=== PATIENT | female | born 1970 | race Caucasian/White ===

== ENCOUNTER 2023-03-21 08:57 | Outpatient (OUT) | payer BC, SELFPAY ==
--- NOTE | 2023-03-21 | XR_ITS ---
The [address] [address] Patient Name: NAN HANNA MRN: [id number] date: 1970 Sex: F Assigned Patient Location: [facility] Current Patient Location: [facility] Accession/Order Number: [id number] Exam Date: 03/21/2023 08:40 Report Date: 03/21/2023 09:29 At the request of: CYNDI CHEW Procedure: XR foot RT min 3V PROCEDURE: XR foot RT min 3V COMPARISON: None. HISTORY: RIGHT FOOT PAIN FINDINGS: BONES:No acute fracture or dislocation. Moderate to severe osteoarthropathy posterior talocalcaneal joint SOFT TISSUES:Negative. No visible soft tissue swelling. EFFUSION:None visible. OTHER: Negative. XR/XR foot RT min 3V IMPRESSION: Moderate to severe osteoarthritis posterior talocalcaneal joint Electronically authenticated by: MARKO BOWDEN Date: 03/21/2023 09:29
== END 2023-03-21 08:58 | disposition home or self-care (01) ==
PROVIDERS: Visit Provider Podiatrist Foot & Ankle Surgery
DX: M79.671 Pain in right foot (principal); M19.071 Primary osteoarthritis, right ankle and foot
CPT/HCPCS: 73630

== ENCOUNTER 2023-05-04 08:52 | Outpatient (OUT) | payer BC, SELFPAY ==
--- NOTE | 2023-05-04 08:59 | XR_ITS ---
The [address] [address] Patient Name: NAN HANNA MRN: [id number] date: 1970 Sex: F Assigned Patient Location: [facility] Accession/Order Number: [id number] Exam Date: 05/04/2023 09:55 Report Date: 05/04/2023 10:12 At the request of: CYNDI CHEW Procedure: XR chest 2V EXAM: XR chest 2V HISTORY: Preop exam COMPARISON: None. TECHNIQUE: PA and lateral views of the chest. FINDINGS: The cardiomediastinal silhouette is normal. No focal consolidation is identified. There is no pneumothorax. No pleural effusion is noted. The osseous structures are intact. XR/XR chest 2V IMPRESSION: No acute cardiopulmonary process. Electronically authenticated by: ELIA SCHMIDT Date: 05/04/2023 10:12
[2023-05-04 09:46] LABS: Basophils Absolute Auto 0.1 10^3/uL (0.0-0.1); Basophils Percent Auto 0.8 % (0.2-2.0); Eosinophils Absolute Auto 0.3 10^3/uL (0.0-0.7); Eosinophils Percent Auto 2.8 % (0.9-7.0); Hematocrit 40.6 % (36.0-48.0); Hemoglobin 13.5 g/dL (12.0-16.0); Immature Granulocytes Pct Auto 0.9 % (0.0-0.5); Lymphocytes Absolute Auto 2.2 10^3/uL (1.2-3.8); Lymphocytes Percent Auto 20.4 % (20.5-60.0); Mean Corpuscular HGB Conc 33.3 g/dL (29.9-35.2); Mean Corpuscular Hemoglobin 31.5 pg (26.7-34.0); Mean Corpuscular Volume 94.6 fL (81.0-99.0); Mean Platelet Volume 10.1 fL (9.5-13.5); Monocytes Absolute Auto 0.7 10^3/uL (0.3-0.8); Neutrophils Absolute Auto 7.2 10^3/uL (1.4-6.5); Neutrophils Percent Auto 68.1 % (43.0-75.0); Platelet Count 292 10^3/uL (150-450); Red Blood Count 4.29 10^6/uL (4.20-5.40); Red Cell Distribution Width 12.9 % (11.0-15.0); White Blood Count 10.6 10^3/uL (4.0-11.0)
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
[2023-05-04 10:02] LABS: INR 1.02; Partial Thromboplastin Time 31.4 sec (22.3-36.2); Prothrombin Time 10.8 sec (9.0-11.6)
[2023-05-04 10:17] LABS: Anion Gap 14.5; Carbon Dioxide 29.1 mmol/L (21.0-32.0); Chloride 102 mmol/L (98-107); Estimated GFR (African America >60 (>=60); Estimated GFR (Non-African Ame >60 (>=60); Glucose 111 mg/dL (74-106); Potassium 4.6 mmol/L (3.5-5.1); Sodium 141 mmol/L (136-145)
== END 2023-05-04 08:53 | disposition home or self-care (01) ==
PROVIDERS: Visit Provider Podiatrist Foot & Ankle Surgery
DX: Z01.810 Encounter for preprocedural cardiovascular examination (principal); Z01.812 Encounter for preprocedural laboratory examination; M19.171 Post-traumatic osteoarthritis, right ankle and foot; M21.171 Varus deformity, not elsewhere classified, right ankle; I48.91 Unspecified atrial fibrillation; I25.10 Atherosclerotic heart disease of native coronary artery without angina pectoris
CPT/HCPCS: 36415; 71046; 80048; 85025; 85610; 85730; G0463

== ENCOUNTER 2023-05-15 11:43 | Observation (INO) | payer BC, SELFPAY ==
[2023-05-04 09:37] VITALS: BP 140/79; PULSE 76; RESP 20; TEMP 36.1; O2SAT 94; BMI 37.9
[2023-05-14] VITALS (22 sets, daily range): BP systolic 96–140; BP diastolic 50–86; PULSE 59–93; RESP 12–20; TEMP 36–36.8; O2SAT 88–99; BMI 37.8; BMI 30.2
--- NOTE | 2023-05-14 | FL_ITS ---
[address] [address] Patient Name: NAN HANNA MRN: [id number] date: 1970 Sex: F Assigned Patient Location: [facility] Current Patient Location: [place] Accession/Order Number: [id number] Exam Date: 05/14/2023 12:29 Report Date: 05/15/2023 08:13 At the request of: CYNDI CHEW Procedure: FL fluoroscopy <1hr NON-READ EXAM: FL fluoroscopy <1hr NON-READ HISTORY: IMAGING IN OR, RIGHT FOOT PAIN TECHNIQUE: FINDINGS: Please see Operative Report. Electronically authenticated by: RADIOLOGIST NO Date: 05/15/2023 08:13
[2023-05-14 09:11] LABS: Basophils Absolute Auto 0.1 10^3/uL (0.0-0.1); Basophils Percent Auto 0.7 % (0.2-2.0); Eosinophils Absolute Auto 0.3 10^3/uL (0.0-0.7); Eosinophils Percent Auto 3.3 % (0.9-7.0); Hemoglobin 12.8 g/dL (12.0-16.0); Immature Granulocytes Abs Auto 0.03 10^3/uL (0.00-0.03); Immature Granulocytes Pct Auto 0.4 % (0.0-0.5); Lymphocytes Absolute Auto 1.8 10^3/uL (1.2-3.8); Lymphocytes Percent Auto 21.9 % (20.5-60.0); Mean Corpuscular HGB Conc 32.8 g/dL (29.9-35.2); Mean Corpuscular Hemoglobin 31.2 pg (26.7-34.0); Mean Corpuscular Volume 95.1 fL (81.0-99.0); Mean Platelet Volume 10.2 fL (9.5-13.5); Monocytes Absolute Auto 0.7 10^3/uL (0.3-0.8); Monocytes Percent Auto 8.3 % (1.7-12.0); Neutrophils Absolute Auto 5.4 10^3/uL (1.4-6.5); Neutrophils Percent Auto 65.4 % (43.0-75.0); Platelet Count 268 10^3/uL (150-450); Red Cell Distribution Width 12.8 % (11.0-15.0); White Blood Count 8.3 10^3/uL (4.0-11.0)
[2023-05-14 09:20] LABS: Glucometer 97 mg/dL (74-106)
[2023-05-14] MEDS: LACTATED RINGER'S SOLUTION 1,000 ML 50 ML IV ×2 (09:36→13:29)
[2023-05-14] MEDS: SCOPOLAMINE 1 MG/3 DAYS TRANSDERM PATCH 1 PATCH TD (09:55)
[2023-05-14] MEDS: CEFAZOLIN SODIUM/DEXTROSE,ISO 2 GM/50 ML PIGGYBACK IV ×2 (11:28→18:20)
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
[2023-05-14] MEDS: THROMBI-GEL SIZE 40 HEMOSTAT 1 EACH TOPICAL (13:15)
[2023-05-14 15:42] LABS: Glucometer 104 mg/dL (74-106)
--- NOTE | 2023-05-14 15:49 | XR_ITS ---
The [address] [address] Patient Name: NAN HANNA MRN: [id number] date: 1970 Sex: F Assigned Patient Location: [facility] Current Patient Location: [place] Accession/Order Number: [id number] Exam Date: 05/14/2023 17:55 Report Date: 05/16/2023 07:23 At the request of: DEIRDRE VO Procedure: XR foot RT min 3V PROCEDURE: XR ankle RT min 3V, XR foot RT min 3V HISTORY: Postop x-ray COMPARISON: XR foot right 03/21/2023 FINDINGS: BONES:Posterior calcaneal osteotomy and realignment. Fusion of the talocalcaneal joint via 3 lag screws. Osteotomy and bone staple repair of base of first metatarsal. Bone harvesting from distal tibia. SOFT TISSUES:Expected postsurgical findings. Images were obtained to cast material which limits evaluation. EFFUSION:None visible. OTHER: Negative. XR/XR foot RT min 3V IMPRESSION: 1. Postoperative surgical changes as detailed above. Electronically authenticated by: GENARO MICHELLE Date: 05/16/2023 07:23
--- NOTE | 2023-05-14 15:49 | XR_ITS ---
The [address] [address] Patient Name: NAN HANNA MRN: [id number] date: 1970 Sex: F Assigned Patient Location: [facility] Current Patient Location: [place] Accession/Order Number: [id number] Exam Date: 05/14/2023 17:55 Report Date: 05/16/2023 07:23 At the request of: DEIRDRE VO Procedure: XR ankle RT min 3V PROCEDURE: XR ankle RT min 3V, XR foot RT min 3V HISTORY: Postop x-ray COMPARISON: XR foot right 03/21/2023 FINDINGS: BONES:Posterior calcaneal osteotomy and realignment. Fusion of the talocalcaneal joint via 3 lag screws. Osteotomy and bone staple repair of base of first metatarsal. Bone harvesting from distal tibia. SOFT TISSUES:Expected postsurgical findings. Images were obtained to cast material which limits evaluation. EFFUSION:None visible. OTHER: Negative. XR/XR ankle RT min 3V IMPRESSION: 1. Postoperative surgical changes as detailed above. Electronically authenticated by: GENARO MICHELLE Date: 05/16/2023 07:23
[2023-05-14] MEDS: HYDROMORPHONE HCL 0.5 MG/0.5 ML SYRINGE IV (15:50)
[2023-05-14] MEDS: OXYCODONE HCL 5 MG TABLET 10 MG PO (16:21)
[2023-05-14] MEDS: LACTATED RINGER'S SOLUTION 1,000 ML 75 ML IV (16:31)
[2023-05-14] MEDS: FLECAINIDE ACETATE 50 MG TABLET 100 MG PO (18:20)
[2023-05-14] MEDS: ENOXAPARIN SODIUM 40 MG/0.4 ML SYRINGE SUBQ (20:57)
[2023-05-14] MEDS: PREGABALIN 75 MG CAPSULE PO (20:57)
[2023-05-14] MEDS: OXYCODONE HCL 5 MG TABLET PO (22:46)
[2023-05-15] VITALS (15 sets, daily range): BP systolic 92–101; BP diastolic 54–58; PULSE 68–91; RESP 18–20; TEMP 36.8–37.3; O2SAT 94–97
[2023-05-15] MEDS: CEFAZOLIN SODIUM/DEXTROSE,ISO 2 GM/50 ML PIGGYBACK IV ×2 (00:50→08:52)
[2023-05-15] MEDS: MORPHINE SULFATE 2 MG/ML SYRINGE 1 MG IV (03:08)
[2023-05-15] MEDS: KETOROLAC TROMETHAMINE 30 MG/ML VIAL IVP ×3 (03:54→20:26)
[2023-05-15] MEDS: FLECAINIDE ACETATE 50 MG TABLET 100 MG PO ×2 (05:52→18:14)
[2023-05-15] MEDS: OXYCODONE HCL 15 MG TABLET PO ×2 (05:55→16:38)
[2023-05-15] MEDS: LACTATED RINGER'S SOLUTION 1,000 ML 50 ML IV (06:01)
--- NOTE | 2023-05-15 08:18 | PM.PN ---
Progress Note: Subjective Subjective Interval history: Patient seen at bedside this a.m. resting somewhat comfortably. POD #1 s/p right subtalar joint fusion, ankle arthroscopy, lateral displacement calcaneal osteotomy, dorsiflexion 1st ray osteotomy, peroneal tendon transfer, modified Brostrom Gandhi lateral ankle stabilization, harvest of distal tibial bone graft, stress examination under intraoperative fluoroscopy, application of short leg splint. DOS 05/14/2023. Patient states that the block worn off overnight with considerable pain overnight despite IV Dilaudid and Toradol. Rated as 10 out of 10 this a.m. primarily at the anterior ankle. Denies any other acute events overnight, denies any other acute lower extremity complaints at this time.. Exam Narrative Exam Narrative: RLE splint left CDI. Vascular: CFT intact to digits. Skin temperature warm symmetric proximal and distal to dressing. No erythema or edema proximal to dressing. Neuro: Light touch sensation intact to digits. Derm: RLE splint left CDI. No open lesions proximal distal dressing. MSK: Active and passive range of motion digits present. Compartments are soft compressible with no pain upon calf or thigh compression. Constitutional Vital Signs, click to edit/add: Last Vital Signs Temp 98.3 F 05/15/23 05:47 Pulse 72 05/15/23 05:47 Resp 20 05/15/23 05:47 BP 101/55 05/15/23 05:47 Pulse Ox 94 L 05/15/23 05:58 O2 Del Method Room Air 05/15/23 05:47 Progress Note: Objective Labs Labs: Short CBC 05/14/23 Range/Units 09:07 WBC 8.3 (4.0-11.0) 10^3/uL Hgb 12.8 (12.0-16.0) g/dL Hct 39.0 (36.0-48.0) % Plt Count 268 (150-450) 10^3/uL Progress Note: A&P Assessment and Plan (1) Osteoarthritis of right ankle and foot: (2) Varus deformity of foot: (3) Displaced intraarticular fracture of right calcaneus, sequela: Plan Patient examined evaluated. All findings discussed with patient all questions answered to patient's satisfaction. Labs and imaging reviewed. RLE dressing to remain CDI until follow-up. Maintain nonweightbearing to right lower extremity. PT eval pending for today SW on board for DC coordination. Patient anticipating DC home. Goal for today is pain control and PT eval. Anticipate DC home once pain controlled with p.o. meds and eval completed. Continue IV Dilaudid 0.5 once as needed for breakthrough pain. aim to control with p.o. oxycodone. Rest per primary. Will continue to follow, call with any questions or concerns.
[2023-05-15] MEDS: ACETAMINOPHEN 500 MG TABLET 1000 MG PO ×2 (08:32→18:06)
[2023-05-15] MEDS: METOPROLOL SUCCINATE 25 MG TAB.ER.24H PO (08:36)
[2023-05-15] MEDS: ASPIRIN 81 MG TABLET.DR PO (08:43)
[2023-05-15] MEDS: SERTRALINE HCL 50 MG TABLET PO (08:44)
[2023-05-15] MEDS: OMEPRAZOLE 40 MG CAPSULE.DR PO (08:44)
[2023-05-15] MEDS: SOLIFENACIN SUCCINATE 10 MG TABLET PO (08:45)
[2023-05-15] MEDS: MAGNESIUM OXIDE 400 MG TABLET PO (08:47)
[2023-05-15] MEDS: PREGABALIN 75 MG CAPSULE PO ×2 (08:52→20:26)
[2023-05-15] MEDS: FERROUS SULFATE 325 MG TABLET PO (08:52)
[2023-05-15] MEDS: HYDROMORPHONE HCL 1 MG/ML CARTRIDGE 0.5 MG IVP (10:32)
--- NOTE | 2023-05-15 11:37 | P.HP_ITS ---
Patient seen and examined, agree with assessment and plan below. Admitted after ankle reconstruction. Significant post-op pain requiring IV medication. Continue PT for NWB. Diagnosis: 1. Post-traumatic OA right ankle 2. PVC 3. Stress incontinence 4. Depression H&P: HPI History of Present Illness Chief complaint: post traumatic osteoarthritis right Narrative: Date/time of exam 05/15/23 1020 This is a 52-year-old female patient of Dr. Correa'shila who underwent a right ankle arthroscopy and subtalar joint fusion yesterday afternoon. She was admitted under the hospitalist service overnight for observation and pain management postoperatively. At the time of my exam the patient is resting in bed visiting with her spouse. Nursing reports that she has been very tearful all morning with very poor pain control with the prescribed oxycodone per the podiatry service. Otherwise she denies any complaints including no chest pain, shortness of breath, dizziness, abdominal pain, or N/V/D. We will order IVP breakthrough pain medication pending pain management review by the podiatry serv ice. Review of Systems ROS Status of ROS 10 or more systems reviewed and unremarkable except as noted in history and below [facility] Medical History (Updated 05/15/23 @ 12:01 by Diann Coley NP) Anxiety ?F41.9 - Anxiety disorder, unspecified (ICD-10) Bronchitis ?J40 - Bronchitis, not specified as acute or chronic (ICD-10) Cardiac arrhythmia ?I49.9 - Cardiac arrhythmia, unspecified (ICD-10) COVID-19 ?U07.1 - COVID-19 (ICD-10) Depression ?F32.A - Depression, unspecified (ICD-10) Displaced intraarticular fracture of right calcaneus, sequela ?S92.061S - Displaced intraarticular fracture of right calcaneus, sequela (ICD-10) Heartburn ?R12 - Heartburn (ICD-10) Menopause ?Z78.0 - Asymptomatic menopausal state (ICD-10) Osteoarthritis of right ankle and foot ?M19.071 - Primary osteoarthritis, right ankle and foot (ICD-10) PAC (premature atrial contraction) ?I49.1 - Atrial premature depolarization (ICD-10) Palpitations ?R00.2 - Palpitations (ICD-10) Peroneal tendinitis ?M76.70 - Peroneal tendinitis, unspecified leg (ICD-10) Postoperative nausea and vomiting ?R11.2 - Nausea with vomiting, unspecified (ICD-10) ?Z98.890 - Other specified postprocedural states (ICD-10) Seasonal allergies ?J30.2 - Other seasonal allergic rhinitis (ICD-10) Stress incontinence ?N39.3 - Stress incontinence (female) (male) (ICD-10) 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, unspecified foot (ICD- 10) Surgical History History of carpal tunnel release ?Z98.890 - Other specified postprocedural states (ICD-10) History of section ?Z98.891 - History of uterine scar from previous surgery (ICD-10) History of cholecystectomy ?Z90.49 - Acquired absence of other specified parts of digestive tract (ICD- 10) History of tubal ligation ?Z98.51 - Tubal ligation status (ICD-10) Family History Mother Family history of cancer Other Family history of lung cancer Social History Within the past year, how often did you have a drink containing alcohol: never Score interpretation: A score less than 3 is consistent with normal alcohol consumption. 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 Highest level of school completed/degree received: high school graduate Gender Identity: female Meds Home Medications and Allergies Home Medications Medication Instructions Recorded Confirmed Type aspirin 81 mg tablet,delayed 81 mg PO DAILY 05/04/23 05/14/23 History release (Adult Aspirin Regimen) cetirizine 10 mg tablet (Zyrtec) 10 mg PO DAILY PRN allergy symptoms 05/04/23 05/14/23 History cholecalciferol (vitamin D3) 125 125 mcg PO DAILY 05/04/23 05/14/23 History mcg (5,000 unit) capsule ferrous sulfate 325 mg (65 mg 325 mg PO DAILY 05/04/23 05/14/23 History iron) tablet (Feosol) flecainide 100 mg tablet 100 mg PO Q12H 05/04/23 05/14/23 History lysine 500 mg capsule 500 mg PO QDAY 05/04/23 05/14/23 History magnesium 200 mg tablet 400 mg PO DAILY 05/04/23 05/14/23 History jvvoqnzy-jbsb-ohnn 8 mg-folic 400 1 tab PO DAILY 05/04/23 05/14/23 History mcg-K 50 mcg-lutein 300 mcg tablet (Centrum Silver Women) omeprazole 40 mg capsule,delayed 40 mg PO DAILY 05/04/23 05/14/23 History release sertraline 50 mg tablet 50 mg PO DAILY 05/04/23 05/14/23 History solifenacin 10 mg tablet (Vesicare) 10 mg PO DAILY 05/04/23 05/14/23 History vitamin B complex (Complex B-100 1 tab PO DAILY 05/04/23 05/14/23 History tablet,extended release) metoprolol succinate 25 mg 25 mg PO DAILY 05/14/23 05/14/23 History tablet,extended release 24 hr (Toprol XL) Allergies Allergy/AdvReac Type Severity Reaction Status Date / Time shellfish derived Allergy Anaphylaxis Verified 05/04/23 09:13 Exam Constitutional Vital Signs, click to edit/add: Last Vital Signs Temp 98.3 F 05/15/23 05:47 Pulse 72 05/15/23 05:47 Resp 20 05/15/23 08:00 BP 101/55 05/15/23 05:47 Pulse Ox 94 L 05/15/23 05:58 O2 Del Method Room Air 05/15/23 05:47 Common normals: no apparent distress, oriented x3, alert and well nourished General appearance: cooperative Orientation/consciousness: Yes awake [facility] Common normals: normocephalic, head/scalp atraumatic, hearing grossly normal bilaterally, external nose normal and moist oral mucous membranes Eye Common normals: PERRL, EOMs intact bilaterally, conjunctivae normal and no scleral icterus Eyelid: eyelids normal Neck & C-Spine Common normals: full ROM, supple and no JVD Chest Common normals: inspection of chest normal Chest: symmetrical chest wall rise Respiratory Common normals: normal respiratory effort, no retractions, no use of accessory muscles and clear to auscultation bilaterally Effort & inspection: able to speak in complete sentences Cardio Common normals: no JVD, regular rate, regular rhythm, S1 normal heart sound, S2 normal heart sound (Snap), no gallops, no clicks, no rub and peripheral pulses 2+ throughout GI Common normals: Normal to inspection, nondistended, normoactive bowel sounds present, soft to palpation, non-tender, no hepatosplenomegaly, no masses and no bruits Bladder/kidney exam: bladder normal to palpation Back & Pelvis Common normals: thoracic and lumbar spine normal to inspection Extremity Common normals: normal capillary refill and no pedal edema General: normal exam except as noted; no clubbing and no cyanosis Right lower extremity: lower leg (Surgical dressing D&I. CMS intact) Neuro [place] Coma Scale: GCS not evaluated Common normals: oriented x3, CN's II-XII intact bilaterally, moves all extremities, no focal motor deficits and no sensory deficits noted Sensorium/orientation: awake and alert Speech: speech normal Psych Common normals: mental status grossly normal, thought process normal, affect normal and activity/motor behavior normal Results Pulse Oximetry Attestation: I have reviewed the pertinent pulse oximetry results. Assessment and Plan Assessment and Plan (1) Osteoarthritis of right ankle and foot: Assessment and Plan: ACUTE * Adm observation * s/p operative repair per Dr Correa on 05/14/23 * Defer WB orders, surgical dressings, pain management to the podiatry service * Will order IVP breakthrough pain med now d/t severe uncontrolled pain pending re-eval of management regimen by the podiatry service (2) Cardiac arrhythmia: Assessment and Plan: CHRONIC * Continue home BB and flecainide * HR well controlled (3) Heartburn: Assessment and Plan: CHRONIC * Continue home PPI (4) Stress incontinence: Assessment and Plan: CHRONIC * Continue home Vesicare (5) Depression: Assessment and Plan: CHRONIC * Continue home sertraliine
--- NOTE | 2023-05-15 11:42 | CM.NOTE ---
Rounds made with Dr. Spain, adjusting medications for better pain control. Dr. Spain will discuss plan of care with Sunny for further recommendations.
[2023-05-15] MEDS: CEFAZOLIN SODIUM 2,000 MG in 0.9 % SODIUM CHLORIDE 50 ML 100 MG IV (16:46)
[2023-05-15] MEDS: ENOXAPARIN SODIUM 40 MG/0.4 ML SYRINGE SUBQ (20:26)
[2023-05-16] MEDS: KETOROLAC TROMETHAMINE 30 MG/ML VIAL IVP ×3 (02:34→14:05)
[2023-05-16] MEDS: LACTATED RINGER'S SOLUTION 1,000 ML 50 ML IV (02:35)
[2023-05-16] MEDS: OXYCODONE HCL 5 MG TABLET PO (04:07)
[2023-05-16 04:10] VITALS: BP 108/61; PULSE 74; RESP 18; TEMP 36.8; O2SAT 91
[2023-05-16 04:56] VITALS: O2SAT 94
[2023-05-16] MEDS: FLECAINIDE ACETATE 50 MG TABLET 100 MG PO (06:03)
[2023-05-16] MEDS: ACETAMINOPHEN 500 MG TABLET 1000 MG PO (06:10)
[2023-05-16 07:52] VITALS: RESP 18
[2023-05-16] MEDS: PREGABALIN 75 MG CAPSULE PO (08:00)
[2023-05-16] MEDS: FERROUS SULFATE 325 MG TABLET PO (08:01)
[2023-05-16] MEDS: MAGNESIUM OXIDE 400 MG TABLET PO (08:03)
[2023-05-16] MEDS: METOPROLOL SUCCINATE 25 MG TAB.ER.24H PO (08:03)
[2023-05-16] MEDS: OMEPRAZOLE 40 MG CAPSULE.DR PO (08:04)
[2023-05-16] MEDS: SOLIFENACIN SUCCINATE 10 MG TABLET PO (08:05)
[2023-05-16] MEDS: SERTRALINE HCL 50 MG TABLET PO (08:05)
--- NOTE | 2023-05-16 08:45 | PM.PN ---
Progress Note: Subjective Subjective Interval history: Patient seen at bedside this a.m. resting comfortably. POD #2 s/p right subtalar joint fusion, ankle arthroscopy, lateral displacement calcaneal osteotomy, dorsiflexion 1st ray osteotomy, peroneal tendon transfer, modified Brostrom Gandhi lateral ankle stabilization, harvest of distal tibial bone graft, stress examination under intraoperative fluoroscopy, application of short leg splint. DOS 05/14/2023. Patient states that pain much more controlled today. Denies any other acute events overnight, denies any other acute lower extremity complaints at this time.. Exam Narrative Exam Narrative: RLE splint left CDI. Vascular: CFT intact to digits. Skin temperature warm symmetric proximal and distal to dressing. No erythema or edema proximal to dressing. Neuro: Light touch sensation intact to digits. Derm: RLE splint left CDI. No open lesions proximal distal dressing. MSK: Active and passive range of motion digits present. Compartments are soft compressible with no pain upon calf or thigh compression. Constitutional Vital Signs, click to edit/add: Last Vital Signs Temp 98.3 F 05/16/23 04:10 Pulse 74 05/16/23 04:10 Resp 18 05/16/23 07:52 BP 108/61 05/16/23 04:10 Pulse Ox 94 L 05/16/23 04:56 O2 Del Method Room Air 05/16/23 04:56 Progress Note: A&P Assessment and Plan (1) Osteoarthritis of right ankle and foot: (2) Cardiac arrhythmia: (3) Heartburn: (4) Stress incontinence: (5) Depression: Plan Patient examined evaluated. All findings discussed with patient all questions answered to patient's satisfaction. Labs and imaging reviewed. RLE dressing to remain CDI until follow-up. Maintain nonweightbearing to right lower extremity. PT jimy LARIOS on board for DC coordination. Anticipate DC home today Remove stovall today Pain control w/ PO oxycodone and toradol PRN. Rest per primary. Stable to d/c from podiatry perspective once stovall removed and able to void Will continue to follow, call with any questions or concerns.
[2023-05-16 09:14] LABS: Basophils Absolute Auto 0.1 10^3/uL (0.0-0.1); Basophils Percent Auto 0.4 % (0.2-2.0); Eosinophils Absolute Auto 0.2 10^3/uL (0.0-0.7); Eosinophils Percent Auto 1.9 % (0.9-7.0); Hematocrit 31.8 % (36.0-48.0); Hemoglobin 10.5 g/dL (12.0-16.0); Immature Granulocytes Abs Auto 0.04 10^3/uL (0.00-0.03); Immature Granulocytes Pct Auto 0.3 % (0.0-0.5); Lymphocytes Absolute Auto 1.9 10^3/uL (1.2-3.8); Lymphocytes Percent Auto 16.3 % (20.5-60.0); Mean Corpuscular Hemoglobin 31.6 pg (26.7-34.0); Mean Corpuscular Volume 95.8 fL (81.0-99.0); Mean Platelet Volume 10.5 fL (9.5-13.5); Monocytes Absolute Auto 0.9 10^3/uL (0.3-0.8); Monocytes Percent Auto 7.8 % (1.7-12.0); Neutrophils Absolute Auto 8.4 10^3/uL (1.4-6.5); Neutrophils Percent Auto 73.3 % (43.0-75.0); Platelet Count 221 10^3/uL (150-450); Red Blood Count 3.32 10^6/uL (4.20-5.40); White Blood Count 11.5 10^3/uL (4.0-11.0)
[2023-05-16 09:32] LABS: Anion Gap 10.9; BUN Creatinine Ratio 12.2; Calcium 8.1 mg/dL (8.5-10.1); Carbon Dioxide 27.9 mmol/L (21.0-32.0); Chloride 104 mmol/L (98-107); Estimated GFR (African America >60 (>=60); Estimated GFR (Non-African Ame >60 (>=60); Glucose 160 mg/dL (74-106); Potassium 3.8 mmol/L (3.5-5.1); Sodium 139 mmol/L (136-145)
--- NOTE | 2023-05-16 10:11 | CM.NOTE ---
rounding with dr. gillespie, discussed importance of non-weight bearing. Plan to discharge this afternoon.
[2023-05-16 10:26] VITALS: O2SAT 96
--- NOTE | 2023-05-16 16:06 | P.DS_ITS ---
Patient seen and examined, agree with assessment and plan below. Did well after surgery. Pain controlled with medication. Moving well with PT and able to remain NWB. Discharged home in stable condition. F/u with podiatry. Diagnosis: 1. Post-traumatic OA right ankle 2. PVC 3. Incontinence 4. Depression DS: Providers Provider Date of admission: 05/15/23 11:43 Primary care physician: RIKY DENT Consults: 05/14/23 15:49 Consult to Production Checker Routine Reason for consult:: Care Home Other reason:: Possible SNF, anticipate DC home Physical Therapy Eval and Treat Routine Reason for consultation: postop gait eval/fall risk, nwb rle Discharging clinician: Diann Coley DS: Diagnosis Discharge Diagnosis (1) Osteoarthritis of right ankle and foot: (2) Cardiac arrhythmia: (3) Heartburn: (4) Stress incontinence: (5) Depression: DS: Summary Hospital Course Hospital Course: The patient was admitted to observation to the hospitalist service after Dr. Correa performed a right ankle reconstructive surgery. Her pain was initially poorly controlled but after adjustments were made to her dressings and pain management her pain improved. The patient is able to ambulate and maintain nonweightbearing to the affected ankle per instructions. As she is stable and her pain is adequately controlled, she is being discharged home. She should follow-up with Dr. Correa is recommended in his discharge instructions. Time Spent with Patient Time attestation: Total time spent providing and/or coordinating discharge services: Time spent: less than 30 minutes Specific discharge activities: Physical exam, discussion of discharge plan, questions answered. Exam Constitutional Vital Signs, click to edit/add: Last Vital Signs Temp 98.3 F 05/16/23 04:10 Pulse 74 05/16/23 04:10 Resp 18 05/16/23 07:52 BP 108/61 05/16/23 04:10 Pulse Ox 96 05/16/23 10:26 O2 Del Method Room Air 05/16/23 10:26 Common normals: no apparent distress, oriented x3 and alert General appearance: cooperative Orientation/consciousness: Yes awake [facility] Common normals: normocephalic and head/scalp atraumatic Eye Common normals: PERRL, EOMs intact bilaterally, conjunctivae normal and no scleral icterus Respiratory Common normals: normal respiratory effort, no use of accessory muscles and clear to auscultation bilaterally Effort & inspection: able to speak in complete sentences and symmetric chest movement Cardio Common normals: no JVD, regular rate, regular rhythm, S1 normal heart sound, S2 normal heart sound and peripheral pulses 2+ throughout GI Common normals: Normal to inspection, nondistended, normoactive bowel sounds present, soft to palpation and non-tender Bladder/kidney exam: bladder normal to palpation Extremity Common normals: normal to inspection, full ROM, normal capillary refill and no pedal edema General: no clubbing and no cyanosis Neuro Common normals: moves all extremities, no focal motor deficits and no sensory deficits noted Speech: speech normal Psych Common normals: mental status grossly normal and activity/motor behavior normal DS: Data Data Completed and Pending Labs on day of discharge: Labs from last 24 hours 05/16/23 09:04 WBC 11.5 H RBC 3.32 L Hgb 10.5 L Hct 31.8 L MCV 95.8 MCH 31.6 MCHC 33.0 RDW 13.0 Plt Count 221 MPV 10.5 Neut % (Auto) 73.3 Lymph % (Auto) 16.3 L Brooks % (Auto) 7.8 Eos % (Auto) 1.9 Baso % (Auto) 0.4 Neut # (Auto) 8.4 H Lymph # (Auto) 1.9 Brooks # (Auto) 0.9 H Eos # (Auto) 0.2 Baso # (Auto) 0.1 Abs Immat Gran (auto) 0.04 H Imm/Tot Granulo (auto) 0.3 Sodium 139 Potassium 3.8 Chloride 104 Carbon Dioxide 27.9 Anion Gap 10.9 BUN 11.0 Creatinine 0.90 Est GFR ( Amer) >60 Est GFR (Non-Af Amer) >60 BUN/Creatinine Ratio 12.2 Glucose 160 H Calcium 8.1 L Discharge Plan Discharge Disposition: Home, Self-Care Condition: Good Discharge Medications: New aspirin [Adult Low Dose Aspirin] 81 mg tablet,delayed release (DR/EC) 81 mg PO BID 30 Days Qty: 60 0RF cefadroxil 500 mg capsule 500 mg PO BID 3 Days Qty: 6 0RF alendronate [Fosamax] 70 mg tablet 70 mg PO QWEEK 84 Days Qty: 12 0RF oxycodone-acetaminophen [Percocet] 5-325 mg tablet 1 tab PO Q6H PRN (Reason: pain) 7 Days Qty: 28 0RF ondansetron 4 mg tablet,disintegrating 4 mg PO Q8H PRN (Reason: nausea and vomiting) 5 Days Qty: 15 0RF sennosides [Senna Laxative] 8.6 mg tablet 8.6 mg PO DAILY PRN (Reason: constipation) 7 Days Qty: 7 0RF tizanidine 2 mg tablet 2 mg PO TID PRN (Reason: muscle spasticity) 7 Days Qty: 21 0RF Continued solifenacin [Vesicare] 10 mg tablet 10 mg PO DAILY sertraline 50 mg tablet 50 mg PO DAILY aspirin [Adult Aspirin Regimen] 81 mg tablet,delayed release (DR/EC) 81 mg PO DAILY omeprazole 40 mg capsule,delayed release(DR/EC) 40 mg PO DAILY flecainide 100 mg tablet 100 mg PO Q12H Centrum Silver Women 8 mg iron-400 mcg-50 mcg tablet 1 tab PO DAILY ferrous sulfate [Feosol] 325 mg (65 mg iron) tablet 325 mg PO DAILY lysine 500 mg capsule 500 mg PO QDAY cholecalciferol (vitamin D3) 125 mcg (5,000 unit) capsule 125 mcg PO DAILY cetirizine [Zyrtec] 10 mg tablet 10 mg PO DAILY PRN (Reason: allergy symptoms) magnesium 200 mg tablet 400 mg PO DAILY Complex B-100 Tablet Extended Release 1 tab PO DAILY metoprolol succinate [Toprol XL] 25 mg tablet extended release 24 hr 25 mg PO DAILY Patient Instructions: Cefadroxil (By mouth), Aspirin (By mouth), Laxative, Stimulant (By mouth), Alendronate (By mouth) (Fosamax, Binosto), Ondansetron (By mouth, Into the mouth), Tizanidine (By mouth), Narcotic-Analgesic/Acetaminophen (By mouth) Activity Restrictions/Additional Instructions: - Remain NWB to affected leg until changed by Dr Correa Forms: Portal Instructions Follow Up Appointments: Follow up appt. with Dr. Correa on May.23 @ 10:30am office address: [address] [place] [address] Dr Luna [place] office #: [phone] Discharge Date/Time: 05/16/23 14:25
== END 2023-05-16 14:25 | disposition home or self-care (01) ==
LOC: SURGOUT 12:33 → MS 12:33
PROVIDERS: Podiatrist Foot & Ankle Surgery; Admitting Provider Nurse Practitioner; Visit Provider Nurse Practitioner
PROC: (CPT 20902; principal; 2023-05-14 10:30)
DX: M19.171 Post-traumatic osteoarthritis, right ankle and foot (principal); M21.171 Varus deformity, not elsewhere classified, right ankle; M21.071 Valgus deformity, not elsewhere classified, right ankle; M76.71 Peroneal tendinitis, right leg; M25.371 Other instability, right ankle; S92.061S Displaced intraarticular fracture of right calcaneus, sequela; I49.3 Ventricular premature depolarization; N39.3 Stress incontinence (female) (male); R12 Heartburn; F32.A Depression, unspecified; F41.9 Anxiety disorder, unspecified; Z86.16 Personal history of COVID-19; Z78.0 Asymptomatic menopausal state; Z90.49 Acquired absence of other specified parts of digestive tract; Z98.891 History of uterine scar from previous surgery; Z98.51 Tubal ligation status; Z98.890 Other specified postprocedural states; Z79.82 Long term (current) use of aspirin; Z79.899 Other long term (current) drug therapy; V89.2XXS Person injured in unspecified motor-vehicle accident, traffic, sequela
CPT/HCPCS: 20902; 27691; 27698; 28300; 28306; 28725; 29898; 77071; 36415; 64445; 73610; 73630; 76000; 80048; 82948; 85025; 88304; 94667; 94668; 94761; 96365; 96366; 96372; 96375; 96376; 97161; C1713; G0378; J1170; J2704

== ENCOUNTER 2023-06-06 10:38 | Outpatient (OUT) | payer BC, SELFPAY ==
--- NOTE | 2023-06-06 | XR_ITS ---
The [address] [address] Patient Name: NAN HANNA MRN: [id number] date: 1970 Sex: F Assigned Patient Location: [facility] Current Patient Location: Accession/Order Number: [id number] Exam Date: 06/06/2023 11:10 Report Date: 06/07/2023 07:52 At the request of: CYNDI CHEW Procedure: XR foot RT min 3V PROCEDURE: XR foot RT min 3V HISTORY: RIGHT FOOT PAIN COMPARISON: XR foot right 05/14/2023 FINDINGS: BONES:Posterior calcaneal osteotomy and repair. Mechanical fusion of the talocalcaneal joint. Osteotomy and bone staple repair of first metatarsal. No acute fracture dislocation. Prior bone harvesting from distal tibia. SOFT TISSUES:Mild soft tissue swelling surrounding the foot. Cast material has been removed. EFFUSION:None visible. OTHER: Negative. XR/XR foot RT min 3V IMPRESSION: 1. Stable surgical changes without evidence of hardware failure or change in alignment. Electronically authenticated by: GENARO MICHELLE Date: 06/07/2023 07:52
--- OUTSIDE RECORDS SUMMARY | 2023-06-06 10:48 | XMS_ITS | CCD ---
Author Name Unknown Address [address] [place] [address] Organization [facility] Care Team Providers Care Oil Expeller Name Role Phone Salima Gilman Unavailable Unavailable Salima Gilman Unavailable UnavailChristian Kessler Unavailable Unavailable Salima Gilman A Unavailable Unavailabl e Priscilla Leahy Unavailable Unavailable Maday Schmitz Unavailable Unavailable Salima Gilman Unavailable Unava ilable Celi Barrett Unavailable Unavailable Priscilla Leahy Unavailable Unavailable Ciaccia DO Simone Unavailable Unavailable Rell WALL Luna Unavailable Unavailable Salima Gilman MD Unavailable Unavailab Maday Bower Unavailable Unavaila ble Salima Gilman Unavailable Unavailabl e Celi Barrett Unavailable Unavailable Priscilla Leahy M Unavailable Unavailable Celi Barrett Unavailable Unavailable Priscilla Leahy Unavailable Unavailable Salima Gilman Unavailable [phone] Unavailable Unavailable SAMARA ROE Referring Unavailable GERRY SALMERON Primary Care Unavailable SALIMA GILMAN Primary Care Physician Kayla Dent Primary Care Physician [phone] CAMPBELL HERNANDEZ Consulting Unavailable KAYLA DENT Primary Care Unavailable CINTHIA ., MAGDA Admitting Unavailable CINTHIA ., MAGDA Attending Unavailable MARKO GARY Consulting Unavailable BONY SOLARES Consulting Unavailable CINTHIA ., MAGDA Consulting Unavailable Kayla Dent Unavailable Unavailable Unavailable Unavailable Kayla Dent Unavailable Mecca, Federico Unavailable Skip Kelly Unavailable Unavailable Wing, Federico Referring Unavailable Wing, Federico Attending Unavailable Olena, Dr. Kayla Hassan Primary Care Unavailab andree Gilman, Dr. Salima Myles Primary Care U [facility], MsFaby Winn Attending Unavailable Kalina, Dr. Salima Myles [facility], MsFaby Winn Attending Unavailable Olena, Dr. Kayla Hassan Primary Care Unavailab le Federico Wing Attending Unavailable Leticia, Skip Attending Unavailable Skip Kelly Admitting Unavailable Olena, Dr. Kayla Hassan Referring Unavailab andree Dent, Dr. Kayla Hassan Primary Care Unavailab andree WING, MD FEDERICO MANSFIELD Referring Unavailabl e MECCA, MD FEDERICO MANSFIELD Attending Unavailprecious Dent, Dr. Kayla Hassan Primary Care Unavailab andree Dent, Dr. Kayla Hassan Primary Care Unavailab andree Dent, Dr. Kayla Hassan Primary Care Unavailab andree Dent, Dr. Kayla Hassan Primary Care Unavailab andree HINSON, SEISMIC COMPUTER JOSELOJOHN HOUSTON Attending Unavailable SINCERE, SEISMIC COMPUTER JOSELO CELSO Referring Unavailable Carlos, Dr. Skip Smith Referring [facility] Kalina, Dr. Salima Myles [facility] MECCA, MD FEDERICO MANSFIELD Attending Unavailprecious WING, MD FEDERICO MANSFIELD Referring Unavailprecious Dent, Dr. Kayla Hassan Primary Care Unavailab andree WING, MD FEDERICO MANSFIELD Attending Unavailabl e MECCA, MD FEDERICO MANSFIELD Referring Unavailprecious Dent, Dr. Kayla Hassan Primary Care Unavailab andree WING, MD FEDERICO MANSFIELD Attending Unavailabl e MECCA, MD FEDERICO MANSFIELD Referring Unavailabl e MECCA, MD FEDERICO MANSFIELD Attending Unavailprecious Dent, Dr. Kayla Hassan Primary Care UnavailKayla Kate DO Primary Care Provider Kayla Dent DO Primary Care Provider EVIE AGUDELO Attending Unavailable KAYLA DENT Primary Care Unavailable Mecca, Federico Admitting Unavailable Wing, Federico Attending Unavailable Wing, Federico Referring Unavailable Skip Gonzalez. Admitting Unavaila Skip Oconnor. Attending Unavaila ble Skip Gonzalez. Referring Unavaila CYNDI Dunn Admitting Unavailable CYNDI CHEW Attending Unavailable CYNDI CHEW Referring Unavailable Kayla Dent Admitting Unavailable Kayla Dent Attending Unavailable Kayla Dent Referring Unavailable Vincent Pan Attending Unavailable CYNDI CHEW Attending Unavailable CYNDI CHEW Referring Unavailable Luna DICKINSON Attending Unavailable NONE, XXXX Referring Unavailable Skip Gonzalez. Admitting Unavaila Skip Oconnor. Attending Unavaila ble Kayla Dent Referring Unavailable Wing, Federico Admitting Unavailable Wing, Federico Attending Unavailable Wing, Federico Referring Unavailable JOSELO IHNSON Referring Unavaila KAYLA Lai Primary Care Unavailable Kayla Dent DO Primary Care Provider Unav ailable Allergies Allergy Classification Reported Allergen(s) Allergy Type Date of Onset Reaction(s) Facility Fish (7 sources) shellfish, unspecified Food Allergy [facility] Work Phone: (20 sources) shellfish, unspecified; Translations: [shellfish] food allergy Hives, Angioedema [facility] Repository (1 source) Shellfish Drug allergy (disorder) 3 [facility] Repository (8 sources) Shellfish; Translations: [shellfish] Drug allergy 3 [facility]al (disorder), Angioedema, Hives [facility] (1 source) Shellfish Facial Swelling, Hives [facility] (2 sources) SHELLFISH CONTAINING PRODUCTS; Translations: [SHELLFISH CONTAINING PRODUCTS] Propensity to adverse reactions to food (disorder) 3 [facility] 3 Repository Medications Current Medications Medication Drug Class(es) Dates Sig (Normalized) Sig (Original) aspirin 81 mg delayed release oral tablet (19 sources) Platelet Aggregation Inhibitor, Nonsteroidal Anti-inflammatory Drug Start: 07-12-2022 take 1 tablet by mouth once daily aspirin 81 mg Oral EC Tab 81 mg = 1 tab(s), Oral, Daily, # 30 tab(s), Refills(s) 3, Pharmacy: [id number], 152, cm, 04/08/23 22:25:00 EDT, Height/Length Dosing, 86.5, kg, 09/23/22 22:25:00 EDT, Weight Dosing Start Date: 12/24/22 Status: Ordered Aspirin Low Dose ; 81 orally once a day Quantity: 0 Refills: 0 Ordered: 22-Aug-2022 Olga Reyes Generic Substitution Allowed cetirizine hydrochloride 10 mg oral capsule (20 sources) Histamine-1 Receptor Antagonist take 1 capsule by mouth once daily at bedtime cetirizine (ZyrTEC) 10 mg capsule Take 1 capsule (10 mg) by mouth once daily at bedtime. 0 Active ferrous sulfate 325 mg delayed release oral tablet (13 sources) ferrous sulfate 325 (65 Fe) MG EC tablet Take 1 capsule twice daily 0 Active take 1 tablet by mouth twice raffaele ly Ferrous Sulfate 325 (65 Fe) MG Oral Tablet TAKE 1 TABLET TWICE DAILY. Quantity: 0 Refills: 0 Ordered: 18-Aug-2022 DO Active take 2 tablets by mouth once raffaele ly ferrous sulfate 200 mg (65 mg elemental iron) oral tablet ; 2 tab(s) orally once a day Quantity: 0 Refills: 0 Ordered: 02-Sep-2020 Pratima Lisa Generic Substitution Allowed flecainide acetate 100 mg oral tablet (10 sources) Antiarrhythmic Start: 03-09-2023 take 1 tablet by mouth every twelve hours flecainide (Tambocor) 100 mg tablet Take 1 tablet (100 mg) by mouth every 12 hours. 0 03/09/2023 Active Start: 08-25-2022 flecainide 50 mg oral tablet ; 1 tab(s) orally 2 times a day on 08/25 and 08/26 then increase to 1.5 tablets 2 times a day starting 08/27/22 Quantity: 90 Refills: 5 Ordered: 25-Aug-2022 Kayla Shaw Start: 25-Aug-2022 Generic Substitution Allowed take 1 tablet by sydni th once daily Flecainide Acetate 100 MG Oral Tablet TAKE 1 TABLET EVERY 12 HOURS DAILY. Quantity: 180 Refills: 3 Ordered: 20-Sep-2022 Federico Wing MD Active Increased dose to 100mg. Patient would like new script please lysine 1000 mg oral tablet (20 sources) take 1 tablet by mouth once daily lysine 1,000 mg tablet Take 1 tablet (1,000 mg) by mouth once daily. 0 Active magnesium oxide 400 mg oral tablet (16 sources) Start: 08-25-2022 take 1 tablet by mouth once daily magnesium oxide 400 mg oral tablet ; 1 tab(s) orally once a day Quantity: 0 Refills: 0 Ordered: 25-Aug-2022 Kayla Shaw Start: 25-Aug-2022 Generic Substitution Allowed Start: 06-23-2021 take 2 tablets by mo uth twice daily Magnesium Oxide 400 MG Oral Tablet 2 tablets twice a day Quantity: 90 Refills: 3 Ordered: 12-Jul-2021 Samara Roe MD Start : 23-Jun-2021 Active Start: 05-11-2021 take 1 tablet by sydni th twice daily Magnesium Oxide 400 MG Oral Tablet TAKE 1 TABLET TWICE DAILY. Quantity: 180 Refills: 3 Ordered: 11-May-2021 Samara Roe MD Start : 11-May-2021 Active new order take 1 capsule by mo uth once daily magnesium oxide 400 mg magnesium capsule Take 1 capsule (400 mg) by mouth once daily. 0 Active 24 hr metoprolol succinate 25 mg extended release oral tablet (20 sources) beta-Adrenergic Claudia Start: 03-12-2023 take 1 tablet by mouth once daily metoprolol succinate XL (Toprol-XL) 25 mg 24 hr tablet Take 1 tablet (25 mg) by mouth once daily. 0 03/12/2023 Active Start: 06-23-2021 take 1 tablet by sydni th once daily metoprolol 25 mg ER Tab 25 mg = 1 tab(s), Oral, Daily, # 30 tab(s), Refills(s) 3, Pharmacy: [id number], 152, cm, 07/12/22 15:54:00 EST, Height/Length Dosing, 83.4, kg, 07/12/22 15:54:00 EST, Weight Dosing Start Date: 07/12/22 Status: Ordered Multivitamin preparation (2 sources) take 1 tablet by sydni th once daily B Complex 50 oral tablet, extended release ; 1 tab(s) orally once a day Quantity: 0 Refills: 0 Ordered: 02-Sep-2020 Pratima Lisa Generic Substitution Allowed take 1 tablet by mouth once corky y Multiple Vitamins oral tablet ; 1 tab(s) orally once a day Quantity: 0 Refills: 0 Ordered: 7-Mar-2023 Olga Reyes Generic Substitution Allowed multivitamin tablet (3 sources) take 1 tablet by mouth once daily multivitamin tablet Take 1 tablet by mouth once daily. 0 Active omeprazole 40 mg delayed release oral capsule (18 sources) Proton Pump Inhibitor Start: 3 take 1 capsule by mouth once daily omeprazole 40 mg Cap-DR 40 mg = 1 cap(s), Oral, Daily, Refills(s) 0 Start Date: 07/14/22 Status: Ordered sertraline 50 mg oral tablet (20 sources) Serotonin Reuptake Inhibitor Start: 0 take 1 tablet by mouth once daily sertraline (Zoloft) 50 mg tablet Indications: Labile mood Take 1 tablet (50 mg) by mouth once daily. 90 tablet 0 09/07/2022 Active Start: 08-25-2019 take 1 tablet by sydni th once daily Sertraline HCl - 25 MG Oral Tablet TAKE 1 TABLET DAILY. Quantity: 30 Refills: 5 Salima Gilman MD Start : 25-Aug-2019 Active solifenacin succinate 5 mg oral tablet (16 sources) Cholinergic Muscarinic Antagonist Start: 07-04-2022 take 1 tablet by mouth once daily Vesicare 5 mg Tab 5 mg = 1 tab(s), Oral, Daily, Refills(s) 0 Start Date: 07/14/22 Status: Ordered take 1 tablet by mouth once corky y solifenacin (VESIcare) 10 mg tablet Take 1 tablet (10 mg) by mouth once daily. Swallow tablet whole; do not crush, chew, or split. 0 Active VITAMIN B COMPLEX ORAL (1 source) take 1 tablet by sydni th once daily VITAMIN B COMPLEX ORAL Take 1 tablet by mouth once daily. 0 Active Completed/Discontinued Medications Medication Drug Class(es) Dates Sig (Normalized) Sig (Original) acetaminophen 325 mg / HYDROcodone bitartrate 5 mg oral tablet (13 sources) Opioid Agonist Start: 08-30-2020 take 1 tablet by mouth every eight hours HYDROcodone-Acetami nophen 5-325 MG Oral Tablet TAKE 1 TABLET Every 8 hours Quantity: 10 Refills: 0 Ordered: 18-Apr-2021 Luna Zacarias PA-C Start : 18-Apr-2021 Active azithromycin 250 mg oral tablet (2 sources) Macrolide Antimicrobial Start: 04-30-2020 take 2 tablets by mouth once daily, then take 1 tablet by mouth, then take 1 tablet by mouth once daily Azithromycin 250 MG Oral Tablet TAKE 2 TABLETS ON DAY 1 THEN TAKE 1 TABLET A DAY FOR 4 DAYS. Quantity: 1 Refills: 0 Salima Gilman MD Start : 30-Apr-2020 Active 6 Tablet Pack benzonatate 100 mg oral capsule (4 sources) Non-narcotic Antitussive Start: 07-12-2021 Benzonatate 100 MG Oral Capsule May take one or two tablets TID prn cough Quantity: 30 Refills: 2 Ordered: 12-Jul-2021 Barbara Harry PA-C Start : 12-Jul-2021 Active betamethasone 0.5 mg/ml / clotrimazole 10 mg/ml topical cream (1 source) Azole Antifungal, Corticosteroid Start: 01-05-2020 Clotrimazole-Betame thasone 1-0.05 % External Cream APPLY AND RUB IN A THIN FILM TO AFFECTED AREAS TWICE DAILY.(AM AND PM). Quantity: 1 Refills: 1 Salima Gilman MD Start : 05-Jan-2020 Active 15 GM Tube cholecalciferol 0.05 mg oral tablet (20 sources) Vitamin D End: 04-16-2023 take 1 tablet by mouth once daily cholecalciferol (Vitamin D-3) 50 MCG (2000 UT) tablet Take 1 tablet (2,000 Units) by mouth once daily. 0 04/16/2023 Discontinued (Med List Cleanup) take 1 tablet by mouth once corky y cholecalciferol (Vitamin D3) 5,000 Units tablet Take 1 tablet (5,000 Units) by mouth once daily. 0 Active take 1 capsule by mouth once raffaele ly Vitamin D3 125 MCG (5000 UT) Oral Capsule 1 capsule daily Quantity: 0 Refills: 0 Ordered: 18-Aug-2022 DO Active take 1 capsule by mouth once raffaele ly Vitamin D3 1000 intl units (25 mcg) oral capsule ; 1 cap(s) orally once a day Quantity: 0 Refills: 0 Ordered: 02-Sep-2020 Pratima Lisa Generic Substitution Allowed diazePAM 2 mg oral tablet (7 sources) Benzodiazepine Start: 09-20-2022 End: 04-16-2023 diazePAM (Valium) 2 mg tablet TAKE 1 TABLET BY MOUTH 30 MINUTES PRIOR TO MRI APPOINTMENT 0 09/20/2022 04/16/2023 Discontinued (Med List Cleanup) [id number] 0.3 ml EPINEPHrine 1 mg/ml auto-injector (20 sources) alpha-Adrenergic Agonist, beta-Adrenergic Agonist, Catecholamine Start: 06-30-2019 EPINEPHrine 0.3 MG/0.3ML Injection Solution Auto-injector INJECT 0.3ML INTRAMUSCULARLY DIRECTED. Quantity: 2 Refills: 3 Ordered: 21-Dec-2020 Salima Gilman MD Start : 30-Jun-2019 Active Start: 06-30-2019 EPINEPHrine 0. 3 MG/0.3ML Injection Solution Auto-injector INJECT 0.3ML INTRAMUSCULARLY DIRECTED. Quantity: 2 Refills: 3 Salima Gilman MD Start : 30-Jun-2019 Active 2 Unit Pen EPINEPHrine 0.3 mg injectable kit ; 0.3 milliliter(s) injectable once a day, As Needed DIRECTED Quantity: 0 Refills: 0 Ordered: 02-Sep-2020 Pratima Lisa Generic Substitution Allowed fluconazole 150 mg oral tablet (20 sources) Azole Antifungal Start: 11-23-2020 take 1 tablet by mouth once Fluconazole 150 MG Oral Tablet TAKE 1 TABLET 1 TIME ONLY. Quantity: 1 Refills: 3 Ordered: 23-Nov-2020 Salima Gilman MD Start : 23-Nov-2020 Active fluticasone propionate 0.05 mg/actuat metered dose nasal spray (14 sources) Corticosteroid Start: 04-26-2020 take 1 spray(s) nasal route twice daily Fluticasone Propionate 50 MCG/ACT Nasal Suspension USE 1 SPRAY INTO EACH NOSTRIL TWICE A DAY Quantity: 16 Refills: 0 Ordered: 05-Jun-2020 Maday Salvador Start : 05-Jun-2020 Active Iron Complex Oral Capsule (19 sources) take 1 capsule by mouth twice daily Iron Complex Oral Capsule Take 1 capsule twice daily Quantity: 0 Refills: 0 Ordered: 11-May-2021 DO Active Magnesium (4 sources) take 1 tablet by mouth once daily Magnesium 400 MG Oral Tablet 1 tab qd Quantity: 30 Refills: 0 Ordered: 20-Sep-2022 DO Active methylPREDNISolone 4 mg oral tablet (2 sources) Corticosteroid Start: 04-26-2020 methylPREDNISolone 4 MG Oral Tablet Therapy Pack Take as directed per pharmacy Quantity: 1 Refills: 1 Maday Salvador Start : 26-Apr-2020 Active 21 Tablet Pack Multivitamin TABS (20 sources) Multivitamin TAB S TAKE 1 TABLET DAILY. Quantity: 0 Refills: 0 Ordered: 11-May-2021 DO Active pimecrolimus 10 mg/ml topical cream (2 sources) Calcineurin Inhibitor Immunosuppressant Start: 01-19-2020 Pimecrolimus 1 % External Cream APPLY A THIN LAYER TO AFFECTED AREA(S) AND RUB IN WELL TWICE DAILY. Quantity: 1 Refills: 0 Priscilla Leahy MD Start : 19-Jan-2020 Active 30 GM Tube Probiotic CAPS (15 sources) Probiotic CAPS MENOFIT PROBIOTIC 2 CAPSULES DAILY Quantity: 0 Refills: 0 Ordered: 18-Aug-2022 DO Active Probiotic CAPS ( Provitalize) Take 2 caps daily Quantity: 0 Refills: 0 Ordered: 23-Jun-2021 DO Active 24 hr tolterodine tartrate 4 mg extended release oral capsule (20 sources) Cholinergic Muscarinic Antagonist Start: 08-27-2017 take 1 capsule by mouth once daily Tolterodine Tartrate ER 4 MG Oral Capsule Extended Release 24 Hour TAKE 1 CAPSULE Daily Quantity: 90 Refills: 3 Ordered: 19-Aug-2021 Salima Gilman MD Start : 27-Aug-2017 Active Start: 08-27-2017 take 1 capsule by mo [facility] every twenty-four hours Tolterodine Tartrate ER 4 MG Oral Capsule Extended Release 24 Hour Quantity: 30 Refills: 0 Start : 27-Aug-2017 Active Vitamin B Complex Oral Tablet (20 sources) take 1 tablet by sydni once daily Vitamin B Complex Oral Tablet TAKE 1 TABLET DAILY. Quantity: 0 Refills: 0 Ordered: 11-May-2021 DO Active Problems Active Problems Problem Classification Problem Date Documented Da te Episodic/Chronic Abdominal pain (20 sources) Pain in female pelvis; Translations: [Unspecified symptom associated with female genital organs] Onset: 04-10-2023 04-10-2023 Episodic Acute bronchitis (20 sources) Acute bronchitis; Translations: [Acute bronchitis] Onset: 04-10-2023 04-10-2023 Episodic Allergic reactions (20 sources) Shellfish allergy; Translations: [Food allergy] Onset: 04-13-2023 04-13-2023 Episodic Cardiac dysrhythmias (20 sources) Ventricular premature beats; Translations: [Other premature beats] Onset: 07-05-2022 08-22-2022 Chronic Cardiac dysrhythmias (20 sources) Palpitations; Translations: [Palpitations] Onset: 04-10-2023 08-22-2022 Episodic Conditions associated with dizziness or vertigo (2 sources) Lightheadedness; Translations: [Dizziness and giddiness] 08-22-2022 Episodic Genitourinary symptoms and ill-defined conditions (2 sources) Stress incontinence (female) (male); Translations: [Unspecified urinary incontinence] Onset: 07-05-2022 Chronic Immunizations and screening for infectious disease (20 sources) Patient encounter status; Translations: [Other specified vaccination] Episodic Lymphadenitis (20 sources) Lymphadenopathy; Translations: [Enlargement of lymph nodes] Onset: 04-10-2023 04-10-2023 Episodic Menopausal disorders (20 sources) Menopausal symptom; Translations: [Symptomatic menopausal or female climacteric states] Onset: 04-10-2023 04-10-2023 Chronic Menstrual disorders (1 source) Missed period; Translations: [Missed menses] Chronic Mood disorders (4 sources) Mood swings; Translations: [Labile mood] Chronic Mood disorders (20 sources) Mood swings; Translations: [Emotional lability] Onset: 04-10-2023 04-10-2023 Episodic Mood disorders (1 source) Mood disorders; Translations: [DEPRESSION UNSPECIFIED] Onset: 07-05-2022 Mycoses (6 sources) Candidal intertrigo; Translations: [Candidiasis of skin and nails] Episodic Nonmalignant breast conditions (17 sources) Breast lump; Translations: [Lump or mass in breast] Onset: 04-10-2023 04-10-2023 Episodic Nonspecific chest pain (8 sources) Chest pain, unspecified; Translations: [Chest pain] Onset: 06-29-2022 Episodic Comment on above: CHEST PAIN Other aftercare (7 sources) Drug therapy finding; Translations: [Long-term (current) use of other medications] Episodic Other aftercare (3 sources) Taking high risk medication; Translations: [Other technician terminal and repeater (current) drug therapy] Onset: 04-13-2023 04-16-2023 Episodic Other aftercare (2 sources) Other technician terminal and repeater (current) drug therapy; Translations: [Other technician terminal and repeater (current) drug therapy] Onset: 04-13-2023 Episodic Other and unspecified benign neoplasm (20 sources) Melanocytic nevus; Translations: [Benign neoplasm of skin, site unspecified] Onset: 04-10-2023 04-10-2023 Episodic Other connective tissue disease (3 sources) Hand pain; Translations: [Pain in limb] Episodic Other female genital disorders (1 source) Postcoital bleeding; Translations: [PCB (post coital bleeding)] Chronic Other female genital disorders (1 source) Polyp of cervix; Translations: [Cervical polyp] Episodic Other female genital disorders (2 sources) History of recurrent vaginal discharge; Translations: [History of vaginal discharge] Episodic Other gastrointestinal disorders (20 sources) Pelvic mass; Translations: [Abdominal or pelvic swelling, mass, or lump, unspecified site] Onset: 04-10-2023 04-10-2023 Episodic Other infections; including parasitic (18 sources) Late effects of other and unspecified infectious and parasitic diseases; 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 Other infections; including parasitic (20 sources) Personal history of other infectious and parasitic diseases; Translations: [Personal history of COVID-19] Onset: 04-10-2023 04-10-2023 Episodic Other lower respiratory disease (20 sources) Habitual snoring; Translations: [Other respiratory abnormalities] Onset: 04-10-2023 04-10-2023 Episodic Other lower respiratory disease (1 source) Shortness of breath; Translations: [SHORTNESS OF BREATH] Onset: 07-05-2022 Episodic Other lower respiratory disease (3 sources) Chronic cough; Translations: [Chronic cough] Onset: 04-10-2023 04-10-2023 Episodic Other lower respiratory disease (2 sources) Cough; 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] Onset: 04-13-2023 04-13-2023 Episodic Other nervous system disorders (20 sources) Carpal tunnel syndrome; Translations: [Carpal tunnel syndrome] Chronic Other nervous system disorders (3 sources) Bilateral carpal tunnel syndrome; Translations: [Carpal tunnel syndrome, bilateral upper limbs] Onset: 04-10-2023 04-10-2023 Chronic Other nervous system disorders (20 sources) Postoperative pain ; Translations: [Other acute postoperative pain] Onset: 04-10-2023 3 Episodic Other nutritional; endocrine; and metabolic disorders (20 sources) Body mass index 30+ - obesity; Translations: [Obesity, unspecified] Onset: 04-10-2023 04-10-2023 Chronic Other nutritional; endocrine; and metabolic disorders (11 sources) Obesity; Translations: [Obesity, unspecified] Onset: 04-13-2023 04-13-2023 Chronic Other nutritional; endocrine; and metabolic disorders (1 source) Obesity, unspecified; Translations: [Obesity, unspecified] Onset: 08-25-2022 Chronic Other nutritional; endocrine; and metabolic disorders (1 source) Body mass index (BMI) 35.0-35.9, adult; Translations: [Body mass index [BMI] 35.0-35.9, adult] Onset: 08-25-2022 Chronic Other nutritional; endocrine; and metabolic disorders (5 sources) Weight gain; Translations: [Abnormal weight gain] Episodic Other screening for suspected conditions (not mental disorders or infectious disease) (20 sources) Cancer cervix - screening done; Translations: [Patient encounter status] Onset: 04-10-2023 04-10-2023 Episodic Comment on above: [email or web address] 07/2019-neg atve; Other upper respiratory disease (20 sources) Rhinitis; Translations: [Chronic rhinitis] Onset: 04-10-2023 04-10-2023 Chronic Other upper respiratory infections (2 sources) Acute upper respiratory infection; Translations: [Acute upper respiratory infection] Episodic Otitis media and related conditions (2 sources) Otitis media; Translations: [Left otitis media] Episodic Poisoning by other medications and drugs (1 source) Poisoning by drug AND/OR medicinal substance; Translations: [Poisoning by unspecified drugs, medicaments and biological substances, accidental (unintentional), initial encounter] Onset: 09-24-2022 Episodic Residual codes; unclassified (3 sources) Finding related to sleep; Translations: [Sleep apnea, unspecified] Onset: 04-10-2023 04-10-2023 Chronic Residual codes; unclassified (1 source) Acquired absence of other specified parts of digestive tract; Translations: [Acquired absence of other specified parts of digestive tract] Onset: 08-25-2022 Episodic Screening and history of mental health and substance abuse codes (1 source) Personal history of nicotine dependence; Translations: [Personal history of nicotine dependence] Onset: 08-25-2022 Episodic Unclassified (13 sources) Patient encounter status; Translations: [Encounter for screening mammogram for breast cancer] Unclassified (1 source) CONTACT W/AND (SUSP) EXPOS COVID-19; Translations: [CONTACT W/AND (SUSP) EXPOS COVID-19] Onset: 07-05-2022 Unclassified (1 source) [facility] 3/9 08-24-2022 Comment on above: [facility] 08/24 Unclassified (2 sources) AND-AFIB 08-25-2022 Comment on above: AND-AFIB Unclassified (1 source) Symptomatic bradycardia 08-22-2022 Unclassified (1 source) Frequent PVCs 08-22-2022 Unclassified (1 source) Contact with and (suspected) exposure to COVID-19; Translations: [Contact with and (suspected) exposure to COVID-19] Onset: 08-25-2022 Unclassified (3 sources) Unspecified lump in the right breast, overlapping quadrants; Translations: [Unspecified lump in the right breast, overlapping quadrants] Onset: 12-28-2021 Past or Other Problems Problem Classification Problem Date Documented Da te Episodic/Chronic Deficiency and other anemia (3 sources) Iron deficiency anemia; Translations: [Iron deficiency anemia, unspecified] Onset: 06-02-2015 04-10-2023 Episodic Other female genital disorders (1 source) Vaginal discharge; Translations: [Vaginal discharge] Episodic Unclassified (1 source) Cancer cervix screening status; Translations: [Cervical cancer screening] Unclassified (12 sources) Mammography normal; Translations: [History of Mammogram normal] Comment on above: 05/2020-cat 112// 019-CAT 1; Unclassified (20 sources) Never smoked tobacco; Translations: [Never a smoker] Unclassified (20 sources) Patient status finding; Translations: [Patient new to provider] Unclassified (1 source) Exposure to 2019 novel coronavirus; Translations: [Contact with and (suspected) exposure to COVID19] Viral infection (20 sources) Other specified viral infection; Translations: [Disease caused by 2019-nCoV] Resolved: 09-24-2020 Episodic NEGATED: Highlighted row has not occurred!Residual codes; unclassified (20 sources) Disease Episodic Results Test Name Value Interpretation Reference Range Facil ity PT - Orderson 04-27-2023 PT - Orders [id number]#1.00T IFF Normal [facility] Consent for Treatmenton Consent for Treatment [id number]#1.00TIFF Normal [facility] PT - Assessmentson PT - Assessments [id number]#1.00TIFF Normal [facility] PT - Consentson 04-26-2023 PT - Consents [id number]#1. 00TIFF Normal [facility] PT - [place] 04-26-2023 PT - Orders [id number]#1.00 TIFF Normal [facility] Holter monitor studyon 04-18 This is an event mon itor for 30 days from March 05, 2023 to April 04, 2023. The underlying rhythm was sinus rhythm rate of 63 bpm. There were 209 patient triggered events. No symptoms related. All these events correlated with sinus rhythm-sinus bradycardia-sinus rhythm with PACs. No evidence of sustained atrial or ventricular arrhythmias were seen during this transmissions. 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 Nonspecific subchondral edema within the mid calcaneus, most likely reactive to the degenerative changes, with differential also including contusion versus stress changes. No distinct associated fracture line. Split type tear involving peroneus brevis, without significant retraction. HISTORY: Chronic right ankle pain. TECHNIQUE: Routine MRI of the right ankle/hindfoot COMPARISON: None RESULT: Cartilage: Tibiotalar osteophytes without distinct measurable full-thickness chondral defect. Moderate to severe degenerative changes involving the subtalar joint, especially the posterior subtalar joint, with subchondral cystic change. Some ill-defined subchondral edema within the mid calcaneus as below. Mild degenerative changes in the visualized midfoot. Ligaments: Talofibular ligaments, tibiofibular ligaments, calcaneofibular ligament and deltoid ligament all appear to be intact. Tendons: Mild distal Achilles tendinosis, without tear. Extensor tendons, medial flexor tendons, appear intact. Apparent split type tearing involving peroneus brevis in the region of the retromalleolar groove without difficulty and tendon retraction. Peroneus brevis grossly intact. Joint Fluid: Physiologic quantity of joint fluid. Bone Marrow: Subchondral edema involving the mid aspect of the calcaneus, nonspecific, but probably reactive to the degenerative changes of the subtalar joint. Differential also includes contusion versus stress changes. No distinct associated fracture line. Plantar Aponeurosis: Plantar aponeurosis is within normal limits. Sinus Tarsi: Sinus tarsi is within normal limits. Muscle: Muscle bulk and signal intensity is within normal limits. Report Tarsal Tunnel: Tarsal tunnel is within normal limits. Other: No other significant abnormality. Ordering Provider: , FINAL REPORT Dictated: 03/30/2023 4:00 pm Brian Nolan MD Signed (Electronic Signature): 03/30/2023 4:00 pm Signed by: Brian Nolan MD Transcribed by: BENITA Technologist: JENNI Technical Comments None Normal [facility] RAD - MRI Screening Formon 1 RAD - MRI Screening Form [id number]#1.00TIFF Normal [facility] Physician Orderon 03-21-2023 Physician Order [id number]#1.00CD:127 Normal [facility] Outside Cardiovascularon Outside Cardiovascular [id number]#1.00CD:127 Normal [facility] Outside Cardiovascular [id number]#1.00CD:127 Normal [facility] Outside HPon 11-03-2022 Outside HP [id number]#1.00C D:127 Normal [facility] Outside Progress Noteon 10-16 Outside Progress Note [id number]#1.00CD:127 Normal [facility] Outside Radiologyon 11-04-19 Outside Radiology [id number]#1.00CD:127 Normal [facility] MRI Cardiac w/wo contrast fo r Morph/Funct and Valve Dzon 10-10-2022 MRI Cardiac w/wo contrast fo r Morph/Funct and Valve Dz Normal [facility] Work Phone: TH MRI CARDIAC RESONANCE MENG GING FOR VELOCITY FLOW MAPPINGon 10-10-2022 MRI CARDIAC RESONANCE IMAGING FOR VELOCITY FLOW MAPPING [facility] CMR Report Name: RASHEEDA HANNA : 1970 Scan Date: 2022-10-10 13:15:00 Electronically signed by NAILA LEACH 15:48:14 GENERAL INFORMATION HEIGHT: 60.00 in (152.40 cm) WEIGHT: 186.00 lbs (84.37 kgs) BSA: 1.81 m^2 BASELINE HR: 0 BPM SCAN LOCATION: [facility] REFERRING PHYSICIAN: FEDERCIO WING ATTENDING PHYSICIAN: FEDERICO BILLOLOGIST: GENARO DELONG ACCESSION NUMBER: [id number] CPT CODES: 45757, [ , ]09546 ICD10 CODES: R00.2, [ , ]I49.3 SUMMARY 1. Normal left ventricular cavity size and myocardial wall thickness with preserved systolic function. Ejection fraction 67%. 2. Delayed enhancement imaging is normal. No evidence of fibrosis, infiltrative disease, previous myocardial fraction, or inflammation of the left ventricular or right ventricular myocardium. 3. Normal right ventricular cavity size with preserved systolic function. RV EF 61%. No CMR evidence of ARVC. LEFT VENTRICLE: Quantitative LVEF 67 %. LV wall thickness is normal. LV cavity size is normal. LV systolic function is normal. VIABILITY: Hyperenhancement is normal. RIGHT VENTRICLE: Quantitative RVEF 61 %. RV wall thickness is normal. RV cavity size is normal. RV systolic function is normal. There is no RV mass/thrombus. LV/RV SEPTUM: The LV/RV septum is normal. LA/RA SEPTUM: A patent foramen ovale cannot be ruled out. LEFT ATRIUM: LA cavity size is normal. RIGHT ATRIUM: RA cavity size is normal. PERICARDIUM: There is a trivial pericardial effusion. There is an inferior pericardial effusion. PLEURAL EFFUSION: There is no pleural effusion. AORTIC VALVE: Aortic valve is trileaflet. There is no aortic regurgitation. There is no aortic stenosis. MITRAL VALVE: Mitral valve leaflets are normal. There is mild mitral regurgitation. TRICUSPID VALVE: Tricuspid valve leaflets are normal. There is no tricuspid regurgitation. PULMONIC VALVE: Pulmonic valve leaflets are normal. AORTIC ROOT: The aortic root is normal. CORE EXAM MEASUREMENTS VOLUMETRIC ANALYSIS . . . . . LV . Reference . RV . Reference . +------+ +------+ +------+ + . EDV . ml . 123 . (86-166) . 142 . (81-166) . . . ml/m^2 . 68 . (56-90) . 79 . (53-90) . . ESV . ml . 41 . (22-59) . 56 . (15-68) . . . ml/m^2 . 23 . (14-33) . 31 . (11-37) . . CO . L/min . 4.68 . . 4.93 . . . . L/min/m^2 . 2.58 . . 2.72 . . . MASS . g . 103 . (72-144) . . . . . g/m^2 . 57 . (48-78) . . . . SV . ml . 82 . (57-113) . 86 . (56-108) . . . ml/m^2 . 45 . (37-62) . 48 . (36-60) . . EF . % . 67 . (59-77) . 61 . (55-79) . '------+ +------+ +------+ ' CARDIAC OUTPUT HR: 57 BPM LV DIMENSIONS WALL THICKNESS - ANTEROSEPTAL: 0.78 cm WALL THICKNESS - INFEROLATERAL: 0.39 cm LV MARCELL: 4.8 cm LV ESD: 2.9 cm LA DIMENSIONS (LV SYSTOLE) DIAMETER: 4.1 cm AREA - 2 CHAMBER: 20 cm^2 LENGTH - 2 CHAMBER: 5.9 cm AREA - 4 CHAMBER: 25 cm^2 LENGTH - 4 CHAMBER: 5.9 cm VOLUME: 72 ml VOLUME NORMALIZED: 39.8 ml/m^2 RA DIMENSIONS (RV SYSTOLE) DIAMETER: 3.9 cm AREA - 4 CHAMBER: 16.2 cm^2 LENGTH - 4 CHAMBER: 4.6 cm AORTIC ROOT DIMENSIONS ANNULUS: 1.9 cm SINUS OF VALSALVA: 2.9 cm SINOTUBULAR JUNCTION: 2.1 cm FLOW ANALYSIS QP: 4 L/min QS: 4 L/min QP/QS: 0.80 17 SEGMENT . . . Segments . Wall Motion . Hyperenhancement . Stress Perfusion . Interpretation . + + + + ----+ + . Base Anterior . Normal/Hyper . None . . Normal . . Base Anteroseptal . Normal/Hyper . None . . Normal . . Base Inferoseptal . Normal/Hyper . None . . Normal . . Base Inferior . Normal/Hyper . None . . Normal . . Base Inferolateral . Normal/Hyper . None . . Normal . . Base Anterolateral . Normal/Hyper . None . . Normal . . Mid Anterior . Normal/Hyper . None . . Normal (more content not included)... Normal [facility] MRI CARDIAC W/WO CONTRAST FOR MORPH/FUNCT AND VALVE [facility] 10-10-2022 MRI CARDIAC W/WO CONTRAST FOR MORPH/FUNCT AND VALVE [facility] CMR Report Name: RASHEEDA HANNA : 1970 Scan Date: 2022-10-10 13:15:00 Electronically signed by NAILA LEACH 15:48:14 GENERAL INFORMATION HEIGHT: 60.00 in (152.40 cm) WEIGHT: 186.00 lbs (84.37 kgs) BSA: 1.81 m^2 BASELINE HR: 0 BPM SCAN LOCATION: [facility] REFERRING PHYSICIAN: FEDERICO WING ATTENDING PHYSICIAN: FEDERICO WING TECHNOLOGIST: GENARO DELONG ACCESSION NUMBER: [id number] CPT CODES: 19733, [ , ]92108 ICD10 CODES: R00.2, [ , ]I49.3 SUMMARY 1. Normal left ventricular cavity size and myocardial wall thickness with preserved systolic function. Ejection fraction 67%. 2. Delayed enhancement imaging is normal. No evidence of fibrosis, infiltrative disease, previous myocardial fraction, or inflammation of the left ventricular or right ventricular myocardium. 3. Normal right ventricular cavity size with preserved systolic function. RV EF 61%. No CMR evidence of ARVC. LEFT VENTRICLE: Quantitative LVEF 67 %. LV wall thickness is normal. LV cavity size is normal. LV systolic function is normal. VIABILITY: Hyperenhancement is normal. RIGHT VENTRICLE: Quantitative RVEF 61 %. RV wall thickness is normal. RV cavity size is normal. RV systolic function is normal. There is no RV mass/thrombus. LV/RV SEPTUM: The LV/RV septum is normal. LA/RA SEPTUM: A patent foramen ovale cannot be ruled out. LEFT ATRIUM: LA cavity size is normal. RIGHT ATRIUM: RA cavity size is normal. PERICARDIUM: There is a trivial pericardial effusion. There is an inferior pericardial effusion. PLEURAL EFFUSION: There is no pleural effusion. AORTIC VALVE: Aortic valve is trileaflet. There is no aortic regurgitation. There is no aortic stenosis. MITRAL VALVE: Mitral valve leaflets are normal. There is mild mitral regurgitation. TRICUSPID VALVE: Tricuspid valve leaflets are normal. There is no tricuspid regurgitation. PULMONIC VALVE: Pulmonic valve leaflets are normal. AORTIC ROOT: The aortic root is normal. CORE EXAM MEASUREMENTS VOLUMETRIC ANALYSIS . . . . . LV . Reference . RV . Reference . +------+ +------+ +------+ + . EDV . ml . 123 . (86-166) . 142 . (81-166) . . . ml/m^2 . 68 . (56-90) . 79 . (53-90) . . ESV . ml . 41 . (22-59) . 56 . (15-68) . . . ml/m^2 . 23 . (14-33) . 31 . (11-37) . . CO . L/min . 4.68 . . 4.93 . . . . L/min/m^2 . 2.58 . . 2.72 . . . MASS . g . 103 . (72-144) . . . . . g/m^2 . 57 . (48-78) . . . . SV . ml . 82 . (57-113) . 86 . (56-108) . . . ml/m^2 . 45 . (37-62) . 48 . (36-60) . . EF . % . 67 . (59-77) . 61 . (55-79) . '------+ +------+ +------+ ' CARDIAC OUTPUT HR: 57 BPM LV DIMENSIONS WALL THICKNESS - ANTEROSEPTAL: 0.78 cm WALL THICKNESS - INFEROLATERAL: 0.39 cm LV MARCELL: 4.8 cm LV ESD: 2.9 cm LA DIMENSIONS (LV SYSTOLE) DIAMETER: 4.1 cm AREA - 2 CHAMBER: 20 cm^2 LENGTH - 2 CHAMBER: 5.9 cm AREA - 4 CHAMBER: 25 cm^2 LENGTH - 4 CHAMBER: 5.9 cm VOLUME: 72 ml VOLUME NORMALIZED: 39.8 ml/m^2 RA DIMENSIONS (RV SYSTOLE) DIAMETER: 3.9 cm AREA - 4 CHAMBER: 16.2 cm^2 LENGTH - 4 CHAMBER: 4.6 cm AORTIC ROOT DIMENSIONS ANNULUS: 1.9 cm SINUS OF VALSALVA: 2.9 cm SINOTUBULAR JUNCTION: 2.1 cm FLOW ANALYSIS QP: 4 L/min QS: 4 L/min QP/QS: 0.80 17 SEGMENT . . . Segments . Wall Motion . Hyperenhancement . Stress Perfusion . Interpretation . + + + + ----+ + . Base Anterior . Normal/Hyper . None . . Normal . . Base Anteroseptal . Normal/Hyper . None . . Normal . . Base Inferoseptal . Normal/Hyper . None . . Normal . . Base Inferior . Normal/Hyper . None . . Normal . . Base Inferolateral . Normal/Hyper . None . . Normal . . Base Anterolateral . Normal/Hyper . None . . Normal . . Mid Anterior . Normal/Hyper . None . . Normal (more content not included)... Normal [facility] Coding Summary.on 09-30-2022 Coding Summary. CD:[id number]+PGhlYWQ+EI3HOPZvX09uxAMykQ1yF9VFCEuBQxfgAWPVMBmBDaLaydOqO Z0fuKEmFVWk [file] aLGbq2A1 (more content not included)... Normal [facility] Coding Summary.on 09-29-2022 Coding Summary. CD:[id number]+PGhlYWQ+ST7AVKVrU42gvKLbjH1pN0YYNSyKXagcLYTUNFeJEwTcaqAaU T8rtOGkVQPg [file] jKIxd1A5 (more content not included)... Normal [facility] Coding Summary.on 09-27-2022 Coding Summary. CD:[id number]+PGhlYWQ+OP0XIGQnQ07cnYZmvQ7pY7AEESdOZbqxVHYCWNhBKiNsdyXjU J7ijWAgVEJw [file] YXBzZTog (more content not included)... Normal [facility] Auto Diffon 09-24-2022 Basophils/100 WBC (Bld) 0.6 % Normal 0.0-2.0 [facility] Comment on above: Order Comment: Order Added by Discern Expert. Performed By: #### 2 052521, [id number], 9080564, 8354519, 84064339 ####[facility] [address] [place] [address] Basophils/Leukocytes Auto (B ld) [Pure # fraction] 0.1 E9/L Normal 0.0-0.2 [facility] Comment on above: Order Comment: Order Added by Discern Expert. Performed By: #### 2 019821, 74245152, 9945449, 6403703, 95490143 ####[address] [address] Eosinophils/100 WBC (Bld) 0.3 % Normal 0.0-8.0 [facility] Comment on above: Order Comment: Order Added by Discern Expert. Performed By: #### 2 294163, 14880803, 8846428, 2730684, 26507749 ####[address] [address] Eosinophils/Leukocytes Auto (Bld) [Pure # fraction] 0.0 E9/L Normal 0.0-0.5 [facility] Comment on above: Order Comment: Order Added by Discern Expert. Performed By: #### 2 147385, 95208634, 8898996, 4054192, 38525105 ####[address] [address] Lymphocytes/100 WBC (Bld) 20.7 % Normal 14.0-50.0 [facility] Comment on above: Order Comment: Order Added by Discern Expert. Performed By: #### 2 278727, 55889965, 4258819, 0449715, 98541419 ####[address] [address] Lymphocytes/Leukocytes Auto (Bld) [Pure # fraction] 3.0 E9/L Normal 1.0-4.0 [facility] Comment on above: Order Comment: Order Added by Discern Expert. Performed By: #### 2 818088, 95751955, 6945331, 5943143, 58597567 ####[address] [address] Monocytes/100 WBC (Bld) 9.1 % Normal 4.0-14.0 [facility] Comment on above: Order Comment: Order Added by Discern Expert. Performed By: #### 2 680723, 23167642, 4349844, 9662849, 41351745 ####[facility] [address] [place] [address] Monocytes/Leukocytes Auto (B ld) [Pure # fraction] 1.3 E9/L High 0.2-1.0 [facility] Comment on above: Order Comment: Order Added by Discern Expert. Performed By: #### 2 167641, 27907887, 1069776, 1451017, 22581409 ####[address] [address] Neutrophils/100 WBC (Bld) 69.3 % Normal 36.0-75.0 [facility] Comment on above: Order Comment: Order Added by Discern Expert. Performed By: #### 2 110762, 53824650, 3568021, 7445433, 05782205 ####[address] [place] [address] Neutrophils/Leukocytes Auto (Bld) [Pure # fraction] 10.0 E9/L High 2.0-7.5 [facility] Comment on above: Order Comment: Order Added by Discern Expert. Performed By: #### 2 544201, 93545547, 3399022, 9100457, 46951145 ####[address] [place] [address] CBC w/ Auto Diffon 3 Erythrocyte distribution wid th (RBC) [Ratio] 13.3 % Normal 10.9-14.2 [facility] Comment on above: Performed By: #### 2 192097, 84690188, 9014853, 1952725, 01194073 ####[address] [place] [address] Hematocrit (Bld) [Volume fraction] 40.2 % Normal 34.0-46.0 [facility] Comment on above: Performed By: #### 2 594126, 78582478, 9801035, 3810915, 04555371 ####[facility] [address] [place] [address] Hemoglobin (Bld) [Mass/Vol] 13.3 g/dL Normal 12.0-16. 0 [facility] Comment on above: Performed By: #### 2 012918, 16550571, 0044442, 6045477, 36074010 ####[facility] [address] [place] [address] MCH (RBC) [Entitic mass] 30.5 pg Normal 27.0-34.0 [facility] Comment on above: Performed By: #### 2 359234, 98646393, 6968257, 7534936, 04256950 ####[address] [address] MCHC (RBC) [Mass/Vol] 33.2 g/dL Normal 31.4-36.0 [facility] Comment on above: Performed By: #### 2 855778, 07641471, 9999839, 0690259, 63423302 ####[facility] [address] [place] [address] MCV (RBC) [Entitic vol] 91.8 fL Normal 80.0-100.0 [facility] Comment on above: Performed By: #### 2 156504, 21026938, 3801454, 0168937, 47340621 ####[facility] [address] [place] [address] Platelet mean volume (Bld) [Entitic vol] 8.7 fL Normal 6.4-10.8 [facility] Comment on above: Performed By: #### 2 887111, 01633979, 5263105, 1367573, 95393462 ####[facility] [address] [place] [address] Platelets (Bld) [#/Vol] 291.0 E9/L Normal 150.0-500.0 [facility] Comment on above: Performed By: #### 2 612234, 63587142, 8833453, 1239566, 32802060 ####[facility] [address] [place] [address] RBC (Bld) [#/Vol] 4.4 E12/L Normal 4.3-5.9 [facility] Comment on above: Performed By: #### 2 485379, 57486766, 5482350, 7837832, 93999996 ####[facility] [address] [place] [address] WBC corrected for nucl RBC A uto (Bld) [#/Vol] 14.4 E9/L High 4.0-11.0 [facility] Comment on above: Performed By: #### 2 392509, 13923505, 8782605, 9477316, 11010570 ####[facility] [address] [place] [address] CMPon 09-24-2022 Albumin [Mass/Vol] 3.8 g/dL Normal 3.3-5.0 [facility] Comment on above: Performed By: #### 2 973305, 96388716, 3409913, 5154903, 07661638 ####[facility] [address] [place] [address] Albumin/Globulin (S) [Mass conc ratio] 1.1 Normal 1.1-2.2 [facility] Comment on above: Performed By: #### 2 820258, 25105036, 5864208, 9143101, 21975722 ####[facility] [address] [place] [address] ALP [Catalytic activity/Vol] 91 Int._Unit/L Normal 21- 98 [facility] Comment on above: Performed By: #### 2 295392, 23535809, 5945593, 1921243, 85570406 ####[facility] [address] [place] [address] ALT No additional P-5'-P [Catalytic activity/Vol] 34 Int._Unit/L Normal 6-46 [facility] Comment on above: Performed By: #### 2 883992, 88678121, 2382737, 5670627, 65645620 ####[facility] [address] [place] [address] AST [Catalytic activity/Vol] 20 Int._Unit/L Normal 5-4 3 [facility] Comment on above: Performed By: #### 2 865316, 81935747, 9675951, 0631352, 22810966 ####[facility] [address] [place] [address] Bilirubin [Mass/Vol] 0.4 mg/dL Normal 0.0-1.1 [facility] Comment on above: Performed By: #### 2 870948, 83083185, 9431457, 8536429, 78399373 ####[facility] [address] [place] [address] Creatinine [Mass/Vol] 0.8 mg/dL Normal 0.5-1.3 [facility] Comment on above: Performed By: #### 2 906991, 02169793, 7541001, 1575499, 13951563 ####[facility] [address] [place] [address] Globulin (S) [Mass/Vol] 3.5 g/dL Normal 1.4-4.0 [facility] Comment on above: Performed By: #### 2 158241, 11415538, 4890628, 4400498, 84330013 ####[facility] [address] [place] [address] Protein [Mass/Vol] 7.3 g/dL Normal 6.0-7.8 [facility] Comment on above: Performed By: #### 2 478619, 23603456, 2819729, 5215661, 47557274 ####[facility] [address] [place] [address] Urea nitrogen [Mass/Vol] 24 mg/dL High 5-21 [facility] Comment on above: Performed By: #### 2 440088, 55478003, 9287901, 8272182, 64038879 ####[facility] [address] [place] [address] Urea nitrogen/Creatinine [Mass ratio] 30 No Units High 10-20 [facility] Comment on above: Performed By: #### 2 271063, 76175196, 5577510, 9188248, 92982870 ####[facility] [address] [place] [address] Anion gap [Moles/Vol] 10 mmol/L Normal 6-16 [facility] Comment on above: Performed By: #### 2 095915, 95226237, 3547441, 7996428, 56795694 ####[facility] [address] [place] [address] Calcium [Mass/Vol] 8.9 mg/dL Normal 8.9-11.1 [facility] Comment on above: Performed By: #### 2 628269, 74385714, 1175235, 1949922, 69394347 ####[facility] [address] [place] [address] Chloride [Moles/Vol] 103 mmol/L Normal 101-111 [facility] Comment on above: Performed By: #### 2 717712, 75011714, 1348457, 3044147, 95377158 ####[facility] [address] [place] [address] CO2 [Moles/Vol] 26 mmol/L Normal 21-31 [facility] Comment on above: Performed By: #### 2 381711, 44723634, 6657428, 8365517, 29229367 ####[facility] [address] [address] Glucose [Mass/Vol] 137 mg/dL Normal 55-199 [facility] Comment on above: Result Comment: If t his glucose result represents a fasting glucose, interpretation should refer to the following reference range: 55-99 mg/dL Performed By: #### 2 278080, 78080361, 5859556, 8708858, 32891431 ####[facility] [address] [place] [address] Potassium [Moles/Vol] 4.0 mmol/L Normal 3.5-5.3 [facility] Comment on above: Performed By: #### 2 944416, 42501389, 6798312, 8080047, 33228784 ####[facility] [address] [place] [address] Sodium [Moles/Vol] 135 mmol/L Normal 135-145 [facility] Comment on above: Performed By: #### 2 [id number] ####[facility] [address] [place] [address] Consent for Treatmenton Consent for Treatment [id number]:127 Normal [facility] Discharge Instructionson Discharge Instructions [id number]:127 Normal [facility] ED Clinical Summaryon 2022 ED Clinical Summary (Inserted Image. Sarah ble to display) [address] [address] ED Clinical Summary Person Information Name: RASHEEDA HANNA Danielle/[facility] Age: 51 Years : 1970 Sex: Female Language: Moldovan PCP: Kayla Dent DO Marital Status: Visit Id: Visit Reason: Palpitations; Medication overdose; TOOK TOO MUCH OF MED ACCIDENT Speciality: Acuity: 2 Enc Type: Emergency Med Service: Emergency Arrival: 09/23/2022 22:08:04 Discharge: 09/24/2022 04:32:10 LOS: 000 06:24 Checkin: 09/23/2022 22:08:04 Checkout: 09/24/2022 04:32:10 Dispo Type: Home (Routine DC) EVENTS: Event Name Event Status Request Date/Time Start Date/Time Complete Date/Time Arrive Complete 09/23/2022 22:08:04 09/23/2022 22:08:04 09/23/2022 22:08:04 Document Home Meds Request 09/23/2022 22:08:04 Triage Complete 09/23/2022 22:08:04 09/23/2022 22:25:15 09/23/2022 22:25:15 Registration Complete 09/23/2022 22:12:46 09/23/2022 22:12:46 09/23/2022 22:12:46 Reg Complete Request 09/23/2022 22:12:46 Reg Bed Request Complete 09/23/2022 22:12:46 09/23/2022 22:12:46 09/23/2022 22:12:46 EKG Complete 09/23/2022 22:17:24 09/23/2022 22:21:03 Bed Assign Complete 09/23/2022 22:19:51 09/23/2022 22:19:51 09/23/2022 22:19:51 Dr Exam Complete 09/23/2022 22:19:51 09/23/2022 22:58:46 09/23/2022 22:58:46 RN Exam Complete 09/23/2022 22:19:51 09/23/2022 22:48:25 09/23/2022 22:48:25 Pending Labs Complete 09/23/2022 22:30:37 09/23/2022 23:04:05 Lab Complete 09/23/2022 22:30:37 09/23/2022 23:04:05 Pending Labs Cancel 09/23/2022 22:32:26 09/23/2022 22:37:55 Pending Labs Complete 09/23/2022 22:37:51 09/23/2022 22:37:51 09/23/2022 23:11:49 Pending Labs Complete 09/23/2022 22:46:08 09/23/2022 22:46:08 09/23/2022 23:04:06 Lab Complete 09/23/2022 22:46:08 09/23/2022 22:46:08 09/23/2022 23:04:06 Pending Labs Complete 09/23/2022 22:47:09 09/23/2022 22:47:09 09/23/2022 22:47:16 Lab Complete 09/23/2022 22:47:09 09/23/2022 22:47:09 09/23/2022 22:47:16 Registration Request 09/23/2022 22:58:46 Dr Exam Complete 09/23/2022 22:59:02 09/23/2022 22:59:02 09/23/2022 22:59:02 EKG Complete 09/23/2022 23:25:33 09/23/2022 23:28:04 EKG Complete 09/24/2022 03:40:42 09/24/2022 04:01:05 Discharge Complete 09/24/2022 04:14:29 09/24/2022 04:39:49 09/24/2022 04:39:49 Transfer Complete 09/24/2022 04:39:49 09/24/2022 04:39:49 09/24/2022 04:39:49 ADDRESS: [address] [place] [id number] PHYS DOC NOTES: MEDICAL INFORMATION: Prescriptions Given: Medications to Continue with No Changes Other Medications aspirin (aspirin 81 mg Oral EC Tab) 1 Tablets By Mouth every day. Refills: 3. metoprolol (metoprolol 25 mg ER Tab) 1 Tablets By Mouth every day. Refills: 3. omeprazole (omeprazole 40 mg Cap-DR) 1 Capsules By Mouth every day. sertraline (sertraline 50 mg Tab) 1 Tablets By Mouth every day. solifenacin (Vesicare 5 mg Tab) 1 Tablets By Mouth every day. PATIENT EDUCATION INFORMATION: Instructions: Accidental Drug Poisoning, Adult Follow up: With: Address: When: Kayla Hernandez, [address] [place] [address] Business (1) In 3 days 09/27/2022, only if needed DIAGNOSIS: 1:Accidental overdose Normal [facility] ED Note-Nursingon 09-24-2022 ED Note-Nursing Called Poison Contro l and informed about patient's condition. Pt is clear for discharge per SHERRI Ludwig office machines sales representative. Normal [facility] ED Note-Nursing 2152 Received call sissy De La Cruz from [employer] to give report on incoming patient. Pt took Flecainide 100 mg double dose an hour apart, at 2030 and 2130. Recommended to observe for 6 hours and monitor for bradycardia, T wave changes, QT prolongation, arrhythmias, or QRS widening. Pt has history of arrhythmias. Admit if symptomatic. Monitor electrolytes. Normal [facility] ED Note-Physicianon 09-25-19 ED Note-Physician Basic Information Time Seen: Vincent Pan MD 09/23/2022 22:58 Chief Complaint Sent by [employer] for taking an extra dose of Flecinid 100 mg tonight an hour apart. Headache started after taking. Palpatations started 10-15 minutes ago. Hx of SSS, PVC's and bigeminy History of Present Illness 51-year-old female sent here by poison [employer] after accidentally taking an extra dose of flecainide. Patient this past week was increased from 75 mg once a day to 100 mg once a day. Tonight at 9:30 PM she took 2 pills instead of 1. Poison control recommended 6-hour observation. Patient states over the past year she had increasing premature beats that led to a cardiac catheterization in June. The cardiac catheterization was clear. No evidence of any coronary disease. However the premature beats and bigeminy led to lightheadedness and shortness of breath. On August 23 Dr[address] [facility] started her on flecainide. She was in the hospital initially. She states that when she has the premature beats she sometimes feels lightheaded, she sometimes has chest discomfort. She denies hypertension, diabetes, pulmonary disease, she is not a smoker. There is no strong family history of heart trouble. Review of Systems A 10 point review of systems is negative except as noted above. Medical and Surgical History: Reviewed and noted Social history: Lives at home Tobacco: Denies Physical Exam Vitals & Measurements HR: 68(Peripheral) RR: 15 BP: 99/56 SpO2: 92% HT: 152 cm WT: 86.5 kg BMI: 37.44 This is a pleasant overweight 51-year-old female she is alert and oriented skin is warm and dry color is pink on room air. The heart is regular without murmur gallop or rub. The heart is slow. The lungs are clear to auscultation there are no adventitious sounds. The abdomen is soft and nontender. Her speech is normal. Medical Decision Making Recommendations from poison control. Watch the patient for bradycardia, QT prolongation, or QRS widening. As the patient ingested the medication at 930 she has been watched here until 4 AM. Her heart rate has varied between 58 and 60. The QT interval varied between 399 and 412. The QRS has not widened whatsoever. The patient be discharged home to follow-up with her wheel of fortune dealer. She will resume her normal medications Sunday night. Assessment/Plan 1. Accidental overdose (T50.901A: Poisoning by unspecified drugs, medicaments and biological substances, accidental (unintentional), initial encounter) Orders: ECG 12 Lead Adult ECG 12 Lead Adult ECG 12 Lead Adult Disposition Plan Patient Discharge Condition Stable Discharge Disposition Home Discharge Prescription List Prescriptions No active prescription medications Follow-up With When Contact Information Kayla Dent In 3 days 09/27/2022 EDT, only if needed [address] [place] [address]- Business (1) Additional Instructions: Patient Education Accidental Drug Poisoning, Adult Problem List/Past Medical History Ongoing No qualifying data Historical No qualifying data Procedure/Surgical History Catheterization of left heart (07/14/2022), Carpal tunnel, section, Cholecystectomy, Tubal ligation, [place] tooth. Medications Inpatient No active inpatient medications Home aspirin 81 mg Oral EC Tab, 81 mg= 1 tab(s), Oral, Daily, 3 refills metoprolol 25 mg ER Tab, 25 mg= 1 tab(s), Oral, Daily, 3 refills omeprazole 40 mg Cap-DR, 40 mg= 1 cap(s), Oral, Daily sertraline 50 mg Tab, 50 mg= 1 tab(s), Oral, Daily Vesicare 5 mg Tab, 5 mg= 1 tab(s), Oral, Daily Allergies shellfish (Hives) Social History Alcohol - Denies Alcohol Use, 06/11/2019 Substance Abuse - Denies Substance Abuse, 06/11/2019 Tobacco - Denies Tobacco Use, 06/11/2019 Never (less than 100 in lifetime) Tobacco Use:. Never Smokeless Tobacco Use:., 07/12/2022 Family History Cardiac arrest: Brother. Primary malignant neoplasm of lung: Mother. Lab Results WBC: 14.4 E9/L High (09/23/22 22:35:00) RBC: 4.4 E12/L (09/23/22 22:35:00) HGB: 13.3 gm/dL (09/23/22 22:35:00) Hct: 40.2 % (09/23/22 22:35:00) MCV: 91.8 fL (09/23/22 22:35:00) MCH: 30.5 pg (09/23/22 22:35:00) MCHC: 33.2 gm/dL (09/23/22 22:35:00) RDW: 13.3 % (09/23/22 22:35:00) Platelet: 291 E9/L (09/23/22 22:35:00) MPV: 8.7 fL (09/23/22 22:35:00) Neutro Auto: 69.3 % (09/23/22 22:35:00) Lymph Auto: 20.7 % (09/23/22 22:35:00) Carson Auto: 9.1 % (09/23/22 22:35:00) Eos Auto: 0.3 % (09/23/22 22:35:00) Basophil Auto: 0.6 % (09/23/22 22:35:00) Neutro Absolute: 10 E9/L High (09/23/22 22:35:00) Lymph Absolute: 3 E9/L (09/23/22 22:35:00) Carson Absolute: 1.3 E9/L High (09/23/22 22:35:00) Eos Absolute: 0 E9/L (09/23/22 22:35:00) Basophil Absolute: 0.1 E9/L (09/23/22 22:35:00) Glucose Lvl: 137 mg/dL (09/23/22 22:35:00) BUN: 24 mg/dL High (09/23/22 22:35:00) Creatinine: 0.8 mg/dL (09/23/22 22:35:00) eGFR: >60 (09/23/22 22:35:00) eGFR AA: >60 (09/23/22 22:35:00) BUN/Cre (more content not included)... Normal [facility] Comment on above: Result Comment: Adama muir Signed By: Vincent Pan MD\.br\Date and Time Signed: 09/24/22 04:15 EDT ED Patient Education Noteon 09-24-2022 ED Patient Education Note Pharmacology Accidental Drug Poisoning, Adult Accidental drug poisoning happens when a person accidentally takes too much of a substance, such as a prescription medicine, an xbcz-ydk-fbeedmy medicine, a vitamin, a supplement, or an illegal drug. The effects of drug poisoning can be mild, dangerous, or even deadly. What are the causes? This condition is caused by taking too much of a medicine, illegal drug, or other substance. It often results from: ? Lack of knowledge about a substance. ? Using more than one substance at the same time. ? An error made by the health care provider who prescribed the substance. ? An error made by the pharmacist who filled the prescription. ? A lapse in memory, such as forgetting that you have already taken a dose of the medicine. ? Suddenly using a substance after a long period of not using it. The following substances and medicines are more likely to cause an accidental drug poisoning: ? Medicines that treat mental problems (psychotropic medicines). ? Pain medicines. ? Cocaine. ? Heroin. ? Multivitamins that contain iron. ? Pcsn-asw-jmrwviu cold and cough medicines. What increases the risk? This condition is more likely to occur in: ? Elderly adults. Elderly adults are at risk because they may: ? Be taking many different medicines. ? Have difficulty reading labels. ? Forget when they last took their medicine. ? People who use illegal drugs. ? People who drink alcohol while using illegal drugs or certain medicines. ? People with certain mental health conditions. What are the signs or symptoms? Symptoms of this condition depend on the substance and the amount that was taken. Common symptoms include: ? Behavior changes, such as confusion. ? Sleepiness. ? Weakness. ? Slowed breathing. ? Nausea and vomiting. ? Seizures. ? Very large or small eye pupil size. A drug poisoning can cause a very serious condition in which your blood pressure drops to a low level (shock). Symptoms of shock include: ? Cold and clammy skin. ? Pale skin. ? Blue lips. ? Very slow breathing. ? Extreme sleepiness. ? Severe confusion. ? Dizziness or fainting. How is this diagnosed? This condition is diagnosed based on: ? Your symptoms. You will be asked about the substances you took and when you took them. ? A physical exam. You may also have other tests, including: ? Urine tests. ? Blood tests. ? An electrocardiogram (ECG). How is this treated? This condition may need to be treated right away at the hospital. Treatment may involve: ? Getting fluids and electrolytes through an IV. ? Having a breathing tube inserted in your airway (endotracheal tube) to help you breathe. ? Taking medicines. These may include medicines that: ? Absorb any substance that is in your digestive system. ? Block or reverse the effect of the substance that caused the drug poisoning. ? Having your blood filtered through an artificial kidney machine (hemodialysis). ? Ongoing counseling and mental health support. This may be provided if you used an illegal drug. Follow these instructions at home: Medicines ? Take qbmm-rpr-aojoavz and prescription medicines only as told by your health care provider. ? Before taking a new medicine, ask your health care provider whether the medicine: ? May cause side effects. ? Might react with other medicines. ? Keep a list of all the medicines that you take, including novd-boq-dpbyaeu medicines, vitamins, supplements, and herbs. Bring this list with you to all of your medical visits. General instructions ? Drink enough fluid to keep your urine pale yellow. ? If you are working with a counselor or mental health professional, make sure to follow his or her instructions. ? Do not drink alcohol if: ? Your health care provider tells you not to drink. ? You are , may be , or are planning to become . ? If you drink alcohol, limit how much you have: ? 0?1 drink a day for women. ? 0?2 drinks a day for men. ? Be aware of how much alcohol is in your drink. In the [place] one drink equals one typical bottle of beer (12 oz), one-half glass of wine (5 oz), or one shot of hard liquor (1? oz). ? Keep all follow-up visits as told by your health care provider. This is important. How is this prevented? ? Get help if you are struggling with: ? Alcohol or drug use. ? Depression or another mental health problem. ? Keep the phone number of your local poison control center near your phone or on your cell phone. The hotline of the [place] [employer] of Poison Control Centers is . ? Store all medicines in safety containers that are out of the reach of children. ? Read the drug inserts that come with your medicines. ? Create a system for taking your medicine, such as a pillbox, that will help you avoid taking too mu (more content not included)... Normal [facility] ED Patient Summaryon 023 ED Patient Summary [address] [address] Patient Discharge Instructions Person Information Name: JOHANNA GUTIERREZKodak Kwong Age: 51 Years Arrival Date: 09/23/2022 22:08:04 Discharge Diagnosis: 1:Accidental overdose Primary Care Physician: Kayla Dent DO Provider Information Primary Provider: Vincent Pan MD Advanced Computing Services Director:None The exam and treatment you received in the Emergency Department were for an urgent problem and are not intended as complete care. It is important that you follow up with a doctor, nurse practitioner, or physician?s medical support assistant for ongoing care. If your symptoms become worse or you do not improve as expected and you are unable to reach your usual health care provider, you should return to the Emergency Department. We are available 24 hours a day. RASHEEDA HANNA has been given the following list of patient education materials, prescriptions and follow-up instructions: Follow-up Instructions: With: Address: When: Kayla Dent [address] [place] [address] [address], [facility] [address] [phone] Business (1) In 3 days 09/27/2022, only if needed In the event that this physician does not participate in your insurance network, please consult with your insurance company to find a nearby participating provider. Patient Education Materials: Accidental Drug Poisoning, Adult A MESSAGE TO ALL PATIENTS REGARDING OPIOIDS PRESCRIPTION OPIOIDS: WHAT YOU NEED TO KNOW Prescription opioids can be used to help relieve xguyyumt-ed-akpszq pain and are often prescribed following a surgery or injury, or for certain health conditions. These medications can be an important part of the treatment but also come with serious risks. It is important to work with your healthcare provider to make sure you are getting the safest, most effective care. WHAT ARE THE RISKS AND SIDE EFFECTS OF OPIOID USE? Prescription opioids carry serious risks of addiction and overdose, especially with prolonged use. An opioid overdose, often marked by slowed breathing, can cause sudden . The use of prescription opioids can have a number of side effects as well, even when taken as directed: ? Tolerance?meaning you might need to take more of the medication for the same pain relief ? Physical dependence?meaning you have symptoms of withdrawal when a medication is stopped ? Increased sensitivity to pain ? Constipation ? Nausea, vomiting, and dry mouth ? Sleepiness and dizziness ? Confusion ? Depression ? Low levels of testosterone that can result in lower sex drive, energy, and strength ? Itching and sweating RISKS ARE GREATER WITH: ? History of drug misuse, substance use disorder, or overdose ? Mental health conditions (such as depression or anxiety) ? Sleep apnea ? Older age (65 years and older) ? Avoid alcohol while taking prescription opioids. Also, unless specifically advised by your health care provider, medications to avoid include: ? Benzodiazepines (such as Xanax or Valium) ? Muscle relaxants (such as Soma or Flexeril) ? Hypnotics (such as Ambien or Lunesta) ? Other prescription opioids KNOW YOUR OPTIONS Talk to your health care provider about ways to manage your pain that don?t involve prescription opioids. Some of these options may actually work better and have fewer risks and side effects. Options may include: ? Pain relievers such as acetaminophen, ibuprofen, and naproxen ? Some medication that are also used for depression or seizures ? Physical therapy and exercise ? Cognitive behavioral therapy, a psychological, goal-directed approach, in which patients learn how to modify physical, behavioral, and emotional triggers of pain and stress. IF YOU ARE PRESCRIBED OPIOIDS FOR PAIN: ? Never take opioids in greater amounts or more often than prescribed. ? Follow up with your primary health care provider. o Work together to create a plan on how to manage your pain. o Talk about ways to help manage your pain that don?t involve prescription opioids. o Talk about any and all concerns and side effects. ? Help prevent misuse and abuse o Never sell or share prescription opioids. o Never use another person?s prescription opioids. ? Store prescription opioids in a secure place and out of reach of others (this may include visitors, children, friends, and family). ? Safely dispose of unused prescription opioids: Find your community drug take-back program or your pharmacy mail-back program, or flush them down the toilet, following guidance from the Food and Drug Administration (www.fda.gov/Drugs/ResourcesForYou). ? Visit www.cdc.gov/drugoverdose to learn about the risks of opioids abuse and overdose. ? If you believe you may be struggling with addiction, tell your health manager career and ask for guidance or call [facility] National Helpline at 0-684-291-[employer]. braxton Dejesus (more content not included)... Normal [facility] Monitor Recordon 09-24-2022 Monitor Record [id number]:127 Normal [facility] Troponin 0 Hr.on 09-24-2022 Troponin I.cardiac [Mass/Vol] 3.80 pg/mL Low 10.10- 27.10 [facility] Comment on above: Result Comment: The 95% CI (Confidence Interval) PPV (Positive Predictive Value) for myocardial infarction in females is 38 pg/mL, in males 51 pg/mL. The results should be used in conjunction with clinical conditions of myocardial infarction. (Access High Sensitivity Troponin I Instructions For Use, [employer], January 2018) Performed By: #### 2 [id number] ####[facility] [address] [place] [address] eGFRon 09-24-2022 GFR/1.73 sq M.predicted jaye g blacks MDRD (S/P/Bld) [Vol rate/Area] mL/min/{1.73_m2} Normal >=59 [facility] Comment on above: Order Comment: Order added by Discern Expert. Result Comment: eGFR is race adjusted. AA=. Performed By: #### 2 [id number] ####[facility] [address] [place] [address] GFR/1.73 sq M.predicted jaye g non-blacks MDRD (S/P/Bld) [Vol rate/Area] mL/min/{1.73_m2} Normal >=59 [facility] Comment on above: Order Comment: Order added by Discern Expert. Result Comment: Student Success Coach trina kidney disease could be indicated at eGFR's of less than 60 mL/min/1.73m2. Kidney failure is indicated at less than 15 mL/min/1.73m2. Performed By: #### 2 [id number] ####[facility] [address] [place] [address] CHEMISTRYOrdered By: SYSTEM SYSTEM on 09-23-2022 Albumin [Mass/Vol] 3.8 g/dL Normal 3.3 - 5.0 gm/dL [facility] Remisol Albumin/Globulin [Mass ratio] 1.1 {ratio} Normal 1.1 - 2.2 [facility] Remisol ALP [Catalytic activity/Vol] 91 [iU]/d Normal 21 - 98 Int._Unit/L [facility] Remisol ALT No additional P-5'-P [Catalytic activity/Vol] 34 [iU]/d Normal 6 - 46 Int._Unit/L [facility] Rem[facility] Anion gap [Moles/Vol] 10 mmol/L Normal 6 - 16 mEq/L [facility] Remisol AST [Catalytic activity/Vol] 20 [iU]/d Normal 5 - 43 Int._Unit/L [facility] Bilirubin [Mass/Vol] 0.4 mg/dL Normal 0.0 - 1.1 mg/dL [facility] Remisol Calcium [Mass/Vol] 8.9 mg/dL Normal 8.9 - 11.1 mg/dL [facility] Chloride [Moles/Vol] 103 mmol/L Normal 101 - 111 mmol/ L [facility] CO2 [Moles/Vol] 26 mmol/L Normal 21 - 31 mmol/L [facility] Creatinine [Mass/Vol] 0.8 mg/dL Normal 0.5 - 1.3 mg/d L [facility] Remisol GFR/1.73 sq M.predicted jaye g blacks MDRD (S/P/Bld) [Vol rate/Area] mL/min/1.73 m2 Normal >=59mL/min/1.73 m2 [facility] Chem S GFR/1.73 sq M.predicted jaye g non-blacks MDRD (S/P/Bld) [Vol rate/Area] mL/min/1.73 m2 Normal >=59mL/min/1.73 m2 [facility] Chem S Globulin (S) [Mass/Vol] 3.5 g/dL Normal 1.4 - 4.0 gm /dL [facility] Remisol Glucose [Mass/Vol] 137 mg/dL Normal 55 - 199 mg/dL [facility] Potassium [Moles/Vol] 4.0 mmol/L Normal 3.5 - 5.3 mmol /L [facility] Protein [Mass/Vol] 7.3 g/dL Normal 6.0 - 7.8 gm/dL [facility] Sodium [Moles/Vol] 135 mmol/L Normal 135 - 145 mmol/L [facility] Troponin I.cardiac [Mass/Vol] 3.80 pg/mL Low 10.10 - 27.10 pg/mL [facility] Urea nitrogen [Mass/Vol] 24 mg/dL High 5 - 21 mg/d L [facility] Urea nitrogen/Creatinine [Ma ss ratio] 30 mg/mg High 10 - 20 [facility] Remisol HEMATOLOGYOrdered By: SYSTEM SYSTEM on 09-23-2022 Basophils/100 WBC (Bld) 0.6 % Normal 0.0 - 2.0 % [facility] HemeAutoSS Basophils/Leukocytes Auto (B ld) [Pure # fraction] 0.1 E9/L Normal 0.0 - 0.2 E9/L [facility] HemeAutoSS Eosinophils/100 WBC (Bld) 0.3 % Normal 0.0 - 8.0 % [facility] HemeAutoSS Eosinophils/Leukocytes Auto (Bld) [Pure # fraction] 0.0 E9/L Normal 0.0 - 0.5 E9/L [facility] HemeAutoS S Lymphocytes/100 WBC (Bld) 20.7 % Normal 14.0 - 50. 0 % [facility] HemeAutoSS Lymphocytes/Leukocytes Auto (Bld) [Pure # fraction] 3.0 E9/L Normal 1.0 - 4.0 E9/L FT HemeAutoS S Monocytes/100 WBC (Bld) 9.1 % Normal 4.0 - 14.0 % [facility] HemeAutoSS Monocytes/Leukocytes Auto (B ld) [Pure # fraction] 1.3 E9/L High 0.2 - 1.0 E9/L [facility] HemeAutoSS Neutrophils/100 WBC (Bld) 69.3 % Normal 36.0 - 75. 0 % [facility] HemeAutoSS Neutrophils/Leukocytes Auto (Bld) [Pure # fraction] 10.0 E9/L High 2.0 - 7.5 E9/L [facility] HemeAutoS S HEMATOLOGYOrdered By: Dominic Duke on 09-23-2022 Erythrocyte distribution wid th (RBC) [Ratio] 13.3 % Normal 10.9 - 14.2 % [facility] HemeAutoSS Hematocrit (Bld) [Volume fraction] 40.2 % Normal 34.0 - 46.0 % [facility] HemeAutoSS Hemoglobin (Bld) [Mass/Vol] 13.3 g/dL Normal 12.0 - 1 6.0 gm/dL [facility] HemeAutoSS MCH (RBC) [Entitic mass] 30.5 pg Normal 27.0 - 34.0 pg [facility] HemeAutoSS MCHC (RBC) [Mass/Vol] 33.2 g/dL Normal 31.4 - 36.0 gm /dL [facility] HemeAutoSS MCV (RBC) [Entitic vol] 91.8 fL Normal 80.0 - 100.0 fL [facility] HemeAutoSS Platelet mean volume (Bld) [Entitic vol] 8.7 fL Normal 6.4 - 10.8 fL [facility] HemeAutoSS Platelets (Bld) [#/Vol] 291.0 E9/L Normal 150.0 - 500. 0 E9/L [facility] HemeAutoSS RBC (Bld) [#/Vol] 4.4 E12/L Normal 4.3 - 5.9 E12/L [facility] HemeAutoSS WBC corrected for nucl RBC A uto (Bld) [#/Vol] 14.4 E9/L High 4.0 - 11.0 E9/L [facility] HemeAutoSS Consent for Treatmenton Consent for Treatment [id number]:127 [facility] Consent for Treatmenton 04-0 Consent for Treatment [id number]:127 [facility] Physician Orderon 09-21-2022 Physician Order [id number]#1.00CD:127 [facility] Physician Order [id number]#1.00CD:127 [facility] Physician Order [id number]#1.00CD:127 [facility] Office Visit (Cardiology)on 09-20-2022 Follow-up visit Diagnoses/Problems Assessed Premature ventricular contractions (PVCs) (VPCs) (427.69) (I49.3) Palpitations (785.1) (R00.2) Never a smoker High risk medication use (V58.69) (Z79.899) Class 2 obesity with body mass index (BMI) of 36.0 to 36.9 in adult (278.00,V85.36) (E66.9,Z68.36) Orders Class 2 obesity with body mass index (BMI) of 36.0 to 36.9 in adult Healthy Weight Tips; Status:Complete - Retrospective Authorization; Done: [id number] Losing just 5 to 10 pounds may lower your risk of health problems.; Status:Complete - Retrospective Authorization; Done: [id number] High risk medication use, Premature ventricular contractions (PVCs) (VPCs) Avoid alcoholic beverages.; Status:Complete - Retrospective Authorization; Done: 06Hiw9407 Avoid foods and beverages that contain caffeine.; Status:Complete - Retrospective Authorization; Done: [id number] Eat a normal well-balanced diet.; Status:Complete - Retrospective Authorization; Done: 95Lqx4421 High risk medication use, Premature ventricular contractions (PVCs) (VPCs), Tachycardia IO EKG Electrocardiogram- 12 Lead; Status:Active - Perform Order,Retrospective Authorization; Requested for:21Sep2022; IO EKG Electrocardiogram- 12 Lead; Status:Active - Perform Order,Retrospective Authorization; Requested for:22Sep2022; Premature ventricular contractions (PVCs) (VPCs) Renew: Flecainide Acetate 100 MG Oral Tablet; TAKE 1 TABLET EVERY 12 HOURS DAILY SocHx: Never a smoker Tobacco Use Screening; Status:Complete; Done: 20Sep2022 Tachycardia Start: diazePAM 2 MG Oral Tablet (Valium); TAKE 1 TABLET 30MINUTES PRIOR TO MRI APPOINTMENT MRI Cardiac Chest MRA w/wo contrast for Morph/Funct, Valve Dz, and great vessels; Status:Hold For - Scheduling,Retrospective Authorization; Requested for:20Sep2022; Radiologist to Determine Optimal Study : Y Does the patient have a Cochlear Implant, Pacemaker, Defibrilator, Pacing Wire, Brain Aneurysm Clip, Implanted Nerve or Bone Graft Simulator, Implanted Breast Tissue School Manager, Glucose Monitor, or Neulasta Device? : No Is the patient or breast feeding? : No What are the patient's signs and symptoms? : Tachycardia Patient Instructions Patient to follow up in 4-[address] Federico Wing MD Patient will INCREASE Flecainide to 100mg twice daily. Patient will need to complete an EKG on and Sunday of this week in [facility]- office will arrange for you. Patient will also need to complete Cardiac MRI- office will arrange. Script given for Valium 2mg to be taken prior to MRI appointment. No other changes today. Continue same medications and treatments. Patient educated on proper medication use. Patient educated on risk factor modification. Please bring any lab results from other providers / physicians to your next appointment. Please bring all medicines, vitamins, and herbal supplements with you when you come to the office. Prescriptions will not be filled unless you are compliant with your follow up appointments or have a follow up appointment scheduled as per instruction of your physician. Refills should be requested at the time of your visit. Umesh Hernandez RN, am scribing for and in the presence of, Dr. Federico Wing MD The provider reviewed the following test(s) and result(s) with the patient: ECG and laboratory tests Chief Complaint Patient here for [facility] discharge follow up. Discharged 08/24. Palpitations, PVCs History of Present Illness 51-year-old female referred by Dr. Delgado for evaluation of palpitations and dizziness. Looking at her records she used to followed by Dr. Roe in the past for the same diagnosis. Initially her palpitations were related mostly with PVCs and PACs. She was placed on beta-claudia therapy. She underwent a stress test, echocardiogram and also EKGs. At the beginning of 2022, she had an episode of severe chest discomfort associated with palpitations and she had that in the hospital. An echocardiogram shows normal left ventricular function. A Holter monitor was ordered that showed episodes of PVCs with a burden of premature ventricular contractions approximately 14.8% of the total beats. No evidence of ventricular tachycardia. Patient states that lately she has been noticing dizziness that.. She has had iWatch and is recording her rhythm strips. I have personally reviewed rhythm strips on her phone that shows sinus rhythm with PACs with significant drop of the heart rate into 40 bpm. Patient has been noticing near syncopal episodes. Her cardiac that includes a cardiac catheterization July 2022 that showed no significant coronary artery disease. His stress test in June 2021 shows no exercise-induced chest discomfort no significant ST changes at 89% of maximal heart rate predicted. PACs with aberrant conduction at rest and in recovery. Normal EKG normal stress test. Echocardiogram in June 2021 shows normal left ventricular function of 65% with no marcellus (more content not included)... Normal [facility] Tobacco Screening.on 023 Adult depression screening assessment No [facility] Cydcor DO Work Phone: Fall risk assessment a) No falls within the last year [facility] 305 DO Work Phone: Tobacco use status CP b) No [facility] Cydcor DO Work Phone: BASIC METABOLIC PANELon 03- Anion gap [Moles/Vol] 11 mmol/L Normal 10 - 20 [facility] Comment on above: Performed By: #### T [facility] #### [address] [id number] Calcium [Mass/Vol] 8.9 mg/dL Normal 8.6 - 10.3 [facility] Comment on above: Performed By: #### T [facility] #### [address] [id number] Chloride [Moles/Vol] 104 mmol/L Normal 98 - 107 [facility] Comment on above: Performed By: #### T [facility] #### [address] [id number] Creatinine [Mass/Vol] 0.76 mg/dL Normal 0.50 - 1.05 [facility] Comment on above: Performed By: #### T [facility] #### [address] [id number] eGFR FEMALE >90 Normal >90 [facility] Comment on above: Result Comment: CALCULATIONS OF ESTIMATE D GFR ARE PERFORMED USING THE 2020 CKD-EPI STUDY REFIT EQUATION WITHOUT THE RACE VARIABLE FOR THE IDMS-TRACEABLE CREATININE METHODS. https://jasn.asnjournals.org/content//ASN.6699960759 Performed By: #### T [facility] #### [address] [id number] Glucose [Mass/Vol] 99 mg/dL Normal 74 - 99 [facility] Comment on above: Performed By: #### T [facility] #### [address] [id number] HCO3 (Bld) [Moles/Vol] 26 mmol/L Normal 21 - 32 [facility] Comment on above: Performed By: #### T [facility] #### [address] [id number] Potassium [Moles/Vol] 3.8 mmol/L Normal 3.5 - 5.3 [facility] Comment on above: Performed By: #### T [facility] #### [address] [id number] Sodium [Moles/Vol] 137 mmol/L Normal 136 - 145 [facility] Comment on above: Performed By: #### T [facility] #### [address] [id number] Urea nitrogen [Mass/Vol] 16 mg/dL Normal 6 - 23 [facility] Comment on above: Performed By: #### T [facility] #### [address] [id number] CBCon 08-25-2022 Erythrocyte distribution wid th (RBC) [Ratio] 12.6 % Normal 11.5 - 14.5 [facility] Comment on above: Performed By: #### C BC #### [address] [id number] Hematocrit (Bld) [Volume fraction] 38.4 % Normal 3 6.0 - 46.0 [facility] Comment on above: Performed By: #### C [facility] #### [address] [id number] Hemoglobin (Bld) [Mass/Vol] 13.1 g/dL Normal 12.0 - [address] [facility] Comment on above: Performed By: #### C BC #### [address] [id number] MCHC (RBC) [Mass/Vol] 34.1 g/dL Normal 32.0 - 36.0 [facility] Comment on above: Performed By: #### C BC #### [address] [id number] MCV (RBC) [Entitic vol] 92 fL Normal 80 - 100 [facility] Comment on above: Performed By: #### C BC #### [address] [id number] Platelets (Bld) [#/Vol] 248 10*3/uL Normal 150 - 450 [facility] Comment on above: Performed By: #### C BC #### [address] [id number] RBC 4.18 x10E12/L Normal 4.00 - 5.20 [facility] Comment on above: Performed By: #### C BC #### [address] [id number] WBC (Bld) [#/Vol] 9.6 10*3/uL Normal 4.4 - 11.3 [facility] Comment on above: Performed By: #### C #### [address] [id number] Daily Progress Note-Electrop hysiologyon 08-25-2022 Daily Progress Note-Electrophysiology Consult Type: subsequent visit/care Service: Electrophysiology Subjective Data: RASHEEDA HANNA is a 51 year old Female who is Hospital Day # 4. Additional Information: still with c/o palpitations/ chest pain approximately 1 hour prior to receiving dose of flecainide Up out of bed ambulating in room and bianchi Objective Data: Objective Information: T PRBPMAPSpO2 Value36.79051953/780960% Date/Time08/25 12: 12: 12: 12: 12: 12:17 Range(36C - 37C ) (37 - 72 ) (16 - 18 ) (95 - 163 )/ (49 - 77 ) (70 - 104 ) (93% - 99% ) Highest temp of 37 C was recorded at 08/24 0:32 Pain reported at 08/25 12:17: 0 = None Weights 08/24 4:55: Weight in kg (Weight (kg)) 82.6 08/24 4:55: Weight in lbs ((lbs)) 182.1 Physical Exam by System: Constitutional: Well developed, awake/alert/oriented x3, no distress, alert and cooperative Respiratory/Thorax: Patent airways, normal breath sounds with good chest expansion, thorax symmetric Cardiovascular: Regular rate and rhythm, no murmurs, 2+ equal pulses of the extremities, normal S 1and S 2. Telemetry shows SR with HR 58-80 BPM occasional PVC's and Bigeminy Musculoskeletal: ROM intact, no joint swelling, normal strength Extremities: normal extremities, no cyanosis, edema, contusions, wounds, or clubbing Neurological: alert and oriented x3, intact senses, motor, response and reflexes, normal strength Psychological: Appropriate mood and behavior Medication: Medications: Continuous Medications No continuous medications are active Scheduled Medications 1. Aspirin Chewable: 81 mg Oral Daily 2. Flecainide: 50 mg Oral Every 12 Hours 3. Loratadine: 10 mg Oral Daily 4. Magnesium Oxide: 400 mg Oral Daily 5. Metoprolol Succinate Extended Release: 25 mg Oral At Bedtime 6. Non-Formulary Medication: solifenacin Tablet Dose = 5 mg Oral Daily PATIENTS OWN MEDS: 7. Pantoprazole: 40 mg Oral Daily 8. Sertraline: 50 mg Oral Daily PRN Medications 1. Acetaminophen: 650 mg Oral Every 4 Hours 2. Atropine Injectable: 0.5 mg IntraVenous Push Every 5 Minutes 3. Sodium Chloride 0.9% Injectable Flush: 10 mL IntraVenous Flush Every 8 Hours and as Needed Recent Lab Results: Results: I have reviewed these laboratory results: Basic Metabolic Panel 25-Aug-2022 04:54:00 ResultValue Glucose, Serum 99 NA 137 K 3.8 CL 104 Bicarbonate, Serum 26 Anion Gap, Serum 11 BUN 16 CREAT 0.76 GFR Female >90 Calcium, Serum 8.9 Complete Blood Count 25-Aug-2022 04:54:00 ResultValue White Blood Cell Count 9.6 Red Blood Cell Count 4.18 HGB 13.1 HCT 38.4 MCV 92 MCHC 34.1 PLT 248 RDW-CV 12.6 Magnesium, Serum 25-Aug-2022 04:54:00 ResultValue Magnesium, Serum 1.91 Radiology Results: Results: Conclusion: Sinus rhythm with occasional premature ventricular complexes Otherwise normal ECG When compared with ECG of 22-AUG-2022 14:40, Previous ECG has undetermined rhythm, needs review Questionable change in QRS duration Minimal criteria for Anteroseptal infarct are no longer present Confirmed by Federico Wing ([id number]) on 08/24/2022 8:32:51 AM Electrocardiogram 12 Lead [Aug 24 2022 8:33AM] Assessment and Plan: Code Status: Code StatusFull Code Impression 1: cardiac arrhythmia with frequent PVC's/ big/ and PAC's Plan for Impression 1: Continue with flecainide 50 mg 1 tablet twice a day. ok to discharge home per EP service Long conversation with patient we will plan to follow. We will continue avoiding pacemaker if possible. We will maximize flecainide and on Sunday increase the dose to 75 mg twice a day as an outpatient to better control of PVCs. EKG in [place] office on Monday 08/28 and Tuesday 08/29 outpatient EP follow up in 2 weeks Continue with beta-claudia therapy. So far no pacemaker in the near future Impression 2: symptomatic bradycardia with dizziness/ lightheadedness Plan for Impression 2: Related to compensatory pause after PVC. Impression 3: dizziness/ lightheadedness with change of position Plan for Impression 3: obtain orthostatic VS Impression 4: history of LHC with normal coronaries and normal LVEF per echocardiogram Impression 5: obesity Attestation: Note Completion: I am a: Advanced Practice Provider Attending Only - Shared Visit with Advanced Practice ProviderThis is a shared visit. I have reviewed the Advanced Practice Providers encounter note, approve the Advanced Practice Providers documentation, and provide the following additional information from my personal encounter. Comments/ Additional Findings Doing well Still having episodes of palpitations occasionally but less frequent. Tolerating flecainide. We will increase the dose of flecainide to 75 mg 1 tablet twice a day Patien (more content not included)... Normal [facility] Electrocardiogram 12 Leadon 08-25-2022 Electrocardiogram 12 Lead Ventricular Ra te 71 Atrial Rate 71 P-R Interval 166 QRS Duration 88 Q-T Interval 380 QTC Calculation(Bazett) 412 P Grand Chain 59 R Grand Chain 61 T Grand Chain 56 QRS Count 12 Q Onset 219 P Onset 136 P Offset 195 T Offset 409 QTC Fredericia 402 Diagnosis Class Borderline Abnormal Diagnosis Normal sinus rhythm Normal ECG When compared with ECG of 24-AUG-2022 20:23, premature ventricular complexes is no longer present Confirmed by Naila Leach ([id number]) on 08/26/2022 1:34:29 PM Normal [facility] Laboratory - Chemistry and C hemistry - challengeon 08-25-2022 Anion gap [Moles/Vol] 11 mmol/L 10 - 20 [facility] Work Phone: Calcium [Mass/Vol] 8.9 mg/dL 8.6 - 10.3 [facility] Work Phone: Chloride [Moles/Vol] 104 mmol/L 98 - 107 [facility] Work Phone: CO2 [Moles/Vol] 26 mmol/L 21 - 32 [facility] Work Phone: Creatinine [Mass/Vol] 0.76 mg/dL See Below [facility] Work Phone: Comment on above: Reference Range: 0.5 0 - 1.05 Glucose [Mass/Vol] 99 mg/dL 74 - 99 [facility] Work Phone: Potassium [Moles/Vol] 3.8 mmol/L 3.5 - 5.3 [facility] Work Phone: Sodium [Moles/Vol] 137 mmol/L 136 - 145 [facility] Work Phone: Urea nitrogen [Mass/Vol] 16 mg/dL 6 - 23 [facility] Work Phone: Laboratory - Hematology and Cell countson 08-25-2022 Erythrocyte distribution wid th (RBC) [Ratio] 12.6 % See Below [facility] Work Phone: Comment on above: Reference Range: 11. 5 - 14.5 Hematocrit (Bld) [Volume fraction] 38.4 % S ee Below [facility] Work Phone: Comment on above: Reference Range: 36. 0 - 46.0 Hemoglobin (Bld) [Mass/Vol] 13.1 g/dL See [place] w [facility] Work Phone: Comment on above: Reference Range: 12. 0 - 16.0 MCHC (RBC) [Mass/Vol] 34.1 g/dL See Below [facility] Work Phone: Comment on above: Reference Range: 32. 0 - 36.0 MCV (RBC) [Entitic vol] 92 fL 80 - 100 [facility] [place] Work Phone: Platelets (Bld) [#/Vol] 248 10*3/uL 150 - 450 [facility] Work Phone: RBC (Bld) [#/Vol] 4.18 {x10E12/L} See Below [facility] Work Phone: Comment on above: Reference Range: 4.0 0 - 5.20 WBC (Bld) [#/Vol] 9.6 10*3/uL 4.4 - 11.3 [facility] Work Phone: MAGNESIUMon 08-25-2022 Magnesium [Mass/Vol] 1.91 mg/dL Normal 1.60 - 2.40 [facility] Comment on above: Performed By: #### M G #### [address] [id number] Magnesium, Serumon 3 Magnesium [Mass/Vol] 1.91 mg/dL See Below [facility] Work Phone: Comment on above: Reference Range: 1.6 0 - 2.40 No Panel Informationon 08-25 [email or web address]?Selam tvaHT=[email or web address]&Date=03-20-2023&Time=06%3a43%3a42%3a00&TestType=ECG&Site=11&Outp utType=PDF&Ext=PDF [facility] 300 DO Work Phone: Normal sinus rhythm [facility] [facility] DO Work Phone: Borderline Abnormal [facility] [facility] DO Work Phone: [phone] [facility] [facility] DO Work Phone: [phone] [facility] [facility] DO Work Phone: [phone] [facility] [facility] DO Work Phone: [phone] [facility] [facility] DO Work Phone: [phone] [facility] [facility] DO Work Phone: [phone] [facility] [facility] DO Work Phone: [phone] [facility] [facility] DO Work Phone: [phone] [facility] [facility] DO Work Phone: [phone] [facility] [facility] DO Work Phone: [phone] [facility] [facility] DO Work Phone: [phone] [facility] [facility] DO Work Phone: [phone] [facility] [facility] DO Work Phone: [phone] [facility] [facility] DO Work Phone: [phone] [facility] [facility] DO Work Phone: >90 > 9 0 [facility] Work Phone: Comment on above: CALCULATIONS OF ESTIMATED GFR ARE PERFOR MED USING THE 2020 CKD-EPI STUDY REFIT EQUATION WITHOUT THE RACE VARIABLE FOR THE IDMS-TRACEABLE CREATININE METHODS.https://jasn.asnjournals.org/content//ASN.6547749178 BASIC METABOLIC PANELon 03-0 GFR/1.73 sq M.predicted jaye g non-blacks MDRD (S/P/Bld) [Vol rate/Area] 90 mL/min/{1.73_m2} Normal >90 [facility] Comment on above: Result Comment: CALCULATIONS OF ESTIMATE D GFR ARE PERFORMED USING THE 2020 CKD-EPI STUDY REFIT EQUATION WITHOUT THE RACE VARIABLE FOR THE IDMS-TRACEABLE CREATININE METHODS. https://jasn.asnjournals.org/content//ASN.3694524086 Performed By: #### T [facility] #### [address] [id number] HCO3 (Bld) [Moles/Vol] 25 mmol/L Normal 21 - 32 [facility] Comment on above: Performed By: #### T [facility] #### [address] [id number] Anion gap [Moles/Vol] 12 mmol/L Normal 10 - 20 [facility] [place] Work Phone: Comment on above: Performed By: #### T [facility] #### [address] [id number] Calcium [Mass/Vol] 8.9 mg/dL Normal 8.6 - 10.3 [facility] [place] Work Phone: Comment on above: Performed By: #### T [facility] #### [address] [id number] Chloride [Moles/Vol] 104 mmol/L Normal 98 - 107 [facility] [place] Work Phone: Comment on above: Performed By: #### T [facility] #### [address] [id number] Creatinine [Mass/Vol] 0.78 mg/dL Normal 0.50 - 1.05 [facility] [place] Work Phone: Comment on above: Reference Range: 0.5 0 - 1.05 Performed By: #### T [facility] #### [address] [id number] Glucose [Mass/Vol] 109 mg/dL High 74 - 99 [facility] [place] Work Phone: Comment on above: Performed By: #### T RP #### [address] [id number] Potassium [Moles/Vol] 4.0 mmol/L Normal 3.5 - 5.3 [facility] Work Phone: Comment on above: Performed By: #### T RP #### [address] [id number] Sodium [Moles/Vol] 137 mmol/L Normal 136 - 145 [facility] Work Phone: Comment on above: Performed By: #### T RP #### [address] [id number] Urea nitrogen [Mass/Vol] 17 mg/dL Normal 6 - 23 [facility] [place] Work Phone: Comment on above: Performed By: #### T RP #### [address] [id number] CBCon 08-24-2022 Erythrocyte distribution wid th (RBC) [Ratio] 12.6 % Normal 11.5 - 14.5 [facility] Comment on above: Performed By: #### C BC #### [address] [id number] Hematocrit (Bld) [Volume fraction] 39.8 % Normal 3 6.0 - 46.0 [facility] Comment on above: Performed By: #### C BC #### [address] [id number] Hemoglobin (Bld) [Mass/Vol] 13.5 g/dL Normal 12.0 - [address] [facility] Comment on above: Performed By: #### C BC #### [address] [id number] MCHC (RBC) [Mass/Vol] 33.9 g/dL Normal 32.0 - 36.0 [facility] Comment on above: Performed By: #### C BC #### [address] [id number] MCV (RBC) [Entitic vol] 92 fL Normal 80 - 100 [facility] Comment on above: Performed By: #### C BC #### [address] [id number] Platelets (Bld) [#/Vol] 264 10*3/uL Normal 150 - 450 [facility] Comment on above: Performed By: #### C BC #### [address] [id number] RBC 4.32 x10E12/L Normal 4.00 - 5.20 [facility] Comment on above: Performed By: #### C BC #### [address] [id number] WBC (Bld) [#/Vol] 9.3 10*3/uL Normal 4.4 - 11.3 [facility] Comment on above: Performed By: #### C BC #### [address] [id number] Daily Progress Note-Electrop hysiologyon 08-24-2022 Daily Progress Note-Electrophysiology Service: Electrophysiology Subjective Data: RASHEEDA HANNA is a 51 year old Female who is Hospital Day # 3. Overnight Events: Acute events in the past 24 hours include Additional Information: Doing well Patient had headaches in the morning. She states that she drinks between 3 to 6 cups of caffeine per day. Telemetry shows sinus rhythm with occasional episodes of PVCs in a bigeminy pattern. Tolerating flecainide 50 mg 1 tablet twice a day Objective Data: Objective Information: T PRBPMAPSpO2 Value36.831911/479064% Date/Time08/24 7: 7: 7: 7: 7:20 Range(36.1C - 37C ) (42 - 75 ) (95 - 163 )/ (49 - 72 ) (70 - 104 ) (94% - 97% ) Highest temp of 37 C was recorded at 08/23 0:11 Pain reported at 08/24 10:49: 3 = Mild Physical Exam by System: Constitutional: Well developed, awake/alert/oriented x3, no distress, alert and cooperative Eyes: PERRL, EOMI, clear sclera Respiratory/Thorax: Clear to auscultation bilaterally; normal respiratory effort Cardiovascular: Regular rate and rhythm; no murmurs/rubs/gallops; intact distal pulses Gastrointestinal: Nondistended, soft, non-tender, no rebound tenderness or guarding, no masses palpable, +BS Extremities: normal extremities, no cyanosis edema, contusions or wounds, no clubbing Neurological: alert and oriented x3, intact senses, motor response and reflexes, normal strength Psychological: Appropriate mood and behavior Skin: Warm and dry, no lesions, no rashes Medication: Medications: Continuous Medications No continuous medications are active Scheduled Medications 1. Aspirin Chewable: 81 mg Oral Daily 2. Flecainide: 50 mg Oral Every 12 Hours 3. Metoprolol Succinate Extended Release: 25 mg Oral At Bedtime 4. Pantoprazole: 40 mg Oral Daily 5. Sertraline: 50 mg Oral Daily PRN Medications 1. Acetaminophen: 650 mg Oral Every 4 Hours 2. Atropine Injectable: 0.5 mg IntraVenous Push Every 5 Minutes 3. Sodium Chloride 0.9% Injectable Flush: 10 mL IntraVenous Flush Every 8 Hours and as Needed Recent Lab Results: Results: CBC: 08/24/2022 04:46 \ Hgb / \ 13.5 / WBC Plt 9.3 264 / Hct \ / 39.8 \ RBC: 4.32 MCV: 92 BMP: 08/24/2022 04:46 NA+ Cl- BUN / 137 104 17 / Glucose 109 H K+ HCO3- Creat \ 4.0 25 0.78 \ Calcium : 8.9 Anion Gap : 12 Radiology Results: Results: Conclusion: Sinus rhythm with occasional premature ventricular complexes Otherwise normal ECG When compared with ECG of 22-AUG-2022 14:40, Previous ECG has undetermined rhythm, needs review Questionable change in QRS duration Minimal criteria for Anteroseptal infarct are no longer present Confirmed by Federico Wing ([id number]) on 08/24/2022 8:32:51 AM Electrocardiogram 12 Lead [Aug 24 2022 8:33AM] Impression: No acute cardiopulmonary process radiographically. Xray Chest 1 View [Aug 22 2022 3:34PM] Conclusion: sinus rhythm with frequent PAC's in a pattern of atrial bigeminy Nonspecific intraventricular block Cannot rule out Anteroseptal infarct , age undetermined T wave abnormality, consider inferior ischemia Abnormal ECG Confirmed by Federico Wing ([id number]) on 08/22/2022 3:25:30 PM Electrocardiogram 12 Lead [Aug 22 2022 3:25PM] Assessment and Plan: Code Status: Code StatusFull Code Impression 1: cardiac arrhythmia with frequent PVC's/ big/ and PAC's Plan for Impression 1: Continue with flecainide 50 mg 1 tablet twice a day. Today in the morning patient had headaches could be related with lack of caffeine or medications. We will continue with observation. Tylenol as needed Long conversation with patient and we will plan to follow. We will continue avoiding pacemaker if possible. We can maximize flecainide or increase the dose to 75 mg twice a day as an outpatient to better control of PVCs. Continue with beta-claudia therapy. So far no pacemaker in the near future Impression 2: symptomatic bradycardia with dizziness/ lightheadedness Plan for Impression 2: Related to compensatory pause after PVC. Impression 3: dizziness/ lightheadedness with change of position Plan for Impression 3: obtain orthostatic VS Impression 4: history of LHC with normal coronaries and normal LVEF per echocardiogram Impression 5: obesity Electronic Signatures: Federico Wing) (Signed 24-Aug-2022 13:51) Authored: Service, Subjective Data, Objective Data, Assessment and Plan, Note Completion Last Updated: 24-Aug-2022 13:51 by Federico Wing) Normal [facility] Daily Progress Note-Medicine on 08-24-2022 Daily Progress Note-Medicine Service: Medicine Subjective Data: RASHEEDA HANNA is a 51 year old Female who is Hospital Day # 3. No overnight events. Had some dizziness this am which improved throughout the day. Able to ambulate some in the halls. No chest pain. Some dyspnea associated with palpitations earlier but also resolved. Objective Data: Objective Information: T PRBPMAPSpO2 Value36.437014/167781% Date/Time08/24 15: 15: 15: 15: 15:18 Range(36.1C - 37C ) (42 - 75 ) (95 - 163 )/ (49 - 72 ) (70 - 104 ) (94% - 97% ) Highest temp of 37 C was recorded at 08/23 0:11 Pain reported at 08/24 10:49: 3 = Mild Physical Exam by System: Constitutional: Well developed, awake/alert/oriented x3, no distress, alert and cooperative Eyes: PERRL, EOMI, clear sclera Respiratory/Thorax: Clear to auscultation bilaterally; normal respiratory effort Cardiovascular: Regular rate and rhythm; no murmurs/rubs/gallops; intact distal pulses Gastrointestinal: Nondistended, soft, non-tender, no rebound tenderness or guarding, no masses palpable, +BS Extremities: normal extremities, no cyanosis edema, contusions or wounds, no clubbing Neurological: alert and oriented x3, intact senses, motor response and reflexes, normal strength Psychological: Appropriate mood and behavior Skin: Warm and dry, no lesions, no rashes Recent Lab Results: Results: CBC: 08/24/2022 04:46 \ Hgb / \ 13.5 / WBC Plt 9.3 264 / Hct \ / 39.8 \ RBC: 4.32 MCV: 92 BMP: 08/24/2022 04:46 NA+ Cl- BUN / 137 104 17 / Glucose 109 H K+ HCO3- Creat \ 4.0 25 0.78 \ Calcium : 8.9 Anion Gap : 12 Assessment and Plan: Comorbidities: Comorbidityobesity Obesityobesity (BMI 35-39.9) BMI35.65 Code Status: Code StatusFull Code Assessment: Symptomatic bradycardia Bigeminy -EP consult, likely for PPM this admission -chest pain not suspected to be ACS with negative troponins and cath with minimal disease last month -PRN atropine for hemodynamic instability associated with bradycardia -hold her home sertraline given associate with mild bradycardia Incontinence -Resume home meds once reconciled DVT PPx: pharmacologic held due to possibility of procedure tomorrow Code: FULL 08/24/22: Improving symptomatically Tolerating flecainide Current plan is to hold off on PPM remains on BB per EP Possibly home soon if symptoms remain controlled Electronic Signatures: Skip Kelly) (Signed 24-Aug-2022 16:43) Authored: Service, Subjective Data, Objective Data, Assessment and Plan, Note Completion Last Updated: 24-Aug-2022 16:43 by Skip Kelly) [facility] Discharge [id number] Discharge Profile2 Discharge Orders: Anticipated Discharge Date: Anticipated Discharge [id number] Hospital Providers: Provider RoleProvider Name AttendingSkip Kelly Alberto DNAR: Code Status at Discharge: Full Code Activity: activity as tolerated. Provider FINAL REVIEW of Orders: Final Review: Final Review of Medication Reconciliation and Orders Completedby Physician Reviewing Viki Kelly MD at 25-Aug-2022 13:14:58 Appointments: Follow-Up Appointment 01: Physician/Dept/ServiceDr. Wing Reason for ReferralElectrophysiology follow-up Scheduled Date/[id number] 11:45 [facility] office in [place] [address] Phone [phone] Other Clinician Instructions: Other Instructions: Other Clinician InstructionsPlease follow up in the [place] office as discussed with EP for repeat EKGs on monday 08/28 and tuesday 08/29. You will be increasing your flecainide to 75mg twice daily on Sunday. Please call the office or return to the hospital if you have worsening chest pain, shortness of breath, if you pass out, or have any other concerning symptoms. 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 Electrocardiogram 12 Leadon 08-24-2022 Electrocardiogram 12 Lead Ventricular Ra te 69 Atrial Rate 69 P-R Interval 136 QRS Duration 82 Q-T Interval 398 QTC Calculation(Bazett) 426 P Grand Chain 39 R Grand Chain 48 T Grand Chain 45 QRS Count 11 Q Onset 218 P Onset 150 P Offset 193 T Offset 417 QTC Fredericia 417 Diagnosis Class Borderline Abnormal Diagnosis Sinus rhythm with frequent premature ventricular complexes in a pattern of bigeminy Otherwise normal ECG When compared with ECG of 24-AUG-2022 06:30, No significant change was found Confirmed by Naila Leach ([id number]) on 08/26/2022 1:28:10 [address] [facility] Electrocardiogram 12 Lead Ventricular Ra te 62 Atrial Rate 62 P-R Interval 162 QRS Duration 86 Q-T Interval 392 QTC Calculation(Bazett) 397 P Grand Chain 28 R Grand Chain 46 T Grand Chain 42 QRS Count 10 Q Onset 219 P Onset 138 P Offset 191 T Offset 415 QTC Fredericia 396 Diagnosis Class Borderline Abnormal Diagnosis Sinus rhythm with occasional premature ventricular complexes Otherwise normal ECG When compared with ECG of 22-AUG-2022 14:40, Previous ECG has undetermined rhythm, needs review Questionable change in QRS duration Minimal criteria for Anteroseptal infarct are no longer present Confirmed by Federico Wing ([id number]) on 08/24/2022 8:32:51 AM Normal [facility] Laboratory - Chemistry and C hemistry - challengeon 08-24-2022 CO2 [Moles/Vol] 25 mmol/L 21 - 32 [facility] [place] Work Phone: Laboratory - Hematology and Cell countson 08-24-2022 Erythrocyte distribution wid th (RBC) [Ratio] 12.6 % [facility] Below [facility] [place] Work Phone: Comment on above: Reference Range: 11. 5 - 14.5 Hematocrit (Bld) [Volume fraction] 39.8 % S ee Below [facility] Work Phone: Comment on above: Reference Range: 36. 0 - 46.0 Hemoglobin (Bld) [Mass/Vol] 13.5 g/dL See [place] w [facility] Work Phone: Comment on above: Reference Range: 12. 0 - 16.0 MCHC (RBC) [Mass/Vol] 33.9 g/dL See Below [facility] Work Phone: Comment on above: Reference Range: 32. 0 - 36.0 MCV (RBC) [Entitic vol] 92 fL 80 - 100 [facility] Work Phone: Platelets (Bld) [#/Vol] 264 10*3/uL 150 - 450 [facility] Work Phone: RBC (Bld) [#/Vol] 4.32 {x10E12/L} See Below [facility] Work Phone: Comment on above: Reference Range: 4.0 0 - 5.20 WBC (Bld) [#/Vol] 9.3 10*3/uL 4.4 - 11.3 [facility] [place] Work Phone: Magnesium, Serumon 3 Magnesium [Mass/Vol] 2.00 mg/dL Normal 1.60 - 2.40 [facility] Work Phone: Comment on above: Reference Range: 1.6 0 - 2.40 Performed By: #### M G #### [address] [id number] No Panel Informationon 08-24 [email or web address]&Date=02-18-2023&Time=20%3a23%3a14%3a00&TestType=ECG&Site=11&Outp utType=PDF&Ext=PDF [facility] DO Work Phone: Sinus rhythm with fr equent premature ventricular complexes in a pattern of bigeminy [facility] DO Work Phone: Borderline Abnormal [facility] DO Work Phone: [phone] [facility] DO Work Phone: [phone] [facility] DO Work Phone: [phone] [facility] DO Work Phone: [phone] [facility] DO Work Phone: 11 [phone] [facility] DO Work Phone: 45 1 [facility] DO Work Phone: 48 1 [facility] DO Work Phone: [phone] [facility] DO Work Phone: [phone] [facility] DO Work Phone: [phone] [facility] DO Work Phone: [phone] [facility] DO Work Phone: 136 1 [facility] DO Work Phone: [phone] [facility] DO Work Phone: [email or web address]&Date=02-18-2023&Time=06%3a30%3a53%3a00&TestType=ECG&Site=11&Outp utType=PDF&Ext=PDF [facility] [place] Work Phone: Sinus rhythm with occasional premature ventricu lar complexes [facility] [place] Work Phone: Borderline Abnormal [facility] [place] Work Phone: [phone] [facility] [place] Work Phone: [phone] [facility] [place] Work Phone: [phone] [facility] [place] Work Phone: [phone] [facility] [place] Work Phone: [phone] [facility] [place] Work Phone: [phone] [facility] [place] Work Phone: [phone] [facility] [place] Work Phone: [phone] [facility] [place] Work Phone: [phone] [facility] [place] Work Phone: [phone] [facility] [place] Work Phone: [phone] [facility] [place] Work Phone: [phone] [facility] [place] Work Phone: [phone] [facility] [place] Work Phone: [phone] [facility] [place] Work Phone: 90 {mL/min/1.73m2} > 9 0 -[facility] [place] Work Phone: Comment on above: CALCULATIONS OF ESTIMATED GFR ARE PERFOR MED USING THE 2020 CKD-EPI STUDY REFIT EQUATION WITHOUT THE RACE VARIABLE FOR THE IDMS-TRACEABLE CREATININE METHODS.https://jasn.asnjournals.org/content//ASN.4281850689 Order Reconciliationon 08-24 Order Reconciliation Page 1 Discharge Reconciliation Document Reconciliation Type: Discharge requested on behalf of Skip Kelly (Physician) done by Skip Kelly) Discharge - Partial Reconciliation: 24-Aug-2022 09:08 by: Kayla Shaw ([facility]) Discharge - Partial Reconciliation: 25-Aug-2022 09:53 by: Kayla Shaw ([facility]) Discharge - Partial Reconciliation: 25-Aug-2022 12:31 by: Kayla Shaw ([facility]) Discharge - Reconciliation: 25-Aug-2022 13:15 by: Skip Kelly) Home Medications EnteredHOME MEDICATIONS AT DISCHARGE DateReconciliation Comment/ Additional Information Aspirin Low Dose 81 orally once a day 22-Aug-2022 20:17 Aspirin Low Dose 81 orally once a day 22-Aug-2022 20:17 Aspirin Low Dose is continued as Aspirin Low Dose B Complex 50 oral tablet, extended release 1 tab(s) orally once a day 02-Sep-2020 11:00 B Complex 50 oral tablet, extended release 1 tab(s) orally once a day 02-Sep-2020 11:00 B Complex 50 oral tablet, extended release is continued as B Complex 50 oral tablet, extended release EPINEPHrine 0.3 mg injectable kit 0.3 milliliter(s) injectable once a day, As Needed DIRECTED 02-Sep-2020 11:02 EPINEPHrine 0.3 mg injectable kit 0.3 milliliter(s) injectable once a day, As Needed DIRECTED 02-Sep-2020 11:02 EPINEPHrine 0.3 mg injectable kit is continued as EPINEPHrine 0.3 mg injectable kit ferrous sulfate 200 mg (65 mg elemental iron) oral tablet 2 tab(s) orally once a day 02-Sep-2020 11:01 ferrous sulfate 200 mg (65 mg elemental iron) oral tablet 2 tab(s) orally once a day 02-Sep-2020 11:01 ferrous sulfate 200 mg (65 mg elemental iron) oral tablet is continued as ferrous sulfate 200 mg (65 mg elemental iron) oral tablet metoprolol succinate 25 mg oral tablet, extended release 1 tab(s) orally once a day 22-Aug-2022 20:17 metoprolol succinate 25 mg oral tablet, extended release 1 tab(s) orally once a day 22-Aug-2022 20:17 metoprolol succinate 25 mg oral tablet, extended release is continued as metoprolol succinate 25 mg oral tablet, extended release Multiple Vitamins oral tablet 1 tab(s) orally once a day 22-Aug-2022 20:20 Multiple Vitamins oral tablet 1 tab(s) orally once a day 22-Aug-2022 20:20 Multiple Vitamins oral tablet is continued as Multiple Vitamins oral tablet omeprazole 40 mg oral delayed release capsule 1 cap(s) orally once a day 22-Aug-2022 20:18 omeprazole 40 mg oral delayed release capsule 1 cap(s) orally once a day 22-Aug-2022 20:18 omeprazole 40 mg oral delayed release capsule is continued as omeprazole 40 mg oral delayed release capsule sertraline 50 mg oral tablet 1 tab(s) orally once a day 02-Sep-2020 11:03 sertraline 50 mg oral tablet 1 tab(s) orally once a day 02-Sep-2020 11:03 sertraline 50 mg oral tablet is continued as sertraline 50 mg oral tablet solifenacin 5 mg oral tablet 1 tab(s) orally once a day 22-Aug-2022 20:16 solifenacin 5 mg oral tablet 1 tab(s) orally once a day 22-Aug-2022 20:16 solifenacin 5 mg oral tablet is continued as solifenacin 5 mg oral tablet Vitamin D3 1000 intl units (25 mcg) oral capsule 1 cap(s) orally once a day 02-Sep-2020 11:01 Vitamin D3 1000 intl units (25 mcg) oral capsule 1 cap(s) orally once a day 02-Sep-2020 11:01 Vitamin D3 1000 intl units (25 mcg) oral capsule is continued as Vitamin D3 1000 intl units (25 mcg) oral capsule Current OrdersDateHOME MEDICATIONS AT DISCHARGE DateReconciliation Comment/ Additional Information Acetaminophen Tablet (TYLENOL)DOSE = 650 mg Oral Every 4 Hours, PRN Pain - Mild (1-3) 22-Aug-2022 17:56 Acetaminophen is not required Aspirin Chewable Tablet, ChewableDOSE = 81 mg Oral Daily 22-Aug-2022 20:44 Aspirin Chewable is not required Atropine Injectable DOSE = 0.5 mg IntraVenous Push Every 5 Minutes, PRN Bradycardia associated with hypotension 22-Aug-2022 17:57 Atropine Injectable is not required Flecainide Tablet (TAMBOCOR)DOSE = 50 mg Oral Every 12 HoursClinician Notes: One now then 899 and 23-Aug-2022 10:35 flecainide 50 mg oral tablet 1 tab(s) orally 2 times a day on 08/25 and 08/26 then increase to 1.5 tablets 2 times a day starting 08/27/2225-Aug-2022 09:52 Prescription is created for flecainide 50 mg oral tablet Loratadine Tablet (CLARITIN, ALAVERT)DOSE = 10 mg Oral Daily 24-Aug-2022 13:54 Loratadine is not required Magnesium Oxide Tablet (Mag-Ox)DOSE = 400 mg Oral Daily 25-Aug-2022 09:32 magnesium oxide 400 mg oral tablet 1 tab(s) orally once a day 25-Aug-2022 12:31 Magnesium Oxide is continued as magnesium oxide 400 mg oral tablet Metoprolol Succinate Extended Release Tablet, Extended Release (TOPROL-XL)DOSE = 25 mg Oral At BedtimeClinician Notes: hold for HR less than 50 BPM or SBP less than 90 mmhg 23-Aug-2022 12:29 Metoprolol Succinate Extended Release is not required Non-Formulary Medication solifenacin TabletDose = 5 mg Oral DailyPATIENTS OWN MEDS 25-Aug-2022 12:17 Non-Formulary Medication is not required Pantoprazole Enteric Co (more content not included)... Normal [facility] Admission Risk Screen - Adul ton 08-23-2022 Admission Risk Screen - Adult Allergies: Allergies: NKDA: Shell Fish: Facial Swelling, Hives/Urticaria Patient Verification: New W ID Band Applied in my Departmentyes Patient Identity Verified Bypatient ID Band FULL Name, include Middle, spelling matches patient's ID used for verificationyes ID Band Matches Patient ID used for Verficationyes ID Band MRN Matches EMR MRNyes Visitor Restriction: Coronavirus Visitor Restriction: Reasonable restrictions to in-person visitors will be observed due to current coronavirus pandemic. Travel History: COVID-19 Screening Completedno exposure or symptoms(1) Travel or Exposure Past 30 DaysNO travel to International locations in the past 30 days Ebola AlertFor Ebola-like Symptoms: Isolate Patient and Notify Provider/Manager Client For Contact: Notify Provider/Manager Client Advance Directive: Advance Directive/DNRno Advance Directive Information Givenpatient/family declined Jimenez Fall Screen: History of falling (immediate or previous)no (0) Secondary Diagnosisyes (15) Intravenous Therapy/ Heparin/Saline Lockyes (20) Gait/Transferringnormal/bedrest/wheelchair (0) Ambulatory Aidsnone/bedrest/nurse assist (0) Mental Statusoriented to own ability (0) Score: Low risk (<25). Moderate risk (25-44). High risk (>44).35 Jimenez InterventionsMODERATE INTERVENTIONS: *Low Interventions Plus: * falls risk band/sticker applied to patient, *yellow non-skid footwear, *instruct to call for assistance before getting out of bed, *bed/chair/bedside commode/toilet alarms, *sensory devices/ambulatory aides available and in reach, *medications reviewed for potential side effects and care planning. Family Violence Screen: Are you or have you been threatened or abused physically, emotionally, or sexually by anyoneno Do you feel UNSAFE going back to the place where you are livingno Clinical assessment: Are there any apparent signs of injuries/behaviors that could be related to abuse/neglectno Social Service Consult for abuse/neglect needed this visitno Functional Screen: Functional Screen: In the recent/past 2-4 weeks, patient or family have noticedno issues that require a speech/language consult at this time AM-PAC- Basic Mobility/Daily Activity: Patient baseline bedboundno Turning from your back to your side while in a flat bed without using bedrailsnone Moving from lying on your back to sitting on the side of a flat bed without using bedrailsnone Moving to and from bed to chair (including a wheelchair)none Standing up from a chair using your arms (e.g. wheelchair or bedside chair) none To walk in hospital roomnone Climbing 3-5 steps with railingnone Basic Mobility - Total Score24 Putting on and taking off regular lower body clothingnone Bathing (including washing, rinsing, drying)none Putting on and taking off regular upper body clothingnone Toileting, which includes using toilet, bedpan or urinalnone Taking care of personal grooming such as brushing teethnone Eating Mealsnone Daily Activity - Total Score24 Learning Assessment (Patient): Patient is Able to be Assessed for Learningyes Factors Influencing Readiness to Learnacuteness of illness Factors that Impact Ability to Learnnone Devices/Methods Used to Communicateglasses Learning Preferencesskill demonstration Cultural Considerationsnone Developmental Considerationsnone Restorationism Considerationsnone Learning Assessment (Other Learner): Other learner availableno Depression Screen: During the past month, have you often been bothered by feeling down, depressed or hopelessyes During the past month, have you often had little interest or pleasure in doing thingsno Have you had any thoughts of harming anyone elseno (1) Happy Suicide: Risk Screen Not Applicable/Able to Answerable to be screened In the Past Month: Have you wished you were or could go to sleep and not wake upno(1) In the Past Month: Have you had any actual thoughts of killing yourself no(1) Lifetime: Have you ever done, started to do, or prepared to do anything to end your lifeno Happy Suicide Risknegative Adult Nutrition Screen: Have you recently lost weight without tryingno Have you been eating poorly because of a decreased appetiteno Malnutrition Screening Tool Score0 Malnutrition Screening Tool RiskMST = 0 or 1 Not at risk. Eating well with little or no weight loss Nutrition Consult needed this visitno Can Patient Participate in Room Serviceyes Patient requires Paper Dishes/Plastic Utensilsno Pain Screen: Pain Scalenumerical 0-10 Pain Scale Educationteaching provided Current Pain Level3 = Mild Acceptable Pain Level8 = Severe Expression of Pain (nonverbal)none Chronic Painno Spiritual Screen: Are there any cultural, spiritual, yarsani practices/values/needs that are important for us to knowno CAGE: Is this an injure (more content not included)... Normal [facility] BASIC METABOLIC PANELon - Anion gap [Moles/Vol] 11 mmol/L Normal 10 - 20 [facility] Comment on above: Performed By: #### B MP #### [address] [id number] Calcium [Mass/Vol] 8.9 mg/dL Normal 8.6 - 10.3 [facility] Comment on above: Performed By: #### B MP #### [address] [id number] Chloride [Moles/Vol] 102 mmol/L Normal 98 - 107 [facility] Comment on above: Performed By: #### B MP #### [address] [id number] Creatinine [Mass/Vol] 0.92 mg/dL Normal 0.50 - 1.05 [facility] Comment on above: Performed By: #### B MP #### [address] [id number] GFR/1.73 sq M.predicted jaye g non-blacks MDRD (S/P/Bld) [Vol rate/Area] 74 mL/min/{1.73_m2} Normal >90 [facility] Comment on above: Result Comment: CALCULATIONS OF ESTIMATE D GFR ARE PERFORMED USING THE 2020 CKD-EPI STUDY REFIT EQUATION WITHOUT THE RACE VARIABLE FOR THE IDMS-TRACEABLE CREATININE METHODS. https://jasn.asnjournals.org/content//ASN.8782935856 Performed By: #### B MP #### [address] [id number] Glucose [Mass/Vol] 103 mg/dL High 74 - 99 [facility] Comment on above: Performed By: #### B MP #### [address] [id number] HCO3 (Bld) [Moles/Vol] 26 mmol/L Normal 21 - 32 [facility] Comment on above: Performed By: #### B MP #### [address], [place] [id number] Potassium [Moles/Vol] 3.8 mmol/L Normal 3.5 - 5.3 [facility] Comment on above: Performed By: #### B MP #### [address] [id number] Sodium [Moles/Vol] 135 mmol/L Low 136 - 145 [facility] Comment on above: Performed By: #### B MP #### [address] [id number] Urea nitrogen [Mass/Vol] 17 mg/dL Normal 6 - 23 [facility] Comment on above: Performed By: #### B MP #### [address] [id number] CBCon 08-23-2022 Erythrocyte distribution wid th (RBC) [Ratio] 12.5 % Normal 11.5 - 14.5 [facility] Comment on above: Performed By: #### C BC #### [address] [id number] Hematocrit (Bld) [Volume fraction] 39.7 % Normal 3 6.0 - 46.0 [facility] Comment on above: Performed By: #### C BC #### [address] [id number] Hemoglobin (Bld) [Mass/Vol] 13.6 g/dL Normal 12.0 - [address] [facility] Comment on above: Performed By: #### C BC #### [address] [id number] MCHC (RBC) [Mass/Vol] 34.3 g/dL Normal 32.0 - 36.0 [facility] Comment on above: Performed By: #### C BC #### [address] [id number] MCV (RBC) [Entitic vol] 93 fL Normal 80 - 100 [facility] Comment on above: Performed By: #### C BC #### [address] [id number] Platelets (Bld) [#/Vol] 256 10*3/uL Normal 150 - 450 [facility] Comment on above: Performed By: #### C BC #### [address] [id number] RBC 4.25 x10E12/L Normal 4.00 - 5.20 [facility] Comment on above: Performed By: #### C BC #### [address] [id number] WBC (Bld) [#/Vol] 9.2 10*3/uL Normal 4.4 - 11.3 [facility] Comment on above: Performed By: #### C BC #### [address] [id number] Consult-Electrophysiologyon 08-23-2022 Consult-Electrophysiology Service: Service: Electrophysiology Consult: Consult requested by (Attending Name): Skip Kelly Reason: symptomatic bradycardia, bigeminy History of Present Illness: HPI: RASHEEDA HANNA is a 51 year old Female evaluated in [facility] emergency room on 08/22/2022 secondary to palpitations, lightheadedness, and chest pain. Patient has a history of significant burden of PVCs and PACs with associated symptomatic bradycardia and plan for dual-chamber permanent pacemaker implant on 09/01/[address] Wing. Yesterday symptoms of chest pain, palpitations, dizziness, and lightheadedness were worse than typical so she presented to the emergency room. The dizziness and lightheadedness she experiences is worse with change of position but does resolve quickly. She denies syncope or near syncope. Past medical history includes cardiac arrhythmia with PVCs and PACs treated with beta-claudia therapy, normal left ventricular ejection fraction per echocardiogram June 2022, Holter monitor showing PVC burden of 14.8%, symptomatic bradycardia with near syncopal episodes for elective permanent pacemaker implant planned 09/01/2022, and left heart catheterization July 2022 showing no significant coronary artery disease. EP services asked to see and evaluate patient regarding symptomatic bradycardia. Review Family/Social History and ROS: Family History: Family History: reviewed and not pertinent to presenting problem Social History: Smoking Status: former smoker (1) Alcohol Use: denies(1) Drug Use: denies (1) Constitutional: NEGATIVE: Fever, Chills, Anorexia, Weight Loss, Malaise Respiratory: NEGATIVE: Shortness of Breath Cardiac: POSITIVE: Chest Pain, Palpitations; NEGATIVE: Dyspnea on Exertion, Orthopnea Musculoskeletal: NEGATIVE: Decreased ROM, Pain, Swelling, Stiffness, Weakness Neurological: POSITIVE: Dizziness Psychiatric: POSITIVE: Anxiety All Other Systems: All other systems reviewed and are negative Allergies: NKDA: Shell Fish: Facial Swelling, Hives/Urticaria Objective: Objective Information: T PRBPMAPSpO2 [id number]% Date/Time08/23 9: 9: 16: 9: 0:113 9:05 Range(36.4C - 37C ) (38 - 64 ) (18 - 18 ) (110 - 179 )/ (60 - 89 ) (79 - 87 ) (94% - 98% ) Highest temp of 37 C was recorded at 08/23 0:11 Weights 08/22 22:19: Weight in kg (Weight (kg)) 82.8 08/22 22:19: Weight in lbs ((lbs)) 182.5 08/22 22:19: BMI (kg/m2) (BMI (kg/m2)) 35.65 Physical Exam by System: Constitutional: Well developed, awake/alert/oriented x3, no distress, alert and cooperative Eyes: clear sclera ENMT: mucous membranes moist, no apparent injury, no lesions seen Head/Neck: Neck supple, no apparent injury Respiratory/Thorax: Patent airways, normal breath sounds with good chest expansion, thorax symmetric Cardiovascular: regular rate and rhythm, without murmur or rub. Telemetry shows SR with HR 60-100 BPM frequent PVC's and Bigeminy Gastrointestinal: Nondistended, soft, non-tender Musculoskeletal: ROM intact, no joint swelling, normal strength Extremities: normal extremities, no cyanosis , contusions or wounds, no clubbing. no edema. Neurological: alert and oriented x3, intact senses, motor response, normal strength Psychological: Appropriate mood and behavior Skin: Warm and dry, no lesions, no rashes Medications: Medications: Continuous Medications No continuous medications are active Scheduled Medications 1. Aspirin Chewable: 81 mg Oral Daily 2. Flecainide: 50 mg Oral Every 12 Hours 3. Pantoprazole: 40 mg Oral Daily PRN Medications 1. Acetaminophen: 650 mg Oral Every 4 Hours 2. Atropine Injectable: 0.5 mg IntraVenous Push Every 5 Minutes 3. Sodium Chloride 0.9% Injectable Flush: 10 mL IntraVenous Flush Every 8 Hours and as Needed Recent Lab Results: Results: I have reviewed these laboratory results: Basic Metabolic Panel 23-Aug-2022 03:45:00 ResultValue Glucose, Serum 103 H NA 135 L K 3.8 CL 102 Bicarbonate, Serum 26 Anion Gap, Serum 11 BUN 17 CREAT 0.92 GFR Female 74 Calcium, Serum 8.9 Complete Blood Count 23-Aug-2022 03:45:00 ResultValue White Blood Cell Count 9.2 Red Blood Cell Count 4.25 HGB 13.6 HCT 39.7 MCV 93 MCHC 34.3 PLT 256 RDW-CV 12.5 Radiology Results: Results: Impression: No acute cardiopulmonary process radiographically. Xray Chest 1 View [Aug 22 2022 3:34PM] Conclusion: sinus rhythm with frequent PAC's in a pattern of atrial bigeminy Nonspecific intraventricular block Cannot rule out Anteroseptal infarct , age undetermined T wave abnormality, consider inferior ischemia Abnormal ECG Confirmed by Federico Wing ([id number]) on 08/22/2022 3:25:30 PM (more content not included)... Normal [facility] Daily Progress Note-Medicine on 08-23-2022 Daily Progress Note-Medicine Service: Medicine Subjective Data: RASHEEDA HANNA is a 51 year old Female who is Hospital Day # 2. Some bradycardia overnight. Feeling better today however, less dizziness. Still getting symptoms with positional changes however. No chest pain. No dyspnea. Objective Data: Objective Information: T PRBPMAPSpO2 [id number]% Date/Time08/23 14: 14: 16:443 14: 0:113 14:03 Range(36.4C - 37C ) (38 - 75 ) (18 - 18 ) (110 - 179 )/ (59 - 89 ) (79 - 87 ) (94% - 98% ) Highest temp of 37 C was recorded at 08/23 0:11 Pain reported at 08/23 9:05: 0 = None Physical Exam by System: Constitutional: Well developed, awake/alert/oriented x3, no distress, alert and cooperative Eyes: PERRL, EOMI, clear sclera Respiratory/Thorax: Clear to auscultation bilaterally; normal respiratory effort Cardiovascular: Regular rate and rhythm; no murmurs/rubs/gallops; intact distal pulses Gastrointestinal: Nondistended, soft, non-tender, no rebound tenderness or guarding, no masses palpable, +BS Extremities: normal extremities, no cyanosis edema, contusions or wounds, no clubbing Neurological: alert and oriented x3, intact senses, motor response and reflexes, normal strength Psychological: Appropriate mood and behavior Skin: Warm and dry, no lesions, no rashes Recent Lab Results: Results: CBC: 08/23/2022 03:45 \ Hgb / \ 13.6 / WBC Plt 9.2 256 / Hct \ / 39.7 \ RBC: 4.25 MCV: 93 BMP: 08/23/2022 03:45 NA+ Cl- BUN / 135 L 102 17 / Glucose 103 H K+ HCO3- Creat \ 3.8 26 0.92 \ Calcium : 8.9 Anion Gap : 11 Assessment and Plan: Comorbidities: Comorbidityobesity Obesityobesity (BMI 35-39.9) BMI35.65 Code Status: Code StatusFull Code Assessment: Symptomatic bradycardia Bigeminy -EP consult, likely for PPM this admission -chest pain not suspected to be ACS with negative troponins and cath with minimal disease last month -PRN atropine for hemodynamic instability associated with bradycardia -hold her home sertraline given associate with mild bradycardia Incontinence -Resume home meds once reconciled DVT PPx: pharmacologic held due to possibility of procedure tomorrow Code: FULL 08/23/22: Some bradycardia, frequent PVCs on tele Seen by EP, started on flecainide - will monitor with first doses Possible PPM for bradycardia remains on BB per EP Electronic Signatures: Skip Kelly) (Signed 23-Aug-2022 16:31) Authored: Service, Subjective Data, Objective Data, Assessment and Plan, Note Completion Last Updated: 23-Aug-2022 16:31 by Skip Kelly) Normal [facility] Discharge Planning [id number] 08-23-2022 Discharge Planning Note2 [facility]: [facility] [id number] Discharge Planning 08/23/2022 1422 Care Transitions Note Rasheeda Hanna is a 51 year old female who was admitted to [facility] 08/22/2022 with dx of chest pain. Chart reviewed, staff writer spoke with patient- introduced self and explained role. Patient sitting up in bed. She is alert and oriented x3. Patient interacted well with staff writer and answered assessment questions appropriately. Demographics confirmed. PCP Dr. Kayla Dent who she saw in June and have follow-up in October. Pharmacy preference is [facility]. Prior to admission, lives with spouse in a 1 story home. Prior level of functioning independent no assistive device. She completed own adls and iadls. She is still working 42-50 hours a week. Penology Teacher discussed discharge needs/ concerns. She is currently denying any needs/ concerns. Her plan is home. Care Transitions to continue to monitor progression and address needs/ concerns as identified. ASHUTOSH Paulino Assessment: Discharge Planning Assessment [id number] Primary Contact Name and [phone] (spouse) He(1) Lives Withadult child(jose); dependent child(jose); spouse(1) Living Arrangementshouse(1) Stated Reason for AdmissionChest pain dizzy and SOB(1) [place] Resource/Environmental Concernsnone(1) Anticipated Transition [place](1) Services Anticipated at Transitionnon(1) Electronic Signatures: Lou Ferrer (HARRIET) (Signed 23-Aug-2022 14:34) Authored: Discharge Planning, Assessment Last Updated: 23-Aug-2022 14:34 by Lou Ferrer (HARRIET) References: 1. Data Referenced From Patient Profile - Adult v2 22-Aug-2022 22:[address] [facility] Laboratory - Chemistry and C hemistry - challengeon 08-23-2022 Anion gap [Moles/Vol] 11 mmol/L 10 - 20 [facility] Work Phone: Calcium [Mass/Vol] 8.9 mg/dL 8.6 - 10.3 [facility] Work Phone: Chloride [Moles/Vol] 102 mmol/L 98 - 107 [facility] Work Phone: CO2 [Moles/Vol] 26 mmol/L 21 - 32 [facility] Work Phone: Creatinine [Mass/Vol] 0.92 mg/dL See Below [facility] Work Phone: Comment on above: Reference Range: 0.5 0 - 1.05 Glucose [Mass/Vol] 103 mg/dL above high threshold 74 - 99 [facility] Work Phone: Potassium [Moles/Vol] 3.8 mmol/L 3.5 - 5.3 [facility] Work Phone: Sodium [Moles/Vol] 135 mmol/L below low threshold 136 - 14 5 [facility] Work Phone: Urea nitrogen [Mass/Vol] 17 mg/dL 6 - 23 [facility] Work Phone: Laboratory - Hematology and Cell countson 03-08-2023 Erythrocyte distribution wid th (RBC) [Ratio] 12.5 % See Below [facility] Work Phone: Comment on above: Reference Range: 11. 5 - 14.5 Hematocrit (Bld) [Volume fraction] 39.7 % S ee Below [facility] Work Phone: Comment on above: Reference Range: 36. 0 - 46.0 Hemoglobin (Bld) [Mass/Vol] 13.6 g/dL See [place] w [facility] Work Phone: Comment on above: Reference Range: 12. 0 - 16.0 MCHC (RBC) [Mass/Vol] 34.3 g/dL See Below [facility] Work Phone: Comment on above: Reference Range: 32. 0 - 36.0 MCV (RBC) [Entitic vol] 93 fL 80 - 100 [facility] Work Phone: Platelets (Bld) [#/Vol] 256 10*3/uL 150 - 450 [facility] Work Phone: RBC (Bld) [#/Vol] 4.25 {x10E12/L} See Below [facility] Work Phone: Comment on above: Reference Range: 4.0 0 - 5.20 WBC (Bld) [#/Vol] 9.2 10*3/uL 4.4 - 11.3 [facility] Work Phone: No Panel Informationon 08-23 74 {mL/min/1.73m2} >90 [facility] Work Phone: Comment on above: CALCULATIONS OF ESTIMATED GFR ARE PERFOR MED USING THE 2020 CKD-EPI STUDY REFIT EQUATION WITHOUT THE RACE VARIABLE FOR THE IDMS-TRACEABLE CREATININE METHODS.https://jasn.asnjournals.org/content/early/ASN.7977820344 Patient Profile - Adult v2on 08-23-2022 Patient Profile - Adult v2 Profile: Initial Info: How to be AddressedPaula(1) Spoken Language PreferredEnglish (1) Stated Reason for AdmissionChest pain dizzy and SOB Primary Contact Name and [phone] (spouse) He Wants Family/Rep Notified of Admissionn/a; family present Notify PCPdeferred, unable to answer Informed of Patient Visiting Rightsyes [place] Employment Statusemployed Patient Belongingsremains with patient Patient Belongings Remaining with Patientcell phone/electronics; vision aids Medications Brought to Hospitalno General Health: Blood Avoidance/Restrictionsnone(1) Previous Transfusion Reactionno(1) Weight in kg82.8 kilogram(s) Weight in its888.5 pound(s) Weight Methodactual (measured) Scale Typestanding Height in cm152.4 centimeter(s)(2) Height in feet5 feet Height in inches0 inch(es) Height Methodstated BMI (kg/m2)35.65 square meter RSP Based Care: How would you like to participate in your careKept informed and stay involved and don't sugar coat information What is the number one concern for you during this hospitalizationHeart Rate What is the most important thing we can do to support you during this hospitalizationListen to her Is there anything we need to know to best care for youno Substance: Smoking Statusformer smoker Alcohol Usedenies Drug Usedenies Health Mgmt: Symptoms/Conditions Managed at [facility] Are You no (3) Relationship/Environ: Resource/Environmental Concernsnone Primary Source of Support/Comfortspouse Lives Withadult child(jose); dependent child(jose); spouse Living Arrangementshouse Services Anticipated at Transitionnone Anticipated Transition [place] Significant IndicatorsComplete Information Review: Allergies, Home Meds and Significant Events have been Reviewed and Verified with Patient/Familyyes ALLERGY, INTOLERANCE, ADVERSE EVENT: Allergies: NKDA: Active Shell Fish: Food, Facial Swelling, Hives/Urticaria, Active Electronic Signatures: Olga Reyes (ABHISHEK) (Signed 22-Aug-2022 22:30) Authored: Initial Info, General Health, RSP Based Care, Substance, Health Mgmt, Relationship/Environ, Additional Information Last Updated: 22-Aug-2022 22:30 by Olga Reyes (RN) References: 1. Data Referenced From Patient Profile - Preop v3 21-Apr-2021 10:03 2. Data Referenced From 1. Vital Signs 22-Aug-2022 14:46 3. Data Referenced From History and Physical 22-Aug-2022 17:58 Normal [facility] BASIC METABOLIC PANELon 03-0 ANION GAP Canceled Normal [facility] Comment on above: Order Comment: TEST BASIC METABOLIC PANEL WAS CANCELLED, 08/22/2022 20:12 This order is Barbi draw. Retiming 08/22/2022 20:12. Performed By: #### T RPHS #### [address] [id number] BICARBONATE Canceled Normal [facility] Comment on above: Order Comment: TEST BASIC METABOLIC PANEL WAS CANCELLED, 08/22/2022 20:12 This order is Barbi draw. Retiming 08/22/2022 20:12. Performed By: #### T RPHS #### [address], [place] [id number] CALCIUM Canceled Normal [facility] Comment on above: Order Comment: TEST BASIC METABOLIC PANEL WAS CANCELLED, 08/22/2022 20:12 This order is Barbi draw. Retiming 08/22/2022 20:12. Performed By: #### T RPHS #### [address], [place] [phone] CHLORIDE Canceled Normal [facility] Comment on above: Order Comment: TEST BASIC METABOLIC PANEL WAS CANCELLED, 08/22/2022 20:12 This order is Barbi draw. Retiming 08/22/2022 20:12. Performed By: #### T RPHS #### [address], [place] [id number] CREATININE Canceled Normal [facility] Comment on above: Order Comment: TEST BASIC METABOLIC PANEL WAS CANCELLED, 08/22/2022 20:12 This order is Barbi draw. Retiming 08/22/2022 20:12. Performed By: #### T RPHS #### [address] [id number] eGFR FEMALE Canceled Normal [facility] Comment on above: Order Comment: TEST BASIC METABOLIC PANEL WAS CANCELLED, 08/22/2022 20:12 This order is Barbi draw. Retiming 08/22/2022 20:12. Result Comment: CALC ULATIONS OF ESTIMATED GFR ARE PERFORMED USING THE 2020 CKD-EPI STUDY REFIT EQUATION WITHOUT THE RACE VARIABLE FOR THE IDMS-TRACEABLE CREATININE METHODS. https://jasn.asnjournals.org/content/early/ASN.9262064317 Performed By: #### T RPHS #### [address] [id number] eGFR MALE Canceled Normal [facility] Comment on above: Order Comment: TEST BASIC METABOLIC PANEL WAS CANCELLED, 08/22/2022 20:12 This order is Barbi draw. Retiming 08/22/2022 20:12. Result Comment: CALC ULATIONS OF ESTIMATED GFR ARE PERFORMED USING THE 2020 CKD-EPI STUDY REFIT EQUATION WITHOUT THE RACE VARIABLE FOR THE IDMS-TRACEABLE CREATININE METHODS. https://jasn.asnjournals.org/content/early/ASN.3233932330 Performed By: #### T RPHS #### [address] [id number] GLUCOSE Canceled Normal [facility] Comment on above: Order Comment: TEST BASIC METABOLIC PANEL WAS CANCELLED, 08/22/2022 20:12 This order is Barbi draw. Retiming 08/22/2022 20:12. Performed By: #### T RPHS #### [address] [id number] POTASSIUM Canceled Normal [facility] Comment on above: Order Comment: TEST BASIC METABOLIC PANEL WAS CANCELLED, 08/22/2022 20:12 This order is Barbi draw. Retiming 08/22/2022 20:12. Performed By: #### T RPHS #### [address] [id number] SODIUM Canceled Normal [facility] Comment on above: Order Comment: TEST BASIC METABOLIC PANEL WAS CANCELLED, 08/22/2022 20:12 This order is Barbi draw. Retiming 08/22/2022 20:12. Performed By: #### T [facility] #### [address] [id number] UREA NITROGEN Canceled Normal [facility] Comment on above: Order Comment: TEST BASIC METABOLIC PANEL WAS CANCELLED, 08/22/2022 20:12 This order is Barbi draw. Retiming 08/22/2022 20:12. Performed By: #### T [facility] #### [address] [id number] CBCon 08-22-2022 HCT Canceled Normal [facility] Comment on above: Order Comment: TEST CBC WAS CANCELLED, 08/22/2022 20:12 This order is for AM draw. Rejswunj74/07/2023 20:12. Performed By: #### M G #### [address] [id number] HGB Canceled Normal [facility] Comment on above: Order Comment: TEST CBC WAS CANCELLED, 08/22/2022 20:12 This order is for AM draw. Ypcobglz46/07/2023 20:12. Performed By: #### M G #### [address] [id number] MCHC Canceled Normal [facility] Comment on above: Order Comment: TEST CBC WAS CANCELLED, 08/22/2022 20:12 This order is for AM draw. Wiorkket62/07/2023 20:12. Performed By: #### M G #### [address], [place] [phone] MCV Canceled Normal [facility] Comment on above: Order Comment: TEST CBC WAS CANCELLED, 08/22/2022 20:12 This order is for AM draw. Bxdpscmm29/07/2023 20:12. Performed By: #### M G #### [address] [id number] NUCLEATED RBC Canceled Normal [facility] Comment on above: Order Comment: TEST CBC WAS CANCELLED, 08/22/2022 20:12 This order is for AM draw. Rhtokfzx54/07/2023 20:12. Performed By: #### M G #### [address] [id number] PLT Canceled Normal [facility] Comment on above: Order Comment: TEST CBC WAS CANCELLED, 08/22/2022 20:12 This order is for AM draw. Nwbctcee55/07/2023 20:12. Performed By: #### M G #### [address] [id number] RBC Canceled Normal [facility] Comment on above: Order Comment: TEST CBC WAS CANCELLED, 08/22/2022 20:12 This order is for AM draw. Pmhumxys57/07/2023 20:12. Performed By: #### M G #### [address] [id number] RDW-CV Canceled Normal [facility] Comment on above: Order Comment: TEST CBC WAS CANCELLED, 08/22/2022 20:12 This order is for AM draw. Phwargxc31/07/2023 20:12. Performed By: #### M G #### [address] [id number] WBC Canceled Normal [facility] Comment on above: Order Comment: TEST CBC WAS CANCELLED, 08/22/2022 20:12 This order is for AM draw. Fdusjvui76/07/2023 20:12. Performed By: #### M G #### [address] [id number] CBC AND DIFFERENTIALon 08-22 % AUTOMATED IMMATURE GRAN 0.4 % Normal 0.0 - 0.9 [facility] Comment on above: Result Comment: Patricia ture Granulocyte Count (IG) includes promyelocytes, myelocytes and metamyelocytes but does not include bands. Percent differential counts (%) should be interpreted in the context of the absolute cell counts (cells/L). Performed By: #### T RPHS #### [address] [id number] Basophils (Bld) [#/Vol] 0.07 10*3/uL Normal 0.00 - 0.[address] [facility] Comment on above: Performed By: #### T RPHS #### [address] [id number] Basophils/100 WBC (Bld) 0.7 % Normal 0.0 - 2.0 U [facility] Comment on above: Performed By: #### T RPHS #### [address] [id number] Eosinophils (Bld) [#/Vol] 0.12 10*3/uL Normal 0.00 - [address] [facility] Comment on above: Performed By: #### T RPHS #### [address] [id number] Eosinophils/100 WBC (Bld) 1.2 % Normal 0.0 - 6.0 [facility] Comment on above: Performed By: #### T RPHS #### [address] [id number] Erythrocyte distribution wid th (RBC) [Ratio] 12.4 % Normal 11.5 - 14.5 [facility] Comment on above: Performed By: #### T RPHS #### [address] [id number] Hematocrit (Bld) [Volume fraction] 42.8 % Normal 3 6.0 - 46.0 [facility] Comment on above: Performed By: #### T RPHS #### [address] [id number] Hemoglobin (Bld) [Mass/Vol] 14.6 g/dL Normal 12.0 - [address] [facility] Comment on above: Performed By: #### T RPHS #### [address] [id number] Lymphocytes (Bld) [#/Vol] 2.38 10*3/uL Normal 1.20 - [address] [facility] Comment on above: Performed By: #### T RPHS #### [address] [id number] Lymphocytes/100 WBC (Bld) 22.9 % Normal 13.0 - 44. 0 [facility] Comment on above: Performed By: #### T RPHS #### [address] [id number] MCHC (RBC) [Mass/Vol] 34.1 g/dL Normal 32.0 - 36.0 [facility] Comment on above: Performed By: #### T RPHS #### [address] [id number] MCV (RBC) [Entitic vol] 93 fL Normal 80 - 100 [facility] Comment on above: Performed By: #### T RPHS #### [address] [id number] Monocytes (Bld) [#/Vol] 0.80 10*3/uL Normal 0.10 - 1.[address] [facility] Comment on above: Performed By: #### T RPHS #### [address] [id number] Monocytes/100 WBC (Bld) 7.7 % Normal 2.0 - 10.0 [facility] Comment on above: Performed By: #### T RPHS #### [address] [id number] Neutrophils (Bld) [#/Vol] 7.00 10*3/uL Normal 1.20 - [address] [facility] Comment on above: Performed By: #### T RPHS #### [address] [id number] Neutrophils/100 WBC (Bld) 67.1 % Normal 40.0 - 80. 0 [facility] Comment on above: Performed By: #### T RPHS #### [address] [id number] Platelets (Bld) [#/Vol] 285 10*3/uL Normal 150 - 450 [facility] Comment on above: Performed By: #### T RPHS #### [address] [id number] RBC 4.58 x10E12/L Normal 4.00 - 5.20 [facility] Comment on above: Performed By: #### T RPHS #### [address] [id number] WBC (Bld) [#/Vol] 10.4 10*3/uL Normal 4.4 - 11.3 [facility] Comment on above: Performed By: #### T RPHS #### [address] [id number] COMPREHENSIVE PANELon 2022 Albumin [Mass/Vol] 4.3 g/dL Normal 3.4 - 5.0 [facility] Comment on above: Performed By: #### T RPHS #### [address] [id number] ALP [Catalytic activity/Vol] 80 U/L Normal 33 - [address] [facility] Comment on above: Performed By: #### T RPHS #### [address] [id number] ALT [Catalytic activity/Vol] 29 U/L Normal 7 - 45 [facility] Comment on above: Result Comment: Selam ents treated with Sulfasalazine may generate falsely decreased results for ALT. Performed By: #### T RPHS #### [address] [id number] Anion gap [Moles/Vol] 13 mmol/L Normal 10 - 20 [facility] Comment on above: Performed By: #### T RPHS #### [address] [id number] AST [Catalytic activity/Vol] 22 U/L Normal 9 - 39 [facility] Comment on above: Performed By: #### T RPHS #### [address] [id number] Bilirubin [Mass/Vol] 0.4 mg/dL Normal 0.0 - 1.2 [facility] Comment on above: Performed By: #### T RPHS #### [address] [id number] Calcium [Mass/Vol] 9.4 mg/dL Normal 8.6 - 10.3 [facility] Comment on above: Performed By: #### T RPHS #### [address] [id number] Chloride [Moles/Vol] 102 mmol/L Normal 98 - 107 [facility] Comment on above: Performed By: #### T RPHS #### [address] [id number] Creatinine [Mass/Vol] 0.93 mg/dL Normal 0.50 - 1.05 [facility] Comment on above: Performed By: #### T RPHS #### [address] [id number] GFR/1.73 sq M.predicted jaye g non-blacks MDRD (S/P/Bld) [Vol rate/Area] 73 mL/min/{1.73_m2} Normal >90 [facility] Comment on above: Result Comment: CALCULATIONS OF ESTIMATE D GFR ARE PERFORMED USING THE 2020 CKD-EPI STUDY REFIT EQUATION WITHOUT THE RACE VARIABLE FOR THE IDMS-TRACEABLE CREATININE METHODS. https://jasn.asnjournals.org/content/early/ASN.3706254921 Performed By: #### T RPHS #### [id number] [address] [id number] Glucose [Mass/Vol] 92 mg/dL Normal 74 - 99 [facility] Comment on above: Performed By: #### T RP #### [address] [id number] HCO3 (Bld) [Moles/Vol] 28 mmol/L Normal 21 - 32 [facility] Comment on above: Performed By: #### T RP #### [address] [id number] Potassium [Moles/Vol] 3.8 mmol/L Normal 3.5 - 5.3 [facility] Comment on above: Performed By: #### T RP #### [address] [id number] Protein [Mass/Vol] 7.8 g/dL Normal 6.4 - 8.2 [facility] Comment on above: Performed By: #### T RP #### [address] [id number] Sodium [Moles/Vol] 139 mmol/L Normal 136 - 145 [facility] Comment on above: Performed By: #### T RP #### [address] [id number] Urea nitrogen [Mass/Vol] 16 mg/dL Normal 6 - 23 [facility] Comment on above: Performed By: #### T RP #### [address] [id number] Complete Blood Count + Diffe rentialon 08-22-2022 Basophils/100 WBC (Bld) 0.7 % 0.0 - 2.0 M [facility] [place] Work Phone: Erythrocyte distribution wid th (RBC) [Ratio] 12.4 % See Below [facility] [place] Work Phone: Comment on above: Reference Range: 11. 5 - 14.5 Hematocrit (Bld) [Volume fraction] 42.8 % S ee Below [facility] [place] Work Phone: Comment on above: Reference Range: 36. 0 - 46.0 Hemoglobin (Bld) [Mass/Vol] 14.6 g/dL [facility] [place] Work Phone: Comment on above: Reference Range: 12. 0 - 16.0 Lymphocytes/100 WBC (Bld) 22.9 % See Below [facility] [place] Work Phone: Comment on above: Reference Range: 13. 0 - 44.0 MCHC (RBC) [Mass/Vol] 34.1 g/dL See Below [facility] Work Phone: Comment on above: Reference Range: 32. 0 - 36.0 MCV (RBC) [Entitic vol] 93 fL 80 - 100 [facility] [place] Work Phone: Monocytes/100 WBC (Bld) 7.7 % 2.0 - 10.0 [facility] [place] Work Phone: Neutrophils/100 WBC (Bld) 67.1 % See Below [facility] [place] Work Phone: Comment on above: Reference Range: 40. 0 - 80.0 Platelets (Bld) [#/Vol] 285 10*3/uL 150 - 450 [facility] [place] Work Phone: RBC (Bld) [#/Vol] 4.58 {x10E12/L} See Below [facility] [place] Work Phone: Comment on above: Reference Range: 4.0 0 - 5.20 WBC (Bld) [#/Vol] 10.4 10*3/uL 4.4 - 11.3 [facility] [place] Work Phone: Complete Blood Count + Differential 0.07 {x10E9/L} See Below [facility] Work Phone: Comment on above: Reference Range: 0.0 0 - 0.10 Complete Blood Count + Differential 0.12 {x10E9/L} See Below [facility] Work Phone: Comment on above: Reference Range: 0.0 0 - 0.70 Complete Blood Count + Differential 0.80 {x10E9/L} See Below [facility] Work Phone: Comment on above: Reference Range: 0.1 0 - 1.00 Complete Blood Count + Differential 2.38 {x10E9/L} See Below [facility] Work Phone: Comment on above: Reference Range: 1.2 0 - 4.80 Complete Blood Count + Differential 7.00 {x10E9/L} See Below [facility] Work Phone: Comment on above: Reference Range: 1.2 0 - 7.70 Complete Blood Count + Differential 1.2 % 0.0 - 6.0 [facility] Work Phone: Complete Blood Count + Differential 0.4 % 0.0 - 0.9 [facility] Work Phone: Comment on above: Immature Granulocyte Count (IG) includes promyelocytes, myelocytes and metamyelocytes but does not include bands. Percent differential counts (%) should be interpreted in the context of the absolute cell counts (cells/L). Covid 19 Resultson 3 SARS-CoV-2 (COVID-19) RNA REYNALDO+probe Ql (Unsp spec) NEGATIVE COVID-19 Test Coronaviruses are common world-wide and are the cause of many common colds. SARS-COV2 is a new coronavirus that began circulating worldwide in 2019 so we are calling it COVID-19. It has been estimated that four out of five patients with COVID-19 will recover at home without the need for medical attention. Symptoms of COVID-19 may include cough, fever, shortness of breath, loss of taste or smell and other flu-like symptoms including chills, sore muscles, sore throat, and headache. Severe illness is more common in older people and people with other health problems such as high blood pressure, obesity, and immune system problems. If the test is positive, you have COVID-19. You will be contacted by the ordering physicians office and instructed to remain on home isolation, in accordance with CDC guidelines. You may also be contacted by the [facility] to see if any of your close contacts may have been exposed to the virus and need to quarantine. If the test is negative, you likely do not have COVID-19 at this time, but you still may have a different illness that can spread to other people (like Influenza, or the Flu) and could still be at risk for getting COVID-19. We recommend that you stay away from other people to limit the spread of illness until your symptoms are improving and you are fever-free for 24 hours without the use of fever lowering medications such as acetaminophen or ibuprofen. No test is 100% accurate so if you are still concerned you may have COVID-19, talk to your doctor about the need to continue to stay away from others. Medicines Unless your provider told you not to use the following: Acetaminophen (Tylenol and others) is generally safe. Anti-inflammatory medications, such as Ibuprofen (Advil or Motrin) or Naproxen (Aleve) can also be used. Vkjh-djf-xzujqlc cough and cold medicines can be used according to the instructions on the package. Some gvcc-dmf-fiffewy medicines also contain acetaminophen. Make sure you are not taking more than your recommended dose. For those not hospitalized, there is no specific treatment available for this illness. Antibiotics do not treat Coronaviruses. Follow-Up Follow up with your doctor by scheduling a virtual visit or consider follow-up at one of our urgent care fever clinics. If you are having difficulty breathing, or are very weak and having difficulty standing, this is a medical emergency. Call 911 or have someone take you to the nearest emergency room immediately. If possible, wear a facemask. Additional guidance from the CDC for patients who tested POSITIVE for COVID-19 How to isolate: Isolate yourself in a specific room at home and limit your contact with others. Use a separate bathroom from other members of the household, when possible. Leave home only to get essential medical care. Do not go to work, school or public areas. Avoid using public transportation, ride-sharing, or taxis. Restrict contact with pets and other animals. If you must care for your pet or be around animals while you are sick, wash your hands before and after your interaction and wear a facemask. Make sure that shared spaces in the home have good airflow, such as by an air conditioner or an opened window, weather permitting. Personal Hygiene Procedures: Wear a face mask when in the same room as other people or pets. If a face mask interferes with your breathing, others should wear a mask when sharing space with you. Frequent hand-washing: wash your hands with soap and water for at least 20 seconds. If soap and water are not available, use alcohol-based hand chemical laboratory technician. Avoid touching your eyes, nose, and mouth with unwashed hands. Household Hygiene Procedures: Avoid sharing personal household items such as dishes, glassware, cups, eating utensils, towels or bedding with other people or pets in your home. After use, these items should be washed with soap and hot water. Disinfect all high-touch surfaces every day with antibacterial cleaning solutions such as Lysol wipes, bleach, cleansers, etc. High-touch surfaces include tabletops, doorknobs, bathroom fixtures, toilets, phones, keyboards, tablets and bedside tables. Immediately clean any surfaces that may have blood, poop or body fluids on them, using antibacterial cleaning solutions such as Lysol wipes, bleach, cleansers, etc. If clothing or bedding come into contact with blood, poop or body fluids, they should be washed immediately. Follow the directions on the laundry detergent and clothing labels but hot water is recommended when possible. Stopping home isolation precautions: If possible, consult your doctor before stopping home isolation precautions. According to the CDC, you can discontinue home isolation precautions when you have met both of these criteria: Your fever and respiratory symptoms have been gone for 24 wan (more content not included)... Normal [facility] Electrocardiogram 12 Leadon 08-22-2022 Electrocardiogram 12 Lead Ventricular Ra te 80 Atrial Rate 80 QRS Duration 132 Q-T Interval 400 QTC Calculation(Bazett) 461 R Grand Chain 74 T Grand Chain -9 QRS Count 14 Q Onset 207 T Offset 407 QTC Fredericia 440 Diagnosis Class Abnormal Diagnosis sinus rhythm with frequent PAC's in a pattern of atrial bigeminy Nonspecific intraventricular block Cannot rule out Anteroseptal infarct , age undetermined T wave abnormality, consider inferior ischemia Abnormal ECG Confirmed by Federico Wing ([id number]) on 08/22/2022 3:25:30 PM Normal [facility] INFLUENZA A/B, COVID 2019 PC R,SYMPTOMATICon 08-22-2022 INFLUENZA A, PCR Not detected Normal Not Detected [facility] Comment on above: Result Comment: Resp iratory virus testing is performed routinely by PCR for Influenza A/B and RSV. Not Detected results do not preclude Influenza A/B or RSV infections since the adequacy of sample collection or low viral burden may impact the clinical sensitivity of this test method. Performed By: #### [facility] #### [address] [id number] INFLUENZA B, PCR Not detected Normal Not Detected [facility] Comment on above: Result Comment: Resp iratory virus testing is performed routinely by PCR for Influenza A/B and RSV. Not Detected results do not preclude Influenza A/B or RSV infections since the adequacy of sample collection or low viral burden may impact the clinical sensitivity of this test method. Performed By: #### T [facility] #### [address] [id number] SARS-CoV-2 (COVID-19) RNA REYNALDO+probe Ql (Unsp spec) Not detected Normal Not Detected [facility] Comment on above: Result Comment: . This test has received FDA Emergency Use Authorization (EUA) and has been verified by [facility]. This test is only authorized for the duration of time that circumstances exist to justify the authorization of the emergency use of in vitro diagnostic tests for the detection of SARS-CoV-2 virus and/or diagnosis of COVID-19 infection under section 564(b)(1) of the Act, 21 U.S.C. 360bbb-3(b)(1), unless the authorization is terminated or revoked sooner. [facility] is certified under CLIA-88 as qualified to perform high complexity testing. Testing is performed in the [facility] laboratory located at [address] [place] [address]. SARS-CoV-2/Flu/RSV Multiplex Test: Fact sheet for providers: https://www.fda.gov/media/798843/download Fact sheet for patients: https://www.fda.gov/media/377342/download Performed By: #### T [facility] #### [address] [id number] Lab Specimen Source Nasal, Nasopharyngeal Normal [facility] Comment on above: Performed By: #### T [facility] #### [address] [id number] INFLUENZA A/B, COVID 2019 PCR,SYMPTOMATIC Not detected See Below -[facility] Work Phone: Comment on above: Reference Range: Not Detected.This test has received [facility] Emergency Use Authorization (EUA) and has been verified by [facility]. This test is only authorized for the duration of time that circumstances exist to justify the authorization of the emergency use of in vitro diagnostic tests for the detection of SARS-CoV-2 virus and/or diagnosis of COVID-19 infection under section 564(b)(1) of the Act, 21 U.S.C. 360bbb-3(b)(1), unless the authorization is terminated or revoked sooner. [facility] is certified under CLIA-88 as qualified to perform high complexity testing. Testing is performed in the [facility] laboratory located at [address] [place] [address].SARS-CoV-2/Flu/RSV Multiplex Test: Fact sheet for providers: https://www.fda.gov/media/590445/downloadFact sheet for patients: https://www.fda.gov/media/986853/download Reference Range: Not Detected Respiratory virus testing is performed routinely by PCR for Influenza A/B and RSV. Not Detected results do not preclude Influenza A/B or RSV infections since the adequacy of sample collection or low viral burden may impact the clinical sensitivity of this test method. SOURCE: Nasal, Nasop haryngealReference Range: Not Detected Respiratory virus testing is performed routinely by PCR for Influenza A/B and RSV. Not Detected results do not preclude Influenza A/B or RSV infections since the adequacy of sample collection or low viral burden may impact the clinical sensitivity of this test method. Laboratory - Chemistry and C hemistry - challengeon 08-22-2022 Albumin BCP dye [Mass/Vol] 4.3 g/dL 3.4 - 5.0 [facility] Work Phone: ALP [Catalytic activity/Vol] 80 U/L 33 - 11 0 [facility] Work Phone: ALT With P-5'-P [Catalytic activity/Vol] 29 U/L 7 - 45 [facility] Work Phone: Comment on above: Patients treated wit h Sulfasalazine may generate falsely decreased results for ALT. Anion gap [Moles/Vol] 13 mmol/L 10 - 20 [facility] Work Phone: AST With P-5'-P [Catalytic activity/Vol] 22 U/L 9 - 39 [facility] Work Phone: Bilirubin [Mass/Vol] 0.4 mg/dL 0.0 - 1.2 -[facility] Work Phone: Calcium [Mass/Vol] 9.4 mg/dL 8.6 - 10.3 [facility] Work Phone: Chloride [Moles/Vol] 102 mmol/L 98 - 107 -[facility] Work Phone: CO2 [Moles/Vol] 28 mmol/L 21 - 32 [facility] Work Phone: Creatinine [Mass/Vol] 0.93 mg/dL See Below [facility] Work Phone: Comment on above: Reference Range: 0.5 0 - 1.05 Glucose [Mass/Vol] 92 mg/dL 74 - 99 [facility] Work Phone: Potassium [Moles/Vol] 3.8 mmol/L 3.5 - 5.3 [facility] Work Phone: Protein [Mass/Vol] 7.8 g/dL 6.4 - 8.2 [facility] Work Phone: Sodium [Moles/Vol] 139 mmol/L 136 - 145 [facility] Work Phone: Urea nitrogen [Mass/Vol] 16 mg/dL 6 - 23 [facility] Work Phone: Laboratory - Coagulationon 0 08-22-2022 INR Coag (PPP) [Relative time] 1.1 {INR} 0.9 - 1.1 [facility] Work Phone: PT Coag (PPP) [Time] 12.6 s 9.8 - 13.4 [facility] Work Phone: MAGNESIUMon 08-22-2022 Magnesium [Mass/Vol] 2.05 mg/dL Normal 1.60 - 2.40 [facility] Comment on above: Performed By: #### M G #### [address] [id number] Magnesium, Serumon Magnesium [Mass/Vol] 2.05 mg/dL See Below [facility] Work Phone: Comment on above: Reference Range: 1.6 0 - 2.40 No Panel Informationon 08-22 73 {mL/min/1.73m2} >90 [facility] Work Phone: Comment on above: CALCULATIONS OF ESTIMATED GFR ARE PERFOR MED USING THE 2020 CKD-EPI STUDY REFIT EQUATION WITHOUT THE RACE VARIABLE FOR THE IDMS-TRACEABLE CREATININE METHODS.https://jasn.asnjournals.org/content/early/ASN.3370420374 https://QSKQYBFWMIPYC99:8080/musescripts/museweb.dll?RetrieveTestByDateTime?Selam xcoAP=[id number]&Date=12-18-2022&Time=14%3a40%3a33%3a00&TestType=ECG&Site=11&Outp utType=PDF&Ext=PDF [facility] Work Phone: sinus rhythm with frequent PAC's in a pattern o f atrial bigeminy [facility] [place] Work Phone: Abnormal [facility] [place] Work Phone: [phone] [facility] [place] Work Phone: [phone] [facility] [place] Work Phone: [phone] [facility] [place] Work Phone: [phone] [facility] [place] Work Phone: -[phone] [facility] [place] Work Phone: [phone] [facility] [place] Work Phone: [phone] [facility] [place] Work Phone: [phone] [facility] [place] Work Phone: [phone] [facility] [place] Work Phone: [phone] [facility] [place] Work Phone: Order Reconciliationon 08-22 Order Reconciliation Page 1 Admission Reconciliation Document Reconciliation Type: ED to Observation requested on behalf of Brian Curran (Physician) done by Brian Curran) ED to Observation - Partial Reconciliation: 22-Aug-2022 17:56 by: Skip Kelly) ED to Observation - AutoLinked: 22-Aug-2022 20:30 by: [employer], [employer] (ADMIN) ED to Observation - Reconciliation: 22-Aug-2022 20:44 by: Brian Curran) ED to Observation - Reset to Incomplete: 23-Aug-2022 19:31 by: Brian Curran) ED to Observation - Reconciliation: 23-Aug-2022 19:32 by: Brian Curran) Home MedicationsEnteredLast Dose TakenReconciled with current Order Reconciliation Comment/ Additional Information Aspirin Low Dose 81 orally once a [id number] Aspirin Chewable Tablet, ChewableDOSE = 81 mg Oral DailyAspirin Low Dose continued as the inpatient order Aspirin Chewable B Complex 50 oral tablet, extended release 1 tab(s) orally once a day 22-Aug-2022 Reviewed and Held Detrol LA 4 mg oral capsule, extended release 1 cap(s) orally once a day 22-Aug-2022 EnteredInError EPINEPHrine 0.3 mg injectable kit 0.3 milliliter(s) injectable once a day, As Needed [id number] Reviewed and Held ferrous sulfate 200 mg (65 mg elemental iron) oral tablet 2 tab(s) orally once a [id number] Reviewed and Held metoprolol succinate 25 mg oral tablet, extended release 1 tab(s) orally once a [id number] Reviewed and Held Multiple Vitamins oral tablet 1 tab(s) orally once a [id number] Reviewed and Held omeprazole 40 mg oral delayed release capsule 1 cap(s) orally once a day 22-Aug-2022 Pantoprazole Enteric Coated Tablet (PROTONIX)DOSE = 40 mg Oral Dailyomeprazole 40 mg oral delayed release capsule continued as the inpatient order Pantoprazole sertraline 50 mg oral tablet 1 tab(s) orally once a [id number] Sertraline Tablet (ZOLOFT)DOSE = 50 mg Oral Dailysertraline 50 mg oral tablet continued as the inpatient order Sertraline solifenacin 5 mg oral tablet 1 tab(s) orally once a [id number] Reviewed and Held Vitamin D3 1000 intl units (25 mcg) oral capsule 1 cap(s) orally once a day 22-Aug-2022 Reviewed and Held Additional Current Orders Acetaminophen Tablet (TYLENOL)DOSE = 650 mg Oral Every 4 Hours, PRN Pain - Mild (1-3) Atropine Injectable DOSE = 0.5 mg IntraVenous Push Every 5 Minutes, PRN Bradycardia associated with hypotension Flecainide Tablet (TAMBOCOR)DOSE = 50 mg Oral Every 12 HoursClinician Notes: One now then 0900 and 2100 Metoprolol Succinate Extended Release Tablet, Extended Release (TOPROL-XL)DOSE = 25 mg Oral At BedtimeClinician Notes: hold for HR less than 50 BPM or SBP less than 90 mmhg Sodium Chloride 0.9% Injectable Flush via Peripheral LineVolume = 10 mL IntraVenous Flush Every 8 Hours and as Needed Normal [facility] PT/INRon 08-22-2022 PT Coag (PPP) [Time] 12.6 s Normal 9.8 - 13.4 [facility] Comment on above: Performed By: #### [facility] #### [address] [id number] PT, INR 1.1 Normal 0.9 - 1.1 [facility] Comment on above: Performed By: #### T [facility] #### [address] [id number] Provider Note - ED v3on Provider Note - ED v3 Provider Note: Chart Review: ED NOTES ED NOTES: Chief Complaint: Chest pain Independent Historians: Patient External Records Reviewed: Limitations to History: None History of Present Illness: This is a 51-year-old female with a prior history of palpitations presenting for evaluation of chest pain and lightheadedness. Patient reports that she follows with Dr. Wing with cardiology as an outpatient and is scheduled for pacemaker placement on Sunday due to symptomatic bradycardia. Patient has been previously worked up for her palpitations and has had significant burden of PVCs and PACs. Patient reports today that her pain has worsened that she typically experiences with her PVCs. Patient also is experiencing severe lightheadedness with standing that is worse than normal. No prior history of CAD or cardiac stents. No lower leg swelling. No vomiting or diarrhea. No recent illness. PMFSH: As per HPI, otherwise nurses notes reviewed in EMR Physical Exam Constitutional: Vital signs per nursing notes. Well developed, well nourished. No acute distress. Psychiatric: alert and oriented to person, place, and time; no abnormalities of mood or affect; memory intact Eyes: PERRL; conjunctivae and lids normal; EOMI ENT: MMM Neck: neck supple, no meningismus; trachea midline without deviation Chest: no masses or tenderness Respiratory: normal respiratory effort and excursion, lungs CTAB Cardiovascular: bradycardic; symmetric pulses; no edema; normal capillary refill; distal pulses present Neurological: normal speech; CN II-XII grossly normal, motor and sensory function intact; no nystagmus GI: no masses, tenderness, rebound or guarding Musculoskeletal: no deformity Skin: normal to inspection; normal to palpation; no rash GCS: 15 HISTORY OF PRESENTING ILLNESS RASHEEDA is a 51 year old Female and was seen by me at 22-Aug-2022 14:51 for a chief complaint of chest pain (chest pain and dizzy today ot scheduled Sunday for a pacemaker d/t low HR)(1). 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 OUTPATIENT MEDICATIONS: Home Medications Review Status for Reconciliation: N/A Med Status: No Current Medications Drug Name: B Complex 50 oral tablet, extended release Instructions: 1 tab(s) orally once a day Drug Name: Vitamin D3 1000 intl units (25 mcg) oral capsule Instructions: 1 cap(s) orally once a day Drug Name: ferrous sulfate 200 mg (65 mg elemental iron) oral tablet Instructions: 2 tab(s) orally once a day Drug Name: EPINEPHrine 0.3 mg injectable kit Instructions: 0.3 milliliter(s) injectable once a day, As Needed DIRECTED Drug Name: sertraline 50 mg oral tablet Instructions: 1 tab(s) orally once a day Drug Name: Detrol LA 4 mg oral capsule, extended release Instructions: 1 cap(s) orally once a day SIGNIFICANT EVENTS: Clinical Events Description:Surgical Procedure Additional Notes:1. ;2. ;3. ;4. ;5. Description:Surgical Procedure Additional Notes:1. ;2. ;3. ;4. ;5. CRITICAL CARE RESULTS: Recent Lab Results: I have reviewed these laboratory results: Troponin I, High Sensitivity Trending View [id number] 16:27:00 22-Aug-2022 15:09:00 Troponin I, High Sensitivity3 3 Influenza A/B,Covid 2019 PCR,Symptomatic 22-Aug-2022 15:33:00 ResultValue Fluid Source Nasal, Nasopharyngeal Influenza A PCR NOT DETECTED Reference Range: Not Detected Respiratory virus testing is performed routinely by PCR for Influenza A/B and RSV. Not Detected results do not preclude Influenza A/B or RSV infections since the adequacy of sample collection or lo Influenza B PCR NOT DETECTED Reference Range: Not Detected Respiratory virus testing is performed routinely by PCR for Influenza A/B and RSV. Not Detected results do not preclude Influenza A/B or RSV infections since the adequacy of sample collection or lo Coronavirus 2019,PCR NOT DETECTED Reference Range: Not Detected .This test has received FDA Emergency Use Authorization (EUA) and has been verified by [facility]. This test is only authorized for the duration of time that circumsta Complete Blood Count + Differential 22-Aug-2022 15:09:00 ResultValue White Blood Cell Count 10.4 Red Blood Cell Count 4.58 HGB 14.6 HCT 42.8 MCV 93 MCHC 34.1 PLT 285 RDW-CV 12.4 Neutrophil % 67.1 Immature Granulocytes % 0.4 Lymphocyt (more content not included)... Normal [facility] Radiologyon 08-22-2022 XR Chest Single view Normal MP-N [facility] Work Phone: TROPONIN I, HIGH SENSITIVITY on 08-22-2022 TROPONIN I, HIGH SENSITIVITY 3 ng/L Normal 0 - 13 [facility] Comment on above: Result Comment: . Less than 99th percentile of normal range cutoff- Female and children under 18 years old <14 ng/L; Male <21 ng/L: Negative Repeat testing should be performed if clinically indicated. . Female and children under 18 years old 14-50 ng/L; Male 21-50 ng/L: Consistent with possible cardiac damage and possible increased clinical risk. Serial measurements may help to assess extent of myocardial damage. . >50 ng/L: Consistent with cardiac damage, increased clinical risk and myocardial infarction. Serial measurements may help assess extent of myocardial damage. . NOTE: Children less than 1 year old may have higher baseline troponin levels and results should be interpreted in conjunction with the overall clinical context. . NOTE: Troponin I testing is performed using a different testing methodology at [facility] than at other [facility]. Direct result comparisons should only be made within the same method. Performed By: #### T [facility] #### [address] [id number] Tropinin I.cardiac panel Hig h sensitivity method 3 ng/L 0 - 13 [facility] Work Phone: Comment on above: .Less than 99th perc entile of normal range cutoff-Female and children under 18 years old <14 ng/L; Male <21 ng/L: NegativeRepeat testing should be performed if clinically indicated. .Female and children under 18 years old 14-50 ng/L; Male 21-50 ng/L:Consistent with possible cardiac damage and possible increased clinical risk. Serial measurements may help to assess extent of myocardial damage. .>50 ng/L: Consistent with cardiac damage, increased clinical risk andmyocardial infarction. Serial measurements may help assess extent of myocardial damage. . NOTE: Children less than 1 year old may have higher baseline troponin levels and results should be interpreted in conjunction with the overall clinical context. .NOTE: Troponin I testing is performed using a different testing methodology at [facility] than at other [facility]. Direct result comparisons should only be made within the same method. TROPONIN I, HIGH SENSITIVITY 3 ng/L Normal 0 - 13 [facility] Comment on above: Result Comment: . Less than 99th percentile of normal range cutoff- Female and children under 18 years old <14 ng/L; Male <21 ng/L: Negative Repeat testing should be performed if clinically indicated. . Female and children under 18 years old 14-50 ng/L; Male 21-50 ng/L: Consistent with possible cardiac damage and possible increased clinical risk. Serial measurements may help to assess extent of myocardial damage. . >50 ng/L: Consistent with cardiac damage, increased clinical risk and myocardial infarction. Serial measurements may help assess extent of myocardial damage. . NOTE: Children less than 1 year old may have higher baseline troponin levels and results should be interpreted in conjunction with the overall clinical context. . NOTE: Troponin I testing is performed using a different testing methodology at [facility] than at other [facility]. Direct result comparisons should only be made within the same method. Performed By: #### M G #### [address] [phone] TROPONIN I, HIGH SENSITIVITY 3 ng/L Normal 0 - 13 [facility] Comment on above: Result Comment: . Less than 99th percentile of normal range cutoff- Female and children under 18 years old <14 ng/L; Male <21 ng/L: Negative Repeat testing should be performed if clinically indicated. . Female and children under 18 years old 14-50 ng/L; Male 21-50 ng/L: Consistent with possible cardiac damage and possible increased clinical risk. Serial measurements may help to assess extent of myocardial damage. . >50 ng/L: Consistent with cardiac damage, increased clinical risk and myocardial infarction. Serial measurements may help assess extent of myocardial damage. . NOTE: Children less than 1 year old may have higher baseline troponin levels and results should be interpreted in conjunction with the overall clinical context. . NOTE: Troponin I testing is performed using a different testing methodology at [facility] than at other [facility]. Direct result comparisons should only be made within the same method. Performed By: #### T [facility] #### [address] [phone] Tropinin I.cardiac panel Hig h sensitivity method 3 ng/L 0 - 13 -[facility] Work Phone: Comment on above: .Less than 99th perc entile of normal range cutoff-Female and children under 18 years old <14 ng/L; Male <21 ng/L: NegativeRepeat testing should be performed if clinically indicated. .Female and children under 18 years old 14-50 ng/L; Male 21-50 ng/L:Consistent with possible cardiac damage and possible increased clinical risk. Serial measurements may help to assess extent of myocardial damage. .>50 ng/L: Consistent with cardiac damage, increased clinical risk andmyocardial infarction. Serial measurements may help assess extent of myocardial damage. . NOTE: Children less than 1 year old may have higher baseline troponin levels and results should be interpreted in conjunction with the overall clinical context. .NOTE: Troponin I testing is performed using a different testing methodology at [facility] than at other [facility]. Direct result comparisons should only be made within the same method. Tropinin I.cardiac panel Hig h sensitivity method 3 ng/L 0 - 13 [facility] Work Phone: Comment on above: .Less than 99th perc entile of normal range cutoff-Female and children under 18 years old <14 ng/L; Male <21 ng/L: NegativeRepeat testing should be performed if clinically indicated. .Female and children under 18 years old 14-50 ng/L; Male 21-50 ng/L:Consistent with possible cardiac damage and possible increased clinical risk. Serial measurements may help to assess extent of myocardial damage. .>50 ng/L: Consistent with cardiac damage, increased clinical risk andmyocardial infarction. Serial measurements may help assess extent of myocardial damage. . NOTE: Children less than 1 year old may have higher baseline troponin levels and results should be interpreted in conjunction with the overall clinical context. .NOTE: Troponin I testing is performed using a different testing methodology at [facility] than at other [facility]. Direct result comparisons should only be made within the same method. Triage - EDon 08-22-2022 Triage - ED Quick Triage: Are You no Have You Given In The Last 6 Weeksno Are You Currently Breastfeedingno Chart Review: PRIMARY ASSESSMENT RASHEEDA HANNA's primary assessment is Within Defined Limits. The airway is open and patent. Breathing spontaneous and unlabored with clear breath sounds bilaterally. Circulation is normal with good peripheral pulses. Skin is warm and dry and color is normal for race. ARRIVAL INFORMATION Mode of Arrival: private vehicle CHIEF COMPLAINT RASHEEDA HANNA is a Female patient with a chief complaint of chest pain (chest pain and dizzy today ot scheduled Sunday for a pacemaker d/t low HR). Triage Date/Time: 07-Mar-2023 14:46 TIKA: 2 Pain Rating (0-10): 3 = Mild Vital Signs: Temperature: 98.2F ( 36.8C) taken forehead Blood Pressure: 179/87 Mean: Respiratory Rate: 18 Pulse Oximetry: 98% on room air, no respiratory support. Height: 5 feet 0.00 inches. 152.4 CM Weight: 182.9 pounds. Calculated 83.0 kg. (stated) Calculated BMI (kg/m2): 35.736 Calculated BSA (m2) 1.87 Aiken Coma Scale: Best Eye Response: (E4) spontaneous Best Motor Response: (M6) obeys commands Best Verbal Response: (V5) oriented Aiken Score: 15 Allergies: yes Patient has homicidal thoughts: no Symptoms Are POSITIVE For: dyspnea and pain Symptoms Are Negative For: anxiety, chills, diaphoresis, headache, loss of consciousness, nausea, numbness, tingling and weakness Risk Screens Suicide Risk Screen In the Past Month: Have you wished you were or wished you could go to sleep and not wake up no In the Past Month: Have you had any actual thoughts of killing yourself no In Your Lifetime: Have you ever done anything, started to do anything, or prepared to do anything to end your life no Jimenez Fall Scale Screening Has the patient fallen before (or is the patient in the ED as a result of a fall) has not had a fall Does the patient have an impaired gait does not have impaired gait Is the patient cognitively impaired not cognitively impaired Interventions: Jimenez Fall Interventions: LOW INTERVENTIONS: *patient oriented to surroundings and call system, * patient/family falls education completed and documented, *patients fall status communicated during bedside handoff, *whiteboard updated, *mode of toileting discussed with patient, *bed in low position with brakes locked, *call light in reach, * non-skid footwear TRAVEL HISTORY Travel History Coronavirus Screening: no exposure or symptoms Travel Exposure History: NO travel to International locations in the past 30 days PAIN Pain Scale Used: YG Pain Rating (0-10): 3 = Mild Past Medical History: Past Medical History Reviewedyes Electronic Signatures: Michelle Herrera) (Signed 22-Aug-2022 14:49) Entered: Risk Screens, Pain, ABCD, Travel History, Chart Review, Scores, Past Medical History Authored: Quick Triage, Risk Screens, Pain, ABCD, Travel History, Chart Review, Scores, Past Medical History Last Updated: 22-Aug-2022 14:49 by Michelle Herrera ([email or web address]) Normal [facility] Office Visit (Cardiology)on 08-18-2022 Follow-up visit Diagnoses/Problems Assessed Class 2 obesity with body mass index (BMI) of 36.0 to 36.9 in adult (278.00,V85.36) (E66.9,Z68.36) Palpitations (785.1) (R00.2) Never a smoker Premature ventricular contractions (PVCs) (VPCs) (427.69) (I49.3) Sinus node dysfunction (427.81) (I49.5) Orders Class 2 obesity with body mass index (BMI) of 36.0 to 36.9 in adult Healthy Weight Tips; Status:Complete; Done: 18Aug2022 Some eating tips that can help you lose weight.; Status:Complete; Done: 18Aug2022 Class 2 obesity with body mass index (BMI) of 36.0 to 36.9 in adult, Health Maintenance, Palpitations, Premature ventricular contractions (PVCs) (VPCs) Basic Metabolic Panel; Status:Active; Requested for:18Aug2022; Complete Blood Count; Status:Active; Requested for:18Aug2022; PT/INR; Status:Active; Requested for:18Aug2022; Health Maintenance Please bring all medicines, vitamins, and herbal supplements with you when you come to the office.; Status:Complete; Done: 18Aug2022 Palpitations Follow-up visit in 6 weeks Outpatient Follow-up Status: Hold For - Scheduling Requested for: 18Aug2022 Palpitations, Premature ventricular contractions (PVCs) (VPCs) IO EKG Electrocardiogram- 12 Lead; Status:Active - Perform Order; Requested for:18Aug2022; Sinus node dysfunction ICD Implant, Dual Chamber; Status:Active; Requested for:18Aug2022; SocHx: Never a smoker Tobacco Use Screening; Status:Complete; Done: 18Aug2022 Patient Instructions [email or web address] BRING ALL MEDICATIONS IN ORIGINAL BOTTLES TO EVERY APPOINTMENT!!!!!! I, Michelle Jackson LPN, am scribing for and in the presence of, Dr. Federico Wing MD Continue same medications/treatment. Patient educated on proper medication use. Patient educated on risk factor modification. Please bring any lab results from other providers/physicians to your next appointment. Please bring all medicines, vitamins, and herbal supplements with you when you come to the office. Prescriptions will not be filled unless you are compliant with your follow up appointments or have a follow up appointment scheduled as per instruction of your physician. Refills should be requested at the time of your visit. Please sign up for the new patient portal platform through [facility]. If you have not received an invite via your email then call Patient Portal support . They are available Sunday through Sunday, 8 a.m.-8 p.m. IMichell CMA am scribing for and in the presence of Dr. Federico Wing The documentation recorded by Michell Rodas CMA acting as Scribe, in my presence, accurately and completely reflects the service(s) I personally performed and the decision made by me. Chief Complaint TELEGRAPH MECHANIC, Carlos History of Present Illness 51-year-old female referred by Dr. Delgado for evaluation of palpitations and dizziness. Looking at her records she used to followed by Dr. Roe in the past for the same diagnosis. Initially her palpitations were related mostly with PVCs and PACs. She was placed on beta-claudia therapy. She underwent a stress test, echocardiogram and also EKGs. At the beginning of 2022, she had an episode of severe chest discomfort associated with palpitations and she had that in the hospital. An echocardiogram shows normal left ventricular function. A Holter monitor was ordered that showed episodes of PVCs with a burden of premature ventricular contractions approximately 14.8% of the total beats. No evidence of ventricular tachycardia. Patient states that lately she has been noticing dizziness that. For the last 2 weeks. She has had iWatch and is recording her rhythm strips. I have personally reviewed rhythm strips on her phone that shows sinus rhythm with PACs with significant drop of the heart rate into 40 bpm. Patient has been noticing near syncopal episodes. Current EKG shows sinus rhythm at a rate of 60 bpm. QRS duration 90 ms. QT corrected 402 ms. Rhythm strip shows the same pattern. Her cardiac that includes a cardiac catheterization July 2022 that showed no significant coronary artery disease. His stress test in June 2021 shows no exercise-induced chest discomfort no significant ST changes at 89% of maximal heart rate predicted. PACs with aberrant conduction at rest and in recovery. Normal EKG normal stress test. Echocardiogram in June 2021 shows normal left ventricular function of 65% with no evidence of ventricular hypertrophy no significant valvular abnormalities. Vital signs are stable Patient is alert oriented x3 Head normocephalic HEENT normal Neck no nodules. JVD negative Lungs clear to auscultation and percussion Cardiovascular regular rate and rhythm. No murmurs or gallops. Abdomen soft, bowel sounds present. No tenderness organomegaly Extremities no edema in the lower extremities Patient is alert oriented x3 no motor or sensory deficit Skin no cyanosis no pallor Clinical impression 1. (more content not included)... [facility]ening.on 023 Adult depression screening assessment No [facility] art-[place] [address] DO Work Phone: Fall risk assessment a) No falls within the last year [facility]- [place] [address] DO Work Phone: Tobacco use status [facility] b) No [facility] [address] DO Work Phone: Heart and Vascular Office/Cl inic Noteon 08-08-2022 Heart and Vascular Office/Clinic Note Chief Complaint 4 week f/u History of Present Illness Rashedea Hanna is a 51 year old female patient of Dr Gonzalez, recently changed care from Dr. Samara Roe, in [place], [place]. She has frequent ventricular ectopy. Normal Echo done at outside facility. She was experiencing chest pain and palpitations. Dr Gonzalez performed LHC on 07/21/22 which revealed normal coronary arteries. MD had discussed possible Sotalol Drug Load vs EP evaluation. Patient here in follow up. Doing well post cath. No issues to radial acces site. Review of Systems PHQ Score Initial Depression Screen Score: 0 Constitutional: no fever, no chills, no weakness, no fatigue Respiratory: no shortness of breath, no cough, no orthopnea, no wheezing Cardiovascular: no chest pain, no palpitations, no edema Neuro:no dizziness no light headed no syncope Additional ROS info: Except as noted in the above Review of Systems and in the History of Present Illness all other systems have been reviewed and are negative or noncontributory. Physical Exam Vitals & Measurements HR: 66(Peripheral) BP: 118/74 SpO2: 95% HT: 60 in HT: 152 cm WT: 83 kg WT: 182.6 lb BMI: 35.92 General: alert, no acute distress Neck: Supple, noJVD nocarotid bruit Cardiovascular: regular rate and rhythm, no murmur normal peripheral perfusion Respiratory: Lungs CTA, respirations non labored Extremities:no edema Neurological: oriented x 4, LOC appropriate for age, sensation equal & normal bilaterally, speech normal Skin: Warm, dry, intact- Right radial access site is well healed. No bruising, bleeding, or hematoma. Strong radial pulse with good extremity perfusion. Procedure [facility]- Dr Gonzalez 07/21/22 Findings LMT: Normal left main trunk with bifurcation LAD: Normal caliber with no stenosis, reaches the apex. LCx: Normal caliber with no stenosis, codominant, reaches the lateral wall. RCA: Normal caliber with no stenosis, codominant, reaches the inferior wall. Hemodynamics: Normal LVEDP with no gradient across the aortic valve. Left ventriculography: Normal LV systolic function, EF 55-60%, no wall motion abnormalities and normal chamber size with no mitral regurgitation. Conclusions: Normal coronary arteries. Medical therapy is advised. [1] Cardiac Diagnostics Holter Monitor and Echo results from outside facility scanned to chart, per Dr Gonzalez's last OV: Premature ventricular contractions. Ms. Vanessa has multiple PVCs 15% and some 40 runs of triplets couplets, bigeminy, trigeminy, symptomatic. [2] Assessment/Plan 1. Ventricular ectopy (I49.3: Ventricular premature depolarization) Structurally normal heart, normal cors. Continue beta blockade. Discussed Sotalol Drug Load at [facility] vs EP referral. Will refer to EP for further work up/management Ordered: [facility] External Ambulatory Referral 2. NSVT (nonsustained ventricular tachycardia) (I47.29: Other ventricular tachycardia) EP referral Ordered: [facility] External Ambulatory Referral Follow-up With When Contact Information Carlos MCMAHON, Skip Katz Within [address] [place] [phone] Additional Instructions: Problem List/Past Medical History Ongoing No qualifying data Historical No qualifying data Procedure/Surgical History Catheterization of left heart (07/14/2022), Carpal tunnel, section, Cholecystectomy, Tubal ligation, [place] tooth. Medications aspirin 81 mg Oral EC Tab, 81 mg= 1 tab(s), Oral, Daily, 3 refills metoprolol 25 mg ER Tab, 25 mg= 1 tab(s), Oral, Daily, 3 refills omeprazole 40 mg Cap-DR, 40 mg= 1 cap(s), Oral, Daily sertraline 50 mg Tab, 50 mg= 1 tab(s), Oral, Daily Vesicare 5 mg Tab, 5 mg= 1 tab(s), Oral, Daily Allergies shellfish (Hives) Social History Alcohol - Denies Alcohol Use, 06/11/2019 Substance Abuse - Denies Substance Abuse, 06/11/2019 Tobacco - Denies Tobacco Use, 06/11/2019 Never (less than 100 in lifetime) Tobacco Use:. Never Smokeless Tobacco Use:., 07/12/2022 Family History Cardiac arrest: Brother. Primary malignant neoplasm of lung: Mother. [1] Op Note; Skip Gonzalez MD 07/21/2022 13:52 EST [2] Office Visit Note; Skip Gonzalez MD 07/12/2022 17:01 EST [facility] Comment on above: Result Comment: Elec tronically Signed By: Luna DICKINSON CNP\.ayla\Date and Time Signed: 08/08/22 11:21 EST Progress Note-Nurseon 2022 Progress Note-Nurse [id number]:127 [facility] Coding Summary.on 08-07-2022 Coding Summary. [id number] [file] cHNl (more content not included)... Normal [facility] Consent for Treatmenton 07-20 Consent for Treatment [id number]:127 Normal [facility] Coding Summary.on 07-24-2022 Coding Summary. [id number] [file] eWxl (more content not included)... Normal [facility] Operative Reporton 3 Operative Report Indication for Surge ry Abnormal stress test Preoperative Diagnosis Presumed CAD Postoperative Diagnosis Normal coronary arteries Operation Coronary angiography Left ventriculography Hemodynamic measurements of the left ventricle This note is completed immediately following the procedure the date and time of this procedure are the same as this note. Surgeon(s) Skip Gonzalez MD Anesthesia Conscious sedation Estimated Blood Loss Trivial Findings LMT: Normal left main trunk with bifurcation LAD: Normal caliber with no stenosis, reaches the apex. LCx: Normal caliber with no stenosis, codominant, reaches the lateral wall. RCA: Normal caliber with no stenosis, codominant, reaches the inferior wall. Hemodynamics: Normal LVEDP with no gradient across the aortic valve. Left ventriculography: Normal LV systolic function, EF 55-60%, no wall motion abnormalities and normal chamber size with no mitral regurgitation. Conclusions: Normal coronary arteries. Medical therapy is advised. Complications None Technique Following full and informed consent the patient was brought to the [facility] where sterile prep and drape were administered in usual fashion. Anesthesia was obtained in the right wrist with lidocaine after administration of conscious sedation. A 5/6 slender Terumo sheath was placed in the right radial artery without complication. Nitroglycerin and nicardipine were given via the sheath and heparin was given intravenously. A 5 Georgian JACKE catheter was advanced and selectively engaged in the left main coronary artery and right coronary artery each, where selective injections were performed. A pigtail catheter was placed in the left ventricle where hemodynamic measurements the left ventricle were made and a bolus was given for left ventriculography. A pullback gradient was obtained. The sheath was removed with hemostasis obtained by D-Stat radial device at the end of the procedure without complication. Normal [facility] Comment on above: Result Comment: Elec tronically Signed By: Carlos MCMAHON, Skip Katz\.br\Date and Time Signed: 07/21/22 13:53 EST Consent for Procedure/Surger yon 07-18-2022 Consent for Procedure/Surgery [id number]:127 Normal [facility] Discharge Instructionson Discharge Instructions [id number]:127 Normal [facility] Outside Labson 07-18-2022 Outside Labs [id number] CD:127 Normal [facility] Cardiovascular Reporton 06-19 Cardiovascular Report [id number]:127 Normal [facility] Consent for Treatmenton 06-19 Consent for Treatment [id number]:127 Normal [facility] Inpatient Clinical Summaryon 07-14-2022 Inpatient Clinical Summary [place] [id number] Clinical Summary Person Information: Name: RASHEEDA HANNA Age: 51 Years : 1970 Sex: Female PCP: Kayla Dent DO Marital Status: Race: White Ethnicity: Non- or Language: Moldovan Visit Id: Visit Reason: R07.9 I20.0 Speciality: Acuity: Enc Type: Ambulatory/Same Day Surgery Med Service: Cardiovascular Arrival: 07/14/2022 08:30:25 Discharge: Dispo Type: Address: [address] [place] [phone] Provider Notes: Diagnosis: Problems No Problems Documented Smoking Status: Never Smoker Functional Status: Sensory Deficits: History of Falls: Mobility Assistance Prior to Admission: Independent ADLs: Independent Current Level of Assistance for Self-Care/Mobility: Cognitive Status: Allergies shellfish (Hives) Measurements: Height: 152 cm Weight: 83 kg Blood Pressure: 130 mmHg / 68 mmHg BMI: 35.92 kg/m2 Procedures No Procedures Documented Immunizations No Immunizations Documented This Visit Final Med List: aspirin (aspirin 81 mg Oral EC Tab) 1 Tablets By Mouth every day. Refills: 3. metoprolol (metoprolol 25 mg ER Tab) 1 Tablets By Mouth every day. Refills: 3. omeprazole (omeprazole 40 mg Cap-DR) 1 Capsules By Mouth every day. sertraline (sertraline 50 mg Tab) 1 Tablets By Mouth every day. solifenacin (Vesicare 5 mg Tab) 1 Tablets By Mouth every day. Care Team Members: Attending Physician: Skip Gonzalez MD Consulting Physician: Referring Physician: Skip Gonzalez MD Follow up: Type Location [facility] Cardiology Follow Up (FT) FT.Cardiology Clinic 08/10/2022 11:00 AM 08/10/2022 11:15 AM Confirmed Patient Education Information: CV - Cardiovascular Discharge Instructions (CUSTOM) [facility] Inpatient Patient Summaryon 07-14-2022 Inpatient Patient Summary [place] [id number] Patient Discharge Instructions PERSON INFORMATION Name: RASHEEDA HANNA Date of : 1970 Current Date: 07/14/2022 14:04:28 PHYSICIANS Admitting Physician: Skip Gonzalez MD Primary Care Physician: Kayla Dent DO PCP Comment: Discharge Diagnosis: Condition at Discharge: RASHEEDA HANNA has been given the following list of follow-up instructions, prescriptions, and patient education materials: PATIENT FOLLOW-UP INFORMATION Diet: Discharge Activity: Discharge Restrictions: Wound Care Instructions: Remove Your Dressing In Days Call Your Doctor For: IF UNABLE TO CONTACT YOUR PHYSICIAN AND YOU FEEL IT IS AN EMERGENCY, GO TO THE NEAREST EMERGENCY ROOM OR CALL 911 Home Treatment: Devices/Equipment: None Special Services: Additional Instructions: Primary Care Physician to provide the following pending test results: Follow up: In the event that this physician does not participate in your insurance network, please consult with your insurance company to find a nearby participating provider. Type Location [facility] Cardiology Follow Up (FT) FT.Cardiology Clinic 08/10/2022 11:00 AM 08/10/2022 11:15 AM Confirmed Comment: CYNDI Hernandez PAULA J, have received the attached patient education materials/instructions and have verbalized understanding: Patient Signature Date Clinican/Nurse Signature Date HERE ARE THE MEDICATION CHANGES THAT OCCURRED DURING YOUR HOSPITAL STAY Medications to Continue with No Changes Other Medications aspirin (aspirin 81 mg Oral EC Tab) 1 Tablets By Mouth every day. Refills: 3. Last Dose: Next Dose: metoprolol (metoprolol 25 mg ER Tab) 1 Tablets By Mouth every day. Refills: 3. Last Dose: Next Dose: omeprazole (omeprazole 40 mg Cap-DR) 1 Capsules By Mouth every day. Last Dose: Next Dose: sertraline (sertraline 50 mg Tab) 1 Tablets By Mouth every day. Last Dose: Next Dose: solifenacin (Vesicare 5 mg Tab) 1 Tablets By Mouth every day. Last Dose: Next Dose: Comment: MEDICATION LIST PROVIDED FOR YOU IS A LIST OF YOUR CURRENT MEDICATIONS. PLEASE CARRY THIS WITH YOU AT ALL TIMES. aspirin (aspirin 81 mg Oral EC Tab) 1 Tablets By Mouth every day. Refills: 3. metoprolol (metoprolol 25 mg ER Tab) 1 Tablets By Mouth every day. Refills: 3. omeprazole (omeprazole 40 mg Cap-DR) 1 Capsules By Mouth every day. sertraline (sertraline 50 mg Tab) 1 Tablets By Mouth every day. solifenacin (Vesicare 5 mg Tab) 1 Tablets By Mouth every day. Pharmacy Information: Other: [facility] santana Clarke Comment: PATIENT EDUCATION INFORMATION Instructions: [place], [place] CARDIOVASCULAR DISCHARGE INSTRUCTIONS Diet: ? Resume pre-procedure diet. ? Increase water intake the next 2 days to flush dye out of the body. Activity: ? I If radial access: ? Limit your activity today. Do not operate a vehicle, machinery or power tools. ? NO LIFTING OVER 3 POUNDS for 3 days. ? Do not bend your wrist for 24 hours. ? May resume driving in 24 hours. ? No sexual activity for 1 week. ? Let pain/discomfort guide your activity. If you are having pain, stop. ? Return to the Emergency Room if you have trouble breathing, walking or nausea and vomiting. Medications: ? Resume pre-procedure medication, unless otherwise directed. ? Hold the following medications for 48 hours post procedure: Actoplus Met Glucophage Glucophage XR Glucovance Avandamet Fortamet Apo-metformin Glycon Jamie-metformin Glumetza Janumet Metaglip Riomet Glycomet *Minimal pain, soreness and/or discomfort is expected. *You may take OTC non-steroidal anti-inflammatory to manage discomfort, unless contraindicated. If pain is not controlled with the above medications, contact your physician. Site Care: ? Do not remove dressing for 24 hours unless it becomes saturated, then replace. ? Keep site clean and dry; inspect site daily. ? Do not use any lotions, powders, or ointments at the groin or wrist site for 1 week. ? May shower 24 hours after the procedure. Clean site with soap and water. Pat dry and apply band aid. No tub baths, swimming or hot tubs for 3 days Post Procedure: ? Soreness and tenderness to the site can last up to one week. ? Bruising may occur to site. ? A responsible adult should be with you for the first 24 hours after you arrive home. ? Keep follow-up appointment. ? No smoking for 24 hours as it increases the risk of developing blood clots. ? If you are interested in s (more content not included)... Normal [facility] Patient Education - Texton 0 07-14-2022 Patient Education - Text [place], [place] CARDIOVASCULAR DISCHARGE INSTRUCTIONS Diet: ? Resume pre-procedure diet. ? Increase water intake the next 2 days to flush dye out of the body. Activity: ? I If radial access: ? Limit your activity today. Do not operate a vehicle, machinery or power tools. ? NO LIFTING OVER 3 POUNDS for 3 days. ? Do not bend your wrist for 24 hours. ? May resume driving in 24 hours. ? No sexual activity for 1 week. ? Let pain/discomfort guide your activity. If you are having pain, stop. ? Return to the Emergency Room if you have trouble breathing, walking or nausea and vomiting. Medications: ? Resume pre-procedure medication, unless otherwise directed. ? Hold the following medications for 48 hours post procedure: Actoplus Met Glucophage Glucophage XR Glucovance Avandamet Fortamet Apo-metformin Glycon Jamie-metformin Glumetza Janumet Metaglip Riomet Glycomet *Minimal pain, soreness and/or discomfort is expected. *You may take OTC non-steroidal anti-inflammatory to manage discomfort, unless contraindicated. If pain is not controlled with the above medications, contact your physician. Site Care: ? Do not remove dressing for 24 hours unless it becomes saturated, then replace. ? Keep site clean and dry; inspect site daily. ? Do not use any lotions, powders, or ointments at the groin or wrist site for 1 week. ? May shower 24 hours after the procedure. Clean site with soap and water. Pat dry and apply band aid. No tub baths, swimming or hot tubs for 3 days Post Procedure: ? Soreness and tenderness to the site can last up to one week. ? Bruising may occur to site. ? A responsible adult should be with you for the first 24 hours after you arrive home. ? Keep follow-up appointment. ? No smoking for 24 hours as it increases the risk of developing blood clots. ? If you are interested in smoking cessation, contact [facility] at [phone], ext. [phone]. ? In the event you are unable to reach your physician, please call [facility] at [phone] and the hydro sprayer operator will assist you. Seek Immediate Medical Care for: ? Bleeding: Apply continuous pressure to the site and Call 911. ? Should the arm or leg become cold, numb, blue or white call your physician immediately. ? Signs of infection are redness, warmth, swelling, increased tenderness, colored drainage, fever or chills ? Chest pain ? Normal [facility] Echocardiographyon Echocardiography [id number] #1.00CD:127 Normal [facility] Echocardiography [id number] #1.00CD:127 Normal [facility] Heart and Vascular Office/Cl inic Noteon 07-13-2022 Heart and Vascular Office/Clinic Note Chief Complaint New Patient Arrhythmias History of Present Illness HPI: Rasheeda Hanna presents today to establish care. She is accompanied by an adult male. In 2020, the patient began experiencing PVCs and was seen by a wheel of fortune dealer, Dr. Samara Roe, in [place], [place]. She underwent a stress test, echocardiogram, and EKG. She was informed that she had nuisance beats and was advised not to worry about it. Approximately 2 weeks ago, she began to experience chest pain radiating into her shoulders, up into her neck, and between her shoulder blades. She was seen at [facility] and spent the night there. An echocardiogram was performed, which was normal. She also had blood work performed, cardiac enzymes, and a 3-day Holter monitor. The Holter monitor revealed 3 ventricular ectopic beats. Her cardiac enzymes were negative. Her cholesterol was normal. She followed up with her new primary care provider, Dr. Barrett, who recommended she be seen sooner. The patient's PVCs have progressively worsened since 2020. Her chest pain lasted approximately 2 hours. She was given nitroglycerin, which worsened her symptoms. The patient's brother suddenly from a myocardial infarction. Her middle daughter has hypoplastic right heart. The patient denies taking baby aspirin daily. Dr. Roe prescribed metoprolol in the past, but she does not recall if it made a difference. She was also placed on magnesium, which she has been taking twice daily, but she experienced gastrointestinal side effects. The patient takes Zoloft, Vesicare, and omeprazole. Review of Systems PHQ Score Initial Depression Screen Score: 0 Constitutional: no fever, no sweats, no weakness Skin: no rash, no lesions, no bruising/petechiae ENMT: no sore throat, no congestion, no hoarseness Respiratory: no shortness of breath, no cough, no orthopnea, no wheezing Cardiovascular: Positive for chest pain, no palpitations, no edema Gastrointestinal: no nausea, no vomiting, no diarrhea, no GI bleeding Genitourinary: no anuria/oliguria no hematuria Musculoskeletal: no back pain, no trauma Neurologic: no headache, no dizziness, no numbness, no weakness Psychiatric: no sleeping problems, no irritability, no anxiety/depression. Heme/Lymph: no bleeding tendency, no bruising tendency Allergy/Immunologic: no recurrent infections, no impaired immunity Additional ROS info: Except as noted in the above Review of Systems and in the History of Present Illness all other systems have been reviewed and are negative or noncontributory Physical Exam Vitals & Measurements HR: 69(Peripheral) RR: 18 BP: 112/70 SpO2: 98% HT: 60 in HT: 152 cm WT: 83.4 kg WT: 183.48 lb BMI: 36.1 General: alert, no acute distress Skin: warm, dry intact Head: atraumatic, normocephalic Neck: Trachea midline, no JVD, no bruit Eye: normal conjunctiva, sclera clear ENMT: oral mucosa moist Cardiovascular: regular rate and rhythm, no murmur, normal peripheral perfusion Respiratory: Lungs CTA, respirations non labored Chest wall: no deformity. Gastrointestinal: soft, non-distended, no tenderness, no guarding. Back: No tenderness, Normal ROM, Normal alignment. Extremities: no edema, no deformity, no trauma Neurological: oriented x 4, LOC appropriate for age, sensation equal & normal bilaterally, speech normal Psychiatric: cooperative, affect appropriate for age, normal judgement, normal psychiatric thoughts. Assessment/Plan Premature ventricular contractions. Ms. Vanessa has multiple PVCs 15% and some 40 runs of triplets couplets, bigeminy, trigeminy, symptomatic. She did have an episode of chest pain. We will get a heart catheterization, as she has had previous negative stress test. We will set her up with EP, possible sotalol load. ATTESTATION: Documentation services were performed after patient or guardian consented to allow [employer] to record this visit. HENRIETTA social media marketing specialist and provider reviewed before signing. HENRIETTA: Nicol Izaguirre. Follow-up No qualifying data available Problem List/Past Medical History Ongoing No qualifying data Historical No qualifying data Procedure/Surgical History Carpal tunnel, section, Cholecystectomy, Tubal ligation, [place] tooth. Medications aspirin 81 mg Oral EC Tab, 81 mg= 1 tab(s), Oral, Daily, 3 refills metoprolol 25 mg ER Tab, 25 mg= 1 tab(s), Oral, Daily, 3 refills Allergies No Known Allergies Social History Alcohol - Denies Alcohol Use, 06/11/2019 Substance Abuse - Denies Substance Abuse, 06/11/2019 Tobacco - Denies Tobacco Use, 06/11/2019 Never (less than 100 in lifetime) Tobacco Use:. Never Smokeless Tobacco Use:., 07/12/2022 Family History Cardiac arrest: Brother. Primary malignant neoplasm of lung: Mother. [facility] Comment on above: Result Comment: Elec tronically Signed By: Carlos MCMAHON, Skip Katz\.br\Date and Time Signed: 07/13/22 14:51 EST\.br\Electronically Co-Signed By: Nicol Izaguirre\.br\Date and Time Co-Signed: 07/12/22 17:03 EST Outside Cardiovascularon Outside Cardiovascular [id number]#1.00CD:127 [facility] Outside EDon 07-13-2022 Outside ED [id number]#1.00C D:127 [facility] Outside HPon 07-13-2022 Outside HP [id number]#1.00C D:127 Normal [facility] Outside Labson 07-13-2022 Outside Labs [id number]#1.0 0CD:127 Normal [facility] Outside Radiologyon 07-13-19 Outside Radiology [id number]#1.00CD:127 Normal [facility] Physician Consultation Noteo n 07-13-2022 Physician Consultation Note [id number]#1.00CD:127 [facility] Pre-Certification Formon Pre-Certification Form [id number]#1.00CD:127 [facility] Consent for Treatmenton 06-19 Consent for Treatment [id number]:127 [facility] Referrals Officeon 3 Referrals Office [id number]#1.00CD:127 [facility] CARDIAC ELIA 3-6on 3 CK [Catalytic activity/Vol] 110 U/L Normal 26-192 [facility] Comment on above: Performed By: #### B MP, MG #### [facility] [address] [address] [address] Betsy Velazquez CK.MB [Mass/Vol] 1.74 ng/mL Normal <=3.60 [facility] [place] Comment on above: Performed By: #### B MP, MG #### [facility] [address] [address] [address] Betsy Velazquez HSTROP 6.3 pg/mL Normal 4.0-51.3 [facility] Comment on above: Result Comment: CUT- OFF POINTS HAVE BEEN ESTABLISHED BASED ON THE FOURTH UNIVERSAL DEFINITIONS OF MYOCARDIAL INFARCTION. THE UPPER REFERENCE LIMIT (URL) OF TROPONIN, DEFINED THE 99TH PERCENTILE OF cTnI DISTRIBUTION IN A REFERENCE POPULATION, HAS BEEN CONFIRMED THE DECISION THRESHOLD FOR NE DIAGNOSIS. Performed By: #### B MP, MG #### [facility] [address] [address] [address] Betsy Velazquez CK [Catalytic activity/Vol] 123 U/L Normal 26-192 [facility] Comment on above: Performed By: #### C MREP #### [facility] [id number] Betsy Velazquez CK.MB [Mass/Vol] 1.90 ng/mL Normal <=3.60 [facility] [place] Comment on above: Performed By: #### C MREP #### [facility] [address] [address] [address] Betsy Velazquez HSTROP 5.9 pg/mL Normal 4.0-51.3 The [facility] Comment on above: Result Comment: CUT- OFF POINTS HAVE BEEN ESTABLISHED BASED ON THE FOURTH UNIVERSAL DEFINITIONS OF MYOCARDIAL INFARCTION. THE UPPER REFERENCE LIMIT (URL) OF TROPONIN, DEFINED THE 99TH PERCENTILE OF cTnI DISTRIBUTION IN A REFERENCE POPULATION, HAS BEEN CONFIRMED THE DECISION THRESHOLD FOR NE DIAGNOSIS. Performed By: #### C MREP #### [facility] [address] [address] [address] Betsy Velazquez CBC AUTO DIFFon 06-29-2022 BASO # 0.1 103/ul Normal 0.0-0.1 [facility] Comment on above: Performed By: #### C BC #### [facility] [address] [place] [address] Dr. Betsy Velazquez Basophils/100 WBC (Bld) 0.7 % Normal 0.2-2.0 [facility] Comment on above: Performed By: #### C BC #### [facility] [address] [address] [address] Betsy Velazquez EO # 0.1 103/ul Normal 0.0-0.7 [facility] Comment on above: Performed By: #### C BC #### [facility] [address] [address] [address] Betsy Velazquez Eosinophils/100 WBC (Bld) 1.4 % Normal 0.9-7.0 [facility] Comment on above: Performed By: #### C BC #### [facility] [address] [place] [address] Dr. Betsy Velazquez Erythrocyte distribution wid th (RBC) [Ratio] 12.8 % Normal 11.0-15.0 [facility] [place] [facility] Comment on above: Performed By: #### C BC #### [facility] [address] [place] [address] Dr. Betsy Velazquez Hematocrit (Bld) [Volume fraction] 41.4 % Normal 3 6.0-48.0 [facility] Comment on above: Performed By: #### C BC #### [facility] [address] [place] [address] Dr. Betsy Velazquez Hemoglobin (Bld) [Mass/Vol] 13.4 g/dL Normal 12.0-16. 0 [facility] Comment on above: Performed By: #### C BC #### [facility] [address] [place] [address] Dr. Betsy Velazquez IG # 0.04 10e3/ul Critically high 0.00-0.03 [facility] Comment on above: Performed By: #### C BC #### [facility] [address] [place] [address] Dr. Betsy Velazquez IG % 0.4 % Normal 0.0-0.5 [facility] Comment on above: Performed By: #### C BC #### [facility] [address] [place] [address] Dr. Betsy Velazquez LYMPH # 2.6 103/ul Normal 1.2-3.8 [facility] Comment on above: Performed By: #### C BC #### [facility] [address] [place] [address] Dr. Betsy Velazquez Lymphocytes/100 WBC (Bld) 26.5 % Normal 20.5-60.0 [facility] Comment on above: Performed By: #### C BC #### [facility] [address] [place] [address] Dr. Betsy Velazquez MANUAL DIFF REQ NO Normal [facility] Comment on above: Performed By: #### C BC #### [facility] [address] [place] [address] Dr. Betsy Velazquez MCH (RBC) [Entitic mass] 31.5 pg Normal 26.7-34.0 [facility] Comment on above: Performed By: #### C BC #### [facility] [address] [place] [address] Dr. Betsy Velazquez MCHC (RBC) [Mass/Vol] 32.4 g/dL Normal 29.9-35.2 [facility] Comment on above: Performed By: #### C BC #### [facility] [address] [place] [address] Dr. Betsy Velazquez MCV (RBC) [Entitic vol] 97.2 fL Normal 81.0-99.0 [facility] Comment on above: Performed By: #### C BC #### [facility] [address] [place] [address] Dr. Betsy Velazquez MONO # 0.8 103/ul Normal 0.3-0.8 [facility] [place] [facility] Comment on above: Performed By: #### C BC #### [facility] [address] [place] [address] Dr. Betsy Velazquez Monocytes/100 WBC (Bld) 7.6 % Normal 1.7-12.0 [facility] Comment on above: Performed By: #### C BC #### [facility] [address] [place] [address] Dr. Betsy Velazquez NEUT # 6.3 103/ul Normal 1.4-6.5 [facility] [place] [facility] Comment on above: Performed By: #### C BC #### [facility] [address] [place] [address] Dr. Betsy Velazquez Neutrophils/100 WBC (Bld) 63.4 % Normal 43.0-75.0 [facility] Comment on above: Performed By: #### C BC #### [facility] [address] [place] [address] Dr. Betsy Velazquez Platelet mean volume (Bld) [ Entitic vol] 11.3 fL Normal 9.5-13.5 [facility] Comment on above: Performed By: #### C BC #### [facility] [address] [place], [place] [address] Dr. Betsy Velazquez PLT 258 103/ul Normal 150-450 [facility] Comment on above: Performed By: #### C BC #### [facility] [id number] Betsy Velazquez RBC 4.26 106/ul Normal 4.20-5.[address] [facility] Comment on above: Performed By: #### C BC #### [facility] [address] [place], [place] [address] Dr. Betsy Velazquez WBC 10.0 103/ul Normal 4.0-11.[address] [facility] Comment on above: Performed By: #### C BC #### [facility] [address] [place], [place] [address] Dr. Betsy Velazquez Coding Summary.on 06-29-2022 Coding Summary. CD:[id number] [file] cHNl (more content not included)... Normal [facility] Covid-19 PCR (CVDTBH)on 06-18 SARS-CoV-2 (COVID-19) RNA REYNALDO+probe Ql (Unsp spec) Not detected Normal NOT DETECTED [facility] Comment on above: Result Comment: When diagnostic testing is negative, the possibility of a false negative should be considered in the context of a patient's recent exposures and the presence of clinical signs and symptoms consistent with SARS-CoV-2. This test is not yet approved or cleared by the [place] FDA. When there are no FDA-approved or cleared tests available, and other criteria are met, FDA can make tests available under an emergency access mechanism called an Emergency Use Authorization (EUA). The EUA for this test is supported by the Print Shop Stenographer of Health and Human Service's declaration that circumstances exist to justify the emergency use of in vitro diagnostics for the detection and/or diagnosis of the virus that causes COVID-19. This EUA will remain in effect for the duration of the COVID-19 declaration justifying emergency of IVDs, unless it is terminated or revoked by the FDA (after which the test may no longer be used). Performed By: #### C [facility] #### [facility] [address] [address] [address] Betsy Velazquez ECHO LIMITED STUDYon 023 ECHO LIMITED STUDY Patient: SARAH HANNA Exam Date: 06/29/2022 : 1970 Gender:F Ordering : BONY SOLARES Admission #: [id number] Family : KAYLA DENT Order #: [id number] CLICK HERE TO VIEW EXAM ECHOCARDIOGRAM REPORT PROCEDURE: CARDIO PULMONARY ECHO LIMITED STUDY INDICATIONS: Chest pain, palpitations COMPARISON: None. DESCRIPTION: Limited ECHOCARDIOGRAM Real-time transthoracic echocardiography with 2D and M-mode performed. QUALITY: Technical quality was good. Limited echocadiogram per physician order. 60 185# BP 118/54 LEFT VENTRICLE: Normal chamber size. Normal left ventricular wall thickness. LV EF: Global left ventricular systolic function is normal; visually estimated ejection fraction is 60 to 65%. No significant wall motion abnormalities. LEFT ATRIUM: Normal chamber size. RIGHT ATRIUM: Normal chamber size. RIGHT VENTRICLE: Normal chamber size. TRICUSPID VALVE: Normal mobility and thickness. Normal right ventricular systolic pressure. MITRAL VALVE: Normal mobility and thickness. Mild mitral annular calcification. AORTIC VALVE: Normal trileaflet appearance. No visible sclerosis. Normal leaflet mobility. AORTIC ROOT: Normal diameter and appearance. PULMONIC VALVE: Not well visualized. PERICARDIUM: No evidence of pericardial effusion. IVC: Not well visualized. CONCLUSION: Global left ventricular systolic function is normal; visually estimated ejection fraction is 60 to 65%. No significant wall motion abnormalities. The right ventricle is normal in size and systolic function. A limited echocardiogram was performed. Adult Echocardiography Procedure Report Left Ventricle LVEDD (3.7 - 5.6 cm): 4.30 cm LVESD (2.2 - 4.0 cm): 2.62 cm LVIVS thickness (0.6 - 1.2 cm): 0.89 cm LVPW thickness (0.5 - 1.0 cm): 0.67 cm LVOT Diameter 2.10 cm Left Ventricular Ejection Fraction: 69.80 %, 69.80 % Left Atrium LA Volume Index (2D A2C): 46.88 ml, 46.88 ml Left Atrium Systolic Dimension: 3.44 cm Mitral Valve Right Ventricle Aorta AO Root Diam: 2.32 cm Aortic Valve Tricuspid Valve Pulmonic Valve Right Atrium Right Atrium Systolic Pressure: 42.52 ml, 42.52 ml Dictated by: Anastasiya Martinez M.D. on 06/30/2022 at 13:50 Approved by: Anastasiya Martinez M.D. on 06/30/2022 at 13:52 Normal [facility] l GLYCOHEMOGLOBIN A1Con 2022 ADA RECOMMENDATION SEE BELOW Normal [facility] Comment on above: Result Comment: ADA RECOMMENDED LIMIT 4.0 - 6.0 ADA THERAPEUTIC TARGET < 7.0 ACTION SUGGESTED > 7.0 Performed By: #### B MP, MG #### [facility] [address] [place] [address] Dr. Betsy Velazquez Glucose [Mass/Vol] 120 mg/dL Normal [facility] Comment on above: Performed By: #### B MP, MG #### [facility] [address] [place] [address] Dr. Betsy Velazquez HbA1c (Bld) [Mass fraction] 5.8 % Normal 4.5-6.2 [facility] Comment on above: Performed By: #### B MP, MG #### [facility] [address] [place] [address] Dr. Betsy Velazquez LIPID PROFILEon 06-29-2022 CHOL-HDL RATIO NORM SEE BELOW Normal [facility] Comment on above: Result Comment: 3.3 - 4.4 LOW RISK 4.4 - 7.1 AVERAGE RISK 7.1 - 11.0 MODERATE RISK >11.0 HIGH RISK Performed By: #### L IPID, TSH #### [facility] [address] [place] [address] Dr. Betsy Velazquez Cholesterol [Mass/Vol] 168 mg/dL Normal <=200 Th [facility] Comment on above: Performed By: #### L IPID, TSH #### [facility] [address] [address] [address] Betsy Velazquez Cholesterol in HDL [Mass/Vol] 55 mg/dL Normal 40-60 [facility] Comment on above: Performed By: #### L IPID, TSH #### [facility] [address] [address] [address] Betsy Velazquez Cholesterol in LDL [Mass/Vol] 97.0 mg/dL Normal [facility] Comment on above: Performed By: #### L IPID, TSH #### [facility] [address] [address] [address] Betsy Velazquez Cholesterol.total/Cholestero l in HDL [Mass ratio] 3.1 {ratio} Normal [facility] [place] [facility] Comment on above: Performed By: #### L IPID, TSH #### [facility] [address] [address] [address] Betsy Velazquez HDL NORMAL > or = 60 mg/dl - LO W CARDIOVASCULAR RISK <40 mg/dl - HIGH CARDIOVASCULAR RISK Normal [facility] Comment on above: Performed By: #### L IPID, TSH #### [facility] [address] [address] [address] Betsy Velazquez LDL CALC NORMAL SEE BELOW Normal [facility] Comment on above: Result Comment: <100 mg/dl OPTIMAL 100 - 129 mg/dl NEAR OR ABOVE OPTIMAL 130 - 159 mg/dl BORDERLINE HIGH 160 - 189 mg/dl HIGH >190 mg/dl VERY HIGH Performed By: #### L IPID, TSH #### [facility] [address] [address] [address] Betsy Velazquez Triglyceride [Mass/Vol] 80 mg/dL Normal <=150 [facility] Comment on above: Performed By: #### L IPID, TSH #### [facility] [address] [address] [address] Betsy Velazquez VLDL CALC 16.0 mg/dL Normal [facility] Comment on above: Performed By: #### L IPID, TSH #### [facility] [address] [address] [address] Betsy Velazquez MAGNESIUMon 06-29-2022 Magnesium [Mass/Vol] 2.1 mg/dL Normal 1.8-2.4 [facility] Comment on above: Performed By: #### B MP, MG #### [facility] [address] [place] [address] Dr. Betsy Velazquez PROF CHEM 8 (BAS METB)on Anion gap [Moles/Vol] 10.8 mmol/L Normal [facility] Comment on above: Performed By: #### B MP, MG #### [facility] [address] [place] [address] Dr. Betsy Velazquez Calcium [Mass/Vol] 9.0 mg/dL Normal 8.5-10.[address] [facility] Comment on above: Performed By: #### B MP, MG #### [facility] [address] [place] [address] Dr. Betsy Velazquez Chloride [Moles/Vol] 104 mmol/L Normal 98-107 [facility] Comment on above: Performed By: #### B MP, MG #### [facility] [address] [place] [address] Dr. Betsy Velazquez CO2 [Moles/Vol] 28.1 mmol/L Normal 21.0-32.0 [facility] [place] Comment on above: Performed By: #### B MP, MG #### [facility] [address] [place] [address] Dr. Betsy Velazquez Creatinine [Mass/Vol] 0.86 mg/dL Normal 0.55-1.02 [facility] Comment on above: Performed By: #### B MP, MG #### [facility] [address] [place] [address] Dr. Betsy Velazquez EGFR-AF ESTONIAN >60 Normal >=60 [facility] [place] Comment on above: Performed By: #### B MP, MG #### [facility] [address] [place] [address] Dr. Betsy Velazquez EGFR-NON AF ESTONIAN >60 Normal >=60 [facility] Comment on above: Performed By: #### B MP, MG #### [facility] [address] [address] [address] Betsy Velazquez Glucose [Mass/Vol] 111 mg/dL Critically high 74-106 T [facility] Comment on above: Performed By: #### B MP, MG #### [facility] [address] [address] [address] Betsy Velazquez Potassium [Moles/Vol] 3.9 mmol/L Normal 3.5-5.1 [facility] Comment on above: Performed By: #### B MP, MG #### [facility] [address] [place] [address] Dr. Betsy Velazquez Sodium [Moles/Vol] 139 mmol/L Normal 136-[address] [facility] Comment on above: Performed By: #### B MP, MG #### [facility] [address] [place] [address] Dr. Betsy Velazquez Urea nitrogen [Mass/Vol] 18.0 mg/dL Normal 7.0-18.0 [facility] Comment on above: Performed By: #### B MP, MG #### [facility] [address] [place] [address] Dr. Betsy Velazquez Urea nitrogen/Creatinine [Mass ratio] 20.9 mg/mg Normal [facility] Comment on above: Performed By: #### B MP, MG #### [facility] [address] [place] [address] Dr. Betsy Velazquez TSHon 06-29-2022 TSH 1.981 uIU/mL Normal 0.358-3.740 [facility] Comment on above: Performed By: #### L IPID, TSH #### [facility] [address] [place] [address] Dr. Betsy Velazquez XR CHEST 1 Von 06-29-2022 XR CHEST 1 V EXAMINATION: XR CHES T 1 V HISTORY: Chest pain COMPARISON: None. TECHNIQUE: Portable chest FINDINGS: The lung parenchyma is free of consolidation or infiltrate. No pneumothorax or pleural effusion. The cardiac, mediastinal and hilar contours are normal. The visualized osseous structures exhibit no gross abnormality. IMPRESSION: No acute cardiopulmonary abnormality. Electronically authenticated by: MARKO GARY Date: 2022-06-28 22:50 Normal [facility] CARDIAC ELIA ADMITon 023 CK [Catalytic activity/Vol] 149 U/L Normal 26-192 [facility] Comment on above: Performed By: #### B MP, MG #### [facility] [address] [address] [address] Betsy Velazquez CK.MB [Mass/Vol] 2.34 ng/mL Normal <=3.60 [facility] [place] Comment on above: Performed By: #### B MP, MG #### [facility] [address] [address] [address] Betsy Velazquez HSTROP 5.5 pg/mL Normal 4.0-51.3 [facility] Comment on above: Result Comment: CUT- OFF POINTS HAVE BEEN ESTABLISHED BASED ON THE FOURTH UNIVERSAL DEFINITIONS OF MYOCARDIAL INFARCTION. THE UPPER REFERENCE LIMIT (URL) OF TROPONIN, DEFINED THE 99TH PERCENTILE OF cTnI DISTRIBUTION IN A REFERENCE POPULATION, HAS BEEN CONFIRMED THE DECISION THRESHOLD FOR NE DIAGNOSIS. Performed By: #### B MP, MG #### [facility] [address] [address] [address] Betsy Velazquez CHRISTOPHER 50 ng/mL Normal 9-82 [facility] Comment on above: Performed By: #### B MP, MG #### [facility] [address] [address] [address] Betsy Velazquez CBC AUTO DIFFon 06-28-2022 BASO # 0.1 103/ul Normal 0.0-0.1 [facility] Comment on above: Performed By: #### C BC #### [facility] [address] [address] [address] Betsy Velazquez Basophils/100 WBC (Bld) 0.6 % Normal 0.2-2.0 [facility] Comment on above: Performed By: #### C BC #### [facility] [address] [address] [address] Betsy Velazquez EO # 0.2 103/ul Normal 0.0-0.7 [facility] Comment on above: Performed By: #### C BC #### [facility] [address] [place] [address] Dr. Betsy Velazquez Eosinophils/100 WBC (Bld) 2.0 % Normal 0.9-7.0 [facility] Comment on above: Performed By: #### C BC #### [facility] [address] [place] [address] Dr. Betsy Velazquez Erythrocyte distribution wid th (RBC) [Ratio] 12.8 % Normal 11.0-15.0 [facility] Comment on above: Performed By: #### C BC #### [facility] [address] [place] [address] Dr. Betsy Velazquez Hematocrit (Bld) [Volume fraction] 41.8 % Normal 3 6.0-48.0 [facility] Comment on above: Performed By: #### C BC #### [facility] [address] [place] [address] Dr. Betsy Velazquez Hemoglobin (Bld) [Mass/Vol] 13.8 g/dL Normal 12.0-16. 0 [facility] Comment on above: Performed By: #### C BC #### [facility] [address] [place] [address] Dr. Betsy Velazquez IG # 0.04 10e3/ul Critically high 0.00-0.03 [facility] Comment on above: Performed By: #### C BC #### [facility] [address] [place] [address] Dr. Betsy Velazquez IG % 0.3 % Normal 0.0-0.5 [facility] Comment on above: Performed By: #### C BC #### [facility] [address] [place] [address] Dr. Betsy Velazquez LYMPH # 3.1 103/ul Normal 1.2-3.8 [facility] Comment on above: Performed By: #### C BC #### [facility] [address] [place] [address] Dr. Betsy Velazquez Lymphocytes/100 WBC (Bld) 26.9 % Normal 20.5-60.0 [facility] Comment on above: Performed By: #### C BC #### [facility] [address] [place] [address] Dr. Betsy Velazquez MANUAL DIFF REQ NO Normal [facility] Comment on above: Performed By: #### C BC #### [facility] [address] [place] [address] Dr. Betsy Velazquez MCH (RBC) [Entitic mass] 31.4 pg Normal 26.7-34.0 [facility] Comment on above: Performed By: #### C BC #### [facility] [address] [place] [address] Dr. Betsy Velazquez MCHC (RBC) [Mass/Vol] 33.0 g/dL Normal 29.9-35.2 [facility] Comment on above: Performed By: #### C BC #### [facility] [address] [place] [address] Dr. Betsy Velazquez MCV (RBC) [Entitic vol] 95.2 fL Normal 81.0-99.0 [facility] Comment on above: Performed By: #### C BC #### [facility] [address] [place] [address] Dr. Betsy Velazquez MONO # 0.9 103/ul Critically high 0.3-0.8 [facility] Comment on above: Performed By: #### C BC #### [facility] [address] [place] [address] Dr. Betsy Velazquez Monocytes/100 WBC (Bld) 7.8 % Normal 1.7-12.0 [facility] Comment on above: Performed By: #### C BC #### [facility] [address] [place] [address] Dr. Betsy Velazquez NEUT # 7.2 103/ul Critically high 1.4-6.5 [facility] Comment on above: Performed By: #### C BC #### [facility] [address] [place] [address] Dr. Betsy Velazquez Neutrophils/100 WBC (Bld) 62.4 % Normal 43.0-75.0 [facility] Comment on above: Performed By: #### C BC #### [facility] [address] [place], [place] [address] Dr. Betsy Velazquez Platelet mean volume (Bld) [ Entitic vol] 11.1 fL Normal 9.5-13.5 [facility] Comment on above: Performed By: #### C BC #### [facility] [address] [address] [address] Betsy Velazquez PLT 272 103/ul Normal 150-450 [facility] Comment on above: Performed By: #### C BC #### [facility] [address] [address] [address] Betsy Velazquez RBC 4.39 106/ul Normal 4.20-5.[address] [facility] Comment on above: Performed By: #### C BC #### [facility] [address] [address] [address] Betsy Velazquez WBC 11.6 103/ul Critically high 4.0-11.0 [facility] [place] Comment on above: Performed By: #### C BC #### [facility] [address] [address] [address] Betsy Velazquez MA Mamm Screen w/CAD if perf and 3D Bilon 06-28-2022 MA Mamm Screen w/CAD if perf and 3D Ismael Exam Date/Time: 06/27/2022 08:58 EST Reason for Exam: Z12.31 Report IMPRESSION: BIRADS 1 NEGATIVE, NORMAL INTERVAL FOLLOW-UP.12 MONTH RECALL. CLINICAL HISTORY: Z12.31. COMPARISON: 12/03/2017. COMMENT: Routine views and tomosynthesis views of both breasts were obtained. There are scattered areas of fibroglandular density. No dominant breast mass nor neoplastic calcifications are identified in either breast. The examination was reviewed with Computer Aided Detection. Breast Density: No Mammography is very important to your health. The current [employer] and National [employer] guidelines recommends annual mammography beginning at age 40. This facility utilizes a reminder system to ensure all patients receive reminder notifications at the appropriate time based on the recommendations of this exam. Board Certified Radiologists. Accredited by the ACR and FDA. FINAL REPORT Dictated: 06/28/2022 10:54 am Esteban Machuca M.D. Signed (Electronic Signature): 06/28/2022 10:54 am Signed by: Esteban Machuca M.D. Transcribed by: BENITA Technologist: ROSS Assessment: BI-RADS Category 1-Negative Recommendation: Normal interval follow-up Normal [facility] PROF CHEM 8 (BAS METB)on Anion gap [Moles/Vol] 12.8 mmol/L Normal [facility] Comment on above: Performed By: #### B MP, MG #### [facility] [address] [place] [address] Dr. Betsy Velazquez Calcium [Mass/Vol] 9.4 mg/dL Normal 8.5-10.[address] [facility] Comment on above: Performed By: #### B MP, MG #### [facility] [address] [place] [address] Dr. Betsy Velazquez Chloride [Moles/Vol] 102 mmol/L Normal 98-107 [facility] Comment on above: Performed By: #### B MP, MG #### [facility] [address] [address] [address] Betsy Velazquez CO2 [Moles/Vol] 25.7 mmol/L Normal 21.0-32.0 [facility] [place] Comment on above: Performed By: #### B MP, MG #### [facility] [address] [place] [address] Dr. Betsy Velazquez Creatinine [Mass/Vol] 1.03 mg/dL Critically high 0.55-1.02 [facility] Comment on above: Performed By: #### B MP, MG #### [facility] [address] [place] [address] Dr. Betsy Velazquez EGFR-AF ESTONIAN >60 Normal >=60 [facility] [place] Comment on above: Performed By: #### B MP, MG #### [facility] [address] [place] [address] Dr. Betsy Velazquez EGFR-NON AF ESTONIAN 56 mL/min/1.73m2 Critically low >=60 [facility] Comment on above: Performed By: #### B MP, MG #### [facility] [address] [address] [address] Betsy Velazquez Glucose [Mass/Vol] 93 mg/dL Normal 74-[address] [facility] Comment on above: Performed By: #### B MP, MG #### [facility] [address] [address] [address] Betsy Velazquez Potassium [Moles/Vol] 3.5 mmol/L Normal 3.5-5.1 [facility] Comment on above: Performed By: #### B MP, MG #### [facility] [address] [address] [address] Betsy Velazquez Sodium [Moles/Vol] 137 mmol/L Normal 136-[address] [facility] Comment on above: Performed By: #### B MP, MG #### [facility] [address] [address] [address] Betsy Velazquez Urea nitrogen [Mass/Vol] 21.0 mg/dL Critically high 7.0-18 .0 [facility] Comment on above: Performed By: #### B MP, MG #### [facility] [address] [address] [address] Betsy Velazquez Urea nitrogen/Creatinine [Mass ratio] 20.4 mg/mg Normal [facility] Comment on above: Performed By: #### B MP, MG #### [facility] [address] [address] [address] Betsy Velazquez Consent for Treatmenton 06-18 Consent for Treatment [id number]:127 Normal [facility] RAD - Mammography Reporton 0 06-27-2022 RAD - Mammography Report [id number]:127 Normal [facility] Physician Orderon 06-26-2022 Physician Order [id number]:127 Normal [facility] DIGITAL DIAG MAMM BILAT WITH TOMOon 12-28-2021 DIGITAL DIAG MAMM BILAT WITH MASON Patient Name: RASHEEDA NICHOLE STUDY: DIGITAL DIAG MAMM BILAT WITH MASON; BREAST ULTRASOUND; 12/28/2021 9:31 am; 12/28/2021 9:59 am ACCESSION NUMBER(S): [id number]; [id number] ORDERING CLINICIAN: BARBARA HARRY INDICATION: breast lump N63.15: Breast lump on right side at 12 o'clock position; MM040. COMPARISON: Mammograms dated 09 June 2020 back to the oldest available, 01 June 2015 FINDINGS: MAMMOGRAPHY: 2D and tomosynthesis images were reviewed at 1 mm slice thickness. Breast Density: There are areas of scattered fibroglandular tissue. No significant interval change to the mammographic appearance of either breast. No suspect mass/es or calcifications. ULTRASOUND: Grayscale and color Doppler ultrasound of the area/s of concern in the right breast was performed (limited unilateral breast US). 12:00 Position, 5 CMFN: Within or just deep to the skin is a very well-circumscribed 7 x 5 x 17 mm echogenic avascular abnormality with trace surrounding simple fluid. IMPRESSION: The palpable abnormality is nearly certainly a yet to completely resolved hematoma in this patient with positive history for trauma in the region of the palpable concern. Six-month follow-up recommended to exclude the unlikely possibility of an underlying obscured/occult pathologic lesion. Six-month follow-up diagnostic right mammogram and ultrasound recommended BI-RADS CATEGORY: Category: 3 - Probably Benign. Recommendation: 6 Month Follow-up. For any future breast imaging appointments, please call [phone]). Electronically signed by: ELIA RON MD Normal [facility] Radiologyon 12-28-2021 MG Breast Diagnostic Normal MP-[facility] Work Phone: ULTRASOUND LIMITED BREASTon 12-28-2021 ULTRASOUND LIMITED BREAST Patient Name: RASHEEDA NICHOLE STUDY: DIGITAL DIAG MAMM BILAT WITH MASON; BREAST ULTRASOUND; 12/28/2021 9:31 am; 12/28/2021 9:59 am ACCESSION NUMBER(S): [id number]; [id number] ORDERING CLINICIAN: BARBARA HARRY INDICATION: breast lump N63.15: Breast lump on right side at 12 o'clock position; MM040. COMPARISON: Mammograms dated 09 June 2020 back to the oldest available, 01 June 2015 FINDINGS: MAMMOGRAPHY: 2D and tomosynthesis images were reviewed at 1 mm slice thickness. Breast Density: There are areas of scattered fibroglandular tissue. No significant interval change to the mammographic appearance of either breast. No suspect mass/es or calcifications. ULTRASOUND: Grayscale and color Doppler ultrasound of the area/s of concern in the right breast was performed (limited unilateral breast US). 12:00 Position, 5 CMFN: Within or just deep to the skin is a very well-circumscribed 7 x 5 x 17 mm echogenic avascular abnormality with trace surrounding simple fluid. IMPRESSION: The palpable abnormality is nearly certainly a yet to completely resolved hematoma in this patient with positive history for trauma in the region of the palpable concern. Six-month follow-up recommended to exclude the unlikely possibility of an underlying obscured/occult pathologic lesion. Six-month follow-up diagnostic right mammogram and ultrasound recommended BI-RADS CATEGORY: Category: 3 - Probably Benign. Recommendation: 6 Month Follow-up. For any future breast imaging appointments, please call [phone] ([phone]). Electronically signed by: ELIA RON MD Normal [facility] Ultrasound Limited [place] 12-28-2021 MG Breast Screening Normal [facility] Work Phone: Office Visit (Cardiology)on 12-21-2021 Follow-up visit Diagnoses/Problems Assessed Obesity (BMI 35.0-39.9 without comorbidity) (278.00) (E66.9) Orders Obesity (BMI 35.0-39.9 without comorbidity) Healthy Weight Tips; Status:Complete - Retrospective Authorization; Done: [id number] Some eating tips that can help you lose weight.; Status:Complete - Retrospective Authorization; Done: [id number] Patient Instructions FOLLOW UP NEEDED ONLY YOUR PRIMARY CARE PHYSICIAN WILL BE MANAGING ANY PRESCRIPTIONS THAT DR ROE MAY HAVE WRITTEN FOR YOU. Please bring all medicines, vitamins, and herbal supplements with you when you come to the office. Prescriptions will not be filled unless you are compliant with your follow up appointments or have a follow up appointment scheduled as per instruction of your physician. Refills should be requested at the time of your visit. Chief Complaint RASHEEDA NICHOLE is being seen for a 6 month follow-up of. History of Present Illness Primary MD: Kalina Patient was most recently seen June 2021. At the last visit, the dose of magnesium oxide was increased, she developed diarrhea and had to stop the medication. Since then she also stopped the metoprolol, did not feel that the metoprolol was helping. Continues to have occasional palpitations which she describes as a flip-flopping sensation. No associated chest discomfort shortness of breath lightheadedness presyncope or syncope. BMI is excessive and we discussed this. Patient is working full-time. Medications were reviewed, they are mostly supplements. Blood pressure is at target. Home sleep study did not suggest sleep apnea. On examination today I could hear ectopic beats. This is a patient with preserved LV systolic function, negative treadmill stress test, home sleep study negative for sleep apnea, with ventricular and supraventricular premature beat, sometimes symptomatic. Likelihood for malignant dysrhythmia remains low. Magnesium oxide gave patient diarrhea, she does not want to try it again. She does not want to try it at a lower dose either. She also stopped the metoprolol because did not feel that it helped. PMH: 1. Palpitations 2. Ventricular premature beats on EKG 3. Increased BMI 4. Excessive snoring and some daytime sleepiness 5. Blood pressure was initially elevated, repeat blood pressure was at target. 6. Cannot exclude biatrial enlargement on EKG 7. Echocardiogram 06/07/2021-LVEF 65% left atrial diameter 2.8 cm left atrial volume index not reported, impaired relaxation pattern of LV diastolic filling, no evidence of left ventricular hypertrophy, no significant valvular heart disease, RV size and systolic function normal, no tricuspid regurgitation hence RV systolic pressure could not be estimated 8. Stress Myoview 06/07/2021-exercised for 5 minutes achieving 7 METS peak heart rate 150 bpm which is 90% age-predicted maximum heart rate resting blood pressure 96/50 functional capacity below average no symptoms during the exam blood pressure response normal study was terminated due to fatigue PACs with aberrant conduction was noted at rest and in recovery stress test with reported to be a low risk study 9. Shellfish allergy 10. Home sleep study-no evidence of sleep apnea Assessment: 1. Palpitations 2. Ventricular premature beats on EKG 3. Increased BMI 4. Excessive snoring and some daytime sleepiness 5. Blood pressure is at target 6. Cannot exclude biatrial enlargement on EKG Recommendations: 1. Patient should continue heart healthy lifestyle 2. Follow-up as needed. 3. Regular medical care per Dr. Gilman I thank you Dr. Gilman for allowing me to participate in this patient's care, please do not hesitate to call if further questions arise, Sincerely, Samara Roe MD [facility] Surgical History Problems History of Carpal tunnel surgery History of section 1990, 1992, 1995 History of Cholecystectomy 2017 History of Tubal ligation bilateral 1995 History of [place] tooth extraction Past Medical History Problems Colon cancer screening (V76.51) (Z12.11) cologuard 07/2019-negatve History of COVID-19 virus infection (079.89) (U07.1) Resolved Date: 24 Sep 2020 History of Mammogram normal 05/2020-cat 1 06/03/2019-CAT 1 History of Pap test, as part of routine gynecological examination (V76.2) (Z01.419) 05/24/19-WNL, HPV NEG Current Meds Medication NameInstruction EPINEPHrine 0.3 MG/0.3ML Injection Solution Auto-injectorINJECT 0.3ML INTRAMUSCULARLY DIRECTED. Fluconazole 150 MG Oral TabletTAKE 1 TABLET 1 TIME ONLY. Iron Complex Oral CapsuleTake 1 capsule twice daily L-Lysine 1000 MG Oral TabletTAKE 1 TABLET DAILY. Multivitamin TABSTAKE 1 TABLET DAILY. Probiotic CAPS(Provitalize) Take 2 caps daily Sertraline HCl - 50 MG Oral TabletTAKE 1 TABLET DAILY. Tolterodine Tartrate ER 4 MG Oral Capsule Extended Release 24 HourTAKE 1 CAPSULE Daily Vitamin B Complex Oral TabletTAKE 1 TABLET DAILY. Vitamin D3 50 MCG (1999 UT) O (more content not included)... Normal Touchworks Tobacco Screening.on 022 Adult depression screening assessment No [facility] [address] DO Work Phone: Tobacco use status CPHS b) No M [facility] [address] DO Work Phone: Office Visiton 11-22-2021 Follow-up visit Diagnoses/Problems Screening breast examination (V76.10) (Z12.39) Breast lump on right side at 12 o'clock position (611.72) (N63.15) Orders Breast lump on right side at 12 o'clock position Mamm Digital Diagnostic Mammography Unilateral Right; Status:Active; Requested for:30Nov2021; Patient is scheduled for 11-30-21 @ 1:30pm at [facility]. Thank you. Laterality : Right Radiologist to Determine Optimal Study : Y What are the patient's signs and symptoms? : breast lump Screening breast examination Mamm - Screening Mammogram; Status:Active; Requested for:22Nov2021; Patient is scheduled at [facility] on 11-30-21. Thank you. Indications for MAMM : Yearly Radiologist to Determine Optimal Study : Y What are the patient's signs and symptoms ? : Annual Screening Mammogram Provider Impressions RIGHT BREAST LUMP: - Discussed ddx - likely hematoma secondary to the recent trauma - Pt overdue for screening mammogram - Will check diagnostic mamm - Will call with updated plan when results are available Chief Complaint Patient here today for right breast pain. she states she hit in on her night stand when getting out of bed. There is a lump in the middle above nipple. onset- 3 weeks. tx- none. Last Mammogram was May of 2020. Per patient she states shes stopped her Metoprolol medication and Magnesium. History of Present IllnessChief complaint includes HPI. Review of Systems Constitutional: no chills, not feeling poorly, not feeling tired, no fever and no night sweats. Eyes: no blurred vision, no purulent discharge from the eyes, no dryness of the eyes, no eyesight problems, no itching of the eyes, no eye pain and eyes not red. ENT: no earache, no hearing loss, no tinnitus, no nasal congestion, no nasal discharge, no nosebleeds, no sinus pressure, no hoarseness, no mouth sores and no sore throat. Neck: no mass(es) and no swelling. Cardiovascular: no chest pain, the heart rate was not fast, the heart rate was not slow, no intermittent leg claudication, no lower extremity edema, no orthopnea, no palpitations and no syncope. Respiratory: no shortness of breath at rest, no shortness of breath during exertion, no cough, no wheezing and no postural nocturnal dyspnea. Gastrointestinal: no abdominal pain, no bloating, no blood in stools, no constipation, no diarrhea, no dysphagia, no melena, no nausea and no vomiting. Genitourinary: no dysuria, no hematuria, no incontinence, no nocturia, no change in urinary frequency, no urinary hesitancy, no feelings of urinary urgency, no genital lesion, no unexplained vaginal bleeding, no dysmenorrhea, no pelvic pain and no vaginal discharge. Musculoskeletal: no arthralgias, no back pain, no myalgias, no joint stiffness, no joint swelling, no limb pain and no limb swelling. Integumentary: no rashes, no new skin lesions, no itching, no skin wound, no breast lump and no breast pain. Neurological: no confusion, no convulsions, no difficulty walking, no dizziness, no headache, no limb weakness, no memory changes, no numbness, no syncope, no tingling and no vertigo. Psychiatric: no anxiety, no depression, no sleep disturbances and no substance use disorders. Endocrine: no polydipsia, no hair thinning or loss, no heat/cold intolerance, no muscle weakness, no recent weight loss and no recent weight gain. Hematologic/Lymphatic: no recurrent infections, no swollen glands, no tendency for easy bleeding and no tendency for easy bruising. Active Problems Acute bronchitis (466.0) (J20.9) Atypical mole (216.9) (D22.9) Carpal tunnel syndrome on both sides (354.0) (G56.03) Colon cancer screening (V76.51) (Z12.11) cologuard 07/2019-negatve Encounter for immunization (V03.89) (Z23) Enlarged lymph node in neck (785.6) (R59.0) Food allergy (V15.05) (Z91.018) Habitual snoring (786.09) (R06.83) Labile mood (799.24) (R45.86) Menopausal symptoms (627.2) (N95.1) Never a smoker Obesity (BMI 35.0-39.9 without comorbidity) (278.00) (E66.9) Palpitations (785.1) (R00.2) Patient new to provider Pelvic mass in female (789.30) (R19.00) Pelvic pain in female (625.9) (R10.2) Personal history of COVID-19 (V12.09) (Z86.16) 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,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,U09.9) Post-op pain (338.18) (G89.18) Premature ventricular contractions (PVCs) (VPCs) (427.69) (I49.3) Rhinitis (472.0) (J31.0) Screening breast examination (V76.10) (Z12.39) Shellfish allergy (V15.04) (Z91.013) Past Medical History Colon cancer screening (V76.51) (Z12.11) cologuard 07/2019-negatve History of COVID-19 virus infection (079.89) (U07.1) Resolved Date: 24 Sep 2020 History of Mammogram normal 05/2020-cat 1 06/03/2019-CAT 1 History of Pap test, as part of routine gynecological examination (V76.2) (Z01.419) 05/24/19-WNL, HPV NEG Surgical History History of Carpal tunnel surgery History of section 1990, 1992, 1995 History of Cholecystectomy 2017 History of Tubal (more content not included)... Normal Touchworks Tobacco Screening.on 022 Fall risk assessment a) No falls within the last year [facility] Work Phone: Tobacco use status CPHS b) No [facility] Work Phone: [facility] Adult depression screening assessment Negative [facility] Work Phone: Fall risk assessment a) No falls within the last year [facility] Work Phone: Tobacco use status CPHS b) No [facility] Work Phone: Tobacco Screening.on 022 Fall risk assessment a) No falls within the last year [facility] [place] [address] DO Work Phone: Tobacco use status CPHS b) No [facility] [address] DO Work Phone: Laboratory - Microbiology an d Antimicrobial susceptibilityon 06-14-2021 SARS-CoV-2 (COVID-19) RNA REYNALDO+probe Ql (Unsp spec) Pass Normal Pass [facility] Work Phone: No Panel Informationon 06-14 NO Normal [facility] Work Phone: YES Normal [facility] Work Phone: Unknown Normal [facility] Work Phone: Not detected Normal Not Detected [facility] Work Phone: Comment on above: This test result jakob uld be correlated with clinical presentations and medical history by a healthcare provider to determine its clinical significance.This assay was performed by a reverse transcriptase real-time polymerase chain reaction (rt PCR) method on the [employer] system. This test has been authorized only for the detection of nucleic acid from SARS-CoV-2, not for any other viruses or pathogens. This test has not been FDA cleared or approved. This test has been authorized by FDA under an Emergency Use Authorization (EUA). This test is only authorized for the duration of time the declaration on that circumstances exist justifying the authorization emergency use of in vitro diagnostic tests for detection and/or diagnosis of COVID-19 infection under section 564 (b) (1) of the Act, 21 U.S.C. 360 bbb-3 (b) (1), unless authorization is terminated or revoked sooner. Nasal Normal [facility] Work Phone: Cardiac Stress Teston 2020 Cardiac Stress Test Please click on the link to view the study images Normal [facility] [address] DO Work Phone: Cardiac Stress Test [facility] [address] DO Work Phone: Echocardiogramon 06-07-2021 Echocardiography Please click on the link to view the study images Normal [facility] [address] DO Work Phone: Hepatic Function Panelon Albumin BCP dye [Mass/Vol] 3.9 g/dL 3.4 - 5.0 [facility] [address] DO Work Phone: ALP [Catalytic activity/Vol] 71 U/L 33 - 11 0 [facility] [facility] DO Work Phone: ALT With P-5'-P [Catalytic activity/Vol] 26 U/L 7 - 45 [facility] [address] DO Work Phone: Comment on above: Patients treated wit Sulfasalazine may generate falsely decreased results for ALT. AST With P-5'-P [Catalytic activity/Vol] 20 U/L 9 - 39 [facility] [address] DO Work Phone: Bilirubin [Mass/Vol] 0.4 mg/dL 0.0 - 1.2 [facility] [address] DO Work Phone: Bilirubin.direct [Mass/Vol] 0.1 mg/dL 0.0 - 0. 3 [facility] [facility] DO Work Phone: Protein [Mass/Vol] 7.2 g/dL 6.4 - 8.2 [facility] [address] DO Work Phone: Laboratory - Chemistry and C hemistry - challengeon 05-17-2021 Anion gap [Moles/Vol] 14 mmol/L 10 - 20 [facility] [address] DO Work Phone: Calcium [Mass/Vol] 9.1 mg/dL 8.6 - 10.3 [facility] [address] DO Work Phone: Chloride [Moles/Vol] 102 mmol/L 98 - 107 [facility] [address] DO Work Phone: CO2 [Moles/Vol] 27 mmol/L 21 - 32 [facility] [facility] DO Work Phone: Creatinine [Mass/Vol] 0.81 mg/dL See Below [facility] [address] DO Work Phone: Comment on above: Reference Range: 0.5 0 - 1.05 Glucose [Mass/Vol] 93 mg/dL 74 - 99 [facility] [address] DO Work Phone: Potassium [Moles/Vol] 4.2 mmol/L 3.5 - 5.3 [facility] [address] DO Work Phone: Sodium [Moles/Vol] 139 mmol/L 136 - 145 [facility] [address] DO Work Phone: Urea nitrogen [Mass/Vol] 13 mg/dL 6 - 23 [facility] [address] DO Work Phone: Laboratory - Hematology and Cell countson 05-17-2021 Erythrocyte distribution wid th (RBC) [Ratio] 13.2 % See Below [facility] [address] DO Work Phone: Comment on above: Reference Range: 11. 5 - 14.5 Hematocrit (Bld) [Volume fraction] 39.5 % See Below [facility] [address] DO Work Phone: Comment on above: Reference Range: 36. 0 - 46.0 Hemoglobin (Bld) [Mass/Vol] 13.2 g/dL See Minh patrick [facility] [address] DO Work Phone: Comment on above: Reference Range: 12. 0 - 16.0 MCHC (RBC) [Mass/Vol] 33.4 g/dL See Below [facility] [address] DO Work Phone: Comment on above: Reference Range: 32. 0 - 36.0 MCV (RBC) [Entitic vol] 97 fL 80 - 100 [facility] [address] DO Work Phone: Platelets (Bld) [#/Vol] 247 10*3/uL 150 - 450 [facility] [address] DO Work Phone: RBC (Bld) [#/Vol] 4.07 {x10E12/L} See Below [facility] ClinicTVDeckHeather [place] [address] DO Work Phone: Comment on above: Reference Range: 4.0 0 - 5.20 WBC (Bld) [#/Vol] 7.8 10*3/uL 4.4 - 11.3 [place] [address] DO Work Phone: Lipid Panelon 05-17-2021 Cholesterol [Mass/Vol] 176 mg/dL 0 - 199 [place] [address] DO Work Phone: Comment on above: . AGE DESIRABLE BORD LULA HIGH HIGH 0-19 Y 0 - 169 170 - 199 >/= 200 20-24 Y 0 - 189 190 - 224 >/= 225 >24 Y 0 - 199 200 - 239 >/= 240 All ranges are based on fasting samples. Specific therapeutic targets will vary based on patient-specific cardiac risk.. Pediatric guidelines reference:Pediatrics 2011, 128(S5). Adult guidelines reference: NCEP ATPIII Guidelines, ARPAN 2001, 258:2486-97. Venipuncture immediately after or during the administration of Metamizole may lead to falsely low results. Testing should be performed immediately prior to Metamizole dosing. Cholesterol in HDL [Mass/Vol] 63.0 mg/dL [place] [address] DO Work Phone: Comment on above: . AGE VERY LOW LOW N ORMAL HIGH 0-19 Y < 35 < 40 40-45 ---- 20- 24 Y ---- < 40 >45 ---- >24 Y ---- < 40 40-60 >60. Cholesterol in LDL [Mass/Vol] 96 mg/dL 0 - 99 [facility] [address] DO Work Phone: Comment on above: . NEAR BORD AGE LUIS RABLE OPTIMAL HIGH HIGH VERY HIGH 0-19 Y 0 - 109 --- 110-129 >/= 130 ---- 20-24 Y 0 - 119 --- 120-159 >/= 160 ---- >24 Y 0 - 99 100-129 130-159 160-189 >/=190. Cholesterol.total/Cholestero l in HDL [Mass ratio] 2.8 {ratio} [place] [address] DO Work Phone: Comment on above: REF VALUESDESIRABLE < 3.4HIGH RISK > 5.0 Triglyceride [Mass/Vol] 87 mg/dL 0 - 149 M [place] [address] DO Work Phone: Comment on above: . AGE DESIRABLE BORD LULA HIGH HIGH VERY HIGH 0 D-90 D 19 - 174 ---- ---- ----91 D- 9 Y 0 - 74 75 - 99 >/= 100 ---- 10-19 Y 0 - 89 90 - 129 >/= 130 ---- 20-24 Y 0 - 114 115 - 149 >/= 150 ---- >24 Y 0 - 149 150 - 199 200- 499 >/= 500. Venipuncture immediately after or during the administration of Metamizole may lead to falsely low results. Testing should be performed immediately prior to Metamizole dosing. Lipid Panel 17 mg/dL 0 - 40 [place] [address] DO Work Phone: Magnesium, Serumon Magnesium [Mass/Vol] 1.90 mg/dL See Below [place] [address] DO Work Phone: Comment on above: Reference Range: 1.6 0 - 2.40 No Panel Informationon 05-17 >60 >60 [place] [address] DO Work Phone: Comment on above: CALCULATIONS OF LINDSEY MATED GFR ARE PERFORMED USING THE MDRD STUDY EQUATION FOR THE IDMS-TRACEABLE CREATININE METHODS. CLIN CHEM 2007;53:766-72 T4 - Free Thyroxine, Serumon 05-17-2021 Free T4 [Mass/Vol] 0.90 ng/dL See Below [place] [address] DO Work Phone: Comment on above: Reference Range: 0.6 1 - 1.12 Thyroxine Free testing is performed using different testing methodology at [facility] than at other [facility]. Direct result comparisons should only be made within the same method.. Biotin can cause falsely elevated free T4 results. Patients taking a Biotin dose of up to 10 mg/day should refrain from taking Biotin for 24 hours before sample collection. Patient taking a Biotin dose of >10 mg/day should consult with their physician or the laboratory before the blood draw. TSH - Thyroid Stimulating Ho rmone, Serumon 05-17-2021 TSH Qn 1.76 m[IU]/L See Below [place] [address] DO Work Phone: Comment on above: Reference Range: 0.4 4 - 3.98 TSH testing is performed using different testing methodology at [facility] than at other [facility]. Direct result comparisons should only be made within the same method. Tobacco Screening.on 021 Fall risk assessment a) No falls within the last year [place] [address] DO Work Phone: Tobacco use status CPHS b) No [place] [address] DO Work Phone: HCG, Serum - Qualitativeon 1 06-22-2020 HCG ( test) Ql Negative Negative [facility] Work Phone: No Panel Informationon 04-22 [email or web address]&Date=10-26-2020&Time=[email or web address]%[email or web address]&TestType=ECG&Site=11&Output Type=PDF&Ext=PDF [facility] Work Phone: Sinus rhythm with premature supraventricular co mplexes [facility] Work Phone: Borderline Abnormal [facility] Work Phone: [phone] [facility] Work Phone: [phone] [facility] Work Phone: [phone] [facility] Work Phone: [phone] [facility] Work Phone: [phone] [facility] Work Phone: [phone] 1 [facility] Work Phone: [phone] 1 [facility] Work Phone: 68 1 [facility] Work Phone: 51 1 [facility] Work Phone: [phone] [facility] Work Phone: [phone] [facility] Work Phone: [phone] 1 [facility] Work Phone: [phone] 1 [facility] Work Phone: 80 1 [facility] Work Phone: Coronavirus 2019 RNA by PCR, Screening Asymptomticon 04-20-2021 Coronavirus 2019 RNA by PCR, Screening Asymptomtic Not detected Normal See Below [facility] Work Phone: Comment on above: SOURCE: Nasal, Nasop haryngealReference Range: Not Detected.This assay is designed to detect the N, ORF1ab and/or S genes of SARS-CoV-2 via nucleic acid amplification. A Negative (NOT DETECTED) result does not preclude 2019-nCoV infection since the adequacy of sample collection and/or low viral burden may result in presence of viral nucleic acids below the clinical sensitivity of this test method. Negative (NOT DETECTED) result should not be used as the sole basis for treatment or other patient management decisions. Rather negative results should be combined with clinical observations, patient history, and epidemiological information to make patient management decisions.Fact sheet for providers: https://www.fda.gov/media/070647/downloadFact sheet for patients: https://www.fda.gov/media/016744/downloadThis test has received FDA Emergency Use Authorization (EUA) and has been verified by [facility] ([facility]). This test is only authorized for the duration of time that circumstances exist to justify the authorization of the emergency use of in vitro diagnostic tests for the detection of SARS-CoV-2 virus and/or diagnosis of COVID-19 infection under section 564(b)(1) of the Act, 21 U.S.C. 360bbb-3(b)(1), unless the authorization is terminated or revoked sooner. [facility] is certified under CLIA-88 as qualified to perform high complexity testing. Testing is performed in the [facility] laboratories located at [address] [place] [address]. LMPon 10-29-2020 Last menstrual period start date 31Aug2020 [facility] Work Phone: No Panel Informationon 10-29 Name RASHEEDA NICHOLE Pathologist: MAGDA LIMON MD Date of Procedure: 10/29/2020 Date Received: 10/29/2020 Date Reported 11/03/2020 Submitting Physician: SALIMA GILMAN M.D. Location: [facility] External # FINAL DIAGNOSIS A. SKIN, RIGHT CHEST, BIOPSY: --SEBORRHEIC KERATOSIS B. SKIN, RIGHT MID CHEST, BIOPSY: --INTRADERMAL NEVUS C. SKIN, LEFT MID CHEST, BIOPSY: --SEBORRHEIC KERATOSIS D. SKIN, LEFT SHOULDER, BIOPSY: --SEBORRHEIC KERATOSIS, INFLAMED E. SKIN, RIGHT FLANK, BIOPSY: --ATYPICAL COMPOUND NEVUS WITH MILD MELANOCYTIC DYSPLASIA, APPROACHING PERIPHERAL MARGIN F. SKIN, RIGHT LOWER BACK, BIOPSY: --ATYPICAL JUNCTIONAL NEVUS WITH MILD MELANOCYTIC DYSPLASIA, APPROACHING PERIPHERAL MARGIN G. SKIN, LOW MID BACK, BIOPSY: --INTRADERMAL NEVUS H. SKIN, LEFT LOW BACK, BIOPSY: --ATYPICAL COMPOUND NEVUS WITH MILD MELANOCYTIC DYSPLASIA, TRANSECTED AT PERIPHERAL MARGIN Electronically Signed Out By MAGDA LIMON MD/HERBIE By the signature on this report, the individual or group listed as making the Final Interpretation/Diagnosis certifies that they have reviewed this case. Clinical History: Fixative (A): FORMALIN Fixative (B): FORMALIN Fixative (C): FORMALIN Fixative (D): FORMALIN Fixative (E): FORMALIN Fixative (F): FORMALIN Fixative (G): FORMALIN Fixative (H): FORMALIN Clinical Diagnosis History: Atypical mole - (D22.9) Specimens Submitted As: A: RIGHT CHEST B: RIGHT MID CHEST C: LEFT MID CHEST D: LEFT SHOULDER E: RIGHT FLANK F: RIGHT LOWER BACK G: LOW MID BACK H: LEFT LOW BACK Gross Description: A: Received in formalin, labeled with the patient's name and hospital number and right chest , is a shave biopsy of skin measuring 0.5 x 0.3 x 0.2 cm. On the skin surface is a 0.3 cm, white, slightly elevated area. The resection margin is inked. The specimen is bisected and entirely submitted in one cassette. RCC B: Received in formalin, labeled with the patient's name and hospital number and right mid chest , is a shave biopsy of skin measuring 0.6 x 0.4 x 0.5 cm. On the skin surface is a 0.6 cm, hunt, elevated area. The resection margin is inked. The specimen is bisected and entirely submitted in one cassette. RCC C: Received in formalin, labeled with the patient's name and hospital number and left mid chest , is a shave biopsy of skin measuring 0.3 x 0.2 x 0.1 cm. On the skin surface is a 0.3 cm, drew, elevated area. The resection margin is inked. The specimen is bisected and entirely submitted in one cassette. RCC D: Received in formalin, labeled with the patient's name and hospital number and left shoulder , is a shave biopsy of skin measuring 0.7 x 0.4 x 0.3 cm. On the skin surface is a 0.3 cm, white, slightly elevated area. The resection margin is inked. The specimen is bisected and entirely submitted in one cassette. RCC E: Received in formalin, labeled with the patient's name and hospital number and right flank , is a shave biopsy of skin measuring 0.6 x 0.4 x0.2 cm. On the skin surface is a 0.5 cm, brown, flat area. The resection margin is inked. The specimen is bisected and entirely submitted in one cassette. RCC F: Received in formalin, labeled with the patient's name and hospital number and right lower back , is a shave biopsy of skin measuring 0.9 x 0.3 x 0.2 cm. On the skin surface is a 0.3 cm, brown, flat area. The resection margin is inked. The specimen is bisected and entirely submitted in one cassette. RCC G: Received in formalin, labeled with the patient's name and hospital number and lower mid back , is a shave biopsy of skin measuring 1.0 x 0.6 x 0.3 cm. On the skin surface is a 1.1 cm, white, elevated area. The resection margin is inked. The specimen is bisected and entirely submitted in one cassette. RCC H: Received in formalin, labeled with the patient's name and hospital number and left lower back , is a shave biopsy of skin measuring 0.4 x 0.2 x 0.1 cm. On the skin surface is a 0.2 cm, brown, slightly elevated area. The resection margin is inked. The specimen is bisected and entirely submitted in one cassette. [facility]/11/02/2020 [facility] Department of Pathology [address] [place] [address] Work Phone: [facility] Work Phone: Mamm - Screening Mammogram w / Tomosynthesison 06-09-2020 MG Breast screening Interpreted by: THERON KNOTTD108/10/19 09:10MRN: [id number] Name: DIONISIOJOHANNA NUNESA STUDY:DIGITAL SCREENING BILATERAL MAMMOGRAM WITH BREAST TOMOSYNTHESIS ANDWITH CAD; 06/09/2020 8:43 am INDICATION:Routine screening. COMPARISON:06/03/2019 ORDERING CLINICIAN:SALIMA GILMAN FINDINGS:2D and tomosynthesis images were reviewed at 1 mm slice thickness.Images were obtained in MLO and CC projections. There are areas of scattered fibroglandular tissue.No suspicious masses or calcifications are identified. There arestable areas of asymmetry bilaterally. This study was interpreted with CAD. IMPRESSION:No mammographic evidence of malignancy. BI-RADS CATEGORY: Category: 1 - Negative.Recommendation: 1 Year Screening.Electronically signed by: THERON VEE 06/09/20 09:10 Normal [facility] Work Phone: Comment on above: ORDER REVISED TO A D IGITAL MAMM SCREENING W/ MASON BY RADIOLOGIST; Original Order Number: [id number] GC + Chlamydia By Amplified Detectionon 01-05-2020 C. trachomatis rRNA REYNALDO+prob e Ql (Unsp spec) Negative Negative NM-Wrbntrnjmh-Vw [place] A2100 DO Work Phone: N. gonorrhoeae rRNA REYNALDO+prob e Ql (Unsp spec) Negative Negative JZ-Anvflvypmt-Fx stlake A2100 DO Work Phone: Comment on above: SOURCE: Genital Otheron 01-05-2020 0 [facility] [place] A2100 DO Work Phone: Comment on above: Interpretation of th e Bronwyn Score0-3.....Normal vaginal microbiota4-6.....Intermediate results7-10....Bacterial vaginosis ABSENT [facility] [place] A2100 DO Work Phone: Negative Negative [facility] [place] A2100 DO Work Phone: Comment on above: SOURCE: Genital Urinalysison 01-05-2020 Yeast LM Ql (Urine sed) ABSENT M P-Gbxouvffww-Utscihyc A2100 DO Work Phone: Otheron 07-25-2019 Clam IgE Qn (S) <0.35 <0.35 [facility] Work Phone: Comment on above: SEE IMMUNOCAP INTERP .IGE Codfish IgE Qn (S) <0.35 <0.35 [facility] Work Phone: Comment on above: SEE IMMUNOCAP INTERP .IGE [place] IgE Qn (S) <0.35 <0.35 [facility] Work Phone: Comment on above: SEE IMMUNOCAP INTERP .IGE Egg white IgE Qn (S) <0.35 <0.35 [facility] Work Phone: Comment on above: SEE IMMUNOCAP INTERP .IGE Lobster IgE Qn (S) 0.56 {KU/L} Abnormal <0.35 [facility] Work Phone: Comment on above: SEE IMMUNOCAP INTERP .IGE Milk IgE Qn (S) <0.35 <0.35 [facility] Work Phone: Comment on above: SEE IMMUNOCAP INTERP .IGE Peanut IgE Qn (S) <0.35 <0.35 [facility] Work Phone: Comment on above: SEE IMMUNOCAP INTERP .IGE [place] IgE Qn (S) <0.35 <0.35 [facility] Work Phone: Comment on above: SEE IMMUNOCAP INTERP .IGE Scallop IgE Qn (S) <0.35 <0.35 [facility] Work Phone: Comment on above: SEE IMMUNOCAP INTERP .IGE Sesame Seed IgE Qn (S) <0.35 <0.35 [facility] Work Phone: Comment on above: SEE IMMUNOCAP INTERP .IGE Shrimp IgE Qn (S) 0.40 {KU/L} Abnormal <0.35 [facility] Work Phone: Comment on above: SEE IMMUNOCAP INTERP .IGE Soybean IgE Qn (S) <0.35 <0.35 [facility] Work Phone: Comment on above: SEE IMMUNOCAP INTERP .IGE [place] IgE Qn (S) <0.35 <0.35 [facility] Work Phone: Comment on above: SEE IMMUNOCAP INTERP .IGE Wheat IgE Qn (S) <0.35 <0.35 [facility] Work Phone: Comment on above: SEE IMMUNOCAP INTERP .IGE SEE COMMENT [facility] Work Phone: Comment on above: REFERENCE RANGE (IMM UNOCAP) IGE KU/L CLASS INTERPRETATION < 0.35 0 BELOW DETECTION 0.35- 0.69 1 LOW POSITIVE 0.70- 3.49 2 MODERATE POSITIVE 3.50- 17.49 3 HIGH BIPGYDEY51.50- 49 4 VERY HIGH [id number] - 99 5 VERY HIGH POSITIVE >100 6 VERY HIGH POSITIVE Culture, Throaton 10-30-2018 Culture, Throat OR DERED BY: SARKIS ROGERS SOURCE: Throat Throat COLLECTED: 10/30/18 15:03 ANTIBIOTICS AT KIP.: RECEIVED : 10/30/18 19:13 Culture, Throat FINAL 11/01/18 08:10 Usual respiratory jessica in 48 hours Normal [facility] Comment on above: Performed By: #### C XTHR #### [facility] [address] [place] [address] Vital Signs Date Time Vital Sign Value Performing Clinician Yamile rojas 09-24-2022 04:19-0400 Diastolic blood pressure 58 mm[Hg] Vincent Pan [facility] 09-24-2022 04:19-0400 Heart rate 60 /min Vincent Pan [facility] 09-24-2022 04:19-0400 Respiratory rate 18 /min Vincent Pan [facility] 09-24-2022 04:19-0400 SaO2% (BldA) [Mass fraction] 96 % Vincent Pan [facility] 09-24-2022 04:19-0400 Systolic blood pressure 114 mm[Hg] Vincent Pan [facility] 09-24-2022 02:53-0400 Diastolic blood pressure 56 mm[Hg] Vincent Maxim [facility] 09-24-2022 02:53-0400 Heart rate 68 /min Vincent Maxim [facility] 09-24-2022 02:53-0400 Mean blood pressure 70 mm[Hg] Vincent Maxim [facility] 09-24-2022 02:53-0400 Respiratory rate 15 /min Vincent Maxim [facility] 09-24-2022 02:53-0400 SaO2% (BldA) [Mass fraction] 92 % Vicnent Maxim [facility] 09-24-2022 02:53-0400 Systolic blood pressure 99 mm[Hg] Vincent Maxim [facility] 09-24-2022 02:19-0400 Blood Pressure Location Vincent Maxim [facility] 09-24-2022 02:19-0400 Diastolic blood pressure 52 mm[Hg] Vincent Maxim [facility] 09-24-2022 02:19-0400 Heart rate 75 /min Vincent Maxim [facility] 09-24-2022 02:19-0400 Mean blood pressure 68 mm[Hg] Vincent Maxim [facility] 09-24-2022 02:19-0400 Respiratory rate 18 /min Vincent Maxim [facility] 09-24-2022 02:19-0400 SaO2% (BldA) [Mass fraction] 95 % Vincent Maxim [facility] 09-24-2022 02:19-0400 Systolic blood pressure 101 mm[Hg] Vincent Maxim [facility] 09-24-2022 01:07-0400 Blood Pressure Location Vincent Pan [facility] 09-24-2022 01:07-0400 Mean blood pressure 72 mm[Hg] Vincent Pan [facility] 09-23-2022 22:20-0400 Respiratory rate 16 /min Vincent Pan [facility] 09-20-2022 12:24-0400 Body mass index (BMI) [Ratio] 36.48 kg/m2 Kayla Dent [facility] 305 DO Work Phone: 09-20-2022 12:24-0400 Body surface area Derived from formula 1.81 m2 Kayla Dent [facility] 305 DO Work Phone: 09-20-2022 12:24-0400 Body weight 84.73 kg Kayla Dent [facility] 305 DO Work Phone: 09-20-2022 12:24-0400 Diastolic blood pressure 72 mm[Hg] Kayla Dent [facility] 305 DO Work Phone: 09-20-2022 12:24-0400 Heart rate 61 /min Kayla Dent [facility] 305 DO Work Phone: 09-20-2022 12:24-0400 Systolic blood pressure 132 mm[Hg] Kayla Dent [facility] 305 DO Work Phone: 08-29-2022 10:03-0400 Heart rate 64 /min Kayla Dent [facility] 300 DO Work Phone: 08-25-2022 14:17-0500 Body temperature 97.88 [degF] Kayla Dent Other Phone: [facility] 08-25-2022 14:17-0500 Diastolic blood pressure 63 mm[Hg] Kayla Dent Other Phone: [facility] 08-25-2022 14:17-0500 Heart rate 69 /min Kayla Dent Other Phone: [facility] 08-25-2022 14:17-0500 Respiratory rate 16 /min Kayla Dent Other Phone: [facility] 08-25-2022 14:17-0500 SaO2% (BldA) [Mass fraction] 93 % Kayla Dent Other Phone: [facility] 08-25-2022 14:17-0500 Systolic blood pressure 120 mm[Hg] Kayla Dent Other Phone: [facility] 08-18-2022 10:45-0500 Body height 152.4 cm Kayla Monroeeen Olena [facility] 300 DO Work Phone: 08-18-2022 10:45-0500 Body mass index (BMI) [Ratio] 36.13 kg/m2 Kayla Monroeeen Dent [facility] 300 DO Work Phone: 08-18-2022 10:45-0500 Body surface area Derived from formula 1.81 m2 Kayla Monroeeen Olena [facility] 300 DO Work Phone: 08-18-2022 10:45-0500 Body weight 83.92 kg Kayla Monroeeen Dent [facility] 300 DO Work Phone: 08-18-2022 10:45-0500 Diastolic blood pressure 80 mm[Hg] Kayla Dent [facility] 300 DO Work Phone: 08-18-2022 10:45-0500 Heart rate 50 /min Kayla Dent [facility] 300 DO Work Phone: 08-18-2022 10:45-0500 Systolic blood pressure 134 mm[Hg] Kayla Dent [facility] 300 DO Work Phone: 08-07-2022 09:06-0500 Blood Pressure Location Luna DICKINSON [facility] 08-07-2022 09:06-0500 Diastolic blood pressure 74 mm[Hg] Luna DICKINSON [facility] 08-07-2022 09:06-0500 Heart rate 66 /min Luna DICKINSON [facility] 08-07-2022 09:06-0500 SaO2% (BldA) [Mass fraction] 95 % Luna DICKINSON [facility] 08-07-2022 09:06-0500 Systolic blood pressure 118 mm[Hg] Luna DICKINSON [facility] 07-12-2022 15:48-0500 Blood Pressure Location Skip Maxerson [facility] 07-12-2022 15:48-0500 Diastolic blood pressure 70 mm[Hg] Skip Christofferson [facility] 07-12-2022 15:48-0500 Heart rate 69 /min Skip Christofferson [facility] 07-12-2022 15:48-0500 Respiratory rate 18 /min Skip Christofferson [facility] 07-12-2022 15:48-0500 SaO2% (BldA) [Mass fraction] 98 % Skip Christofferson [facility] 07-12-2022 15:48-0500 Systolic blood pressure 112 mm[Hg] Skip Christofferson [facility] 12-21-2021 10:04-0400 Body height 152.4 cm Salima Gilman Work Phone: [facility] 127 DO Work Phone: 12-21-2021 10:04-0400 Body mass index (BMI) [Ratio] 36.72 kg/m2 Salima Kodak Kalina Work Phone: [facility] 127 DO Work Phone: 12-21-2021 10:04-0400 Body surface area Derived from formula 1.82 m2 Salima Candelario Kalina Work Phone: [facility] 127 DO Work Phone: 12-21-2021 10:04-0400 Body weight 85.28 kg Salima Candelario Kalina Work Phone: [facility] 127 DO Work Phone: 12-21-2021 10:04-0400 Diastolic blood pressure 70 mm[Hg] Salima Candelario Kalina Work Phone: [facility] 127 DO Work Phone: 12-21-2021 10:04-0400 Heart rate 68 /min Salima Kodak Kalina Work Phone: [facility] 127 DO Work Phone: 12-21-2021 10:04-0400 Systolic blood pressure 112 mm[Hg] Salima Recinosabrese Work Phone: [facility] 127 DO Work Phone: 11-22-2021 15:34-0400 Body height 152.4 cm Salima Recinosabrese Work Phone: [facility] Work Phone: 11-22-2021 15:34-0400 Body mass index (BMI) [Ratio] 36.72 kg/m2 Salima Recinosabrese Work Phone: [facility] Work Phone: 11-22-2021 15:34-0400 Body surface area Derived from formula 1.82 m2 Salima Recinosabrese Work Phone: [facility] Work Phone: 11-22-2021 15:34-0400 Body temperature 97 [degF] Salima Recinosabrese Work Phone: [facility] Work Phone: 11-22-2021 15:34-0400 Body weight 85.28 kg Salima Recinosabrese Work Phone: [facility] Work Phone: 11-22-2021 15:34-0400 Diastolic blood pressure 73 mm[Hg] Salima Recinosabrese Work Phone: [facility] Work Phone: 11-22-2021 15:34-0400 Heart rate 66 /min Salima Kodak RecinosKalina Work Phone: [facility] Work Phone: 11-22-2021 15:34-0400 SaO2% (BldA) [Mass fraction] 97 % Salima Recinosabrese Work Phone: [facility] Work Phone: 11-22-2021 15:34-0400 Systolic blood pressure 112 mm[Hg] Salima Recinosabrese Work Phone: [facility] Work Phone: 07-12-2021 08:30-0500 Body height 152.4 cm Salima Spenceese Work Phone: [facility] Work Phone: 07-12-2021 08:30-0500 Body mass index (BMI) [Ratio] 36.33 kg/m2 Salima Recinosabrese Work Phone: [facility] Work Phone: 07-12-2021 08:30-0500 Body surface area Derived from formula 1.81 m2 Salima Recinosabrese Work Phone: [facility] Work Phone: 07-12-2021 08:30-0500 Body temperature 96.4 [degF] Salima Recinosabrese Work Phone: [facility] Work Phone: 07-12-2021 08:30-0500 Body weight 84.37 kg Salima Recinosabrese Work Phone: [facility] Work Phone: 07-12-2021 08:30-0500 Diastolic blood pressure 82 mm[Hg] Salima Recinosabrese Work Phone: [facility] Work Phone: 07-12-2021 08:30-0500 Heart rate 88 /min Salima Spenceese Work Phone: [facility] Work Phone: 07-12-2021 08:30-0500 Respiratory rate 16 /min Salima Spenceese Work Phone: [facility] Work Phone: 07-12-2021 08:30-0500 SaO2% (BldA) [Mass fraction] 98 % Salima Spenceese Work Phone: [facility] Work Phone: 07-12-2021 08:30-0500 Systolic blood pressure 122 mm[Hg] Salima Gilman Work Phone: [facility] Work Phone: 06-23-2021 13:19-0500 Body height 152.4 cm Salima Spenceese Work Phone: [facility] [address] DO Work Phone: 06-23-2021 13:19-0500 Body mass index (BMI) [Ratio] 35.54 kg/m2 Salima Spenceese Work Phone: [facility] [address] DO Work Phone: 06-23-2021 13:19-0500 Body surface area Derived from formula 1.79 m2 Salima Spenceese Work Phone: [facility] 127 DO Work Phone: 06-23-2021 13:19-0500 Body weight 82.56 kg Salima Spenceese Work Phone: [facility] 127 DO Work Phone: 06-23-2021 13:19-0500 Diastolic blood pressure 78 mm[Hg] Salima Spenceese Work Phone: [facility] [address] DO Work Phone: 06-23-2021 13:19-0500 Heart rate 66 /min Salima Spenceese Work Phone: [facility] DO Work Phone: 06-23-2021 13:19-0500 Systolic blood pressure 120 mm[Hg] Salima Kodak Kalina Work Phone: [facility] [address] DO Work Phone: 06-07-2021 09:45-0500 65 1 Salima Kodak Kalina Work Phone: [facility] 127 DO Work Phone: Comment on above: [id number] 05-11-2021 10:30-0500 Diastolic blood pressure 68 mm[Hg] Salima Recinosabrese Work Phone: [facility] [address] DO Work Phone: 05-11-2021 10:30-0500 Systolic blood pressure 126 mm[Hg] Salima Recinosabrese Work Phone: [facility] [address] DO Work Phone: 05-11-2021 09:53-0500 Body height 152.4 cm Salima Recinosabrese Work Phone: [facility] [address] DO Work Phone: 05-11-2021 09:53-0500 Body mass index (BMI) [Ratio] 35.94 kg/m2 Salima Recinosabrese Work Phone: [facility] DO Work Phone: 05-11-2021 09:53-0500 Body surface area Derived from formula 1.8 m2 Salima Candelario Kalina Work Phone: [facility] DO Work Phone: 05-11-2021 09:53-0500 Body weight 83.46 kg Salima Recinosabrese Work Phone: [facility] [address] DO Work Phone: 05-11-2021 09:53-0500 Diastolic blood pressure 82 mm[Hg] Salima Recinosabrese Work Phone: [facility] [address] DO Work Phone: 05-11-2021 09:53-0500 Heart rate 81 /min Salima Spenceese Work Phone: [facility] DO Work Phone: 05-11-2021 09:53-0500 Systolic blood pressure 148 mm[Hg] Salima Candelario Kalina Work Phone: [facility] DO Work Phone: 10-29-2020 18:09-0400 Body height 152.4 cm Luna Homady PA-C [facility] Work Phone: 10-29-2020 18:09-0400 Body mass index (BMI) [Ratio] 34.76 kg/m2 Luna Homady PA-C [facility] Work Phone: 10-29-2020 18:09-0400 Body surface area Derived from formula 1.78 m2 Luna Homady PA-C [facility] Work Phone: 10-29-2020 18:09-0400 Body temperature 97.5 [degF] Luna Homady PA-C [facility] Work Phone: 10-29-2020 18:09-0400 Body weight 80.74 kg Luna Homady PA-C [facility] Work Phone: 10-29-2020 18:09-0400 Diastolic blood pressure 58 mm[Hg] Luna Homady PA-C [facility] Work Phone: 10-29-2020 18:09-0400 Heart rate 80 /min Luna Homady PA-C [facility] Work Phone: 10-29-2020 18:09-0400 Respiratory rate 16 /min Luna Homady PA-C [facility] Work Phone: 10-29-2020 18:09-0400 SaO2% (BldA) [Mass fraction] 98 % Lunadominic Zacarias PA-C [facility] Work Phone: 10-29-2020 18:09-0400 Systolic blood pressure 118 mm[Hg] Luna Rell WALL [facility] Work Phone: 10-29-2020 18:09-0400 3 1 Luna Rell WALL [facility] Work Phone: Comment on above: Para 10-29-2020 16:09-0400 Body height 152.4 cm Salima Spenceese Work Phone: [facility] Work Phone: 10-29-2020 16:09-0400 Body mass index (BMI) [Ratio] 34.76 kg/m2 Salima Spenceese Work Phone: [facility] Work Phone: 10-29-2020 16:09-0400 Body surface area Derived from formula 1.78 m2 Salima Spenceese Work Phone: [facility] Work Phone: 10-29-2020 16:09-0400 Body temperature 97.5 [degF] Salima Recinosabrese Work Phone: [facility] Work Phone: 10-29-2020 16:09-0400 Body weight 80.74 kg Salima Recinosabrese Work Phone: [facility] Work Phone: 10-29-2020 16:09-0400 Diastolic blood pressure 58 mm[Hg] Salima Spenceese Work Phone: [facility] Work Phone: 10-29-2020 16:09-0400 Heart rate 80 /min Salima Gilman Work Phone: [facility] Work Phone: 10-29-2020 16:09-0400 Respiratory rate 16 /min Salima Gilman Work Phone: [facility] Work Phone: 10-29-2020 16:09-0400 SaO2% (BldA) [Mass fraction] 98 % Salima Gilman Work Phone: [facility] Work Phone: 10-29-2020 16:09-0400 Systolic blood pressure 118 mm[Hg] Salima Gilman Work Phone: [facility] Work Phone: 10-29-2020 16:09-0400 3 1 Salima Gilman Work Phone: [facility] Work Phone: Comment on above: GRAV PARA 09-24-2020 11:19-0400 Body height 152.4 cm Simone Coulter [facility] Work Phone: 09-24-2020 11:19-0400 Body mass index (BMI) [Ratio] 30.66 kg/m2 Simone Coulter DO [facility] Work Phone: 09-24-2020 11:19-0400 Body surface area Derived from formula 1.68 m2 Simone Coulter DO [facility] Work Phone: 09-24-2020 11:19-0400 Body temperature 96.8 [degF] Simone Coulter DO [facility] Work Phone: 09-24-2020 11:19-0400 Body weight 71.22 kg Simone Sethraj [facility] [place] Work Phone: 09-24-2020 11:19-0400 Diastolic blood pressure 64 mm[Hg] Simone Sethraj [facility] [place] Work Phone: 09-24-2020 11:19-0400 Heart rate 60 /min Simone Sethraj [facility] [place] Work Phone: 09-24-2020 11:19-0400 Respiratory rate 16 /min Simone [facility] [place] Work Phone: 09-24-2020 11:19-0400 SaO2% (BldA) [Mass fraction] 97 % Simone [facility]raj [facility] Work Phone: 09-24-2020 11:19-0400 Systolic blood pressure 110 mm[Hg] Simone Coulter [facility] [place] Work Phone: 09-24-2020 11:19-0400 3 1 Simone Sethraj [facility] Work Phone: Comment on above: Para 01-12-2020 11:18-0400 BMI (Body Mass Index) 20.89 kg/m2 Priscilla Leahy MPHJ-Oktvtxzmzp-Xzemkr ke A2100 DO Work Phone: 01-12-2020 11:18-0400 Body weight 69.85 kg Priscilla Leahy [facility] [place] A2100 DO Work Phone: 01-12-2020 11:18-0400 BP Diastolic 78 mm[Hg] Priscilla Leahy [facility] [place] A2100 DO Work Phone: 01-12-2020 11:18-0400 BP Systolic 124 mm[Hg] Priscilla Leahy [facility] [place] A2100 DO Work Phone: 01-12-2020 11:18-0400 BSA (Body Surface Area) 1.91 m2 Priscilla Leahy MPOA-Bqfxgzremz-Toombb ke A2100 DO Work Phone: 01-12-2020 11:18-0400 Height 182.88 cm Priscilla Leahy [facility] [place] A2100 DO Work Phone: 01-05-2020 15:57-0400 BMI (Body Mass Index) 28.35 kg/m2 Priscilla Leahy MPYB-Onyneqchig-Wkuuxo ke A2100 DO Work Phone: 01-05-2020 15:57-0400 Body Temperature 98.4 [degF] Priscilla Leahy [facility] A2100 DO Work Phone: 01-05-2020 15:57-0400 Body weight 70.31 kg Priscilla Leahy [facility] [place] A2100 DO Work Phone: 01-05-2020 15:57-0400 BP Diastolic 60 mm[Hg] Priscilla Leahy [facility] [place] A2100 DO Work Phone: 01-05-2020 15:57-0400 BP Systolic 122 mm[Hg] Priscilla Leahy [facility] [place] A2100 DO Work Phone: 01-05-2020 15:57-0400 BSA (Body Surface Area) 1.72 m2 Priscilla Leahy MPHQ-Mufrdusspo-Akwuhw ke A2100 DO Work Phone: 01-05-2020 15:57-0400 Height 157.48 cm Priscilla Leahy [facility] [place] A2100 DO Work Phone: 01-05-2020 15:57-0400 Pulse (Heart Rate) 75 /min Priscilla Leahy MPIH-Wzabupasik-Rpcjqp ke A2100 DO Work Phone: 01-05-2020 15:57-0400 Pulse Oximetry 98 % Priscilla Leahy [facility] [place] A2100 DO Work Phone: 01-05-2020 15:57-0400 Respiratory Rate 16 /min Priscilla Leahy [facility] A2100 DO Work Phone: 10-15-2019 17:37-0400 BMI (Body Mass Index) 27.34 kg/m2 Christian Benito -[facility] Work Phone: 10-15-2019 17:37-0400 Body weight 67.81 kg Christian Benito -[facility] Work Phone: 10-15-2019 17:37-0400 BP Diastolic 70 mm[Hg] Christian Tolbertlock -[facility] Work Phone: 10-15-2019 17:37-0400 BP Systolic 102 mm[Hg] Christian Benito -[facility] Work Phone: 10-15-2019 17:37-0400 BSA (Body Surface Area) 1.69 m2 Christian Benito -[facility] Work Phone: 10-15-2019 17:37-0400 Height 157.48 cm Christian Benito [facility] Work Phone: Encounters Encounter Date Encounter Type Care Provider Facility Start: 04-26-2023 ambulatory CYNDI Ovalle lity:[facility] [place] [place] Start: 04-16-2023 End: 04-16-2023 ambulatory EVIE AGUDELO [facility] Ambulatory Start: 04-16-2023 End: 04-16-2023 Office outpatient visit 25 minutes 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 APRN-SEISMIC COMPUTER Work Phone: [facility] [place] Comment on above: High risk medication use (Primary Dx); Palpitations; Premature ventricular contractions (PVCs) (VPCs); Tachycardia Start: 04-10-2023 End: 04-11-2023 [facility] Start: 04-10-2023 End: 04-10-2023 Subsequent hospital visit by physician Marty James [facility] Comment on above: Palpitations Start: 03-30-2023 End: 03-31-2023 ambulatory CYNDI CHEW Facility:[facility] Start: 03-30-2023 End: 03-30-2023 Patient encounter procedure CYNDI CHEW [facility] Start: 03-05-2023 Patient encounter procedure Kayla Dent [facility] 300 DO Work Phone: Start: 03-05-[address] Kayla Chavez acility:[id number] Start: 03-01-2023 AUDIT Kayla Dent [facility] [facility] [place] [facility] 320 DO Work Phone: Start: 11-08-2022 ambulatory MD FEDERICO WING Fa cility: Start: 10-13-2022 Chart Update Kayla Dent [facility] [facility] [place] [facility] Work Phone: Start: 10-10-[address] Kayla Chavez acility:[id number] Start: 09-24-2022 End: 09-24-2022 Emergency department patient visit Vincnet Pan Facility:[facility] Start: 09-23-2022 End: 09-24-2022 Emergency department patient visit Vincent Pan [facility] Start: 09-22-2022 End: 09-23-[address] Kayla Dent Facility: Start: 09-22-2022 End: 09-22-2022 Patient encounter procedure Federico Wing [facility] Start: 09-21-2022 End: 09-22-[address] Kayla Dent Facility: Start: 09-21-2022 End: 09-21-2022 Patient encounter procedure Federico Diaz [facility] Start: 09-20-2022 ambulatory MD FEDERICO WING Fa cility: Start: 09-20-2022 Office outpatient visit 40 minutes Kayla Dent MP-[facility] 305 DO Work Phone: Start: 09-01-2022 ambulatory Federico Wing Facility:[id number] Start: 08-29-2022 EKG, Provider: [facility] [id number] PRINT TRAFFIC MANAGER 1,[id number], Status: Pen, Time: 10:00 AM Kayla Dent MP-[facility] 300 DO Work Phone: Start: 08-29-2022 Patient encounter procedure Kayla Dent -[facility] 300 DO Work Phone: Start: 08-29-2022 ambulatory MD FEDERICO WING Fa cility:[id number] Start: 08-28-2022 Patient encounter procedure Kayla Dent -[facility] 300 DO Work Phone: Start: 08-28-2022 ambulatory MD FEDERICO WING Fa cility:[id number] Start: 08-25-2022 AUDIT Kayla Dent [facility] [facility] [place] [facility] Work Phone: Start: 08-23-2022 End: 08-25-2022 Evaluation and management of inpatient Skip Platzbecker Facility:[id number] Start: 08-23-2022 AUDIT Kayla Dent [facility] [facility] [place] [facility] Work Phone: Start: 08-22-2022 End: 08-25-2022 Evaluation and management of inpatient Skip Platzbecker [place] 8 Cardio ICU [id number] Start: 08-18-2022 Office consultation new/estab patient 80 min Kayla Dent MP-[facility] 300 DO Work Phone: Start: 08-18-[address] Skip Gonzalez Facility:[id number] Start: 08-07-2022 End: 08-08-2022 ambulatory Lunadominic DICKINSON Facility:[facility] Start: 08-07-2022 End: 08-07-2022 Patient encounter procedure Luna DICKINSON [facility] Start: 07-14-2022 End: 07-14-2022 ambulatory Skip Gonzalez Facility:[facility] Start: 07-12-2022 End: 07-13-2022 ambulatory Skip Gonzalez Facility:[facility] Start: 07-12-2022 End: 07-12-2022 Patient encounter procedure Skip Gonzalez [facility] Start: 06-29-2022 End: 06-29-2022 ambulatory CAMPBELL HERNANDEZ Facility: Start: 06-27-2022 End: 06-28-2022 ambulatory Kayla Dent Facility:[facility] Start: 06-27-2022 End: 06-27-2022 Patient encounter procedure Kayla Dent [facility] Start: 06-26-2022 End: 07-08-2022 Pre-admission assessment Kayla Dent [facility] Start: 03-28-2022 End: 03-28-2022 Patient encounter procedure Kayla Dent [facility] Start: 12-28-2021 Chart Update Salima garcia Work Phone: [facility] Work Phone: Start: 12-28-[address] Salima Gilman Facility:[id number] Start: 12-21-2021 Office outpatient visit 15 minutes Salima Gilman Work Phone: [facility] 250 DO Work Phone: Start: 12-21-2021 Patient encounter procedure Salima Spenceese Work Phone: [facility] 127 DO Work Phone: Start: 11-30-[address] Salima Gilman Facility:[id number] Start: 11-22-2021 Office outpatient visit 10 minutes Salima Spenceese Work Phone: [facility] Work Phone: Start: 11-22-2021 Patient encounter procedure Salima Spenceese Work Phone: [facility] Work Phone: Start: 08-18-2021 Rx Change Salima Recinos radha Work Phone: [facility] Work Phone: Start: 08-02-2021 End: 08-05-2021 ambulatory SAMARA ROE [facility] Start: 07-12-2021 Office outpatient visit 15 minutes Salima Recinosabrese Work Phone: [facility] Work Phone: Start: 06-23-2021 FUV, Provider: Samara Roe, Status: Pen, Time: 1:15 PM Salima Recinosabrese Work Phone: [facility] 127 DO Work Phone: Start: 06-23-2021 Patient encounter procedure Salima Recinosabrese Work Phone: [facility] 127 DO Work Phone: Start: 06-22-2021 Chart Update Salima Recinos abrronald Work Phone: [facility] 127 DO Work Phone: Start: 06-17-2021 Chart Update Salima Candelario Jorje radha Work Phone: [facility] Work Phone: Start: 06-14-2021 End: 09-12-2021 Patient encounter procedure SALIMA GILMAN [facility] Start: 06-07-2021 Patient encounter procedure Salima Gilman Work Phone: [facility] 127 DO Work Phone: Start: 05-23-2021 Chart Update Salima garcia Work Phone: [facility] 127 DO Work Phone: Start: 05-11-2021 Office outpatient ne w 45 minutes Salima Gilman Work Phone: [facility] 127 DO Work Phone: Start: 05-03-2021 Patient encounter procedure Salima Gilman Work Phone: [facility] Work Phone: Start: 04-27-2021 AUDIT Salima Candelario Jorje radha Work Phone: [facility] Work Phone: Start: 04-22-2021 [facility], Provider: Simone Coulter, Status: Pen, Time: 8:00 AM Salima Recinosabrese Work Phone: [facility] [place] Work Phone: Start: 04-21-2021 Chart Update Salima Recinos florindaese Work Phone: [facility] [place] Work Phone: Start: 12-09-2020 Patient encounter procedure Salima Candelario Kalina Work Phone: [facility] [place] Work Phone: Start: 11-23-2020 AUDIT Salima garcia Work Phone: [facility] Work Phone: Start: 10-29-2020 Patient encounter procedure Luna Zacarias PA-C [facility] Work Phone: Start: 10-14-2020 Patient encounter procedure Simone Coulter DO -[facility] [place] Work Phone: Start: 09-24-2020 Patient encounter procedure Simone Coulter DO -[facility] Work Phone: Start: 09-16-2020 Patient encounter procedure Simone Coulter DO -[facility] [place] Work Phone: Start: 08-17-2020 Patient encounter procedure Simone Sethraj -[facility] [place] Work Phone: Start: 08-09-2020 Patient encounter procedure Simone Sethraj -[facility] [place] Work Phone: Start: 06-28-2020 Patient encounter procedure Simone Coulter DO -[facility] [place] Work Phone: Start: 06-15-2020 Patient encounter procedure Simone Sethraj -[facility] Work Phone: Start: 05-05-2020 Patient encounter procedure Priscilla Leahy [facility] 8647 Work Phone: Start: 04-30-2020 Patient encounter procedure Priscilla Leahy [facility] 9204 Work Phone: Start: 04-26-2020 [facility] 6[facility] Work Phone: Start: 02-16-2020 Patient encounter procedure Priscilla Leahy [facility] 6115 Work Phone: Start: 01-21-2020 Patient encounter procedure Priscilla Leahy [facility] 6115 Work Phone: Start: 01-16-2020 Patient encounter procedure Priscilla Leahy [facility] 6115 Work Phone: Start: 01-12-2020 Patient encounter procedure Priscilla Leahy [facility] 6115 Work Phone: Start: 01-05-2020 Patient encounter procedure Priscilla Leahy NG-Zontnhplml-Zlqccftr A2100 DO Work Phone: Start: 10-27-2019 Patient encounter procedure Priscilla Leahy NR-Utinngmycc-Revuikwz A2100 DO Work Phone: Start: 10-15-2019 Patient encounter procedure Christian Benito [facility] Work Phone: Start: 08-25-2019 Patient encounter procedure Christian Benito [facility] Work Phone: Start: 06-30-2019 Patient encounter procedure Salima Gilman [facility] Work Phone: Start: 05-24-2019 Patient encounter procedure Salima Gilman [facility] Work Phone: Cancer cervix - screening done Simone Coulter DO [facility] Work Phone: Comment on above: 05/24/19-WNL, HPV NEG ; Encounter for gynecological examination (general) (routine) without abnormal findings Salima Gilman Work Phone: [facility] [place] Work Phone: Comment on above: 05/24/19-WNL, HPV NEG ; Mammography normal Salima perry Work Phone: [facility] Work Phone: Comment on above: 05/2020-cat 112/17/2 019-CAT 1; Procedures Date Procedure Procedure Detail Performing Clinician Start: 04-16-2023 Ecg routine ecg w/le ast 12 lds w/i&r 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 MACHINE OPERATOR PICKER-SEISMIC COMPUTER Work Phone: Start: 04-10-2023 LEGACY HOLTER OR ASHWIN NT MUCKER COFFERDAM JOSELO HINSON Start: 04-10-2023 Xtrnl pt activtd ecg dwnld w/r&i 30 days Joselo Hinson MACHINE OPERATOR PICKER-SEISMIC COMPUTER Work Phone: Start: 08-25-2022 End: 08-25-2022 EKG impression Kayla Shaw Start: 08-24-2022 End: 08-24-2022 EKG impression Skip Kelly Start: 07-14-2022 Catheterization of l eft heart Luna DICKINSON Start: 12-28-2021 Mammography Holter Start: 06-07-2021 Echocardiography Lynnette Gilman Work Phone: Start: 05-17-2021 Lipid 1996 panel - S jamaica or Plasma Holter Start: 01-05-2020 Ultrasound Pelvic Mass Priscilla Leahy Start: 01-05-2020 VAGINITIS GRAM STAIN FOR BACTERIAL VAGINOSIS + YEAST Priscilla Leahy Start: 10-15-2019 Assay of thyroid sti mulating hormone tsh Christian Sherlock Start: 06-30-2019 Scallop IgE IC Lynnette Gilman Start: 06-30-2019 Shrimp IgE IC Jake Gilman Start: 05-24-2019 Microscopic observat ion [Identifier] in Cervix by Cyto stain Holter Bilateral tubal ligation Mariposa Gilman Comment on above: 1995; Carpal tunnel syndrome (disorder) Skip Gonzalez section Salima perry Comment on above: 1990, 1992, 1995; section Skip Galarza josh Comment on above: x 3 Cholecystectomy Salima Jorje garcia Comment on above: 2017; Cholecystectomy Skip Dumont mildredyolanda Decompression of median nerve Salima Candelario Kalina Work Phone: Extraction of wisdom tooth J molly Gilman Ligation of fallopian tube R lisa Gonzalez Structure of wisdom tooth (body structure ) Skip Carlos Plan of Treatment Date Care Activity Detail Author Start: 05-17-2026 Lipid panel Lipid Panel [facility] Start: 07-16-2023 End: 07-16-2023 Patient encounter procedure 07/16/2023 11:00 AM EST Office Visit [address] [place] [id number] Federico Wing MD [address] [facility] Office [facility], [address] [place] [address] [facility] Start: 05-14-2023 FUV, Provider: Federico Wing, Status: Pen, Time: 8:45 AM FUV, Provider: Federico Wing, Status: Pen, Time: 8:45 AM [facility] 320 DO Work Phone: Start: 05-14-2023 End: 05-14-2023 Patient encounter procedure 05/14/2023 8:45 AM EST Office Visit [address] [place] [id number] Federico Wing MD [address] [facility] Office [facility], [address] [place], [place] [id number] [facility] Start: 04-16-2023 End: 04-16-2023 Patient encounter procedure 04/16/2023 1:00 PM EDT Office Visit [facility] [address] [facility] 300 [place] [address] 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, MACHINE OPERATOR PICKER-SEISMIC COMPUTER [address] [facility] 300 [place] [address] [facility] Start: 03-05-2023 EVENT GRACY, Provider: STANTON ROXANA PRINT TRAFFIC MANAGER 1,[id number], Status: Pen, Time: 3:00 PM EVENT GRACY, Provider: [facility] [id number] PRINT TRAFFIC MANAGER 1,[id number], Status: Pen, Time: 3:00 PM [facility] 320 DO Work Phone: Start: 02-16-2023 Influenza vaccination Influenza Vaccine (#1) [facility] Start: 12-28-2022 Screening for malignant neoplasm of breast Mammogram [facility] Start: 11-08-2022 KARAN, Provider: Federico Wing, Status: Pen, Time: 11:45 AM [facility]UVRESULTS, Provider: Federico Wing, Status: Pen, Time: 11:45 AM [facility] Work Phone: Start: 09-20-2022 FUVHOSP, Provider: Federico Wing, Status: Pen, Time: 11:45 AM [facility]HOSP, Provider: Federico Wing, Status: Pen, Time: 11:45 AM [facility] Work Phone: Start: 09-20-2022 Patient encounter procedure [facility] [place] Start: 09-01-2022 [facility], Provider: Federico Wing, Status: Pen, Time: 9:00 AM [facility], Provider: Federico Wing, Status: Pen, Time: 9:00 AM [facility] 300 DO Work Phone: Start: 08-29-2022 EKG, Provider: LEON SCHMIDT PRINT TRAFFIC MANAGER 1,[id number], Status: Pen, Time: 10:00 AM EKG, Provider: STANTON [id number] PRINT TRAFFIC MANAGER 1,[id number], Status: Pen, Time: 10:00 AM [facility] [place] Work Phone: Start: 08-29-2022 Patient encounter procedure [facility] [place] Start: 08-28-2022 EKG, Provider: [facility] [id number] PRINT TRAFFIC MANAGER 1,[id number], Status: Pen, Time: 10:00 AM EKG, Provider: [id number] PRINT TRAFFIC MANAGER 1,[id number], Status: Pen, Time: 10:00 AM [facility] [place] Work Phone: Start: 08-28-2022 Patient encounter procedure [facility] [place] Start: 08-25-2022 Arrhythmia Arrhythmia Date: 25-Aug-2022 [facility] Start: 08-24-2022 Arrhythmia Arrhythmia Date: 24-Aug-2022 [facility] Start: 08-22-2022 Chest pain Chest pain Date: 22-Aug-2022 [facility] Start: 08-14-2022 Screening for malignant neoplasm of colon [facility] Start: 05-24-2022 Screening for malignant neoplasm of cervix [facility] Start: 12-21-2021 FUV, Provider: Samara Roe, Status: Pen, Time: 9:45 AM FUV, Provider: Samara Roe, Status: Pen, Time: 9:45 AM [facility] 127 DO Work Phone: Start: 09-30-2021 COVID-19 Vaccine (2 - Booster for [place] series) COVID-19 Vaccine (2 - Booster for Chioma series) [facility] Start: 06-23-2021 FUV, Provider: Samara Roe, Status: Pen, Time: 1:15 PM FUV, Provider: Samara Roe, Status: Pen, Time: 1:15 PM [facility] Work Phone: Start: 06-16-2021 FUV, Provider: Samara Roe, Status: Pen, Time: 1:00 PM FUV, Provider: Samara Roe, Status: Pen, Time: 1:00 PM [facility] 127 DO Work Phone: Start: 06-07-2021 HOLTER 48, Provider: LEON GREENWOOD PRINT TRAFFIC MANAGER 1,[id number], Status: Pen, Time: 11:00 AM HOLTER 48, Provider: LEON GREENWOOD PRINT TRAFFIC MANAGER 1,[id number], Status: Pen, Time: 11:00 AM [facility] 127 DO Work Phone: Start: 06-07-2021 STRESS ESTELLE, Provider: [id number] HHVI NUCLEAR 01,[id number], Status: Pen, Time: 10:30 AM STR[facility] ESTELLE, Provider: [id number] HHVI NUCLEAR 01,[id number], Status: Pen, Time: 10:30 AM [facility] 127 DO Work Phone: Start: 06-07-2021 ECHO, Provider: CAMPBELL [facility] ULTRASOUND 01,[id number], Status: Pen, Time: 9:45 AM ECHO, Provider: CAMPBELL [facility] ULTRASOUND 01,[id number], Status: Pen, Time: 9:45 AM [facility] 127 DO Work Phone: Start: 05-11-2021 NPVRFRL, Provider: Samara Roe, Status: Pen, Time: 9:30 AM NPVRFRL, Provider: Samara Roe, Status: Pen, Time: 9:30 AM [facility] Work Phone: Start: 05-11-2021 NPVRFRL, Provider: Enrrique Porter, Status: Pen, Time: 9:15 AM NPVRFRL, Provider: Enrrique Porter, Status: Pen, Time: 9:15 AM -[facility] Work Phone: Start: 05-10-2021 FUV, Provider: Salima Gilman, Status: Pen, Time: 8:45 AM FUV, Provider: Salima Gilman, Status: Pen, Time: 8:45 AM [facility] Work Phone: Start: 05-03-2021 POV, Provider: Simone Coulter, Status: Pen, Time: 10:15 AM POV, Provider: Simone Coulter, Status: Pen, Time: 10:15 AM [facility] Work Phone: Start: 04-12-2021 POV, Provider: Simone Coulter, Status: Pen, Time: 9:00 AM POV, Provider: Simone Coulter, Status: Pen, Time: 9:00 AM [facility] Work Phone: Start: 04-01-2021 [facility], Provider: Simone Coulter, Status: Pen, Time: 7:30 AM [facility], Provider: Simone Coulter, Status: Pen, Time: 7:30 AM [facility] Work Phone: Start: 12-09-2020 FUV, Provider: Simone Coulter, Status: Pen, Time: 8:00 AM FUV, Provider: Simone Coulter, Status: Pen, Time: 8:00 AM [facility] Work Phone: Start: 2018 Zoster Vaccines (1 of 2) Zoster Vaccines (1 of 2) [facility] Start: 1990 DTaP/Tdap/Td Vaccines (1 - Tdap) DTaP/Tdap/Td Vaccines (1 - Tdap) [facility] Start: 1989 Screening for malignant neoplasm of cervix HPV/Cotest [facility] Start: 1986 Diabetes mellitus screening Diabetes Screening [facility] Start: 1986 Hepatitis C screening Hepatitis C Screening [facility] Start: 1974 Pneumococcal Vaccine: Pediatrics (0 to 5 Years) and At-Risk Patients (6 to 64 Years) (1 - PCV) Pneumococcal Vaccine: Pediatrics (0 to 5 Years) and At-Risk Patients (6 to 64 Years) (1 - PCV) [facility] Start: 1969 MMR Vaccines (1 of 1 - Standard series) MMR Vaccines (1 of 1 - Standard series) [facility] Start: 1968 Hepatitis B Vaccines (1 of 3 - 3-dose series) Hepatitis B Vaccines (1 of 3 - 3-dose series) [facility] Start: 1968 HIV screening HIV Screening [facility] Start: 1968 Screening for malignant neoplasm of colon [facility] Start: 1968 Yearly Adult Physical Yearly Adult Physical [facility] Chest pain Chest pain [facility] ECG 12 Lead ECG 12 Lead ECG Routine High risk medication use Palpitations Premature ventricular contractions (PVCs) (VPCs) 04/16/2023 3:53 PM EDT [facility] Service [facility] Work Phone: End: 04-10-2023 Holter monitor study [facility] Service Area Work Phone: Comment on above: Once for 1 Occurrenc es starting 04/10/2023 until 04/10/2023 [facility] Work Phone: NEGATED: Highlighted row has been ruled out! Planned Goals not documented [facility] Work Phone: Immunizations Immunization Date Immunization Notes Care Provider Wendy wei 08-05-2021 [place] COVID-19 Vaccine 0.5 ML Intramuscular Suspension Salima Gilman Work Phone: [facility] Work Phone: 06-29-2021 Covid-19 Non-us Vaccine, Product Unknown 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 APRN-[facility] Work Phone: [facility] Work Phone: Payers Date Payer Category Payer Unknown 2018 Private Health Insurance [id number] 1968 Unknown [id number] 2.16.8 [id number] 1968 Unknown [id number] 2.16.84 [id number] 1968 Unknown [id number] 2.16.8 40.1.496305.3.579.2.1068 1968 Unknown [id number] .16.8 40.1.689539.3.579.2.8 1968 Unknown [id number] .16.8 40.1.089900.3.579.2.1068 1968 Unknown [id number] .16.8 40.1.307218.3.579.2.8 1968 Unknown [id number] .16.8 40.1.232212.3.579.2.8 1968 Unknown [id number] 2. 840.1.216750.3.579.2. 1968 Unknown [id number] . 840.1.657588.3.579.2. 1968 Unknown [id number] 2.16 840.1.885514.3.579.2.356 1968 Unknown [id number] . 840.1.611310.3.579.2.356 1968 Unknown [id number] 2. 840.1.050672.3.579.2. 1968 Unknown [id number] . 840.1.770552.3.579.2.356 1968 Unknown [id number] 2.16. 840.1.011355.3.579.2.356 1968 Unknown [id number] 2.16. 840.1.955789.3.579.2.356 1968 Unknown [id number] .16.8 40.1.252679.3.579.2.1244 1968 Unknown [id number] 2.16.8 40.1.837531.3.579.2.727 1968 Unknown [id number] 2.16.8 40.1.246465.3.579.2.727 1968 Unknown [id number] 2.16.8 40.1.356686.3.579.2.727 1968 Unknown [id number] 2.16.8 40.1.775771.3.579.2.727 1968 Unknown [id number] 2.16.8 40.1.830694.3.579.2.72 1968 Unknown [id number] 2.16.8 40.1.826547.3.579.2.727 1968 Unknown [id number] 2.16.8 40.1.994327.3.579.2.727 1968 Unknown [id number] 2.16.8 40.1.058751.3.579.2.727 1968 Unknown [id number] 2.16.8 40.1.121545.3.579.2.727 1968 Unknown [id number] 2.16.8 40.1.341284.3.579.2.1245 1959 Unknown [id number] Unknown [id number] Social History Date Type Detail Facility Start: 04-10-2023 End: 04-13-2023 Never a smoker Never a smoker [facility] Work Phone: Comment on above: 3-4 cups coffee corky y, occasional tea/soda; Start: 04-10-2023 End: 04-13-2023 Sex Assigned At Female [facility] Tobacco smoking status No Smoking Status Entered [facility] Start: 07-12-2022 End: 04-10-2023 Tobacco smoking status Never smoked tobacco (finding) [facility] Tobacco smoking status Never [facility] Tobacco smoking consumption unknown [facility] Start: 04-10-2023 Tobacco use and exposure Smokeless tobacco non-user [facility] Work Phone: Start: 04-10-2023 End: 04-13-2023 Alcohol intake Lifetime non-drinker (finding) [facility] Work Phone: Start: 1970 Sex Assigned At Not on file [facility] Work Phone: Start: 04-06-2023 End: 04-16-2023 Exposure to SARS-CoV-2 (event) Not sure [facility] NEGATED: Highlighted row - - [facility] Work Phone: Functional Status Date Assessment Result Facility 09-23-2022 Functional Status N/A [facility] 08-07-[address] [facility] 07-12-[address] [facility] Functional observable [facility] NEGATED: Highlighted row Functional performance Functional status health issues are not documented Disease [facility] Work Phone: Mental Status Date Assessment Result Facility 08-24-2022 Cognitive functi ons [id number] [facility] NEGATED: Highlighted row Cognitive function [Interpretation] Cognitive status health issues are not documented Disease [facility] Work Phone: Clinical Notes 06-17-2021 to 04-16-2023 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, MACHINE OPERATOR PICKER-SEISMIC COMPUTER - 04/16/2023 1:00 PM EDT Note Date & Type Note Facility 04-16-2023 History of Present illness Narrative Rasheeda Hanna is a 52 y.o. female that presents to the office today with her for pre-operative cardiac evaluation. She follows with Dr. Wing and was added to my schedule today. She has a PMH of Palpitations, dizziness, PVC's, PAC's, near syncopal episode, chest discomfort. She underwent a stress test, echocardiogram and also EKGs. At the beginning of 2022, she had an episode of severe chest discomfort associated with palpitations and she had that in the hospital. An echocardiogram shows normal left ventricular function. A Holter monitor was ordered that showed episodes of PVCs with a burden of premature ventricular contractions approximately 14.8% of the total beats. No evidence of ventricular tachycardia. Cardiac catheterization July 2022 that showed no significant coronary artery disease. His stress test in June 2021 shows no exercise-induced chest discomfort no significant ST changes at 89% of maximal heart rate predicted. PACs with aberrant conduction at rest and in recovery. Normal EKG normal stress test. Echocardiogram in June 2021 shows normal left ventricular function of 65% with no evidence of ventricular hypertrophy no significant valvular abnormalities. Patient presented to emergency department few days later complaining of palpitations. In the emergency department patient did not have any significant bradycardia but she had frequent PVCs. Flecainide was started. She started on flecainide 50 mg 1 tablet twice a day which has since been increased to 100 mg twice a day. Cardiac MRI in September 2022 shows left ventricular ejection fraction 67% with delayed enhancement normal. She presents to the office today for preoperative cardiac evaluation for right foot surgery for a torn tendon and a history of a fractured heel with planned fusion to be done at [facility] with Dr. Cyndi Bloom, operative date is pending. She states she continues to experience palpitations on and off and felt that they were improving but feels now they are becoming more frequent. She currently denies any chest pain, chest pressure, chest tightness, shortness of breath, lightheadedness or dizziness. She continues to work full-time and is independent at home. She is able to complete greater than 4 METS without cardiac symptoms. Testing Reviewed Recent [facility] Holter monitor preliminary report shows sinus rhythm with PACs and PVCs. EKG obtained in the office today and verified by Dr. Wing shows normal sinus rhythm HR 61 bpm. QT/QTc 402/404. Assessment 1. Palpitations 2. Dizziness 3. PVCs 4. PACs 5. Bradycardia Plan 1. I have reviewed today's EKG, medications, past medical history and assessment with Dr. Wing who feels that She is at moderate risk for cardiovascular events during surgical procedure, but at acceptable risk to proceed with surgery. 2. Continue current medications. Do not hold flecainide for pending surgery 3. Follow-up with Dr. Wing as previously scheduled or sooner if needed. Patient Active Problem List Diagnosis Abnormal mammogram Acute bronchitis Atypical mole Breast lump on right side at 12 o'clock position Carpal tunnel syndrome on both sides Chronic cough Enlarged lymph node in neck Habitual snoring Iron deficiency anemia Labile mood Menopausal symptoms Obesity (BMI 35.0-39.9 without comorbidity) Palpitations Pelvic mass in female Pelvic pain in female Personal history of COVID-19 Post-op pain Premature ventricular contractions (PVCs) (VPCs) Rhinitis Sleep-disordered breathing Class 2 obesity with body mass index (BMI) of 36.0 to 36.9 in adult Food allergy High risk medication use Post-COVID chronic cough Shellfish allergy Sinus node dysfunction (CMS/HCC) Tachycardia Social History Tobacco Use Smoking status: Never Smokeless tobacco: Never Substance Use Topics Alcohol use: Never Drug use: Never Past Medical History: Diagnosis Date COVID-19 05/05/2020 COVID-19 virus infection Encounter for gynecological examination (general) (routine) without abnormal findings Pap test, as part of routine gynecological examination Encounter for screening for malignant neoplasm of colon 05/24/2019 Colon cancer screening Other conditions influencing health status Mammogram normal Current Outpatient Medications: aspirin 81 mg EC tablet, Take 1 tablet (81 mg) by mouth once daily., Disp: , Rfl: cetirizine (ZyrTEC) 10 mg capsule, Take 1 capsule (10 mg) by mouth once daily at bedtime., Disp: , Rfl: cholecalciferol (Vitamin D3) 5,000 Units tablet, Take 1 tablet (5,000 Units) by mouth once daily., Disp: , Rfl: EPINEPHrine 0.3 mg/0.3 mL injection syringe, USE DIRECTED FOR ALLERGIC REACTION, Disp: , Rfl: ferrous sulfate 325 (65 Fe) MG EC tablet, Take 1 capsule twice daily, Disp: , Rfl: flecainide (Tambocor) 100 mg tablet, Take 1 tablet (100 mg) by mouth every 12 hours., Disp: , Rfl: lysine 1,000 mg tablet, Take 1 tablet (1,000 mg) by mouth once daily., Disp: , Rfl: magnesium oxide 400 mg magnesium capsule, Take 1 capsule (400 mg) by mouth once daily., Disp: , Rfl: metoprolol succinate XL (Toprol-XL) 25 mg 24 hr tablet, Take 1 tablet (25 mg) by mouth once daily., Disp: , Rfl: multivitamin tablet, Take 1 tablet by mouth once daily., Disp: , Rfl: omeprazole (PriLOSEC) [address] capsule, Take 1 capsule (40 mg) by mouth once daily., Disp: , Rfl: sertraline (Zoloft) 50 mg tablet, Take 1 tablet (50 mg) by mouth once daily., Disp: 90 tablet, Rfl: 0 solifenacin (VESIcare) 10 mg tablet, Take 1 tablet (10 mg) by mouth once daily. Swallow tablet whole; do not crush, chew, or split., Disp: , Rfl: VITAMIN B COMPLEX ORAL, Take 1 tablet by mouth once daily., Disp: , Rfl: Shellfish containing products Family History Problem Relation Name Age of Onset Lung cancer Mother Cancer Mother Past Surgical History: Procedure Laterality Date OTHER SURGICAL HISTORY 05/24/2019 Tubal ligation bilateral OTHER SURGICAL HISTORY 05/24/2019 Cholecystectomy OTHER SURGICAL HISTORY 05/24/2019 [place] tooth extraction OTHER SURGICAL HISTORY 05/24/2019 section OTHER SURGICAL HISTORY 05/11/2021 Carpal tunnel surgery Review of systems Constitutional: No weight loss, fever, chills, weakness or fatigue HEENT: No visual loss, blurred vision, double vision or yellow sclerae Skin: No rash or itching Cardiovascular: No chest pain, pressure or discomfort, No palpitations or edema. Respiratory: No shortness of breath, cough or sputum Gastrointestinal: No nausea, vomiting or diarrhea. No bloody or dark tarry stools. Neurological: No headache, lightheadedness, dizziness, syncope. Musculoskeletal: No muscle, back pain, joint pain or stiffness. Hematologic: No anemia, bleeding or bruising. There were no vitals taken for this visit. Patient Active Problem List Diagnosis Abnormal mammogram Acute bronchitis Atypical mole Breast lump on right side at 12 o'clock position Carpal tunnel syndrome on both sides Chronic cough Enlarged lymph node in neck Habitual snoring Iron deficiency anemia Labile mood Menopausal symptoms Obesity (BMI 35.0-39.9 without comorbidity) Palpitations Pelvic mass in female Pelvic pain in female Personal history of COVID-19 Post-op pain Premature ventricular contractions (PVCs) (VPCs) Rhinitis Sleep-disordered breathing Class 2 obesity with body mass index (BMI) of 36.0 to 36.9 in adult Food allergy High risk medication use Post-COVID chronic cough Shellfish allergy Sinus node dysfunction (CMS/HCC) Tachycardia Physical Exam Constitutional: Well developed, awake/alert x 3, no distress. Head/Neck: No JVD, No bruits Respiratory/Thorax: patent airways, CTAB, normal breath sounds with good expansion. Cardiovascular: Regular rate and rhythm, no murmurs, normal S1 and S2, Gastrointestinal: Non distended, soft, non-tender, no rebound tenderness or guarding. Extremities: No cyanosis, edema. Neurological: Alert and oriented x 3. Moves extremities spontaneous with purpose. Psychological: Appropriate mood and behavior Skin: Warm and Dry. No lesions or rashes. Please excuse any errors in grammar or translation related to dictation, voice recognition software was used to prepare this document. documented in this encounter [facility] Work Phone: 11-03-2022 Note [id number] [facility] 09-24-2022 Evaluation + Plan note Extrac chantel from: Title:ED Note Author:Vincent Pan MD Date: 3 1. Accidental overdose (T50. 901A: Poisoning by unspecified drugs, medicaments and biological substances, accidental (unintentional), initial encounter) Orders: ECG 12 Lead Adult ECG 12 Lead Adult ECG 12 Lead Adult [facility]04-09-2023 Hospital Discharge instructions Patient Education 09/24/2022 04:14:34 Accidental Drug Poisoning, Adult Accidental Drug Poisoning, Adult Accidental drug poisoning happens when a person accidentally takes too much of a substance, such asa prescription medicine, an fofe-jlh-zmrftfj medicine, a vitamin, a supplement, or an illegal drug.The effects of drug poisoning can be mild, dangerous, or even deadly. What are the causes? This condition is caused by taking too much of a medicine, illegal drug, or other substance. It often results from: Lack of knowledge about a substance. Using more than one substance at the same time. An error made by the health care provider who prescribed the substance. An error made by the pharmacist who filled the prescription. A lapse in memory, such as forgetting that you have already taken a dose of the medicine. Suddenly using a substance after a long period of not using it. The following substances and medicines are more likely to cause an accidental drug poisoning: Medicines that treat mental problems (psychotropic medicines). Pain medicines. Cocaine. Heroin. Multivitamins that contain iron. Yhnz-xuf-nkshqjp cold and cough medicines. What increases the risk? This condition is more likely to occur in: Elderly adults. Elderly adults are at risk because they may: ?Be taking many different medicines. ?Have difficulty reading labels. ?Forget when they last took their medicine. People who use illegal drugs. People who drink alcohol while using illegal drugs or certain medicines. People with certain mental health conditions. What are the signs or symptoms? Symptoms of this condition depend on the substance and the amount that was taken. Common symptoms include: Behavior changes, such as confusion. Sleepiness. Weakness. Slowed breathing. Nausea and vomiting. Seizures. Very large or small eye pupil size. A drug poisoning can cause a very serious condition in which your blood pressure drops to a low level (shock). Symptoms of shock include: Cold and clammy skin. Pale skin. Blue lips. Very slow breathing. Extreme sleepiness. Severe confusion. Dizziness or fainting. How is this diagnosed? This condition is diagnosed based on: Your symptoms. You will be asked about the substances you took and when you took them. A physical exam. You may also have other tests, including: Urine tests. Blood tests. An electrocardiogram (ECG). How is this treated? This condition may need to be treated right away at the hospital. Treatment may involve: Getting fluids and electrolytes through an IV. Having a breathing tube inserted in your airway (endotracheal tube) to help you breathe. Taking medicines. These may include medicines that: ?Absorb any substance that is in your digestive system. ?Block or reverse the effect of the substance that caused the drug poisoning. Having your blood filtered through an artificial kidney machine (hemodialysis). Ongoing counseling and mental health support. This may be provided if you used an illegal drug. Follow these instructions at home: Medicines Take cejk-oeg-vcjouqm and prescription medicines only as told by your health care provider. Before taking a new medicine, ask your health care provider whether the medicine: ?May cause side effects. ?Might react with other medicines. Keep a list of all the medicines that you take, including ixpy-uzt-zwsyjws medicines, vitamins, supplements, and herbs. Bring this list with you to all of your medical visits. General instructions Drink enough fluid to keep your urine pale yellow. If you are working with a counselor or mental health professional, make sure to follow his or her instructions. Do not drink alcohol if: ?Your health care provider tells you not to drink. ?You are , may be , or are planning to become . If you drink alcohol, limit how much you have: ?0 1 drink a day for women. ?0 2 drinks a day for men. Be aware of how much alcohol is in your drink. In the [place] one drink equals one typical bottle of beer (12 oz), one-half glass of wine (5 oz), or one shot of hard liquor (1 oz). Keep all follow-up visits as told by your health care provider. This is important. How is this prevented? Get help if you are struggling with: ?Alcohol or drug use. ?Depression or another mental health problem. Keep the phone number of your local poison control center near your phone or on your cell phone. The hotline of the [place] [employer] of Poison Control Centers is . Store all medicines in safety containers that are out of the reach of children. Read the drug inserts that come with your medicines. Create a system for taking your medicine, such as a pillbox, that will help you avoid taking too much of the medicine. Do not drink alcohol while taking medicines unless your health care provider approves. Do not use illegal drugs. Do not take medicines that are not prescribed for you. Contact a health care provider if: Your symptoms return. You develop new symptoms or side effects after taking a medicine. You have questions about possible drug poisoning. Call your local poison control center at . Get help right away if: You think that you or someone else may have taken too much of a substance. You or someone else is having symptoms of drug poisoning. Summary Accidental drug poisoning happens when a person accidentally takes too much of a substance, such asa prescription medicine, an qsll-kdk-nnhpirg medicine, a vitamin, a supplement, or an illegal drug. The effects of drug poisoning can be mild, dangerous, or even deadly. This condition is diagnosed based on your symptoms and a physical exam. You will be asked to tell your health care provider which substances you took and when you took them. This condition may need to be treated right away at the hospital. This information is not intended to replace advice given to you by your health care provider. Make sure you discuss any questions you have with your health care provider. Document Released: 08/18/2005 Document Revised: 05/17/2018 Document Reviewed: 05/06/2018 [employer] Patient Education 2020 [employer]. Follow Up Care 09/23/2022 22:10:17 With:Kayla Dent Address: [address] [place] [address]- Business (1) When:09/27/2022 only if needed [facility]03-10-2023 NoteSend Summary: Discharge Summary Providers: Provider RoleProvider Name Kayla Minaya AttendingSkip Kelly [facility], Federico PrimaryKayla Dent Note Recipients: Kayla Dent MD - [id number] [] Discharge: Summary: Admission Date: .22-Aug-2022 14:34:00 Discharge Date: 25-Aug-2022 Attending Physician at Discharge: Skip Kelly Admission Reason: Palpitations Final Discharge Diagnoses: PVC (premature ventricular contraction) Bigeminy Bradycardia Dizziness Procedures: none Condition at Discharge: Satisfactory Disposition at Discharge: .Home Vital Signs: T PRBPMAPSpO2 [id number]/888214% Date/Time08/25 12:173 12:173 12:173 12:173 12:173 12:17 Range(36C - 37C ) (37 - 72 ) (16 - 18 ) (95 - 163 )/ (49 - 77 ) (70 - 104 ) (93% - 99% ) Highest temp of 37 C was recorded at 3/9 0:32 Date: Weight/Scale Type:Height: 24-Aug-2022 04:5582.6 kg / standing Physical Exam: Constitutional: Well developed, awake/alert/oriented x3, no distress, alert and cooperative Eyes: PERRL, EOMI, clear sclera Respiratory/Thorax: Clear to auscultation bilaterally; normal respiratory effort Cardiovascular: Regular rate and rhythm; no murmurs/rubs/gallops; intact distal pulses Gastrointestinal: Nondistended, soft, non-tender, no rebound tenderness or guarding, no masses palpable, +BS Extremities: normal extremities, no cyanosis edema, contusions or wounds, no clubbing Neurological: alert and oriented x3, intact senses, motor response and reflexes, normal strength Psychological: Appropriate mood and behavior Skin: Warm and dry, no lesions, no rashes Hospital Course: 51-year-old female past medical history of incontinence, symptomatic PVCs, bradycardia, presenting to the emergency department increasing dizziness, lightheadedness, chest discomfort, palpitations. These are symptoms that she has had with her PVCs previously and for which she follows with electrophysiology. There had been a tentative plan to have her get a pacemaker next week however she presented to the emergency department these increase symptoms. EP was consulted and reviewed her telemetry data which showed episodes of bigeminy with compensatory pauses. Decision was made to start her on flecainide to try to control this with the goal of hopefully avoiding a pacemaker. Symptomatically she did improve with this though still does have brief episodes particularly in the hour before her next dose of flecainide. EP decided that we would increase her dose of flecainide to 75 mg twice daily on 08/27/2022 and that she would follow-up in the outpatient office on Sunday and Sunday subsequently for repeat EKGs. Currently there is no plan to pursue pacemaker. With improved symptoms and her tolerating the addition of flecainide she is stable for discharge home with outpatient follow-up with EP as described. 35 minutes spent in discharge activities. Discharge Information: and Continuing Care: Lab Results - Pending: None Radiology Results - Pending: None Discharge Instructions: Activity: activity as tolerated. Follow Up Appointments: Follow-Up Appointment 01: Physician/Dept/Service: Dr. Wing Reason for Referral: Electrophysiology follow-up Scheduled Date/Time: 20-Sep-2022 11:45 Location: [facility] office in [place] [address] Discharge Medications: Home Medication sertraline 50 mg oral tablet - 1 tab(s) orally once a day solifenacin 5 mg oral tablet - 1 tab(s) orally once a day metoprolol succinate 25 mg oral tablet, extended release - 1 tab(s) orally once a day Aspirin Low Dose - 81 orally once a day omeprazole 40 mg oral delayed release capsule - 1 cap(s) orally once a day Multiple Vitamins oral tablet - 1 tab(s) orally once a day flecainide 50 mg oral tablet - 1 tab(s) orally 2 times a day on 08/25 and 08/26 then increase to 1.5 tablets 2 times a day starting 08/27/22 magnesium oxide 400 mg oral tablet - 1 tab(s) orally once a day B Complex 50 oral tablet, extended release - 1 tab(s) orally once a day Vitamin D3 1000 intl units (25 mcg) oral capsule - 1 cap(s) orally once a day ferrous sulfate 200 mg (65 mg elemental iron) oral tablet - 2 tab(s) orally once a day PRN Medication EPINEPHrine 0.3 mg injectable kit - 0.3 milliliter(s) injectable once a day, As Needed DIRECTED DNR Status: Code StatusCode Status order at time of discharge: Full Code Electronic Signatures: Skip Kelly) (Signed 25-Aug-2022 16:22) Authored: Send Summary, Summary Content, Ongoing Care, DNR Status, Note Completion Last Updated: 25-Aug-2022 16:22 by Skip Kelly)[facility]03-10-2023 Hospital Discharge instructions* Activity:activity as tolerated. * Follow Up Appointment 1:Physician/Dept/Service: Dr. Gandhi for Referral: Electrophysiology follow-upScheduled Date/Time: 20-Sep-2022 11:45Location: [facility] office in [address] [address]Phone Number: [phone] * Gold Form - Other Clinicians:Other Clinician Instructions: [facility] with EP for repeat EKGs on monday 08/28 and tuesday 08/29. You will be increasing your flecainide to 75mg twice daily on Sunday. Please call the office or return to the hospital if you have worsening chest pain, shortness of breath, if you pass out, or have any other concerning symptoms. [facility]03-07-2023 NoteHistory of Present Illness: /Lactating: Are You no (1) Are You Currently Breastfeedingno (1) HPI: RASHEEDA HANNA is a 51 year old Female with past medical history of incontinence, symptomatic PVCs, bradycardia, who is presenting with increasing dizziness, lightheadedness, and chest discomfort. She has been following with electrophysiology for these issues as well as symptomatic bradycardia. She had actually been planned for a pacemaker placement next Sunday. She presented to the ED today because her symptoms became progressive and more constant. She has followed with Dr. Wing and has noted in the past to have had bradycardia on her iWatch as well as multiple PVCs on telemetry and Holter monitor. Initially had been treated with beta-blockers but she is no longer on that due to the bradycardia. She had a catheterization in July of this year that did not show any significant coronary artery disease. Currently on telemetry she is in and out of what appears to be bigeminy with actual rates in the 40s. When she is in this rhythm and with rates at low she is able to tell because she becomes increasingly dizzy. Otherwise she has no specific complaints, specifically no abdominal pain, nausea vomiting, diarrhea, dysuria, frequency. PMHx: incontinence PSHx: x3, cholecystectomy FHx: daugther with hypoplastic right heart SHx: no tobacco, etoh, drugs; independent at baseline 10 point ROS conducted and negative except as noted above. Allergies: NKDA: Shell Fish: Facial Swelling, Hives/Urticaria Medications Prior to Admission: Outpatient Meds have not been reviewed. Objective: Objective Information: T PRBPMAPSpO2 [id number]/8998% Date/Time08/22 14: 16: 16: 16: 16:44 Range(36.8C - 36.8C ) (38 - 38 ) (18 - 18 ) (165 - 179 )/ (87 - 89 ) (98% - 98% ) Pain reported at 08/22 14:46: 3 = Mild Physical Exam by System: Constitutional: Well developed, awake/alert/oriented x3, no distress, alert and cooperative Eyes: PERRL, EOMI, clear sclera Respiratory/Thorax: Clear to auscultation bilaterally; normal respiratory effort Cardiovascular: Regular rate and rhythm; no murmurs/rubs/gallops; intact distal pulses Gastrointestinal: Nondistended, soft, non-tender, no rebound tenderness or guarding, no masses palpable, +BS Extremities: normal extremities, no cyanosis edema, contusions or wounds, no clubbing Neurological: alert and oriented x3, intact senses, motor response and reflexes, normal strength Psychological: Appropriate mood and behavior Skin: Warm and dry, no lesions, no rashes Recent Lab Results: Results: CBC: 08/22/2022 15:09 \ Hgb / \ 14.6 / WBC Plt 10.4 285 / Hct \ / 42.8 \ RBC: 4.58 MCV: 93 Neutrophil %: 67.1 CMP: 08/22/2022 15:09 NA+ Cl- BUN / 139 102 16 / Glucose 92 K+ HCO3- Creat \ 3.8 28 0.93 \ \ T Bili / \ 0.4 / AST x ---- x ALT 22 x ---- x 29 / Alk P \ / 80 \ Calcium : 9.4 Anion Gap : 13 Albumin : 4.3 T Protein : 7.8 Coagulation: 08/22/2022 15:09 PT / 12.6 / -------< INR < 1.1 PTT\ \ Assessment and Plan: Assessment: Symptomatic bradycardia Bigeminy -EP consult, likely for PPM this admission -chest pain not suspected to be ACS with negative troponins and cath with minimal disease last month -PRN atropine for hemodynamic instability associated with bradycardia -avoid AV dilshad blockers -hold her home sertraline given associate with mild bradycardia Incontinence -Resume home meds once reconciled DVT PPx: pharmacologic held due to possibility of procedure tomorrow Code: FULL Electronic Signatures: Skip Kelly) (Signed 22-Aug-2022 18:03) Authored: History of Present Illness, Comorbidities, Allergies, Medications Prior to Admission, Objective, Assessment and Plan, Note Completion Last Updated: 22-Aug-2022 18:03 by Skip Kelly) References: 1. Data Referenced From Triage - ED 22-Aug-2022 14:46[facility] 07-21-2022 NoteProcedure [facility] poss PCI via right radial for abnormal stress test Patient seen and examined. The risk/benefits of the procedure were thoroughly discussed with patient including specific attention to lack of onsite surgical backup and risk of sina covid, and the patient agrees to proceed. Airway Assessment: Class I: Visualization of the soft palate, fauces, uvula, anterior and posteriorpillars Airway Abnormalities: none ASA Classification: ASA 2: Mild systemic disease Risks/Benefits of IV Sedation: Have been explained IV Sedation Plan: Patient agrees to IV sedation [facility] Comment on above:Result Comment: Electronically Signed By: Carlos MCMAHON, Skip Katz\.br\Date and Time Signed: 07/21/22 13:52 [id number] Note [id number]:[address] [place] [address] 07-13-2022 [id number]:[address] [place], [place] [address]01-01-2022 History of Present illness Narrative* Primary MD: Kalina * Patient was most recently seen June 2021. * At the last visit, the dose of magnesium oxide was increased, she developed diarrhea and had to stop the medication. Since then she also stopped the metoprolol, did not feel that the metoprolol was helping. Continues to have occasional palpitations which she describes as a flip-flopping sensation. No associated chest discomfort shortness of breath lightheadedness presyncope or syncope. * BMI is excessive and we discussed this. * Patient is working full-time. * Medications were reviewed, they are mostly supplements. Blood pressure is at target. * Home sleep study did not suggest sleep apnea. * On examination today I could hear ectopic beats. * This is a patient with preserved LV systolic function, negative treadmill stress test, home sleep study negative for sleep apnea, with ventricular and supraventricular premature beat, sometimes symptomatic. * Likelihood for malignant dysrhythmia remains low. * Magnesium oxide gave patient diarrhea, she does not want to try it again. She does not want to try it at a lower dose either. She also stopped the metoprolol because did not feel that it helped. * Assessment: * 1. Palpitations * 2. Ventricular premature beats on EKG * 3. Increased BMI * 4. Excessive snoring and some daytime sleepiness * 5. Blood pressure was initially elevated, repeat blood pressure was at target. * 6. Cannot exclude biatrial enlargement on EKG -[facility] [address] DO Work Phone: [phone] 616-851401-01-2022 History of Present illness Narrative* Primary MD: Kalina * Patient was most recently seen June 2021. * At the last visit, the dose of magnesium oxide was increased, she developed diarrhea and had to stop the medication. Since then she also stopped the metoprolol, did not feel that the metoprolol was helping. Continues to have occasional palpitations which she describes as a flip-flopping sensation. No associated chest discomfort shortness of breath lightheadedness presyncope or syncope. * BMI is excessive and we discussed this. * Patient is working full-time. * Medications were reviewed, they are mostly supplements. Blood pressure is at target. * Home sleep study did not suggest sleep apnea. * On examination today I could hear ectopic beats. * This is a patient with preserved LV systolic function, negative treadmill stress test, home sleep study negative for sleep apnea, with ventricular and supraventricular premature beat, sometimes symptomatic. * Likelihood for malignant dysrhythmia remains low. * Magnesium oxide gave patient diarrhea, she does not want to try it again. She does not want to try it at a lower dose either. She also stopped the metoprolol because did not feel that it helped. * PMH: * 1. Palpitations * 2. Ventricular premature beats on EKG * 3. Increased BMI * 4. Excessive snoring and some daytime sleepiness * 5. Blood pressure was initially elevated, repeat blood pressure was at target. * 6. Cannot exclude biatrial enlargement on EKG * 7. Echocardiogram 06/07/2021-LVEF 65% left atrial diameter 2.8 cm left atrial volume index not reported, impaired relaxation pattern of LV diastolic filling, no evidence of left ventricular hypertrophy, no significant valvular heart disease, RV size and systolic function normal, no tricuspid regurgi tation hence RV systolic pressure could not be estimated * 8. Stress Myoview 06/07/2021-exercised for 5 minutes achieving 7 METS peak heart rate 150 bpm whichis 90% age-predicted maximum heart rate resting blood pressure 96/50 functional capacity below average no symptoms during the exam blood pressure response normal study was terminated due to fatigue PACs with aberrant conduction was noted at rest and in recovery stress test with reported to be a lowrisk study * 9. Shellfish allergy * 10. Home sleep study-no evidence of sleep apnea * Assessment: * 1. Palpitations * 2. Ventricular premature beats on EKG * 3. Increased BMI * 4. Excessive snoring and some daytime sleepiness * 5. Blood pressure is at target * 6. Cannot exclude biatrial enlargement on EKG * Recommendations: * 1. Patient should continue heart healthy lifestyle * 2. Follow-up as needed. * 3. Regular medical care per Dr. Gilman * I thank you Dr. Gilman for allowing me to participate in this patient's care, please do not hesitate to call if further questions arise, * Sincerely, * Samara Roe MD [facility] [address] DO Work Phone: [phone] Evaluation + Plan note Future Scheduled Tests Laboratory* COVID-19 ([facility] [place] [place]) 06/17/21 [facility]12-31-2021 History of Present illness Narrative* COUGH: * - Onset: Had a cough with COVID-19 (tested positive 06/17/21) - cough has not gone away * - Clinical course: getting worse * - Pt denies: fever, chills, SOB, chest pain, nasal congestion, headache * - Hx similar: had bronchitis a long time ago, no hx of pneumonia, asthma, eczema * - Txs tried: cough drops * - Not a smoker [facility] Work Phone: [phone]) 737-487312-31-2021 History of Present illness Narrative* COUGH: * - Onset: Had a cough with COVID-19 (tested positive 06/17/21) - cough has not gone away * - Clinical course: getting worse * - Pt denies: fever, chills, SOB, chest pain, nasal congestion, headache * - Hx similar: had bronchitis a long time ago, no hx of pneumonia, asthma, eczema * - Txs tried: cough drops * - Not a smoker [facility] [address] DO Work Phone: Evaluation + Plan note Future Appointments Appointment Date:06/27/2022 08:30:00 AM Scheduled Provider: Location:.MAMMOGRAM Appointment Type:MA Screen () Future Scheduled Tests Laboratory* COVID-19 ([facility] [place]) 06/17/21 Radiology* MA Mamm Screen w/CAD if perf and 3D Ismael [facility] Future Appointments Appointment Date:07/07/2022 09:00:00 AM Scheduled Provider: Location:.CARDIO Appointment Type:CV Holter/Event () [facility] Future Appointments Appointment Date:07/12/2022 04:00:00 PM Scheduled Provider:Skip Gonzalez MD Location:.Cardiology Clinic Appointment Type:Cardiology New [facility] () [facility] Future Appointments Appointment Date:09/22/2022 09:30:00 AM Scheduled Provider: Location:.CARDIO Appointment Type:CV EKG () [facility] note* Psychological: Appropriate mood and behaviorNeurological: alert and oriented x3, intact senses, motor, response and reflexes, normal strengthExtremities: normal extremities, no cyanosis, edema, contusions, wounds, or clubbingMusculoskeletal: ROM intact, no joint swelling, normal strengthCardiovascular: Regular rate and rhythm, no murmurs, 2+ equal pulses of the extremities, normal S 1and S 2. Telemetry shows SR with HR 58-80 BPM occasional PVC's and BigeminyRespiratory/Thorax: Patent airways, normal breath sounds with good chest expansion, thorax symmetricConstitutional: Well developed, awake/alert/oriented x3, no distress, alert and cooperative [facility]* Diagnosis Palpitations documented in this encounter [facility] Work Phone: Evaluation note* Diagnosis High risk medication use- Primary Palpitations Premature ventricular contractions (PVCs) (VPCs) Other premature beats Tachycardia Unspecified tachycardia documented in this encounter [facility] Work Phone: Evaluation note* Diagnosis Palpitations documented in this encounter [facility] Work Phone: History of Present illness NarrativeThe patient comes in today. She is two weeks out right carpal tunnel release. She states numbness and tingling has completely resolved in the interim since surgery. Denies any fevers, chills, constitutional symptoms. She has been working on gentle motion recovery, keeping the incision clean and dry.-[facility] Work Phone: History of Present illness Narrative* Patient is new to provider. * Primary MD: Kalina * Patient is being seen in cardiology consultation at the request of Dr. Gilman guarding palpitations and ventricular premature beats. * Patient reports that she has had palpitations all her life. She describes it as a sensation that she cannot catch her breath. Sometimes she feels her heart beating in her throat. No chest pressure tightness heaviness lightheadedness presyncope or syncope. * Averages 3 to 4 cups of coffee a day. * No prior coronary artery disease history. No history of valvular heart disease. * Has anaphylactic reaction to shellfish. * Perimenopausal, last. August 2020. * BMI is excessive. * In April 2020 when she had carpal tunnel surgery on her right hand. At that time her EKG was noted to have some abnormalities, extra beats. * EKG today shows normal sinus rhythm with normal intervals, and 104 ventricular premature beats. * Patient status post cholecystectomy * Never smoker * No prior cardiac work-up. * Medications and allergies reviewed. BMI is 35.94. * On her EKG, her P waves are a little prominent. Cannot exclude biatrial enlargement. * Patient does have a history of excessive snoring and some daytime somnolence, but does not believe that she has obstructive sleep apnea, and is not particularly interested in pursuing a sleep study. * I do not see any reason laboratory data for review. * Assessment: * 1. Palpitations * 2. Ventricular premature beats on EKG * 3. Increased BMI * 4. Excessive snoring and some daytime sleepiness * 5. Blood pressure was initially elevated, repeat blood pressure was at target. * 6. Cannot exclude biatrial enlargement on EKG * 7. No recent laboratory data to review. * Recommendations: * 1. Echocardiogram, 48-hour Holter monitor, stress Myoview in the near future. * 2. Magnesium oxide 400 mg p.o. twice daily may reduce to 1 tablet daily if diarrhea occurs * 3. Basic metabolic profile fasting liver lipid profile CBC free T4 TSH magnesium level in the near future * 4. Heart healthy lifestyle and weight management were discussed, can continue further discussion atnext visit. * 5. Follow-up after testing sooner if interval problems arise * 6. Rationale for testing and the possible reason for her palpitations was talked about. * I thank you Dr. Gilman allowing me to participate in patient's care, please not hesitate to callif further questions arise, * Sincerely, * Samara Roe MD [facility] [address] DO Work Phone: History of Present illness Narrative* Patient is new to provider. * Primary MD: Kalina * Patient is being seen in cardiology consultation at the request of Dr. Gilman guarding palpitations and ventricular premature beats. * Patient reports that she has had palpitations all her life. She describes it as a sensation that she cannot catch her breath. Sometimes she feels her heart beating in her throat. No chest pressure tightness heaviness lightheadedness presyncope or syncope. * Averages 3 to 4 cups of coffee a day. * No prior coronary artery disease history. No history of valvular heart disease. * Has anaphylactic reaction to shellfish. * Perimenopausal, last. August 2020. * BMI is excessive. * In April 2020 when she had carpal tunnel surgery on her right hand. At that time her EKG was noted to have some abnormalities, extra beats. * EKG today shows normal sinus rhythm with normal intervals, and 104 ventricular premature beats. * Patient status post cholecystectomy * Never smoker * No prior cardiac work-up. * Medications and allergies reviewed. BMI is 35.94. * On her EKG, her P waves are a little prominent. Cannot exclude biatrial enlargement. * Patient does have a history of excessive snoring and some daytime somnolence, but does not believe that she has obstructive sleep apnea, and is not particularly interested in pursuing a sleep study. * I do not see any reason laboratory data for review. * Assessment: * 1. Palpitations * 2. Ventricular premature beats on EKG * 3. Increased BMI * 4. Excessive snoring and some daytime sleepiness * 5. Blood pressure was initially elevated, repeat blood pressure was at target. * 6. Cannot exclude biatrial enlargement on EKG * 7. No recent laboratory data to review. * Recommendations: * 1. Echocardiogram, 48-hour Holter monitor, stress Myoview in the near future. * 2. Magnesium oxide 400 mg p.o. twice daily may reduce to 1 tablet daily if diarrhea occurs * 3. Basic metabolic profile fasting liver lipid profile CBC free T4 TSH magnesium level in the near future * 4. Heart healthy lifestyle and weight management were discussed, can continue further discussion atnext visit. * 5. Follow-up after testing sooner if interval problems arise * 6. Rationale for testing and the possible reason for her palpitations was talked about. * I thank you Dr. Gilman allowing me to participate in patient's care, please not hesitate to callif further questions arise, * Sincerely, * Samara Roe MD [facility] Work Phone: History of Present illness Narrative* Patient is new to provider. * Primary MD: Kalina * Patient is being seen in cardiology consultation at the request of Dr. Gilman guarding palpitations and ventricular premature beats. * Patient reports that she has had palpitations all her life. She describes it as a sensation that she cannot catch her breath. Sometimes she feels her heart beating in her throat. No chest pressure tightness heaviness lightheadedness presyncope or syncope. * Averages 3 to 4 cups of coffee a day. * No prior coronary artery disease history. No history of valvular heart disease. * Has anaphylactic reaction to shellfish. * Perimenopausal, last. August 2020. * BMI is excessive. * In April 2020 when she had carpal tunnel surgery on her right hand. At that time her EKG was noted to have some abnormalities, extra beats. * EKG today shows normal sinus rhythm with normal intervals, and 104 ventricular premature beats. * Patient status post cholecystectomy * Never smoker * No prior cardiac work-up. * Medications and allergies reviewed. BMI is 35.94. * On her EKG, her P waves are a little prominent. Cannot exclude biatrial enlargement. * Patient does have a history of excessive snoring and some daytime somnolence, but does not believe that she has obstructive sleep apnea, and is not particularly interested in pursuing a sleep study. * I do not see any reason laboratory data for review. * Assessment: * 1. Palpitations * 2. Ventricular premature beats on EKG * 3. Increased BMI * 4. Excessive snoring and some daytime sleepiness * 5. Blood pressure was initially elevated, repeat blood pressure was at target. * 6. Cannot exclude biatrial enlargement on EKG * 7. No recent laboratory data to review. * Recommendations: * 1. Echocardiogram, 48-hour Holter monitor, stress Myoview in the near future. * 2. Magnesium oxide 400 mg p.o. twice daily may reduce to 1 tablet daily if diarrhea occurs * 3. Basic metabolic profile fasting liver lipid profile CBC free T4 TSH magnesium level in the near future * 4. Heart healthy lifestyle and weight management were discussed, can continue further discussion atnext visit. * 5. Follow-up after testing sooner if interval problems arise * 6. Rationale for testing and the possible reason for her palpitations was talked about. * I thank you Dr. Gilman allowing me to participate in patient's care, please not hesitate to callif further questions arise, * Sincerely, * Samraa Roe MD [facility] Work Phone: History of Present illness NarrativeChief complaint includes HPI.-[facility] Work Phone: History of Present illness Narrative* 51-year-old female referred by Dr. Delgado for evaluation of palpitations and dizziness. * Looking at her records she used to followed by Dr. Roe in the past for the same diagnosis. Initially her palpitations were related mostly with PVCs and PACs. She was placed on beta-claudia therapy.She underwent a stress test, echocardiogram and also EKGs. At the beginning of 2022, she had an episode of severe chest discomfort associated with palpitations and she had that in the hospital. An echocardiogram shows normal left ventricular function. A Holter monitor was ordered that showed episodes of PVCs with a burden of premature ventricular contractions approximately 14.8% of the total beats. No evidence of ventricular tachycardia. * Patient states that lately she has been noticing dizziness that. For the last 2 weeks. She has had iWatch and is recording her rhythm strips. I have personally reviewed rhythm strips on her phone that shows sinus rhythm with PACs with significant drop of the heart rate into 40 bpm. Patient has been noticing near syncopal episodes. * Current EKG shows sinus rhythm at a rate of 60 bpm. QRS duration 90 ms. QT corrected 402 ms. Rhythmstrip shows the same pattern. * Her cardiac that includes a cardiac catheterization July 2022 that showed no significant coronary artery disease. His stress test in June 2021 shows no exercise-induced chest discomfort no significant ST changes at 89% of maximal heart rate predicted. PACs with aberrant conduction at rest and in recovery. Normal EKG normal stress test. Echocardiogram in June 2021 shows normal left ventricular function of 65% with no evidence of ventricular hypertrophy no significant valvular abnormalities. * Vital signs are stable * Patient is alert oriented x3 * Head normocephalic * HEENT normal * Neck no nodules. JVD negative * Lungs clear to auscultation and percussion * Cardiovascular regular rate and rhythm. No murmurs or gallops. * Abdomen soft, bowel sounds present. No tenderness organomegaly * Extremities no edema in the lower extremities * Patient is alert oriented x3 no motor or sensory deficit * Skin no cyanosis no pallor * Clinical impression * 1. Dizziness * 2. Significant bradycardia * 3. Palpitations * 4. PVCs/PACs recorded on Holter monitors and EKGs in the past * 5. Normal left ventricular function per echogram described above * 6. No significant coronary artery disease per cardiac catheterization in 2022 * 7. History of COVID 19 infection * Plan recommendations * I had a lengthy discussion with patient and family member regarding findings of symptomatic bradycardia on iWatch for the last 2 weeks, she has been complaining of dizziness. She also has a history of PVCs/PACs on Holter monitors for which she also has been symptomatic and beta-claudia has been used. Initially we were planning to offer her antiarrhythmic therapy to control PACs and PVCs but afterfindings of iWatch with significant bradycardia with heart rates slightly into the 40s associated with dizziness a pacemaker will be recommended. Procedure, risk, benefits and possible complications d iscussed with patient. All questions answered. * Patient agrees with plan. * Once pacemaker is implanted, we can maximize AV node blocking agents or we can offer her flecainidefor control of PVCs. * Follow my office 7 days postprocedure for wound assessment. * So far no evidence of atrial fibrillation. No need for anticoagulation therapy. * Risk factor modifications and lifestyle modifications discussed with patient. Diet , exercise and hydration discussed during this office visit, as well as avoid alcohol, smoking and excessive caffeine use. * Prescriptions were refilled during this office visit * I have personally review with patient during this office visit, laboratory data, echocardiogram results, stress test results, Holter event monitor results prior and after the last electrophysiology visit. All questions has been answered. * Please excuse any errors in grammar or translation related to this dictation. Voice recognition software was utilized to prepare this document. [facility] [address] DO Work Phone: History of Present illness Narrative* 51-year-old female referred by Dr. Delgado for evaluation of palpitations and dizziness. * Looking at her records she used to followed by Dr. Roe in the past for the same diagnosis. Initially her palpitations were related mostly with PVCs and PACs. She was placed on beta-claudia therapy.She underwent a stress test, echocardiogram and also EKGs. At the beginning of 2022, she had an episode of severe chest discomfort associated with palpitations and she had that in the hospital. An echocardiogram shows normal left ventricular function. A Holter monitor was ordered that showed episodes of PVCs with a burden of premature ventricular contractions approximately 14.8% of the total beats. No evidence of ventricular tachycardia. * Patient states that lately she has been noticing dizziness that.. She has had iWatch and is recording her rhythm strips. I have personally reviewed rhythm strips on her phone that shows sinus rhythm with PACs with significant drop of the heart rate into 40 bpm. Patient has been noticing near syncopal episodes. * Her cardiac that includes a cardiac catheterization July 2022 that showed no significant coronary artery disease. His stress test in June 2021 shows no exercise-induced chest discomfort no significant ST changes at 89% of maximal heart rate predicted. PACs with aberrant conduction at rest and in recovery. Normal EKG normal stress test. Echocardiogram in June 2021 shows normal left ventricular function of 65% with no evidence of ventricular hypertrophy no significant valvular abnormalities. * Patient presented to emergency department few days later complaining of palpitations. In the emergency department patient did not have any significant bradycardia but she had frequent PVCs. Flecainide was started. She start flecainide 50 mg 1 tablet twice a day and the dose was increased to 75 mg 1 tablet twice a day. Initially during this evaluation patient states that she was doing well but later after talking with patient states that she continues having palpitations on and off. Someof them are a little bit stronger makes her think to come to emergency department for an evaluation. * EKG performed today shows sinus rhythm rate of 61 bpm. QRS ration 90 ms. QT corrected 406 ms. Rhythm strip shows the same pattern. * Clinical impression * 1. Dizziness * 2. Significant bradycardia * 3. Palpitations * 4. PVCs/PACs recorded on Holter monitors and EKGs in the past. High risk medication (flecainide). * 5. Normal left ventricular function per echogram described above * 6. No significant coronary artery disease per cardiac catheterization in 2022 * 7. History of COVID 19 infection * Plan recommendations * I had a long discussion with patient and family member regarding plan to follow for management of PVCs. We will increase the dose of flecainide to 100 mg twice a day. * Patient will get an EKG in the next 48 hours daily for increased dose of high risk medication. * Cardiac MRI for evaluation of evidence of eschar or fibrous tissue. * Follow my office in 4 to 6 weeks or sooner if needed. * We discussed also the option of electrophysiology and ablation therapy. We will try medications first to see if we can control her symptoms. * Risk factor modifications and lifestyle modifications discussed with patient. Diet , exercise and hydration discussed during this office visit, as well as avoid alcohol, smoking and excessive caffeine use. * Prescriptions were refilled during this office visit * I have personally review with patient during this office visit, laboratory data, echocardiogram results, stress test results, Holter event monitor results prior and after the last electrophysiology visit. All questions has been answered. * Please excuse any errors in grammar or translation related to this dictation. Voice recognition software was utilized to prepare this document. -[facility] [address] DO Work Phone: Hospital course Narrative No data available for this section [facility] No data available for this section [facility] Name Dates Details Instructions not documented [facility] Work Phone: Instructions* Name Dates Details Instructions not documented -[facility] Work Phone: Instructions* Name Dates Details Instructions not documented [facility] Work Phone: Instructions* Name Dates Details Instructions not documented -[facility] Work Phone: Progress note No data available for this section [facility] Summary Purpose Family History Mother Name Dates Details Family history of lung cance r(V16.1, Z80.1) Status:Active Father Name Dates Details No pertinent family history( V49.89, Z78.9) Status:Active Mother Name Dates Details No pertinent family history( V49.89, Z78.9) Status:Active Father Name Dates Details No pertinent family history( V49.89, Z78.9) Status:Active Mother Name Dates Details Family history of lung cance r(V16.1, Z80.1) Status:Active Father Name Dates Details No pertinent family history( V49.89, Z78.9) Status:Active Mother Name Dates Details Family history of lung cance r(V16.1, Z80.1) Status:Active Family history of malignant neoplasm(V16.9, Z80.9) Status:Active Father Name Dates Details No pertinent family history( V49.89, Z78.9) Status:Active Mother Name Dates Details Family history of lung cance r(V16.1, Z80.1) Status:Active Family history of malignant neoplasm(V16.9, Z80.9) Status:Active Father Name Dates Details No pertinent family history( V49.89, Z78.9) Status:Active Mother Name Dates Details Family history of lung cance r(V16.1, Z80.1) Status:Active Family history of malignant neoplasm(V16.9, Z80.9) Status:Active Father Name Dates Details No pertinent family history( V49.89, Z78.9) Status:Active Mother Name Dates Details Family history of lung cance r(V16.1, Z80.1) Status:Active Family history of malignant neoplasm(V16.9, Z80.9) Status:Active Father Name Dates Details No pertinent family history( V49.89, Z78.9) Status:Active Unknown Family Member Name Dates Details No pertinent family history: Father(V49.89, Z78.9) Status:Active Family history of lung cance r: Mother(V16.1, Z80.1) Status:Active Family history of malignant neoplasm: Mother(V16.9, Z80.9) Status:Active Unknown Family Member Name Dates Details No pertinent family history: Father(V49.89, Z78.9) Status:Active Family history of lung cance r: Mother(V16.1, Z80.1) Status:Active Family history of malignant neoplasm: Mother(V16.9, Z80.9) Status:Active Unknown Family Member Name Dates Details No pertinent family history: Father(V49.89, Z78.9) Status:Active Family history of lung cance r: Mother(V16.1, Z80.1) Status:Active Family history of malignant neoplasm: Mother(V16.9, Z80.9) Status:Active Unknown Family Member Name Dates Details No pertinent family history: Father(V49.89, Z78.9) Status:Active Family history of lung cance r: Mother(V16.1, Z80.1) Status:Active Family history of malignant neoplasm: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
== END 2023-06-06 10:39 | disposition home or self-care (01) ==
LOC: RAD 10:38
PROVIDERS: Visit Provider Podiatrist Foot & Ankle Surgery
DX: M19.171 Post-traumatic osteoarthritis, right ankle and foot (principal)
CPT/HCPCS: 73630

== ENCOUNTER 2023-06-19 10:24 | Outpatient (OUT) | payer OTHER, SELFPAY ==
--- NOTE | 2023-06-19 | XR_ITS ---
The [address] [address] Patient Name: NAN HANNA MRN: [id number] date: 1970 Sex: F Assigned Patient Location: [facility] Current Patient Location: RAD Accession/Order Number: [id number] Exam Date: 06/19/2023 10:45 Report Date: 06/19/2023 11:30 At the request of: DIGNA BARBER Procedure: XR foot RT min 3V PROCEDURE: XR foot RT min 3V COMPARISON: 06/06/2023 HISTORY: POST OP IMAGING FINDINGS: BONES:Stable posterior calcaneal osteotomy and subtalar fusion with 3 cannulated screws. Stable transverse osteotomy and internal fixation using a dorsal staple base of the first metatarsal. No acute fracture or dislocation. SOFT TISSUES:Moderate diffuse soft tissue swelling EFFUSION:None visible. OTHER: Negative. XR/XR foot RT min 3V IMPRESSION: Stable postsurgical changes with no mechanical failure Electronically authenticated by: MARKO BOWDEN Date: 06/19/2023 11:30
== END 2023-06-19 10:25 | disposition home or self-care (01) ==
LOC: RAD 10:25
PROVIDERS: Visit Provider Physician Assistant
DX: S92.061S Displaced intraarticular fracture of right calcaneus, sequela (principal)
CPT/HCPCS: 73630

== ENCOUNTER 2023-07-10 09:45 | Outpatient (OUT) | payer OTHER, SELFPAY ==
--- NOTE | 2023-07-10 | XR_ITS ---
The [address] [address] Patient Name: NAN HANNA MRN: [id number] date: 1970 Sex: F Assigned Patient Location: [facility] Current Patient Location: [facility] Accession/Order Number: [id number] Exam Date: 07/10/2023 09:52 Report Date: 07/10/2023 10:21 At the request of: CYNDI CHEW Procedure: XR foot RT min 3V PROCEDURE: XR foot RT min 3V COMPARISON: 06/19/2023 HISTORY: RIGHT FOOT PAIN FINDINGS: BONES:Again demonstrated is osteotomy of the mid calcaneal body with subtalar fusion utilizing 3 cannulated screws. Transverse osteotomy and staple placement along the base of the first metatarsal. No new fracture or dislocation. Development of permeative pattern of the bones suggesting osteopenia. Lucency of the distal tibia likely from bone graft harvesting SOFT TISSUES:Negative. No visible soft tissue swelling. EFFUSION:None visible. OTHER: Negative. XR/XR foot RT min 3V IMPRESSION: Stable postsurgical changes Interval development of osteopenia Electronically authenticated by: MARKO BOWDEN Date: 07/10/2023 10:21
--- OUTSIDE RECORDS SUMMARY | 2023-07-10 09:59 | XMS_ITS | CCD ---
Author Name Unknown Address [address] [place] [address] Organization [facility] Care Team Providers Care [employer] Professor Name Role Phone Salima Gilman Unavailable Unavailable Kalina Salima A Unavailable UnavailChristian Kessler Unavailable Unavailable Mariposa Gilmannifer A Unavailable UnavailPriscilla Rose Unavailable Unavailable Maday Schmitz Unavailable Unavailable Saliam Gilman Unavailable Unava ilable Celi Barrett Unavailable Unavailable Priscilla Leahy Unavailable Unavailable Simone Coulter DO Unavailable Unavailable Rell WALL Luna Unavailable Unavailable Salima Gilman MD Unavailable Unavailab andree Schmitz LIFE ENRICHMENT SPECIALIST-RECORDIST Maday Unavailable Unavaila ble Salima Gilman Unavailable UnavailCeli Kang Unavailable Unavailable Priscilla Leahy Unavailable Unavailable Celi Barrett Unavailable Unavailable Pricsilla Leahy Unavailable Unavailable Kalina Salima A Unavailable Unavailable Unavailable SAMARA ROE Referring Unavailable GERRY SALMERON Primary Care Unavailable KALINA SALIMA A Primary Care Physician Kayla Dent Primary Care Physician CAMPBELL HERNANDEZ Consulting Unavailable KAYLA DENT Primary Care Unavailable CINTHIA ., MAGDA Admitting Unavailable CINTHIA ., MAGDA Attending Unavailable MARKO GARY Consulting Unavailable BONY SOLARES Consulting Unavailable CINTHIA ., MAGDA Consulting Unavailable Kayla Dent Unavailable Unavailable Unavailable Unavailable Kayla Dent Unavailable Wing, Federico Unavailable Skip Kelly Unavailable Unavailable Wing, Federico Referring Unavailable Mecca, Federico Attending Unavailable Jailene, Dr. Kayla Hassan Primary Care Unavailab andree Gilman, Dr. Salima Myles [facility] Winn Attending Unavailable Kalina, Dr. Salima Myles Primary Care U [facility] [place], MsFaby Winn Attending Unavailable Jailene, Dr. Kayla Hassan Primary Care Unavailab le Mecca, Federico Attending Unavailable Skip Kelly Attending Unavailable Skip Kelly Admitting Unavailable Jailene, Dr. Kayla Hassan Referring Unavailab andree Dent, Dr. Kayla Hassan Primary Care Unavailab andree WING, MD FEDERICO MANSFIELD Referring Unavailprecious e MECCA, MD FEDERICO MANSFIELD Attending Unavailprecious Dent, Dr. Kayla Hassan Primary Care Unavailab andree Dent, Dr. Kayla Hassan Primary Care Unavailab andree Dent, Dr. Kayla Hassan Primary Care Unavailab andree Dent, Dr. Kayla Hassan Primary Care Unavailab andree HINSON, RECORDIST JOSELO CELSO Attending Unavailable SINCERE, RECORDIST JOSELO CELSO Referring Unavailable Carols, Dr. Skip Smith Referring U hawa Gilman, Dr. Salima Myles Primary Care U judahable MD FEDERICO WING Attending UnavailMD FEDERICO James Referring Unavailprecious Dent, Dr. Kayla Hassan Primary Care UnavailMD FEDERICO Braxton Attending UnavailMD FEDERICO James Referring Unavailprecious Dent, Dr. Kayla Hassan Primary Care UnavailMD FEDERICO Braxton Attending UnavailMD FEDERICO James Referring Unavailabl e MECCA, MD FEDERICO MANSFIELD Attending Unavailprecious Dent, Dr. Kayla Hassan Primary Care UnavailKayla Kate DO Primary Care Provider [phone] Kayla Dent DO Primary Care Provider EVIE AGUDELO Attending Unavailable JAILENE, KAYLA HASSAN Primary Care Unavailable Mecca, Federico Admitting Unavailable Federico Wing Attending Unavailable Wing, Federico Referring Unavailable Skip Gonzalez Admitting Unavaila Skip Oconnor. Attending Unavaila Skip Oconnor. Referring Unavaila CYNDI Dunn Admitting Unavailable CYNDI CHEW Attending Unavailable CYNDI CHEW Referring Unavailable Kayla Dent Admitting Unavailable Kayla Dent Attending Unavailable Kayla Dent Referring Unavailable Vincent Pan Attending Unavailable CYNDI CHEW Attending Unavailable CYNDI CHEW Referring Unavailable Luna DICKINSON Attending Unavailable NONE, XXXX Referring Unavailable Skip Gonzalez. Admitting Unavaila Skip Oconnor. Attending Unavaila Kayla Lai Referring Unavailable Wing, Federico Admitting Unavailable Wing, Federico Attending Unavailable Wing, Federico Referring Unavailable JOSELO HINSON Referring Unavaila KAYLA Lai Primary Care Unavailable Kayla Dent DO Primary Care Provider Unav ailable Allergies Allergy Classification Reported Allergen(s) Allergy Type Date of Onset Reaction(s) Facility Fish (7 sources) shellfish, unspecified Food Allergy Hives, Angioedema [facility] Work Phone: (20 sources) shellfish, unspecified; Translations: [shellfish] food allergy Hives, Angioedema [facility] Repository (1 source) Shellfish Drug allergy (disorder) 3 [facility] Repository (8 sources) Shellfish; Translations: [shellfish] Drug allergy 3 Weal (disorder), Angioedema, Hives [facility] (1 source) Shellfish Facial Swelling, Hives [facility] (2 sources) SHELLFISH CONTAINING PRODUCTS; Translations: [SHELLFISH CONTAINING PRODUCTS] Propensity to adverse reactions to food (disorder) 3 [facility] 3 Repository Medications Current Medications Medication Drug Class(es) Dates Sig (Normalized) Sig (Original) aspirin 81 mg delayed release oral tablet (19 sources) Platelet Aggregation Inhibitor, Nonsteroidal Anti-inflammatory Drug Start: 07-12-2022 take 1 tablet by mouth once daily aspirin 81 mg Oral EC Tab 81 mg = 1 tab(s), Oral, Daily, # 30 tab(s), Refills(s) 3, Pharmacy: [id number], 152, cm, 09/23/22 22:25:00 EDT, Height/Length Dosing, 86.5, kg, 09/23/22 [...] Daily, # 30 tab(s), Refills(s) 3, Pharmacy: [id number], 152, cm, 07/12/22 15:54:00 [...] Allowed take 1 tablet by mouth once ocrky y Multiple Vitamins oral tablet ; 1 tab(s) orally once a day Quantity: 0 Refills: 0 Ordered: 22-Aug-2022 Olga Reyes Generic Substitution Allowed multivitamin tablet [...] 0 09/20/2022 04/16/2023 Discontinued (Med List Cleanup) [id number] 0.3 ml EPINEPHrine 1 mg/ml auto-injector (20 [...] Start: 08-27-2017 take 1 capsule by mo uth every twenty-four hours Tolterodine Tartrate ER 4 MG Oral Capsule Extended Release 24 Hour Quantity: 30 Refills: 0 Start : 27-Aug-2017 Active Vitamin B Complex Oral Tablet (20 sources) take 1 tablet by sydni th once daily Vitamin B Complex Oral Tablet [...] sources) Taking high risk medication; Translations: [Other fci (current) drug therapy] Onset: 04-13-2023 04-16-2023 Episodic Other aftercare (2 sources) Other intermission coordinator (current) drug therapy; Translations: [Other intermission coordinator (current) drug therapy] Onset: 04-13-2023 Episodic Other [...] Translations: [Other acute postoperative pain] Onset: 04-10-2023 04-10-2023 Episodic Other nutritional; endocrine; and metabolic disorders [...] Onset: 04-10-2023 04-10-2023 Episodic Comment on above: bryan 07/2019-neg atve; Other upper respiratory disease (20 [...] source) [facility] 3/9 08-24-2022 Comment on above: [facility] 3/9 Unclassified (2 sources) AND-[facility] 08-25-2022 Comment on [...] of Mammogram normal] Comment on above: 05/2020-cat 112/04/08 019-CAT 1; Unclassified (20 sources) Never smoked [...] Results Test Name Value Interpretation Reference Range Facility PT - [place] 04-27-2023 PT - Orders [id number]#1.00TIFF Normal [facility] Consent for Treatmenton Consent for Treatment [id number]#1.00TIFF Normal [facility] PT - Assessmentson PT - Assessments [id number]#1.00TIFF Normal [facility] PT - Consentson 04-26-2023 PT - Consents [id number]#1.00TIFF Normal [facility] PT - [place] 04-26-2023 PT - Orders [id number]#1.00TIFF [facility] Holter monitor studyon 04-18 This is an [...] transmissions. Clinical correlation needs to be made [facility] Holter monitor studyOrdered By: Federico Wing on 04-18-2023 [facility] Work Phone: Consent for Treatmenton 03-18 Consent for Treatment [id number]#1.00TIFF Normal [facility] MRI Ankle w/o Contrast Right on 03-30-2023 [...] BENITA Technologist: JENNI Technical Comments None Normal [facility] RAD - MRI Screening Formon 1 RAD - MRI Screening Form [id number]#1.00TIFF Normal [facility] Physician Orderon 03-21-2023 Physician Order [id number]#1.00CD:127 Normal [facility] Outside Cardiovascularon Outside Cardiovascular [id number]#1.00CD:127 Normal [facility] Outside Cardiovascular [id number]#1.00CD:127 Normal [facility] Outside HPon 11-03-2022 Outside HP [id number]#1.00CD:127 Normal [facility] Outside Progress Noteon 10-16 Outside Progress Note [id number]#1.00CD:127 Normal [facility] Outside Radiologyon 11-04-19 Outside Radiology [id number]#1.00CD:127 Normal [facility] MRI Cardiac w/wo contrast fo r Morph/Funct and Valve Dzon 10-10-2022 MRI Cardiac w/wo contrast for Morph/Funct and Valve Dz Normal [facility] [place] Work Phone: MRI CARDIAC RESONANCE MENG GING FOR VELOCITY FLOW MAPPINGon 10-10-2022 MRI CARDIAC RESONANCE IMAGING FOR VELOCITY FLOW MAPPING [facility] CMR Report Name: RASHEEDA HANNA : 1970 Scan Date: 2022-10-10 13:15:00 Electronically signed by NAILA LEACH 15:48:14 GENERAL INFORMATION HEIGHT: 60.00 in (152.40 cm) WEIGHT: 186.00 lbs (84.37 kgs) BSA: 1.81 m^2 BASELINE HR: 0 BPM SCAN LOCATION: [facility] REFERRING PHYSICIAN: FEDERICO WING ATTENDING PHYSICIAN: FEDERICO WING TECHNOLOGIST: GENARO DELONG ACCESSION NUMBER: [id number] CPT CODES: 13168, [ , ]12223 ICD10 CODES: R00.2, [ , ]I49.3 SUMMARY [...] normal. CORE EXAM MEASUREMENTS VOLUMETRIC ANALYSIS . --. . . . LV . Reference . RV . Reference . +------+ +------+- +------+--------- --+ . EDV . ml . 123 . [...] (59-77) . 61 . (55-79) . '------+ +------+- +------+--------- --' CARDIAC OUTPUT HR: 57 BPM LV DIMENSIONS [...] . Stress Perfusion . Interpretation . + +----- ---------+ -+ ----+ + . Base Anterior . Normal/Hyper [...] . Normal (more content not included)... Normal [facility] MRI CARDIAC W/WO CONTRAST FOR MORPH/FUNCT AND VALVE [facility] 10-10-2022 MRI CARDIAC W/WO CONTRAST FOR MORPH/FUNCT AND VALVE [facility] CMR Report Name: RASHEEDA HANNA : 1970 Scan Date: 2022-10-10 13:15:00 Electronically signed by NAILA LEACH 15:48:14 GENERAL INFORMATION HEIGHT: 60.00 in (152.40 cm) WEIGHT: 186.00 lbs (84.37 kgs) BSA: 1.81 m^2 BASELINE HR: 0 BPM SCAN LOCATION: [facility] REFERRING PHYSICIAN: FEDERICO WING ATTENDING PHYSICIAN: FEDERICO WING TECHNOLOGIST: GENARO DELONG ACCESSION NUMBER: [id number] CPT CODES: 79035, [ , ]52985 ICD10 CODES: R00.2, [ , ]I49.3 SUMMARY [...] normal. CORE EXAM MEASUREMENTS VOLUMETRIC ANALYSIS . --. . . . LV . Reference . RV . Reference . +------+ +------+- +------+--------- --+ . EDV . ml . 123 . [...] (59-77) . 61 . (55-79) . '------+ +------+- +------+--------- --' CARDIAC OUTPUT HR: 57 BPM LV DIMENSIONS [...] . Stress Perfusion . Interpretation . + +----- ---------+ -+ ----+ + . Base Anterior . Normal/Hyper [...] not included)... Normal [facility] Coding Summary.on 09-30-2022 Coding Summary. CD:[id number] Ww+PGhl YWQ+VD1PSPJlV18sdLFogJ8yO3K MTElOSywgQVBQTElOSyIgbmFtZT 1kaXNjZXJu IC8+CN1wQLOxMfbqdHVks8A2gXA 3W92moq2fSPgjzKH4RWVhRxBnhc vmp5aulFy5VWoaIehaGaPe XVZxwL61IHA8hU93Sv61xHUfhON jt7vuvSd6MhCoGPVjIEI4yGmgOQ rgu9NmUJBpU85juARno9Y2 IFAlvBvpaWMkLvCvgQS3hS7eYOl suvuom3oogbixHuc2ap48sEVie8 N5fNF3Y8VptnF4XQOtuHHt RjimrEMLhF1uryylx6gblbpjQuB tHMCcPAr3YUm8XLTtkIifGaOjLU 22ZXZ0CEOodwFeT5PqGLYu yJyjWcX7f4I8Gu1XW1HBDezmY9R NTUFSWTwvdGQ+WQ30xh46K1EmAl zeQqa8HQAzTDG7oAM4eP0j UMPmWLpci8X8zKX4U2WmdaPpqr3 on9klJWLgYPlmE65qlDCpb7X6LF PhhKM5OCAukIgbAbXoaC95 Oyc+VWObeMxzj1OlBobfz9kyw9q jjZx5VnrqVVZnmmXqrFtfSVC9b5 OuYb7jMGDntVW9uBT3zM2e PuIdPgC4WDbkP419CpQjnAIuWgf aI39wJ7ZxsNV+OHOkSqk7TCZihN byNB9zE9OxAYLvnatplQWc bIpxXV4rORNydwjrCHGzkC6yAMN wJ6y4MfSoToP0UMoaQ9TiNAQzdb woRa95rR2gJfAxOvY0JBpw E2SkjqC3JNGajFHvOHffTWF1B41 tp2U7OTAfLKIjXZU9mFF9lU2btT lnbjogbGVmdDsgdmVydGlj VDpeTNxtY390OJTteEfcJoZiYWa uZyBEYXRlOiAgMDQvMTUvMjAyMz wvdGQ+OUOcSIH2iMpqULRx kQHbRSieOq0ijGjbxCqxPQ0qJKX kigafUEAwaO7jBEFcuCJbaEhoSG 4vRIPaeloxp571PlAvQJH5 VMBueXOsJ4DixT2qYuGpNEZgZOA lQ0HwvWZvPIihO177IWowAeK7PM DwilRjZ3UbJKIqoFfkEeH5 z7Y2Kk8Kn9XohlykQ5OvhPHxTaP uFlpuEMk7E8OvGnimeMU+PC90YW YmON58OQu4QHM5cAyhAHyl JWUzA8TjhD3aHlTsQXVzDWZfXqo +PHRhYmxlIHdpZHRoPScxMDAlJy GpcYjxVB7aAa8lIMXkBTJb fHyzkJIdMtMpt1dsSIVdSHvkAY6 gjFnxD2RozTV4RFEze9s7Bw29N0 9rE9JzjEC+WKRjvQT7xRQ0 tH7aBjTsQaJ4AQfsY272BsLijEC iHuskm5rqv0jtrDp2FhP6DXJxif IgiEodLSZ7z7WfEc04R53n IHdpZHRoPSIxNSUiIHZhbGlnbj0 kiL5qDf1+FVXypBV0vEH8gS1dCc RzDhJ4PEtaA571OyEkeCZk Hhxvi6qek9haiRt9UePoKVDkodX xpLdzILU9o2OyCq89Y8FcjEatc3 QjSnx9cv70pLKtd4H2yOK5 N7HqIZCxwvmyyJVnuYtoWZ2rZAR weeixZNGzdO5jJBAeN2d6BeFqIs D2VPzhH5TymiZ0HNUbyKLd CXBdlYNKgE6bjridm6omqygdHbP lTGOqZBo3OYw6YWPnoMexOrArOL F6EkB4POD1nUIndC8ukKiz kepfnW1nFtl+SJZ5sOFnkCENSG5 lOjwvdGQ+PCVcINH9nOliHGcqQM ApbL2nWSAyY1q8JfLiDnT1 ZKifR1EdfrY0YKImjSIyFXYgySN YgD9blzeod9sgbbxqAfYnGMAdKR g1ASt7VYQzhFvfBoBvMQH5 JbT5ZTF1iWWwnQ6bgMahzhvqlC4 wOyc+LirwdDxwMGA4FIp8M6CjXy j3EKKjpQijEX9taVThYVyi Mf3ejObigFddGP2yWIXeunonj98 0BoPnh5yiARXkmYKxZZxaFQA2U9 7fq4E6XUVhEVQzLBA1lPJ0 pS1czKyliuxspLJssFdouuRirMu tHOazJTwxI347MUDjcXyhXaFvOW w5X0XgIep2TTXcnPmmFH4c eOLhFAmqHs6zmUfswNrdIG9qVJD wzcuav394HgTmq4jkIBNckTEvLY ddGAD5J30ax5Z4YMMaXDPu BLH5fNZ6fU3htVrmeddglGEhaEj domJvfRtoSIxoWMepE393AMDtzB twZdAflFy6J8DqKmd6QIFi vBscPN4kyMIxWFtiLv9mmOxgfTm pYB7tAUFtudibe937JlZhc1ebML FruZJoIWyuOEH3T51yi9C3 ISJlYGDmPUH1qBO0eW4wnXwqmfp gbGVmdDsgdmVydGljYWwtYWxpZ2 46IHRvcDsnPlBhdGllbnQg WWqtCUz0G6MlIinayKK+XS48MIX yMH32cKIjhMZex0cqoZq0LhTqIK LpEBF1jFjtAJbuk0WxTFZm A52rkNDql4K5PMMlxZuguQNrOkU hoRI3sG9tULyjfmjtx1hztvyhLw nfe7hpkc38vB11O50tPWiu YDAfDSUeHWAaKRNatYafgg1heI1 wIi8+NKFlmKM6nNJ5jZ7xIMXzSa O0EYikR292GpRrhDNvLrgt j2zru2ljxIv7UoC7FNFfpfTswOt tFJH5z9OnRd43Z17bEYvdHAVkGM LxFSDuDZXguTibek3ciP6t Ii8+BRXrxYC8hIQ1kI0cSoIeXgV 6UKrsM385PbNaoSLbLpymR83xG1 JvdXA+DZOcJyp5CSLmnSlz YX5snWEhBWrcYr3tBDB5HlUzBjY jMWpuE3WmVIYvldlagwvlyBJ0PZ TxBVInaJ00Hc5vwCxeRTOc cCGJrO8qwfonb1utllqvPaXrUBE bFHz7QSy0XSPzjBeeUkKxHBF5Uv U6EFV1jCFodD4kmOonyema dE4pM2NdEGOyeuduCp72mD9sImZ kZwJ2DTikUjx+TUFHWUFSLCBQQV CYSENBJQ21SW41iLNfn3B4 yXR3V7AjHAVcbilpajjgoSL1ALF rWGOqrS61yRUnVOmfSj6gz9A4b3 28MEMbCCZknM53Eh0rhGnt HULweQMLcG0fwdeyn6xgkgeyUgW cXJLvHKd3BKi0IEMxqKxgSvRwJG C5QzN8LXS9nNZwiE3nbQkt aujmaF4jSxu+LYUxKXpxQEd4BBr vdGQ+BKQnCLX7qRltDCunLZDvdF 1pZERtM0b8AsUcOpW4JFud Y4NwGVLinpibVv09wH1sCbBiTrD 0KKrnR7TtwlG7IUMouKTmXXlgAK P4D31vo8J2VQSrLNYuYTB6 dKI5qN5zkQmrldybgOJxeNgbmqK xyHssAHssRXglI055KFKdeNedLg YrUGwfYILdEB00RO10cUOc l1I5vOE2E8LrHQEysazljzvzuPE 6JBTbFKYwdY19pFRuWVmvOr1rp3 D7i004UHEyNKImxS88Xt6t yFvdZHFpzCSNdJ9uisdnf0ijtlc oAbFfUSEwVHu6DDm8RWOspOehMq AvFDG1RcR3ZNR9rHEzaL0p zLnjudopjR3yWpa+RmVtYWxlPC9 9SF55yOLcn2Q2oBF1R8LmZIAzhf xjltimxGY9ZBWqFNSfgW47 gLKiYGszBm6ql7L1g970WVPcJDN gtV19Ml3dnAbmCXLhjFPHwR2iqy bii5trffqcBcJxGHVxIGf5 PAl9DFLolGqaXyLhKKD8RdN3NAK 4uZVhpD4obHmmoriusX2hXkl+T3 P1zUI2vAEsfCindOQ+PC90 ey80R8QfLvajSzy7QFHwLQV2fRA 8eK1vTUVrNOsbk3Q0hZB6H4Fnth Zotc1oe5ltOPGxKHtsX82u tZHby3T3PWYqrLE7SRNolHiqFuJ hfA97Xwb+PHYipVjfd2JoVbvra6 bla4xumYn2AjZgKCPkwrEq qByjKOF9m1GeXy59U60bWTwjMKZ qTDUjWDDhSSLlhLtvim1xeV8qPb 8+EQBsnIP1qNE2nA1dUlDh HlG4YLkhP038TwVewMRyNyrci8x ye8rdvUg3GqPjYTYvkeJivBqpFL I2b4DsKk04H9DtbKulc9Vb Hve7wi61lJSkg3Z1wPC3L4CiFRQ tliixbCPrpNmxXK0qNPDuigiiDB LglD8aIEKrX4r7NpKiLzT1 FXcsD2XtpyH3BYOffQInNHTnqBO BwF0tnwksz9vdcjlwYjWqVIKaRJ d6RBm8TQHfsBbqFfSwQFN8 DhS5TVL2wWVuvY4trXvsxkkteQ0 wOyc+VMt8e5gwiRSlAM3esRN8DA 90JV17xUQrg2B9rHC9P1Po LXAtwocopmzfcOT3CFQcBSDoqK1 4Ju1itVwfJx0wCHWcPVL7HCExdK WlZ4DdvW7tIjJsIIHtGIJn Q3BbhNVnCGtzX344CHcyIvU8GBJ khjNoH4MdGPVkfMdwIxS5x9X1Np 0VNT29BM83EZ97mIKmd1I6 zOK7S1QxUZWqvvgipuywrYT6NVG mXNHniJ19Nq6ctFawYf6jEYYfRD F6ITOohTJiB6FvpI8gKjMd FUTfLFWlM0GlhTBjWBmoF810GHn eWoB9HHXrrxRfS9QjAZAjsGlzZh H0z4T3Xc6YBq35CA24DP25 vKVpr9O2dYX5C4YkKEDtdishwjb ryPX6PAVtOZWspE86Tr0bwVddRf 5sTDCvDZY5WNNuvVTlD8Op yW9yGxJrLYFvIAQfT9KtaMUuWSu xD413TCfkToJ5DDUrhcMvT5HkAI UzxDgoEuA2n4V1Nl9YUPjl zkq1F0NnIehzwYU+HT63SXKrAT3 9uMNbtRInf3vwyRm2CmElYDQgMM Z9lOmyFLwcy5RuQVVmD71h lBCsh3L7 (more content not included)... Normal [facility] Coding Summary.on 09-29-2022 Coding Summary. CD:[id number] Ww+PGhl YWQ+YM7RBVLyM46rsIXecU2lL6T MTElOSywgQVBQTElOSyIgbmFtZT 1kaXNjZXJu IC8+CT3gKKCkMmnbhBEte4P9pAT 8K66mzm3wHLlelLI6PYZnCnKwyw caq8nnkBr4YTmsOkauVcTh UPQwhU89UER1dD68Bz65wXThxLN jr6iamLp6EsWjFWVgOYB0rTrtVH aef7WuKOHcE19osJAur8V9 FRNypVhjlTEpHzAscQB0sU8bVTm uqcvak5mwgfhnDcl9xw44mJCev8 Y0wUC0R6FxvsD0IDFecKBo EyfeuRKHvP4maewjd3swfxskWgT jICUvEIl0SGd6NCFgtFicPdMxHT 97WZT0LPTsawMwV8CeADBo eStvFiS4d2O8Bo5FL9RQYyxmE0T NTUFSWTwvdGQ+UD45hd58K0PjBo rmXdq7AMWgAKH0vPK0iX2i XHAxXUxtg2O6uSG4X1DiqeKtjy2 wn5dgLIOhALckU29uqGTzj5A9IE ExyNW9LSIzpRulLxZzaV95 Oyc+SRWfrUgcz3ArZgudi6fci4j vcRo2SeseHZKrrnPcuWrgZRA9c0 FgNt2aDEIgdSP0dCI9bS6j AaAzEsU5UGqxT536CyCkfRLcHfm wL12iT0HstGL+AADtDzo7VFNxuL hzBE9vZ1JuIREyehfalBFw mKcwMM3sIERbidadVPQylH7cKZB sF0c6BgCgUnO0LCwwK3CwPHNjdw voXe82xX9qRfNfDlM8XNzd Q9VkciQ1RAMemYBkGFpvUSL6Z70 ow5A2KZNzBRPbICR0gQN9sK2hkZ lnbjogbGVmdDsgdmVydGlj WGppYSrwK186MBOyqVmnSpGfXAe uZyBEYXRlOiAgMDQvMTQvMjAyMz wvdGQ+ASYwCCP7qJeuTBSv xWFpFQxqYc5ulDbsdUrnVB3cPDQ jjurwJDAhkD4dHQLvrJVuhHrgFR 6zUYBifkaks674PgRvMZZ9 FIMrtBDfF3DqcE6aZzLlTGPxINF lD1FaoBXfSYybR605IQogFjR4EJ BlduFiK7TkJXLdpHmmZcS8 h5M1Wq9Sz3YpjvipN8RgcKAiDfS lYshpWIr6I6OiNvhkcBO+PC90YW JuTI21UZo9XGH3cHtpJBpk XKXlH6ZdyV3tCpZdJWHuHBVdFzb +PHRhYmxlIHdpZHRoPScxMDAlJy NwgIhoES7vGt0yDYAjBTYq fLljsAWpLwUiz4hwITJdKBttRS1 erIhvD5OekCI3SIDkz9d9Ip31Q3 6aQ3ExlEV+NLZspYC1hQU8 sI5uRxMuUuL8XItpL938DkOwvVV mGhyrr4lde7szkOk8FjW8ZOViab EblYkfBBX7f0YsAw66O24g IHdpZHRoPSIxNSUiIHZhbGlnbj0 beD3gBx0+WONixBD9zKD7gB1hRv CpFrP7JIhqU191UyVvwTUe Rnekx3kgw3bkmRv0PtCkZNVnkgZ gwRzaJRH9o8LyHo01Q0UvlZhnq6 SwMpr9zb26bSXff2A6kOJ5 Y0LeWLCehcbruWCffVfrAZ3vQZK pnycbXEOetM2rMZFuG0t6AtFxXw G5LLtuV4LnmwA7QYSmhHTp HALffKNJhF2gfgjhz2hgutfaQrS aRULfZDs2MJv8FIDdyVzbBfUgDA Y7YnR0RIB1mBRilR5gjNuk rkhjbP3iDsg+MQH6vCYmsAODWK3 lOjwvdGQ+HIFqRGM1nEkyBWsnPA AjdM6oXNSpT2k6RyJbSvG2 SCbdB1RylhJ4NTLgpDUoAAEttRS NkC4ejvfgm5ssqullOdEwGZBtON m6YLn7PAXzdCkfLxEkARP4 DbC2UPL4cPXcjV9zoYnphsopkT8 wOyc+GisukTzrIOG1YDp5R4WgCq k6XBAciOrdSA1fsYTwJMmj Bl5fqErwsCfmPP7aICOfckyhk08 0DzIgo6lwCITcuCMaEUxcCPR1Z3 1vy3B9NSTgOTZkYMN0vNH3 xF3jrKsilqkwnYWdjJlibrFdnLy yQRsoEVevE333TPJowZeaAcHmXF c7O2JiJpb4BBNbsXlzXY1x fDDdLVohDy4fgHutsOqoRN4jBGM wfqraj538KkVny4cfLRHboQIeBI sdTWP0U83mm5Z9OMDsQXMy TPN5tGC4uM7avWooszydeSSuwAv qqgPrrBucSZvlJDchA808TXSevD alOsLwbFc1V8SzFyt9GDKs lOexUT1kpEOsCXqrAg3ruNlguSd nUU1yCEGlywebp681EdBxj9veLU MzrBUbIGmlUKR6H37vz2K6 HIFkDPLuODO5gUU6oH7jnLgxxgl gbGVmdDsgdmVydGljYWwtYWxpZ2 46IHRvcDsnPlBhdGllbnQg SUhsPJn1G9VuWzpjrOO+ZO62OJA bMA96zJUixJXcq1cbhCb0AkFlCK GtIJM4dGyyBPbrc5SiBWVp K44aaZHoh2F8IOSvnMlyvFHfAwB gxRQ3xL2fXJimxdxhv1yfkinhSs llc6vupf93fQ71F80gRIoi ZLPlXMEsLMHqXLZenYcwlr5uvD2 wIi8+JVPncMZ1kBX3yN8lKUZvIg U3DFktX931SqQxiLXfNggw b7zhw0btwOa7KiG3UUKckeNtsNv rQRL4p0VeMz88F41zOVumBJZaVJ VgRDNyPOEdwAhntf9dnJ3z Ii8+BEZubBZ9vIL1jJ7pPsLuOxW 3UBujC803QfSpuOXqTmwzY94qL9 JvdXA+RHJeJpz8QNFpgGhx FX2woTMdTXrcTb1hTPB3ZoFcZxT lFNviK0LiBVLxewdtcaplaMB7RE WyRKTfxG61Jn4qmBztYEKm fGIKxG9kukkom0kjaqiwUgEmKND uPGq0EUm4HUCluNcsFeCwDQM8Kj S4EDU3xOUlvN7smPnsycuq uI4mM5OnNQLqwropJw97fM7sLtB pHkU6RUesExs+TUFHWUFSLCBQQV SFARMKBJ56US17xIOai9V9 cZA9Z5GgAGIygwbtowpewWU4LQK ePRSsoM48bDFnUFrfEp8kw9Z1u9 86MGLbRCTqsU31Si0miLrg IZJtyVCQtZ3nkdalq0vdbatmOdR vGDGeQOz4NIr0WLAjqAvdEsJaEI X5FrK3AAM6nDYooM3hvOfz aioddT0rPry+UZEfSXbhEKr4JYy vdGQ+GFXfSUQ6rXjbYFkrQCDewG 0wQXXlT5d2ArCeToD5TBcg N6ScHOAgxcpjNw35lL1lEdNvAhD 0IZhdY1EauiN2EPSngJWiQKchUF K3T93nj4E3GUIjEIFeCRA7 vRC5wP3uhVogltuewZNydKjcqbK kvXcmCCvzSBnjT975VLJvxIlkFr VmQMtjTQLhLP92TS60hQGo q3N9rAY9G1BwMQUiepvozclafQB 3ULPvDAEobC50jBXnBBbeXc7bf9 G1s810QHLaGSJjvH83Bi9z rQnvDUXftVPIcC3daxsnn9ghgrm vXhHvCFNwOUi2TVt1KTGzbQzkHy XyGUW2OpM3YQK7cAYvxW7z xZiksefckG5oUfs+RmVtYWxlPC9 7CZ44qRJwk0N0bDU0X8FyTCWwvi ogfuzcnTL4MUEpDWEibE71 tBWxYXbcEx7dv3Q6h103MQMgJUK vwS26Gs3faJqyTNRnaAZZnV3xje kos9zbagvvGiGtAMHmLAw4 MAq2BLYizHevNbLcLDV1VjU9YVA 8qPEjkX7phVqptvctoK6bAbw+T3 L6cUC8hTLwpIidtXG+PC90 at22S3UsPshiXrz4NODtBOL2aLT 8mJ5vTBImRWwra0I9xRX8R0Njvc Hrao4ge4zyWRAoQDhwV60n nIXsl4F5GHBvhME6UMBqeUtfCgY cgG22Cda+HKUyjFais0KmLsvdu3 nyp7jfdTq5MqRiQWWjfpRt tOmjPGL3n4BtHg47G78tLFwrGLS tHEXcCLFtCZZyjPpcui1yxP4mBi 8+IORarEP0cMS8dE2fMpUj RkL4CRelB237JtHwpJWvRpwps5y yu9atqYz7SeZhJZFjfkKkoSoyVS S4r0HjTg80C5QpnNusy7Ws Cgp0zo12kMVjk6X1gSP9O6EsXWA zpatzlQOjrWupKB4aRLUxzoveTT ZstM2tZBEuI7u5CsQbQzQ2 ICmhC1QzstQ5FYAmtGWzOXKfgNQ GdR3bivpgn4fpykxlFoQkZNQrPJ c9WRg3PIPvrOxgLsWgSDM9 MaV8PMW4mIEzuT0hiSnvgudaeM2 wOyc+CKh4p3arpNTmMK0vtGF4IK 68MI03uIChv4N8vQY4V1Oh BYNyewmnuqpjnUV2IKGzXVGgdT5 2Ct6kqOciKn6iTVNpABC6EBBxnS FgA4FlzF6vNkGyANMlOLAs H2ZurCFuAOqxJ381QJpqNeG4ZWN ryqKsJ3LlPOCvlSybIdG9o2Z8Ry 5VJN15PM41GZ98kUBeu3R0 cXC6W6KuZHCvuzopkamjhLJ9NZB yDWKscO55Aa1ioPytMl6nYHYbCR K9KZProIUxH6FpxS8cNjCo GNPlPITyV8IgoUWfAElnH770VZn xGoP0BLErylKmE2XeOTFphMtlFd A6t2Y2Rz8ZQf17MH00JF64 jAEes4T9sDP7V7KqHWXrvhmibcu lrLP2WKOaOYFjnA15Ar0zvQkdLb 9yACZvEOA2XVIdnUYcA7By eG6bUhChJMUxTWFgS5ArkMUnCFl zI975TUwrNyW7FQNajuSxK5XjEG FtuChpEhC3r7T0Su7BYUiy ukz0U7WaMzvawDW+SK40MEXjYW3 9wMPdjVLyx0aykDx2OqBhNPTfVZ H2rWdgBNqpj9QuBUDgP21a uLCpf8I8 (more content not included)... Normal [facility] Coding Summary.on 09-27-2022 Coding Summary. CD:[id number] Ww+PGhl YWQ+VF6HTCDlR44uyOQcrS0lJ2W MTElOSywgQVBQTElOSyIgbmFtZT 1kaXNjZXJu IC8+IE1uPHThFxpmvLDuy2G0pGS 9F28gad7oREcniPF4OEUjEfVqyt rwb4prfDr3LVpuVrokWyMp OCXjrT93VWC8dH77Bd95sUYxdAJ kw1lgtDq5IwVlPVCtPYR6gKfsJL tsu2MbFKQdO52seFZkx7V5 EWSjsXiphDCpWuKutWL7rH0fVJp zmvukr2hadwpqTxb6he99bTEsj2 H7pAH5Z4DpxyS1XIOxcQMn EpwpvAXLkK9svkwwl7qadsjjMuH tJGVvOEr8ZTo8FXGppHkaJfTqMY 01DTO1UAZxboEdO7IbNIQg jQhdXfK6r8N6Dj2YA9ZFUhbnF0S NTUFSWTwvdGQ+VR06nr71W7ToPz bxVzj5QEQwHXL9kCH4hB5v LIElMMgsd6P1aOO4A5FvnkJyya6 tn2joNLJcTZksD82pzWMlp8H1QZ KzzIP8CBEmzWjiGcBioX95 Oyc+LHDukKfnw3CgNcued8goi2u ndGf3BowbWBYdtkLivQmhQFK5f9 MwVc4dONPwpID0dXL3kH1k VuTqXxD7LFnfV740KjBbaJLnZgs aP38wM5LwfEF+DPZhGpa1BSLcjF rkQO8hN6BsJKHuwrewvZSf jWwmLF2wMFKcqaopJPKwrU3lPSQ aR2o1ViCpJlD2NEpnZ5WmQTYdgq zrHl91cQ9kYcGcLeI9LZwh E0PaspM7HGZsmGMcQGfvAFI1V10 xi7A9NAYeSXBrVVV4iDT3gM4biI lnbjogbGVmdDsgdmVydGlj ISyjRGtlH918MQKlvKafUbFnELr uZyBEYXRlOiAgMDQvMTIvMjAyMz wvdGQ+IAAkYLU4uDhpABBg bHAwCVavLx4mfCkqhJlgLY5tVZV zeqbbQOEkbG9wHWPvzGKucEwgGY 1tGJVnckrte946MlYmXGB7 MKJxiJEyR0AmjN4yPlZcZOWgNZL oR8MalWMkPIivS725TTeyKzU6SN FewkOaV2RzSIYyhYquHdU6 i2A5Tm7Pb0LwwavwS8MdvIKnPsG jPpytLZq3Y4FcMxvhyHH+PC90YW PnND95TGa9SMG6dNxvDRyb KCKfU5MtbM5mDpHsAXPfYSZiByj +PHRhYmxlIHdpZHRoPScxMDAlJy WyiMlcSC8nAl8mGVZbRZMf oEehqWQkJtFpy3ytNEIgOWcgEM8 uyPbzP6NnvTK5QAXwc5s3Zv20N6 0tL2TjbLB+OLLaqBU8yHY6 iJ0oTcMlVzN9YIjzE578XwKghEL zYurgc3dgb6qqeMo2OjV7AANulz ThhRygSJY1o7CcOz93C44k IHdpZHRoPSIxNSUiIHZhbGlnbj0 jwB7vFs8+VSBejLG7kHI6eT6fVg FwZqO0KIqkI590SxGhyIVj Uejxq9gwj8ibvPw7YrBkUGYtkpL jcPtuUMM9u6TnVl68H6ChpLbda6 PbGat1fb53yLGos1P3zCF7 M1JcXYBtlsulbBNdiMmuWR3nSDH cbdkyTVVkfY9hSKTpX3l5OhEmTc Y6THmaF7FfbkO3DSBgcINx RVXpbDVMgO4dkyoge9czjhioGoD jYAOqGGn4YIr0TKRwoSpnFuKkUY M9YsZ5CSQ7tEKrvW2sfNwr goqklD3gDan+MZA2rHShsKIOBN7 lOjwvdGQ+NTLjGCB6gVbzOZkyIK VcrG5iQTRrZ2r0CwHrYwG8 FDqeU0AzkoV8TPUkfJWpVRCjkAA IdT0rirlcw2eeinawYwNdIGWtPI o7TWm3ASCvaAxbCaPuCBO9 NxK8OEI0iWYowZ1opVfhsxgspQ5 wOyc+WdbagIraFFK8TFw6Z0PrFl i5HSUpgXhqUW7xbJTpDYre Jb4swEkgpSkjYZ2zSMUdabtqp57 8UyVcl0itFLPhlDPhWPfgDPK5U9 9qk8I5YSDqJHVsATS3nBS8 mG2nrBebydjpdHGpgAupvaTvnWr hVHqlSPyzH212RQUlqPwxUtPnFW z3N5CeSzs5EHBgbBzoTI1u zVXoJUtqSc1gdBpnlZsfYG3dJQG oukahz670HbHck0rrCFJpnPQkBX ncGNV5P79fd0K1CHBgZNTu DVE2mLZ8nD8byTcwmodnfWPjrBm inzFbjAyaVIxjJWfoS408XTBtjM fvHlVuhYc8E5LiSec3WJFc vVfeND6oxLFjMXroFb3yoUhccUq sAT3uDFQnvspus281RqGmw4ptLB UhxUMxWDpmWZQ4E99zo1S3 WYMgNXGmVNP1yIE2uK5dhWyjpvd gbGVmdDsgdmVydGljYWwtYWxpZ2 46IHRvcDsnPlBhdGllbnQg KKfiPBg2C9XbEfjnlLD+RE50IVK mFT64eCZvpNQnj1rjoRa9NiIfCP JoIIQ6qXkhNBpfx9BgQZTc K19hmARrp8T6IBUrkZawuGRqOxM xeQM6kG0kNAcuafzag6qhggvqXq rdi0nlgn82fF60A77eTNou RAZiAJObNDIsHONhsOuqxp9wsR6 wIi8+NCLbjBG9mCS8mI8nIBWbId I4SPqxD371KyZgoTPlYrjj n2mpw1vkzGh4NbX7LVWxysOxlBg rXVI0g3PkAn22B86qPNrwRTNlOM JbITXbXUAmeRjaal3yjN3q Ii8+VZTqmTD0vOQ1vX1oHfLsDgA 0BFjxB959JaYctANrNzqzN94kW6 JvdXA+UXQyOnc6ZZYbxRlp NP9hsYTbWJveXp3wEWQ5RyUjCtG rHGvwD1MzFCFlldrmcbwfbPY9EG AtENGlcC67Rg1txHoeHDOv wSZZuC9zeypsk4bajuumQuHlKCE uQPz5LKk0YOMuwTkqCxEvWFI3Zv C0LZE5hMCsdC1lyLhwydmb xY1sP6LvBKWfssudYk65lR9sOkH kDbE0UQxpBpo+TUFHWUFSLCBQQV EJTBJJFH24EQ39bMWyh0K5 hKU2P4ZoQEYkyphqsjglzEM3ZXV bWZQxpC42jOWqLHzkKi9za0V4n1 17DOFgXLIfeU29Xy7cjGsw CGGqeWUWrD3rgnxdi1gpulfmOiQ hEKGrRDb2CFk1LZOxgKxyPhRwUM E1DlA1COU6tZGevB5hbDcc uowwoY6lBhr+PYSbZYxkHGk8YPj vdGQ+IJOtPCM4hLmkJDfhOYRlbI 1vFODkQ3f7SeLzWnA5LZxx I3WwTLRmjwsbXk05fU8pVtQfWvY 5GLfnG9CguvQ3NXBamLBsIAweYH C0Y84ci1G8EHWoNOJfCBK5 jNO9sL9gmPjkkzannOPxoUolubQ drYdyKVxpQKflQ732GINymMkjVo ZkOVicKIIwWX77NG14jPVj y3T2kUZ8Z5NdNHVtqizfwliudGH 3LZUxQFLmqX15mUIdLIkeCz6tz2 O1t779QFFtLLHrxE85Pf7u eGqvPYPmlXSMyA7nwjyur0ixuuo fIcRjITRcUWw1DHe7CPOguScgRg ScMOO3UnF9PWL1aDOsaQ9q rYgelqgeeH5xYxi+RmVtYWxlPC9 9SE65wSJfd8X0fAR6A9UeKKJsrq sszdsspPU7RYZtKQUcjH85 rRVhCZucYb5iv7G1s797YOAuIJN thM38Vt3guOriZWWajCSRcN2cto xew6ouhoseGvBjKAGjFXu5 KMs6AHGceEfjQrNmINI2GbV7UUE 6tEPhqZ7rjQjpqykxdJ8iWbm+RW 4lnoomqmW8TZ02AL83T1Qw PjwvdGFibGU+PHRhYmxlIHdpZHR pNEwxOVHxHbNhzLnlEF9pSm2hUO QfOXCadRqsvEXbFhBui2zo NMAoBNniRF2gaGtyU5SqrPW2TRR or8x3Vr29J07rI4NlkAO+PGNvbC D5pVL2oG1hIkPfFtX1HIvs Y270VlTtoGAhFwgey0orq9bhyPt 3FfFcJSBhqdWdvSntRQJ1f2DeYv 25N09tRKhnAHHzNOIbAOMg SZLycHwnob7urV2lDb5+PGNvbCB 8qEW8bM4mVjHcFuU0YBqwO112If WznUAwEffzV41zY1QjhIK+ EFLhVtf0YLEldUaoYM4eoBOvKVi sGx8vTIH7AvXvMgUuUTeuW8HxZT ZnfzyxfjzfzBI1PKHbWREx cS05Ou7utLceBe4wRSAdDRZ1XXB qvUYpN9RefL4zTlDoAVGjNEMoZ7 HwmYYbKRvpF835TWkkHcK2 LZBudjBxV1PtEOPdkSesBpN4s8H 2Qx2OeGvicGVrPI5cCcEfTPh2J8 JkNmw3VOMxoYnaIR1mvOSz QBqqNo3stMjbwXrkDQ8gAARiplp ap503JnDlh2phSRIcdIAkFTfsNC R5G84vt5C1JZXaYDIlZQC9 nOZ9wI6pyBildmxxsCUmnTxbaeA xlEwePCzcQTsaN021JTGxhEszZw UURmy0J7MvAbv2ZFRkeUgq GK5agRUpEEleNx0ptWkffTilTZ2 wUWZmhocou604ElOys4sgSIOsyA KkNWivMYC7O21io7N3OGXx JBTwBYR6dUY4hO4ziOcdeszjvOR zpDxcwtEqjAliZHhwHIejY510MZ RqmQyiUv1BVss3B1ToTks2 ARGjhRinSH8agUTcNAjfVq8zkYy uoPqtKS2vQLQpcxfer544BtAoa0 nnILDihLJzBHqaKRZ5E52y a3O0OTJhUJEmGTX8vJL1wW5deJk nbjogbGVmdDsgdmVydGljYWwtYW lwC062MMMxgNdtMyGcwQPd OjwvdGQ+CO04dq60D2PvQrbyQwt 6SKMfTMG9hQZ6lN9sLUKyXRtkf8 I6jNW7Z2LswrOxfq5ny9rx YXBzZTog (more content not included)... Normal [facility] Auto Diffon 09-24-2022 Basophils/100 WBC (Bld) 0.6 % Normal 0.0-2.0 [facility] Comment on above: Order Comment: Order Added by Discern Expert. Performed By: #### 2 569041, 56031363, 8240141, 4080759, 79500724 ####[facility] [address] [place] [address] Basophils/Leukocytes Auto (Bld) [Pure # fraction] 0.1 E9/L Normal 0.0-0.2 [facility] Comment on above: Order Comment: Order Added by Discern Expert. Performed By: #### 2 784544, 14916902, 6237829, 8013348, 70907432 ####[address] [address] Eosinophils/100 WBC (Bld) 0.3 % Normal 0.0-8.0 [facility] Comment on above: Order Comment: Order Added by Discern Expert. Performed By: #### 2 177548, 22941328, 7963970, 2258030, 11562654 ####[address] [address] Eosinophils/Leukocyt es Auto (Bld) [Pure # fraction] 0.0 E9/L Normal 0.0-0.5 [facility] Comment on above: Order Comment: Order Added by Discern Expert. Performed By: #### 2 441319, 11762720, 5649211, 9535800, 73631569 ####[address] [address] Lymphocytes/100 WBC (Bld) 20.7 % Normal 14.0-50.0 [facility] Comment on above: Order Comment: Order Added by Discern Expert. Performed By: #### 2 007188, 59846256, 5998039, 8261425, 25227085 ####[address] [address] Lymphocytes/Leukocyt es Auto (Bld) [Pure # fraction] 3.0 E9/L Normal 1.0-4.0 [facility] Comment on above: Order Comment: Order Added by Discern Expert. Performed By: #### 2 856696, 45688048, 3390274, 5932914, 58219750 ####[address] [address] Monocytes/100 WBC (Bld) 9.1 % Normal 4.0-14.0 [facility] Comment on above: Order Comment: Order Added by Discern Expert. Performed By: #### 2 926135, 29662170, 9631383, 6500731, 60375429 ####[address] [place] [address] Monocytes/Leukocytes Auto (Bld) [Pure # fraction] 1.3 E9/L High 0.2-1.0 [facility] Comment on above: Order Comment: Order Added by Discern Expert. Performed By: #### 2 868682, 52051768, 4029423, 2044702, 73947813 ####[address] [address] Neutrophils/100 WBC (Bld) 69.3 % Normal 36.0-75.0 [facility] Comment on above: Order Comment: Order Added by Discern Expert. Performed By: #### 2 127036, 01019445, 2631982, 0590202, 11475917 ####[address] [address] Neutrophils/Leukocyt es Auto (Bld) [Pure # fraction] 10.0 E9/L High 2.0-7.5 [facility] Comment on above: Order Comment: Order Added by Discern Expert. Performed By: #### 2 300006, 73129604, 8760353, 9268803, 37678056 ####[address] [address] CBC w/ Auto Diffon 3 Erythrocyte distribution width (RBC) [Ratio] 13.3 % Normal 10.9-14.2 [facility] Comment on above: Performed By: #### 2 651429, 34182700, 6149452, 9559446, 17835527 ####[address] [address] Hematocrit (Bld) [Volume fraction] 40.2 % Normal 34.0-46.0 [facility] Comment on above: Performed By: #### 2 777509, 38437222, 2477072, 6741724, 15208783 ####[facility] [address] [place] [address] Hemoglobin (Bld) [Mass/Vol] 13.3 g/dL Normal 12.0-16.0 [facility] Comment on above: Performed By: #### 2 307718, 55531698, 0326777, 5563359, 16636567 ####[address] [address] MCH (RBC) [Entitic mass] 30.5 pg Normal 27.0-34.0 [facility] Comment on above: Performed By: #### 2 116413, 13383739, 5811993, 9293768, 76179695 ####[address] [address] MCHC (RBC) [Mass/Vol] 33.2 g/dL Normal 31.4-36.0 [facility] Comment on above: Performed By: #### 2 905344, 76917890, 4971742, 8943195, 33003595 ####[address] [address] MCV (RBC) [Entitic vol] 91.8 fL Normal 80.0-100.0 [facility] Comment on above: Performed By: #### 2 330047, 83983295, 8197171, 6124259, 86118819 ####[address] [address] Platelet mean volume (Bld) [Entitic vol] 8.7 fL Normal 6.4-10.8 [facility] Comment on above: Performed By: #### 2 827325, 72249054, 8914599, 5249312, 36349528 ####[address] [address] Platelets (Bld) [#/Vol] 291.0 E9/L Normal 150.0-500.0 [facility] Comment on above: Performed By: #### 2 172687, 51615072, 4307309, 9475760, 95815772 ####[facility] [address] [place] [address] RBC (Bld) [#/Vol] 4.4 E12/L Normal 4.3-5.9 [facility] Comment on above: Performed By: #### 2 453446, 94031963, 5797254, 1903224, 19614292 ####[address] [place] [address] WBC corrected for nucl RBC Auto (Bld) [#/Vol] 14.4 E9/L High 4.0-11.0 [facility] Comment on above: Performed By: #### 2 647585, 14705269, 7310051, 4341423, 93929626 ####[address] [address] CMPon 09-24-2022 Albumin [Mass/Vol] 3.8 g/dL Normal 3.3-5.0 [facility] Comment on above: Performed By: #### 2 049421, 65195753, 5298485, 2741537, 76978616 ####[address] [address] Albumin/Globulin (S) [Mass conc ratio] 1.1 Normal 1.1-2.2 [facility] Comment on above: Performed By: #### 2 082050, 01292566, 3120961, 7554024, 98662763 ####[address] [address] ALP [Catalytic activity/Vol] 91 Int._Unit/L Normal 21-98 [facility] Comment on above: Performed By: #### 2 474130, 80661396, 3301717, 7933740, 84775009 ####[address] [place] [address] ALT No additional P-5'-P [Catalytic activity/Vol] 34 Int._Unit/L Normal 6-46 [facility] Comment on above: Performed By: #### 2 078736, 03182294, 9230883, 6343643, 50777360 ####[facility] [address] [place] [address] AST [Catalytic activity/Vol] 20 Int._Unit/L Normal 5-43 [facility] Comment on above: Performed By: #### 2 301787, 78940680, 6844154, 3158651, 52808681 ####[facility] [address] [place] [address] Bilirubin [Mass/Vol] 0.4 mg/dL Normal 0.0-1.1 [facility] Comment on above: Performed By: #### 2 900280, 75881288, 4852834, 3320520, 34322157 ####[address] [address] Creatinine [Mass/Vol] 0.8 mg/dL Normal 0.5-1.3 [facility] Comment on above: Performed By: #### 2 516768, 98416261, 0853310, 7038185, 87412130 ####[facility] [address] [place] [address] Globulin (S) [Mass/Vol] 3.5 g/dL Normal 1.4-4.0 [facility] Comment on above: Performed By: #### 2 541393, 19646394, 1556317, 7249454, 08161000 ####[address] [place] [address] Protein [Mass/Vol] 7.3 g/dL Normal 6.0-7.8 [facility] Comment on above: Performed By: #### 2 859383, 74839032, 7240894, 9390740, 31306418 ####[facility] [address] [place] [address] Urea nitrogen [Mass/Vol] 24 mg/dL High 5-21 [facility] Comment on above: Performed By: #### 2 747214, 92271102, 1677944, 0717053, 83103264 ####[facility] [address] [place] [address] Urea nitrogen/Creatinine [Mass ratio] 30 No Units High 10-20 [facility] Comment on above: Performed By: #### 2 527028, 13992589, 8511406, 8923298, 52484334 ####[facility] [address] [place] [address] Anion gap [Moles/Vol] 10 mmol/L Normal 6-16 [facility] Comment on above: Performed By: #### 2 818183, 85169491, 2205660, 5944585, 10633839 ####[facility] [address] [place] [address] Calcium [Mass/Vol] 8.9 mg/dL Normal 8.9-11.1 [facility] Comment on above: Performed By: #### 2 027013, 41535967, 3391647, 1276720, 56206190 ####[facility] [address] [place] [address] Chloride [Moles/Vol] 103 mmol/L Normal 101-111 [facility] Comment on above: Performed By: #### 2 090745, 86182572, 1031777, 1876741, 78373103 ####[facility] [address] [place] [address] CO2 [Moles/Vol] 26 mmol/L Normal 21-31 [facility] Comment on above: Performed By: #### 2 066135, 22950210, 5183058, 0362638, 19730928 ####[facility] [address] [place] [address] Glucose [Mass/Vol] 137 mg/dL Normal 55-199 [facility] Comment on above: Result Comment: If t his glucose result represents a fasting glucose, interpretation should refer to the following reference range: 55-99 mg/dL Performed By: #### 2 869811, 99248430, 0504437, 6772688, 21191351 ####[facility] [address] [place] [address] Potassium [Moles/Vol] 4.0 mmol/L Normal 3.5-5.3 [facility] Comment on above: Performed By: #### 2 964025, 77403922, 8122097, 9534050, 89691978 ####[facility] [address] [place] [address] Sodium [Moles/Vol] 135 mmol/L Normal 135-145 [facility] Comment on above: Performed By: #### 2 512402, 25754459, 6977051, 5499761, 40191895 ####[facility] [address] [place] [address] Consent for Treatmenton Consent for Treatment [id number]:127 Normal [facility] Discharge Instructionson Discharge Instructions [id number]:127 Normal [facility] ED Clinical Summaryon 2022 ED Clinical Summary (Inserted Image. Sarah ble to display) [address] [address] ED Clinical Summary Person Information Name: RASHEEDA HANNA [place] Age: 51 Years : 1970 Sex: Female Language: Telugu PCP: Kayla Dent DO Marital Status: Visit [...] 09/24/2022 04:39:49 09/24/2022 04:39:49 09/24/2022 04:39:49 ADDRESS: [address] [place] [id number] PHYS DOC NOTES: MEDICAL INFORMATION: Prescriptions Given: [...] Adult Follow up: With: Address: When: Kayla Dent [address] [place] [address] Business (1) In 3 days 09/27/2022, only if needed DIAGNOSIS: 1:Accidental overdose [facility] ED Note-Nursingon 09-24-2022 ED Note-Nursing Called Poison Contro l and informed about patient's condition. Pt is clear for discharge per [employer] admissions representative. [facility] ED Note-Nursing 2152 Received call sissy De La Cruz from [employer] to give report on incoming patient. Pt took Flecainide 100 mg double dose an hour apart, at 2029 and 2129. Recommended to observe for 6 hours and monitor for bradycardia, T wave changes, QT prolongation, arrhythmias, or QRS widening. Pt has history of arrhythmias. Admit if symptomatic. Monitor electrolytes. Normal [facility] ED Note-Physicianon 09-25-19 ED Note-Physician Basic Information Time Seen: Vincent Pan MD 09/23/2022 22:58 Chief Complaint Sent by [employer] for taking an extra dose of Flecinid 100 mg tonight an hour apart. Headache started after taking. Palpatations started 10-15 minutes ago. Hx of SSS, PVC's and bigeminy History of Present Illness 51-year-old female sent here by [employer] after accidentally taking an extra dose of [...] breath. On August 23 [address] Mecca gas[facility] started her on flecainide. She was in [...] be discharged home to follow-up with her thread reeler. She will resume her normal medications Sunday. Assessment/Plan 1. Accidental overdose (T50.901A: Poisoning by unspecified drugs, medicaments and biological substances, accidental (unintentional), initial encounter) Orders: ECG 12 Lead Adult ECG 12 Lead Adult ECG 12 Lead Adult Disposition Plan Patient Discharge Condition Stable Discharge Disposition Home Discharge Prescription List Prescriptions No active prescription medications Follow-up With When Contact Information Kayla Dent In 3 days 09/27/2022 EDT, only if needed [address], [facility] [address] [place] [address]- Business (1) Additional Instructions: Patient Education Accidental Drug Poisoning, Adult Problem List/Past Medical History Ongoing No qualifying data Historical No qualifying data Procedure/Surgical History Catheterization of left heart (07/14/2022), Carpal tunnel, section, Cholecystectomy, Tubal ligation, Strong tooth. Medications Inpatient No active inpatient medications [...] 22:35:00) Lymph Auto: 20.7 % (09/23/22 22:35:00) Harvey Auto: 9.1 % (09/23/22 22:35:00) Eos Auto: 0.3 % (09/23/22 22:35:00) Basophil Auto: 0.6 % (09/23/22 22:35:00) Neutro Absolute: 10 E9/L High (09/23/22 22:35:00) Lymph Absolute: 3 E9/L (09/23/22 22:35:00) Harvey Absolute: 1.3 E9/L High (09/23/22 22:35:00) Eos Absolute: 0 E9/L (09/23/22 22:35:00) Basophil Absolute: 0.1 E9/L (09/23/22 22:35:00) Glucose Lvl: 137 mg/dL (09/23/22 22:35:00) BUN: 24 mg/dL High (09/23/22 22:35:00) Creatinine: 0.8 mg/dL (09/23/22 22:35:00) eGFR: >60 (09/23/22 22:35:00) eGFR AA: >60 (09/23/22 22:35:00) BUN/Cre (more content not included)... Normal [facility] Comment on above: Result Comment: Elec tronically Signed By: Maxim MCMAHON, Vincent\.br\Date and Time Signed: 09/24/22 04:15 EDT ED Patient Education Noteon 09-24-2022 ED Patient Education Note Pharmacology Accidental Drug Poisoning, Adult Accidental drug poisoning happens when a person accidentally takes too much of a substance, such as a prescription medicine, an nnzi-ypr-sxkmovt medicine, a vitamin, a supplement, or an [...] Heroin. ? Multivitamins that contain iron. ? Trtl-fby-evdqhnh cold and cough medicines. What increases the [...] these instructions at home: Medicines ? Take plvt-olc-ppwecql and prescription medicines only as told by your health care provider. ? Before taking a new medicine, ask your health care provider whether the medicine: ? May cause side effects. ? Might react with other medicines. ? Keep a list of all the medicines that you take, including nser-ujr-bwnhfez medicines, vitamins, supplements, and herbs. Bring this [...] your cell phone. The hotline of the [employer] is . ? Store all medicines in safety containers that are out of the reach of children. ? Read the drug inserts that come with your medicines. ? Create a system for taking your medicine, such as a pillbox, that will help you avoid taking too mu (more content not included)... Normal [facility] ED Patient Summaryon 023 ED Patient Summary (Inserted Image. Sarah ble to display) [address] [address] Patient Discharge Instructions Person Information Name: RASHEEDA HANNA Age: 51 Years Arrival Date: 09/23/2022 22:08:04 Discharge Diagnosis: 1:Accidental overdose Primary Care Physician: Kayla Dent DO Provider Information Primary Provider: Vincent Pan MD Advanced Bending Machine Operator:None The exam and treatment you received in the Emergency Department were for an urgent problem and are not intended as complete care. It is important that you follow up with a doctor, nurse practitioner, or physician?s clinic office assistant for ongoing care. If your symptoms become worse or you do not improve as expected and you are unable to reach your usual health care provider, you should return to the Emergency Department. We are available 24 hours a day. JOHANNA GUTIERREZA Varghese has been given the following list of patient education materials, prescriptions and follow-up instructions: Follow-up Instructions: With: Address: When: Kayla Dent [address] [place] [address] [place], [facility] [address] [place] [address] Business (1) In 3 days 09/27/2022, only if needed In the event that this physician does not participate in your insurance network, please consult with your insurance company to find a nearby participating provider. Patient Education Materials: Accidental Drug Poisoning, Adult A MESSAGE TO ALL PATIENTS REGARDING OPIOIDS PRESCRIPTION OPIOIDS: WHAT YOU NEED TO KNOW Prescription opioids can be used to help relieve heiqmhmr-eo-dmtlqn pain and are often prescribed following a [...] guidance from the Food and Drug Administration (www.fda.gov/Drugs/Resource sForYou). ? Visit www.cdc.gov/drugoverdose to learn about the risks of opioids abuse and overdose. ? If you believe you may be struggling with addiction, tell your health childcare director and ask for guidance or call [facility]?S National Helpline at 0-370-890-Userlike Live Chat. [employer] (more content not included)... Normal [facility] Monitor Recordon 09-24-2022 Monitor Record [id number]:127 Normal [facility] Troponin 0 Hr.on 09-24-2022 Troponin I.cardiac [Mass/Vol] 3.80 pg/mL Low 10.10-27.10 [facility] Comment on above: Result Comment: The 95% CI (Confidence Interval) PPV (Positive Predictive Value) for myocardial infarction in females is 38 pg/mL, in males 51 pg/mL. The results should be used in conjunction with clinical conditions of myocardial infarction. (Access High Sensitivity Troponin I Instructions For Use, [facility], January 2018) Performed By: #### 2 212626, 15072952, 8249513, 7492604, 86720450 ####[facility] [address] [place] [address] eGFRon 09-24-2022 GFR/1.73 sq M.predicted among blacks MDRD (S/P/Bld) [Vol rate/Area] mL/min/{1.73_m2} Normal >=59 [facility] Comment on above: Order Comment: Order added by Discern Expert. Result Comment: eGFR is race adjusted. AA=. Performed By: #### 2 589994, 69310241, 8194074, 3108639, 45925853 ####[facility] [address] [place] [address] GFR/1.73 sq M.predicted among non-blacks MDRD (S/P/Bld) [Vol rate/Area] mL/min/{1.73_m2} Normal >=59 [facility] Comment on above: Order Comment: Order added by Discern Expert. Result Comment: Mds Nurse trina kidney disease could be indicated at eGFR's of less than 60 mL/min/1.73m2. Kidney failure is indicated at less than 15 mL/min/1.73m2. Performed By: #### 2 349641, 85822824, 2382317, 3112575, 07829619 ####[facility] [address] [place] [address] CHEMISTRYOrdered By: SYSTEM SYSTEM on 09-23-2022 Albumin [Mass/Vol] 3.8 g/dL Normal 3.3 - 5.0 gm/dL [facility] Albumin/Globulin [Mass ratio] 1.1 {ratio} Normal 1.1 - 2.2 [facility] ALP [Catalytic activity/Vol] 91 [iU]/d Normal 21 - 98 Int._Unit/L [facility] ALT No additional P-5'-P [Catalytic activity/Vol] 34 [iU]/d Normal 6 - 46 Int._Unit/L [facility] Anion gap [Moles/Vol] 10 mmol/L Normal 6 - 16 mEq/L [facility] AST [Catalytic activity/Vol] 20 [iU]/d Normal 5 - 43 Int._Unit/L [facility] Bilirubin [Mass/Vol] 0.4 mg/dL Normal 0.0 - 1 .1 mg/dL [facility] Calcium [Mass/Vol] 8.9 mg/dL Normal 8.9 - 11. 1 mg/dL [facility] Chloride [Moles/Vol] 103 mmol/L Normal 101 - 1 11 mmol/L [facility] CO2 [Moles/Vol] 26 mmol/L Normal 21 - 31 mmol/L [facility] Creatinine [Mass/Vol] 0.8 mg/dL Normal 0.5 - 1.3 mg/dL [facility] GFR/1.73 sq M.predicted among blacks MDRD (S/P/Bld) [Vol rate/Area] mL/min/1.73 m2 Normal >=59mL/min/ 1.73 m2 [facility] Chem S GFR/1.73 sq M.predicted among non-blacks MDRD (S/P/Bld) [Vol rate/Area] mL/min/1.73 m2 Normal >=59mL/min/ 1.73 m2 [facility] Chem S Globulin (S) [Mass/Vol] 3.5 g/dL Normal 1.4 - 4.0 gm/dL [facility] Glucose [Mass/Vol] 137 mg/dL Normal 55 - 199 mg/dL [facility] Potassium [Moles/Vol] 4.0 mmol/L Normal 3.5 - 5.3 mmol/L [facility] Protein [Mass/Vol] 7.3 g/dL Normal 6.0 - 7.8 gm/dL [facility] Sodium [Moles/Vol] 135 mmol/L Normal 135 - 145 mmol/L [facility] Troponin I.cardiac [Mass/Vol] 3.80 pg/mL Low 10.10 - 27.10 pg/mL [facility] Urea nitrogen [Mass/Vol] 24 mg/dL High 5 - 21 mg/dL [facility] Urea nitrogen/Creatinine [Mass ratio] 30 mg/mg High 10 - 20 [facility] Remisol HEMATOLOGYOrdered By: SYSTEM SYSTEM on 09-23-2022 Basophils/100 WBC (Bld) 0.6 % Normal 0.0 - 2.0 % [facility] Basophils/Leukocytes Auto (Bld) [Pure # fraction] 0.1 E9/L Normal 0.0 - 0.2 E9/L [facility] Eosinophils/100 WBC (Bld) 0.3 % Normal 0.0 - 8.0 % [facility] Eosinophils/Leukocyt es Auto (Bld) [Pure # fraction] 0.0 E9/L Normal 0.0 - 0.5 E9/L [facility] Lymphocytes/100 WBC (Bld) 20.7 % Normal 14.0 - 50.0 % [facility] Lymphocytes/Leukocyt es Auto (Bld) [Pure # fraction] 3.0 E9/L Normal 1.0 - 4.0 E9/L [facility] Monocytes/100 WBC (Bld) 9.1 % Normal 4.0 - 14.0 % [facility] Monocytes/Leukocytes Auto (Bld) [Pure # fraction] 1.3 E9/L High 0.2 - 1.0 E9/L [facility] Neutrophils/100 WBC (Bld) 69.3 % Normal 36.0 - 75.0 % [facility] Neutrophils/Leukocyt es Auto (Bld) [Pure # fraction] 10.0 E9/L High 2.0 - 7.5 E9/L [facility] HEMATOLOGYOrdered By: Dominic Duke on 09-23-2022 Erythrocyte distribution width (RBC) [Ratio] 13.3 % Normal 10.9 - 14.2 % [facility] Hematocrit (Bld) [Volume fraction] 40.2 % Normal 34.0 - 46.0 % [facility] Hemoglobin (Bld) [Mass/Vol] 13.3 g/dL Normal 12.0 - 16.0 gm/dL [facility] MCH (RBC) [Entitic mass] 30.5 pg Normal 27.0 - 34.0 pg [facility] MCHC (RBC) [Mass/Vol] 33.2 g/dL Normal 31.4 - 36.0 gm/dL [facility] MCV (RBC) [Entitic vol] 91.8 fL Normal 80.0 - 100.0 fL [facility] Platelet mean volume (Bld) [Entitic vol] 8.7 fL Normal 6.4 - 10.8 fL [facility] Platelets (Bld) [#/Vol] 291.0 E9/L Normal 150.0 - 500.0 E9/L [facility] RBC (Bld) [#/Vol] 4.4 E12/L Normal 4.3 - 5.9 E12/L [facility] WBC corrected for nucl RBC Auto (Bld) [#/Vol] 14.4 E9/L High 4.0 - 11.0 E9/L [facility] Consent for Treatmenton Consent for Treatment [id number]:127 Normal [facility] Consent for Treatmenton Consent for Treatment [id number]:127 Normal [facility] Physician Orderon 09-21-2022 Physician Order [id number]#1.00CD:127 Normal [facility] Physician Order [id number]#1.00CD:127 Normal [facility] Physician Order [id number]#1.00CD:127 [facility] Office Visit (Cardiology)on 09-20-2022 Follow-up visit Diagnoses/Problems [...] Weight Tips; Status:Complete - Retrospective Authorization; Done: 20Sep2022 Losing just 5 to 10 pounds may lower your risk of health problems.; Status:Complete - Retrospective Authorization; Done: 20Sep2022 High risk medication use, Premature ventricular contractions (PVCs) (VPCs) Avoid alcoholic beverages.; Status:Complete - Retrospective Authorization; Done: 20Sep2022 Avoid foods and beverages that contain caffeine.; Status:Complete - Retrospective Authorization; Done: 20Sep2022 Eat a normal well-balanced diet.; Status:Complete - Retrospective Authorization; Done: 20Sep2022 High risk medication use, Premature ventricular contractions [...] or Bone Graft Simulator, Implanted Breast Tissue Microsoft Application Developer, Glucose Monitor, or Neulasta Device? : No Is the patient or breast feeding? : No What are the patient's signs and symptoms? : Tachycardia Patient Instructions Patient to follow up in 4-[address] Federico Wing MD Patient will INCREASE Flecainide to 100mg twice daily. Patient will need to complete an EKG on and Sunday of this week in [facility]- office will arrange for you. Patient will [...] laboratory tests Chief Complaint Patient here for [facility] discharge follow up. Discharged 08/24. Palpitations, PVCs [...] no marcellus (more content not included)... Normal [place] Tobacco Screening.on 023 Adult depression screening assessment No [facility] [employer] a 305 DO Work Phone: Fall risk assessment a) No falls within the last year [facility] [employer] a 305 DO Work Phone: Tobacco use status CPHS b) No [facility] [employer] [employer] a 305 DO Work Phone: BASIC METABOLIC PANELon 03- Anion gap [Moles/Vol] 11 mmol/L Normal 10 - 20 [facility] Comment on above: Performed By: #### T [facility] #### [address] [id number] Calcium [Mass/Vol] 8.9 mg/dL Normal 8.6 - 10.3 [facility] Comment on above: Performed By: #### T [facility] #### [address] [id number] Chloride [Moles/Vol] 104 mmol/L Normal 98 - 107 [facility] Comment on above: Performed By: #### T RP #### [address] [id number] Creatinine [Mass/Vol] 0.76 mg/dL Normal 0.50 - 1.05 [facility] Comment on above: Performed By: #### T [facility] #### [address] [id number] eGFR FEMALE >90 Normal >90 [facility] Comment on above: Result Comment: CALC ULATIONS OF ESTIMATED GFR ARE PERFORMED USING THE 2020 CKD-EPI STUDY REFIT EQUATION WITHOUT THE RACE VARIABLE FOR THE IDMS-TRACEABLE CREATININE METHODS. https://jasn.asnjournals.org/content/early//ASN.1909180 988 Performed By: #### T [facility] #### [address] [id number] Glucose [Mass/Vol] 99 mg/dL Normal 74 - 99 [facility] Comment on above: Performed By: #### T [facility] #### [address] [id number] HCO3 (Bld) [Moles/Vol] 26 mmol/L Normal 21 - 32 [facility] Comment on above: Performed By: #### T [facility] #### [address] [id number] Potassium [Moles/Vol] 3.8 mmol/L Normal 3.5 - 5.3 [facility] Comment on above: Performed By: #### T [facility] #### [address] [id number] Sodium [Moles/Vol] 137 mmol/L Normal 136 - 145 [facility] Comment on above: Performed By: #### T [facility] #### [address] [id number] Urea nitrogen [Mass/Vol] 16 mg/dL Normal 6 - 23 [facility] Comment on above: Performed By: #### T [facility] #### [address] [id number] CBCon 08-25-2022 Erythrocyte distribution width (RBC) [Ratio] 12.6 % Normal 11.5 - 14.5 [facility] Comment on above: Performed By: #### C BC #### [address] [id number] Hematocrit (Bld) [Volume fraction] 38.4 % Normal 36.0 - 46.0 [facility] Comment on above: Performed By: #### C BC #### [address] [id number] Hemoglobin (Bld) [Mass/Vol] 13.1 g/dL Normal 12.0 - 16.0 [facility] Comment on above: Performed By: #### C BC #### [address] [id number] MCHC (RBC) [Mass/Vol] 34.1 g/dL Normal 32.0 - 36.0 [facility] Comment on above: Performed By: #### C BC #### [address] [id number] MCV (RBC) [Entitic vol] 92 fL Normal 80 - 100 [facility] Comment on above: Performed By: #### C BC #### [address] [id number] Platelets (Bld) [#/Vol] 248 10*3/uL Normal 150 - 450 [facility] Comment on above: Performed By: #### C BC #### [address] [id number] RBC 4.18 x10E12/L Normal 4.00 - 5.20 [facility] Comment on above: Performed By: #### C BC #### [address] [id number] WBC (Bld) [#/Vol] 9.6 10*3/uL Normal 4.4 - 11.3 [facility] Comment on above: Performed By: #### C BC #### [address] [id number] Daily Progress Note-Electrop hysiologyon 08-25-2022 Daily Progress Note-Electrophysiolo gy Consult Type: subsequent visit/care Service: Electrophysiology Subjective Data: ARSHEEDA HANNA is a 51 year old Female who is Hospital Day # 4. Additional Information: still with c/o palpitations/ chest pain approximately 1 hour prior to receiving dose of flecainide Up out of bed ambulating in room and bianchi Objective Data: Objective Information: T PRBPMAPSpO2 Value36.96162603/750357% Date/Time08/25 12: 12: 12: 12: 12: 12:17 [...] mood and behavior Medication: Medications: Continuous Medications ----- No continuous medications are active Scheduled Medications ----- 1. Aspirin Chewable: 81 mg Oral Daily [...] Sertraline: 50 mg Oral Daily PRN Medications ----- 1. Acetaminophen: 650 mg Oral Every 4 [...] to better control of PVCs. EKG in [place] on Monday 08/28 and Tuesday 08/29 [...] day Patien (more content not included)... Normal [facility] Electrocardiogram 12 Leadon 08-25-2022 Electrocardiogram 12 Lead Ventricular Rate 71 Atrial Rate 71 P-R Interval 166 QRS Duration 88 Q-T Interval 380 QTC Calculation(Bazett) 412 P Stratford 59 R Stratford 61 T Stratford 56 QRS Count 12 Q Onset 219 P Onset 136 P Offset 195 T Offset 409 QTC Fredericia 402 Diagnosis Class Borderline Abnormal Diagnosis Normal sinus rhythm Normal ECG When compared with ECG of 24-AUG-2022 20:23, premature ventricular complexes is no longer present Confirmed by Naila Leach ([id number]) on 08/26/2022 1:34:29 PM Normal [facility] - Chemistry and C hemistry - challengeon 08-25-2022 Anion gap [Moles/Vol] 11 mmol/L 10 - 20 -[facility] [employer] Work Phone: Calcium [Mass/Vol] 8.9 mg/dL 8.6 - 10.3 [facility] Work Phone: Chloride [Moles/Vol] 104 mmol/L 98 - 107 [facility] [facility] [place] Work Phone: CO2 [Moles/Vol] 26 mmol/L 21 - 32 [facility] Work Phone: Creatinine [Mass/Vol] 0.76 mg/dL See Below [facility] [place] Work Phone: Comment on above: Reference Range: 0.5 0 - 1.05 Glucose [Mass/Vol] 99 mg/dL 74 - 99 [facility] [place] Work Phone: Potassium [Moles/Vol] 3.8 mmol/L 3.5 - 5.3 [facility] [place] Work Phone: Sodium [Moles/Vol] 137 mmol/L 136 - 145 [facility] [place] Work Phone: Urea nitrogen [Mass/Vol] 16 mg/dL 6 - 23 [facility] [employer] Work Phone: Laboratory - Hematology and Cell countson 08-25-2022 Erythrocyte distribution width (RBC) [Ratio] 12.6 % See Below [facility] [employer] Work Phone: Comment on above: Reference Range: 11. 5 - 14.5 Hematocrit (Bld) [Volume fraction] 38.4 % See Below [facility] [employer] Work Phone: Comment on above: Reference Range: 36. 0 - 46.0 Hemoglobin (Bld) [Mass/Vol] 13.1 g/dL See Below [facility] [employer] Work Phone: Comment on above: Reference Range: 12. 0 - 16.0 MCHC (RBC) [Mass/Vol] 34.1 g/dL See Below [facility] [employer] Work Phone: Comment on above: Reference Range: 32. 0 - 36.0 MCV (RBC) [Entitic vol] 92 fL 80 - 100 [facility] [employer] Work Phone: Platelets (Bld) [#/Vol] 248 10*3/uL 150 - 450 [facility] [facility] [place] Work Phone: RBC (Bld) [#/Vol] 4.18 {x10E12/L} See Below [facility] Work Phone: [phone] Comment on above: Reference Range: 4.0 0 - 5.20 WBC (Bld) [#/Vol] 9.6 10*3/uL 4.4 - 11.3 [facility] Work Phone: MAGNESIUMon 08-25-2022 Magnesium [Mass/Vol] 1.91 mg/dL Normal 1.60 - 2.40 [facility] Comment on above: Performed By: #### M G #### [address] [id number] Magnesium, Serumon Magnesium [Mass/Vol] 1.91 mg/dL See Below [facility] [facility] [place] Work Phone: Comment on above: Reference Range: 1.6 0 - 2.40 No Panel Informationon 08-25 [email or web address] [email or web address]/[email or web address].dll?R etrieveTestByDateTime?Patie ouAX=[id number]&Date= 023&Time=06%3a43%3a42%3a00& TestType=ECG&Site=11&Output Type=PDF&Ext=PDF [facility] DO Work Phone: Normal sinus [facility] DO Work Phone: Borderline Abnormal -No [facility] DO Work Phone: [phone] [facility] DO Work Phone: [phone] [facility] DO Work Phone: [phone] [facility] DO Work Phone: [phone] [facility] DO Work Phone: [phone] 1 -[facility] DO Work Phone: [phone] 1 -[facility] DO Work Phone: [phone] 1 -[facility] DO Work Phone: [phone] 1 -[facility] DO Work Phone: [phone] 1 -[facility] DO Work Phone: [phone] 1 [facility] DO Work Phone: [phone] 1 [facility] DO Work Phone: [phone] [facility] DO Work Phone: [phone] 1 [facility] DO Work Phone: [phone] 1 [facility] DO Work Phone: [phone] >90 >90 [facility] Work Phone: Comment on above: CALCULATIONS OF LINDSEY MATED GFR ARE PERFORMED USING THE 2020 CKD-EPI STUDY REFIT EQUATION WITHOUT THE RACE VARIABLE FOR THE IDMS-TRACEABLE CREATININE METHODS.https://jasn.asnjournals.org/content//ASN .1535480707 BASIC METABOLIC PANELon 03-0 GFR/1.73 sq M.predicted among non-blacks MDRD (S/P/Bld) [Vol rate/Area] 90 mL/min/{1.73_m2} Normal >90 [facility] Comment on above: Result Comment: CALC ULATIONS OF ESTIMATED GFR ARE PERFORMED USING THE 2020 CKD-EPI STUDY REFIT EQUATION WITHOUT THE RACE VARIABLE FOR THE IDMS-TRACEABLE CREATININE METHODS. https://jasn.asnjournals.org/content/early/ASN.0296178 988 Performed By: #### T [facility] #### [address] [id number] HCO3 (Bld) [Moles/Vol] 25 mmol/L Normal 21 - 32 [facility] Comment on above: Performed By: #### T [facility] #### [address] [id number] Anion gap [Moles/Vol] 12 mmol/L Normal 10 - 20 [facility] [place] Work Phone: Comment on above: Performed By: #### T [facility] #### [address] [id number] Calcium [Mass/Vol] 8.9 mg/dL Normal 8.6 - 10.3 [facility] [facility] [place] Work Phone: Comment on above: Performed By: #### T [facility] #### [address] [id number] Chloride [Moles/Vol] 104 mmol/L Normal 98 - 107 [facility] [facility] [place] Work Phone: Comment on above: Performed By: #### T [facility] #### [address] [id number] Creatinine [Mass/Vol] 0.78 mg/dL Normal 0.50 - 1.05 [facility] [place] Work Phone: Comment on above: Reference Range: 0.5 0 - 1.05 Performed By: #### T [facility] #### [address] [id number] Glucose [Mass/Vol] 109 mg/dL High 74 - 99 [facility] Work Phone: Comment on above: Performed By: #### T [facility] #### [address] [id number] Potassium [Moles/Vol] 4.0 mmol/L Normal 3.5 - 5.3 [facility] [place] Work Phone: Comment on above: Performed By: #### T RP #### [address] [id number] Sodium [Moles/Vol] 137 mmol/L Normal 136 - 145 [facility] [facility] [place] Work Phone: Comment on above: Performed By: #### T RP #### [address] [id number] Urea nitrogen [Mass/Vol] 17 mg/dL Normal 6 - 23 [facility] [place] Work Phone: Comment on above: Performed By: #### T RP #### [address] [id number] CBCon 08-24-2022 Erythrocyte distribution width (RBC) [Ratio] 12.6 % Normal 11.5 - 14.5 [facility] Comment on above: Performed By: #### C BC #### [address] [id number] Hematocrit (Bld) [Volume fraction] 39.8 % Normal 36.0 - 46.0 [facility] Comment on above: Performed By: #### C BC #### [address] [id number] Hemoglobin (Bld) [Mass/Vol] 13.5 g/dL Normal 12.0 - 16.0 [facility] Comment on above: Performed By: #### C BC #### [address] [id number] MCHC (RBC) [Mass/Vol] 33.9 g/dL Normal 32.0 - 36.0 [facility] Comment on above: Performed By: #### C BC #### [address] [id number] MCV (RBC) [Entitic vol] 92 fL Normal 80 - 100 [facility] Comment on above: Performed By: #### C BC #### [address] [id number] Platelets (Bld) [#/Vol] 264 10*3/uL Normal 150 - 450 [facility] Comment on above: Performed By: #### C BC #### [address] [id number] RBC 4.32 x10E12/L Normal 4.00 - 5.20 [facility] Comment on above: Performed By: #### C BC #### [address] [id number] WBC (Bld) [#/Vol] 9.3 10*3/uL Normal 4.4 - 11.3 [facility] Comment on above: Performed By: #### C BC #### [address] [id number] Daily Progress Note-Electrop hysiologyon 08-24-2022 Daily Progress Note-Electrophysiolo gy Service: Electrophysiology Subjective Data: RASHEEDA HANNA is [...] day Objective Data: Objective Information: T PRBPMAPSpO2 Value36.782658/020648% Date/Time08/24 7: 7: 7: 7: 7:20 Range(36.1C [...] lesions, no rashes Medication: Medications: Continuous Medications ----- No continuous medications are active Scheduled Medications ----- 1. Aspirin Chewable: 81 mg Oral Daily 2. Flecainide: 50 mg Oral Every 12 Hours 3. Metoprolol Succinate Extended Release: 25 mg Oral At Bedtime 4. Pantoprazole: 40 mg Oral Daily 5. Sertraline: 50 mg Oral Daily PRN Medications ----- 1. Acetaminophen: 650 mg Oral Every 4 [...] Cl- BUN / 137 104 17 / ----- Glucose 109 H K+ HCO3- Creat \ [...] Last Updated: 24-Aug-2022 13:51 by Federico Wing) [facility] Daily Progress Note-Medicine on 08-24-2022 Daily [...] resolved. Objective Data: Objective Information: T PRBPMAPSpO2 Value36.325650/244948% Date/Time08/24 15: 15: 15: 15: 15:18 Range(36.1C [...] Cl- BUN / 137 104 17 / ----- Glucose 109 H K+ HCO3- Creat \ [...] Last Updated: 24-Aug-2022 16:43 by Skip Kelly) Normal [facility] Discharge [id number] Discharge Profile2 Discharge Orders: Anticipated Discharge Date: Anticipated Discharge [id number] Hospital Providers: Provider RoleProvider Name AttendingSkip Kelly Alberto DNAR: Code Status at Discharge: Full Code Activity: activity as tolerated. Provider FINAL REVIEW of Orders: Final Review: Final Review of Medication Reconciliation and Orders Completedby Physician Reviewing Viki Kelly MD at 25-Aug-2022 13:14:58 Appointments: Follow-Up Appointment 01: Physician/Dept/ServiceDr. Wing Reason for ReferralElectrophysiology follow-up Scheduled Date/[id number] 11:45 [facility] office in [place] [address] Phone [phone] Other Clinician Instructions: Other Instructions: Other Clinician InstructionsPlease follow up in the [place] office as discussed with EP for repeat EKGs on monday 08/28 and tuesday 08/29. You will be increasing your flecainide to 75mg twice daily on Sunday. Please call the office or return to the hospital if you have worsening chest pain, shortness of breath, if you pass out, or have any other concerning symptoms. Electronic Signatures: Felicita Bhagat (LIFE ENRICHMENT SPECIALIST-RECORDIST) (Signed 24-Aug-2022 14:30) Authored: Discharge Orders, Appointments, Gold Form - Screen Door Maker Summary Skip Kelly) (Signed 25-Aug-2022 13:14) Authored: Discharge Orders, Provider FINAL REVIEW of Orders, Other Clinician Instructions Last Updated: 25-Aug-2022 13:14 by Skip Kelly) Normal [facility] Electrocardiogram 12 Leadon 08-24-2022 Electrocardiogram 12 Lead Ventricular Rate 69 Atrial Rate 69 P-R Interval 136 QRS Duration 82 Q-T Interval 398 QTC Calculation(Bazett) 426 P Stratford 39 R Stratford 48 T Stratford 45 QRS Count 11 Q Onset 218 P Onset 150 P Offset 193 T Offset 417 QTC Fredericia 417 Diagnosis Class Borderline Abnormal Diagnosis Sinus rhythm with frequent premature ventricular complexes in a pattern of bigeminy Otherwise normal ECG When compared with ECG of 24-AUG-2022 06:30, No significant change was found Confirmed by Naila Leach ([id number]) on 08/26/2022 1:28:10 PM Normal [facility] Electrocardiogram 12 Lead Ventricular Rate 62 Atrial Rate 62 P-R Interval 162 QRS Duration 86 Q-T Interval 392 QTC Calculation(Bazett) 397 P Stratford 28 R Stratford 46 T Stratford 42 QRS Count 10 Q Onset 219 [...] Wing ([id number]) on 08/24/2022 8:32:51 AM Normal [facility] - Chemistry and C hemistry - challengeon 08-24-2022 CO2 [Moles/Vol] 25 mmol/L 21 - 32 [facility] [employer] [facility] [employer] Work Phone: Laboratory - Hematology and Cell countson 08-24-2022 Erythrocyte distribution width (RBC) [Ratio] 12.6 % See Below [facility] [employer] Work Phone: Comment on above: Reference Range: 11. 5 - 14.5 Hematocrit (Bld) [Volume fraction] 39.8 % See Below [facility] [place] Work Phone: Comment on above: Reference Range: 36. 0 - 46.0 Hemoglobin (Bld) [Mass/Vol] 13.5 g/dL See Below [facility] Work Phone: Comment on above: Reference Range: 12. 0 - 16.0 MCHC (RBC) [Mass/Vol] 33.9 g/dL See Below [facility] Work Phone: Comment on above: Reference Range: 32. 0 - 36.0 MCV (RBC) [Entitic vol] 92 fL 80 - 100 [facility] Work Phone: Platelets (Bld) [#/Vol] 264 10*3/uL 150 - 450 [facility] Work Phone: RBC (Bld) [#/Vol] 4.32 {x10E12/L} See Below [facility] Work Phone: Comment on above: Reference Range: 4.0 0 - 5.20 WBC (Bld) [#/Vol] 9.3 10*3/uL 4.4 - 11.3 [facility] a [place] Work Phone: Magnesium, Serumon 3 Magnesium [Mass/Vol] 2.00 mg/dL Normal 1.60 - 2.40 [facility] Work Phone: Comment on above: Reference Range: 1.6 0 - 2.40 Performed By: #### M G #### [address] [id number] No Panel Informationon 08-24 [email or web address]/[email or web address]?R etrieveTestByDateTime?Sherice qyJU=[id number]&Date= 023&Time=20%3a23%3a14%3a00& TestType=ECG&Site=11&Output Type=PDF&Ext=PDF [facility] DO Work Phone: [phone] Sinus rhythm with fr equent premature ventricular complexes in a pattern of bigeminy [facility] DO Work Phone: [phone] Borderline Abnormal [facility] DO Work Phone: [phone] [facility] DO Work Phone: [phone] [facility] DO Work Phone: [phone] 1 [facility] DO Work Phone: [phone] 1 [facility] DO Work Phone: [phone] 1 [facility] DO Work Phone: [phone] 1 [facility] DO Work Phone: [phone] 1 [facility] DO Work Phone: [phone] 1 [facility] DO Work Phone: [phone] 1 [facility] DO Work Phone: [phone] 1 [facility] DO Work Phone: [phone] 1 [facility] DO Work Phone: [phone] 1 [facility] DO Work Phone: [phone] 1 [facility] DO Work Phone: [phone] [email or web address]://[email or web address] PURCELLEXPRDWE B01:808 0/[email or web address]/[email or web address]?R etrieveTestByDateTime?Sherice vazquezaaKU=[id number]&Date= 023&Time=06%3a30%3a53%3a00& TestType=ECG&Site=11&Output Type=PDF&Ext=PDF [facility] [facility] [place] Work Phone: Sinus rhythm with occasional premature ventricular complexes [facility] [facility] [place] Work Phone: Borderline Abnormal [facility] [facility] [place] Work Phone: [phone] [facility] [facility] [place] Work Phone: [phone] 1 [facility] [facility] [place] Work Phone: [phone] [facility] [facility] [place] Work Phone: [phone] [facility] [facility] [place] Work Phone: [phone] [facility] [facility] [place] Work Phone: [phone] 1 [facility] [facility] [place] Work Phone: [phone] 1 [facility] [facility] [place] Work Phone: 46 1 [facility] [facility] [place] Work Phone: 28 1 [facility] [facility] [place] Work Phone: [phone] 1 [facility] [facility] [place] Work Phone: [phone] 1 [facility] [facility] [place] Work Phone: [phone] 1 [facility] [facility] [place] Work Phone: [phone] [facility] [facility] [place] Work Phone: 62 1 [facility] [facility] [place] Work Phone: 90 {mL/min/1.73m2} >90 [facility] [facility] [place] Work Phone: [phone] Comment on above: CALCULATIONS OF LINDSEY MATED GFR ARE PERFORMED USING THE 2020 CKD-EPI STUDY REFIT EQUATION WITHOUT THE RACE VARIABLE FOR THE IDMS-TRACEABLE CREATININE METHODS.https://jasn.asnjournals.org/content//ASN .4363375848 Order Reconciliationon 08-24 Order Reconciliation Page 1 Discharge Reconciliation Document Reconciliation Type: Discharge requested on behalf of Skip Kelly (Physician) done by Skip Kelly) Discharge - Partial Reconciliation: 24-Aug-2022 09:08 by: Kayla Shaw ([facility]) Discharge - Partial Reconciliation: 25-Aug-2022 09:53 by: Kayla Shaw ([facility]) Discharge - Partial Reconciliation: 25-Aug-2022 12:31 by: Kayla Shaw ([facility]) Discharge - Reconciliation: 25-Aug-2022 13:15 by: [...] [facility] (more content not included)... Normal [facility] Admission Risk Screen - Adul ton 08-23-2022 [...] AlertFor Ebola-like Symptoms: Isolate Patient and Notify Provider/Bulk System Operator For Contact: Notify Provider/Bulk System Operator Advance Directive: Advance Directive/DNRno Advance Directive Information Givenpatient/family declined [place] Fall Screen: History of falling (immediate or previous)no (0) Secondary Diagnosisyes (15) Intravenous Therapy/ Heparin/Saline Lockyes (20) Gait/Transferringnormal/bed rest/wheelchair (0) Ambulatory Aidsnone/bedrest/nurse assist (0) Mental Statusoriented [...] Learning Preferencesskill demonstration Cultural Considerationsnone Developmental Considerationsnone Confucianist Considerationsnone Learning Assessment (Other Learner): Other learner availableno Depression Screen: During the past month, have you often been bothered by feeling down, depressed or hopelessyes During the past month, have you often had little interest or pleasure in doing thingsno Have you had any thoughts of harming anyone elseno (1) [place] Suicide: Risk Screen Not Applicable/Able to Answerable to be screened In the Past Month: Have you wished you were or could go to sleep and not wake upno(1) In the Past Month: Have you had any actual thoughts of killing yourself no(1) Lifetime: Have you ever done, started to do, or prepared to do anything to end your lifeno [place] Suicide Risknegative Adult Nutrition Screen: Have you [...] Spiritual Screen: Are there any cultural, spiritual, catholic practices/values/needs that are important for us to knowno CAGE: Is this an injure (more content not included)... Normal [facility] BASIC METABOLIC PANELon 03-0 Anion gap [Moles/Vol] 11 mmol/L Normal - 20 [facility] Comment on above: Performed By: #### B MP #### [address] [id number] Calcium [Mass/Vol] 8.9 mg/dL Normal 8.6 - 10.3 [facility] Comment on above: Performed By: #### B MP #### [address] [id number] Chloride [Moles/Vol] 102 mmol/L Normal 98 - 107 [facility] Comment on above: Performed By: #### B MP #### [address] [id number] Creatinine [Mass/Vol] 0.92 mg/dL Normal 0.50 - 1.05 [facility] Comment on above: Performed By: #### B MP #### [address] [id number] GFR/1.73 sq M.predicted among non-blacks MDRD (S/P/Bld) [Vol rate/Area] 74 mL/min/{1.73_m2} Normal >90 [facility] Comment on above: Result Comment: CALC ULATIONS OF ESTIMATED GFR ARE PERFORMED USING THE 2020 CKD-EPI STUDY REFIT EQUATION WITHOUT THE RACE VARIABLE FOR THE IDMS-TRACEABLE CREATININE METHODS. https://jasn.asnjournals.org/content/early/ASN.8250064 988 Performed By: #### B MP #### [address] [id number] Glucose [Mass/Vol] 103 mg/dL High 74 - 99 [facility] Comment on above: Performed By: #### B MP #### [address] [id number] HCO3 (Bld) [Moles/Vol] 26 mmol/L Normal 21 - 32 [facility] Comment on above: Performed By: #### B MP #### [address] [id number] Potassium [Moles/Vol] 3.8 mmol/L Normal 3.5 - 5.3 [facility] Comment on above: Performed By: #### B MP #### [address] [id number] Sodium [Moles/Vol] 135 mmol/L Low 136 - 145 [facility] Comment on above: Performed By: #### B MP #### [address] [id number] Urea nitrogen [Mass/Vol] 17 mg/dL Normal 6 - 23 [facility] Comment on above: Performed By: #### B MP #### [address] [id number] CBCon 08-23-2022 Erythrocyte distribution width (RBC) [Ratio] 12.5 % Normal 11.5 - 14.5 [facility] Comment on above: Performed By: #### C BC #### [address] [id number] Hematocrit (Bld) [Volume fraction] 39.7 % Normal 36.0 - 46.0 [facility] Comment on above: Performed By: #### C BC #### [address] [id number] Hemoglobin (Bld) [Mass/Vol] 13.6 g/dL Normal 12.0 - 16.0 [facility] Comment on above: Performed By: #### C BC #### [address] [id number] MCHC (RBC) [Mass/Vol] 34.3 g/dL Normal 32.0 - 36.0 [facility] Comment on above: Performed By: #### C BC #### [address] [id number] MCV (RBC) [Entitic vol] 93 fL Normal 80 - 100 [facility] Comment on above: Performed By: #### C BC #### [address] [id number] Platelets (Bld) [#/Vol] 256 10*3/uL Normal 150 - 450 [facility] Comment on above: Performed By: #### C BC #### [address] [id number] RBC 4.25 x10E12/L Normal 4.00 - 5.20 [facility] Comment on above: Performed By: #### C BC #### [address] [id number] WBC (Bld) [#/Vol] 9.2 10*3/uL Normal 4.4 - 11.3 [facility] Comment on above: Performed By: #### C BC #### [address] [id number] Consult-Electrophysiologyon 08-23-2022 Consult-Electrophysi ology Service: Service: Electrophysiology Consult: Consult requested by (Attending Name): Skip Kelly Reason: symptomatic bradycardia, bigeminy History of Present Illness: HPI: RASHEEDA HANNA is a 51 year old Female evaluated in [facility] emergency room on 08/22/2022 secondary to [...] Swelling, Hives/Urticaria Objective: Objective Information: T PRBPMAPSpO2 [id number]% Date/Time08/23 9: 9: 16:443 9: 0:1138 9:05 Range(36.4C - 37C ) (38 - [...] lesions, no rashes Medications: Medications: Continuous Medications ----- No continuous medications are active Scheduled Medications ----- 1. Aspirin Chewable: 81 mg Oral Daily 2. Flecainide: 50 mg Oral Every 12 Hours 3. Pantoprazole: 40 mg Oral Daily PRN Medications ----- 1. Acetaminophen: 650 mg Oral Every 4 [...] 3:25:30 PM (more content not included)... Normal [facility] Daily Progress Note-Medicine on 08-23-2022 Daily Progress Note-Medicine Service: Medicine Subjective Data: RASHEEDA HANNA is a 51 year old Female who is Hospital Day # 2. Some bradycardia overnight. Feeling better today however, less dizziness. Still getting symptoms with positional changes however. No chest pain. No dyspnea. Objective Data: Objective Information: T PRBPMAPSpO2 [id number]% Date/Time08/23 14: 14: 16:443 14: 0:113/8 14:03 Range(36.4C - 37C ) (38 - [...] BUN / 135 L 102 17 / ----- Glucose 103 H K+ HCO3- Creat \ [...] Updated: 23-Aug-2022 16:31 by Skip Kelly) Normal [facility] Discharge Planning [id number] 0 08-23-2022 Discharge Planning Note2 Discharge Planning: Discharge DestinationHome Anticipated Discharge [id number] Discharge Planning 08/23/2022 1422 Care Transitions Note Rasheeda Hanna is a 51 year old female who was admitted to [facility] 08/22/2022 with dx of chest pain. Chart reviewed, senior copywriter spoke with patient- introduced self and explained role. Patient sitting up in bed. She is alert and oriented x3. Patient interacted well with senior copywriter and answered assessment questions appropriately. Demographics confirmed. PCP Dr. Kayla Dent who she saw in June and have follow-up in October. Pharmacy preference is [facility]. Prior to admission, lives with spouse in a 1 story home. Prior level of functioning independent no assistive device. She completed own adls and iadls. She is still working 42-50 hours a week. 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 She is currently denying any needs/ concerns. Her plan is home. Care Transitions to continue to monitor progression and address needs/ concerns as identified. ASHUTOSH Paulino Assessment: Discharge Planning Assessment [id number] Primary Contact Name and [phone] (spouse) He(1) Lives Withadult child(jose); dependent child(jose); spouse(1) Living Arrangementshouse(1) Stated Reason for AdmissionChest pain dizzy and SOB(1) [place] (1) Resource/Environmental Concernsnone(1) Anticipated Transition [place](1) Services Anticipated at Transitionnone(1) Electronic Signatures: Lou Ferrer (HARREIT) (Signed 23-Aug-2022 14:34) Authored: Discharge Planning, Assessment Last Updated: 23-Aug-2022 14:34 by Lou eFrrer (HARRIET) References: 1. Data Referenced From Patient Profile - Adult v2 22-Aug-2022 22:19 Normal [facility] Laboratory - Chemistry and C hemistry - challengeon 08-23-2022 Anion gap [Moles/Vol] 11 mmol/L 10 - 20 [facility] [place] Work Phone: Calcium [Mass/Vol] 8.9 mg/dL 8.6 - 10.3 [facility] [place] Work Phone: Chloride [Moles/Vol] 102 mmol/L 98 - 107 [facility] [place] Work Phone: CO2 [Moles/Vol] 26 mmol/L 21 - 32 [facility] [place] [facility]: Creatinine [Mass/Vol] 0.92 mg/dL See Below [facility] [place] Work Phone: Comment on above: Reference Range: 0.5 0 - 1.05 Glucose [Mass/Vol] 103 mg/dL above high threshold 74 - 99 [facility] [place] Work [facility]: Potassium [Moles/Vol] 3.8 mmol/L 3.5 - 5.3 [facility] [place] Work Phone: Sodium [Moles/Vol] 135 mmol/L below low threshold 136 - 145 [facility] [place] Work Phone: Urea nitrogen [Mass/Vol] 17 mg/dL 6 - 23 [facility] [place] Work Phone: Laboratory - Hematology and Cell countson 08-23-2022 Erythrocyte distribution width (RBC) [Ratio] 12.5 % See Below [facility] [place] Work Phone: Comment on above: Reference Range: 11. 5 - 14.5 Hematocrit (Bld) [Volume fraction] 39.7 % See Below [facility] Work Phone: Comment on above: Reference Range: 36. 0 - 46.0 Hemoglobin (Bld) [Mass/Vol] 13.6 g/dL See Below [facility] Work Phone: Comment on above: Reference Range: 12. 0 - 16.0 MCHC (RBC) [Mass/Vol] 34.3 g/dL See Below [facility] Work Phone: Comment on above: Reference Range: 32. 0 - 36.0 MCV (RBC) [Entitic vol] 93 fL 80 - 100 [facility] Work Phone: Platelets (Bld) [#/Vol] 256 10*3/uL 150 - 450 [facility] Work Phone: RBC (Bld) [#/Vol] 4.25 {x10E12/L} See Below [facility] Work Phone: Comment on above: Reference Range: 4.0 0 - 5.20 WBC (Bld) [#/Vol] 9.2 10*3/uL 4.4 - 11.3 [facility] Work Phone: No Panel Informationon 08-23 74 {mL/min/1.73m2} >90 [facility] Work Phone: Comment on above: CALCULATIONS OF LINDSEY MATED GFR ARE PERFORMED USING THE 2020 CKD-EPI STUDY REFIT EQUATION WITHOUT THE RACE VARIABLE FOR THE IDMS-TRACEABLE CREATININE METHODS.https://jasn.asnjournals.org/content/early/ASN .8040380067 Patient Profile - Adult v2on 08-23-2022 Patient Profile - Adult v2 Profile: Initial Info: How to be AddressedPaula(1) Spoken Language PreferredEnglish (1) Stated Reason for AdmissionChest pain dizzy and SOB Primary Contact Name and [phone] (spouse) He Wants Family/Rep Notified of Admissionn/a; family present Notify PCPdeferred, unable to answer Informed of Patient Visiting Rightsyes [place] Employment Statusemployed Patient Belongingsremains with patient Patient Belongings Remaining with Patientcell phone/electronics; vision aids Medications Brought to Hospitalno General Health: Blood Avoidance/Restrictionsnone( 1) Previous Transfusion Reactionno(1) Weight in kg82.8 kilogram(s) Weight in csl339.5 pound(s) Weight Methodactual (measured) Scale Typestanding Height [...] Arrangementshouse Services Anticipated at Transitionnone Anticipated Transition [place] Significant IndicatorsComplete Information Review: Allergies, Home Meds and Significant Events have been Reviewed and Verified with Patient/Familyyes ALLERGY, INTOLERANCE, ADVERSE EVENT: Allergies: NKDA: Active Shell Fish: Food, Facial Swelling, Hives/Urticaria, Active Electronic Signatures: Olga Reyes (ABHISHEK) (Signed 22-Aug-2022 22:30) Authored: Initial Info, General Health, RSP Based Care, Substance, Health Mgmt, Relationship/Environ, Additional Information Last Updated: 22-Aug-2022 22:30 by Olga Reyes (ABHISHEK) References: 1. Data Referenced From Patient Profile - Preop v3 21-Apr-2021 10:03 2. Data Referenced From 1. Vital Signs 22-Aug-2022 14:46 3. Data Referenced From History and Physical 22-Aug-2022 17:58 Normal [facility] BASIC METABOLIC PANELon 03-0 ANION GAP Canceled Normal [facility] Comment on above: Order Comment: TEST BASIC METABOLIC PANEL WAS CANCELLED, 08/22/2022 20:12 This order is Barbi draw. Retiming 08/22/2022 20:12. Performed By: #### T RPHS #### [address], [place] [id number] BICARBONATE Canceled Normal [facility] Comment on above: Order Comment: TEST BASIC METABOLIC PANEL WAS CANCELLED, 08/22/2022 20:12 This order is Barbi draw. Retiming 08/22/2022 20:12. Performed By: #### T RPHS #### [address], [place] [id number] CALCIUM Canceled Normal [facility] Comment on above: Order Comment: TEST BASIC METABOLIC PANEL WAS CANCELLED, 08/22/2022 20:12 This order is Barbi draw. Retiming 08/22/2022 20:12. Performed By: #### T RPHS #### [address], [place] [id number] CHLORIDE Canceled Normal [facility] Comment on above: Order Comment: TEST BASIC METABOLIC PANEL WAS CANCELLED, 08/22/2022 20:12 This order is Barbi draw. Retiming 08/22/2022 20:12. Performed By: #### T RPHS #### [address], [place] [id number] CREATININE Canceled Normal [facility] Comment on above: Order Comment: TEST BASIC METABOLIC PANEL WAS CANCELLED, 08/22/2022 20:12 This order is Barbi draw. Retiming 08/22/2022 20:12. Performed By: #### T RPHS #### [address] [id number] eGFR FEMALE Canceled Normal [facility] Comment on above: Order Comment: TEST BASIC METABOLIC PANEL WAS CANCELLED, 08/22/2022 20:12 This order is Barbi draw. Retiming 08/22/2022 20:12. Result Comment: CALC ULATIONS OF ESTIMATED GFR ARE PERFORMED USING THE 2020 CKD-EPI STUDY REFIT EQUATION WITHOUT THE RACE VARIABLE FOR THE IDMS-TRACEABLE CREATININE METHODS. https://jasn.asnjournals.org/content/early/ASN.5556131 988 Performed By: #### T RPHS #### [address] [id number] eGFR MALE Canceled Normal [facility] Comment on above: Order Comment: TEST BASIC METABOLIC PANEL WAS CANCELLED, 08/22/2022 20:12 This order is Barbi draw. Retiming 08/22/2022 20:12. Result Comment: CALC ULATIONS OF ESTIMATED GFR ARE PERFORMED USING THE 2020 CKD-EPI STUDY REFIT EQUATION WITHOUT THE RACE VARIABLE FOR THE IDMS-TRACEABLE CREATININE METHODS. https://jasn.asnjournals.org/content/early/ASN.0005203 988 Performed By: #### T RPHS #### [address], [place] [id number] GLUCOSE Canceled Normal [facility] Comment on above: Order Comment: TEST BASIC METABOLIC PANEL WAS CANCELLED, 08/22/2022 20:12 This order is Barbi draw. Retiming 08/22/2022 20:12. Performed By: #### T RPHS #### [address] [id number] POTASSIUM Canceled Normal [facility] Comment on above: Order Comment: TEST BASIC METABOLIC PANEL WAS CANCELLED, 08/22/2022 20:12 This order is Barbi draw. Retiming 08/22/2022 20:12. Performed By: #### T RPHS #### [address], [place] [id number] SODIUM Canceled Normal [facility] Comment on above: Order Comment: TEST BASIC METABOLIC PANEL WAS CANCELLED, 08/22/2022 20:12 This order is Barbi draw. Retiming 08/22/2022 20:12. Performed By: #### T RP #### [address] [id number] UREA NITROGEN Canceled Normal [facility] Comment on above: Order Comment: TEST BASIC METABOLIC PANEL WAS CANCELLED, 08/22/2022 20:12 This order is Barbi draw. Retiming 08/22/2022 20:12. Performed By: #### T [facility] #### [address] [id number] CBCon 08-22-2022 HCT Canceled Normal [facility] Comment on above: Order Comment: TEST CBC WAS CANCELLED, 08/22/2022 20:12 This order is for AM draw. Dhayaqxt38/07/2023 20:12. Performed By: #### M G #### [address] [id number] HGB Canceled Normal [facility] Comment on above: Order Comment: TEST CBC WAS CANCELLED, 08/22/2022 20:12 This order is for AM draw. Ypcfleop37/07/2023 20:12. Performed By: #### M G #### [address] [id number] MCHC Canceled Normal [facility] Comment on above: Order Comment: TEST CBC WAS CANCELLED, 08/22/2022 20:12 This order is for AM draw. Hlukpyjx87/07/2023 20:12. Performed By: #### M G #### [address] [id number] MCV Canceled Normal [facility] Comment on above: Order Comment: TEST CBC WAS CANCELLED, 08/22/2022 20:12 This order is for AM draw. Oursgsed44/07/2023 20:12. Performed By: #### M G #### [address] [id number] NUCLEATED RBC Canceled Normal [facility] Comment on above: Order Comment: TEST CBC WAS CANCELLED, 08/22/2022 20:12 This order is for AM draw. Tqmdwmzm87/07/2023 20:12. Performed By: #### M G #### [address] [id number] PLT Canceled Normal [facility] Comment on above: Order Comment: TEST CBC WAS CANCELLED, 08/22/2022 20:12 This order is for AM draw. Fpxzjjtv52/07/2023 20:12. Performed By: #### M G #### [address] [id number] RBC Canceled Normal [facility] Comment on above: Order Comment: TEST CBC WAS CANCELLED, 08/22/2022 20:12 This order is for AM draw. Byikpfim79/07/2023 20:12. Performed By: #### M G #### [address] [id number] RDW-CV Canceled Normal [facility] Comment on above: Order Comment: TEST CBC WAS CANCELLED, 08/22/2022 20:12 This order is for AM draw. Wtluduea54/07/2023 20:12. Performed By: #### M G #### [address] [id number] WBC Canceled Normal [facility] Comment on above: Order Comment: TEST CBC WAS CANCELLED, 08/22/2022 20:12 This order is for AM draw. Pssgokqw57/07/2023 20:12. Performed By: #### M G #### [address] [id number] CBC AND DIFFERENTIALon 08-22 % AUTOMATED IMMATURE GRAN 0.4 % Normal 0.0 - 0.9 [facility] Comment on above: Result Comment: Patricia ture Granulocyte Count (IG) includes promyelocytes, myelocytes and metamyelocytes but does not include bands. Percent differential counts (%) should be interpreted in the context of the absolute cell counts (cells/L). Performed By: #### T RPHS #### [address] [id number] Basophils (Bld) [#/Vol] 0.07 10*3/uL Normal 0.00 - 0.10 [facility] Comment on above: Performed By: #### T RPHS #### [address] [id number] Basophils/100 WBC (Bld) 0.7 % Normal 0.0 - 2.0 [facility] Comment on above: Performed By: #### T RPHS #### [address] [id number] Eosinophils (Bld) [#/Vol] 0.12 10*3/uL Normal 0.00 - 0.70 [facility] Comment on above: Performed By: #### T RPHS #### [address] [id number] Eosinophils/100 WBC (Bld) 1.2 % Normal 0.0 - 6.0 [facility] Comment on above: Performed By: #### T RPHS #### [address] [id number] Erythrocyte distribution width (RBC) [Ratio] 12.4 % Normal 11.5 - 14.5 [facility] Comment on above: Performed By: #### T RPHS #### [address] [id number] Hematocrit (Bld) [Volume fraction] 42.8 % Normal 36.0 - 46.0 [facility] Comment on above: Performed By: #### T RPHS #### [address] [id number] Hemoglobin (Bld) [Mass/Vol] 14.6 g/dL Normal 12.0 - 16.0 [facility] Comment on above: Performed By: #### T RPHS #### [address] [id number] Lymphocytes (Bld) [#/Vol] 2.38 10*3/uL Normal 1.20 - 4.80 [facility] Comment on above: Performed By: #### T RPHS #### [address] [id number] Lymphocytes/100 WBC (Bld) 22.9 % Normal 13.0 - 44.0 [facility] Comment on above: Performed By: #### T RPHS #### [address] [id number] MCHC (RBC) [Mass/Vol] 34.1 g/dL Normal 32.0 - 36.0 [facility] Comment on above: Performed By: #### T RPHS #### [address] [id number] MCV (RBC) [Entitic vol] 93 fL Normal 80 - 100 [facility] Comment on above: Performed By: #### T RP #### [address] [id number] Monocytes (Bld) [#/Vol] 0.80 10*3/uL Normal 0.10 - 1.00 [facility] Comment on above: Performed By: #### T RPHS #### [address] [id number] Monocytes/100 WBC (Bld) 7.7 % Normal 2.0 - 10.0 [facility] Comment on above: Performed By: #### T RPHS #### [address] [id number] Neutrophils (Bld) [#/Vol] 7.00 10*3/uL Normal 1.20 - 7.70 [facility] Comment on above: Performed By: #### T RPHS #### [address] [id number] Neutrophils/100 WBC (Bld) 67.1 % Normal 40.0 - 80.0 [facility] Comment on above: Performed By: #### T RPHS #### [address] [id number] Platelets (Bld) [#/Vol] 285 10*3/uL Normal 150 - 450 [facility] Comment on above: Performed By: #### T RPHS #### [address] [id number] RBC 4.58 x10E12/L Normal 4.00 - 5.20 [facility] Comment on above: Performed By: #### T RPHS #### [address] [id number] WBC (Bld) [#/Vol] 10.4 10*3/uL Normal 4.4 - 11.3 [facility] Comment on above: Performed By: #### T RPHS #### [address] [id number] COMPREHENSIVE PANELon 2022 Albumin [Mass/Vol] 4.3 g/dL Normal 3.4 - 5.0 [facility] Comment on above: Performed By: #### T RPHS #### [address] [id number] ALP [Catalytic activity/Vol] 80 U/L Normal 33 - 110 [facility] Comment on above: Performed By: #### T RPHS #### [address] [id number] ALT [Catalytic activity/Vol] 29 U/L Normal 7 - 45 [facility] Comment on above: Result Comment: Selam ents treated with Sulfasalazine may generate falsely decreased results for ALT. Performed By: #### T RPHS #### [address] [id number] Anion gap [Moles/Vol] 13 mmol/L Normal 10 - 20 [facility] Comment on above: Performed By: #### T RPHS #### [address] [id number] AST [Catalytic activity/Vol] 22 U/L Normal 9 - 39 [facility] Comment on above: Performed By: #### T RPHS #### [address] [id number] Bilirubin [Mass/Vol] 0.4 mg/dL Normal 0.0 - 1.2 [facility] Comment on above: Performed By: #### T RPHS #### [address] [id number] Calcium [Mass/Vol] 9.4 mg/dL Normal 8.6 - 10.3 [facility] Comment on above: Performed By: #### T RPHS #### [address] [id number] Chloride [Moles/Vol] 102 mmol/L Normal 98 - 107 [facility] Comment on above: Performed By: #### T RPHS #### [address] [id number] Creatinine [Mass/Vol] 0.93 mg/dL Normal 0.50 - 1.05 [facility] Comment on above: Performed By: #### T RPHS #### [address] [id number] GFR/1.73 sq M.predicted among non-blacks MDRD (S/P/Bld) [Vol rate/Area] 73 mL/min/{1.73_m2} Normal >90 [facility] Comment on above: Result Comment: CALC ULATIONS OF ESTIMATED GFR ARE PERFORMED USING THE 2020 CKD-EPI STUDY REFIT EQUATION WITHOUT THE RACE VARIABLE FOR THE IDMS-TRACEABLE CREATININE METHODS. https://jasn.asnjournals.org/content/early/ASN.4870931 988 Performed By: #### T RPHS #### [address] [id number] Glucose [Mass/Vol] 92 mg/dL Normal 74 - 99 [facility] Comment on above: Performed By: #### T RPHS #### [address] [id number] HCO3 (Bld) [Moles/Vol] 28 mmol/L Normal 21 - 32 [facility] Comment on above: Performed By: #### T RP #### [address] [id number] Potassium [Moles/Vol] 3.8 mmol/L Normal 3.5 - 5.3 [facility] Comment on above: Performed By: #### T RP #### [address] [id number] Protein [Mass/Vol] 7.8 g/dL Normal 6.4 - 8.2 [facility] Comment on above: Performed By: #### T RP #### [address] [id number] Sodium [Moles/Vol] 139 mmol/L Normal 136 - 145 [facility] Comment on above: Performed By: #### T RP #### [address] [id number] Urea nitrogen [Mass/Vol] 16 mg/dL Normal 6 - 23 [facility] Comment on above: Performed By: #### T RP #### [address] [id number] Complete Blood Count + Diffe rentialon 08-22-2022 Basophils/100 WBC (Bld) 0.7 % 0.0 - 2.0 [facility] Work Phone: Erythrocyte distribution width (RBC) [Ratio] 12.4 % See Below [facility] Work Phone: Comment on above: Reference Range: 11. 5 - 14.5 Hematocrit (Bld) [Volume fraction] 42.8 % See Below [facility] Work Phone: Comment on above: Reference Range: 36. 0 - 46.0 Hemoglobin (Bld) [Mass/Vol] 14.6 g/dL See Below [facility] Work Phone: Comment on above: Reference Range: 12. 0 - 16.0 Lymphocytes/100 WBC (Bld) 22.9 % See Below [facility] [place] Work Phone: Comment on above: Reference Range: 13. 0 - 44.0 MCHC (RBC) [Mass/Vol] 34.1 g/dL See Below [facility] [place] Work Phone: Comment on above: Reference Range: 32. 0 - 36.0 MCV (RBC) [Entitic vol] 93 fL 80 - 100 [facility] [place] Work Phone: Monocytes/100 WBC (Bld) 7.7 % 2.0 - 10.0 [facility] Work Phone: Neutrophils/100 WBC (Bld) 67.1 % See Below [facility] [place] Work Phone: Comment on above: Reference Range: 40. 0 - 80.0 Platelets (Bld) [#/Vol] 285 10*3/uL 150 - 450 [facility] [place] Work Phone: RBC (Bld) [#/Vol] 4.58 {x10E12/L} See Below [facility] [place] Work Phone: Comment on above: Reference Range: 4.0 0 - 5.20 WBC (Bld) [#/Vol] 10.4 10*3/uL 4.4 - 11.3 [facility] [place] Work Phone: Complete Blood Count + Differential 0.07 {x10E9/L} See Below [facility] [place] [place] Work Phone: Comment on above: Reference Range: 0.0 0 - 0.10 Complete Blood Count + Differential 0.12 {x10E9/L} See Below [facility] [place] [place] Work Phone: Comment on above: Reference Range: 0.0 0 - 0.70 Complete Blood Count + Differential 0.80 {x10E9/L} See Below [facility] Work Phone: Comment on above: Reference Range: 0.1 0 - 1.00 Complete Blood Count + Differential 2.38 {x10E9/L} See Below [facility] Work Phone: Comment on above: Reference Range: 1.2 0 - 4.80 Complete Blood Count + Differential 7.00 {x10E9/L} See Below [facility] Work Phone: Comment on above: Reference Range: 1.2 0 - 7.70 Complete Blood Count + Differential 1.2 % 0.0 - 6.0 [facility] Work Phone: Complete Blood Count + Differential 0.4 % 0.0 - 0.9 [facility] Work Phone: Comment on above: Immature [...] You may also be contacted by the [facility] to see if any of your close [...] or Naproxen (Aleve) can also be used. Xsdu-ggo-vkygalz cough and cold medicines can be used according to the instructions on the package. Some vcxe-zvt-jhltdzu medicines also contain acetaminophen. Make sure you [...] water are not available, use alcohol-based hand reed or wind instrument repairer. Avoid touching your eyes, nose, and mouth [...] 24 wan (more content not included)... Normal [facility] Electrocardiogram 12 Leadon 08-22-2022 Electrocardiogram 12 Lead Ventricular Rate 80 Atrial Rate 80 QRS Duration 132 Q-T Interval 400 QTC Calculation(Bazett) 461 R Stratford 74 T Stratford -9 QRS Count 14 Q Onset 207 T Offset 407 QTC Fredericia 440 Diagnosis Class Abnormal Diagnosis sinus rhythm with frequent PAC's in a pattern of atrial bigeminy Nonspecific intraventricular block Cannot rule out Anteroseptal infarct , age undetermined T wave abnormality, consider inferior ischemia Abnormal ECG Confirmed by Federico Wing ([id number]) on 08/22/2022 3:25:30 PM Normal [facility] INFLUENZA A/B, COVID 2019 PC R,SYMPTOMATICon 08-22-2022 INFLUENZA A, PCR Not detected Normal Not Detected [facility] Comment on above: Result Comment: Resp iratory virus testing is performed routinely by PCR for Influenza A/B and RSV. Not Detected results do not preclude Influenza A/B or RSV infections since the adequacy of sample collection or low viral burden may impact the clinical sensitivity of this test method. Performed By: #### T [facility] #### [address] [phone] INFLUENZA B, PCR Not detected Normal Not Detected [facility] Comment on above: Result Comment: Resp iratory virus testing is performed routinely by PCR for Influenza A/B and RSV. Not Detected results do not preclude Influenza A/B or RSV infections since the adequacy of sample collection or low viral burden may impact the clinical sensitivity of this test method. Performed By: #### T [facility] #### [address] [id number] SARS-CoV-2 (COVID-19) RNA REYNALDO+probe Ql (Unsp spec) Not detected Normal Not Detected [facility] Comment on above: Result Comment: . This test has received [facility] Emergency Use Authorization (EUA) and has been verified by [facility]. This test is only authorized for the duration of time that circumstances exist to justify the authorization of the emergency use of in vitro diagnostic tests for the detection of SARS-CoV-2 virus and/or diagnosis of COVID-19 infection under section 564(b)(1) of the Act, 21 U.S.C. 360bbb-3(b)(1), unless the authorization is terminated or revoked sooner. [facility] is certified under CLIA-88 as qualified to perform high complexity testing. Testing is performed in the [facility] laboratory located at [address] [place] [address], [facility]. SARS-CoV-2/Flu/RSV Multiplex Test: Fact sheet for providers: https://www.fda.gov/media/820390/download Fact sheet for patients: https://www.fda.gov/media/981262/download Performed By: #### T [facility] #### [address] [phone] Lab Specimen Source Nasal, Nasopharyngeal Normal [facility] Comment on above: Performed By: #### T [facility] #### [address] [id number] INFLUENZA A/B, COVID 2019 PCR,SYMPTOMATIC Not detected See Below -[facility] [place] Work Phone: Comment on above: Reference Range: Not Detected.This test has received FDA Emergency Use Authorization (EUA) and has been verified by [facility]. This test is only authorized for the duration of time that circumstances exist to justify the authorization of the emergency use of in vitro diagnostic tests for the detection of SARS-CoV-2 virus and/or diagnosis of COVID-19 infection under section 564(b)(1) of the Act, 21 U.S.C. 360bbb-3(b)(1), unless the authorization is terminated or revoked sooner. [facility] is certified under CLIA-88 as qualified to perform high complexity testing. Testing is performed in the [facility] laboratory located at [address] [place] [address].SARS-CoV-2/Flu/RSV Multiplex Test: Fact sheet for providers: https://www.fda.gov/media/622760/downloadFact sheet for patients: https://www.fda.gov/media/962319/download Reference Range: Not Detected Respiratory virus testing [...] dye [Mass/Vol] 4.3 g/dL 3.4 - 5.0 [facility] [place] Work Phone: ALP [Catalytic activity/Vol] 80 U/L 33 - 110 [facility] [place] Work Phone: ALT With P-5'-P [Catalytic activity/Vol] 29 U/L 7 - 45 [facility] [place] Work Phone: Comment on above: Patients treated wit h Sulfasalazine may generate falsely decreased results for ALT. Anion gap [Moles/Vol] 13 mmol/L 10 - 20 [facility] [place] Work Phone: AST With P-5'-P [Catalytic activity/Vol] 22 U/L 9 - 39 [facility] [place] Work Phone: Bilirubin [Mass/Vol] 0.4 mg/dL 0.0 - 1.2 [facility] [place] Work Phone: Calcium [Mass/Vol] 9.4 mg/dL 8.6 - 10.3 [facility] [place] Work Phone: Chloride [Moles/Vol] 102 mmol/L 98 - 107 [facility] Work Phone: CO2 [Moles/Vol] 28 mmol/L 21 - 32 [facility] [place] Work Phone: Creatinine [Mass/Vol] 0.93 mg/dL See Below [facility] [place] Work Phone: Comment on above: Reference Range: 0.5 0 - 1.05 Glucose [Mass/Vol] 92 mg/dL 74 - 99 [facility] [place] Work Phone: Potassium [Moles/Vol] 3.8 mmol/L 3.5 - 5.3 [facility] [place] Work Phone: Protein [Mass/Vol] 7.8 g/dL 6.4 - 8.2 [facility] Work Phone: Sodium [Moles/Vol] 139 mmol/L 136 - 145 [facility] Work Phone: Urea nitrogen [Mass/Vol] 16 mg/dL 6 - 23 [facility] Work Phone: Laboratory - Coagulationon 0 08-22-2022 INR Coag (PPP) [Relative time] 1.1 {INR} 0.9 - 1.1 [facility] Work Phone: PT Coag (PPP) [Time] 12.6 s 9.8 - 13.4 [facility] Work Phone: MAGNESIUMon 08-22-2022 Magnesium [Mass/Vol] 2.05 mg/dL Normal 1.60 - 2.40 [facility] Comment on above: Performed By: #### M G #### [address] [id number] Magnesium, Serumon Magnesium [Mass/Vol] 2.05 mg/dL See Below [facility] [place] Work Phone: Comment on above: Reference Range: 1.6 0 - 2.40 No Panel Informationon 08-22 73 {mL/min/1.73m2} >90 [facility] Work Phone: Comment on above: CALCULATIONS OF LINDSEY MATED GFR ARE PERFORMED USING THE 2020 CKD-EPI STUDY REFIT EQUATION WITHOUT THE RACE VARIABLE FOR THE IDMS-TRACEABLE CREATININE METHODS.https://jasn.asnjournals.org/content/early//ASN .7132266579 https://MUSEXPRDWE B01:808 0/musescripts/museweb.dll?R etrieveTestByDateTime?Patie thAA=[id number]&Date= 023&Time=14%3a40%3a33%3a00& TestType=ECG&Site=11&Output Type=PDF&Ext=PDF [facility] [place] Work Phone: sinus rhythm with fr equent PAC's in a pattern of atrial bigeminy [facility] [place] Work Phone: Abnormal [facility] Work Phone: [phone] [facility] Work Phone: [phone] [facility] [place] Work Phone: [phone] [facility] [place] Work Phone: 14 1 [facility] Work Phone: -[phone] 1 [facility] [place] Work Phone: 74 1 [facility] Work Phone: [phone] [facility] Work Phone: [phone] [facility] [place] Work Phone: [phone] [facility] [place] Work Phone: 80 1 [facility] [place] Work Phone: Order Reconciliationon 08-22 Order Reconciliation Page 1 Admission Reconciliation Document Reconciliation Type: ED to Observation requested on behalf of Brian Curran (Physician) done by Brian Curran) ED to Observation - Partial Reconciliation: 22-Aug-2022 17:56 by: Skip Kelly) ED to Observation - AutoLinked: 22-Aug-2022 20:30 by: PSCKaycee Craft (ADMIN) ED to Observation - Reconciliation: 22-Aug-2022 20:44 by: Brian Curran) ED to Observation - Reset to Incomplete: 23-Aug-2022 19:31 by: Brian Curran) ED to Observation - Reconciliation: 23-Aug-2022 19:32 by: Brian Curran) Home MedicationsEnteredLast Dose TakenReconciled with current Order Reconciliation Comment/ Additional Information Aspirin Low Dose 81 orally once a [id number] Aspirin Chewable Tablet, ChewableDOSE = 81 mg [...] milliliter(s) injectable once a day, As Needed [id number] Reviewed and Held ferrous sulfate 200 mg (65 mg elemental iron) oral tablet 2 tab(s) orally once a [id number] Reviewed and Held metoprolol succinate 25 mg oral tablet, extended release 1 tab(s) orally once a [id number] Reviewed and Held Multiple Vitamins oral tablet 1 tab(s) orally once a [id number] Reviewed and Held omeprazole 40 mg oral delayed release capsule 1 cap(s) orally once a day 22-Aug-2022 Pantoprazole Enteric Coated Tablet (PROTONIX)DOSE = 40 mg Oral Dailyomeprazole 40 mg oral delayed release capsule continued as the inpatient order Pantoprazole sertraline 50 mg oral tablet 1 tab(s) orally once a [id number] Sertraline Tablet (ZOLOFT)DOSE = 50 mg Oral Dailysertraline 50 mg oral tablet continued as the inpatient order Sertraline solifenacin 5 mg oral tablet 1 tab(s) orally once a [id number] Reviewed and Held Vitamin D3 1000 intl [...] Every 8 Hours and as Needed Normal [facility] PT/INRon 08-22-2022 PT Coag (PPP) [Time] 12.6 s Normal 9.8 - 13.4 [facility] Comment on above: Performed By: #### T [facility] #### [address] [id number] PT, INR 1.1 Normal 0.9 - 1.1 [facility] Comment on above: Performed By: #### T [facility] #### [address] [id number] Provider Note - ED v3on 03 Provider Note - ED v3 Provider Note: [...] results: Troponin I, High Sensitivity Trending View [id number] 16:27:00 22-Aug-2022 15:09:00 Troponin I, High Sensitivity3 [...] Authorization (EUA) and has been verified by [facility]. This test is only authorized for the duration of time that circumsta Complete Blood Count + Differential 22-Aug-2022 15:09:00 ResultValue White Blood Cell Count 10.4 Red Blood Cell Count 4.58 HGB 14.6 HCT 42.8 MCV 93 MCHC 34.1 PLT 285 RDW-CV 12.4 Neutrophil % 67.1 Immature Granulocytes % 0.4 Lymphocyt (more content not included)... Normal [facility] Radiologyon 08-22-2022 XR Chest Single view Normal MP-N orth [facility] a [place] Work Phone: TROPONIN I, HIGH SENSITIVITY on 08-22-2022 TROPONIN I, HIGH SENSITIVITY 3 ng/L Normal 0 - 13 [facility] Comment on above: Result Comment: . [...] performed using a different testing methodology at [facility] than at other [facility]. Direct result comparisons should only be made within the same method. Performed By: #### T [facility] #### [address] [phone] Tropinin I.cardiac panel High sensitivity method 3 ng/L 0 - 13 [facility] Work Phone: Comment on above: [...] performed using a different testing methodology at [facility] than at other [facility]. Direct result comparisons should only be made within the same method. TROPONIN I, HIGH SENSITIVITY 3 ng/L Normal 0 - 13 [facility] Comment on above: Result Comment: . [...] performed using a different testing methodology at [facility] than at other [facility]. Direct result comparisons should only be made within the same method. Performed By: #### M G #### [address] [phone] TROPONIN I, HIGH SENSITIVITY 3 ng/L Normal 0 - 13 [facility] Comment on above: Result Comment: . [...] performed using a different testing methodology at [facility] than at [facility]. Direct result comparisons should only be made within the same method. Performed By: #### T [facility] #### [address] [id number] Tropinin I.cardiac panel High sensitivity method 3 ng/L 0 - 13 [facility] [place] Work Phone: Comment on above: .Less than [...] performed using a different testing methodology at [facility] than at other [facility]. Direct result comparisons should only be made within the same method. Tropinin I.cardiac panel High sensitivity method 3 ng/L 0 - 13 -[facility] [place] Work Phone: Comment on above: .Less than [...] performed using a different testing methodology at [facility] than at other [facility]. Direct result comparisons should only [...] a pacemaker d/t low HR). Triage Date/Time: 22-Aug-2022 14:46 TIKA: 2 Pain Rating (0-10): 3 = Mild Vital Signs: Temperature: 98.2F ( 36.8C) taken forehead Blood Pressure: 179/87 Mean: Respiratory Rate: 18 Pulse Oximetry: 98% on room air, no respiratory support. Height: 5 feet 0.00 inches. 152.4 CM Weight: 182.9 pounds. Calculated 83.0 kg. (stated) Calculated BMI (kg/m2): 35.736 Calculated BSA (m2) 1.87 Kyle Coma Scale: Best Eye Response: (E4) spontaneous Best Motor Response: (M6) obeys commands Best Verbal Response: (V5) oriented Baylis Score: 15 Allergies: yes Patient has homicidal [...] Past Medical History Reviewedyes Electronic Signatures: Michelle Herrera (ABHISHEK) (Signed 22-Aug-2022 14:49) Entered: Risk Screens, Pain, ABCD, Travel History, Chart Review, Scores, Past Medical History Authored: Quick Triage, Risk Screens, Pain, ABCD, Travel History, Chart Review, Scores, Past Medical History Last Updated: 22-Aug-2022 14:49 by Michelle Herrera (RN) Normal [facility] Office Visit (Cardiology)on 08-18-2022 Follow-up visit [...] Use Screening; Status:Complete; Done: 18Aug2022 Patient Instructions [email or web address] PLEASE BRING ALL MEDICATIONS IN ORIGINAL BOTTLES [...] for the new patient portal platform through [facility]. If you have not received an invite [...] the decision made by me. 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 (more content not included)... Normal [place] Tobacco Screening.on 023 Adult depression screening assessment No [facility] DO Work Phone: Fall risk assessment a) No falls within the last year [facility] [address] DO Work Phone: Tobacco use status CPHS b) No [facility] [address] DO Work Phone: Heart and Vascular Office/Cl inic Noteon 08-08-2022 Heart and Vascular Office/Clinic Note Chief Complaint 4 week f/u History of Present Illness Rasheeda Hanna is a 51 year old female patient of Dr Gonzalez, recently changed care from Dr. Samara Roe, in [place], [place]. She has frequent ventricular ectopy. Normal [...] radial pulse with good extremity perfusion. Procedure [facility]- Dr Gonzalez 07/21/22 Findings LMT: Normal [...] beta blockade. Discussed Sotalol Drug Load at [facility] vs EP referral. Will refer to EP for further work up/management Ordered: [facility] External Ambulatory Referral 2. NSVT (nonsustained ventricular tachycardia) (I47.29: Other ventricular tachycardia) EP referral Ordered: [facility] External Ambulatory Referral Follow-up With When Contact Information Carlos MCMAHON, Skip Katz Within [address] [place] [phone] Additional Instructions: Problem List/Past Medical History Ongoing No qualifying data Historical No qualifying data Procedure/Surgical History Catheterization of left heart (07/14/2022), Carpal tunnel, section, Cholecystectomy, Tubal ligation, Strong tooth. Medications aspirin 81 mg Oral EC [...] Note; Skip Gonzalez MD 07/12/2022 17:01 EST [facility] Comment on above: Result Comment: Elec tronically Signed By: Luna DICKINSON CNP\.br\Date and Time Signed: 08/08/22 11:21 EST Progress Note-Nurseon 2022 Progress Note-Nurse [id number]:127 [facility] Coding Summary.on 08-07-2022 Coding Summary. [id number] Gh0bWw+ PGhlYWQ+HQ9WWMAaN51ytVQfgJ4 HC8jRNU8ILYWLFFECFT1HPV7hbB J2YCgyW8NpsgJr SdpyeEXmVZ39QMc8DDO9uCsrDUt akG7xeIJrJ1y7HeCsBD86fZ52JX ocNRTzRnG9WpVemamymZOx B1hzZkDawIOvSvs+PHRhYmxlIHd uEVHgPSdiTGVjOqKmlMraRJ4iEx 9yZGVyLWNvbGxhcHNlOiBj c4ruCUFgSXsdKD7zvIvuQ7VzcHW 5JZBgv7p2Ym33ySY+JQElOYA2qF efDTgiq648UwAiy1jjMQC6 eIHfTEatPNJ4S20og8R3KGCrMDL nGWQ7mOW1pH8qeJqvkhtrJ2VwbY VyXnV5RDF3oEIvwV0xqUdj vwztxH4vDny+Q55VNM4IYTNRJU6 AGmf7M8OlEecdoSK+SL31ZRRoKD 56zDNtbEBea3svfHa0YaJj HLLaSGD6vJicXYbxp1MvAQPuZ81 dvESur0Y6VMDzzOstqAWfRkQtyK C5xS3mULfxmtdvl5ggkqtn Pbtpk9eurs25bF84C15vGQrkGUT jUZG2QMZsJYBipRoipb5rvN3nOj 8+VTewe7vvt0pjoJl3OfPk SMDukvFcpGyaOIA8g4JtYr39I3E cyDfoz2KbKer7im00xCDkt9X2zV A5DGfjDFLpjO4uDNtfRnS4 RXHeQtMidS87fOCrSBdiGx3mnIb wjEycKC0kODFkgmyyCHSmjW8lLM JdrPEozSwlMO7aQZExysbi g255NoYdEII4UPBozNYiA6SsoT7 jVqKrYIMwRACqX4RfxDNcCOpxL3 27GZdsSwU2CXZqeeJeM2Ty WQLuzHqjLuA3f9L5Mm5Ts5Jevta zLDW9MTdtLVXyOsGkVzVbUpS5L4 EcOne6ACNwbNhnTF8eW9Zg YEEwvvfqfwhvkLX0NFVnONVpyN2 6wMNsYNosYn0xa5W3e249RNTsSV YggI64Yd4aeObiTBOrfHAB gV4nhiqqi5wzegvhIdTwUDDcLNb 7EYa3ZIScxQytWpFgJAR7DpW2EV E5nDTrwC9dpKtkkpyhuF2h Oyc+H33mkU1qBEH5JWS6nkctJTN vrrWxIK21EB03M9JqOjbocNGpnQ U+FGOxbbHajSuyGD8kMmFo p9lee3DcCYykA2NzNMWpWGtpOam 3BZJiZWK7nWC7aH6fAEWdRDmnt2 L4zVN7S8VuzgDdeo7kw3hn TOVfOTnsW25neRCvf5S4RNPtvUQ 3YMZreFdvSmDbaI62Cro+PGNvbG otu6EoJgyuc6zcj4pqwBc1 UbVgVIGdjlFxkZnaKUG9q4IjYh1 2N32jWHibCDYhPMDuMSAyAJQvfM nstt7btD7dAi1+PGNvbCB3 oQN5eV0lZLJpQoZ2GQduC889AqZ naAYoQzzvq7eqt2okcBb5FcQmVB UgykUjvUiyFVC4m9JrDk67 C45uXCrrHZIlJUOwBWHkNXAmjTs ski0qkW7uVh3+EK2cz1xzno32fF 48dHI+MUWeUWX2sXzdWJxu IDFhcI6hUCunYiQ6PXThLnThpS8 1xWFpITpdOy5gsPubvLfzHO6nIE Bduxibg617NnJyh2erTKOl qDJvLRmcSYL3F59xf7F7NORoMKD xCDG8wRE4vB0bjXxytpekkXWluX gkljBqmJwaRFcwYOzbN575 IHRvcDsnPlBhdGllbnQgTmFtZTo 2N9RnTaf3ETFckQklMX8nzTGwBI bhXp0yzVysqEhpWN9gZGUb jestf823YsEoh3asKRRuxOJgKDi cQFP1M94pd8P7KXKhVHWuWQS0uP I3qA1vwAnsfdwezOCiyIiv oqNphKdvDXeoFNukE900QPHpsXx eRkYwueTyFVZouKY9GL98ME30uE Uli4S1yXN7E3ZxTZYozcld qhjgrVL4BYQwTQJwiH80Qa0vuDp lYq8uJKDbSBW8OUSuvKExU8CysX 0eAbTqYJJfOTUkN4IdtPIx CBtxE170QAdxIsA3FLKxadDuC6D eDWBioWavEnP1b1Y8Fq4WJ5O7GE 84UT28yUCpg4G7jSK9M2Tc UXNnlvwmfzffwKN2SXXxUJOyeF4 2Cd5jbSsrNn7rLLQoKIF3LHKvyK PrM6PeyQ3tZkUaKXGeSVEd T9NylLItDIozT650IHmpOcA6ZSO ysdMgW0VlQOEllKknItF3p7G6Yt 2RUXd9RE99AD25sKLzi0J8 jFT3D8DoAFLgzoysqkymvGX3TKR gXXOfaI31Wg3gcLziWz3xNOFqXL Q5EZYyrSMrY9WpjT6bZlGm TQRtYTLzH6JqlDRtOYbsT318WFs uHhM2FTFslmHzX6YpPVPuoBgdDr Q4q4N8Dp8YDUNmBN03VPF8 oPE6ZS33BV57F2SpHaimfXMttAI +PHRhYmxlIHdpZHRoPScxMDAlJy UnyGzlED6rSx5oEOSlBRBp pQozqZNhBrHzr3paIYXxCRlpKU1 auQcnJ7RuhQI5VEDax9e1Fp86K9 0gS5OzqFK+HLYprWL3zSZ2 mZ9eSkWtBqV4GDeuX617NiBzqLX qMoqvz9xbs9sxyEo0GqV3VXWrpx AcwXzxRMV8j5ZvJt01D53y IHdpZHRoPSIxNSUiIHZhbGlnbj0 zvD8wMq6+HKOsaDX9xIL5yE9sCi MkVeK3DBsoO691AaPdoWMw Tfzhs7hyq2apmTc6LwXwRCIsgyM woZeyCDD7e4WzPh31P4EpfJegj5 HdIzg2oe19eRInw1S9wVZ4 G6UlIZMvpegtzLDwkBylKJ3kYAV qslijZPVhdK3kODBpC9h6MaXxLt S0ZQcgO2RoqzZ4SQBvqPVe IEfzLFL0C87ej7X6VLJvXVApKAF 1gZX7qQ4uaPfvnxunoZDhsLcvua MhvSjwAPtvCLjvL168RRYm ySytPWCyqC7lVUPgoAApzAklGT6 mSPAajffjSj3IM0rIWnrbCRATQV EgSjwvdGQ+IIIwFCJ9eNvx GZtcOLAfzL8pBJYwL6d8MpTvPtK 5MJivN5WhSEFzwkkdGp00bR6oRl SiPrB0CAocA0NdtbX4BWTp eCFpDCrvLGH9B73oh8K4NXExMSJ aERP2qJW7dV6joAhhxzumsVBkfA tukdRmaEhxQOqdLStlU110 OZLraKphXxV3YvQ3GlH6Gbv0I1X pOsf4RMYjkYbcHP3hvMYuJMuyHh 3grTfiuAixBO6wYGMqdogl KSJwaG8hCMUzzOFdkHquXU0hDOF cmtzvj558CpFgVUO3VILxqBQaW2 VqlL8nQoNmNXNhJTMjF8Od kIOlYOsjR208ULvoHiX9ULUpfhW fE8NwTZEnkIqwSlL8g4D8Qd28Qf BZZWFyczwvdGQ+PHRkIHN0 iAtgERvqGOIshF3gPRJzP4p7GpZ jBqB9FTfcQ3ObDVFevxcoFf61iL 5aCbVkGxR8OLnsT7GjppC2 FDJshRKkXPhhGYF0L30us9U8XWM lKFYtZGN4dHW5iS1dqOxqpdczbP VmdDsgdmVydGljYWwtYWxp R548CQVkcZydIfMbmRTkVSwkaKK +TMIfLVF1cEtbEAcbVMXexJ7qAV YsA0o0WmVwMzI1GOmtY7Eg DTWgyxvdUx15yD4aEsXzRuR3MOx wG7RkydL6AGXxaSHfNTuuDKJ6G7 2lp3M1BYSnEURiYUW3sWC4 gL0fkIqyufvebPBtqFjsfwCgqHo yBRxnZZwoX814WDXvvIcrCu41zN WrbXfnznD3O3NoRqwxoTV+ UM85HYEoQB22jTTzeSDgl0zwaVi 0CoSjKHGrIMM2aDyfWZogg4ZhLV YaP05voIPgf1D1OMEazKof iJHsIkIvfZH0vN6jZSiaxsksh4p zkyqqRocse0jnwd24iK11E43eMY dpZHRoPSIzMCUiIHZhbGln fw5ryI9lZr5+GTAzsSP6yZR9gF1 kAuGdJrK4ZXkqK782FdPfaBPfAc jik4jcm7aouPg1RlKfFWPz vdDvuUsqQPT5m8XoIj38K61vTPu pCYLdZWDfJFIlUEAsdAokrn0hgO 9wIi8+IU2le4zesz93dB46 dHI+XZYyMPA6tQqnCLsxXKXldF7 qTGpdFyU8QJQkXdPqeC26aPKjJA fkEe6uxBtdxYcnZY7fCRTi daxyx868TfNho8jmPDJmvLOoYBy mFOM6Q62rz5F0DNDqRPIlSVB6fY W7gE4aiMtfrfibdUCceZin cuIqyYicXZxwVFdaL630MIOzrVc lVaQboKLfE9deucWXQN5cOjghxD Q+INGoDVR8mCtcJDtuZBVz xM7dGTMrK2k1HkHuClZ7JLdrT8S pykQ2MEDxrCEmSUNziEKWbR0mwr bvy9rcjiqoVmHuULMiHIs3 ACc2XXGgyQzsKzRtFOP4NzE0UUD 2rSRteM4xdChcqncwtJ9vWfc+Rk lOOjwvdGQ+LBBlVWB3iDji PUbrGJJnbH5tNLScB7g7HgWhEcE 9PGjnR1KnhdH5XEZbmRVjTYFylQ PDtV4eumdjo2rxhmnnDxZy NDNgPNf5XIe4FKZduDkuWkXzMWA 1WrW1YLN9iTUarA8pjTqlffzxbJ 9wOyc+TVJOOjwvdGQ+PHRk NHZ9fMiiWCdgKPJlaN2lUSCkW9d 9YoRsQvP4JYbsF1ZxavJ0TMLntX YwLRYcxJJBtX5vryzbp0dz qtrrXpMgZQIyJMi1TKh8GBVoxXj gJaBpTIG1EhI8DHM6xWLcoP1cfY nvbuqcpW9nHoo+QDS5ORH3 CR55LI07N7AyKsvjgJQcyIL+PHR hYmxlIHdpZHRoPScxMDAlJyBzdH giNE5uAj2fYKGaIUKlvFyn cHNl (more content not included)... [facility] Consent for Treatmenton 07-20 Consent for Treatment [id number]#1.00CD:127 Normal [facility] Coding Summary.on 07-24-2022 Coding Summary. CD:[id number] Gh0bWw+ PGhlYWQ+PF4RHHAkE46mqWLrcI7 WV4rTBY0THZDDOXQAWK8FNS4dbQ X4VFwqT1NqsvOu PbfsaTFyHF56WGw4ISU0sZtvJAl taS6mbNOzX4p9ApHeCD36eR93IG awBWHvIaV2SjKoiqawlFRu P1jzXbAudZFjUzy+PHRhYmxlIHd fNRJqFIogTVVjZzToxKxaMZ7kFr 9yZGVyLWNvbGxhcHNlOiBj c7tyDDIpTDrrCW8xdWxtS4GpuOT 1RFChl6p8Iw24wAD+IVElWQF1oK rbGUtsy922OjOpr7oaGZK7 eQFvLQjjTPO1S34jj5A9DWNbSJD oUCI1kZR7dT1baJdzjstiY7LutO QdUyJ9CEO1yVChdI5ocVtv gywfqQ0zIwc+S97KMC1VMWYYOV2 MUwu0G9QpUtcmiTM+LB17CDIrSW 36zZCcgZMfc9wxnVu5GcRy IHGtGLL6gBcjGDzwi0RzGTTpW61 eyJZxz7E1ZHMxnKvkuLIuVsStqX F7bZ6aHVijfpdpd5ppcnpj Ojgrv9jhgz64tC83W82bKJuiQMS wIAT1JQLxHKSrzHreul1ahD1pUi 8+EZnmf8fgb1bnwYh6ZwMl NYFxmeTstJueTNW1s9PpZr90O5P qzYqow8WrRwq6rh25uQGxo2T9hS A2LHboBLXiwA1dLBfaImG6 BZFsHaAfzY96qSLzQGipSp5sgJk cpZvfOQ6pFVXqpmydOIIbrE9vWE DckOHdbGmePQ3oZKFupqvw d406CzNqGTS2JLWlsJCbM6EonU8 tLqHvCWNwBGAmJ8DheDAeHQamE0 24VCltVdQ3OHIiksVhP1Ud HVSxqIrjHeD5s3N1Yi4Zy9Jasbn wHBM6MLrsTPYmFdD0FgRgTnJ8S7 XkGfl2YZIapMshGT4qN6Oh XJMldheokeyfuZJ3YQQoXMUkaJ8 1vMEbHVirDb8vy8I3u217PXBmKT UloN85Rm5ohAvtVNHueULX rI5kxrbpi3zomtoiUrSxPPQwGRo 4ENy5NHVkpCgkNfHrDRB2RkO1WI I5tRQfkS6vuEgxnxqvhI2i Oyc+T76kaZ4vFAQ8KMX6sfxlDMT wmvRaCJ15SC82Q7XwElxbnBBjfZ U+IRAncxXlnXkhRU4sBdYt n3pov9KkGQzrX2UqJSVhDXupSke 0ZQIaSHN5lAU9oE0aUIQrQBkfm8 L6pAB7E6HkwuEzey5sp2dv JHExKWigP96qqGQyf7D7SGTogDB 9RUJbqUynMzWroY55Htb+PGNvbG nqp3CzKrzos4hat1wyaVq4 WdCdOCXeilTxvOdsODO6d6XpWv2 0N05mUSbqOKDwDZQqCWGlPGEeuS ojju6guT6bWf4+PGNvbCB3 tET4rP2dZUErSfP7CCleP481AlG xqYDrKgrja8cxy5snqCk0BxGpOO GiapGxoCzqQVI8p3GtMh94 B20nUUifEPZvNVEyJKXiEJSxbEk zqe9zxA1mFc4+ES9ga1kbmj04oN 48dHI+CNWcYZS8cYzsVEbb YGUexP7tMNfcVmT4AGXzHiIvsS4 3gXZpGAowUt0omChtbUfbHQ1wCK Fyhqtxj179IzXon7ngJDVb cDHiLAtmYAT1M12om5H4EIJqQGV lANA1wFL1uF7uqSjhdslhbQNhgI rhqnFwhGdbFXaiMDsmP372 IHRvcDsnPlBhdGllbnQgTmFtZTo 1F9UfQqb5BECsdBagIO8rrAPuXI knKv7yvUdqmBbmQH6zZZTd uztmc823YyLao7mtJJPonLPsUAa bAST9L92eb1U6NLXaBVXaRKP1dP Z3tZ3ysJinkcpdrZKfqMwm kiEnnCzpIXbbGBddK513UHNyvBi lTlEwgdUrRQHeoES3SK19SC30yM Kcq1W9pZH6B2DbZGVmioyf zttlzDJ4FEYoKDQkxQ58Kl8umKx yYp2uXQJvSOL1TCHstFEeV5PwxQ 9zMlPpFJWlDMWdI3KnhAUz TZkaE647QOlrBeH6HSIywvBcM3P lTNHfxCmmVdU4n6I0Ws6DY8U1NW 53YA97rKCvf6L2qYY1P5Wx VWZzmzskmmtmpOX0URGhQFVmmG6 2Gd4iwUukTx6qOXUeZXB6SPBfyA IeH0CfbV8kFsOnTLXrHEGr A0ObpLHqZNpeM927DIygUbQ8REN dbzNzD0FxYSPpbJrnHyC6r9T9Pf 6VTHi7AP18YI93wMDvp9C8 cVG2Y9IjHDKjoolikytyjFD7RPF iEXIvvG02Zp5snYcsJg6tMCBiKS G0GMPpbSCdB8YqkG4jJwRk LNJuKFJhQ8OurTKqIEpbQ666TNm aNqG6ZVGbcqFjE9JoPXFthZfcEf V9c1R7Jl7ZASHqFQ40ODM1 kVR8QS78TF25L7EhEyyopTPmrZK +PHRhYmxlIHdpZHRoPScxMDAlJy OmbCasLR2lYa3oRFHdFAGx hOlieUBnZdRnk9jzTIOrCRcjEC5 fsWmvE5EulBN7TIBjc6w0Cf09X8 5aJ6VieMS+HEGnlBM2fDJ6 wP2rFlXtDwK7BDyqS231DiMglZQ sWhhyw6vct8cccCu2YqS6BLCtme FshXbzTGI0r1VuOe83P00o IHdpZHRoPSIxNSUiIHZhbGlnbj0 haN2rAd1+HVChgJZ0oBE3gN3lRi GrWmZ7RHxzF079ZoOblEPh Apmnh6fen6rlqZz6NiLpSVKklwJ unFlxDVL0n1DeZb89P3AzfUnck7 WwBqa1jb20sMQue6S6bNG5 A0BbEBTivbzrgYEzhMonUG5qLIZ vjxjbOHOceH3iIQTdH2p1JgQlZb P8WGrrW0SiihD2YVKfbQKn BLwuSGK4N89ce3M7LHXhMJGyJHO 4lND5cJ3twBckblphuFPprXeizf KkgBzjGDvlSMwjH312CGDl gZrqEGUapY6cZCEppKYtvXxcZN8 sVEBptgotFf7SL3dSEalrELOESB EgSjwvdGQ+BOUxFIU5kEoh KKefBFIceH7nHPDiG8x7IiSqFwG 8NPjpD2AeJNUpfiehVj78jI0zBv IqLdQ5BWjcE9RciiV6KXCx nLBfOWklOGS5N26zz4F4THAqJIH kOEY8zEB6nM4ikCadzqwugOJzuB zorgIatNkrBLuqSOqrC024 WGZfcZbdNlO2GzQ9HbJ3Vtb0S3R hTtr5DDQybAcnNG1jeFJzUYmePf 5hvWujzYanAA5eWXItdcca FZIfbT7fJKEnqSSsjSpySW9zFNV sjdgkx009BeWxCRP7AVKliKHsS2 UopR3qFmHjBXSdFSFsC8Yx mBFuWAwvI616ISudSdE8UDKpgsT sH7DaHXLpoFdgFfC1u4Z0Un90Qs BZZWFyczwvdGQ+PHRkIHN0 nTiqZIhcWARayT1cJCWiR0g5CiG iDsL4FDpiK5UcAZJrycwfDj67dT 5nSwYbJiH8BGctF0ArmaQ2 ASXzmXRkGSyhILX2V30ef8U5UDF rUELaURN0wKJ5eX2vhIbkdyxsgW VmdDsgdmVydGljYWwtYWxp X979ZYJauVycSlGclWPdMPcspDS +UXJkUFN9uCtiDEwzTUFewR7zRX TqS2n3NfZjUdE5ALjtD7Ww QKIspgkbFg03wX4lDsTqFiQ0YYa xX0XbfnZ4WWBbjLCtNXjjGAL8S4 2et0K4JHTxPXRmSGT2sNL4 bE1muUubpzoslGTffCoqclHdtFq pXMxjWDebV009LWZevDjmSbIuUx QuEVXxmttqY1UgTEOMYJnn S5LbH1FvsAalcXR+RA15hq44L5Q hXofqPxg9BWTkAIZ6gSO1nM7kVB LpVQozf2P9fNF7N4OitkCr nz0zb1vtJPHjHXzbJ29pgEDks1F 7HWVjwOU5HRKfzTdkDqBfnV85Rk c+RTXnlRced2NvPbvuc6ln t5gezOu7WiQjNTWgqjEqhTerIXT 6s8DmJl30L32pRAarZBSiMWRhMD UfSIWyaYncyx4xcP9kMe6+ FDNptBF5hGE6rQ6kKmRwZrD9OWd xE714CbDhcATgHlrvs3sqc4aydP e3YeRtZINaapDmoDqlVRQ9 l5KtLa55X6TydLjhq6BpKjq1ld3 9sIXaf8R4aYX4Q5AiVJGaiwxhnI FkoYwoCZ9kPVTeuwikCRPz yL1aZRHjU8w1NmJfLpD9IBreL2F lxbF5HWVdoWSxKLLqyAIMdF8sgz hge0fleoluEfKaMRGqJUk4 ECn3JIIbtWlkErSsOXR9KyT0AEK 4vHAexI8deKuzxhhkuW4dUsd+UG u4c7rahKFlLZ1yqPD1CM37 PX95oNLjd8Z5eXZ7P3PrOPRoapk rbzsesRA1OLZdZASzgQ16Tw3neA ppYt4xRBBvTEU7AYGiuAFb O6MtjA7pOeAhCWIfRHYfA5DvbYQ gUWiuK576WSnuXeV7ECKdrkScX3 JsCOGvbXnsEdG5v8S6Nd7M WL20XN38AT18xWMjt8Q2vKB6H7L uDPGmbuafxktqlCY0FMSvXMRqwL 53Rv1ksIzzPg9rUMSkOTB0 OPHjpYFfB2NonX6vRjTpYBGhRKC gN6LtkZQhDNjsL988EKjuMgS9LS MblfXeT5PvWXMcuXkvEbP5 b9B7Bo2VTk86MA10WO46yRZdy8O 3hRS8K4JhBDDcdurbomrilHY3FW IkAQAnhC04Fi8syLwdEp9s FDYbPEL0RMPqtBZbP8SqwL4tYkU cBKNpZGFuM7AyeYCnPVrvK031TK kuVjX0ZVLudrVqC1FjDJKc jDkwLqA5b2Q4Up7LCFdodlm7S6W kPjwvdHI+RG50VHUmLJ12qUXvmV Spz8ppiUo8DrRuXJPzGLO4 eWxl (more content not included)... [facility] Operative Reporton 3 Operative Report Indication for [...] consent the patient was brought to the [facility] where sterile prep and drape were administered in usual fashion. Anesthesia was obtained in the right wrist with lidocaine after administration of conscious sedation. A 5/6 slender Terumo sheath was placed in the right radial artery without complication. Nitroglycerin and nicardipine were given via the sheath and heparin was given intravenously. A 5 Croatian JACKE catheter was advanced and selectively engaged [...] end of the procedure without complication. [facility] Comment on above: Result Comment: Elec tronically Signed By: Carlos MCMAHON, Skip Katz\.br\Date and Time Signed: 07/21/22 13:53 EST Consent for Procedure/Surger yon 01-31-2023 Consent for Procedure/Surgery [id number]#1.00CD:127 Normal [facility] Discharge Instructionson Discharge Instructions [id number]#1.00CD:127 Normal [facility] Outside Labson 07-18-2022 Outside Labs [id number]#1.00CD:127 Normal [facility] Cardiovascular Reporton 06-19 Cardiovascular Report [id number]#2.00CD:127 [facility] Consent for Treatmenton 06-19 Consent for Treatment [id number]#1.00CD:127 Normal [facility] Inpatient Clinical Summaryon 07-14-2022 Inpatient Clinical Summary [place] [id number] Clinical Summary Person Information: Name: RASHEEDA HANNA Age: 51 Years : 1970 Sex: Female PCP: Kayla Dnet DO Marital Status: Race: White Ethnicity: Non- or Language: Telugu Visit Id: Visit Reason: R07.9 I20.0 Speciality: Acuity: Enc Type: Ambulatory/Same Day Surgery Med Service: Cardiovascular Arrival: 07/14/2022 08:30:25 Discharge: Dispo Type: Address: [address] [place] [address] [id number] Provider Notes: Diagnosis: Problems No Problems Documented [...] Gonzalez MD Follow up: Type Location Start [facility] Cardiology Follow Up (FT) FT.Cardiology Clinic 08/10/2022 11:00 AM 08/10/2022 11:15 AM Confirmed Patient Education Information: CV - Cardiovascular Discharge Instructions (CUSTOM) [facility] Inpatient Patient Summaryon 07-14-2022 Inpatient Patient Summary [place] [id number] Patient Discharge Instructions PERSON INFORMATION Name: RASHEEDA [...] a nearby participating provider. Type Location Start [facility] Cardiology Follow Up (FT) FT.Cardiology Clinic 08/10/2022 [...] Mouth every day. Refills: 3. Last Dose: Ne xt Dose: metoprolol (metoprolol 25 mg ER Tab) 1 Tablets By Mouth every day. Refills: 3. Last Dose: Ne xt Dose: omeprazole (omeprazole 40 mg Cap-DR) 1 Capsules By Mouth every day. Last Dose: Ne xt Dose: sertraline (sertraline 50 mg Tab) 1 Tablets By Mouth every day. Last Dose: Ne xt Dose: solifenacin (Vesicare 5 mg Tab) 1 Tablets By Mouth every day. Last Dose: Ne xt Dose: Comment: MEDICATION LIST PROVIDED FOR YOU [...] By Mouth every day. Pharmacy Information: Other: [facility] santana Clarke Comment: PATIENT EDUCATION INFORMATION Instructions: [place], [place] CARDIOVASCULAR DISCHARGE INSTRUCTIONS Diet: ? Resume [...] in s (more content not included)... [facility] Patient Education - Texton 0 07-14-2022 Patient Education - Text [place], [place] CARDIOVASCULAR DISCHARGE INSTRUCTIONS Diet: ? Resume [...] you are interested in smoking cessation, contact [facility] at [phone], ext. [phone]. ? In the event you are unable to reach your physician, please call [facility] at [phone] and the air control electronics operator will assist you. Seek Immediate Medical Care for: ? Bleeding: Apply continuous pressure to the site and Call 911. ? Should the arm or leg become cold, numb, blue or white call your physician immediately. ? Signs of infection are redness, warmth, swelling, increased tenderness, colored drainage, fever or chills ? Chest pain ? Normal [facility] Echocardiographyon Echocardiography [id number]#1.00CD:127 Normal [facility] Echocardiography [id number]#1.00CD:127 Normal [facility] Heart and Vascular Office/Cl inic Noteon 07-13-2022 Heart and Vascular Office/Clinic Note Chief Complaint New Patient Arrhythmias History of Present Illness HPI: Rasheeda Hanna presents today to establish care. She is accompanied by an adult male. In 2020, the patient began experiencing PVCs and was seen by a thread reeler, Dr. Samara Roe, in [place], [place]. She underwent a stress test, echocardiogram, and EKG. She was informed that she had nuisance beats and was advised not to worry about it. Approximately 2 weeks ago, she began to experience chest pain radiating into her shoulders, up into her neck, and between her shoulder blades. She was seen at [facility] and spent the night there. An [...] patient or guardian consented to allow [employer] to record this visit. HENRIETTA greenhouse specialist and provider reviewed before signing. HENRIETTA: Nicol Izaguirre. Follow-up No qualifying data available Problem List/Past Medical History Ongoing No qualifying data Historical No qualifying data Procedure/Surgical History Carpal tunnel, section, Cholecystectomy, Tubal ligation, Strong tooth. Medications aspirin 81 mg Oral EC [...] Brother. Primary malignant neoplasm of lung: Mother. [facility] Comment on above: Result Comment: Elec tronically Signed By: Carlos MCMAHON, Skip Katz\.br\Date and Time Signed: 07/13/22 14:51 EST\.br\Electronically Co-Signed By: Nicol Izaguirre\.br\Date and Time Co-Signed: 07/12/22 17:03 EST Outside Cardiovascularon Outside Cardiovascular [id number]#1.00CD:127 [facility] Outside EDon 07-13-2022 Outside ED [id number]#1.00CD:127 [facility] Outside HPon 07-13-2022 Outside HP [id number]#1.00CD:127 [facility] Outside Labson 01-26-2023 Outside Labs [id number]#1.00CD:127 Normal [facility] Outside Radiologyon 07-13-19 Outside Radiology [id number]#1.00CD:127 Normal [facility] Physician Consultation Noteo n 07-13-2022 Physician Consultation Note [id number]#1.00CD:127 Normal [facility] Pre-Certification Formon Pre-Certification Form [id number]#1.00CD:127 Normal [facility] Consent for Treatmenton 06-19 Consent for Treatment [id number]#1.00CD:127 Normal [facility] Referrals Officeon 3 Referrals Office [id number]#1.00CD:127 Normal [facility] CARDIAC ELIA 3-6on 3 CK [Catalytic activity/Vol] 110 U/L Normal 26-192 [facility] Comment on above: Performed By: #### B JASBIR, MG #### [facility] [address] [place] [address] [address] Betsy Velazquez CK.MB [Mass/Vol] 1.74 ng/mL Normal <=3.[address] [facility] Comment on above: Performed By: #### B JASBIR, MG #### [facility] [address] [place] [address] [address] Betsy Velazquez HSTROP 6.3 pg/mL Normal 4.0-51.3 [facility] Comment on above: Result Comment: CUT- OFF POINTS HAVE BEEN ESTABLISHED BASED ON THE FOURTH UNIVERSAL DEFINITIONS OF MYOCARDIAL INFARCTION. THE UPPER REFERENCE LIMIT (URL) OF TROPONIN, DEFINED THE 99TH PERCENTILE OF cTnI DISTRIBUTION IN A REFERENCE POPULATION, HAS BEEN CONFIRMED THE DECISION THRESHOLD FOR [place] DIAGNOSIS. Performed By: #### B JASBIR, MG #### [facility] [address] [place] [address] [address] Betsy Velazquez CK [Catalytic activity/Vol] 123 U/L Normal 26-[address] [facility] Comment on above: Performed By: #### C MREP #### [facility] [address] [place] [address] Dr. Betsy Velazquez CK.MB [Mass/Vol] 1.90 ng/mL Normal <=3.[address] [facility] Comment on above: Performed By: #### C MREP #### [facility] [address] [place] [address] Dr. Betsy Velazquez HSTROP 5.9 pg/mL Normal 4.0-51.[address] [facility] Comment on above: Result Comment: CUT- OFF POINTS HAVE BEEN ESTABLISHED BASED ON THE FOURTH UNIVERSAL DEFINITIONS OF MYOCARDIAL INFARCTION. THE UPPER REFERENCE LIMIT (URL) OF TROPONIN, DEFINED THE 99TH PERCENTILE OF cTnI DISTRIBUTION IN A REFERENCE POPULATION, HAS BEEN CONFIRMED THE DECISION THRESHOLD FOR FL DIAGNOSIS. Performed By: #### C MREP #### [facility] [address] [place] [address] Dr. Betsy Velazquez CBC AUTO DIFFon 06-29-2022 BASO # 0.1 103/ul Normal 0.0-0.1 [facility] Comment on above: Performed By: #### C BC #### [facility] [address] [place] [address] Dr. Betsy Velazquez Basophils/100 WBC (Bld) 0.7 % Normal 0.2-2.0 [facility] Comment on above: Performed By: #### C BC #### [facility] [address] [place] [address] Dr. Betsy Velazquez EO # 0.1 103/ul Normal 0.0-0.[address] [facility] Comment on above: Performed By: #### C BC #### [facility] [address] [place] [address] Dr. Betsy Velazquez Eosinophils/100 WBC (Bld) 1.4 % Normal 0.9-7.[address] [facility] Comment on above: Performed By: #### C BC #### [facility] [address] [place] [address] Dr. Betsy Velazquez Erythrocyte distribution width (RBC) [Ratio] 12.8 % Normal 11.0-15.0 [facility] Comment on above: Performed By: #### C BC #### [facility] [address] [place] [address] Dr. Betsy Velazquez Hematocrit (Bld) [Volume fraction] 41.4 % Normal 36.0-48.0 [facility] Comment on above: Performed By: #### C BC #### [facility] [address] [place] [address] Dr. Betsy Velazquez Hemoglobin (Bld) [Mass/Vol] 13.4 g/dL Normal 12.0-16.0 [facility] Comment on above: Performed By: #### C BC #### [facility] [address] [place] [address] Dr. Betsy Velazquez IG # 0.04 10e3/ul Critically high 0.00-0.03 [facility] Comment on above: Performed By: #### C BC #### [facility] [address] [place] [address] Dr. Betsy Velazquez IG % 0.4 % Normal 0.0-0.5 [facility] Comment on above: Performed By: #### C BC #### [facility] [address] [place] [address] Dr. Betsy Velazquez LYMPH # 2.6 103/ul Normal 1.2-3.8 [facility] Comment on above: Performed By: #### C BC #### [facility] [address] [place] [address] Dr. Betsy Velazquez Lymphocytes/100 WBC (Bld) 26.5 % Normal 20.5-60.0 [facility] Comment on above: Performed By: #### C BC #### [facility] [address] [place] [address] Dr. Betsy Velazquez MANUAL DIFF REQ NO Normal [facility] Comment on above: Performed By: #### C BC #### [facility] [address] [place] [address] Dr. Betsy Velazquez MCH (RBC) [Entitic mass] 31.5 pg Normal 26.7-34.0 [facility] Comment on above: Performed By: #### C BC #### [facility] [address] [place] [address] Dr. Betsy Velazquez MCHC (RBC) [Mass/Vol] 32.4 g/dL Normal 29.9-35.2 [facility] Comment on above: Performed By: #### C BC #### [facility] [address] [place] [address] Dr. Betsy Velazquez MCV (RBC) [Entitic vol] 97.2 fL Normal 81.0-99.0 [facility] Comment on above: Performed By: #### C BC #### [facility] [address] [place] [address] Dr. Betsy Velazquez MONO # 0.8 103/ul Normal 0.3-0.8 [facility] Comment on above: Performed By: #### C BC #### [facility] [address] [place] [address] Dr. Betsy Velazquez Monocytes/100 WBC (Bld) 7.6 % Normal 1.7-12.0 [facility] Comment on above: Performed By: #### C BC #### [facility] [address] [place] [address] Dr. Betsy Velazquez NEUT # 6.3 103/ul Normal 1.4-6.5 [facility] Comment on above: Performed By: #### C BC #### [facility] [address] [place] [address] Dr. Betsy Velazquez Neutrophils/100 WBC (Bld) 63.4 % Normal 43.0-75.[address] [facility] Comment on above: Performed By: #### C BC #### [facility] [address] [place] [address] Dr. Betsy Velazquez Platelet mean volume (Bld) [Entitic vol] 11.3 fL Normal 9.5-13.5 [facility] Comment on above: Performed By: #### C BC #### [facility] [address] [place] [address] Dr. Betsy Velazquez PLT 258 103/ul Normal 150-450 [facility] Comment on above: Performed By: #### C BC #### [facility] [address] [place], [place] [address] Dr. Betsy Velazquez RBC 4.26 106/ul Normal 4.20-5.40 [facility] Comment on above: Performed By: #### C BC #### [facility] [address] [place], [place] [address] Dr. Betsy Velazquez WBC 10.0 103/ul Normal 4.0-11.0 [facility] Comment on above: Performed By: #### C BC #### [facility] [address] [place], [place] [address] Dr. Betsy Velazquez Coding Summary.on 06-29-2022 Coding Summary. CD:[id number] Gh0bWw+ PGhlYWQ+HG5DRRKeM96cjSMaeJ6 EI1jGTS3UHSDKYERMTY2ESO9amD Y3JCriX5BgpxFa OxvgbNFoNT38OHc6UTZ2jSxtSRn xeW7qeNTtL4m3NwGhAL46oE04CR exMCNcBvT6UaEjgfhaaKHw E2llDyXhzIIxYtp+PHRhYmxlIHd iULOsELljRDRrVqDroQmrZF8xKe 9yZGVyLWNvbGxhcHNlOiBj t8wmMZDwJPjhBH7alRwyY7YvtQS 9XPLcb9h7Jl92jQT+SSTiGLU6sU nuXEldy539PyRtm6clNVE2 eKTsKDehNLQ5H63ze6J1MWPnRJF vUHP2lYU1iW7tfZynzwusP8BpdE NaPbQ2FTV9hBLsaB7adIhp pxlecD9iFdv+W86VVM2QBRTLFY4 ZDjg4H4VzVyakcPV+OJ33LWVeRM 87oUHdkQFka6iuqBj7PkDk CPZlRSJ7sFkgWZrjw4HjIBIdM09 mdYKmz7X0EXEbyXkevEDxXwOneU Z6bU8lEHglkqugf5edhrjr Sitmj7xhbn36tV62P62uOMkaCUH nFLB0CAFiKANgfYqsgl8dmQ2yUl 8+XMzrs5lxh3gnlVx9LcJq QVWskrKkwZjpOKY2u8HkNo91K4A yhTzqt9CeSka1to37oTPga6D7pT D4BQkhQZSfrJ1iZKkfHiF3 VNPtQfTmiC98rOQqVNrgIj6bvMe daAthEF8wAUJmkbmsDWUlmV8eDE NwxESuiAisCE2nJIJckdrg z335DqLcLBL0YWTdaLDxK8CgyY1 uJiNxYPYvMYPcL2RuiRRlYLyyB0 20FNkgXtF2GODiyeLqE1Cf MVLskSauTuN3k6Z6Tf2Xv9Cqfxx lALE4EOghMXLcMxBtOsKyObW4Z2 CmAat0JSUdcRlcWK8dQ0Ui GVKlsduutzjmsFM5XAUfRIIajA9 6eYGoGFgwLu9hd4T1m874OUOaWA YxxI83Vb4djSufGDZhmEXI aV8uoevcz2bjrwgdEaSqPUSjWCj 3XUr6MDZlbNhzTgVxMVO7FpB1MK C9dBVvdL3vdCipsywdrC9g Oyc+J76psE3jHTZ9VZA1jhjqFZA rjeEeJP48RN15Y7RrYhwkmWXmnV U+BURjguAmvRgkBK5hWlMi f3nie9VwMGvjN4EyRHAqNMriTzx 4MIPoIZX7nVY5fP5cRNPlJNxum7 T9tYL9D2XlzuQlqe0yp9nb EZBpZQtfV46dsTHxd3E2BXIihFN 6LLWplNoiPtCwkQ30Yyj+PGNvbG gnh0SxQkowo9kxj5iqdPi4 BrAfQIRnlbYutKgjURW7k1ScLp5 8P35nJSorIQCzOADwHKXcDVWkhC gebj1sxG1uWc4+PGNvbCB3 zOC0gO4mEWVvUrX8RXkeX320GhR lrDNdCzcen5ugg1oqnJc2OqOjRQ CygaHeaItdYMH1k2DlTn79 A10xPIjsPOQxBFPjWZKhQQUwwXj jjg9lrQ8hUv3+UQ5gt6whsj81oK 48dHI+WTPgEMQ8rXncMTwg LMWisQ1qYTntVrM0OTSiZpNwiA3 7oQQpZYrfFm6qgOvalVzrUN0sHM Mgjplpy204JsPhf8yuLCCk kFYdDMwmANN8E57bn7I4YMWrZCJ lNYN5nRI0dM1owOcveeadeMXibK igqjHtiQraQBpoRZwiH350 IHRvcDsnPlBhdGllbnQgTmFtZTo 0F7DnXcq7JQCsvQduGT1klGVrIZ uxHp3ddNmyzAtmOD2wEPZk ebxvr107JqPhx3bsJWVyhMYhCNa jDMM7J26ix5W4HXDeVFDsPSQ8uE F6pY4pxRloviussPKglUcc caJyjLrwVNioMUlkA942KYDogBh wKyBqzkOzJEJotIR4NB44PQ44rJ Pzj3E8rPF2J5AtKLDdmvbx szytsWK0SZZdJAKsqR69Kk1iwEi iWm5uMQCsWXR0PALaoAIuX6TtrE 8sUkBaIRHiVPQkN5HniTVf ROnkK764ZDhrWsV1UPRzncKcW1J cZGElbOwvSmS6p7W3Rt6JQ7N8ZT 33KH83pRIen9K5jZE9G6Gz SXDomflowdgxlLF1WLMyDNEnjW0 7Pf9pjZwpOh6wCUSiXDP4JUYvzZ JwD3QgsW2nOxWhZGWaYKCk K5TjrXJzTOguN390EBacHiJ5ITX lnjReB6AeIJAimYnxAsG8e5J3Ev 9ZFKf7QM07PY88mGMnj4Y9 gEI3K4UkFCTjvwrxwoemkCR1ITN kBTTxeR26It5iaYqqVo9jYKIxEQ W0YLCflCGxB0EekT9lTnVn OMXqOMBsT2JgfIRdGYpyP397QCi bQdH7YHLfruRlV5AgSTEwjCdyNg J7l8V5Tu4INVHvTO10IPJ6 xGH9HI22VO49B1GsEppnuXOagQF +PHRhYmxlIHdpZHRoPScxMDAlJy UnsJyrCM9wRa4gQUQrHBBj vHdbtPJjDqOuu5tnOIGlXPdxET3 jwHgwK4AniWR2QRXbz9n6Hr09V5 8fV9UdbNQ+NESodWI9vIV2 eM7yCbUgPvW8VBmuC529AaEfgJX wKvejq7pct6zvvVw7UiO4YLJriy IneZkjJCF4x1DhMa35M11i IHdpZHRoPSIxNSUiIHZhbGlnbj0 fyI8vHh6+QCYkyRI1wCC2vI3fIf BdDyM6NYvsG674FrYbhRVp Pfimi1iqf1slrHz4TnRzBJJtnfE nhPtsQMH2a8DjSz24K8WceWpef7 LvKoi1ye90qKXrg6M4oOM2 L1TaGGQfdhtkcZXtaTbqUT4iCXV zeddmAECxhK4aOKVbA3p8RlYaVa L9TIuiI8YjxgP8VPFqqJXv REzhVOU1A93mw4C4DJUnNDNeMMG 0nWW2nO5fxSpcbfrgeXYzlRqvff PcnOplJQneNKxpB321SIZl sSopBDZdbV7tKODnjZYqbAljSB3 aIROzhscnVk3ZX0bRAccjRJDJQT EgSjwvdGQ+ITGrOMG1nLkd UVyhHZBtvY3aWSWvO4y5YhIiEmP 6SNkgD0QxSYTaboyvGc86pG1fXz MoYeY8DHoxC2DbwrE3RJEv bVSbOSsoMFW0U77bh2I9JGKpZUH aXEY1qYM3eI8luZmvjlpxgUUnhL hqnyZjeQtyPJfcWMgoA930 SSRuqKupAaW0HlY9LaW0Qws2Q3T kSos8VNWltSvoBH3maHOgYNvsCi 0zqLaunMsiKE7hDCVcovjx JWFnqJ7eXFIleXOqoWahJC4bBIR gknbqu029FaFuOVR0UNZclAHqN5 KbsT7rZuFqBWQgWLJxA2Lt vZJaDNdtX793ZRslXiT2CJZatmY sY8SjZWHmuBgzAzX0l5R6Zj14Me BZZWFyczwvdGQ+PHRkIHN0 vEoiXGkwBJCyuW5yHNPqQ7q1OkX mAyW2YLpqH4VwHBOeawyiBo97rZ 8aQkTwLoV3DLemR9ZupsF8 EOXedNAeTFmxGBF1F59jd0Z1FTL uKPBdSZK8zSG8sL8xfTpwdrzpdJ VmdDsgdmVydGljYWwtYWxp L422KVLqzKasPaSdnSEhPDqytEW +ZRYrXUJ9iCxiXUkhRGWbrY4kSW VuP3v5FlGhJnB4ISljK9Li GXAlctbnCe49hJ7qIaNaZbE4RJq pG1HiimC2OTSguPCpWSydSFZ5F0 8yt8Y4THJlYEIiAGP0gOH5 vF8lvJbdvlpgyQJbtAzbisWgjDm fMIzpNXnfK578BHWviYubGd56eK WeyNxoosK7V3XdAtzooIC+ ZV95TQJdZM08bEStwBQyp2vuyOx 1RrFqFUSvYMD1wPptYXenk6ChJA XbT02lmJOqu6F9GDOeyWbb eSMeVbZarMV2nI6bKNgslzsye3c fywisPhvgn6ccip83xY98Y79wVR dpZHRoPSIzMCUiIHZhbGln ax1xcM7pFe2+RERouBK9fJF1dY2 bRdRzCvS9AFrtY931SeHltOZdBk cwx8xob4wbcJg2OwGdVIJe kxIrqMlmZFS5u0FiDq99F88hLEg kUYDtMEQfIXBxOSLhiVlibn6sxN 9wIi8+GK8ld5cter59jX13 dHI+ELJvSVH2aCegWHtqAHCvlO7 eEOknFkY5EVCtIfBoxE54tQSmTB gtWu4gfYdwtIviVB2mBRSv suvlq003LkObo1xiQISlrZLsVLy nYCU8H85rw2V0GRIiEYKxJQA2kN Q5bK3amQksxuhbpSAhhSap ubMnhLurEUifOEhbB433WBLwzUj pXkIqmZTiS7ivzgCMET7oWrkdtZ Q+PRHkKKM4uTbzHCgqUKKp vE5eHMRfA9u9AgUoPuU2PMmlF7B kmjG1QYFeaGCwSIUbxUTWiQ3lrt nbd3qrjjtjYfKtSYNrAQs4 SQn0VHUqyRhiLgNuLLE4ZnT5EPQ 7qDKocB5gmZsdkvxpeW9xDro+Rk lOOjwvdGQ+NHZjCAL6dPjv UTbqXKCwuT4pGXQuI3r1UoYlLyI 8RInhS5AmyrF0QDXtvVJuWEYaoN JLdN1appnen4lumrwgQiIc LYVxCOx7LHt8XILfqBozQpMrCWB 2SfN9OKL3mQFikB5qfNzlnowylK 9wOyc+TVJOOjwvdGQ+PHRk XPD8aDikRGymUGVcsJ1wLRSfD6s 0LfBhZgI1HKwlF0SmioY0NEZjuU ZpJQQkrUHPcN5zncyof0ts zsroYkFyMFGvRDo2UFn9WFJdgDp nFcBdJQI2UaB7QHX9qBRvqM9whV lvsjashY1eAqs+BBZ4HNS1 EZ61PD88I4LiMeogkPJhlZU+PHR hYmxlIHdpZHRoPScxMDAlJyBzdH zjLX1dYo1gIGOqXAXidFhp cHNl (more content not included)... Normal [facility] Covid-19 PCR ([facility])on 06-18 SARS-CoV-2 (COVID-19) RNA REYNALDO+probe Ql (Unsp spec) Not detected Normal NOT DETECTED [facility] Comment on above: Result Comment: When [...] for this test is supported by the [employer] of Health and Human Service's declaration that [...] longer be used). Performed By: #### C [facility] #### [facility] [address] [place] [address] Dr. Betsy Velazquez ECHO LIMITED STUDYon 023 ECHO LIMITED STUDY Patient: SARAH HANNA Exam Date: 06/29/2022 : 1970 Gender:F Ordering : BONY SOLARES Admission #: [id number] Family : KAYLA DENT Order #: [id number] CLICK HERE TO VIEW EXAM ECHOCARDIOGRAM REPORT [...] Martinez M.D. on 06/30/2022 at 13:52 Normal [facility] GLYCOHEMOGLOBIN A1Con 2022 ADA RECOMMENDATION SEE BELOW Normal [facility] Comment on above: Result Comment: ADA RECOMMENDED LIMIT 4.0 - 6.0 ADA THERAPEUTIC TARGET < 7.0 ACTION SUGGESTED > 7.0 Performed By: #### B MP, MG #### [facility] [address] [place] [address] Dr. Betsy Velazquez Glucose [Mass/Vol] 120 mg/dL Normal [facility] Comment on above: Performed By: #### B MP, MG #### [facility] [address] [place] [address] Dr. Betsy Velazquez HbA1c (Bld) [Mass fraction] 5.8 % Normal 4.5-6.2 [facility] Comment on above: Performed By: #### B MP, MG #### [facility] [address] [place] [address] Dr. Betsy Velazquez LIPID PROFILEon 06-29-2022 CHOL-HDL RATIO NORM SEE BELOW Normal [facility] Comment on above: Result Comment: 3.3 - 4.4 LOW RISK 4.4 - 7.1 AVERAGE RISK 7.1 - 11.0 MODERATE RISK >11.0 HIGH RISK Performed By: #### L IPID, TSH #### [facility] [address] [place] [address] Dr. eBtsy Velazquez Cholesterol [Mass/Vol] 168 mg/dL Normal <=200 [facility] Comment on above: Performed By: #### L IPID, TSH #### [facility] [address] [place] [address] Dr. Betsy Velazquez Cholesterol in HDL [Mass/Vol] 55 mg/dL Normal 40-60 [facility] Comment on above: Performed By: #### L IPID, TSH #### [facility] [address] [address] [address] Betsy Velazquez Cholesterol in LDL [Mass/Vol] 97.0 mg/dL Normal [facility] Comment on above: Performed By: #### L IPID, TSH #### [facility] [address] [place] [address] Dr. Betsy Velazquez Cholesterol.total/Ch olesterol in HDL [Mass ratio] 3.1 {ratio} Normal [facility] Comment on above: Performed By: #### L IPID, TSH #### [facility] [address] [address] [address] Betsy Velazquez HDL NORMAL > or = 60 mg/dl - LO W CARDIOVASCULAR RISK <40 mg/dl - HIGH CARDIOVASCULAR RISK Normal [facility] Comment on above: Performed By: #### L IPID, TSH #### [facility] [address] [place] [address] Dr. Betsy Velazquez LDL CALC NORMAL SEE BELOW Normal [facility] Comment on above: Result Comment: <100 mg/dl OPTIMAL 100 - 129 mg/dl NEAR OR ABOVE OPTIMAL 130 - 159 mg/dl BORDERLINE HIGH 160 - 189 mg/dl HIGH >190 mg/dl VERY HIGH Performed By: #### L IPID, TSH #### [facility] [address] [place] [address] Dr. Betsy Velazquez Triglyceride [Mass/Vol] 80 mg/dL Normal <=[address] [facility] Comment on above: Performed By: #### L IPID, TSH #### [facility] [address] [place] [address] Dr. Betsy Velazquez VLDL CALC 16.0 mg/dL Normal [facility] Comment on above: Performed By: #### L IPID, TSH #### [facility] [address] [place] [address] Dr. Betsy Velazquez MAGNESIUMon 06-29-2022 Magnesium [Mass/Vol] 2.1 mg/dL Normal 1.8-2.[address] [facility] Comment on above: Performed By: #### B MP, MG #### [facility] [address] [place] [address] Dr. Betsy Velazquez PROF CHEM 8 (BAS METB)on Anion gap [Moles/Vol] 10.8 mmol/L Normal [facility] Comment on above: Performed By: #### B MP, MG #### [facility] [address] [place] [address] Dr. Betsy Velazquez Calcium [Mass/Vol] 9.0 mg/dL Normal 8.5-10.1 [facility] Comment on above: Performed By: #### B MP, MG #### [facility] [address] [place] [address] Dr. Betsy Velazquez Chloride [Moles/Vol] 104 mmol/L Normal 98-107 [facility] Comment on above: Performed By: #### B MP, MG #### [facility] [address] [place] [address] Dr. Betsy Velazquez CO2 [Moles/Vol] 28.1 mmol/L Normal 21.0-32.0 [facility] Comment on above: Performed By: #### B MP, MG #### [facility] [address] [place] [address] Dr. Betsy Velazquez Creatinine [Mass/Vol] 0.86 mg/dL Normal 0.55-1.02 [facility] Comment on above: Performed By: #### B MP, MG #### [facility] [address] [place] [address] Dr. Betsy Velazquez EGFR-AF [facility] >60 Normal >=60 [facility] Comment on above: Performed By: #### B MP, MG #### [facility] [address] [place] [address] Dr. Betsy Velazquez EGFR-NON AF [facility] >60 Normal >=60 [facility] Comment on above: Performed By: #### B MP, MG #### [facility] [address] [place] [address] Dr. Betsy Velazquez Glucose [Mass/Vol] 111 mg/dL Critically high 74-106 [facility] Comment on above: Performed By: #### B MP, MG #### [facility] [address] [place] [address] Dr. Betsy Velazquez Potassium [Moles/Vol] 3.9 mmol/L Normal 3.5-5.1 [facility] Comment on above: Performed By: #### B MP, MG #### [facility] [address] [place] [address] Dr. Betsy Velazquez Sodium [Moles/Vol] 139 mmol/L Normal 136-[address] [facility] Comment on above: Performed By: #### B MP, MG #### [facility] [address] [place] [address] Dr. Betsy Velazquez Urea nitrogen [Mass/Vol] 18.0 mg/dL Normal 7.0-18.0 [facility] Comment on above: Performed By: #### B MP, MG #### [facility] [address] [place] [address] Dr. Betsy Velazquez Urea nitrogen/Creatinine [Mass ratio] 20.9 mg/mg Normal [facility] Comment on above: Performed By: #### B MP, MG #### [facility] [address] [place] [address] Dr. Betsy Velazquez TSHon 06-29-2022 TSH 1.981 uIU/mL Normal 0.358-3.740 [facility] Comment on above: Performed By: #### L IPID, TSH #### [facility] [address] [place] [address] Dr. Betsy Velazquez XR CHEST 1 Von [...] MARKO GARY Date: 2022-06-28 22:[address] [facility] CARDIAC ELIA ADMITon 023 CK [Catalytic activity/Vol] 149 U/L Normal 26-[address] [facility] Comment on above: Performed By: #### B MP, MG #### [facility] [address] [place] [address] Dr. Betsy Velazquez CK.MB [Mass/Vol] 2.34 ng/mL Normal <=3.[address] [facility] Comment on above: Performed By: #### B MP, MG #### [facility] [address] [place] [address] Dr. Betsy Velazquez HSTROP 5.5 pg/mL Normal 4.0-51.[address] [facility] Comment on above: Result Comment: CUT- OFF POINTS HAVE BEEN ESTABLISHED BASED ON THE FOURTH UNIVERSAL DEFINITIONS OF MYOCARDIAL INFARCTION. THE UPPER REFERENCE LIMIT (URL) OF TROPONIN, DEFINED THE 99TH PERCENTILE OF cTnI DISTRIBUTION IN A REFERENCE POPULATION, HAS BEEN CONFIRMED THE DECISION THRESHOLD FOR [place] DIAGNOSIS. Performed By: #### B MP, MG #### [facility] [address] [place] [address] Dr. Betsy Velazquez CHRISTOPHER 50 ng/mL Normal 9-[address] [facility] Comment on above: Performed By: #### B MP, MG #### [facility] [address] [place] [address] Dr. Betsy Velazquez CBC AUTO DIFFon 06-28-2022 BASO # 0.1 103/ul Normal 0.0-0.1 [facility] Comment on above: Performed By: #### C BC #### [facility] [address] [place] [address] Dr. Betsy Velazquez Basophils/100 WBC (Bld) 0.6 % Normal 0.2-2.0 [facility] Comment on above: Performed By: #### C BC #### [facility] [address] [place] [address] Dr. Betsy Velazquez EO # 0.2 103/ul Normal 0.0-0.[address] [facility] Comment on above: Performed By: #### C BC #### [facility] [address] [place] [address] Dr. Betsy Velazquez Eosinophils/100 WBC (Bld) 2.0 % Normal 0.9-7.[address] [facility] Comment on above: Performed By: #### C BC #### [facility] [address] [place] [address] Dr. Betsy Velazquez Erythrocyte distribution width (RBC) [Ratio] 12.8 % Normal 11.0-15.0 [facility] Comment on above: Performed By: #### C BC #### [facility] [address] [place] [address] Dr. Betsy Velazquez Hematocrit (Bld) [Volume fraction] 41.8 % Normal 36.0-48.0 [facility] Comment on above: Performed By: #### C BC #### [facility] [address] [place] [address] Dr. Betsy Velazquez Hemoglobin (Bld) [Mass/Vol] 13.8 g/dL Normal 12.0-16.0 [facility] Comment on above: Performed By: #### C BC #### [facility] [address] [place] [address] Dr. Betsy Velazquez IG # 0.04 10e3/ul Critically high 0.00-0.03 [facility] Comment on above: Performed By: #### C BC #### [facility] [address] [place] [address] Dr. Betsy Velazquez IG % 0.3 % Normal 0.0-0.5 [facility] Comment on above: Performed By: #### C BC #### [facility] [address] [place] [address] Dr. Betsy Velazquez LYMPH # 3.1 103/ul Normal 1.2-3.8 [facility] Comment on above: Performed By: #### C BC #### [facility] [address] [place] [address] Dr. Betsy Velazquez Lymphocytes/100 WBC (Bld) 26.9 % Normal 20.5-60.0 [facility] Comment on above: Performed By: #### C BC #### [facility] [address] [place] [address] Dr. Betsy Velazquez MANUAL DIFF REQ NO Normal [facility] Comment on above: Performed By: #### C BC #### [facility] [address] [place] [address] Dr. Betsy Velazquez MCH (RBC) [Entitic mass] 31.4 pg Normal 26.7-34.0 [facility] Comment on above: Performed By: #### C BC #### [facility] [address] [address] [address] Betsy Velazquez MCHC (RBC) [Mass/Vol] 33.0 g/dL Normal 29.9-35.2 [facility] Comment on above: Performed By: #### C BC #### [facility] [address] [place] [address] Dr. Betsy Velazquez MCV (RBC) [Entitic vol] 95.2 fL Normal 81.0-99.0 [facility] Comment on above: Performed By: #### C BC #### [facility] [address] [place] [address] Dr. Betsy Velazquez MONO # 0.9 103/ul Critically high 0.3-0.8 [facility] Comment on above: Performed By: #### C BC #### [facility] [address] [place] [address] Dr. Betsy Velazquez Monocytes/100 WBC (Bld) 7.8 % Normal 1.7-12.0 [facility] Comment on above: Performed By: #### C BC #### [facility] [address] [place] [address] Dr. Betsy Velazquez NEUT # 7.2 103/ul Critically high 1.4-6.5 [facility] Comment on above: Performed By: #### C BC #### [facility] [address] [place] [address] Dr. Betsy Velazquez Neutrophils/100 WBC (Bld) 62.4 % Normal 43.0-75.[address] [facility] Comment on above: Performed By: #### C BC #### [facility] [address] [place] [address] Dr. Betsy Velazquez Platelet mean volume (Bld) [Entitic vol] 11.1 fL Normal 9.5-13.5 [facility] Comment on above: Performed By: #### C BC #### [facility] [address] [place] [address] Dr. Betsy Velazquez PLT 272 103/ul Normal 150-[address] [facility] Comment on above: Performed By: #### C BC #### [facility] [address] [place], [place] [address] Dr. Betsy Velazquez RBC 4.39 106/ul Normal 4.20-5.40 [facility] Comment on above: Performed By: #### C BC #### [facility] [address] [place], [place] [address] Dr. Betsy Velazquez WBC 11.6 103/ul Critically high 4.0-11.0 [facility] Comment on above: Performed By: #### C BC #### [facility] [address] [place], [place] [address] Dr. Betsy Velazquez MA Mamm Screen w/CAD [...] very important to your health. The current [employer] and National Comprehensive Cancer [...] Category 1-Negative Recommendation: Normal interval follow-up Normal [facility] PROF CHEM 8 (BAS METB)on Anion gap [Moles/Vol] 12.8 mmol/L Normal [facility] Comment on above: Performed By: #### B MP, MG #### [facility] [address] [address] [address] Betsy Velazquez Calcium [Mass/Vol] 9.4 mg/dL Normal 8.5-10.1 [facility] Comment on above: Performed By: #### B MP, MG #### [facility] [address] [place] [address] Dr. Betsy Velazquez Chloride [Moles/Vol] 102 mmol/L Normal 98-[address] [facility] Comment on above: Performed By: #### B MP, MG #### [facility] [address] [place] [address] Dr. Betsy Velazquez CO2 [Moles/Vol] 25.7 mmol/L Normal 21.0-32.0 [facility] Comment on above: Performed By: #### B MP, MG #### [facility] [address] [place] [address] Dr. Betsy Velazquez Creatinine [Mass/Vol] 1.03 mg/dL Critically high 0.55-1.02 [facility] Comment on above: Performed By: #### B MP, MG #### [facility] [address] [place] [address] Dr. Betsy Velazquez EGFR-AF [facility] >60 Normal >=60 [facility] Comment on above: Performed By: #### B MP, MG #### [facility] [address] [place] [address] Dr. Betsy Velazquez EGFR-NON AF [facility] 56 mL/min/1.73m2 Critically low >=[address] [facility] Comment on above: Performed By: #### B MP, MG #### [facility] [address] [place] [address] Dr. Betsy Velazquez Glucose [Mass/Vol] 93 mg/dL Normal 74-[address] [facility] Comment on above: Performed By: #### B MP, MG #### [facility] [address] [place] [address] Dr. Betsy Velazquez Potassium [Moles/Vol] 3.5 mmol/L Normal 3.5-5.[address] [facility] Comment on above: Performed By: #### B MP, MG #### [facility] [address] [address] [address] Betsy Velazquez Sodium [Moles/Vol] 137 mmol/L Normal 136-145 [facility] Comment on above: Performed By: #### B MP, MG #### [facility] [address] [address] [address] Betsy Velazquez Urea nitrogen [Mass/Vol] 21.0 mg/dL Critically high 7.0-18.0 [facility] Comment on above: Performed By: #### B MP, MG #### [facility] [address] [address] [address] Betsy Velazquez Urea nitrogen/Creatinine [Mass ratio] 20.4 mg/mg Normal [facility] Comment on above: Performed By: #### B MP, MG #### [facility] [address] [address] [address] Betsy Velazquez Consent for Treatmenton 06-18 Consent for Treatment [id number]:127 Normal [facility] RAD - Mammography Reporton 0 06-27-2022 RAD - Mammography Report [id number]:127 Normal [facility] Physician Orderon 06-26-2022 Physician Order [id number]:127 Normal [facility] DIGITAL DIAG MAMM BILAT WITH TOMOon 12-28-2021 DIGITAL DIAG MAMM BILAT WITH MASON Patient Name: RASHEEDA NICHOLE STUDY: DIGITAL DIAG MAMM BILAT WITH MASON; BREAST ULTRASOUND; 12/28/2021 9:31 am; 12/28/2021 9:59 am ACCESSION NUMBER(S): [id number]; [id number] ORDERING CLINICIAN: BARBRAA HARRY INDICATION: breast lump N63.15: Breast lump [...] any future breast imaging appointments, please call [phone] ([phone]). Electronically signed by: ELIA RON MD Normal [facility] Radiologyon 12-28-2021 MG Breast Diagnostic Normal MP-T [facility] Work Phone: ULTRASOUND LIMITED BREASTon 12-28-2021 ULTRASOUND LIMITED BREAST Patient Name: RASHEEDA NICHOLE STUDY: DIGITAL DIAG MAMM BILAT WITH MASON; BREAST ULTRASOUND; 12/28/2021 9:31 am; 12/28/2021 9:59 am ACCESSION NUMBER(S): [id number]; [id number] ORDERING CLINICIAN: BARBARA HARRY INDICATION: breast lump [...] any future breast imaging appointments, please call [phone] ([phone]). Electronically signed by: ELIA RON MD Normal [facility] Ultrasound Limited [place] 12-28-2021 MG Breast Screening Normal MP-Tr [facility] Work Phone: Office Visit (Cardiology)on 12-21-2021 Follow-up visit Diagnoses/Problems Assessed Obesity (BMI 35.0-39.9 without comorbidity) (278.00) (E66.9) Orders Obesity (BMI 35.0-39.9 without comorbidity) Healthy Weight Tips; Status:Complete - Retrospective Authorization; Done: [id number] Some eating tips that can help you lose weight.; Status:Complete - Retrospective Authorization; Done: [id number] Patient Instructions FOLLOW UP NEEDED ONLY YOUR [...] further questions arise, Sincerely, Samara Roe MD [facility] Surgical History Problems History of Carpal tunnel surgery History of section 1990, 1992, 1996 History of Cholecystectomy 2017 History of Tubal ligation bilateral 1996 History of Strong tooth extraction Past Medical History Problems Colon [...] UT) O (more content not included)... Normal [facility] Tobacco Screening.on 022 Adult depression screening assessment No [facility] n 127 DO Work Phone: Tobacco use status [facility] b) No [facility] n 127 DO Work Phone: Office Visiton 11-22-2021 Follow-up visit Diagnoses/Problems Screening breast examination (V76.10) (Z12.39) Breast lump on right side at 12 o'clock position (611.72) (N63.15) Orders Breast lump on right side at 12 o'clock position Mamm Digital Diagnostic Mammography Unilateral Right; Status:Active; Requested for:30Nov2021; Patient is scheduled for 11-30-21 @ 1:30pm at [facility]. Thank you. Laterality : Right Radiologist to Determine Optimal Study : Y What are the patient's signs and symptoms? : breast lump Screening breast examination Mamm - Screening Mammogram; Status:Active; Requested for:22Nov2021; Patient is scheduled at [facility] on 11-30-21. Thank you. Indications for MAMM [...] (354.0) (G56.03) Colon cancer screening (V76.51) (Z12.11) [facility] Encounter for immunization (V03.89) (Z23) Enlarged [...] of Tubal (more content not included)... Normal [facility] Tobacco Screening.on 022 Fall risk assessment a) No falls within the last year [facility] [employer] Work Phone: Tobacco use status [facility] b) No [facility] [employer] Work Phone: PHQ-2 [facility] 07-12-2021 Adult depression screening assessment Negative [facility] [employer] Work Phone: Fall risk assessment a) No falls within the last year [facility] [employer] Work Phone: Tobacco use status [facility] b) No [facility] [employer] Work Phone: Tobacco Screening.on 022 Fall risk assessment a) No falls within the last year [facility] [facility] n 127 DO Work Phone: Tobacco use status [facility] b) [facility] Work Phone: Laboratory - Microbiology an d Antimicrobial susceptibilityon 06-14-2021 SARS-CoV-2 (COVID-19) RNA REYNALDO+probe Ql (Unsp spec) Pass Normal Pass [facility] [employer] Work Phone: No Panel Informationon 06-14 NO Normal [facility] [employer] Work Phone: YES Normal [facility] Work Phone: Unknown Normal [facility] Work Phone: Not detected Normal Not Detected [facility] Work Phone: Comment on above: This test result jakob uld be correlated with clinical presentations and medical history by a healthcare provider to determine its clinical significance.This assay was performed by a reverse transcriptase real-time polymerase chain reaction (rt PCR) method on the [employer] system. This test has been authorized only [...] is terminated or revoked sooner. Nasal Normal [facility] Work Phone: Cardiac Stress Teston 2020 Cardiac Stress Test Please click on the link to view the study images Normal [facility] n 127 DO Work Phone: Cardiac Stress Test MP-No rth [facility] n 127 DO Work Phone: Echocardiogramon 06-07-2021 Echocardiography Please click on the link to view the study images Normal [facility] n 127 DO Work Phone: Hepatic Function Panelon Albumin BCP dye [Mass/Vol] 3.9 g/dL 3.4 - 5.0 [facility] n 127 DO Work Phone: ALP [Catalytic activity/Vol] 71 U/L 33 - 110 [facility] n 127 DO Work Phone: ALT With P-5'-P [Catalytic activity/Vol] 26 U/L 7 - 45 [facility] n 127 DO Work Phone: Comment on above: Patients treated wit h Sulfasalazine may generate falsely decreased results for ALT. AST With P-5'-P [Catalytic activity/Vol] 20 U/L 9 - 39 [facility] n [facility] DO Work Phone: Bilirubin [Mass/Vol] 0.4 mg/dL 0.0 - 1.2 [facility] n [facility] DO Work Phone: Bilirubin.direct [Mass/Vol] 0.1 mg/dL 0.0 - 0.3 [place] [address] DO Work Phone: Protein [Mass/Vol] 7.2 g/dL 6.4 - 8.2 [facility] n [facility] DO Work Phone: Laboratory - Chemistry and C hemistry - challengeon 05-17-2021 Anion gap [Moles/Vol] 14 mmol/L 10 - 20 [facility] n [facility] DO Work Phone: [phone] Calcium [Mass/Vol] 9.1 mg/dL 8.6 - 10.3 [facility] n 127 DO Work Phone: Chloride [Moles/Vol] 102 mmol/L 98 - 107 [facility] n [facility] DO Work Phone: CO2 [Moles/Vol] 27 mmol/L 21 - 32 [facility] n [facility] DO Work Phone: Creatinine [Mass/Vol] 0.81 mg/dL See Below [place] [address] DO Work Phone: Comment on above: Reference Range: 0.5 0 - 1.05 Glucose [Mass/Vol] 93 mg/dL 74 - 99 [facility] n [facility] DO Work Phone: Potassium [Moles/Vol] 4.2 mmol/L 3.5 - 5.3 [facility] n 127 DO Work Phone: Sodium [Moles/Vol] 139 mmol/L 136 - 145 [facility] n 127 DO Work Phone: Urea nitrogen [Mass/Vol] 13 mg/dL 6 - 23 [facility] DO Work Phone: [phone] Laboratory - Hematology and Cell countson 05-17-2021 Erythrocyte distribution width (RBC) [Ratio] 13.2 % See Below [facility] DO Work Phone: Comment on above: Reference Range: 11. 5 - 14.5 Hematocrit (Bld) [Volume fraction] 39.5 % See Below [facility] DO Work Phone: Comment on above: Reference Range: 36. 0 - 46.0 Hemoglobin (Bld) [Mass/Vol] 13.2 g/dL See Below [facility] DO Work Phone: Comment on above: Reference Range: 12. 0 - 16.0 MCHC (RBC) [Mass/Vol] 33.4 g/dL See Below [facility] DO Work Phone: Comment on above: Reference Range: 32. 0 - 36.0 MCV (RBC) [Entitic vol] 97 fL 80 - 100 [place] [address] DO Work Phone: [phone] Platelets (Bld) [#/Vol] 247 10*3/uL 150 - 450 [facility] DO Work Phone: RBC (Bld) [#/Vol] 4.07 {x10E12/L} See Below [facility] n [facility] DO Work Phone: Comment on above: Reference Range: 4.0 0 - 5.20 WBC (Bld) [#/Vol] 7.8 10*3/uL 4.4 - 11.3 [facility] n 127 DO Work Phone: Lipid Panelon 05-17-2021 Cholesterol [Mass/Vol] 176 mg/dL 0 - 199 [facility] 127 DO Work Phone: Comment on above: . [...] dosing. Cholesterol in HDL [Mass/Vol] 63.0 mg/dL [facility] DO Work Phone: Comment on above: . AGE VERY LOW LOW N ORMAL HIGH 0-19 Y < 35 < 40 40-45 ---- 20- 24 Y ---- < 40 >45 ---- >24 Y ---- < 40 40-60 >60. Cholesterol in LDL [Mass/Vol] 96 mg/dL 0 - 99 [facility] 127 DO Work Phone: Comment on above: . NEAR BORD AGE LUIS RABLE OPTIMAL HIGH HIGH VERY HIGH 0-19 Y 0 - 109 --- 110-129 >/= 130 ---- 20-24 Y 0 - 119 --- 120-159 >/= 160 ---- >24 Y 0 - 99 100-129 130-159 160-189 >/=190. Cholesterol.total/Ch olesterol in HDL [Mass ratio] 2.8 {ratio} [facility] 127 DO Work Phone: Comment on above: REF VALUESDESIRABLE < 3.4HIGH RISK > 5.0 Triglyceride [Mass/Vol] 87 mg/dL 0 - 149 [facility] 127 DO Work Phone: Comment on above: . [...] Lipid Panel 17 mg/dL 0 - 40 [place] [address] DO Work Phone: Magnesium, Serumon Magnesium [Mass/Vol] 1.90 mg/dL See Below [place] [address] DO Work Phone: Comment on above: Reference Range: 1.6 0 - 2.40 No Panel Informationon 05-17 >60 >60 [place] [address] DO Work Phone: Comment on above: CALCULATIONS OF LINDSEY MATED GFR ARE PERFORMED USING THE MDRD STUDY EQUATION FOR THE IDMS-TRACEABLE CREATININE METHODS. CLIN CHEM 2007;[id number]:[id number] T4 - Free Thyroxine, Serumon 05-17-2021 Free T4 [Mass/Vol] 0.90 ng/dL See Below [place] [address] DO Work Phone: Comment on above: Reference Range: 0.6 1 - 1.12 Thyroxine Free testing is performed using different testing methodology at [facility] than at other [facility]. Direct result comparisons should only [...] 05-17-2021 TSH Qn 1.76 m[IU]/L See Below [facility] DO Work Phone: Comment on above: Reference Range: 0.4 4 - 3.98 TSH testing is performed using different testing methodology at [facility] than at other [facility]. Direct result comparisons should only be made within the same method. Tobacco Screening.on 021 Fall risk assessment a) No falls within the last year [facility] n 127 DO Work Phone: Tobacco use status CPHS b) No [facility] n 127 DO Work Phone: HCG, Serum - Qualitativeon 1 06-22-2020 HCG ( test) Ql Negative Negative [facility] Work Phone: No Panel Informationon 04-22 [email or web address]/ [email or web address]?Ret rieveTestByDateTime?Patient BC=[id number]&Date= 1&Time=06%3a23%3a29%3a00&Te stType=ECG&Site=11&OutputTy pe=PDF&Ext=PDF [facility] Work Phone: Sinus rhythm with pr emature supraventricular complexes [facility] Work Phone: Borderline Abnormal -[facility] Work Phone: [phone] [facility] Work Phone: [phone] [facility] Work Phone: [phone] [facility] Work Phone: [phone] [facility] Work Phone: [phone] [facility] Work Phone: [phone] [facility] Work Phone: [phone] [facility] Work Phone: 68 1 [facility] Work Phone: 51 1 [facility] Work Phone: [phone] [facility] Work Phone: [phone] [facility] Work Phone: 86 1 [facility] Work Phone: [phone] [facility] Work Phone: [phone] [facility] Work Phone: Coronavirus 2019 RNA by PCR, Screening Asymptomticon 04-20-2021 Coronavirus 2019 RNA by PCR, Screening Asymptomtic Not detected Normal See Below [facility] Work Phone: Comment on above: SOURCE: Nasal, [...] make patient management decisions.Fact sheet for providers: https://www.fda.gov/media/178229/downloadFact sheet for patients: https://www.fda.gov/media/757310/downloadThis test has received FDA Emergency Use Authorization (EUA) and has been verified by [facility] ([facility]). This test is only authorized for the duration of time that circumstances exist to justify the authorization of the emergency use of in vitro diagnostic tests for the detection of SARS-CoV-2 virus and/or diagnosis of COVID-19 infection under section 564(b)(1) of the Act, 21 U.S.C. 360bbb-3(b)(1), unless the authorization is terminated or revoked sooner. [facility] is certified under CLIA-88 as qualified to perform high complexity testing. Testing is performed in the [facility] laboratories located at [address] [place] [address]. LMPon 10-29-2020 Last menstrual period start date 31Aug2020 -[facility] Work Phone: No Panel Informationon 10-29 Name RASHEEDA NICHOLE Pathologist: MAGDA LIMON MD Date of Procedure: 10/29/2020 Date Received: 10/29/2020 Date Reported 11/03/2020 Submitting Physician: SALIMA GILMAN M.D. Location: [facility] External # FINAL DIAGNOSIS A. SKIN, RIGHT [...] and entirely submitted in one cassette. [facility] rcc/11/02/2020 [facility] Department of Pathology [id number] [place] [address] Work Phone: [facility] Work Phone: Mamm - Screening Mammogram w / Tomosynthesison 06-09-2020 MG Breast screening Interpreted by: THERON SNELL08/10/19 09:10MRN: [id number] Name: RASHEEDA NICHOLE STUDY:DIGITAL SCREENING BILATERAL MAMMOGRAM WITH BREAST TOMOSYNTHESIS [...] signed by: THERON VEE 06/09/20 09:10 Normal [facility] Work Phone: Comment on above: ORDER REVISED TO A D IGITAL MAMM SCREENING W/ MASON BY RADIOLOGIST; Original Order Number: [id number] GC + Chlamydia By Amplified Detectionon 01-05-2020 C. trachomatis rRNA REYNALDO+probe Ql (Unsp spec) Negative Negative [facility] A2100 DO Work Phone: N. gonorrhoeae rRNA REYNALDO+probe Ql (Unsp spec) Negative Negative [facility] A2100 DO Work Phone: Comment on above: SOURCE: Genital Otheron 01-05-2020 0 [facility] A2100 DO Work Phone: Comment on above: Interpretation of th e Bronwyn Score0-3.....Normal vaginal microbiota4-6.....Intermediate results7-10....Bacterial vaginosis ABSENT [facility] A2100 DO Work Phone: Negative Negative [facility] A2100 DO Work Phone: Comment on above: SOURCE: Genital Urinalysison 01-05-2020 Yeast LM Ql (Urine sed) ABSENT [facility] A2100 DO Work Phone: Otheron 07-25-2019 Clam IgE Qn (S) <0.35 <0.35 [facility] Work [facility]: Comment on above: SEE IMMUNOCAP INTERP .IGE Codfish IgE Qn (S) <0.35 <0.35 [facility] Work Phone: Comment on above: SEE IMMUNOCAP INTERP .IGE [place] IgE Qn (S) <0.35 <0.35 [facility] Work Phone: Comment on above: SEE IMMUNOCAP INTERP .IGE Egg white IgE Qn (S) <0.35 <0.35 [facility] Work Phone: Comment on above: SEE IMMUNOCAP INTERP .IGE Lobster IgE Qn (S) 0.56 {KU/L} Abnormal <0.35 [facility] Work Phone: Comment on above: SEE IMMUNOCAP INTERP .IGE Milk IgE Qn (S) <0.35 <0.35 [facility] Work Phone: Comment on above: SEE IMMUNOCAP INTERP .IGE Peanut IgE Qn (S) <0.35 <0.35 [facility] Work Phone: Comment on above: SEE IMMUNOCAP INTERP .IGE Pitman IgE Qn (S) <0.35 <0.35 [facility] Work Phone: Comment on above: SEE IMMUNOCAP INTERP .IGE Scallop IgE Qn (S) <0.35 <0.35 [facility] Work Phone: Comment on above: SEE IMMUNOCAP INTERP .IGE Sesame Seed IgE Qn (S) <0.35 <0.35 [facility] Work Phone: Comment on above: SEE IMMUNOCAP INTERP .IGE Shrimp IgE Qn (S) 0.40 {KU/L} Abnormal <0.35 [facility] Work Phone: Comment on above: SEE IMMUNOCAP INTERP .IGE Soybean IgE Qn (S) <0.35 <0.35 [facility] Work Phone: Comment on above: SEE IMMUNOCAP INTERP .IGE Crane IgE Qn (S) <0.35 <0.35 [facility] Work Phone: Comment on above: SEE IMMUNOCAP INTERP .IGE Wheat IgE Qn (S) <0.35 <0.35 [facility] Work Phone: Comment on above: SEE IMMUNOCAP INTERP .IGE SEE COMMENT -[facility] Work Phone: Comment on above: REFERENCE RANGE (IMM UNOCAP) IGE KU/L CLASS INTERPRETATION < 0.35 0 BELOW DETECTION 0.35- 0.69 1 LOW POSITIVE 0.70- 3.49 2 MODERATE POSITIVE 3.50- 17.49 3 HIGH WIBICQNM15.50- 49 4 VERY HIGH [id number] - 99 5 VERY HIGH POSITIVE >100 6 VERY HIGH POSITIVE Culture, Throaton 10-30-2018 Culture, Throat OR DERED BY: SARKIS ROGERS SOURCE: Throat Throat COLLECTED: 10/30/18 15:03 ANTIBIOTICS AT KIP.: RECEIVED : 10/30/18 19:13 Culture, Throat FINAL 11/01/18 08:10 Usual respiratory jessica in 48 hours Normal [facility] Comment on above: Performed By: #### C XTHR #### [facility] [address] [place] [address] Vital Signs Date Time Vital Sign Value Performing Clinician Faci lity 09-24-2022 04:19-0400 Diastolic blood pressure 58 mm[Hg] Vincent Pan [facility] 09-24-2022 04:19-0400 Heart rate 60 /min Vincent Pan [facility] 09-24-2022 04:19-0400 Respiratory rate 18 /min Vincent Pan [facility] 09-24-2022 04:19-0400 SaO2% (BldA) [Mass fraction] 96 % Vincent Pan [facility] 09-24-2022 04:19-0400 Systolic blood pressure 114 mm[Hg] Vincent Pan [facility] 09-24-2022 02:53-0400 Diastolic blood pressure 56 mm[Hg] Vincent Pan [facility] 09-24-2022 02:53-0400 Heart rate 68 /min Vincent Maxim [facility] 09-24-2022 02:53-0400 Mean blood pressure 70 mm[Hg] Vincent Maxim [facility] 09-24-2022 02:53-0400 Respiratory rate 15 /min Vincent Maxim [facility] 09-24-2022 02:53-0400 SaO2% (BldA) [Mass fraction] 92 % Vincent Maxim [facility] 09-24-2022 02:53-0400 Systolic blood pressure 99 mm[Hg] Vincent Maxim [facility] 09-24-2022 02:19-0400 Blood Pressure Location Vincent Maxim [facility] 09-24-2022 02:19-0400 Diastolic blood pressure 52 mm[Hg] Vincent Maxim [facility] 09-24-2022 02:19-0400 Heart rate 75 /min Vincent Maxim [facility] 09-24-2022 02:19-0400 Mean blood pressure 68 mm[Hg] Vincent Maxim [facility] 09-24-2022 02:19-0400 Respiratory rate 18 /min Vincent Maxim [facility] 09-24-2022 02:19-0400 SaO2% (BldA) [Mass fraction] 95 % Vincent Maxim [facility] 09-24-2022 02:19-0400 Systolic blood pressure 101 mm[Hg] Vincent Maxim [facility] 09-24-2022 01:07-0400 Blood Pressure Location Vincent Maxim [facility] 09-24-2022 01:07-0400 Mean blood pressure 72 mm[Hg] Vincent Maxim [facility] 09-23-2022 22:20-0400 Respiratory rate 16 /min Vincent Pan [facility] 09-20-2022 12:24-0400 Body mass index (BMI) [Ratio] 36.48 kg/m2 Kayla Monroeeen Dent [facility] 305 DO Work Phone: 09-20-2022 12:24-0400 Body surface area Derived from formula 1.81 m2 Kayla Monroeeen Jailene [facility] 305 DO Work Phone: 09-20-2022 12:24-040 Body weight 84.73 kg Kayla Monroeeen Dent [facility] 305 DO Work Phone: 09-20-2022 12:24-0400 Diastolic blood pressure 72 mm[Hg] Kayla Monroealonzo Barrette [facility] 305 DO Work Phone: 09-20-2022 12:24-0400 Heart rate 61 /min Kayla Monroealonzo Dent [facility] 305 DO Work Phone: 09-20-2022 12:24-0400 Systolic blood pressure 132 mm[Hg] Kayla Monroealonzo Barrette [facility] 305 DO Work Phone: 08-29-2022 10:03-0400 Heart rate 64 /min Kayla Dent [facility] 300 DO Work Phone: 08-25-2022 14:17-0500 Body temperature 97.88 [degF] Kayla Dent Other Phone: [facility] 08-25-2022 14:17-0500 Diastolic blood pressure 63 mm[Hg] Kayla Dent Other Phone: [facility] 08-25-2022 14:17-0500 Heart rate 69 /min Kayla Dent Other Phone: [facility] 08-25-2022 14:17-0500 Respiratory rate 16 /min Kayla Dent Other Phone: [facility] 08-25-2022 14:17-0500 SaO2% (BldA) [Mass fraction] 93 % Kayla Dent Other Phone: [facility] 08-25-2022 14:17-0500 Systolic blood pressure 120 mm[Hg] Kayla Dent Other Phone: [facility] 08-18-2022 10:45-0500 Body height 152.4 cm Kayla Monroeeen Dent [facility] 300 DO Work Phone: 08-18-2022 10:45-0500 Body mass index (BMI) [Ratio] 36.13 kg/m2 Kayla Monroeeen Dent [facility] [place] 300 DO Work Phone: 08-18-2022 10:45-0500 Body surface area Derived from formula 1.81 m2 Kayla Sonya Dent [facility] [place] 300 DO Work Phone: 08-18-2022 10:45-0500 Body weight 83.92 kg Kayla Dent [facility] [place] 300 DO Work Phone: 08-18-2022 10:45-0500 Diastolic blood pressure 80 mm[Hg] Kayla Monroealonzo Barrette [facility] [place] 300 DO Work Phone: 08-18-2022 10:45-0500 Heart rate 50 /min Kayla Monroealonzo Dent [facility] [place] 300 DO Work Phone: 08-18-2022 10:45-0500 Systolic blood pressure 134 mm[Hg] Kayla Monroealonzo Barrette [facility] [place] 300 DO Work Phone: 08-07-2022 09:06-0500 Blood Pressure Location Luna DICKINSON [facility] 08-07-2022 09:06-0500 Diastolic blood pressure 74 mm[Hg] Luna DICKINSON [facility] 08-07-2022 09:06-0500 Heart rate 66 /min Luna DICKINSON [facility] 08-07-2022 09:06-0500 SaO2% (BldA) [Mass fraction] 95 % Luna DICKINSON [facility] 08-07-2022 09:06-0500 Systolic blood pressure 118 mm[Hg] Luna DICKINSON [facility] 07-12-2022 15:48-0500 Blood Pressure Location Skip Maxerson [facility] 07-12-2022 15:48-0500 Diastolic blood pressure 70 mm[Hg] Skip Christofferson [facility] 07-12-2022 15:48-0500 Heart rate 69 /min Skip Christofferson [facility] 07-12-2022 15:48-0500 Respiratory rate 18 /min Skip Christofferson [facility] 07-12-2022 15:48-0500 SaO2% (BldA) [Mass fraction] 98 % Skip Christofferson [facility] 07-12-2022 15:48-0500 Systolic blood pressure 112 mm[Hg] Skip Christofferson [facility] 12-21-2021 10:04-0400 Body height 152.4 cm Salima Gilman Work Phone: [facility] 127 DO Work Phone: 12-21-2021 10:04-0400 Body mass index (BMI) [Ratio] 36.72 kg/m2 Salima Gilman Work Phone: [facility] 127 DO Work Phone: 12-21-2021 10:04-0400 Body surface area Derived from formula 1.82 m2 Slaima Recinosabrese Work Phone: [facility] 127 DO Work Phone: 12-21-2021 10:04-0400 Body weight 85.28 kg Salima Recinosabrese Work Phone: [facility] 127 DO Work Phone: 12-21-2021 10:04-0400 Diastolic blood pressure 70 mm[Hg] Salima Recinosabrese Work Phone: [facility] 127 DO Work Phone: 12-21-2021 10:04-0400 Heart rate 68 /min Salima aCndelario Kalina Work Phone: [facility] DO Work Phone: 12-21-2021 10:04-0400 Systolic blood pressure 112 mm[Hg] Salima Recinosabrese Work Phone: [facility] DO Work Phone: 11-22-2021 15:34-0400 Body height 152.4 cm Salima Spenceese Work Phone: [facility] Work Phone: 11-22-2021 15:34-0400 Body mass index (BMI) [Ratio] 36.72 kg/m2 Salima Recinosabrese Work Phone: [facility] Work Phone: 11-22-2021 15:34-0400 Body surface area Derived from formula 1.82 m2 Salima Spenceese Work Phone: [facility] Work Phone: 11-22-2021 15:34-0400 Body temperature 97 [degF] Salima Candelario Kalina Work Phone: [facility] Work Phone: 11-22-2021 15:34-0400 Body weight 85.28 kg Salima Recinosabrese Work Phone: [facility] Work Phone: 11-22-2021 15:34-0400 Diastolic blood pressure 73 mm[Hg] Salima Spenceese Work Phone: [facility] Work Phone: 11-22-2021 15:34-0400 Heart rate 66 /min Salima Spenceese Work Phone: [facility] Work Phone: 11-22-2021 15:34-0400 SaO2% (BldA) [Mass fraction] 97 % Salima Candelario Kalina Work Phone: [facility] Work Phone: 11-22-2021 15:34-0400 Systolic blood pressure 112 mm[Hg] Salima Spenceese Work Phone: [facility] Work Phone: 07-12-2021 08:30-0500 Body height 152.4 cm Salima Recinosabrese Work Phone: [facility] Work Phone: 07-12-2021 08:30-0500 Body mass index (BMI) [Ratio] 36.33 kg/m2 Salima Spenceese Work Phone: [facility] Work Phone: 07-12-2021 08:30-0500 Body surface area Derived from formula 1.81 m2 Salima Recinosabrese Work Phone: [facility] Work Phone: 07-12-2021 08:30-0500 Body temperature 96.4 [degF] Salima Recinosabrese Work Phone: [facility] Work Phone: 07-12-2021 08:30-0500 Body weight 84.37 kg Salima Recinosabrese Work Phone: [facility] Work Phone: 07-12-2021 08:30-0500 Diastolic blood pressure 82 mm[Hg] Salima Recinosabrese Work Phone: [facility] Work Phone: 07-12-2021 08:30-0500 Heart rate 88 /min Salima Recinosabrese Work Phone: [facility] Work Phone: 07-12-2021 08:30-0500 Respiratory rate 16 /min Salima Recinosabrese Work Phone: [facility] Work Phone: 07-12-2021 08:30-0500 SaO2% (BldA) [Mass fraction] 98 % Salima Recinosabrese Work Phone: [facility] Work Phone: 07-12-2021 08:30-0500 Systolic blood pressure 122 mm[Hg] Salima Spenceese Work Phone: [facility] Work Phone: 06-23-2021 13:19-0500 Body height 152.4 cm Salima Spenceese Work Phone: [facility] [address] DO Work Phone: 06-23-2021 13:19-0500 Body mass index (BMI) [Ratio] 35.54 kg/m2 Salima Recinosabrese Work Phone: [facility] [address] DO Work Phone: 06-23-2021 13:19-0500 Body surface area Derived from formula 1.79 m2 Salima Recinosabrese Work Phone: [facility] DO Work Phone: 06-23-2021 13:19-0500 Body weight 82.56 kg Salima Kodak Kalina Work Phone: [facility] DO Work Phone: 06-23-2021 13:19-0500 Diastolic blood pressure 78 mm[Hg] Salimawilmer Spenceese Work Phone: [facility] DO Work Phone: 06-23-2021 13:19-0500 Heart rate 66 /min Salima Spenceese Work Phone: [facility] DO Work Phone: 06-23-2021 13:19-0500 Systolic blood pressure 120 mm[Hg] Salima Kodak Kalina Work Phone: [facility] DO Work Phone: 06-07-2021 09:45-0500 65 1 Salima Kodak Kalina Work Phone: [facility] DO Work Phone: Comment on above: [id number] 05-11-2021 10:30-0500 Diastolic blood pressure 68 mm[Hg] Salima A Kalina Work Phone: [facility] DO Work Phone: 05-11-2021 10:30-0500 Systolic blood pressure 126 mm[Hg] Salima Kodak Kalina Work Phone: [facility] DO Work Phone: 05-11-2021 09:53-0500 Body height 152.4 cm Salima Kodak Kalina Work Phone: [facility] DO Work Phone: 05-11-2021 09:53-0500 Body mass index (BMI) [Ratio] 35.94 kg/m2 Salima Kodak Kalina Work Phone: [facility] DO Work Phone: 05-11-2021 09:53-0500 Body surface area Derived from formula 1.8 m2 Salima Kodak Kalina Work Phone: [facility] DO Work Phone: 05-11-2021 09:53-0500 Body weight 83.46 kg Salima Gilman Work Phone: [facility] DO Work Phone: 05-11-2021 09:53-0500 Diastolic blood pressure 82 mm[Hg] Salima Kodak Kalina Work Phone: [facility] DO Work Phone: 05-11-2021 09:53-0500 Heart rate 81 /min Salima Kodak Kalina Work Phone: [facility] DO Work Phone: 05-11-2021 09:53-0500 Systolic blood pressure 148 mm[Hg] Salima Recinosabrese Work Phone: [facility] [address] DO Work Phone: 10-29-2020 18:09-0400 Body height 152.4 cm Luna Zacarias PA-C [facility] Work Phone: 10-29-2020 18:09-0400 Body mass index (BMI) [Ratio] 34.76 kg/m2 Lunadominic Zacarias PA-C [facility] Work Phone: 10-29-2020 18:09-0400 Body surface area Derived from formula 1.78 m2 Lunadominic Zacarias PA-C [facility] Work Phone: 10-29-2020 18:09-0400 Body temperature 97.5 [degF] Lunadominic Zacarias PA-C [facility] Work Phone: 10-29-2020 18:09-0400 Body weight 80.74 kg Lunadominic Zacarias PA-C [facility] Work Phone: 10-29-2020 18:09-0400 Diastolic blood pressure 58 mm[Hg] Lunadominic Zacarias PA-C [facility] Work Phone: 10-29-2020 18:09-0400 Heart rate 80 /min Lunadominic Zacarias PA-C [facility] Work Phone: 10-29-2020 18:09-0400 Respiratory rate 16 /min Lunadominic Ellisdy PA-C [facility] Work Phone: 10-29-2020 18:09-0400 SaO2% (BldA) [Mass fraction] 98 % Luna Ellisdy PA-C [facility] Work Phone: 10-29-2020 18:09-0400 Systolic blood pressure 118 mm[Hg] Luna Ellisdy PA-C [facility] Work Phone: 10-29-2020 18:09-0400 3 1 Luna Zacarias PA-C [facility] Work Phone: Comment on above: Milena Navarrete 10-29-2020 16:09-0400 Body height 152.4 cm Salima Recinosabrese Work Phone: [facility] Work Phone: 10-29-2020 16:09-0400 Body mass index (BMI) [Ratio] 34.76 kg/m2 Salima Spenceese Work Phone: [facility] Work Phone: 10-29-2020 16:09-0400 Body surface area Derived from formula 1.78 m2 Salima Spenceese Work Phone: [facility] Work Phone: 10-29-2020 16:09-0400 Body temperature 97.5 [degF] Salima Spenceese Work Phone: [facility] Work Phone: 10-29-2020 16:09-0400 Body weight 80.74 kg Salima Spenceese Work Phone: [facility] Work Phone: 10-29-2020 16:09-0400 Diastolic blood pressure 58 mm[Hg] Salima Spenceese Work Phone: [facility] Work Phone: 10-29-2020 16:09-0400 Heart rate 80 /min Salima Gilman Work Phone: [facility] Work Phone: 10-29-2020 16:09-0400 Respiratory rate 16 /min Salima Gilman Work Phone: [facility] Work Phone: 10-29-2020 16:09-0400 SaO2% (BldA) [Mass fraction] 98 % Salima Gilman Work Phone: [facility] Work Phone: 10-29-2020 16:09-0400 Systolic blood pressure 118 mm[Hg] Salima Gilman Work Phone: [facility] Work Phone: 10-29-2020 16:09-0400 3 1 Salima Gilman Work Phone: [facility] Work Phone: Comment on above: GRAV PARA 09-24-2020 11:19-0400 Body height 152.4 cm Simone Coulter DO [facility] [place] Work Phone: 09-24-2020 11:19-0400 Body mass index (BMI) [Ratio] 30.66 kg/m2 Simone Coulter DO [facility] [place] Work Phone: 09-24-2020 11:19-0400 Body surface area Derived from formula 1.68 m2 Simone Coulter DO [facility] [place] Work Phone: 09-24-2020 11:19-0400 Body temperature 96.8 [degF] Simone Coulter [facility] [place] Work Phone: 09-24-2020 11:19-0400 Body weight 71.22 kg Simone Coulter DO [facility] [place] Work Phone: 09-24-2020 11:19-0400 Diastolic blood pressure 64 mm[Hg] Simone Coulter DO [facility] [place] Work Phone: 09-24-2020 11:19-0400 Heart rate 60 /min Simone Coulter [facility] [place] Work Phone: 09-24-2020 11:19-0400 Respiratory rate 16 /min Simone Coulter [facility] [place] Work Phone: 09-24-2020 11:19-0400 SaO2% (BldA) [Mass fraction] 97 % Simone Coulter [facility] [place] Work Phone: 09-24-2020 11:19-0400 Systolic blood pressure 110 mm[Hg] Simone Coulter [facility] [place] Work Phone: 09-24-2020 11:19-0400 3 1 Simone Coulter [facility] [place] Work Phone: Comment on above: Para 01-12-2020 11:18-0400 BMI (Body Mass Index) 20.89 kg/m2 Priscilla Leahy MP-Allergists[facility] [place] A2100 DO Work Phone: 01-12-2020 11:18-0400 Body weight 69.85 kg Priscilla Leahy [facility] [place] A2100 DO Work Phone: 01-12-2020 11:18-0400 BP Diastolic 78 mm[Hg] Priscilla Leahy [facility] [place] A2100 DO Work Phone: 01-12-2020 11:18-0400 BP Systolic 124 mm[Hg] Priscilla Leahy [facility] [place] A2100 DO Work Phone: 01-12-2020 11:18-0400 BSA (Body Surface Area) 1.91 m2 Priscilla Leahy [facility] A2100 DO Work Phone: 01-12-2020 11:18-0400 Height 182.88 cm Priscilla Leahy MP[facility] A2100 DO Work Phone: 01-05-2020 15:57-0400 BMI (Body Mass Index) 28.35 kg/m2 Priscilla Leahy VG-Ymeurysjew-Nf [place] A2100 DO Work Phone: 01-05-2020 15:57-0400 Body Temperature 98.4 [degF] Priscilla Leahy MP-Allergists-W e [place] A2100 DO Work Phone: 01-05-2020 15:57-0400 Body weight 70.31 kg Priscilla Leahy JI-Csytuvqcql-Pb [place] A2100 DO Work Phone: 01-05-2020 15:57-0400 BP Diastolic 60 mm[Hg] Priscilla Leahy [facility] [place] A2100 DO Work Phone: 01-05-2020 15:57-0400 BP Systolic 122 mm[Hg] Priscilla Leahy [facility] [place] A2100 DO Work Phone: 01-05-2020 15:57-0400 BSA (Body Surface Area) 1.72 m2 Priscilla Leahy MP[facility] [place] A2100 DO Work Phone: 01-05-2020 15:57-0400 Height 157.48 cm Priscilla Leahy DJ-Xwtdsitcrb-Wz [place] A2100 DO Work Phone: 01-05-2020 15:57-0400 Pulse (Heart Rate) 75 /min Priscilla Leahy MP-[facility]erg[facility] -[place] A2100 DO Work Phone: 01-05-2020 15:57-0400 Pulse Oximetry 98 % Priscilla Leahy MP-[facility] [place] A2100 DO Work Phone: 01-05-2020 15:57-0400 Respiratory Rate 16 /min Priscilla Leahy LV-Exnbcrpluf-U sina suarez A2100 DO Work Phone: 10-15-2019 17:37-0400 BMI (Body Mass Index) 27.34 kg/m2 Christian Benito [facility] Work Phone: 10-15-2019 17:37-0400 Body weight 67.81 kg Christian Benito [facility] Work Phone: 10-15-2019 17:37-0400 BP Diastolic 70 mm[Hg] Christian Benito -[facility] Work Phone: 10-15-2019 17:37-0400 BP Systolic 102 mm[Hg] Christian Benito [facility] Work Phone: 10-15-2019 17:37-0400 BSA (Body Surface Area) 1.69 m2 Christian Benito [facility] Work Phone: 10-15-2019 17:37-0400 Height 157.48 cm Christian Benito [facility] Work Phone: Encounters Encounter Date Encounter Type Care Provider Facility Start: 04-26-2023 ambulatory CYNDI Ovalle lity:[facility] Start: 04-16-2023 End: 04-16-2023 ambulatory [facility] Start: 04-16-2023 End: 04-16-2023 Office outpatient visit 25 minutes Evie [facility] LIFE ENRICHMENT SPECIALIST-RECORDIST Work Phone: [facility] Comment on above: High risk medication use (Primary Dx); Palpitations; Premature ventricular contractions (PVCs) (VPCs); Tachycardia Start: 04-10-2023 End: 04-11-2023 ambulatory JOSELO CHRISTIANALEC [facility] Start: 04-10-2023 End: 04-10-2023 Subsequent hospital visit by physician Legxean Holter [facility] Comment on above: Palpitations Start: 03-30-2023 End: 03-31-2023 ambulatory CYDNI CHEW Facility:[facility] Start: 03-30-2023 End: 03-30-2023 Patient encounter procedure CYNDI CHEW [facility] Start: 03-05-2023 Patient encounter procedure Kayla Dent MP-[facility] 300 DO Work Phone: Start: 03-05-[address] Kayla Chavez acility:[id number] Start: 03-01-2023 [facility]UDIT [facility] [facility] Work Phone: Start: 11-08-2022 ambulatory MD FEDERICO WING Fa cility: Start: 10-13-2022 Chart Update [facility] Work Phone: Start: 10-10-[address] Kayla Chavez acility:[id number] Start: 09-24-2022 End: 09-24-2022 Emergency department patient visit Vincent Pan Facility:[facility] Start: 09-23-2022 End: 09-24-2022 Emergency department patient visit Vincent Pan [facility] Start: 09-22-2022 End: 09-23-[address] Kayla Dent Facility: Start: 09-22-2022 End: 09-22-2022 Patient encounter procedure Federico Wing [facility] Start: 09-21-2022 End: 09-22-[address] Kayla Dent Facility: Start: 09-21-2022 End: 09-21-2022 Patient encounter procedure Federico Wing [facility] Start: 09-20-2022 ambulatory MD FEDERICO WING Fa cility: Start: 09-20-2022 Office outpatient vi sit 40 minutes Kayla Dent -[facility] 305 DO Work Phone: Start: 09-01-2022 ambulatory Federico Wing Facility:[id number] Start: 08-29-2022 EKG, Provider: [place] [address] INVESTIGATOR NARCOTICS 1,[id number], Status: Pen, Time: 10:00 AM Kayla Dent -[facility] 300 DO Work Phone: Start: 08-29-2022 Patient encounter procedure Kayla Dent MP-[facility] 300 DO Work Phone: Start: 08-29-2022 ambulatory MD FEDERICO WING Fa cility: Start: 08-28-2022 Patient encounter procedure Kayla Dent -[facility] 300 DO Work Phone: Start: 08-28-2022 ambulatory MD FEDERICO WING Fa cility: Start: 08-25-2022 AUDIT Kayla Dent [facility] [place] [facility] Work Phone: Start: 08-23-2022 End: 08-25-2022 Evaluation and management of inpatient Skip Platzbecker Facility:[id number] Start: 08-23-2022 AUDIT Kayla Dent -[facility] [place] [facility] Work Phone: Start: 08-22-2022 End: 08-25-2022 Evaluation and management of inpatient Skip Platzbecker [place] 8 Cardio ICU 807 01 Start: 08-18-2022 Office consultation new/estab patient 80 min Kayla Dent -[facility] 300 DO Work Phone: Start: 08-18-[address] Skip Gonzalez Facility:[id number] Start: 08-07-2022 End: 08-08-2022 ambulatory Luna DICKINSON Facility:[facility] Start: 08-07-2022 End: 08-07-2022 Patient encounter procedure Luna DICKINSON [facility] Start: 07-14-2022 End: 07-14-2022 ambulatory Skip Gonzalez Facility:[facility] Start: 07-12-2022 End: 07-13-2022 ambulatory Skip Gonzalez Facility:[facility] Start: 07-12-2022 End: 07-12-2022 Patient encounter procedure Skip Gonzalez [facility] Start: 06-29-2022 End: 06-29-2022 ambulatory CAMPBELL HERNANDEZ Facility: Start: 06-27-2022 End: 06-28-2022 ambulatory Kayla Dent Facility:[facility] Start: 06-27-2022 End: 06-27-2022 Patient encounter procedure Kayla Dent [facility] Start: 06-26-2022 End: 07-08-2022 Pre-admission assessment Kayla Dent [facility] Start: 03-28-2022 End: 03-28-2022 Patient encounter procedure Kayla Dent [facility] Start: 12-28-2021 Chart Update Salima garcia Work Phone: [facility] Work Phone: Start: 12-28-[address] Salima Gilman Facility:[id number] Start: 12-21-2021 Office outpatient vi sit 15 minutes Salima Gilman Work Phone: [facility] 250 DO Work Phone: Start: 12-21-2021 Patient encounter procedure Salima Gilman Work Phone: [facility] 127 DO Work Phone: Start: 11-30-[address] Salima Gilman Facility:[id number] Start: 11-22-2021 Office outpatient vi sit 10 minutes Salima Spenceese Work Phone: [facility] Work Phone: Start: 11-22-2021 Patient encounter procedure Salima Spenceese Work Phone: [facility] Work Phone: Start: 08-18-2021 Rx Change Salima Recinos abrronald Work Phone: [facility] Work Phone: Start: 08-02-2021 End: 08-05-2021 ambulatory SAMARA ROE [facility] Start: 07-12-2021 Office outpatient vi sit 15 minutes Salima Spenceese [facility] Work Phone: Start: 06-23-2021 FUV, Provider: Samara Roe, Status: Pen, Time: 1:15 PM Salima Spenceese Work Phone: [facility] 127 DO Work Phone: Start: 06-23-2021 Patient encounter procedure Salima Spenceese Work Phone: [facility] 127 DO Work Phone: Start: 06-22-2021 Chart Update Salima Recinos abrronald Work Phone: [facility] 127 DO Work Phone: Start: 06-17-2021 Chart Update Salima Recinos abrronald [facility] Work [facility]: Start: 06-14-2021 End: 09-12-2021 Patient encounter procedure SALIMA Candelario KALINA [facility] Start: 06-07-2021 Patient encounter procedure Salima Candelario Kalina Work Phone: [facility] 127 DO Work Phone: Start: 05-23-2021 Chart Update Salima Candelario Jorje radha Work Phone: [facility] 127 DO Work Phone: Start: 05-11-2021 Office outpatient ne w 45 minutes Salima Candelario Kalina Work Phone: [facility] 127 DO Work Phone: Start: 05-03-2021 Patient encounter procedure Salima Candelario Kalina Work Phone: [facility] Work Phone: Start: 04-27-2021 AUDIT Salima Candelario Jorje radha Work Phone: [facility] Work Phone: Start: 04-22-2021 [facility], Provider: Simone Coulter, Status: Pen, Time: 8:00 AM Salima Spenceese Work Phone: [facility] Work Phone: Start: 04-21-2021 Chart Update Slaima Recinos abrronald Work Phone: [facility] Work Phone: Start: 12-09-2020 Patient encounter procedure Salima Kodak SpenceKalina Work Phone: [facility] Work Phone: Start: 11-23-2020 AUDIT Salima Recinos abrronald Work Phone: [facility] Work Phone: Start: 10-29-2020 Patient encounter procedure Luna Zacarias PA-C [facility] Work Phone: Start: 10-14-2020 Patient encounter procedure Simone [facility]raj [facility] Work Phone: Start: 09-24-2020 Patient encounter procedure Simone Kierraivelisseraj [facility] Work Phone: Start: 09-16-2020 Patient encounter procedure Simone Kierraivelisseraj [facility] Work Phone: Start: 08-17-2020 [facility] encounter [facility] Work Phone: Start: 08-09-2020 Patient encounter procedure Simone Coulter [facility] Work Phone: Start: 06-28-2020 Patient encounter procedure Simone Coulter DO [facility] Work Phone: Start: 06-15-2020 Patient encounter procedure Simone Coulter [facility] Work Phone: Start: 05-05-2020 Patient encounter procedure Priscilla Leahy [facility] 5908 Work Phone: Start: 04-30-2020 Patient encounter procedure Priscilla Leahy [facility] 2419 Work Phone: Start: 04-26-2020 Patient encounter procedure Priscilla Leahy [facility] 2017 Work Phone: Start: 02-16-2020 Patient encounter procedure Priscilla Leahy [facility] 7185 Work Phone: Start: 01-21-2020 Patient encounter procedure Priscilla Leahy [facility] 6115 Work Phone: Start: 01-16-2020 Patient encounter procedure Priscilla Leahy [facility] 6115 Work Phone: Start: 01-12-2020 Patient encounter procedure Priscilla Leahy [facility] 6904 Work Phone: Start: 01-05-2020 Patient encounter procedure Priscilla Leahy UT-Noxgkjuamx-Tkjyxl ke A2100 DO Work Phone: Start: 10-27-2019 Patient encounter procedure Priscilla Leahy TT-Dgvjqblwyh-Ebwppc ke A2100 DO Work Phone: Start: 10-15-2019 Patient encounter procedure Christian Benito [facility] Work Phone: Start: 08-25-2019 Patient encounter procedure Christian Benito [facility] Work Phone: Start: 06-30-2019 Patient encounter procedure Salima Gilman [facility] Work Phone: Start: 05-24-2019 Patient encounter procedure Salima Gilman [facility] Work Phone: Cancer cervix - screening done Simone Coulter DO [facility] [place] Work Phone: Comment on above: 05/24/19-WNL, HPV NEG ; Encounter for gynecological examination (general) (routine) without abnormal findings Salima Gilman Work Phone: [facility] [place] Work Phone: Comment on above: 05/24/19-WNL, HPV NEG ; Mammography normal Salima perry Work Phone: [facility] [place] Work Phone: Comment on above: 05/2020-cat 112// 019-CAT 1; Procedures Date Procedure Procedure Detail Performing Clinician Start: 04-16-2023 Ecg routine ecg w/le ast 12 lds w/i&r 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 LIFE ENRICHMENT SPECIALIST-RECORDIST Work Phone: Start: 04-10-2023 LEGACY HOLTER OR ASHWIN NT PELT SALTER JOSELO HINSON Start: 04-10-2023 Xtrnl pt activtd ecg dwnld w/r&i 30 days Joselo Hinson LIFE ENRICHMENT SPECIALIST-RECORDIST Work Phone: Start: 08-25-2022 End: 08-25-2022 EKG impression Kayla Start: 08-24-2022 End: 08-24-2022 EKG impression Skip Kelly Start: 07-14-2022 Catheterization of l eft heart Luna DICKINSON Start: 12-28-2021 Mammography Holter Start: 06-07-2021 Echocardiography Lynnette Gilman Work Phone: Start: 05-17-2021 Lipid 1996 panel - S jama[place] or Plasma Holter Start: 01-05-2020 Ultrasound Pelvic Mass Priscilla Leahy Start: 01-05-2020 VAGINITIS GRAM STAIN FOR BACTERIAL VAGINOSIS + YEAST Priscilla Leahy Start: 10-15-2019 Assay of thyroid stimulating hormone tsh Christian Benito Start: 06-30-2019 Scallop, IgE, IC Jennif er Kalina Start: 06-30-2019 Shrimp, IgE, IC Jake Gilman Start: 05-24-2019 Microscopic observat ion [Identifier] in Cervix by Cyto stain Holter Bilateral tubal ligation Mariposa Gilman Comment on above: 1995; Carpal tunnel syndro me (disorder) Skip Gonzalez section Salima perry Comment on above: 1990, 1992, 1995; section Skip moreno Comment on above: x 3 Cholecystectomy Salima garcia Comment on above: 2017; Cholecystectomy Skip brooke Decompression of med arnold nerve Salima Gilman Work Phone: Extraction of wisdom tooth Varghese giancarlosuresh Kalina Ligation of fallopian tube Adolfo lisa Gonzaelz Structure of wisdom tooth (body structure) Skip Gonzalez Plan of Treatment Date Care Activity Detail Author Start: 05-17-2026 Lipid panel Lipid Panel [facility] Start: 07-16-2023 End: 07-16-2023 Patient encounter procedure 07/16/2023 11:00 AM EST Office Visit [facility] [address] [facility] [facility] [address] [place] [id number] Federico Wing MD [address] [facility] Office [facility] [place] [address] [place], [place] [id number] [facility] Start: 05-14-2023 FUV, Provider: Federico Wing, Status: Pen, Time: 8:45 AM FUV, Provider: Federico Wing, Status: Robles, Time: 8:45 AM [facility] 320 DO Work Phone: Start: 05-14-2023 End: 05-14-2023 Patient encounter procedure 05/14/2023 8:45 AM EST Office Visit [facility] [address] [place] [address] Federico Wing MD [address] [facility] Medical Office [facility] [place] [address] [place] [address] [facility] Start: 04-16-2023 End: 04-16-2023 Patient encounter procedure 04/16/2023 1:00 PM EDT Office Visit [facility] [address] [facility] [place] [id number] 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, LIFE ENRICHMENT SPECIALIST-RECORDIST [address] [facility] [place] [address] [facility] Start: 03-05-2023 EVENT GRACY, Provider : LEON SCHMIDT INVESTIGATOR NARCOTICS 1,[id number], Status: Pen, Time: 3:00 PM EVENT GRACY, Provider: LEON SCHMIDT INVESTIGATOR NARCOTICS 1,[id number], Status: Pen, Time: 3:00 PM [facility] DO Work Phone: Start: 02-16-2023 Influenza vaccination Influenza Vacc ine (#1) [facility] Start: 12-28-2022 Screening for malignant neoplasm of breast Mammogram [facility] Start: 11-08-2022 FUVRESULTS, Provider : Federico Wing, Status: Pen, Time: 11:45 AM FUVRESULTS, Provider: Federico Wing, Status: Pen, Time: 11:45 AM [facility] Work Phone: Start: 09-20-2022 FUVHOSP, Provider: Federico Wing, Status: Pen, Time: 11:45 AM FUVHOSP, Provider: Federico Wing, Status: Pen, Time: 11:45 AM [facility] [place] Work Phone: Start: 09-20-2022 Patient encounter procedure [facility] [place] Start: 09-01-2022 [facility], Provider: Federico Wing, Status: Pen, Time: 9:00 AM [facility], Provider: Federico Wing, Status: Pen, Time: 9:00 AM [facility] 300 DO Work Phone: Start: 08-29-2022 EKG, Provider: LEON SCHMIDT INVESTIGATOR NARCOTICS 1,[id number], Status: Pen, Time: 10:00 AM EKG, Provider: LEON SCHMIDT INVESTIGATOR NARCOTICS 1,[id number], Status: Pen, Time: 10:00 AM [facility] [place] Work Phone: Start: 08-29-2022 Patient encounter procedure [facility] [place] Start: 08-28-2022 EKG, Provider: LEON SCHMIDT INVESTIGATOR NARCOTICS 1,[id number], Status: Pen, Time: 10:00 AM EKG, Provider: LEON SCHMIDT INVESTIGATOR NARCOTICS 1,[id number], Status: Pen, Time: 10:00 AM [facility] [place] Work Phone: Start: 08-28-2022 Patient encounter procedure [facility] [place] Start: 08-25-2022 Arrhythmia Arrhythmia Meek e: 25-Aug-2022 [facility] Start: 08-24-2022 Arrhythmia Arrhythmia Meek e: 24-Aug-2022 [facility] Start: 08-22-2022 Chest pain Chest pain Meek e: 22-Aug-2022 [facility] Start: 08-14-2022 Screening for malignant neoplasm of colon [facility] Start: 05-24-2022 Screening for malignant neoplasm of cervix [facility] Start: 12-21-2021 FUV, Provider: Samara Roe, Status: Pen, Time: 9:45 AM FUV, Provider: Samara Roe, Status: Pen, Time: 9:45 AM [facility] Work Phone: Start: 09-30-2021 COVID-19 Vaccine (2 - Booster for Chioma series) COVID-19 Vaccine (2 - Booster for Chioma series) [facility] Start: 06-23-2021 FUV, Provider: Samara Roe, Status: Pen, Time: 1:15 PM FUV, Provider: Samara Roe, Status: Pen, Time: 1:15 PM [facility] 127 DO Work Phone: Start: 06-16-2021 FUV, Provider: Samara Roe, Status: Pen, Time: 1:00 PM FUV, Provider: Samara Roe, Status: Pen, Time: 1:00 PM [facility] 127 DO Work Phone: Start: 06-07-2021 HOLTER 48, Provider: LEON GREENWOOD INVESTIGATOR NARCOTICS 1,[id number], Status: Pen, Time: 11:00 AM HOLTER 48, Provider: LEON GREENWOOD INVESTIGATOR NARCOTICS 1,[id number], Status: Pen, Time: 11:00 AM [facility] Work Phone: Start: 06-07-2021 STRESS ESTELLE, Provider : CAMPBELL HHVI NUCLEAR 01,[id number], Status: Pen, Time: 10:30 AM STRESS ESTELLE, Provider: CAMP[facility]LL [facility] NUCLEAR 01,[id number], Status: Pen, Time: 10:30 AM [facility] Work Phone: Start: 06-07-2021 ECHO, Provider: CAMPBELL HHVI ULTRASOUND 01,[id number], Status: Pen, Time: 9:45 AM ECHO, Provider: CAMPBELL [facility] ULTRASOUND 01,[id number], Status: Pen, Time: 9:45 AM [facility] Work Phone: Start: 05-11-2021 NPVRFRL, Provider: Samara Roe, Status: Pen, Time: 9:30 AM NPVRFRL, Provider: Samara Roe, Status: Pen, Time: 9:30 AM [facility] Work Phone: Start: 05-11-2021 NPVRFRL, Provider: Enrrique Porter, Status: Pen, Time: 9:15 AM NPVRFRL, Provider: Enrrique Porter, Status: Pen, Time: 9:15 AM [facility] Work Phone: Start: 05-10-2021 FUV, Provider: Salima Gilman, Status: Pen, Time: 8:45 AM FUV, Provider: Salima Gilman, Status: Pen, Time: 8:45 AM [facility] Work Phone: Start: 05-03-2021 POV, Provider: Simone Coulter, Status: Pen, Time: 10:15 AM POV, Provider: Simone Coulter, Status: Pen, Time: 10:15 AM [facility] [place] Work Phone: Start: 04-12-2021 POV, Provider: Simone Coulter, Status: Pen, Time: 9:00 AM POV, Provider: Simone Coulter, Status: Pen, Time: 9:00 AM [facility] [place] Work Phone: Start: 04-01-2021 [facility], Provider: Simone Coulter, Status: Pen, Time: 7:30 AM [facility], Provider: Simone Coulter, Status: Pen, Time: 7:30 AM [facility] [place] Work Phone: Start: 12-09-2020 [facility], Provider: Simone Coulter, Status: Pen, Time: 8:00 AM [facility], Provider: Simone Coulter, Status: Pen, Time: 8:00 AM [facility] Work Phone: Start: 2018 Zoster Vaccines (1 o f 2) Zoster Vaccines (1 of 2) [facility] Start: 1990 DTaP/Tdap/Td Vaccine s (1 - Tdap) DTaP/Tdap/Td Vaccines (1 - Tdap) [facility] Start: 1989 Screening for malignant neoplasm of cervix HPV/Cotest [facility] Start: 1986 Diabetes mellitus screening Diabetes Screening [facility] Start: 1986 Hepatitis C screening Hepatitis C [facility] Start: 1974 Pneumococcal Vaccine : Pediatrics (0 to 5 Years) and At-Risk Patients (6 to 64 Years) (1 - PCV) Pneumococcal Vaccine: Pediatrics (0 to 5 Years) and At-Risk Patients (6 to 64 Years) (1 - PCV) [facility] Start: 1969 MMR Vaccines (1 of 1 - Standard series) MMR Vaccines (1 of 1 - Standard series) [facility] Start: 1968 Hepatitis B Vaccines (1 of 3 - 3-dose series) Hepatitis B Vaccines (1 of 3 - 3-dose series) [facility] Start: 1968 HIV screening HIV Screening [facility] Start: 1968 Screening for malignant neoplasm of colon [facility] Start: 1968 Yearly Adult Physical Yearly Adult P hysical [facility] Chest pain Chest pain [facility] ECG 12 Lead ECG 12 Lead ECG Routine High risk medication use Palpitations Premature ventricular contractions (PVCs) (VPCs) 04/16/2023 3:53 PM EDT [facility] Service Area Work Phone: End: 04-10-2023 Holter monitor study [facility] Service Area Work Phone: Comment on above: Once for 1 Occurrenc es starting 04/10/2023 until 04/10/2023 [facility] Work Phone: NEGATED: Highlighted row has been ruled out! Planned Goals not documented [facility] Work Phone: Immunizations Immunization Date Immunization Notes Care Provider Wendy wei 08-05-2021 [place] COVID-19 Vaccine 0.5 ML Intramuscular Suspension Salima Gilman Work Phone: [facility] Work Phone: 06-29-2021 Covid-19 Non-us Vaccine, Product Unknown 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 APRN-RECORDIST Work Phone: [facility] Work Phone: Payers Date Payer Category Payer Unknown 2018 Private Health Insurance [id number] 1970 Unknown [id number] 2.16.8 40.1.562203.3.579.2.182 1970 Unknown [id number] 2.16.84 0.1.976321.3.579.2.593 1968 Unknown [id number] 2..8 40.1.832514.3.579.2.8 1968 Unknown [id number] 08.03.8 40.1.863856.3.579.2.1067 1968 Unknown [id number] 08.03.8 40.1.180936.3.579.2.1067 1968 Unknown [id number] 08.03.8 40.1.871910.3.579.2.1067 1968 Unknown [id number] 08.03.8 40.1.775895.3.579.2.1067 1968 Unknown [id number] 2.. 840.1.026461.3.579.2. 1968 Unknown [id number] 2. 840.1.705320.3.579.2. 1968 Unknown [id number] 2. 840.1.212042.3.579.2. 1968 Unknown [id number] 2. 840.1.499724.3.579.2. 1968 Unknown [id number] 2. 840.1.097240.3.579.2. 1968 Unknown [id number] 2.16. 840.1.703890.3.579.2. 1968 Unknown [id number] 2. 840.1.346287.3.579.2. 1968 Unknown [id number] 2. 840.1.049615.3.579.2.356 1968 Unknown [id number] 08.03.8 40.1.577067.3.579.2.1244 1968 Unknown [id number] .16.8 40.1.566522.3.579.2.727 1968 Unknown [id number] 16.8 40.1.627754.3.579.2.727 1968 Unknown [id number] 2.16.8 40.1.199879.3.579.2.727 1968 Unknown [id number] 2.16.8 40.1.740906.3.579.2.727 1968 Unknown [id number] 2.16.8 40.1.613453.3.579.2.727 1968 Unknown [id number] 2.16.8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
== END 2023-07-10 09:46 | disposition home or self-care (01) ==
LOC: RAD 09:45
PROVIDERS: Visit Provider Podiatrist Foot & Ankle Surgery
DX: M79.671 Pain in right foot (principal); Z98.890 Other specified postprocedural states
CPT/HCPCS: 73630

== ENCOUNTER 2023-07-31 08:33 | Outpatient (OUT) | payer OTHER, BC, SELFPAY ==
--- NOTE | 2023-07-31 | XR_ITS ---
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 There is again postop changes of the os calcis including osteotomy and subtalar fusion. There is again a staple of the proximal first metatarsal, stable. XR/XR foot RT min 3V IMPRESSION: Right foot radiographs show no evidence of acute abnormalities. Stable postop changes Electronically authenticated by: DIONICIO GRAY Date: 07/31/2023 13:15
--- OUTSIDE RECORDS SUMMARY | 2023-07-31 08:44 | XMS_ITS | CCD ---
Author Name Unknown Address [id number] [place] [address] Organization [facility] Care Team Providers Care Nature Photographer Name Role Phone Salima Gilman Unavailable Unavailable Kalina Salima A Unavailable UnavailChristian Kessler Unavailable Unavailable Hien Gilmanfer A Unavailable UnavailPriscilla Rose Unavailable Unavailable Nadir Maday Unavailable Unavailable Salima Gilman Unavailable Unava ilable Celi Barrett Unavailable Unavailable Priscilla Leahy Unavailable Unavailable Simone Coulter DO Unavailable Unavailable Rell WALL Luna Unavailable Unavailable Salima Gilman MD Unavailable Unavailab andree Schmitz 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 REPAIRER MAINTENANCE Maday Unavailable Unavaila ble Salima Gilman A Unavailable UnavailCeli Kang Unavailable Unavailable Priscilla Leahy Unavailable Unavailable Celi Barrett Unavailable Unavailable Priscilla Leahy Unavailable Unavailable Mariposa Gilmannifer A Unavailable [phone] Unavailable Unavailable SAMARA ROE Referring Unavailable GERRY SALMERON Primary Care Unavailable KALINA, SALIMA A Primary Care Physician Kayla Dent Primary Care Physician CAMPBELL HERNANDEZ Consulting Unavailable KAYLA DENT Primary Care Unavailable CINTHIA ., MAGDA Admitting Unavailable CINTHIA ., MAGDA Attending Unavailable MARKO GARY Consulting Unavailable BONY SOLARES Consulting Unavailable CINTHIA ., MAGDA Consulting Unavailable Kayla Dent Unavailable Unavailable Unavailable Unavailable Kayla Dent Unavailable Wing, Federico Unavailable Skip Kelly Unavailable Unavailable Mecca, Federico Referring Unavailable Mecca, Federico Attending Unavailable Olena, Dr. Kayla Hassan Primary Care Unavailab andree Gilman, Dr. Salima Myles [facility] MsFaby Winn Attending Unavailable Kalina, Dr. Salima Myles Primary Care U [facility] Kamryn, MsFaby Winn Attending Unavailable Olena, Dr. Kayla Hassan Primary Care Unavailab le Mecca, Federico Attending Unavailable Leticia, Skip Attending Unavailable Skip [...] Kayla Hassan Primary Care Unavailab andree HINSON, LINDA JOSELOJOHN HOUSTON Attending Unavailable SINCERE, LINDA JOSELOJOHN HOUSTON Referring Unavailable Carlos, Dr. Skip Smith Referring U judahable Kalina, Dr. Salima Myles Primary Care U judahable MECCA, MD FEDERICO MANSFIELD Attending Unavailabl sina WING, MD FEDERICO MANSFIELD Referring Unavailprecious Dent, Dr. Kayla Hassan Primary Care Unavailab andree WING, MD FEDERICO MANSFIELD Attending Unavailprecious WING, MD FEDERICO MANSFIELD Referring Unavailprecious Dent, Dr. Kayla Hassan Primary Care Unavailab andree WING, MD FEDERICO MANSFIELD Attending Unavailabl MD FEDERICO Bui Referring Unavailabl e MECCA, MD FEDERICO MANSFIELD Attending Unavailprecious Dent, Dr. Kayla Hassan Primary Care Unavailab andree Dent DO, Kayla Hassan Primary Care Provider Olena DIMAS, Kayla Hassan Primary Care Provider [phone] JOSELO HINSON Referring Unavaila lisandra DENT, KAYLA HASSAN Primary Care Unavailable Olena DIMAS, Kayla Hassan Primary Care Provider Unav CYNDI Mckeon Referring Unavailable CYNDI CHEW Attending Unavailable DO Micah Diaz Attending Unavailable NONE, XXXX Referring Unavailable LINDA DICKINSON Attending Unavailable Wing, Federico Admitting Unavailable Wing, Federico Referring Unavailable Mecca, Federico Attending Unavailable Wing, Federico Referring Unavailable Wing, Federico Attending Unavailable Trevin Wingto Admitting Unavailable CYNDI CHEW Referring Unavailable CYNDI CHEW Attending Unavailable CYNDI CHEW Admitting Unavailable Vincent Pan Attending Unavailable EVIE AGUDELO Attending Unavailable KAYLA DENT Primary Care Unavailable WING, FEDERICO N Attending Unavailable EVIE AGUDELO Referring Unavailable KAYLA DENT Primary Care Unavailable Allergies Allergy Classification Reported Allergen(s) Allergy Type Date of Onset Reaction(s) Facility Fish (7 sources) shellfish, unspecified Food Allergy Hives, Angioedema -[facility] Work Phone: (20 sources) shellfish, unspecified; Translations: [shellfish] food allergy Hives, Angioedema, Weal (disorder) [facility] (1 source) Shellfish Drug allergy (disorder) 3 [facility] (8 sources) Shellfish; Translations: [shellfish] Drug allergy 3 Weal (disorder), Angioedema, Hives [facility] (1 source) Shellfish Facial Swelling, Hives [facility] (2 sources) SHELLFISH CONTAINING PRODUCTS; Translations: [SHELLFISH CONTAINING PRODUCTS] Propensity to adverse reactions to food (disorder) 3 [facility] Medications Current Medications Medication Drug Class(es) Dates Sig (Normalized) Sig (Original) aspirin 81 mg delayed release oral tablet (20 sources) Platelet Aggregation Inhibitor, Nonsteroidal Anti-inflammatory Drug Start: 07-12-2022 take 1 tablet by mouth once daily aspirin 81 mg Oral EC Tab 81 mg = 1 tab(s), Oral, Daily, # 30 tab(s), Refills(s) 3, Pharmacy: [facility], 152, cm, 09/23/22 22:25:00 EDT, [...] Substitution Allowed take 1 tablet by sydni once daily Flecainide Acetate 100 MG Oral [...] 1 tablet by mouth once daily metoprolol 25 mg ER Tab 25 mg = 1 tab(s), Oral, Daily, # 30 tab(s), Refills(s) 3, Pharmacy: [facility], 152, cm, 09/23/22 22:25:00 EDT, Height/Length Dosing, 86.5, kg, 09/23/22 22:25:00 EDT, Weight Dosing Start Date: 03/12/23 Status: Ordered Start: 06-23-2021 take 1 tablet by sydni once daily metoprolol 25 mg ER Tab 25 mg = 1 tab(s), Oral, Daily, # 30 tab(s), Refills(s) 3, Pharmacy: [facility], 152, cm, 07/12/22 15:54:00 EST, [...] omeprazole 40 mg delayed release oral capsule (20 sources) Proton Pump Inhibitor Start: 3 take 1 capsule by mouth once daily omeprazole 40 mg Cap-DR 40 mg = 1 cap(s), Oral, Daily, Refills(s) 0 Start Date: 07/14/22 Status: Ordered sertraline 50 mg oral tablet (20 sources) Serotonin Reuptake Inhibitor Start: 0 take 1 tablet by mouth once daily sertraline 50 mg Tab 50 mg = 1 tab(s), Oral, Daily, Refills(s) 0 Start Date: 07/14/22 Status: Ordered Start: 08-25-2019 take 1 tablet by sydni th once daily Sertraline HCl - 25 MG Oral Tablet TAKE 1 TABLET DAILY. 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] Onset: 04-13-2023 04-16-2023 Episodic Other and unspecified benign neoplasm (20 [...] 04-10-2023 04-10-2023 Chronic Other nervous system disorders (1 source) Chronic pain; Translations: [Other chronic pain] Chronic Other nervous system disorders (20 sources) Postoperative pain ; Translations: [Other acute postoperative pain] Onset: 04-10-2023 04-10-2023 Episodic Other non-traumatic joint disorders (1 source) Ankle joint pain; Translations: [Pain in right ankle and joints of right foot] Episodic Other nutritional; endocrine; and metabolic disorders [...] Chronic Other nutritional; endocrine; and metabolic disorders (2 sources) Body mass index (BMI) 36.0-36.9, adult; Translations: [Body mass index (BMI) 36.0-36.9, adult] Onset: 07-27-2023 Chronic Other nutritional; endocrine; and metabolic disorders [...] parts of digestive tract] Onset: 08-25-2022 Episodic Residual codes; unclassified (2 sources) Other specified health status; Translations: [Other specified health status] Onset: 07-27-2023 Episodic Screening and history of mental health [...] Classification Problem Date Documented Da te Episodic/Chronic Cardiac dysrhythmias (20 sources) Palpitations; Translations: [Palpitations] Onset: 04-10-2023 08-22-2022 Episodic Deficiency and other anemia (3 sources) Iron deficiency anemia; Translations: [Iron deficiency anemia, unspecified] Onset: 06-02-2015 04-10-2023 Episodic Other aftercare (2 sources) Other fpc (current) drug therapy; Translations: [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] Onset: 04-13-2023 Episodic Other female genital disorders (1 source) [...] Test Name Value Interpretation Reference Range Facility Physician Orderon 06-29-2023 Physician Order [id number]#1.00TIFF Normal [place] [facility] - [place] 04-27-2023 PT - Orders [id number]#1.00TIFF [facility] Consent for Treatmenton Consent for Treatment [id number]#1.00TIFF [facility] PT - Assessmentson PT - Assessments [id number]#1.00TIFF [facility] PT - Consentson 04-26-2023 PT - Consents [id number]#1.00TIFF [facility] PT - [place] 04-26-2023 PT - Orders [id number]#1.00TIFF [facility] Holter monitor studyon 04-18 This is [...] transmissions. Clinical correlation needs to be made CPA Holter monitor studyOrdered By: Federico Wing on 04-18-2023 [facility] Work Phone: Consent for Treatmenton 03-18 Consent for Treatment [id number]#1.00TIFF Normal [facility] MRI Ankle w/o Contrast Right [...] by: BENITA Technologist: JENNI Technical Comments None [facility] RAD - MRI Screening Formon 1 RAD - MRI Screening Form [id number]#1.00TIFF Normal [place] Physician Orderon 03-21-2023 Physician Order [id number]#1.00CD:127 Normal [place] Outside Cardiovascularon Outside Cardiovascular [id number]#1.00CD:127 [facility] Outside Cardiovascular [id number]#1.00CD:127 Normal [place] Outside HPon 11-03-2022 Outside HP [id number]#1.00CD:127 Normal [place] Outside Progress Noteon 10-16 Outside Progress Note [id number]#1.00CD:127 [facility] Outside Radiologyon 11-04-19 Outside Radiology [id number]#1.00CD:127 Normal [place] MRI Cardiac w/wo contrast fo r Morph/Funct and Valve Dzon 10-10-2022 MRI Cardiac w/wo contrast for Morph/Funct and Valve Dz Normal [facility] Work Phone: [phone] MRI CARDIAC RESONANCE MENG GING FOR VELOCITY FLOW MAPPINGon 10-10-2022 MRI CARDIAC RESONANCE IMAGING FOR VELOCITY FLOW MAPPING [facility] CMR Report Name: RASHEEDA HANNA : 1970 Scan Date: 2022-10-10 13:15:00 Electronically signed by NAILA LEACH 15:48:14 GENERAL INFORMATION HEIGHT: 60.00 in (152.40 cm) WEIGHT: 186.00 lbs (84.37 kgs) BSA: 1.81 m^2 BASELINE HR: 0 BPM SCAN LOCATION: [facility] REFERRING PHYSICIAN: FEDERICO WING ATTENDING PHYSICIAN: FEDERICO WING TECHNOLOGIST: GENARO DELONG ACCESSION NUMBER: [id number] CPT CODES: 79843, [ , ]86395 ICD10 CODES: R00.2, [ , ]I49.3 SUMMARY [...] . Normal (more content not included)... Normal [facility] MRI CARDIAC W/WO CONTRAST FOR MORPH/FUNCT AND VALVE [facility] 10-10-2022 MRI CARDIAC W/WO CONTRAST FOR MORPH/FUNCT AND VALVE [facility] CMR Report Name: RASHEEDA HANNA : 1970 Scan Date: 2022-10-10 13:15:00 Electronically signed by NAILA LEACH 15:48:14 GENERAL INFORMATION HEIGHT: 60.00 in (152.40 cm) WEIGHT: 186.00 lbs (84.37 kgs) BSA: 1.81 m^2 BASELINE HR: 0 BPM SCAN LOCATION: [facility] REFERRING PHYSICIAN: FEDERICO WING ATTENDING PHYSICIAN: FEDERICO WING TECHNOLOGIST: GENARO DELONG ACCESSION NUMBER: [id number] CPT CODES: 47785, [ , ]53518 ICD10 CODES: R00.2, [ , ]I49.3 SUMMARY [...] . Normal (more content not included)... Normal [facility] Coding Summary.on 09-30-2022 Coding Summary. CD:[id number] Ww+PGhl YWQ+GO1NOKAuV73onPOnaW3tA2T MTElOSywgQVBQTElOSyIgbmFtZT 1kaXNjZXJu IC8+XA9iCJJfGlxjdQUsc7C7qLE 8V42ytn3zSIiedKI3QICpBzLxsv eyj4wrlYu8DSqgWvtqHmDe GKChvF34TMD9uN48Kw53zOUlzYU zg6hbzMl7OzQfHPDpBJC3gVrhMQ epf6ZiUEWvP49ohPHsu7Z1 CDFiaYjyxKZdMgHhcXI2jL2iARy guethj4gmuwkwLwd0uw03vMXza9 W6aZK9X8TfpuN2ELXlcIXu EgpmeILWhS7fixjnw4sslpueBjR nFPWkLGf6PAm8BQBjvVxsUnZvRL 44EPH6DMQfpjXwL0CaECEz oZrcNpZ4c8I2Lq8WB7HOLvjfL7P NTUFSWTwvdGQ+QC82ih07I9LtZe siCmh1RZNqWZA3cQE5vB2j MCHfGPnre9T7hBE3Y5MtwoUqkn6 fg0xoAAGcRAqrS78ukQXzq7T2QS CasSX9UKFnhDewYpFlhD84 Oyc+STEziWspe4HmEisbh2cgt1q ebQk3LhvjCDJluvSmlPscXZF5l6 YiQm8wNTQsaMW2sBD4xG9r OyEqOaN3SFciU408GxNtsXAhTgn zE74dX8AmsRL+LKCvTga3UYYwmL dwAW5yA8WdSEJctebcwGPw bLzyNO8zQZMierorMDJlpI5oYSE oB9l8McCwNvP7GVvhO7PxQDHiwp tjRk23kR3yQiJdLzZ7UVdj W1HppcO4YBQyiBAnXZedZUW8X28 kc4K1SQKqCNTyNUX4aQT4cU9mgP lnbjogbGVmdDsgdmVydGlj XSkhMKqiA850GPWrgAgsEvYoSOs uZyBEYXRlOiAgMDQvMTUvMjAyMz wvdGQ+OSNiHIR2lRdlYEAm tAUbLNbcUc3uuUjonMjbMC4hZCC ktigdZGGolL1kSTGcyHAlgPztKQ 2jMJJvpujjg359JpAfLGX8 QAPnkJLwJ4EquU6pKbFsJYOuBQB lP0NdnWZwDNlbY262OPvyNpH1AX IvsoFgY4AcYPHptZchLbW8 q3Z3Ny7Kd0VgvfpoW3ExjCAtHgM lBcozWOy4Q9DaHcucbXN+PC90YW VdLG01WLf5RLW1oZvcSSut POHuM7PtrZ8kPjNjAQJfUDIxZhd +PHRhYmxlIHdpZHRoPScxMDAlJy KoaVfxBT4gCq3gVUMpZOOj sDvsjFHfLrPxx6xvPBIeAIwlAP6 gcXlrC1MprCO2MMMqf8f8As57H8 4fV8NvoQJ+VMLaeZE0vDC1 gL2tNcFxRjH8XUhtS500VaJbwYA vWhsok9mxy3zlaKy2AbQ3CVTuym KspWzgXTH0t1KmOc77C61d IHdpZHRoPSIxNSUiIHZhbGlnbj0 rzH9hIx7+WSQzjMU1kJN6oE7lJk WsRmU9PCjlJ243HlTlyBLx Dcqap8cko1brgLt3IhVnNGVkgwE xsVfyONZ0n9OeKb70U5PrhQpeo3 YxKdr2or40iCIdq5R3nEW6 L9PpEEPhtnwazDMwfThnIR4sUDP xxexzIPMbcS4vWTDgO1t7KpNtOm Z7ARiiS6NwdsO9HKLppTHd YASmoTWQeU5bidvzj8rkbcswLlS cKEBaUFz7JLs0XQChhHgtMiXwEY U8UpR3WOY1wHBtgQ5bgCqy fmbnuB6qZxa+NJM9iJIzlFFQRB5 lOjwvdGQ+OIPvQUZ4hOpsQTmhKL XlpT2aFCGxO5u4MgNkAxO8 ELduW3PcfoB1IIHkxZOwWTUejCU IsQ6wgzwta0jcqvbhLbVeFVDbPQ c7VGz5OMLyvEbuAtAjQHC6 SiP9HTQ4fSWqwA1kwLtnyxbfoA8 wOyc+KkzfkHfxISM0CMb2U3IuRt p6ULCecJzrIE3zzSYmYIkr Wm7fnSpewYnqRD5bISWauaons01 1ImQvl1gqCBSjaDTbNNvtDSJ2I1 1ol9N0UKDaTFMfIHW0jJV8 kR8tzJtcivyhtBPxyYlglcYuqTk xSKvkTUqmT012NFLptHydUlHpUK x5X6NeMhs0RXGkxRkbZB8d uVYdJWytGy1uaBdceHrjBI0nGIT nozval431MiKtn4eiDDMliBXbNJ cwGGP5I35ki0K1YPCtRUIv IKH8pRS7tD8iuVwqafwatDKwwLk gdpHooOmkCXqaWPuaT700BGNvbX eeZqZhrEs5Y9SjRhk6FMHs hFluCI0leFDwZXujMl7ofOqtjFl hYD0pMBYfiqnrc751LpNyr8rfZQ LlmRDwPUrpJDP0L36wd2Q1 POXnGGTsTIL4eCA8jN9ueYsjztb gbGVmdDsgdmVydGljYWwtYWxpZ2 46IHRvcDsnPlBhdGllbnQg XOwxHEo1F4JnLzruoNB+DM07JIQ rAL99qIBzbHAgg3dldFz4GpNmCD JnJON5fQmgXZhmn6KvTBLg X85fmEQds9H0BHQcxRrbbFTtFcT uyTH0zA3fLHnvdvtxp9nbxuaqPq gcm5crfp47sK19Y87yRSfp PUTvVFQuNRMyOXVwrRdmoj2dsM5 wIi8+EVHjqLT7kUR4kE6xABKjKx W5VErtK547EmPdbCLvLyda u6nlq3pzcNw7FdV9IAWkvvPjzHb yESS2s3BlKt92L17rIHomJTBiTO GxXHRoGWDveMekuq7ndZ4j Ii8+CIZhoHA7cWA8iB9tAdOsZcN 1IHwbZ996LgCieBZjFkrdP27jZ6 JvdXA+DFUjDfd9BLUzjJji WG0huNSaQPbaWp3qXSE7DzCjVnB iNRgdY7KxAQWzbrfdgurttAT5XP WxZDWfdG61Wv4kxVatAZUn dMSLpR2uwvihn2lrjbhyCmUzOCI cRXe7LRj4FEUoyRdtFdQtOBU1Hp C7FJY7aDTadF6wbNulhzyg kV8mC1JiVKYxzirfRj97dS3eScQ jNoZ9JPllPqj+TUFHWUFSLCBQQV LUDNRHCX73YZ16iHPjz2P6 kIJ4O3ZyQYYbgneyeersoEK7EPB aWZVrtL09dTLdKJscFq9lp8B9x4 73SDZjVHMpsU66Fs0dpUjo HBTqhRQWpY6wvqgoi4redndfLsV bGTTvGDa2LKh2PVEleLmhWtBzJL B9MpX6IXD3dUDiaY6omRkg cotcrQ7vDpy+ICZcVUpsCHo9AEx vdGQ+CFJmJAO3oYlyOFstHDWszE 8gNIMfE0a1WaKrQeS5SVuc K9VnHLGgjhgyUg30nL6pJuTyJiE 5TPhnU8NefoU4KWRdvTFzAVltAX I4O75zd6M9IMXbUHZzQIN4 gVJ1oK9yvJntoossjTUfoNgcijH aqJafGYhsTBadL027GSYieJbpAy OpCXwcWHHlCX11PB48rQSy m9B9jTR1Z5TuAUBmnopwqunroUD 9CIJxJBHpeO10jLUiJUgvQx3ky5 C3x192HVOtCOAzqY64Xs5m uCsfPPGbeQKSeH2cbsrej1vucnl rMsGxSOAeREx1JCp0KLLzcOsbXm PjRLJ3VgZ3NZL4vNCklB4v lOwrhkucnS6rCew+RmVtYWxlPC9 5PG40nDBzt8X8tMG3Z1TfHGYycs khqtycoJC5PSUqYMRgoZ18 uAEqGVtiXz8zi3F1r115KNUfAHF yeC11Yy9loYtwWRUplGOXjM7vyv pte3ccgflcJkCeIOTnSPa6 MSr5MEMirYbkMwReLHE1IpX8QAR 7tGHjtL4adUgyakoheZ9eXup+T3 E9sAV7aXViaJnykXL+PC90 il49K1JdXelfBok6UUOdGGS8zZC 0rB1kTETfKYrae3F4hKJ1Y7Lbnk Veud3mo9evXSYoJRiqS17d uUPlb8C3CRVuiUR4IRGqaWbkBrN rvW94Cxu+YQCttHlir5ZuHghzb9 oem1mkcRl1HoDfFOMupoWs eXgmXEX5g0LwRd37I18jVDewYBO yEMFjIGKyPERvxYlvwe0tjP4ePc 8+ZHYlkEH4zRL8yR2qHaAj LgI8OFphG479CaGjgKKyUqabp0r eq3suyZx4GbPrSMRjepQzsMitNA A2f4RgSs05C7RizJrrr5Nr Qvm1nz94oDHjl3P8bBJ4U5AuVEQ nmgzqiJVpnCmaXJ4jHFYolkjyOD HlwN0gGCPyD4a1UhXiXnD7 UGhgJ2FwafD7DRFqvDHzFDCeyOD KiV3lkgkyh6vjtedpGdXvDOKmEN x5OMd5XXWzpTobIxCbNCA9 QwC2RRJ2bJMahG4ehMpnlxeguS6 wOyc+HBq3k0otiEIjPW7zlXG9YB 76HN57sAPal9M2eGR1F0Te WUMpxonjiypqsPC2GYWfYEMqeY6 9Ry6gtVyfRw5hTQUlXEB8MAYvcL BdR2NzcH3hXxNaMAKlHPOk N8BehNSaOBqjB556AOnzAwJ5LNS aypGxL2LmGXHupIgiWjZ0f9Q2Co 5JER22KS08CE99kRUtp6U3 yRP9S8NhDNAgafubkeedxTS3OSZ eHKSrdJ56Jy6lhCkkZz3mAUAcNB V3NUQfaYVhX0DxbE5iSsEo LINzAVKbZ9UhhSWqSGjjR079ZHu sEiJ9SMVeukMyS7FjXFYnwOtcRd C8f4L2Ig9BLi76DV98BP91 xFVgj1G3tLK4E1OjXOHimvsfbfr hiEE1TNYyDIYkmO88Ac8uuSjmRe 5gNERrADA7AXLhvDNaL0Bj lT9kOsBmTVChYNOaO3CfwSEvIMj pS903QNctEsV9FTCetcRvH1HqLH OcmPpyJcW3x3U9Fq2AHXje nds3B2YjIqtbwEM+SX03QQYzFI4 5mLCnvAOqh2csgTf1JzPtZDDyDQ Z2eLktNLhbw8NwXTWnJ99d tCXhu9F1 (more content not included)... Normal [place] Coding Summary.on 09-29-2022 Coding Summary. CD:[id number] Ww+PGhl YWQ+CF2XKUWgN82hzIZhoC6jT4G MTElOSywgQVBQTElOSyIgbmFtZT 1kaXNjZXJu IC8+NR9iDITdZpndeXQys6J6nAK 3U01vpk4xPLsdyWA6AYOtFgRxrl xfz0bywLo2RUzpXtvzCvBh QHBvyZ73QCS8dI96Dt30iPNgcDG og3tlxYw8WeWhJHRgJLA3uBikFM dme7TvRPObY95hwAFpx0P8 GFUsgVfjyLKkOdMmbGG4rE3bAWc ezvpry0xsfjmmMls1oa24aGTvo9 V0aEH3K5HopjX2ZRTnzRBj NtcnkUNLuP3dbssks9vbwoueAaD zJIAbMCt5YDt9WWRegOobObLeMP 86KKQ0RCFhriFlW4LxHHQs pReqEpG6y7D2Bi3KS4RJVrglX8Q NTUFSWTwvdGQ+PE28gi52B6ZbVz fpMps4RPSmGWY3jZL2jE0h RXSzBVgcj3G2xFH8A9BgpiAigj0 tz2ngONExHCrvE90fqJLss0X7GH RxbOB5UNRyiGblTaCnxW17 Oyc+NATqxWcmq4ZuKjltu7fqg1o pdJy1PtdqWDLnhpQvvFrxUHM9b3 XnTr6mMUAkbKZ1kPY2lC8f ChMyVgX6EJekM601NfFpkSKgMcm zB84aG8UsfRN+PJCmPon4YYMctX drTV8aG0ZwCBVtgbmgnNSs bComFJ4cPBVhomgjPMPfqZ8qPJO zZ9v3UeMoZpQ5DIrqN7ArFELtjw guGg24pU8bIkUkNqL8PBad N3FskiJ6FPCskJZeBUorBYA4Y43 cw0E4CJOxWRWnOVH0cZG1vT5cmL lnbjogbGVmdDsgdmVydGlj YRvlLTzrS059WMPgmUfqAkCeZSg uZyBEYXRlOiAgMDQvMTQvMjAyMz wvdGQ+AUHiSQN8sIkhYIKb iHVvIDuaKn5inRtngPmeKK5sKVE ftordUDJybE8wHPLeoLUjtAxfGY 1aQYSohodbe858IjFsVYG9 RPPidZCaQ0KxtA4sXoTjDGNwSWG xN6TbcWYsJIpyJ968UTjyJvQ4FC RnvvKwB0EcPRKqtGpkZkJ7 l3J7Ck5Nu3TxdvvmR8MexLPtKmJ rIwidRFk7Y1KtPksxgHK+PC90YW RhZM25RVy1XVJ6cSqhTDjv OUGlK6VlfP2kWfNsYVAaSWNoBfm +PHRhYmxlIHdpZHRoPScxMDAlJy FxmPpiWS7lZg0pPICdXDBv uQcwvKDqDkRqh3eiPQSzBNusKG0 fdCzvW7BxkGY4KSSbz8h0Zv24W2 4kM3OxtMW+MCOfmEI3kNM0 hH1zJtAwBsG5QVlpI046GzGpkVZ rDlgmv9oyr6mtvTv4DzP9QUGjle ZvwRflZNF0x3AsXp51U00g IHdpZHRoPSIxNSUiIHZhbGlnbj0 tnC1hMt1+NCRyoYG6fJB4tQ9eCl NpFjR5TDuyV562IcJxcCEw Nlzak7uxj7dlfXx2FgUqEEYdhkZ rdRvlZEQ8i4QoSo80Q5KsnCgzs8 QdHpq0ci91zPDyi9Q4oMC0 J7TrYNMeatckhSDnoUltEO1gMFO zdyfqZPDikK6mMORaQ1k6OjAwYn W5UJbsO3PrzmZ1RHSapGKm JAYjlEPEkY5jmylcv6qmdwslHcZ kCXWqMKl0PDv0MZYlgIduYhQcWK J4YiM5KLV2cLTndQ8cjTkr dansgR6dJst+DVP5qCAqnPBVBO4 lOjwvdGQ+CRRpLJC4tBddZYrkDQ SmfR0wZJCgR9x2ChAfAtP1 NSepV4MytvO8BMPgmIIcDIBvfJN GtF0qpaxie6bkxbujHkAmVBHtCN j9BUx1BSXknTsiCnVgFLG5 XmD4XSX2tMBznB1tvEtlfnyupK8 wOyc+QeaucCrbGZF0AQx9O6QqYw f3CMYixAxzQP5gxYYdGXvc Hr2kyBqscTrdWE6kTDIpmajtb38 2OlLoo6sbMXNebKBwUMgvWHA9S8 8cy0Z2BEDiCINxVTS9mYA0 kJ0ajTancblxbZNaaDkaixQzxMl gVZzcZDbbV251QLGpfKicKjPlCZ j5A1DuHgs7GOZdhOuiFN4t sPPgNQjrEk6frIpjzZkmWV4eGZP opfsoy435PzFdj0otXPRimHZfWL qcGTQ9M26gz4P3BOLzPPMn AQQ1aVE1sO7yfXqsjustjLXvzBy xlrLzlXjoPMztJQnsQ212JPQrxK pgZfOxoFw9Q4MlXoa5KJNu pJzuRC5xkMToMUabDc5zsRvneMr xTD3oSZIpekvda838WxBzx8syPL ZdfEStCLzzRKZ3O25pb7P1 OUUaMLHxDOD0kXI5cO1xySgxdiv gbGVmdDsgdmVydGljYWwtYWxpZ2 46IHRvcDsnPlBhdGllbnQg OBtnOKz7L9YfMvkqnPY+CB42GYH sWB49sHBabILgc1osyJd3YcXuPT CsOWO8wUazQRwcg1OrVUBt V21ziBHji0S0MTEvbZgrjDDqAfX kyST1jQ4wEWvthonxw4fpnjfeWg fuq6vlft62dG12Q80pQGop JSOqNARsMHRiHSAdqFonbi6rdX7 wIi8+TAVtaMF5qYY9eX2hJJZfQn E5GKjdJ178ZpZnzFNqHmxy w1pwa4xrnHx2OeN3FNRlvgGyoAp yEUW6o6VvMw01O83tPQylMCSzNG RoOPZuNJSogXzvca4euM4e Ii8+QQSxdHB2pRT2dI3iIkJtHoX 6AXptQ663HgRssZIhMfevS38kG5 JvdXA+DALlYpw7NOMoeXuj GX0pbINgHYwcTn2uINU6BfYuJxC lENuqC2WsMBNyplajexdqwUQ7GX KuNKNixA06Ro0zhDpgBMUu uVIJeF7rwrfae1zyhaxsBuOaBBC gAJr7MKs5EAAbeLwvOeKlMUV8Zb E3LPX7gOLkdL7zgEhklccp aF1eL3XxIGSydbnvMn81hN9wMoN qXcT7XFmhQpr+TUFHWUFSLCBQQV SQADMKZK86QE67wCRcy4D7 sGS3D0TzVVNgjhfiseegmIO7NNT zOWMfjK39uEOuLVhxXu1gx8M0e5 21SJVxZIZnhY99Vo0snIkq IZNgoLKEpC6pkwide8bdzcywDrA oAJAmZVb0TMp9VEMhhOczVgTzAW O7FdL9YJI8cTFvbH1rzIbn nznrhX5uUjh+YZUmFAefBFh0KNb vdGQ+ABMpASC6eOiwDWddOMNngC 1rWKXuY9q3QsIiPbN7LJga O0TaZEJctfqbSb67wV5wIwQpZcC 3KUzdF2TaxhC1VNJpiVDaEJxmJA R8G08tj4Q3CKIiRDGuKFC7 kIL6fV8mbOsmlwfowPIgkBhqegN jnXlxCNhkRCjkQ155GEEppIluYn OdXHjbMSZqRG78AX07bQTw g0O8vGQ3H0OqCCMeibfzibvwcYA 1MCNpURFrdL80gIUvYTpiId1hn8 E2v057SGWqHEQczW60Da6a dUhaYEZwqSIOzR9znfomo1zrces fUjRbHJYjCDk1KYf3YJPbwGflLh AnOEJ3LaU6TVC4zPYluE8a bFmsrfmthV7wMjf+RmVtYWxlPC9 1HO95bFCft5X6hDS0D3WxFXWlln nrbxyanPI3HFUgHFIctD63 eSSmDOqbDs9za7N2k887WIIxIAM dmH58Xm6dwPhxBSRwbAHXiG8erd vir7roenspYyBjRLJfIVv7 PXw3LTTazIvjZwDtDUR0NwE4CWP 3dXIxqX3lpNqmqklwpQ4uEym+T3 P5qGH3mSFuwQlveII+PC90 og57D9LbOayhMfa7CDQtLUD8uYN 8jV1wDWTeAJslv9I1jDX5Q7Gmic Dfws6vj2ywNGBeOZgdS71g vGAyl6Y3KEWanVW3JHGseJzuTfE iwR95Lvx+RDFvrNfbz2HtMyovr1 udo2keoOx8IiWbZPTrwnSu oDxvCUP3b7JoOe84U35xDSksAYX sGGFpIMDlWBPnsLziie3gyH0qCa 8+USUnsZL9nMP0dP5aHnYf ZkS6OWelP558VuRnuWGzZpdlm4y yb0dbeJr2VhTsHJNoqtLnnAwzUW U6o1AeQb01K5DgmLbvk3Os Plb6td30vSBph0J0kXF7K4HfHOV ifpohhFTolLmvBC0oOSQiqpdwUN JzwA7jDJUdU4m8QmGoKyJ4 SJgnY2WmwdT3UNAimBIbWFJmpBL JrC5hplmzw6djveoqYvMkOICiTI m4JYj3VQWrkVkxDiLuHIB1 ZrC6VOT1fUAldM7kiOemtvwzxS6 wOyc+IHp4q1jexLUwRC3qfIG6EU 16XA92pFKcy1T3hDI7T2Je VDBhrxrmufcvwQT4QBUzGFOhiA4 3Zj7giRjvYn8yLOCpLWS4EJJrqX CuN1XklC9sIzRyXCDrSXDo M7WfmZQfPAsfO203NJknTsV0GHW noiCpL2AnKBIsaSutBqA7z4B3Zx 8LAV28BM63UY49xZKbz6Q7 mXY5M5ByGPEhgptzfftovFA3IVY pJOGfyV36Su3dePmjOc4dCNXfIJ S8JEJtdMClM4VpjW4pDyXx YSUjAWHnN0AhoJMaDVyoV596NJs uAaN2GNMeuxXpD9GxZOYprAvyEb L4i9O2Iw4CJy19EV35PX22 bZMnm0A3jFD9H0GxPOImqpkzfoh lyZB5UJMcAMIbrF20Ml6inNtsCx 4jYIVpJHZ0QRUifVCtQ5Jw eM0kNuYoUUEaFYUfZ6QckVNuRHp lJ860ZOecBfF4XMZvnqAmZ7LuDW JveNjwNpD2j7F7Vv2POLhl cph4K7FtOfsvaOY+FS02OTCkHC6 9lDNltKAew2plwMv3TnPwXNNwDM Y2nNbiAXunv8DwXHUcJ73n fLXil5I0 (more content not included)... Normal [place] Coding Summary.on 09-27-2022 Coding Summary. CD:[id number] Ww+PGhl YWQ+YL5GISErP21rzUOnmM9hC8B MTElOSywgQVBQTElOSyIgbmFtZT 1kaXNjZXJu IC8+BY7eKHYjCdwtzVEcb5N8fTU 5O96gvu0wWQdhlHL0RCRaYtYaag rgg7yzqIp1JWrpYgumYpUg OBGsnE60MBD1fW65Gz24mFOboNZ ko4ymvYs2MeCbDZAwHCK7cHikTD yto9RfBOMtH76kjRQlr8Y8 SGDysXumaRBuOlLnrOI5gS2uKEe kfgbyn3fiwiepJna1hd76iTSrw5 G3yAH2O2XigoO8LIFrlVHj YjaxsPFIiM0pnmcxz4bhkkcvLgA qYZPhOYm1PVf0RTYhsKueMiYhVZ 41QZH8CJMmxkMuM7DqMVHh wKfgNwR4a6R5Gf3OZ9KLJjfyV6T NTUFSWTwvdGQ+QL01wl36A6TqOy pqCsy9HOQoVHX9mLX1vF2h EWSsNBuuz7T2nOM0G6ItfgNsie7 xb9pzXXLzXVdvK43ejEPhp3W8GN VosCF7PQBlcWcvPzJqqU81 Oyc+GMDmxLbxw8KsIlwur1ijc0y djWv7LfgbMAZcftYiiNcmIJB3u0 WqPb9uKRTebSQ8eGW8dO2m YgOwRyW6OLptY486VaKfyGDnYww tO61gE8ChcPR+EJQoWhc4EOVybY vmFC2dJ4PpVHEftrkejVDp eFylHP5tSIGudhpgGHLqkA8dCFR sH6p1AuMoAxO1EVhiG7RzZGWtqf vsUw51cX2jVfUvKcX2EKrz O1QdajF6UWCvtRScAFlsKWX0E75 bn7D3JMUdNWBhOHI8jKJ8fG6opO lnbjogbGVmdDsgdmVydGlj AMwqLZwhM015GNZhrJjmCyWzGVs uZyBEYXRlOiAgMDQvMTIvMjAyMz wvdGQ+OZXrVWE0lIcpGBDy tLFuJWumNg6wzSfgwHhhQF3wWHN kcwkdNXDlaS3sNDZhrGEmvWwsGY 3cNKDaedrmy716EaTeJPW7 JWWtzHSmL7XniI0cGcMqNHEwDOH yO3YdnDOvUCwqU019ILfsQhK2OH LasmMoC6CzFYLcyHuyQsQ1 e5F5Qs7Mc0FyplppG1EalRNlUxF fAximCAy1C3BsKfvwnGZ+PC90YW FsFU34OJi7NCY4pWgoTQtb NTNvA9CwlD9cSsEjZEFmQIPaTmp +PHRhYmxlIHdpZHRoPScxMDAlJy ZdjLklGM1aHr7pSQKyHUFo uCdopMSwVnFtq1ibUWVbCVipBM3 yaYgoW6RkzEE6ZQBlc4c9Jr69I0 2vQ8LyfSC+JXVqhJV5kEE9 wQ2wNeNkSaO6KIonF613EmTnsMH dBmlxc2oga8fkrFt8DqQ2ZBCiog PjuRzaZHA8z6DyLw15M49h IHdpZHRoPSIxNSUiIHZhbGlnbj0 bcF5fLl3+WLJtkWU0wJH9fK7sBi KaBfD3OGvgR375DgPzcNFi Rhaoc4ljc4rrwLz4GwKsRDOaqeN xaDgfDZM5y7LvNl48B6VwfJvrj9 CrLsp8sk60vIRyi2V7bJH8 M8NnKUStecalpCEqiMblTF5rURT xrsbjHPLslM3iJYVfJ7r9CqQwAg C5TTbhT4WvplX7NIHxpNZn XPAdzJUQhO6znmpfn7fnpsllKpG yUTVfTVg2MOg6LMHvlKwoSmJhNL G7IeH3ZZT6cOJdlE0zoFmn mcyosF1iRel+BOD4jYTezOCJUN3 lOjwvdGQ+WNZaYZY3hMctBKghTG VnaV4lLDIqE4w2HpEkPuX0 TNhnE4IpywE3GRIqgWMlVSVqcZG AtA8slcdrz0debqgfZzJqLBXqXW l6OGz6DOCeyQffBwNhQAA4 IhL7SLE5nVCdkU3npZkcrhsseS1 wOyc+AixtmGopFEB7JSe6W7TgKi o1MDLwzNefFB9kuIGgGSwm Bd2ogRxhyGtdVF3eASZndrazs03 8AeApz8cnZBTayIOdSOldMIJ2W2 2ua4L5IHIqCIEjIBI0dIW0 vW0byGryutiwhEJteIdinkCidWo wERueQHtdY786LBXvtBtmJlYeGF n0S8EwPrk2VKUvlRahQB2s zDLdIKhsYv2zlZagqFjtQF4eHMX cxvgym195DcXrm2kwWRZfxQGjAR koHQV0L29ds6K7JQMlRDDg OKE4oCE0wG4wvFyrlqovvFWskHr alwUltQvqCAenHKxbY002JSKgyC bzLmJrbMa8V7ZaUby1XCRk cOjwGO0fpJTfPDljLf4fuIvdbTf oOY5dNGTtzgvvl892GjDdr2cqIU GftJZiLDfmHNF7N06sn3D8 XHEfROKxGNA7qUW7tV1ytZqstuw gbGVmdDsgdmVydGljYWwtYWxpZ2 46IHRvcDsnPlBhdGllbnQg ZUqoYFf8P3OyAdvkbJW+NN24MEG xTM29mHBplAXbe7nolUw6JyRyWY GyXXO4uEopMQcnk5XrDOGe L26jbMLdk7I7ZXXhvFfqdDWqYgQ ifCG4eX5aFJwshnkzt6htkdjnMs ipl3fjiz53wI46A95kIIgm DOJbIDWuKDPvTSPfzFemzw2iuZ8 wIi8+JRRcdIL4qVZ2fX7vZEMnPl N4MLimJ706ZnLczGJpGcmm j5kxi9wubNb4TkK2AGFpegQeqTx rHNJ4v3MpMo12G16yEPxtISKqAG OaAPVsIREuwAxyex7fgZ2u Ii8+WMKkwLL7xSB4kW8qFnXxAaK 6VRneM254FdJnvXAbPgrmC08jS4 JvdXA+SUOkHdp5WGFidWtg TL5syBHaZSjjXa1hDZB5QzYdFfM rWGtaP9UgJRYdxfraltbdtWA1TB WmBRJjvY65Pr3mwAjqPEEj fLYQuM4znojhd2ywcuffSpIqOLO eLIf9MTo1HSGwtZwdRvPxFEC8Vl W3YYX4yLDwaP4jxHjqepek fC2oI3ByKLKefjivAx02tA7iOjS xKlM5QHueYkb+TUFHWUFSLCBQQV ZUQFPPMA84KE03cBVlq4Q1 tBX2Q2AaDIXvwjrwijeasMR3RDD xTABueY69nYAkVWqqCj9kk3K1o9 55DSLfQYKwbR16Iu7jeKsp UZXygZPXwT1lkhnqx1alxhuuPrD aREEkWYz7RGj6TWUftKdqJpXtQU R0GoR9EGQ5mDNnwW7iiIkf vswkkY4uGya+WLIzHEtjKOd6TIo vdGQ+DHZeSKF3hDnuDYsvALGtkS 8lQTJnB0s1RmZxAiT4HOxk Z8RpVHSekkttWj05hW9fRoLtDwQ 3QCnrG6CiqwA4WYYxgFStKQpkZT L0H16sv3M7IQZqVQUzXZC2 nKR2eK0foJoxipyboDVzkTrussF tiKbdYLrgYDjmZ309MLCkqRtbEf DsXOlzYAAlRW44AB66gPFa t3W9yTE8E9CuIBFsaiablykxqEM 0MWXdLXHopC34tKMyJGdyKw5kw5 I1b124XAWtKBMavQ57Cn3p wKroBTWikRBMnP1kwbzej0jobhy aHxTxIOVjKSq0VRn5MFIxzMjgEq ViCUI8AwH4DIF6uWSpnD1y wErwzuxmoJ7nXxc+RmVtYWxlPC9 9IB74oPOeq2P3zVL6W4AqBMSjpp uexzbpiEN3XKPtBJHtuM16 cRAlVTdpRe3dy0O2b564OLIePPW rnD08Sk9ynGmhEEBpuITRjA2kji qjq0jzimgxYoVlNTNtIPd5 MIr2XOOmaSjfShVwSDU5GkO7FIQ 5tYUoiW0peVgbejmqeP0mAuy+RW 1qrobgixQ7SM42PK88R3Du PjwvdGFibGU+PHRhYmxlIHdpZHR bHHmwIABwEtLntLdkGH3xCi5tNB IjICSdcAkswCJkAzBiv6fm DDNfOUfjBI3mzFbzT6TgcLG2DZA vw0z7Jx32O05uS3CvpHV+PGNvbC M4bJV8tB7bXjYpLzX5CDos Y862TkTyqKMkNflhp0vre8tkcCm 9RnXaPUOsydUwoXyhFXT7x1UlJa 90S08nEWbzTMUlXIHaDTId IZKmoGywrk4pcR9dXf6+PGNvbCB 5tMM8aI2hYcUjBuP3LAwmH111Xa YmiJQuKxzzR83yM1JppHB+ GLRvCrr4WEWaaAmfCA1uuQUzOQy bTe3mUDM2GuJeEsFsCXscT0ViDN FbmlayiujeeDI5BZJzRFUy zP84Be7tnFvaSj2dKQPcMCM9LRF ncZGcV0ShhE5wChMaITLlDTStE1 MbwYSoHAktZ262CMxnLzM4 XADiwzJpI2XxTQFngRuhXoZ3g0F 8Mb8HjJgzgVEbUN7vKqSoZJm4N5 XwJir8SHMgnKvsAA0urNZa DDfsHx9xfSctyDkaHQ8eJTNpkdm ad885ZrSmr5ejOTZicDTyBCdjJC B3I91na5P8ZQOmFITsFRV3 mWN3uJ2uyOxjulpnqCGfuEtpezX fwLssETojJGdlM271UXHdwJieIc FVAyy3G3RuJbk1IPNwhXfi UV8wlVJwSFicBs8noYdusVbbTT9 gSDMsdezev670OaCdz1grIIDdjX NpAKxaKUM5I32qj0Z2FSUn PRQlKLX3dCB3iV7mtToptwqwnCB wdDybfhQluDvzXCtpLAazL504FV EolWejEt1YPgj5R6IvCyk4 GOYppTgnXI2fzGWeAOfwVd6geIf uiKfuZP4bDDMvyidcv202CtUak8 utTADxcGUtCVusLHX0H98j a1J3FAZlIMLoWJM6aOT5wN8pmIu nbjogbGVmdDsgdmVydGljYWwtYW soV589YBFmnRqsLeHdpALn OjwvdGQ+OA73eu77Q6AqNjcpCdm 0XXEhEJY6vWD4vH5bEOAePOsxt1 Y3uYP3E5SrrvXlxa0he9av YXBzZTog (more content not included)... Normal [facility] Auto Diffon 09-24-2022 Basophils/100 WBC (Bld) 0.6 % Normal 0.0-2.0 [facility] Comment on above: Order Comment: Order Added by Discern Expert. Performed By: #### 2 944188, 0058824, 5140060, 95943339, 05890189 ####[address] [address] Basophils/Leukocyte s Auto (Bld) [Pure # fraction] 0.1 E9/L Normal 0.0-0.2 [facility] Comment on above: Order Comment: Order Added by Discern Expert. Performed By: #### 2 651426, 0065845, 2339652, 48345528, 91230780 ####[address] [address] Eosinophils/100 WBC (Bld) 0.3 % Normal 0.0-8.0 [facility] Comment on above: Order Comment: Order Added by Discern Expert. Performed By: #### 2 571175, 1748626, 8481981, 40047764, 11231769 ####[address] [place] [address] Eosinophils/Leukocy hilda Auto (Bld) [Pure # fraction] 0.0 E9/L Normal 0.0-0.5 [facility] Comment on above: Order Comment: Order Added by Discern Expert. Performed By: #### 2 574217, 8497844, 6442324, 22263943, 17356354 ####[address] [address] Lymphocytes/100 WBC (Bld) 20.7 % Normal 14.0-50.0 [facility] Comment on above: Order Comment: Order Added by Discern Expert. Performed By: #### 2 632433, 8733492, 4186036, 50785037, 37436006 ####[address] [place] [address] Lymphocytes/Leukocy hilda Auto (Bld) [Pure # fraction] 3.0 E9/L Normal 1.0-4.0 [facility] Comment on above: Order Comment: Order Added by Discern Expert. Performed By: #### 2 362770, 2742573, 8665037, 79452273, 41910216 ####[address] [address] Monocytes/100 WBC (Bld) 9.1 % Normal 4.0-14.0 [facility] Comment on above: Order Comment: Order Added by Discern Expert. Performed By: #### 2 147908, 8648592, 0940960, 44333154, 08929886 ####[address] [address] Monocytes/Leukocyte s Auto (Bld) [Pure # fraction] 1.3 E9/L High 0.2-1.0 [facility] Comment on above: Order Comment: Order Added by Discern Expert. Performed By: #### 2 448523, 4597999, 8968605, 94239007, 93647351 ####[address] [address] Neutrophils/100 WBC (Bld) 69.3 % Normal 36.0-75.0 [facility] Comment on above: Order Comment: Order Added by Discern Expert. Performed By: #### 2 645088, 4218075, 7662026, 75483869, 48435049 ####[address] [place] [address] Neutrophils/Leukocy hilda Auto (Bld) [Pure # fraction] 10.0 E9/L High 2.0-7.5 [facility] Comment on above: Order Comment: Order Added by Discern Expert. Performed By: #### 2 675776, 7727598, 9229779, 12475825, 22313287 ####[address] [place] [address] CBC w/ Auto Diffon 3 Erythrocyte distribution width (RBC) [Ratio] 13.3 % Normal 10.9-14.2 [facility] Comment on above: Performed By: #### 2 408925, 3055402, 4525114, 10951092, 81022143 ####[address] [address] Hematocrit (Bld) [Volume fraction] 40.2 % Normal 34.0-46.0 [facility] Comment on above: Performed By: #### 2 967979, 2960007, 5032886, 56291685, 40411226 ####[address] [address] Hemoglobin (Bld) [Mass/Vol] 13.3 g/dL Normal 12.0-16.0 [facility] Comment on above: Performed By: #### 2 220845, 5918295, 5221417, 82895803, 49972144 ####[address] [address] MCH (RBC) [Entitic mass] 30.5 pg Normal 27.0-34.0 [facility] Comment on above: Performed By: #### 2 433862, 6033780, 7882378, 71559776, 42577077 ####[address] [address] MCHC (RBC) [Mass/Vol] 33.2 g/dL Normal 31.4-36.0 [facility] Comment on above: Performed By: #### 2 762350, 4042729, 8343621, 87981272, 73300120 ####[address] [address] MCV (RBC) [Entitic vol] 91.8 fL Normal 80.0-100.0 [facility] Comment on above: Performed By: #### 2 631712, 4302799, 4246333, 26103365, 39675085 ####[address] [place] [address] Platelet mean volume (Bld) [Entitic vol] 8.7 fL Normal 6.4-10.8 [facility] Comment on above: Performed By: #### 2 877876, 4408576, 2113543, 60439431, 95145506 ####[address] [address] Platelets (Bld) [#/Vol] 291.0 E9/L Normal 150.0-500.0 [facility] Comment on above: Performed By: #### 2 332686, 6459640, 6692325, 85607374, 37252838 ####[address] [address] RBC (Bld) [#/Vol] 4.4 E12/L Normal 4.3-5.9 [facility] Comment on above: Performed By: #### 2 503824, 1346741, 2366402, 65240957, 78831054 ####[address] [address] WBC corrected for nucl RBC Auto (Bld) [#/Vol] 14.4 E9/L High 4.0-11.0 [facility] Comment on above: Performed By: #### 2 292907, 8303428, 3973929, 02273868, 23838262 ####[address] [address] CMPon 09-24-2022 Albumin [Mass/Vol] 3.8 g/dL Normal 3.3-5.0 [facility] Comment on above: Performed By: #### 2 193370, 2921627, 2900083, 71216350, 68680755 ####[address] [address] Albumin/Globulin (S) [Mass conc ratio] 1.1 Normal 1.1-2.2 [facility] Comment on above: Performed By: #### 2 341926, 6427191, 2466018, 01058460, 91635381 ####[facility] [address] [place] [address] ALP [Catalytic activity/Vol] 91 Int._Unit/L Normal 21-98 [facility] Comment on above: Performed By: #### 2 884214, 2051698, 0092459, 56007699, 73799073 ####[facility] [address] [place] [address] ALT No additional P-5'-P [Catalytic activity/Vol] 34 Int._Unit/L Normal 6-46 [facility] Comment on above: Performed By: #### 2 743481, 2963334, 6655206, 68897967, 11066948 ####[facility] [address] [place] [address] AST [Catalytic activity/Vol] 20 Int._Unit/L Normal 5-43 [facility] Comment on above: Performed By: #### 2 212140, 0046974, 9157930, 85773836, 23996477 ####[facility] [address] [place] [address] Bilirubin [Mass/Vol] 0.4 mg/dL Normal 0.0-1.1 [facility] Comment on above: Performed By: #### 2 205933, 9326803, 1360462, 40033496, 22459204 ####[facility] [address] [place] [address] Creatinine [Mass/Vol] 0.8 mg/dL Normal 0.5-1.3 [facility] Comment on above: Performed By: #### 2 728471, 6398876, 2292161, 52077015, 33428388 ####[facility] [address] [place] [address] Globulin (S) [Mass/Vol] 3.5 g/dL Normal 1.4-4.0 [facility] Comment on above: Performed By: #### 2 485232, 2780283, 2697767, 46058611, 11881085 ####[facility] [address] [place] [address] Protein [Mass/Vol] 7.3 g/dL Normal 6.0-7.8 [facility] Comment on above: Performed By: #### 2 101786, 9641876, 4075582, 68807168, 40182788 ####[facility] [address] [place] [address] Urea nitrogen [Mass/Vol] 24 mg/dL High 5-21 [facility] Comment on above: Performed By: #### 2 624941, 7732915, 5840220, 75239297, 60206544 ####[facility] [address] [place] [address] Urea nitrogen/Creatinine [Mass ratio] 30 No Units High 10-20 [facility] Comment on above: Performed By: #### 2 215406, 1358614, 5948858, 17608135, 12489830 ####[facility] [address] [place] [address] Anion gap [Moles/Vol] 10 mmol/L Normal 6-16 [facility] Comment on above: Performed By: #### 2 404504, 0419830, 1026659, 17397926, 85787350 ####[facility] [address] [place] [address] Calcium [Mass/Vol] 8.9 mg/dL Normal 8.9-11.1 [facility] Comment on above: Performed By: #### 2 987617, 0734164, 4825572, 27101391, 16278493 ####[facility] [address] [place] [address] Chloride [Moles/Vol] 103 mmol/L Normal 101-111 [facility] Comment on above: Performed By: #### 2 220875, 8247578, 8332107, 36883405, 82422661 ####[facility] [address] [place] [address] CO2 [Moles/Vol] 26 mmol/L Normal 21-31 [facility] Comment on above: Performed By: #### 2 170295, 7104764, 7230905, 34708952, 08441719 ####[facility] [address] [place] [address] Glucose [Mass/Vol] 137 mg/dL Normal 55-199 [facility] Comment on above: Result Comment: If t his glucose result represents a fasting glucose, interpretation should refer to the following reference range: 55-99 mg/dL Performed By: #### 2 094862, 3223319, 1145365, 53768872, 45431470 ####[facility] [address] [place] [address] Potassium [Moles/Vol] 4.0 mmol/L Normal 3.5-5.3 [facility] Comment on above: Performed By: #### 2 293369, 4322603, 0275623, 86334335, 49378594 ####[facility] [address] [place] [address] Sodium [Moles/Vol] 135 mmol/L Normal 135-145 [facility] Comment on above: Performed By: #### 2 932725, 4296758, 9021355, 20804034, 87398953 ####[facility] [address] [place] [address] Consent for Treatmenton Consent for Treatment [id number]:127 Normal [facility] Discharge Instructionson Discharge Instructions [id number]:127 Normal [facility] ED Clinical Summaryon 2022 ED Clinical Summary (Inserted Image. Sarah ble to display) [address] [address] ED Clinical Summary Person Information Name: RASHEEDA HANNA [facility]le/[facility] Age: 51 Years : 1970 Sex: Female Language: Macedonian PCP: Kayla Dent DO Marital Status: Visit [...] 09/24/2022 04:39:49 09/24/2022 04:39:49 09/24/2022 04:39:49 ADDRESS: [address] [place] [id number] [facility] DOC NOTES: MEDICAL INFORMATION: Prescriptions Given: Medications [...] Follow up: With: Address: When: Kayla Dent [address] [place] [address] Business ([employer] In 3 days 09/27/2022, only if needed DIAGNOSIS: 1:Accidental overdose Normal [facility] ED Note-Nursingon 09-24-2022 ED Note-Nursing Called Poison Contro l and informed about patient's condition. Pt is clear for discharge per SHERRI Ludwig school admissions representative. Normal [facility] ED Note-Nursing 2152 Received call sissy De La Cruz from [facility] to give report on incoming patient. Pt took Flecainide 100 mg double dose an hour apart, at 2030 and 2130. Recommended to observe for 6 hours and monitor for bradycardia, T wave changes, QT prolongation, arrhythmias, or QRS widening. Pt has history of arrhythmias. Admit if symptomatic. Monitor electrolytes. Normal [facility] ED Note-Physicianon 09-25-19 ED Note-Physician Basic Information Time Seen: Vincent Pan MD 09/23/2022 22:58 Chief Complaint Sent by poison control for taking an extra dose of Flecinid 100 mg tonight an hour apart. Headache started after taking. Palpatations started 10-15 minutes ago. Hx of SSS, PVC's and bigeminy History of Present Illness 51-year-old female sent here by poison control after accidentally taking an extra dose of [...] breath. On August 23 [address] Mecca gasca [facility] started her on flecainide. 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 She will resume her normal medications Sunday. [...] EDT, only if needed [address] [place] [address]- Business (1) Additional Instructions: Patient Education Accidental Drug Poisoning, Adult Problem List/Past Medical History Ongoing No qualifying data Historical No qualifying data Procedure/Surgical History Catheterization of left heart (07/14/2022), Carpal tunnel, section, Cholecystectomy, Tubal ligation, [place] tooth. Medications Inpatient No active inpatient medications [...] 22:35:00) Lymph Auto: 20.7 % (09/23/22 22:35:00) [place] Auto: 9.1 % (09/23/22 22:35:00) Eos Auto: 0.3 % (09/23/22 22:35:00) Basophil Auto: 0.6 % (09/23/22 22:35:00) Neutro Absolute: 10 E9/L High (09/23/22 22:35:00) Lymph Absolute: 3 E9/L (09/23/22 22:35:00) [place] Absolute: 1.3 E9/L High (09/23/22 22:35:00) Eos Absolute: 0 E9/L (09/23/22 22:35:00) Basophil Absolute: 0.1 E9/L (09/23/22 22:35:00) Glucose Lvl: 137 mg/dL (09/23/22 22:35:00) BUN: 24 mg/dL High (09/23/22 22:35:00) Creatinine: 0.8 mg/dL (09/23/22 22:35:00) eGFR: >60 (09/23/22 22:35:00) eGFR AA: >60 (09/23/22:35:00) BUN/Cre (more content not included)... Normal [facility] Comment on above: Result Comment: Elec tronically Signed By: Maxim MCMAHON, Vincent\.br\Date and Time Signed: 09/24/22 04:15 EDT ED Patient Education Noteon 09-24-2022 ED Patient Education Note Pharmacology Accidental Drug Poisoning, Adult Accidental drug poisoning happens when a person accidentally takes too much of a substance, such as a prescription medicine, an rpzh-lnw-bwebotb medicine, a vitamin, a supplement, or an [...] Heroin. ? Multivitamins that contain iron. ? Vrkg-bih-wzcuske cold and cough medicines. What increases the [...] these instructions at home: Medicines ? Take vlot-kpw-oiuthzo and prescription medicines only as told by your health care provider. ? Before taking a new medicine, ask your health care provider whether the medicine: ? May cause side effects. ? Might react with other medicines. ? Keep a list of all the medicines that you take, including wycm-vky-kkeutfv medicines, vitamins, supplements, and herbs. Bring this [...] your cell phone. The hotline of the [employer] [facility] is . ? Store all medicines in safety containers that are out of the reach of children. ? Read the drug inserts that come with your medicines. ? Create a system for taking your medicine, such as a pillbox, that will help you avoid taking too mu (more content not included)... Normal [facility] ED Patient Summaryon 023 ED Patient Summary (Inserted Image. Sarah ble to display) [address] [address] Patient Discharge Instructions Person Information Name: CYNDIRASHEEDA Age: 51 Years Arrival Date: 09/23/2022 22:08:04 Discharge Diagnosis: 1:Accidental overdose Primary Care Physician: Kayla Dent DO Provider Information Primary Provider: Vincent Pan MD [facility] Winder:None The exam and treatment you received in the Emergency Department were for an urgent problem and are not intended as complete care. It is important that you follow up with a doctor, nurse practitioner, or physician?s assistant professor of religion for ongoing care. If your symptoms become worse or you do not improve as expected and you are unable to reach your usual health care provider, you should return to the Emergency Department. We are available 24 hours a day. RASHEEDA HANNA has been given the following list of patient education materials, prescriptions and follow-up instructions: Follow-up Instructions: With: Address: When: Kayla Dent [address] [place] [address] Business (1) In 3 days 09/27/2022, only if needed In the event that this physician does not participate in your insurance network, please consult with your insurance company to find a nearby participating provider. Patient Education Materials: Accidental Drug Poisoning, Adult A MESSAGE TO ALL PATIENTS REGARDING OPIOIDS PRESCRIPTION OPIOIDS: WHAT YOU NEED TO KNOW Prescription opioids can be used to help relieve gdjbzdoz-dw-mrfyhp pain and are often prescribed following a [...] be struggling with addiction, tell your health landcare facilitator and ask for guidance or call [facility] National Helpline at 4-821-529-HELP. braxton Dejesus (more content not included)... Normal [facility] Monitor Recordon 09-24-2022 Monitor Record [id number]:127 Normal [facility] Troponin 0 Hr.on 09-24-2022 Troponin I.cardiac [Mass/Vol] 3.80 pg/mL Low 10.10-27.10 [facility] Comment on above: Result Comment: The 95% CI (Confidence Interval) PPV (Positive Predictive Value) for myocardial infarction in females is 38 pg/mL, in males 51 pg/mL. The results should be used in conjunction with clinical conditions of myocardial infarction. (Access High Sensitivity Troponin I Instructions For Use, Lorenzo Boo, January 2018) Performed By: #### 2 749210, 3579321, 8525032, 66094772, 89073429 ####[facility] [address] [place] [address] eGFRon 09-24-2022 GFR/1.73 sq M.predicted among blacks MDRD (S/P/Bld) [Vol rate/Area] mL/min/{1.73_m2} Normal >=59 [facility] Comment on above: Order Comment: Order added by Discern Expert. Result Comment: eGFR is race adjusted. AA=. Performed By: #### 2 711171, 5801729, 0483018, 91642438, 84430352 ####[facility] [address] [place] [address] GFR/1.73 sq M.predicted among non-blacks MDRD (S/P/Bld) [Vol rate/Area] mL/min/{1.73_m2} Normal >=59 [facility] Comment on above: Order Comment: Order added by Discern Expert. Result Comment: Wire Stretcher trina kidney disease could be indicated at eGFR's of less than 60 mL/min/1.73m2. Kidney failure is indicated at less than 15 mL/min/1.73m2. Performed By: #### 2 794220, 2944357, 8841281, 90551456, 89598887 ####[facility] [address] [place] [address] CHEMISTRYOrdered By: SYSTEM SYSTEM on 09-23-2022 Albumin [Mass/Vol] 3.8 g/dL Normal 3.3 - 5.0 gm/dL [facility] Albumin/Globulin [Mass ratio] 1.1 {ratio} Normal [...] mg/dL Normal 8.9 - 11. 1 mg/dL [facility] Chloride [Moles/Vol] 103 mmol/L Normal 101 - 111 mmol/L [facility] CO2 [Moles/Vol] 26 mmol/L Normal 21 - 31 mmol/L [facility] Creatinine [Mass/Vol] 0.8 mg/dL Normal 0.5 - 1.3 mg/dL [facility] GFR/1.73 sq M.predicted among blacks MDRD (S/P/Bld) [Vol rate/Area] mL/min/1.73 m2 Normal >=59mL/min/ 1.73 m2 [facility] [place] Chem S GFR/1.73 sq M.predicted among non-blacks MDRD (S/P/Bld) [Vol rate/Area] mL/min/1.73 m2 Normal >=59mL/min/ 1.73 m2 [facility] [place] Chem S Globulin (S) [Mass/Vol] 3.5 g/dL Normal 1.4 - 4.0 gm/dL [facility] Glucose [Mass/Vol] 137 mg/dL Normal 55 - 199 mg/dL [facility] Potassium [Moles/Vol] 4.0 mmol/L Normal 3.5 - 5.3 mmol/L [facility] Protein [Mass/Vol] 7.3 g/dL Normal 6.0 - 7.8 gm/dL [facility] Sodium [Moles/Vol] 135 mmol/L Normal 135 - 145 mmol/L [facility] Troponin I.cardiac [Mass/Vol] 3.80 pg/mL Low 10.10 - 27.10 pg/mL [facility] Urea nitrogen [Mass/Vol] 24 mg/dL High 5 - 21 mg/dL [facility] Urea nitrogen/Creatinine [Mass ratio] 30 mg/mg High 10 - 20 [facility] HEMATOLOGYOrdered By: SYSTEM SYSTEM on 09-23-2022 Basophils/100 WBC (Bld) 0.6 % Normal 0.0 - 2.0 % [facility] HemeAutoSS Basophils/Leukocyte s Auto (Bld) [Pure # fraction] 0.1 E9/L Normal 0.0 - 0.2 E9/L [facility] HemeAutoSS Eosinophils/100 WBC (Bld) 0.3 % Normal 0.0 - 8.0 % [facility] HemeAutoSS Eosinophils/Leukocy hilda Auto (Bld) [Pure # fraction] 0.0 E9/L Normal 0.0 - 0.5 E9/L [facility] Lymphocytes/100 WBC (Bld) 20.7 % Normal 14.0 - 50.0 % [facility] Lymphocytes/Leukocy hilda Auto (Bld) [Pure # fraction] 3.0 E9/L Normal 1.0 - 4.0 E9/L [facility] Monocytes/100 WBC (Bld) 9.1 % Normal 4.0 - 14.0 % [facility] Monocytes/Leukocyte s Auto (Bld) [Pure # fraction] 1.3 E9/L High 0.2 - 1.0 E9/L [facility] Neutrophils/100 WBC (Bld) 69.3 % Normal 36.0 - 75.0 % [facility] Neutrophils/Leukocy hilda Auto (Bld) [Pure # fraction] 10.0 E9/L [...] 291.0 E9/L Normal 150.0 - 500.0 E9/L [facility] [place] [facility]eAutoSS RBC (Bld) [#/Vol] 4.4 E12/L Normal 4.3 - 5.9 E12/L [facility] [place] [facility] WBC corrected for nucl RBC Auto (Bld) [#/Vol] 14.4 E9/L High 4.0 - 11.0 E9/L [facility] [place] [facility] Consent for Treatmenton Consent for Treatment [id number]#1.00CD:127 Normal [place] Consent for Treatmenton Consent for Treatment [id number]#1.00CD:127 [facility] Physician Orderon 09-21-2022 Physician Order [id number]#1.00CD:127 [facility] Physician Order [id number]#1.00CD:127 [facility] Physician Order [id number]#1.00CD:127 [facility] Office Visit (Cardiology)on 09-20-2022 Follow-up visit [...] or Bone Graft Simulator, Implanted Breast Tissue Wire Winding Machine Tender, Glucose Monitor, or Neulasta Device? : No Is the patient or breast feeding? : No What are the patient's signs and symptoms? : Tachycardia Patient Instructions Patient to follow up in 4-[address] Federico Wing MD Patient will INCREASE Flecainide to 100mg twice daily. Patient will need to complete an EKG on and Sunday of this week in [facility]- office will arrange for you. Patient [...] requested at the time of your visit. I , Umesh Mann RN, am scribing for and in the presence of, Dr. Federico Wing MD The provider reviewed the following test(s) and result(s) with the patient: ECG and laboratory tests Chief Complaint Patient here for [facility] discharge follow up. Discharged 08/24. Palpitations, [...] no marcellus (more content not included)... Normal [place] Tobacco Screening.on 023 Adult depression screening assessment No [facility] [employer] DO Work Phone: Fall risk assessment a) No falls within the last year [facility] [employer] DO Work Phone: Tobacco use status [facility] b) No [facility] [employer] DO Work Phone: BASIC METABOLIC PANELon 08-16 Anion gap [Moles/Vol] 11 mmol/L Normal 10 - 20 [facility] Comment on above: Performed By: #### T RPHS #### [address] [phone] Calcium [Mass/Vol] 8.9 mg/dL Normal 8.6 - 10.3 [facility] Comment on above: Performed By: #### T RPHS #### [address] [phone] Chloride [Moles/Vol] 104 mmol/L Normal 98 - 107 [facility] Comment on above: Performed By: #### T RPHS #### [address] [id number] Creatinine [Mass/Vol] 0.76 mg/dL Normal 0.50 - 1.05 [facility] Comment on above: Performed By: #### T RPHS #### [address] [id number] eGFR FEMALE >90 Normal >90 [facility] Comment on above: Result Comment: CALC ULATIONS OF ESTIMATED GFR ARE PERFORMED USING THE 2020 CKD-EPI STUDY REFIT EQUATION WITHOUT THE RACE VARIABLE FOR THE IDMS-TRACEABLE CREATININE METHODS. https://jasn.asnjournals.org/content/early//ASN.50656485 88 Performed By: #### T RPHS #### [address] [id number] Glucose [Mass/Vol] 99 mg/dL Normal 74 - 99 [facility] Comment on above: Performed By: #### T RPHS #### [address] [id number] HCO3 (Bld) [Moles/Vol] 26 mmol/L Normal 21 - 32 [facility] Comment on above: Performed By: #### T RPHS #### [address] [id number] Potassium [Moles/Vol] 3.8 mmol/L Normal 3.5 - 5.3 [facility] Comment on above: Performed By: #### T RP #### [address] [id number] Sodium [Moles/Vol] 137 mmol/L Normal 136 - 145 [facility] Comment on above: Performed By: #### T RP #### [address] [id number] Urea nitrogen [Mass/Vol] 16 mg/dL Normal 6 - 23 [facility] Comment on above: Performed By: #### T RP #### [address] [id number] CBCon 08-25-2022 Erythrocyte distribution width (RBC) [Ratio] 12.6 % Normal 11.5 - 14.5 [facility] Comment on above: Performed By: #### C BC #### [address] [id number] Hematocrit (Bld) [Volume fraction] 38.4 % Normal 36.0 - 46.0 [facility] Comment on above: Performed By: #### C BC #### [address] [id number] Hemoglobin (Bld) [Mass/Vol] 13.1 g/dL Normal 12.0 - 16.0 [facility] Comment on above: Performed By: #### C BC #### [address] [id number] MCHC (RBC) [Mass/Vol] 34.1 g/dL Normal 32.0 - 36.0 [facility] Comment on above: Performed By: #### C BC #### [address] [id number] MCV (RBC) [Entitic vol] 92 fL Normal 80 - 100 [facility] Comment on above: Performed By: #### C BC #### [address] [id number] Platelets (Bld) [#/Vol] 248 10*3/uL Normal 150 - 450 [facility] Comment on above: Performed By: #### C BC #### [facility] [address] [place], [place] [id number] RBC 4.18 x10E12/L Normal 4.00 - 5.20 [facility] Comment on above: Performed By: #### C BC #### [facility] [address], [place] [id number] WBC (Bld) [#/Vol] 9.6 10*3/uL Normal 4.4 - 11.3 [facility] Comment on above: Performed By: #### C BC #### [address] [id number] Daily Progress Note-Electrop hysiologyon 08-25-2022 Daily Progress Note-Electrophysiol ogy Consult Type: subsequent visit/care Service: Electrophysiology Subjective Data: RASHEEDA HANNA is a 51 year old Female who is Hospital Day # 4. Additional Information: still with c/o palpitations/ chest pain approximately 1 hour prior to receiving dose of flecainide Up out of bed ambulating in room and bianchi Objective Data: Objective Information: T PRBPMAPSpO2 [id number]/452171% Date/Time08/25 12: 12: 12: 12: 12: 12:17 [...] to better control of PVCs. EKG in [place] on Monday 08/28 and Tuesday 08/29 [...] day Patien (more content not included)... Normal [facility] Electrocardiogram 12 Leadon 08-25-2022 Electrocardiogram 12 Lead Ventricular Rate 71 Atrial Rate 71 P-R Interval 166 QRS Duration 88 Q-T Interval 380 QTC Calculation(Bazett) 412 P [place] 59 R [place] 61 T [place] 56 QRS Count 12 Q Onset 219 P Onset 136 P Offset 195 T Offset 409 QTC Fredericia 402 Diagnosis Class Borderline Abnormal Diagnosis Normal sinus rhythm Normal ECG When compared with ECG of 24-AUG-2022 20:23, premature ventricular complexes is no longer present Confirmed by Naila Leach ([id number]) on 08/26/2022 1:34:29 PM Normal [facility] Laboratory - Chemistry and C hemistry - challengeon 08-25-2022 Anion gap [Moles/Vol] 11 mmol/L 10 - 20 [facility] Work Phone: Calcium [Mass/Vol] 8.9 mg/dL 8.6 - 10.3 [facility] Work Phone: Chloride [Moles/Vol] 104 mmol/L 98 - 107 [facility] Work Phone: CO2 [Moles/Vol] 26 mmol/L 21 - 32 [facility] Work Phone: Creatinine [Mass/Vol] 0.76 mg/dL See Below [facility] Work Phone: Comment on above: Reference Range: 0.5 0 - 1.05 Glucose [Mass/Vol] 99 mg/dL 74 - 99 [facility] Work Phone: Potassium [Moles/Vol] 3.8 mmol/L 3.5 - 5.3 [facility] Work Phone: Sodium [Moles/Vol] 137 mmol/L 136 - 145 [facility] Work Phone: Urea nitrogen [Mass/Vol] 16 mg/dL 6 - 23 [facility] Work Phone: Laboratory - Hematology and Cell countson 08-25-2022 Erythrocyte distribution width (RBC) [Ratio] 12.6 % See Below [facility] Work Phone: Comment on above: Reference Range: 11. 5 - 14.5 Hematocrit (Bld) [Volume fraction] 38.4 % See Below [facility] Work Phone: Comment on above: Reference Range: 36. 0 - 46.0 Hemoglobin (Bld) [Mass/Vol] 13.1 g/dL See Below [facility] Work Phone: Comment on above: Reference Range: 12. 0 - 16.0 MCHC (RBC) [Mass/Vol] 34.1 g/dL See Below [facility] Work Phone: Comment on above: Reference Range: 32. 0 - 36.0 MCV (RBC) [Entitic vol] 92 fL 80 - 100 [facility] Work Phone: [phone] Platelets (Bld) [#/Vol] 248 10*3/uL 150 - 450 [facility] Work Phone: [phone] RBC (Bld) [#/Vol] 4.18 {x10E12/L} See Below [facility] Work Phone: Comment on above: Reference Range: 4.0 0 - 5.20 WBC (Bld) [#/Vol] 9.6 10*3/uL 4.4 - 11.3 [facility] Work Phone: MAGNESIUMon 08-25-2022 Magnesium [Mass/Vol] 1.91 mg/dL Normal 1.60 - 2.40 [facility] Comment on above: Performed By: #### M G #### [address] [id number] Magnesium, Serumon Magnesium [Mass/Vol] 1.91 mg/dL See Below [facility] Work Phone: Comment on above: Reference Range: 1.6 0 - 2.40 No Panel Informationon 08-25 [email or web address]?R etrieveTestByDateTime?Patie gmJO=[id number]&Date= 023&Time=06%3a43%3a42%3a00& TestType=ECG&Site=11&Output Type=PDF&Ext=PDF [facility] DO Work Phone: Normal sinus rhythm MP-No r[facility] DO Work Phone: Borderline Abnormal MP-No r[facility] DO Work Phone: [phone] [facility] DO Work Phone: [phone] [facility] DO Work Phone: [phone] [facility] DO Work Phone: [phone] [facility] DO Work Phone: [phone] [facility] DO Work Phone: [phone] [facility] DO Work Phone: [phone] [facility] DO Work Phone: [phone] [facility] DO Work Phone: [phone] [facility] DO Work Phone: [phone] [facility] DO Work Phone: [phone] [facility] DO Work Phone: [phone] [facility] DO Work Phone: [phone] [facility] DO Work Phone: [phone] [facility] DO Work Phone: >[phone] [facility] Work Phone: Comment on above: CALCULATIONS OF LINDSEY MATED GFR ARE PERFORMED USING THE 2020 CKD-EPI STUDY REFIT EQUATION WITHOUT THE RACE VARIABLE FOR THE IDMS-TRACEABLE CREATININE METHODS.https://jasn.asnjournals.org/content/early/ASN. 3360742404 BASIC METABOLIC PANELon 03-0 GFR/1.73 sq M.predicted among non-blacks MDRD (S/P/Bld) [Vol rate/Area] 90 mL/min/{1.73_m2} Normal >90 [facility] Comment on above: Result Comment: CALC ULATIONS OF ESTIMATED GFR ARE PERFORMED USING THE 2020 CKD-EPI STUDY REFIT EQUATION WITHOUT THE RACE VARIABLE FOR THE IDMS-TRACEABLE CREATININE METHODS. https://jasn.asnjournals.org/content//ASN.66085786 88 Performed By: #### T RPHS #### [address] [id number] HCO3 (Bld) [Moles/Vol] 25 mmol/L Normal 21 - 32 [facility] Comment on above: Performed By: #### T RPHS #### [address] [id number] Anion gap [Moles/Vol] 12 mmol/L Normal 10 - 20 [facility] [place] Work Phone: Comment on above: Performed By: #### T RPHS #### [address] [id number] Calcium [Mass/Vol] 8.9 mg/dL Normal 8.6 - 10.3 [facility] [place] Work Phone: Comment on above: Performed By: #### T RPHS #### [address] [id number] Chloride [Moles/Vol] 104 mmol/L Normal 98 - 107 [facility] [place] Work Phone: Comment on above: Performed By: #### T RPHS #### [address] [id number] Creatinine [Mass/Vol] 0.78 mg/dL Normal 0.50 - 1.05 [facility] Work Phone: Comment on above: Reference Range: 0.5 0 - 1.05 Performed By: #### T RP #### [address] [id number] Glucose [Mass/Vol] 109 mg/dL High 74 - 99 [facility] [place] Work Phone: Comment on above: Performed By: #### T RP #### [address] [id number] Potassium [Moles/Vol] 4.0 mmol/L Normal 3.5 - 5.3 [facility] Work Phone: Comment on above: Performed By: #### T RP #### [address] [id number] Sodium [Moles/Vol] 137 mmol/L Normal 136 - 145 [facility] Work Phone: Comment on above: Performed By: #### T RP #### [address] [id number] Urea nitrogen [Mass/Vol] 17 mg/dL Normal 6 - 23 [facility] Work Phone: Comment on above: Performed By: #### T RP #### [address] [id number] CBCon 08-24-2022 Erythrocyte distribution width (RBC) [Ratio] 12.6 % Normal 11.5 - 14.5 [facility] Comment on above: Performed By: #### C BC #### [address] [id number] Hematocrit (Bld) [Volume fraction] 39.8 % Normal 36.0 - 46.0 [facility] Comment on above: Performed By: #### C BC #### [address] [id number] Hemoglobin (Bld) [Mass/Vol] 13.5 g/dL Normal 12.0 - 16.0 [facility] Comment on above: Performed By: #### C BC #### [address] [id number] MCHC (RBC) [Mass/Vol] 33.9 g/dL Normal 32.0 - 36.0 [facility] Comment on above: Performed By: #### C BC #### [address] [id number] MCV (RBC) [Entitic vol] 92 fL Normal 80 - 100 [facility] Comment on above: Performed By: #### C BC #### [address] [id number] Platelets (Bld) [#/Vol] 264 10*3/uL Normal 150 - 450 [facility] Comment on above: Performed By: #### C BC #### [address] [id number] RBC 4.32 x10E12/L Normal 4.00 - 5.20 [facility] Comment on above: Performed By: #### C BC #### [address] [id number] WBC (Bld) [#/Vol] 9.3 10*3/uL Normal 4.4 - 11.3 [facility] Comment on above: Performed By: #### C BC #### [address] [id number] Daily Progress Note-Electrop hysiologyon 08-24-2022 Daily Progress Note-Electrophysiol ogy Service: Electrophysiology Subjective Data: RASHEEDA HANNA is [...] day Objective Data: Objective Information: T PRBPMAPSpO2 Value36.792877/330700% Date/Time08/24 7: 7: 7: 7: 7:20 Range(36.1C [...] Updated: 24-Aug-2022 13:51 by Federico Wing) Normal [facility] Daily Progress Note-Medicine on 08-24-2022 Daily Progress [...] resolved. Objective Data: Objective Information: T PRBPMAPSpO2 Value36.369245/308368% Date/Time08/24 15: 15: 15: 15: 15:18 Range(36.1C [...] Updated: 24-Aug-2022 16:43 by Skip Kelly) Normal [facility] Discharge [id number] Discharge Profile2 Discharge Orders: Anticipated Discharge Date: Anticipated Discharge [id number] Hospital Providers: Provider RoleProvider Name AttendingSkip Kelly Alberto DNAR: Code Status at Discharge: Full Code Activity: activity as tolerated. Provider FINAL REVIEW of Orders: Final Review: Final Review of Medication Reconciliation and Orders Completedby Physician Reviewing Viki Kelly MD at 25-Aug-2022 13:14:58 Appointments: Follow-Up Appointment 01: Physician/Dept/ServiceDr. Wing Reason for ReferralElectrophysiology follow-up Scheduled Date/[id number] 11:45 [facility] office in [address] 320 Phone [phone] Other Clinician Instructions: Other Instructions: Other Clinician InstructionsPlease follow up in the [place] as discussed with EP for repeat EKGs on monday 08/28 and tuesday 08/29. You will be increasing your flecainide to 75mg twice daily on Sunday. Please call the office or return to the hospital if you have worsening chest pain, shortness of breath, if you pass out, or have any other concerning symptoms. Electronic Signatures: Felicita Bhagat (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 REPAIRER MAINTENANCE) (Signed 24-Aug-2022 14:30) Authored: Discharge Orders, Appointments, Gold Form - Press Manager Summary Skip Kelly) (Signed 25-Aug-2022 13:14) Authored: Discharge Orders, Provider FINAL REVIEW of Orders, Other Clinician Instructions Last Updated: 25-Aug-2022 13:14 by Skip Kelly) Normal [facility] Electrocardiogram 12 Leadon 08-24-2022 Electrocardiogram 12 Lead Ventricular Rate 69 Atrial Rate 69 P-R Interval 136 QRS Duration 82 Q-T Interval 398 QTC Calculation(Bazett) 426 P [place] 39 R [place] 48 T [place] 45 QRS Count 11 Q Onset 218 P Onset 150 P Offset 193 T Offset 417 QTC Fredericia 417 Diagnosis Class Borderline Abnormal Diagnosis Sinus rhythm with frequent premature ventricular complexes in a pattern of bigeminy Otherwise normal ECG When compared with ECG of 24-AUG-2022 06:30, No significant change was found Confirmed by Naila Leach ([id number]) on 08/26/2022 1:28:10 PM Normal [facility] Electrocardiogram 12 Lead Ventricular Rate 62 Atrial Rate 62 P-R Interval 162 QRS Duration 86 Q-T Interval 392 QTC Calculation(Bazett) 397 P [place] 28 R [place] 46 T [place] 42 QRS Count 10 Q Onset 219 [...] no longer present Confirmed by Federico Wing ([id number]) on 08/24/2022 8:32:51 AM Normal [facility] Laboratory - Chemistry and C hemistry - challengeon 08-24-2022 CO2 [Moles/Vol] 25 mmol/L 21 - 32 [facility] Work Phone: [phone] Laboratory - Hematology and Cell countson 08-24-2022 Erythrocyte distribution width (RBC) [Ratio] 12.6 % See Below [facility] Work Phone: [phone] Comment on above: Reference Range: 11. 5 - 14.5 Hematocrit (Bld) [Volume fraction] 39.8 % See Below [facility] Work Phone: [phone] Comment on above: Reference Range: 36. 0 - 46.0 Hemoglobin (Bld) [Mass/Vol] 13.5 g/dL See Below [facility] Work Phone: [phone] Comment on above: Reference Range: 12. 0 - 16.0 MCHC (RBC) [Mass/Vol] 33.9 g/dL See Below [facility] Work Phone: [phone] Comment on above: Reference Range: 32. 0 - 36.0 MCV (RBC) [Entitic vol] 92 fL 80 - 100 [facility] Work Phone: [phone] Platelets (Bld) [#/Vol] 264 10*3/uL 150 - 450 [facility] Work Phone: [phone] RBC (Bld) [#/Vol] 4.32 {x10E12/L} See Below [facility] Work Phone: [phone] Comment on above: Reference Range: 4.0 0 - 5.20 WBC (Bld) [#/Vol] 9.3 10*3/uL 4.4 - 11.3 [facility] [place] Work Phone: Magnesium, Serumon 3 Magnesium [Mass/Vol] 2.00 mg/dL Normal 1.60 - 2.40 [facility] Work Phone: Comment on above: Reference Range: 1.6 0 - 2.40 Performed By: #### M G #### [address] [id number] No Panel Informationon 08-24 [email or web address]/[email or web address]?R etrieveTestByDateTime?Patie uxYM=[id number]&Date= 023&Time=20%3a23%3a14%3a00& TestType=ECG&Site=11&Output Type=PDF&Ext=PDF [facility] DO Work Phone: [phone] Sinus rhythm with fr equent premature ventricular complexes in a pattern of bigeminy [facility] DO Work Phone: Borderline Abnormal [facility] DO Work Phone: [phone] [facility] DO Work Phone: [phone] [facility] DO Work Phone: [phone] [facility] DO Work Phone: [phone] [facility] DO Work Phone: [phone] [facility] DO Work Phone: [phone] [facility] DO Work Phone: [phone] [facility] DO Work Phone: [phone] [facility] DO Work Phone: [phone] [facility] DO Work Phone: [phone] [facility] DO Work Phone: 1 [facility] DO Work Phone: [phone] [facility] DO Work Phone: [phone] [facility] DO Work Phone: [email or web address]://[email or web address] – [email or web address] [email or web address]/[email or web address]?R etrieveTestByDateTime?Patie fsZF=[id number]&Date= 023&Time=%3a30%3a53%3a00& TestType=ECG&Site=11&Output Type=PDF&Ext=PDF [facility] Work Phone: [phone] Sinus rhythm with occasional premature ventricular complexes [facility] Work Phone: [phone] Borderline Abnormal -[facility] Work Phone: [phone] [facility] Work Phone: [phone] [facility] Work Phone: [phone] [facility] Work Phone: [phone] [facility] Work Phone: [phone] [facility] Work Phone: [phone] [facility] Work Phone: [phone] [facility] Work Phone: 1 [facility] Work Phone: [phone] [facility] Work Phone: [phone] [facility] Work Phone: [phone] [facility] [place] Work Phone: [phone] [facility] [place] Work Phone: [phone] [facility] Work Phone: [phone] [facility] [place] Work Phone: [phone] 90 {mL/min/1.73m2} >90 [facility] Work Phone: [phone] Comment on above: CALCULATIONS OF ILNDSEY MATED GFR ARE PERFORMED USING THE 2020 CKD-EPI STUDY REFIT EQUATION WITHOUT THE RACE VARIABLE FOR THE IDMS-TRACEABLE CREATININE METHODS.https://jasn.asnjournals.org/content//ASN. 0539100241 Order Reconciliationon 08-24 Order Reconciliation Page 1 Discharge Reconciliation Document Reconciliation Type: Discharge requested on behalf of Skip Kelly (Physician) done by Skip Kelly) Discharge - Partial Reconciliation: 24-Aug-2022 09:08 by: Kayla Shaw ([facility]) Discharge - Partial Reconciliation: 25-Aug-2022 09:53 by: Kayla Shaw ([facility]) Discharge - Partial Reconciliation: 25-Aug-2022 12:31 by: Kayla Shaw ([facility]) Discharge - Reconciliation: 25-Aug-2022 13:15 by: Skip [...] solifenacin TabletDose = 5 mg Oral DailyPATIENTS [facility] 25-Aug-2022 12:17 Non-Formulary Medication is not required Pantoprazole Enteric Co (more content not included)... Normal [facility] Admission Risk Screen - Adul ton 08-23-2022 [...] AlertFor Ebola-like Symptoms: Isolate Patient and Notify Provider/[employer] For Contact: Notify Provider/[employer] Advance Directive: Advance Directive/DNRno Advance Directive Information [...] Learning Preferencesskill demonstration Cultural Considerationsnone Developmental Considerationsnone Anglican Considerationsnone Learning Assessment (Other Learner): Other learner availableno Depression Screen: During the past month, have you often been bothered by feeling down, depressed or hopelessyes During the past month, have you often had little interest or pleasure in doing thingsno Have you had any thoughts of harming anyone elseno (1) [place] Suicide: Risk Screen Not Applicable/Able to Answerable to be screened In the Past Month: Have you wished you were or could go to sleep and not wake upno(1) In the Past Month: Have you had any actual thoughts of killing yourself no(1) Lifetime: Have you ever done, started to do, or prepared to do anything to end your lifeno [place] Suicide Risknegative Adult Nutrition Screen: Have you [...] Spiritual Screen: Are there any cultural, spiritual, hindu practices/values/needs that are important for us to knowno CAGE: Is this an injure (more content not included)... Normal [facility] BASIC METABOLIC PANELon 03-0 Anion gap [Moles/Vol] 11 mmol/L Normal 10 - 20 [facility] Comment on above: Performed By: #### B MP #### [address] [id number] Calcium [Mass/Vol] 8.9 mg/dL Normal 8.6 - 10.3 [facility] Comment on above: Performed By: #### B MP #### [address] [id number] Chloride [Moles/Vol] 102 mmol/L Normal 98 - 107 [facility] Comment on above: Performed By: #### B MP #### [address] [id number] Creatinine [Mass/Vol] 0.92 mg/dL Normal 0.50 - 1.05 [facility] Comment on above: Performed By: #### B MP #### [address] [id number] GFR/1.73 sq M.predicted among non-blacks MDRD (S/P/Bld) [Vol rate/Area] 74 mL/min/{1.73_m2} Normal >90 [facility] Comment on above: Result Comment: CALC ULATIONS OF ESTIMATED GFR ARE PERFORMED USING THE 2020 CKD-EPI STUDY REFIT EQUATION WITHOUT THE RACE VARIABLE FOR THE IDMS-TRACEABLE CREATININE METHODS. https://jasn.asnjournals.org/content/early//ASN.05989614 88 Performed By: #### B MP #### [address] [id number] Glucose [Mass/Vol] 103 mg/dL High 74 - 99 [facility] Comment on above: Performed By: #### B MP #### [address] [id number] HCO3 (Bld) [Moles/Vol] 26 mmol/L Normal 21 - 32 [facility] Comment on above: Performed By: #### B MP #### [address] [id number] Potassium [Moles/Vol] 3.8 mmol/L Normal 3.5 - 5.3 [facility] Comment on above: Performed By: #### B MP #### [address] [id number] Sodium [Moles/Vol] 135 mmol/L Low 136 - 145 [facility] Comment on above: Performed By: #### B MP #### [address] [id number] Urea nitrogen [Mass/Vol] 17 mg/dL Normal 6 - 23 [facility] Comment on above: Performed By: #### B MP #### [address] [id number] CBCon 08-23-2022 Erythrocyte distribution width (RBC) [Ratio] 12.5 % Normal 11.5 - 14.5 [facility] Comment on above: Performed By: #### C BC #### [address] [id number] Hematocrit (Bld) [Volume fraction] 39.7 % Normal 36.0 - 46.0 [facility] Comment on above: Performed By: #### C BC #### [address] [id number] Hemoglobin (Bld) [Mass/Vol] 13.6 g/dL Normal 12.0 - 16.0 [facility] Comment on above: Performed By: #### C BC #### [address] [id number] MCHC (RBC) [Mass/Vol] 34.3 g/dL Normal 32.0 - 36.0 [facility] Comment on above: Performed By: #### C BC #### [address] [id number] MCV (RBC) [Entitic vol] 93 fL Normal 80 - 100 [facility] Comment on above: Performed By: #### C BC #### [address] [id number] Platelets (Bld) [#/Vol] 256 10*3/uL Normal 150 - 450 [facility] Comment on above: Performed By: #### C BC #### [address] [id number] RBC 4.25 x10E12/L Normal 4.00 - 5.20 [facility] Comment on above: Performed By: #### C BC #### [address] [id number] WBC (Bld) [#/Vol] 9.2 10*3/uL Normal 4.4 - 11.3 [facility] Comment on above: Performed By: #### C BC #### [address] [id number] Consult-Electrophysiologyon 08-23-2022 Consult-Electrophys iology Service: Service: Electrophysiology Consult: Consult requested by (Attending Name): Skip Kelly Reason: symptomatic bradycardia, bigeminy History of Present Illness: HPI: RASHEEDA HANNA is a 51 year old Female evaluated in [facility] emergency room on 08/22/2022 secondary to palpitations, [...] Swelling, Hives/Urticaria Objective: Objective Information: T PRBPMAPSpO2 [id number]% Date/Time08/23 9: 9: 16:443 9: 0:113/8 9:05 Range(36.4C - 37C ) (38 - [...] 3:25:30 PM (more content not included)... Normal [facility] Daily Progress Note-Medicine on 08-23-2022 Daily Progress Note-Medicine Service: Medicine Subjective Data: RASHEEDA HANNA is a 51 year old Female who is Hospital Day # 2. Some bradycardia overnight. Feeling better today however, less dizziness. Still getting symptoms with positional changes however. No chest pain. No dyspnea. Objective Data: Objective Information: T PRBPMAPSpO2 [id number]% Date/Time08/23 14: 14: 16:443 14: 0:113 14:03 [...] Updated: 23-Aug-2022 16:31 by Skip Kelly) Normal [facility] Discharge Planning [id number] 0 08-23-2022 Discharge Planning Note2 Discharge Planning: Discharge DestinationHome Anticipated Discharge [id number] Discharge Planning 08/23/2022 1422 Care Transitions Note Rasheeda Hanna is a 51 year old female who was admitted to [facility] 08/22/2022 with dx of chest pain. Chart reviewed, sign writer hand spoke with patient- introduced self and explained role. Patient sitting up in bed. She is alert and oriented x3. Patient interacted well with sign writer hand and answered assessment questions appropriately. Demographics confirmed. PCP Dr. Kayla Dent who she saw in June and have follow-up in October. Pharmacy preference is [facility]. Prior to admission, lives with spouse in a 1 story home. Prior level of functioning independent no assistive device. She completed own adls and iadls. She is still working 42-50 hours a week. 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 She is currently denying any needs/ concerns. Her plan is home. Care Transitions to continue to monitor progression and address needs/ concerns as identified. ASHUTOSH Paulino Assessment: Discharge Planning Assessment [id number] Primary Contact Name and [phone] (spouse) He(1) Lives Withadult child(jose); dependent child(jose); spouse(1) Living Arrangementshouse(1) Stated Reason for AdmissionChest pain dizzy and SOB(1) [place] Resource/Environmental Concernsnon(1) Anticipated Transition [place](1) Services Anticipated at Transitionnon(1) Electronic Signatures: Lou Ferrer (HARRIET) (Signed 23-Aug-2022 14:34) Authored: Discharge Planning, Assessment Last Updated: 23-Aug-2022 14:34 by Lou Ferrer (HARRIET) References: 1. Data Referenced From Patient Profile - Adult v2 22-Aug-2022 22:19 Normal [facility] Laboratory - Chemistry and C hemistry - challengeon 08-23-2022 Anion gap [Moles/Vol] 11 mmol/L 10 - 20 [facility] Work Phone: Calcium [Mass/Vol] 8.9 mg/dL 8.6 - 10.3 [facility] Work Phone: Chloride [Moles/Vol] 102 mmol/L 98 - 107 [facility] Work Phone: CO2 [Moles/Vol] 26 mmol/L 21 - 32 [facility] Work Phone: [phone] Creatinine [Mass/Vol] 0.92 mg/dL See Below [facility] Work Phone: Comment on above: Reference Range: 0.5 0 - 1.05 Glucose [Mass/Vol] 103 mg/dL above high threshold 74 - 99 [facility] Work Phone: [phone] Potassium [Moles/Vol] 3.8 mmol/L 3.5 - 5.3 [facility] Work Phone: [phone] Sodium [Moles/Vol] 135 mmol/L below low threshold 136 - 145 [facility] Work Phone: [phone] Urea nitrogen [Mass/Vol] 17 mg/dL 6 - 23 [facility] Work Phone: [phone] Laboratory - Hematology and Cell countson 08-23-2022 Erythrocyte distribution width (RBC) [Ratio] 12.5 % See Below [facility] Work Phone: [phone] Comment on above: Reference Range: 11. 5 - 14.5 Hematocrit (Bld) [Volume fraction] 39.7 % See Below [facility] Work Phone: [phone] Comment on above: Reference Range: 36. 0 - 46.0 Hemoglobin (Bld) [Mass/Vol] 13.6 g/dL See Below [facility] Work Phone: [phone] Comment on above: Reference Range: 12. 0 - 16.0 MCHC (RBC) [Mass/Vol] 34.3 g/dL See Below [facility] Work Phone: [phone] Comment on above: Reference Range: 32. 0 - 36.0 MCV (RBC) [Entitic vol] 93 fL 80 - 100 [facility] Work Phone: [phone] Platelets (Bld) [#/Vol] 256 10*3/uL 150 - 450 [facility] Work Phone: [phone] RBC (Bld) [#/Vol] 4.25 {x10E12/L} See Below [facility] Work Phone: [phone] Comment on above: Reference Range: 4.0 0 - 5.20 WBC (Bld) [#/Vol] 9.2 10*3/uL 4.4 - 11.3 [facility] Work Phone: [phone] No Panel Informationon 08-23 74 {mL/min/1.73m2} >90 [facility] Work Phone: Comment on above: CALCULATIONS OF LINDSEY MATED GFR ARE PERFORMED USING THE 2020 CKD-EPI STUDY REFIT EQUATION WITHOUT THE RACE VARIABLE FOR THE IDMS-TRACEABLE CREATININE METHODS.https://jasn.asnjournals.org/content/early//ASN. 4953372399 Patient Profile - Adult v2on 08-23-2022 Patient Profile - Adult v2 Profile: Initial Info: How to be AddressedPaula(1) Spoken Language PreferredEnglish (1) Stated Reason for AdmissionChest pain dizzy and SOB Primary Contact Name and [phone] (spouse) He Wants Family/Rep Notified of Admissionn/a; family present Notify PCPdeferred, unable to answer Informed of Patient Visiting Rightsyes [place] Employment Statusemployed Patient Belongingsremains with patient Patient Belongings Remaining with Patientcell phone/electronics; vision aids Medications Brought to Hospitalno General Health: Blood Avoidance/Restrictionsnone( 1) Previous Transfusion Reactionno(1) Weight in kg82.8 kilogram(s) Weight in qpo963.5 pound(s) Weight Methodactual (measured) Scale Typestanding Height [...] Arrangementshouse Services Anticipated at Transitionnone Anticipated Transition [place] Significant IndicatorsComplete Information Review: Allergies, Home Meds and Significant Events have been Reviewed and Verified with Patient/Familyyes ALLERGY, INTOLERANCE, ADVERSE EVENT: Allergies: NKDA: Active Shell Fish: Food, Facial Swelling, Hives/Urticaria, Active Electronic Signatures: Olga Reyes (RN) (Signed 22-Aug-2022 22:30) Authored: Initial Info, General Health, RSP Based Care, Substance, Health Mgmt, Relationship/Environ, Additional Information Last Updated: 22-Aug-2022 22:30 by Olga Reyes (RN) References: 1. Data Referenced From Patient Profile - Preop v3 21-Apr-2021 10:03 2. Data Referenced From 1. Vital Signs 22-Aug-2022 14:46 3. Data Referenced From History and Physical 22-Aug-2022 17:58 Normal [facility] BASIC METABOLIC PANELon 03-0 ANION GAP Canceled Normal [facility] Comment on above: Order Comment: TEST BASIC METABOLIC PANEL WAS CANCELLED, 08/22/2022 20:12 This order is Barbi draw. Retiming 08/22/2022 20:12. Performed By: #### T RPHS #### [address] [id number] BICARBONATE Canceled Normal [facility] Comment on above: Order Comment: TEST BASIC METABOLIC PANEL WAS CANCELLED, 08/22/2022 20:12 This order is Barbi draw. Retiming 08/22/2022 20:12. Performed By: #### T RPHS #### [address], [place] [id number] CALCIUM Canceled Normal [facility] Comment on above: Order Comment: TEST BASIC METABOLIC PANEL WAS CANCELLED, 08/22/2022 20:12 This order is Barbi draw. Retiming 08/22/2022 20:12. Performed By: #### T RPHS #### [address], [place] [id number] CHLORIDE Canceled Normal [facility] Comment on above: Order Comment: TEST BASIC METABOLIC PANEL WAS CANCELLED, 08/22/2022 20:12 This order is Barbi draw. Retiming 08/22/2022 20:12. Performed By: #### T RPHS #### [address], [place] [id number] CREATININE Canceled Normal [facility] Comment on above: Order Comment: TEST BASIC METABOLIC PANEL WAS CANCELLED, 08/22/2022 20:12 This order is Barbi draw. Retiming 08/22/2022 20:12. Performed By: #### T RPHS #### [address] [id number] eGFR FEMALE Canceled Normal [facility] Comment on above: Order Comment: TEST BASIC METABOLIC PANEL WAS CANCELLED, 08/22/2022 20:12 This order is Barbi draw. Retiming 08/22/2022 20:12. Result Comment: CALC ULATIONS OF ESTIMATED GFR ARE PERFORMED USING THE 2020 CKD-EPI STUDY REFIT EQUATION WITHOUT THE RACE VARIABLE FOR THE IDMS-TRACEABLE CREATININE METHODS. https://jasn.asnjournals.org/content/early/ASN.59835548 88 Performed By: #### T RPHS #### [address] [id number] eGFR MALE Canceled Normal [facility] Comment on above: Order Comment: TEST BASIC METABOLIC PANEL WAS CANCELLED, 08/22/2022 20:12 This order is Barbi draw. Retiming 08/22/2022 20:12. Result Comment: CALC ULATIONS OF ESTIMATED GFR ARE PERFORMED USING THE 2020 CKD-EPI STUDY REFIT EQUATION WITHOUT THE RACE VARIABLE FOR THE IDMS-TRACEABLE CREATININE METHODS. https://jasn.asnjournals.org/content/early/ASN.10917969 88 Performed By: #### T RPHS #### [address] [id number] GLUCOSE Canceled Normal [facility] Comment on above: Order Comment: TEST BASIC METABOLIC PANEL WAS CANCELLED, 08/22/2022 20:12 This order is Barbi draw. Retiming 08/22/2022 20:12. Performed By: #### T RPHS #### [address] [id number] POTASSIUM Canceled Normal [facility] Comment on above: Order Comment: TEST BASIC METABOLIC PANEL WAS CANCELLED, 08/22/2022 20:12 This order is Barbi draw. Retiming 08/22/2022 20:12. Performed By: #### T RP #### [address] [id number] SODIUM Canceled Normal [facility] Comment on above: Order Comment: TEST BASIC METABOLIC PANEL WAS CANCELLED, 08/22/2022 20:12 This order is Barbi draw. Retiming 08/22/2022 20:12. Performed By: #### T RP #### [address] [id number] UREA NITROGEN Canceled Normal [facility] Comment on above: Order Comment: TEST BASIC METABOLIC PANEL WAS CANCELLED, 08/22/2022 20:12 This order is Barbi draw. Retiming 08/22/2022 20:12. Performed By: #### T RP #### [address] [id number] CBCon 08-22-2022 HCT Canceled Normal [facility] Comment on above: Order Comment: TEST CBC WAS CANCELLED, 08/22/2022 20:12 This order is for AM draw. Kroczxob63/07/2023 20:12. Performed By: #### M G #### [address] [id number] HGB Canceled Normal [facility] Comment on above: Order Comment: TEST CBC WAS CANCELLED, 08/22/2022 20:12 This order is for AM draw. Htnjjnjo23/07/2023 20:12. Performed By: #### M G #### [address] [id number] MCHC Canceled Normal [facility] Comment on above: Order Comment: TEST CBC WAS CANCELLED, 08/22/2022 20:12 This order is for AM draw. Xaehhtmo17/07/2023 20:12. Performed By: #### M G #### [address], [place] [id number] MCV Canceled Normal [facility] Comment on above: Order Comment: TEST CBC WAS CANCELLED, 08/22/2022 20:12 This order is for AM draw. Zfpokets19/07/2023 20:12. Performed By: #### M G #### [address], [place] [id number] NUCLEATED RBC Canceled Normal [facility] Comment on above: Order Comment: TEST CBC WAS CANCELLED, 08/22/2022 20:12 This order is for AM draw. Xlmruqdg68/07/2023 20:12. Performed By: #### M G #### [address], [place] [id number] PLT Canceled Normal [facility] Comment on above: Order Comment: TEST CBC WAS CANCELLED, 08/22/2022 20:12 This order is for AM draw. Ckdnqgde25/07/2023 20:12. Performed By: #### M G #### [address], [place] [id number] RBC Canceled Normal [facility] Comment on above: Order Comment: TEST CBC WAS CANCELLED, 08/22/2022 20:12 This order is for AM draw. Zudkgbex04/07/2023 20:12. Performed By: #### M G #### [address], [place] [id number] RDW-CV Canceled Normal [facility] Comment on above: Order Comment: TEST CBC WAS CANCELLED, 08/22/2022 20:12 This order is for AM draw. Nnnzrhys79/07/2023 20:12. Performed By: #### M G #### [address], [place] [id number] WBC Canceled Normal [facility] Comment on above: Order Comment: TEST CBC WAS CANCELLED, 08/22/2022 20:12 This order is for AM draw. Dzgcqcvl71/07/2023 20:12. Performed By: #### M G #### [address] [id number] CBC AND DIFFERENTIALon 08-22 % AUTOMATED IMMATURE GRAN 0.4 % Normal 0.0 - 0.9 [facility] Comment on above: Result Comment: Patricia ture Granulocyte Count (IG) includes promyelocytes, myelocytes and metamyelocytes but does not include bands. Percent differential counts (%) should be interpreted in the context of the absolute cell counts (cells/L). Performed By: #### T RPHS #### [address] [id number] Basophils (Bld) [#/Vol] 0.07 10*3/uL Normal 0.00 - 0.10 [facility] Comment on above: Performed By: #### T RPHS #### [address] [id number] Basophils/100 WBC (Bld) 0.7 % Normal 0.0 - 2.0 [facility] Comment on above: Performed By: #### T RPHS #### [address] [id number] Eosinophils (Bld) [#/Vol] 0.12 10*3/uL Normal 0.00 - 0.70 [facility] Comment on above: Performed By: #### T RPHS #### [address] [id number] Eosinophils/100 WBC (Bld) 1.2 % Normal 0.0 - 6.0 [facility] Comment on above: Performed By: #### T RPHS #### [address] [id number] Erythrocyte distribution width (RBC) [Ratio] 12.4 % Normal 11.5 - 14.5 [facility] Comment on above: Performed By: #### T RPHS #### [address] [id number] Hematocrit (Bld) [Volume fraction] 42.8 % Normal 36.0 - 46.0 [facility] Comment on above: Performed By: #### T RPHS #### [address] [id number] Hemoglobin (Bld) [Mass/Vol] 14.6 g/dL Normal 12.0 - 16.0 [facility] Comment on above: Performed By: #### T RPHS #### [address] [id number] Lymphocytes (Bld) [#/Vol] 2.38 10*3/uL Normal 1.20 - 4.80 [facility] Comment on above: Performed By: #### T RPHS #### [address] [id number] Lymphocytes/100 WBC (Bld) 22.9 % Normal 13.0 - 44.0 [facility] Comment on above: Performed By: #### T RPHS #### [address] [id number] MCHC (RBC) [Mass/Vol] 34.1 g/dL Normal 32.0 - 36.0 [facility] Comment on above: Performed By: #### T RPHS #### [address] [id number] MCV (RBC) [Entitic vol] 93 fL Normal 80 - 100 [facility] Comment on above: Performed By: #### T RPHS #### [address] [id number] Monocytes (Bld) [#/Vol] 0.80 10*3/uL Normal 0.10 - 1.00 [facility] Comment on above: Performed By: #### T RPHS #### [address] [id number] Monocytes/100 WBC (Bld) 7.7 % Normal 2.0 - 10.0 [facility] Comment on above: Performed By: #### T RPHS #### [address] [id number] Neutrophils (Bld) [#/Vol] 7.00 10*3/uL Normal 1.20 - 7.70 [facility] Comment on above: Performed By: #### T RPHS #### [address] [id number] Neutrophils/100 WBC (Bld) 67.1 % Normal 40.0 - 80.0 [facility] Comment on above: Performed By: #### T RPHS #### [address] [id number] Platelets (Bld) [#/Vol] 285 10*3/uL Normal 150 - 450 [facility] Comment on above: Performed By: #### T RPHS #### [address] [id number] RBC 4.58 x10E12/L Normal 4.00 - 5.20 [facility] Comment on above: Performed By: #### T RP #### [address] [id number] WBC (Bld) [#/Vol] 10.4 10*3/uL Normal 4.4 - 11.3 [facility] Comment on above: Performed By: #### T RPHS #### [address] [id number] COMPREHENSIVE PANELon 2022 Albumin [Mass/Vol] 4.3 g/dL Normal 3.4 - 5.0 [facility] Comment on above: Performed By: #### T RPHS #### [address] [id number] ALP [Catalytic activity/Vol] 80 U/L Normal 33 - 110 [facility] Comment on above: Performed By: #### T RPHS #### [address] [id number] ALT [Catalytic activity/Vol] 29 U/L Normal 7 - 45 [facility] Comment on above: Result Comment: Selam ents treated with Sulfasalazine may generate falsely decreased results for ALT. Performed By: #### T RPHS #### [address] [id number] Anion gap [Moles/Vol] 13 mmol/L Normal 10 - 20 [facility] Comment on above: Performed By: #### T RPHS #### [address] [id number] AST [Catalytic activity/Vol] 22 U/L Normal 9 - 39 [facility] Comment on above: Performed By: #### T RPHS #### [address] [id number] Bilirubin [Mass/Vol] 0.4 mg/dL Normal 0.0 - 1.2 [facility] Comment on above: Performed By: #### T RPHS #### [address] [id number] Calcium [Mass/Vol] 9.4 mg/dL Normal 8.6 - 10.3 [facility] Comment on above: Performed By: #### T RPHS #### [address] [id number] Chloride [Moles/Vol] 102 mmol/L Normal 98 - 107 [facility] Comment on above: Performed By: #### T RPHS #### [address] [id number] Creatinine [Mass/Vol] 0.93 mg/dL Normal 0.50 - 1.05 [facility] Comment on above: Performed By: #### T RPHS #### [address] [id number] GFR/1.73 sq M.predicted among non-blacks MDRD (S/P/Bld) [Vol rate/Area] 73 mL/min/{1.73_m2} Normal >90 [facility] Comment on above: Result Comment: CALC ULATIONS OF ESTIMATED GFR ARE PERFORMED USING THE 2020 CKD-EPI STUDY REFIT EQUATION WITHOUT THE RACE VARIABLE FOR THE IDMS-TRACEABLE CREATININE METHODS. https://jasn.asnjournals.org/content//ASN.98017714 88 Performed By: #### T RPHS #### [address] [id number] Glucose [Mass/Vol] 92 mg/dL Normal 74 - 99 [facility] Comment on above: Performed By: #### T RPHS #### [address] [id number] HCO3 (Bld) [Moles/Vol] 28 mmol/L Normal 21 - 32 [facility] Comment on above: Performed By: #### T RPHS #### [address] [id number] Potassium [Moles/Vol] 3.8 mmol/L Normal 3.5 - 5.3 [facility] Comment on above: Performed By: #### T RPHS #### [address] [id number] Protein [Mass/Vol] 7.8 g/dL Normal 6.4 - 8.2 [facility] Comment on above: Performed By: #### T RPHS #### [address] [id number] Sodium [Moles/Vol] 139 mmol/L Normal 136 - 145 [facility] Comment on above: Performed By: #### T RPHS #### [address] [id number] Urea nitrogen [Mass/Vol] 16 mg/dL Normal 6 - 23 [facility] Comment on above: Performed By: #### T RPHS #### [address] [id number] Complete Blood Count + Diffe aaliyah 08-22-2022 Basophils/100 WBC (Bld) 0.7 % 0.0 - 2.0 [facility] Work Phone: Erythrocyte distribution width (RBC) [Ratio] 12.4 % See Below [facility] Work Phone: Comment on above: Reference Range: 11. 5 - 14.5 Hematocrit (Bld) [Volume fraction] 42.8 % See Below [facility] Work Phone: [phone] Comment on above: Reference Range: 36. 0 - 46.0 Hemoglobin (Bld) [Mass/Vol] 14.6 g/dL See Below [facility] Work Phone: [phone] Comment on above: Reference Range: 12. 0 - 16.0 Lymphocytes/100 WBC (Bld) 22.9 % See Below [facility] Work Phone: [phone] Comment on above: Reference Range: 13. 0 - 44.0 MCHC (RBC) [Mass/Vol] 34.1 g/dL See Below [facility] Work Phone: [phone] Comment on above: Reference Range: 32. 0 - 36.0 MCV (RBC) [Entitic vol] 93 fL 80 - 100 [facility] Work Phone: [phone] Monocytes/100 WBC (Bld) 7.7 % 2.0 - 10.0 [facility] Work Phone: [phone] Neutrophils/100 WBC (Bld) 67.1 % See Below [facility] Work Phone: [phone] Comment on above: Reference Range: 40. 0 - 80.0 Platelets (Bld) [#/Vol] 285 10*3/uL 150 - 450 [facility] Work Phone: [phone] RBC (Bld) [#/Vol] 4.58 {x10E12/L} See Below [facility] Work Phone: [phone] Comment on above: Reference Range: 4.0 0 - 5.20 WBC (Bld) [#/Vol] 10.4 10*3/uL 4.4 - 11.3 [facility] Work Phone: [phone] Complete Blood Count + Differential 0.07 {x10E9/L} See Below [facility] Work Phone: Comment on above: Reference Range: 0.0 0 - 0.10 Complete Blood Count + Differential 0.12 {x10E9/L} See Below [facility] Work Phone: Comment on above: Reference Range: 0.0 0 - 0.70 Complete Blood Count + Differential 0.80 {x10E9/L} See Below [facility] Work Phone: Comment on above: Reference Range: 0.1 0 - 1.00 Complete Blood Count + Differential 2.38 {x10E9/L} See Below [facility] Work Phone: Comment on above: Reference Range: 1.2 0 - 4.80 Complete Blood Count + Differential 7.00 {x10E9/L} See Below [facility] Work Phone: Comment on above: Reference Range: 1.2 0 - 7.70 Complete Blood Count + Differential 1.2 % 0.0 - 6.0 [facility] Work Phone: Complete Blood Count + Differential 0.4 % 0.0 - 0.9 [facility] Work Phone: Comment on above: Immature [...] You may also be contacted by the [facility] to see if any of your [...] or Naproxen (Aleve) can also be used. Ngcq-iky-waerbzm cough and cold medicines can be used according to the instructions on the package. Some bqbr-qau-hhnvzbl medicines also contain acetaminophen. Make sure you [...] water are not available, use alcohol-based hand rcp. Avoid touching your eyes, nose, and mouth [...] 24 wan (more content not included)... Normal [facility] Electrocardiogram 12 Leadon 08-22-2022 Electrocardiogram 12 Lead Ventricular Rate 80 Atrial Rate 80 QRS Duration 132 Q-T Interval 400 QTC Calculation(Bazett) 461 R [place] 74 T [place] -9 QRS Count 14 Q Onset 207 T Offset 407 QTC Fredericia 440 Diagnosis Class Abnormal Diagnosis sinus rhythm with frequent PAC's in a pattern of atrial bigeminy Nonspecific intraventricular block Cannot rule out Anteroseptal infarct , age undetermined T wave abnormality, consider inferior ischemia Abnormal ECG Confirmed by Federico Wing ([id number]) on 08/22/2022 3:25:30 PM Normal [facility] INFLUENZA A/B, COVID 2019 PC R,SYMPTOMATICon 08-22-2022 INFLUENZA A, PCR Not detected Normal Not Detected [facility] Comment on above: Result Comment: Resp iratory virus testing is performed routinely by PCR for Influenza A/B and RSV. Not Detected results do not preclude Influenza A/B or RSV infections since the adequacy of sample collection or low viral burden may impact the clinical sensitivity of this test method. Performed By: #### T [facility] #### [address] [id number] INFLUENZA B, PCR Not detected Normal Not Detected [facility] Comment on above: Result Comment: Resp iratory virus testing is performed routinely by PCR for Influenza A/B and RSV. Not Detected results do not preclude Influenza A/B or RSV infections since the adequacy of sample collection or low viral burden may impact the clinical sensitivity of this test method. Performed By: #### T [facility] #### [address] [id number] SARS-CoV-2 (COVID-19) RNA REYNALDO+probe Ql (Unsp spec) Not detected Normal Not Detected [facility] Comment on above: Result Comment: . This test has received FDA Emergency Use Authorization (EUA) and has been verified by [facility]. This test is only authorized for the duration of time that circumstances exist to justify the authorization of the emergency use of in vitro diagnostic tests for the detection of SARS-CoV-2 virus and/or diagnosis of COVID-19 infection under section 564(b)(1) of the Act, 21 U.S.C. 360bbb-3(b)(1), unless the authorization is terminated or revoked sooner. [facility] is certified under CLIA-88 as qualified to perform high complexity testing. Testing is performed in the [facility] laboratory located at [address] [place] [id number]. SARS-CoV-2/Flu/RSV Multiplex Test: Fact sheet for providers: https://www.fda.gov/media/709955/download Fact sheet for patients: https://www.fda.gov/media/964755/download Performed By: #### T [facility] #### [address] [id number] Lab Specimen Source Nasal, Nasopharyngeal Normal [facility] Comment on above: Performed By: #### T [facility] #### [address] [id number] INFLUENZA A/B, COVID 2019 PCR,SYMPTOMATIC Not detected See Below [facility] Work Phone: Comment on above: Reference Range: Not Detected.This test has received [facility] Emergency Use Authorization (EUA) and has been verified by [facility]. This test is only authorized for the duration of time that circumstances exist to justify the authorization of the emergency use of in vitro diagnostic tests for the detection of SARS-CoV-2 virus and/or diagnosis of COVID-19 infection under section 564(b)(1) of the Act, 21 U.S.C. 360bbb-3(b)(1), unless the authorization is terminated or revoked sooner. [facility] is certified under CLIA-88 as qualified to perform high complexity testing. Testing is performed in the [facility] laboratory located at [address] [place] [address].SARS-CoV-2/Flu/RSV Multiplex Test: Fact sheet for providers: https://www.fda.gov/media/156492/downloadFact sheet for patients: https://www.fda.gov/media/983491/download Reference Range: Not Detected Respiratory virus testing [...] dye [Mass/Vol] 4.3 g/dL 3.4 - 5.0 [facility] Work Phone: [phone] ALP [Catalytic activity/Vol] 80 U/L 33 - 110 [facility] Work Phone: [phone] ALT With P-5'-P [Catalytic activity/Vol] 29 U/L 7 - 45 [facility] Work Phone: [phone] Comment on above: Patients treated wit h Sulfasalazine may generate falsely decreased results for ALT. Anion gap [Moles/Vol] 13 mmol/L 10 - 20 [facility] Work Phone: [phone] AST With P-5'-P [Catalytic activity/Vol] 22 U/L 9 - 39 [facility] Work Phone: [phone] Bilirubin [Mass/Vol] 0.4 mg/dL 0.0 - 1.2 [facility] Work Phone: [phone] Calcium [Mass/Vol] 9.4 mg/dL 8.6 - 10.3 [facility] Work Phone: [phone] Chloride [Moles/Vol] 102 mmol/L 98 - 107 [facility] Work Phone: [phone] CO2 [Moles/Vol] 28 mmol/L 21 - 32 [facility] Work Phone: [phone] Creatinine [Mass/Vol] 0.93 mg/dL See Below [facility] Work Phone: [phone] Comment on above: Reference Range: 0.5 0 - 1.05 Glucose [Mass/Vol] 92 mg/dL 74 - 99 [facility] Work Phone: Potassium [Moles/Vol] 3.8 mmol/L 3.5 - 5.3 [facility] Work Phone: Protein [Mass/Vol] 7.8 g/dL 6.4 - 8.2 [facility] Work Phone: Sodium [Moles/Vol] 139 mmol/L 136 - 145 [facility] Work Phone: Urea nitrogen [Mass/Vol] 16 mg/dL 6 - 23 [facility] Work Phone: Laboratory - Coagulationon 0 08-22-2022 INR Coag (PPP) [Relative time] 1.1 {INR} 0.9 - 1.1 [facility] Work Phone: PT Coag (PPP) [Time] 12.6 s 9.8 - 13.4 [facility] Work Phone: MAGNESIUMon 08-22-2022 Magnesium [Mass/Vol] 2.05 mg/dL Normal 1.60 - 2.40 [facility] Comment on above: Performed By: #### M G #### [address] [id number] Magnesium, Serumon Magnesium [Mass/Vol] 2.05 mg/dL See Below [facility] Work Phone: Comment on above: Reference Range: 1.6 0 - 2.40 No Panel Informationon 08-22 73 {mL/min/1.73m2} >90 [facility] Work Phone: Comment on above: CALCULATIONS OF LINDSEY MATED GFR ARE PERFORMED USING THE 2020 CKD-EPI STUDY REFIT EQUATION WITHOUT THE RACE VARIABLE FOR THE IDMS-TRACEABLE CREATININE METHODS.https://jasn.asnjournals.org/content/early/ASN. 2660601940 https://UHMUSEXPRDWE B01:808 0/musescrithu/museweb.dll?R etrieveTestByDateTime?Sherice zyMR=[id number]&Date= 023&Time=14%3a40%3a33%3a00& TestType=ECG&Site=11&Output Type=PDF&Ext=PDF [facility] [place] Work Phone: [phone] sinus rhythm with fr equent PAC's in a pattern of atrial bigeminy [facility] [place] Work Phone: Abnormal [facility] [place] Work Phone: [phone] [facility] [place] Work Phone: [phone] [facility] [place] Work Phone: [phone] [facility] [place] Work Phone: [phone] [facility] [place] Work Phone: [phone] [facility] [place] Work Phone: [phone] [facility] [place] Work Phone: [phone] [facility] [place] Work Phone: [phone] [facility] [place] Work Phone: [phone] [facility] [place] Work Phone: [phone] [facility] [place] Work Phone: [phone] Order Reconciliationon 08-22 Order Reconciliation Page 1 Admission Reconciliation Document Reconciliation Type: ED to Observation requested on behalf of Brian Curran (Physician) done by Brian Curran) ED to Observation - Partial Reconciliation: 22-Aug-2022 17:56 by: Skip Kelly) ED to Observation - AutoLinked: 22-Aug-2022 20:30 by: Kaycee Benoit (ADMIN) ED to Observation - Reconciliation: 22-Aug-2022 20:44 by: Brian Curran) ED to Observation - Reset to Incomplete: 23-Aug-2022 19:31 by: Brian Curran) ED to Observation - Reconciliation: 23-Aug-2022 19:32 by: Brian Curran) Home MedicationsEnteredLast Dose TakenReconciled with current Order Reconciliation Comment/ Additional Information Aspirin Low Dose 81 orally once a [id number] Aspirin Chewable Tablet, ChewableDOSE = 81 mg [...] milliliter(s) injectable once a day, As Needed [id number] Reviewed and Held ferrous sulfate 200 mg (65 mg elemental iron) oral tablet 2 tab(s) orally once a [id number]-Tre-2265 Reviewed and Held metoprolol succinate 25 mg oral tablet, extended release 1 tab(s) orally once a rth39-Rao-1507 Reviewed and Held Multiple Vitamins oral tablet 1 tab(s) orally once a oqd40-Uks-8835 Reviewed and Held omeprazole 40 mg oral delayed release capsule 1 cap(s) orally once a day 22-Aug-2022 Pantoprazole Enteric Coated Tablet (PROTONIX)DOSE = 40 mg Oral Dailyomeprazole 40 mg oral delayed release capsule continued as the inpatient order Pantoprazole sertraline 50 mg oral tablet 1 tab(s) orally once a [id number]-Cpl-4181 Sertraline Tablet (ZOLOFT)DOSE = 50 mg Oral Dailysertraline 50 mg oral tablet continued as the inpatient order Sertraline solifenacin 5 mg oral tablet 1 tab(s) orally once a uqf05-Wxz-2999 Reviewed and Held Vitamin D3 1000 intl [...] Every 8 Hours and as Needed Normal [facility] PT/INRon 08-22-2022 PT Coag (PPP) [Time] 12.6 s Normal 9.8 - 13.4 [facility] Comment on above: Performed By: #### T [facility] #### [address] [id number] PT, INR 1.1 Normal 0.9 - 1.1 [facility] Comment on above: Performed By: #### T [facility] #### [address] [id number] Provider Note - ED v3on Provider Note [...] results: Troponin I, High Sensitivity Trending View [id number] 16:27:00 22-Aug-2022 15:09:00 Troponin I, High Sensitivity3 [...] Authorization (EUA) and has been verified by [facility]. This test is only authorized for the duration of time that circumsta Complete Blood Count + Differential 22-Aug-2022 15:09:00 ResultValue White Blood Cell Count 10.4 Red Blood Cell Count 4.58 HGB 14.6 HCT 42.8 MCV 93 MCHC 34.1 PLT 285 RDW-CV 12.4 Neutrophil % 67.1 Immature Granulocytes % 0.4 Lymphocyt (more content not included)... Normal [facility] Radiologyon 08-22-2022 XR Chest Single view Normal -[facility] Work Phone: TROPONIN I, HIGH SENSITIVITY on 08-22-2022 TROPONIN I, HIGH SENSITIVITY 3 ng/L Normal 0 - 13 [facility] Comment on above: Result Comment: . Less [...] performed using a different testing methodology at [facility] than at other [facility]. Direct result comparisons should only be made within the same method. Performed By: #### T [facility] #### [address] [phone] Tropinin I.cardiac panel High sensitivity method 3 ng/L 0 - 13 [facility] Work Phone: Comment on above: .Less [...] performed using a different testing methodology at [facility] than at other [facility]. Direct result comparisons should only be made within the same method. TROPONIN I, HIGH SENSITIVITY 3 ng/L Normal 0 - 13 [facility] Comment on above: Result Comment: . Less [...] performed using a different testing methodology at [facility] than at other [facility]. Direct result comparisons should only be made within the same method. Performed By: #### M G #### [address] [id number] TROPONIN I, HIGH SENSITIVITY 3 ng/L Normal 0 - 13 [facility] Comment on above: Result Comment: . Less [...] performed using a different testing methodology at [facility] than at other [facility]. Direct result comparisons should only be made within the same method. Performed By: #### T [facility] #### [address] [id number] Tropinin I.cardiac panel High sensitivity method 3 ng/L 0 - 13 [facility] Work Phone: Comment on above: .Less [...] performed using a different testing methodology at [facility] than at other [facility]. Direct result comparisons should only be made within the same method. Tropinin I.cardiac panel High sensitivity method 3 ng/L 0 - 13 [facility] Work Phone: Comment on above: .Less than [...] performed using a different testing methodology at [facility] than at other [facility]. Direct result comparisons should only be [...] obeys commands Best Verbal Response: (V5) oriented Doran Score: 15 Allergies: yes Patient has homicidal [...] 22-Aug-2022 14:49 by Michelle Herrera (RN) Normal [facility] Office Visit (Cardiology)on 08-18-2022 Follow-up visit Diagnoses/Problems [...] Use Screening; Status:Complete; Done: 18Aug2022 Patient Instructions PLEASE BRING ALL MEDICATIONS IN ORIGINAL BOTTLES [...] for the new patient portal platform through [facility]. If you have not received an [...] the decision made by me. 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 (more content not included)... Normal [facility] Tobacco Screening.on 023 Adult depression screening assessment No [facility] DO Work Phone: Fall risk assessment a) No falls within the last year [facility] [address] DO Work Phone: Tobacco use status [facility] b) No [facility] t 300 DO Work Phone: Heart and Vascular Office/Cl inic Noteon 08-08-2022 Heart and Vascular Office/Clinic Note Chief Complaint 4 week f/u History of Present Illness Rasheeda Hanna is a 51 year old female patient of Dr Gonzalez, recently changed care from Dr. Samara Roe, in [place], [place]. She has frequent ventricular ectopy. Normal [...] radial pulse with good extremity perfusion. Procedure [facility]- Dr Gonzalez 07/21/22 Findings LMT: Normal left [...] blockade. Discussed Sotalol Drug Load at [facility] vs EP referral. Will refer to EP for further work up/management Ordered: [facility] External Ambulatory Referral 2. NSVT (nonsustained ventricular tachycardia) (I47.29: Other ventricular tachycardia) EP referral Ordered: [facility] External Ambulatory Referral Follow-up With When Contact Information Carlos MCMAHON, Skip Katz Within [address] [place] [phone]- Additional Instructions: Problem List/Past Medical History Ongoing No qualifying data Historical No qualifying data Procedure/Surgical History Catheterization of left heart (07/14/2022), Carpal tunnel, section, Cholecystectomy, Tubal ligation, [place] tooth. Medications aspirin 81 mg Oral EC [...] Note; Skip Gonzalez MD 07/12/2022 17:01 EST [facility] Comment on above: Result Comment: Elec tronically Signed By: Luna DICKINSON CNP\.ayla\Date and Time Signed: 08/08/22 11:21 EST Progress Note-Nurseon 2022 Progress Note-Nurse [id number]:127 [facility] Coding Summary.on 08-07-2022 Coding Summary. CD:[id number] Gh0bWw+ PGhlYWQ+NQ0WPQKmM80yzAXggX8 LC2wYEM0CLXPBAXTICR9CJJ7mtK C4LRdvM2KwdsBf VfjbdYEyAH30RJn6FBQ3gImcDBl fmR5guYYeV6z6QiKwWG85vU00BE zuQKRaIhA6GfFtcxxhpFFx T6xfAhGdrIIcLuy+PHRhYmxlIHd ePBCpJRscXNHyDmAfmXupAJ2wEh 9yZGVyLWNvbGxhcHNlOiBj u6jxTTFzHRajBE3hdYgzX4ZtcQR 1ZKRmk1e5Ps62rQA+XGYeTOT2qX lfQGdbc158MwNbx4eeWUS0 vMJtZYjaVES2A89xo1V6ZCSiATF jZKH9fWR0zS3gzIirrjhkY6XtjF JfKjT5CTG3bGBglS2zhSfv nswgvC9rQqf+V20ZUB2IGNMSFR8 YVax1P2XtTappoUM+EY99XGFyQH 84cUEnmHApd2npyFc5NrLv GTQqOPB7nGobDKjvz2GeVQYnJ07 joRWgu5A0WNDxbFshdYSvVbGfgF W9fB6pECcyklbya4eldzbz Ydmfb0wrvy10xJ52C18hMIfjTYZ cLDL7VRGkSHFwhDnnsp7jzK7yXw 8+SLlmp8fno2rhfFu7AiKx FBNazaPzcNlnZSS6e2BkMu66P2I bqDwsq4UoSop2kn96nQOvz0A4sB B5VHuvICRyaI1mBIvfBkP1 QMAqCtUbwF74eZBxUFqdVk2twVh ooOijKA0fWDXvqedxPNEmbK0rOX BulUFitSgaED1cFTCxrraf t203QnTbCZV5OLQllDCbW1AhqA4 lApChJVEaUHLiZ0PhgWUvFIhxE2 32HBjwFtU4SKUzyjEuL3Yq NBJksSezSiZ2k2I8Ur0Zu0Yustp aFMG2NRmbJCXsFnKwSjXtXdP1V0 EeMzt6CVYrfJzoDM6rV4Tp SHRnavoifgvlqGY6EBYuEWTavS0 5kYUeZTsoLz5vl5Y8y855UQLvPC WaoV97Xy9axLgxYLOiqUQL hB3lgzjka3tmgidyEzIrXFUkERm 7JJp6KPWjtQbtEiPcVMQ8JpD6FS Z0iAScnZ5ksZkegibjdY9d Oyc+V46ruM3zJPS0RIO4klqeGWU uotDsDE59GY18B1BoJdpbwISdvX U+JOGqhjKumMayUL0jHfYm m0nva4OyNZbvJ5IlHLWoNJewZeq 5HPHdOUC5oOA7uH6gWBTjNSocz7 D4pDH5I1QwunLndp9ud2ji JPSuLVeiU26fgRYcr6L0VBPmjJB 1QZQjlCxtIeGkiJ15Wco+PGNvbG xcc8QhLwbgn8sgz5tpiWn7 MiJgZMGllbOcnMekMSU0l2TqHv5 3M05rSLycQZMhUEXdETMxYOBnnN yyrs7fmT6cMj4+PGNvbCB3 dLV7fZ3sEAYoRiQ2DKywP153QsU hvVWeEsirc3onx4spmVd0MaXdBS HlfrIzcAasYMT3g7KxRa71 L14oOSyyTZYpCIDkLPUzEIVgjZq glz4hyD4iRn6+HI7ft8ezoo02lJ 48dHI+KPUdLQK8gTjnQSbj RRZlvO1eLAfdViJ1MQLcMiUbsI3 4eRIaZTgbCx2jsLsylBioHR0nUG Npwyito096LeLpw6vvBBRt wCTpRUpyUWD4J68ip6K1CAWqOYM dEZF9tSI7iX7mjYifgutylWKpnS byskJyjNrwQWrlJRldB061 IHRvcDsnPlBhdGllbnQgTmFtZTo 0F1NbBvr8YXQveRbdFD8uyKWmUG yfDl4mxIlnfVaqOX7uEIKo ykoyd224ZxTwa0taNSJiiSYeHMg yDPI8Y69co4X2ABWzWFOpCHM6mE T0zG6quWkrtbdqjOVxrKko wgQiaFahBVsjZDqgB518YTAbeVz bGsYrbkHcXBZaoJH5PH43SD67eW Ptn0M1jHI2Q7EtAYYpbqry qrsmlOR6LBEtKNFkqK29Vj3ekBy xNy4lTBBdDOQ8LTGdbSCfZ5SpiS 1hNrMnIQCiVQHeA9DssPXw RCfyC511QScmCiV4PUHvlxPtO8R tDPMutTieZcD4p8C3Tv4YE3F6WK 33FU97eIZbl9M7dOL7Y6Xv EHUviutndccyaCD9UTKtTMIupB6 6Ex6jhJzyGr1bQEVkDQM8RXWyqN NaU4VveY2kHqLcKYZcZOZk M4OsjCBuXPinJ312FJhqJnV9NNU htqNjT5TmRHAvdDofUlS7i3F2Er 8IFJw0GI43AZ42pVRyb6M5 gPP5M2YeFRWnwhobjjurmSK0HCR tXTWiiP97Pd7znImaFm9jNSBnQN G5RABjsOBmI9NqfA1zHaDi CXYiLDEeM5RykXTfALslX700DXv kNcQ7DGYolaDqA3DhWLScgLrzEr Z4d2V1At0VSPQkCI64JHB5 wOG5IA51CI74Z8VeXazgoXPlpIT +PHRhYmxlIHdpZHRoPScxMDAlJy TccTuiGZ2pOb4xAOVlGEJd lSzubONmWbUfb4wqEFUpLAbwDZ8 xySkjE8PvhVK2KJIup6p3Tb37E9 6sJ9WiqCW+BKMugVU6xGS7 bE6vAdYbJfT5VMwjG368QbAhzUT nXnvur5ihi8xsyQj1YnD4HBWtcm TrjVodEOS9c1VkZu77N18a IHdpZHRoPSIxNSUiIHZhbGlnbj0 nkE7pRe5+VPHueVH1zNO6gN5tZz OtCzM0QSolG554MdXmzYUm Jhzez4rjd0jflSw0CyMyJXAjxmS dwAosTJL1r0FyMc15K5LbmVqan9 IsGuw1di61cZBjo0D7lEX6 C2SvEFQtdvdeoSTctCwcDR6sOYB hlyyoAEKivT0iUNIlN5v7GqQgXr B5SGsdW2KnsgJ9FSZxsIFm VYoqDAT9T61ax3H1CJBrNGVeRBP 8kGB1eJ4wcPkefjdztWMgxOmgqw RhiDwjXLjlVQkoT162PDDn bDbcWAHurB6gUACozUEyrFeiAF7 nCIGnatvwVf6SX6hZVyixFKMGKY EgSjwvdGQ+QWFuMJY0aMtx YJreXHNmrF0xOWByR1i0DiTeGaZ 4TDwsY3HdPKHanupfGu12kV9sEo ZpXaM1PPqjJ3SlbmN9AQIx aDKlZUfyOFJ6L35mg2F3EDPgLUE iZEF3gNF2vI6rtQdbmlkcaWBpeI fsvaIdaInzAWwsHPmoH344 UMKcoMkySnS0XoQ0ZiD8Bbi8I3K dDfv7MOXhxZgtEK1ufUTeHCbhEy 3ngZuwxBzaGZ5cAGUulcvr OESpbZ0uJYTqaNIlgUmrRK4lCSW ikxydq198GxVuMBZ9ZGGrpRRwH8 AgmS6nQzBpYJQqYFYsE8Xv vRFtTZepS659AMvcFkM0YRUwjoX cS6JkFNZjfQkgYuW5p0C9Fh15Cq BZZWFyczwvdGQ+PHRkIHN0 kNctVXjkSKFoyD8tTSFxX0h7YcW nMyC0ZTybK1PmNDSvvapxHm05fD 5nKbZvKyP6RHkdQ8GswoM0 DRZzpXFjYLlpTYI3F07jp7H2TCG xUDLmEPH0fJD0kI2tjQtydcrzrC VmdDsgdmVydGljYWwtYWxp K190SOXwnCcxKgKhvKAhWGxxcEJ +RCMkKYV6wYnsRJqjQKEjcS6xFP ItV7y0RlDcTsQ6CYyaJ2Yk QGOdosgvHn25nK1yPmOvRwZ1XZp zD9YwffD9EOTjxPJiWHyjFRJ3Y3 9em6P3WGDaZTUuSHA0rHG8 iW2qtYkzrcknvHKxfEysimIzrDb eWQgoWXccR551QIHroKvwSq73gC IevGlpsfE5L3OqYjhcnXG+ DK10IKIpOE68nJDoaFRnu4dvxNd 5QqUoVZDoGAT4sDmeUXsrh5LeIT YsO89tuVRhe7S2XYFclNnt mZNiJzHpcHB7bN2aXYlhbpqeb4t ncisfXjonc9mwav74kK95X60lGA dpZHRoPSIzMCUiIHZhbGln nj5moO9kPl5+GLWdgXY2oMU5cX4 xTwZjCcH0OStwZ653QmZrhVTyYk zad2xhj9ntrMi9AqBsNKCk dqOxxHwkMWS6r0WeCd21B81wEPw tCXIrDNSeMXHiKQUzrWtbam7erZ 9wIi8+VH2nr0awua18kP98 dHI+YSByANP3rQjhOXqpUUBqmA3 gVPozEtZ9YDYoFlEhaX81dVPoSH iaNz0peMrpyAhvCO6hCEHr yflwv999BrUvg1goMGHnuZBwZJv zJCX2Y90ok5M0UJPiOKJqDOS9kU K8kT9feTuzloywhJIpnFzg xqHqbDpjGMohGSqgZ185YXXksZj rPdRlqOYvV7urdfBXJR9qNgaewN Q+EISbULQ5kPfmDIzaCNMv yJ5qSDImG3i1KpRjJrK4MLdsF9V qsmK0IBNmiYUcIMBdmBOWdP3ijn rjx1qfygxqDjIwOQVjPFo8 IRe1YTSqqKqxIaLxORV8NcK8HDV 9yCNgtG7vpMulebdahZ4qZgk+Rk lOOjwvdGQ+PPWzQTP5fLlf NGwjVVSyfY4vBYWlC4d2EnTaLyG 1PQkuF4ImrmC5JVMbmQIyUNUcdK CDfN4krektk8mbzmgqGwTo ALIzONt8HRc9REVvoKmaQtQnLFJ 0MkP3PGV0dAPrrM3biWxdbpfmmN 9wOyc+TVJOOjwvdGQ+PHRk MQP4eZklTMliVCMmdS9oIYFkI1r 8DaGlMoR2UNvlZ2IxdpR1OUGhqE EwTCEjuXDWvZ9ynrytz1eg bzhkYhHhPEYjPSl9VNk6VGLzvCi tNfAwNLI2OkG3KRK0tSVbjP2qvB undpoplY0aQsr+JBM1BTT2 AK14BR12Q4FoKtsptNCmbOV+PHR hYmxlIHdpZHRoPScxMDAlJyBzdH qgMO3sCg9kLCAaHJBmsBds cHNl (more content not included)... Normal [place] Consent for Treatmenton 07-20 Consent for Treatment [id number]:127 Normal [place] CARDIAC ELIA 3-6on 3 CK [Catalytic activity/Vol] 110 U/L Normal 26-192 [facility] Comment on above: Performed By: #### B MP, MG #### [facility] [address] [place] [address] Dr. Betsy Velazquez CK.MB [Mass/Vol] 1.74 ng/mL Normal <=3.60 [facility] Comment on above: Performed By: #### B MP, MG #### [facility] [address] [place] [address] Dr. Betsy Velazquez HSTROP 6.3 pg/mL Normal 4.0-51.3 [facility] Comment on above: Result Comment: CUT- OFF POINTS HAVE BEEN ESTABLISHED BASED ON THE FOURTH UNIVERSAL DEFINITIONS OF MYOCARDIAL INFARCTION. THE UPPER REFERENCE LIMIT (URL) OF TROPONIN, DEFINED THE 99TH PERCENTILE OF cTnI DISTRIBUTION IN A REFERENCE POPULATION, HAS BEEN CONFIRMED THE DECISION THRESHOLD FOR PR DIAGNOSIS. Performed By: #### B MP, MG #### [facility] [address] [place] [address] Dr. Betsy Velazquez CK [Catalytic activity/Vol] 123 U/L Normal 26-192 [facility] Comment on above: Performed By: #### C MREP #### [facility] [address] [place] [address] Dr. Betsy Velazquez CK.MB [Mass/Vol] 1.90 ng/mL Normal <=3.60 [facility] Comment on above: Performed By: #### C MREP #### [facility] [address] [place] [address] Dr. Betsy Velazquez HSTROP 5.9 pg/mL Normal 4.0-51.3 [facility] Comment on above: Result Comment: CUT- OFF POINTS HAVE BEEN ESTABLISHED BASED ON THE FOURTH UNIVERSAL DEFINITIONS OF MYOCARDIAL INFARCTION. THE UPPER REFERENCE LIMIT (URL) OF TROPONIN, DEFINED THE 99TH PERCENTILE OF cTnI DISTRIBUTION IN A REFERENCE POPULATION, HAS BEEN CONFIRMED THE DECISION THRESHOLD FOR PR DIAGNOSIS. Performed By: #### C MREP #### [facility] [address] [address] [address] Betsy Velazquez CBC AUTO DIFFon 06-29-2022 BASO # 0.1 103/ul Normal 0.0-0.1 [facility] Comment on above: Performed By: #### C BC #### [facility] [address] [address] [address] Betsy Velazquez Basophils/100 WBC (Bld) 0.7 % Normal 0.2-2.0 [facility] Comment on above: Performed By: #### C BC #### [facility] [address] [address] [address] Betsy Velazquez EO # 0.1 103/ul Normal 0.0-0.7 [facility] Comment on above: Performed By: #### C BC #### [facility] [address] [place] [address] Dr. Betsy Velazquez Eosinophils/100 WBC (Bld) 1.4 % Normal 0.9-7.0 [facility] Comment on above: Performed By: #### C BC #### [facility] [address] [place] [address] Dr. Betsy Velazquez Erythrocyte distribution width (RBC) [Ratio] 12.8 % Normal 11.0-15.0 [facility] Comment on above: Performed By: #### C BC #### [facility] [address] [place] [address] Dr. Betsy Velazquez Hematocrit (Bld) [Volume fraction] 41.4 % Normal 36.0-48.0 [facility] Comment on above: Performed By: #### C BC #### [facility] [address] [place] [address] Dr. Betsy Velazquez Hemoglobin (Bld) [Mass/Vol] 13.4 g/dL Normal 12.0-16.0 [facility] Comment on above: Performed By: #### C BC #### [facility] [address] [place] [address] Dr. Betsy Velazquez IG # 0.04 10e3/ul Critically high 0.00-0.03 [facility] Comment on above: Performed By: #### C BC #### [facility] [address] [place] [address] Dr. Betsy Velazquez IG % 0.4 % Normal 0.0-0.5 [facility] Comment on above: Performed By: #### C BC #### [facility] [address] [place] [address] Dr. Betsy Velazquez LYMPH # 2.6 103/ul Normal 1.2-3.8 [facility] Comment on above: Performed By: #### C BC #### [facility] [address] [place] [address] Dr. Betsy Velazquez Lymphocytes/100 WBC (Bld) 26.5 % Normal 20.5-60.0 [facility] Comment on above: Performed By: #### C BC #### [facility] [address] [place] [address] Dr. Betsy Velazquez MANUAL DIFF REQ NO Normal [facility] Comment on above: Performed By: #### C BC #### [facility] [address] [place] [address] Dr. Betsy Velazquez MCH (RBC) [Entitic mass] 31.5 pg Normal 26.7-34.0 [facility] Comment on above: Performed By: #### C BC #### [facility] [address] [place] [address] Dr. Betsy Velazquez MCHC (RBC) [Mass/Vol] 32.4 g/dL Normal 29.9-35.2 [facility] Comment on above: Performed By: #### C BC #### [facility] [address] [place] [address] Dr. Betsy Velazquez MCV (RBC) [Entitic vol] 97.2 fL Normal 81.0-99.0 [facility] Comment on above: Performed By: #### C BC #### [facility] [address] [place] [address] Dr. Betsy Velazquez MONO # 0.8 103/ul Normal 0.3-0.8 [facility] Comment on above: Performed By: #### C BC #### [facility] [address] [place] [address] Dr. Betsy Velazquez Monocytes/100 WBC (Bld) 7.6 % Normal 1.7-12.0 [facility] Comment on above: Performed By: #### C BC #### [facility] [address] [place] [address] Dr. Betsy Velazquez NEUT # 6.3 103/ul Normal 1.4-6.5 [facility] Comment on above: Performed By: #### C BC #### [facility] [address] [place] [address] Dr. Betsy Velazquez Neutrophils/100 WBC (Bld) 63.4 % Normal 43.0-75.0 [facility] Comment on above: Performed By: #### C BC #### [facility] [address] [place] [address] Dr. Betsy Velazquez Platelet mean volume (Bld) [Entitic vol] 11.3 fL Normal 9.5-13.5 [facility] Comment on above: Performed By: #### C BC #### [facility] [address] [place] [address] Dr. Betsy Velazquez PLT 258 103/ul Normal 150-450 [facility] Comment on above: Performed By: #### C BC #### [facility] [address] [place] [address] Dr. Betsy Velazquez RBC 4.26 106/ul Normal 4.20-5.40 [facility] Comment on above: Performed By: #### C BC #### [facility] [address] [place] [address] Dr. Betsy Velazquez WBC 10.0 103/ul Normal 4.0-11.0 [facility] Comment on above: Performed By: #### C BC #### [facility] [address] [place] [address] Dr. Betsy Velazquez [facility] SARS-CoV-2 (COVID-19) RNA REYNALDO+probe Ql (Unsp spec) Not detected Normal NOT DETECTED [facility] Comment on above: Result Comment: When diagnostic [...] for this test is supported by the [place] of Health and Human Service's declaration that [...] longer be used). Performed By: #### C [facility] #### [facility] [address] [place] [address] Dr. Betsy Velazquez ECHO LIMITED STUDYon 023 ECHO LIMITED STUDY Patient: SARAH HANNA Exam Date: 06/29/2022 : 1970 Gender:F Ordering : BONY SOLARES Admission #: [id number] Family : KAYLA DENT Order #: [id number] CLICK HERE TO VIEW EXAM ECHOCARDIOGRAM REPORT [...] Martinez M.D. on 06/30/2022 at 13:52 Normal [facility] GLYCOHEMOGLOBIN A1Con 2022 ADA RECOMMENDATION SEE BELOW Normal [facility] Comment on above: Result Comment: ADA RECOMMENDED LIMIT 4.0 - 6.0 ADA THERAPEUTIC TARGET < 7.0 ACTION SUGGESTED > 7.0 Performed By: #### B JASBIR, MG #### [facility] [address] [place] [address] Dr. Betsy Velazquez Glucose [Mass/Vol] 120 mg/dL Normal [facility] Comment on above: Performed By: #### B MP, MG #### [facility] [address] [place], [place] [address] Dr. Betsy Velazquez HbA1c (Bld) [Mass fraction] 5.8 % Normal 4.5-6.2 [facility] Comment on above: Performed By: #### B JASBIR, MG #### [facility] [address] [place] [address] [address] Betsy Velazquez LIPID PROFILEon 06-29-2022 CHOL-HDL RATIO NORM SEE BELOW Normal [facility] Comment on above: Result Comment: 3.3 - 4.4 LOW RISK 4.4 - 7.1 AVERAGE RISK 7.1 - 11.0 MODERATE RISK >11.0 HIGH RISK Performed By: #### L IPID, TSH #### [facility] [address] [address] [address] Betsy Velazquez Cholesterol [Mass/Vol] 168 mg/dL Normal <=200 [facility] Comment on above: Performed By: #### L IPID, TSH #### [facility] [address] [address] [address] Betsy Velazquez Cholesterol in HDL [Mass/Vol] 55 mg/dL Normal 40-60 [facility] Comment on above: Performed By: #### L IPID, TSH #### [facility] [address] [address] [address] Betsy Velazquez Cholesterol in LDL [Mass/Vol] 97.0 mg/dL Normal [facility] Comment on above: Performed By: #### L IPID, TSH #### [facility] [address] [address] [address] Betsy Velazquez Cholesterol.total/C holesterol in HDL [Mass ratio] 3.1 {ratio} Normal [facility] Comment on above: Performed By: #### L IPID, TSH #### [facility] [address] [place] [address] Dr. Betsy Velazquez HDL NORMAL > or = 60 mg/dl - LO W CARDIOVASCULAR RISK <40 mg/dl - HIGH CARDIOVASCULAR RISK Normal [facility] Comment on above: Performed By: #### L IPID, TSH #### [facility] [address] [address] [address] Betsy Velazquez LDL CALC NORMAL SEE BELOW Normal [facility] Comment on above: Result Comment: <100 mg/dl OPTIMAL 100 - 129 mg/dl NEAR OR ABOVE OPTIMAL 130 - 159 mg/dl BORDERLINE HIGH 160 - 189 mg/dl HIGH >190 mg/dl VERY HIGH Performed By: #### L IPID, TSH #### [facility] [address] [address] [address] Betsy Velazquez Triglyceride [Mass/Vol] 80 mg/dL Normal <=150 [facility] Comment on above: Performed By: #### L IPID, TSH #### [facility] [address] [address] [address] Betsy Velazquez VLDL CALC 16.0 mg/dL Normal [facility] Comment on above: Performed By: #### L IPID, TSH #### [facility] [address] [place] [address] Dr. Betsy Velazquez MAGNESIUMon 06-29-2022 Magnesium [Mass/Vol] 2.1 mg/dL Normal 1.8-2.4 [facility] Comment on above: Performed By: #### B MP, MG #### [facility] [address] [place] [address] Dr. Betsy Velazquez PROF CHEM 8 (BAS METB)on Anion gap [Moles/Vol] 10.8 mmol/L Normal [facility] Comment on above: Performed By: #### B MP, MG #### [facility] [address] [place] [address] Dr. Betsy Velazquez Calcium [Mass/Vol] 9.0 mg/dL Normal 8.5-10.1 [facility] Comment on above: Performed By: #### B MP, MG #### [facility] [address] [place] [address] Dr. Betsy Velazquez Chloride [Moles/Vol] 104 mmol/L Normal 98-107 [facility] Comment on above: Performed By: #### B MP, MG #### [facility] [address] [place] [address] Dr. Betsy Velazquez CO2 [Moles/Vol] 28.1 mmol/L Normal 21.0-32.0 [facility] Comment on above: Performed By: #### B MP, MG #### [facility] [address] [place] [address] Dr. Betsy Velazquez Creatinine [Mass/Vol] 0.86 mg/dL Normal 0.55-1.02 [facility] Comment on above: Performed By: #### B MP, MG #### [facility] [address] [place] [address] Dr. Betsy Velazquez EGFR-AF LAO >60 Normal >=60 [facility] Comment on above: Performed By: #### B MP, MG #### [facility] [address] [place] [address] Dr. Betsy Velazquez EGFR-NON AF LAO >60 Normal >=60 [facility] Comment on above: Performed By: #### B MP, MG #### [facility] [address] [place] [address] Dr. Betsy Velazquez Glucose [Mass/Vol] 111 mg/dL Critically high 74-106 T [facility] Comment on above: Performed By: #### B MP, MG #### [facility] [address] [place] [address] Dr. Betsy Velazquez Potassium [Moles/Vol] 3.9 mmol/L Normal 3.5-5.1 [facility] Comment on above: Performed By: #### B MP, MG #### [facility] [address] [place] [address] Dr. Betsy Velazquez Sodium [Moles/Vol] 139 mmol/L Normal 136-145 [facility] Comment on above: Performed By: #### B MP, MG #### [facility] [address] [place] [address] Dr. Betsy Velazquez Urea nitrogen [Mass/Vol] 18.0 mg/dL Normal 7.0-18.0 [facility] Comment on above: Performed By: #### B MP, MG #### [facility] [address] [place] [address] Dr. Betsy Velazquez Urea nitrogen/Creatinine [Mass ratio] 20.9 mg/mg Normal [facility] Comment on above: Performed By: #### B MP, MG #### [facility] [address] [place] [address] Dr. Betsy Velazquez TSHon 06-29-2022 TSH 1.981 uIU/mL Normal 0.358-3.740 [facility] Comment on above: Performed By: #### L IPID, TSH #### [facility] [address] [place] [address] Dr. Betsy Velazquez XR CHEST 1 Von [...] MARKO GARY Date: 2022-06-28 22:50 Normal [facility] CARDIAC ELIA ADMITon 023 CK [Catalytic activity/Vol] 149 U/L Normal 26-192 [facility] Comment on above: Performed By: #### B MP, MG #### [facility] [address] [place] [address] Dr. Betsy Velazquez CK.MB [Mass/Vol] 2.34 ng/mL Normal <=3.60 [facility] Comment on above: Performed By: #### B MP, MG #### [facility] [address] [place] [address] Dr. Betsy Velazquez HSTROP 5.5 pg/mL Normal 4.0-51.3 [facility] Comment on above: Result Comment: CUT- OFF POINTS HAVE BEEN ESTABLISHED BASED ON THE FOURTH UNIVERSAL DEFINITIONS OF MYOCARDIAL INFARCTION. THE UPPER REFERENCE LIMIT (URL) OF TROPONIN, DEFINED THE 99TH PERCENTILE OF cTnI DISTRIBUTION IN A REFERENCE POPULATION, HAS BEEN CONFIRMED THE DECISION THRESHOLD FOR PR DIAGNOSIS. Performed By: #### B MP, MG #### [facility] [address] [place] [address] Dr. Betsy Velazquez CHRISTOPHER 50 ng/mL Normal 9-82 [facility] Comment on above: Performed By: #### B MP, MG #### [facility] [address] [place] [address] Dr. Betsy Velazquez CBC AUTO DIFFon 06-28-2022 BASO # 0.1 103/ul Normal 0.0-0.1 [facility] Comment on above: Performed By: #### C BC #### [facility] [address] [place] [address] Dr. Betsy Velazquez Basophils/100 WBC (Bld) 0.6 % Normal 0.2-2.0 [facility] Comment on above: Performed By: #### C BC #### [facility] [address] [place] [address] Dr. Betsy Velazquez EO # 0.2 103/ul Normal 0.0-0.7 [facility] Comment on above: Performed By: #### C BC #### [facility] [address] [place] [address] Dr. Betsy Velazquez Eosinophils/100 WBC (Bld) 2.0 % Normal 0.9-7.0 [facility] Comment on above: Performed By: #### C BC #### [facility] [address] [place] [address] Dr. Betsy Velazquez Erythrocyte distribution width (RBC) [Ratio] 12.8 % Normal 11.0-15.0 [facility] Comment on above: Performed By: #### C BC #### [facility] [address] [place] [address] Dr. Betsy Velazquez Hematocrit (Bld) [Volume fraction] 41.8 % Normal 36.0-48.0 [facility] Comment on above: Performed By: #### C BC #### [facility] [address] [place] [address] Dr. Betsy Velazquez Hemoglobin (Bld) [Mass/Vol] 13.8 g/dL Normal 12.0-16.0 [facility] Comment on above: Performed By: #### C BC #### [facility] [address] [place] [address] Dr. Betsy Velazquez IG # 0.04 10e3/ul Critically high 0.00-0.03 [facility] Comment on above: Performed By: #### C BC #### [facility] [address] [place] [address] Dr. Betsy Velazquez IG % 0.3 % Normal 0.0-0.5 [facility] Comment on above: Performed By: #### C BC #### [facility] [address] [place] [address] Dr. Betsy Velazquez LYMPH # 3.1 103/ul Normal 1.2-3.8 [facility] Comment on above: Performed By: #### C BC #### [facility] [address] [place] [address] Dr. Betsy Velazquez Lymphocytes/100 WBC (Bld) 26.9 % Normal 20.5-60.0 [facility] Comment on above: Performed By: #### C BC #### [facility] [address] [place] [address] Dr. Betsy Velazquez MANUAL DIFF REQ NO Normal [facility] Comment on above: Performed By: #### C BC #### [facility] [address] [place] [address] Dr. Betsy Velazquez MCH (RBC) [Entitic mass] 31.4 pg Normal 26.7-34.0 [facility] Comment on above: Performed By: #### C BC #### [facility] [address] [place] [address] Dr. Betys Velazquez MCHC (RBC) [Mass/Vol] 33.0 g/dL Normal 29.9-35.2 [facility] Comment on above: Performed By: #### C BC #### [facility] [address] [place] [address] Dr. Betsy Velazquez MCV (RBC) [Entitic vol] 95.2 fL Normal 81.0-99.0 [facility] Comment on above: Performed By: #### C BC #### [facility] [address] [place] [address] Dr. Betsy Velazquez MONO # 0.9 103/ul Critically high 0.3-0.[address] [facility] Comment on above: Performed By: #### C BC #### [facility] [address] [place] [address] Dr. Betsy Velazquez Monocytes/100 WBC (Bld) 7.8 % Normal 1.7-12.0 [facility] Comment on above: Performed By: #### C BC #### [facility] [address] [place] [address] Dr. Betsy Velazquez NEUT # 7.2 103/ul Critically high 1.4-6.[address] [facility] Comment on above: Performed By: #### C BC #### [facility] [address] [place] [address] Dr. Betsy Velazquez Neutrophils/100 WBC (Bld) 62.4 % Normal 43.0-75.0 [facility] Comment on above: Performed By: #### C BC #### [facility] [address] [place] [address] Dr. Betsy Velazquez Platelet mean volume (Bld) [Entitic vol] 11.1 fL Normal 9.5-13.5 [facility] Comment on above: Performed By: #### C BC #### [facility] [address] [place] [address] Dr. Betsy Velazquez PLT 272 103/ul Normal 150-450 [facility] Comment on above: Performed By: #### C BC #### [facility] [address] [place] [address] Dr. Betsy Velazquez RBC 4.39 106/ul Normal 4.20-5.40 [facility] Comment on above: Performed By: #### C BC #### [facility] [address] [place] [address] Dr. Betsy Velazquez WBC 11.6 103/ul Critically high 4.0-11.0 [facility] Comment on above: Performed By: #### C BC #### [facility] [address] [place] [address] Dr. Betsy Velazquez PROF CHEM 8 (BAS METB)on Anion gap [Moles/Vol] 12.8 mmol/L Normal [facility] Comment on above: Performed By: #### B MP, MG #### [facility] [address] [place] [address] Dr. Betsy Velazquez Calcium [Mass/Vol] 9.4 mg/dL Normal 8.5-10.1 [facility] Comment on above: Performed By: #### B MP, MG #### [facility] [address] [place] [address] Dr. Betsy Velazquez Chloride [Moles/Vol] 102 mmol/L Normal 98-107 [facility] Comment on above: Performed By: #### B MP, MG #### [facility] [address] [place] [address] [address] Betsy Velazquez CO2 [Moles/Vol] 25.7 mmol/L Normal 21.0-32.0 [facility] Comment on above: Performed By: #### B MP, MG #### [facility] [address] [place] [address] [address] Betsy Velazquez Creatinine [Mass/Vol] 1.03 mg/dL Critically high 0.55-1.02 [facility] Comment on above: Performed By: #### B MP, MG #### [facility] [address] [place] [address] [address] Betsy Velazquez EGFR-AF LAO >60 Normal >=60 [facility] Comment on above: Performed By: #### B MP, MG #### [facility] [address] [place] [address] [address] Betsy Velazquez EGFR-NON AF LAO 56 mL/min/1.73m2 Critically low >=60 [facility] Comment on above: Performed By: #### B MP, MG #### [facility] [address] [place] [address] [address] Betsy Velazquez Glucose [Mass/Vol] 93 mg/dL Normal 74-106 [facility] Comment on above: Performed By: #### B MP, MG #### [facility] [address] [place] [address] [address] Betsy Velazquez Potassium [Moles/Vol] 3.5 mmol/L Normal 3.5-5.1 [facility] Comment on above: Performed By: #### B MP, MG #### [facility] [address] [address] [address] Betsy Velazquez Sodium [Moles/Vol] 137 mmol/L Normal 136-145 [facility] Comment on above: Performed By: #### B MP, MG #### [facility] [address] [address] [address] Betsy Velazquez Urea nitrogen [Mass/Vol] 21.0 mg/dL Critically high 7.0-18.0 [facility] Comment on above: Performed By: #### B MP, MG #### [facility] [address] [place], [place] [address] Dr. Betsy Velazquez Urea nitrogen/Creatinine [Mass ratio] 20.4 mg/mg Normal [facility] Comment on above: Performed By: #### B MP, MG #### [facility] [address] [place], [place] [address] Dr. Betsy Velazquez DIGITAL DIAG MAMM BILAT WITH TOMOon 12-28-2021 DIGITAL DIAG MAMM BILAT WITH MASON Patient Name: RASHEEDA NICHOLE STUDY: DIGITAL DIAG MAMM BILAT WITH MASON; BREAST ULTRASOUND; 12/28/2021 9:31 am; 12/28/2021 9:59 am ACCESSION NUMBER(S): [id number]; [id number] ORDERING CLINICIAN: BARBARA HARRY INDICATION: breast lump [...] any future breast imaging appointments, please call [phone]). Electronically signed by: ELIA RON MD Normal [facility] Radiologyon 12-28-2021 MG Breast Diagnostic Normal [facility] Work Phone: ULTRASOUND LIMITED BREASTon 12-28-2021 ULTRASOUND LIMITED BREAST Patient Name: RASHEEDA NICHOLE STUDY: DIGITAL DIAG MAMM BILAT WITH MASON; BREAST ULTRASOUND; 12/28/2021 9:31 am; 12/28/2021 9:59 am ACCESSION NUMBER(S): [id number]; [id number] ORDERING CLINICIAN: BARBARA HARRY INDICATION: breast lump [...] any future breast imaging appointments, please call [phone] ([phone]). Electronically signed by: ELIA RON MD Normal [facility] Ultrasound Limited [place] 12-28-2021 MG Breast Screening Normal [facility] ers Work Phone: Office Visit (Cardiology)on 12-21-2021 Follow-up visit Diagnoses/Problems Assessed Obesity (BMI 35.0-39.9 without comorbidity) (278.00) (E66.9) Orders Obesity (BMI 35.0-39.9 without comorbidity) Healthy Weight Tips; Status:Complete - Retrospective Authorization; Done: [id number] Some eating tips that can help you lose weight.; Status:Complete - Retrospective Authorization; Done: [id number] Patient Instructions FOLLOW UP NEEDED ONLY YOUR [...] further questions arise, Sincerely, Samara Roe MD [facility] Surgical History Problems History of Carpal tunnel surgery History of section 1990, 1992, 1995 History of Cholecystectomy 2016 History of Tubal ligation bilateral 1995 History of [place] tooth extraction Past Medical History Problems Colon [...] Screening.on 022 Adult depression screening assessment No -[facility] DO Work Phone: Tobacco use status [facility] b) No -[facility] DO Work Phone: Office Visiton 11-22-2021 Follow-up visit Diagnoses/Problems Screening breast examination (V76.10) (Z12.39) Breast lump on right side at 12 o'clock position (611.72) (N63.15) Orders Breast lump on right side at 12 o'clock position Mamm Digital Diagnostic Mammography Unilateral Right; Status:Active; Requested for:30Nov2021; Patient is scheduled for 11-30-21 @ 1:30pm at [facility]. Thank you. Laterality : Right Radiologist to Determine Optimal Study : Y What are the patient's signs and symptoms? : breast lump Screening breast examination Mamm - Screening Mammogram; Status:Active; Requested for:22Nov2021; Patient is scheduled at [facility] on 11-30-21. Thank you. Indications for [...] a) No falls within the last year [facility] Work Phone: Tobacco use status [facility] b) No [facility] Work Phone: PHQ-2 VITALSon 07-12-2021 Adult depression screening assessment Negative [facility] Work Phone: Fall risk assessment a) No falls within the last year [facility] Work Phone: Tobacco use status [facility] b) [facility]: Tobacco Screening.on 022 Fall risk assessment a) No falls within the last year [facility] DO Work Phone: Tobacco use status [facility] b[facility] Work [facility]: Laboratory - Microbiology an d Antimicrobial susceptibilityon 06-14-2021 SARS-CoV-2 (COVID-19) RNA REYNALDO+probe Ql (Unsp spec) Pass Normal Pass [facility] Work Phone: No Panel Informationon 06-14 NO Normal [facility] Work Phone: YES Normal [facility] Work Phone: Unknown Normal [facility] Work Phone: Not detected Normal Not Detected [facility] Work Phone: Comment on above: This test result jakob uld be correlated with clinical presentations and medical history by a healthcare provider to determine its clinical significance.This assay was performed by a reverse transcriptase real-time polymerase chain reaction (rt PCR) method on the [employer]Search system. This test has been authorized only [...] is terminated or revoked sooner. Nasal Normal [facility] Work Phone: Cardiac Stress Teston 2020 Cardiac Stress Test Please click on the link to view the study images Normal [place] [address] DO Work Phone: Cardiac Stress Test -No rth [place] [address] DO Work Phone: Echocardiogramon 06-07-2021 Echocardiography Please click on the link to view the study images Normal [place] [address] DO Work Phone: Hepatic Function Panelon Albumin BCP dye [Mass/Vol] 3.9 g/dL 3.4 - 5.0 [place] [address] DO Work Phone: ALP [Catalytic activity/Vol] 71 U/L 33 - 110 [place] [address] DO Work Phone: [phone] ALT With P-5'-P [Catalytic activity/Vol] 26 U/L 7 - 45 [place] [address] DO Work Phone: [phone] Comment on above: Patients treated wit h Sulfasalazine may generate falsely decreased results for ALT. AST With P-5'-P [Catalytic activity/Vol] 20 U/L 9 - 39 [place] [address] DO Work Phone: [phone] Bilirubin [Mass/Vol] 0.4 mg/dL 0.0 - 1.2 [place] [address] DO Work Phone: [phone] Bilirubin.direct [Mass/Vol] 0.1 mg/dL 0.0 - 0.3 [place] [address] DO Work Phone: [phone] Protein [Mass/Vol] 7.2 g/dL 6.4 - 8.2 [place] [address] DO Work Phone: Laboratory - Chemistry and C hemistry - challengeon 05-17-2021 Anion gap [Moles/Vol] 14 mmol/L 10 - 20 [place] [address] DO Work Phone: [phone] [Mass/Vol] 9.1 mg/dL 8.6 - 10.3 [facility] DO Work Phone: [phone] Chloride [Moles/Vol] 102 mmol/L 98 - 107 [facility] DO Work Phone: CO2 [Moles/Vol] 27 mmol/L 21 - 32 [facility] [address] DO Work Phone: Creatinine [Mass/Vol] 0.81 mg/dL See Below [facility] [address] DO Work Phone: [phone] Comment on above: Reference Range: 0.5 0 - 1.05 Glucose [Mass/Vol] 93 mg/dL 74 - 99 [facility] DO Work Phone: [phone] Potassium [Moles/Vol] 4.2 mmol/L 3.5 - 5.3 [facility] [address] DO Work Phone: [phone] Sodium [Moles/Vol] 139 mmol/L 136 - 145 [facility] [address] DO Work Phone: [phone] Urea nitrogen [Mass/Vol] 13 mg/dL 6 - 23 [facility] [address] DO Work Phone: [phone] Laboratory - Hematology and Cell countson 05-17-2021 Erythrocyte distribution width (RBC) [Ratio] 13.2 % See Below [facility] DO Work Phone: [phone] Comment on above: Reference Range: 11. 5 - 14.5 Hematocrit (Bld) [Volume fraction] 39.5 % See Below [facility] [address] DO Work Phone: [phone] Comment on above: Reference Range: 36. 0 - 46.0 Hemoglobin (Bld) [Mass/Vol] 13.2 g/dL See Below [facility] DO Work Phone: [phone] Comment on above: Reference Range: 12. 0 - 16.0 MCHC (RBC) [Mass/Vol] 33.4 g/dL See Below [facility] [address] DO Work Phone: [phone] Comment on above: Reference Range: 32. 0 - 36.0 MCV (RBC) [Entitic vol] 97 fL 80 - 100 [facility] DO Work Phone: [phone] Platelets (Bld) [#/Vol] 247 10*3/uL 150 - 450 [place] [address] DO Work Phone: [phone] RBC (Bld) [#/Vol] 4.07 {x10E12/L} See Below [place] [address] DO Work Phone: [phone] Comment on above: Reference Range: 4.0 0 - 5.20 WBC (Bld) [#/Vol] 7.8 10*3/uL 4.4 - 11.3 [facility] Work Phone: Lipid Panelon 05-17-2021 Cholesterol [Mass/Vol] 176 mg/dL 0 - 199 [place] [address] DO Work Phone: [phone] Comment on above: . AGE DESIRABLE BORD [...] dosing. Cholesterol in HDL [Mass/Vol] 63.0 mg/dL [facility] Holdings[place] [address] DO Work Phone: Comment on above: . AGE VERY LOW LOW N ORMAL HIGH 0-19 Y < 35 < 40 40-45 ---- 20- 24 Y ---- < 40 >45 ---- >24 Y ---- < 40 40-60 >60. Cholesterol in LDL [Mass/Vol] 96 mg/dL 0 - 99 [facility] Holdings[place] [address] DO Work Phone: Comment on above: . NEAR BORD AGE LUIS RABLE OPTIMAL HIGH HIGH VERY HIGH 0-19 Y 0 - 109 --- 110-129 >/= 130 ---- 20-24 Y 0 - 119 --- 120-159 >/= 160 ---- >24 Y 0 - 99 100-129 130-159 160-189 >/=190. Cholesterol.total/C holesterol in HDL [Mass ratio] 2.8 {ratio} [facility] [place] [address] DO Work Phone: Comment on above: REF VALUESDESIRABLE < 3.4HIGH RISK > 5.0 Triglyceride [Mass/Vol] 87 mg/dL 0 - 149 [place] [address] DO Work Phone: Comment on above: . [...] Lipid Panel 17 mg/dL 0 - 40 [facility] [place] [address] DO Work Phone: [phone] Magnesium, Serumon Magnesium [Mass/Vol] 1.90 mg/dL See Below [place] [address] DO Work Phone: [phone] Comment on above: Reference Range: 1.6 0 - 2.40 No Panel Informationon 05-17 >60 >60 [place] [address] DO Work Phone: Comment on above: CALCULATIONS OF LINDSEY MATED GFR ARE PERFORMED USING THE MDRD STUDY EQUATION FOR THE IDMS-TRACEABLE CREATININE METHODS. CLIN CHEM 2007;53:766-72 T4 - Free Thyroxine, Serumon 05-17-2021 Free T4 [Mass/Vol] 0.90 ng/dL See Below [place] [address] DO Work Phone: Comment on above: Reference Range: 0.6 1 - 1.12 Thyroxine Free testing is performed using different testing methodology at [facility] than at formerly [facility]. Direct result comparisons should only be [...] Qn 1.76 m[IU]/L See Below [place] [address] DO Work Phone: Comment on above: Reference Range: 0.4 4 - 3.98 TSH testing is performed using different testing methodology at [facility] than at other [facility]. Direct result comparisons should only be made within the same method. Tobacco Screening.on 021 Fall risk assessment a) No falls within the last year [place] [address] DO Work Phone: Tobacco use status CPHS b) No [place] [address] DO Work Phone: HCG, Serum - Qualitativeon 1 06-22-2020 HCG ( test) Ql Negative Negative [facility] erst Work Phone: No Panel Informationon 04-22 [email or web address] 1:[email or web address]/ [email or web address]?Ret rieveTestByDateTime?Patient KU=[id number]&Date= 1&Time=06%3a23%3a29%3a00&Te stType=ECG&Site=11&OutputTy pe=PDF&Ext=PDF [facility] Work Phone: Sinus rhythm with pr emature supraventricular complexes [facility] Work Phone: Borderline Abnormal [facility] Work Phone: [phone] [facility] Work Phone: [phone] [facility] Work Phone: 187 1 [facility] Work Phone: 140 1 [facility] Work Phone: 217 1 [facility] Work Phone: 14 1 [facility] Work Phone: 46 1 [facility] Work Phone: 68 1 [facility] Work Phone: 51 1 [facility] Work Phone: [phone] [facility] Work Phone: [phone] [facility] Work Phone: 86 1 [facility] Work Phone: [phone] 1 [facility] Work Phone: [phone] 1 [facility] Work Phone: Coronavirus 2019 RNA by PCR, Screening Asymptomticon 04-20-2021 Coronavirus 2019 RNA by PCR, Screening Asymptomtic Not detected Normal See Below [facility] [place] Work Phone: Comment on above: SOURCE: Nasal, [...] make patient management decisions.Fact sheet for providers: https://www.fda.gov/media/828120/downloadFact sheet for patients: https://www.fda.gov/media/297761/downloadThis test has received FDA Emergency Use Authorization (EUA) and has been verified by [facility] ([facility]). This test is only authorized for the duration of time that circumstances exist to justify the authorization of the emergency use of in vitro diagnostic tests for the detection of SARS-CoV-2 virus and/or diagnosis of COVID-19 infection under section 564(b)(1) of the Act, 21 U.S.C. 360bbb-3(b)(1), unless the authorization is terminated or revoked sooner. [facility] is certified under CLIA-88 as qualified to perform high complexity testing. Testing is performed in the [facility] laboratories located at [address] [place] [address]. LMPon 10-29-2020 Last menstrual period start date 31Aug2020 -[facility] Work Phone: No Panel Informationon 10-29 Name RASHEEDA NICHOLE Pathologist: MAGDA LIMON MD Date of Procedure: 10/29/2020 Date Received: 10/29/2020 Date Reported 11/03/2020 Submitting Physician: SALIMA GILMAN M.D. Location: [facility] External # FINAL DIAGNOSIS A. SKIN, [...] bisected and entirely submitted in one cassette. [facility]/11/02/2020 [facility] Department of Pathology [address] [place] [address] Work Phone: [facility] Work Phone: Mamm - Screening Mammogram w / Tomosynthesison 06-09-2020 MG Breast screening Interpreted by: THERON KNOTTD108/10/19 09:10MRN: [id number] Name: DIONISIOJOHANNA NUNESA STUDY:DIGITAL SCREENING BILATERAL MAMMOGRAM [...] signed by: THERON VEE 06/09/20 09:10 Normal [facility] ers Work Phone: Comment on above: ORDER REVISED TO A D IGITAL MAMM SCREENING W/ MASON BY RADIOLOGIST; Original Order Number: [id number] GC + Chlamydia By Amplified Detectionon 01-05-2020 C. trachomatis rRNA REYNALDO+probe Ql (Unsp spec) Negative Negative [facility] A2100 DO Work Phone: [phone] N. gonorrhoeae rRNA REYNALDO+probe Ql (Unsp spec) Negative Negative [facility] A2100 DO Work Phone: Comment on above: SOURCE: Genital Otheron 01-05-2020 0 [facility] A2100 DO Work Phone: Comment on above: Interpretation of th e Bronwyn Score0-3.....Normal vaginal microbiota4-6.....Intermediate results7-10....Bacterial vaginosis ABSENT [facility] A2100 DO Work Phone: Negative Negative [facility] A2100 DO Work Phone: Comment on above: SOURCE: Genital Urinalysison 01-05-2020 Yeast LM Ql (Urine sed) ABSENT [facility] A2100 DO Work Phone: Otheron 07-25-2019 Clam IgE Qn (S) <0.35 <0.35 [facility] erst Work Phone: Comment on above: SEE IMMUNOCAP INTERP .IGE Codfish IgE Qn (S) <0.35 <0.35 [facility] Work Phone: Comment on above: SEE IMMUNOCAP INTERP .IGE [place] IgE Qn (S) <0.35 <0.35 [facility] erst Work Phone: Comment on above: SEE IMMUNOCAP INTERP .IGE Egg white IgE Qn (S) <0.35 <0.35 [facility] Work Phone: Comment on above: SEE IMMUNOCAP INTERP .IGE Lobster IgE Qn (S) 0.56 {KU/L} Abnormal <0.35 [facility] erst Work Phone: Comment on above: SEE IMMUNOCAP INTERP .IGE Milk IgE Qn (S) <0.35 <0.35 [facility] Work Phone: Comment on above: SEE IMMUNOCAP INTERP .IGE Peanut IgE Qn (S) [facility]0.[address] [facility] Work [facility]: Comment on above: SEE IMMUNOCAP INTERP .IGE Wood IgE Qn (S) <0.35 <0.35 [facility] Work Phone: Comment on above: SEE IMMUNOCAP INTERP .IGE Scallop IgE Qn (S) <0.35 <0.35 [facility] Work Phone: Comment on above: SEE IMMUNOCAP INTERP .IGE Sesame Seed IgE Qn (S) <0.35 <0.35 [facility] Work Phone: Comment on above: SEE IMMUNOCAP INTERP .IGE Shrimp IgE Qn (S) 0.40 {KU/L} Abnormal <0.35 [facility] Work Phone: Comment on above: SEE IMMUNOCAP INTERP .IGE Soybean IgE Qn (S) <0.35 <0.35 [facility] Work Phone: Comment on above: SEE IMMUNOCAP INTERP .IGE [place] IgE Qn (S) <0.35 <0.35 [facility] Work Phone: Comment on above: SEE IMMUNOCAP INTERP .IGE Wheat IgE Qn (S) <0.35 <0.35 [facility] Work Phone: Comment on above: SEE IMMUNOCAP INTERP .IGE SEE COMMENT [facility] Work Phone: Comment on above: REFERENCE RANGE (IMM UNOCAP) IGE KU/L CLASS INTERPRETATION < 0.35 0 BELOW DETECTION 0.35- 0.69 1 LOW POSITIVE 0.70- 3.49 2 MODERATE POSITIVE 3.50- 17.49 3 HIGH [id number]- 49 4 VERY HIGH [id number] - 99 5 VERY HIGH POSITIVE >100 6 VERY HIGH POSITIVE Culture, Throaton 10-30-2018 Culture, Throat OR DERED BY: SARKIS ROGERS SOURCE: Throat Throat COLLECTED: 10/30/18 15:03 ANTIBIOTICS AT KIP.: RECEIVED : 10/30/18 19:13 Culture, Throat FINAL 11/01/18 08:10 Usual respiratory jessica in 48 hours Normal [facility] Comment on above: Performed By: #### C XTHR #### [facility] [address] [place] [address] Vital Signs Date Time Vital Sign Value Performing Clinician Malii litstefanie 09-24-2022 04:19-0400 Diastolic blood pressure 58 mm[Hg] Vincent Pan [facility] 09-24-2022 04:19-0400 Heart rate 60 /min Vincent Pan [facility] 09-24-2022 04:19-0400 Respiratory rate 18 /min Vincent Pan [facility] 09-24-2022 04:19-0400 SaO2% (BldA) [Mass fraction] 96 % Vincent Maxim [facility] 09-24-2022 04:19-0400 Systolic blood pressure 114 mm[Hg] Vincent Maxim [facility] 09-24-2022 02:53-0400 Diastolic blood pressure 56 mm[Hg] Vincent Maxim [facility] 09-24-2022 02:53-0400 Heart rate 68 /min Vincent Maxim [facility] 09-24-2022 02:53-0400 Mean blood pressure 70 mm[Hg] Vincent Maxim [facility] 09-24-2022 02:53-0400 Respiratory rate 15 /min Vincent Maxim [facility] 09-24-2022 02:53-0400 SaO2% (BldA) [Mass fraction] 92 % Vincent Maxim [facility] 09-24-2022 02:53-0400 Systolic blood pressure 99 mm[Hg] Vincent Maxim [facility] 09-24-2022 02:19-0400 Blood Pressure Location Vincent Maxim [facility] 09-24-2022 02:19-0400 Diastolic blood pressure 52 mm[Hg] Vincent Maxim [facility] 09-24-2022 02:19-0400 Heart rate 75 /min Vincent Maxim [facility] 09-24-2022 02:19-0400 Mean blood pressure 68 mm[Hg] Vincent Maxim [facility] 09-24-2022 02:19-0400 Respiratory rate 18 /min Vincent Maxim [facility] 09-24-2022 02:19-0400 SaO2% (BldA) [Mass fraction] 95 % Vincent Pan [facility] 09-24-2022 02:19-0400 Systolic blood pressure 101 mm[Hg] Vincent Pan [facility] 09-24-2022 01:07-0400 Blood Pressure Location Vincent Pan [facility] 09-24-2022 01:07-0400 Mean blood pressure 72 mm[Hg] Vincent Pan [facility] 09-23-2022 22:20-0400 Respiratory rate 16 /min Vincent Pan [facility] 09-20-2022 12:24-0400 Body mass index (BMI) [Ratio] 36.48 kg/m2 Kayla Dent [facility] DO Work Phone: 09-20-2022 12:24-0400 Body surface area Derived from formula 1.81 m2 Kayla Dent [facility] 305 DO Work Phone: 09-20-2022 12:24-0400 Body weight 84.73 kg Kayla Dent [facility] 305 DO Work Phone: 09-20-2022 12:24-0400 Diastolic blood pressure 72 mm[Hg] Kayla Dent [facility] 305 DO Work Phone: 09-20-2022 12:24-0400 Heart rate 61 /min Kayla Dent [facility] DO Work Phone: 09-20-2022 12:24-0400 Systolic blood pressure 132 mm[Hg] Kayla Dent [facility] DO Work Phone: 08-29-2022 10:03-0400 Heart rate 64 /min Kayla Dent [facility] 300 DO Work Phone: 08-25-2022 14:17-0500 Body temperature 97.88 [degF] Kayla Barrette Other Phone: [facility] 08-25-2022 14:17-0500 Diastolic blood pressure 63 mm[Hg] Kayla Dent Other Phone: [facility] 08-25-2022 14:17-0500 Heart rate 69 /min Kayla Dent Other Phone: [facility] 08-25-2022 14:17-0500 Respiratory rate 16 /min Kayla Dent Other Phone: [facility] 08-25-2022 14:17-0500 SaO2% (BldA) [Mass fraction] 93 % Kayla Dent Other Phone: [facility] 08-25-2022 14:17-0500 Systolic blood pressure 120 mm[Hg] Kayla Dent Other Phone: [facility] 08-18-2022 10:45-0500 Body height 152.4 cm Kayla [facility]alonzo [facility] DO Work Phone: 08-18-2022 10:45-0500 Body mass index (BMI) [Ratio] 36.13 kg/m2 Kayla Monroealonzo Barrette [facility] 300 DO Work Phone: 08-18-2022 10:45-0500 Body surface area Derived from formula 1.81 m2 Kayla Monroealonzo Barrette [facility] 300 DO Work Phone: 08-18-2022 10:45-0500 Body weight 83.92 kg Kayla Monroealonzo Barrette [facility] 300 DO Work Phone: 08-18-2022 10:45-0500 Diastolic blood pressure 80 mm[Hg] Kayla Monroeeen Olena [facility] 300 DO Work Phone: 08-18-2022 10:45-0500 Heart rate 50 /min Kayla Dnet -[facility] 300 DO Work Phone: 08-18-2022 10:45-0500 Systolic blood pressure 134 mm[Hg] Kayla Dent -[facility] 300 DO Work Phone: 08-07-2022 09:06-0500 Blood Pressure Location Luna DICKINSON [facility] 08-07-2022 09:06-0500 Diastolic blood pressure 74 mm[Hg] Luna DICKINSON [facility] 08-07-2022 09:06-0500 Heart rate 66 /min Luna DICKINSON [facility] 08-07-2022 09:06-0500 SaO2% (BldA) [Mass fraction] 95 % Luna DICKINSON [facility] 08-07-2022 09:06-0500 Systolic blood pressure 118 mm[Hg] Luna DICKINSON [facility] 07-12-2022 15:48-0500 Blood Pressure Location Skip Carlos [facility] 07-12-2022 15:48-0500 Diastolic blood pressure 70 mm[Hg] Skip Gonzalez [facility] 07-12-2022 15:48-0500 Heart rate 69 /min Skip Christofferson [facility] 07-12-2022 15:48-0500 Respiratory rate 18 /min Skip Christofferson [facility] 07-12-2022 15:48-0500 SaO2% (BldA) [Mass fraction] 98 % Skip Maxerson [facility] 07-12-2022 15:48-0500 Systolic blood pressure 112 mm[Hg] Skip Gonzalez [facility] 12-21-2021 10:04-0400 Body height 152.4 cm Salima Kodak YuenKalina Work Phone: [facility] DO Work Phone: 12-21-2021 10:04-0400 Body mass index (BMI) [Ratio] 36.72 kg/m2 Salima Kodak Kalina Work Phone: [facility] DO Work Phone: 12-21-2021 10:04-0400 Body surface area Derived from formula 1.82 m2 Salima Kodak Kalina Work Phone: [facility] DO Work Phone: 12-21-2021 10:04-0400 Body weight 85.28 kg Salima Kodak Kalina Work Phone: [facility] DO Work Phone: 12-21-2021 10:04-0400 Diastolic blood pressure 70 mm[Hg] Salima Kodak Kalina Work Phone: [facility] DO Work Phone: 12-21-2021 10:04-0400 Heart rate 68 /min Salima Kodak Kalina Work Phone: [facility] DO Work Phone: 12-21-2021 10:04-0400 Systolic blood pressure 112 mm[Hg] Salima Yuenabrese Work Phone: [facility] DO Work Phone: 11-22-2021 15:34-0400 Body height 152.4 cm Salima Yuenabrese Work Phone: [facility] Work Phone: 11-22-2021 15:34-0400 Body mass index (BMI) [Ratio] 36.72 kg/m2 Salima Candelario Kalina Work Phone: [facility] Work Phone: 11-22-2021 15:34-0400 Body surface area Derived from formula 1.82 m2 Salima Candelario Kalina Work Phone: [facility] Work Phone: 11-22-2021 15:34-0400 Body temperature 97 [degF] Salima Candelario Kalina Work Phone: [facility] Work Phone: 11-22-2021 15:34-0400 Body weight 85.28 kg Salima Candelario Kalina Work Phone: [facility] Work Phone: 11-22-2021 15:34-0400 Diastolic blood pressure 73 mm[Hg] Salima Candelario Kalina Work Phone: [facility] Work Phone: 11-22-2021 15:34-0400 Heart rate 66 /min Salima Yuenabrese Work Phone: [facility] Work Phone: 11-22-2021 15:34-0400 SaO2% (BldA) [Mass fraction] 97 % Salima Yuenabrese Work Phone: [facility] Work Phone: 11-22-2021 15:34-0400 Systolic blood pressure 112 mm[Hg] Salima Spenceese Work Phone: [facility] Work Phone: 07-12-2021 08:30-0500 Body height 152.4 cm [facility]ese [facility] Work [facility]: 07-12-2021 08:30-0500 Body mass index (BMI) [Ratio] 36.33 kg/m2 Salima Spenceese Work Phone: [facility] Work Phone: 07-12-2021 08:30-0500 Body surface area Derived from formula 1.81 m2 Salima Spenceese Work Phone: [facility] Work Phone: 07-12-2021 08:30-0500 Body temperature 96.4 [degF] Salima Yuenabrese Work Phone: [facility] Work Phone: 07-12-2021 08:30-0500 Body weight 84.37 kg Salima Spenceese Work Phone: [facility] Work Phone: 07-12-2021 08:30-0500 Diastolic blood pressure 82 mm[Hg] [facility]ima [facility]ese [facility] Work [facility]: 07-12-2021 08:30-0500 Heart rate 88 /min Salima Spenceese Work Phone: [facility] Work Phone: 07-12-2021 08:30-0500 Respiratory rate 16 /min Salima Spenceese [facility] Work Phone: 07-12-2021 08:30-0500 SaO2% (BldA) [Mass fraction] 98 % Salima Kodak Kalina Work Phone: [facility] Work Phone: 07-12-2021 08:30-0500 Systolic blood pressure 122 mm[Hg] Salima Kodak Kalina Work Phone: [facility] Work Phone: 06-23-2021 13:19-0500 Body height 152.4 cm Salima Kodak Kalina Work Phone: [facility] DO Work Phone: 06-23-2021 13:19-0500 Body mass index (BMI) [Ratio] 35.54 kg/m2 Salima Candelario Kalina Work Phone: [facility] DO Work Phone: 06-23-2021 13:19-0500 Body surface area Derived from formula 1.79 m2 Salima Kodak Kalina Work Phone: [facility] DO Work Phone: 06-23-2021 13:19-0500 Body weight 82.56 kg Salima Kodak Kalina Work Phone: [facility] DO Work Phone: 06-23-2021 13:19-0500 Diastolic blood pressure 78 mm[Hg] Salima Kodak YuenKalina Work Phone: [facility] DO Work Phone: 06-23-2021 13:19-0500 Heart rate 66 /min Salima Yuenabrese Work Phone: [facility] DO Work Phone: 06-23-2021 13:19-0500 Systolic blood pressure 120 mm[Hg] Salima Spenceese Work Phone: [facility] DO Work Phone: 06-07-2021 09:45-0500 65 1 Salima Spenceese Work Phone: [facility] DO Work Phone: Comment on above: [id number] 05-11-2021 10:30-0500 Diastolic blood pressure 68 mm[Hg] Salima Spenceese Work Phone: [facility] DO Work Phone: 05-11-2021 10:30-0500 Systolic blood pressure 126 mm[Hg] Salima Yuenabrese Work Phone: [facility] DO Work Phone: 05-11-2021 09:53-0500 Body height 152.4 cm Salima Gilman Work Phone: [facility] DO Work Phone: 05-11-2021 09:53-0500 Body mass index (BMI) [Ratio] 35.94 kg/m2 Salima Spenceese Work Phone: [facility] DO Work Phone: 05-11-2021 09:53-0500 Body surface area Derived from formula 1.8 m2 Salima Spenceese Work Phone: [facility] DO Work Phone: 05-11-2021 09:53-0500 Body weight 83.46 kg Salima Spenceese Work Phone: [facility] DO Work Phone: 05-11-2021 09:53-0500 Diastolic blood pressure 82 mm[Hg] Salima A Kalina Work Phone: [facility] DO Work Phone: 05-11-2021 09:53-0500 Heart rate 81 /min Salima Gilman Work Phone: [facility] DO Work Phone: 05-11-2021 09:53-0500 Systolic blood pressure 148 mm[Hg] Salima Gilman Work Phone: [facility] DO Work Phone: 10-29-2020 18:09-0400 Body height 152.4 cm Luna Homady PA-C [facility] Work Phone: 10-29-2020 18:09-0400 Body mass index (BMI) [Ratio] 34.76 kg/m2 Luna Homady PA-C [facility] Work Phone: 10-29-2020 18:09-0400 Body surface area Derived from formula 1.78 m2 Luna Homady PA-C [facility] Work Phone: 10-29-2020 18:09-0400 Body temperature 97.5 [degF] Luna Homady PA-C [facility] Work Phone: 10-29-2020 18:09-0400 Body weight 80.74 kg Ulna Homady PA-C [facility] Work Phone: 10-29-2020 18:09-0400 Diastolic blood pressure 58 mm[Hg] [facility] Work Phone: 10-29-2020 18:09-0400 Heart rate 80 /min Luna Homady PA-C [facility] Work Phone: 10-29-2020 18:09-0400 Respiratory rate 16 /min Luna Zacarias PA-C [facility] Work Phone: 10-29-2020 18:09-0400 SaO2% (BldA) [Mass fraction] 98 % Luna Zacarias PA-C [facility] Work Phone: 10-29-2020 18:09-0400 Systolic blood pressure 118 mm[Hg] Luna Zacarias PABarbraC [facility] Work Phone: 10-29-2020 18:09-0400 3 1 Luna Zacarias PA-C [facility] Work Phone: Comment on above: Para 10-29-2020 16:09-0400 Body height 152.4 cm Salima Spenceese Work Phone: [facility] Work Phone: 10-29-2020 16:09-0400 Body mass index (BMI) [Ratio] 34.76 kg/m2 Salima Spenceese Work Phone: [facility] Work Phone: 10-29-2020 16:09-0400 Body surface area Derived from formula 1.78 m2 Salima Spenceese Work Phone: [facility] Work Phone: 10-29-2020 16:09-0400 Body temperature 97.5 [degF] Salima Spenceese Work Phone: [facility] Work Phone: 10-29-2020 16:09-0400 Body weight 80.74 kg Salima Spenceese Work Phone: [facility] Work Phone: 10-29-2020 16:09-0400 Diastolic blood pressure 58 mm[Hg] Salima Gilman Work Phone: [facility] Work Phone: 10-29-2020 16:09-0400 Heart rate 80 /min Salima Gilman Work Phone: [facility] Work Phone: 10-29-2020 16:09-0400 Respiratory rate 16 /min Salima Gilman Work Phone: [facility] Work Phone: 10-29-2020 16:09-0400 SaO2% (BldA) [Mass fraction] 98 % Salima Gilman Work Phone: [facility] Work Phone: 10-29-2020 16:09-0400 Systolic blood pressure 118 mm[Hg] Salima Gilman Work Phone: [facility] Work Phone: 10-29-2020 16:09-0400 3 1 Salima Gilman Work Phone: [facility] Work Phone: Comment on above: GRAV PARA 09-24-2020 11:19-0400 Body height 152.4 cm Simone Coulter DO [facility] [place] Work Phone: 09-24-2020 11:19-0400 Body mass index (BMI) [Ratio] 30.66 kg/m2 Simone Coulter DO [facility] [place] Work Phone: 09-24-2020 11:19-0400 Body surface area Derived from formula 1.68 m2 Simone Coulter DO [facility] [place] Work Phone: 09-24-2020 11:19-0400 Body temperature 96.8 [degF] Simone Coulter DO [facility] [place] Work Phone: 09-24-2020 11:19-0400 Body weight 71.22 kg Simone Coulter DO [facility] [place] Work Phone: 09-24-2020 11:19-0400 Diastolic blood pressure 64 mm[Hg] Simone Coulter DO [facility] [place] Work Phone: 09-24-2020 11:19-0400 Heart rate 60 /min Simone Coulter [facility] [facility] [place] Work Phone: 09-24-2020 11:19-0400 Respiratory rate 16 /min Simone Coulter DO [facility] [place] Work Phone: 09-24-2020 11:19-0400 SaO2% (BldA) [Mass fraction] 97 % Simone Coulter DO [facility] [place] Work Phone: 09-24-2020 11:19-0400 Systolic blood pressure 110 mm[Hg] Simone Coulter DO [facility] [place] Work Phone: 09-24-2020 11:19-0400 3 1 Simone Coulter DO [facility] [place] Work Phone: Comment on above: Para 01-12-2020 11:18-0400 BMI (Body Mass Index) 20.89 kg/m2 Priscilla Leahy [facility] A2100 DO Work Phone: 01-12-2020 11:18-0400 Body weight 69.85 kg Priscilla Leahy [facility] A2100 DO Work Phone: 01-12-2020 11:18-0400 BP Diastolic 78 mm[Hg] Priscilla Leahy US-Oxwuspnslc-Xr stlake A2100 DO Work Phone: 01-12-2020 11:18-0400 BP Systolic 124 mm[Hg] Priscilla Leahy FA-Dmnyeavwjg-Ck stlake A2100 DO Work Phone: 01-12-2020 11:18-0400 BSA (Body Surface Area) 1.91 m2 Priscilla Leahy QO-Ooufiemlal-Li stlake A2100 DO Work Phone: 01-12-2020 11:18-0400 Height 182.88 cm Priscilla Leahy FR-Phuztjgqqo-Fs stlake A2100 DO Work Phone: 01-05-2020 15:57-0400 BMI (Body Mass Index) 28.35 kg/m2 Priscilla Leahy MP-Allergists-We stlake A2100 DO [...] Phone: 01-05-2020 15:57-0400 Height 157.48 cm Priscilla Rojasas YG-Wbpayxztak-Yq stlake A2100 DO Work Phone: 01-05-2020 15:57-0400 Pulse (Heart Rate) 75 /min Priscilla Armond MP-Allergists -We stlake A2100 DO Work Phone: 01-05-2020 15:57-0400 Pulse Oximetry 98 % Priscilla Armondmyles MARTELLVN-Xeqxhzllwr-Qn stlake A2100 DO Work Phone: 01-05-2020 15:57-0400 Respiratory Rate 16 /min Priscilla Armondmyles MARTELLAU-Coicvbysjo-Q e stlake A2100 DO Work Phone: 10-15-2019 17:37-0400 BMI (Body Mass Index) 27.34 kg/m2 Christian Tolbertlock [facility] Work Phone: 10-15-2019 17:37-0400 Body weight 67.81 kg Christian Sherlock [facility] Work Phone: 10-15-2019 17:37-0400 BP Diastolic 70 mm[Hg] Christian Sherlock [facility] Work Phone: 10-15-2019 17:37-0400 BP Systolic 102 mm[Hg] Christian Sherlock [facility] Work Phone: 10-15-2019 17:37-0400 BSA (Body Surface Area) 1.69 m2 Christian Sherlock [facility] Work Phone: 10-15-2019 17:37-0400 Height 157.48 cm Christian Sherlock [facility] Work Phone: Encounters Encounter Date Encounter Type Care Provider Facility Start: 2023 ambulatory DO Micah Diaz Fac ility:[facility] Start: 07-27-2023 End: 07-27-2023 ambulatory [facility] Ambulatory Start: 06-29-2023 [facility] Facili ty:FM Jony Start: 06-29-2023 End: 07-14-2023 Pre-admission assessment Kayla Dent [facility] Start: 04-26-2023 End: 07-26-2023 ambulatory CYNDI [facility]RA[facility] Facility:[facility] Start: 04-26-2023 End: 07-25-2023 Recurring CYNDI Luna [facility] Start: 04-16-2023 End: 04-16-2023 ambulatory [facility] Ambulatory Start: 04-16-2023 End: 04-16-2023 Office outpatient visit 25 minutes [facility] 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 Comment on above: High risk medication use (Primary Dx); Palpitations; Premature ventricular contractions (PVCs) (VPCs); Tachycardia Start: 04-10-2023 End: 04-11-2023 [facility] Start: 04-10-2023 End: 04-10-2023 Subsequent hospital visit by physician Marty James [facility] [place] Comment on above: Palpitations Start: 03-30-2023 End: 03-31-2023 ambulatory CYNDI CHEW Facility:[facility] Start: 03-30-2023 End: 03-30-2023 Patient encounter procedure CYNDI CHEW [facility] Start: 03-05-2023 Patient encounter procedure Kayla Dent MP-[facility] 300 DO Work Phone: Start: 03-05-[address] Kayla Dent F acility:[id number] Start: 03-01-2023 AUDIT Kayla Dent MP-[facility] 320 DO Work Phone: Start: 11-08-2022 ambulatory MD FEDERICO WING Fa cility: Start: 10-13-2022 Chart Update Kayla Dent -[facility] Work Phone: Start: 10-10-[address] Kayla Dent F acility:[id number] Start: 09-24-2022 End: 09-24-2022 Emergency department patient visit Vincent Pan Facility:[facility] Start: 09-23-2022 End: 09-24-2022 Emergency department patient visit Vincent Pan [facility] Start: 09-22-2022 End: 09-23-[address] Kayla Dent Facility: Start: 09-22-2022 End: 09-22-2022 Patient encounter procedure Federico Wing [facility] Start: 09-21-2022 End: 09-22-[address] Kayla Dent Facility: Start: 09-21-2022 End: 09-21-2022 Patient encounter procedure Federico Diaz [facility] Start: 09-20-2022 ambulatory MD FEDERICO WING Fa cility: Start: 09-20-2022 Office outpatient vi sit 40 minutes Kayla Dent -[facility] 305 DO Work Phone: Start: 09-01-2022 ambulatory Federico Wing Facility:[id number] Start: 08-29-2022 EKG, Provider: [facility] [id number] DIRECTOR OF ORTHOPEDICS 1,[id number], Status: Pen, Time: 10:00 AM Kayla Dent MP-[facility] 300 DO Work Phone: Start: 08-29-2022 Patient encounter procedure Kayla Dent MP-[facility] 300 DO Work Phone: Start: 08-29-2022 ambulatory MD FEDERICO WING Fa cility: Start: 08-28-2022 Patient encounter procedure Kayla Dent -[facility] 300 DO Work Phone: Start: 08-28-2022 ambulatory MD FEDERICO WING Fa cility: Start: 08-25-2022 AUDIT Kayla Monroeeen Olena [facility] Work Phone: Start: 08-23-2022 End: 08-25-2022 Evaluation and management of inpatient Skip Leticia Facility:[id number] Start: 08-23-2022 AUDIT Kayla Dent [facility] Work Phone: Start: 08-22-2022 End: 08-25-2022 Evaluation and management of inpatient Skip Bridgettbecker [place] 8 Cardio ICU 807 01 Start: 08-18-2022 Office consultation new/estab patient 80 min Kayla Dent -[facility] 300 DO Work Phone: Start: 08-18-[address] Skip Gonzalez Facility: Start: 08-07-2022 End: 08-08-2022 ambulatory XXXX NONE Facility:[facility] Start: 08-07-2022 End: 08-07-2022 Patient encounter procedure Luna DICKINSON [facility] Start: 07-12-2022 End: 07-12-2022 Patient encounter procedure Skip Gonzalez [facility] Start: 06-29-2022 End: 06-29-2022 ambulatory CAMPBELL HERNANDEZ Facility:[id number] Start: 06-27-2022 End: 06-27-2022 Patient encounter procedure Kayla Dent [facility] Start: 06-26-2022 End: 07-08-2022 Pre-admission assessment Kayla Dent [facility] Start: 03-28-2022 End: 03-28-2022 Patient encounter procedure Kayla Barrette [facility] Start: 12-28-2021 Chart Update Salima Yuen abrronald Work Phone: [facility] Work Phone: Start: 12-28-[address] Salima Gilman Facility:[id number] Start: 12-21-2021 Office outpatient vi sit 15 minutes Salima Gilman Work Phone: [facility] 250 DO Work Phone: Start: 12-21-2021 Patient encounter procedure Salima Gilman Work Phone: [facility] 127 DO Work Phone: Start: 11-30-[address] Salima Gilman Facility:[id number] Start: 11-22-2021 Office outpatient vi sit 10 minutes Salima Gilman Work Phone: [facility] Work Phone: Start: 11-22-2021 Patient encounter procedure Salima Gilman Work Phone: [facility] Work Phone: Start: 08-18-2021 Rx Change Salima uYen abrronald Work Phone: [facility] Work Phone: Start: 08-02-2021 End: 08-05-2021 ambulatory [facility] Start: 07-12-2021 Office outpatient vi sit 15 minutes Salima Spenceese Work Phone: [facility] Work Phone: Start: 06-23-2021 FUV, Provider: Samara Roe, Status: Pen, Time: 1:15 PM Salima Kodak YuenKalina Work Phone: [facility] 127 DO Work Phone: Start: 06-23-2021 Patient encounter procedure Salima Kodak YuenKalina Work Phone: [facility] 127 DO Work Phone: Start: 06-22-2021 Chart Update Salima Yuen abrese Work Phone: [facility] 127 DO Work Phone: Start: 06-17-2021 Chart Update [facility]en florindaese [facility] Work [facility]: Start: 06-14-2021 End: 09-12-2021 Patient encounter procedure SALIMA Kodak YUENKALINA [facility] Start: 06-07-2021 Patient encounter procedure Salima Kodak YuenKalina Work Phone: [facility] 127 DO Work Phone: Start: 05-23-2021 Chart Update Salima Yuen florindaese Work Phone: [facility] 127 DO Work Phone: Start: 05-11-2021 Office outpatient ne w 45 minutes Salima Yuenabrese Work Phone: [facility] 127 DO Work Phone: Start: 05-03-2021 Patient encounter procedure Salima Spenceese Work Phone: [facility] Work Phone: Start: 04-27-2021 AUDIT Salima garcia Work Phone: [facility] Work Phone: Start: 04-22-2021 [facility], Provider: Simone Coulter, Status: Pen, Time: 8:00 AM Salima Gilman Work Phone: [facility] [place] Work Phone: Start: 04-21-2021 Chart Update Salima garcia Work Phone: [facility] [place] Work Phone: Start: 12-09-2020 Patient encounter procedure Salima Gilman Work Phone: [facility] Work Phone: Start: 11-23-2020 AUDIT Salima garcia Work Phone: [facility] Work Phone: Start: 10-29-2020 Patient encounter procedure Luna Zacarias PA-C [facility] Work Phone: Start: 10-14-2020 Patient encounter procedure Simone Coulter DO [facility] [place] Work Phone: Start: 09-24-2020 Patient encounter procedure Simone Coulter DO [facility] [place] Work Phone: Start: 09-16-2020 Patient encounter procedure Simone Coulter DO [facility] [place] Work Phone: Start: 08-17-2020 Patient encounter procedure Simone Coulter DO [facility] [place] Work Phone: Start: 08-09-2020 Patient encounter procedure Simone Coulter DO [facility] [place] Work Phone: Start: 06-28-2020 Patient encounter procedure Simone Coulter DO -[facility] [facility] [place] Work Phone: Start: 06-15-2020 Patient encounter procedure Simone Coulter DO [facility] [place] Work Phone: Start: 05-05-2020 Patient encounter procedure Priscilla Leahy [facility] 6115 Work Phone: Start: 04-30-2020 Patient encounter procedure Priscilla Leahy [facility] 6115 Work Phone: Start: 04-26-2020 Patient encounter procedure Priscilla Leahy [facility] 6115 Work Phone: Start: 02-16-2020 Patient encounter procedure Priscilla Leahy [facility] 6115 Work Phone: Start: 01-21-2020 Patient encounter procedure Priscilla Leahy [facility] 6115 Work Phone: Start: 01-16-2020 Patient encounter procedure Priscilla Leahy [facility] 6115 Work Phone: Start: 01-12-2020 Patient encounter procedure Priscilla Leahy [facility] 6115 Work Phone: Start: 01-05-2020 Patient encounter procedure Priscilla Armond EW-Zzowvxonem-Hutpdr ke A2100 DO Work Phone: Start: 10-27-2019 Patient encounter procedure Priscilla Armond AG-Jpdjoyanrj-Grfkct ke A2100 DO Work Phone: Start: 10-15-2019 [facility] Start: 08-25-2019 [facility] Start: 06-30-2019 Patient encounter procedure Salima Gilman [facility] Work Phone: Start: 05-24-2019 Patient encounter procedure Salima Gilman [facility] Work Phone: Cancer cervix - screening done Simone Coulter DO [facility] Work Phone: Comment on above: 05/24/19-WNL, HPV NEG ; Encounter for gynecological examination (general) (routine) without abnormal findings Salima Candelario Kalina Work Phone: [facility] Work Phone: Comment on above: 05/24/19-WNL, HPV NEG ; Mammography normal Salima Kodak perry Work Phone: [facility] Work Phone: Comment on above: 05/2020-cat 112// 019-CAT 1; Procedures Date Procedure Procedure Detail Performing Clinician Start: 07-27-2023 ECG 12-LEAD EVIE Reyes Start: 07-27-2023 FOLLOW UP IN CARDIOLOGY EVIE AGUDELO Start: 04-16-2023 Ecg routine ecg w/le ast 12 lds w/i&r 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 MAINTENANCE Work Phone: Start: 04-10-2023 LEGACY HOLTER OR ASHWIN NT DEFENCE FORCE MEMBER OTHER RANKS JOSELO HINSON Start: 04-10-2023 Xtrnl pt activtd ecg dwnld w/r&i 30 days Joselo Hinson 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 MAINTENANCE Work Phone: Start: 08-25-2022 End: 08-25-2022 EKG impression Kayla Shaw Start: 08-24-2022 End: 08-24-2022 EKG impression Skip Kelly Start: 07-14-2022 Catheterization of l eft heart Luna DICKINSON Start: 12-28-2021 Mammography Uh Holter Start: 06-07-2021 Echocardiography Lynnette Gilman Work Phone: Start: 05-17-2021 Lipid 1996 panel - S jamaica or Plasma [facility] Start: 01-05-2020 Ultrasound Pelvic Mass Priscilla Leahy Start: 01-05-2020 VAGINITIS GRAM STAIN FOR BACTERIAL VAGINOSIS + YEAST Priscilla Leahy Start: 10-15-2019 Assay of thyroid stimulating hormone tsh Christian Tolbertlock Start: 06-30-2019 Scallop, IgE, IC Jendimasf er Kalina Start: 06-30-2019 Shrimp, IgE, IC Jendimasfe r Kalina Start: 05-24-2019 Microscopic observat ion [Identifier] in Cervix by Cyto stain [facility] Bilateral tubal ligation Mariposa Gilman Comment on above: 1995; Carpal tunnel syndro me (disorder) Skip Gonzalez section Salima perry Comment on above: 1990, 1992, 1995; section Skip moreno Comment on above: x 3 Cholecystectomy Salima garcia Comment on above: 2016; Cholecystectomy Skip brooke Decompression of med arnold nerve Salima Gilman Work Phone: Extraction of wisdom tooth Varghese Gilman Ligation of fallopian tube Adolfo Gonzalez Structure of wisdom tooth (body structure) Skip Gonzalez Plan of Treatment Date Care Activity Detail Author Start: 05-17-2026 Lipid panel Lipid Panel [facility] Start: 07-16-2023 End: 07-16-2023 Patient encounter procedure 07/16/2023 11:00 AM EST Office Visit [facility] [address] [place] [id number] Federico Wing MD [address] [facility] [address], [address] [place], [place] [id number] [facility] Start: 05-14-2023 FUV, Provider: Federico Wing, Status: Pen, Time: 8:45 AM FUV, Provider: Federico Wing, Status: Pen, Time: 8:45 AM [facility] Work Phone: Start: 05-14-2023 End: 05-14-2023 Patient encounter procedure 05/14/2023 8:45 AM EST Office Visit [facility] [address] [place] [address] Federico Wing MD [address] [facility] [address] [place], [place] [phone] [facility] Start: 04-16-2023 End: 04-16-2023 Patient encounter procedure 04/16/2023 1:00 PM EDT Office Visit [facility] [address] [facility] [address] [place] [address] 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, 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 REPAIRER MAINTENANCE [address] [place] [address] [facility] Start: 03-05-2023 EVENT GRACY, Provider : LEON SCHMIDT DIRECTOR OF ORTHOPEDICS 1,[id number], Status: Pen, Time: 3:00 PM EVENT GRACY, Provider: [id number] DIRECTOR OF ORTHOPEDICS 1,[id number], Status: Pen, Time: 3:00 PM [facility] Work Phone: Start: 02-16-2023 Influenza vaccination Influenza Vacc ine (#1) [facility] Start: 12-28-2022 Screening for malignant neoplasm of breast Mammogram [facility] Start: 11-08-2022 FUVRESULTS, Provider : Federico Wing, Status: Pen, Time: 11:45 AM FUVRESULTS, Provider: Federico Wing, Status: Pen, Time: 11:45 AM [facility] [place] Work Phone: Start: 09-20-2022 FUVHOSP, Provider: Federico Wing, Status: Pen, Time: 11:45 AM FUVHOSP, Provider: Federico Wing, Status: Pen, Time: 11:45 AM [facility] [place] Work Phone: Start: 09-20-2022 Patient encounter procedure [facility] [place] Start: 09-01-2022 [facility], Provider: Federico Wing, Status: Pen, Time: 9:00 AM [facility], Provider: Federico Wing, Status: Pen, Time: 9:00 AM [facility] Work Phone: Start: 08-29-2022 EKG, Provider: LEON SCHMIDT DIRECTOR OF ORTHOPEDICS 1,[id number], Status: Pen, Time: 10:00 AM EKG, Provider: LEON SCHMIDT DIRECTOR OF ORTHOPEDICS 1,[id number], Status: Pen, Time: 10:00 AM [facility] [place] Work Phone: Start: 08-29-2022 Patient encounter procedure [facility] [place] Start: 08-28-2022 EKG, Provider: LEON SCHMIDT DIRECTOR OF ORTHOPEDICS 1,[id number], Status: Pen, Time: 10:00 AM EKG, Provider: LOEN SCHMIDT DIRECTOR OF ORTHOPEDICS 1,[id number], Status: Pen, Time: 10:00 AM [facility] [place] Work Phone: Start: 08-28-2022 Patient encounter procedure [facility] [place] Start: 08-25-2022 Arrhythmia Arrhythmia Meek e: 25-Aug-2022 [facility] Start: 08-24-2022 Arrhythmia Arrhythmia Meek e: 24-Aug-2022 [facility] Start: 08-22-2022 Chest pain Chest pain Meek e: 22-Aug-2022 [facility] Start: 08-14-2022 Screening for malignant neoplasm of colon [facility] Start: 05-24-2022 Screening for malignant neoplasm of cervix [facility] Start: 12-21-2021 FUV, Provider: Samara Roe, Status: Pen, Time: 9:45 AM FUV, Provider: Samara Roe, Status: Pen, Time: 9:45 AM -[facility] 127 DO Work Phone: Start: 09-30-2021 COVID-19 Vaccine (2 - Booster for [place] series) COVID-19 Vaccine (2 - Booster for Chi[place] series) [facility] Start: 06-23-2021 FUV, Provider: Samara Roe, Status: Pen, Time: 1:15 PM FUV, Provider: Samara Roe, Status: Pen, Time: 1:15 PM -[facility] 127 DO Work Phone: Start: 06-16-2021 FUV, Provider: Samara Roe, Status: Pen, Time: 1:00 PM FUV, Provider: Samara Roe, Status: Pen, Time: 1:00 PM [facility] 127 DO Work Phone: Start: 06-07-2021 [address] 48, Provider: LEON GREENWOOD DIRECTOR OF ORTHOPEDICS 1,[id number], Status: Pen, Time: 11:00 AM [facility] 48, Provider: LEON GREENWOOD DIRECTOR OF ORTHOPEDICS 1,[id number], Status: Pen, Time: 11:00 AM [facility] 127 DO Work Phone: Start: 06-07-2021 STRESS ESTELLE, Provider : CAMPBELL [facility] NUCLEAR 01,[id number], Status: Pen, Time: 10:30 AM STRESS ESTELLE, Provider: [id number] [facility]VI NUCLEAR 01,[id number], Status: Pen, Time: 10:30 AM -[facility] 127 DO Work Phone: Start: 06-07-2021 ECHO, Provider: CAMPBELL [facility] ULTRASOUND 01,[id number], Status: Pen, Time: 9:45 AM ECHO, Provider: CAMPBELL [facility] ULTRASOUND 01,[id number], Status: Pen, Time: 9:45 AM [facility] 127 DO Work Phone: Start: 05-11-2021 NPVRFRL, Provider: Samara Roe, Status: Pen, Time: 9:30 AM NPVRFRL, Provider: Samara Roe, Status: Pen, Time: 9:30 AM [facility] Work Phone: Start: 05-11-2021 NPVRFRL, Provider: Enrrique Porter, Status: Pen, Time: 9:15 AM NPVRFRL, Provider: Enrrique Porter, Status: Pen, Time: 9:15 AM [facility] Work Phone: Start: 05-10-2021 FUV, Provider: Salima Gilman, Status: Pen, Time: 8:45 AM FUV, Provider: Salima Gilman, Status: Pen, Time: 8:45 AM [facility] Work Phone: Start: 05-03-2021 POV, Provider: Simone Coulter, Status: Pen, Time: 10:15 AM POV, Provider: Simone Coulter, Status: Pen, Time: 10:15 AM [facility] Work Phone: Start: 04-12-2021 POV, Provider: Simone Coulter, Status: Pen, Time: 9:00 AM POV, Provider: Simone Coulter, Status: Pen, Time: 9:00 AM [facility] Work Phone: Start: 04-01-2021 [facility], Provider: Simone Coulter, Status: Pen, Time: 7:30 AM [facility], Provider: Simone Coulter, Status: Pen, Time: 7:30 AM [facility] Work Phone: Start: 12-09-2020 FUV, Provider: Simone Coulter, Status: Pen, Time: 8:00 AM FUV, Provider: Simone Coulter, Status: Pen, Time: 8:00 AM [facility] Work Phone: Start: 2018 Zoster Vaccines (1 o f 2) Zoster Vaccines (1 of 2) [facility] Start: 1990 DTaP/Tdap/Td Vaccine s (1 - Tdap) DTaP/Tdap/Td Vaccines (1 - Tdap) [facility] Start: 1989 Screening for malignant neoplasm of cervix HPV/Cotest [facility] Start: 1986 Diabetes mellitus screening Diabetes Screening [facility] Start: 1986 Hepatitis C screening Hepatitis C Sc reening [facility] Start: 1974 Pneumococcal Vaccine : Pediatrics (0 to 5 Years) and At-Risk Patients (6 to 64 Years) (1 - PCV) Pneumococcal Vaccine: Pediatrics (0 to 5 Years) and At-Risk Patients (6 to 64 Years) (1 - PCV) [facility] Start: 1969 MMR Vaccines (1 of 1 - Standard series) MMR Vaccines (1 of 1 - Standard series) [facility] Start: 1968 Hepatitis B Vaccines (1 of 3 - 3-dose series) Hepatitis B Vaccines (1 of 3 - 3-dose series) [facility] Start: 1968 HIV screening HIV Screening [facility] Start: 1968 Screening for malignant neoplasm of colon [facility] Start: 1968 Yearly Adult Physical Yearly Adult P hysical [facility] Chest pain Chest pain [facility] ECG 12 Lead ECG 12 Lead ECG Routine High risk medication use Palpitations Premature ventricular contractions (PVCs) (VPCs) 04/16/2023 3:53 PM EDT [facility] Service Area Work Phone: End: 04-10-2023 Holter monitor study [facility] Service Area Work Phone: Comment on above: Once for 1 Occurrenc es starting 04/10/2023 until 04/10/2023 [facility] Work Phone: NEGATED: Highlighted row has been ruled out! 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
== END 2023-07-31 08:34 | disposition home or self-care (01) ==
LOC: RAD 08:34
PROVIDERS: Visit Provider Podiatrist Foot & Ankle Surgery
DX: M79.671 Pain in right foot (principal); Z98.890 Other specified postprocedural states
CPT/HCPCS: 73630

== ENCOUNTER 2023-09-25 08:31 | Outpatient (OUT) | payer OTHER, BC, SELFPAY ==
--- NOTE | 2023-09-25 | XR_ITS ---
The [address] [address] Patient Name: NAN HANNA MRN: [id number] date: 1970 Sex: F Assigned Patient Location: Current Patient Location: Accession/Order Number: [id number] Exam Date: 09/25/2023 08:38 Report Date: 09/25/2023 10:37 At the request of: CYNDI CHEW Procedure: XR foot RT min 3V PROCEDURE: XR foot RT min 3V COMPARISON: 07/31/2023 HISTORY: RIGHT FOOT PAIN FINDINGS: BONES:Stable subtalar fusion. Contour deformity of the mid calcaneus, postsurgical versus posttraumatic change with partial bony bridging. There is some lucency surrounding the most anterior talocalcaneal screw. Single surgical staple base of the first metatarsal. Degenerative changes. SOFT TISSUES:Mild soft tissue swelling. EFFUSION:Small ankle joint effusion OTHER: Negative. XR/XR foot RT min 3V IMPRESSION: Lucency surrounding the anterior calcaneal screw could represent loosening Electronically authenticated by: MARKO BOWDEN Date: 09/25/2023 10:37
== END 2023-09-25 08:32 | disposition home or self-care (01) ==
LOC: EC 08:31
PROVIDERS: Visit Provider Podiatrist Foot & Ankle Surgery
DX: M19.171 Post-traumatic osteoarthritis, right ankle and foot (principal)
CPT/HCPCS: 73630

== ENCOUNTER 2023-11-06 08:48 | Outpatient (OUT) | payer OTHER, BC, SELFPAY ==
--- NOTE | 2023-11-06 | XR_ITS ---
The [address] [address] Patient Name: NAN HANNA MRN: [id number] date: 1970 Sex: F Assigned Patient Location: Current Patient Location: Accession/Order Number: [id number] Exam Date: 11/06/2023 08:57 Report Date: 11/07/2023 05:41 At the request of: CYNDI CHEW Procedure: XR foot RT min 3V PROCEDURE: XR foot RT min 3V HISTORY: RIGHT FOOT PAIN COMPARISON: XR foot 09/25/2023 FINDINGS: BONES:Talocalcaneal fusion via 3 lag screws. Bone staple within proximal dorsal margin of first metatarsal. No bone or hardware fracture. Slight loosening of calcaneal trabecula adjacent the posterior calcaneus screws, unchanged. SOFT TISSUES:No visible soft tissue swelling. EFFUSION:None visible. OTHER: Negative. XR/XR foot RT min 3V IMPRESSION: 1. No acute abnormality or appreciable bone or hardware change. Electronically authenticated by: GENARO MICHELLE Date: 11/07/2023 05:41
--- OUTSIDE RECORDS SUMMARY | 2023-11-06 09:10 | XMS_ITS | CCD ---
Author Organization [facility] ion [facility] Care Team Providers Care Renewals Representative Name Role Phone Salima Gilman Unavailable Unavailable Kalina Salima A Unavailable UnavailChristian Kessler Unavailable Unavailable Hien Gilmanfer A Unavailable UnavailPriscilla Rose Unavailable Unavailable Maday Schmitz Unavailable Unavailable Salima Gilman Unavailable Unava ilable Celi Barrett Unavailable Unavailable Priscilla Leahy Unavailable Unavailable Simone Coulter DO Unavailable Unavailable Luna Zacarias PA-C Unavailable Unavailable Salima Gilman MD Unavailable Unavailab andree Schmitz MARKETING SERVICES COORDINATOR-PORTRAIT PAINTER Maday Unavailable Unavaila ble Salima Gilman A Unavailable UnavailCeli Kang Unavailable Unavailable Priscilla Leahy Unavailable Unavailable Celi Barrett Unavailable Unavailable Priscilla Leahy Unavailable Unavailable Salima Gilman A Unavailable Unavailable Unavailable SAMARA ROE Referring Unavailable GERRY SALMERON Primary Care Unavailable SALIMA GILMAN Primary Care Physician Kayla Dent Primary Care Physician [phone] CAMPBELL HERNANDEZ Consulting Unavailable KAYLA DENT Primary Care Unavailable CINTHIA ., MAGDA Admitting Unavailable CINTHIA ., MAGDA Attending Unavailable MARKO GARY Consulting Unavailable BONY SOLARES Consulting Unavailable CINTHIA ., MAGDA Consulting Unavailable Kayla Dent Unavailable Unavailable Unavailable Unavailable Kayla Dent Unavailable Federico Wing Unavailable Skip Kelly Unavailable Unavailable Federico Wing Referring Unavailable Federico Wing Attending Unavailable Jailene, Dr. Kayla Hassan Primary Care Unavailab andree Gilman, Dr. Salima Myles Primary Care U navailable Briane, MsFaby Winn Attending Unavailable Kalina, Dr. Salima Myles Primary Care U navailable Kamryn, MsFaby Winn Attending Unavailable Jailene, Dr. Kayla Hassan Primary Care Unavailab le Federico Wing Attending Unavailable Skip Kelly Attending Unavailable Skip [...] Hassan Primary Care Unavailab andree HINSON, LINDA HOUSTON Attending Unavailable SINCERE, LINDA JOSELO CELSO Referring Unavailable Carlos, Dr. Skip Smith Referring U judahable Kalina, Dr. Salima Myles Primary Care U judahable MECCA, MD FEDERICO MANSFIELD Attending Unavailabl e MD FEDERICO WING Referring Unavailprecious Dent, Dr. Kayla Hassan Primary Care Unavailab MD FEDERICO Meza Attending Unavailprecious WING, MD FEDERICO MANSFIELD Referring Unavailprecious Dent, Dr. Kayla Hassan Primary Care Unavailab MD FEDERICO Meza Attending Unavailabl e MD FEDERICO WING Referring Unavailabl e MECCA, MD FEDERICO MANSFIELD Attending Unavailprecious Dent, Dr. Kayla Hassan Primary Care Unavailab andree Dent DO, Kayla Hassan Primary Care Provider Jailene DIMAS, Kayla Hassan Primary Care Provider JOSELO HINSON Referring Unavaila lisandra DENT, KAYLA HASSAN Primary Care Unavailable Jailene DIMAS, Kayla Hassan Primary Care Provider Unav ailable EVIE AGUDELO Attending Unavailable JAILENE, KAYLA HASSAN Primary Care Unavailable HAYDEN WINGTO N Attending Unavailable EVIE AGUDELO Referring Unavailable JAILENE KAYLA SONYA Primary Care Unavailable Micah Diaz Primary Care Physician Unavail able Micah Diaz Attending Unavailable CYNDI CHEW Attending Unavailable CYNDI CHEW Referring Unavailable HIGHLCYNDI DIAZ Admitting Unavailable CYNDI CHEW Attending Unavailable CYNDI CHEW Referring Unavailable Micah Diaz Admitting Unavailable Micah Diaz Attending Unavailable Micah Diaz Attending Unavailable PLEASNICK, JUAN LUIS Candelario Attending Unavailab le TAVO, DEIRDRE Referring Unavailable PLEASNICK, JUAN LUIS Candelario Attending Unavailab le TAVO, DEIRDRE Referring Unavailable PLEASNICK, JUAN LUIS A Attending Unavailab le TAVO, DEIRDRE Referring Unavailable PLEASNICK, JUAN LUIS A Attending Unavailab le TAVO, DEIRDRE Referring Unavailable PLEASNICK, JUAN LUIS A Attending Unavailab le TAVO, DEIRDRE Referring Unavailable PLEASNICK, JUAN LUIS A Attending Unavailab le TAVO, DEIRDRE Referring Unavailable PLEASNICK, JUAN LUIS A Attending Unavailab le TAVO, DEIRDRE Referring Unavailable PLEASNICK, JUAN LUIS A Attending Unavailab le TAVO, DEIRDRE Referring Unavailable PLEASNICK, JUAN LUIS A Attending Unavailab le TAVO, DEIRDRE Referring Unavailable PLEASNICK, JUAN LUIS A Attending Unavailab le TAVO, DEIRDRE Referring Unavailable Allergies Allergy Classification Reported Allergen(s) Allergy Type Date of Onset Reaction(s) Facility Fish (7 sources) shellfish, unspecified Food Allergy Hives, Angioedema -[facility] Work Phone: (20 sources) shellfish, unspecified; Translations: [shellfish] food allergy Hives, Angioedema, Weal (disorder) [facility] (1 source) Shellfish Drug allergy (disorder) 3 [facility] (8 sources) Shellfish; Translations: [shellfish] Drug allergy 3 Weal (disorder), Angioedema, Hives [facility] (1 source) Shellfish Facial Swelling, Hives [facility] (2 sources) SHELLFISH CONTAINING PRODUCTS; Translations: [SHELLFISH CONTAINING PRODUCTS] Propensity to adverse reactions to food (disorder) 3 [facility] [place] Repository Medications Current Medications Medication Drug Class(es) Dates Sig (Normalized) Sig (Original) aspirin 81 mg delayed release oral tablet (20 sources) Platelet Aggregation Inhibitor, Nonsteroidal Anti-inflammatory Drug Start: 07-12-2022 take 1 tablet by mouth once daily aspirin 81 mg Oral EC Tab 81 mg = 1 tab(s), Oral, Daily, # 30 tab(s), Refills(s) 3, Pharmacy: [id number], 152, cm, 09/23/22 22:25:00 [...] Allowed flecainide acetate 100 mg oral tablet (12 sources) Antiarrhythmic Start: 2023 flecainide 100 mg Tab Refills(s) 0 Start Date: 10/02/23 Status: Ordered Start: 03-09-2023 take 1 tablet by sydni th every twelve hours flecainide (Tambocor) 100 mg [...] mg) by mouth once daily. 0 Active meloxicam 15 mg oral tablet (2 sources) Nonsteroidal Anti-inflammatory Drug Start: 2023 meloxicam 15 mg Tab 15 mg = 1 tab(s), Refills(s) 0 Start Date: 10/02/23 Status: Ordered 24 hr metoprolol succinate 25 mg extended release oral tablet (20 sources) beta-Adrenergic Claudia Start: 03-12-2023 take 1 tablet by mouth once daily metoprolol 25 mg ER Tab 25 mg = 1 tab(s), Oral, Daily, # 30 tab(s), Refills(s) 3, Pharmacy: [id number], 152, cm, 09/23/22 22:25:00 EDT, Height/Length Dosing, 86.5, kg, 09/23/22 22:25:00 EDT, Weight Dosing Start Date: 03/12/23 Status: Ordered Start: 06-23-2021 take 1 tablet by sydni th once daily metoprolol 25 mg ER Tab 25 mg = 1 tab(s), Oral, Daily, # 30 tab(s), Refills(s) 3, Pharmacy: [id number], 152, cm, 07/12/22 15:54:00 [...] Active solifenacin succinate 5 mg oral tablet (20 sources) Cholinergic Muscarinic Antagonist Start: 07-04-2022 take [...] day Quantity: 0 Refills: 0 Ordered: 02-Sep-2020 Partima Lisa Generic Substitution Allowed diazePAM 2 mg oral tablet (7 sources) Benzodiazepine Start: 09-20-2022 End: 04-16-2023 diazePAM (Valium) 2 mg tablet TAKE 1 TABLET BY MOUTH 30 MINUTES PRIOR TO MRI APPOINTMENT 0 09/20/2022 04/16/2023 Discontinued (Med List Cleanup) [id number] 0.3 ml EPINEPHrine 1 mg/ml auto-injector (20 [...] symptom associated with female genital organs] Onset: 3 04-10-2023 Episodic Acute bronchitis (20 sources) Acute bronchitis; Translations: [Acute bronchitis] Onset: 3 04-10-2023 Episodic Allergic reactions (20 sources) Shellfish allergy; Translations: [Food allergy] Onset: 3 04-13-2023 Episodic Cardiac dysrhythmias (20 sources) Ventricular premature beats; Translations: [Other premature beats] Onset: 3 08-22-2022 Chronic Conditions associated with dizziness or vertigo (2 sources) Lightheadedness; Translations: [Dizziness and giddiness] 08-22-2022 Episodic Esophageal disorders (3 sources) Gastroesophageal reflux disease without esophagitis; Translations: [Gastro-esophageal reflux disease without esophagitis] Onset: 4 Chronic Genitourinary symptoms and ill-defined conditions (2 sources) Stress incontinence (female) (male); Translations: [Unspecified urinary incontinence] Onset: 3 Chronic Immunizations and screening for infectious disease (20 sources) Patient encounter status; Translations: [Other specified vaccination] Onset: 4 Episodic Lymphadenitis (20 sources) Lymphadenopathy; Translations: [Enlargement of lymph nodes] Onset: 3 04-10-2023 Episodic Menopausal disorders (20 sources) Menopausal symptom; Translations: [Symptomatic menopausal or female climacteric states] Onset: 3 04-10-2023 Chronic Menstrual disorders (1 source) Missed period; Translations: [Missed menses] Chronic Mood disorders (7 sources) Mood swings; 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] Onset: 4 Chronic Mood disorders (20 sources) Mood swings; Translations: [Emotional lability] Onset: 3 04-10-2023 Episodic Mood disorders (1 source) Mood disorders; Translations: [DEPRESSION UNSPECIFIED] Onset: 3 Mycoses (6 sources) Candidal intertrigo; Translations: [Candidiasis of skin and nails] Episodic Nonmalignant breast conditions (17 sources) Breast lump; Translations: [Lump or mass in breast] Onset: 3 04-10-2023 Episodic Nonspecific chest pain (8 sources) Chest pain, unspecified; Translations: [Chest pain] Onset: 3 Episodic Comment on above: CHEST PAIN Other aftercare (7 sources) Drug therapy finding; Translations: [Long-term (current) use of other medications] Episodic Other aftercare (3 sources) Taking high risk medication; Translations: [Other terminal gauger (current) drug therapy] Onset: 3 04-16-2023 Episodic Other and unspecified benign neoplasm (20 sources) Melanocytic nevus; Translations: [Benign neoplasm of skin, site unspecified] Onset: 3 04-10-2023 Episodic Other connective tissue disease (3 sources) Hand pain; Translations: [Pain in limb] Episodic Other connective tissue disease (1 source) Disorder of muscle; Translations: [Other specified disorders of muscle] Onset: 4 Episodic Other connective tissue disease (2 sources) Pelvic floor dysfunction 2023 Episodic Other diseases of bladder and urethra (1 source) Detrusor overactivity; Translations: [Overactive bladder] Onset: 4 Chronic Other diseases of bladder and urethra (2 sources) Overactive bladder 2023 Chronic Other female genital disorders (1 source) Postcoital bleeding; Translations: [PCB (post coital bleeding)] Chronic Other female genital disorders (1 source) Polyp of cervix; Translations: [Cervical polyp] Episodic Other female genital disorders (2 sources) History of recurrent vaginal discharge; Translations: [History of vaginal discharge] Episodic Other gastrointestinal disorders (20 sources) Pelvic mass; Translations: [Abdominal or pelvic swelling, mass, or lump, unspecified site] Onset: 3 04-10-2023 Episodic Other infections; including parasitic (18 sources) Late effects of other and unspecified infectious and parasitic diseases; 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 Other infections; including parasitic (20 sources) Personal history of other infectious and parasitic diseases; Translations: [Personal history of COVID-19] Onset: 3 04-10-2023 Episodic Other lower respiratory disease (20 sources) Habitual snoring; Translations: [Other respiratory abnormalities] Onset: 3 04-10-2023 Episodic Other lower respiratory disease (1 source) Shortness of breath; Translations: [SHORTNESS OF BREATH] Onset: Episodic Other lower respiratory disease (3 sources) Chronic cough; Translations: [Chronic cough] Onset: 3 04-10-2023 Episodic Other lower respiratory disease (2 sources) Cough; 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] Onset: 3 04-13-2023 Episodic Other nervous system disorders (20 sources) Carpal tunnel syndrome; Translations: [Carpal tunnel syndrome] Chronic Other nervous system disorders (3 sources) Bilateral carpal tunnel syndrome; Translations: [Carpal tunnel syndrome, bilateral upper limbs] Onset: 3 04-10-2023 Chronic Other nervous system disorders (1 source) Chronic pain; Translations: [Other chronic pain] Chronic Other nervous system disorders (20 sources) Postoperative pain ; Translations: [Other acute postoperative pain] Onset: 3 04-10-2023 Episodic Other nervous system disorders (2 sources) Intolerant of heat 2023 Episodic Other non-traumatic joint disorders (1 source) Ankle joint pain; Translations: [Pain in right ankle and joints of right foot] Episodic Other nutritional; endocrine; and metabolic disorders (20 sources) Body mass index 30+ - obesity; Translations: [Obesity, unspecified] Onset: 3 04-10-2023 Chronic Other nutritional; endocrine; and metabolic disorders (11 sources) Obesity; Translations: [Obesity, unspecified] Onset: 3 04-13-2023 Chronic Other nutritional; endocrine; and metabolic disorders (1 source) Obesity, unspecified; Translations: [Obesity, unspecified] Onset: 3 Chronic Other nutritional; endocrine; and metabolic disorders (1 source) Body mass index (BMI) 35.0-35.9, adult; Translations: [Body mass index [BMI] 35.0-35.9, adult] Onset: 3 Chronic Other nutritional; endocrine; and metabolic disorders (2 sources) Body mass index (BMI) 36.0-36.9, adult; Translations: [Body mass index (BMI) 36.0-36.9, adult] Onset: 4 Chronic Other nutritional; endocrine; and metabolic disorders (5 sources) Weight gain; Translations: [Abnormal weight gain] Episodic Other screening for suspected conditions (not mental disorders or infectious disease) (20 sources) Cancer cervix - screening done; Translations: [Patient encounter status] Onset: 3 04-10-2023 Episodic Comment on above: oguard 07/2019-neg atve; Other upper respiratory disease (20 sources) Rhinitis; Translations: [Chronic rhinitis] Onset: 3 04-10-2023 Chronic Other upper respiratory infections (2 sources) Acute upper respiratory infection; Translations: [Acute upper respiratory infection] Episodic Otitis media and related conditions (2 sources) Otitis media; Translations: [Left otitis media] Episodic Poisoning by other medications and drugs (1 source) Poisoning by drug AND/OR medicinal substance; Translations: [Poisoning by unspecified drugs, medicaments and biological substances, accidental (unintentional), initial encounter] Onset: 3 Episodic Residual codes; unclassified (3 sources) Finding related to sleep; Translations: [Sleep apnea, unspecified] Onset: 3 04-10-2023 Chronic Residual codes; unclassified (1 source) Acquired absence of other specified parts of digestive tract; Translations: [Acquired absence of other specified parts of digestive tract] Onset: 3 Episodic Residual codes; unclassified (2 sources) Other specified health status; Translations: [Other specified health status] Onset: 4 Episodic Residual codes; unclassified (1 source) Past history of procedure; Translations: [Other specified postprocedural states] Onset: 4 Episodic Residual codes; unclassified (1 source) Other general symptoms and signs; Translations: [Other general symptoms and signs] Onset: 4 Episodic Screening and history of mental health and substance abuse codes (1 source) Personal history of nicotine dependence; Translations: [Personal history of nicotine dependence] Onset: 3 Episodic Unclassified (15 sources) Patient encounter status; Translations: [Encounter for screening mammogram for breast cancer] 2023 Unclassified (1 source) CONTACT W/AND (SUSP) EXPOS COVID-19; Translations: [CONTACT W/AND (SUSP) EXPOS COVID-19] Onset: 3 Unclassified (1 source) [facility] 3/9 08-24-2022 Comment on above: [facility] 3/ Unclassified (2 sources) AND-AFIB 08-25-2022 Comment on above: AND-AFIB Unclassified (1 source) Symptomatic bradycardia 08-22-2022 Unclassified (1 source) Frequent PVCs 08-22-2022 Unclassified (1 source) Contact with and (suspected) exposure to COVID-19; Translations: [Contact with and (suspected) exposure to COVID-19] Onset: 3 Unclassified (3 sources) Unspecified lump in the right breast, overlapping quadrants; Translations: [Unspecified lump in the right breast, overlapping quadrants] Onset: 2 Past or Other Problems Problem Classification Problem Date Documented Da te Episodic/Chronic Cardiac dysrhythmias (20 sources) Palpitations; Translations: [Palpitations] Onset: 04-10-2023 08-22-2022 Episodic Deficiency and other anemia (3 sources) Iron deficiency anemia; Translations: [Iron deficiency anemia, unspecified] Onset: 06-02-2015 04-10-2023 Episodic Other aftercare (2 sources) Other detention (current) drug therapy; Translations: [Other detention (current) drug therapy] Onset: 04-13-2023 Episodic Other female genital disorders (1 source) Vaginal discharge; Translations: [Vaginal discharge] Episodic Unclassified (1 source) Cancer cervix screening status; Translations: [Cervical cancer screening] Unclassified (12 sources) Mammography normal; Translations: [History of Mammogram normal] Comment on above: 05/2020-cat /04/08 019-CAT 1; Unclassified (20 sources) Never smoked [...] Test Name Value Interpretation Reference Range Facility CBC w/ Auto Diffon 4 Basophils/100 WBC (Bld) 0.6 % Normal 0.0-2.0 [facility] Comment on above: Performed By: #### 1 [id number], 7905415, 3139199, 5632166, 55817310, [id number] ####[facility] [address] [place] [address] Basophils/Leukocyte s Auto (Bld) [Pure # fraction] 0.0 E9/L Normal 0.0-0.2 [facility] Comment on above: Performed By: #### 1 [id number], 5320457, 2967244, 4904059, 14224630, [id number] ####[facility] [address] [place] [address] Eosinophils (Bld) [#/Vol] 0.3 E9/L Normal 0.0-0.5 [facility] Comment on above: Performed By: #### 1 7797447, 9163567, 5763561, 9494085, 77203229, [id number] ####[facility] [address] [place] [address] Eosinophils/100 WBC (Bld) 3.3 % Normal 0.0-8.0 [facility] Comment on above: Performed By: #### 1 7024391, 1892967, 1170910, 5138546, 14971395, [id number] ####[facility] [address] [place] [address] Erythrocyte distribution width (RBC) [Ratio] 13.9 % Normal 10.9-14.2 [facility] Comment on above: Performed By: #### 1 1616869, 3112919, 9287117, 9701933, 69067908, 525119895 ####[address] [place] [address] Hematocrit (Bld) [Volume fraction] 40.7 % Normal 34.0-46.0 [facility] Comment on above: Performed By: #### 1 5470106, 4721772, 9903478, 8587574, 12570683, [id number] ####[address] [address] Hemoglobin (Bld) [Mass/Vol] 13.5 g/dL Normal 12.0-16.0 [facility] Comment on above: Performed By: #### 1 8841899, 7726600, 1909544, 4629392, 42370704, 797958950 ####[address] [address] Lymphocytes (Bld) [#/Vol] 1.9 E9/L Normal 1.0-4.0 [facility] Comment on above: Performed By: #### 1 7527484, 4333540, 1868986, 2513415, 47321139, [id number] ####[address] [address] Lymphocytes/100 WBC (Bld) 22.6 % Normal 14.0-50.0 [facility] Comment on above: Performed By: #### 1 2430603, 3901126, 3335335, 0462670, 46656751, 068024804 ####[address] [address] MCH (RBC) [Entitic mass] 30.8 pg Normal 27.0-34.0 [facility] Comment on above: Performed By: #### 1 1343714, 8852576, 9227390, 4118622, 35084703, 191615769 ####[address] [address] MCHC (RBC) [Mass/Vol] 33.3 g/dL Normal 31.4-36.0 [facility] Comment on above: Performed By: #### 1 1607556, 5572348, 8890950, 8593012, 19250199, 492602326 ####[facility] [address] [place] [address] MCV (RBC) [Entitic vol] 92.7 fL Normal 80.0-100.0 [facility] Comment on above: Performed By: #### 1 9437993, 6882358, 8749833, 0229035, 89607925, 810432632 ####[address] [place] [address] Monocytes (Bld) [#/Vol] 0.7 E9/L Normal 0.2-1.0 [facility] Comment on above: Performed By: #### 1 5670805, 7353198, 3498408, 0927536, 66867424, 147009145 ####[address] [address] Neutrophils (Bld) [#/Vol] 5.6 E9/L Normal 2.0-7.5 [facility] Comment on above: Performed By: #### 1 3407613, 4651206, 6218229, 7346309, 22962471, 054178384 ####[address] [address] Neutrophils/100 WBC (Bld) 65.6 % Normal 36.0-75.0 [facility] Comment on above: Performed By: #### 1 7543285, 1629074, 9965836, 2415449, 92622235, 410166817 ####[address] [place] [address] Platelet 275.0 E9/L Normal 150.0-500.0 [facility] Comment on above: Performed By: #### 1 4020179, 7067793, 0099814, 8346148, 79966063, 359816639 ####[facility] [address] [place] [address] Platelet mean volume (Bld) [Entitic vol] 9.0 fL Normal 6.4-10.8 [facility] Comment on above: Performed By: #### 1 0293857, 6524464, 5244043, 0073487, 59745275, 383825127 ####[facility] [address] [place] [address] RBC (Bld) [#/Vol] 4.4 E12/L Normal 4.3-5.9 [facility] Comment on above: Performed By: #### 1 3262430, 2059153, 7646707, 5769353, 47610943, 329719567 ####[facility] [address] [place] [address] WBC corrected for nucl RBC Auto (Bld) [#/Vol] 8.5 E9/L Normal 4.0-11.0 [facility] Comment on above: Performed By: #### 1 1081950, 2524226, 4545608, 6210921, 47174229, 769625693 ####[facility] [address] [place] [address] CHEMISTRYOrdered By: SYSTEM SYSTEM on 10-12-2023 Albumin [Mass/Vol] 4.1 g/dL Normal 3.3 - 5.0 gm/dL [facility] Albumin/Globulin [Mass ratio] 2.0 {ratio} Normal 1.1 - 2.2 [facility] ALP [Catalytic activity/Vol] 75 [iU]/d Normal 21 - 98 Int._Unit/L [facility] ALT No additional P-5'-P [Catalytic activity/Vol] 32 [iU]/d Normal 6 - 46 Int._Unit/L [facility] Anion gap [Moles/Vol] 10 mmol/L Normal 6 - 16 mEq/L [facility] AST [Catalytic activity/Vol] 22 [iU]/d Normal 5 - 43 Int._Unit/L [facility] Bilirubin [Mass/Vol] 0.4 mg/dL Normal 0.0 - 1.1 mg/dL [facility] Calcium [Mass/Vol] 9.0 mg/dL Normal 8.9 - 11. 1 mg/dL [facility] Chloride [Moles/Vol] 104 mmol/L Normal 101 - 111 mmol/L [facility] Cholesterol [Mass/Vol] 209 mg/dL High 120 - 200 mg/dL [facility] Cholesterol in HDL [Mass/Vol] 54 mg/dL Invalid Interpretation Code [facility] Comment on above: Result Comment: '>= 60 LOW RISK' '<= 40 HIGH RISK' Cholesterol in LDL [Mass/Vol] 132 mg/dL High <=129mg/dL [facility] Cholesterol in VLDL [Mass/Vol] 24 mg/dL Normal 7 - 40 mg/dL [facility] CO2 [Moles/Vol] 29 mmol/L Normal 21 - 31 mmol/L [facility] Creatinine [Mass/Vol] 0.8 mg/dL Normal 0.5 - 1.3 mg/dL [facility] eGFR 87 mL/min/1.73 m2 Normal >=59mL/min / 1.73 m2 [facility] Globulin (S) [Mass/Vol] 2.0 g/dL Normal 1.4 - 4.0 gm/dL [facility] Glucose [Mass/Vol] 125 mg/dL Normal 55 - 199 mg/dL [facility] Potassium [Moles/Vol] 4.6 mmol/L Normal 3.5 - 5.3 mmol/L [facility] Protein [Mass/Vol] 6.1 g/dL Normal 6.0 - 7.8 gm/dL [facility] Sodium [Moles/Vol] 138 mmol/L Normal 135 - 145 mmol/L [facility] Triglyceride [Mass/Vol] 118 mg/dL Normal <=149mg/dL [facility] TSH Qn 1.73 m[IU]/L Normal 0.34 - 5.60 mcIU/mL [facility] Urea nitrogen [Mass/Vol] 22 mg/dL High 5 - 21 mg/dL [facility] Urea nitrogen/Creatinine [Mass ratio] 28 mg/mg High 10 - 20 [facility] CHEMISTRYOrdered By: Patricia Bruno on 10-12-2023 HbA1c (Bld) [Mass fraction] 5.8 % Normal <=5.9% [facility] ChemAutoSS CMPon 10-12-2023 Albumin [Mass/Vol] 4.1 g/dL Normal 3.3-5.0 [facility] Comment on above: Performed By: #### 1 4047985, 3339002, 9002196, 7723968, 88460988, 040668459 ####[address] [place] [address] Albumin/Globulin (S) [Mass conc ratio] 2.0 Normal 1.1-2.2 [facility] Comment on above: Performed By: #### 1 5286247, 8058242, 2216541, 7545552, 04056762, [id number] ####[address] [place] [address] ALP [Catalytic activity/Vol] 75 Int._Unit/L Normal 21-98 [facility] Comment on above: Performed By: #### 1 2979927, 4247862, 4809746, 0678644, 31756718, [id number] ####[address] [address] ALT No additional P-5'-P [Catalytic activity/Vol] 32 Int._Unit/L Normal 6-46 [facility] [facility] Comment on above: Performed By: #### 1 [id number], 9153166, 4956177, 4551043, 15017341, [id number] ####[address] [place] [address] Anion gap [Moles/Vol] 10 mmol/L Normal 6-16 [facility] Comment on above: Performed By: #### 1 [id number], 0072235, 4718935, 6598082, 77224892, [id number] ####[address] [place] [address] AST [Catalytic activity/Vol] 22 Int._Unit/L Normal 5-43 [facility] Comment on above: Performed By: #### 1 [id number], 3104613, 5121017, 1318962, 35183885, 252373269 ####[address] [place] [address] Bilirubin [Mass/Vol] 0.4 mg/dL Normal 0.0-1.1 [facility] Comment on above: Performed By: #### 1 0457358, 4989975, 4926365, 0327208, 56222361, 043179004 ####[facility] [address] [place] [address] Calcium [Mass/Vol] 9.0 mg/dL Normal 8.9-11.1 [facility] Comment on above: Performed By: #### 1 8913774, 6906638, 1622004, 0250576, 96993418, 995836027 ####[facility] [address] [place] [address] Chloride [Moles/Vol] 104 mmol/L Normal 101-111 [facility] Comment on above: Performed By: #### 1 1532062, 1796115, 4053262, 5621777, 05908670, 295690500 ####[facility] [address] [place] [address] CO2 [Moles/Vol] 29 mmol/L Normal 21-31 [facility] Comment on above: Performed By: #### 1 1487107, 7442127, 9152347, 2438929, 78354842, [id number] ####[facility] [address] [place] [address] Creatinine [Mass/Vol] 0.8 mg/dL Normal 0.5-1.3 [facility] Comment on above: Performed By: #### 1 8377721, 4362890, 7121992, 9763677, 67740933, 716553492 ####[facility] [address] [place] [address] Globulin (S) [Mass/Vol] 2.0 g/dL Normal 1.4-4.0 [facility] Comment on above: Performed By: #### 1 2652483, 3983919, 2897863, 9873856, 17558906, 605924759 ####[facility] [address] [place] [address] Glucose [Mass/Vol] 125 mg/dL Normal 55-199 [facility] Comment on above: Performed By: #### 1 7439468, 6860136, 4459184, 4744866, 58471107, 661827831 ####[facility] [address] [place] [address] Potassium [Moles/Vol] 4.6 mmol/L Normal 3.5-5.3 [facility] Comment on above: Performed By: #### 1 0793467, 9330874, 8082208, 5220363, 93701366, 928213280 ####[facility] [address] [place] [address] Protein [Mass/Vol] 6.1 g/dL Normal 6.0-7.8 [facility] Comment on above: Performed By: #### 1 1884956, 7545309, 4676637, 3611877, 60162162, 670949138 ####[facility] [address] [place] [address] Sodium [Moles/Vol] 138 mmol/L Normal 135-145 [facility] Comment on above: Performed By: #### 1 2257482, 5346843, 8575797, 0299313, 67983468, 585846582 ####[facility] [address] [place] [address] Urea nitrogen [Mass/Vol] 22 mg/dL High 5-21 [facility] Comment on above: Performed By: #### 1 7012474, 1463099, 6440875, 1654200, 44443193, 279057073 ####[facility] [address] [place] [address] Urea nitrogen/Creatinine [Mass ratio] 28 No Units High 10-20 [facility] Comment on above: Performed By: #### 1 1431022, 0741077, 9299411, 2035732, 12600890, 839443406 ####[facility] [address] [place] [address] Consent for Treatmenton 09-17 Consent for Treatment [id number] Normal [facility] HEMATOLOGYOrdered By: SYSTEM SYSTEM on 10-12-2023 Basophils/100 WBC (Bld) 0.6 % Normal 0.0 - 2.0 % Remisol Heme Basophils/Leukocyte s Auto (Bld) [Pure # fraction] 0.0 E9/L Normal 0.0 - 0.2 E9/L [facility]e Eosinophils (Bld) [#/Vol] 0.3 E9/L Normal 0.0 - 0.5 E9/L [facility]e Eosinophils/100 WBC (Bld) 3.3 % Normal 0.0 - 8.0 % Remisol Heme Erythrocyte distribution width (RBC) [Ratio] 13.9 % Normal 10.9 - 14.2 % Rem[facility]e Hematocrit (Bld) [Volume fraction] 40.7 % Normal 34.0 - 46.0 % Rem[facility]e Hemoglobin (Bld) [Mass/Vol] 13.5 g/dL Normal 12.0 - 16.0 gm/dL [facility] Lymphocytes (Bld) [#/Vol] 1.9 E9/L Normal 1.0 - 4.0 E9/L [facility]e Lymphocytes/100 WBC (Bld) 22.6 % Normal 14.0 - 50.0 % Remisol Heme MCH (RBC) [Entitic mass] 30.8 pg Normal 27.0 - 34.0 pg Remisol Heme MCHC (RBC) [Mass/Vol] 33.3 g/dL Normal 31.4 - 36.0 gm/dL Rem[facility] Heme MCV (RBC) [Entitic vol] 92.7 fL Normal 80.0 - 100.0 fL [facility]e Monocytes (Bld) [#/Vol] 0.7 E9/L Normal 0.2 - 1.0 E9/L [facility]e Monocytes/100 WBC (Bld) 7.9 % Normal 4.0 - 14.0 % [facility]e Neutrophils (Bld) [#/Vol] 5.6 E9/L Normal 2.0 - 7.5 E9/L [facility] Neutrophils/100 WBC (Bld) 65.6 % Normal 36.0 - 75.0 % [facility] Platelet 275.0 E9/L Normal 150.0 - 500.0 E9/L [facility] Platelet mean volume (Bld) [Entitic vol] 9.0 fL Normal 6.4 - 10.8 fL [facility]e RBC (Bld) [#/Vol] 4.4 E12/L Normal 4.3 - 5.9 E12/L [facility] WBC corrected for nucl RBC Auto (Bld) [#/Vol] 8.5 E9/L Normal 4.0 - 11.0 E9/L Rem[facility] Heme AlrF2xhz 10-12-2023 HbA1c (Bld) [Mass fraction] 5.8 % Normal <=5.9 [facility] Comment on above: Performed By: #### 1 6219337, 5826521, 9976240, 7107089, 21604222, 718920469 ####[facility] [address] [address] Lipid Panelon 10-12-2023 Cholesterol [Mass/Vol] 209 mg/dL High 120-200 [facility] Comment on above: Performed By: #### 1 2057450, 3388596, 5369747, 1929648, 22578175, 890271682 ####[facility] [address] [facility] [place] [address] Cholesterol in HDL [Mass/Vol] 54 mg/dL Invalid Interpretation Code [facility] Comment on above: Result Comment: '>= 60 LOW RISK' '<= 40 HIGH RISK' Performed By: #### 1 0819865, 9533006, 5194749, 3573196, 00862534, 821680196 ####[facility] [address] [place] [address] Cholesterol in LDL [Mass/Vol] 132 mg/dL High <=129 [facility] Comment on above: Performed By: #### 1 6757931, 1592776, 2986630, 3439475, 80368444, 956756954 ####[facility] [address] [place] [address] Cholesterol in VLDL [Mass/Vol] 24 mg/dL Normal 7-40 [facility] Comment on above: Performed By: #### 1 4390087, 6969564, 9555199, 8995682, 17991794, 909799802 ####[facility] [address] [place] [address] Triglyceride [Mass/Vol] 118 mg/dL Normal <=149 [facility] Comment on above: Performed By: #### 1 9328716, 9174158, 9685821, 7027954, 59887834, 176426517 ####[facility] [address] [place] [address] TSH With T4fr Reflexon 10-11 TSH Qn 1.73 m[IU]/L Normal 0.34-5.60 [facility] Comment on above: Performed By: #### 1 4937001, 8121290, 2761223, 5434437, 26176385, 102037804 ####[facility] [address] [place] [address] eGFRon 10-12-2023 eGFR 87 mL/min/1.73 m2 Normal >=59 [facility] Comment on above: Order Comment: Order added by Discern Expert. Performed By: #### 1 9935322, 5715393, 6343757, 0848132, 03608279, 195890560 ####[facility] [address] [place] [address] Ambulatory Visit Summaryon 0 10-03-2023 Ambulatory Visit Summary RASHEEDA HANNA :1970 Visit Date:2023 Ambulatory Visit Instructions Your Diagnosis Establishing care with new doctor, encounter for Sick sinus syndrome Overactive bladder GERD (gastroesophageal reflux disease) Mild recurrent major depression Heat intolerance Pelvic floor dysfunction Screening mammogram, encounter for History of ankle surgery Your Care Team Attending Physician - Micah Diaz DO Primary Care Physician - Kayla Dent DO This Is Your Medications List Contact prescribing physician if questions or concerns aspirin (aspirin 81 mg Oral EC Tab) flecainide (flecainide 100 mg Tab) meloxicam (meloxicam 15 mg Tab) metoprolol (metoprolol 25 mg ER Tab) omeprazole (omeprazole 40 mg Cap-DR) sertraline (sertraline 50 mg Tab) solifenacin (Vesicare 5 mg Tab) [Image Removed: STOP]Stop taking these medications solifenacin (solifenacin 5 mg Tab) Procedures Performed Catheterization of left heart (07/14/2022), Ankle fusion, Carpal tunnel, section, Cholecystectomy, Tubal ligation, [place] tooth. Discharge Vitals Heart Rate (Peripheral) 64 Blood Pressure 116/60 Height 156 cm Height 61 in Weight 90.9 kg Weight 199.98 lb BMI 37.35 What to do next You Need to Schedule the Following Appointments Follow Up with Emily DIMAS, JAVID Young, PED When: Within 3 months Comments: 20 min slot To go instructions: Follow up with cardiology as planned Have labs drawn soon - I will call with the results I have placed a referral for pelvic floor therapy - the hospital will call in the next week or two to schedule When you see providers outside of [facility], please request that they send office visit notes every time you're seen there - this helps us take better care of you [place] - for weight loss f/u 3-6 months Where: [address] [facility] [address] [place] [address] [phone] You Need to Complete the Following CBC w/ Auto Diff, Blood, Routine collect, 10/02/23, Order for future visit, Lab Collect, Leukocytosis, Print Label By Order Location Comprehensive Metabolic Panel, Blood, Routine collect, 10/02/23, Order for future visit, Lab Collect, Hypertension, Print Label By Order Location HgbA1c, Blood, Routine collect, 10/02/23, Order for future visit, Lab Collect, Screening for diabetes mellitus, Print Label By Order Location Lipid Panel, Blood, Routine collect, 10/02/23, Order for future visit, Lab Collect, Screening for hyperlipidemia, Print Label By Order Location TSH With T4fr Reflex, Blood, Routine collect, 10/02/23, Order for future visit, Lab Collect, Heat intolerance, Print Label By Order Location [place] Mamm Screen w/CAD if perf and 3D Ismael, 10/02/23, Routine, Order for Future Visit, Transport Mode: Ambulatory, Reason: Screening, No, Screening mammogram, encounter for, pp_set_radiology_subspecial , [facility] Medications What How Much When Instructions Unchanged aspirin (aspirin 81 mg Oral EC Tab) 1 Tablets By Mouth Every day Contact prescribing physician if questions or concerns Unchanged flecainide (flecainide 100 mg Tab) Contact prescribing physician if questions or concerns Unchanged meloxicam (meloxicam 15 mg Tab) 1 Tablets Contact prescribing physician if questions or concerns Unchanged metoprolol (metoprolol 25 mg ER Tab) 1 Tablets By Mouth Every day Contact prescribing physician if questions or concerns Unchanged omeprazole (omeprazole 40 mg Cap-DR) 1 Capsules By Mouth Every day Contact prescribing physician if questions or concerns Unchanged sertraline (sertraline 50 mg Tab) 1 Tablets By Mouth Every day Contact prescribing physician if questions or concerns Unchanged solifenacin (Vesicare 5 mg Tab) 1 Tablets By Mouth Every day Contact prescribing physician if questions or concerns What When Comments Stop Taking solifenacin (solifenacin 5 mg Tab) Allergies shellfish (Hives) Problems Ongoing - Any problem that you are currently receiving treatment for. Establishing care with new doctor, encounter for GERD (gastroesophageal reflux disease) Heat intolerance Mild recurrent major depression Overactive bladder Pelvic floor dysfunction Sick sinus syndrome Patient Survey You may receive a survey via text or e-mail asking about your office visit. Please share your experience with us by completing your survey. We appreciate your feedback and thank you for choosing us for your care. Education Materials Major Depressive Disorder, Adult Major depressive disorder is a mental health condition. This disorder affects feelings. It can also affect the body. Symptoms of this condition last most of the day, almost every day, for 2 weeks. This disorder can affect: ? Relationships. ? Daily activities, such as work and school. ? Activities that you normally like to do. What are the causes? The cause of this condition is not known. The disorder is likely caused by a mix (more content not included)... Normal [facility] Family Medicine Office/Clini c Noteon 10-03-2023 Family Medicine Office/Clinic Note Chief Complaint EST CARE HPI Staff Establish Care: History: Last provider:Kayla Dent Any recent labs:NO Health Maintenance UTD: Colonoscopy: Due for cologuard PSA: N/A Mammogram: Due Pelvic/Pap: no Acute: Current issues/complaints: Discuss getting off Zoloft, Would like a Dr who will take care of all her issues. Cardio. Dr Federico Wing in [place] . History of Present Illness 52 Years old Female here for ESTABLISH CARE This patient is NEW TO ME Previous PCP was Kayla Dent DO Last appt with previous PCP was six weeks ago Social: The patient is ; [place] since November 05, 2021 The patient is currently working; [employer] for 1 years The patient has 3 child(jose) and 2 step children 3 grandchild(jose) no great grandchild(jose) Screening: Colon Cancer screening: bryan five years ago; this patient does NOT have family history of colon cancer Breast cancer screening: Birads 18 Jun 2022; this patient does NOT have a family history of breast cancer Pap smear: 2019? (Dr. Kayla Dent) Labs: September 2022 List of Providers: Cardiology - Dr. Wing - doesn't follow with [facility] [employer] HPI staff / Chief Complaint confirmed with the patient Interval history: has been on a medication for OAB for approx ten years urologist recommended sling previously sss diagnosed in 2022 on flecanide and toprol prescribed by Dr. Wing tolerating well on omeprazole for GERD for approx on sertraline for approx 5 years she believes it's effective started on this during menopause and it helped with mood swings patient reports being intolerant to heat for years she doesn't sweat she's never talked to anyone about this PHQ Score Initial Depression Screen Score: 1 SCORE LABS Cr/eGFR: eGFR: >60 (09/23/22 22:35:00) Creatinine: 0.8 mg/dL (09/23/22 22:35:00) PHYSICAL EXAM Constitutional: Vital signs reviewed; RASHEEDA HANNA is well nourished, no acute distress - obese Head: Atraumatic, normocephalic Eye: EOMI, normal conjunctiva ENT: Moist oral mucosa, external inspection of ears and nose is unremarkable Neck: Trachea is midline, no tenderness Lungs: Clear to auscultation, non-labored respiration - expansion is symmetric Heart: Normal rate and rhythm, normal peripheral perfusion Lymph: Deferred Abd: Deferred : Deferred MSK: Normal gait and station - modest swelling at the right ankle Skin: Warm, dry Neurologic: Awake, alert and oriented, speech is normal, no focal deficits, CN II-XII grossly intact Psychiatric: Cooperative, appropriate mood and affect, judgement is appropriate Review of Systems PHQ Score Initial Depression Screen Score: 1 SCORE Physical Exam Vitals & Measurements HR: 64(Peripheral) BP: 116/60 SpO2: 96% HT: 61 in HT: 156 cm WT: 90.9 kg WT: 199.98 lb BMI: 37.35 Assessment/Plan 1. Sick sinus syndrome (I49.5: Sick sinus syndrome) Chronic Stable Conversation about management today May eventually lead to permanent pacemaker Patient aware f/u PRN 2. Overactive bladder (N32.81: Overactive bladder) Chronic Sub-optimal control Discussed options I wonder if she may benefit from pelvic floor therapy Discussed rationale for weaning down or off medications as they have been minimally beneficial See instructions below for more specifics for today's plan between today and the patient's next appt: 3. GERD (gastroesophageal reflux disease) (K21.9: Gastro-esophageal reflux disease without esophagitis) Chronic Stable Continue omeprazole 4. Mild recurrent major depression (F33.0: Major depressive disorder, recurrent, mild) Chronic Stable Possible need for improvement Has good support I wonder if this plays a role in her weight Feels that sertraline is working Follow-up 3 to 6 months 5. Heat intolerance (R68.89: Other general symptoms and signs) Chronic Stable Unclear etiology Symptoms only occur when she is exposed to hot weather Check labs Ordered: TSH With T4fr Reflex 6. Pelvic floor dysfunction (M62.89: Other specified disorders of muscle) Chronic Suboptimal control Referred for pelvic floor therapy Ordered: [facility] Evaluate Patient, Develop a Plan of Care, & Implement Plan 7. Screening mammogram, encounter for (Z12.31: Encounter for screening mammogram for malignant neoplasm of breast) Ordered: [place] Mamm Screen w/CAD if perf and 3D Ismael History of ankle surgery (Z98.890: Other specified postprocedural states) Orders: CBC w/ Auto Diff Comprehensive Metabolic Panel HgbA1c Lipid Panel Total time spent TODAY preparing the chart, face to face with the patient and family and time spent documenting, reviewing, and ordering tests was MORE than 50 mins Patient was counseled on the above diagnosis and treatment, all questions were answered and patient agrees to adhere to the plan above. Risk and benefits of appropriate procedures and medications were reviewed as (more content not included)... Normal [facility] Comment on above: Result Comment: Elec tronically Signed By: Micah Diaz DO.br\Date and Time Signed: 10/03/23 19:51 EDT Patient Educationon 10-02-19 Patient Education Mental and Behaviora Health Major Depressive Disorder, Adult Major depressive disorder is a mental health condition. This disorder affects feelings. It can also affect the body. Symptoms of this condition last most of the day, almost every day, for 2 weeks. This disorder can affect: ? Relationships. ? Daily activities, such as work and school. ? Activities that you normally like to do. What are the causes? The cause of this condition is not known. The disorder is likely caused by a mix of things, including: ? Your personality, such as being a shy person. ? Your behavior, or how you act toward others. ? Your thoughts and feelings. ? Too much alcohol or drugs. ? How you react to stress. ? Health and mental problems that you have had for a long time. ? Things that hurt you in the past (trauma). ? Big changes in your life, such as divorce. What increases the risk? The following factors may make you more likely to develop this condition: ? Having family members with depression. ? Being a woman. ? Problems in the family. ? Low levels of some brain chemicals. ? Things that caused you pain as a child, especially if you lost a parent or were abused. ? A lot of stress in your life, such as from: ? Living without basic needs of life, such as food and correction. ? Being treated poorly because of race, sex, or samaritan (discrimination). ? Health and mental problems that you have had for a long time. What are the signs or symptoms? The main symptoms of this condition are: ? Being sad all the time. ? Being grouchy all the time. ? Loss of interest in things and activities. Other symptoms include: ? Sleeping too much or too little. ? Eating too much or too little. ? Gaining or losing weight, without knowing why. ? Feeling tired or having low energy. ? Being restless and weak. ? Feeling hopeless, worthless, or guilty. ? Trouble thinking clearly or making decisions. ? Thoughts of hurting yourself or others, or thoughts of ending your life. ? Spending a lot of time alone. ? Inability to complete common tasks of daily life. If you have very bad MDD, you may: ? Believe things that are not true. ? Hear, see, taste, or feel things that are not there. ? Have mild depression that lasts for at least 2 years. ? Feel very sad and hopeless. ? Have trouble speaking or moving. How is this treated? This condition may be treated with: ? Talk therapy. This teaches you to know bad thoughts, feelings, and actions and how to change them. ? This can also help you to communicate with others. ? This can be done with members of your family. ? Medicines. These can be used to treat worry (anxiety), depression, or low levels of chemicals in the brain. ? Lifestyle changes. You may need to: ? Limit alcohol use. ? Limit drug use. ? Get regular exercise. ? Get plenty of sleep. ? Make healthy eating choices. ? Spend more time outdoors. ? Brain stimulation. This treatment excites the brain. This is done when symptoms are very bad or have not gotten better with other treatments. Follow these instructions at home: Activity ? Get regular exercise as told. ? Spend time outdoors as told. ? Make time to do the things you enjoy. ? Find ways to deal with stress. Try to: ? Meditate. ? Do deep breathing. ? Spend time in nature. ? Keep a journal. ? Return to your normal activities as told by your doctor. Ask your doctor what activities are safe for you. Alcohol and drug use ? If you drink alcohol: ? Limit how much you use to: ? 0?1 drink a day for women. ? 0?2 drinks a day for men. ? Be aware of how much alcohol is in your drink. In the [place] one drink equals one 12 oz bottle of beer (355 mL), one 5 oz glass of wine (148 mL), or one 1? oz glass of hard liquor (44 mL). ? Talk to your doctor about: ? Alcohol use. Alcohol can affect some medicines. ? Any drug use. General instructions ? Take beyc-zwh-sttkkzj and prescription medicines and herbal preparations only as told by your doctor. ? Eat a healthy diet. ? Get a lot of sleep. ? Think about joining a support group. Your doctor may be able to suggest one. ? Keep all follow-up visits as told by your doctor. This is important. Where to find more information: ? National [place] on Mental Illness: www.nhan.org ? [place] National [place] of Mental Health: www.nimh.nih.gov ? [place] [employer]: www.psychiatry.org/patients -families/ Contact a doctor if: ? Your symptoms get worse. ? You get new symptoms. Get help right away if: ? You hurt yourself. ? You have serious thoughts about hurting yourself or others. ? You see, hear, taste, smell, or feel things that are not there. If you ever feel like you may hurt yourself or others, or have thoughts about taking your own life, get help right away. Go to your nearest emergency department or: ? Call your local emergency services (911 i (more content not included)... Normal [facility] Physician Orderon 06-29-2023 Physician Order [id number]#1.00TIFF [facility] PT - Orderson 04-27-2023 PT - Orders [id number]#1.00TIFF [facility] Consent for Treatmenton Consent for Treatment [id number]#1.00TIFF [facility] PT - Assessmentson PT - Assessments [id number]#1.00TIFF [facility] PT - Consentson 04-26-2023 PT - Consents [id number]#1.00TIFF [facility] PT - Ord[place] 04-26-2023 PT - Orders [id number]#1.00TIFF [facility] Holter monitor studyon 04-18 This is [...] transmissions. Clinical correlation needs to be made [facility] Holter monitor studyOrdered By: Federico Wing on 04-18-2023 [facility] Work Phone: Consent for Treatmenton 03-18 Consent for Treatment [id number]#1.00TIFF Normal [facility] MRI Ankle w/o Contrast Right on [...] REPORT Dictated: 03/30/2023 4:00 pm Brian Nolan MD. Signed (Electronic Signature): 03/30/2023 4:00 pm Signed by: Brian Nolan MD Transcribed by: BENITA Technologist: JENNI Technical Comments None Normal [facility] RAD - MRI Screening Formon 1 RAD - MRI Screening Form [id number]#1.00TIFF Normal [facility] Physician Orderon 03-21-2023 Physician Order [id number]#1.00CD:127 Normal [facility] MRI Cardiac w/wo contrast fo r Morph/Funct and Valve Dzon 10-10-2022 MRI Cardiac w/wo contrast for Morph/Funct and Valve Dz Normal [facility] Work Phone: [phone] MRI CARDIAC RESONANCE MENG GING FOR VELOCITY FLOW MAPPINGon 10-10-2022 MRI CARDIAC RESONANCE IMAGING FOR VELOCITY FLOW MAPPING [facility] CMR Report Name: RASHEEDA HANNA : 1970 Scan Date: 2022-10-10 13:15:00 Electronically signed by NAILA LEACH 15:48:14 GENERAL INFORMATION HEIGHT: 60.00 in (152.40 cm) WEIGHT: 186.00 lbs (84.37 kgs) BSA: 1.81 m^2 BASELINE HR: 0 BPM SCAN LOCATION: [facility] REFERRING PHYSICIAN: FEDERICO WING ATTENDING PHYSICIAN: FEDERICO WING TECHNOLOGIST: GENARO DELONG ACCESSION NUMBER: [id number] CPT CODES: 71596, [ , ]27949 ICD10 CODES: R00.2, [ , ]I49.3 SUMMARY [...] . Normal (more content not included)... Normal [facility] MRI CARDIAC W/WO CONTRAST FOR MORPH/FUNCT AND VALVE [facility] 10-10-2022 MRI CARDIAC W/WO CONTRAST FOR MORPH/FUNCT AND VALVE [facility] CMR Report Name: RASHEEDA HANNA : 1970 Scan Date: 2022-10-10 13:15:00 Electronically signed by NAILA LEACH 15:48:14 GENERAL INFORMATION HEIGHT: 60.00 in (152.40 cm) WEIGHT: 186.00 lbs (84.37 kgs) BSA: 1.81 m^2 BASELINE HR: 0 BPM SCAN LOCATION: [facility] REFERRING PHYSICIAN: FEDERICO WING ATTENDING PHYSICIAN: FEDERICO WING TECHNOLOGIST: GENARO DELONG ACCESSION NUMBER: [id number] CPT CODES: 01866, [ , ]16358 ICD10 CODES: R00.2, [ , ]I49.3 SUMMARY [...] . Normal (more content not included)... Normal [facility] CHEMISTRYOrdered By: SYSTEM SYSTEM on 09-23-2022 Albumin [...] 103 mmol/L Normal 101 - 111 mmol/L [facility] Remisol CO2 [Moles/Vol] 26 mmol/L [...] Normal 0.0 - 2.0 % [facility] HemeAutoSS Basophils/Leukocyte s Auto (Bld) [Pure # [...] High 4.0 - 11.0 E9/L [facility] HemeAutoSS Office Visit (Cardiology)on 09-20-2022 Follow-up visit Diagnoses/Problems [...] alcoholic beverages.; Status:Complete - Retrospective Authorization; Done: [id number] Avoid foods and beverages that contain caffeine.; Status:Complete - Retrospective Authorization; Done: [id number] Eat a normal well-balanced diet.; Status:Complete - [...] or Bone Graft Simulator, Implanted Breast Tissue Counter Supervisor, Glucose Monitor, or Neulasta Device? : No Is the patient or breast feeding? : No What are the patient's signs and symptoms? : Tachycardia Patient Instructions Patient to follow up in 4-[address] Federico Wing MD Patient will INCREASE Flecainide to 100mg twice daily. Patient will need to complete an EKG on and Sunday of this week in [facility]- office will arrange for you. Patient [...] at the time of your visit. I Umesh RN, am scribing for and in the presence of, Dr. Federico Wing MD The provider reviewed the following test(s) and result(s) with the patient: ECG and laboratory tests Chief Complaint Patient here for [facility] discharge follow up. Discharged 08/24. Palpitations, [...] no marcellus (more content not included)... Normal [facility] Tobacco Screening.on 023 Adult depression screening assessment No [facility] Work Phone: Fall risk assessment a) No falls within the last year [facility] Kar DO Work Phone: Tobacco use status CP b) No [place] [address] DO Work Phone: BASIC METABOLIC PANELon 08-16 Anion gap [Moles/Vol] 11 mmol/L Normal 10 - 20 [facility] Comment on above: Performed By: #### T RPHS #### [address] [id number] Calcium [Mass/Vol] 8.9 mg/dL Normal 8.6 - 10.3 [facility] Comment on above: Performed By: #### T RPHS #### [address] [id number] Chloride [Moles/Vol] 104 mmol/L Normal 98 - 107 [facility] Comment on above: Performed By: #### T RPHS #### [address] [id number] Creatinine [Mass/Vol] 0.76 mg/dL Normal 0.50 - 1.05 [facility] Comment on above: Performed By: #### T RPHS #### [address] [id number] eGFR FEMALE >90 Normal >90 [facility] Comment on above: Result Comment: CALC ULATIONS OF ESTIMATED GFR ARE PERFORMED USING THE 2020 CKD-EPI STUDY REFIT EQUATION WITHOUT THE RACE VARIABLE FOR THE IDMS-TRACEABLE CREATININE METHODS. https://jasn.asnjournals.org/content//ASN.17268757 88 Performed By: #### T RPHS #### [address] [id number] Glucose [Mass/Vol] 99 mg/dL Normal 74 - 99 [facility] Comment on above: Performed By: #### T RPHS #### [address] [id number] HCO3 (Bld) [Moles/Vol] 26 mmol/L Normal 21 - 32 [facility] Comment on above: Performed By: #### T RP #### [address] [id number] Potassium [Moles/Vol] 3.8 mmol/L Normal 3.5 - 5.3 [facility] Comment on above: Performed By: #### T RP #### [address] [id number] Sodium [Moles/Vol] 137 mmol/L Normal 136 - 145 [facility] Comment on above: Performed By: #### T RP #### [address] [id number] Urea nitrogen [Mass/Vol] 16 mg/dL Normal 6 - 23 [facility] Comment on above: Performed By: #### T RP #### [address] [id number] CBCon 08-25-2022 Erythrocyte distribution width (RBC) [Ratio] 12.6 % Normal 11.5 - 14.5 [facility] Comment on above: Performed By: #### C BC #### [address] [id number] Hematocrit (Bld) [Volume fraction] 38.4 % Normal 36.0 - 46.0 [facility] Comment on above: Performed By: #### C BC #### [address] [id number] Hemoglobin (Bld) [Mass/Vol] 13.1 g/dL Normal 12.0 - 16.0 [facility] Comment on above: Performed By: #### C BC #### [address] [id number] MCHC (RBC) [Mass/Vol] 34.1 g/dL Normal 32.0 - 36.0 [facility] Comment on above: Performed By: #### C BC #### [address] [id number] MCV (RBC) [Entitic vol] 92 fL Normal 80 - 100 [facility] Comment on above: Performed By: #### C BC #### [address] [id number] Platelets (Bld) [#/Vol] 248 10*3/uL Normal 150 - 450 [facility] Comment on above: Performed By: #### C BC #### [address] [id number] RBC 4.18 x10E12/L Normal 4.00 - 5.20 [facility] Comment on above: Performed By: #### C BC #### [address] [id number] WBC (Bld) [#/Vol] 9.6 10*3/uL Normal 4.4 - 11.3 [facility] Comment on above: Performed By: #### C BC #### [address] [id number] Daily Progress Note-Electrop hysiologyon 08-25-2022 Daily Progress Note-Electrophysiol ogy Consult Type: subsequent visit/care Service: Electrophysiology Subjective Data: RASHEEDA HANNA is a 51 year old Female who is Hospital Day # 4. Additional Information: still with c/o palpitations/ chest pain approximately 1 hour prior to receiving dose of flecainide Up out of bed ambulating in room and bianchi Objective Data: Objective Information: T PRBPMAPSpO2 Value36.98152245/709573% Date/Time08/25 12: 12: 12: 12: 12: 12:17 [...] to better control of PVCs. EKG in [place] on Monday 08/28 and Tuesday 08/29 [...] day Patien (more content not included)... Normal [facility] Electrocardiogram 12 Leadon 08-25-2022 Electrocardiogram 12 Lead Ventricular Rate 71 Atrial Rate 71 P-R Interval 166 QRS Duration 88 Q-T Interval 380 QTC Calculation(Bazett) 412 P [place] 59 R [place] 61 T [place] 56 QRS Count 12 Q Onset 219 P Onset 136 P Offset 195 T Offset 409 QTC Fredericia 402 Diagnosis Class Borderline Abnormal Diagnosis Normal sinus rhythm Normal ECG When compared with ECG of 24-AUG-2022 20:23, premature ventricular complexes is no longer present Confirmed by Naila Leach ([id number]) on 08/26/2022 1:34:29 PM Normal [facility]3] Laboratory - Chemistry and C hemistry - challengeon 08-25-2022 Anion gap [Moles/Vol] 11 mmol/L 10 - 20 [facility] Work Phone: Calcium [Mass/Vol] 8.9 mg/dL 8.6 - 10.3 [facility] Work Phone: Chloride [Moles/Vol] 104 mmol/L 98 - 107 [facility] Work Phone: [phone] CO2 [Moles/Vol] 26 mmol/L 21 - 32 [facility] Work Phone: Creatinine [Mass/Vol] 0.76 mg/dL See Below [facility] Work Phone: Comment on above: Reference Range: 0.5 0 - 1.05 Glucose [Mass/Vol] 99 mg/dL 74 - 99 [facility] Work Phone: Potassium [Moles/Vol] 3.8 mmol/L 3.5 - 5.3 [facility] Work Phone: [phone] Sodium [Moles/Vol] 137 mmol/L 136 - 145 [facility] Work Phone: [phone] Urea nitrogen [Mass/Vol] 16 mg/dL 6 - 23 [facility] Work Phone: Laboratory - Hematology and Cell countson 08-25-2022 Erythrocyte distribution width (RBC) [Ratio] 12.6 % See Below [facility] Work Phone: Comment on above: Reference Range: 11. 5 - 14.5 Hematocrit (Bld) [Volume fraction] 38.4 % See Below [facility] Work Phone: Comment on above: Reference Range: 36. 0 - 46.0 Hemoglobin (Bld) [Mass/Vol] 13.1 g/dL See Below [facility] Work Phone: Comment on above: Reference Range: 12. 0 - 16.0 MCHC (RBC) [Mass/Vol] 34.1 g/dL See Below [facility] Work Phone: [phone] Comment on above: Reference Range: 32. 0 - 36.0 MCV (RBC) [Entitic vol] 92 fL 80 - 100 [facility] Work Phone: [phone] Platelets (Bld) [#/Vol] 248 10*3/uL 150 - 450 [facility] Work Phone: [phone] RBC (Bld) [#/Vol] 4.18 {x10E12/L} See Below [facility] Work Phone: Comment on above: Reference Range: 4.0 0 - 5.20 WBC (Bld) [#/Vol] 9.6 10*3/uL 4.4 - 11.3 [facility] Work Phone: MAGNESIUMon 08-25-2022 Magnesium [Mass/Vol] 1.91 mg/dL Normal 1.60 - 2.40 [facility] Comment on above: Performed By: #### M G #### [address] [id number] Magnesium, Serumon Magnesium [Mass/Vol] 1.91 mg/dL See Below [facility] Work Phone: Comment on above: Reference Range: 1.6 0 - 2.40 No Panel Informationon 08-25 [email or web address]?R etrieveTestByDateTime?Sherice hsWE=[id number]&Date= 023&Time=06%3a43%3a42%3a00& TestType=ECG&Site=11&Output Type=PDF&Ext=PDF [facility] DO Work Phone: [phone] Normal sinus rhythm MP-No [facility] DO Work Phone: [phone] Borderline Abnormal [facility] DO Work Phone: [phone] [facility] DO Work Phone: [phone] [facility] DO Work Phone: [phone] [facility] DO Work Phone: [phone] [facility] DO Work Phone: [phone] [facility] DO Work Phone: [phone] [facility] DO Work Phone: [phone] [facility] DO Work Phone: [phone] [facility] DO Work Phone: [phone] [facility] DO Work Phone: [phone] [facility] DO Work Phone: [phone] [facility] DO Work Phone: [phone] [facility] DO Work Phone: [phone] [facility] DO Work Phone: [phone] [facility] DO Work Phone: [phone] [facility] [place] Work Phone: Comment on above: CALCULATIONS OF LINDSEY MATED GFR ARE PERFORMED USING THE 2020 CKD-EPI STUDY REFIT EQUATION WITHOUT THE RACE VARIABLE FOR THE IDMS-TRACEABLE CREATININE METHODS.https://jasn.asnjournals.org/content//ASN. 3292781924 BASIC METABOLIC PANELon 03- GFR/1.73 sq M.predicted among non-blacks MDRD (S/P/Bld) [Vol rate/Area] 90 mL/min/{1.73_m2} Normal >90 [facility] Comment on above: Result Comment: CALC ULATIONS OF ESTIMATED GFR ARE PERFORMED USING THE 2020 CKD-EPI STUDY REFIT EQUATION WITHOUT THE RACE VARIABLE FOR THE IDMS-TRACEABLE CREATININE METHODS. https://jasn.asnjournals.org/content//ASN.89231136 88 Performed By: #### T RP #### [address] [id number] HCO3 (Bld) [Moles/Vol] 25 mmol/L Normal 21 - 32 [facility] Comment on above: Performed By: #### T RP #### [address] [id number] Anion gap [Moles/Vol] 12 mmol/L Normal 10 - 20 [facility] [place] Work Phone: Comment on above: Performed By: #### T RPHS #### [address] [id number] Calcium [Mass/Vol] 8.9 mg/dL Normal 8.6 - 10.3 [facility] [place] Work Phone: Comment on above: Performed By: #### T RPHS #### [address] [id number] Chloride [Moles/Vol] 104 mmol/L Normal 98 - 107 [facility] Work Phone: Comment on above: Performed By: #### T RPHS #### [address] [id number] Creatinine [Mass/Vol] 0.78 mg/dL Normal 0.50 - 1.05 [facility] [place] Work Phone: [phone] Comment on above: Reference Range: 0.5 0 - 1.05 Performed By: #### T RPHS #### [address] [id number] Glucose [Mass/Vol] 109 mg/dL High 74 - 99 [facility] [place] Work Phone: [phone] Comment on above: Performed By: #### T RPHS #### [address] [id number] Potassium [Moles/Vol] 4.0 mmol/L Normal 3.5 - 5.3 [facility] [place] Work Phone: [phone] Comment on above: Performed By: #### T RP #### [address] [id number] Sodium [Moles/Vol] 137 mmol/L Normal 136 - 145 [facility] [place] Work Phone: [phone] Comment on above: Performed By: #### T RPHS #### [address] [id number] Urea nitrogen [Mass/Vol] 17 mg/dL Normal 6 - 23 [facility] Work Phone: Comment on above: Performed By: #### T RPHS #### [address] [id number] CBCon 08-24-2022 Erythrocyte distribution width (RBC) [Ratio] 12.6 % Normal 11.5 - 14.5 [facility] Comment on above: Performed By: #### C BC #### [address] [id number] Hematocrit (Bld) [Volume fraction] 39.8 % Normal 36.0 - 46.0 [facility] Comment on above: Performed By: #### C BC #### [address] [id number] Hemoglobin (Bld) [Mass/Vol] 13.5 g/dL Normal 12.0 - 16.0 [facility] Comment on above: Performed By: #### C BC #### [address] [id number] MCHC (RBC) [Mass/Vol] 33.9 g/dL Normal 32.0 - 36.0 [facility] Comment on above: Performed By: #### C BC #### [address] [id number] MCV (RBC) [Entitic vol] 92 fL Normal 80 - 100 [facility] Comment on above: Performed By: #### C BC #### [address] [id number] Platelets (Bld) [#/Vol] 264 10*3/uL Normal 150 - 450 [facility] Comment on above: Performed By: #### C BC #### [address] [id number] RBC 4.32 x10E12/L Normal 4.00 - 5.20 [facility] Comment on above: Performed By: #### C BC #### [address] [id number] WBC (Bld) [#/Vol] 9.3 10*3/uL Normal 4.4 - 11.3 [facility] Comment on above: Performed By: #### C BC #### [address] [id number] Daily Progress Note-Electrop hysiologyon 08-24-2022 Daily Progress [...] day Objective Data: Objective Information: T PRBPMAPSpO2 Value36.602295/192655% Date/Time08/24 7: 7: 7: 7: 7:20 Range(36.1C [...] Last Updated: 24-Aug-2022 13:51 by Federico Wing) [facility] Daily Progress Note-Medicine on 08-24-2022 Daily [...] resolved. Objective Data: Objective Information: T PRBPMAPSpO2 Value36.281697/396252% Date/Time08/24 15: 15: 15: 15: 15:18 Range(36.1C [...] Updated: 24-Aug-2022 16:43 by Skip Kelly) Normal [facility] Discharge [id number] 023 Discharge Profile2 Discharge Orders: Anticipated Discharge Date: Anticipated Discharge [id number] Hospital Providers: Provider RoleProvider Name AttendingSkip Kelly Alberto DNAR: Code Status at Discharge: Full Code Activity: activity as tolerated. Provider FINAL REVIEW of Orders: Final Review: Final Review of Medication Reconciliation and Orders Completedby Physician Reviewing Viki Kelly MD at 25-Aug-2022 13:14:58 Appointments: Follow-Up Appointment 01: Physician/Dept/ServiceDr. Wing Reason for ReferralElectrophysiology follow-up Scheduled Date/[id number] 11:45 [facility] office in [address] Phone [phone] Other Clinician Instructions: Other Instructions: Other Clinician InstructionsPlease follow up in the [place] office as discussed with EP for repeat EKGs on monday 08/28 and tuesday 08/29. You will be increasing your flecainide to 75mg twice daily on Sunday. Please call the office or return to the hospital if you have worsening chest pain, shortness of breath, if you pass out, or have any other concerning symptoms. Electronic Signatures: Felicita Bhagat (-PORTRAIT PAINTER) (Signed 24-Aug-2022 14:30) Authored: Discharge Orders, Appointments, Gold Form - Garage Laborer Summary Skip Kelly) (Signed 25-Aug-2022 13:14) Authored: Discharge Orders, Provider FINAL REVIEW of Orders, Other Clinician Instructions Last Updated: 25-Aug-2022 13:14 by Skip Kelly) Normal [facility] Electrocardiogram 12 Leadon 08-24-2022 Electrocardiogram 12 Lead Ventricular Rate 69 Atrial Rate 69 P-R Interval 136 QRS Duration 82 Q-T Interval 398 QTC Calculation(Bazett) 426 P [place] 39 R [place] 48 T [place] 45 QRS Count 11 Q Onset 218 P Onset 150 P Offset 193 T Offset 417 QTC Fredericia 417 Diagnosis Class Borderline Abnormal Diagnosis Sinus rhythm with frequent premature ventricular complexes in a pattern of bigeminy Otherwise normal ECG When compared with ECG of 24-AUG-2022 06:30, No significant change was found Confirmed by Naila Leach ([id number]) on 08/26/2022 1:28:10 PM Normal [facility]3] Electrocardiogram 12 Lead Ventricular Rate 62 Atrial Rate 62 P-R Interval 162 QRS Duration 86 Q-T Interval 392 QTC Calculation(Bazett) 397 P [place] 28 R [place] 46 T [place] 42 QRS Count 10 Q Onset 219 [...] Wing ([id number]) on 08/24/2022 8:32:51 AM Normal [facility]3] Laboratory - Chemistry and C hemistry - challengeon 08-24-2022 CO2 [Moles/Vol] 25 mmol/L 21 - 32 [facility] [place] Work Phone: Laboratory - Hematology and Cell countson 08-24-2022 Erythrocyte distribution width (RBC) [Ratio] 12.6 % See Below [facility] [place] Work Phone: [phone] Comment on above: Reference Range: 11. 5 - 14.5 Hematocrit (Bld) [Volume fraction] 39.8 % See Below [facility] [place] Work Phone: Comment on above: Reference Range: 36. 0 - 46.0 Hemoglobin (Bld) [Mass/Vol] 13.5 g/dL See Below [facility] Work Phone: [phone] Comment on above: Reference Range: 12. 0 - 16.0 MCHC (RBC) [Mass/Vol] 33.9 g/dL See Below [facility] Work Phone: Comment on above: Reference Range: 32. 0 - 36.0 MCV (RBC) [Entitic vol] 92 fL 80 - 100 [facility] [place] Work Phone: [phone] Platelets (Bld) [#/Vol] 264 10*3/uL 150 - 450 [facility] [place] Work Phone: [phone] RBC (Bld) [#/Vol] 4.32 {x10E12/L} See Below [facility] Work Phone: [phone] Comment on above: Reference Range: 4.0 0 - 5.20 WBC (Bld) [#/Vol] 9.3 10*3/uL 4.4 - 11.3 [facility] Work Phone: [phone] Magnesium, Serumon 3 Magnesium [Mass/Vol] 2.00 mg/dL Normal 1.60 - 2.40 [facility] [place] Work Phone: [phone] Comment on above: Reference Range: 1.6 0 - 2.40 Performed By: #### M G #### [address] [id number] No Panel Informationon 08-24 https://[facility] – OKLAHOMA CITYEXPRDWE [email or web address] 0/musescripts/[email or web address].dll?R etrieveTestByDateTime?Patie jmDV=[id number]&Date= 023&Time=20%3a23%3a14%3a00& TestType=ECG&Site=&Output Type=PDF&Ext=PDF [facility] DO Work Phone: [phone] Sinus rhythm with fr equent premature ventricular complexes in a pattern of bigeminy [facility] [facility] DO Work Phone: [phone] Borderline Abnormal -[facility] DO Work Phone: [phone] [facility] [facility] DO Work Phone: [phone] [facility] DO Work Phone: [phone] [facility] DO Work Phone: [phone] [facility] DO Work Phone: [phone] [facility] DO Work Phone: [phone] [facility] DO Work Phone: [phone] [facility] DO Work Phone: [phone] [facility] DO Work Phone: [phone] [facility] DO Work Phone: [phone] [facility] DO Work Phone: [phone] [facility] DO Work Phone: [phone] [facility] DO Work Phone: [phone] [facility] DO Work Phone: [email or web address]?R etrieveTestByDateTime?Patie dtVC=[id number]&Date= 023&Time=06%3a30%3a53%3a00& TestType=ECG&Site=11&Output Type=PDF&Ext=PDF [facility] Work Phone: [phone] Sinus rhythm with occasional premature ventricular complexes [facility] Work Phone: [phone] Borderline Abnormal -No [facility] Work Phone: [phone] [facility] Work Phone: [phone] [facility] Work Phone: [phone] [facility] Work Phone: [phone] [facility] Work Phone: [phone] [facility] Work Phone: [address] [facility] Work Phone: [phone] [facility] Work Phone: [phone] [facility] Work Phone: [address] [facility] Work Phone: [phone] [facility] Work Phone: [phone] [facility] Work Phone: [address] [facility] Work Phone: [phone] [facility] Work Phone: [address] [facility] Work Phone: {mL/min/1.73m2} >90 [facility] Work Phone: [phone] Comment on above: CALCULATIONS OF LINDSEY MATED GFR ARE PERFORMED USING THE 2020 CKD-EPI STUDY REFIT EQUATION WITHOUT THE RACE VARIABLE FOR THE IDMS-TRACEABLE CREATININE METHODS.https://jasn.asnjournals.org/content//ASN. 8640956385 Order Reconciliationon 08-24 Order Reconciliation Page 1 Discharge Reconciliation Document Reconciliation Type: Discharge requested on behalf of Skip Kelly (Physician) done by Skip Kelly) Discharge - Partial Reconciliation: 24-Aug-2022 09:08 by: Kayla Shaw (MARKETING SERVICES COORDINATOR-[facility]) Discharge - Partial Reconciliation: 25-Aug-2022 09:53 by: Kayla Shaw (MARKETING SERVICES COORDINATOR-[facility]) Discharge - Partial Reconciliation: 25-Aug-2022 12:31 by: Kayla Shaw ([facility]) Discharge - Reconciliation: 25-Aug-2022 13:15 by: [...] [employer] (more content not included)... Normal [facility] Admission Risk Screen - Adul ton [...] AlertFor Ebola-like Symptoms: Isolate Patient and Notify Provider/Wiping Rag Washer For Contact: Notify Provider/Wiping Rag Washer Advance Directive: Advance Directive/DNRno Advance Directive Information [...] Learning Preferencesskill demonstration Cultural Considerationsnone Developmental Considerationsnone Holiness Considerationsnone Learning Assessment (Other Learner): Other learner availableno Depression Screen: During the past month, have you often been bothered by feeling down, depressed or hopelessyes During the past month, have you often had little interest or pleasure in doing thingsno Have you had any thoughts of harming anyone elseno (1) [place] Suicide: Risk Screen Not Applicable/Able to Answerable to be screened In the Past Month: Have you wished you were or could go to sleep and not wake upno(1) In the Past Month: Have you had any actual thoughts of killing yourself no(1) Lifetime: Have you ever done, started to do, or prepared to do anything to end your lifeno [place] Suicide Risknegative Adult Nutrition Screen: Have you [...] Spiritual Screen: Are there any cultural, spiritual, restorationism practices/values/needs that are important for us to knowno CAGE: Is this an injure (more content not included)... Normal [facility] BASIC METABOLIC PANELon 03-0 Anion gap [Moles/Vol] 11 mmol/L Normal 10 - 20 [facility] Comment on above: Performed By: #### B MP #### [address] [id number] Calcium [Mass/Vol] 8.9 mg/dL Normal 8.6 - 10.3 [facility] Comment on above: Performed By: #### B MP #### [address] [id number] Chloride [Moles/Vol] 102 mmol/L Normal 98 - 107 [facility] Comment on above: Performed By: #### B MP #### [address] [id number] Creatinine [Mass/Vol] 0.92 mg/dL Normal 0.50 - 1.05 [facility] Comment on above: Performed By: #### B MP #### [address] [id number] GFR/1.73 sq M.predicted among non-blacks MDRD (S/P/Bld) [Vol rate/Area] 74 mL/min/{1.73_m2} Normal >90 [facility] Comment on above: Result Comment: CALC ULATIONS OF ESTIMATED GFR ARE PERFORMED USING THE 2020 CKD-EPI STUDY REFIT EQUATION WITHOUT THE RACE VARIABLE FOR THE IDMS-TRACEABLE CREATININE METHODS. https://jasn.asnjournals.org/content//ASN.48965080 88 Performed By: #### B MP #### [address] [id number] Glucose [Mass/Vol] 103 mg/dL High 74 - 99 [facility] Comment on above: Performed By: #### B MP #### [address] [id number] HCO3 (Bld) [Moles/Vol] 26 mmol/L Normal 21 - 32 [facility] Comment on above: Performed By: #### B MP #### [address] [id number] Potassium [Moles/Vol] 3.8 mmol/L Normal 3.5 - 5.3 [facility] Comment on above: Performed By: #### B MP #### [address] [id number] Sodium [Moles/Vol] 135 mmol/L Low 136 - 145 [facility] Comment on above: Performed By: #### B MP #### [address] [id number] Urea nitrogen [Mass/Vol] 17 mg/dL Normal 6 - 23 [facility] Comment on above: Performed By: #### B MP #### [address] [id number] CBCon 08-23-2022 Erythrocyte distribution width (RBC) [Ratio] 12.5 % Normal 11.5 - 14.5 [facility] Comment on above: Performed By: #### C BC #### [address] [id number] Hematocrit (Bld) [Volume fraction] 39.7 % Normal 36.0 - 46.0 [facility] Comment on above: Performed By: #### C BC #### [address] [id number] Hemoglobin (Bld) [Mass/Vol] 13.6 g/dL Normal 12.0 - 16.0 [facility] Comment on above: Performed By: #### C BC #### [address] [id number] MCHC (RBC) [Mass/Vol] 34.3 g/dL Normal 32.0 - 36.0 [facility] Comment on above: Performed By: #### C BC #### [address] [id number] MCV (RBC) [Entitic vol] 93 fL Normal 80 - 100 [facility] Comment on above: Performed By: #### C BC #### [address] [id number] Platelets (Bld) [#/Vol] 256 10*3/uL Normal 150 - 450 [facility] Comment on above: Performed By: #### C BC #### [address] [id number] RBC 4.25 x10E12/L Normal 4.00 - 5.20 [facility] Comment on above: Performed By: #### C BC #### [address] [id number] WBC (Bld) [#/Vol] 9.2 10*3/uL Normal 4.4 - 11.3 [facility] Comment on above: Performed By: #### C BC #### [address] [id number] Consult-Electrophysiologyon 08-23-2022 Consult-Electrophys iology Service: Service: Electrophysiology Consult: Consult requested by (Attending Name): Skip Kelly Reason: symptomatic bradycardia, bigeminy History of Present Illness: HPI: RASHEEDA HANNA is a 51 year old Female evaluated in [facility] emergency room on 08/22/2022 secondary to palpitations, [...] Swelling, Hives/Urticaria Objective: Objective Information: T PRBPMAPSpO2 [id number]% Date/Time08/23 9: 9: 16:4408/23 9: 0:113 9:05 Range(36.4C - 37C ) [...] 3:25:30 PM (more content not included)... Normal [facility] Daily Progress Note-Medicine on 08-23-2022 Daily Progress Note-Medicine Service: Medicine Subjective Data: RASHEEDA HANNA is a 51 year old Female who is Hospital Day # 2. Some bradycardia overnight. Feeling better today however, less dizziness. Still getting symptoms with positional changes however. No chest pain. No dyspnea. Objective Data: Objective Information: T PRBPMAPSpO2 [id number]/431780% Date/Time08/23 14: 14: 16:443 14: 0:113 14:03 [...] Updated: 23-Aug-2022 16:31 by Skip Kelly) Normal [facility] Discharge Planning [id number] 0 08-23-2022 Discharge Planning Note2 Discharge Planning: Discharge DestinationHome Anticipated Discharge [id number] Discharge Planning 08/23/2022 1422 Care Transitions Note Rasheeda Hanna is a 51 year old female who was admitted to [facility] 08/22/2022 with dx of chest pain. Chart reviewed, junior copywriter spoke with patient- introduced self and explained role. Patient sitting up in bed. She is alert and oriented x3. Patient interacted well with junior copywriter and answered assessment questions appropriately. Demographics confirmed. PCP Dr. Kayla Dent who she saw in June and have follow-up in October. Pharmacy preference is [facility]. Prior to admission, lives with spouse in a 1 story home. Prior level of functioning independent no assistive device. She completed own adls and iadls. She is still working 42-50 hours a week. Admissions Advisor discussed discharge needs/ concerns. She is currently denying any needs/ concerns. Her plan is home. Care Transitions to continue to monitor progression and address needs/ concerns as identified. ASHUTOSH Paulino Assessment: Discharge Planning Assessment [id number] Primary Contact Name and [phone] (spouse) He(1) Lives Withadult child(jose); dependent child(jose); spouse(1) Living Arrangementshouse(1) Stated Reason for AdmissionChest pain dizzy and SOB(1) [place] ([place]) Resource/Environmental Concernsnone(1) Anticipated Transition [place](1) Services Anticipated at Transitionnon(1) Electronic Signatures: Lou Ferrer (HARRIET) (Signed 23-Aug-2022 14:34) Authored: Discharge Planning, Assessment Last Updated: 23-Aug-2022 14:34 by Lou Ferrer (HARRIET) References: 1. Data Referenced From Patient Profile - Adult v2 22-Aug-2022 22:19 Normal [facility] Laboratory - Chemistry and C hemistry - challengeon 08-23-2022 Anion gap [Moles/Vol] 11 mmol/L 10 - 20 [facility] Work Phone: Calcium [Mass/Vol] 8.9 mg/dL 8.6 - 10.3 [facility] Work Phone: Chloride [Moles/Vol] 102 mmol/L 98 - 107 [facility] Work Phone: CO2 [Moles/Vol] 26 mmol/L 21 - 32 [facility] Work Phone: Creatinine [Mass/Vol] 0.92 mg/dL See Below [facility] Work Phone: Comment on above: Reference Range: 0.5 0 - 1.05 Glucose [Mass/Vol] 103 mg/dL above high threshold 74 - 99 [facility] Work Phone: [phone] Potassium [Moles/Vol] 3.8 mmol/L 3.5 - 5.3 [facility] Work Phone: [phone] Sodium [Moles/Vol] 135 mmol/L below low threshold 136 - 145 [facility] [employer] Work Phone: [phone] Urea nitrogen [Mass/Vol] 17 mg/dL 6 - 23 [facility] Work Phone: [phone] Laboratory - Hematology and Cell countson 08-23-2022 Erythrocyte distribution width (RBC) [Ratio] 12.5 % See Below [facility] Work Phone: [phone] Comment on above: Reference Range: 11. 5 - 14.5 Hematocrit (Bld) [Volume fraction] 39.7 % See Below [facility] [employer] Work Phone: [phone] Comment on above: Reference Range: 36. 0 - 46.0 Hemoglobin (Bld) [Mass/Vol] 13.6 g/dL See Below [facility] [employer] Work Phone: [phone] Comment on above: Reference Range: 12. 0 - 16.0 MCHC (RBC) [Mass/Vol] 34.3 g/dL See Below [facility] Work Phone: [phone] Comment on above: Reference Range: 32. 0 - 36.0 MCV (RBC) [Entitic vol] 93 fL 80 - 100 [facility] Work Phone: [phone] Platelets (Bld) [#/Vol] 256 10*3/uL 150 - 450 [facility] Work Phone: [phone] RBC (Bld) [#/Vol] 4.25 {x10E12/L} See Below [facility] Work Phone: Comment on above: Reference Range: 4.0 0 - 5.20 WBC (Bld) [#/Vol] 9.2 10*3/uL 4.4 - 11.3 [facility] [employer] Work Phone: No Panel Informationon 08-23 74 {mL/min/1.73m2} >90 [facility] [employer] Work Phone: Comment on above: CALCULATIONS OF L[place]SE[place] MATED GFR ARE PERFORMED USING THE 2020 CKD-EPI STUDY REFIT EQUATION WITHOUT THE RACE VARIABLE FOR THE IDMS-TRACEABLE CREATININE METHODS.https://jasn.asnjournals.org/content/early/ASN. 8047324551 Patient Profile - Adult v2on 08-23-2022 Patient Profile - Adult v2 Profile: Initial Info: How to be AddressedPaula(1) Spoken Language PreferredEnglish (1) Stated Reason for AdmissionChest pain dizzy and SOB Primary Contact Name and [phone] (spouse) He Wants Family/Rep Notified of Admissionn/a; family present Notify PCPdeferred, unable to answer Informed of Patient Visiting Rightsyes [place] Employment Statusemployed Patient Belongingsremains with patient Patient Belongings Remaining with Patientcell phone/electronics; vision aids Medications Brought to Hospitalno General Health: Blood Avoidance/Restrictionsnone( 1) Previous Transfusion Reactionno(1) Weight in kg82.8 kilogram(s) Weight in hlj662.5 pound(s) Weight Methodactual (measured) Scale Typestanding Height [...] From History and Physical 22-Aug-2022 17:58 Normal [facility] BASIC METABOLIC PANELon 03-0 ANION GAP Canceled Normal [facility] Comment on above: Order Comment: TEST BASIC METABOLIC PANEL WAS CANCELLED, 08/22/2022 20:12 This order is Barbi draw. Retiming 08/22/2022 20:12. Performed By: #### T RPHS #### [address] [id number] BICARBONATE Canceled Normal [facility] Comment on above: Order Comment: TEST BASIC METABOLIC PANEL WAS CANCELLED, 08/22/2022 20:12 This order is Barbi draw. Retiming 08/22/2022 20:12. Performed By: #### T RPHS #### [address] [id number] CALCIUM Canceled Normal [facility] Comment on above: Order Comment: TEST BASIC METABOLIC PANEL WAS CANCELLED, 08/22/2022 20:12 This order is Barbi draw. Retiming 08/22/2022 20:12. Performed By: #### T RPHS #### [address], [place] [id number] CHLORIDE Canceled Normal [facility] Comment on above: Order Comment: TEST BASIC METABOLIC PANEL WAS CANCELLED, 08/22/2022 20:12 This order is Barbi draw. Retiming 08/22/2022 20:12. Performed By: #### T RPHS #### [address] [id number] CREATININE Canceled Normal [facility] Comment on above: Order Comment: TEST BASIC METABOLIC PANEL WAS CANCELLED, 08/22/2022 20:12 This order is Barbi draw. Retiming 08/22/2022 20:12. Performed By: #### T RPHS #### [address] [id number] eGFR FEMALE Canceled Normal [facility] Comment on above: Order Comment: TEST BASIC METABOLIC PANEL WAS CANCELLED, 08/22/2022 20:12 This order is Barbi draw. Retiming 08/22/2022 20:12. Result Comment: CALC ULATIONS OF ESTIMATED GFR ARE PERFORMED USING THE 2020 CKD-EPI STUDY REFIT EQUATION WITHOUT THE RACE VARIABLE FOR THE IDMS-TRACEABLE CREATININE METHODS. https://jasn.asnjournals.org/content/early/ASN.29881763 88 Performed By: #### T RPHS #### [address] [id number] eGFR MALE Canceled Normal [facility] Comment on above: Order Comment: TEST BASIC METABOLIC PANEL WAS CANCELLED, 08/22/2022 20:12 This order is Barbi draw. Retiming 08/22/2022 20:12. Result Comment: CALC ULATIONS OF ESTIMATED GFR ARE PERFORMED USING THE 2020 CKD-EPI STUDY REFIT EQUATION WITHOUT THE RACE VARIABLE FOR THE IDMS-TRACEABLE CREATININE METHODS. https://jasn.asnjournals.org/content/early/ASN.73435468 88 Performed By: #### T RPHS #### [address] [id number] GLUCOSE Canceled Normal [facility] Comment on above: Order Comment: TEST BASIC METABOLIC PANEL WAS CANCELLED, 08/22/2022 20:12 This order is Barbi draw. Retiming 08/22/2022 20:12. Performed By: #### T RPHS #### [address] [id number] POTASSIUM Canceled Normal [facility] Comment on above: Order Comment: TEST BASIC METABOLIC PANEL WAS CANCELLED, 08/22/2022 20:12 This order is Barbi draw. Retiming 08/22/2022 20:12. Performed By: #### T RPHS #### [address] [id number] SODIUM Canceled Normal [facility] Comment on above: Order Comment: TEST BASIC METABOLIC PANEL WAS CANCELLED, 08/22/2022 20:12 This order is Barbi draw. Retiming 08/22/2022 20:12. Performed By: #### T RP #### [address] [id number] UREA NITROGEN Canceled Normal [facility] Comment on above: Order Comment: TEST BASIC METABOLIC PANEL WAS CANCELLED, 08/22/2022 20:12 This order is Barbi draw. Retiming 08/22/2022 20:12. Performed By: #### T RPHS #### [address] [id number] CBCon 08-22-2022 HCT Canceled Normal [facility] Comment on above: Order Comment: TEST CBC WAS CANCELLED, 08/22/2022 20:12 This order is for AM draw. Iscxghuw33/07/2023 20:12. Performed By: #### M G #### [address], [place] [id number] HGB Canceled Normal [facility] Comment on above: Order Comment: TEST CBC WAS CANCELLED, 08/22/2022 20:12 This order is for AM draw. Uwewlzim44/07/2023 20:12. Performed By: #### M G #### [address] [id number] MCHC Canceled Normal [facility] Comment on above: Order Comment: TEST CBC WAS CANCELLED, 08/22/2022 20:12 This order is for AM draw. Gorrjkxd40/07/2023 20:12. Performed By: #### M G #### [address] [id number] MCV Canceled Normal [facility] Comment on above: Order Comment: TEST CBC WAS CANCELLED, 08/22/2022 20:12 This order is for AM draw. Uhsezjwc84/07/2023 20:12. Performed By: #### M G #### [address] [id number] NUCLEATED RBC Canceled Normal [facility] Comment on above: Order Comment: TEST CBC WAS CANCELLED, 08/22/2022 20:12 This order is for AM draw. Gxymrkdz89/07/2023 20:12. Performed By: #### M G #### [address] [id number] PLT Canceled Normal [facility] Comment on above: Order Comment: TEST CBC WAS CANCELLED, 08/22/2022 20:12 This order is for AM draw. Lhttfcpo74/07/2023 20:12. Performed By: #### M G #### [address] [id number] RBC Canceled Normal [facility] Comment on above: Order Comment: TEST CBC WAS CANCELLED, 08/22/2022 20:12 This order is for AM draw. Ailydfbt54/07/2023 20:12. Performed By: #### M G #### [address], [place] [id number] RDW-CV Canceled Normal [facility] Comment on above: Order Comment: TEST CBC WAS CANCELLED, 08/22/2022 20:12 This order is for AM draw. Wrrfkmgu28/07/2023 20:12. Performed By: #### M G #### [address] [id number] WBC Canceled Normal [facility] Comment on above: Order Comment: TEST CBC WAS CANCELLED, 08/22/2022 20:12 This order is for AM draw. Jpscdrel35/07/2023 20:12. Performed By: #### M Francisco Javier #### [address] [id number] CBC AND DIFFERENTIALon 08-22 % AUTOMATED IMMATURE GRAN 0.4 % Normal 0.0 - 0.9 [facility] Comment on above: Result Comment: Patricia ture Granulocyte Count (IG) includes promyelocytes, myelocytes and metamyelocytes but does not include bands. Percent differential counts (%) should be interpreted in the context of the absolute cell counts (cells/L). Performed By: #### T RP #### [address] [id number] Basophils (Bld) [#/Vol] 0.07 10*3/uL Normal 0.00 - 0.10 [facility] Comment on above: Performed By: #### T RP #### [address] [id number] Basophils/100 WBC (Bld) 0.7 % Normal 0.0 - 2.0 [facility] Comment on above: Performed By: #### T RP #### [address] [id number] Eosinophils (Bld) [#/Vol] 0.12 10*3/uL Normal 0.00 - 0.70 [facility] Comment on above: Performed By: #### T RP #### [address] [id number] Eosinophils/100 WBC (Bld) 1.2 % Normal 0.0 - 6.0 [facility] Comment on above: Performed By: #### T RPHS #### [address] [id number] Erythrocyte distribution width (RBC) [Ratio] 12.4 % Normal 11.5 - 14.5 [facility] Comment on above: Performed By: #### T RPHS #### [address] [id number] Hematocrit (Bld) [Volume fraction] 42.8 % Normal 36.0 - 46.0 [facility] Comment on above: Performed By: #### T RPHS #### [address] [id number] Hemoglobin (Bld) [Mass/Vol] 14.6 g/dL Normal 12.0 - 16.0 [facility] Comment on above: Performed By: #### T RPHS #### [address] [id number] Lymphocytes (Bld) [#/Vol] 2.38 10*3/uL Normal 1.20 - 4.80 [facility] Comment on above: Performed By: #### T RPHS #### [address] [id number] Lymphocytes/100 WBC (Bld) 22.9 % Normal 13.0 - 44.0 [facility] Comment on above: Performed By: #### T RPHS #### [address] [id number] MCHC (RBC) [Mass/Vol] 34.1 g/dL Normal 32.0 - 36.0 [facility] Comment on above: Performed By: #### T RPHS #### [address] [id number] MCV (RBC) [Entitic vol] 93 fL Normal 80 - 100 [facility] Comment on above: Performed By: #### T RPHS #### [address] [id number] Monocytes (Bld) [#/Vol] 0.80 10*3/uL Normal 0.10 - 1.00 [facility] Comment on above: Performed By: #### T RPHS #### [address] [id number] Monocytes/100 WBC (Bld) 7.7 % Normal 2.0 - 10.0 [facility] Comment on above: Performed By: #### T RPHS #### [address] [id number] Neutrophils (Bld) [#/Vol] 7.00 10*3/uL Normal 1.20 - 7.70 [facility] Comment on above: Performed By: #### T RPHS #### [address] [id number] Neutrophils/100 WBC (Bld) 67.1 % Normal 40.0 - 80.0 [facility] Comment on above: Performed By: #### T RPHS #### [address] [id number] Platelets (Bld) [#/Vol] 285 10*3/uL Normal 150 - 450 [facility] Comment on above: Performed By: #### T RPHS #### [address] [id number] RBC 4.58 x10E12/L Normal 4.00 - 5.20 [facility] Comment on above: Performed By: #### T RPHS #### [address] [id number] WBC (Bld) [#/Vol] 10.4 10*3/uL Normal 4.4 - 11.3 [facility] Comment on above: Performed By: #### T RPHS #### [address] [id number] COMPREHENSIVE PANELon 2022 Albumin [Mass/Vol] 4.3 g/dL Normal 3.4 - 5.0 [facility] Comment on above: Performed By: #### T RPHS #### [address] [id number] ALP [Catalytic activity/Vol] 80 U/L Normal 33 - 110 [facility] Comment on above: Performed By: #### T RPHS #### [address] [id number] ALT [Catalytic activity/Vol] 29 U/L Normal 7 - 45 [facility] Comment on above: Result Comment: Selam ents treated with Sulfasalazine may generate falsely decreased results for ALT. Performed By: #### T RPHS #### [address] [id number] Anion gap [Moles/Vol] 13 mmol/L Normal 10 - 20 [facility] Comment on above: Performed By: #### T RPHS #### [address] [id number] AST [Catalytic activity/Vol] 22 U/L Normal 9 - 39 [facility] Comment on above: Performed By: #### T RPHS #### [address] [id number] Bilirubin [Mass/Vol] 0.4 mg/dL Normal 0.0 - 1.2 [facility] Comment on above: Performed By: #### T RPHS #### [address] [id number] Calcium [Mass/Vol] 9.4 mg/dL Normal 8.6 - 10.3 [facility] Comment on above: Performed By: #### T RPHS #### [address] [id number] Chloride [Moles/Vol] 102 mmol/L Normal 98 - 107 [facility] Comment on above: Performed By: #### T RPHS #### [address] [id number] Creatinine [Mass/Vol] 0.93 mg/dL Normal 0.50 - 1.05 [facility] Comment on above: Performed By: #### T RPHS #### [address] [id number] GFR/1.73 sq M.predicted among non-blacks MDRD (S/P/Bld) [Vol rate/Area] 73 mL/min/{1.73_m2} Normal >90 [facility] Comment on above: Result Comment: CALC ULATIONS OF ESTIMATED GFR ARE PERFORMED USING THE 2020 CKD-EPI STUDY REFIT EQUATION WITHOUT THE RACE VARIABLE FOR THE IDMS-TRACEABLE CREATININE METHODS. https://jasn.asnjournals.org/content//ASN.59553140 88 Performed By: #### T RPHS #### [address] [id number] Glucose [Mass/Vol] 92 mg/dL Normal 74 - 99 [facility] Comment on above: Performed By: #### T RPHS #### [address] [id number] HCO3 (Bld) [Moles/Vol] 28 mmol/L Normal 21 - 32 [facility] Comment on above: Performed By: #### T RPHS #### [address] [id number] Potassium [Moles/Vol] 3.8 mmol/L Normal 3.5 - 5.3 [facility] Comment on above: Performed By: #### T RPHS #### [address] [id number] Protein [Mass/Vol] 7.8 g/dL Normal 6.4 - 8.2 [facility] Comment on above: Performed By: #### T RPHS #### [address] [id number] Sodium [Moles/Vol] 139 mmol/L Normal 136 - 145 [facility] Comment on above: Performed By: #### T RPHS #### [address] [id number] Urea nitrogen [Mass/Vol] 16 mg/dL Normal 6 - 23 [facility] Comment on above: Performed By: #### T RPHS #### [address] [id number] Complete Blood Count + Diffsina fischer 08-22-2022 Basophils/100 WBC (Bld) 0.7 % 0.0 - 2.0 [facility] Work Phone: [phone] Erythrocyte distribution width (RBC) [Ratio] 12.4 % See Below [facility] Work Phone: [phone] Comment on above: Reference Range: 11. 5 - 14.5 Hematocrit (Bld) [Volume fraction] 42.8 % See Below [facility] Work Phone: [phone] Comment on above: Reference Range: 36. 0 - 46.0 Hemoglobin (Bld) [Mass/Vol] 14.6 g/dL See Below [facility] Work Phone: [phone] Comment on above: Reference Range: 12. 0 - 16.0 Lymphocytes/100 WBC (Bld) 22.9 % See Below [facility] Work Phone: [phone] Comment on above: Reference Range: 13. 0 - 44.0 MCHC (RBC) [Mass/Vol] 34.1 g/dL See Below [facility] Work Phone: [phone] Comment on above: Reference Range: 32. 0 - 36.0 MCV (RBC) [Entitic vol] 93 fL 80 - 100 [facility] Work Phone: [phone] Monocytes/100 WBC (Bld) 7.7 % 2.0 - 10.0 [facility] Work Phone: [phone] Neutrophils/100 WBC (Bld) 67.1 % See Below [facility] Work Phone: [phone] Comment on above: Reference Range: 40. 0 - 80.0 Platelets (Bld) [#/Vol] 285 10*3/uL 150 - 450 [facility] Work Phone: [phone] RBC (Bld) [#/Vol] 4.58 {x10E12/L} See Below [facility] Work Phone: Comment on above: Reference Range: 4.0 0 - 5.20 WBC (Bld) [#/Vol] 10.4 10*3/uL 4.4 - 11.3 [facility] [employer] Work Phone: Complete Blood Count + Differential 0.07 {x10E9/L} See Below [facility] Work Phone: Comment on above: Reference Range: 0.0 0 - 0.10 Complete Blood Count + Differential 0.12 {x10E9/L} See Below [facility] Work Phone: Comment on above: Reference Range: 0.0 0 - 0.70 Complete Blood Count + Differential 0.80 {x10E9/L} See Below [facility] Work Phone: [phone] Comment on above: Reference Range: 0.1 0 - 1.00 Complete Blood Count + Differential 2.38 {x10E9/L} See Below [facility] Work Phone: Comment on above: Reference Range: 1.2 0 - 4.80 Complete Blood Count + Differential 7.00 {x10E9/L} See Below [facility] Work Phone: Comment on above: Reference Range: 1.2 0 - 7.70 Complete Blood Count + Differential 1.2 % 0.0 - 6.0 [facility] Work Phone: [phone] Complete Blood Count + Differential 0.4 % 0.0 - 0.9 [facility] Work Phone: [phone] Comment on above: Immature Granulocyte Count (IG) [...] You may also be contacted by the [facility] to see if any of your close [...] or Naproxen (Aleve) can also be used. Dcuz-wjo-jkexsdu cough and cold medicines can be used according to the instructions on the package. Some lwxh-hfy-bnitkdl medicines also contain acetaminophen. Make sure you [...] water are not available, use alcohol-based hand wheelman. Avoid touching your eyes, nose, and mouth [...] 24 wan (more content not included)... Normal [facility] Electrocardiogram 12 Leadon 08-22-2022 Electrocardiogram 12 Lead Ventricular Rate 80 Atrial Rate 80 QRS Duration 132 Q-T Interval 400 QTC Calculation(Bazett) 461 R [place] 74 T [place] -9 QRS Count 14 Q Onset 207 T Offset 407 QTC Fredericia 440 Diagnosis Class Abnormal Diagnosis sinus rhythm with frequent PAC's in a pattern of atrial bigeminy Nonspecific intraventricular block Cannot rule out Anteroseptal infarct , age undetermined T wave abnormality, consider inferior ischemia Abnormal ECG Confirmed by Federico Wing ([id number]) on 08/22/2022 3:25:30 PM Normal [facility] (formerly [facility])[3] INFLUENZA A/B, COVID 2019 PC R,SYMPTOMATICon 08-22-2022 INFLUENZA A, PCR Not detected Normal Not Detected [facility] Comment on above: Result Comment: Resp iratory virus testing is performed routinely by PCR for Influenza A/B and RSV. Not Detected results do not preclude Influenza A/B or RSV infections since the adequacy of sample collection or low viral burden may impact the clinical sensitivity of this test method. Performed By: #### [facility] #### [address] [phone] INFLUENZA B, PCR Not detected Normal Not Detected [facility] Comment on above: Result Comment: Resp iratory virus testing is performed routinely by PCR for Influenza A/B and RSV. Not Detected results do not preclude Influenza A/B or RSV infections since the adequacy of sample collection or low viral burden may impact the clinical sensitivity of this test method. Performed By: #### T RP #### [address] [id number] SARS-CoV-2 (COVID-19) RNA REYNALDO+probe Ql (Unsp spec) Not detected Normal Not Detected [facility] Comment on above: Result Comment: . This test has received FDA Emergency Use Authorization (EUA) and has been verified by [facility]. This test is only authorized for the duration of time that circumstances exist to justify the authorization of the emergency use of in vitro diagnostic tests for the detection of SARS-CoV-2 virus and/or diagnosis of COVID-19 infection under section 564(b)(1) of the Act, 21 U.S.C. 360bbb-3(b)(1), unless the authorization is terminated or revoked sooner. [facility] is certified under CLIA-88 as qualified to perform high complexity testing. Testing is performed in the [facility] laboratory located at [address] [place] [id number]. SARS-CoV-2/Flu/RSV Multiplex Test: Fact sheet for providers: https://www.fda.gov/media/340725/download Fact sheet for patients: https://www.fda.gov/media/240965/download Performed By: #### T [facility] #### [address] [id number] Lab Specimen Source Nasal, Nasopharyngeal Normal [facility] Comment on above: Performed By: #### [facility] #### [address] [phone] INFLUENZA A/B, COVID 2019 PCR,SYMPTOMATIC Not detected See Below [facility] Work Phone: Comment on above: Reference Range: Not Detected.This test has received FDA Emergency Use Authorization (EUA) and has been verified by [facility]. This test is only authorized for the duration of time that circumstances exist to justify the authorization of the emergency use of in vitro diagnostic tests for the detection of SARS-CoV-2 virus and/or diagnosis of COVID-19 infection under section 564(b)(1) of the Act, 21 U.S.C. 360bbb-3(b)(1), unless the authorization is terminated or revoked sooner. [facility] is certified under CLIA-88 as qualified to perform high complexity testing. Testing is performed in the [facility] laboratory located at [address] [place] [address].SARS-CoV-2/Flu/RSV Multiplex Test: Fact sheet for providers: https://www.fda.gov/media/042227/downloadFact sheet for patients: https://www.fda.gov/media/227719/download Reference Range: Not Detected Respiratory virus testing [...] dye [Mass/Vol] 4.3 g/dL 3.4 - 5.0 [facility] Work Phone: [phone] ALP [Catalytic activity/Vol] 80 U/L 33 - 110 [facility] Work Phone: [phone] With P-5'-P [Catalytic activity/Vol] 29 U/L 7 - 45 [facility] Work Phone: [phone] Comment on above: Patients treated wit h Sulfasalazine may generate falsely decreased results for ALT. Anion gap [Moles/Vol] 13 mmol/L 10 - 20 [facility] Work Phone: [phone] AST With P-5'-P [Catalytic activity/Vol] 22 U/L 9 - 39 [facility] Work Phone: [phone] Bilirubin [Mass/Vol] 0.4 mg/dL 0.0 - 1.2 [facility] Work Phone: [phone] Calcium [Mass/Vol] 9.4 mg/dL 8.6 - 10.3 [facility] Work Phone: [phone] Chloride [Moles/Vol] 102 mmol/L 98 - 107 [facility] Work Phone: [phone] CO2 [Moles/Vol] 28 mmol/L 21 - 32 [facility] Work Phone: [phone] Creatinine [Mass/Vol] 0.93 mg/dL See Below [facility] Work Phone: [phone] Comment on above: Reference Range: 0.5 0 - 1.05 Glucose [Mass/Vol] 92 mg/dL 74 - 99 [facility] Work Phone: [phone] Potassium [Moles/Vol] 3.8 mmol/L 3.5 - 5.3 [facility] Work Phone: [phone] Protein [Mass/Vol] 7.8 g/dL 6.4 - 8.2 [facility] Work Phone: [phone] Sodium [Moles/Vol] 139 mmol/L 136 - 145 [facility] Work Phone: [phone] Urea nitrogen [Mass/Vol] 16 mg/dL 6 - 23 [facility] Work Phone: [phone] Laboratory - Coagulationon 0 08-22-2022 INR Coag (PPP) [Relative time] 1.1 {INR} 0.9 - 1.1 [facility] Work Phone: [phone] PT Coag (PPP) [Time] 12.6 s 9.8 - 13.4 [facility] Work Phone: [phone] MAGNESIUMon 08-22-2022 Magnesium [Mass/Vol] 2.05 mg/dL Normal 1.60 - 2.40 [facility] Comment on above: Performed By: #### M G #### [address] [phone] Magnesium, Serumon Magnesium [Mass/Vol] 2.05 mg/dL See Below [facility] Work Phone: [phone] Comment on above: Reference Range: 1.6 0 - 2.40 No Panel Informationon 08-22 73 {mL/min/1.73m2} >90 [facility] Work Phone: [phone] Comment on above: CALCULATIONS OF LINDSEY MATED GFR ARE PERFORMED USING THE 2020 CKD-EPI STUDY REFIT EQUATION WITHOUT THE RACE VARIABLE FOR THE IDMS-TRACEABLE CREATININE METHODS.https://jasn.asnjournals.org/content/early/ASN. 8535227276 https://[facility] – [place] CITY[place]PRDWE B01:808 0/musescripts/museweb.dll?R etrieveTestByDateTime?Patie gdRX=[id number]&Date= 023&Time=14%3a40%3a33%3a00& TestType=ECG&Site=11&Output Type=PDF&Ext=PDF [facility] Work Phone: [phone] sinus rhythm with fr equent PAC's in a pattern of atrial bigeminy [facility] Work Phone: [phone] [facility] Work Phone: [phone] [facility] Work Phone: [phone] [facility] Work Phone: [phone] [facility] Work Phone: [phone] [facility] Work Phone: [phone] [facility] Work Phone: [phone] [facility] Work Phone: [phone] [facility] Work Phone: [phone] [facility] Work Phone: [phone] [facility] Work Phone: [phone] [facility] Work Phone: Order Reconciliationon 08-22 Order [...] Aspirin Low Dose 81 orally once a [id number] Aspirin Chewable Tablet, ChewableDOSE = 81 mg [...] milliliter(s) injectable once a day, As Needed [id number] Reviewed and Held ferrous sulfate 200 mg (65 mg elemental iron) oral tablet 2 tab(s) orally once a [id number] Reviewed and Held metoprolol succinate 25 mg oral tablet, extended release 1 tab(s) orally once a [id number] Reviewed and Held Multiple Vitamins oral tablet 1 tab(s) orally once a [id number] Reviewed and Held omeprazole 40 mg oral delayed release capsule 1 cap(s) orally once a day 22-Aug-2022 Pantoprazole Enteric Coated Tablet (PROTONIX)DOSE = 40 mg Oral Dailyomeprazole 40 mg oral delayed release capsule continued as the inpatient order Pantoprazole sertraline 50 mg oral tablet 1 tab(s) orally once a [id number] Sertraline Tablet (ZOLOFT)DOSE = 50 mg Oral Dailysertraline 50 mg oral tablet continued as the inpatient order Sertraline solifenacin 5 mg oral tablet 1 tab(s) orally once a [id number] Reviewed and Held Vitamin D3 1000 intl [...] HoursClinician Notes: One now then 0900 and 2099 Metoprolol Succinate Extended Release Tablet, Extended Release (TOPROL-XL)DOSE = 25 mg Oral At BedtimeClinician Notes: hold for HR less than 50 BPM or SBP less than 90 mmhg Sodium Chloride 0.9% Injectable Flush via Peripheral LineVolume = 10 mL IntraVenous Flush Every 8 Hours and as Needed Normal [facility] PT/INRon 08-22-2022 PT Coag (PPP) [Time] 12.6 s Normal 9.8 - 13.4 [facility] Comment on above: Performed By: #### [facility] #### [address] [id number] PT, INR 1.1 Normal 0.9 - 1.1 [facility] Comment on above: Performed By: #### T [facility] #### [address] [id number] Provider Note - ED v3on Provider Note [...] results: Troponin I, High Sensitivity Trending View [id number] 16:27:00 22-Aug-2022 15:09:00 Troponin I, High Sensitivity3 [...] Authorization (EUA) and has been verified by [facility]. This test is only authorized for the duration of time that circumsta Complete Blood Count + Differential 22-Aug-2022 15:09:00 ResultValue White Blood Cell Count 10.4 Red Blood Cell Count 4.58 HGB 14.6 HCT 42.8 MCV 93 MCHC 34.1 PLT 285 RDW-CV 12.4 Neutrophil % 67.1 Immature Granulocytes % 0.4 Lymphocyt (more content not included)... Normal [facility] Radiologyon 08-22-2022 XR Chest Single view Normal [facility] Work Phone: TROPONIN I, HIGH SENSITIVITY on 08-22-2022 TROPONIN I, HIGH SENSITIVITY 3 ng/L Normal 0 - 13 [facility] Comment on above: Result Comment: . [...] performed using a different testing methodology at [facility] than at [facility]. Direct result comparisons should only be made within the same method. Performed By: #### [facility] #### [address] [phone] Tropinin I.cardiac panel High sensitivity method 3 ng/L 0 - 13 [facility] Work Phone: Comment on above: .Less [...] performed using a different testing methodology at [facility] than at [facility]. Direct result comparisons should only be made within the same method. TROPONIN I, HIGH SENSITIVITY 3 ng/L Normal 0 - 13 [facility] Comment on above: Result Comment: . [...] performed using a different testing methodology at [facility] than at [facility]. Direct result comparisons should only be made within the same method. Performed By: #### M G #### [address] [id number] TROPONIN I, HIGH SENSITIVITY 3 ng/L Normal 0 - 13 [facility] Comment on above: Result Comment: . [...] performed using a different testing methodology at [facility] than at [facility]. Direct result comparisons should only be made within the same method. Performed By: #### [facility] #### [address] [id number] Tropinin I.cardiac panel High sensitivity method 3 ng/L 0 - 13 [facility] Work Phone: Comment on above: .Less [...] performed using a different testing methodology at [facility] than at other [facility]. Direct result comparisons should only be made within the same method. Tropinin I.cardiac panel High sensitivity method 3 ng/L 0 - 13 [facility] Work Phone: Comment on above: .Less [...] performed using a different testing methodology at [facility] than at other [facility]. Direct result comparisons should only [...] obeys commands Best Verbal Response: (V5) oriented Greenwood Score: 15 Allergies: yes Patient has homicidal [...] patient cognitively impaired not cognitively impaired Interventions: Barbara Fall Interventions: LOW INTERVENTIONS: *patient oriented to [...] Medical History Reviewedyes Electronic Signatures: Michelle Herrera (RN) (Signed 22-Aug-2022 14:49) Entered: Risk Screens, Pain, ABCD, Travel History, Chart Review, Scores, Past Medical History Authored: Quick Triage, Risk Screens, Pain, ABCD, Travel History, Chart Review, Scores, Past Medical History Last Updated: 22-Aug-2022 14:49 by Michelle Herrera (RN) Normal [facility] Office Visit (Cardiology)on 08-18-2022 Follow-up visit [...] Use Screening; Status:Complete; Done: 18Aug2022 Patient Instructions [email or web address] BRING ALL MEDICATIONS IN ORIGINAL BOTTLES TO EVERY APPOINTMENT!!!!!! Michelle Hernandez LPN, am scribing for and in the [...] [facility]. If you have not received an invite via your email then call Patient Portal support . They are available Sunday through Sunday, 8 a.m.-8 p.m. Michell Hernandez CMA am scribing for and in the presence of Dr. Federico Wing The documentation recorded by Michell Rodas CMA acting as Scribe, in my presence, accurately and completely reflects the service(s) I personally performed and the decision made by me. 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 (more content not included)... Normal [facility] Tobacco Screening.on 023 Adult depression screening assessment No [facility] [employer] DO Work Phone: Fall risk assessment a) No falls within the last year [facility] [employer] DO Work Phone: Tobacco use status [facility] b) No [facility] DO Work Phone: CARDIAC ELIA 3-6on 3 CK [Catalytic activity/Vol] 110 U/L Normal 26-192 [facility] Comment on above: Performed By: #### B JASBIR MG #### [facility] [address] [place], [place] [address] Dr. Betsy Velazquez CK.MB [Mass/Vol] 1.74 ng/mL Normal <=3.60 [facility] Comment on above: Performed By: #### B JASBIR MG #### [facility] [address] [place] [address] [address] Betsy Velazquez HSTROP 6.3 pg/mL Normal 4.0-51.3 [facility] Comment on above: Result Comment: CUT- OFF POINTS HAVE BEEN ESTABLISHED BASED ON THE FOURTH UNIVERSAL DEFINITIONS OF MYOCARDIAL INFARCTION. THE UPPER REFERENCE LIMIT (URL) OF TROPONIN, DEFINED THE 99TH PERCENTILE OF cTnI DISTRIBUTION IN A REFERENCE POPULATION, HAS BEEN CONFIRMED THE DECISION THRESHOLD FOR [place] DIAGNOSIS. Performed By: #### B MP, MG #### [facility] [address] [place] [address] [address] Betsy Velazquez CK [Catalytic activity/Vol] 123 U/L Normal 26-192 [facility] Comment on above: Performed By: #### C MREP #### [facility] [address] [place] [address] Dr. Betsy Velazquez CK.MB [Mass/Vol] 1.90 ng/mL Normal <=3.60 [facility] Comment on above: Performed By: #### C MREP #### [facility] [address] [place] [address] [address] Betsy Velazquez HSTROP 5.9 pg/mL Normal 4.0-51.3 [facility] Comment on above: Result Comment: CUT- OFF POINTS HAVE BEEN ESTABLISHED BASED ON THE FOURTH UNIVERSAL DEFINITIONS OF MYOCARDIAL INFARCTION. THE UPPER REFERENCE LIMIT (URL) OF TROPONIN, DEFINED THE 99TH PERCENTILE OF cTnI DISTRIBUTION IN A REFERENCE POPULATION, HAS BEEN CONFIRMED THE DECISION THRESHOLD FOR [place] DIAGNOSIS. Performed By: #### C MREP #### [facility] [address] [place] [address] [address] Betsy Velazquez CBC AUTO DIFFon 06-29-2022 BASO # 0.1 103/ul Normal 0.0-0.1 [facility] Comment on above: Performed By: #### C BC #### [facility] [address] [place] [address] Dr. Betsy Velazquez Basophils/100 WBC (Bld) 0.7 % Normal 0.2-2.0 [facility] Comment on above: Performed By: #### C BC #### [facility] [address] [place] [address] Dr. Betsy Velazquez EO # 0.1 103/ul Normal 0.0-0.7 [facility] Comment on above: Performed By: #### C BC #### [facility] [address] [place] [address] Dr. Betsy Velazquez Eosinophils/100 WBC (Bld) 1.4 % Normal 0.9-7.0 [facility] Comment on above: Performed By: #### C BC #### [facility] [address] [place] [address] Dr. Betsy Velazquez Erythrocyte distribution width (RBC) [Ratio] 12.8 % Normal 11.0-15.0 [facility] Comment on above: Performed By: #### C BC #### [facility] [address] [place] [address] Dr. Betsy Velazquez Hematocrit (Bld) [Volume fraction] 41.4 % Normal 36.0-48.0 [facility] Comment on above: Performed By: #### C BC #### [facility] [address] [place] [address] Dr. Betsy Velazquez Hemoglobin (Bld) [Mass/Vol] 13.4 g/dL Normal 12.0-16.0 [facility] Comment on above: Performed By: #### C BC #### [facility] [address] [place] [address] Dr. Betsy Velazquez IG # 0.04 10e3/ul Critically high 0.00-0.03 [facility] Comment on above: Performed By: #### C BC #### [facility] [address] [place] [address] Dr. Betsy Velazquez IG % 0.4 % Normal 0.0-0.5 [facility] Comment on above: Performed By: #### C BC #### [facility] [address] [place] [address] Dr. Betsy Velazquez LYMPH # 2.6 103/ul Normal 1.2-3.8 [facility] Comment on above: Performed By: #### C BC #### [facility] [address] [place] [address] Dr. Betsy Velazquez Lymphocytes/100 WBC (Bld) 26.5 % Normal 20.5-60.0 [facility] Comment on above: Performed By: #### C BC #### [facility] [address] [place] [address] Dr. Betsy Velazquez MANUAL DIFF REQ NO Normal [facility] Comment on above: Performed By: #### C BC #### [facility] [address] [place] [address] Dr. Betsy Velazquez MCH (RBC) [Entitic mass] 31.5 pg Normal 26.7-34.0 [facility] Comment on above: Performed By: #### C BC #### [facility] [address] [place] [address] Dr. Betsy Velazquez MCHC (RBC) [Mass/Vol] 32.4 g/dL Normal 29.9-35.2 [facility] Comment on above: Performed By: #### C BC #### [facility] [address] [place] [address] Dr. Betsy Velazquez MCV (RBC) [Entitic vol] 97.2 fL Normal 81.0-99.0 [facility] Comment on above: Performed By: #### C BC #### [facility] [address] [place] [address] Dr. Betsy Velazquez MONO # 0.8 103/ul Normal 0.3-0.8 [facility] Comment on above: Performed By: #### C BC #### [facility] [address] [place] [address] Dr. Betsy Velazquez Monocytes/100 WBC (Bld) 7.6 % Normal 1.7-12.0 [facility] Comment on above: Performed By: #### C BC #### [facility] [address] [place] [address] Dr. Betsy Velazquez NEUT # 6.3 103/ul Normal 1.4-6.5 [facility] Comment on above: Performed By: #### C BC #### [facility] [address] [place] [address] Dr. Betsy Velazquez Neutrophils/100 WBC (Bld) 63.4 % Normal 43.0-75.0 [facility] Comment on above: Performed By: #### C BC #### [facility] [address] [place] [address] [address] Betsy Velazquez Platelet mean volume (Bld) [Entitic vol] 11.3 fL Normal 9.5-13.5 [facility] Comment on above: Performed By: #### C BC #### [facility] [address] [place] [address] Dr. Betsy Velazquez PLT 258 103/ul Normal 150-450 [facility] Comment on above: Performed By: #### C BC #### [facility] [address] [place] [address] Dr. Betsy Velazquez RBC 4.26 106/ul Normal 4.20-5.40 [facility] Comment on above: Performed By: #### C BC #### [facility] [address] [place] [address] Dr. Betsy Velazquez WBC 10.0 103/ul Normal 4.0-11.0 [facility] Comment on above: Performed By: #### C BC #### [facility] [address] [place] [address] Dr. Betsy Velazquez Covid-19 PCR ([facility])on 06-18 SARS-CoV-2 (COVID-19) RNA REYNALDO+probe Ql (Unsp spec) Not detected Normal NOT DETECTED [facility] Comment [...] for this test is supported by the [place] of Health and Human Service's declaration that [...] longer be used). Performed By: #### C [facility] #### [facility] [address] [place] [address] Dr. Betsy Velazquez ECHO LIMITED STUDYon 023 ECHO LIMITED STUDY Patient: SARAH HANNA Exam Date: 06/29/2022 : 1970 Gender:F Ordering : BONY SOLARES Admission #: [id number] Family : KAYLA DENT Order #: [id number] CLICK HERE TO VIEW EXAM ECHOCARDIOGRAM REPORT [...] A1Con 2022 ADA RECOMMENDATION SEE BELOW Normal [facility] Comment on above: Result Comment: ADA RECOMMENDED LIMIT 4.0 - 6.0 ADA THERAPEUTIC TARGET < 7.0 ACTION SUGGESTED > 7.0 Performed By: #### B MP, MG #### [facility] [address] [place] [address] Dr. Betsy Velazquez Glucose [Mass/Vol] 120 mg/dL Normal [facility] Comment on above: Performed By: #### B MP, MG #### [facility] [address] [place] [address] Dr. Betsy Velazquez HbA1c (Bld) [Mass fraction] 5.8 % Normal 4.5-6.2 [facility] Comment on above: Performed By: #### B MP, MG #### [facility] [address] [place] [address] Dr. Betsy Velazquez LIPID PROFILEon 06-29-2022 CHOL-HDL RATIO NORM SEE BELOW Normal [facility] Comment on above: Result Comment: 3.3 - 4.4 LOW RISK 4.4 - 7.1 AVERAGE RISK 7.1 - 11.0 MODERATE RISK >11.0 HIGH RISK Performed By: #### L IPID, TSH #### [facility] [address] [place] [address] [address] Betsy Velazquez Cholesterol [Mass/Vol] 168 mg/dL Normal <=200 [facility] Comment on above: Performed By: #### L IPID, TSH #### [facility] [address] [place] [address] Dr. Betsy Velazquez Cholesterol in HDL [Mass/Vol] 55 mg/dL Normal 40-60 [facility] Comment on above: Performed By: #### L IPID, TSH #### [facility] [address] [place] [address] [address] Betsy Velazquez Cholesterol in LDL [Mass/Vol] 97.0 mg/dL Normal [facility] Comment on above: Performed By: #### L IPID, TSH #### [facility] [address] [place] [address] Dr. Betsy Velazquez Cholesterol.total/C holesterol in HDL [Mass ratio] 3.1 {ratio} Normal [facility] Comment on above: Performed By: #### L IPID, TSH #### [facility] [address] [address] [address] Betsy Velazquez HDL NORMAL > or = 60 mg/dl - LO W CARDIOVASCULAR RISK <40 mg/dl - HIGH CARDIOVASCULAR RISK Normal [facility] Comment on above: Performed By: #### L IPID, TSH #### [facility] [address] [place] [address] Dr. Betsy Velazquez LDL CALC NORMAL SEE BELOW Normal [facility] Comment on above: Result Comment: <100 mg/dl OPTIMAL 100 - 129 mg/dl NEAR OR ABOVE OPTIMAL 130 - 159 mg/dl BORDERLINE HIGH 160 - 189 mg/dl HIGH >190 mg/dl VERY HIGH Performed By: #### L IPID, TSH #### [facility] [address] [place] [address] Dr. Betsy Velazquez Triglyceride [Mass/Vol] 80 mg/dL Normal <=150 [facility] Comment on above: Performed By: #### L IPID, TSH #### [facility] [address] [place] [address] Dr. Betsy Velazquez VLDL CALC 16.0 mg/dL Normal [facility] Comment on above: Performed By: #### L IPID, TSH #### [facility] [address] [place] [address] Dr. Betsy Velazquez MAGNESIUMon 06-29-2022 Magnesium [Mass/Vol] 2.1 mg/dL Normal 1.8-2.4 [facility] Comment on above: Performed By: #### B MP, MG #### [facility] [address] [address] [address] Betsy Velazquez PROF CHEM 8 (BAS METB)on Anion gap [Moles/Vol] 10.8 mmol/L Normal [facility] Comment on above: Performed By: #### B MP, MG #### [facility] [address] [place] [address] Dr. Betsy Velazquez Calcium [Mass/Vol] 9.0 mg/dL Normal 8.5-10.1 [facility] Comment on above: Performed By: #### B MP, MG #### [facility] [address] [place] [address] Dr. Betsy Velazquez Chloride [Moles/Vol] 104 mmol/L Normal 98-107 [facility] Comment on above: Performed By: #### B MP, MG #### [facility] [address] [place] [address] Dr. Betsy Velazquez CO2 [Moles/Vol] 28.1 mmol/L Normal 21.0-32.0 [facility] Comment on above: Performed By: #### B MP, MG #### [facility] [address] [place] [address] Dr. Betsy Velazquez Creatinine [Mass/Vol] 0.86 mg/dL Normal 0.55-1.02 [facility] Comment on above: Performed By: #### B MP, MG #### [facility] [address] [place] [address] Dr. Betsy Velazquez EGFR-AF MALTESE >60 Normal >=60 [facility] Comment on above: Performed By: #### B MP, MG #### [facility] [address] [place] [address] Dr. Betsy Velazquez EGFR-NON AF MALTESE >60 Normal >=60 [facility] Comment on above: Performed By: #### B MP, MG #### [facility] [address] [place] [address] Dr. Betsy Velazquez Glucose [Mass/Vol] 111 mg/dL Critically high 74-106 T [facility] Comment on above: Performed By: #### B MP, MG #### [facility] [address] [address] [address] Betsy Velazquez Potassium [Moles/Vol] 3.9 mmol/L Normal 3.5-5.1 [facility] Comment on above: Performed By: #### B MP, MG #### [facility] [address] [address] [address] Betsy Velazquez Sodium [Moles/Vol] 139 mmol/L Normal 136-145 [facility] Comment on above: Performed By: #### B MP, MG #### [facility] [address] [address] [address] Betsy Velazquez Urea nitrogen [Mass/Vol] 18.0 mg/dL Normal 7.0-18.0 [facility] Comment on above: Performed By: #### B MP, MG #### [facility] [address] [place] [address] Dr. Betsy Velazquez Urea nitrogen/Creatinine [Mass ratio] 20.9 mg/mg Normal [facility] Comment on above: Performed By: #### B MP, MG #### [facility] [address] [address] [address] Betsy Velazquez TSHon 06-29-2022 TSH 1.981 uIU/mL Normal 0.358-3.740 [facility] Comment on above: Performed By: #### L IPID, TSH #### [facility] [address] [place] [address] Dr. Betsy Velazquez XR CHEST 1 Von [...] MARKO GARY Date: 2022-06-28 22:50 Normal [facility] CARDIAC ELIA ADMITon 023 CK [Catalytic activity/Vol] 149 U/L Normal 26-192 [facility] Comment on above: Performed By: #### B MP, MG #### [facility] [address] [place] [address] Dr. Betsy Velazquez CK.MB [Mass/Vol] 2.34 ng/mL Normal <=3.60 [facility] Comment on above: Performed By: #### B MP, MG #### [facility] [address] [place] [address] Dr. eBtsy Velazquez HSTROP 5.5 pg/mL Normal 4.0-51.3 [facility] Comment on above: Result Comment: CUT- OFF POINTS HAVE BEEN ESTABLISHED BASED ON THE FOURTH UNIVERSAL DEFINITIONS OF MYOCARDIAL INFARCTION. THE UPPER REFERENCE LIMIT (URL) OF TROPONIN, DEFINED THE 99TH PERCENTILE OF cTnI DISTRIBUTION IN A REFERENCE POPULATION, HAS BEEN CONFIRMED THE DECISION THRESHOLD FOR [place] DIAGNOSIS. Performed By: #### B MP, MG #### [facility] [address] [place] [address] Dr. Betsy Velazquez CHRISTOPHER 50 ng/mL Normal 9-82 [facility] Comment on above: Performed By: #### B MP, MG #### [facility] [address] [place] [address] Dr. Betsy Velazquez CBC AUTO DIFFon 06-28-2022 BASO # 0.1 103/ul Normal 0.0-0.1 [facility] Comment on above: Performed By: #### C BC #### [facility] [address] [place] [address] Dr. Betsy Velazquez Basophils/100 WBC (Bld) 0.6 % Normal 0.2-2.0 [facility] Comment on above: Performed By: #### C BC #### [facility] [address] [place] [address] Dr. Betsy Velazquez EO # 0.2 103/ul Normal 0.0-0.7 [facility] Comment on above: Performed By: #### C BC #### [facility] [address] [place] [address] Dr. Betsy Velazquez Eosinophils/100 WBC (Bld) 2.0 % Normal 0.9-7.0 [facility] Comment on above: Performed By: #### C BC #### [facility] [address] [place] [address] Dr. Betsy Velazquez Erythrocyte distribution width (RBC) [Ratio] 12.8 % Normal 11.0-15.0 [facility] Comment on above: Performed By: #### C BC #### [facility] [address] [place] [address] Dr. Btesy Velazquez Hematocrit (Bld) [Volume fraction] 41.8 % Normal 36.0-48.0 [facility] Comment on above: Performed By: #### C BC #### [facility] [address] [place] [address] Dr. Betsy Velazquez Hemoglobin (Bld) [Mass/Vol] 13.8 g/dL Normal 12.0-16.0 [facility] Comment on above: Performed By: #### C BC #### [facility] [address] [place] [address] Dr. Betsy Velazquez IG # 0.04 10e3/ul Critically high 0.00-0.03 [facility] Comment on above: Performed By: #### C BC #### [facility] [address] [place] [address] Dr. Betsy Velazquez IG % 0.3 % Normal 0.0-0.5 [facility] Comment on above: Performed By: #### C BC #### [facility] [address] [place] [address] Dr. Betsy Velazquez LYMPH # 3.1 103/ul Normal 1.2-3.8 [facility] Comment on above: Performed By: #### C BC #### [facility] [address] [place] [address] Dr. Betsy Velazquez Lymphocytes/100 WBC (Bld) 26.9 % Normal 20.5-60.0 [facility] Comment on above: Performed By: #### C BC #### [facility] [address] [place] [address] Dr. Betsy Velazquez MANUAL DIFF REQ NO Normal [facility] Comment on above: Performed By: #### C BC #### [facility] [address] [place] [address] Dr. Betsy Velazquez MCH (RBC) [Entitic mass] 31.4 pg Normal 26.7-34.0 [facility] Comment on above: Performed By: #### C BC #### [facility] [address] [place] [address] Dr. Betsy Velazquez MCHC (RBC) [Mass/Vol] 33.0 g/dL Normal 29.9-35.2 [facility] Comment on above: Performed By: #### C BC #### [facility] [address] [address] [address] Betsy Velazquez MCV (RBC) [Entitic vol] 95.2 fL Normal 81.0-99.0 [facility] Comment on above: Performed By: #### C BC #### [facility] [address] [place] [address] Dr. Betsy Velazquez MONO # 0.9 103/ul Critically high 0.3-0.8 [facility] Comment on above: Performed By: #### C BC #### [facility] [address] [place] [address] Dr. Betsy Velazquez Monocytes/100 WBC (Bld) 7.8 % Normal 1.7-12.0 [facility] Comment on above: Performed By: #### C BC #### [facility] [address] [place] [address] Dr. Betsy Velazquez NEUT # 7.2 103/ul Critically high 1.4-6.5 [facility] Comment on above: Performed By: #### C BC #### [facility] [address] [place] [address] Dr. Betsy Velazquez Neutrophils/100 WBC (Bld) 62.4 % Normal 43.0-75.0 [facility] Comment on above: Performed By: #### C BC #### [facility] [address] [place] [address] Dr. Betsy Velazquez Platelet mean volume (Bld) [Entitic vol] 11.1 fL Normal 9.5-13.5 [facility] Comment on above: Performed By: #### C BC #### [facility] [address] [place] [address] Dr. Betsy Velazquez PLT 272 103/ul Normal 150-450 [facility] Comment on above: Performed By: #### C BC #### [facility] [address] [place] [address] Dr. Betsy Velazquez RBC 4.39 106/ul Normal 4.20-5.40 [facility] Comment on above: Performed By: #### C BC #### [facility] [address] [place] [address] Dr. Betsy Velazquez WBC 11.6 103/ul Critically high 4.0-11.0 [facility] Comment on above: Performed By: #### C BC #### [facility] [address] [place] [address] Dr. Betsy Velazquez PROF CHEM 8 (BAS METB)on Anion gap [Moles/Vol] 12.8 mmol/L Normal [facility] Comment on above: Performed By: #### B MP, MG #### [facility] [address] [place] [address] Dr. Betsy Velazquez Calcium [Mass/Vol] 9.4 mg/dL Normal 8.5-10.1 [facility] Comment on above: Performed By: #### B MP, MG #### [facility] [address] [place] [address] Dr. Betsy Velazquez Chloride [Moles/Vol] 102 mmol/L Normal 98-107 [facility] Comment on above: Performed By: #### B MP, MG #### [facility] [address] [place] [address] Dr. Betsy Velazquez CO2 [Moles/Vol] 25.7 mmol/L Normal 21.0-32.0 [facility] Comment on above: Performed By: #### B MP, MG #### [facility] [address] [place] [address] Dr. Betsy Velazquez Creatinine [Mass/Vol] 1.03 mg/dL Critically high 0.55-1.02 [facility] Comment on above: Performed By: #### B MP, MG #### [facility] [address] [address] [address] Betsy Velazquez EGFR-AF MALTESE >60 Normal >=60 [facility] Comment on above: Performed By: #### B MP, MG #### [facility] [address] [place] [address] Dr. Betsy Velazquez EGFR-NON AF MALTESE 56 mL/min/1.73m2 Critically low >=60 [facility] Comment on above: Performed By: #### B MP, MG #### [facility] [address] [address] [address] Betsy Velazquez Glucose [Mass/Vol] 93 mg/dL Normal 74-106 [facility] Comment on above: Performed By: #### B MP, MG #### [facility] [address] [place] [address] Dr. Betsy Velazquez Potassium [Moles/Vol] 3.5 mmol/L Normal 3.5-5.1 [facility] Comment on above: Performed By: #### B MP, MG #### [facility] [address] [place] [address] Dr. Betsy Velazquez Sodium [Moles/Vol] 137 mmol/L Normal 136-145 [facility] Comment on above: Performed By: #### B MP, MG #### [facility] [address] [place] [address] Dr. Betsy Velazquez Urea nitrogen [Mass/Vol] 21.0 mg/dL Critically high 7.0-18.0 [facility] Comment on above: Performed By: #### B MP, MG #### [facility] [address] [place] [address] Dr. Betsy Velazquez Urea nitrogen/Creatinine [Mass ratio] 20.4 mg/mg Normal [facility] Comment on above: Performed By: #### B MP, MG #### [facility] [address] [place] [address] Dr. Betsy Velazquez DIGITAL DIAG MAMM BILAT WITH TOMOon 12-28-2021 DIGITAL DIAG MAMM BILAT WITH MASON Patient Name: RASHEEDA NICHOLE STUDY: DIGITAL DIAG MAMM BILAT WITH MASON; BREAST ULTRASOUND; 12/28/2021 9:31 am; 12/28/2021 9:59 am ACCESSION NUMBER(S): [id number]; [id number] ORDERING CLINICIAN: BARBARA HARRY INDICATION: breast lump [...] any future breast imaging appointments, please call [phone] ([phone]). Electronically signed by: ELIA RON MD Normal [facility] Radiologyon 12-28-2021 MG Breast Diagnostic Normal [facility] Work Phone: ULTRASOUND LIMITED BREASTon 12-28-2021 ULTRASOUND LIMITED BREAST Patient Name: RASHEEDA NICHOLE STUDY: DIGITAL DIAG MAMM BILAT WITH MASON; BREAST ULTRASOUND; 12/28/2021 9:31 am; 12/28/2021 9:59 am ACCESSION NUMBER(S): [id number]; [id number] ORDERING CLINICIAN: BARBARA HARRY INDICATION: breast lump [...] any future breast imaging appointments, please call [phone] ([phone]). Electronically signed by: ELIA RON MD Normal [facility] Ultrasound Limited [place] 12-28-2021 MG Breast Screening Normal [facility] Work Phone: Office Visit (Cardiology)on 12-21-2021 Follow-up visit Diagnoses/Problems Assessed Obesity (BMI 35.0-39.9 without comorbidity) (278.00) (E66.9) Orders Obesity (BMI 35.0-39.9 without comorbidity) Healthy Weight Tips; Status:Complete - Retrospective Authorization; Done: [id number] Some eating tips that can help you lose weight.; Status:Complete - Retrospective Authorization; Done: [id number] Patient Instructions FOLLOW UP NEEDED ONLY YOUR [...] Tubal ligation bilateral 1995 History of [place] tooth extraction Past Medical History Problems Colon [...] 1 TABLET DAILY. Vitamin D3 50 MCG (2000 UT) O (more content not included)... Normal [employer] Tobacco Screening.on 022 Adult depression screening assessment No [facility] [employer] [address] DO Work Phone: Tobacco use status [facility]PH[facility] b) No [facility] [employer] [facility] DO Work Phone: Office Visiton 11-22-2021 Follow-up visit Diagnoses/Problems Screening breast examination (V76.10) (Z12.39) Breast lump on right side at 12 o'clock position (611.72) (N63.15) Orders Breast lump on right side at 12 o'clock position Mamm Digital Diagnostic Mammography Unilateral Right; Status:Active; Requested for:30Nov2021; Patient is scheduled for 11-30-21 @ 1:30pm at [facility]. Thank you. Laterality : Right Radiologist to Determine Optimal Study : Y What are the patient's signs and symptoms? : breast lump Screening breast examination Mamm - Screening Mammogram; Status:Active; Requested for:22Nov2021; Patient is scheduled at [facility] on 11-30-21. Thank you. Indications for MAMM [...] History of Cholecystectomy 2016 History of Tubal (more content not included)... Normal [employer] Tobacco Screening.on 022 Fall risk assessment a) No falls within the last year [facility] [employer] Work Phone: Tobacco use status [facility] b) No [facility] Work Phone: PHQ-2 VITALSon 07-12-2021 Adult depression screening assessment Negative [facility] [employer] Work Phone: Fall risk assessment a) No falls within the last year [facility] [employer] Work Phone: Tobacco use status [facility] b) No [facility] Work Phone: Tobacco Screening.on Fall risk assessment a) No falls within the last year [facility] [facility] DO Work Phone: Tobacco use status [facility]S b) No [facility] 127 DO Work Phone: Laboratory - Microbiology an d Antimicrobial susceptibilityon 06-14-2021 SARS-CoV-2 (COVID-19) RNA REYNALDO+probe Ql (Unsp spec) Pass Normal Pass [facility] Work Phone: No Panel Informationon 06-14 NO Normal [facility] Work Phone: YES Normal [facility] Work Phone: Unknown Normal [facility] Work Phone: Not detected Normal Not Detected [facility] Work Phone: Comment on above: This test result jakob uld be correlated with clinical presentations and medical history by a healthcare provider to determine its clinical significance.This assay was performed by a reverse transcriptase real-time polymerase chain reaction (rt PCR) method on the [employer] system. This test has been authorized only [...] is terminated or revoked sooner. Nasal Normal [facility] Work Phone: Cardiac Stress Teston 2020 Cardiac Stress Test Please click on the link to view the study images Normal [facility] [facility] DO Work Phone: Cardiac Stress Test [facility] [facility] DO Work Phone: Echocardiogramon 06-07-2021 Echocardiography Please click on the link to view the study images Normal [facility] [facility] DO Work Phone: Hepatic Function Panelon Albumin BCP dye [Mass/Vol] 3.9 g/dL 3.4 - 5.0 [address] [address] DO Work Phone: [phone] ALP [Catalytic activity/Vol] 71 U/L 33 - 110 [address] [address] DO Work Phone: [phone] ALT With P-5'-P [Catalytic activity/Vol] 26 U/L 7 - 45 [address] [address] DO Work Phone: [phone] Comment on above: Patients treated wit h Sulfasalazine may generate falsely decreased results for ALT. AST With P-5'-P [Catalytic activity/Vol] 20 U/L 9 - 39 [address] [address] DO Work Phone: [phone] Bilirubin [Mass/Vol] 0.4 mg/dL 0.0 - 1.2 [address] [address] DO Work Phone: [phone] Bilirubin.direct [Mass/Vol] 0.1 mg/dL 0.0 - 0.3 [address] [address] DO Work Phone: [phone] Protein [Mass/Vol] 7.2 g/dL 6.4 - 8.2 [address] [place] [address] DO Work Phone: [phone] Laboratory - Chemistry and C hemistry - challengeon 05-17-2021 Anion gap [Moles/Vol] 14 mmol/L 10 - 20 [address] [place] [address] DO Work Phone: [phone] Calcium [Mass/Vol] 9.1 mg/dL 8.6 - 10.3 [address] [place] [address] DO Work Phone: [phone] Chloride [Moles/Vol] 102 mmol/L 98 - 107 [address] [place] [address] DO Work Phone: [phone] CO2 [Moles/Vol] 27 mmol/L 21 - 32 [address] [place] [address] DO Work Phone: [phone] Creatinine [Mass/Vol] 0.81 mg/dL See Below [address] [place] [address] DO Work Phone: [phone] Comment on above: Reference Range: 0.5 0 - 1.05 Glucose [Mass/Vol] 93 mg/dL 74 - 99 [facility] [facility] DO Work Phone: [phone] Potassium [Moles/Vol] 4.2 mmol/L 3.5 - 5.3 [facility] DO Work Phone: [phone] Sodium [Moles/Vol] 139 mmol/L 136 - 145 [facility] [address] DO Work Phone: [phone] Urea nitrogen [Mass/Vol] 13 mg/dL 6 - 23 [facility] DO Work Phone: [phone] Laboratory - Hematology and Cell countson 05-17-2021 Erythrocyte distribution width (RBC) [Ratio] 13.2 % [facility] Below [facility] [address] DO Work Phone: [phone] Comment on above: Reference Range: 11. 5 - 14.5 Hematocrit (Bld) [Volume fraction] 39.5 % See Below [facility] DO Work Phone: [phone] Comment on above: Reference Range: 36. 0 - 46.0 Hemoglobin (Bld) [Mass/Vol] 13.2 g/dL See Below [facility] DO Work Phone: [phone] Comment on above: Reference Range: 12. 0 - 16.0 MCHC (RBC) [Mass/Vol] 33.4 g/dL See Below [facility] DO Work Phone: [phone] Comment on above: Reference Range: 32. 0 - 36.0 MCV (RBC) [Entitic vol] 97 fL 80 - 100 [facility] [address] DO Work Phone: [phone] Platelets (Bld) [#/Vol] 247 10*3/uL 150 - 450 [facility] [address] DO Work Phone: [phone] RBC (Bld) [#/Vol] 4.07 {x10E12/L} See Below [facility] [address] [facility] Work Phone: [phone] Comment on above: Reference Range: 4.0 0 - 5.20 WBC (Bld) [#/Vol] 7.8 10*3/uL 4.4 - 11.3 [place] [address] DO Work Phone: Lipid Panelon 05-17-2021 Cholesterol [Mass/Vol] 176 mg/dL 0 - 199 [place] [address] DO Work Phone: Comment on above: . [...] dosing. Cholesterol in HDL [Mass/Vol] 63.0 mg/dL [place] [address] DO Work Phone: Comment on above: . AGE VERY LOW LOW N ORMAL HIGH 0-19 Y < 35 < 40 40-45 ---- 20- 24 Y ---- < 40 >45 ---- >24 Y ---- < 40 40-60 >60. Cholesterol in LDL [Mass/Vol] 96 mg/dL 0 - 99 [place] [address] DO Work Phone: Comment on above: . NEAR BORD AGE LUIS RABLE OPTIMAL HIGH HIGH VERY HIGH 0-19 Y 0 - 109 --- 110-129 >/= 130 ---- 20-24 Y 0 - 119 --- 120-159 >/= 160 ---- >24 Y 0 - 99 100-129 130-159 160-189 >/=190. Cholesterol.total/C holesterol in HDL [Mass ratio] 2.8 {ratio} [place] [address] DO Work Phone: Comment on above: REF VALUESDESIRABLE < 3.4HIGH RISK > 5.0 Triglyceride [Mass/Vol] 87 mg/dL 0 - 149 [place] [address] DO Work Phone: Comment on above: . [...] Lipid Panel 17 mg/dL 0 - 40 [place] [address] DO Work Phone: Magnesium, Serumon Magnesium [Mass/Vol] 1.90 mg/dL See Below [place] [address] DO Work Phone: Comment on above: Reference Range: 1.6 0 - 2.40 No Panel Informationon 05-17 >60 >60 [place] [address] DO Work Phone: Comment on above: CALCULATIONS OF LINDSEY MATED GFR ARE PERFORMED USING THE MDRD STUDY EQUATION FOR THE IDMS-TRACEABLE CREATININE METHODS. CLIN CHEM 2007;53:[id number] T4 - Free Thyroxine, Serumon 05-17-2021 Free T4 [Mass/Vol] 0.90 ng/dL See Below [place] [address] DO Work Phone: Comment on above: Reference Range: 0.6 1 - 1.12 Thyroxine Free testing is performed using different testing methodology at [facility] than at other [facility]. Direct result comparisons should only [...] 05-17-2021 TSH Qn 1.76 m[IU]/L See Below [facility] [facility] DO Work Phone: Comment on above: Reference Range: 0.4 4 - 3.98 TSH testing is performed using different testing methodology at [facility] [facility] than at other [facility]. Direct result comparisons should only be made within the same method. Tobacco Screening.on 021 Fall risk assessment a) No falls within the last year [facility] 127 DO Work Phone: Tobacco use status CPHS b) No [facility] 127 DO Work Phone: HCG, Serum - Qualitativeon 1 06-22-2020 HCG ( test) Ql Negative Negative [facility] Work Phone: No Panel Informationon 04-22 [email or web address]?Ret rieveTestByDateTime?Patient VX=[id number]&Date= 1&Time=06%3a23%3a29%3a00&Te stType=ECG&Site=11&OutputTy pe=PDF&Ext=PDF [facility] Work Phone: Sinus rhythm with pr emature supraventricular complexes [facility] Work Phone: Borderline Abnormal [facility] Work Phone: [phone] [facility] Work Phone: [phone] [facility] Work Phone: 187 1 [facility] Work Phone: 140 1 [facility] Work Phone: [phone] 1 [facility] Work Phone: 14 1 [facility] Work Phone: 46 1 [facility] Work Phone: 68 1 [facility] Work Phone: 51 1 [facility] Work Phone: [phone] 1 [facility] Work Phone: 376 1 [facility] Work Phone: 86 1 [facility] Work Phone: 154 1 [facility] Work Phone: 80 1 [facility] Work Phone: Coronavirus 2019 RNA by PCR, Screening Asymptomticon 04-20-2021 Coronavirus 2019 RNA by PCR, Screening Asymptomtic Not detected Normal See Below [facility] Work Phone: Comment on above: SOURCE: [...] make patient management decisions.Fact sheet for providers: https://www.fda.gov/media/700086/downloadFact sheet for patients: https://www.fda.gov/media/447966/downloadThis test has received FDA Emergency Use Authorization (EUA) and has been verified by [facility] ([facility]). This test is only authorized for the duration of time that circumstances exist to justify the authorization of the emergency use of in vitro diagnostic tests for the detection of SARS-CoV-2 virus and/or diagnosis of COVID-19 infection under section 564(b)(1) of the Act, 21 U.S.C. 360bbb-3(b)(1), unless the authorization is terminated or revoked sooner. [facility] is certified under CLIA-88 as qualified to perform high complexity testing. Testing is performed in the [facility] laboratories located at [address] [place] [address]. LMPon 10-29-2020 Last menstrual period start date 31Aug2020 [facility] Work Phone: No Panel Informationon 10-29 Name RASHEEDA NICHOLE Pathologist: MAGDA LIMON MD Date of Procedure: 10/29/2020 Date Received: 10/29/2020 Date Reported 11/03/2020 Submitting Physician: SALIMA GILMAN M.D. Location: [facility] External # FINAL DIAGNOSIS A. SKIN, [...] and entirely submitted in one cassette. [facility]/11/02/2020 [facility] Department of Pathology [address] [place] [address] erst Work Phone: [facility] Work Phone: Mamm - Screening Mammogram w / Tomosynthesison 06-09-2020 MG Breast screening Interpreted by: THERON SNELL08/10/19 09:10MRN: [id number] Name: RASHEEDA NICHOLE STUDY:DIGITAL SCREENING BILATERAL MAMMOGRAM [...] signed by: THERON VEE 06/09/20 09:10 Normal [facility] Work Phone: Comment on above: ORDER REVISED TO A D IGITAL MAMM SCREENING W/ MASON BY RADIOLOGIST; Original Order Number: [id number] GC + Chlamydia By Amplified Detectionon 01-05-2020 C. trachomatis rRNA REYNALDO+probe Ql (Unsp spec) Negative Negative [facility] A2100 DO Work Phone: N. gonorrhoeae rRNA REYNALDO+probe Ql (Unsp spec) Negative Negative [facility] A2100 DO Work Phone: Comment on above: SOURCE: Genital Otheron 01-05-2020 0 [facility] A2100 DO Work Phone: Comment on above: Interpretation of th e Bronwyn Score0-3.....Normal vaginal microbiota4-6.....Intermediate results7-10....Bacterial vaginosis ABSENT [facility] A2100 DO Work Phone: Negative Negative [facility] A2100 DO Work Phone: Comment on above: SOURCE: Genital Urinalysison 01-05-2020 Yeast LM Ql (Urine sed) ABSENT [facility] A2100 DO Work Phone: Otheron 07-25-2019 Clam IgE Qn (S) <0.35 <0.35 -[facility] erst Work Phone: Comment on above: SEE IMMUNOCAP INTERP .IGE Codfish IgE Qn (S) <0.35 <0.35 [facility] erst Work Phone: Comment on above: SEE IMMUNOCAP INTERP .IGE [place] IgE Qn (S) <0.35 <0.35 -[facility] erst Work Phone: Comment on above: SEE IMMUNOCAP INTERP .IGE Egg white IgE Qn (S) <0.35 <0.35 [facility] Work Phone: Comment on above: SEE IMMUNOCAP INTERP .IGE Lobster IgE Qn (S) 0.56 {KU/L} Abnormal <0.35 [facility] erst Work Phone: Comment on above: SEE IMMUNOCAP INTERP .IGE Milk IgE Qn (S) <0.35 <0.35 [facility] erst Work Phone: Comment on above: SEE IMMUNOCAP INTERP .IGE Peanut IgE Qn (S) <0.35 <0.35 [facility] Work Phone: Comment on above: SEE IMMUNOCAP INTERP .IGE [place] IgE Qn (S) <0.35 <0.35 [facility] Work Phone: Comment on above: SEE IMMUNOCAP INTERP .IGE Scallop IgE Qn (S) <0.35 <0.35 [facility] Work Phone: Comment on above: SEE IMMUNOCAP INTERP .IGE Sesame Seed IgE Qn (S) <0.35 <0.35 [facility] Work Phone: Comment on above: SEE IMMUNOCAP INTERP .IGE Shrimp IgE Qn (S) 0.40 {KU/L} Abnormal <0.35 [facility] Work Phone: Comment on above: SEE IMMUNOCAP INTERP .IGE Soybean IgE Qn (S) <0.35 <0.35 [facility] Work Phone: Comment on above: SEE IMMUNOCAP INTERP .IGE [place] IgE Qn (S) <0.35 <0.35 [facility] Work Phone: Comment on above: SEE IMMUNOCAP INTERP .IGE Wheat IgE Qn (S) <0.35 <0.35 [facility] erst Work Phone: Comment on above: SEE IMMUNOCAP INTERP .IGE SEE COMMENT -[facility] Work Phone: Comment on above: REFERENCE RANGE (IMM UNOCAP) IGE KU/L CLASS INTERPRETATION < 0.35 0 BELOW DETECTION 0.35- 0.69 1 LOW POSITIVE 0.70- 3.49 2 MODERATE POSITIVE 3.50- 17.49 3 HIGH RIONLKAI10.50- 49 4 VERY HIGH FENLLFPP67 - 99 5 VERY HIGH POSITIVE >100 6 VERY HIGH POSITIVE Culture, Throaton 10-30-2018 Culture, Throat OR DERED BY: SARKIS ROGERS SOURCE: Throat Throat COLLECTED: 10/30/18 15:03 ANTIBIOTICS AT KIP.: RECEIVED : 10/30/18 19:13 Culture, Throat FINAL 11/01/18 08:10 Usual respiratory jessica in 48 hours Normal [facility] Comment on above: Performed By: #### C XTHR #### [facility] [address] [place] [id number] Vital Signs Date Time Vital Sign Value Performing Clinician Yamile rojas 2023 16:45-0400 Blood Pressure Location [facility] 2023 16:45-0400 Diastolic blood pressure 60 mm[Hg] [facility] 2023 16:45-0400 Heart rate 64 /min [facility] 2023 16:45-0400 SaO2% (BldA) [Mass fraction] 96 % [facility] 2023 16:45-0400 Systolic blood pressure 116 mm[Hg] [facility] 09-24-2022 04:19-0400 Diastolic blood pressure 58 mm[Hg] Vincent Pan [facility] 09-24-2022 04:19-0400 Heart rate 60 /min Vincent Pan [facility] 09-24-2022 04:19-0400 Respiratory rate 18 /min Vincent Pan [facility] 09-24-2022 04:19-0400 SaO2% (BldA) [Mass fraction] 96 % Vincent Maxim [facility] 09-24-2022 04:19-0400 Systolic blood pressure 114 mm[Hg] Vincent Maxim [facility] 09-24-2022 02:53-0400 Diastolic blood pressure 56 mm[Hg] Vincent Maxim [facility] 09-24-2022 02:53-0400 Heart rate 68 /min Vincent Maxim [facility] 09-24-2022 02:53-0400 Mean blood pressure 70 mm[Hg] Vincent Maxim [facility] 09-24-2022 02:53-0400 Respiratory rate 15 /min Vincent Maxim [facility] 09-24-2022 02:53-0400 SaO2% (BldA) [Mass fraction] 92 % Vincent Maxim [facility] 09-24-2022 02:53-0400 Systolic blood pressure 99 mm[Hg] Vincent Maxim [facility] 09-24-2022 02:19-0400 Blood Pressure Location Vincent Maxim [facility] 09-24-2022 02:19-0400 Diastolic blood pressure 52 mm[Hg] Vincent Maxim [facility] 09-24-2022 02:19-0400 Heart rate 75 /min Vincent Maxim [facility] 09-24-2022 02:19-0400 Mean blood pressure 68 mm[Hg] Vincent Maxim [facility] 09-24-2022 02:19-0400 Respiratory rate 18 /min Vincent Maxim [facility] 09-24-2022 02:19-0400 SaO2% (BldA) [Mass fraction] 95 % Vincent Pan [facility] 09-24-2022 02:19-0400 Systolic blood pressure 101 mm[Hg] Vincent Pan [facility] 09-24-2022 01:07-0400 Blood Pressure Location Vincent Pan [facility] 09-24-2022 01:07-0400 Mean blood pressure 72 mm[Hg] Vincent Pan [facility] 09-23-2022 22:20-0400 Respiratory rate 16 /min Vincent Pan [facility] 09-20-2022 12:24-0400 Body mass index (BMI) [Ratio] 36.48 kg/m2 Kayla Dent [facility] 305 DO Work Phone: 09-20-2022 12:24-0400 Body surface area Derived from formula 1.81 m2 Kayla Dent [facility] 305 DO Work Phone: 09-20-2022 12:24-0400 Body weight 84.73 kg Kayla Dent [facility] 305 DO Work Phone: 09-20-2022 12:24-0400 Diastolic blood pressure 72 mm[Hg] Kayla Dent [facility] 305 DO Work Phone: 09-20-2022 12:24-0400 Heart rate 61 /min Kayla Dent [facility] 305 DO Work Phone: 09-20-2022 12:24-0400 Systolic blood pressure 132 mm[Hg] Kayla Dent [facility] 305 DO Work Phone: 03-14-2023 10:03-0400 Heart rate 64 /min Kayla Monroealonzo Barrette [facility] 300 DO Work Phone: 08-25-2022 14:17-0500 Body temperature 97.88 [degF] Kayla Dent Other Phone: [facility] 08-25-2022 14:17-0500 Diastolic blood pressure 63 mm[Hg] Kayla Dent Other Phone: [facility] 08-25-2022 14:17-0500 Heart rate 69 /min Kayla Barrette Other Phone: [facility] 08-25-2022 14:17-0500 Respiratory rate 16 /min Kayla Dent Other Phone: [facility] 08-25-2022 14:17-0500 SaO2% (BldA) [Mass fraction] 93 % Kayla Dent Other Phone: [facility] 08-25-2022 14:17-0500 Systolic blood pressure 120 mm[Hg] Kayla Barrette Other Phone: [facility] 08-18-2022 10:45-0500 Body height 152.4 cm Kayla Monroealonzo Bar[address] [facility] 300 DO Work Phone: 08-18-2022 10:45-0500 Body mass index (BMI) [Ratio] 36.13 kg/m2 Kayla Monroeeen Dent [facility] 300 DO Work Phone: 08-18-2022 10:45-0500 Body surface area Derived from formula 1.81 m2 Kayla Mon[address]eeen Jailene [facility] 300 DO Work Phone: 08-18-2022 10:45-0500 Body weight 83.92 kg Kayla Monroeeen Jailene [facility] 300 DO Work Phone: 08-18-2022 10:45-0500 Diastolic blood pressure 80 mm[Hg] Kayla Dent [facility] 300 DO Work Phone: 08-18-2022 10:45-0500 Heart rate 50 /min Kayla Dent [facility] 300 DO Work Phone: 08-18-2022 10:45-0500 Systolic blood pressure 134 mm[Hg] Kayla Dent [facility] 300 DO Work Phone: 08-07-2022 09:06-0500 Blood Pressure Location Luna DICKINSON [facility] 08-07-2022 09:06-0500 Diastolic blood pressure 74 mm[Hg] Luna DICKINSON [facility] 08-07-2022 09:06-0500 Heart rate 66 /min Luna DICKINSON [facility] 08-07-2022 09:06-0500 SaO2% (BldA) [Mass fraction] 95 % Luna DICKINSON [facility] 08-07-2022 09:06-0500 Systolic blood pressure 118 mm[Hg] Luna DICKINSON [facility] 07-12-2022 15:48-0500 Blood Pressure Location Skip Carlos [facility] 07-12-2022 15:48-0500 Diastolic blood pressure 70 mm[Hg] Skip Christofferson [facility] 07-12-2022 15:48-0500 Heart rate 69 /min Skip Christofferson [facility] 07-12-2022 15:48-0500 Respiratory rate 18 /min Skip Christofferson [facility] 07-12-2022 15:48-0500 SaO2% (BldA) [Mass fraction] 98 % Skip Galarzaofferson [facility] 07-12-2022 15:48-0500 Systolic blood pressure 112 mm[Hg] Skip Gonzalez [facility] 12-21-2021 10:04-0400 Body height 152.4 cm Salima Gilman Work Phone: [facility] 127 DO Work Phone: 12-21-2021 10:04-0400 Body mass index (BMI) [Ratio] 36.72 kg/m2 Salima Gilman Work Phone: [facility] 127 DO Work Phone: 12-21-2021 10:04-0400 Body surface area Derived from formula 1.82 m2 Salima Kodak Kalina Work Phone: [facility] 127 DO Work Phone: 12-21-2021 10:04-0400 Body weight 85.28 kg Salima Gilman Work Phone: [facility] 127 DO Work Phone: 12-21-2021 10:04-0400 Diastolic blood pressure 70 mm[Hg] Salima Gilman Work Phone: [facility] 127 DO Work Phone: 12-21-2021 10:04-0400 Heart rate 68 /min Salima Spenceese Work Phone: [facility] 127 DO Work Phone: 12-21-2021 10:04-0400 Systolic blood pressure 112 mm[Hg] Salima Kodak Kalina Work Phone: [facility] 127 DO Work Phone: 11-22-2021 15:34-0400 Body height 152.4 cm Salima Candelario Kalina Work Phone: [facility] Work Phone: 11-22-2021 15:34-0400 Body mass index (BMI) [Ratio] 36.72 kg/m2 Salima Recinosabrese Work Phone: [facility] Work Phone: 11-22-2021 15:34-0400 Body surface area Derived from formula 1.82 m2 Salima Recinosabrese Work Phone: [facility] Work Phone: 11-22-2021 15:34-0400 Body temperature 97 [degF] Salima Spenceese Work Phone: [facility] Work Phone: 11-22-2021 15:34-0400 Body weight 85.28 kg Salima Spenceese Work Phone: [facility] Work Phone: 11-22-2021 15:34-0400 Diastolic blood pressure 73 mm[Hg] Salima Spenceese Work Phone: [facility] Work Phone: 11-22-2021 15:34-0400 Heart rate 66 /min Salima Spenceese Work Phone: [facility] Work Phone: 11-22-2021 15:34-0400 SaO2% (BldA) [Mass fraction] 97 % Salima Spenceese Work Phone: [facility] Work Phone: 11-22-2021 15:34-0400 Systolic blood pressure 112 mm[Hg] Salima Spenceese Work Phone: [facility] Work Phone: 07-12-2021 08:30-0500 Body height 152.4 cm Salima Spenceese Work Phone: [facility] Work Phone: 07-12-2021 08:30-0500 Body mass index (BMI) [Ratio] 36.33 kg/m2 Salima Spenceese Work Phone: [facility] Work Phone: 07-12-2021 08:30-0500 Body surface area Derived from formula 1.81 m2 Salima Spenceese Work Phone: [facility] Work Phone: 07-12-2021 08:30-0500 Body temperature 96.4 [degF] Salima Spenceese Work Phone: [facility] Work Phone: 07-12-2021 08:30-0500 Body weight 84.37 kg Salima Spenceese Work Phone: [facility] Work Phone: 07-12-2021 08:30-0500 Diastolic blood pressure 82 mm[Hg] Salima Spenceese Work Phone: [facility] Work Phone: 07-12-2021 08:30-0500 Heart rate 88 /min [facility]ese [facility] Work Phone: 07-12-2021 08:30-0500 Respiratory rate 16 /min Salima Gilman [facility] Work Phone: 07-12-2021 08:30-0500 SaO2% (BldA) [Mass fraction] 98 % Salima Kodak Kalina Work Phone: [facility] Work Phone: 07-12-2021 08:30-0500 Systolic blood pressure 122 mm[Hg] Salima Kodak Kalina Work Phone: [facility] Work Phone: 06-23-2021 13:19-0500 Body height 152.4 cm Salima Kodak Kalina Work Phone: [facility] 127 DO Work Phone: 06-23-2021 13:19-0500 Body mass index (BMI) [Ratio] 35.54 kg/m2 Salima Kodak Kalina Work Phone: [facility] 127 DO Work Phone: 06-23-2021 13:19-0500 Body surface area Derived from formula 1.79 m2 Salima Kodak Kalina Work Phone: [facility] 127 DO Work Phone: 06-23-2021 13:19-0500 Body weight 82.56 kg Salima Kodak Kalina Work Phone: [facility] 127 DO Work Phone: 06-23-2021 13:19-0500 Diastolic blood pressure 78 mm[Hg] Salima Kodak Kalina Work Phone: [facility] 127 DO Work Phone: 06-23-2021 13:19-0500 Heart rate 66 /min Salima Recinosabrese Work Phone: [facility] 127 DO Work Phone: 06-23-2021 13:19-0500 Systolic blood pressure 120 mm[Hg] Salima Recinosabrese Work Phone: [facility] 127 DO Work Phone: 06-07-2021 09:45-0500 65 1 Salima Recinosabrese Work Phone: [facility] 127 DO Work Phone: Comment on above: [id number] 05-11-2021 10:30-0500 Diastolic blood pressure 68 mm[Hg] Salima Recinosabrese Work Phone: [facility] 127 DO Work Phone: 05-11-2021 10:30-0500 Systolic blood pressure 126 mm[Hg] Salima Kodak Kalina Work Phone: [facility] 127 DO Work Phone: 05-11-2021 09:53-0500 Body height 152.4 cm Salimasurseh Spenceese Work Phone: [facility] 127 DO Work Phone: 05-11-2021 09:53-0500 Body mass index (BMI) [Ratio] 35.94 kg/m2 Salima Kodak Kalina Work Phone: [facility] 127 DO Work Phone: 05-11-2021 09:53-0500 Body surface area Derived from formula 1.8 m2 Salimasuresh Recinosabrese Work Phone: [facility] 127 DO Work Phone: 05-11-2021 09:53-0500 Body weight 83.46 kg Salima Kodak Kalina Work Phone: [facility] 127 DO Work Phone: 05-11-2021 09:53-0500 Diastolic blood pressure 82 mm[Hg] Salima Gilman Work Phone: [facility] 127 DO Work Phone: 05-11-2021 09:53-0500 Heart rate 81 /min Salima Gilman Work Phone: [facility] 127 DO Work Phone: 05-11-2021 09:53-0500 Systolic blood pressure 148 mm[Hg] Salima Gilman Work Phone: [facility] 127 DO Work Phone: 10-29-2020 18:09-0400 Body height 152.4 cm Luna Zacarias PA-C [facility] Work Phone: 10-29-2020 18:09-0400 Body mass index (BMI) [Ratio] 34.76 kg/m2 Lunadominic Zacarias PA-C [facility] Work Phone: 10-29-2020 18:09-0400 Body surface area Derived from formula 1.78 m2 Luna Zacarias PA-C [facility] Work Phone: 10-29-2020 18:09-0400 Body temperature 97.5 [degF] Luna Rell PA-C [facility] Work Phone: 10-29-2020 18:09-0400 Body weight 80.74 kg Luna Zacarias PA-C [facility] Work Phone: 10-29-2020 18:09-0400 Diastolic blood pressure 58 mm[Hg] Luna Zacarias PA-C [facility] Work Phone: 10-29-2020 18:09-0400 Heart rate 80 /min Lunadominic Zacarias PA-C [facility] Work Phone: 10-29-2020 18:09-0400 Respiratory rate 16 /min Luna Zacarias PA-C [facility] Work Phone: 10-29-2020 18:09-0400 SaO2% (BldA) [Mass fraction] 98 % Luna Zacarias PA-C [facility] Work Phone: 10-29-2020 18:09-0400 Systolic blood pressure 118 mm[Hg] Luna Zacarias PA-C [facility] Work Phone: 10-29-2020 18:09-0400 3 1 Luna Zacarias PA-C [facility] Work Phone: Comment on above: Para 10-29-2020 16:09-0400 Body height 152.4 cm Salima Spenceese Work Phone: [facility] Work Phone: 10-29-2020 16:09-0400 Body mass index (BMI) [Ratio] 34.76 kg/m2 Salima Spenceese Work Phone: [facility] Work Phone: 10-29-2020 16:09-0400 Body surface area Derived from formula 1.78 m2 Salima Spenceese Work Phone: [facility] Work Phone: 10-29-2020 16:09-0400 Body temperature 97.5 [degF] Salima Spenceese Work Phone: [facility] Work Phone: 10-29-2020 16:09-0400 Body weight 80.74 kg Salima Gilman Work Phone: [facility] Work Phone: 10-29-2020 16:09-0400 Diastolic blood pressure 58 mm[Hg] Salima Gilman Work Phone: [facility] Work Phone: 10-29-2020 16:09-0400 Heart rate 80 /min Salima Gilman Work Phone: [facility] Work Phone: 10-29-2020 16:09-0400 Respiratory rate 16 /min Salima Gilman Work Phone: [facility] Work Phone: 10-29-2020 16:09-0400 SaO2% (BldA) [Mass fraction] 98 % Salima Gilman Work Phone: [facility] Work Phone: 10-29-2020 16:09-0400 Systolic blood pressure 118 mm[Hg] Salima Gilman Work Phone: [facility] Work Phone: 10-29-2020 16:09-0400 3 1 Salima Gilman Work Phone: [facility] Work Phone: Comment on above: GRAV PARA 09-24-2020 11:19-0400 Body height 152.4 cm Simone Coulter DO [facility] [place] Work Phone: 09-24-2020 11:19-0400 Body mass index (BMI) [Ratio] 30.66 kg/m2 Simone Coulter DO [facility] Work Phone: 09-24-2020 11:19-0400 Body surface area Derived from formula 1.68 m2 Simone Coulter [facility] Work Phone: 09-24-2020 11:19-0400 Body temperature 96.8 [degF] Simone Coulter [facility] Work Phone: 09-24-2020 11:19-0400 Body weight 71.22 kg Simone Coulter [facility] Work Phone: 09-24-2020 11:19-0400 Diastolic blood pressure 64 mm[Hg] Simone [facility] Work Phone: 09-24-2020 11:19-0400 Heart rate 60 /min Simone [facility] Work Phone: 09-24-2020 11:19-0400 Respiratory rate 16 /min [facility] Work Phone: 09-24-2020 11:19-0400 SaO2% (BldA) [Mass fraction] 97 % Simone [facility] Work Phone: 09-24-2020 11:19-0400 Systolic blood pressure 110 mm[Hg] [facility] Work Phone: 09-24-2020 11:19-0400 3 1 Simone [facility] Work Phone: Comment on above: Para 01-12-2020 11:18-0400 BMI (Body Mass Index) 20.89 kg/m2 Priscilla Leahy [facility] [place] A2100 DO Work Phone: 01-12-2020 11:18-0400 Body weight 69.85 kg Priscilla Leahy [facility] [place] A2100 DO Work Phone: 01-12-2020 11:18-0400 BP Diastolic 78 mm[Hg] Priscilla Leahy [facility] [place] A2100 DO Work Phone: 01-12-2020 11:18-0400 BP Systolic 124 mm[Hg] Priscilla Leahy YA-Xuffdmfkww-[place] A2100 DO Work Phone: 01-12-2020 11:18-0400 BSA (Body Surface Area) 1.91 m2 Priscilla Leahy QJ-Zkkhzymewz-[place] A2100 DO Work Phone: 01-12-2020 11:18-0400 Height 182.88 cm Priscilla Leahy AR-Lvypqujjbl-[place] A2100 DO Work Phone: 01-05-2020 15:57-0400 BMI (Body Mass Index) 28.35 kg/m2 Priscilla Leahy [facility] [place] A2100 DO Work Phone: 01-05-2020 15:57-0400 Body Temperature 98.4 [degF] Priscilla Leahy [facility] [place] A2100 DO Work Phone: 01-05-2020 15:57-0400 Body weight 70.31 kg Priscilla Leahy [facility] [place] A2100 DO Work Phone: 01-05-2020 15:57-0400 BP Diastolic 60 mm[Hg] Priscilla Leahy QO-Vfduroevbe-Hb [place] A2100 DO Work Phone: 01-05-2020 15:57-0400 BP Systolic 122 mm[Hg] Priscilla Leahy TQ-Hsnpukofgv-Ri stlake A2100 DO Work Phone: 01-05-2020 15:57-0400 [...] Respiratory Rate 16 /min Priscilla Leahy MP-Allergists-W e stlake A2100 DO Work Phone: 10-15-2019 17:37-0400 BMI (Body Mass Index) 27.34 kg/m2 Christian Benito [facility] Work Phone: 10-15-2019 17:37-0400 Body weight 67.81 kg Christian Tolbertlock [facility] Work Phone: 10-15-2019 17:37-0400 BP Diastolic 70 mm[Hg] Christian Tomaszlock [facility] Work Phone: 10-15-2019 17:37-0400 BP Systolic 102 mm[Hg] Christian Sherlock [facility] Work Phone: 10-15-2019 17:37-0400 BSA (Body Surface Area) 1.69 m2 Christian Tolbertlock [facility] Work Phone: 10-15-2019 17:37-0400 Height 157.48 cm Christian Tolbertlock [facility] Work Phone: Encounters Encounter Date Encounter Type Care Provider Facility Start: 10-26-2023 End: 10-26-2023 ambulatory JUAN LUIS ADAMS Not Available Start: 10-19-2023 End: 10-19-2023 ambulatory JUAN LUIS A PLEASNICK Not Available Start: 10-12-2023 End: 10-13-2023 ambulatory Micah Diaz Facility[facility] Start: 10-12-2023 End: 10-12-2023 Patient encounter procedure Micah Diaz [facility] Start: 10-10-2023 End: 10-10-2023 ambulatory JUAN LUIS A PLEASNICK Not Available Start: 10-05-2023 End: 10-05-2023 ambulatory JUAN LUIS A PLEASNICK Not Available Start: 10-03-2023 End: 10-03-2023 ambulatory JUAN LUIS A PLEASNICK Not Available Start: 2023 End: 10-03-2023 ambulatory Micah Diaz Facility:[facility] Start: 2023 End: 2023 Patient encounter procedure Grygla Varghese Diaz [facility] Start: 09-28-2023 End: 09-28-2023 ambulatory JUAN LUIS A PLEASNICK Not Available Start: 09-26-2023 End: 09-26-2023 ambulatory JUAN LUIS A PLEASNICK Not Available Start: 09-21-2023 End: 09-21-2023 ambulatory JUAN LUIS A PLEASNICK Not Available Start: 09-13-2023 End: 09-13-2023 ambulatory JUAN LUIS A PLEASNICK Not Available Start: 07-27-2023 End: 07-27-2023 ambulatory [facility] Ambulatory Start: 06-29-2023 ambulatory Micah Diaz Facility :[facility] Start: 06-29-2023 End: 07-14-2023 Pre-admission assessment Kayla Dent [facility] Start: 04-26-2023 End: 07-26-2023 ambulatory CYNDI CHEW Facility:[facility] Start: 04-26-2023 End: 07-25-2023 Recurring CYNDI CHEW [facility] Start: 04-16-2023 End: 04-16-2023 ambulatory [facility] Ambulatory Start: 04-16-2023 End: 04-16-2023 Office outpatient visit 25 minutes Evie Barriosel MARKETING SERVICES COORDINATOR-PORTRAIT PAINTER Work Phone: [facility][note 3] Comment on above: High risk medication use (Primary Dx); Palpitations; Premature ventricular contractions (PVCs) (VPCs); Tachycardia Start: 04-10-2023 End: 04-11-2023 ambulatory [facility]SE[facility]LEC [facility] Start: 04-10-2023 End: 04-10-2023 Subsequent hospital visit by physician Marty James [facility]3] Crystal Comment on above: Palpitations Start: 03-30-2023 End: 03-31-2023 ambulatory CYNDI CHEW Facility:[facility] Start: 03-30-2023 End: 03-30-2023 Patient encounter procedure CYNDI CHEW [facility] Start: 03-05-2023 Patient encounter procedure Kayla Dent [facility] 300 DO Work Phone: Start: 03-05-[address] Kayla Chavez acility:[id number] Start: 03-01-2023 AUDIT [facility] 320 DO Work Phone: Start: 11-08-2022 ambulatory MD FEDERICO WING Fa cility: Start: 10-13-2022 Chart Update Kayla Dent [facility] [place] [facility] Work Phone: Start: 10-10-[address] Kayla Chavez acility:[id number] Start: 09-23-2022 End: 09-24-2022 Emergency department patient visit Vincent Pan [facility] Start: 09-22-[address] Kayla Chavez acility:[id number] Start: 09-22-2022 End: 09-22-2022 Patient encounter procedure Federico Wing [facility] Start: 09-21-[address] Kayla Chavez acility: Start: 09-21-2022 End: 09-21-2022 Patient encounter procedure Federico Wing [facility] Start: 09-20-2022 ambulatory MD FEDERICO WING Fa cility: Start: 09-20-2022 Office outpatient vi sit 40 minutes Kayla Dent MP-[facility] 305 DO Work Phone: Start: 09-01-2022 ambulatory Federico Diaz Facility:[id number] Start: 08-29-2022 EKG, Provider: [facility] [id number] ASSURANCE SOURCING MANAGER 1,[id number], Status: Pen, Time: 10:00 AM Kayla Dent -[facility] 300 DO Work Phone: Start: 08-29-2022 Patient encounter procedure Kayla Dent -[facility] 300 DO Work Phone: Start: 08-29-2022 ambulatory MD FEDERICO WING Fa cility: Start: 08-28-2022 Patient encounter procedure Kayla Dent -[facility] 300 DO Work Phone: Start: 08-28-2022 ambulatory MD FEDERICO WING Fa cility:[id number] Start: 08-25-2022 AUDIT Kayla Dent [facility] [place] [facility] Work Phone: Start: 08-23-2022 End: 08-25-2022 Evaluation and management of inpatient Skip Platzbecker Facility:[id number] Start: 08-23-2022 AUDIT Kayla Dent [facility] [place] [facility] Work Phone: Start: 08-22-2022 End: 08-25-2022 Evaluation and management of inpatient Skip Platzbecker [place] 8 Cardio ICU [id number] Start: 08-18-2022 Office consultation new/estab patient [address] [facility] 300 DO Work Phone: Start: 08-18-[address] Skip Gonzalez Facility:[id number] Start: 08-07-2022 End: 08-07-2022 Patient encounter procedure Luna DICKINSON [facility] Start: 07-12-2022 End: 07-12-2022 Patient encounter procedure Skip Gonzalez [facility] Start: 06-29-2022 End: 06-29-2022 ambulatory CAMPBELL MARY Facility:[id number] Start: 06-27-2022 End: 06-27-2022 Patient encounter procedure Kayla Dent [facility] Start: 06-26-2022 End: 07-08-2022 Pre-admission assessment Kayla Dent [facility] Start: 03-28-2022 End: 03-28-2022 Patient encounter procedure Kayla Dent [facility] Start: 12-28-2021 Chart Update Salima garcia Work Phone: [facility] Work Phone: Start: 12-28-[address] Salima Gilman Facility:[id number] Start: 12-21-2021 Office outpatient vi sit 15 minutes Salima Gilman Work Phone: [facility] 250 DO Work Phone: Start: 12-21-2021 Patient encounter procedure Salima Gilman Work Phone: [facility] 127 DO Work Phone: Start: 11-30-[address] Salima Gilman Facility:[id number] Start: 11-22-2021 Office outpatient vi sit 10 minutes Salima Spenceese Work Phone: [facility] Work Phone: Start: 11-22-2021 Patient encounter procedure Salima Spenceese Work Phone: [facility] Work Phone: Start: 08-18-2021 Rx Change Salima Recinos abrronald Work Phone: [facility] Work Phone: Start: 08-02-2021 End: 08-05-2021 ambulatory SAMARA ROE [facility] Start: 07-12-2021 Office outpatient vi sit 15 minutes Salima Spenceese Work Phone: [facility] Work Phone: Start: 06-23-2021 FUV, Provider: Samara Roe, Status: Pen, Time: 1:15 PM Salima Spenceese Work Phone: [facility] 127 DO Work Phone: Start: 06-23-2021 Patient encounter procedure Salima Spenceese Work Phone: [facility] 127 DO Work Phone: Start: 06-22-2021 Chart Update Salima Recinos abrronald Work Phone: [facility] 127 DO Work Phone: Start: 06-17-2021 Chart Update Salima Recinos abrronald Work Phone: [facility] Work Phone: Start: 06-14-2021 End: 09-12-2021 Patient encounter procedure SALIMA GILMAN [facility] Start: 06-07-2021 Patient encounter procedure Salima Candelario Kalina Work Phone: [facility] 127 DO Work Phone: Start: 05-23-2021 Chart Update Salima Candelario Jorje florindaese Work Phone: [facility] 127 DO Work Phone: Start: 05-11-2021 Office outpatient ne w 45 minutes Salima Gilman Work Phone: [facility] 127 DO Work Phone: Start: 05-03-2021 Patient encounter procedure Salima Gilman Work Phone: [facility] Work Phone: Start: 04-27-2021 AUDIT Salima Candelario Jorje radha Work Phone: [facility] Work Phone: Start: 04-22-2021 [facility], Provider: Simone Coulter, Status: Pen, Time: 8:00 AM Salima A Kalina Work Phone: [facility] Work Phone: Start: 04-21-2021 Chart Update Salima Candelario Jorje florindaese Work Phone: [facility] Work Phone: Start: 12-09-2020 Patient encounter procedure Salima Recinosabrese Work Phone: [facility] Work Phone: Start: 11-23-2020 AUDIT Salimasuresh Recinos abrronald Work Phone: [facility] Work Phone: Start: 10-29-2020 Patient encounter procedure Luna Zacarias PA-C [facility] Work Phone: Start: 10-14-2020 Patient encounter [facility] Work Phone: Start: 09-24-2020 Patient encounter procedure [facility] Coulter [facility] Work Phone: Start: 09-16-2020 Patient encounter procedure [facility] Work Phone: Start: 08-17-2020 Patient encounter procedure [facility] Work Phone: Start: 08-09-2020 Patient encounter procedure Sim[facility] Coulter [facility] Work Phone: Start: 06-28-2020 Patient encounter procedure Simone Coulter DO [facility] [facility] [place] Work Phone: Start: 06-15-2020 Patient encounter procedure Simone Coulter [facility] [facility] [place] Work Phone: Start: 05-05-2020 Patient encounter procedure Priscilla Leahy [facility] 8478 Work Phone: Start: 04-30-2020 Patient encounter procedure Priscilla Leahy [facility] 9155 Work Phone: Start: 04-26-2020 Patient encounter procedure Priscilla Leahy [facility] 7703 Work Phone: Start: 02-16-2020 Patient encounter procedure Priscilla Leahy [facility] 6115 Work Phone: Start: 01-21-2020 Patient encounter procedure Priscilla Leahy [facility] 6115 Work Phone: Start: 01-16-2020 Patient encounter procedure Priscilla Lehay [facility] 6186 Work Phone: Start: 01-12-2020 Patient encounter procedure Priscilla Leahy [facility] 6164 Work Phone: Start: 01-05-2020 Patient encounter procedure Priscilla Leahy KR-Waarokilzd-Cpnxnw ke A2100 DO Work Phone: Start: 10-27-2019 Patient encounter procedure Priscilla Leahy LR-Nusvreznlb-Dhidbu ke A2100 DO Work Phone: Start: 10-15-2019 Patient encounter procedure Christian Benito [facility] Work Phone: Start: 08-25-2019 Patient encounter procedure Christian Benito [facility] Work Phone: Start: 06-30-2019 Patient encounter procedure Salima Gilman [facility] Work Phone: Start: 05-24-2019 Patient encounter procedure Salima Gilman [facility] Work Phone: Cancer cervix - screening done Simone Coulter [facility] [place] Work Phone: Comment on above: 05/24/19-WNL, HPV NEG ; Encounter for gynecological examination (general) (routine) without abnormal findings Salima Gilman Work Phone: [facility] [place] Work Phone: Comment on above: 05/24/19-WNL, HPV NEG ; Mammography normal Salima perry Work Phone: [facility] [facility] Work Phone: Comment on above: 05/2020-cat 112// 019-CAT 1; Procedures Date Procedure Procedure Detail Performing Clinician Start: 07-27-2023 ECG 12-LEAD EVIE Reyes Start: 07-27-2023 FOLLOW UP IN CARDIOLOGY EVIE AGUDELO Start: 04-16-2023 Ecg routine ecg w/le ast 12 lds w/i&r 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 MARKETING SERVICES COORDINATOR-PORTRAIT PAINTER Work Phone: Start: 04-10-2023 LEGACY HOLTER OR ASHWIN NT TOBY MAKER JOSELO HINSON Start: 04-10-2023 Xtrnl pt activtd ecg dwnld w/r&i 30 days Joselo Hinson MARKETING SERVICES COORDINATOR-PORTRAIT PAINTER Work Phone: Start: 08-25-2022 End: 08-25-2022 EKG [...] stimulating hormone tsh Christian Benito Start: 06-30-2019 Scallop IgE IC Lynnette Gilman Start: 06-30-2019 Shrimp, IgE IC Jake Gilman Start: 05-24-2019 Microscopic observat ion [Identifier] in Cervix by Cyto stain Holter Arthrodesis of ankle Micah Diaz Bilateral tubal ligation Mariposa Gilman Comment on above: 1995; Carpal tunnel syndro me (disorder) Skip Gonzalez section Salima Hazel perry Comment on above: 1990, 1992, 1995; section Skip Geovanni moreno Comment on above: x 3 Cholecystectomy Salima Jorje garcia Comment on above: 2017; Cholecystectomy Skip Tim levyyolanda Decompression of med arnold nerve Salima Gilman Work Phone: Extraction of wisdom tooth J molly Gilman Ligation of fallopian tube Adolfo Galarzacharissaoylanda Structure of wisdom tooth (body structure) Skip Maxyolanda Plan of Treatment Date Care Activity Detail Author Start: 05-17-2026 Lipid panel Lipid Panel [facility] Start: 01-11-2024 ambulatory Ambulatory Facility:Kathy Borges Start: 07-16-2023 End: 07-16-2023 Patient encounter procedure 07/16/2023 11:00 AM EST Office Visit [address] [id number] Federico Wing MD [address] [facility] Office [facility] 305 [place], [place] [id number] [facility][note 3] Start: 05-14-2023 FUV, Provider: Federico Wing, Status: Pen, Time: 8:45 AM FUV, Provider: Federico Wing, Status: Pen, Time: 8:[address] [facility] 320 DO Work Phone: Start: 05-14-2023 End: 05-14-2023 Patient encounter procedure 05/14/2023 8:45 AM EST Office Visit [address] 300 [place] [id number] Federico Wing MD [address] [facility] Office [facility] [place] 305 [place], [place] [phone] [facility][note 3] Start: 04-16-2023 End: 04-16-2023 Patient encounter procedure 04/16/2023 1:00 PM EDT Office Visit [facility][note 3] [address] [facility] 300 [place] [address] 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, MARKETING SERVICES COORDINATOR-PORTRAIT PAINTER [address] [facility] 300 [place] [address] [facility][note 3] Start: 03-05-2023 EVENT GRACY, Provider : LEON SCHMIDT ASSURANCE SOURCING MANAGER 1,[id number], Status: Pen, Time: 3:00 PM EVENT GRACY, Provider: [facility] ROXANA ASSURANCE SOURCING MANAGER 1,[id number], Status: Pen, Time: 3:00 PM [facility] 320 DO Work Phone: Start: 02-16-2023 Influenza vaccination Influenza Vacc ine (#1) [facility] Start: 12-28-2022 Screening for malignant neoplasm of breast Mammogram [facility] Start: 11-08-2022 KARAN, Provider : Federico Wing, Status: Pen, Time: 11:45 AM FUVRESULTS, Provider: Federico Wing, Status: Pen, Time: 11:45 AM [facility] Work Phone: Start: 09-20-2022 FUVHOSP, Provider: Federico iWng, Status: Pen, Time: 11:45 AM FUVSP, Provider: Federico Wing, Status: Pen, Time: 11:45 AM [facility] [place] Work Phone: Start: 09-20-2022 Patient encounter procedure [facility] [place] Start: 09-01-2022 [facility], Provider: Federico Wing, Status: Pen, Time: 9:00 AM [facility], Provider: Federico Wing, Status: Pen, Time: 9:00 AM [facility] 300 DO Work Phone: Start: 08-29-2022 EKG, Provider: STANTON ROXANA ASSURANCE SOURCING MANAGER 1,[id number], Status: Pen, Time: 10:00 AM EKG, Provider: LEON SCHMIDT ASSURANCE SOURCING MANAGER 1,[id number], Status: Pen, Time: 10:00 AM [facility] Work Phone: Start: 08-29-2022 Patient encounter procedure [facility] [place] Start: 08-28-2022 EKG, Provider: LEON SCHMIDT ASSURANCE SOURCING MANAGER 1,[id number], Status: Pen, Time: 10:00 AM EKG, Provider: LEON SCHMIDT ASSURANCE SOURCING MANAGER 1,[id number], Status: Pen, Time: 10:00 AM [facility] Work Phone: Start: 08-28-2022 Patient encounter procedure [facility] [place] Start: 08-25-2022 Arrhythmia Arrhythmia Meek e: 25-Aug-2022 [facility] Start: 08-24-2022 Arrhythmia Arrhythmia Meek e: 24-Aug-2022 [facility] Start: 08-22-2022 Chest pain Chest pain Meek e: 22-Aug-2022 [facility] Start: 08-14-2022 Screening for malignant neoplasm of colon [facility] Start: 05-24-2022 Screening for malignant neoplasm of cervix [facility] Start: 12-21-2021 FUV, Provider: Samara Roe, Status: Pen, Time: 9:45 AM FUV, Provider: Samara Roe, Status: Pen, Time: 9:45 AM [place] [address] DO Work Phone: Start: 09-30-2021 COVID-19 Vaccine (2 - Booster for Chioma series) COVID-19 Vaccine (2 - Booster for Chioma series) [facility] Start: 06-23-2021 FUV, Provider: Samara Roe, Status: Pen, Time: 1:15 PM FUV, Provider: Samara Roe, Status: Pen, Time: 1:15 PM [facility] 127 DO Work Phone: Start: 06-16-2021 FUV, Provider: Samara Roe, Status: Pen, Time: 1:00 PM FUV, Provider: Samara Roe, Status: Pen, Time: 1:[address] [facility] 127 DO Work Phone: Start: 06-07-2021 [place] 48, Provider: LEON GREENWOOD ASSURANCE SOURCING MANAGER 1,[id number], Status: Pen, Time: 11:00 AM [facility] 48, Provider: LEON GREENWOOD ASSURANCE SOURCING MANAGER 1,[id number], Status: Pen, Time: 11:[address] [facility] 127 DO Work Phone: Start: 06-07-2021 STRESS ESTELLE, Provider : [facility] NUCLEAR 01,[id number], Status: Pen, Time: 10:30 AM STRESS ESTELLE, Provider: [facility] NUCLEAR 01,[id number], Status: Pen, Time: 10:[address] [facility] 127 DO Work Phone: Start: 06-07-2021 ECHO, Provider: [facility] ULTRASOUND 01,[id number], Status: Pen, Time: 9:45 AM ECHO, Provider: [facility] ULTRASOUND 01,[id number], Status: Pen, Time: 9:[address] [facility] 127 DO Work Phone: Start: 05-11-2021 NPVRFRL, Provider: Samara Roe, Status: Pen, Time: 9:30 AM NPVRFRL, Provider: Samara Roe, Status: Pen, Time: 9:30 AM [facility] Work Phone: Start: 05-11-2021 NPVRFRL, Provider: Enrrique Porter, Status: Pen, Time: 9:15 AM NPVRFRL, Provider: Enrrique Porter, Status: Pen, Time: 9:15 AM -[facility] Work Phone: Start: 05-10-2021 FUV, Provider: Salima Gilman, Status: Pen, Time: 8:45 AM FUV, Provider: Salima Gilman, Status: Pen, Time: 8:45 AM [facility] Work Phone: Start: 05-03-2021 POV, Provider: Simone Coulter, Status: Pen, Time: 10:15 AM POV, Provider: Simone Coulter, Status: Pen, Time: 10:15 AM [facility] [place] Work Phone: Start: 04-12-2021 POV, Provider: Simone Coulter, Status: Pen, Time: 9:00 AM POV, Provider: Simone Coulter, Status: Pen, Time: 9:00 AM [facility] [place] Work Phone: Start: 04-01-2021 [facility], Provider: Simone Coulter, Status: Pen, Time: 7:30 AM [facility], Provider: Simone Coulter, Status: Pen, Time: 7:30 AM [facility] [place] Work Phone: Start: 12-09-2020 FUV, Provider: Simone Coulter, Status: Pen, Time: 8:00 AM FUV, Provider: Simone Coulter, Status: Pen, Time: 8:00 AM [facility] Work Phone: Start: 2018 Zoster Vaccines (1 o f 2) Zoster Vaccines (1 of 2) [facility] Start: 1990 DTaP/Tdap/Td Vaccine s (1 - Tdap) DTaP/Tdap/Td Vaccines (1 - Tdap) [facility] Start: 1989 Screening for malignant neoplasm of cervix HPV/Cotest [facility] Start: 1986 Diabetes mellitus screening Diabetes Screening [facility] Start: 1986 Hepatitis C screening Hepatitis C Sc [facility] Start: 1974 Pneumococcal Vaccine : Pediatrics (0 to 5 Years) and At-Risk Patients (6 to 64 Years) (1 - PCV) Pneumococcal Vaccine: Pediatrics (0 to 5 Years) and At-Risk Patients (6 to 64 Years) (1 - PCV) [facility] Start: 1969 MMR Vaccines (1 of 1 - Standard series) MMR Vaccines (1 of 1 - Standard series) [facility] Start: 1968 Hepatitis B Vaccines (1 of 3 - 3-dose series) Hepatitis B Vaccines (1 of 3 - 3-dose series) [facility] Start: 1968 HIV screening HIV Screening [facility] Start: 1968 Screening for malignant neoplasm of colon [facility] Start: 1968 Yearly Adult Physical Yearly Adult P hysical [facility] Chest pain Chest pain [facility] ECG 12 Lead ECG 12 Lead ECG Routine High risk medication use Palpitations Premature ventricular contractions (PVCs) (VPCs) 04/16/2023 3:53 PM EDT [facility] Service Area Work Phone: End: 04-10-2023 Holter monitor study [facility] Work Phone: Comment on above: Once for 1 Occurrenc es starting 04/10/2023 until 04/10/2023 [facility] Work Phone: NEGATED: Highlighted row has been ruled out! Planned Goals not documented [facility] Work Phone: Immunizations Immunization Date Immunization Notes Care Provider Wendy wei 08-05-2021 [place] COVID-19 Vaccine 0.5 ML Intramuscular Suspension Salima Gilman Work Phone: [facility] Work Phone: 06-29-2021 Covid-19 Non-us Vaccine, Product Unknown 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 APRN-PORTRAIT PAINTER Work Phone: [facility] Work Phone: Payers Date Payer Category Payer Unknown [id number] 2022 Unknown 2022 Unknown [id number] 2018 Private Health Insurance [id number] 1968 Unknown [id number] 2.16.8 40.1.264311.3.579.2.182 1968 Unknown [id number] 2.16.84 0.1.519822.3.579.2.593 1968 Unknown [id number] 2.16.8 40.1.765759.3.579.2.8 1968 Unknown [id number] 2.16.8 40.1.776981.3.579.2.8 1968 Unknown [id number] 2.16.8 40.1.065262.3.579.2.1067 1968 Unknown [id number] .16.8 40.1.815983.3.579.2.8 1968 Unknown [id number] 2.16.8 40.1.292166.3.579.2.8 1968 Unknown [id number] 2.16. 840.1.897061.3.579.2.356 1968 Unknown [id number] . 840.1.558638.3.579.2. 1968 Unknown [id number] 2. 840.1.869667.3.579.2. 1968 Unknown [id number] . 840.1.253360.3.579.2.356 1968 Unknown [id number] .16. 840.1.778966.3.579.2.356 1968 Unknown [id number] 2.16. 840.1.621426.3.579.2. 1968 Unknown [id number] 2.16 840.1.572700.3.579.2.356 1968 Unknown [id number] 2.16. 840.1.653575.3.579.2. 1968 Unknown [id number] .16.8 40.1.081405.3.579.2.1245 1968 Unknown [id number] 2.16.8 40.1.349640.3.579.2.1244 1968 Unknown [id number] .16.8 40.1.464979.3.579.2.4 1968 Unknown [id number] 2.16.8 40.1.380922.3.579.2.727 1968 Unknown [id number] .16.8 40.1.293686.3.579.2.727 1968 Unknown [id number] .16.8 40.1.146541.3.579.2.7 1968 Unknown [id number] .16.8 40.1.990679.3.579.2.727 1968 Unknown [id number] .16.8 40.1.741249.3.579.2.727 1968 Unknown [id number] 2.16.8 40.1.137001.3.579.2.727 1968 Unknown [id number] 2.16.84 0.1.221733.3.579.2.1258 1968 Unknown [id number] 2.16.84 0.1.897741.3.579.2.1258 1968 Unknown [id number] 2.16.84 0.1.346244.3.579.2.1258 1968 Unknown [id number] 2.16.84 0.1.525396.3.579.2.1258 1968 Unknown [id number] 2.16.84 0.1.222849.3.579.2.1258 1968 Unknown [id number] 2.16.84 0.1.941255.3.579.2.1258 1968 Unknown [id number] 2.16.84 0.1.225230.3.579.2.1258 1970 Unknown [id number] [id number] 1970 Unknown [id number] 1970 Unknown [id number] 1961 Unknown [id number] Unknown [id number] Social History Date Type Detail Facility Start: 04-10-2023 End: 04-13-2023 Never a smoker Never a smoker [facility] Work Phone: Comment on above: 3-4 cups coffee corky y, occasional tea/soda; Start: 04-10-2023 End: 04-13-2023 Sex Assigned At Female [facility] Tobacco smoking status No Smoking Status Entered [facility] Start: 07-12-2022 End: 2023 Tobacco smoking status Never smoked tobacco (finding) [facility] Tobacco smoking status Never [facility] Tobacco smoking consumption unknown [facility] Start: 04-10-2023 Tobacco use and exposure Smokeless tobacco non-user [facility] Work Phone: Start: 04-10-2023 End: 04-13-2023 Alcohol intake Lifetime non-drinker (finding) [facility] Work Phone: Start: 1970 Sex Assigned At Not on file [facility] Work Phone: Start: 04-06-2023 End: 04-16-2023 Exposure to SARS-CoV-2 (event) Not sure [facility] NEGATED: Highlighted row - - [facility] Work Phone: Functional Status Date Assessment Result Facility 2023 Functional Status N/A [facility] 09-23-2022 Functional Status N/A [facility] 08-07-2022 Functional Status No [facility] 07-12-2022 Functional Status No [facility] Functional observable [facility] NEGATED: Highlighted row Functional performance Functional status health issues are not documented Disease [facility] Work Phone: Mental Status Date Assessment Result Facility 08-24-2022 Cognitive functi ons :28 [facility] NEGATED: Highlighted row Cognitive function [Interpretation] Cognitive status health issues are not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
== END 2023-11-06 08:49 | disposition home or self-care (01) ==
LOC: EC 08:48
PROVIDERS: Visit Provider Podiatrist Foot & Ankle Surgery
DX: M79.671 Pain in right foot (principal); Z98.890 Other specified postprocedural states
CPT/HCPCS: 73630

== ENCOUNTER 2024-02-05 10:54 | Outpatient (OUT) | payer OTHER, BC, SELFPAY ==
--- NOTE | 2024-02-05 | XR_ITS ---
The [address] [address] Patient Name: NAN HANNA MRN: [id number] date: 1970 Sex: F Assigned Patient Location: Current Patient Location: Accession/Order Number: [id number] Exam Date: 02/05/2024 10:55 Report Date: 02/05/2024 14:14 At the request of: CYNDI CHEW Procedure: XR foot RT min 3V PROCEDURE: XR ankle RT min 3V, XR foot RT min 3V COMPARISON: 05/14/2023, 11/06/2023 HISTORY: RIGHT ANKLE PAIN FINDINGS: BONES:Stable subtalar fusion with incomplete bony bridging. Single surgical staple dorsal base of the first metatarsal. No acute fracture, dislocation or mechanical failure.. Lucency in the distal tibia from bone graft harvesting SOFT TISSUES:Negative. No visible soft tissue swelling. EFFUSION:None visible. OTHER: Negative. XR/XR foot RT min 3V IMPRESSION: Stable postsurgical changes Electronically authenticated by: MARKO BOWDEN Date: 02/05/2024 14:14
--- NOTE | 2024-02-05 | XR_ITS ---
The [address] [address] Patient Name: NAN HANNA MRN: [id number] date: 1970 Sex: F Assigned Patient Location: Current Patient Location: Accession/Order Number: [id number] Exam Date: 02/05/2024 10:55 Report Date: 02/05/2024 14:14 At the request of: CYNDI CHEW Procedure: XR ankle RT min 3V PROCEDURE: XR ankle RT min 3V, XR foot RT min 3V COMPARISON: 05/14/2023, 11/06/2023 HISTORY: RIGHT ANKLE PAIN FINDINGS: BONES:Stable subtalar fusion with incomplete bony bridging. Single surgical staple dorsal base of the first metatarsal. No acute fracture, dislocation or mechanical failure.. Lucency in the distal tibia from bone graft harvesting SOFT TISSUES:Negative. No visible soft tissue swelling. EFFUSION:None visible. OTHER: Negative. XR/XR ankle RT min 3V IMPRESSION: Stable postsurgical changes Electronically authenticated by: MARKO BOWDEN Date: 02/05/2024 14:14
--- OUTSIDE RECORDS SUMMARY | 2024-02-05 11:12 | XMS_ITS | CCD ---
Author Organization [facility] Care Team Providers Care Forensic Sergeant Name Role Phone Salima Gilman Unavailable Unavailable Kalina Salima A Unavailable Unavailabl Christian Richards Unavailable Unavailable Hien Gilmanfer A Unavailable Unavailabl e Priscilla Leahy M Unavailable Unavailable Maday Schmitz Unavailable Unavailable Salima Gilman Unavailable Unava ilable Celi Barrett Unavailable Unavailable Priscilla Leahy M Unavailable Unavailable Simone Coulter DO Unavailable Unavailable Rell WALL Luna Unavailable Unavailable Salima Gilman MD Unavailable Unavailab andree Schmitz 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Maday Unavailable Unavaila ble Salima Gilman Unavailable UnavailCeli Kang Unavailable Unavailable Priscilla Leahy Unavailable Unavailable Celi Barrett Unavailable Unavailable Priscilla Leahy Unavailable Unavailable Salima Gilman Unavailable [phone] Unavailable Unavailable SAMARA ROE Referring Unavailable GERRY SALMERON Primary Care Unavailable SALIMA GILMAN Primary Care Physician [phone] Kayla Dent Primary Care Physician [phone] CAMPBELL HERNANDEZ Consulting Unavailable KAYLA DENT Primary Care Unavailable CINTHIA ., MADGA Admitting Unavailable CINTHIA ., MAGDA Attending Unavailable MARKO GARY Consulting Unavailable BONY SOLARES Consulting Unavailable CINTHIA ., MAGDA Consulting Unavailable Kayla Dent Unavailable Unavailable Unavailable Unavailable Kayla Dent Unavailable Federico Wing Unavailable Skip Kelly Unavailable Unavailable Federico Wing Referring Unavailable Federico Wing Attending Unavailable Dr. Kayla Dent Primary Care Unavailab andree Gilman, Dr. Salima Myles Primary Care U navailable Akshauna, MsFaby Winn Attending Unavailable Kalina, Dr. Salima Myles Primary Care U navailable Akuchijoe, MsFaby Winn Attending Unavailable Jailene, Dr. Kayla Hassan Primary Care Unavailab Federico French Attending Unavailable Skip Kelly Attending Unavailable Skip [...] HINSON, LINDA HOUSTON Attending Unavailable SINCERE, LINDA HOUSTON Referring Unavailable Carlos, Dr. Skip Smith Referring U navailable Kalina, Dr. Salima Myles Primary Care U navailable MECCA, MD FEDERICO MANSFIELD Attending Unavailprecious WING, MD FEDERICO MANSFIELD Referring Unavailprecious Dent, Dr. Kayla Hassan Primary Care Unavailab MD FEDERICO French Attending Unavailabl e MECCA, MD FEDERICO MANSFIELD Referring Unavailprecious Dent, Dr. Kayla Hassan Primary Care Unavailab French, MD FEDERICO MANSFIELD Attending Unavailabl e MD FEDERICO WING Referring Unavailabl e MECCA, MD FEDERICO MANSFIELD Attending Unavailprecious Dent, Dr. Kayla Hassan Primary Care Unavailab andree Dent DO, Kayla Hassan Primary Care Provider Jailene DO, Kayla Hassan Primary Care Provider JOSELO HINSON Referring Unavaila lisandra DENT, KAYLA HASSAN Primary Care Unavailable Jailene DIMAS, Kayla Hassan Primary Care Provider Unav ailable EVIE AGUDELO Attending Unavailable JAILENE, KAYLA HASSAN Primary Care Unavailable FEDERICO WING Attending Unavailable EVIE AGUDELO Referring Unavailable JAILENE, KAYLA HASSAN Primary Care Unavailable Micah Diaz Primary Care Physician Unavail able JUAN LUIS ADAMS Attending Unavailab le TAVO, DEIRDRE Referring Unavailable [...] Attending Unavailab le TAVO, DEIRDRE Referring Unavailable CromleyDO Micah Admitting Unavailable DO Micah Diaz Attending Unavailable Atilio Beltran Attending Unavailable DO Micah Diaz Attending Unavailable DO Micah Diaz Attending Unavailable CYNDI CHEW Attending Unavailable CYNDI CHEW Referring Unavailable HIGHLANDERCYNDI Admitting Unavailable HIGHLCYNDI DIAZ Attending Unavailable HIGHLCYNDI DIAZ Referring Unavailable Atilio Beltran Attending Unavailable Micah Diaz Attending Unavailable Allergies Allergy Classification Reported Allergen(s) Allergy Type Date of Onset Reaction(s) Facility Fish (7 sources) shellfish, unspecified Food Allergy [facility]: (20 sources) shellfish, unspecified; Translations: [shellfish] food allergy Hives, Angioedema, Weal (disorder) [facility] (1 source) Shellfish Drug allergy (disorder) [address] [facility] (8 sources) Shellfish; Translations: [shellfish] Drug allergy 3 Weal (disorder), Angioedema, Hives [facility] (1 source) Shellfish Facial Swelling, Hives [facility] (2 sources) SHELLFISH CONTAINING PRODUCTS; Translations: [SHELLFISH CONTAINING PRODUCTS] Propensity to adverse reactions to food (disorder) 3 [facility] Repository Medications Current Medications Medication Drug Class(es) Dates Sig (Normalized) Sig (Original) aspirin 81 mg delayed release oral tablet (20 sources) Platelet Aggregation Inhibitor, Nonsteroidal Anti-inflammatory Drug Start: 07-12-2022 take 1 tablet by mouth once daily aspirin 81 mg Oral EC Tab 81 mg = 1 tab(s), Oral, Daily, # 30 tab(s), Refills(s) 3, Pharmacy: [id number], 152, cm, 09/23/22 22:25:00 EDT, Height/Length Dosing, 86.5, kg, 09/23/22 22:25:00 EDT, Weight Dosing Start Date: 12/24/22 Status: Ordered Aspirin Low Dose ; 81 orally once a day Quantity: 0 Refills: 0 Ordered: 22-Aug-2022 Olga Reyes Generic Substitution Allowed B Complex 100 (1 source) Start: 01-18-2024 B Complex 100 Refill(s) 0 Start Date: 01/18/24 Status: Ordered Zyrtec (20 sources) Histamine-1 Receptor Antagonist Start: 01-18-2024 Zyrtec Refills(s) 0 Start Date: 01/18/24 Status: Ordered take 1 capsule by [facility] once daily at bedtime cetirizine (ZyrTEC) 10 mg capsule Take 1 capsule (10 mg) by mouth once daily at bedtime. 0 Active 10 ml EPINEPHrine 0.1 mg/ml prefilled syringe (20 sources) alpha-Adrenergic Agonist, beta-Adrenergic Agonist, Catecholamine Start: 01-18-2024 Epinephrine 0.1 mg/mL Injection Refills(s) 0 Start Date: 01/18/24 Status: Ordered Start: 06-30-2019 EPINEPHrine 0. 3 MG/0.3ML Injection [...] Ordered: 02-Sep-2020 Pratima Lisa Generic Substitution Allowed ferrous sulfate 325 mg delay ed release oral tablet (13 sources) ferrous sulfate [...] Allowed flecainide acetate 100 mg oral tablet (14 sources) Antiarrhythmic Start: 2023 take 1 tablet by mouth every twelve hours flecainide 100 mg Tab 100 mg = 1 tab(s), Oral, q12hr, Refills(s) 0 Start Date: 10/02/23 Status: Ordered [...] 100mg. Patient would like new script please itraconazole 65 mg oral capsule (1 source) Azole Antifungal Start: 01-18-2024 take 1 capsule by mouth twice daily itraconazole 65 mg oral capsule 1 cap, Oral, BID, Refills(s) 0 Start Date: 01/18/24 Status: Ordered lysine 1000 mg oral tablet (20 sources) take 1 tablet by mouth once daily lysine 1,000 mg tablet Take 1 tablet (1,000 mg) by mouth once daily. 0 Active magnesium oxide 400 mg oral tablet (17 sources) Start: 01-18-2024 magnesium oxid e 400 mg Tab 400 mg = 1 tab(s), Oral, Refills(s) 0 Start Date: 01/18/24 Status: Ordered Start: 08-25-2022 take 1 tablet by sydni th once daily magnesium oxide 400 mg oral tablet ; 1 tab(s) orally once a day Quantity: 0 Refills: 0 Ordered: 25-Aug-2022 Kayla Shaw Start: 25-Aug-2022 Generic Substitution Allowed Start: 06-23-2021 take 2 tablets by mo [facility] twice daily Magnesium Oxide 400 MG Oral Tablet 2 tablets twice a day Quantity: 90 Refills: 3 Ordered: 12-Jul-2021 Samara Roe MD Start : 23-Jun-2021 Active Start: 05-11-2021 take 1 tablet by sydni twice daily Magnesium Oxide 400 MG Oral Tablet TAKE 1 TABLET TWICE DAILY. Quantity: 180 Refills: 3 Ordered: 11-May-2021 Samara Roe MD Start : 11-May-2021 Active new order take 1 capsule by [facility] once daily magnesium oxide 400 mg magnesium capsule Take 1 capsule (400 mg) by mouth once daily. 0 Active meloxicam 15 mg oral tablet (3 sources) Nonsteroidal Anti-inflammatory Drug Start: 2023 meloxicam 15 mg Tab 15 mg = 1 tab(s), Refills(s) 0 Start Date: 10/02/23 Status: Ordered 24 hr metoprolol succinate 25 mg extended release oral tablet (20 sources) beta-Adrenergic Claudia Start: 03-12-2023 take 1 tablet by mouth once daily metoprolol 25 mg ER Tab 25 mg = 1 tab(s), Oral, Daily, # 30 tab(s), Refills(s) 3, Pharmacy: [id number], 152, cm, 09/23/22 22:25:00 EDT, Height/Length Dosing, 86.5, kg, 09/23/22 22:25:00 EDT, Weight Dosing Start Date: 03/12/23 Status: Ordered Start: 06-23-2021 take 1 tablet by sydni once daily metoprolol 25 mg ER Tab 25 mg = 1 tab(s), Oral, Daily, # 30 tab(s), Refills(s) 3, Pharmacy: [id number], 152, cm, 07/12/22 15:54:00 EST, Height/Length Dosing, 83.4, kg, 07/12/22 15:54:00 EST, Weight Dosing Start Date: 07/12/22 Status: Ordered Multi Vitamin+ (1 source) Start: 01-18-2024 Multi Vitamin+ Refill(s) 0 Start Date: 01/18/24 Status: Ordered Multivitamin preparation (2 sources) take 1 tablet by mouth once daily B Complex 50 oral tablet, [...] MD Start : 25-Aug-2019 Active solifenacin succinate 10 mg oral tablet (20 sources) Cholinergic Muscarinic Antagonist Start: 01-18-2024 take 1 tablet by mouth once daily solifenacin 10 mg Tab 10 mg = 1 tab(s), Oral, Daily, # 90 tab(s), Refills(s) 0 Start Date: 01/18/24 Status: Ordered Start: 07-04-2022 take 1 tablet by sydni th once daily Vesicare 5 mg Tab 5 mg = 1 tab(s), Oral, Daily, Refills(s) 0 Start Date: 07/14/22 Status: Ordered take 1 tablet by sydni th once daily solifenacin (VESIcare) 10 mg tablet Take 1 tablet (10 mg) by mouth once daily. Swallow tablet whole; do not crush, chew, or split. 0 Active VITAMIN B COMPLEX ORAL (1 source) take 1 tablet by sydni th once daily VITAMIN B COMPLEX ORAL Take 1 tablet by mouth once daily. 0 Active Vitamin D (1 source) Start: 01-18-2024 Vitamin D Refills(s) 0 Start Date: 01/18/24 Status: Ordered Completed/Discontinued Medications Medication Drug Class(es) Dates Sig [...] 0 09/20/2022 04/16/2023 Discontinued (Med List Cleanup) fluconazole 150 mg oral tablet (20 sources) [...] directed per pharmacy Quantity: 1 Refills: 1 Adalidanishsiobhan LYN Maday Start : 26-Apr-2020 Active 21 Tablet Pack [...] Start: 08-27-2017 take 1 capsule by mo [facility] every twenty-four hours Tolterodine Tartrate [...] Lightheadedness; Translations: [Dizziness and giddiness] 08-22-2022 Episodic Diseases of mouth; excluding dental (2 sources) Glossopyrosis ; Translations: [Glossodynia] Onset: 4 Episodic Esophageal disorders (5 sources) Gastroesophageal reflux disease without esophagitis; Translations: [...] period; Translations: [Missed menses] Chronic Mood disorders (10 sources) Mood swings; 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] Onset: 4 Chronic Mood disorders (1 source) Mood disorders; Translations: [DEPRESSION UNSPECIFIED] Onset: 3 Mycoses (6 sources) Candidal intertrigo; Translations: [Candidiasis of skin and nails] Episodic Nonmalignant breast conditions (17 sources) Breast lump; Translations: [Lump or mass in breast] Onset: 3 04-10-2023 Episodic Nonspecific chest pain (9 sources) Chest pain, unspecified; Translations: [Chest pain] Onset: 3 Episodic Comment on above: CHEST PAIN Osteoarthritis (1 source) 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 Onset: 3 01-16-2024 Chronic Comment on above: Outside Source Comme nt: Comment on above: w/ Varus foot deformity, displaced fx of calcaneus Other aftercare (7 sources) Drug therapy finding; Translations: [Long-term (current) use of other medications] Episodic Other aftercare (3 sources) Taking high risk medication; Translations: [Other extermination inspector (current) drug therapy] Onset: 3 04-16-2023 Episodic Other and unspecified benign neoplasm (20 sources) Melanocytic nevus; Translations: [Benign neoplasm of skin, site unspecified] Onset: 3 04-10-2023 Episodic Other congenital anomalies (1 source) 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 Other connective tissue disease (3 sources) Hand pain; Translations: [Pain in limb] Episodic Other connective tissue disease (2 sources) Disorder of muscle; Translations: [Other specified disorders of muscle] Onset: 4 Episodic Other connective tissue disease (4 sources) Pelvic floor dysfunction 2023 Episodic Other diseases of bladder and urethra (1 source) Detrusor overactivity; Translations: [Overactive bladder] Onset: 4 Chronic Other diseases of bladder and urethra (4 sources) Overactive bladder 2023 Chronic Other female [...] of breath; Translations: [SHORTNESS OF BREATH] Onset: 3 Episodic Other lower respiratory disease (3 sources) [...] 3 04-10-2023 Episodic Other nervous system disorders (4 sources) Intolerant of heat 2023 Episodic Other [...] source) Obesity, unspecified; Translations: [Obesity, unspecified] Onset: Chronic Other nutritional; endocrine; and metabolic disorders (1 source) Body mass index (BMI) 35.0-35.9, adult; Translations: [Body mass index [BMI] 35.0-35.9, adult] Onset: Chronic Other nutritional; endocrine; and metabolic disorders (2 sources) Body mass index (BMI) 36.0-36.9, adult; Translations: [Body mass index (BMI) 36.0-36.9, adult] Onset: 4 Chronic Other nutritional; endocrine; and metabolic disorders (1 source) Obese class II; Translations: [Body mass index (BMI) 36.0-36.9, adult] Onset: 4 Chronic Other nutritional; endocrine; and metabolic disorders (5 sources) Weight gain; Translations: [Abnormal weight gain] Episodic Other screening for suspected conditions (not mental disorders or infectious disease) (20 sources) Cancer cervix - screening done; Translations: [Patient encounter status] Onset: 3 04-10-2023 Episodic Comment on above: cologuard 07/2019-neg atve; Other upper respiratory disease (20 [...] general symptoms and signs] Onset: 4 Episodic Residual codes; unclassified (1 source) Menopause present 01-16-2024 Episodic Screening and history of mental health and substance abuse codes (1 source) Personal history of nicotine dependence; Translations: [Personal history of nicotine dependence] Onset: 3 Episodic Unclassified (16 sources) Patient encounter status; Translations: [Encounter for screening mammogram for breast cancer] 2023 Unclassified (1 source) CONTACT W/AND (SUSP) EXPOS COVID-19; Translations: [CONTACT W/AND (SUSP) EXPOS COVID-19] Onset: 3 Unclassified (1 source) [facility] 3/9 08-24-2022 Comment on above: [facility] / Unclassified (2 sources) AND-[facility]IB 08-25-2022 Comment on [...] deficiency anemia, unspecified] Onset: 06-02-2015 04-10-2023 Episodic Mood disorders (20 sources) Mood swings; Translations: [Emotional lability] Onset: 04-10-2023 04-10-2023 Episodic Other aftercare (2 sources) Other skilled nursing (current) drug therapy; Translations: [Other skilled nursing (current) drug therapy] Onset: 04-13-2023 Episodic Other female genital disorders (1 source) Vaginal discharge; Translations: [Vaginal discharge] Episodic Other gastrointestinal disorders (1 source) Heartburn Onset: 05-15-2023 01-16-2024 Episodic Unclassified (1 source) Cancer cervix screening [...] Test Name Value Interpretation Reference Range Facility Ambulatory Visit Summaryon 0 01-18-2024 Ambulatory Visit Summary Ambulatory Visit Summary RASHEEDA HANNA :1970 Visit Date:01/18/2024 Ambulatory Visit Instructions Your Diagnosis BMI 36.0-36.9,adult Non-smoker Mild recurrent major depression Painful tongue Pelvic floor dysfunction Your Care Team Attending Physician - Micah Diaz DO Primary Care Physician - Micah Diaz DO This Is Your Medications List aspirin (aspirin 81 mg Oral EC Tab) cetirizine (Zyrtec) epinephrine (Epinephrine 0.1 mg/mL Injection) ergocalciferol (Vitamin D) flecainide (flecainide 100 mg Tab) itraconazole (itraconazole 65 mg oral capsule) magnesium oxide (magnesium oxide 400 mg Tab) metoprolol (metoprolol 25 mg ER Tab) multivitamin (B Complex 100) multivitamin (Multi Vitamin+) omeprazole (omeprazole 40 mg Cap-DR) sertraline (sertraline 50 mg Tab) solifenacin (solifenacin 10 mg Tab) Procedures Performed Catheterization of left heart (07/14/2022), Ankle fusion, Carpal tunnel, section, Cholecystectomy, Tubal ligation, [place] tooth. Discharge Vitals Heart Rate (Peripheral) 61 Blood Pressure 118/66 Height 156 cm Height 61 in Weight 90 kg Weight 198 lb BMI 36.98 What to do next Scheduled Follow-Up Appointments Sunday 9:20 AM EDT With: Micah Diaz DO Where: [facility] [place] [address] [place] [address]- You Need to Schedule the Following Appointments Follow Up with Emily DIMAS, JAVID Young, PED When: Within 3 months Comments: 20 min slot To go instructions: If you decide you want to start bupropion, let me know and I'll submit 150mg XL Stop pop for a week, if that doesn't help your symptoms, I recommend that you see a ENT to discuss -------- *When you see providers outside of [facility], please request that they send office visit notes every time you're seen there - this helps us take better care of you Screening guidelines: Colon cancer screening starts at age 45 for most people; cologuard every three years or colonoscopy every ten years (for average risk patients) Breast cancer screening; reasonable to consider screening between 40-49; every woman age 50-74 should undergo screening mammogram every 1-2 years Dental exams and cleanings every 6 months is recommended - oral health is a predictor of your future Smokers who have averaged a pack a day for over twenty years should have annual low dose Chest CT to screen for lung cancer starting at age 50 Follow up 3 months Where: [address] [place] [address] [id number] Medications What How Much When Instructions Unchanged aspirin (aspirin 81 mg Oral EC Tab) 1 Tablets By Mouth Every day Unchanged cetirizine (Zyrtec) Unchanged epinephrine (Epinephrine 0.1 mg/ mL Injection) Unchanged ergocalciferol (Vitamin D) Unchanged flecainide (flecainide 100 mg Tab) 1 Tablets By Mouth Every 12 hours Unchanged itraconazole (itraconazole 65 mg oral capsule) 1 cap By Mouth 2 times a day Unchanged magnesium oxide (magnesium oxide 400 mg Tab) 1 Tablets By Mouth Unchanged metoprolol (metoprolol 25 mg ER Tab) 1 Tablets By Mouth Every day Unchanged multivitamin (B Complex 100) Unchanged multivitamin (Multi Vitamin+) Unchanged omeprazole (omeprazole 40 mg Cap-DR) 1 Capsules By Mouth Every day Unchanged sertraline (sertraline 50 mg Tab) 1 Tablets By Mouth Every day Unchanged solifenacin (solifenacin 10 mg Tab) 1 Tablets By Mouth Every day Allergies shellfish (Hives) Problems Ongoing - Any problem that you are currently receiving treatment for. GERD (gastroesophageal reflux disease) Heartburn Heat intolerance Menopause present Mild recurrent major depression Mood swings 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 Overactive bladder Painful tongue Pelvic floor dysfunction Sick sinus syndrome Talipes varus Patient Survey You may receive a survey via text or e-mail asking about your office visit. Please share your experience with us by completing your survey. We appreciate your feedback and thank you for choosing us for your care. Normal [facility] Family Medicine Office/Clini c Noteon 01-18-2024 Family Medicine Office/Clinic Note Family Medicine Office/Clinic Note Chief Complaint Chronic Condition follow up HPI Staff Patient here for 3 month Chronic Condition f/u (, [place]) Follow up for Mental Status: Stable with Sertraline Medication adherence- Yes, takes medication as prescribed Medication refill needed: yes Sertraline and Vesicare Counseling: no Suicidal thoughts-Not at this time Most recent JAMEY: 0 Most recent PHQ9: 1 GERD: Stable with Omeprazole Overactive Bladder: At last visit patient was referred for pelvic floor therapy, patient declines scheduling at this time. Sick Sinus Syndrome: Patient does see Cardiology, Dr. Wing, scheduled in April. - Patient was seen at [facility] 11/12/23 since last visit for chest pain radiating to neck/jaw/shoulder. Cardiac work up completed, which was negative. Advised to f/u with Cardiology. Labs: completed 10/12/23 [place]: Cologuard ordered today - Faxed to [employer] [facility]: ordered at last visit - Patient will call and schedule Pap: per pt about 3 years ago, WNL History of Present Illness 53 Years old Female here for 3 mo f/u cardiac review HPI staff / Chief Complaint confirmed with the patient Social: The patient is ; [place] since November 05, 2021 The patient is currently working; [employer] for 1 years The patient has 3 child(jose) and 2 step children 3 grandchild(jose) no great grandchild(jose) Screening: Colon Cancer screening: cologuard five years ago; this patient does NOT have family history of colon cancer Breast cancer screening: [place] 18 Jun 2022; this patient does NOT have a family history of breast cancer Pap smear: 2019? (Dr. Kayla Dent) Labs: September 2022 Diabetes/ prediabetes: A1c: Hgb A1C %: 5.8 % (10/12/23 07:34:00) Smokers/ former smokers: Low dose lung CT: never a smoker List of Providers: Cardiology - Dr. Wing - doesn't follow with LITIGATOR To do list: _ HPI staff / Chief Complaint confirmed with the patient Interval history: _ Didn't get the mammogram because they didn't call me Put pelvic floor therapy on hold I wonder if I should just get the sling procedure I counted calories, but I didn't make major changes in my diet describing a new burning sensation/ hypersensitivity along the sides of her tongue her dentist as told her that nothing looks abnormal in her mouth (anything tagged from the patients medical record will be at the bottom of this section) LABS Cr/eGFR: eGFR: 75 mL/min/1.73 m2 (11/12/23 20:55:00) Creatinine: 0.9 mg/dL (11/12/23 20:55:00) A1c: Hgb A1C %: 5.8 % (10/12/23 07:34:00) TSH: TSH: 1.73 mcIU/mL (10/12/23 07:34:00) LDL: LDL Direct: 132 mg/dL High (10/12/23 07:34:00) Lipids: Chol: 209 mg/dL High (10/12/23 07:34:00) HDL: 54 mg/dL (10/12/23 07:34:00) LDL Direct: 132 mg/dL High (10/12/23 07:34:00) Tri mg/dL (10/12/23 07:34:00) VLDL: 24 mg/dL (10/12/23 07:34:00) INR: INR: 0.99 (11/12/23 20:55:00) From last note: From: Micah Diaz DO To: [facility] - Clinical; Sent: 10/13/2023 10:23:39 EDT Subject: Labs Caller Name: RASHEEDA HANNA; Caller Number: H Labs are all at or near normal range, or stable compared with prior labs. This is a good thing. The patient's average glucose is elevated to 5.8% signifying prediabetes. In some people there's a genetic predisposition regardless of BMI. Even people who are healthy and active with a normal weight can develop prediabetes. I recommend decreasing sugary foods and drinks, losing weight, walking more than 5,000 steps a day and we can re-check in 3 months. We can discuss further at the patient's already planned follow up appt or they can make an appt sooner to discuss in more detail. Thanks! [1] Review of Systems PHQ Score Initial Depression Screen Score: 0 SCORE Physical Exam Vitals & Measurements HR: 61(Peripheral) BP: 118/66 SpO2: 97% HT: 61 in HT: 156 cm WT: 90 kg WT: 198 lb BMI: 36.98 PHYSICAL EXAM Constitutional: Vital signs reviewed; RASHEEDA HANNA is well nourished, no acute distress - obese Head: Atraumatic, normocephalic Lungs: Clear to auscultation, non-labored respiration - expansion is symmetric Heart: Normal rate and rhythm, normal peripheral perfusion Lymph: Deferred Abd: Deferred : Deferred MSK: antalgic gait Skin: Warm, dry Neurologic: Awake, alert and oriented, speech is normal, no focal deficits, CN II-XII grossly intact Psychiatric: Cooperative, appropriate mood and affect, judgement is appropriate Assessment/Plan 1. BMI 36.0-36.9,adult (Z68.36: Body mass index [BMI] 36.0-36.9, adult) Chronic Sub-optimal control Discussed how this is an independent risk factor for heart disease, diabetes, kidney disease, cancer among others The patient is SOMEWHAT motivated to lose weight Discussed the importance of appropriate food choices; weight loss happens in the kitchen and not in the gym That side, there is long-term data that shows that pa (more content not included)... Normal [facility] Comment on above: Result Comment: Elec tronically Signed By: Micah Diaz DO\kathia\Date and Time Signed: 01/18/24 19:59 EDT XR Chest Single Viewon 11-12 XR Chest Single View Exam Date/Time: 11/12/2023 21:11 EDT Reason for Exam: Chest pain Report IMPRESSION: NO RADIOGRAPHIC EVIDENCE OF ACUTE INTRATHORACIC PROCESS. EXAM: XR Chest Single View History: Chest pain Technique: Portable AP view of the chest. Comparison: None available Findings: The cardiomediastinal silhouette is within normal limits. No pneumothorax, pleural effusion, or consolidation. No acute osseous abnormality. Ordering Provider: Atilio Beltran FINAL REPORT Dictated: 11/13/2023 9:55 am Micah Frazier DO Signed (Electronic Signature): 11/13/2023 9:55 am Signed by: Micah Frazier DO Transcribed by: BENITA Technologist: DONALD Technical Comments Radiation Dose: Ka,r in mGy = na DAP = na Normal [facility] BMPon 11-12-2023 Anion gap [Moles/Vol] 12 mmol/L Normal 6-16 [facility] Comment on above: Performed By: #### 2 [id number] #### [facility] [address] [place] [address] Calcium [Mass/Vol] 9.0 mg/dL Normal 8.9-11.1 [facility] Comment on above: Performed By: #### 2 [id number] #### [facility] [address] [place] [address] Chloride [Moles/Vol] 104 mmol/L Normal 101-111 [facility] Comment on above: Performed By: #### 2 [id number] #### [facility] [address] [place] [address] CO2 [Moles/Vol] 27 mmol/L Normal 21-31 [facility] Comment on above: Performed By: #### 2 [id number] #### [facility] [address] [place] [address] Creatinine [Mass/Vol] 0.9 mg/dL Normal 0.5-1.3 [facility] Comment on above: Performed By: #### 2 [id number] #### [facility] [address] [place] [address] Glucose [Mass/Vol] 100 mg/dL Normal 55-199 [facility] Comment on above: Performed By: #### 2 [id number] #### [facility] [address] [place] [address] Potassium [Moles/Vol] 4.0 mmol/L Normal 3.5-5.3 [facility] Comment on above: Performed By: #### 2 [id number] #### [facility] [address] [place] [address] Sodium [Moles/Vol] 139 mmol/L Normal 135-145 [facility] Comment on above: Performed By: #### 2 [id number] #### [facility] [address] [place] [address] Urea nitrogen [Mass/Vol] 21 mg/dL Normal 5-21 [facility] Comment on above: Performed By: #### 2 [id number] #### [facility] [address] [place] [address] Urea nitrogen/Creatinine [Mass ratio] 23 No Units High 10-20 [facility] Comment on above: Performed By: #### 2 [id number] #### [facility] [address] [place] [address] CBC w/ Auto Diffon 4 Basophils/100 WBC (Bld) 0.5 % Normal 0.0-2.0 [facility] Comment on above: Performed By: #### 2 [id number] #### [facility] [address] [place] [address] Basophils/Leukocytes Auto (Bld) [Pure # fraction] 0.1 E9/L Normal 0.0-0.2 [facility] Comment on above: Performed By: #### 2 [id number] #### [facility] [address] [place] [address] Eosinophils (Bld) [#/Vol] 0.2 E9/L Normal 0.0-0.5 [facility] Comment on above: Performed By: #### 2 [id number] #### [facility] [address] [place] [address] Eosinophils/100 WBC (Bld) 2.4 % Normal 0.0-8.0 [facility] Comment on above: Performed By: #### 2 [id number] #### [facility] [address] [place] [address] Erythrocyte distribution width (RBC) [Ratio] 13.5 % Normal 10.9-14.2 [facility] Comment on above: Performed By: #### 2 [id number] #### [facility] [address] [place] [address] Hematocrit (Bld) [Volume fraction] 38.7 % Normal 34.0-46.0 [facility] Comment on above: Performed By: #### 2 [id number] #### [facility] [address] [place] [address] Hemoglobin (Bld) [Mass/Vol] 13.3 g/dL Normal 12.0-16.0 [facility] Comment on above: Performed By: #### 2 [id number] #### [facility] [address] [place] [address] Lymphocytes (Bld) [#/Vol] 2.8 E9/L Normal 1.0-4.0 [facility] Comment on above: Performed By: #### 2 [id number] #### [facility] [address] [place] [address] Lymphocytes/100 WBC (Bld) 28.5 % Normal 14.0-50.0 [facility] Comment on above: Performed By: #### 2 [id number] #### [facility] [address] [place] [address] MCH (RBC) [Entitic mass] 31.7 pg Normal 27.0-34.0 [facility] Comment on above: Performed By: #### 2 335385 #### [facility] [address] [place] [address] MCHC (RBC) [Mass/Vol] 34.3 g/dL Normal 31.4-36.0 [facility] Comment on above: Performed By: #### 2 [id number] #### [facility] [address] [place] [address] MCV (RBC) [Entitic vol] 92.4 fL Normal 80.0-100.0 [facility] Comment on above: Performed By: #### 2 [id number] #### [facility] [address] [place] [address] Monocytes (Bld) [#/Vol] 0.8 E9/L Normal 0.2-1.0 [facility] Comment on above: Performed By: #### 2 [id number] #### [facility] [address] [place] [address] Neutrophils (Bld) [#/Vol] 5.9 E9/L Normal 2.0-7.5 [facility] Comment on above: Performed By: #### 2 [id number] #### [facility] [address] [place] [address] Neutrophils/100 WBC (Bld) 60.4 % Normal 36.0-75.0 [facility] Comment on above: Performed By: #### 2 144235 #### [facility] [address] [place] [address] Platelet mean volume (Bld) [Entitic vol] 8.8 fL Normal 6.4-10.8 [facility] Comment on above: Performed By: #### 2 [id number] #### [facility] [address] [place] [address] Platelets (Bld) [#/Vol] 237.0 E9/L Normal 150.0-500.0 [facility] Comment on above: Performed By: #### 2 [id number] #### [facility] [address] [place] [address] RBC (Bld) [#/Vol] 4.2 E12/L Low 4.3-5.9 [facility] Comment on above: Performed By: #### 2 [id number] #### [facility] [address] [place] [address] WBC corrected for nucl RBC Auto (Bld) [#/Vol] 9.7 E9/L Normal 4.0-11.0 [facility] Comment on above: Performed By: #### 2 [id number] #### [facility] [address] [place] [address] CHEMISTRYOrdered By: SYSTEM SYSTEM on 11-12-2023 Troponin 3.50 pg/mL Low 10.10 - 27.10 pg/mL [facility] Comment on above: Interpretive Data: T he 95% CI (Confidence Interval) PPV (Positive Predictive Value) for myocardial infarction in females is 38 pg/mL, in males 51 pg/mL. The results should be used in conjunction with clinical conditions of myocardial infarction. (Access High Sensitivity Troponin I Instructions For Use, Lorenzo [place], January 2018) Albumin [Mass/Vol] 4.2 g/dL Normal 3.3 - 5.0 gm/dL [facility] Albumin/Globulin [Mass ratio] 1.3 {ratio} Normal 1.1 - 2.2 [facility] ALP [Catalytic activity/Vol] 81 [iU]/d Normal 21 - 98 Int._Unit/L [facility] ALT No additional P-5'-P [Catalytic activity/Vol] 26 [iU]/d Normal 6 - 46 Int._Unit/L [facility] Anion gap [Moles/Vol] 12 mmol/L Normal 6 - 16 mEq/L [facility] AST [Catalytic activity/Vol] 20 [iU]/d Normal 5 - 43 Int._Unit/L [facility] Bilirubin [Mass/Vol] 0.3 mg/dL Normal 0.0 - 1 .1 mg/dL [facility] Bilirubin.direct [Mass/Vol] 0.1 mg/dL Normal 0.0 - 0.4 mg/dL [facility] Bilirubin.indirect [Mass or moles/Vol] 0.2 mg/dL Normal 0.1 - 0.9 mg/dL [facility] Calcium [Mass/Vol] 9.0 mg/dL Normal 8.9 - 11. 1 mg/dL [facility] Chloride [Moles/Vol] 104 mmol/L Normal 101 - 1 11 mmol/L [facility] CO2 [Moles/Vol] 27 mmol/L Normal 21 - 31 mmol/L [facility] Creatinine [Mass/Vol] 0.9 mg/dL Normal 0.5 - 1.3 mg/dL [facility] eGFR 75 mL/min/1.73 m2 Normal >=59mL/min / 1.73 m2 [facility] Globulin (S) [Mass/Vol] 3.2 g/dL Normal 1.4 - 4.0 gm/dL [facility] Glucose [Mass/Vol] 100 mg/dL Normal 55 - 199 mg/dL [facility] Lipase [Catalytic activity/Vol] 23 U/L Normal 13 - 58 unit/L [facility] Potassium [Moles/Vol] 4.0 mmol/L Normal 3.5 - 5.3 mmol/L [facility] Protein [Mass/Vol] 7.4 g/dL Normal 6.0 - 7.8 gm/dL [facility] Sodium [Moles/Vol] 139 mmol/L Normal 135 - 145 mmol/L [facility] Troponin 2.80 pg/mL Low 10.10 - 27.10 pg/mL [facility] Comment on above: Interpretive Data: T he 95% CI (Confidence Interval) PPV (Positive Predictive Value) for myocardial infarction in females is 38 pg/mL, in males 51 pg/mL. The results should be used in conjunction with clinical conditions of myocardial infarction. (Access High Sensitivity Troponin I Instructions For Use, Lorenzo [place], January 2018) Urea nitrogen [Mass/Vol] 21 mg/dL Normal 5 - 21 mg/dL [facility] Urea nitrogen/Creatinine [Mass ratio] 23 mg/mg High 10 - 20 [facility] COAGULATIONOrdered By: Kiana Bruno on 11-12-2023 aPTT Coag (PPP) [Time] 37.2 s High 25.1 - 36.5 second(s) [facility] Comment on above: Interpretive Data: P arameter 15 days - 4 weeks 1 - 5 months 6 - 11 months 1 - 5 years 6 - 10 years 11 - 17 years PTT Mean: 35.4 (27.6-45.6) Mean: 33.5 (24.8-40.7) Mean: 32.4 (25.1-40.7) Mean: 31.6 (24.0-39.2) Mean: 31.6 (26.9-38.7) Mean: 31.0 (24.6-38.4) Pediatric Reference ranges were obtained from a study by Eddi Zhu et al. prepared from 1437 samples obtained at 7 different centers using the same coagulation reagent and instrumentation as [facility]. Currently there are no coagulation studies available worldwide for children to 14 days, and no normal ranges. Heparin therapeutic range (represented by Anti-Factor Xa activity of 0.2 - 0.4 U/mL) corresponds to PTT of 56.6 - 109.0 sec. INR Coag (PPP) [Relative time] 0.99 {INR} Invalid Interpretation Code [facility] Comment on above: Interpretive Data: I NR results are specifically intended to assess patients stabilized on long-term Anticoagulation therapy suggested INR s Less Intensive Anticoagulation 2.0 3.0 Conventional Range 3.0 4.5 PT Coag (PPP) [Time] 11.1 s Normal 9.4 - 1 2.5 second(s) [facility] Comment on above: Interpretive Data: 1 5 days - 4 weeks 1 - 5 months 6 -11 months 1 5 years 6 10 years 11 -17 years Mean: 11.2 (9.5 12.6) Mean: 11.0 (9.7 12.8) Mean: 11.0 (9.8 13.0) Mean: 11.3 (9.9 13.4) Mean: 11.7 (10.0 14.6) Mean: 11.8 (10.0 - 14.1) Pediatric Reference ranges were obtained from a study by seymour Saenz al. prepared from 1437 samples obtained at 7 different centers using the same coagulation reagent and instrumentation as [facility]. Currently there are no coagulation studies available worldwide for children to 14 days, and no normal ranges. Consent for Treatmenton 10-17 Consent for Treatment [id number] Normal [facility] Discharge Instructionson Discharge Instructions [id number] Normal [facility] ED Clinical Summaryon 2023 ED Clinical Summary (Inserted Image. Sarah ble to display) [place] [id number] ED Clinical Summary Person Information Name: RASHEEDA HANNA Varg[place]se [place] Age: 53 Years : 1970 Sex: Female Language: Mohawk PCP: Micah Diaz DO Marital Status: Visit Id: Visit Reason: Jaw pain; Shortness of breath; Chest pain; CHEST PAIN Speciality: Acuity: 2 Enc Type: Emergency Med Service: Emergency Arrival: 11/12/2023 20:33:38 Discharge: 11/12/2023 23:46:58 LOS: 000 03:13 Checkin: 11/12/2023 20:33:38 Checkout: 11/12/2023 23:46:58 Dispo Type: Home (Routine DC) EVENTS: Event Name Event Status Request Date/Time Start Date/Time Complete Date/Time Arrive Complete 11/12/2023 20:33:38 11/12/2023 20:33:38 11/12/2023 20:33:38 Document Home Meds Request 11/12/2023 20:33:38 Triage Complete 11/12/2023 20:33:38 11/12/2023 20:43:45 11/12/2023 20:43:45 EKG Complete 11/12/2023 20:35:26 11/12/2023 20:41:03 Pending Labs Complete 11/12/2023 20:35:33 11/12/2023 23:26:25 Lab Complete 11/12/2023 20:35:33 11/12/2023 21:25:12 Patient Care Request 11/12/2023 20:35:33 RT Request 11/12/2023 20:35:33 X-Ray Complete 11/12/2023 20:35:33 11/12/2023 20:47:14 11/12/2023 21:11:07 Registration Complete 11/12/2023 20:37:32 11/12/2023 20:37:32 11/12/2023 20:37:32 Reg Complete Request 11/12/2023 20:37:32 Reg Bed Request Complete 11/12/2023 20:37:32 11/12/2023 20:37:32 11/12/2023 20:37:32 Bed Assign Complete 11/12/2023 20:39:29 11/12/2023 20:39:29 11/12/2023 20:39:29 Dr Exam Complete 11/12/2023 20:39:29 11/12/2023 20:39:51 11/12/2023 20:39:51 RN Exam Complete 11/12/2023 20:39:29 11/12/2023 21:00:31 11/12/2023 21:00:31 Registration Request 11/12/2023 20:39:51 Pending Labs Complete 11/12/2023 21:00:08 11/12/2023 21:00:08 11/12/2023 21:25:12 Lab Complete 11/12/2023 21:00:08 11/12/2023 21:00:08 11/12/2023 21:25:12 Wet Read Request 11/12/2023 21:11:07 EKG Complete 11/12/2023 22:06:23 11/12/2023 22:18:33 Meds Admin Complete 11/12/2023 22:20:32 11/12/2023 22:32:33 Meds Admin Complete 11/12/2023 22:21:06 11/12/2023 22:32:33 Pending Labs Complete 11/12/2023 22:23:32 11/12/2023 22:23:32 11/12/2023 22:23:33 Discharge Complete 11/12/2023 23:28:11 11/12/2023 23:47:15 11/12/2023 23:47:15 Transfer Complete 11/12/2023 23:47:15 11/12/2023 23:47:15 11/12/2023 23:47:15 ADDRESS: [address] [place] [id number] [facility] DOC NOTES: MEDICAL INFORMATION: Prescriptions Given: Medications to Continue with No Changes Other Medications aspirin (aspirin 81 mg Oral EC Tab) 1 Tablets By Mouth every day. Refills: 3. flecainide (flecainide 100 mg Tab) meloxicam (meloxicam 15 mg Tab) 1 Tablets. metoprolol (metoprolol 25 mg ER Tab) 1 Tablets By Mouth every day. Refills: 3. omeprazole (omeprazole 40 mg Cap-DR) 1 Capsules By Mouth every day. sertraline (sertraline 50 mg Tab) 1 Tablets By Mouth every day. solifenacin (Vesicare 5 mg Tab) 1 Tablets By Mouth every day. PATIENT EDUCATION INFORMATION: Instructions: Nonspecific Chest Pain, Adult Follow up: With: Address: When: Skip Gonzalez In 3 days 11/15/2023 With: Address: When: Micah Diaz [address] [place], [place] [id number] In 3 days 11/15/2023 Comments: Call the office of your primary care doctor to arrange for follow-up within the above-stated timeframe. Follow-up with your primary care doctor about this ED visit. You should review your labs, imaging, and diagnoses from this ED visit with your primary care physician. There are occasionally non-emergent findings that require additional follow-up after your ED visit. If you were prescribed medications you should discuss possible side-effects and drug interactions with your pharmacist. Call 911 or go to the nearest Emergency Department if you develop any new or worsening symptoms. Seek immediate medical attention if you develop: worsening chest pain, new chest pain, nausea, vomiting, weakness, numbness, tingling, excessive sweating, shortness of breath, difficulty breathing, loss of motion in your arms or legs, or any new or worsening symptoms. DIAGNOSIS: Chest pain Normal [facility] ED Note-Physicianon 11-12-19 ED Note-Physician Basic Information Time Seen: Atilio Beltran DO 11/12/2023 20:39 Chief Complaint complains of mid chest pain radiating to neck and jaw. shoulder pain. sob. states has a heart history History of Present Illness 53-year-old female to the emergency department with chief complaint of chest discomfort. Patient reports she has had intermittent mid chest pain rating to her back/arm and jaw today. She has never had this pain before. It is different than GERD. There is some mild shortness of breath associated when she has the discomfort. She denies any fever, sweats, chills, cough. She denies any abdominal pain, nausea, vomiting. She has a history of sick sinus syndrome for which she underwent a full ischemic evaluation less than 2 years ago including a heart catheterization. She reports that she was told she had no coronary artery disease. Review of Systems A 10 point review of systems is negative except as noted above. Medical and Surgical History: Reviewed and noted Social history: Lives at home Tobacco: Denies Physical Exam Vitals & Measurements T: 36.5 ?C(Oral) HR: 64(Monitored) RR: 20 BP: 118/72 SpO2: 99% HT: 156 cm WT: 90 kg BMI: 36.98 VITALS: I have reviewed the triage vital signs. GENERAL: Well developed, well appearing adult in no acute distress. NEURO: Alert and oriented. Moves all extremities. Face is symmetric and expressive. EYES: PERRL. No scleral icterus or conjunctival injection. No discharge. HENT: Normocephalic, atraumatic. Hearing is grossly intact. Nares grossly patent and without discharge. Mucous membranes moist. NECK: No JVD. Patient moves neck without restriction. CARDIO: Rhythm regular. Normal rate. No murmur, rub, or gallop. Pulses equal bilaterally in the upper and lower extremity. No lower extremity edema. PULM: Lungs clear to auscultation in all evangelista. No wheezes, rales, or rhonchi. No conversational dyspnea. No splinting, stridor, or accessory muscle use. GI/: Abdomen is soft and non-tender. Normoactive bowel sounds. EXTREMITIES: Symmetric muscle bulk. No joint swelling. No clubbing, cyanosis, or deformity. SKIN: Warm and dry. Normal turgor. No rash or lesions appreciated. PSYCH: Mood, affect, and interaction is appropriate to the setting. Procedure Heart Score for Major Cardiac Event History: Example factors for history - pattern of chest pain, onset, duration, relation with exercise, stress or cold, localization, concomitant symptoms. reaction to sublingual nitrates, [] Highly suspicious +2 [] Moderately suspicious +1 [x] Slightly suspicious 0 EKG: [] Significant ST-Depression +2 [] Non specific repolarization disturbance +1 [x] Normal 0 Age: [] >= 65 +2 [x] 45-65 + 1 [] <45 0 Risk Factors: (HLD, HTN, DM, Cigarette Smoking, Pos Family Hx, Obesity) [x] >3 risk factors or hx of atherosclerotic disease + 2 [] 1-2 risk factors + 1 [] No risk factors known 0 Troponin: [] >= 3X normal + 2 [] 1-3X normal + 1 [x] <= Normal 0 ---- [x] 0-3 Points 0.9 - 1.7% risk of major adverse cardiac event in 6 weeks [] 4-6 Points 12-16.6% risk of major adverse cardiac event in 6 weeks [] 7-10 Points 50-65% risk of major adverse cardiac event in 6 weeks ---- [x] 0-3 Points with 2 sets of negative cardiac markers <1% risk of major adverse cardiac event in 30 days. ---- Medical Decision Making 53-year-old female to the emergency department chief complaint of chest discomfort. Vital stable, the patient is afebrile. Cardiac workup is initiated. Patient agrees with this plan. CBC and chemistry without major abnormalities. Her initial troponin is very low. Chest x-ray is without acute findings. EKG is without any evidence of ischemia, there are no changes from her previous EKGs. Patient is updated on initial workup results, she remains concerned. She reports it feels like my heart is in my throat . Will attempt to treat for reflux/esophageal spasm as potential etiology of her chest discomfort with GI cocktail and Pepcid. Repeat EKG was performed, no evidence of ischemia, no dynamic changes. Patient is low risk by HEART score. She is low risk by very low troponin with onset greater than 3 hours prior to arrival. She is within the warrantee period of her negative cardiac catheterization. I discussed the low risk nature of the patient's discomfort. She continues to have some mild discomfort. I did offer her admission for cardiac evaluation and she declined. She would like to go home which I do not believe is unreasonable given her negative workup. Return precautions were discussed. She will call her ethnographer to follow-up. All questions were answered. Patient was discharged home. Assessment/Plan Chest pain (R07.9: Chest pain, unspecified) Orders: acetaminophen, 650 mg = 2 tab(s), Tab, Oral, Once, Stop date (more content not included)... Normal [facility] Comment on above: Result Comment: Elec tronically Signed By: Atilio Beltran DO\.br\Date and Time Signed: 11/12/23 23:34 EDT ED Patient Education Noteon 11-12-2023 ED Patient Education Note Pulmonary Medicine Nonspecific Chest Pain, Adult Chest pain is an uncomfortable, tight, or painful feeling in the chest. The pain can feel like a crushing, aching, or squeezing pressure. A person can feel a burning or tingling sensation. Chest pain can also be felt in your back, neck, jaw, shoulder, or arm. This pain can be worse when you move, sneeze, or take a deep breath. Chest pain can be caused by a condition that is life-threatening. This must be treated right away. It can also be caused by something that is not life-threatening. If you have chest pain, it can be hard to know the difference, so it is important to get help right away to make sure that you do not have a serious condition. Some life-threatening causes of chest pain include: ? Heart attack. ? A tear in the body's main blood vessel (aortic dissection). ? Inflammation around your heart (pericarditis). ? A problem in the lungs, such as a blood clot (pulmonary embolism) or a collapsed lung (pneumothorax). Some non life-threatening causes of chest pain include: ? Heartburn. ? Anxiety or stress. ? Damage to the bones, muscles, and cartilage that make up your chest wall. ? Pneumonia or bronchitis. ? Shingles infection (varicella-zoster virus). Your chest pain may come and go. It may also be constant. Your health care provider will do tests and other studies to find the cause of your pain. Treatment will depend on the cause of your chest pain. Follow these instructions at home: Medicines ? Take [id number] and prescription medicines only as told by your health care provider. ? If you were prescribed an antibiotic medicine, take it as told by your health care provider. Do not stop taking the antibiotic even if you start to feel better. Activity ? Avoid any activities that cause chest pain. ? Do not lift anything that is heavier than 10 lb (4.5 kg), or the limit that you are told, until your health care provider says that it is safe. ? Rest as directed by your health care provider. ? Return to your normal activities only as told by your health care provider. Ask your health care provider what activities are safe for you. Lifestyle ? Do not use any products that contain nicotine or tobacco, such as cigarettes, e-cigarettes, and chewing tobacco. If you need help quitting, ask your health care provider. ? Do not drink alcohol. ? Make healthy lifestyle changes as recommended. These may include: ? Getting regular exercise. Ask your health care provider to suggest some exercises that are safe for you. ? Eating a heart-healthy diet. This includes plenty of fresh fruits and vegetables, whole grains, low-fat (lean) protein, and low-fat dairy products. A dietitian can help you find healthy eating options. ? Maintaining a healthy weight. ? Managing any other health conditions you may have, such as high blood pressure (hypertension) or diabetes. ? Reducing stress, such as with yoga or relaxation techniques. General instructions ? Pay attention to any changes in your symptoms. ? It is up to you to get the results of any tests that were done. Ask your health care provider, or the department that is doing the tests, when your results will be ready. ? Keep all follow-up visits as told by your health care provider. This is important. ? You may be asked to go for further testing if your chest pain does not go away. Contact a health care provider if: ? Your chest pain does not go away. ? You feel depressed. ? You have a fever. ? You notice changes in your symptoms or develop new symptoms. Get help right away if: ? Your chest pain gets worse. ? You have a cough that gets worse, or you cough up blood. ? You have severe pain in your abdomen. ? You faint. ? You have sudden, unexplained chest discomfort. ? You have sudden, unexplained discomfort in your arms, back, neck, or jaw. ? You have shortness of breath at any time. ? You suddenly start to sweat, or your skin gets clammy. ? You feel nausea or you vomit. ? You suddenly feel lightheaded or dizzy. ? You have severe weakness, or unexplained weakness or fatigue. ? Your heart begins to beat quickly, or it feels like it is skipping beats. These symptoms may represent a serious problem that is an emergency. Do not wait to see if the symptoms will go away. Get medical help right away. Call your local emergency services (911 in the [place] Do not drive yourself to the hospital. Summary ? Chest pain can be caused by a condition that is serious and requires urgent treatment. It may also be caused by something that is not life-threatening. ? Your health care provider may do lab tests and other studies to find the cause of your pain. ? Follow your health care provider's instructions on taking medicines, making lifestyle changes, and getting emergency treatment if symptoms become worse. ? Keep all follow-up visits as told by your (more content not included)... Normal [facility] ED Patient Summaryon 024 ED Patient Summary (Inserted Image. Sarah ble to display) [address] [address] Patient Discharge Instructions Person Information Name: RASHEEDA HANNA Age: 53 Years Arrival Date: 11/12/2023 20:33:38 Discharge Diagnosis: Chest pain Primary Care Physician: Micah Diaz DO Provider Information Primary Provider: Atilio Beltran DO Advanced Supply Chain Analyst:None The exam and treatment you received in the Emergency Department were for an urgent problem and are not intended as complete care. It is important that you follow up with a doctor, nurse practitioner, or physician?s environmental assistant for ongoing care. If your symptoms become worse or you do not improve as expected and you are unable to reach your usual health care provider, you should return to the Emergency Department. We are available 24 hours a day. RASHEEDA HANNA has been given the following list of patient education materials, prescriptions and follow-up instructions: Follow-up Instructions: With: Address: When: Skip Gonzalez In 3 days 11/15/2023 With: Address: When: Micah Diaz [address] [place], [place] [id number] In 3 days 11/15/2023 Comments: Call the office of your primary care doctor to arrange for follow-up within the above-stated timeframe. Follow-up with your primary care doctor about this ED visit. You should review your labs, imaging, and diagnoses from this ED visit with your primary care physician. There are occasionally non-emergent findings that require additional follow-up after your ED visit. If you were prescribed medications you should discuss possible side-effects and drug interactions with your pharmacist. Call 911 or go to the nearest Emergency Department if you develop any new or worsening symptoms. Seek immediate medical attention if you develop: worsening chest pain, new chest pain, nausea, vomiting, weakness, numbness, tingling, excessive sweating, shortness of breath, difficulty breathing, loss of motion in your arms or legs, or any new or worsening symptoms. In the event that this physician does not participate in your insurance network, please consult with your insurance company to find a nearby participating provider. Patient Education Materials: Nonspecific Chest Pain, Adult A MESSAGE TO ALL PATIENTS REGARDING OPIOIDS PRESCRIPTION OPIOIDS: WHAT YOU NEED TO KNOW Prescription opioids can be used to help relieve wsqkkpmy-ax-hfddhy pain and are often prescribed following a [...] about ways to help manage your pain yissel (more content not included)... Normal [facility] HEMATOLOGYOrdered By: SYSTEM SYSTEM on 11-12-2023 Basophils/100 WBC (Bld) 0.5 % Normal 0.0 - 2.0 % Remisol Heme Basophils/Leukocytes Auto (Bld) [Pure # fraction] 0.1 E9/L Normal 0.0 - 0.2 E9/L Remisol Heme Eosinophils (Bld) [#/Vol] 0.2 E9/L Normal 0.0 - 0.5 E9/L Remisol Heme Eosinophils/100 WBC (Bld) 2.4 % Normal 0.0 - 8.0 % Remisol Heme Erythrocyte distribution width (RBC) [Ratio] 13.5 % Normal 10.9 - 14.2 % Remisol Heme Hematocrit (Bld) [Volume fraction] 38.7 % Normal 34.0 - 46.0 % Remisol Heme Hemoglobin (Bld) [Mass/Vol] 13.3 g/dL Normal 12.0 - 16.0 gm/dL Remisol Heme Lymphocytes (Bld) [#/Vol] 2.8 E9/L Normal 1.0 - 4.0 E9/L Remisol Heme Lymphocytes/100 WBC (Bld) 28.5 % Normal 14.0 - 50.0 % Remisol Heme MCH (RBC) [Entitic mass] 31.7 pg Normal 27.0 - 34.0 pg Remisol Heme MCHC (RBC) [Mass/Vol] 34.3 g/dL Normal 31.4 - 36.0 gm/dL Remisol Heme MCV (RBC) [Entitic vol] 92.4 fL Normal 80.0 - 100.0 fL Remisol Heme Monocytes (Bld) [#/Vol] 0.8 E9/L Normal 0.2 - 1.0 E9/L Remisol Heme Monocytes/100 WBC (Bld) 8.2 % Normal 4.0 - 14.0 % Remisol Heme Neutrophils (Bld) [#/Vol] 5.9 E9/L Normal 2.0 - 7.5 E9/L Remisol Heme Neutrophils/100 WBC (Bld) 60.4 % Normal 36.0 - 75.0 % Remisol Heme Platelet mean volume (Bld) [Entitic vol] 8.8 fL Normal 6.4 - 10.8 fL Remisol Heme Platelets (Bld) [#/Vol] 237.0 E9/L Normal 150.0 - 500.0 E9/L Remisol Heme RBC (Bld) [#/Vol] 4.2 E12/L Low 4.3 - 5.9 E12/L Remisol Heme WBC corrected for nucl RBC Auto (Bld) [#/Vol] 9.7 E9/L Normal 4.0 - 11.0 E9/L Remisol Heme Hep Func Panelon 11-12-2023 Albumin [Mass/Vol] 4.2 g/dL Normal 3.3-5.0 [facility] Comment on above: Performed By: #### 2 [id number] #### [facility] [address] [place] [address] Albumin/Globulin (S) [Mass conc ratio] 1.3 Normal 1.1-2.2 [facility] Comment on above: Performed By: #### 2 725134 #### [facility] [address] [place] [address] ALP [Catalytic activity/Vol] 81 Int._Unit/L Normal 21-98 [facility] Comment on above: Performed By: #### 2 [id number] #### [facility] [address] [place] [address] ALT No additional P-5'-P [Catalytic activity/Vol] 26 Int._Unit/L Normal 6-46 [facility] Comment on above: Performed By: #### 2 079456 #### [facility] [address] [place] [address] AST [Catalytic activity/Vol] 20 Int._Unit/L Normal 5-43 [facility] Comment on above: Performed By: #### 2 647649 #### [facility] [address] [place] [address] Bilirubin [Mass/Vol] 0.3 mg/dL Normal 0.0-1.1 [facility] Comment on above: Performed By: #### 2 989945 #### [facility] [address] [place] [address] Bilirubin.direct [Mass/Vol] 0.1 mg/dL Normal 0.0-0.4 [facility] Comment on above: Performed By: #### 2 227133 #### [facility] [address] [place] [address] Bilirubin.indirect [Mass or moles/Vol] 0.2 mg/dL Normal 0.1-0.9 [facility] Comment on above: Performed By: #### 2 216004 #### [facility] [address] [place] [address] Globulin (S) [Mass/Vol] 3.2 g/dL Normal 1.4-4.0 [facility] Comment on above: Performed By: #### 2 493075 #### [facility] [address] [place] [address] Protein [Mass/Vol] 7.4 g/dL Normal 6.0-7.8 [facility] Comment on above: Performed By: #### 2 573181 #### [facility] [address] [place] [address] Lipase Levelon 11-12-2023 Lipase [Catalytic activity/Vol] 23 U/L Normal 13-58 [facility] Comment on above: Performed By: #### 2 139322 #### [facility] [address] [place] [address] Monitor Recordon 11-12-2023 Monitor Record [id number] Normal [facility] Monitor Record [id number]#1.00TIFF Normal [facility] PT & PTTon 11-12-2023 aPTT Coag (PPP) [Time] 37.2 second(s) High 25.1-36.5 [facility] Comment on above: Result Comment: Para meter 15 days - 4 weeks 1 - 5 months 6 - 11 months 1 - 5 years 6 - 10 years 11 - 17 years PTT Mean: 35.4 (27.6-45.6) Mean: 33.5 (24.8-40.7) Mean: 32.4 (25.1-40.7) Mean: 31.6 (24.0-39.2) Mean: 31.6 (26.9-38.7) Mean: 31.0 (24.6-38.4) Pediatric Reference ranges were obtained from a study by seymour Saenz al. prepared from 1437 samples obtained at 7 different centers using the same coagulation reagent and instrumentation as [facility]. Currently there are no coagulation studies available worldwide for children to 14 days, and no normal ranges. Heparin therapeutic range (represented by Anti-Factor Xa activity of 0.2 - 0.4 U/mL) corresponds to PTT of 56.6 - 109.0 sec. Performed By: #### 1 [id number] #### [facility] [address] [place] [address] INR Coag (PPP) [Relative time] 0.99 {INR} Invalid Interpretation Code [facility] Comment on above: Result Comment: INR results are specifically intended to assess patients stabilized on long-term Anticoagulation therapy suggested INR?s ?Less Intensive Anticoagulation? 2.0 ? 3.0 Conventional Range 3.0 ? 4.5 Performed By: #### 1 [id number] #### [facility] [address] [place] [address] PT Coag (PPP) [Time] 11.1 second(s) Normal 9.4-12.5 [facility] Comment on above: Result Comment: 15 d ays - 4 weeks 1 - 5 months 6 -11 months 1 ? 5 years 6 ? 10 years 11 -17 years Mean: 11.2 (9.5 ? 12.6) Mean: 11.0 (9.7 ? 12.8) Mean: 11.0 (9.8 ? 13.0) Mean: 11.3 (9.9 ? 13.4) Mean: 11.7 (10.0 ? 14.6) Mean: 11.8 (10.0 - 14.1) Pediatric Reference ranges were obtained from a study by Eddi Zhu et al. prepared from 1437 samples obtained at 7 different centers using the same coagulation reagent and instrumentation as [facility]. Currently there are no coagulation studies available worldwide for children to 14 days, and no normal ranges. Performed By: #### 1 [id number] #### [facility] [address] [place] [address] Troponin 0 Hr.on 11-12-2023 Troponin 2.80 pg/mL Low 10.10-27.10 [facility] Comment on above: Result Comment: The 95% CI (Confidence Interval) PPV (Positive Predictive Value) for myocardial infarction in females is 38 pg/mL, in males 51 pg/mL. The results should be used in conjunction with clinical conditions of myocardial infarction. (Access High Sensitivity Troponin I Instructions For Use, [employer], January 2018) Performed By: #### 1 [id number] #### [facility] [address] [place] [address] Troponin 1 Hr.on 11-12-2023 Troponin 3.50 pg/mL Low 10.10-27.10 [facility] Comment on above: Result Comment: The 95% CI (Confidence Interval) PPV (Positive Predictive Value) for myocardial infarction in females is 38 pg/mL, in males 51 pg/mL. The results should be used in conjunction with clinical conditions of myocardial infarction. (Access High Sensitivity Troponin I Instructions For Use, [employer], January 2018) Performed By: #### 1 [id number] #### [facility] [address] [place] [address] eGFRon 11-12-2023 eGFR 75 mL/min/1.73 m2 Normal >=59 [facility] Comment on above: Order Comment: Order added by Discern Expert. Performed By: #### 1 [id number] #### [facility] [address] [place] [address] CBC w/ Auto Diffon 4 Basophils/100 WBC (Bld) 0.6 % Normal 0.0-2.0 [facility] Comment on above: Performed By: #### 1 0195095, 0673431, 8653607, 4718133, 49902936, 369061583 ####[address] [place] [address] Basophils/Leukocytes Auto (Bld) [Pure # fraction] 0.0 E9/L Normal 0.0-0.2 [facility] Comment on above: Performed By: #### 1 3927531, 5221449, 2754369, 0341715, 49353472, 190377565 ####[address] [address] Eosinophils (Bld) [#/Vol] 0.3 E9/L Normal 0.0-0.5 [facility] Comment on above: Performed By: #### 1 4192027, 5897916, 1266350, 5724975, 42078946, 498452364 ####[address] [address] Eosinophils/100 WBC (Bld) 3.3 % Normal 0.0-8.0 [facility] Comment on above: Performed By: #### 1 4790392, 7421326, 4982865, 1336557, 66694779, 558312869 ####[address] [address] Erythrocyte distribution width (RBC) [Ratio] 13.9 % Normal 10.9-14.2 [facility] Comment on above: Performed By: #### 1 7963235, 7498377, 5411415, 2251866, 70423772, 024319942 ####[address] [place] [address] Hematocrit (Bld) [Volume fraction] 40.7 % Normal 34.0-46.0 [facility] Comment on above: Performed By: #### 1 4460221, 2970230, 4736434, 0547265, 40223259, 104531951 ####[address] [place] [address] Hemoglobin (Bld) [Mass/Vol] 13.5 g/dL Normal 12.0-16.0 [facility] Comment on above: Performed By: #### 1 3089611, 9380098, 8418076, 1351095, 11406244, 433255417 ####[address] [address] Lymphocytes (Bld) [#/Vol] 1.9 E9/L Normal 1.0-4.0 [facility] Comment on above: Performed By: #### 1 2161692, 6694027, 7325783, 5531694, 33308137, 851266265 ####[address] [address] Lymphocytes/100 WBC (Bld) 22.6 % Normal 14.0-50.0 [facility] Comment on above: Performed By: #### 1 5213594, 9082339, 3301396, 4272093, 07450761, 410321369 ####[address] [address] MCH (RBC) [Entitic mass] 30.8 pg Normal 27.0-34.0 [facility] Comment on above: Performed By: #### 1 0792713, 4868651, 9257716, 4542481, 26135483, 892540801 ####[address] [place] [address] MCHC (RBC) [Mass/Vol] 33.3 g/dL Normal 31.4-36.0 [facility] Comment on above: Performed By: #### 1 5595940, 3451407, 0591035, 6181722, 88302923, 640642895 ####[address] [address] MCV (RBC) [Entitic vol] 92.7 fL Normal 80.0-100.0 [facility] Comment on above: Performed By: #### 1 2161918, 9471123, 2377773, 6428444, 63787555, 299683734 ####[address] [place] [address] Monocytes (Bld) [#/Vol] 0.7 E9/L Normal 0.2-1.0 [facility] Comment on above: Performed By: #### 1 1297759, 7208498, 1721108, 1157859, 46195061, 537270831 ####[address] [place] [address] Neutrophils (Bld) [#/Vol] 5.6 E9/L Normal 2.0-7.5 [facility] Comment on above: Performed By: #### 1 2065803, 4444496, 9816961, 9679862, 37661581, 464050158 ####[address] [address] Neutrophils/100 WBC (Bld) 65.6 % Normal 36.0-75.0 [facility] Comment on above: Performed By: #### 1 0514353, 3533205, 9062167, 0831511, 92856985, 081840632 ####[address] [address] Platelet 275.0 E9/L Normal 150.0-500.0 [facility] Comment on above: Performed By: #### 1 1444461, 5967164, 1698155, 4997635, 22818276, 038560568 ####[address] [place] [address] Platelet mean volume (Bld) [Entitic vol] 9.0 fL Normal 6.4-10.8 [facility] Comment on above: Performed By: #### 1 0604398, 2386279, 0685890, 8905277, 71517530, 123231784 ####[address] [place] [address] RBC (Bld) [#/Vol] 4.4 E12/L Normal 4.3-5.9 [facility] Comment on above: Performed By: #### 1 1886992, 6971773, 1539508, 8689417, 63476720, 626432021 ####[facility] [address] [place] [address] WBC corrected for nucl RBC Auto (Bld) [#/Vol] 8.5 E9/L Normal 4.0-11.0 [facility] Comment on above: Performed By: #### 1 1348065, 9946668, 1913473, 2361051, 47758315, 634880336 ####[facility] [address] [place] [address] CHEMISTRYOrdered By: SYSTEM SYSTEM on 10-12-2023 Albumin [...] mg/dL Normal 0.0 - 1 .1 mg/dL Remisol Chem Calcium [Mass/Vol] 9.0 mg/dL Normal 8.9 - 11. 1 mg/dL Remisol Chem Chloride [Moles/Vol] 104 mmol/L Normal 101 - 1 11 mmol/L Remisol Chem Cholesterol [Mass/Vol] 209 mg/dL [...] (Bld) [Mass fraction] 5.8 % Normal <=5.9% [facility] ChemAutoSS CMPon 10-12-2023 Albumin [Mass/Vol] 4.1 g/dL Normal 3.3-5.0 [facility] Comment on above: Performed By: #### 1 3449745, 6603154, 1869827, 4950032, 13524437, 131343221 ####[facility] [address] [place] [address] Albumin/Globulin (S) [Mass conc ratio] 2.0 Normal 1.1-2.2 [facility] Comment on above: Performed By: #### 1 9201960, 7044355, 8406158, 5243827, 71920189, 297278121 ####[facility] [address] [place] [address] ALP [Catalytic activity/Vol] 75 Int._Unit/L Normal 21-98 [facility] Comment on above: Performed By: #### 1 3673313, 4914982, 0377343, 9366034, 01403915, 801386630 ####[facility] [address] [place] [address] ALT No additional P-5'-P [Catalytic activity/Vol] 32 Int._Unit/L Normal 6-46 [facility] Comment on above: Performed By: #### 1 2407472, 9828637, 4893036, 1982135, 26994686, 545558593 ####[address] [address] Anion gap [Moles/Vol] 10 mmol/L Normal 6-16 [facility] Comment on above: Performed By: #### 1 5792938, 3708097, 9484303, 1095052, 56717209, 040175998 ####[facility] [address] [place] [address] AST [Catalytic activity/Vol] 22 Int._Unit/L Normal 5-43 [facility] Comment on above: Performed By: #### 1 6999964, 6894154, 1055987, 0337424, 16574898, 526799116 ####[facility] [address] [place] [address] Bilirubin [Mass/Vol] 0.4 mg/dL Normal 0.0-1.1 [facility] Comment on above: Performed By: #### 1 7965538, 7267021, 9553172, 3586313, 86782951, 798058890 ####[facility] [address] [place] [address] Calcium [Mass/Vol] 9.0 mg/dL Normal 8.9-11.1 [facility] Comment on above: Performed By: #### 1 3937776, 3867884, 5947253, 2331608, 18848674, 552785256 ####[facility] [address] [place] [address] Chloride [Moles/Vol] 104 mmol/L Normal 101-111 [facility] Comment on above: Performed By: #### 1 0636722, 1643210, 2754988, 0610551, 91860396, 975439438 ####[facility] [address] [place] [address] CO2 [Moles/Vol] 29 mmol/L Normal 21-31 [facility] Comment on above: Performed By: #### 1 3390243, 1059094, 0548473, 3304414, 14371113, 146186497 ####[facility] [address] [place] [address] Creatinine [Mass/Vol] 0.8 mg/dL Normal 0.5-1.3 [facility] Comment on above: Performed By: #### 1 9852132, 2104281, 9875110, 5175487, 51588707, 989425249 ####[facility] [address] [place] [address] Globulin (S) [Mass/Vol] 2.0 g/dL Normal 1.4-4.0 [facility] Comment on above: Performed By: #### 1 9323748, 3356678, 4726476, 4284975, 94104558, 655670695 ####[facility] [address] [place] [address] Glucose [Mass/Vol] 125 mg/dL Normal 55-199 [facility] Comment on above: Performed By: #### 1 2499997, 2136894, 1972952, 9507688, 08239228, 159395931 ####[facility] [address] [place] [address] Potassium [Moles/Vol] 4.6 mmol/L Normal 3.5-5.3 [facility] Comment on above: Performed By: #### 1 9302992, 9443196, 5025826, 6376801, 70711802, 304793564 ####[facility] [address] [place] [address] Protein [Mass/Vol] 6.1 g/dL Normal 6.0-7.8 [facility] Comment on above: Performed By: #### 1 5822513, 6145749, 9435953, 5476083, 97159788, 344926373 ####[facility] [address] [place] [address] Sodium [Moles/Vol] 138 mmol/L Normal 135-145 [facility] Comment on above: Performed By: #### 1 9109343, 7840697, 4462692, 9696215, 86878080, 661961034 ####[facility] [address] [place] [address] Urea nitrogen [Mass/Vol] 22 mg/dL High 5-21 [facility] Comment on above: Performed By: #### 1 0045952, 4400725, 4652818, 3129056, 50999968, 434815841 ####[facility] [address] [place] [address] Urea nitrogen/Creatinine [Mass ratio] 28 No Units High 10-20 [facility] Comment on above: Performed By: #### 1 4843436, 4867644, 6984598, 8727233, 08841065, 954970522 ####[facility] [address] [place] [address] Consent for Treatmenton 09-17 Consent for Treatment [id number] Normal [facility] HEMATOLOGYOrdered By: SYSTEM SYSTEM on 10-12-2023 Basophils/100 WBC (Bld) 0.6 % Normal 0.0 - 2.0 % Remisol Heme Basophils/Leukocytes Auto (Bld) [Pure # fraction] 0.0 E9/L [...] Normal 4.0 - 11.0 E9/L Remisol Heme OfaD2rjl 10-12-2023 HbA1c (Bld) [Mass fraction] 5.8 % Normal <=5.9 [facility] Comment on above: Performed By: #### 1 2313336, 1752625, 7594044, 8180713, 36422768, 667908920 ####[facility] [address] [place] [address] Lipid Panelon 10-12-2023 Cholesterol [Mass/Vol] 209 mg/dL High 120-200 [facility] Comment on above: Performed By: #### 1 6903654, 3993453, 7673283, 2236793, 14433446, 290960559 ####[facility] [address] [place] [address] Cholesterol in HDL [Mass/Vol] 54 mg/dL Invalid Interpretation Code [facility] Comment on above: Result Comment: '>= 60 LOW RISK' '<= 40 HIGH RISK' Performed By: #### 1 6148466, 2400625, 2823860, 6860564, 11576511, 888523203 ####[facility] [address] [place] [address] Cholesterol in LDL [Mass/Vol] 132 mg/dL High <=129 [facility] Comment on above: Performed By: #### 1 0616150, 1855000, 8167214, 5643015, 34617416, 794209179 ####[facility] [address] [place] [address] Cholesterol in VLDL [Mass/Vol] 24 mg/dL Normal 7-40 [facility] Comment on above: Performed By: #### 1 7453565, 4284315, 4078190, 6638749, 64399094, 013114370 ####[facility] [address] [place] [address] Triglyceride [Mass/Vol] 118 mg/dL Normal <=149 [facility] Comment on above: Performed By: #### 1 3924752, 4037087, 3349118, 2980109, 48412917, 264048969 ####[facility] [address] [place] [address] TSH With T4fr Reflexon 10-11 TSH Qn 1.73 m[IU]/L Normal 0.34-5.60 [facility] Comment on above: Performed By: #### 1 1451468, 3575795, 6199299, 5615068, 05102226, 070419109 ####[facility] [address] [place] [address] eGFRon 10-12-2023 eGFR 87 mL/min/1.73 m2 Normal >=59 [facility] Comment on above: Order Comment: Order added by Discern Expert. Performed By: #### 1 5592998, 4033856, 9410694, 2294828, 57077380, 644570167 ####[facility] [address] [place] [address] Ambulatory Visit Summaryon 0 10-03-2023 Ambulatory Visit Summary RASHEEDA HANNA Varghese :1970 Visit Date:2023 Ambulatory Visit Instructions Your [...] fusion, Carpal tunnel, section, Cholecystectomy, Tubal ligation, [place] tooth. Discharge Vitals Heart Rate (Peripheral) 64 [...] schedule When you see providers outside of [facility], please request that they send office visit notes every time you're seen there - this helps us take better care of you [place] - for weight loss f/u 3-6 months Where: [address] [place] [address] [phone] You Need to Complete the Following CBC [...] Screening, No, Screening mammogram, encounter for, pp_set_radiology_subspecial [facility] Medications What How Much When Instructions Unchanged [...] a mix (more content not included)... Normal [facility] Family Medicine Office/Clini c Noteon 10-03-2023 Family Medicine Office/Clinic Note Chief Complaint EST CARE HPI Staff Establish Care: History: Last provider:Kayla Dent Any recent labs:NO Health Maintenance UTD: Colonoscopy: Due for cologuard PSA: N/A Mammogram: Due Pelvic/Pap: no Acute: Current issues/complaints: Discuss getting off Zoloft, Would like a Dr who will take care of all her issues. Cardio. Dr Federico Wing in [place] . History of Present Illness 52 Years old Female here for ESTABLISH CARE This patient is NEW TO ME Previous PCP was Kayla Dent DO Last appt with previous PCP was six weeks ago Social: The patient is ; [place] since November 05, 2021 The patient is currently working; [employer] for 1 years The patient has 3 child(jose) and 2 step children 3 grandchild(jose) no great grandchild(jose) Screening: Colon Cancer screening: cologuard five years ago; this patient does NOT have family history of colon cancer Breast cancer screening: Birads 18 Jun 2022; this patient does NOT have a family history of breast cancer Pap smear: 2019? (Dr. Kayla Dent) Labs: September 2022 List of Providers: Cardiology - Dr. Wing - doesn't follow with [facility]ATOR HPI staff / Chief Complaint confirmed with [...] control Referred for pelvic floor therapy Ordered: [facility] [place] Outpatient Physical Therapy Evaluate Patient, Develop a [...] reviewed as (more content not included)... Normal [facility] Comment on above: Result Comment: Elec tronically Signed By: Micah Diaz DO\Date and Time Signed: 10/03/23 19:51 EDT Patient Educationon 10-02-19 Patient Education [facility] Major Depressive Disorder, Adult Major depressive disorder [...] needs of life, such as food and fci. ? Being treated poorly because of race, sex, or gnosticist (discrimination). ? Health and mental problems that [...] Any drug use. General instructions ? Take hgbi-bpa-lhkdyms and prescription medicines and herbal preparations only as told by your doctor. ? Eat a healthy diet. ? Get a lot of sleep. ? Think about joining a support group. Your doctor may be able to suggest one. ? Keep all follow-up visits as told by your doctor. This is important. Where to find more information: ? National [place] on Mental Illness: www.nhan.org ? U.S. National [place] of Mental Health: www.nimh.nih.gov ? [place] [employer]: www.psychiatry.org/patients -families/ Contact a doctor [...] (911 i (more content not included)... Normal [facility] Physician Orderon 06-29-2023 Physician Order [id number]#1.00TIFF [facility] PT - Orderson 04-27-2023 PT - Orders [id number]#1.00TIFF [facility] Consent for Treatmenton Consent for Treatment [id number]#1.00TIFF [facility] PT - Assessmentson PT - Assessments [id number]#1.00TIFF [facility] PT - Consentson 04-26-2023 PT - Consents [id number]#1.00TIFF [facility] PT - Orderson 04-26-2023 PT - Orders [id number]#1.00TIFF [facility] Holter monitor studyon 04-18 This is [...] transmissions. Clinical correlation needs to be made [facility] Holter monitor studyOrdered By: Federico Wing on 04-18-2023 [facility] Work Phone: Consent for Treatmenton 03-18 Consent for Treatment [id number]#1.00TIFF Normal [facility] MRI Ankle w/o Contrast Right on [...] BENITA Technologist: JENNI Technical Comments None Normal [facility] RAD - MRI Screening Formon 1 RAD - MRI Screening Form [id number]#1.00TIFF Normal [facility] Physician Orderon 03-21-2023 Physician Order [id number]#1.00CD:127 Normal [facility] MRI Cardiac w/wo contrast fo r Morph/Funct and Valve Dzon 10-10-2022 MRI Cardiac w/wo contrast for Morph/Funct and Valve Dz [facility] [place] Work Phone: TH MRI CARDIAC RESONANCE MENG GING FOR VELOCITY FLOW MAPPINGon 10-10-2022 MRI CARDIAC RESONANCE IMAGING FOR VELOCITY FLOW MAPPING [facility] CMR Report Name: RASHEEDA HANNA : 1970 Scan Date: 2022-10-10 13:15:00 Electronically signed by NAILA LEACH 15:48:14 GENERAL INFORMATION HEIGHT: 60.00 in (152.40 cm) WEIGHT: 186.00 lbs (84.37 kgs) BSA: 1.81 m^2 BASELINE HR: 0 BPM SCAN LOCATION: [facility] REFERRING PHYSICIAN: FEDERICO WING ATTENDING PHYSICIAN: FEDERICO WING TECHNOLOGIST: GENARO DELONG ACCESSION NUMBER: [id number] CPT CODES: 42797, [ , ]38340 ICD10 CODES: R00.2, [ , ]I49.3 SUMMARY [...] . Normal (more content not included)... Normal [facility] MRI CARDIAC W/WO CONTRAST FOR MORPH/FUNCT AND VALVE [facility] 10-10-2022 MRI CARDIAC W/WO CONTRAST FOR MORPH/FUNCT AND VALVE [facility] CMR Report Name: RASHEEDA HANNA : 1970 Scan Date: 2022-10-10 13:15:00 Electronically signed by NAILA LEACH 15:48:14 GENERAL INFORMATION HEIGHT: 60.00 in (152.40 cm) WEIGHT: 186.00 lbs (84.37 kgs) BSA: 1.81 m^2 BASELINE HR: 0 BPM SCAN LOCATION: [facility] REFERRING PHYSICIAN: FEDERICO WING ATTENDING PHYSICIAN: FEDERICO WING TECHNOLOGIST: GENARO DELONG ACCESSION NUMBER: [id number] CPT CODES: 23008, [ , ]10340 ICD10 CODES: R00.2, [ , ]I49.3 SUMMARY [...] . Normal (more content not included)... Normal [facility] CHEMISTRYOrdered By: SYSTEM SYSTEM on 09-23-2022 Albumin [...] rate/Area] mL/min/1.73 m2 Normal >=59mL/min/ 1.73 m2 FT Chem S GFR/1.73 sq M.predicted among non-blacks [...] or Bone Graft Simulator, Implanted Breast Tissue District Attorney, Glucose Monitor, or Neulasta Device? : No Is the patient or breast feeding? : No What are the patient's signs and symptoms? : Tachycardia Patient Instructions Patient to follow up in 4-[address] Federico Wing MD Patient will INCREASE Flecainide to 100mg twice daily. Patient will need to complete an EKG on and Sunday of this week in [facility]- office will arrange for you. Patient [...] laboratory tests Chief Complaint Patient here for [facility] discharge follow up. Discharged 08/24. Palpitations, PVCs [...] no marcellus (more content not included)... Normal [employer] Tobacco Screening.on 023 Adult depression screening assessment No [facility] DO Work Phone: Fall risk assessment a) No falls within the last year [facility] DO Work Phone: Tobacco use status CPHS b) No [facility] DO Work Phone: BASIC METABOLIC PANELon 08-16 Anion gap [Moles/Vol] 11 mmol/L Normal 10 - 20 [facility] Comment on above: Performed By: #### T RPHS #### [address] [id number] Calcium [Mass/Vol] 8.9 mg/dL Normal 8.6 - 10.3 [facility] Comment on above: Performed By: #### T RPHS #### [address] [id number] Chloride [Moles/Vol] 104 mmol/L Normal 98 - 107 [facility] Comment on above: Performed By: #### T RPHS #### [address] [id number] Creatinine [Mass/Vol] 0.76 mg/dL Normal 0.50 - 1.05 [facility] Comment on above: Performed By: #### T RPHS #### [address] [id number] eGFR FEMALE >90 Normal >90 [facility] Comment on above: Result Comment: CALC ULATIONS OF ESTIMATED GFR ARE PERFORMED USING THE 2020 CKD-EPI STUDY REFIT EQUATION WITHOUT THE RACE VARIABLE FOR THE IDMS-TRACEABLE CREATININE METHODS. https://jasn.asnjournals.org/content/early//ASN.7880903 988 Performed By: #### T RPHS #### [address] [id number] Glucose [Mass/Vol] 99 mg/dL Normal 74 - 99 [facility] Comment on above: Performed By: #### T RPHS #### [address] [id number] HCO3 (Bld) [Moles/Vol] 26 mmol/L Normal 21 - 32 [facility] Comment on above: Performed By: #### T RPHS #### [address] [id number] Potassium [Moles/Vol] 3.8 mmol/L Normal 3.5 - 5.3 [facility] Comment on above: Performed By: #### T RP #### [address] [id number] Sodium [Moles/Vol] 137 mmol/L Normal 136 - 145 [facility] Comment on above: Performed By: #### T RP #### [address] [id number] Urea nitrogen [Mass/Vol] 16 mg/dL Normal 6 - 23 [facility] Comment on above: Performed By: #### T RP #### [address] [id number] CBCon 08-25-2022 Erythrocyte distribution width (RBC) [Ratio] 12.6 % Normal 11.5 - 14.5 [facility] Comment on above: Performed By: #### C BC #### [address] [id number] Hematocrit (Bld) [Volume fraction] 38.4 % Normal 36.0 - 46.0 [facility] Comment on above: Performed By: #### C BC #### [address] [id number] Hemoglobin (Bld) [Mass/Vol] 13.1 g/dL Normal 12.0 - 16.0 [facility] Comment on above: Performed By: #### C BC #### [address] [id number] MCHC (RBC) [Mass/Vol] 34.1 g/dL Normal 32.0 - 36.0 [facility] Comment on above: Performed By: #### C BC #### [address] [id number] MCV (RBC) [Entitic vol] 92 fL Normal 80 - 100 [facility] Comment on above: Performed By: #### C BC #### [address] [id number] Platelets (Bld) [#/Vol] 248 10*3/uL Normal 150 - 450 [facility] Comment on above: Performed By: #### C BC #### [address] [id number] RBC 4.18 x10E12/L Normal 4.00 - 5.20 [facility] Comment on above: Performed By: #### C BC #### [address] [id number] WBC (Bld) [#/Vol] 9.6 10*3/uL Normal 4.4 - 11.3 [facility] Comment on above: Performed By: #### C BC #### [address] [id number] Daily Progress Note-Electrop hysiologyon 08-25-2022 Daily Progress Note-Electrophysiolo gy Consult Type: subsequent visit/care Service: Electrophysiology Subjective Data: RASHEEDA HANNA is a 51 year old Female who is Hospital Day # 4. Additional Information: still with c/o palpitations/ chest pain approximately 1 hour prior to receiving dose of flecainide Up out of bed ambulating in room and bianchi Objective Data: Objective Information: T PRBPMAPSpO2 Value36.73870965/501704% Date/Time08/25 12: 12: 12: 12: 12: 12:17 [...] to better control of PVCs. EKG in [place] office on Monday 08/28 and Tuesday 08/29 [...] day Patien (more content not included)... Normal [facility] Electrocardiogram 12 Leadon 08-25-2022 Electrocardiogram 12 Lead Ventricular Rate 71 Atrial Rate 71 P-R Interval 166 QRS Duration 88 Q-T Interval 380 QTC Calculation(Bazett) 412 P [place] 59 R [place] 61 T [place] 56 QRS Count 12 Q Onset 219 P Onset 136 P Offset 195 T Offset 409 QTC Fredericia 402 Diagnosis Class Borderline Abnormal Diagnosis Normal sinus rhythm Normal ECG When compared with ECG of 09-MAR-2023 20:23, premature ventricular complexes is no longer present Confirmed by Naila Leach ([id number]) on 08/26/2022 1:34:29 PM Normal [facility] Laboratory - Chemistry and C hemistry - challengeon 08-25-2022 Anion gap [Moles/Vol] 11 mmol/L 10 - 20 [facility] [place] Work Phone: Calcium [Mass/Vol] 8.9 mg/dL 8.6 - 10.3 [facility] [place] Work Phone: Chloride [Moles/Vol] 104 mmol/L 98 - 107 [facility] [place] Work Phone: CO2 [Moles/Vol] 26 mmol/L 21 - 32 [facility] [place] Work Phone: Creatinine [Mass/Vol] 0.76 mg/dL See Below [facility] [place] Work Phone: Comment on above: Reference Range: 0.5 0 - 1.05 Glucose [Mass/Vol] 99 mg/dL 74 - 99 [facility] [place] Work Phone: Potassium [Moles/Vol] 3.8 mmol/L 3.5 - 5.3 [facility] [place] Work Phone: Sodium [Moles/Vol] 137 mmol/L 136 - 145 [facility] [place] Work Phone: Urea nitrogen [Mass/Vol] 16 mg/dL 6 - 23 [facility] [place] Work Phone: Laboratory - Hematology and Cell countson 08-25-2022 Erythrocyte distribution width (RBC) [Ratio] 12.6 % See Below [facility] [place] Work Phone: Comment on above: Reference Range: 11. 5 - 14.5 Hematocrit (Bld) [Volume fraction] 38.4 % See Below [facility] [place] Work Phone: Comment on above: Reference Range: 36. 0 - 46.0 Hemoglobin (Bld) [Mass/Vol] 13.1 g/dL See Below [facility] Work Phone: Comment on above: Reference Range: 12. 0 - 16.0 MCHC (RBC) [Mass/Vol] 34.1 g/dL See Below [facility] Work Phone: Comment on above: Reference Range: 32. 0 - 36.0 MCV (RBC) [Entitic vol] 92 fL 80 - 100 [facility] Work Phone: Platelets (Bld) [#/Vol] 248 10*3/uL 150 - 450 [facility] Work Phone: RBC (Bld) [#/Vol] 4.18 {x10E12/L} See Below [facility] Work Phone: Comment on above: Reference Range: 4.0 0 - 5.20 WBC (Bld) [#/Vol] 9.6 10*3/uL 4.4 - 11.3 [facility] Work Phone: MAGNESIUMon 08-25-2022 Magnesium [Mass/Vol] 1.91 mg/dL Normal 1.60 - 2.40 [facility] Comment on above: Performed By: #### M G #### [address] [id number] Magnesium, Serumon 3 Magnesium [Mass/Vol] 1.91 mg/dL See Below [facility] Work Phone: Comment on above: Reference Range: 1.6 0 - 2.40 No Panel Informationon 08-25 [email or web address]?R etrieveTestByDateTime?Patie vbKZ=[id number]&Date= 023&Time=06%3a43%3a42%3a00& TestType=ECG&Site=11&Output Type=PDF&Ext=PDF [facility] DO Work Phone: [phone] Normal sinus rhythm [facility] DO Work Phone: [phone] Borderline Abnormal [facility] DO Work Phone: [phone] [facility] DO Work Phone: [phone] [facility] DO Work Phone: [phone] 1 [facility] DO Work Phone: [phone] [facility] DO Work Phone: [phone] 1 [facility] DO Work Phone: [phone] [facility] DO Work Phone: [phone] [facility] DO Work Phone: [phone] 1 [facility] DO Work Phone: [phone] [facility] DO Work Phone: [phone] [facility] DO Work Phone: [phone] [facility] DO Work Phone: [phone] [facility] DO Work Phone: [phone] [facility] DO Work Phone: [phone] [facility] DO Work Phone: >[phone] >[phone] [facility] [place] Work Phone: Comment on above: CALCULATIONS OF LINDSEY MATED GFR ARE PERFORMED USING THE 2020 CKD-EPI STUDY REFIT EQUATION WITHOUT THE RACE VARIABLE FOR THE IDMS-TRACEABLE CREATININE METHODS.https://jasn.asnjournals.org/content/early/ASN .6745549187 BASIC METABOLIC PANELon 03-0 GFR/1.73 sq M.predicted among non-blacks MDRD (S/P/Bld) [Vol rate/Area] 90 mL/min/{1.73_m2} Normal >90 [facility] Comment on above: Result Comment: CALC ULATIONS OF ESTIMATED GFR ARE PERFORMED USING THE 2020 CKD-EPI STUDY REFIT EQUATION WITHOUT THE RACE VARIABLE FOR THE IDMS-TRACEABLE CREATININE METHODS. https://jasn.asnjournals.org/content//ASN.2974519 988 Performed By: #### T RPHS #### [address] [id number] HCO3 (Bld) [Moles/Vol] 25 mmol/L Normal 21 - 32 [facility] Comment on above: Performed By: #### T RPHS #### [address] [id number] Anion gap [Moles/Vol] 12 mmol/L Normal 10 - 20 [facility] [place] Work Phone: Comment on above: Performed By: #### T RPHS #### [address] [id number] Calcium [Mass/Vol] 8.9 mg/dL Normal 8.6 - 10.3 [facility] [place] Work Phone: Comment on above: Performed By: #### T RPHS #### [address] [id number] Chloride [Moles/Vol] 104 mmol/L Normal 98 - 107 [facility] [place] Work Phone: Comment on above: Performed By: #### T RPHS #### [address] [id number] Creatinine [Mass/Vol] 0.78 mg/dL Normal 0.50 - 1.05 [facility] [place] Work Phone: Comment on above: Reference Range: 0.5 0 - 1.05 Performed By: #### T RPHS #### [address] [id number] Glucose [Mass/Vol] 109 mg/dL High 74 - 99 [facility] [place] Work Phone: Comment on above: Performed By: #### T RPHS #### [address] [id number] Potassium [Moles/Vol] 4.0 mmol/L Normal 3.5 - 5.3 [facility] Work Phone: Comment on above: Performed By: #### T RPHS #### [address] [id number] Sodium [Moles/Vol] 137 mmol/L Normal 136 - 145 [facility] [place] Work Phone: Comment on above: Performed By: #### T RP #### [address] [id number] Urea nitrogen [Mass/Vol] 17 mg/dL Normal 6 - 23 [facility] Work Phone: Comment on above: Performed By: #### T RPHS #### [address] [id number] CBCon 08-24-2022 Erythrocyte distribution width (RBC) [Ratio] 12.6 % Normal 11.5 - 14.5 [facility] Comment on above: Performed By: #### C BC #### [address] [id number] Hematocrit (Bld) [Volume fraction] 39.8 % Normal 36.0 - 46.0 [facility] Comment on above: Performed By: #### C BC #### [address] [id number] Hemoglobin (Bld) [Mass/Vol] 13.5 g/dL Normal 12.0 - 16.0 [facility] Comment on above: Performed By: #### C BC #### [address] [id number] MCHC (RBC) [Mass/Vol] 33.9 g/dL Normal 32.0 - 36.0 [facility] Comment on above: Performed By: #### C BC #### [address] [id number] MCV (RBC) [Entitic vol] 92 fL Normal 80 - 100 [facility] Comment on above: Performed By: #### C BC #### [address] [id number] Platelets (Bld) [#/Vol] 264 10*3/uL Normal 150 - 450 [facility] Comment on above: Performed By: #### C BC #### [address] [id number] RBC 4.32 x10E12/L Normal 4.00 - 5.20 [facility] Comment on above: Performed By: #### C BC #### [address] [id number] WBC (Bld) [#/Vol] 9.3 10*3/uL Normal 4.4 - 11.3 [facility] Comment on above: Performed By: #### C BC #### [address] [id number] Daily Progress Note-Electrop hysiologyon 08-24-2022 Daily Progress [...] day Objective Data: Objective Information: T PRBPMAPSpO2 Value36.649142/839816% Date/Time08/24 7: 7: 7: 7: 7:20 Range(36.1C [...] Updated: 24-Aug-2022 13:51 by Federico Wing) Normal [facility] Daily Progress Note-Medicine on 08-24-2022 Daily Progress [...] resolved. Objective Data: Objective Information: T PRBPMAPSpO2 Value36.177300/896050% Date/Time08/24 15: 15: 15: 15: 15:18 Range(36.1C [...] Updated: 24-Aug-2022 16:43 by Skip Kelly) Normal [facility] Discharge [id number] Discharge Profile2 Discharge Orders: Anticipated Discharge Date: Anticipated Discharge [id number] Hospital Providers: Provider RoleProvider Name AttendingSkip Kelly Alberto DNAR: Code Status at Discharge: Full Code Activity: activity as tolerated. Provider FINAL REVIEW of Orders: Final Review: Final Review of Medication Reconciliation and Orders Completedby Physician Reviewing Viki Kelly MD at 25-Aug-2022 13:14:58 Appointments: Follow-Up Appointment 01: Physician/Dept/ServiceDr. Wing Reason for ReferralElectrophysiology follow-up Scheduled Date/[id number] 11:45 [facility] office in [address] Phone [phone] Other Clinician Instructions: Other Instructions: Other Clinician InstructionsPlease follow up in the [place] office as discussed with EP for repeat EKGs on monday 08/28 and tuesday 08/29. You will be increasing your flecainide to 75mg twice daily on Sunday. Please call the office or return to the hospital if you have worsening chest pain, shortness of breath, if you pass out, or have any other concerning symptoms. Electronic Signatures: Felicita Bhagat (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) (Signed 24-Aug-2022 14:30) Authored: Discharge Orders, Appointments, Gold Form - Dry Chain Worker Summary Skip Kelly) (Signed 25-Aug-2022 13:14) Authored: Discharge Orders, Provider FINAL REVIEW of Orders, Other Clinician Instructions Last Updated: 25-Aug-2022 13:14 by Skip Kelly) Normal [facility] Electrocardiogram 12 Leadon 08-24-2022 Electrocardiogram 12 Lead Ventricular Rate 69 Atrial Rate 69 P-R Interval 136 QRS Duration 82 Q-T Interval 398 QTC Calculation(Bazett) 426 P [place] 39 R [place] 48 T [place] 45 QRS Count 11 Q Onset 218 P Onset 150 P Offset 193 T Offset 417 QTC Fredericia 417 Diagnosis Class Borderline Abnormal Diagnosis Sinus rhythm with frequent premature ventricular complexes in a pattern of bigeminy Otherwise normal ECG When compared with ECG of 24-AUG-2022 06:30, No significant change was found Confirmed by Naila Leach ([id number]) on 08/26/2022 1:28:10 PM Normal [facility] Electrocardiogram 12 Lead Ventricular Rate 62 Atrial Rate 62 P-R Interval 162 QRS Duration 86 Q-T Interval 392 QTC Calculation(Bazett) 397 P [place] 28 R [place] 46 T [place] 42 QRS Count 10 Q Onset 219 [...] Wing ([id number]) on 08/24/2022 8:32:51 AM Normal [facility] Laboratory - Chemistry and C hemistry - challengeon 08-24-2022 CO2 [Moles/Vol] 25 mmol/L 21 - [facility] Work Phone: Laboratory - Hematology and Cell countson 08-24-2022 Erythrocyte distribution width (RBC) [Ratio] 12.6 % See Below [facility] Work Phone: Comment on above: Reference Range: 11. 5 - 14.5 Hematocrit (Bld) [Volume fraction] 39.8 % See Below [facility] Work Phone: Comment on above: Reference Range: 36. 0 - 46.0 Hemoglobin (Bld) [Mass/Vol] 13.5 g/dL See Below [facility] Work Phone: Comment on above: Reference Range: 12. 0 - 16.0 MCHC (RBC) [Mass/Vol] 33.9 g/dL See Below [facility] Work Phone: Comment on above: Reference Range: 32. 0 - 36.0 MCV (RBC) [Entitic vol] 92 fL 80 - 100 [facility] Work Phone: Platelets (Bld) [#/Vol] 264 10*3/uL 150 - 450 [facility] Work Phone: RBC (Bld) [#/Vol] 4.32 {x10E12/L} See Below [facility]New [facility] Work Phone: Comment on above: Reference Range: 4.0 0 - 5.20 WBC (Bld) [#/Vol] 9.3 10*3/uL 4.4 - 11.3 [facility] [place] Work Phone: Magnesium, Serumon 3 Magnesium [Mass/Vol] 2.00 mg/dL Normal 1.60 - 2.40 On license of [facility] [place] Work Phone: Comment on above: Reference Range: 1.6 0 - 2.40 Performed By: #### M G #### [address] [id number] No Panel Informationon 08-24 [email or web address]?R etrieveTestByDateTime?Patie onYV=[id number]&Date= 023&Time=20%3a23%3a14%3a00& TestType=ECG&Site=11&Output Type=PDF&Ext=PDF [facility] DO Work Phone: [phone] Sinus rhythm with fr equent premature ventricular complexes in a pattern of bigeminy [facility] DO Work Phone: [phone] Borderline Abnormal [facility] DO Work Phone: [phone] [facility] DO Work Phone: [phone] [facility] DO Work Phone: [phone] [facility] DO Work Phone: [phone] [facility] DO Work Phone: [phone] [facility] DO Work Phone: [phone] [facility] DO Work Phone: [phone] [facility] DO Work Phone: [phone] [facility] DO Work Phone: [phone] [facility] DO Work Phone: [phone] [facility] DO Work Phone: [phone] 1 [facility] DO Work Phone: [phone] [facility] DO Work Phone: [phone] [facility] [address] DO Work Phone: [email or web address]?R etrieveTestByDateTime?Patie dqEC=[id number]&Date= 023&Time=06%3a30%3a53%3a00& TestType=ECG&Site=&Output Type=PDF&Ext=PDF [facility] [place] Work Phone: Sinus rhythm with occasional premature ventricular complexes [facility] [place] Work Phone: Borderline Abnormal [facility] [place] Work Phone: [phone] [facility] [place] Work Phone: [phone] [facility] [facility] [place] Work Phone: [phone] [facility] [place] Work Phone: [phone] [place] Work Phone: [phone] [facility] [place] Work Phone: [phone] [facility] [place] Work Phone: [phone] [facility] [place] Work Phone: [phone] [facility] [place] Work Phone: [phone] [facility] [place] Work Phone: [phone] [facility] [place] Work Phone: [phone] [facility] [place] Work Phone: [phone] [facility] [place] Work Phone: [phone] [facility] [place] Work Phone: [phone] [facility] [place] Work Phone: 90 {mL/min/1.73m2} >90 [facility] [place] Work Phone: [phone] Comment on above: CALCULATIONS OF LINDSEY MATED GFR ARE PERFORMED USING THE 2020 CKD-EPI STUDY REFIT EQUATION WITHOUT THE RACE VARIABLE FOR THE IDMS-TRACEABLE CREATININE METHODS.https://jasn.asnjournals.org/content/early//ASN .2146194247 Order Reconciliationon 08-24 Order Reconciliation Page 1 Discharge Reconciliation Document Reconciliation Type: Discharge requested on behalf of Skip Kelly (Physician) done by Skip Kelly) Discharge - Partial Reconciliation: 24-Aug-2022 09:08 by: Kayla Shaw ([facility]) Discharge - Partial Reconciliation: 25-Aug-2022 09:53 by: Kayla Shaw ([facility]) Discharge - Partial Reconciliation: 25-Aug-2022 12:31 by: Kayla Shaw ([facility]) Discharge - Reconciliation: 25-Aug-2022 13:15 by: Skip [...] [employer] (more content not included)... Normal [facility] Admission Risk Screen - Adul ton 08-23-2022 [...] AlertFor Ebola-like Symptoms: Isolate Patient and Notify Provider/Balling Head Tender For Contact: Notify Provider/Balling Head Tender Advance Directive: Advance Directive/DNRno Advance Directive Information [...] Learning Preferencesskill demonstration Cultural Considerationsnone Developmental Considerationsnone Orthodox Considerationsnone Learning Assessment (Other Learner): Other learner availableno Depression Screen: During the past month, have you often been bothered by feeling down, depressed or hopelessyes During the past month, have you often had little interest or pleasure in doing thingsno Have you had any thoughts of harming anyone elseno (1) Otto Suicide: Risk Screen Not Applicable/Able to Answerable to be screened In the Past Month: Have you wished you were or could go to sleep and not wake upno(1) In the Past Month: Have you had any actual thoughts of killing yourself no(1) Lifetime: Have you ever done, started to do, or prepared to do anything to end your lifeno Otto Suicide Risknegative Adult Nutrition Screen: Have you [...] Spiritual Screen: Are there any cultural, spiritual, voodoo practices/values/needs that are important for us to knowno CAGE: Is this an injure (more content not included)... Normal [facility] BASIC METABOLIC PANELon 03-0 Anion gap [Moles/Vol] 11 mmol/L Normal 10 - 20 [facility] Comment on above: Performed By: #### B MP #### [address] [id number] Calcium [Mass/Vol] 8.9 mg/dL Normal 8.6 - 10.3 [facility] Comment on above: Performed By: #### B MP #### [address] [id number] Chloride [Moles/Vol] 102 mmol/L Normal 98 - 107 [facility] Comment on above: Performed By: #### B MP #### [address] [id number] Creatinine [Mass/Vol] 0.92 mg/dL Normal 0.50 - 1.05 [facility] Comment on above: Performed By: #### B MP #### [address] [id number] GFR/1.73 sq M.predicted among non-blacks MDRD (S/P/Bld) [Vol rate/Area] 74 mL/min/{1.73_m2} Normal >90 [facility] Comment on above: Result Comment: CALC ULATIONS OF ESTIMATED GFR ARE PERFORMED USING THE 2020 CKD-EPI STUDY REFIT EQUATION WITHOUT THE RACE VARIABLE FOR THE IDMS-TRACEABLE CREATININE METHODS. https://jasn.asnjournals.org/content/early//ASN.5431464 988 Performed By: #### B MP #### [address] [id number] Glucose [Mass/Vol] 103 mg/dL High 74 - 99 [facility] Comment on above: Performed By: #### B MP #### [address] [id number] HCO3 (Bld) [Moles/Vol] 26 mmol/L Normal 21 - 32 [facility] Comment on above: Performed By: #### B MP #### [address] [id number] Potassium [Moles/Vol] 3.8 mmol/L Normal 3.5 - 5.3 [facility] Comment on above: Performed By: #### B MP #### [address] [id number] Sodium [Moles/Vol] 135 mmol/L Low 136 - 145 [facility] Comment on above: Performed By: #### B MP #### [address] [id number] Urea nitrogen [Mass/Vol] 17 mg/dL Normal 6 - 23 [facility] Comment on above: Performed By: #### B MP #### [address] [id number] CBCon 08-23-2022 Erythrocyte distribution width (RBC) [Ratio] 12.5 % Normal 11.5 - 14.5 [facility] Comment on above: Performed By: #### C BC #### [address] [id number] Hematocrit (Bld) [Volume fraction] 39.7 % Normal 36.0 - 46.0 [facility] Comment on above: Performed By: #### C BC #### [address] [id number] Hemoglobin (Bld) [Mass/Vol] 13.6 g/dL Normal 12.0 - 16.0 [facility] Comment on above: Performed By: #### C BC #### [address] [id number] MCHC (RBC) [Mass/Vol] 34.3 g/dL Normal 32.0 - 36.0 [facility] Comment on above: Performed By: #### C BC #### [address] [id number] MCV (RBC) [Entitic vol] 93 fL Normal 80 - 100 [facility] Comment on above: Performed By: #### C BC #### [address] [id number] Platelets (Bld) [#/Vol] 256 10*3/uL Normal 150 - 450 [facility] Comment on above: Performed By: #### C BC #### [address] [id number] RBC 4.25 x10E12/L Normal 4.00 - 5.20 [facility] Comment on above: Performed By: #### C BC #### [address] [id number] WBC (Bld) [#/Vol] 9.2 10*3/uL Normal 4.4 - 11.3 [facility] Comment on above: Performed By: #### C BC #### [address] [id number] Consult-Electrophysiologyon 08-23-2022 Consult-Electrophysi ology Service: Service: Electrophysiology Consult: Consult requested by (Attending Name): Skip Kelly Reason: symptomatic bradycardia, bigeminy History of Present Illness: HPI: RASHEEDA HANNA is a 51 year old Female evaluated in [facility] emergency room on 08/22/2022 secondary to palpitations, [...] Swelling, Hives/Urticaria Objective: Objective Information: T PRBPMAPSpO2 [id number]/731010% Date/Time08/23 9: 9: 16:443 9: 0:113/8 9:05 [...] 3:25:30 PM (more content not included)... Normal [facility] Daily Progress Note-Medicine on 08-23-2022 Daily Progress Note-Medicine Service: Medicine Subjective Data: RASHEEDA HANNA is a 51 year old Female who is Hospital Day # 2. Some bradycardia overnight. Feeling better today however, less dizziness. Still getting symptoms with positional changes however. No chest pain. No dyspnea. Objective Data: Objective Information: T PRBPMAPSpO2 Value36.86431332/363577% Date/Time08/23 14: 14: 16:443 14: 0:113 14:03 [...] Updated: 23-Aug-2022 16:31 by Skip Kelly) Normal [facility] Discharge Planning [id number] 08-23-2022 Discharge Planning Note2 Discharge Planning: Discharge DestinationHome Anticipated Discharge [id number] Discharge Planning 08/23/2022 1422 Care Transitions Note Rasheeda Hanna is a 51 year old female who was admitted to [facility] 08/22/2022 with dx of chest pain. Chart reviewed, automotive service writer spoke with patient- introduced self and explained role. Patient sitting up in bed. She is alert and oriented x3. Patient interacted well with automotive service writer and answered assessment questions appropriately. Demographics confirmed. PCP Dr. Kayla Dent who she saw in June and have follow-up in October. Pharmacy preference is [facility]. Prior to admission, lives with spouse in a 1 story home. Prior level of functioning independent no assistive device. She completed own adls and iadls. She is still working 42-50 hours a week. Director Phone discussed discharge needs/ concerns. She is currently denying any needs/ concerns. Her plan is home. Care Transitions to continue to monitor progression and address needs/ concerns as identified. ASHUTOSH Paulino Assessment: Discharge Planning Assessment [id number] Primary Contact Name and [phone] (spouse) He(1) Lives Withadult child(jose); dependent child(jose); spouse(1) Living Arrangementshouse(1) Stated Reason for AdmissionChest pain dizzy and SOB(1) [place] Resource/Environmental Concernsnon(1) [place] Services Anticipated at Transitionnon(1) Electronic Signatures: Lou Ferrer (HARRIET) (Signed 23-Aug-2022 14:34) Authored: Discharge Planning, Assessment Last Updated: 23-Aug-2022 14:34 by Lou Ferrer (HARRIET) References: 1. Data Referenced From Patient Profile - Adult v2 22-Aug-2022 22:19 Normal [facility] Laboratory - Chemistry and C hemistry - challengeon 08-23-2022 Anion gap [Moles/Vol] 11 mmol/L 10 - 20 [facility] [place] Work Phone: Calcium [Mass/Vol] 8.9 mg/dL 8.6 - 10.3 [facility] [place] Work Phone: Chloride [Moles/Vol] 102 mmol/L 98 - 107 [facility] [place] Work Phone: CO2 [Moles/Vol] 26 mmol/L 21 - 32 [facility] [place] Work Phone: Creatinine [Mass/Vol] 0.92 mg/dL See Below [facility] [place] Work Phone: Comment on above: Reference Range: 0.5 0 - 1.05 Glucose [Mass/Vol] 103 mg/dL above high threshold 74 - 99 [facility] Work Phone: Potassium [Moles/Vol] 3.8 mmol/L 3.5 - 5.3 [facility] Work Phone: Sodium [Moles/Vol] 135 mmol/L below low threshold 136 - 145 [facility] Work Phone: Urea nitrogen [Mass/Vol] 17 mg/dL 6 - 23 [facility] Work Phone: Laboratory - Hematology and Cell countson 08-23-2022 Erythrocyte distribution width (RBC) [Ratio] 12.5 % See Below [facility] Work Phone: Comment on above: Reference Range: 11. 5 - 14.5 Hematocrit (Bld) [Volume fraction] 39.7 % See Below [facility] Work Phone: Comment on above: Reference Range: 36. 0 - 46.0 Hemoglobin (Bld) [Mass/Vol] 13.6 g/dL See Below [facility] Work Phone: Comment on above: Reference Range: 12. 0 - 16.0 MCHC (RBC) [Mass/Vol] 34.3 g/dL See Below [facility] Work Phone: Comment on above: Reference Range: 32. 0 - 36.0 MCV (RBC) [Entitic vol] 93 fL 80 - 100 [facility] Work Phone: Platelets (Bld) [#/Vol] 256 10*3/uL 150 - 450 [facility] Work Phone: RBC (Bld) [#/Vol] 4.25 {x10E12/L} See Below [facility] Work Phone: Comment on above: Reference Range: 4.0 0 - 5.20 WBC (Bld) [#/Vol] 9.2 10*3/uL 4.4 - 11.3 [facility] Work Phone: No Panel Informationon 08-23 74 {mL/min/1.73m2} >90 [facility] [place] Work Phone: Comment on above: CALCULATIONS OF LINDSEY MATED GFR ARE PERFORMED USING THE 2020 CKD-EPI STUDY REFIT EQUATION WITHOUT THE RACE VARIABLE FOR THE IDMS-TRACEABLE CREATININE METHODS.https://jasn.asnjournals.org/content/early/ASN .3603941874 Patient Profile - Adult v2on 08-23-2022 Patient Profile - Adult v2 Profile: Initial Info: How to be AddressedPaula(1) Spoken Language PreferredEnglish (1) Stated Reason for AdmissionChest pain dizzy and SOB Primary Contact Name and [phone] (spouse) He Wants Family/Rep Notified of Admissionn/a; family present Notify PCPdeferred, unable to answer Informed of Patient Visiting Rightsyes [place] Employment Statusemployed Patient Belongingsremains with patient Patient Belongings Remaining with Patientcell phone/electronics; vision aids Medications Brought to Hospitalno General Health: Blood Avoidance/Restrictionsnone( 1) Previous Transfusion Reactionno(1) Weight in kg82.8 kilogram(s) Weight in krg607.5 pound(s) Weight Methodactual (measured) Scale Typestanding Height [...] From History and Physical 22-Aug-2022 17:58 Normal [facility] BASIC METABOLIC PANELon 03-0 ANION GAP Canceled Normal [facility] Comment on above: Order Comment: TEST BASIC METABOLIC PANEL WAS CANCELLED, 08/22/2022 20:12 This order is Barbi draw. Retiming 08/22/2022 20:12. Performed By: #### T RPHS #### [address] [id number] BICARBONATE Canceled Normal [facility] Comment on above: Order Comment: TEST BASIC METABOLIC PANEL WAS CANCELLED, 08/22/2022 20:12 This order is Barbi draw. Retiming 08/22/2022 20:12. Performed By: #### T RPHS #### [address] [id number] CALCIUM Canceled Normal [facility] Comment on above: Order Comment: TEST BASIC METABOLIC PANEL WAS CANCELLED, 08/22/2022 20:12 This order is Barbi draw. Retiming 08/22/2022 20:12. Performed By: #### T RPHS #### [address] [id number] CHLORIDE Canceled Normal [facility] Comment on above: Order Comment: TEST BASIC METABOLIC PANEL WAS CANCELLED, 08/22/2022 20:12 This order is Barbi draw. Retiming 08/22/2022 20:12. Performed By: #### T RPHS #### [address] [id number] CREATININE Canceled Normal [facility] Comment on above: Order Comment: TEST BASIC METABOLIC PANEL WAS CANCELLED, 08/22/2022 20:12 This order is Barbi draw. Retiming 08/22/2022 20:12. Performed By: #### T RPHS #### [address] [id number] eGFR FEMALE Canceled Normal [facility] Comment on above: Order Comment: TEST BASIC METABOLIC PANEL WAS CANCELLED, 08/22/2022 20:12 This order is Barbi draw. Retiming 08/22/2022 20:12. Result Comment: CALC ULATIONS OF ESTIMATED GFR ARE PERFORMED USING THE 2020 CKD-EPI STUDY REFIT EQUATION WITHOUT THE RACE VARIABLE FOR THE IDMS-TRACEABLE CREATININE METHODS. https://jasn.asnjournals.org/content/early/ASN.8014925 988 Performed By: #### T RPHS #### [address] [id number] eGFR MALE Canceled Normal [facility] Comment on above: Order Comment: TEST BASIC METABOLIC PANEL WAS CANCELLED, 08/22/2022 20:12 This order is Barbi draw. Retiming 08/22/2022 20:12. Result Comment: CALC ULATIONS OF ESTIMATED GFR ARE PERFORMED USING THE 2020 CKD-EPI STUDY REFIT EQUATION WITHOUT THE RACE VARIABLE FOR THE IDMS-TRACEABLE CREATININE METHODS. https://jasn.asnjournals.org/content/early/ASN.0140410 988 Performed By: #### T RPHS #### [address] [id number] GLUCOSE Canceled Normal [facility] Comment on above: Order Comment: TEST BASIC METABOLIC PANEL WAS CANCELLED, 08/22/2022 20:12 This order is Barbi draw. Retiming 08/22/2022 20:12. Performed By: #### T RP #### [address] [id number] POTASSIUM Canceled Normal [facility] Comment on above: Order Comment: TEST BASIC METABOLIC PANEL WAS CANCELLED, 08/22/2022 20:12 This order is Barbi draw. Retiming 08/22/2022 20:12. Performed By: #### T RP #### [address] [id number] SODIUM Canceled Normal [facility] Comment on above: Order Comment: TEST BASIC METABOLIC PANEL WAS CANCELLED, 08/22/2022 20:12 This order is Barbi draw. Retiming 08/22/2022 20:12. Performed By: #### T RP #### [address] [id number] UREA NITROGEN Canceled Normal [facility] Comment on above: Order Comment: TEST BASIC METABOLIC PANEL WAS CANCELLED, 08/22/2022 20:12 This order is Barbi draw. Retiming 08/22/2022 20:12. Performed By: #### T RP #### [address] [id number] CBCon 08-22-2022 HCT Canceled Normal [facility] Comment on above: Order Comment: TEST CBC WAS CANCELLED, 08/22/2022 20:12 This order is for AM draw. Jfbkfgcm84/07/2023 20:12. Performed By: #### M G #### [address] [id number] HGB Canceled Normal [facility] Comment on above: Order Comment: TEST CBC WAS CANCELLED, 08/22/2022 20:12 This order is for AM draw. Kgaudyrv19/07/2023 20:12. Performed By: #### M G #### [address], [place] [id number] MCHC Canceled Normal [facility] Comment on above: Order Comment: TEST CBC WAS CANCELLED, 08/22/2022 20:12 This order is for AM draw. Wkmnnfmw95/07/2023 20:12. Performed By: #### M G #### [address] [id number] MCV Canceled Normal [facility] Comment on above: Order Comment: TEST CBC WAS CANCELLED, 08/22/2022 20:12 This order is for AM draw. Yxdfxrpm21/07/2023 20:12. Performed By: #### M G #### [address], [place] [id number] NUCLEATED RBC Canceled Normal [facility] Comment on above: Order Comment: TEST CBC WAS CANCELLED, 08/22/2022 20:12 This order is for AM draw. Vktsdqxp60/07/2023 20:12. Performed By: #### M G #### [address], [place] [id number] PLT Canceled Normal [facility] Comment on above: Order Comment: TEST CBC WAS CANCELLED, 08/22/2022 20:12 This order is for AM draw. Wptsgdvm51/07/2023 20:12. Performed By: #### Mary Ann G #### [address] [id number] RBC Canceled Normal [facility] Comment on above: Order Comment: TEST CBC WAS CANCELLED, 08/22/2022 20:12 This order is for AM draw. Vnsfyujk28/07/2023 20:12. Performed By: #### M G #### [address], [place] [id number] RDW-CV Canceled Normal [facility] Comment on above: Order Comment: TEST CBC WAS CANCELLED, 08/22/2022 20:12 This order is for AM draw. Dcfmlvvv73/07/2023 20:12. Performed By: #### M G #### [address] [id number] WBC Canceled Normal [facility] Comment on above: Order Comment: TEST CBC WAS CANCELLED, 08/22/2022 20:12 This order is for AM draw. Yucsbysn24/07/2023 20:12. Performed By: #### M G #### [address] [id number] CBC AND DIFFERENTIALon 08-22 % AUTOMATED IMMATURE GRAN 0.4 % Normal 0.0 - 0.9 [facility] Comment on above: Result Comment: Patricia ture Granulocyte Count (IG) includes promyelocytes, myelocytes and metamyelocytes but does not include bands. Percent differential counts (%) should be interpreted in the context of the absolute cell counts (cells/L). Performed By: #### T RPHS #### [address] [id number] Basophils (Bld) [#/Vol] 0.07 10*3/uL Normal 0.00 - 0.10 [facility] Comment on above: Performed By: #### T RPHS #### [address] [id number] Basophils/100 WBC (Bld) 0.7 % Normal 0.0 - 2.0 [facility] Comment on above: Performed By: #### T RPHS #### [address] [id number] Eosinophils (Bld) [#/Vol] 0.12 10*3/uL Normal 0.00 - 0.70 [facility] Comment on above: Performed By: #### T RPHS #### [address] [id number] Eosinophils/100 WBC (Bld) 1.2 % Normal 0.0 - 6.0 [facility] Comment on above: Performed By: #### T RPHS #### [address] [id number] Erythrocyte distribution width (RBC) [Ratio] 12.4 % Normal 11.5 - 14.5 [facility] Comment on above: Performed By: #### T RPHS #### [address] [id number] Hematocrit (Bld) [Volume fraction] 42.8 % Normal 36.0 - 46.0 [facility] Comment on above: Performed By: #### T RPHS #### [address] [id number] Hemoglobin (Bld) [Mass/Vol] 14.6 g/dL Normal 12.0 - 16.0 [facility] Comment on above: Performed By: #### T RPHS #### [address] [id number] Lymphocytes (Bld) [#/Vol] 2.38 10*3/uL Normal 1.20 - 4.80 [facility] Comment on above: Performed By: #### T RPHS #### [address] [id number] Lymphocytes/100 WBC (Bld) 22.9 % Normal 13.0 - 44.0 [facility] Comment on above: Performed By: #### T RPHS #### [address] [id number] MCHC (RBC) [Mass/Vol] 34.1 g/dL Normal 32.0 - 36.0 [facility] Comment on above: Performed By: #### T RPHS #### [address] [id number] MCV (RBC) [Entitic vol] 93 fL Normal 80 - 100 [facility] Comment on above: Performed By: #### T RPHS #### [address] [id number] Monocytes (Bld) [#/Vol] 0.80 10*3/uL Normal 0.10 - 1.00 [facility] Comment on above: Performed By: #### T RPHS #### [address] [id number] Monocytes/100 WBC (Bld) 7.7 % Normal 2.0 - 10.0 [facility] Comment on above: Performed By: #### T RPHS #### [address] [id number] Neutrophils (Bld) [#/Vol] 7.00 10*3/uL Normal 1.20 - 7.70 [facility] Comment on above: Performed By: #### T RPHS #### [address] [id number] Neutrophils/100 WBC (Bld) 67.1 % Normal 40.0 - 80.0 [facility] Comment on above: Performed By: #### T RPHS #### [address] [id number] Platelets (Bld) [#/Vol] 285 10*3/uL Normal 150 - 450 [facility] Comment on above: Performed By: #### T RPHS #### [address] [id number] RBC 4.58 x10E12/L Normal 4.00 - 5.20 [facility] Comment on above: Performed By: #### T RPHS #### [address] [id number] WBC (Bld) [#/Vol] 10.4 10*3/uL Normal 4.4 - 11.3 [facility] Comment on above: Performed By: #### T RPHS #### [address] [id number] COMPREHENSIVE PANELon 2022 Albumin [Mass/Vol] 4.3 g/dL Normal 3.4 - 5.0 [facility] Comment on above: Performed By: #### T RPHS #### [address] [id number] ALP [Catalytic activity/Vol] 80 U/L Normal 33 - 110 [facility] Comment on above: Performed By: #### T RPHS #### [address] [id number] ALT [Catalytic activity/Vol] 29 U/L Normal 7 - 45 [facility] Comment on above: Result Comment: Selam ents treated with Sulfasalazine may generate falsely decreased results for ALT. Performed By: #### T RPHS #### [address] [id number] Anion gap [Moles/Vol] 13 mmol/L Normal 10 - 20 [facility] Comment on above: Performed By: #### T RPHS #### [address] [id number] AST [Catalytic activity/Vol] 22 U/L Normal 9 - 39 [facility] Comment on above: Performed By: #### T RPHS #### [address] [id number] Bilirubin [Mass/Vol] 0.4 mg/dL Normal 0.0 - 1.2 [facility] Comment on above: Performed By: #### T RPHS #### [address] [id number] Calcium [Mass/Vol] 9.4 mg/dL Normal 8.6 - 10.3 [facility] Comment on above: Performed By: #### T RPHS #### [address] [id number] Chloride [Moles/Vol] 102 mmol/L Normal 98 - 107 [facility] Comment on above: Performed By: #### T RPHS #### [address] [id number] Creatinine [Mass/Vol] 0.93 mg/dL Normal 0.50 - 1.05 [facility] Comment on above: Performed By: #### T RPHS #### [address] [id number] GFR/1.73 sq M.predicted among non-blacks MDRD (S/P/Bld) [Vol rate/Area] 73 mL/min/{1.73_m2} Normal >90 [facility] Comment on above: Result Comment: CALC ULATIONS OF ESTIMATED GFR ARE PERFORMED USING THE 2020 CKD-EPI STUDY REFIT EQUATION WITHOUT THE RACE VARIABLE FOR THE IDMS-TRACEABLE CREATININE METHODS. https://jasn.asnjournals.org/content//ASN.5498778 988 Performed By: #### T RPHS #### [address] [id number] Glucose [Mass/Vol] 92 mg/dL Normal 74 - 99 [facility] Comment on above: Performed By: #### T RPHS #### [address] [id number] HCO3 (Bld) [Moles/Vol] 28 mmol/L Normal 21 - 32 [facility] Comment on above: Performed By: #### T RPHS #### [address] [id number] Potassium [Moles/Vol] 3.8 mmol/L Normal 3.5 - 5.3 [facility] Comment on above: Performed By: #### T RPHS #### [address] [id number] Protein [Mass/Vol] 7.8 g/dL Normal 6.4 - 8.2 [facility] Comment on above: Performed By: #### T RPHS #### [address] [id number] Sodium [Moles/Vol] 139 mmol/L Normal 136 - 145 [facility] Comment on above: Performed By: #### T RPHS #### [address] [id number] Urea nitrogen [Mass/Vol] 16 mg/dL Normal 6 - 23 [facility] Comment on above: Performed By: #### T RPHS #### [address] [id number] Complete Blood Count + Diffe rentialon 08-22-2022 Basophils/100 WBC (Bld) 0.7 % 0.0 - 2.0 [facility] Work Phone: Erythrocyte distribution width (RBC) [Ratio] 12.4 % See Below [facility] Work Phone: Comment on above: Reference Range: 11. 5 - 14.5 Hematocrit (Bld) [Volume fraction] 42.8 % See Below [facility] Work Phone: Comment on above: Reference Range: 36. 0 - 46.0 Hemoglobin (Bld) [Mass/Vol] 14.6 g/dL See Below [facility] Work Phone: Comment on above: Reference Range: 12. 0 - 16.0 Lymphocytes/100 WBC (Bld) 22.9 % See Below [facility] Work Phone: Comment on above: Reference Range: 13. 0 - 44.0 MCHC (RBC) [Mass/Vol] 34.1 g/dL See Below [facility] Work Phone: Comment on above: Reference Range: 32. 0 - 36.0 MCV (RBC) [Entitic vol] 93 fL 80 - 100 [facility] Work Phone: Monocytes/100 WBC (Bld) 7.7 % 2.0 - 10.0 [facility] Work Phone: Neutrophils/100 WBC (Bld) 67.1 % See Below [facility] Work Phone: Comment on above: Reference Range: 40. 0 - 80.0 Platelets (Bld) [#/Vol] 285 10*3/uL 150 - 450 [facility] Work Phone: RBC (Bld) [#/Vol] 4.58 {x10E12/L} See Below [facility] [employer] [facility] Work Phone: Comment on above: Reference Range: 4.0 0 - 5.20 WBC (Bld) [#/Vol] 10.4 10*3/uL 4.4 - 11.3 [facility] Work Phone: Complete Blood Count + Differential 0.07 {x10E9/L} See Below [facility] Work Phone: Comment on above: Reference Range: 0.0 0 - 0.10 Complete Blood Count + Differential 0.12 {x10E9/L} See Below [facility] Work Phone: Comment on above: Reference Range: 0.0 0 - 0.70 Complete Blood Count + Differential 0.80 {x10E9/L} See Below [facility] Work Phone: Comment on above: Reference Range: 0.1 0 - 1.00 Complete Blood Count + Differential 2.38 {x10E9/L} See Below [facility] Work Phone: Comment on above: Reference Range: 1.2 0 - 4.80 Complete Blood Count + Differential 7.00 {x10E9/L} See Below [facility] Work Phone: Comment on above: Reference Range: 1.2 0 - 7.70 Complete Blood Count + Differential 1.2 % 0.0 - 6.0 [facility] Work Phone: Complete Blood Count + Differential 0.4 % 0.0 - 0.9 [facility] Work Phone: Comment on above: Immature Granulocyte [...] You may also be contacted by the [facility] to see if any of your close [...] or Naproxen (Aleve) can also be used. Cqqn-agh-qwnpexi cough and cold medicines can be used according to the instructions on the package. Some bzgn-nso-apkawzi medicines also contain acetaminophen. Make sure you [...] water are not available, use alcohol-based hand panel coverer. Avoid touching your eyes, nose, and mouth [...] 24 wan (more content not included)... Normal [facility] Electrocardiogram 12 Leadon 08-22-2022 Electrocardiogram 12 Lead Ventricular Rate 80 Atrial Rate 80 QRS Duration 132 Q-T Interval 400 QTC Calculation(Bazett) 461 R [place] 74 T [place] -9 QRS Count 14 Q Onset 207 T Offset 407 QTC Fredericia 440 Diagnosis Class Abnormal Diagnosis sinus rhythm with frequent PAC's in a pattern of atrial bigeminy Nonspecific intraventricular block Cannot rule out Anteroseptal infarct , age undetermined T wave abnormality, consider inferior ischemia Abnormal ECG Confirmed by Federico Wing ([id number]) on 08/22/2022 3:25:30 PM Normal [facility] INFLUENZA A/B, COVID 2019 PC R,SYMPTOMATICon 08-22-2022 INFLUENZA A, PCR Not detected Normal Not Detected [facility] Comment on above: Result Comment: Resp iratory virus testing is performed routinely by PCR for Influenza A/B and RSV. Not Detected results do not preclude Influenza A/B or RSV infections since the adequacy of sample collection or low viral burden may impact the clinical sensitivity of this test method. Performed By: #### [facility] #### [address] [phone] INFLUENZA B, PCR Not detected Normal Not Detected [facility] Comment on above: Result Comment: Resp iratory virus testing is performed routinely by PCR for Influenza A/B and RSV. Not Detected results do not preclude Influenza A/B or RSV infections since the adequacy of sample collection or low viral burden may impact the clinical sensitivity of this test method. Performed By: #### [facility] #### [address] [id number] SARS-CoV-2 (COVID-19) RNA REYNALDO+probe Ql (Unsp spec) Not detected Normal Not Detected [facility] Comment on above: Result Comment: . This test has received FDA Emergency Use Authorization (EUA) and has been verified by [facility]. This test is only authorized for the duration of time that circumstances exist to justify the authorization of the emergency use of in vitro diagnostic tests for the detection of SARS-CoV-2 virus and/or diagnosis of COVID-19 infection under section 564(b)(1) of the Act, 21 U.S.C. 360bbb-3(b)(1), unless the authorization is terminated or revoked sooner. [facility] is certified under CLIA-88 as qualified to perform high complexity testing. Testing is performed in the [facility] laboratory located at [address] [place] [id number]. SARS-CoV-2/Flu/RSV Multiplex Test: Fact sheet for providers: https://www.fda.gov/media/954399/download Fact sheet for patients: https://www.fda.gov/media/564240/download Performed By: #### [facility] #### [address] [phone] Lab Specimen Source Nasal, Nasopharyngeal Normal [facility] Comment on above: Performed By: #### [facility] #### [address] [phone] INFLUENZA A/B, COVID 2019 PCR,SYMPTOMATIC Not detected See Below -[facility] Work Phone: Comment on above: Reference Range: Not Detected.This test has received FDA Emergency Use Authorization (EUA) and has been verified by [facility]. This test is only authorized for the duration of time that circumstances exist to justify the authorization of the emergency use of in vitro diagnostic tests for the detection of SARS-CoV-2 virus and/or diagnosis of COVID-19 infection under section 564(b)(1) of the Act, 21 U.S.C. 360bbb-3(b)(1), unless the authorization is terminated or revoked sooner. [facility] is certified under CLIA-88 as qualified to perform high complexity testing. Testing is performed in the [facility] laboratory located at [address] [place] [address].SARS-CoV-2/Flu/RSV Multiplex Test: Fact sheet for providers: https://www.fda.gov/media/206228/downloadFact sheet for patients: https://www.fda.gov/media/798294/download Reference Range: Not Detected Respiratory virus testing [...] dye [Mass/Vol] 4.3 g/dL 3.4 - 5.0 [facility] Work Phone: ALP [Catalytic activity/Vol] 80 U/L 33 - 110 [facility] Work Phone: ALT With P-5'-P [Catalytic activity/Vol] 29 U/L 7 - 45 [facility] Work Phone: Comment on above: Patients treated wit h Sulfasalazine may generate falsely decreased results for ALT. Anion gap [Moles/Vol] 13 mmol/L 10 - 20 [facility] Work Phone: AST With P-5'-P [Catalytic activity/Vol] 22 U/L 9 - 39 [facility] Work Phone: Bilirubin [Mass/Vol] 0.4 mg/dL 0.0 - 1.2 -[facility] Work Phone: Calcium [Mass/Vol] 9.4 mg/dL 8.6 - 10.3 [facility] Work Phone: Chloride [Moles/Vol] 102 mmol/L 98 - 107 [facility] [place] Work Phone: CO2 [Moles/Vol] 28 mmol/L 21 - 32 [facility] [place] Work Phone: Creatinine [Mass/Vol] 0.93 mg/dL See Below [facility] [place] Work Phone: Comment on above: Reference Range: 0.5 0 - 1.05 Glucose [Mass/Vol] 92 mg/dL 74 - 99 [facility] [place] Work Phone: Potassium [Moles/Vol] 3.8 mmol/L 3.5 - 5.3 [facility] Work Phone: Protein [Mass/Vol] 7.8 g/dL 6.4 - 8.2 [facility] Work Phone: Sodium [Moles/Vol] 139 mmol/L 136 - 145 [facility] Work Phone: Urea nitrogen [Mass/Vol] 16 mg/dL 6 - 23 [facility] Work Phone: Laboratory - Coagulationon 0 08-22-2022 INR Coag (PPP) [Relative time] 1.1 {INR} 0.9 - 1.1 [facility] Work Phone: PT Coag (PPP) [Time] 12.6 s 9.8 - 13.4 [facility] Work Phone: MAGNESIUMon 08-22-2022 Magnesium [Mass/Vol] 2.05 mg/dL Normal 1.60 - 2.40 [facility] Comment on above: Performed By: #### M G #### [address] [phone] Magnesium, Serumon Magnesium [Mass/Vol] 2.05 mg/dL See Below [facility] Work Phone: [phone] Comment on above: Reference Range: 1.6 0 - 2.40 No Panel Informationon 08-22 73 {mL/min/1.73m2} >90 [facility] [place] Work Phone: Comment on above: CALCULATIONS OF LINDSEY MATED GFR ARE PERFORMED USING THE 2020 CKD-EPI STUDY REFIT EQUATION WITHOUT THE RACE VARIABLE FOR THE IDMS-TRACEABLE CREATININE METHODS.https://jasn.asnjournals.org/content/early//ASN .6217704540 https://[facility] MUS[facility]EEEXPRDWE B01:808 0/musescripts/museweb.dll?R etrieveTestByDateTime?Patie vqNF=[id number]&Date= 023&Time=14%3a40%3a33%3a00& TestType=ECG&Site=11&Output Type=PDF&Ext=PDF [facility] [place] Work Phone: sinus rhythm with fr equent PAC's in a pattern of atrial bigeminy [facility] [place] Work Phone: Abnormal [facility] [place] Work Phone: [phone] [facility] [place] Work Phone: [phone] [facility] [place] Work Phone: [phone] [facility] [place] Work Phone: [phone] [facility] [place] Work Phone: [phone] [facility] [place] Work Phone: [phone] [facility] [place] Work Phone: [phone] [facility] [place] Work Phone: [phone] [facility] [place] Work Phone: [phone] [facility] [place] Work Phone: [phone] [facility] [place] Work Phone: Order Reconciliationon [...] Aspirin Low Dose 81 orally once a [id number] Aspirin Chewable Tablet, ChewableDOSE = 81 mg [...] milliliter(s) injectable once a day, As Needed [id number] Reviewed and Held ferrous sulfate 200 mg (65 mg elemental iron) oral tablet 2 tab(s) orally once a [id number] Reviewed and Held metoprolol succinate 25 mg oral tablet, extended release 1 tab(s) orally once a [id number] Reviewed and Held Multiple Vitamins oral tablet 1 tab(s) orally once a [id number] Reviewed and Held omeprazole 40 mg oral delayed release capsule 1 cap(s) orally once a day 22-Aug-2022 Pantoprazole Enteric Coated Tablet (PROTONIX)DOSE = 40 mg Oral Dailyomeprazole 40 mg oral delayed release capsule continued as the inpatient order Pantoprazole sertraline 50 mg oral tablet 1 tab(s) orally once a [id number] Sertraline Tablet (ZOLOFT)DOSE = 50 mg Oral Dailysertraline 50 mg oral tablet continued as the inpatient order Sertraline solifenacin 5 mg oral tablet 1 tab(s) orally once a [id number] Reviewed and Held Vitamin D3 1000 intl [...] Every 8 Hours and as Needed Normal [facility] PT/INRon 08-22-2022 PT Coag (PPP) [Time] 12.6 s Normal 9.8 - 13.4 [facility] Comment on above: Performed By: #### [facility] #### [address] [phone] PT, INR 1.1 Normal 0.9 - 1.1 [facility] Comment on above: Performed By: #### [facility] #### [address] [id number] Provider Note - ED v3on Provider Note [...] results: Troponin I, High Sensitivity Trending View [id number] 16:27:00 22-Aug-2022 15:09:00 Troponin I, High Sensitivity3 [...] Authorization (EUA) and has been verified by [facility]. This test is only authorized for the duration of time that circumsta Complete Blood Count + Differential 22-Aug-2022 15:09:00 ResultValue White Blood Cell Count 10.4 Red Blood Cell Count 4.58 HGB 14.6 HCT 42.8 MCV 93 MCHC 34.1 PLT 285 RDW-CV 12.4 Neutrophil % 67.1 Immature Granulocytes % 0.4 Lymphocyt (more content not included)... Normal [facility] Radiologyon 08-22-2022 XR Chest Single view Normal [facility] Work Phone: TROPONIN I, HIGH SENSITIVITY on 08-22-2022 TROPONIN I, HIGH SENSITIVITY 3 ng/L Normal 0 - 13 [facility] Comment on above: Result Comment: . Less [...] performed using a different testing methodology at [facility] than at other [facility]. Direct result comparisons should only be made within the same method. Performed By: #### [facility] #### [address] [phone] Tropinin I.cardiac panel High sensitivity method 3 ng/L 0 - 13 [facility] Work Phone: Comment on above: [...] performed using a different testing methodology at [facility] than at other [facility]. Direct result comparisons should only be made within the same method. TROPONIN I, HIGH SENSITIVITY 3 ng/L Normal 0 - 13 [facility] Comment on above: Result Comment: . Less [...] performed using a different testing methodology at [facility] than at other [facility]. Direct result comparisons should only be made within the same method. Performed By: #### M G #### [address] [id number] TROPONIN I, HIGH SENSITIVITY 3 ng/L Normal 0 - 13 [facility] Comment on above: Result Comment: . Less [...] performed using a different testing methodology at [facility] than at other [facility]. Direct result comparisons should only be made within the same method. Performed By: #### [facility] #### [address] [id number] Tropinin I.cardiac panel High sensitivity method 3 ng/L 0 - 13 [facility] Work Phone: Comment on above: [...] performed using a different testing methodology at [facility] than at other [facility]. Direct result comparisons should only be made within the same method. Tropinin I.cardiac panel High sensitivity method 3 ng/L 0 - 13 [facility] Work Phone: Comment on above: [...] performed using a different testing methodology at [facility] than at other [facility]. Direct result comparisons should only be made within the same method. Triage - EDon 08-22-2022 Triage - ED Quick Triage: Are You no Have You Given In The Last 6 Weeksno Are You Currently Breastfeedingno Chart Review: PRIMARY ASSESSMENT RASHEEDA HANNA'shila primary assessment is Within Defined Limits. The [...] BMI (kg/m2): 35.736 Calculated BSA (m2) 1.87 [place] Coma Scale: Best Eye Response: (E4) spontaneous Best Motor Response: (M6) obeys commands Best Verbal Response: (V5) oriented [place] Score: 15 Allergies: yes Patient has homicidal [...] 22-Aug-2022 14:49 by Michelle Herrera (RN) Normal [facility] Office Visit (Cardiology)on 08-18-2022 Follow-up visit Diagnoses/Problems [...] for the new patient portal platform through [facility]. If you have not received an invite [...] the decision made by me. 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 (more content not included)... Normal [employer] Tobacco Screening.on 023 Adult depression screening assessment No [facility] [address] DO Work Phone: Fall risk assessment a) [facility] the [facility] Work Phone: Tobacco use status [facility] b) No [facility] [address] DO Work Phone: CARDIAC ELIA 3-6on 3 CK [Catalytic activity/Vol] 110 U/L Normal 26-[address] [facility] Comment on above: Performed By: #### B MG JASBIR #### [facility] [address] [place] [address] Dr. Betsy Velazquez CK.MB [Mass/Vol] 1.74 ng/mL Normal <=3.[address] [facility] Comment on above: Performed By: #### B MP, MG #### [facility] [address] [place] [address] Dr. Betsy Velazquez HSTROP 6.3 pg/mL Normal 4.0-51.[address] [facility] Comment on above: Result Comment: CUT- OFF POINTS HAVE BEEN ESTABLISHED BASED ON THE FOURTH UNIVERSAL DEFINITIONS OF MYOCARDIAL INFARCTION. THE UPPER REFERENCE LIMIT (URL) OF TROPONIN, DEFINED THE 99TH PERCENTILE OF cTnI DISTRIBUTION IN A REFERENCE POPULATION, HAS BEEN CONFIRMED THE DECISION THRESHOLD FOR MS DIAGNOSIS. Performed By: #### B MP, MG #### [facility] [address] [place] [address] Dr. Betsy Velazquez CK [Catalytic activity/Vol] 123 U/L Normal 26-192 [facility] Comment on above: Performed By: #### C MREP #### [facility] [address] [place] [address] Dr. Betsy Velazquez CK.MB [Mass/Vol] 1.90 ng/mL Normal <=3.[address] [facility] Comment on above: Performed By: #### C MREP #### [facility] [address] [place] [address] Dr. Betsy Velazquez HSTROP 5.9 pg/mL Normal 4.0-51.[address] [facility] Comment on above: Result Comment: CUT- OFF POINTS HAVE BEEN ESTABLISHED BASED ON THE FOURTH UNIVERSAL DEFINITIONS OF MYOCARDIAL INFARCTION. THE UPPER REFERENCE LIMIT (URL) OF TROPONIN, DEFINED THE 99TH PERCENTILE OF cTnI DISTRIBUTION IN A REFERENCE POPULATION, HAS BEEN CONFIRMED THE DECISION THRESHOLD FOR MS DIAGNOSIS. Performed By: #### C MREP #### [facility] [address] [place] [address] Dr. Betsy Velazquez CBC AUTO DIFFon 06-29-2022 BASO # 0.1 103/ul Normal 0.0-0.1 [facility] Comment on above: Performed By: #### C BC #### [facility] [address] [place] [address] Dr. Betsy Velazquez Basophils/100 WBC (Bld) 0.7 % Normal 0.2-2.0 [facility] Comment on above: Performed By: #### C BC #### [facility] [address] [place] [address] Dr. Betsy Velazquez EO # 0.1 103/ul Normal 0.0-0.7 [facility] Comment on above: Performed By: #### C BC #### [facility] [address] [place] [address] Dr. Betsy Velazquez Eosinophils/100 WBC (Bld) 1.4 % Normal 0.9-7.0 [facility] Comment on above: Performed By: #### C BC #### [facility] [address] [place] [address] Dr. Betsy Velazquez Erythrocyte distribution width (RBC) [Ratio] 12.8 % Normal 11.0-15.0 [facility] Comment on above: Performed By: #### C BC #### [facility] [address] [place] [address] Dr. Betsy Velazquez Hematocrit (Bld) [Volume fraction] 41.4 % Normal 36.0-48.0 [facility] Comment on above: Performed By: #### C BC #### [facility] [address] [place] [address] Dr. Betsy Velazquez Hemoglobin (Bld) [Mass/Vol] 13.4 g/dL Normal 12.0-16.0 [facility] Comment on above: Performed By: #### C BC #### [facility] [address] [place] [address] Dr. Betsy Velazquez IG # 0.04 10e3/ul Critically high 0.00-0.03 [facility] Comment on above: Performed By: #### C BC #### [facility] [address] [place] [address] Dr. Betsy Velazquez IG % 0.4 % Normal 0.0-0.5 [facility] Comment on above: Performed By: #### C BC #### [facility] [address] [place] [address] Dr. Betsy Velazquez LYMPH # 2.6 103/ul Normal 1.2-3.8 [facility] Comment on above: Performed By: #### C BC #### [facility] [address] [place] [address] Dr. Betsy Velazquez Lymphocytes/100 WBC (Bld) 26.5 % Normal 20.5-60.0 [facility] Comment on above: Performed By: #### C BC #### [facility] [address] [place] [address] Dr. Betsy Velazquez MANUAL DIFF REQ NO Normal [facility] Comment on above: Performed By: #### C BC #### [facility] [address] [place] [address] Dr. Betsy Velazquez MCH (RBC) [Entitic mass] 31.5 pg Normal 26.7-34.0 [facility] Comment on above: Performed By: #### C BC #### [facility] [address] [place] [address] Dr. Betsy Velazquez MCHC (RBC) [Mass/Vol] 32.4 g/dL Normal 29.9-35.2 [facility] Comment on above: Performed By: #### C BC #### [facility] [address] [place] [address] Dr. Betsy Velazquez MCV (RBC) [Entitic vol] 97.2 fL Normal 81.0-99.0 [facility] Comment on above: Performed By: #### C BC #### [facility] [address] [place] [address] Dr. Betsy Velazquez MONO # 0.8 103/ul Normal 0.3-0.8 [facility] Comment on above: Performed By: #### C BC #### [facility] [address] [place] [address] Dr. Betsy Velazquez Monocytes/100 WBC (Bld) 7.6 % Normal 1.7-12.[address] [facility] Comment on above: Performed By: #### C BC #### [facility] [address] [place] [address] Dr. Betsy Velazquez NEUT # 6.3 103/ul Normal 1.4-6.[address] [facility] Comment on above: Performed By: #### C BC #### [facility] [address] [place] [address] Dr. Betys Velazquez Neutrophils/100 WBC (Bld) 63.4 % Normal 43.0-75.0 [facility] Comment on above: Performed By: #### C BC #### [facility] [address] [place] [address] Dr. Betsy Velazquez Platelet mean volume (Bld) [Entitic vol] 11.3 fL Normal 9.5-13.5 [facility] Comment on above: Performed By: #### C BC #### [facility] [address] [place] [address] Dr. Betsy Velazquez PLT 258 103/ul Normal 150-450 [facility] Comment on above: Performed By: #### C BC #### [facility] [address] [place] [address] Dr. Betsy Velazquez RBC 4.26 106/ul Normal 4.20-5.40 [facility] Comment on above: Performed By: #### C BC #### [facility] [address] [place] [address] Dr. Betsy Velazquez WBC 10.0 103/ul Normal 4.0-11.0 [facility] Comment on above: Performed By: #### C BC #### [facility] [address] [place] [address] Dr. Betsy Velazquez [facility]18 SARS-CoV-2 (COVID-19) RNA REYNALDO+probe Ql (Unsp spec) Not detected Normal NOT DETECTED [facility] Comment on above: Result Comment: When [...] for this test is supported by the [place] of Health and Human Service's declaration that [...] used). Performed By: #### C [facility] #### [facility] [address] [place] [address] Dr. Betsy Velazquez ECHO LIMITED STUDYon 023 ECHO LIMITED STUDY Patient: SARAH HANNA Exam Date: 06/29/2022 : 1970 Gender:F Ordering : BONY SOLARES Admission #: [id number] Family : KAYLA DENT Order #: [id number] CLICK HERE TO VIEW EXAM ECHOCARDIOGRAM REPORT [...] Martinez M.D. on 06/30/2022 at 13:52 Normal [facility] GLYCOHEMOGLOBIN A1Con 2022 ADA RECOMMENDATION SEE BELOW Normal [facility] Comment on above: Result Comment: ADA RECOMMENDED LIMIT 4.0 - 6.0 ADA THERAPEUTIC TARGET < 7.0 ACTION SUGGESTED > 7.0 Performed By: #### B MP, MG #### [facility] [address] [place] [address] Dr. Betsy Velazquez Glucose [Mass/Vol] 120 mg/dL Normal [facility] Comment on above: Performed By: #### B MP, MG #### [facility] [address] [place] [place] [address] Dr. Betsy Velazquez HbA1c (Bld) [Mass fraction] 5.8 % Normal 4.5-6.2 [facility] Comment on above: Performed By: #### B MP, MG #### [facility] [address] [place] [address] Dr. Betsy Velazquez LIPID PROFILEon 06-29-2022 CHOL-HDL RATIO NORM SEE BELOW Normal [facility] Comment on above: Result Comment: 3.3 - 4.4 LOW RISK 4.4 - 7.1 AVERAGE RISK 7.1 - 11.0 MODERATE RISK >11.0 HIGH RISK Performed By: #### L IPID, TSH #### [facility] [address] [place] [address] Dr. Betsy Velazquez Cholesterol [Mass/Vol] 168 mg/dL Normal <=200 [facility] Comment on above: Performed By: #### L IPID, TSH #### [facility] [address] [address] [address] Betsy Velazquez Cholesterol in HDL [Mass/Vol] 55 mg/dL Normal 40-60 [facility] Comment on above: Performed By: #### L IPID, TSH #### [facility] [address] [address] [address] Betsy Velazquez Cholesterol in LDL [Mass/Vol] 97.0 mg/dL Normal [facility] Comment on above: Performed By: #### L IPID, TSH #### [facility] [address] [address] [address] Betsy Velazquez Cholesterol.total/Ch olesterol in HDL [Mass ratio] 3.1 {ratio} Normal [facility] Comment on above: Performed By: #### L IPID, TSH #### [facility] [address] [place] [address] Dr. Betsy Velazquez HDL NORMAL > or = 60 mg/dl - LO W CARDIOVASCULAR RISK <40 mg/dl - HIGH CARDIOVASCULAR RISK Normal [facility] Comment on above: Performed By: #### L IPID, TSH #### [facility] [address] [address] [address] Betsy Velazquez LDL CALC NORMAL SEE BELOW Normal [facility] Comment on above: Result Comment: <100 mg/dl OPTIMAL 100 - 129 mg/dl NEAR OR ABOVE OPTIMAL 130 - 159 mg/dl BORDERLINE HIGH 160 - 189 mg/dl HIGH >190 mg/dl VERY HIGH Performed By: #### L IPID, TSH #### [facility] [address] [address] [address] Betsy Velazquez Triglyceride [Mass/Vol] 80 mg/dL Normal <=[address] [facility] Comment on above: Performed By: #### L IPID, TSH #### [facility] [address] [place] [address] Dr. Betsy Velazquez VLDL CALC 16.0 mg/dL Normal [facility] Comment on above: Performed By: #### L IPID, TSH #### [facility] [address] [address] [address] Betsy Velazquez MAGNESIUMon 06-29-2022 Magnesium [Mass/Vol] 2.1 mg/dL Normal 1.8-2.4 [facility] Comment on above: Performed By: #### B MP, MG #### [facility] [address] [place] [address] Dr. Betsy Velazquez PROF CHEM 8 (BAS METB)on Anion gap [Moles/Vol] 10.8 mmol/L Normal [facility] Comment on above: Performed By: #### B MP, MG #### [facility] [address] [place] [address] Dr. Betsy Velazquez Calcium [Mass/Vol] 9.0 mg/dL Normal 8.5-10.[address] [facility] Comment on above: Performed By: #### B MP, MG #### [facility] [address] [place] [address] Dr. Betsy Velazquez Chloride [Moles/Vol] 104 mmol/L Normal 98-107 [facility] Comment on above: Performed By: #### B MP, MG #### [facility] [address] [place] [address] Dr. Betsy Velazquez CO2 [Moles/Vol] 28.1 mmol/L Normal 21.0-32.0 [facility] Comment on above: Performed By: #### B MP, MG #### [facility] [address] [place] [address] Dr. Betsy Velazquez Creatinine [Mass/Vol] 0.86 mg/dL Normal 0.55-1.[address] [facility] Comment on above: Performed By: #### B MP, MG #### [facility] [address] [place] [address] Dr. Betsy Velazquez EGFR-AF DOMINICAN >60 Normal >=[address] [facility] Comment on above: Performed By: #### B MP, MG #### [facility] [address] [place] [address] Dr. Betsy Velazquez EGFR-NON AF DOMINICAN >60 Normal >=60 [facility] Comment on above: Performed By: #### B MP, MG #### [facility] [address] [address] [address] Betsy Velazquez Glucose [Mass/Vol] 111 mg/dL Critically high 74-[address] [facility] Comment on above: Performed By: #### B MP, MG #### [facility] [address] [place] [address] Dr. Betsy Velazquez Potassium [Moles/Vol] 3.9 mmol/L Normal 3.5-5.1 [facility] Comment on above: Performed By: #### B MP, MG #### [facility] [address] [place] [address] Dr. Betsy Velazquez Sodium [Moles/Vol] 139 mmol/L Normal 136-145 [facility] Comment on above: Performed By: #### B MP, MG #### [facility] [address] [place] [address] Dr. Betsy Velazquez Urea nitrogen [Mass/Vol] 18.0 mg/dL Normal 7.0-18.0 [facility] Comment on above: Performed By: #### B MP, MG #### [facility] [address] [place] [address] Dr. Betsy Velazquez Urea nitrogen/Creatinine [Mass ratio] 20.9 mg/mg Normal [facility] Comment on above: Performed By: #### B MP, MG #### [facility] [address] [place] [address] Dr. Betsy Velazquez TSHon 06-29-2022 TSH 1.981 uIU/mL Normal 0.358-3.740 [facility] Comment on above: Performed By: #### L IPID, TSH #### [facility] [address] [place] [address] Dr. Betsy Velazquez XR CHEST 1 Von [...] GARY Date: 2022-06-28 22:[address] [facility] CARDIAC ELIA ADMITon 023 CK [Catalytic activity/Vol] 149 U/L Normal 26-[address] [facility] Comment on above: Performed By: #### B MP, MG #### [facility] [address] [place] [address] Dr. Betsy Velazquez CK.MB [Mass/Vol] 2.34 ng/mL Normal <=3.[address] [facility] Comment on above: Performed By: #### B MP, MG #### [facility] [address] [place] [address] Dr. Betsy Velazquez HSTROP 5.5 pg/mL Normal 4.0-51.[address] [facility] Comment on above: Result Comment: CUT- OFF POINTS HAVE BEEN ESTABLISHED BASED ON THE FOURTH UNIVERSAL DEFINITIONS OF MYOCARDIAL INFARCTION. THE UPPER REFERENCE LIMIT (URL) OF TROPONIN, DEFINED THE 99TH PERCENTILE OF cTnI DISTRIBUTION IN A REFERENCE POPULATION, HAS BEEN CONFIRMED THE DECISION THRESHOLD FOR MS DIAGNOSIS. Performed By: #### B MP, MG #### [facility] [address] [place] [address] Dr. Betsy Velazquez CHRISTOPHER 50 ng/mL Normal 9-[address] [facility] Comment on above: Performed By: #### B JASBIR, MG #### [facility] [address] [place] [address] Dr. Betsy Velazquez CBC AUTO DIFFon 06-28-2022 BASO # 0.1 103/ul Normal 0.0-0.1 [facility] Comment on above: Performed By: #### C BC #### [facility] [address] [place] [address] Dr. Betsy Velazquez Basophils/100 WBC (Bld) 0.6 % Normal 0.2-2.[address] [facility] Comment on above: Performed By: #### C BC #### [facility] [address] [place] [address] Dr. Betsy Velazquez EO # 0.2 103/ul Normal 0.0-0.[address] [facility] Comment on above: Performed By: #### C BC #### [facility] [address] [place] [address] Dr. Betsy Velazquez Eosinophils/100 WBC (Bld) 2.0 % Normal 0.9-7.0 [facility] Comment on above: Performed By: #### C BC #### [facility] [address] [place] [address] Dr. Betsy Velazquez Erythrocyte distribution width (RBC) [Ratio] 12.8 % Normal 11.0-15.0 [facility] Comment on above: Performed By: #### C BC #### [facility] [address] [place] [address] Dr. Betsy Velazquez Hematocrit (Bld) [Volume fraction] 41.8 % Normal 36.0-48.0 [facility] Comment on above: Performed By: #### C BC #### [facility] [address] [place] [address] Dr. Betsy Velazquez Hemoglobin (Bld) [Mass/Vol] 13.8 g/dL Normal 12.0-16.0 [facility] Comment on above: Performed By: #### C BC #### [facility] [address] [place] [address] Dr. Betsy Velazquez IG # 0.04 10e3/ul Critically high 0.00-0.03 [facility] Comment on above: Performed By: #### C BC #### [facility] [address] [place] [address] Dr. Betsy Velazquez IG % 0.3 % Normal 0.0-0.5 [facility] Comment on above: Performed By: #### C BC #### [facility] [address] [place] [address] Dr. Betsy Velazquez LYMPH # 3.1 103/ul Normal 1.2-3.[address] [facility] Comment on above: Performed By: #### C BC #### [facility] [address] [place] [address] Dr. Betsy Velazquez Lymphocytes/100 WBC (Bld) 26.9 % Normal 20.5-60.0 [facility] Comment on above: Performed By: #### C BC #### [facility] [address] [place] [address] Dr. Betsy Velazquez MANUAL DIFF REQ NO Normal [facility] Comment on above: Performed By: #### C BC #### [facility] [address] [place] [address] Dr. Betsy Velazquez MCH (RBC) [Entitic mass] 31.4 pg Normal 26.7-34.0 [facility] Comment on above: Performed By: #### C BC #### [facility] [address] [place] [address] Dr. Betsy Velazquez MCHC (RBC) [Mass/Vol] 33.0 g/dL Normal 29.9-35.2 [facility] Comment on above: Performed By: #### C BC #### [facility] [address] [place] [address] Dr. Betsy Velazquez MCV (RBC) [Entitic vol] 95.2 fL Normal 81.0-99.0 [facility] Comment on above: Performed By: #### C BC #### [facility] [address] [place] [address] Dr. Betsy Velazquez MONO # 0.9 103/ul Critically high 0.3-0.8 [facility] Comment on above: Performed By: #### C BC #### [facility] [address] [place] [address] Dr. Betsy Velazquez Monocytes/100 WBC (Bld) 7.8 % Normal 1.7-12.0 [facility] Comment on above: Performed By: #### C BC #### [facility] [address] [place] [address] Dr. Betsy Velazquez NEUT # 7.2 103/ul Critically high 1.4-6.5 [facility] Comment on above: Performed By: #### C BC #### [facility] [address] [place] [address] Dr. Betsy Velazquez Neutrophils/100 WBC (Bld) 62.4 % Normal 43.0-75.0 [facility] Comment on above: Performed By: #### C BC #### [facility] [address] [place] [address] Dr. Betsy Velazquez Platelet mean volume (Bld) [Entitic vol] 11.1 fL Normal 9.5-13.5 [facility] Comment on above: Performed By: #### C BC #### [facility] [address] [place] [address] Dr. Betsy Velazquez PLT 272 103/ul Normal 150-[address] [facility] Comment on above: Performed By: #### C BC #### [facility] [address] [place] [address] Dr. Betsy Velazquez RBC 4.39 106/ul Normal 4.20-5.40 [facility] Comment on above: Performed By: #### C BC #### [facility] [address] [place] [address] Dr. Betsy Velazquez WBC 11.6 103/ul Critically high 4.0-11.0 [facility] Comment on above: Performed By: #### C BC #### [facility] [address] [place] [address] Dr. Betsy Velazquez PROF CHEM 8 (BAS METB)on Anion gap [Moles/Vol] 12.8 mmol/L Normal [facility] Comment on above: Performed By: #### B MP, MG #### [facility] [address] [place] [address] Dr. Betsy Velazquez Calcium [Mass/Vol] 9.4 mg/dL Normal 8.5-10.1 [facility] Comment on above: Performed By: #### B MP, MG #### [facility] [address] [place] [address] Dr. Betsy Velazquez Chloride [Moles/Vol] 102 mmol/L Normal 98-[address] [facility] Comment on above: Performed By: #### B MP, MG #### [facility] [address] [place] [address] Dr. Betsy Velazquez CO2 [Moles/Vol] 25.7 mmol/L Normal 21.0-32.0 [facility] Comment on above: Performed By: #### B MP, MG #### [facility] [address] [place] [address] Dr. Betsy Velazquez Creatinine [Mass/Vol] 1.03 mg/dL Critically high 0.55-1.02 [facility] Comment on above: Performed By: #### B MP, MG #### [facility] [address] [place] [address] Dr. Betsy Velazquez EGFR-AF DOMINICAN >60 Normal >=60 [facility] Comment on above: Performed By: #### B MP, MG #### [facility] [address] [place] [address] Dr. Betsy Velazquez EGFR-NON AF DOMINICAN 56 mL/min/1.73m2 Critically low >=60 [facility] Comment on above: Performed By: #### B MP, MG #### [facility] [address] [place] [address] Dr. Betsy Velazquez Glucose [Mass/Vol] 93 mg/dL Normal 74-106 [facility] Comment on above: Performed By: #### B MP, MG #### [facility] [address] [place] [address] Dr. Betsy Velazquez Potassium [Moles/Vol] 3.5 mmol/L Normal 3.5-5.1 [facility] Comment on above: Performed By: #### B MP, MG #### [facility] [address] [place] [address] Dr. Betsy Velazquez Sodium [Moles/Vol] 137 mmol/L Normal 136-145 [facility] Comment on above: Performed By: #### B MP, MG #### [facility] [address] [place] [address] Dr. Betsy Velazquez Urea nitrogen [Mass/Vol] 21.0 mg/dL Critically high 7.0-18.0 [facility] Comment on above: Performed By: #### B MP, MG #### [facility] [address] [place] [address] Dr. Betsy Velazquez Urea nitrogen/Creatinine [Mass ratio] 20.4 mg/mg Normal [facility] Comment on above: Performed By: #### B MP, MG #### [facility] [address] [place] [address] Dr. Betsy Velazquez DIGITAL DIAG MAMM BILAT WITH TOMOon 12-28-2021 DIGITAL DIAG MAMM BILAT WITH MASON Patient Name: RASHEEDA NICHOLE STUDY: DIGITAL DIAG MAMM BILAT WITH MASON; BREAST ULTRASOUND; 12/28/2021 9:31 am; 12/28/2021 9:59 am ACCESSION NUMBER(S): [id number]; [id number] ORDERING CLINICIAN: BARBARA HARRY INDICATION: breast lump [...] any future breast imaging appointments, please call [phone] ([phone]). Electronically signed by: ELIA RON MD [facility] MG Breast Diagnostic Normal MP-T [facility] Work Phone: ULTRASOUND LIMITED BREASTon 12-28-2021 ULTRASOUND LIMITED BREAST Patient Name: RASHEEDA NICHOLE STUDY: DIGITAL DIAG MAMM BILAT WITH MASON; BREAST ULTRASOUND; 12/28/2021 9:31 am; 12/28/2021 9:59 am ACCESSION NUMBER(S): [id number]; [id number] ORDERING CLINICIAN: BARBARA HARRY INDICATION: breast lump [...] any future breast imaging appointments, please call [phone]). Electronically signed by: ELIA RON MD Normal [facility] Ultrasound Limited [place] 12-28-2021 MG Breast Screening Normal MP-Tr [facility] Work Phone: Office Visit (Cardiology)on 12-21-2021 Follow-up visit Diagnoses/Problems Assessed Obesity (BMI 35.0-39.9 without comorbidity) (278.00) (E66.9) Orders Obesity (BMI 35.0-39.9 without comorbidity) Healthy Weight Tips; Status:Complete - Retrospective Authorization; Done: [id number] Some eating tips that can help you lose weight.; Status:Complete - Retrospective Authorization; Done: [id number] Patient Instructions FOLLOW UP NEEDED ONLY YOUR [...] further questions arise, Sincerely, Samara Roe MD [facility] Surgical History Problems History of Carpal tunnel surgery History of section 1990, 1992, 1995 History of Cholecystectomy 2017 History of Tubal ligation bilateral 1995 History of [place] tooth extraction Past Medical History Problems Colon [...] UT) O (more content not included)... Normal [employer] Tobacco Screening.on 022 Adult depression screening assessment No [facility] DO Work Phone: Tobacco use status [facility] b) No [facility] DO Work Phone: Office Visiton 11-22-2021 Follow-up visit Diagnoses/Problems Screening breast examination (V76.10) (Z12.39) Breast lump on right side at 12 o'clock position (611.72) (N63.15) Orders Breast lump on right side at 12 o'clock position Mamm Digital Diagnostic Mammography Unilateral Right; Status:Active; Requested for:30Nov2021; Patient is scheduled for 11-30-21 @ 1:30pm at [facility]. Thank you. Laterality : Right Radiologist to Determine Optimal Study : Y What are the patient's signs and symptoms? : breast lump Screening breast examination Mamm - Screening Mammogram; Status:Active; Requested for:22Nov2021; Patient is scheduled at [facility] on 11-30-21. Thank you. Indications for MAMM [...] a) No falls within the last year [facility] Work Phone: Tobacco use status CP b) No [facility] Work Phone: PHQ-2 VITALSon 07-12-2021 Adult depression screening assessment Negative [facility] Work Phone: Fall risk assessment a) No falls within the last year [facility] Work Phone: Tobacco use status [facility] b) No [facility] Work Phone: Tobacco Screening.on 022 Fall risk assessment a) No falls within the last year [facility] DO Work Phone: Tobacco use status [facility] b) No [facility] DO Work Phone: Laboratory - Microbiology an d Antimicrobial susceptibilityon 06-14-2021 SARS-CoV-2 (COVID-19) RNA REYNALDO+probe Ql (Unsp spec) Pass Normal [facility] Work [facility]: No Panel Informationon 06-[address] [facility] Work Phone: YES Normal [facility] Work Phone: Unknown Normal [facility] Work Phone: Not detected Normal Not Detected [facility] Work Phone: Comment on above: This test result jakob uld be correlated with clinical presentations and medical history by a healthcare provider to determine its clinical significance.This assay was performed by a reverse transcriptase real-time polymerase chain reaction (rt PCR) method on the [employer] system. This test has been authorized only [...] is terminated or revoked sooner. Nasal Normal [facility] Work Phone: Cardiac Stress Teston 2020 Cardiac Stress Test Please click on the link to view the study images Normal [facility] DO Work Phone: Cardiac Stress Test MP-No rth [facility] n 127 DO Work Phone: Echocardiogramon 06-07-2021 Echocardiography Please click on the link to view the study images Normal [address] [place] [address] DO Work Phone: Hepatic Function Panelon Albumin BCP dye [Mass/Vol] 3.9 g/dL 3.4 - 5.0 [place] [address] DO Work Phone: ALP [Catalytic activity/Vol] 71 U/L 33 - 110 [place] [address] DO Work Phone: ALT With P-5'-P [Catalytic activity/Vol] 26 U/L 7 - 45 [place] [address] DO Work Phone: Comment on above: Patients treated wit h Sulfasalazine may generate falsely decreased results for ALT. AST With P-5'-P [Catalytic activity/Vol] 20 U/L 9 - 39 [address] [place] [address] DO Work Phone: Bilirubin [Mass/Vol] 0.4 mg/dL 0.0 - 1.2 [place] [address] DO Work Phone: Bilirubin.direct [Mass/Vol] 0.1 mg/dL 0.0 - 0.3 [place] [address] DO Work Phone: Protein [Mass/Vol] 7.2 g/dL 6.4 - 8.2 [place] [address] DO Work Phone: Laboratory - Chemistry and C hemistry - challengeon 05-17-2021 Anion gap [Moles/Vol] 14 mmol/L 10 - 20 [place] [address] DO Work Phone: Calcium [Mass/Vol] 9.1 mg/dL 8.6 - 10.3 [place] [address] DO Work Phone: Chloride [Moles/Vol] 102 mmol/L 98 - 107 [facility] DO Work Phone: CO2 [Moles/Vol] 27 mmol/L 21 - 32 [facility] Work Phone: Creatinine [Mass/Vol] 0.81 mg/dL See Below [facility] DO Work Phone: Comment on above: Reference Range: 0.5 0 - 1.05 Glucose [Mass/Vol] 93 mg/dL 74 - [facility] Work Phone: Potassium [Moles/Vol] 4.2 mmol/L 3.5 - 5.3 [facility] 127 DO Work Phone: Sodium [Moles/Vol] 139 mmol/L 136 - 145 [place] [address] DO Work Phone: Urea nitrogen [Mass/Vol] 13 mg/dL 6 - 23 [place] [address] DO Work Phone: Laboratory - Hematology and Cell countson 05-17-2021 Erythrocyte distribution width (RBC) [Ratio] 13.2 % See Below [facility] [address] [facility] Work Phone: Comment on above: Reference Range: 11. 5 - 14.5 Hematocrit (Bld) [Volume fraction] 39.5 % See Below [facility] DO Work Phone: Comment on above: Reference Range: 36. 0 - 46.0 Hemoglobin (Bld) [Mass/Vol] 13.2 g/dL See Below [place] [address] DO Work Phone: Comment on above: Reference Range: 12. 0 - 16.0 MCHC (RBC) [Mass/Vol] 33.4 g/dL See Below [place] [address] DO Work Phone: Comment on above: Reference Range: 32. 0 - 36.0 MCV (RBC) [Entitic vol] 97 fL 80 - 100 [place] [address] DO Work Phone: Platelets (Bld) [#/Vol] 247 10*3/uL 150 - 450 [facility] DO Work Phone: RBC (Bld) [#/Vol] 4.07 {x10E12/L} See Below [facility] DO Work Phone: Comment on above: Reference Range: 4.0 0 - 5.20 WBC (Bld) [#/Vol] 7.8 10*3/uL 4.4 - 11.3 [facility] DO Work Phone: Lipid Panelon 05-17-2021 Cholesterol [Mass/Vol] 176 mg/dL 0 - 199 [facility] n 127 DO Work Phone: Comment on [...] dosing. Cholesterol in HDL [Mass/Vol] 63.0 mg/dL [facility] n 127 DO Work Phone: Comment on above: . AGE VERY LOW LOW N ORMAL HIGH 0-19 Y < 35 < 40 40-45 ---- 20- 24 Y ---- < 40 >45 ---- >24 Y ---- < 40 40-60 >60. Cholesterol in LDL [Mass/Vol] 96 mg/dL 0 - 99 [facility] n 127 DO Work Phone: Comment on above: . NEAR BORD AGE LUIS RABLE OPTIMAL HIGH HIGH VERY HIGH 0-19 Y 0 - 109 --- 110-129 >/= 130 ---- 20-24 Y 0 - 119 --- 120-159 >/= 160 ---- >24 Y 0 - 99 100-129 130-159 160-189 >/=190. Cholesterol.total/Ch olesterol in HDL [Mass ratio] 2.8 {ratio} [place] [address] DO Work Phone: Comment on above: REF VALUESDESIRABLE < 3.4HIGH RISK > 5.0 Triglyceride [Mass/Vol] 87 mg/dL 0 - 149 [place] [address] DO Work Phone: Comment on above: . [...] Lipid Panel 17 mg/dL 0 - 40 [place] [address] DO Work Phone: Magnesium, Serumon Magnesium [Mass/Vol] 1.90 mg/dL See Below [place] [address] DO Work Phone: Comment on above: Reference Range: 1.6 0 - 2.40 No Panel Informationon 05-17 >60 >60 [place] [address] DO Work Phone: Comment on above: CALCULATIONS OF LINDSEY MATED GFR ARE PERFORMED USING THE MDRD STUDY EQUATION FOR THE IDMS-TRACEABLE CREATININE METHODS. CLIN CHEM 2007;[id number] T4 - Free Thyroxine, Serumon 05-17-2021 Free T4 [Mass/Vol] 0.90 ng/dL See Below [place] [address] DO Work Phone: Comment on above: Reference Range: 0.6 1 - 1.12 Thyroxine Free testing is performed using different testing methodology at [facility] than at other [facility] [...] 05-17-2021 TSH Qn 1.76 m[IU]/L See Below [facility] n 127 DO Work Phone: Comment on above: Reference Range: 0.4 4 - 3.98 TSH testing is performed using different testing methodology at [facility] than at other [facility]. Direct result comparisons should only be made within the same method. Tobacco Screening.on 021 Fall risk assessment a) No falls within the last year [facility] n 127 DO Work Phone: Tobacco use status CPHS b) No [facility] n 127 DO Work Phone: HCG, Serum - Qualitativeon 1 06-22-2020 HCG ( test) Ql Negative Negative [facility] Work Phone: No Panel Informationon 04-22 [email or web address]?Ret rieveTestByDateTime?Patient RZ=[id number]&Date= 1&Time=06%3a23%3a29%3a00&Te stType=ECG&Site=11&OutputTy pe=PDF&Ext=PDF [facility] Work Phone: Sinus rhythm with pr emature supraventricular complexes [facility] Work Phone: Borderline Abnormal [facility] Work Phone: [phone] [facility] Work Phone: [phone] -[facility] Work Phone: [phone] -[facility] Work Phone: [phone] 1 -[facility] Work Phone: [phone] -[facility] Work Phone: [phone] 1 -[facility] Work Phone: [phone] 1 -[facility] Work Phone: [phone] 68 1 -[facility] Work Phone: 51 1 -[facility] Work Phone: [phone] -[facility] Work Phone: [phone] -[facility] Work Phone: 86 1 -[facility] Work Phone: [phone] 1 -[facility] Work Phone: 80 1 -[facility] Work Phone: Coronavirus 2019 RNA by PCR, Screening Asymptomticon 04-20-2021 Coronavirus 2019 RNA by PCR, Screening Asymptomtic Not detected Normal See Below -[facility] Work Phone: Comment on above: SOURCE: [...] make patient management decisions.Fact sheet for providers: https://www.fda.gov/media/315775/downloadFact sheet for patients: https://www.fda.gov/media/952518/downloadThis test has received FDA Emergency Use Authorization (EUA) and has been verified by [facility] ([facility]). This test is only authorized for the duration of time that circumstances exist to justify the authorization of the emergency use of in vitro diagnostic tests for the detection of SARS-CoV-2 virus and/or diagnosis of COVID-19 infection under section 564(b)(1) of the Act, 21 U.S.C. 360bbb-3(b)(1), unless the authorization is terminated or revoked sooner. [facility] is certified under CLIA-88 as qualified to perform high complexity testing. Testing is performed in the [facility] laboratories located at [address] [place] [address]. LMPon 10-29-2020 Last menstrual period start date 31Aug2020 [facility] Work Phone: No Panel Informationon 10-29 Name RASHEEDA NICHOLE Pathologist: MAGDA LIMON MD Date of Procedure: 10/29/2020 Date Received: 10/29/2020 Date Reported 11/03/2020 Submitting Physician: SALIMA GILMAN M.D. Location: [facility] External # FINAL DIAGNOSIS A. SKIN, RIGHT [...] bisected and entirely submitted in one cassette. [facility]/11/02/2020 [facility] Department of Pathology [address] [place] [address] Work Phone: [facility] Work Phone: Mamm - Screening Mammogram w / Tomosynthesison 06-09-2020 MG Breast screening Interpreted by: THERON KNOTTD108/10/19 09:10MRN: [id number] Name: RASHEEDA NICHOLE STUDY:DIGITAL SCREENING BILATERAL MAMMOGRAM [...] signed by: THERON VEE 06/09/20 09:10 Normal [facility] Work Phone: Comment on above: ORDER REVISED TO A D IGITAL MAMM SCREENING W/ MASON BY RADIOLOGIST; Original Order Number: [id number] GC + Chlamydia By Amplified Detectionon 01-05-2020 C. trachomatis rRNA REYNALDO+probe Ql (Unsp spec) Negative Negative [facility] A2100 DO Work Phone: N. gonorrhoeae rRNA REYNALDO+probe Ql (Unsp spec) Negative Negative [facility] A2100 DO Work Phone: Comment on above: SOURCE: Genital Otheron 01-05-2020 0 [facility] A2100 DO Work Phone: Comment on above: Interpretation of th e Bronwyn Score0-3.....Normal vaginal microbiota4-6.....Intermediate results7-10....Bacterial vaginosis ABSENT [facility] A2100 DO Work Phone: Negative Negative [facility] A2100 DO Work Phone: Comment on above: SOURCE: Genital Urinalysison 01-05-2020 Yeast LM Ql (Urine sed) ABSENT [facility] A2100 DO Work Phone: Otheron 07-25-2019 Clam IgE Qn (S) <0.35 <0.35 [facility] Work Phone: Comment on above: SEE IMMUNOCAP INTERP .IGE Codfish IgE Qn (S) <0.35 <0.35 [facility] Work Phone: Comment on above: SEE IMMUNOCAP INTERP .IGE Taft IgE Qn (S) <0.35 <0.35 [facility] Work Phone: Comment on above: SEE IMMUNOCAP INTERP .IGE Egg white IgE Qn (S) <0.35 <0.35 [facility] Work Phone: Comment on above: SEE IMMUNOCAP INTERP .IGE Lobster IgE Qn (S) 0.56 {KU/L} Abnormal <0.35 [facility] Work Phone: Comment on above: SEE IMMUNOCAP INTERP .IGE Milk IgE Qn (S) <0.35 <0.35 [facility] Work Phone: Comment on above: SEE IMMUNOCAP INTERP .IGE Peanut IgE Qn (S) <0.35 <0.35 [facility] Work Phone: Comment on above: SEE IMMUNOCAP INTERP .IGE Sylvania IgE Qn (S) <0.35 <0.35 [facility] Work Phone: Comment on above: SEE IMMUNOCAP INTERP .IGE Scallop IgE Qn (S) <0.35 <0.35 [facility] Work Phone: Comment on above: SEE IMMUNOCAP INTERP .IGE Sesame Seed IgE Qn (S) <0.35 <0.35 [facility] Work Phone: Comment on above: SEE IMMUNOCAP INTERP .IGE Shrimp IgE Qn (S) 0.40 {KU/L} Abnormal <0.35 [facility] Work Phone: Comment on above: SEE IMMUNOCAP INTERP .IGE Soybean IgE Qn (S) <0.35 <0.35 [facility] Work Phone: Comment on above: SEE IMMUNOCAP INTERP .IGE Florence IgE Qn (S) <0.35 <0.35 [facility] Work Phone: Comment on above: SEE IMMUNOCAP INTERP .IGE Wheat IgE Qn (S) <0.35 <0.35 [facility] Work Phone: Comment on above: SEE IMMUNOCAP INTERP .IGE SEE COMMENT [facility] Work Phone: Comment on above: REFERENCE RANGE (IMM UNOCAP) IGE KU/L CLASS INTERPRETATION < 0.35 0 BELOW DETECTION 0.35- 0.69 1 LOW POSITIVE 0.70- 3.49 2 MODERATE POSITIVE 3.50- 17.49 3 HIGH TTVARPRN96.50- 49 4 VERY HIGH [id number] - 99 5 VERY HIGH POSITIVE >100 6 VERY HIGH POSITIVE Culture, Throaton 10-30-2018 Culture, Throat OR DERED BY: SARKIS ROGERS SOURCE: Throat Throat COLLECTED: 10/30/18 15:03 ANTIBIOTICS AT KIP.: RECEIVED : 10/30/18 19:13 Culture, Throat FINAL 11/01/18 08:10 Usual respiratory jessica in 48 hours Normal [place] Comment on above: Performed By: #### C XTHR #### [place] [address] [place] [address] Vital Signs Date Time Vital Sign Value Performing Clinician Yamile rojas 01-18-2024 11:42-0400 Blood Pressure Location [facility] 01-18-2024 11:42-0400 Diastolic blood pressure 66 mm[Hg] [facility] 01-18-2024 11:42-0400 Heart rate 61 /min [facility] 01-18-2024 11:42-0400 SaO2% (BldA) [Mass fraction] 97 % Micah Diaz [facility] 01-18-2024 11:42-0400 Systolic blood pressure 118 mm[Hg] Micah Diaz [facility] 11-12-2023 23:00-0400 Diastolic blood pressure 70 mm[Hg] Atilio Devin [facility] 11-12-2023 23:00-0400 Heart rate 58 /min Atilio Devin [facility] 11-12-2023 23:00-0400 Mean blood pressure 90 mm[Hg] Atilio Devin [facility] 11-12-2023 23:00-0400 Respiratory rate 8 /min Atilio Devin [facility] 11-12-2023 23:00-0400 SaO2% (BldA) [Mass fraction] 96 % Atilio Devin [facility] 11-12-2023 23:00-0400 Systolic blood pressure 131 mm[Hg] Atilio Devin [facility] 11-12-2023 22:00-0400 Diastolic blood pressure 60 mm[Hg] Atilio Devin [facility] 11-12-2023 22:00-0400 Heart rate 64 /min Atilio Devin [facility] 11-12-2023 22:00-0400 Mean blood pressure 79 mm[Hg] Atilio Devin [facility] 11-12-2023 22:00-0400 Respiratory rate 25 /min Atilio Devin [facility] 11-12-2023 22:00-0400 SaO2% (BldA) [Mass fraction] 97 % Atilio Beltran [facility] 11-12-2023 22:00-0400 Systolic blood pressure 117 mm[Hg] Atilio Beltran [facility] 11-12-2023 21:00-0400 Diastolic blood pressure 72 mm[Hg] Atilio Beltran [facility] 11-12-2023 21:00-0400 Mean blood pressure 87 mm[Hg] Atilio Beltran [facility] 11-12-2023 21:00-0400 Respiratory rate 20 /min Atilio Beltran [facility] 11-12-2023 21:00-0400 SaO2% (BldA) [Mass fraction] 99 % Atilio Beltran [facility] 11-12-2023 21:00-0400 Systolic blood pressure 118 mm[Hg] Atilio Beltran [facility] 11-12-2023 20:41-0400 Body temperature 97.7 [degF] Atilio Beltran [facility] 11-12-2023 20:41-0400 Heart rate 63 /min Atilio Beltran [facility] 11-12-2023 20:41-0400 Respiratory rate 16 /min Atilio Beltran [facility] 2023 16:45-0400 Blood Pressure Location [facility] 2023 16:45-0400 Diastolic blood pressure 60 mm[Hg] [facility] 2023 16:45-0400 Heart rate 64 /min [facility] 2023 16:45-0400 SaO2% (BldA) [Mass fraction] 96 % [facility] 2023 16:45-0400 Systolic blood pressure 116 mm[Hg] [facility] 09-24-2022 04:19-0400 Diastolic blood pressure 58 mm[Hg] Vincent Maxim [facility] 09-24-2022 04:19-0400 Heart rate 60 /min Vincent Maxim [facility] 09-24-2022 04:19-0400 Respiratory rate 18 /min Vincent Maxim [facility] 09-24-2022 04:19-0400 SaO2% (BldA) [Mass fraction] 96 % Vincent Maxim [facility] 09-24-2022 04:19-0400 Systolic blood pressure 114 mm[Hg] Vincent Maxim [facility] 09-24-2022 02:53-0400 Diastolic blood pressure 56 mm[Hg] Vincent Maxim [facility] 09-24-2022 02:53-0400 Heart rate 68 /min Vincent Maxim [facility] 09-24-2022 02:53-0400 Mean blood pressure 70 mm[Hg] Vincent Maxim [facility] 09-24-2022 02:53-0400 Respiratory rate 15 /min Vincent Maxim [facility] 09-24-2022 02:53-0400 SaO2% (BldA) [Mass fraction] 92 % Vincent Maxim [facility] 09-24-2022 02:53-0400 Systolic blood pressure 99 mm[Hg] Vincent Maxim [facility] 09-24-2022 02:19-0400 Blood Pressure Location Vincent Maxim [facility] 09-24-2022 02:19-0400 Diastolic blood pressure 52 mm[Hg] Vincent Maxim [facility] 09-24-2022 02:19-0400 Heart rate 75 /min Vincent Pan [facility] 09-24-2022 02:19-0400 Mean blood pressure 68 mm[Hg] Vincent Pan [facility] 09-24-2022 02:19-0400 Respiratory rate 18 /min Vincent Pan [facility] 09-24-2022 02:19-0400 SaO2% (BldA) [Mass fraction] 95 % Vincent Pan [facility] 09-24-2022 02:19-0400 Systolic blood pressure 101 mm[Hg] Vincent Pan [facility] 09-24-2022 01:07-0400 Blood Pressure Location Vincent Pan [facility] 09-24-2022 01:07-0400 Mean blood pressure 72 mm[Hg] Vincent Pan [facility] 09-23-2022 22:20-0400 Respiratory rate 16 /min Vincent Pan [facility] 09-20-2022 12:24-0400 Body mass index (BMI) [Ratio] 36.48 kg/m2 Kayla [facility] DO Work Phone: 09-20-2022 12:24-0400 Body surface area Derived from formula 1.81 m2 Kayla Dent [facility] DO Work Phone: 09-20-2022 12:24-0400 Body weight 84.73 kg Kayla Dent [facility] DO Work Phone: 09-20-2022 12:24-0400 Diastolic blood pressure 72 mm[Hg] Kayla Dent [facility] DO Work Phone: 09-20-2022 12:24-0400 Heart rate 61 /min Kayla Monroealonzo Dent [facility] 305 DO Work Phone: 09-20-2022 12:24-0400 Systolic blood pressure 132 mm[Hg] Kayla Monroealonzo Dent [facility] 305 DO Work Phone: 08-29-2022 10:03-0400 Heart rate 64 /min Kayla Monroealonzo Dent [facility] 300 DO Work Phone: 08-25-2022 14:17-0500 Body temperature 97.88 [degF] Kayla Dent Other Phone: [facility] 08-25-2022 14:17-0500 Diastolic blood pressure 63 mm[Hg] Kayla Dent Other Phone: [facility] 08-25-2022 14:17-0500 Heart rate 69 /min Kayla Dent Other Phone: [facility] 08-25-2022 14:17-0500 Respiratory rate 16 /min Kayla Dent Other Phone: [facility] 08-25-2022 14:17-0500 SaO2% (BldA) [Mass fraction] 93 % Kayla Dent Other Phone: [facility] 08-25-2022 14:17-0500 Systolic blood pressure 120 mm[Hg] Kayla Dent Other Phone: [facility] 08-18-2022 10:45-0500 Body height 152.4 cm Kayla Monroeeen Dent [facility] 300 DO Work Phone: 08-18-2022 10:45-0500 Body mass index (BMI) [Ratio] 36.13 kg/m2 Kayla Monroeeen Dent [facility] 300 DO Work Phone: 08-18-2022 10:45-0500 Body surface area Derived from formula 1.81 m2 Kayla Dent [facility] 300 DO Work Phone: 08-18-2022 10:45-0500 Body weight 83.92 kg Kayla Dent [facility] 300 DO Work Phone: 08-18-2022 10:45-0500 Diastolic blood pressure 80 mm[Hg] Kayla Dent [facility] 300 DO Work Phone: 08-18-2022 10:45-0500 Heart rate 50 /min Kayla Dent [facility] 300 DO Work Phone: 08-18-2022 10:45-0500 Systolic blood pressure 134 mm[Hg] Kayla Dent [facility] DO Work Phone: 08-07-2022 09:06-0500 Blood Pressure Location Luna DICKINSON [facility] 08-07-2022 09:06-0500 Diastolic blood pressure 74 mm[Hg] Lunadominic DICKINSON [facility] 08-07-2022 09:06-0500 Heart rate 66 /min Luna DICKINSON [facility] 08-07-2022 09:06-0500 SaO2% (BldA) [Mass fraction] 95 % Lunadominic DICKINSON [facility] 08-07-2022 09:06-0500 Systolic blood pressure 118 mm[Hg] Luna DICKINSON [facility] 07-12-2022 15:48-0500 Blood Pressure Location Skip Gonzalez [facility] 07-12-2022 15:48-0500 Diastolic blood pressure 70 mm[Hg] Skip Gonzalez [facility] 07-12-2022 15:48-0500 Heart rate 69 /min Skip Gonzalez [facility] 07-12-2022 15:48-0500 Respiratory rate 18 /min Skip Gonzalez [facility] 07-12-2022 15:48-0500 SaO2% (BldA) [Mass fraction] 98 % Skip Gonzalez [facility] 07-12-2022 15:48-0500 Systolic blood pressure 112 mm[Hg] Skip Gonzalez [facility] 12-21-2021 10:04-0400 Body height 152.4 cm Salima Spenceese Work Phone: [facility] DO Work Phone: 12-21-2021 10:04-0400 Body mass index (BMI) [Ratio] 36.72 kg/m2 Salima Spenceese Work Phone: [facility] DO Work Phone: 12-21-2021 10:04-0400 Body surface area Derived from formula 1.82 m2 Salima Spenceese Work Phone: [facility] DO Work Phone: 12-21-2021 10:04-0400 Body weight 85.28 kg Salima Spenceese Work Phone: [facility] DO Work Phone: 12-21-2021 10:04-0400 Diastolic blood pressure 70 mm[Hg] Salima Spenceese Work Phone: [facility] DO Work Phone: 12-21-2021 10:04-0400 Heart rate 68 /min Salima Spenceese Work Phone: [facility] DO Work Phone: 12-21-2021 10:04-0400 Systolic blood pressure 112 mm[Hg] Salima Recinosabrese Work Phone: [facility] DO Work Phone: 11-22-2021 15:34-0400 Body height 152.4 cm [facility]ima [facility]inosabrese [facility] Work [facility]: 11-22-2021 15:34-0400 Body mass index (BMI) [Ratio] 36.72 kg/m2 Salima [facility]inosabrese [facility] Work Phone: 11-22-2021 15:34-0400 Body surface area Derived from formula 1.82 m2 Salima Recinosabrese Work Phone: [facility] Work Phone: 11-22-2021 15:34-0400 Body temperature 97 [degF] Salima Candelario Kalina Work Phone: [facility] Work Phone: 11-22-2021 15:34-0400 Body weight 85.28 kg Salima Recinosabrese Work Phone: [facility] Work Phone: 11-22-2021 15:34-0400 Diastolic blood pressure 73 mm[Hg] Salima Recinosabrese Work Phone: [facility] Work Phone: 11-22-2021 15:34-0400 Heart rate 66 /min Salima Spenceese Work Phone: [facility] Work Phone: 11-22-2021 15:34-0400 SaO2% (BldA) [Mass fraction] 97 % Salima Candelario Kalina Work Phone: [facility] Work Phone: 11-22-2021 15:34-0400 Systolic blood pressure 112 mm[Hg] Salima Recinosabrese Work Phone: [facility] Work Phone: 07-12-2021 08:30-0500 Body height 152.4 cm Salima Recinosabrese Work Phone: [facility] Work Phone: 07-12-2021 08:30-0500 Body mass index (BMI) [Ratio] 36.33 kg/m2 Salima Recinosabrese Work Phone: [facility] Work Phone: 07-12-2021 08:30-0500 Body surface area Derived from formula 1.81 m2 Salima Candelario Kalina Work Phone: [facility] Work Phone: 07-12-2021 08:30-0500 Body temperature 96.4 [degF] Salima Recinosabrese Work Phone: [facility] Work Phone: 07-12-2021 08:30-0500 Body weight 84.37 kg Salima Recinosabrese Work Phone: [facility] Work Phone: 07-12-2021 08:30-0500 Diastolic blood pressure 82 mm[Hg] Salima Spenceese Work Phone: [facility] Work Phone: 07-12-2021 08:30-0500 Heart rate 88 /min Salima Gilman Work Phone: [facility] Work Phone: 07-12-2021 08:30-0500 Respiratory rate 16 /min Salima Gilman Work Phone: [facility] Work Phone: 07-12-2021 08:30-0500 SaO2% (BldA) [Mass fraction] 98 % Salima Gilman Work Phone: [facility] Work Phone: 07-12-2021 08:30-0500 Systolic blood pressure 122 mm[Hg] Salima Gilman Work Phone: [facility] Work Phone: 06-23-2021 13:19-0500 Body height 152.4 cm Salima Gilman Work Phone: [facility] DO Work Phone: 06-23-2021 13:19-0500 Body mass index (BMI) [Ratio] 35.54 kg/m2 Salima Gilman Work Phone: [facility] DO Work Phone: 06-23-2021 13:19-0500 Body surface area Derived from formula 1.79 m2 Salima Gilman Work Phone: [facility] DO Work Phone: 06-23-2021 13:19-0500 Body weight 82.56 kg Salima Spenceese Work Phone: [facility] DO Work Phone: 06-23-2021 13:19-0500 Diastolic blood pressure 78 mm[Hg] Salima Gilman Work Phone: [facility] DO Work Phone: 06-23-2021 13:19-0500 Heart rate 66 /min Salima Spenceese Work Phone: [facility] DO Work Phone: 06-23-2021 13:19-0500 Systolic blood pressure 120 mm[Hg] Salima Spenceese Work Phone: [facility] DO Work Phone: 06-07-2021 09:45-0500 65 1 Salima Spenceese Work Phone: [facility] DO Work Phone: Comment on above: [id number] 05-11-2021 10:30-0500 Diastolic blood pressure 68 mm[Hg] Salima Gilman Work Phone: [facility] DO Work Phone: 05-11-2021 10:30-0500 Systolic blood pressure 126 mm[Hg] Salima Gilman Work Phone: [facility] DO Work Phone: 05-11-2021 09:53-0500 Body height 152.4 cm Salima Gilman Work Phone: [facility] DO Work Phone: 05-11-2021 09:53-0500 Body mass index (BMI) [Ratio] 35.94 kg/m2 Salima Spenceese Work Phone: [facility] DO Work Phone: 05-11-2021 09:53-0500 Body surface area Derived from formula 1.8 m2 Salima Spenceese Work Phone: [facility] DO Work Phone: 05-11-2021 09:53-0500 Body weight 83.46 kg Salima Gilman Work Phone: [facility] DO Work Phone: 05-11-2021 09:53-0500 Diastolic blood pressure 82 mm[Hg] Salima Kodak Kalina Work Phone: [facility] DO Work Phone: 05-11-2021 09:53-0500 Heart rate 81 /min Salima Kodak Kalina Work Phone: [facility] DO Work Phone: 05-11-2021 09:53-0500 Systolic blood pressure 148 mm[Hg] Salima Kodak Kalina Work Phone: [facility] DO Work Phone: 10-29-2020 18:09-0400 Body height 152.4 cm Luna COLLAZOC [facility] Work Phone: 10-29-2020 18:09-0400 Body mass index (BMI) [Ratio] 34.76 kg/m2 Luna COLLAZOC [facility] Work Phone: 10-29-2020 18:09-0400 Body surface area Derived from formula 1.78 m2 Luna YOON-C [facility] Work Phone: 10-29-2020 18:09-0400 Body temperature 97.5 [degF] Luna YOON-C [facility] Work Phone: 10-29-2020 18:09-0400 Body weight 80.74 kg Luna YOON-C [facility] Work Phone: 10-29-2020 18:09-0400 Diastolic blood pressure 58 mm[Hg] Luna Zacarias PA-C [facility] Work Phone: 10-29-2020 18:09-0400 Heart rate 80 /min Lunadominic Ellisdy PA-C [facility] Work Phone: 10-29-2020 18:09-0400 Respiratory rate 16 /min Lunadominic Zacarias PA-C [facility] Work Phone: 10-29-2020 18:09-0400 SaO2% (BldA) [Mass fraction] 98 % Lunadominic Ellisdy PA-C [facility] Work Phone: 10-29-2020 18:09-0400 Systolic blood pressure 118 mm[Hg] Luna Zacarias PA-C [facility] Work Phone: 10-29-2020 18:09-0400 3 1 Luna Zacarias PA-C [facility] Work Phone: Comment on above: Para 10-29-2020 16:09-0400 Body height 152.4 cm Salima Gilman Work Phone: [facility] Work Phone: 10-29-2020 16:09-0400 Body mass index (BMI) [Ratio] 34.76 kg/m2 Salima Gilman Work Phone: [facility] Work Phone: 10-29-2020 16:09-0400 Body surface area Derived from formula 1.78 m2 Salima Gilman Work Phone: [facility] Work Phone: 10-29-2020 16:09-0400 Body temperature 97.5 [degF] Salima Kodak Kalina Work Phone: [facility] Work Phone: 10-29-2020 16:09-0400 Body weight 80.74 kg Salima Spenceese Work Phone: [facility] Work Phone: 10-29-2020 16:09-0400 Diastolic blood pressure 58 mm[Hg] Salima Kodak Kalina Work Phone: [facility] Work Phone: 10-29-2020 16:09-0400 Heart rate 80 /min Salima Kodak Kalina Work Phone: [facility] Work Phone: 10-29-2020 16:09-0400 Respiratory rate 16 /min Salima Spenceese Work Phone: [facility] Work Phone: 10-29-2020 16:09-0400 SaO2% (BldA) [Mass fraction] 98 % Salima Kodak Kalina Work Phone: [facility] Work Phone: 10-29-2020 16:09-0400 Systolic blood pressure 118 mm[Hg] Salima Recinosabrese Work Phone: [facility] Work Phone: 10-29-2020 16:09-0400 3 1 Salima Kodak RecinosKalina Work Phone: [facility] Work Phone: Comment on above: GRAV PARA 09-24-2020 11:19-0400 Body height 152.4 cm Simone Ciaccia [facility] [place] Work Phone: 09-24-2020 11:19-0400 Body mass index (BMI) [Ratio] 30.66 kg/m2 Simone Coulter [facility] [place] Work Phone: 09-24-2020 11:19-0400 Body surface area Derived from formula 1.68 m2 Simone Coulter [facility] [place] Work Phone: 09-24-2020 11:19-0400 Body temperature 96.8 [degF] Simone Coulter [facility] [place] Work Phone: 09-24-2020 11:190400 Body weight 71.22 kg Simone Coulter [facility] [place] Work Phone: 09-24-2020 11:19-0400 Diastolic blood pressure 64 mm[Hg] Simone Coulter [facility] [place] Work Phone: 09-24-2020 11:19-0400 Heart rate 60 /min Simone Coulter [facility] [place] Work Phone: 09-24-2020 11:19-0400 Respiratory rate 16 /min Simone Coulter [facility] [place] Work Phone: 09-24-2020 11:19-0400 SaO2% (BldA) [Mass fraction] 97 % Simone Coulter [facility] [place] Work Phone: 09-24-2020 11:19-0400 Systolic blood pressure 110 mm[Hg] Simone Coulter [facility] [place] Work Phone: 09-24-2020 11:19-0400 3 1 Simone Coulter [facility] [place] Work Phone: Comment on above: Landon Abbott 01-12-2020 11:18-0400 BMI (Body Mass Index) 20.89 kg/m2 Priscilla Leahy [facility] [place] A2100 DO Work Phone: 01-12-2020 11:18-0400 Body weight 69.85 kg Priscilla Leahy [facility] [place] A2100 DO Work Phone: 01-12-2020 11:18-0400 BP Diastolic 78 mm[Hg] Priscilla Leahy [facility] [place] A2100 DO Work Phone: 01-12-2020 11:18-0400 BP Systolic 124 mm[Hg] Priscilla Leahy VD-[facility] [place] A2100 DO Work Phone: 01-12-2020 11:18-0400 [...] 01-05-2020 15:57-0400 Height 157.48 cm Priscilla Leahy TJ[facility] [place] A2100 DO Work Phone: 01-05-2020 15:57-0400 Pulse (Heart Rate) 75 /min Priscilla Leahy [facility] [place] A2100 DO Work Phone: 01-05-2020 15:57-0400 Pulse Oximetry 98 % Priscilla Leahy [facility] A2100 DO Work Phone: 01-05-2020 15:57-0400 Respiratory Rate 16 /min Priscilla Leayh [facility] [place] A2100 DO Work Phone: 10-15-2019 17:37-0400 BMI (Body Mass Index) 27.34 kg/m2 Christian Benito -[facility] Work Phone: 10-15-2019 17:37-0400 Body weight 67.81 kg Christian Tolbertlock -[facility] Work Phone: 10-15-2019 17:37-0400 BP Diastolic 70 mm[Hg] Christian Tolbertlock -[facility] Work Phone: 10-15-2019 17:37-0400 BP Systolic 102 mm[Hg] Christian Tolbertlock -[facility] Work Phone: 10-15-2019 17:37-0400 BSA (Body Surface Area) 1.69 m2 Christian Tolbertlock -[facility] Work Phone: 10-15-2019 17:37-0400 Height 157.48 cm Christian Beniot -[facility] Work Phone: Encounters Encounter Date Encounter Type Care Provider Facility Start: 04-18-2024 ambulatory Micah Diaz Facili ty:[facility] Start: 01-18-2024 End: 01-18-2024 ambulatory DO Micah Daiz Facility:[facility] Start: 01-18-2024 End: 01-18-2024 Patient encounter procedure Micah Diaz [facility] Start: 11-12-2023 End: 11-12-2023 Emergency department patient visit Atilio Beltran [facility] Start: 10-26-2023 End: 10-26-2023 ambulatory JUAN LUIS A PLEASNICK Not Available Start: 10-19-2023 End: 10-19-2023 ambulatory JUAN LUIS A PLEASNICK Not Available Start: 10-12-2023 End: 10-12-2023 ambulatory JUAN LUIS A PLEASNICK Not Available Start: 10-12-2023 End: 10-12-2023 ambulatory DO Mciah Diaz Facility:[facility] Start: 10-12-2023 End: 10-12-2023 Patient encounter procedure Micah Diaz [facility] Start: 10-10-2023 End: 10-10-2023 ambulatory JUAN LUIS A PLEASNICK Not Available Start: 10-05-2023 End: 10-05-2023 ambulatory JUAN LUIS A PLEASNICK Not Available Start: 10-03-2023 End: 10-03-2023 ambulatory JUAN LUIS A PLEASNICK Not Available Start: 2023 End: 2023 ambulatory DO Micah Diaz Facility:[facility] Start: 2023 End: 2023 Patient encounter procedure Micah Diaz [facility] Start: 09-28-2023 End: 09-28-2023 ambulatory JUAN LUIS A PLEASNICK Not Available Start: 09-26-2023 End: 09-26-2023 ambulatory JUAN LUIS A PLEASNICK Not Available Start: 09-21-2023 End: 09-21-2023 ambulatory JUAN LUIS A PLEASNICK Not Available Start: 09-13-2023 End: 09-13-2023 ambulatory JUAN LUIS A PLEASNICK Not Available Start: 07-27-2023 End: 07-27-2023 ambulatory [facility] Ambulatory Start: 06-29-2023 ambulatory DO Micah Ramirez ity:FM Jony Start: 06-29-2023 End: 07-14-2023 Pre-admission assessment Kayla Dent [facility] Start: 04-26-2023 End: 07-25-2023 ambulatory CYNDI CHEW Facility:[facility] Start: 04-26-2023 End: 07-25-2023 Recurring CYNDI CHEW [facility] Start: 04-16-2023 End: 04-16-2023 ambulatory [facility] Ambulatory Start: 04-16-2023 End: 04-16-2023 Office outpatient visit 25 minutes [facility] 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 Work Phone: [facility] Comment on above: High risk medication use (Primary Dx); Palpitations; Premature ventricular contractions (PVCs) (VPCs); Tachycardia Start: 04-10-2023 End: 04-11-2023 ambulatory JOSELO HINSON [facility] Start: 04-10-2023 End: 04-10-2023 Subsequent hospital visit by physician [facility] [place] Comment on above: Palpitations Start: 03-30-2023 End: 03-30-2023 ambulatory CYNDI CHEW Facility:[facility] Start: 03-30-2023 End: 03-30-2023 Patient encounter procedure CYNDI CHEW [facility] Start: 03-05-2023 Patient encounter procedure Kayla [facility] 300 DO Work Phone: Start: 03-05-[address] Kayla Chavez acility:[id number] Start: 03-01-2023 AUDIT Kayla Dent [facility] 320 DO Work Phone: Start: 11-08-2022 ambulatory MD FEDERICO WING Fa cility: Start: 10-13-2022 Chart Update Kayla Dent [facility] [place] [facility] Work Phone: Start: 10-10-[address] Kayla Chavez acility:[id number] Start: 09-23-2022 End: 09-24-2022 Emergency department patient visit Vincent Pan [facility] Start: 09-22-[address] Kayla Chavez acility: Start: 09-22-2022 End: 09-22-2022 Patient encounter procedure Federico Wing [facility] Start: 09-21-[address] Kayla Chavez acility: Start: 09-21-2022 End: 09-21-2022 Patient encounter procedure Federico Wing [facility] Start: 09-20-2022 ambulatory MD FEDERICO WING Fa cility: Start: 09-20-2022 Office outpatient vi sit 40 minutes Kayla Dent [facility] 305 DO Work Phone: Start: 09-01-2022 ambulatory Federico Diaz Facility:[id number] Start: 08-29-2022 EKG, Provider: [facility] [id number] TRUCK LOADER 1,[id number], Status: Pen, Time: 10:00 AM Kayla [facility]a [facility] 300 DO Work Phone: Start: 08-29-2022 Patient encounter procedure [facility] 300 DO Work Phone: Start: 08-29-2022 ambulatory MD FEDERICO WING Fa cility: Start: 08-28-2022 Patient encounter procedure Kayla Sonya [facility] 300 DO Work Phone: Start: 08-28-2022 ambulatory MD FEDERICO WING Fa cility: Start: 08-25-2022 AUDIT [facility] [place] Work Phone: Start: 08-23-2022 End: 08-25-2022 Evaluation and management of inpatient Skip Platzbecker Facility:[id number] Start: 08-23-2022 AUDIT [facility] [place] Work Phone: Start: 08-22-2022 End: 08-25-2022 Evaluation and management of inpatient Skip Platzbecker [place] 8 Cardio ICU [id number] Start: 08-18-2022 Office consultation new/estab patient 80 min Kayla Sonya [facility] 300 DO Work Phone: Start: 08-18-[address] Skip Gonzalez Facility:[id number] Start: 08-07-2022 End: 08-07-2022 Patient encounter procedure Luna DICKINSON [facility] Start: 07-12-2022 End: 07-12-2022 Patient encounter procedure Skip Gonzalez [facility] Start: 06-29-2022 End: 06-29-2022 ambulatory CAMPBELL HERNANDEZ Facility:[id number] Start: 06-27-2022 End: 06-27-2022 Patient encounter procedure Kayla Dent [facility] Start: 06-26-2022 End: 07-08-2022 Pre-admission assessment Kayla Dent [facility] Start: 03-28-2022 End: 03-28-2022 Patient encounter procedure Kayla Dent [facility] Start: 12-28-2021 Chart Update Salima garcia Work Phone: [facility] Work Phone: Start: 12-28-[address] Salima Gilman Facility:[id number] Start: 12-21-2021 Office outpatient vi sit 15 minutes Salima Gilman [facility] Phone[facility] 250 DO Work Phone: Start: 12-21-2021 Patient encounter procedure Salima Gilman Work Phone: [facility] 127 DO Work Phone: Start: 11-30-[address] Salima Gilman Facility:[id number] Start: 11-22-2021 Office outpatient vi sit 10 minutes Salima Gilman Work Phone: [facility] Work Phone: Start: 11-22-2021 Patient encounter procedure Salima Gilman Work Phone: [facility] Work Phone: Start: 08-18-2021 Rx Change Salima garcia Work Phone: [facility] Work Phone: Start: 08-02-2021 End: 08-05-2021 ambulatory SAMARA DAIANA [place] Start: 07-12-2021 Office outpatient vi sit 15 minutes Salima Spenceese Work Phone: [facility] Work Phone: Start: 06-23-2021 FUV, Provider: Samara Roe, Status: Pen, Time: 1:15 PM Salima Spenceese Work Phone: [facility] 127 DO Work Phone: Start: 06-23-2021 Patient encounter procedure Salima Spenceese Work Phone: [facility] 127 DO Work Phone: Start: 06-22-2021 Chart Update Salima Recinos abrese Work Phone: [facility] 127 DO Work Phone: Start: 06-17-2021 Chart Update Salima Recinos florindaese Work Phone: [facility] Work Phone: Start: 06-14-2021 End: 09-12-2021 Patient encounter procedure SALIMA SPENCEESE [facility] Start: 06-07-2021 Patient encounter procedure Salima Spenceese Work Phone: [facility] 127 DO Work Phone: Start: 05-23-2021 Chart Update Salima Recinos florindaese Work Phone: [facility] 127 DO Work Phone: Start: 05-11-2021 Office outpatient ne w 45 minutes Salima Spenceese Work Phone: [facility] 127 DO Work Phone: Start: 05-03-2021 Patient encounter procedure Salima Gilman Work Phone: [facility] [place] Work Phone: Start: 04-27-2021 AUDIT Salima garcia Work Phone: [facility] Work Phone: Start: 04-22-2021 [facility], Provider: Simone Coulter, Status: Pen, Time: 8:00 AM Salima Spenceese Work Phone: [facility] [place] Work Phone: Start: 04-21-2021 Chart Update Salima garcia Work Phone: [facility] [place] Work Phone: Start: 12-09-2020 Patient encounter procedure Salima Gilman Work Phone: [facility] [place] Work Phone: Start: 11-23-2020 AUDIT Salima garcia Work Phone: [facility] Work Phone: Start: 10-29-2020 Patient encounter procedure Luna Zacarias PA-C [facility] Work Phone: Start: 10-14-2020 Patient encounter procedure [facility] [place] Work Phone: Start: 09-24-2020 Patient encounter procedure Simone Coulter [facility] [place] Work Phone: Start: 09-16-2020 Patient encounter procedure Simone Coulter [facility] [place] Work Phone: Start: 08-17-2020 Patient encounter procedure Simone Coulter DO [facility] [place] Work Phone: Start: 08-09-2020 Patient encounter procedure Simone Coulter DO [facility] [place] Work Phone: Start: 06-28-2020 Patient encounter procedure Simone Coulter DO [facility] [place] Work Phone: Start: 06-15-2020 Patient encounter procedure Simone Coulter DO [facility] [place] Work Phone: Start: 05-05-2020 Patient encounter procedure Priscilla Leahy [facility] 6115 Work Phone: Start: 04-30-2020 Patient encounter procedure Priscilla Leahy [facility] 6115 Work Phone: Start: 04-26-2020 Patient encounter procedure Priscilla Leahy [facility] 6115 Work Phone: Start: 02-16-2020 Patient encounter procedure Priscilla Leahy [facility] 6115 Work Phone: Start: 01-21-2020 Patient encounter procedure Priscilla Leahy [facility] 6115 Work Phone: Start: 01-16-2020 Patient encounter procedure Priscilla Leahy [facility] 6115 Work Phone: Start: 01-12-2020 Patient encounter procedure Priscilla Leahy [facility] 6115 Work Phone: Start: 01-05-2020 Patient encounter procedure Priscilla sanchez A2100 DO Work Phone: Start: 10-27-2019 Patient encounter procedure Priscilla JACOBSENVH-[facility] A2100 DO Work Phone: Start: 10-15-2019 Patient encounter procedure Christian Benito [facility] Work Phone: Start: 08-25-2019 Patient encounter procedure Christian Benito [facility] Work Phone: Start: 06-30-2019 Patient encounter procedure Salima Gilman [facility] Work Phone: Start: 05-24-2019 Patient encounter procedure Salima Gilman [facility] Work Phone: Cancer cervix - screening done Simone Coulter DO [facility] Work Phone: Comment on above: 05/24/19-WNL, HPV NEG ; Encounter for gynecological examination (general) (routine) without abnormal findings Salima Gilman Work Phone: [facility] Work Phone: Comment on above: 05/24/19-WNL, HPV NEG ; Mammography normal Salima perry Work Phone: [facility] Work Phone: Comment on above: 05/2020-cat 112// 019-CAT 1; Procedures Date Procedure Procedure Detail Performing Clinician Start: 07-27-2023 ECG 12-LEAD EVIE Reyes Start: 07-27-2023 FOLLOW UP IN CARDIOLOGY EVIE AGUDELO Start: 04-16-2023 Ecg routine ecg w/le ast 12 lds w/i&r 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 Work Phone: Start: 04-10-2023 LEGACY HOLTER OR ASHWIN NT [employer] WORKFLOW CONSULTANT JOSELO HINSON Start: 04-10-2023 Xtrnl pt activtd ecg dwnld w/r&i 30 days Joselo Hinson 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 Work Phone: Start: 08-25-2022 End: 08-25-2022 EKG [...] Christian Benito Start: 06-30-2019 Scallop, IgE, IC Jenlux Gilman Start: 06-30-2019 Shrimp, IgE, IC Jenjordy Gilman Start: 05-24-2019 Microscopic observat ion [Identifier] in Cervix by Cyto stain Holter Arthrodesis of ankle Micah Diaz Bilateral tubal ligation Mariposa Gilman Comment on above: 1995; Carpal tunnel syndro me (disorder) Sikp Gonzalez section Salima perry Comment on above: 1990, 1992, 1995; section Skip moreno Comment on above: x 3 Cholecystectomy Salima garcia Comment on above: 2016; Cholecystectomy Skip brooke Decompression of med arnold nerve Salima Gilman Work Phone: Extraction of wisdom tooth J molly Gilman Ligation of fallopian tube Adolfo Gonzalez Structure of wisdom tooth (body structure) Skip Gonzalez Plan of Treatment Date Care Activity Detail Author Start: 05-17-2026 Lipid panel Lipid Panel [facility] Start: 07-16-2023 End: 07-16-2023 Patient encounter procedure 07/16/2023 11:00 AM EST Office Visit [address] [place] [address] Federico Wing MD [address] [facility] Medical Office [facility] 305 [place] [address] [facility] Start: 05-14-2023 FUV, Provider: Federico Wing, Status: Pen, Time: 8:45 AM FUV, Provider: Federico Wing, Status: Pen, Time: 8:45 AM [facility] 320 DO Work Phone: Start: 05-14-2023 End: 05-14-2023 Patient encounter procedure 05/14/2023 8:45 AM EST Office Visit [address] [place] [address] Federico Wing MD [address] [facility] Medical Office [facility], [address] [address] [facility] Start: 04-16-2023 End: 04-16-2023 Patient encounter procedure 04/16/2023 1:00 PM EDT Office Visit [address] [address] 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, 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 [address] [place] [id number] [facility] Start: 03-05-2023 EVENT GRACY, Provider : LEON SCHMIDT TRUCK LOADER 1,[id number], Status: Pen, Time: 3:00 PM EVENT GRACY, Provider: LEON SCHMIDT TRUCK LOADER 1,[id number], Status: Pen, Time: 3:00 PM [facility] 320 DO Work Phone: Start: 02-16-2023 Influenza vaccination Influenza Vacc ine (#1) [facility] Start: 12-28-2022 Screening for malignant neoplasm of breast Mammogram [facility] Start: 11-08-2022 FUVRESULTS, Provider : Federico Wing, Status: Pen, Time: 11:45 AM FUVRESULTS, Provider: Federico Wing, Status: Pen, Time: 11:45 AM [facility] [place] Work Phone: Start: 09-20-2022 FUVHOSP, Provider: Federico Wing, Status: Pen, Time: 11:45 AM FUVHOSP, Provider: Federico Wnig, Status: Pen, Time: 11:45 AM [facility] [place] Work Phone: Start: 09-20-2022 Patient encounter procedure [facility] Start: 09-01-2022 [facility], Provider: Federico Wing, Status: Pen, Time: 9:[address] [facility], Provider: Federico Wing, Status: Pen, Time: 9:00 AM [facility] Work Phone: Start: 08-29-2022 EKG, Provider: LEON SCHMIDT TRUCK LOADER 1,[id number], Status: Pen, Time: 10:00 AM EKG, Provider: LEON [id number] TRUCK LOADER 1,[id number], Status: Pen, Time: 10:00 AM [facility] [place] Work Phone: Start: 08-29-2022 Patient encounter procedure [facility] [place] Start: 08-28-2022 EKG, Provider: LEON SCHMIDT TRUCK LOADER 1,[id number], Status: Pen, Time: 10:00 AM EKG, Provider: STANTON [id number] TRUCK LOADER 1,[id number], Status: Pen, Time: 10:00 AM [facility] [place] Work Phone: Start: 08-28-2022 Patient encounter procedure [facility] [place] Start: 08-25-2022 Arrhythmia Arrhythmia Meek e: 25-Aug-2022 [facility] Start: 08-24-2022 Arrhythmia Arrhythmia Meek e: 24-Aug-2022 [facility] Start: 08-22-2022 Chest pain Chest pain Meek e: 22-Aug-2022 [facility] Start: 08-14-2022 Screening for malignant neoplasm of colon [facility] Start: 05-24-2022 Screening for malignant neoplasm of cervix [facility] Start: 12-21-2021 FUV, Provider: Samara Roe, Status: Pen, Time: 9:45 AM FUV, Provider: Samara Roe, Status: Pen, Time: 9:45 AM [facility] 127 DO Work Phone: Start: 09-30-2021 COVID-19 Vaccine (2 - Booster for Chioma series) COVID-19 Vaccine (2 - Booster for Chioma series) [facility] Start: 06-23-2021 FUV, Provider: Samara Roe, Status: Pen, Time: 1:15 PM FUV, Provider: Samara Roe, Status: Pen, Time: 1:15 PM [facility] 127 DO Work Phone: Start: 06-16-2021 FUV, Provider: Samara Roe, Status: Pen, Time: 1:00 PM FUV, Provider: Samara Roe, Status: Pen, Time: 1:00 PM [facility] 127 DO Work Phone: Start: 06-07-2021 HOLTER 48, Provider: LEON GREENWOOD TRUCK LOADER 1,[id number], Status: Pen, Time: 11:00 AM HOLTER 48, Provider: LEON GREENWOOD TRUCK LOADER 1,[id number], Status: Pen, Time: 11:00 AM [facility] 127 DO Work Phone: Start: 06-07-2021 STRESS ESTELLE, Provider : CAMPBELL [facility] NUCLEAR 01,[id number], Status: Pen, Time: 10:30 AM STRESS ESTELLE, Provider: [facility] NUCLEAR 01,[id number], Status: Pen, Time: 10:30 AM [facility] 127 DO Work Phone: Start: 06-07-2021 ECHO, Provider: CAMP[facility]LL [facility] ULTRASOUND 01,[id number], Status: Pen, Time: 9:45 AM ECHO, Provider: CAMP[facility]LL [facility] ULTRASOUND 01,[id number], Status: Pen, Time: 9:45 AM [facility] 127 DO Work Phone: Start: 05-11-2021 NPVRFRL, Provider: Samaar Roe, Status: Pen, Time: 9:30 AM NPVRFRL, Provider: Samara Roe, Status: Pen, Time: 9:30 AM [facility] [place] Work Phone: Start: 05-11-2021 NPVRFRL, Provider: Enrrique Porter, Status: Pen, Time: 9:15 AM NPVRFRL, Provider: Enrrique Porter, Status: Pen, Time: 9:15 AM [facility] Work Phone: Start: 05-10-2021 FUV, Provider: Salima Gilman, Status: Pen, Time: 8:45 AM FUV, Provider: Salima Gilman, Status: Pen, Time: 8:45 AM [facility] Work Phone: Start: 05-03-2021 POV, Provider: Simone Coulter, Status: Pen, Time: 10:15 AM POV, Provider: Simone Coulter, Status: Pen, Time: 10:[address] [facility] [place] Work Phone: Start: 04-12-2021 POV, Provider: Simone Coulter, Status: Pen, Time: 9:00 AM POV, Provider: Simone Coulter, Status: Pen, Time: 9:[address] [facility] [place] Work Phone: Start: 04-01-2021 [facility], Provider: Simone Coulter, Status: Pen, Time: 7:[address] [facility], Provider: Simone Coulter, Status: Pen, Time: 7:30 AM [facility] [facility] Work Phone: Start: 12-09-2020 FUV, Provider: Simone Coulter, Status: Pen, Time: 8:00 AM FUV, Provider: Simone Coulter, Status: Pen, Time: 8:00 AM -[facility] Work Phone: Start: 2018 Zoster Vaccines (1 o f 2) Zoster Vaccines (1 of 2) [facility] Start: 1990 DTaP/Tdap/Td Vaccine s (1 - Tdap) DTaP/Tdap/Td Vaccines (1 - Tdap) [facility] Start: 1989 Screening for malignant neoplasm of cervix HPV/Cotest [facility] Start: 1986 Diabetes mellitus screening Diabetes Screening [facility] Start: 1986 Hepatitis C screening Hepatitis C Sc reening [facility] Start: 1974 Pneumococcal Vaccine : Pediatrics (0 to 5 Years) and At-Risk Patients (6 to 64 Years) (1 - PCV) Pneumococcal Vaccine: Pediatrics (0 to 5 Years) and At-Risk Patients (6 to 64 Years) (1 - PCV) [facility] Start: 1969 MMR Vaccines (1 of 1 - Standard series) MMR Vaccines (1 of 1 - Standard series) [facility] Start: 1968 Hepatitis B Vaccines (1 of 3 - 3-dose series) Hepatitis B Vaccines (1 of 3 - 3-dose series) [facility] Start: 1968 HIV screening HIV Screening [facility] Start: 1968 Screening for malignant neoplasm of colon [facility] Start: 1968 Yearly Adult Physical Yearly Adult P hysical [facility] Chest pain Chest pain [facility] ECG 12 Lead ECG 12 Lead ECG Routine High risk medication use Palpitations Premature ventricular contractions (PVCs) (VPCs) 04/16/2023 3:53 PM EDT [facility] Work Phone: End: 04-10-2023 Holter monitor study [facility] Area Work Phone: Comment on above: Once for 1 Occurrenc es starting 04/10/2023 until 04/10/2023 [facility] Work Phone: NEGATED: Highlighted row has been ruled out! Planned Goals not documented [facility] Work Phone: Immunizations Immunization Date Immunization Notes Care Provider Wendy wei 08-05-2021 [place] COVID-19 Vaccine 0.5 ML Intramuscular Suspension Salima Gilman Work Phone: [facility] Work Phone: 06-29-2021 Covid-19 Non-us Vaccine, Product Unknown 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 Work Phone: [facility] Work Phone: Payers Date Payer Category Payer Unknown [id number] 2022 Unknown 2022 Unknown [id number] 2018 Private Health Insurance [id number] 1968 Unknown [id number] 2.16.8 40.1.419846.3.579.2.182 1968 Unknown [id number] 2.16.84 0.1.262199.3.579.2.593 1968 Unknown [id number] 2.16.8 40.1.572400.3.579.2.1068 1968 Unknown [id number] 2.16.8 40.1.954377.3.579.2.1068 1968 Unknown [id number] 2.16.8 40.1.486375.3.579.2.1068 1968 Unknown [id number] 2.16.8 40.1.126625.3.579.2.1068 1968 Unknown [id number] 2.16.8 40.1.122118.3.579.2.1068 1968 Unknown [id number] 2.16. 840.1.080467.3.579.2.356 1968 Unknown [id number] 2.16. 840.1.565237.3.579.2.356 1968 Unknown [id number] 2.16. 840.1.517556.3.579.2. 1968 Unknown [id number] 2.16. 840.1.400519.3.579.2. 1968 Unknown [id number] 2.16. 840.1.203733.3.579.2. 1968 Unknown [id number] 2.16. 840.1.182392.3.579.2. 1968 Unknown [id number] 2.16. 840.1.533275.3.579.2. 1968 Unknown [id number] 2.16. 840.1.418604.3.579.2. 1968 Unknown [id number] 2.16.8 40.1.188229.3.579.2.5 1968 Unknown [id number] .16.8 40.1.860389.3.579.2.1244 1968 Unknown [id number] .16.8 40.1.472237.3.579.2.1244 1968 Unknown [id number] 2.16.84 0.1.254038.3.579.2.1259 1968 Unknown [id number] 2.16.84 0.1.530864.3.579.2.1259 1968 Unknown [id number] 2.16.84 0.1.449981.3.579.2.9 1968 Unknown [id number] 2.16.84 0.1.483678.3.579.2.1259 1968 Unknown [id number] 2.16.84 0.1.632049.3.579.2.1259 1969 Unknown [id number] 2.16.84 0.1.832726.3.579.2.1258 1968 Unknown [id number] 2.16.84 0.1.805022.3.579.2.1258 1968 Unknown [id number] 2.16.84 0.1.076372.3.579.2.1258 1968 Unknown [id number] 2.16.84 0.1.658078.3.579.2.1258 1968 Unknown [id number] 2.16.84 0.1.577217.3.579.2.1258 1968 Unknown [id number] 2.16.8 40.1.046178.3.579.2 1968 Unknown [id number] 2.16.8 40.1.060095.3.579.2 1968 Unknown [id number] 2.16.8 40.1.220476.3.579.2 1968 Unknown [id number] 2.16.8 40.1.227600.3.579.2 1968 Unknown [id number] 2.16.8 40.1.829566.3.579.2 1968 Unknown [id number] 2.16.8 40.1.298609.3.579.2 1968 Unknown [id number] 2.16.8 40.1.969996.3.579.2 1968 Unknown [id number] 2.16.8 40.1.634490.3.579.2 1968 Unknown [id number] 2.16.8 40.1.345239.3.579.2727 1959 Unknown [id number] Unknown [id number] Social History Date Type Detail Facility Start: 04-10-2023 End: 04-13-2023 Never a smoker Never a smoker [facility] Work Phone: Comment on above: 3-4 cups coffee corky y, occasional tea/soda; Start: 04-10-2023 End: 04-13-2023 Sex Assigned At Female [facility] Tobacco smoking status No Smoking Status Entered [facility] Start: 07-12-2022 End: 01-18-2024 Tobacco smoking status Never smoked tobacco (finding) [facility] Tobacco smoking status Never [facility] Tobacco smoking consumption unknown [facility] Start: 04-10-2023 Tobacco use and exposure Smokeless tobacco non-user [facility] Work Phone: Start: 04-10-2023 End: 04-13-2023 Alcohol intake Lifetime non-drinker (finding) [facility] Work Phone: Start: 1970 Sex Assigned At Not on file [facility] Work Phone: Start: 04-06-2023 End: 04-16-2023 Exposure to SARS-CoV-2 (event) Not sure [facility] NEGATED: Highlighted row - - [facility] Work Phone: Functional Status Date Assessment Result Facility 01-18-2024 Functional Status N/A [facility] 11-12-2023 Functional Status N/A [facility] 2023 Functional Status N/A [facility] 09-23-2022 Functional Status N/A [facility] 08-07-2022 Functional Status No [facility] 07-12-2022 Functional Status No [facility] Functional observable [facility] NEGATED: Highlighted row Functional performance Functional status health issues are not documented Disease [facility] Work Phone: Mental Status Date Assessment Result Facility 08-24-2022 Cognitive functi ons [id number] [facility] NEGATED: Highlighted row Cognitive function [Interpretation] Cognitive status health issues are not documented Disease [facility] Work Phone: Clinical Notes 06-17-2021 to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 content) 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 [email or web address]. provides no warranty or guarantee of the accuracy or completeness of information in this document.
== END 2024-02-05 10:55 | disposition home or self-care (01) ==
LOC: EC 10:54
PROVIDERS: Visit Provider Podiatrist Foot & Ankle Surgery
DX: M25.571 Pain in right ankle and joints of right foot (principal); M24.671 Ankylosis, right ankle
CPT/HCPCS: 73610; 73630

== ENCOUNTER 2024-03-12 13:15 | Outpatient (OUT) | payer OTHER, BC, SELFPAY ==
--- NOTE | 2024-03-12 | XR_ITS ---
The [address] [address] Patient Name: NAN HANNA MRN: [id number] date: 1970 Sex: F Assigned Patient Location: Current Patient Location: Accession/Order Number: [id number] Exam Date: 03/12/2024 13:15 Report Date: 03/14/2024 06:42 At the request of: CYNDI CHEW Procedure: XR foot RT min 3V PROCEDURE: XR foot RT min 3V HISTORY: RIGHT FOOT PAIN COMPARISON: XR foot right 02/05/2024 FINDINGS: BONES:Prior calcaneal osteotomy and repair. Fusion of the talocalcaneal joint via 3 screws; no appreciable hardware fracture or loosening. Bone staple within proximal first metatarsal. SOFT TISSUES:No visible soft tissue swelling. EFFUSION:None visible. OTHER: Negative. XR/XR foot RT min 3V IMPRESSION: 1. Stable surgical changes without is of hardware failure or change in alignment. 2. No appreciable acute abnormality or significant degenerative joint disease. Electronically authenticated by: GENARO MICHELLE Date: 03/14/2024 06:42
--- OUTSIDE RECORDS SUMMARY | 2024-03-12 13:21 | XMS_ITS | CCD ---
Author Organization [facility] Inform ion Partnership [facility] Care Team Providers Care Rehab Nurse Name Role Phone Salima Gilman Unavailable Unavailable Kalina Salima A Unavailable UnavailChristian Kessler Unavailable Unavailable Salima Gilman A Unavailable UnavailPriscilla Rose Unavailable Unavailable Maday Schmitz Unavailable Unavailable Salima Gilman Unavailable Unava ilable Celi Barrett Unavailable Unavailable Priscilla Leahy Unavailable Unavailable Simone Coulter DO Unavailable Unavailable Luna Zacarias PA-C Unavailable Unavailable Salima Gilman MD Unavailable Unavailab andree Schmitz SEPARATOR TENDER-DEBT MANAGEMENT COUNSELOR Maday Unavailable Unavaila ble Salima Gilman A Unavailable UnavailCeli Kang Unavailable Unavailable Priscilla Leahy Unavailable Unavailable Celi Barrett Unavailable Unavailable Priscilla Leahy Unavailable Unavailable Salima Gilman A Unavailable [phone] Unavailable Unavailable SALIMA GILMAN Primary Care Physician [phone] Kayla Dent Primary Care Physician CAMPBELL HERNANDEZ [...] U navailable Kamryn, MsFaby Winn Attending Unavailable Kalina, Dr. Salima Myles Primary Care U navailable Kamryn, Ms. Barbara Winn Attending Unavailable Olena, Dr. Kayla Hassan Primary Care Unavailab Federico French Attending Unavailable Skip Kelly Attending Unavailable Skip Kelly Admitting Unavailable Olena, Dr. Kayla Hassan Referring Unavailab andree Dent, Dr. Kayla Hassan Primary Care Unavailab MD FEDERICO French Referring Unavailabl e MECCA, MD FEDERICO MANSFIELD [...] Kalina, Dr. Salima [facility], MD FEDERICO MANSFIELD Attending UnavailMD FEDERICO James Referring Unavailprecious Dent, Dr. Kayla Hassan Primary Care Unavailab MD FEDERICO French Attending Unavailabl e MECCA, MD FEDERICO MANSFIELD Referring Unavailprecious Dent, Dr. Kayla Hassan Primary Care Unavailab MD FEDERICO French Attending Unavailabl e MD FEDERICO WING Referring Unavailabl e MECCA, MD FEDERICO MANSFIELD Attending Unavailabl sina Dent, Dr. Kayla Hassan Primary Care Unavailab andree Dent DO, Kayla Hassan Primary Care Provider Olena DIMAS, Kayla Hassan Primary Care Provider JOSELO HINSON Referring Unavaila lisandra DENT, KAYLA HASSAN Primary Care Unavailable Olena DIMAS, Kayla Hassan Primary Care Provider Unav Micah Horner Primary Care Physician Unavail able JUAN LUIS ADAMS Attending Unavailab DEIRDRE Briseno Referring Unavailable JUAN LUIS ADAMS Attending Unavailab le TAVO, [...] Attending Unavailab le TAVO, DEIRDRE Referring Unavailable Cromley, DO Micah Kwong Admitting Unavailable Cromley, DO Micah Kwong Attending Unavailable Atilio Beltran Attending Unavailable Cromley, DO Micah Kwong Attending Unavailable CromleyDO Micah Attending Unavailable HIGHLANDERCYNDI Attending Unavailable HIGHLCYNDI DIAZ Referring Unavailable HIGHLANDER, CYNDI Luna Admitting Unavailable HIGHLCYNDI DIAZ Attending Unavailable HIGHLCYNDI DIAZ Referring Unavailable CromlMicah otoole Admitting Unavailable Micah Diaz Attending Unavailable RanimlMicah otoole Referring Unavailable Atilio Beltran Attending Unavailable Micah Diaz Attending Unavailable HIGHLANDERCYNDI Referring Unavailable NO, PCP Primary Care Unavailable EVIE AGUDELO Attending Unavailable KAYLA DENT Primary Care Unavailable FEDERICO WING Attending Unavailable EVIE AGUDELO Referring Unavailable KAYLA DENT Primary Care Unavailable Allergies Allergy Classification Reported Allergen(s) Allergy Type Date of Onset Reaction(s) Facility Fish (7 sources) shellfish, unspecified Food Allergy [facility] Phone: (20 sources) shellfish, unspecified; Translations: [shellfish] food allergy Hives, Angioedema, Weal (disorder) [facility] (1 source) Shellfish Drug allergy (disorder) 3 [facility] Rep[facility] (8 sources) Shellfish; Translations: [shellfish] Drug allergy 3 Weal (disorder), Angioedema, Hives [facility] (1 source) Shellfish Facial Swelling, Hives [facility] (2 sources) SHELLFISH CONTAINING PRODUCTS; Translations: [SHELLFISH CONTAINING PRODUCTS] Propensity to adverse reactions to food (disorder) 3 [facility] Medications Current Medications Medication Drug Class(es) Dates Sig (Normalized) Sig (Original) aspirin 81 mg delayed release oral tablet (20 sources) Platelet Aggregation Inhibitor, Nonsteroidal Anti-inflammatory Drug Start: 07-12-2022 take 1 tablet by mouth once daily aspirin 81 mg Oral EC Tab 81 mg = 1 tab(s), Oral, Daily, # 30 tab(s), Refills(s) 3, Pharmacy: [id number], 152, cm, 09/23/22 22:25:00 EDT, Height/Length Dosing, 86.5, kg, 09/23/22 22:25:00 EDT, Weight Dosing Start Date: 12/24/22 Status: Ordered Aspirin Low Dose ; 81 orally once a day Quantity: 0 Refills: 0 Ordered: 22-Aug-2022 Bago Olga Generic Substitution Allowed B Complex 100 (2 sources) Start: 01-18-2024 B Complex 100 Refill(s) 0 Start Date: 01/18/24 Status: Ordered Zyrtec (20 sources) Histamine-1 Receptor Antagonist Start: 01-18-2024 Zyrtec Refills(s) 0 Start Date: 01/18/24 Status: Ordered take 1 capsule by mo ut once daily at bedtime cetirizine (ZyrTEC) 10 [...] Allowed flecainide acetate 100 mg oral tablet (15 sources) Antiarrhythmic Start: 2023 take 1 tablet [...] script please itraconazole 65 mg oral capsule (2 sources) Azole Antifungal Start: 01-18-2024 take 1 capsule by mouth twice daily itraconazole 65 mg oral capsule 1 cap, Oral, BID, Refills(s) 0 Start Date: 01/18/24 Status: Ordered lysine 1000 mg oral tablet (20 sources) take 1 tablet by mouth once daily lysine 1,000 mg tablet Take 1 tablet (1,000 mg) by mouth once daily. 0 Active magnesium oxide 400 mg oral tablet (18 sources) Start: 01-18-2024 magnesium oxid e 400 mg Tab 400 mg = 1 tab(s), Oral, Refills(s) 0 Start Date: 01/18/24 Status: Ordered Start: 08-25-2022 take 1 tablet by sydni once daily magnesium oxide 400 mg oral tablet ; 1 tab(s) orally once a day Quantity: 0 Refills: 0 Ordered: 25-Aug-2022 Kayla Shaw Start: 25-Aug-2022 Generic Substitution Allowed Start: 06-23-2021 take 2 tablets by [facility] twice daily Magnesium Oxide 400 MG Oral Tablet 2 tablets twice a day Quantity: 90 Refills: 3 Ordered: 12-Jul-2021 Samara Roe MD Start : 23-Jun-2021 Active Start: 05-11-2021 take 1 tablet by [facility] twice daily Magnesium Oxide 400 MG Oral Tablet TAKE 1 TABLET TWICE DAILY. Quantity: 180 Refills: 3 Ordered: 11-May-2021 Samara Roe MD Start : 11-May-2021 Active new order take 1 capsule by [facility] once daily magnesium oxide 400 mg magnesium [...] Daily, # 30 tab(s), Refills(s) 3, Pharmacy: [id number], 152, cm, 09/23/22 22:25:00 EDT, Height/Length Dosing, 86.5, kg, 09/23/22 22:25:00 EDT, Weight Dosing Start Date: 03/12/23 Status: Ordered Start: 06-23-2021 take 1 tablet by sydni th once daily metoprolol 25 mg ER Tab 25 mg = 1 tab(s), Oral, Daily, # 30 tab(s), Refills(s) 3, Pharmacy: [id number], 152, cm, 07/12/22 15:54:00 EST, Height/Length Dosing, 83.4, kg, 07/12/22 15:54:00 EST, Weight Dosing Start Date: 07/12/22 Status: Ordered Multi Vitamin+ (2 sources) Start: 01-18-2024 Multi Vitamin+ Refill(s) 0 Start [...] mouth once daily. 0 Active Vitamin D (2 sources) Start: 01-18-2024 Vitamin D Refills(s) 0 Start [...] directed per pharmacy Quantity: 1 Refills: 1 JunMaday Matson Start : 26-Apr-2020 Active 21 Tablet Pack Multivitamin TABS (20 sources) Multivitamin TAB S TAKE 1 TABLET DAILY. Quantity: 0 Refills: 0 Ordered: 11-May-2021 DO Active pimecrolimus 10 mg/ml topical cream (2 sources) Calcineurin Inhibitor Immunosuppressant Start: 01-19-2020 Pimecrolimus 1 % External Cream APPLY A THIN LAYER TO AFFECTED AREA(S) AND RUB IN WELL TWICE DAILY. Quantity: 1 Refills: 0 Armond MCMAHON, Priscilla Reese Start : 19-Jan-2020 Active 30 GM Tube [...] Start: 08-27-2017 take 1 capsule by mo ut every twenty-four hours Tolterodine Tartrate ER 4 [...] 08-22-2022 Episodic Diseases of mouth; excluding dental (3 sources) Glossopyrosis ; Translations: [Glossodynia] Onset: 4 Episodic Esophageal disorders (6 sources) Gastroesophageal reflux disease without esophagitis; Translations: [...] period; Translations: [Missed menses] Chronic Mood disorders (11 sources) Mood swings; Translations: [Mild recurrent major [...] Episodic Comment on above: CHEST PAIN Osteoarthritis (3 sources) 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; Translations: [Unspecified osteoarthritis, unspecified site] Onset: 3 01-16-2024 Chronic Comment on above: Outside Source Comme nt: Comment on above: w/ Varus foot deformity, displaced fx of calcaneus Other aftercare (7 sources) Drug therapy finding; Translations: [Long-term (current) use of other medications] Episodic Other aftercare (3 sources) Taking high risk medication; Translations: [Other correction (current) drug therapy] Onset: 3 04-16-2023 Episodic Other and unspecified benign neoplasm (20 sources) Melanocytic nevus; Translations: [Benign neoplasm of skin, site unspecified] Onset: 3 04-10-2023 Episodic Other congenital anomalies (2 sources) 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 Other connective tissue disease (3 sources) Hand pain; Translations: [Pain in limb] Episodic Other connective tissue disease (2 sources) Disorder of muscle; Translations: [Other specified disorders of muscle] Onset: 4 Episodic Other connective tissue disease (5 sources) Pelvic floor dysfunction 2023 Episodic Other diseases of bladder and urethra (1 source) Detrusor overactivity; Translations: [Overactive bladder] Onset: 4 Chronic Other diseases of bladder and urethra (5 sources) Overactive bladder 2023 Chronic Other female [...] 3 04-10-2023 Episodic Other nervous system disorders (5 sources) Intolerant of heat 2023 Episodic Other non-traumatic joint disorders (1 source) Ankle joint pain; Translations: [Pain in right ankle and joints of right foot] Episodic Other non-traumatic joint disorders (1 source) Other instability, unspecified joint; Translations: [Other instability, unspecified joint] Onset: 4 Episodic Other nutritional; endocrine; and metabolic disorders [...] Onset: 3 04-10-2023 Episodic Comment on above: bryan 07/2019-neg [...] tract] Onset: 3 Episodic Residual codes; unclassified (1 source) Past history of procedure; Translations: [Other specified postprocedural states] Onset: 4 Episodic Residual codes; unclassified (1 source) Other general symptoms and signs; Translations: [Other general symptoms and signs] Onset: 4 Episodic Residual codes; unclassified (2 sources) Menopause present 01-16-2024 Episodic Screening and history [...] [facility] 3/9 08-24-2022 Comment on above: [facility] 08/24 Unclassified (2 sources) AND-[facility] 08-25-2022 Comment [...] 04-10-2023 Episodic Other aftercare (2 sources) 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; Translations: [Other correction (current) drug therapy] Onset: 04-13-2023 Episodic Other female genital disorders (1 source) Vaginal discharge; Translations: [Vaginal discharge] Episodic Other gastrointestinal disorders (2 sources) Heartburn Onset: 05-15-2023 01-16-2024 Episodic Residual codes; unclassified (2 sources) Other specified health status; Translations: [Other specified health status] Onset: 07-27-2023 Episodic Unclassified (1 source) Cancer cervix screening [...] Test Name Value Interpretation Reference Range Facility CT FOOT RIGHT WO CONTRASTon 02-15-2024 CT FOOT RIGHT WO CONTRAST EXAMINATION: CT OF THE RIGHT FOOT WITHOUT CONTRAST 02/15/2024 1:22 pm TECHNIQUE: CT of the right foot was performed without the administration of intravenous contrast. Multiplanar reformatted images are provided for review. Automated exposure control, iterative reconstruction, and/or weight based adjustment of the mA/kV was utilized to reduce the radiation dose to as low as reasonably achievable. COMPARISON: None. HISTORY ORDERING SYSTEM PROVIDED HISTORY: Instability of joint, Osteoarthritis, unspecified osteoarthritis type, unspecified site TECHNOLOGIST PROVIDED HISTORY: What reading provider will be dictating this exam?->CRC FINDINGS: A screw is seen in the mid aspect of the talocalcaneal joint, traversing the posterior aspect of the sinus tarsi. 2 more posterior screws traverse the posterior facet of the subtalar articulation, which demonstrates undulation and chronic irregularity, with subchondral sclerosis and small osteophytes. No cystic changes observed. Slight osseous protuberance dorsal aspect of the new mid navicular. Mild medial tibiotalar osteoarthritic narrowing is observed. A large ghost tract is seen in the distal tibia. A clamp is seen at the dorsal aspect of the proximal 1st metatarsal. Tarsometatarsal alignment is normal. 1Valgus alignment of the 1st through 4th metatarsophalangeal articulations are seen, without significant secondary arthritic change. Somewhat advanced lateral soft tissue swelling is seen. IMPRESSION: 1. Postsurgical changes in the talocalcaneal joint, as described above. Undulation and chronic irregularity of the posterior facet of the subtalar articulation, with subchondral sclerosis and small osteophytes. 2. Mild medial tibiotalar osteoarthritic narrowing. 3. Somewhat advanced lateral soft tissue swelling, at the level of the ankle. Interpreted by: Rene Stearns MD Signed by: Rene Stearns MD 02/19/24 Final result Normal [facility] MA Mamm Screen w/CAD if perf and 3D Bilon 02-09-2024 MA Mamm Screen w/CAD if perf and 3D Ismael Exam Date/Time: 02/08/2024 14:35 EDT Reason for Exam: Z12.31;Screening Report IMPRESSION: BIRADS 1 NEGATIVE, NORMAL INTERVAL FOLLOW-UP Follow-up: 12 MONTH RECALL Density: Category A - Almost entirely fatty. Vascular calcifications: Absent. EXAM: MA Mamm Screen w/CAD if perf and 3D Ismael DATE: 02/08/2024 2:20 PM CLINICAL HISTORY: Screening, Z12.31. COMPARISONS: 06/27/2022, 12/03/2017, and 06/01/2015. TECHNIQUE: Routine full-field digital mammograms and 3D breast tomosynthesis were obtained of both breasts. FINDINGS: There are no developing densities, suspicious microcalcifications, or areas of architectural distortion identified on the current study. No significant changes are identified from the prior studies, given differences in technique and positioning. Dense Breast: No. CAD analysis was performed and used in the interpretation. Board Certified Radiologists. Accredited by the ACR and FDA. MAMMOGRAPHY IS VERY IMPORTANT TO YOUR HEALTH. THE CURRENT [employer] GUIDELINES RECOMMENDS ANNUAL MAMMOGRAPHY BEGINNING AT AGE 40. THIS FACILITY UTILIZES A REMINDER SYSTEM TO ENSURE ALL PATIENTS RECEIVE REMINDER NOTIFICATIONS AT THE APPROPRIATE TIME BASED ON THE RECOMMENDATIONS OF THIS EXAM. Report Ordering Provider: Micah Daiz FINAL REPORT Dictated: 02/09/2024 10:10 am Abraham Murray MD Signed (Electronic Signature): 02/09/2024 10:10 am Signed by: Abraham Murray MD Transcribed by: BENITA Technologist: [facility] Assessment: BI-RADS Category 1-Negative Recommendation: Normal interval follow-up Normal [facility] Ambulatory Visit Summaryon 0 01-18-2024 Ambulatory Visit [...] fusion, Carpal tunnel, section, Cholecystectomy, Tubal ligation, [place] tooth. Discharge Vitals Heart Rate (Peripheral) 61 Blood Pressure 118/66 Height 156 cm Height 61 in Weight 90 kg Weight 198 lb BMI 36.98 What to do next Scheduled Follow-Up Appointments Sunday 9:20 AM EDT With: Micah Diaz DO Where: [facility] [address] [place] [address]- You Need to Schedule the Following Appointments Follow Up with Micah Diaz DO, JAVID, PED When: Within 3 months Comments: 20 min slot To go instructions: If you decide you want to start bupropion, let me know and I'll submit 150mg XL Stop pop for a week, if that doesn't help your symptoms, I recommend that you see a ENT to discuss -------- *When you see providers outside of [facility], please request that they send office [...] months Where: [address] [place] [address] [id number] Medications What How Much When Instructions Unchanged [...] for choosing us for your care. Normal [facility] Family Medicine Office/Clini c Noteon 01-18-2024 [...] in April. - Patient was [place] [facility] [place] since last visit for chest pain radiating to neck/jaw/shoulder. Cardiac work up completed, which was negative. Advised to f/u with Cardiology. Labs: completed 10/12/23 [place]: Cologuard ordered today - Faxed to [facility]: ordered at last visit - Patient will call and schedule Pap: per pt about 3 years ago, WNL History of Present Illness 53 Years old Female here for 3 mo f/u cardiac review HPI staff / Chief Complaint confirmed with the patient Social: The patient is ; [place] since November 05, 2021 The patient is currently working; [employer] for 1 years The patient has 3 [...] of Providers: Cardiology - Dr. Wing - [facility] doesn't follow with [employer] To do list: _ HPI staff / [...] last note: From: Micah Diaz DO To: [facility] - Clinical; Sent: 10/13/2023 10:23:39 EDT Subject: [...] that pa (more content not included)... Normal [facility] Comment on above: Result Comment: Elec tronically Signed By: Micah Diaz DO\.br\Date and Time Signed: 01/18/24 19:59 EDT XR [...] in mGy = na DAP = na [facility] BMPon 11-12-2023 Anion gap [Moles/Vol] 12 mmol/L Normal 6-16 [facility] Comment on above: Performed By: #### 2 [id number] #### [facility] [address] [place] [address] Calcium [Mass/Vol] 9.0 mg/dL Normal 8.9-11.1 [facility] Comment on above: Performed By: #### 2 [id number] #### [facility] [address] [place] [address] Chloride [Moles/Vol] 104 mmol/L Normal 101-111 [facility] Comment on above: Performed By: #### 2 [id number] #### [facility] [address] [place] [address] CO2 [Moles/Vol] 27 mmol/L Normal 21-31 [facility] Comment on above: Performed By: #### 2 [id number] #### [facility] [address] [place] [address] Creatinine [Mass/Vol] 0.9 mg/dL Normal 0.5-1.3 [facility] Comment on above: Performed By: #### 2 [id number] #### [facility] [address] [place] [address] Glucose [Mass/Vol] 100 mg/dL Normal 55-199 [facility] Comment on above: Performed By: #### 2 [id number] #### [facility] [address] [place] [address] Potassium [Moles/Vol] 4.0 mmol/L Normal 3.5-5.3 [facility] Comment on above: Performed By: #### 2 [id number] #### [facility] [address] [place] [address] Sodium [Moles/Vol] 139 mmol/L Normal 135-145 [facility] Comment on above: Performed By: #### 2 [id number] #### [facility] [address] [place] [address] Urea nitrogen [Mass/Vol] 21 mg/dL Normal 5-21 [facility] Comment on above: Performed By: #### 2 [id number] #### [facility] [address] [place] [address] Urea nitrogen/Creatinine [Mass ratio] 23 No Units High 10-20 [facility] Comment on above: Performed By: #### 2 [id number] #### [facility] [address] [place] [address] CBC w/ Auto Diffon 4 Basophils/100 WBC (Bld) 0.5 % Normal 0.0-2.0 [facility] Comment on above: Performed By: #### 2 [id number] #### [facility] [address] [place] [address] Basophils/Leukocytes Auto (Bld) [Pure # fraction] 0.1 E9/L Normal 0.0-0.2 [facility] Comment on above: Performed By: #### 2 [id number] #### [facility] [address] [place] [address] Eosinophils (Bld) [#/Vol] 0.2 E9/L Normal 0.0-0.5 [facility] Comment on above: Performed By: #### 2 [id number] #### [facility] [address] [place] [address] Eosinophils/100 WBC (Bld) 2.4 % Normal 0.0-8.0 [facility] Comment on above: Performed By: #### 2 976013 #### [facility] [address] [place] [address] Erythrocyte distribution width (RBC) [Ratio] 13.5 % Normal 10.9-14.2 [facility] Comment on above: Performed By: #### 2 [id number] #### [facility] [address] [place] [address] Hematocrit (Bld) [Volume fraction] 38.7 % Normal 34.0-46.0 [facility] Comment on above: Performed By: #### 2 [id number] #### [facility] [address] [place] [address] Hemoglobin (Bld) [Mass/Vol] 13.3 g/dL Normal 12.0-16.0 [facility] Comment on above: Performed By: #### 2 326408 #### [facility] [address] [place] [address] Lymphocytes (Bld) [#/Vol] 2.8 E9/L Normal 1.0-4.0 [facility] Comment on above: Performed By: #### 2 667758 #### [facility] [address] [place] [address] Lymphocytes/100 WBC (Bld) 28.5 % Normal 14.0-50.0 [facility] Comment on above: Performed By: #### 2 [id number] #### [facility] [address] [place] [address] MCH (RBC) [Entitic mass] 31.7 pg Normal 27.0-34.0 [facility] Comment on above: Performed By: #### 2 [id number] #### [facility] [address] [place] [address] MCHC (RBC) [Mass/Vol] 34.3 g/dL Normal 31.4-36.0 [facility] Comment on above: Performed By: #### 2 [id number] #### [facility] [address] [place] [address] MCV (RBC) [Entitic vol] 92.4 fL Normal 80.0-100.0 [facility] Comment on above: Performed By: #### 2 329233 #### [facility] [address] [place] [address] Monocytes (Bld) [#/Vol] 0.8 E9/L Normal 0.2-1.0 [facility] Comment on above: Performed By: #### 2 [id number] #### [facility] [address] [place] [address] Neutrophils (Bld) [#/Vol] 5.9 E9/L Normal 2.0-7.5 [facility] Comment on above: Performed By: #### 2 [id number] #### [facility] [address] [place] [address] Neutrophils/100 WBC (Bld) 60.4 % Normal 36.0-75.0 [facility] Comment on above: Performed By: #### 2 [id number] #### [facility] [address] [place] [address] Platelet mean volume (Bld) [Entitic vol] 8.8 fL Normal 6.4-10.8 [facility] Comment on above: Performed By: #### 2 596205 #### [facility] [address] [place] [address] Platelets (Bld) [#/Vol] 237.0 E9/L Normal 150.0-500.0 [facility] Comment on above: Performed By: #### 2 133359 #### [facility] [address] [place] [address] RBC (Bld) [#/Vol] 4.2 E12/L Low 4.3-5.9 [facility] Comment on above: Performed By: #### 2 [id number] #### [facility] [address] [place] [address] WBC corrected for nucl RBC Auto (Bld) [#/Vol] 9.7 E9/L Normal 4.0-11.0 [facility] Comment on above: Performed By: #### 2 [id number] #### [facility] [address] [place] [address] CHEMISTRYOrdered By: SYSTEM SYSTEM on 11-12-2023 Troponin [...] Sensitivity Troponin I Instructions For Use, Lorenzo Mears, January 2018) Albumin [Mass/Vol] 4.2 g/dL Normal [...] Instructions For Use, Lorenzo Boo, January 2018) Urea nitrogen [Mass/Vol] 21 mg/dL Normal 5 - 21 mg/dL Remisol Chem Urea nitrogen/Creatinine [Mass ratio] 23 mg/mg High 10 - 20 [facility] COAGULATIONOrdered By: Kiana Bruno on 11-12-2023 aPTT Coag (PPP) [Time] 37.2 s High 25.1 - 36.5 second(s) [facility] Comment on above: Interpretive Data: [...] the same coagulation reagent and instrumentation as [facility]. Currently there are no coagulation studies available worldwide for children to 14 days, and no normal ranges. Heparin therapeutic range (represented by Anti-Factor Xa activity of 0.2 - 0.4 U/mL) corresponds to PTT of 56.6 - 109.0 sec. INR Coag (PPP) [Relative time] 0.99 {INR} Invalid Interpretation Code [facility] Comment on above: Interpretive Data: I NR results are specifically intended to assess patients stabilized on long-term Anticoagulation therapy suggested INR s Less Intensive Anticoagulation 2.0 3.0 Conventional Range 3.0 4.5 PT Coag (PPP) [Time] 11.1 s Normal 9.4 - 1 2.5 second(s) [facility] Coag Comment on above: Interpretive Data: [...] the same coagulation reagent and instrumentation [place] [facility] Currently there are no coagulation studies available worldwide for children to 14 days, and no normal ranges. Consent for Treatmenton 10-17 Consent for Treatment [id number]#1.00TIFF Normal [facility] Discharge Instructionson Discharge Instructions [id number]#1.00TIFF Normal [facility] ED Clinical Summaryon 2023 ED Clinical Summary (Inserted Image. [place] ble to display) [place] [id number] ED Clinical Summary Person Information Name: RASHEEDA HANNA Danielle/[facility] Age: 53 Years : 1970 Sex: Female Language: Tristanian PCP: Micah Diaz DO Marital Status: Visit [...] 11/12/2023 23:47:15 11/12/2023 23:47:15 11/12/2023 23:47:15 ADDRESS: [address] [place] [id number] [facility] DOC NOTES: MEDICAL INFORMATION: Prescriptions Given: Medications [...] In 3 days 11/15/2023 With: Address: When: Miach Diaz [address] [facility] [address] [place], [place] [id number] In 3 days 11/15/2023 Comments: Call the [...] or worsening symptoms. DIAGNOSIS: Chest pain Normal [facility] ED Note-Physicianon 11-12-19 ED Note-Physician Basic Information Time Seen: Devin Atilio Mary AnnFaby 11/12/2023 20:39 Chief Complaint complains of mid [...] precautions were discussed. She will call her glass mechanic to follow-up. All questions were answered. Patient was discharged home. Assessment/Plan Chest pain (R07.9: Chest pain, unspecified) Orders: acetaminophen, 650 mg = 2 tab(s), Tab, Oral, Once, Stop date (more content not included)... Normal [facility] Comment on above: Result Comment: Elec tronically Signed By: Atilio Beltran DO\.ayla\Date and Time Signed: 11/12/23 23:34 EDT ED [...] these instructions at home: Medicines ? Take kdkf-sou-izltuxd and prescription medicines only as told by [...] by your (more content not included)... Normal [facility] ED Patient Summaryon 024 ED Patient Summary (Inserted Image. [place] ble to display) [address] [address] Patient Discharge Instructions Person Information Name: RASHEEDA HANNA Age: 53 Years Arrival Date: 11/12/2023 20:33:38 Discharge Diagnosis: Chest pain Primary Care Physician: Micah Diaz DO Provider Information Primary Provider: Atilio Beltran DO Advanced Guide Excursion:Dora The exam and treatment you received in the Emergency Department were for an urgent problem and are not intended as complete care. It is important that you follow up with a doctor, nurse practitioner, or physician?s operational assistant for ongoing care. If your symptoms [...] Micah Diaz [address] [place], [place] [id number] In 3 days 11/15/2023 Comments: Call the [...] opioids can be used to help relieve mjtgvtfc-fw-uoppov pain and are often prescribed following a [...] pain yissel (more content not included)... Normal [facility] HEMATOLOGYOrdered By: SYSTEM SYSTEM on 11-12-2023 [...] 11-12-2023 Albumin [Mass/Vol] 4.2 g/dL Normal 3.3-5.0 [facility] Comment on above: Performed By: #### 2 065340 #### [facility] [address] [place] [address] Albumin/Globulin (S) [Mass conc ratio] 1.3 Normal 1.1-2.2 [facility] Comment on above: Performed By: #### 2 377152 #### [facility] [address] [place] [address] ALP [Catalytic activity/Vol] 81 Int._Unit/L Normal 21-98 [facility] Comment on above: Performed By: #### 2 278018 #### [facility] [address] [place] [address] ALT No additional P-5'-P [Catalytic activity/Vol] 26 Int._Unit/L Normal 6-46 [facility] Comment on above: Performed By: #### 2 956996 #### [facility] [address] [place] [address] AST [Catalytic activity/Vol] 20 Int._Unit/L Normal 5-43 [facility] Comment on above: Performed By: #### 2 554082 #### [facility] [address] [place] [address] Bilirubin [Mass/Vol] 0.3 mg/dL Normal 0.0-1.1 [facility] Comment on above: Performed By: #### 2 890977 #### [facility] [address] [place] [address] Bilirubin.direct [Mass/Vol] 0.1 mg/dL Normal 0.0-0.4 [facility] Comment on above: Performed By: #### 2 597447 #### [facility] [address] [place] [address] Bilirubin.indirect [Mass or moles/Vol] 0.2 mg/dL Normal 0.1-0.9 [facility] Comment on above: Performed By: #### 2 257505 #### [facility] [address] [place] [address] Globulin (S) [Mass/Vol] 3.2 g/dL Normal 1.4-4.0 [facility] Comment on above: Performed By: #### 2 157731 #### [facility] [address] [place] [address] Protein [Mass/Vol] 7.4 g/dL Normal 6.0-7.8 [facility] Comment on above: Performed By: #### 2 165277 #### [facility] [address] [place] [address] Lipase Levelon 11-12-2023 Lipase [Catalytic activity/Vol] 23 U/L Normal 13-58 [facility] Comment on above: Performed By: #### 2 482850 #### [facility] [address] [place] [address] Monitor Recordon 11-12-2023 Monitor Record [id number]#1.00TIFF Normal [facility] Monitor Record [id number]#1.00TIFF Normal [facility] PT & PTTon 11-12-2023 aPTT Coag (PPP) [Time] 37.2 second(s) High 25.1-36.5 [facility] Comment on above: Result Comment: Para meter 15 days - 4 weeks 1 - 5 months 6 - 11 months 1 - 5 years 6 - 10 years 11 - 17 years PTT Mean: 35.4 (27.6-45.6) Mean: 33.5 (24.8-40.7) Mean: 32.4 (25.1-40.7) Mean: 31.6 (24.0-39.2) Mean: 31.6 (26.9-38.7) Mean: 31.0 (24.6-38.4) Pediatric Reference ranges were obtained from a study by linda Saenz prepared from 1437 samples obtained at 7 different centers using the same coagulation reagent and instrumentation as [facility] Currently there are no coagulation studies available worldwide for children to 14 days, and no normal ranges. Heparin therapeutic range (represented by Anti-Factor Xa activity of 0.2 - 0.4 U/mL) corresponds to PTT of 56.6 - 109.0 sec. Performed By: #### 1 [id number] #### [facility] [address] [place] [address] INR Coag (PPP) [Relative time] 0.99 {INR} Invalid Interpretation Code [facility] Comment on above: Result Comment: INR results are specifically intended to assess patients stabilized on long-term Anticoagulation therapy suggested INR?s ?Less Intensive Anticoagulation? 2.0 ? 3.0 Conventional Range 3.0 ? 4.5 Performed By: #### 1 [id number] #### [facility] [address] [place] [address] PT Coag (PPP) [Time] 11.1 second(s) Normal 9.4-12.5 [facility] Comment on above: Result Comment: 15 [...] were obtained from a study by Eddi Davenport, et al. prepared from 1437 samples obtained at 7 different centers using the same coagulation reagent and instrumentation as [facility] Currently there are no coagulation studies available worldwide for children to 14 days, and no normal ranges. Performed By: #### 1 [id number] #### [facility] [address] [place] [address] Troponin 0 Hr.on 11-12-2023 Troponin 2.80 pg/mL Low 10.10-27.10 [facility] Comment on above: Result Comment: The 95% CI (Confidence Interval) PPV (Positive Predictive Value) for myocardial infarction in females is 38 pg/mL, in males 51 pg/mL. The results should be used in conjunction with clinical conditions of myocardial infarction. (Access High Sensitivity Troponin I Instructions For Use, [place], January 2018) Performed By: #### 1 [id number] #### [facility] [address] [place] [address] Troponin 1 Hr.on 11-12-2023 Troponin 3.50 pg/mL Low 10.10-27.10 [facility] Comment on above: Result Comment: The 95% CI (Confidence Interval) PPV (Positive Predictive Value) for myocardial infarction in females is 38 pg/mL, in males 51 pg/mL. The results should be used in conjunction with clinical conditions of myocardial infarction. (Access High Sensitivity Troponin I Instructions For Use, [place], January 2018) Performed By: #### 1 1007927 #### [facility] [address] [place] [address] eGFRon 11-12-2023 eGFR 75 mL/min/1.73 m2 Normal >=59 [facility] Comment on above: Order Comment: Order added by Discern Expert. Performed By: #### 1 3371729 #### [facility] [address] [place] [address] CBC w/ Auto Diffon 4 Basophils/100 WBC (Bld) 0.6 % Normal 0.0-2.0 [facility] Comment on above: Performed By: #### 1 3747869, 5830245, 6063171, 0215845, 86653131, 251907891 ####[place] [address] [address] Basophils/Leukocytes Auto (Bld) [Pure # fraction] 0.0 E9/L Normal 0.0-0.2 [facility] Comment on above: Performed By: #### 1 7428661, 5577594, 6535168, 2493482, 58484593, 280598048 ####[address] [address] Eosinophils (Bld) [#/Vol] 0.3 E9/L Normal 0.0-0.5 [facility] Comment on above: Performed By: #### 1 3665132, 9834015, 4957677, 5721569, 55266838, 947104216 ####[address] [address] Eosinophils/100 WBC (Bld) 3.3 % Normal 0.0-8.0 [facility] Comment on above: Performed By: #### 1 3376307, 8213411, 1608022, 7507795, 27857181, 147834975 ####[address] [address] Erythrocyte distribution width (RBC) [Ratio] 13.9 % Normal 10.9-14.2 [facility] Comment on above: Performed By: #### 1 0316335, 4365124, 7485518, 7764796, 13871179, 234593968 ####[place] [address] Hematocrit (Bld) [Volume fraction] 40.7 % Normal 34.0-46.0 [facility] Comment on above: Performed By: #### 1 8555844, 5706879, 9151139, 8662184, 38114312, 912904468 ####[address] [address] Hemoglobin (Bld) [Mass/Vol] 13.5 g/dL Normal 12.0-16.0 [facility] Comment on above: Performed By: #### 1 7708776, 1224326, 2728796, 7587399, 55601324, 352524893 ####[address] [address] Lymphocytes (Bld) [#/Vol] 1.9 E9/L Normal 1.0-4.0 [facility] Comment on above: Performed By: #### 1 2487433, 4507942, 7644267, 0519573, 21975077, 991281627 ####[address] [address] Lymphocytes/100 WBC (Bld) 22.6 % Normal 14.0-50.0 [facility] Comment on above: Performed By: #### 1 3320192, 3661313, 2834711, 0793409, 32915964, 016721057 ####[address] [address] MCH (RBC) [Entitic mass] 30.8 pg Normal 27.0-34.0 [facility] Comment on above: Performed By: #### 1 8093389, 4501321, 3782541, 5553175, 83032727, 636354011 ####[address] [address] MCHC (RBC) [Mass/Vol] 33.3 g/dL Normal 31.4-36.0 [facility] Comment on above: Performed By: #### 1 2162045, 1819113, 5149748, 3257213, 21287658, 680518955 ####[address] [address] MCV (RBC) [Entitic vol] 92.7 fL Normal 80.0-100.0 [facility] Comment on above: Performed By: #### 1 3387324, 7957647, 2990081, 1969574, 49506219, 958351144 ####[address] [address] Monocytes (Bld) [#/Vol] 0.7 E9/L Normal 0.2-1.0 [facility] Comment on above: Performed By: #### 1 9779930, 8589137, 4110044, 7057412, 57058666, 766723517 ####[place] [address] [place] [address] Neutrophils (Bld) [#/Vol] 5.6 E9/L Normal 2.0-7.5 [facility] Comment on above: Performed By: #### 1 8877535, 5217997, 2649170, 9008939, 76081517, 542802140 ####[place] [address] [place] [address] Neutrophils/100 WBC (Bld) 65.6 % Normal 36.0-75.0 [facility] Comment on above: Performed By: #### 1 7995192, 4874775, 3867015, 5862230, 26895927, 535959498 ####[address] [address] Platelet 275.0 E9/L Normal 150.0-500.0 [facility] Comment on above: Performed By: #### 1 5913922, 5562944, 2247419, 2815265, 25185354, 392486639 ####[address] [address] Platelet mean volume (Bld) [Entitic vol] 9.0 fL Normal 6.4-10.8 [facility] Comment on above: Performed By: #### 1 3795916, 3476783, 8252745, 8808044, 76785066, 502219782 ####[place] [address] [place] [address] RBC (Bld) [#/Vol] 4.4 E12/L Normal 4.3-5.9 [facility] Comment on above: Performed By: #### 1 7695439, 2674539, 3971310, 1914878, 27768468, 207181439 ####[place] [address] [place] [address] WBC corrected for nucl RBC Auto (Bld) [#/Vol] 8.5 E9/L Normal 4.0-11.0 [facility] Comment on above: Performed By: #### 1 3742174, 8670730, 8574957, 4177326, 64388518, 914178431 ####[facility] [address] [place] [address] CHEMISTRYOrdered By: SYSTEM SYSTEM on 10-12-2023 Albumin [...] (Bld) [Mass fraction] 5.8 % Normal <=5.9% [facility] ChemAutoSS CMPon 10-12-2023 Albumin [Mass/Vol] 4.1 g/dL Normal 3.3-5.0 [facility] Comment on above: Performed By: #### 1 2048707, 5843725, 9289086, 6926093, 09304309, 530059149 ####[facility] [address] [place] [address] Albumin/Globulin (S) [Mass conc ratio] 2.0 Normal 1.1-2.2 [facility] Comment on above: Performed By: #### 1 5324104, 0813163, 8196246, 1512495, 80084545, 435066332 ####[facility] [address] [place] [address] ALP [Catalytic activity/Vol] 75 Int._Unit/L Normal 21-98 [facility] Comment on above: Performed By: #### 1 6448640, 9897400, 7534822, 6588740, 09046879, 779052997 ####[facility] [address] [place] [address] ALT No additional P-5'-P [Catalytic activity/Vol] 32 Int._Unit/L Normal 6-46 [facility] Comment on above: Performed By: #### 1 9026405, 3162198, 0391769, 8936337, 19071155, 962116294 ####[facility] [address] [place] [address] Anion gap [Moles/Vol] 10 mmol/L Normal 6-16 [facility] Comment on above: Performed By: #### 1 0844937, 8262050, 2604001, 6451608, 61122648, 972498341 ####[place] [address] [place] [address] AST [Catalytic activity/Vol] 22 Int._Unit/L Normal 5-43 [facility] Comment on above: Performed By: #### 1 3783344, 3823674, 1075175, 8006726, 47372033, 125464276 ####[facility] [address] [place] [address] Bilirubin [Mass/Vol] 0.4 mg/dL Normal 0.0-1.1 [facility] Comment on above: Performed By: #### 1 9541361, 2697326, 3048280, 4829750, 44927486, 298411540 ####[facility] [address] [place] [address] Calcium [Mass/Vol] 9.0 mg/dL Normal 8.9-11.1 [facility] Comment on above: Performed By: #### 1 7345839, 0011402, 2721211, 6101386, 05924949, 250870314 ####[facility] [address] [place] [address] Chloride [Moles/Vol] 104 mmol/L Normal 101-111 [facility] Comment on above: Performed By: #### 1 8386472, 9008464, 7750075, 0372137, 50721373, 405882627 ####[facility] [address] [place] [address] CO2 [Moles/Vol] 29 mmol/L Normal 21-31 [facility] Comment on above: Performed By: #### 1 9017255, 7310965, 6738577, 1544551, 92183216, 499301500 ####[facility] [address] [place] [address] Creatinine [Mass/Vol] 0.8 mg/dL Normal 0.5-1.3 [facility] Comment on above: Performed By: #### 1 1236840, 3494181, 3318730, 8695548, 83332716, 572549218 ####[facility] [address] [place] [address] Globulin (S) [Mass/Vol] 2.0 g/dL Normal 1.4-4.0 [facility] Comment on above: Performed By: #### 1 9464314, 2302409, 2122343, 0951243, 00365192, 346404810 ####[facility] [address] [place] [address] Glucose [Mass/Vol] 125 mg/dL Normal 55-199 [facility] Comment on above: Performed By: #### 1 7660549, 2086410, 5275304, 4551991, 60406743, 330817849 ####[facility] [address] [place] [address] Potassium [Moles/Vol] 4.6 mmol/L Normal 3.5-5.3 [facility] Comment on above: Performed By: #### 1 2597637, 9864004, 8073044, 7629787, 53381138, 525253407 ####[facility] [address] [place] [address] Protein [Mass/Vol] 6.1 g/dL Normal 6.0-7.8 [facility] Comment on above: Performed By: #### 1 5664089, 4090973, 0919824, 5970430, 33146203, 563061835 ####[facility] [address] [place] [address] Sodium [Moles/Vol] 138 mmol/L Normal 135-145 [facility] Comment on above: Performed By: #### 1 0856575, 3701034, 2325201, 4021286, 56406932, 026948150 ####[facility] [address] [place] [address] Urea nitrogen [Mass/Vol] 22 mg/dL High 5-21 [facility] Comment on above: Performed By: #### 1 3418249, 6614812, 2977236, 7961983, 23162501, 890616153 ####[facility] [address] [place] [address] Urea nitrogen/Creatinine [Mass ratio] 28 No Units High 10-20 [facility] Comment on above: Performed By: #### 1 8578720, 1292929, 3923035, 2427530, 94954646, 015526219 ####[facility] [address] [place] [address] Consent for Treatmenton 09-17 Consent for Treatment [id number]#1.00TIFF Normal [facility] HEMATOLOGYOrdered By: SYSTEM SYSTEM on 10-12-2023 [...] Normal 4.0 - 11.0 E9/L Remisol Heme IqwO2ixl 10-12-2023 HbA1c (Bld) [Mass fraction] 5.8 % Normal <=5.9 [facility] Comment on above: Performed By: #### 1 0810261, 3578412, 2790646, 8931347, 96120999, 868792026 ####[facility] [address] [place] [address] Lipid Panelon 10-12-2023 Cholesterol [Mass/Vol] 209 mg/dL High 120-200 [facility] Comment on above: Performed By: #### 1 8776892, 6652695, 0423913, 0592004, 45831409, 237581554 ####[facility] [address] [place] [address] Cholesterol in HDL [Mass/Vol] 54 mg/dL Invalid Interpretation Code [facility] Comment on above: Result Comment: '>= 60 LOW RISK' '<= 40 HIGH RISK' Performed By: #### 1 2972784, 8820568, 6978193, 0495628, 65639042, 286760645 ####[facility] [address] [place] [address] Cholesterol in LDL [Mass/Vol] 132 mg/dL High <=129 [facility] Comment on above: Performed By: #### 1 0300567, 0105782, 6930333, 3363109, 99653242, 216164668 ####[facility] [address] [place] [address] Cholesterol in VLDL [Mass/Vol] 24 mg/dL Normal 7-40 [facility] Comment on above: Performed By: #### 1 7485206, 1852798, 1676024, 0466596, 18209778, 124853298 ####[facility] [address] [place] [address] Triglyceride [Mass/Vol] 118 mg/dL Normal <=149 [facility] Comment on above: Performed By: #### 1 8211862, 1826014, 7423870, 0221069, 50482057, 708688268 ####[facility] [address] [place] [address] TSH With T4fr Reflexon 10-11 TSH Qn 1.73 m[IU]/L Normal 0.34-5.60 [facility] Comment on above: Performed By: #### 1 2318871, 3030787, 2541008, 3578230, 65590880, 269589414 ####[facility] [address] [place] [address] eGFRon 10-12-2023 eGFR 87 mL/min/1.73 m2 Normal >=59 [facility] Comment on above: Order Comment: Order added by Discern Expert. Performed By: #### 1 3328354, 2791982, 5825762, 4488310, 20357777, 691526632 ####[facility] [address] [place] [address] Ambulatory Visit Summaryon 0 10-03-2023 Ambulatory Visit [...] fusion, Carpal tunnel, section, Cholecystectomy, Tubal ligation, Gr[place] tooth. Discharge Vitals Heart Rate (Peripheral) 64 Blood Pressure 116/60 Height 156 cm Height 61 in Weight 90.9 kg Weight 199.98 lb BMI 37.35 What to do next You Need to Schedule the Following Appointments Follow Up with Micah Diaz DO, JAVID, PED When: Within 3 months Comments: 20 min slot To go instructions: Follow up with cardiology as planned Have labs drawn soon - I will call with the results I have placed a referral for pelvic floor therapy - the hospital will call in the next week or two to schedule When you see providers outside of [facility], please request that they send office visit notes every time you're seen there - this helps us take better care of you [place] - for weight loss f/u 3-6 months Where: [address] [place] [id number] You Need to Complete the Following CBC [...] Screening, No, Screening mammogram, encounter for, pp_set_radiology_subspecial [facility] Medications What How Much When Instructions Unchanged [...] a mix (more content not included)... Normal [facility] Family Medicine Office/Clini c Noteon 10-03-2023 Family Medicine Office/Clinic Note Chief Complaint EST CARE HPI Staff Establish Care: History: Last provider:Kayla Dent Any recent labs:NO Health Maintenance UTD: Colonoscopy: Due for cologuard PSA: N/A Mammogram: Due Pelvic/Pap: no Acute: Current issues/complaints: Discuss getting off Zoloft, Would like a Dr who will take care of all her issues. Cardio. Dr Federico Wing in [place] . History of Present Illness 52 Years old Female here for ESTABLISH CARE This patient is NEW TO ME Previous PCP was Kayla Dent DO Last appt with previous PCP was six weeks ago Social: The patient is ; [place] since November 05, 2021 The patient is currently working; [employer] for 1 years The patient has 3 [...] - Dr. Wing - doesn't follow with [employer] HPI staff / Chief Complaint confirmed with [...] control Referred for pelvic floor therapy Ordered[place] [facility] [place] Evaluate Patient, Develop a [...] reviewed as (more content not included)... Normal [facility] Comment on above: Result Comment: Elec tronically Signed By: Micah Diaz DO\.ayla\Date and Time Signed: 10/03/23 19:51 EDT Patient [...] needs of life, such as food and penitentiary. ? Being treated poorly because of race, sex, or sabianist (discrimination). ? Health and mental problems that [...] Any drug use. General instructions ? Take ilcf-jtm-wbskyui and prescription medicines and herbal preparations only as told by your doctor. ? Eat a healthy diet. ? Get a lot of sleep. ? Think about joining a support group. Your doctor may be able to suggest one. ? Keep all follow-up visits as told by your doctor. This is important. Where to find more information: ? National [place] on Mental Illness: www.nhan.org ? U.[place]. National [place] of Mental Health: www.nimh.nih.gov ? [employer]: www.psychiatry.org/patients -families/ Contact a doctor [...] (911 i (more content not included)... Normal [facility] Physician Orderon 06-29-2023 Physician Order [id number]#1.00TIFF Normal [facility] PT - Orderson 04-27-2023 PT - Orders [id number]#1.00TIFF Normal [facility] Consent for Treatmenton Consent for Treatment [id number]#1.00TIFF Normal [facility] PT - Assessmentson PT - Assessments [id number]#1.00TIFF Normal [facility] PT - Consentson 04-26-2023 PT - Consents [id number]#1.00TIFF Normal [facility] PT - Orderson 04-26-2023 PT - Orders [id number]#1.00TIFF [facility] Holter monitor studyon 04-18 This [...] transmissions. Clinical correlation needs to be made [facility] Holter monitor studyOrdered By: Federico Wing on 04-18-2023 [facility] Work Phone: Consent for Treatmenton 03-18 Consent for Treatment [id number]#1.00TIFF [facility] MRI Ankle w/o Contrast Right [...] BENITA Technologist: JENNI Technical Comments None Normal [facility] RAD - MRI Screening Formon 1 RAD - MRI Screening Form [id number]#1.00TIFF Normal [facility] Physician Orderon 03-21-2023 Physician Order [id number]#1.00CD:127 Normal [facility] MRI Cardiac w/wo contrast fo r Morph/Funct and Valve Dzon 04-25-2023 MRI Cardiac w/wo contrast for Morph/Funct and Valve Dz Normal [facility] Work Phone: TH MRI CARDIAC RESONANCE MENG GING FOR VELOCITY FLOW MAPPINGon 10-10-2022 MRI CARDIAC RESONANCE IMAGING FOR VELOCITY FLOW MAPPING [facility] CMR Report Name: RASHEEDA HANNA : 1970 Scan Date: 2022-10-10 13:15:00 Electronically signed by NAILA LEACH 15:48:14 GENERAL INFORMATION HEIGHT: 60.00 in (152.40 cm) WEIGHT: 186.00 lbs (84.37 kgs) BSA: 1.81 m^2 BASELINE HR: 0 BPM SCAN LOCATION: [facility] REFERRING PHYSICIAN: FEDERICO WING ATTENDING PHYSICIAN: FEDERICO WING TECHNOLOGIST: GENARO DELONG ACCESSION NUMBER: [id number] CPT CODES: 67668, [ , ]67470 ICD10 CODES: R00.2, [ , ]I49.3 SUMMARY [...] . Normal (more content not included)... Normal [facility] MRI CARDIAC W/WO CONTRAST FOR MORPH/FUNCT AND VALVE [facility] 10-10-2022 MRI CARDIAC W/WO CONTRAST FOR MORPH/FUNCT AND VALVE [facility] CMR Report Name: RASHEEDA HANNA : 1970 Scan Date: 2022-10-10 13:15:00 Electronically signed by NAILA LEACH 15:48:14 GENERAL INFORMATION HEIGHT: 60.00 in (152.40 cm) WEIGHT: 186.00 lbs (84.37 kgs) BSA: 1.81 m^2 BASELINE HR: 0 BPM SCAN LOCATION: [facility] REFERRING PHYSICIAN: FEDERICO WING ATTENDING PHYSICIAN: FEDERICO WING TECHNOLOGIST: GENARO DELONG ACCESSION NUMBER: [id number] CPT CODES: 78147, [ , ]31526 ICD10 CODES: R00.2, [ , ]I49.3 SUMMARY [...] . Normal (more content not included)... Normal [facility] CHEMISTRYOrdered By: SYSTEM SYSTEM on 09-23-2022 [...] rate/Area] mL/min/1.73 m2 Normal >=59mL/min/ 1.73 m2 [facility] [place] S Globulin (S) [Mass/Vol] 3.5 g/dL [...] alcoholic beverages.; Status:Complete - Retrospective Authorization; Done: [id number] Avoid foods and beverages that contain caffeine.; Status:Complete - Retrospective Authorization; Done: [id number] Eat a normal well-balanced diet.; Status:Complete - [...] or Bone Graft Simulator, Implanted Breast Tissue Engineer Soils, Glucose Monitor, or Neulasta Device? : No Is the patient or breast feeding? : No What are the patient's signs and symptoms? : Tachycardia Patient Instructions Patient to follow up in 4-[address] Federico Wing MD Patient will INCREASE Flecainide to 100mg twice daily. Patient will need to complete an EKG on and Sunday of this week in [facility]- office will arrange for you. Patient will [...] tests Chief Complaint Patient here for [facility] discharge follow up. Discharged 08/24. Palpitations, [...] no marcellus (more content not included)... Normal Prepmatic Tobacco Screening.on 023 Adult depression screening assessment No [facility] a [facility] DO Work Phone: Fall risk assessment a) No falls within the last year [facility] DO Work Phone: Tobacco use status CP b) No [facility] a 305 DO Work Phone: BASIC METABOLIC PANELon 03- Anion gap [Moles/Vol] 11 mmol/L Normal 10 - 20 [facility] Comment on above: Performed By: #### T [facility] #### [address] [id number] Calcium [Mass/Vol] 8.9 mg/dL Normal 8.6 - 10.3 [facility] Comment on above: Performed By: #### T [facility] #### [address] [id number] Chloride [Moles/Vol] 104 mmol/L Normal 98 - 107 [facility] Comment on above: Performed By: #### T [facility] #### [address] [id number] Creatinine [Mass/Vol] 0.76 mg/dL Normal 0.50 - 1.05 [facility] Comment on above: Performed By: #### T [facility] #### [address] [id number] eGFR FEMALE >90 Normal >90 [facility] Comment on above: Result Comment: CALC ULATIONS OF ESTIMATED GFR ARE PERFORMED USING THE 2020 CKD-EPI STUDY REFIT EQUATION WITHOUT THE RACE VARIABLE FOR THE IDMS-TRACEABLE CREATININE METHODS. https://jasn.asnjournals.org/content//ASN.8766874 988 Performed By: #### T [facility] #### [address] [id number] Glucose [Mass/Vol] 99 mg/dL Normal 74 - 99 [facility] Comment on above: Performed By: #### T [facility] #### [address] [id number] HCO3 (Bld) [Moles/Vol] 26 mmol/L Normal 21 - 32 [facility] Comment on above: Performed By: #### T [facility] #### [address] [id number] Potassium [Moles/Vol] 3.8 mmol/L Normal 3.5 - 5.3 [facility] Comment on above: Performed By: #### T [facility] #### [address] [id number] Sodium [Moles/Vol] 137 mmol/L Normal 136 - 145 [facility] Comment on above: Performed By: #### T [facility] #### [address] [id number] Urea nitrogen [Mass/Vol] 16 mg/dL Normal 6 - 23 [facility] Comment on above: Performed By: #### T [facility] #### [address] [id number] CBCon 08-25-2022 Erythrocyte distribution width (RBC) [Ratio] 12.6 % Normal 11.5 - 14.5 [facility] Comment on above: Performed By: #### C BC #### [address] [id number] Hematocrit (Bld) [Volume fraction] 38.4 % Normal 36.0 - 46.0 [facility] Comment on above: Performed By: #### C BC #### [address] [id number] Hemoglobin (Bld) [Mass/Vol] 13.1 g/dL Normal 12.0 - 16.0 [facility] Comment on above: Performed By: #### C BC #### [address] [id number] MCHC (RBC) [Mass/Vol] 34.1 g/dL Normal 32.0 - 36.0 [facility] Comment on above: Performed By: #### C BC #### [address] [id number] MCV (RBC) [Entitic vol] 92 fL Normal 80 - 100 [facility] Comment on above: Performed By: #### C BC #### [address] [id number] Platelets (Bld) [#/Vol] 248 10*3/uL Normal 150 - 450 [facility] Comment on above: Performed By: #### C BC #### [address] [id number] RBC 4.18 x10E12/L Normal 4.00 - 5.20 [facility] Comment on above: Performed By: #### C BC #### [address] [id number] WBC (Bld) [#/Vol] 9.6 10*3/uL Normal 4.4 - 11.3 [facility] Comment on above: Performed By: #### C #### [address] [id number] Daily Progress Note-Electrop hysiologyon 08-25-2022 Daily Progress Note-Electrophysiolo gy Consult Type: subsequent visit/care Service: Electrophysiology Subjective Data: RASHEEDA HANNA is a 51 year old Female who is Hospital Day # 4. Additional Information: still with c/o palpitations/ chest pain approximately 1 hour prior to receiving dose of flecainide Up out of bed ambulating in room and bianchi Objective Data: Objective Information: T PRBPMAPSpO2 [id number]/445301% Date/Time08/25 12: 12: 12: 12: 12: 12:17 [...] to better control of PVCs. EKG in [place] office on Monday 08/28 and Tuesday 08/29 [...] day Patien (more content not included)... Normal [facility] Electrocardiogram 12 Leadon 08-25-2022 Electrocardiogram 12 Lead Ventricular Rate 71 Atrial Rate 71 P-R Interval 166 QRS Duration 88 Q-T Interval 380 QTC Calculation(Bazett) 412 P [place] 59 R [place] 61 T [place] 56 QRS Count 12 Q Onset 219 P Onset 136 P Offset 195 T Offset 409 QTC Fredericia 402 Diagnosis Class Borderline Abnormal Diagnosis Normal sinus rhythm Normal ECG When compared with ECG of 24-AUG-2022 20:23, premature ventricular complexes is no longer present Confirmed by Naila Leach ([id number]) on 08/26/2022 1:34:29 PM Normal [facility] Laboratory - Chemistry and C hemistry - challengeon 08-25-2022 Anion gap [Moles/Vol] 11 mmol/L 10 - 20 [facility] [place] Work Phone: Calcium [Mass/Vol] 8.9 mg/dL 8.6 - 10.3 [facility] Work Phone: Chloride [Moles/Vol] 104 mmol/L 98 - 107 [facility] Work Phone: CO2 [Moles/Vol] 26 mmol/L 21 - 32 [facility] Work Phone: Creatinine [Mass/Vol] 0.76 mg/dL See Below [facility] [place] Work Phone: Comment on above: Reference Range: 0.5 0 - 1.05 Glucose [Mass/Vol] 99 mg/dL 74 - 99 [facility] Work Phone: Potassium [Moles/Vol] 3.8 mmol/L 3.5 - 5.3 [facility] [place] Work Phone: Sodium [Moles/Vol] 137 mmol/L 136 - 145 [facility] Work Phone: Urea nitrogen [Mass/Vol] 16 mg/dL 6 - 23 [facility] [place] Work Phone: Laboratory - Hematology and Cell countson 08-25-2022 Erythrocyte distribution width (RBC) [Ratio] 12.6 % See Below [facility] [place] Work Phone: Comment on above: Reference Range: 11. 5 - 14.5 Hematocrit (Bld) [Volume fraction] 38.4 % See Below [facility] Work Phone: Comment on above: Reference Range: 36. 0 - 46.0 Hemoglobin (Bld) [Mass/Vol] 13.1 g/dL See Below [facility] Work Phone: Comment on above: Reference Range: 12. 0 - 16.0 MCHC (RBC) [Mass/Vol] 34.1 g/dL See Below [facility] Work Phone: Comment on above: Reference Range: 32. 0 - 36.0 MCV (RBC) [Entitic vol] 92 fL 80 - 100 [facility] Work Phone: Platelets (Bld) [#/Vol] 248 10*3/uL 150 - 450 [facility] Work Phone: RBC (Bld) [#/Vol] 4.18 {x10E12/L} See Below [facility] Work Phone: Comment on above: Reference Range: 4.0 0 - 5.20 WBC (Bld) [#/Vol] 9.6 10*3/uL 4.4 - 11.3 [facility] Work Phone: MAGNESIUMon 08-25-2022 Magnesium [Mass/Vol] 1.91 mg/dL Normal 1.60 - 2.40 [facility] Comment on above: Performed By: #### M G #### [address] [id number] Magnesium, Serumon 3 Magnesium [Mass/Vol] 1.91 mg/dL See Below [facility] Work Phone: Comment on above: Reference Range: 1.6 0 - 2.40 No Panel Informationon 08-25 https://[facility] – OKLAHOMA CITYEXPRDWE [email or web address] [email or web address]?R etrieveTestByDateTime?Patie lnXL=[id number]&Date= 023&Time=06%3a43%3a42%3a00& TestType=ECG&Site=11&Output Type=PDF&Ext=PDF [facility] DO Work Phone: Normal sinus rhythm [facility] DO Work Phone: Borderline Abnormal MP[facility] DO Work Phone: [phone] -[facility] DO Work Phone: [phone] -[facility] DO Work Phone: [phone] 1 -[facility] DO Work Phone: [phone] 1 -[facility] DO Work Phone: [phone] 1 -[facility] DO Work Phone: [phone] 1 -[facility] DO Work Phone: [phone] 1 -[facility] DO Work Phone: [phone] 1 -[facility] DO Work Phone: [phone] 1 -[facility] DO Work Phone: [phone] [facility] DO Work Phone: [phone] 1 -[facility] DO Work Phone: [phone] [facility] DO Work Phone: [phone] 1 -[facility] DO Work Phone: [phone] [facility] DO Work Phone: [phone] >90 >90 [facility] Work Phone: [phone] Comment on above: CALCULATIONS OF LINDSEY MATED GFR ARE PERFORMED USING THE 2020 CKD-EPI STUDY REFIT EQUATION WITHOUT THE RACE VARIABLE FOR THE IDMS-TRACEABLE CREATININE METHODS.https://jasn.asnjournals.org/content//ASN .8918096044 BASIC METABOLIC PANELon 03-0 GFR/1.73 sq M.predicted among non-blacks MDRD (S/P/Bld) [Vol rate/Area] 90 mL/min/{1.73_m2} Normal >90 [facility] Comment on above: Result Comment: CALC ULATIONS OF ESTIMATED GFR ARE PERFORMED USING THE 2020 CKD-EPI STUDY REFIT EQUATION WITHOUT THE RACE VARIABLE FOR THE IDMS-TRACEABLE CREATININE METHODS. https://jasn.asnjournals.org/content/early/ASN.1540071 988 Performed By: #### T [facility] #### [address] [id number] HCO3 (Bld) [Moles/Vol] 25 mmol/L Normal 21 - 32 [facility] Comment on above: Performed By: #### T [facility] #### [address] [id number] Anion gap [Moles/Vol] 12 mmol/L Normal 10 - 20 [facility] Work Phone: Comment on above: Performed By: #### T [facility] #### [address] [id number] Calcium [Mass/Vol] 8.9 mg/dL Normal 8.6 - 10.3 [facility] Work Phone: Comment on above: Performed By: #### T [facility] #### [address] [id number] Chloride [Moles/Vol] 104 mmol/L Normal 98 - 107 [facility] Work Phone: Comment on above: Performed By: #### T [facility] #### [address] [id number] Creatinine [Mass/Vol] 0.78 mg/dL Normal 0.50 - 1.05 [facility] Work Phone: Comment on above: Reference Range: 0.5 0 - 1.05 Performed By: #### T [facility] #### [address] [id number] Glucose [Mass/Vol] 109 mg/dL High 74 - 99 [facility] [place] Work Phone: Comment on above: Performed By: #### T RP #### [address] [id number] Potassium [Moles/Vol] 4.0 mmol/L Normal 3.5 - 5.3 [facility] [place] Work Phone: Comment on above: Performed By: #### T RP #### [address] [id number] Sodium [Moles/Vol] 137 mmol/L Normal 136 - 145 [facility] [place] Work Phone: Comment on above: Performed By: #### T RP #### [address] [id number] Urea nitrogen [Mass/Vol] 17 mg/dL Normal 6 - 23 [facility] [place] Work Phone: Comment on above: Performed By: #### T RP #### [address] [id number] CBCon 08-24-2022 Erythrocyte distribution width (RBC) [Ratio] 12.6 % Normal 11.5 - 14.5 [facility] Comment on above: Performed By: #### C BC #### [address] [id number] Hematocrit (Bld) [Volume fraction] 39.8 % Normal 36.0 - 46.0 [facility] Comment on above: Performed By: #### C BC #### [address] [id number] Hemoglobin (Bld) [Mass/Vol] 13.5 g/dL Normal 12.0 - 16.0 [facility] Comment on above: Performed By: #### C BC #### [address] [id number] MCHC (RBC) [Mass/Vol] 33.9 g/dL Normal 32.0 - 36.0 [facility] Comment on above: Performed By: #### C BC #### [address] [id number] MCV (RBC) [Entitic vol] 92 fL Normal 80 - 100 [facility] Comment on above: Performed By: #### C BC #### [address] [id number] Platelets (Bld) [#/Vol] 264 10*3/uL Normal 150 - 450 [facility] Comment on above: Performed By: #### C BC #### [address] [id number] RBC 4.32 x10E12/L Normal 4.00 - 5.20 [facility] Comment on above: Performed By: #### C BC #### [address] [id number] WBC (Bld) [#/Vol] 9.3 10*3/uL Normal 4.4 - 11.3 [facility] Comment on above: Performed By: #### C BC #### [address] [id number] Daily Progress Note-Electrop hysiologyon 08-24-2022 Daily Progress [...] day Objective Data: Objective Information: T PRBPMAPSpO2 Value36.522183/632428% Date/Time08/24 7: 7: 7: 7: 7:20 Range(36.1C [...] Last Updated: 24-Aug-2022 13:51 by Federico Wing) [facility] Daily Progress Note-Medicine on 08-24-2022 Daily [...] resolved. Objective Data: Objective Information: T PRBPMAPSpO2 Value36.417301/399652% Date/Time08/24 15: 15: 15: 15: 15:18 Range(36.1C [...] Last Updated: 24-Aug-2022 16:43 by Skip Kelly) [facility] Discharge [id number] Discharge Profile2 Discharge Orders: Anticipated Discharge Date: Anticipated Discharge [id number] Hospital Providers: Provider RoleProvider Name AttendingSkip Kelly Alberto DNAR: Code Status at Discharge: Full Code Activity: activity as tolerated. Provider FINAL REVIEW of Orders: Final Review: Final Review of Medication Reconciliation and Orders Completedby Physician Reviewing Viki Kelly MD at 25-Aug-2022 13:14:58 Appointments: Follow-Up Appointment 01: Physician/Dept/ServiceDr. Wing Reason for ReferralElectrophysiology follow-up Scheduled Date/[id number] 11:45 [facility] in [address] Phone [phone] Other Clinician Instructions: Other Instructions: Other Clinician InstructionsPlease follow up in the [place] office as discussed with EP for repeat EKGs on monday 08/28 and tuesday 08/29. You will be increasing your flecainide to 75mg twice daily on Sunday. Please call the office or return to the hospital if you have worsening chest pain, shortness of breath, if you pass out, or have any other concerning symptoms. Electronic Signatures: Felicita Bhagat (SEPARATOR TENDER-DEBT MANAGEMENT COUNSELOR) (Signed 24-Aug-2022 14:30) Authored: Discharge Orders, Appointments, Gold Form - Rail Loader Summary Skip Kelly) (Signed 25-Aug-2022 13:14) Authored: Discharge Orders, Provider FINAL REVIEW of Orders, Other Clinician Instructions Last Updated: 25-Aug-2022 13:14 by Skip Kelly) Normal [facility] Electrocardiogram 12 Leadon 08-24-2022 Electrocardiogram 12 Lead Ventricular Rate 69 Atrial Rate 69 P-R Interval 136 QRS Duration 82 Q-T Interval 398 QTC Calculation(Bazett) 426 P [place] 39 R [place] 48 T [place] 45 QRS Count 11 Q Onset 218 P Onset 150 P Offset 193 T Offset 417 QTC Fredericia 417 Diagnosis Class Borderline Abnormal Diagnosis Sinus rhythm with frequent premature ventricular complexes in a pattern of bigeminy Otherwise normal ECG When compared with ECG of 24-AUG-2022 06:30, No significant change was found Confirmed by Naila Leach ([id number]) on 08/26/2022 1:28:10 PM Normal [facility] Electrocardiogram 12 Lead Ventricular Rate 62 Atrial Rate 62 P-R Interval 162 QRS Duration 86 Q-T Interval 392 QTC Calculation(Bazett) 397 P [place] 28 R [place] 46 T [place] 42 QRS Count 10 Q Onset 219 [...] Wing ([id number]) on 08/24/2022 8:32:51 AM Normal [facility] Laboratory - Chemistry and C hemistry - challengeon 08-24-2022 CO2 [Moles/Vol] 25 mmol/L 21 - 32 [facility] Work Phone: Laboratory - Hematology and Cell countson 08-24-2022 Erythrocyte distribution width (RBC) [Ratio] 12.6 % See Below [facility] Work Phone: Comment on above: Reference Range: 11. 5 - 14.5 Hematocrit (Bld) [Volume fraction] 39.8 % See Below [facility] Work Phone: Comment on above: Reference Range: 36. 0 - 46.0 Hemoglobin (Bld) [Mass/Vol] 13.5 g/dL See Below [facility] Work Phone: Comment on above: Reference Range: 12. 0 - 16.0 MCHC (RBC) [Mass/Vol] 33.9 g/dL See Below [facility] Work Phone: Comment on above: Reference Range: 32. 0 - 36.0 MCV (RBC) [Entitic vol] 92 fL 80 - 100 [facility] Work Phone: Platelets (Bld) [#/Vol] 264 10*3/uL 150 - 450 [facility] Work Phone: RBC (Bld) [#/Vol] 4.32 {x10E12/L} See Below [facility] Work Phone: [phone] Comment on above: Reference Range: 4.0 0 - 5.20 WBC (Bld) [#/Vol] 9.3 10*3/uL 4.4 - 11.3 [facility] [place] Work Phone: Magnesium, Serumon 3 Magnesium [Mass/Vol] 2.00 mg/dL Normal 1.60 - 2.40 [facility] [place] Work Phone: [phone] Comment on above: Reference Range: 1.6 0 - 2.40 Performed By: #### M G #### [address] [id number] No Panel Informationon 08-24 [email or web address]?R etrieveTestByDateTime?Patie nlDP=[id number]&Date= 023&Time=20%3a23%3a14%3a00& TestType=ECG&Site=11&Output Type=PDF&Ext=PDF [facility] DO Work Phone: Sinus rhythm with fr equent premature ventricular complexes in a pattern of bigeminy [facility] DO Work Phone: Borderline Abnormal [facility] DO Work Phone: [phone] [facility] DO Work Phone: [phone] [facility] [facility] [address] DO Work Phone: [phone] [facility] [facility] [address] DO Work Phone: [phone] [facility] [address] DO Work Phone: 11 1 [facility] [address] DO Work Phone: 45 1 [facility] [address] DO Work Phone: 48 1 [facility] [address] DO Work Phone: 39 1 [facility] [address] DO Work Phone: [phone] [facility] [address] DO Work Phone: [phone] 1 [facility] [address] DO Work Phone: [phone] [facility] DO Work Phone: [phone] [facility] DO Work Phone: 69 1 [facility] DO Work Phone: [email or web address]?R etrieveTestByDateTime?Patie wrGS=[id number]&Date= 023&Time=06%3a30%3a53%3a00& TestType=ECG&Site=11&Output Type=PDF&Ext=PDF [facility] Work Phone: Sinus rhythm with occasional premature ventricular complexes [facility] Work Phone: [phone] Borderline Abnormal [facility] Work Phone: [phone] [facility] Work Phone: [phone] [facility] Work Phone: [phone] [facility] Work Phone: 138 1 [facility] Work Phone: [phone] [facility] Work Phone: 10 1 [facility] Work Phone: 42 1 [facility] Work Phone: 46 1 [facility] Work Phone: [phone] [facility] Work Phone: [phone] [facility] Work Phone: [phone] [facility] Work Phone: 86 1 [facility] Work Phone: 162 1 [facility] Work Phone: 62 1 [facility] Work Phone: 90 {mL/min/1.73m2} >90 [facility] Work Phone: Comment on above: CALCULATIONS OF LINDSEY MATED GFR ARE PERFORMED USING THE 2020 CKD-EPI STUDY REFIT EQUATION WITHOUT THE RACE VARIABLE FOR THE IDMS-TRACEABLE CREATININE METHODS.https://jasn.asnjournals.org/content/early/ASN .4649261491 Order Reconciliationon 08-24 Order Reconciliation Page 1 Discharge Reconciliation Document Reconciliation Type: Discharge requested on behalf of Skip Kelly (Physician) done by Skip Kelly) Discharge - Partial Reconciliation: 24-Aug-2022 09:08 by: Kayla Shaw ([facility]) Discharge - Partial Reconciliation: 25-Aug-2022 09:53 by: Kayla Shaw ([facility]) Discharge - Partial Reconciliation: 25-Aug-2022 12:31 by: Kayla Shaw ([facility]) Discharge - Reconciliation: 25-Aug-2022 13:15 by: Skip [...] [employer] (more content not included)... Normal [facility] Admission Risk Screen - Adul ton [...] AlertFor Ebola-like Symptoms: Isolate Patient and Notify Provider/Maintenance Worker For Contact: Notify Provider/Maintenance Worker Advance Directive: Advance Directive/DNRno Advance Directive Information [...] Learning Preferencesskill demonstration Cultural Considerationsnone Developmental Considerationsnone Orthodoxy Considerationsnone Learning Assessment (Other Learner): Other learner availableno Depression Screen: During the past month, have you often been bothered by feeling down, depressed or hopelessyes During the past month, have you often had little interest or pleasure in doing thingsno Have you had any thoughts of harming anyone elseno (1) [place] Suicide: Risk Screen Not Applicable/Able to Answerable to be screened In the Past Month: Have you wished you were or could go to sleep and not wake upno(1) In the Past Month: Have you had any actual thoughts of killing yourself no(1) Lifetime: Have you ever done, started to do, or prepared to do anything to end your lifeno [place] Suicide Risknegative Adult Nutrition Screen: Have you [...] Spiritual Screen: Are there any cultural, spiritual, jain practices/values/needs that are important for us to knowno CAGE: Is this an injure (more content not included)... Normal [facility] BASIC METABOLIC PANELon 03-0 Anion gap [Moles/Vol] 11 mmol/L Normal 10 - 20 [facility] Comment on above: Performed By: #### B MP #### [address] [id number] Calcium [Mass/Vol] 8.9 mg/dL Normal 8.6 - 10.3 [facility] Comment on above: Performed By: #### B MP #### [address] [id number] Chloride [Moles/Vol] 102 mmol/L Normal 98 - 107 [facility] Comment on above: Performed By: #### B MP #### [address] [id number] Creatinine [Mass/Vol] 0.92 mg/dL Normal 0.50 - 1.05 [facility] Comment on above: Performed By: #### B MP #### [address] [id number] GFR/1.73 sq M.predicted among non-blacks MDRD (S/P/Bld) [Vol rate/Area] 74 mL/min/{1.73_m2} Normal >90 [facility] Comment on above: Result Comment: CALC ULATIONS OF ESTIMATED GFR ARE PERFORMED USING THE 2020 CKD-EPI STUDY REFIT EQUATION WITHOUT THE RACE VARIABLE FOR THE IDMS-TRACEABLE CREATININE METHODS. https://jasn.asnjournals.org/content/early/ASN.5223915 988 Performed By: #### B MP #### [address] [id number] Glucose [Mass/Vol] 103 mg/dL High 74 - 99 [facility] Comment on above: Performed By: #### B MP #### [address] [id number] HCO3 (Bld) [Moles/Vol] 26 mmol/L Normal 21 - 32 [facility] Comment on above: Performed By: #### B MP #### [address] [id number] Potassium [Moles/Vol] 3.8 mmol/L Normal 3.5 - 5.3 [facility] Comment on above: Performed By: #### B MP #### [address] [id number] Sodium [Moles/Vol] 135 mmol/L Low 136 - 145 [facility] Comment on above: Performed By: #### B MP #### [address] [id number] Urea nitrogen [Mass/Vol] 17 mg/dL Normal 6 - 23 [facility] Comment on above: Performed By: #### B MP #### [address] [id number] CBCon 08-23-2022 Erythrocyte distribution width (RBC) [Ratio] 12.5 % Normal 11.5 - 14.5 [facility] Comment on above: Performed By: #### C BC #### [address] [id number] Hematocrit (Bld) [Volume fraction] 39.7 % Normal 36.0 - 46.0 [facility] Comment on above: Performed By: #### C BC #### [address] [id number] Hemoglobin (Bld) [Mass/Vol] 13.6 g/dL Normal 12.0 - 16.0 [facility] Comment on above: Performed By: #### C BC #### [address] [id number] MCHC (RBC) [Mass/Vol] 34.3 g/dL Normal 32.0 - 36.0 [facility] Comment on above: Performed By: #### C BC #### [address] [id number] MCV (RBC) [Entitic vol] 93 fL Normal 80 - 100 [facility] Comment on above: Performed By: #### C BC #### [address] [id number] Platelets (Bld) [#/Vol] 256 10*3/uL Normal 150 - 450 [facility] Comment on above: Performed By: #### C BC #### [address] [id number] RBC 4.25 x10E12/L Normal 4.00 - 5.20 [facility] Comment on above: Performed By: #### C BC #### [address] [id number] WBC (Bld) [#/Vol] 9.2 10*3/uL Normal 4.4 - 11.3 [facility] Comment on above: Performed By: #### C BC #### [address] [id number] Consult-Electrophysiologyon 08-23-2022 Consult-Electrophysi ology Service: Service: Electrophysiology Consult: Consult requested by (Attending Name): Skip Kelly Reason: symptomatic bradycardia, bigeminy History of Present Illness: HPI: RASHEEDA HANNA is a 51 year old Female evaluated in [facility] emergency room on 08/22/2022 secondary to palpitations, [...] Swelling, Hives/Urticaria Objective: Objective Information: T PRBPMAPSpO2 [id number]% Date/Time08/23 9: 9: 16:4408/23 9: 0:113 9:05 [...] 3:25:30 PM (more content not included)... Normal [facility] Daily Progress Note-Medicine on 08-23-2022 Daily Progress Note-Medicine Service: Medicine Subjective Data: RASHEEDA HANNA is a 51 year old Female who is Hospital Day # 2. Some bradycardia overnight. Feeling better today however, less dizziness. Still getting symptoms with positional changes however. No chest pain. No dyspnea. Objective Data: Objective Information: T PRBPMAPSpO2 [id number]/377219% Date/Time08/23 14: 14: 16:443 14: 0:113 14:03 [...] Updated: 23-Aug-2022 16:31 by Skip Kelly) Normal [facility] Discharge Planning [id number] 0 08-23-2022 Discharge Planning Note2 Discharge Planning: Discharge DestinationHome Anticipated Discharge [id number] Discharge Planning 08/23/2022 1422 Care Transitions Note Rasheeda Hanna is a 51 year old female who was admitted to [facility] 08/22/2022 with dx of chest pain. Chart reviewed, software writer spoke with patient- introduced self and explained role. Patient sitting up in bed. She is alert and oriented x3. Patient interacted well with software writer and answered assessment questions appropriately. Demographics confirmed. PCP Dr. Kayla Dent who she saw in June and have follow-up in October. Pharmacy preference is [facility]. Prior to admission, lives with spouse in a 1 story home. Prior level of functioning independent no assistive device. She completed own adls and iadls. She is still working 42-50 hours a week. Powder Core Tester discussed discharge needs/ concerns. She is currently denying any needs/ concerns. Her plan is home. Care Transitions to continue to monitor progression and address needs/ concerns as identified. ASHUTOSH Paulino Assessment: Discharge Planning Assessment [id number] Primary Contact Name and [phone] (spouse) He(1) Lives Withadult child(jose); dependent child(jose); spouse(1) Living Arrangementshouse(1) Stated Reason for AdmissionChest pain dizzy and SOB(1) [place] ([place]) Resource/Environmental Concernsnone(1) Anticipated Transition [place](1) Services Anticipated at Transitionnon(1) Electronic Signatures: Lou Ferrer) (Signed 23-Aug-2022 14:34) Authored: Discharge Planning, Assessment Last Updated: 23-Aug-2022 14:34 by Lou Ferrer (HARRIET) References: 1. Data Referenced From Patient Profile - Adult v2 22-Aug-2022 22:19 Normal [facility] Laboratory - Chemistry and C hemistry - challengeon 08-23-2022 Anion gap [Moles/Vol] 11 mmol/L 10 - 20 [facility] [place] Work Phone: Calcium [Mass/Vol] 8.9 mg/dL 8.6 - 10.3 [facility] [place] Work Phone: Chloride [Moles/Vol] 102 mmol/L 98 - 107 [facility] [place] Work Phone: CO2 [Moles/Vol] 26 mmol/L 21 - 32 [facility] [place] Work Phone: Creatinine [Mass/Vol] 0.92 mg/dL See Below [facility] [place] Work Phone: Comment on above: Reference Range: 0.5 0 - 1.05 Glucose [Mass/Vol] 103 mg/dL above high threshold 74 - 99 [facility] [place] Work Phone: Potassium [Moles/Vol] 3.8 mmol/L 3.5 - 5.3 [facility] [place] Work Phone: Sodium [Moles/Vol] 135 mmol/L below low threshold 136 - 145 [facility] [place] Work Phone: Urea nitrogen [Mass/Vol] 17 mg/dL 6 - 23 [facility] Work Phone: Laboratory - Hematology and Cell countson 08-23-2022 Erythrocyte distribution width (RBC) [Ratio] 12.5 % See Below [facility] Work Phone: Comment on above: Reference Range: 11. 5 - 14.5 Hematocrit (Bld) [Volume fraction] 39.7 % See Below [facility] Work Phone: Comment on above: Reference Range: 36. 0 - 46.0 Hemoglobin (Bld) [Mass/Vol] 13.6 g/dL See Below [facility] Work Phone: Comment on above: Reference Range: 12. 0 - 16.0 MCHC (RBC) [Mass/Vol] 34.3 g/dL See Below [facility] Work Phone: Comment on above: Reference Range: 32. 0 - 36.0 MCV (RBC) [Entitic vol] 93 fL 80 - 100 [facility] Work Phone: Platelets (Bld) [#/Vol] 256 10*3/uL 150 - 450 [facility] Work Phone: RBC (Bld) [#/Vol] 4.25 {x10E12/L} See Below [facility] Work Phone: Comment on above: Reference Range: 4.0 0 - 5.20 WBC (Bld) [#/Vol] 9.2 10*3/uL 4.4 - 11.3 [facility] Work Phone: No Panel Informationon 08-23 74 {mL/min/1.73m2} >[address] [facility] [facility] Work Phone: Comment on above: CALCULATIONS OF LINDSEY MATED GFR ARE PERFORMED USING THE 2020 CKD-EPI STUDY REFIT EQUATION WITHOUT THE RACE VARIABLE FOR THE IDMS-TRACEABLE CREATININE METHODS.https://jasn.asnjournals.org/content//ASN .1139394793 Patient Profile - Adult v2on 08-23-2022 Patient Profile - Adult v2 Profile: Initial Info: How to be AddressedPaula(1) Spoken Language PreferredEnglish (1) Stated Reason for AdmissionChest pain dizzy and SOB Primary Contact Name and [phone] (spouse) He Wants Family/Rep Notified of Admissionn/a; family present Notify PCPdeferred, unable to answer Informed of Patient Visiting Rightsyes [place] Employment Statusemployed Patient Belongingsremains with patient Patient Belongings Remaining with Patientcell phone/electronics; vision aids Medications Brought to Hospitalno General Health: Blood Avoidance/Restrictionsnone( 1) Previous Transfusion Reactionno(1) Weight in kg82.8 kilogram(s) Weight in xly354.5 pound(s) Weight Methodactual (measured) Scale Typestanding Height [...] From History and Physical 22-Aug-2022 17:58 Normal [facility] BASIC METABOLIC PANELon 03-0 ANION GAP Canceled Normal [facility] Comment on above: Order Comment: TEST BASIC METABOLIC PANEL WAS CANCELLED, 08/22/2022 20:12 This order is Barbi draw. Retiming 08/22/2022 20:12. Performed By: #### T RPHS #### [address] [id number] BICARBONATE Canceled Normal [facility] Comment on above: Order Comment: TEST BASIC METABOLIC PANEL WAS CANCELLED, 08/22/2022 20:12 This order is Barbi draw. Retiming 08/22/2022 20:12. Performed By: #### T RPHS #### [address], [place] [id number] CALCIUM Canceled Normal [facility] Comment on above: Order Comment: TEST BASIC METABOLIC PANEL WAS CANCELLED, 08/22/2022 20:12 This order is Barbi draw. Retiming 08/22/2022 20:12. Performed By: #### T RPHS #### [address], [place] [id number] CHLORIDE Canceled Normal [facility] Comment on above: Order Comment: TEST BASIC METABOLIC PANEL WAS CANCELLED, 08/22/2022 20:12 This order is Barbi draw. Retiming 08/22/2022 20:12. Performed By: #### T RPHS #### [address] [id number] CREATININE Canceled Normal [facility] Comment on above: Order Comment: TEST BASIC METABOLIC PANEL WAS CANCELLED, 08/22/2022 20:12 This order is Barbi draw. Retiming 08/22/2022 20:12. Performed By: #### T RPHS #### [address] [id number] eGFR FEMALE Canceled Normal [facility] Comment on above: Order Comment: TEST BASIC METABOLIC PANEL WAS CANCELLED, 08/22/2022 20:12 This order is Barbi draw. Retiming 08/22/2022 20:12. Result Comment: CALC ULATIONS OF ESTIMATED GFR ARE PERFORMED USING THE 2020 CKD-EPI STUDY REFIT EQUATION WITHOUT THE RACE VARIABLE FOR THE IDMS-TRACEABLE CREATININE METHODS. https://jasn.asnjournals.org/content/early/ASN.2590029 988 Performed By: #### T RPHS #### [address] [id number] eGFR MALE Canceled Normal [facility] Comment on above: Order Comment: TEST BASIC METABOLIC PANEL WAS CANCELLED, 08/22/2022 20:12 This order is Barbi draw. Retiming 08/22/2022 20:12. Result Comment: CALC ULATIONS OF ESTIMATED GFR ARE PERFORMED USING THE 2020 CKD-EPI STUDY REFIT EQUATION WITHOUT THE RACE VARIABLE FOR THE IDMS-TRACEABLE CREATININE METHODS. https://jasn.asnjournals.org/content/early/ASN.4864010 988 Performed By: #### T RPHS #### [address] [id number] GLUCOSE Canceled Normal [facility] Comment on above: Order Comment: TEST BASIC METABOLIC PANEL WAS CANCELLED, 08/22/2022 20:12 This order is Barbi draw. Retiming 08/22/2022 20:12. Performed By: #### T RPHS #### [address] [id number] POTASSIUM Canceled Normal [facility] Comment on above: Order Comment: TEST BASIC METABOLIC PANEL WAS CANCELLED, 08/22/2022 20:12 This order is Barbi draw. Retiming 08/22/2022 20:12. Performed By: #### T RP #### [address] [id number] SODIUM Canceled Normal [facility] Comment on above: Order Comment: TEST BASIC METABOLIC PANEL WAS CANCELLED, 08/22/2022 20:12 This order is Barbi draw. Retiming 08/22/2022 20:12. Performed By: #### T RP #### [address] [id number] UREA NITROGEN Canceled Normal [facility] Comment on above: Order Comment: TEST BASIC METABOLIC PANEL WAS CANCELLED, 08/22/2022 20:12 This order is Barbi draw. Retiming 08/22/2022 20:12. Performed By: #### T RP #### [address] [id number] CBCon 08-22-2022 HCT Canceled Normal [facility] Comment on above: Order Comment: TEST CBC WAS CANCELLED, 08/22/2022 20:12 This order is for AM draw. Kjjcnimr71/07/2023 20:12. Performed By: #### M G #### [address] [id number] HGB Canceled Normal [facility] Comment on above: Order Comment: TEST CBC WAS CANCELLED, 08/22/2022 20:12 This order is for AM draw. Ouflzyzi97/07/2023 20:12. Performed By: #### M G #### [address] [id number] MCHC Canceled Normal [facility] Comment on above: Order Comment: TEST CBC WAS CANCELLED, 08/22/2022 20:12 This order is for AM draw. Dyvqqibc17/07/2023 20:12. Performed By: #### M G #### [address], [place] [id number] MCV Canceled Normal [facility] Comment on above: Order Comment: TEST CBC WAS CANCELLED, 08/22/2022 20:12 This order is for AM draw. Gjddscpi17/07/2023 20:12. Performed By: #### M G #### [address] [id number] NUCLEATED RBC Canceled Normal [facility] Comment on above: Order Comment: TEST CBC WAS CANCELLED, 08/22/2022 20:12 This order is for AM draw. Tufatgnb84/07/2023 20:12. Performed By: #### M G #### [address] [id number] PLT Canceled Normal [facility] Comment on above: Order Comment: TEST CBC WAS CANCELLED, 08/22/2022 20:12 This order is for AM draw. Pgxqknkz38/07/2023 20:12. Performed By: #### M G #### [address] [id number] RBC Canceled Normal [facility] Comment on above: Order Comment: TEST CBC WAS CANCELLED, 08/22/2022 20:12 This order is for AM draw. Amkyaimx04/07/2023 20:12. Performed By: #### M G #### [address] [id number] RDW-CV Canceled Normal [facility] Comment on above: Order Comment: TEST CBC WAS CANCELLED, 08/22/2022 20:12 This order is for AM draw. Pvtwsmqg15/07/2023 20:12. Performed By: #### M G #### [address] [id number] WBC Canceled Normal [facility] Comment on above: Order Comment: TEST CBC WAS CANCELLED, 08/22/2022 20:12 This order is for AM draw. Faklhbyt64/07/2023 20:12. Performed By: #### M G #### [address], [place] [id number] CBC AND DIFFERENTIALon 08-22 % AUTOMATED IMMATURE GRAN 0.4 % Normal 0.0 - 0.9 [facility] Comment on above: Result Comment: Patricia ture Granulocyte Count (IG) includes promyelocytes, myelocytes and metamyelocytes but does not include bands. Percent differential counts (%) should be interpreted in the context of the absolute cell counts (cells/L). Performed By: #### T RPHS #### [address] [id number] Basophils (Bld) [#/Vol] 0.07 10*3/uL Normal 0.00 - 0.10 [facility] Comment on above: Performed By: #### T RPHS #### [address] [id number] Basophils/100 WBC (Bld) 0.7 % Normal 0.0 - 2.0 [facility] Comment on above: Performed By: #### T RPHS #### [address] [id number] Eosinophils (Bld) [#/Vol] 0.12 10*3/uL Normal 0.00 - 0.70 [facility] Comment on above: Performed By: #### T RPHS #### [address] [id number] Eosinophils/100 WBC (Bld) 1.2 % Normal 0.0 - 6.0 [facility] Comment on above: Performed By: #### T RPHS #### [address] [id number] Erythrocyte distribution width (RBC) [Ratio] 12.4 % Normal 11.5 - 14.5 [facility] Comment on above: Performed By: #### T RPHS #### [address] [id number] Hematocrit (Bld) [Volume fraction] 42.8 % Normal 36.0 - 46.0 [facility] Comment on above: Performed By: #### T RPHS #### [address] [id number] Hemoglobin (Bld) [Mass/Vol] 14.6 g/dL Normal 12.0 - 16.0 [facility] Comment on above: Performed By: #### T RPHS #### [address] [id number] Lymphocytes (Bld) [#/Vol] 2.38 10*3/uL Normal 1.20 - 4.80 [facility] Comment on above: Performed By: #### T RPHS #### [address] [id number] Lymphocytes/100 WBC (Bld) 22.9 % Normal 13.0 - 44.0 [facility] Comment on above: Performed By: #### T RP #### [address] [id number] MCHC (RBC) [Mass/Vol] 34.1 g/dL Normal 32.0 - 36.0 [facility] Comment on above: Performed By: #### T RPHS #### [address] [id number] MCV (RBC) [Entitic vol] 93 fL Normal 80 - 100 [facility] Comment on above: Performed By: #### T RPHS #### [address] [id number] Monocytes (Bld) [#/Vol] 0.80 10*3/uL Normal 0.10 - 1.00 [facility] Comment on above: Performed By: #### T RPHS #### [address] [id number] Monocytes/100 WBC (Bld) 7.7 % Normal 2.0 - 10.0 [facility] Comment on above: Performed By: #### T RPHS #### [address] [id number] Neutrophils (Bld) [#/Vol] 7.00 10*3/uL Normal 1.20 - 7.70 [facility] Comment on above: Performed By: #### T RPHS #### [address] [id number] Neutrophils/100 WBC (Bld) 67.1 % Normal 40.0 - 80.0 [facility] Comment on above: Performed By: #### T RPHS #### [address] [id number] Platelets (Bld) [#/Vol] 285 10*3/uL Normal 150 - 450 [facility] Comment on above: Performed By: #### T RPHS #### [address] [id number] RBC 4.58 x10E12/L Normal 4.00 - 5.20 [facility] Comment on above: Performed By: #### T RPHS #### [address] [id number] WBC (Bld) [#/Vol] 10.4 10*3/uL Normal 4.4 - 11.3 [facility] Comment on above: Performed By: #### T RPHS #### [address] [id number] COMPREHENSIVE PANELon 2022 Albumin [Mass/Vol] 4.3 g/dL Normal 3.4 - 5.0 [facility] Comment on above: Performed By: #### T RPHS #### [address] [id number] ALP [Catalytic activity/Vol] 80 U/L Normal 33 - 110 [facility] Comment on above: Performed By: #### T RPHS #### [address] [id number] ALT [Catalytic activity/Vol] 29 U/L Normal 7 - 45 [facility] Comment on above: Result Comment: Selam ents treated with Sulfasalazine may generate falsely decreased results for ALT. Performed By: #### T RPHS #### [address] [place] [id number] Anion gap [Moles/Vol] 13 mmol/L Normal 10 - 20 [facility] Comment on above: Performed By: #### T RP #### [address] [id number] AST [Catalytic activity/Vol] 22 U/L Normal 9 - 39 [facility] Comment on above: Performed By: #### T RPHS #### [address] [id number] Bilirubin [Mass/Vol] 0.4 mg/dL Normal 0.0 - 1.2 [facility] Comment on above: Performed By: #### T RP #### [address] [id number] Calcium [Mass/Vol] 9.4 mg/dL Normal 8.6 - 10.3 [facility] Comment on above: Performed By: #### T RP #### [address] [id number] Chloride [Moles/Vol] 102 mmol/L Normal 98 - 107 [facility] Comment on above: Performed By: #### T RPHS #### [address] [id number] Creatinine [Mass/Vol] 0.93 mg/dL Normal 0.50 - 1.05 [facility] Comment on above: Performed By: #### T RP #### [address] [id number] GFR/1.73 sq M.predicted among non-blacks MDRD (S/P/Bld) [Vol rate/Area] 73 mL/min/{1.73_m2} Normal >90 [facility] Comment on above: Result Comment: CALC ULATIONS OF ESTIMATED GFR ARE PERFORMED USING THE 2020 CKD-EPI STUDY REFIT EQUATION WITHOUT THE RACE VARIABLE FOR THE IDMS-TRACEABLE CREATININE METHODS. https://jasn.asnjournals.org/content//ASN.1948761 988 Performed By: #### T RPHS #### [address] [id number] Glucose [Mass/Vol] 92 mg/dL Normal 74 - 99 [facility] Comment on above: Performed By: #### T RPHS #### [address] [id number] HCO3 (Bld) [Moles/Vol] 28 mmol/L Normal 21 - 32 [facility] Comment on above: Performed By: #### T RPHS #### [address] [id number] Potassium [Moles/Vol] 3.8 mmol/L Normal 3.5 - 5.3 [facility] Comment on above: Performed By: #### T RPHS #### [address] [id number] Protein [Mass/Vol] 7.8 g/dL Normal 6.4 - 8.2 [facility] Comment on above: Performed By: #### T RPHS #### [address] [id number] Sodium [Moles/Vol] 139 mmol/L Normal 136 - 145 [facility] Comment on above: Performed By: #### T RPHS #### [address] [id number] Urea nitrogen [Mass/Vol] 16 mg/dL Normal 6 - 23 [facility] Comment on above: Performed By: #### T RPHS #### [address] [id number] Complete Blood Count + Diffe rentialon 08-22-2022 Basophils/100 WBC (Bld) 0.7 % 0.0 - 2.0 [facility] Work Phone: Erythrocyte distribution width (RBC) [Ratio] 12.4 % See Below [facility] Work Phone: Comment on above: Reference Range: 11. 5 - 14.5 Hematocrit (Bld) [Volume fraction] 42.8 % See Below [facility] Work Phone: Comment on above: Reference Range: 36. 0 - 46.0 Hemoglobin (Bld) [Mass/Vol] 14.6 g/dL See Below [facility] Work Phone: Comment on above: Reference Range: 12. 0 - 16.0 Lymphocytes/100 WBC (Bld) 22.9 % See Below [facility] Work Phone: Comment on above: Reference Range: 13. 0 - 44.0 MCHC (RBC) [Mass/Vol] 34.1 g/dL See Below [facility] Work Phone: Comment on above: Reference Range: 32. 0 - 36.0 MCV (RBC) [Entitic vol] 93 fL 80 - 100 [facility] Work Phone: Monocytes/100 WBC (Bld) 7.7 % 2.0 - 10.0 [facility] Work Phone: Neutrophils/100 WBC (Bld) 67.1 % See Below [facility] Work Phone: Comment on above: Reference Range: 40. 0 - 80.0 Platelets (Bld) [#/Vol] 285 10*3/uL 150 - 450 [facility] Work Phone: RBC (Bld) [#/Vol] 4.58 {x10E12/L} See Below [facility] Work Phone: Comment on above: Reference Range: 4.0 0 - 5.20 WBC (Bld) [#/Vol] 10.4 10*3/uL 4.4 - 11.3 [facility] Work Phone: Complete Blood Count + Differential 0.07 {x10E9/L} See Below [facility] Work Phone: Comment on above: Reference Range: 0.0 0 - 0.10 Complete Blood Count + Differential 0.12 {x10E9/L} See Below [facility] Work Phone: Comment on above: Reference Range: 0.0 0 - 0.70 Complete Blood Count + Differential 0.80 {x10E9/L} See Below [facility] Work Phone: Comment on above: Reference Range: 0.1 0 - 1.00 Complete Blood Count + Differential 2.38 {x10E9/L} See Below [facility] Work Phone: Comment on above: Reference Range: 1.2 0 - 4.80 Complete Blood Count + Differential 7.00 {x10E9/L} See Below [facility] Work Phone: Comment on above: Reference Range: 1.2 0 - 7.70 Complete Blood Count + Differential 1.2 % 0.0 - 6.0 [facility] Work Phone: Complete Blood Count + Differential 0.4 % 0.0 - 0.9 [facility] Work Phone: Comment on above: Immature Granulocyte [...] You may also be contacted by the [facility] to see if any of [...] or Naproxen (Aleve) can also be used. Uzni-tvs-klpofra cough and cold medicines can be used according to the instructions on the package. Some yxgx-msz-tfaohxk medicines also contain acetaminophen. Make sure you [...] water are not available, use alcohol-based hand extern. Avoid touching your eyes, nose, and mouth [...] 24 wan (more content not included)... Normal [facility] Electrocardiogram 12 Leadon 08-22-2022 Electrocardiogram 12 Lead Ventricular Rate 80 Atrial Rate 80 QRS Duration 132 Q-T Interval 400 QTC Calculation(Bazett) 461 R [place] 74 T [place] -9 QRS Count 14 Q Onset 207 T Offset 407 QTC Fredericia 440 Diagnosis Class Abnormal Diagnosis sinus rhythm with frequent PAC's in a pattern of atrial bigeminy Nonspecific intraventricular block Cannot rule out Anteroseptal infarct , age undetermined T wave abnormality, consider inferior ischemia Abnormal ECG Confirmed by Federico Wing ([id number]) on 08/22/2022 3:25:30 PM Normal [facility] INFLUENZA A/B, COVID 2019 PC R,SYMPTOMATICon 08-22-2022 INFLUENZA A, PCR Not detected Normal Not Detected [facility] Comment on above: Result Comment: Resp iratory virus testing is performed routinely by PCR for Influenza A/B and RSV. Not Detected results do not preclude Influenza A/B or RSV infections since the adequacy of sample collection or low viral burden may impact the clinical sensitivity of this test method. Performed By: #### T [facility] #### [address] [id number] INFLUENZA B, PCR Not detected Normal Not Detected [facility] Comment on above: Result Comment: Resp iratory virus testing is performed routinely by PCR for Influenza A/B and RSV. Not Detected results do not preclude Influenza A/B or RSV infections since the adequacy of sample collection or low viral burden may impact the clinical sensitivity of this test method. Performed By: #### [facility] #### [address] [id number] SARS-CoV-2 (COVID-19) RNA REYNALDO+probe Ql (Unsp spec) Not detected Normal Not Detected [facility] Comment on above: Result Comment: . This test has received FDA Emergency Use Authorization (EUA) and has been verified by [facility]. This test is only authorized for the duration of time that circumstances exist to justify the authorization of the emergency use of in vitro diagnostic tests for the detection of SARS-CoV-2 virus and/or diagnosis of COVID-19 infection under section 564(b)(1) of the Act, 21 U.S.C. 360bbb-3(b)(1), unless the authorization is terminated or revoked sooner. [facility] is certified under CLIA-88 as qualified to perform high complexity testing. Testing is performed in the [facility] laboratory located at [address] [place] [address]. SARS-CoV-2/Flu/RSV Multiplex Test: Fact sheet for providers: https://www.fda.gov/media/970532/download Fact sheet for patients: https://www.fda.gov/media/045204/download Performed By: #### T [facility] #### [address] [phone] Lab Specimen Source Nasal, Nasopharyngeal Normal [facility] Comment on above: Performed By: #### T [facility] #### [address] [phone] INFLUENZA A/B, COVID 2019 PCR,SYMPTOMATIC Not detected See Below [facility] Work Phone: Comment on above: Reference Range: Not Detected.This test has received [facility] Emergency Use Authorization (EUA) and has been verified by [facility]. This test is only authorized for the duration of time that circumstances exist to justify the authorization of the emergency use of in vitro diagnostic tests for the detection of SARS-CoV-2 virus and/or diagnosis of COVID-19 infection under section 564(b)(1) of the Act, 21 U.S.C. 360bbb-3(b)(1), unless the authorization is terminated or revoked sooner. [facility] is certified under CLIA-88 as qualified to perform high complexity testing. Testing is performed in the [facility] laboratory located at [address] [place] [address].SARS-CoV-2/Flu/RSV Multiplex Test: Fact sheet for providers: https://www.fda.gov/media/253704/downloadFact sheet for patients: https://www.fda.gov/media/317804/download Reference Range: Not Detected Respiratory virus testing [...] dye [Mass/Vol] 4.3 g/dL 3.4 - 5.0 [facility] Work Phone: ALP [Catalytic activity/Vol] 80 U/L 33 - 110 [facility] Work Phone: ALT With P-5'-P [Catalytic activity/Vol] 29 U/L 7 - 45 [facility] Work Phone: Comment on above: Patients treated wit h Sulfasalazine may generate falsely decreased results for ALT. Anion gap [Moles/Vol] 13 mmol/L 10 - 20 [facility] Work Phone: AST With P-5'-P [Catalytic activity/Vol] 22 U/L 9 - 39 [facility] Work Phone: Bilirubin [Mass/Vol] 0.4 mg/dL 0.0 - 1.2 -N [facility] Work Phone: Calcium [Mass/Vol] 9.4 mg/dL 8.6 - 10.3 -[facility] Work Phone: Chloride [Moles/Vol] 102 mmol/L 98 - 107 -N orth [facility] [place] Work Phone: CO2 [Moles/Vol] 28 mmol/L 21 - 32 [facility] Work Phone: Creatinine [Mass/Vol] 0.93 mg/dL See Below [facility] Work Phone: Comment on above: Reference Range: 0.5 0 - 1.05 Glucose [Mass/Vol] 92 mg/dL 74 - 99 [facility] Work Phone: Potassium [Moles/Vol] 3.8 mmol/L 3.5 - 5.3 [facility] Work Phone: Protein [Mass/Vol] 7.8 g/dL 6.4 - 8.2 [facility] Work Phone: Sodium [Moles/Vol] 139 mmol/L 136 - 145 [facility] Work Phone: Urea nitrogen [Mass/Vol] 16 mg/dL 6 - 23 [facility] Work Phone: Laboratory - Coagulationon 0 08-22-2022 INR Coag (PPP) [Relative time] 1.1 {INR} 0.9 - 1.1 [facility] Work Phone: PT Coag (PPP) [Time] 12.6 s 9.8 - 13.4 [facility] Work Phone: MAGNESIUMon 08-22-2022 Magnesium [Mass/Vol] 2.05 mg/dL Normal 1.60 - 2.40 [facility] Comment on above: Performed By: #### M G #### [address] [phone] Magnesium, Serumon Magnesium [Mass/Vol] 2.05 mg/dL See Below [facility] Work Phone: Comment on above: Reference Range: 1.6 0 - 2.40 No Panel Informationon 08-22 73 {mL/min/1.73m2} >90 [facility] Work Phone: Comment on above: CALCULATIONS OF LINDSEY MATED GFR ARE PERFORMED USING THE 2020 CKD-EPI STUDY REFIT EQUATION WITHOUT THE RACE VARIABLE FOR THE IDMS-TRACEABLE CREATININE METHODS.https://jasn.asnjournals.org/content//ASN .7352283857 https://UHMUSEXPRDWE B01:808 0/museanalypts/museweb.dll?R etrieveTestByDateTime?Patie fuRD=[id number]&Date= 023&Time=14%3a40%3a33%3a00& TestType=ECG&Site=11&Output Type=PDF&Ext=PDF [facility] [place] Work Phone: sinus rhythm with fr equent PAC's in a pattern of atrial bigeminy [facility] [place] Work Phone: [phone] Abnormal [facility] [place] Work Phone: [phone] [facility] [place] Work Phone: [phone] [facility] [place] Work Phone: [phone] [facility] [place] Work Phone: [phone] [facility] [place] Work Phone: [phone] [facility] [place] Work Phone: [phone] [facility] [place] Work Phone: [phone] [facility] [place] Work Phone: [phone] [facility] [place] Work Phone: [phone] [facility] [place] Work Phone: [phone] [facility] [place] Work Phone: Order Reconciliationon [...] Aspirin Low Dose 81 orally once a [id number] Aspirin Chewable Tablet, ChewableDOSE = 81 mg [...] milliliter(s) injectable once a day, As Needed [id number] Reviewed and Held ferrous sulfate 200 mg (65 mg elemental iron) oral tablet 2 tab(s) orally once a [id number] Reviewed and Held metoprolol succinate 25 mg oral tablet, extended release 1 tab(s) orally once a [id number] Reviewed and Held Multiple Vitamins oral tablet 1 tab(s) orally once a [id number] Reviewed and Held omeprazole 40 mg oral delayed release capsule 1 cap(s) orally once a day 22-Aug-2022 Pantoprazole Enteric Coated Tablet (PROTONIX)DOSE = 40 mg Oral Dailyomeprazole 40 mg oral delayed release capsule continued as the inpatient order Pantoprazole sertraline 50 mg oral tablet 1 tab(s) orally once a [id number] Sertraline Tablet (ZOLOFT)DOSE = 50 mg Oral Dailysertraline 50 mg oral tablet continued as the inpatient order Sertraline solifenacin 5 mg oral tablet 1 tab(s) orally once a [id number] Reviewed and Held Vitamin D3 1000 intl [...] Every 12 HoursClinician Notes: One now then 00 and 2099 Metoprolol Succinate Extended Release Tablet, Extended Release (TOPROL-XL)DOSE = 25 mg Oral At BedtimeClinician Notes: hold for HR less than 50 BPM or SBP less than 90 mmhg Sodium Chloride 0.9% Injectable Flush via Peripheral LineVolume = 10 mL IntraVenous Flush Every 8 Hours and as Needed Normal [facility] PT/INRon 08-22-2022 PT Coag (PPP) [Time] 12.6 s Normal 9.8 - 13.4 [facility] Comment on above: Performed By: #### T [facility] #### [address] [id number] PT, INR 1.1 Normal 0.9 - 1.1 [facility] Comment on above: Performed By: #### T [facility] #### [address] [phone] Provider Note - ED v3on 03 Provider [...] results: Troponin I, High Sensitivity Trending View [id number] 16:27:00 22-Aug-2022 15:09:00 Troponin I, High Sensitivity3 [...] and has been verified by [facility]. This test is only authorized for the duration of time that circumsta Complete Blood Count + Differential 22-Aug-2022 15:09:00 ResultValue White Blood Cell Count 10.4 Red Blood Cell Count 4.58 HGB 14.6 HCT 42.8 MCV 93 MCHC 34.1 PLT 285 RDW-CV 12.4 Neutrophil % 67.1 Immature Granulocytes % 0.4 Lymphocyt (more content not included)... Normal [facility] Radiologyon 08-22-2022 XR Chest Single view Normal [facility] Work Phone: TROPONIN I, HIGH SENSITIVITY on 08-22-2022 TROPONIN I, HIGH SENSITIVITY 3 ng/L Normal 0 - 13 [facility] Comment on above: Result Comment: . [...] performed using a different testing methodology at [facility] than at [facility]. Direct result comparisons should only be made within the same method. Performed By: #### T [facility] #### [address] [phone] Tropinin I.cardiac panel High sensitivity method 3 ng/L 0 - 13 [facility] Work Phone: Comment on above: .Less than [...] performed using a different testing methodology at [facility] than at other [facility]. Direct result comparisons should only be made within the same method. TROPONIN I, HIGH SENSITIVITY 3 ng/L Normal 0 - 13 [facility] Comment on above: Result Comment: . [...] performed using a different testing methodology at [facility] than at other [facility]. Direct result comparisons should only be made within the same method. Performed By: #### M G #### [address] [id number] TROPONIN I, HIGH SENSITIVITY 3 ng/L Normal 0 - 13 [facility] Comment on above: Result Comment: . [...] performed using a different testing methodology at [facility] than at other [facility]. Direct result comparisons should only be made within the same method. Performed By: #### T [facility] #### [address] [phone] Tropinin I.cardiac panel High sensitivity method 3 ng/L 0 - 13 [facility] a [facility] Work Phone: Comment on above: .Less than [...] performed using a different testing methodology at [facility] than at other [facility]. Direct result comparisons should only be made within the same method. Tropinin I.cardiac panel High sensitivity method 3 ng/L 0 - 13 -[facility] Work Phone: Comment on above: .Less than [...] performed using a different testing methodology at [facility] than at other [facility]. Direct result comparisons should only be [...] obeys commands Best Verbal Response: (V5) oriented Kyle Score: 15 Allergies: yes Patient has homicidal [...] History: Past Medical History Reviewedyes Electronic Signatures: Woehrman, Michelle (RN) (Signed 22-Aug-2022 14:49) Entered: Risk Screens, Pain, ABCD, Travel History, Chart Review, Scores, Past Medical History Authored: Quick Triage, Risk Screens, Pain, ABCD, Travel History, Chart Review, Scores, Past Medical History Last Updated: 22-Aug-2022 14:49 by Michelle Herrera) [facility] Office Visit (Cardiology)on 08-18-2022 Follow-up visit [...] Use Screening; Status:Complete; Done: 18Aug2022 Patient Instructions [email or web address] PLEASE BRING ALL MEDICATIONS IN ORIGINAL BOTTLES [...] for the new patient portal platform through [facility]. If you have not received an invite [...] the decision made by me. 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 (more content not included)... Normal [facility] Tobacco Screening.on 023 Adult depression screening assessment No [facility] [address] [facility] Work Phone: Fall risk assessment a) No falls within the last year [facility] [address] DO Work Phone: Tobacco use status [facility]PH[facility] b) No [facility] [address] DO Work Phone: CARDIAC ELIA 3-6on 3 CK [Catalytic activity/Vol] 110 U/L Normal 26-192 [facility] Comment on above: Performed By: #### B MP, MG #### [facility] [address] [place], [place] [address] Dr. Betsy Velazquez CK.MB [Mass/Vol] 1.74 ng/mL Normal <=3.60 [facility] Comment on above: Performed By: #### B MP, MG #### [facility] [address] [place], [place] [address] Dr. Betsy Velazquez HSTROP 6.3 pg/mL Normal 4.0-51.3 [facility] Comment on above: Result Comment: CUT- OFF POINTS HAVE BEEN ESTABLISHED BASED ON THE FOURTH UNIVERSAL DEFINITIONS OF MYOCARDIAL INFARCTION. THE UPPER REFERENCE LIMIT (URL) OF TROPONIN, DEFINED THE 99TH PERCENTILE OF cTnI DISTRIBUTION IN A REFERENCE POPULATION, HAS BEEN CONFIRMED THE DECISION THRESHOLD FOR MA DIAGNOSIS. Performed By: #### B MP, MG #### [facility] [address] [place] [address] Dr. Betsy Velazquez CK [Catalytic activity/Vol] 123 U/L Normal 26-192 [facility] Comment on above: Performed By: #### C MREP #### [facility] [address] [place] [address] Dr. Betsy Velazquez CK.MB [Mass/Vol] 1.90 ng/mL Normal <=3.60 [facility] Comment on above: Performed By: #### C MREP #### [facility] [address] [place] [address] Dr. Betsy Velazquez HSTROP 5.9 pg/mL Normal 4.0-51.3 [facility] Comment on above: Result Comment: CUT- OFF POINTS HAVE BEEN ESTABLISHED BASED ON THE FOURTH UNIVERSAL DEFINITIONS OF MYOCARDIAL INFARCTION. THE UPPER REFERENCE LIMIT (URL) OF TROPONIN, DEFINED THE 99TH PERCENTILE OF cTnI DISTRIBUTION IN A REFERENCE POPULATION, HAS BEEN CONFIRMED THE DECISION THRESHOLD FOR MA DIAGNOSIS. Performed By: #### C MREP #### [facility] [address] [place] [address] Dr. Betsy Velazquez CBC AUTO DIFFon 06-29-2022 BASO # 0.1 103/ul Normal 0.0-0.1 [facility] Comment on above: Performed By: #### C BC #### [facility] [address] [place] [address] Dr. Betsy Velazquez Basophils/100 WBC (Bld) 0.7 % Normal 0.2-2.0 [facility] Comment on above: Performed By: #### C BC #### [facility] [address] [place] [address] Dr. Betsy Velazquez EO # 0.1 103/ul Normal 0.0-0.7 [facility] Comment on above: Performed By: #### C BC #### [facility] [address] [place] [address] Dr. Betsy Velazquez Eosinophils/100 WBC (Bld) 1.4 % Normal 0.9-7.0 [facility] Comment on above: Performed By: #### C BC #### [facility] [address] [place] [address] Dr. Betsy Velazquez Erythrocyte distribution width (RBC) [Ratio] 12.8 % Normal 11.0-15.0 [facility] Comment on above: Performed By: #### C BC #### [facility] [address] [place] [address] Dr. Betsy Velazquez Hematocrit (Bld) [Volume fraction] 41.4 % Normal 36.0-48.0 [facility] Comment on above: Performed By: #### C BC #### [facility] [address] [place] [address] Dr. Betsy Velazquez Hemoglobin (Bld) [Mass/Vol] 13.4 g/dL Normal 12.0-16.0 [facility] Comment on above: Performed By: #### C BC #### [facility] [address] [place] [address] Dr. Betsy Velazquez IG # 0.04 10e3/ul Critically high 0.00-0.03 [facility] Comment on above: Performed By: #### C BC #### [facility] [address] [place] [address] Dr. Betsy Velazquez IG % 0.4 % Normal 0.0-0.5 [facility] Comment on above: Performed By: #### C BC #### [facility] [address] [place] [address] Dr. Betsy Velazquez LYMPH # 2.6 103/ul Normal 1.2-3.8 [facility] Comment on above: Performed By: #### C BC #### [facility] [address] [place] [address] Dr. Betsy Velazquez Lymphocytes/100 WBC (Bld) 26.5 % Normal 20.5-60.0 [facility] Comment on above: Performed By: #### C BC #### [facility] [address] [place] [address] Dr. Betsy Velazquez MANUAL DIFF REQ NO Normal [facility] Comment on above: Performed By: #### C BC #### [facility] [address] [place] [address] Dr. Betsy Velazquez MCH (RBC) [Entitic mass] 31.5 pg Normal 26.7-34.0 [facility] Comment on above: Performed By: #### C BC #### [facility] [address] [place] [address] Dr. Betsy Velazquez MCHC (RBC) [Mass/Vol] 32.4 g/dL Normal 29.9-35.2 [facility] Comment on above: Performed By: #### C BC #### [facility] [address] [place] [address] Dr. Betsy Velazquez MCV (RBC) [Entitic vol] 97.2 fL Normal 81.0-99.0 [facility] Comment on above: Performed By: #### C BC #### [facility] [address] [place] [address] Dr. Betsy Velazquez MONO # 0.8 103/ul Normal 0.3-0.8 [facility] Comment on above: Performed By: #### C BC #### [facility] [address] [place] [address] Dr. Betsy Velazquez Monocytes/100 WBC (Bld) 7.6 % Normal 1.7-12.0 [facility] Comment on above: Performed By: #### C BC #### [facility] [address] [place] [address] Dr. Betsy Velazquez NEUT # 6.3 103/ul Normal 1.4-6.5 [facility] Comment on above: Performed By: #### C BC #### [facility] [address] [place] [address] Dr. Betsy Velazquez Neutrophils/100 WBC (Bld) 63.4 % Normal 43.0-75.0 [facility] Comment on above: Performed By: #### C BC #### [facility] [address] [place] [address] Dr. Betsy Velazquez Platelet mean volume (Bld) [Entitic vol] 11.3 fL Normal 9.5-13.5 [facility] Comment on above: Performed By: #### C BC #### [facility] [address] [place] [address] Dr. Betsy Velazquez PLT 258 103/ul Normal 150-450 [facility] Comment on above: Performed By: #### C BC #### [facility] [address] [place] [address] Dr. Betsy Velazquez RBC 4.26 106/ul Normal 4.20-5.40 [facility] Comment on above: Performed By: #### C BC #### [facility] [address] [place] [address] Dr. Betsy Velazquez WBC 10.0 103/ul Normal 4.0-11.0 [facility] Comment on above: Performed By: #### C BC #### [facility] [address] [place] [address] Dr. Betsy Velazquez Covid-19 PCR (CVDTB)on 06-18 SARS-CoV-2 (COVID-19) RNA REYNALDO+probe Ql (Unsp spec) Not detected Normal NOT DETECTED [facility] Comment on above: Result Comment: [...] for this test is supported by the [place] of Health and Human Service's declaration that [...] longer be used). Performed By: #### C VDTBH #### [facility] [address] [place] [address] [address] Betsy Velazquez ECHO LIMITED STUDYon 023 ECHO LIMITED STUDY Patient: SARAH HANNA Exam Date: 06/29/2022 : 1970 Gender:F Ordering : BONY SOLARES Admission #: [id number] Family : KAYLA DENT Order #: [id number] CLICK HERE TO VIEW EXAM ECHOCARDIOGRAM REPORT [...] Martinez M.D. on 06/30/2022 at 13:52 Normal [facility] GLYCOHEMOGLOBIN A1Con 2022 ADA RECOMMENDATION SEE BELOW Normal [facility] Comment on above: Result Comment: ADA RECOMMENDED LIMIT 4.0 - 6.0 ADA THERAPEUTIC TARGET < 7.0 ACTION SUGGESTED > 7.0 Performed By: #### B MP, MG #### [facility] [address] [place] [address] Dr. Betsy Velazquez Glucose [Mass/Vol] 120 mg/dL Normal [facility] Comment on above: Performed By: #### B MP, MG #### [facility] [address] [place] [address] Dr. Betsy Velazquez HbA1c (Bld) [Mass fraction] 5.8 % Normal 4.5-6.2 [facility] Comment on above: Performed By: #### B MP, MG #### [facility] [address] [place] [address] Dr. Betsy Velazquez LIPID PROFILEon 06-29-2022 CHOL-HDL RATIO NORM SEE BELOW Normal [facility] Comment on above: Result Comment: 3.3 - 4.4 LOW RISK 4.4 - 7.1 AVERAGE RISK 7.1 - 11.0 MODERATE RISK >11.0 HIGH RISK Performed By: #### L IPID, TSH #### [facility] [address] [place] [address] Dr. Betsy Velazquez Cholesterol [Mass/Vol] 168 mg/dL Normal <=200 [facility] Comment on above: Performed By: #### L IPID, TSH #### [facility] [address] [place] [address] Dr. Betsy Velazquez Cholesterol in HDL [Mass/Vol] 55 mg/dL Normal 40-60 [facility] Comment on above: Performed By: #### L IPID, TSH #### [facility] [address] [place] [address] Dr. Betsy Velazquez Cholesterol in LDL [Mass/Vol] 97.0 mg/dL Normal [facility] Comment on above: Performed By: #### L IPID, TSH #### [facility] [address] [place] [address] [address] Betsy Velazquez Cholesterol.total/Ch olesterol in HDL [Mass ratio] 3.1 {ratio} Normal [facility] Comment on above: Performed By: #### L IPID, TSH #### [facility] [address] [place] [address] [address] Betsy Velazquez HDL NORMAL > or = 60 mg/dl - LO W CARDIOVASCULAR RISK <40 mg/dl - HIGH CARDIOVASCULAR RISK Normal [facility] Comment on above: Performed By: #### L IPID, TSH #### [facility] [address] [place] [address] Dr. Betsy Velazquez LDL CALC NORMAL SEE BELOW Normal [facility] Comment on above: Result Comment: <100 mg/dl OPTIMAL 100 - 129 mg/dl NEAR OR ABOVE OPTIMAL 130 - 159 mg/dl BORDERLINE HIGH 160 - 189 mg/dl HIGH >190 mg/dl VERY HIGH Performed By: #### L IPID, TSH #### [facility] [address] [place] [address] Dr. Betsy Velazquez Triglyceride [Mass/Vol] 80 mg/dL Normal <=150 [facility] Comment on above: Performed By: #### L IPID, TSH #### [facility] [address] [place] [address] Dr. Betsy Velazquez VLDL CALC 16.0 mg/dL Normal [facility] Comment on above: Performed By: #### L IPID, TSH #### [facility] [address] [place] [address] Dr. Betsy Velazquez MAGNESIUMon 06-29-2022 Magnesium [Mass/Vol] 2.1 mg/dL Normal 1.8-2.4 [facility] Comment on above: Performed By: #### B MP, MG #### [facility] [address] [place] [address] Dr. Betsy Velazquez PROF CHEM 8 (BAS METB)on Anion gap [Moles/Vol] 10.8 mmol/L Normal [facility] Comment on above: Performed By: #### B MP, MG #### [facility] [address] [address] [address] Betsy Velazquez Calcium [Mass/Vol] 9.0 mg/dL Normal 8.5-10.1 [facility] Comment on above: Performed By: #### B MP, MG #### [facility] [address] [address] [address] Betsy Velazquez Chloride [Moles/Vol] 104 mmol/L Normal 98-107 [facility] Comment on above: Performed By: #### B MP, MG #### [facility] [address] [place] [address] Dr. Betsy Velazquez CO2 [Moles/Vol] 28.1 mmol/L Normal 21.0-32.0 [facility] Comment on above: Performed By: #### B MP, MG #### [facility] [address] [place] [address] Dr. Betsy Velazquez Creatinine [Mass/Vol] 0.86 mg/dL Normal 0.55-1.02 [facility] Comment on above: Performed By: #### B MP, MG #### [facility] [address] [place] [address] Dr. Betsy Velazquez EGFR-AF GUAMANIAN >60 Normal >=60 [facility] Comment on above: Performed By: #### B MP, MG #### [facility] [address] [place] [address] Dr. Betsy Velazquez EGFR-NON AF GUAMANIAN >60 Normal >=60 [facility] Comment on above: Performed By: #### B MP, MG #### [facility] [address] [place] [address] Dr. Betsy Velazquez Glucose [Mass/Vol] 111 mg/dL Critically high 74-106 [facility] Comment on above: Performed By: #### B MP, MG #### [facility] [address] [place] [address] Dr. Betsy Velazquez Potassium [Moles/Vol] 3.9 mmol/L Normal 3.5-5.1 [facility] Comment on above: Performed By: #### B MP, MG #### [facility] [address] [address] [address] Betsy Velazquez Sodium [Moles/Vol] 139 mmol/L Normal 136-145 [facility] Comment on above: Performed By: #### B MP, MG #### [facility] [address] [address] [address] Betsy Velazquez Urea nitrogen [Mass/Vol] 18.0 mg/dL Normal 7.0-18.0 [facility] Comment on above: Performed By: #### B MP, MG #### [facility] [address] [address] [address] Betsy Velazquez Urea nitrogen/Creatinine [Mass ratio] 20.9 mg/mg Normal [facility] Comment on above: Performed By: #### B MP, MG #### [facility] [address] [place] [address] Dr. Betsy Velazquez TSHon 06-29-2022 TSH 1.981 uIU/mL Normal 0.358-3.740 [facility] Comment on above: Performed By: #### L IPID, TSH #### [facility] [address] [place] [address] Dr. Betsy Velazquez XR CHEST 1 Von [...] MARKO GARY Date: 2022-06-28 22:50 Normal [facility] CARDIAC ELIA ADMITon 023 CK [Catalytic activity/Vol] 149 U/L Normal 26-192 [facility] Comment on above: Performed By: #### B MP, MG #### [facility] [address] [place] [address] Dr. Betsy Velazquez CK.MB [Mass/Vol] 2.34 ng/mL Normal <=3.60 [facility] Comment on above: Performed By: #### B MP, MG #### [facility] [address] [place] [address] Dr. Betsy Velazquez HSTROP 5.5 pg/mL Normal 4.0-51.3 [facility] Comment on above: Result Comment: CUT- OFF POINTS HAVE BEEN ESTABLISHED BASED ON THE FOURTH UNIVERSAL DEFINITIONS OF MYOCARDIAL INFARCTION. THE UPPER REFERENCE LIMIT (URL) OF TROPONIN, DEFINED THE 99TH PERCENTILE OF cTnI DISTRIBUTION IN A REFERENCE POPULATION, HAS BEEN CONFIRMED THE DECISION THRESHOLD FOR MA DIAGNOSIS. Performed By: #### B MP, MG #### [facility] [address] [place] [address] Dr. Betsy Velazquez CHRISTOPHER 50 ng/mL Normal 9-82 [facility] Comment on above: Performed By: #### B MP, MG #### [facility] [address] [place] [address] Dr. Betsy Velazquez CBC AUTO DIFFon 06-28-2022 BASO # 0.1 103/ul Normal 0.0-0.1 [facility] Comment on above: Performed By: #### C BC #### [facility] [address] [place] [address] Dr. Betsy Velazquez Basophils/100 WBC (Bld) 0.6 % Normal 0.2-2.0 [facility] Comment on above: Performed By: #### C BC #### [facility] [address] [place] [address] Dr. Betsy Velazquez EO # 0.2 103/ul Normal 0.0-0.7 [facility] Comment on above: Performed By: #### C BC #### [facility] [address] [place] [address] Dr. Betsy Velazquez Eosinophils/100 WBC (Bld) 2.0 % Normal 0.9-7.0 [facility] Comment on above: Performed By: #### C BC #### [facility] [address] [place] [address] Dr. Betsy Velazquez Erythrocyte distribution width (RBC) [Ratio] 12.8 % Normal 11.0-15.0 [facility] Comment on above: Performed By: #### C BC #### [facility] [address] [place] [address] Dr. Betsy Velaqzuez Hematocrit (Bld) [Volume fraction] 41.8 % Normal 36.0-48.0 [facility] Comment on above: Performed By: #### C BC #### [facility] [address] [place] [address] Dr. Betsy Velazquez Hemoglobin (Bld) [Mass/Vol] 13.8 g/dL Normal 12.0-16.0 [facility] Comment on above: Performed By: #### C BC #### [facility] [address] [place] [address] Dr. Betsy Velazquez IG # 0.04 10e3/ul Critically high 0.00-0.03 [facility] Comment on above: Performed By: #### C BC #### [facility] [address] [place] [address] Dr. Betsy Velazquez IG % 0.3 % Normal 0.0-0.5 [facility] Comment on above: Performed By: #### C BC #### [facility] [address] [place] [address] Dr. Betsy Velazquez LYMPH # 3.1 103/ul Normal 1.2-3.8 [facility] Comment on above: Performed By: #### C BC #### [facility] [address] [place] [address] Dr. Betsy Velazquez Lymphocytes/100 WBC (Bld) 26.9 % Normal 20.5-60.0 [facility] Comment on above: Performed By: #### C BC #### [facility] [address] [place] [address] Dr. Betsy Velazquez MANUAL DIFF REQ NO Normal [facility] Comment on above: Performed By: #### C BC #### [facility] [address] [place] [address] Dr. Betsy Velazquez MCH (RBC) [Entitic mass] 31.4 pg Normal 26.7-34.0 [facility] Comment on above: Performed By: #### C BC #### [facility] [address] [place] [address] Dr. Betsy Velazquez MCHC (RBC) [Mass/Vol] 33.0 g/dL Normal 29.9-35.2 [facility] Comment on above: Performed By: #### C BC #### [facility] [address] [place] [address] Dr. Betsy Velazquez MCV (RBC) [Entitic vol] 95.2 fL Normal 81.0-99.0 [facility] Comment on above: Performed By: #### C BC #### [facility] [address] [place] [address] Dr. Betsy Velazquez MONO # 0.9 103/ul Critically high 0.3-0.8 [facility] Comment on above: Performed By: #### C BC #### [facility] [address] [place] [address] Dr. Betsy Velazquez Monocytes/100 WBC (Bld) 7.8 % Normal 1.7-12.0 [facility] Comment on above: Performed By: #### C BC #### [facility] [address] [place] [address] Dr. Betsy Velazquez NEUT # 7.2 103/ul Critically high 1.4-6.5 [facility] Comment on above: Performed By: #### C BC #### [facility] [address] [place] [address] Dr. Betsy Velazquez Neutrophils/100 WBC (Bld) 62.4 % Normal 43.0-75.0 [facility] Comment on above: Performed By: #### C BC #### [facility] [address] [place] [address] Dr. Betsy Velazquez Platelet mean volume (Bld) [Entitic vol] 11.1 fL Normal 9.5-13.5 [facility] Comment on above: Performed By: #### C BC #### [facility] [address] [place] [address] Dr. Betsy Velazquez PLT 272 103/ul Normal 150-450 [facility] Comment on above: Performed By: #### C BC #### [facility] [address] [place] [address] Dr. Betsy Velazquez RBC 4.39 106/ul Normal 4.20-5.40 [facility] Comment on above: Performed By: #### C BC #### [facility] [address] [place] [address] Dr. Betsy Velazquez WBC 11.6 103/ul Critically high 4.0-11.0 [facility] Comment on above: Performed By: #### C BC #### [facility] [address] [place] [address] Dr. Betsy Velazquez PROF CHEM 8 (BAS METB)on Anion gap [Moles/Vol] 12.8 mmol/L Normal [facility] Comment on above: Performed By: #### B MP, MG #### [facility] [address] [place] [address] Dr. Betsy Velazquez Calcium [Mass/Vol] 9.4 mg/dL Normal 8.5-10.1 [facility] Comment on above: Performed By: #### B MP, MG #### [facility] [address] [place] [address] Dr. Betsy Velazquez Chloride [Moles/Vol] 102 mmol/L Normal 98-107 [facility] Comment on above: Performed By: #### B MP, MG #### [facility] [address] [place] [address] Dr. Betsy Velazquez CO2 [Moles/Vol] 25.7 mmol/L Normal 21.0-32.0 [facility] Comment on above: Performed By: #### B MP, MG #### [facility] [address] [place] [address] Dr. Betsy Velazquez Creatinine [Mass/Vol] 1.03 mg/dL Critically high 0.55-1.02 [facility] Comment on above: Performed By: #### B MP, MG #### [facility] [address] [place] [address] Dr. Betsy Velazquez EGFR-AF GUAMANIAN >60 Normal >=60 [facility] Comment on above: Performed By: #### B MP, MG #### [facility] [address] [place] [address] Dr. Betsy Velazquez EGFR-NON AF GUAMANIAN 56 mL/min/1.73m2 Critically low >=60 [facility] Comment on above: Performed By: #### B MP, MG #### [facility] [address] [address] [address] Betsy Velazquez Glucose [Mass/Vol] 93 mg/dL Normal 74-106 [facility] Comment on above: Performed By: #### B MP, MG #### [facility] [address] [address] [address] Betsy Velazquez Potassium [Moles/Vol] 3.5 mmol/L Normal 3.5-5.1 [facility] Comment on above: Performed By: #### B MP, MG #### [facility] [address] [place] [address] Dr. Betsy Velazquez Sodium [Moles/Vol] 137 mmol/L Normal 136-145 [facility] Comment on above: Performed By: #### B MP, MG #### [facility] [address] [place] [address] Dr. Betsy Velazquez Urea nitrogen [Mass/Vol] 21.0 mg/dL Critically high 7.0-18.0 [facility] Comment on above: Performed By: #### B MP, MG #### [facility] [address] [place] [address] Dr. Betsy Velazquez Urea nitrogen/Creatinine [Mass ratio] 20.4 mg/mg Normal [facility] Comment on above: Performed By: #### B MP, MG #### [facility] [address] [place] [address] Dr. Betsy Velazquez DIGITAL DIAG MAMM BILAT WITH TOMOon 12-28-2021 DIGITAL DIAG MAMM BILAT WITH MASON Patient Name: RASHEEDA NICHOLE STUDY: DIGITAL DIAG MAMM BILAT WITH MASON; BREAST ULTRASOUND; 12/28/2021 9:31 am; 12/28/2021 9:59 am ACCESSION NUMBER(S): [id number]; [id number] ORDERING CLINICIAN: BARBARA HARRY INDICATION: breast lump [...] any future breast imaging appointments, please call [phone] ([phone]). Electronically signed by: ELIA RON MD Normal [facility] Radiologyon 12-28-2021 MG Breast Diagnostic Normal MP-T [facility] Work Phone: ULTRASOUND LIMITED BREASTon 12-28-2021 ULTRASOUND LIMITED BREAST Patient Name: RASHEEDA NICHOLE STUDY: DIGITAL DIAG MAMM BILAT WITH MASON; BREAST ULTRASOUND; 12/28/2021 9:31 am; 12/28/2021 9:59 am ACCESSION NUMBER(S): [id number]; [id number] ORDERING CLINICIAN: BARBARA HARRY INDICATION: breast lump [...] any future breast imaging appointments, please call [phone] ([phone]). Electronically signed by: ELIA RON MD Normal [facility] Ultrasound Limited [place] 12-28-2021 MG Breast Screening Normal MP-Tr [facility] Work Phone: Office Visit (Cardiology)on 12-21-2021 Follow-up visit Diagnoses/Problems Assessed Obesity (BMI 35.0-39.9 without comorbidity) (278.00) (E66.9) Orders Obesity (BMI 35.0-39.9 without comorbidity) Healthy Weight Tips; Status:Complete - Retrospective Authorization; Done: [id number] Some eating tips that can help you lose weight.; Status:Complete - Retrospective Authorization; Done: [id number] Patient Instructions FOLLOW UP NEEDED ONLY YOUR [...] further questions arise, Sincerely, Samara Roe MD [facility] Surgical History Problems History of Carpal tunnel surgery History of section 1990, 1992, 1995 History of Cholecystectomy 2017 History of Tubal ligation bilateral 1995 History of [place] tooth extraction Past Medical History Problems Colon [...] UT) O (more content not included)... Normal [facility] Tobacco Screening.on 022 Adult depression screening assessment No [facility] n 127 DO Work Phone: Tobacco use status CPHS b) No [facility] n 127 DO Work Phone: Office Visiton 11-22-2021 Follow-up visit Diagnoses/Problems Screening breast examination (V76.10) (Z12.39) Breast lump on right side at 12 o'clock position (611.72) (N63.15) Orders Breast lump on right side at 12 o'clock position Mamm Digital Diagnostic Mammography Unilateral Right; Status:Active; Requested for:30Nov2021; Patient is scheduled for 11-30-21 @ 1:30pm at [facility]. Thank you. Laterality : Right Radiologist to Determine Optimal Study : Y What are the patient's signs and symptoms? : breast lump Screening breast examination Mamm - Screening Mammogram; Status:Active; Requested for:22Nov2021; Patient is scheduled at [facility] on 11-30-21. Thank you. Indications [...] a) No falls within the last year [facility] [employer] Work Phone: Tobacco use status CPHS b) No [facility] [employer] Work Phone: PHQ-2 [facility] 07-12-2021 Adult depression screening assessment Negative [facility] Work [facility]: Fall risk assessment a) No falls within the last year [facility] [employer] Work Phone: Tobacco use status [facility]S b) No [facility] Work Phone: Tobacco Screening.on 022 Fall risk assessment a) No falls within the last year [facility] Work Phone: Tobacco use status CPHS b) No [facility] DO Work Phone: Laboratory - Microbiology an d Antimicrobial susceptibilityon 06-14-2021 SARS-CoV-2 (COVID-19) RNA REYNALDO+probe Ql (Unsp spec) Pass Normal Pass [facility] Work Phone: No Panel Informationon 12-28 -[address] [facility] Work Phone: YES Normal [facility] Work Phone: Unknown Normal [facility] Work Phone: Not detected Normal Not Detected [facility] Work Phone: Comment on above: This test result jakob uld be correlated with clinical presentations and medical history by a healthcare provider to determine its clinical significance.This assay was performed by a reverse transcriptase real-time polymerase chain reaction (rt PCR) method on the [employer] system. This test has been authorized only [...] terminated or revoked sooner. Nasal Normal [facility] Work Phone: Cardiac Stress Teston 2020 Cardiac Stress Test Please click on the link to view the study images Normal [facility] n 127 DO Work Phone: Cardiac Stress Test MP-No rth [facility] n 127 DO Work Phone: Echocardiogramon 06-07-2021 Echocardiography Please click on the link to view the study images Normal [facility] n 127 DO Work Phone: Hepatic Function Panelon Albumin BCP dye [Mass/Vol] 3.9 g/dL 3.4 - 5.0 [facility] n 127 DO Work Phone: ALP [Catalytic activity/Vol] 71 U/L 33 - 110 [facility] n [facility] DO Work Phone: ALT With P-5'-P [Catalytic activity/Vol] 26 U/L 7 - 45 [address] [address] DO Work Phone: Comment on above: Patients treated wit h Sulfasalazine may generate falsely decreased results for ALT. AST With P-5'-P [Catalytic activity/Vol] 20 U/L 9 - 39 [address] [address] DO Work Phone: Bilirubin [Mass/Vol] 0.4 mg/dL 0.0 - 1.2 [address] [address] DO Work Phone: Bilirubin.direct [Mass/Vol] 0.1 mg/dL 0.0 - 0.3 [address] [address] DO Work Phone: Protein [Mass/Vol] 7.2 g/dL 6.4 - 8.2 [address] [place] [address] DO Work Phone: Laboratory - Chemistry and C hemistry - challengeon 05-17-2021 Anion gap [Moles/Vol] 14 mmol/L 10 - 20 [address] [place] [address] DO Work Phone: Calcium [Mass/Vol] 9.1 mg/dL 8.6 - 10.3 [facility] n [facility] DO Work Phone: [phone] Chloride [Moles/Vol] 102 mmol/L 98 - 107 [facility] n [facility] DO Work Phone: CO2 [Moles/Vol] 27 mmol/L 21 - 32 [address] [address] DO Work Phone: Creatinine [Mass/Vol] 0.81 mg/dL See Below [address] [place] [address] DO Work Phone: Comment on above: Reference Range: 0.5 0 - 1.05 Glucose [Mass/Vol] 93 mg/dL 74 - 99 [address] [place] [address] DO Work Phone: Potassium [Moles/Vol] 4.2 mmol/L 3.5 - 5.3 [facility] n 127 DO Work Phone: Sodium [Moles/Vol] 139 mmol/L 136 - 145 [facility] n 127 DO Work Phone: Urea nitrogen [Mass/Vol] 13 mg/dL 6 - 23 [facility] n 127 DO Work Phone: Laboratory - Hematology and Cell countson 05-17-2021 Erythrocyte distribution width (RBC) [Ratio] 13.2 % See Below [facility] n 127 DO Work Phone: Comment on above: Reference Range: 11. 5 - 14.5 Hematocrit (Bld) [Volume fraction] 39.5 % See Below [address] [place] [address] DO Work Phone: Comment on above: Reference Range: 36. 0 - 46.0 Hemoglobin (Bld) [Mass/Vol] 13.2 g/dL See Below [facility] n 127 DO Work Phone: Comment on above: Reference Range: 12. 0 - 16.0 MCHC (RBC) [Mass/Vol] 33.4 g/dL See Below [facility] n 127 DO Work Phone: Comment on above: Reference Range: 32. 0 - 36.0 MCV (RBC) [Entitic vol] 97 fL 80 - 100 [facility] n 127 DO Work Phone: Platelets (Bld) [#/Vol] 247 10*3/uL 150 - 450 [facility] n 127 DO Work Phone: RBC (Bld) [#/Vol] 4.07 {x10E12/L} See Below [facility] n [facility] DO Work Phone: Comment on above: Reference Range: 4.0 0 - 5.20 WBC (Bld) [#/Vol] 7.8 10*3/uL 4.4 - 11.3 [facility] n 127 DO Work Phone: Lipid Panelon 05-17-2021 Cholesterol [Mass/Vol] 176 mg/dL 0 - 199 [facility] n 127 DO Work Phone: Comment on [...] dosing. Cholesterol in HDL [Mass/Vol] 63.0 mg/dL [facility] DO Work Phone: Comment on above: . AGE VERY LOW LOW N ORMAL HIGH 0-19 Y < 35 < 40 40-45 ---- 20- 24 Y ---- < 40 >45 ---- >24 Y ---- < 40 40-60 >60. Cholesterol in LDL [Mass/Vol] 96 mg/dL 0 - 99 [facility] n 127 DO Work Phone: Comment on above: . NEAR BORD AGE LUIS RABLE OPTIMAL HIGH HIGH VERY HIGH 0-19 Y 0 - 109 --- 110-129 >/= 130 ---- 20-24 Y 0 - 119 --- 120-159 >/= 160 ---- >24 Y 0 - 99 100-129 130-159 160-189 >/=190. Cholesterol.total/Ch olesterol in HDL [Mass ratio] 2.8 {ratio} [facility] DO Work Phone: Comment on above: REF VALUESDESIRABLE < 3.4HIGH RISK > 5.0 Triglyceride [Mass/Vol] 87 mg/dL 0 - 149 [place] [address] DO Work Phone: Comment on above: . [...] Lipid Panel 17 mg/dL 0 - 40 [place] [address] DO Work Phone: Magnesium, Serumon Magnesium [Mass/Vol] 1.90 mg/dL See Below [place] [address] DO Work Phone: Comment on above: Reference Range: 1.6 0 - 2.40 No Panel Informationon 05-17 >60 >60 [place] [address] DO Work Phone: Comment on above: CALCULATIONS OF LINDSEY MATED GFR ARE PERFORMED USING THE MDRD STUDY EQUATION FOR THE IDMS-TRACEABLE CREATININE METHODS. CLIN CHEM 2007;53:766-72 T4 - Free Thyroxine, Serumon 05-17-2021 Free T4 [Mass/Vol] 0.90 ng/dL See Below [place] [address] DO Work Phone: Comment on above: Reference Range: 0.6 1 - 1.12 Thyroxine Free testing is performed using different testing methodology at [facility] than at other [facility]. Direct result comparisons should only be [...] 05-17-2021 TSH Qn 1.76 m[IU]/L See Below [facility] n 127 DO Work Phone: Comment on above: Reference Range: 0.4 4 - 3.98 TSH testing is performed using different testing methodology at [facility] than at other [facility]. Direct result comparisons should only be made within the same method. Tobacco Screening.on Fall risk assessment a) No falls within the last year [facility] n 127 DO Work Phone: Tobacco use status CPHS b) No [facility] n 127 DO Work Phone: HCG, Serum - Qualitativeon 1 06-22-2020 HCG ( test) Ql Negative Negative [facility] Work Phone: No Panel Informationon 04-22 [email or web address]?Ret rieveTestByDateTime?Patient QS=[id number]&Date= 1&Time=06%3a23%3a29%3a00&Te stType=ECG&Site=11&OutputTy pe=PDF&Ext=PDF [facility] Work Phone: Sinus rhythm with pr emature supraventricular complexes [facility] Work Phone: Borderline Abnormal [facility] Work Phone: [phone] [facility] Work Phone: [phone] [facility] Work Phone: [phone] [facility] Work Phone: [phone] [facility] Work Phone: [phone] [facility] Work Phone: [phone] [facility] Work Phone: [phone] [facility] Work Phone: [phone] [facility] Work Phone: [phone] 1 [facility] Work Phone: [phone] [facility] Work Phone: [phone] [facility] Work Phone: [phone] [facility] Work Phone: [phone] [facility] Work Phone: [phone] [facility] Work Phone: Coronavirus 2019 RNA by PCR, Screening Asymptomticon 04-20-2021 Coronavirus 2019 RNA by PCR, Screening Asymptomtic Not detected Normal See Below -[facility] Work Phone: Comment on above: SOURCE: [...] make patient management decisions.Fact sheet for providers: https://www.fda.gov/media/531525/downloadFact sheet for patients: https://www.fda.gov/media/651988/downloadThis test has received FDA Emergency Use Authorization (EUA) and has been verified by [facility] ([facility]). This test is only authorized for the [...] complexity testing. Testing is performed in the [facility] laboratories located at [address] [place] [address]. LMPon 10-29-2020 Last menstrual period start date 31Aug2020 -[facility] Work Phone: No Panel Informationon 10-29 Name RASHEEDA NICHOLE Pathologist: MAGDA LIMON MD Date of Procedure: 10/29/2020 Date Received: 10/29/2020 Date Reported 11/03/2020 Submitting Physician: SALIMA GILMAN M.D. Location: [facility] External # FINAL DIAGNOSIS A. SKIN, [...] and entirely submitted in one cassette. [facility]/11/02/2020 [facility] Department of Pathology [address] [place] [address] Work Phone: [facility] Work Phone: Mamm - Screening Mammogram w / Tomosynthesison 06-09-2020 MG Breast screening Interpreted by: THERON SNELL08/10/19 09:10MRN: [id number] Name: RASHEEDA NICHOLE STUDY:DIGITAL SCREENING BILATERAL MAMMOGRAM [...] signed by: THERON VEE 06/09/20 09:[address] [facility] Work Phone: Comment on above: ORDER REVISED TO A D IGITAL MAMM SCREENING W/ MASON BY RADIOLOGIST; Original Order Number: [id number] GC + Chlamydia By Amplified Detectionon 01-05-2020 C. trachomatis rRNA REYNALDO+probe Ql (Unsp spec) Negative Negative [facility] A2100 DO Work Phone: N. gonorrhoeae rRNA REYNALDO+probe Ql (Unsp spec) Negative Negative [facility] A2100 DO Work Phone: Comment on above: SOURCE: Genital Otheron 01-05-2020 0 [facility] A2100 DO Work Phone: Comment on above: Interpretation of th e Bronwyn Score0-3.....Normal vaginal microbiota4-6.....Intermediate results7-10....Bacterial vaginosis ABSENT [facility] A2100 DO Work Phone: Negative Negative [facility] A2100 DO Work Phone: Comment on above: SOURCE: Genital Urinalysison 01-05-2020 Yeast LM Ql (Urine sed) ABSENT [facility] A2100 DO Work Phone: Otheron 07-25-2019 Clam IgE Qn (S) <0.35 <0.35 [facility] Work Phone: Comment on above: SEE IMMUNOCAP INTERP .IGE Codfish IgE Qn (S) <0.35 <0.35 [facility] Work Phone: Comment on above: SEE IMMUNOCAP INTERP .IGE Jasper IgE Qn (S) <0.35 <0.35 [facility] Work Phone: Comment on above: SEE IMMUNOCAP INTERP .IGE Egg white IgE Qn (S) <0.35 <0.35 [facility] Work Phone: Comment on above: SEE IMMUNOCAP INTERP .IGE Lobster IgE Qn (S) 0.56 {KU/L} Abnormal <0.35 [facility]st Work Phone: Comment on above: SEE IMMUNOCAP INTERP .IGE Milk IgE Qn (S) <0.35 <0.35 [facility] herst Work Phone: Comment on above: SEE IMMUNOCAP INTERP .IGE Peanut IgE Qn (S) <0.[address] [facility] Work Phone: Comment on above: SEE IMMUNOCAP INTERP .IGE Wabash IgE Qn (S) <0.35 <0.35 [facility] Work Phone: Comment on above: SEE IMMUNOCAP INTERP .IGE Scallop IgE Qn (S) <0.35 <0.35 [facility] Work Phone: Comment on above: SEE IMMUNOCAP INTERP .IGE Sesame Seed IgE Qn (S) <0.[address] [facility] Work Phone: Comment on above: SEE IMMUNOCAP INTERP .IGE Shrimp IgE Qn (S) 0.40 {KU/L} Abnormal <0.35 [facility] Work Phone: Comment on above: SEE IMMUNOCAP INTERP .IGE Soybean IgE Qn (S) <0.[address] [facility] Work Phone: Comment on above: SEE IMMUNOCAP INTERP .IGE Valencia IgE Qn (S) <0.35 <0.35 [facility] Work Phone: Comment on above: SEE IMMUNOCAP INTERP .IGE Wheat IgE Qn (S) <0.35 <0.35 [facility] Work Phone: Comment on above: SEE IMMUNOCAP INTERP .IGE SEE COMMENT [facility] Work Phone: Comment on above: REFERENCE RANGE (IMM UNOCAP) IGE KU/L CLASS INTERPRETATION < 0.35 0 BELOW DETECTION 0.35- 0.69 1 LOW POSITIVE 0.70- 3.49 2 MODERATE POSITIVE 3.50- 17.49 3 HIGH SXULQXKA79.50- 49 4 VERY HIGH [id number] - 99 5 VERY HIGH POSITIVE >100 6 VERY HIGH POSITIVE Culture, Throaton 10-30-2018 Culture, Throat OR DERED BY: SARKIS ROGERS SOURCE: Throat Throat COLLECTED: 10/30/18 15:03 ANTIBIOTICS AT KIP.: RECEIVED : 10/30/18 19:13 Culture, Throat FINAL 11/01/18 08:10 Usual respiratory jessica in 48 hours Normal [facility] Comment on above: Performed By: #### C XTHR #### [facility] [address] [place] [address] Vital Signs Date Time Vital Sign Value Performing Clinician Yamile rojas 01-18-2024 11:42-0400 Blood Pressure Location [facility] 01-18-2024 11:42-0400 Diastolic blood pressure 66 mm[Hg] [facility] 01-18-2024 11:42-0400 Heart rate 61 /min [facility] 01-18-2024 11:42-0400 SaO2% (BldA) [Mass fraction] 97 % [facility] 01-18-2024 11:42-0400 Systolic blood pressure 118 mm[Hg] [facility] 11-12-2023 23:00-0400 Diastolic blood pressure 70 mm[Hg] Atilio Beltran [facility] 11-12-2023 23:00-0400 Heart rate 58 /min Atilio Devin [facility] 11-12-2023 23:00-0400 Mean blood pressure 90 mm[Hg] Atilio Devin [facility] 11-12-2023 23:00-0400 Respiratory rate 8 /min Atilio Devin [facility] 11-12-2023 23:00-0400 SaO2% (BldA) [Mass fraction] 96 % Atilio Devin [facility] 11-12-2023 23:00-0400 Systolic blood pressure 131 mm[Hg] Atilio Devin [facility] 11-12-2023 22:00-0400 Diastolic blood pressure 60 mm[Hg] Atilio Devin [facility] 11-12-2023 22:00-0400 Heart rate 64 /min Atilio Devin [facility] 11-12-2023 22:00-0400 Mean blood pressure 79 mm[Hg] Atilio Devin [facility] 11-12-2023 22:00-0400 Respiratory rate 25 /min Atilio Devin [facility] 11-12-2023 22:00-0400 SaO2% (BldA) [Mass fraction] 97 % Atilio Devin [facility] 11-12-2023 22:00-0400 Systolic blood pressure 117 mm[Hg] Atilio Devin [facility] 11-12-2023 21:00-0400 Diastolic blood pressure 72 mm[Hg] Atilio Devin [facility] 11-12-2023 21:00-0400 Mean blood pressure 87 mm[Hg] Atilio Devin [facility] 11-12-2023 21:00-0400 Respiratory rate 20 /min Atilio Beltran [facility] 11-12-2023 21:00-0400 SaO2% (BldA) [Mass fraction] 99 % Atilio Beltran [facility] 11-12-2023 21:00-0400 Systolic blood pressure 118 mm[Hg] Atilio Beltran [facility] 11-12-2023 20:41-0400 Body temperature 97.7 [degF] Atilio Beltran [facility] 11-12-2023 20:41-0400 Heart rate 63 /min Atiliodanielle Beltran [facility] 11-12-2023 20:41-0400 Respiratory rate 16 /min Atilio Beltran [facility] 2023 16:45-0400 Blood Pressure Location [facility] 2023 16:45-0400 Diastolic blood pressure 60 mm[Hg] [facility] 2023 16:45-0400 Heart rate 64 /min [facility] 2023 16:45-0400 SaO2% (BldA) [Mass fraction] 96 % [facility] 2023 16:45-0400 Systolic blood pressure 116 mm[Hg] [facility] 09-24-2022 04:19-0400 Diastolic blood pressure 58 mm[Hg] Vincent Pan [facility] 09-24-2022 04:19-0400 Heart rate 60 /min Vincent Maxim [facility] 09-24-2022 04:19-0400 Respiratory rate 18 /min Vincent Maxim [facility] 09-24-2022 04:19-0400 SaO2% (BldA) [Mass fraction] 96 % Vincent Maxim [facility] 09-24-2022 04:19-0400 Systolic blood pressure 114 mm[Hg] Vincent Maxim [facility] 09-24-2022 02:53-0400 Diastolic blood pressure 56 mm[Hg] Vincent Maxim [facility] 09-24-2022 02:53-0400 Heart rate 68 /min Vincent Maxim [facility] 09-24-2022 02:53-0400 Mean blood pressure 70 mm[Hg] Vincent Maxim [facility] 09-24-2022 02:53-0400 Respiratory rate 15 /min Vincent Maxim [facility] 09-24-2022 02:53-0400 SaO2% (BldA) [Mass fraction] 92 % Vincent Maxim [facility] 09-24-2022 02:53-0400 Systolic blood pressure 99 mm[Hg] Vincent Maxim [facility] 09-24-2022 02:19-0400 Blood Pressure Location Vincent Maxim [facility] 09-24-2022 02:19-0400 Diastolic blood pressure 52 mm[Hg] Vincent Maxim [facility] 09-24-2022 02:19-0400 Heart rate 75 /min Vincent Maxim [facility] 09-24-2022 02:19-0400 Mean blood pressure 68 mm[Hg] Vincent Maxim [facility] 09-24-2022 02:19-0400 Respiratory rate 18 /min Vincent Maxim [facility] 09-24-2022 02:19-0400 SaO2% (BldA) [Mass fraction] 95 % Vincent Pan [facility] 09-24-2022 02:19-0400 Systolic blood pressure 101 mm[Hg] Vincent Pan [facility] 09-24-2022 01:07-0400 Blood Pressure Location Vincent Pan [facility] 09-24-2022 01:07-0400 Mean blood pressure 72 mm[Hg] Vincent Pan [facility] 09-23-2022 22:20-0400 Respiratory rate 16 /min Vincent Pan [facility] 09-20-2022 12:24-0400 Body mass index (BMI) [Ratio] 36.48 kg/m2 Kayla Dent [facility] 305 DO Work Phone: 09-20-2022 12:24-0400 Body surface area Derived from formula 1.81 m2 Kayla Dent [facility] 305 DO Work Phone: 09-20-2022 12:24-0400 Body weight 84.73 kg Kayla Dent [facility] 305 DO Work Phone: 09-20-2022 12:24-0400 Diastolic blood pressure 72 mm[Hg] Kayla Dent [facility] 305 DO Work Phone: 09-20-2022 12:24-0400 Heart rate 61 /min Kayla Dent [facility] 305 DO Work Phone: 09-20-2022 12:24-0400 Systolic blood pressure 132 mm[Hg] Kayla Dent [facility] 305 DO Work Phone: 08-29-2022 10:03-0400 Heart rate 64 /min Kayla Monroealonzo Barrette [facility] 300 DO Work Phone: 08-25-2022 14:17-0500 Body temperature 97.88 [degF] Kayla Dent Other Phone: [facility] 08-25-2022 14:17-0500 Diastolic blood pressure 63 mm[Hg] Kayla Dent Other Phone: [facility] 08-25-2022 14:17-0500 Heart rate 69 /min Kayla Barrette Other Phone: [facility] 08-25-2022 14:17-0500 Respiratory rate 16 /min Kayla Dent Other Phone: [facility] 08-25-2022 14:17-0500 SaO2% (BldA) [Mass fraction] 93 % Kayla Dent Other Phone: [facility] 08-25-2022 14:17-0500 Systolic blood pressure 120 mm[Hg] Kayla Barrette Other Phone: [facility] 08-18-2022 10:45-0500 Body height 152.4 cm Kayla Monroealonzo Barrette [facility] 300 DO Work Phone: 08-18-2022 10:45-0500 Body mass index (BMI) [Ratio] 36.13 kg/m2 Kayla Monroeeen Dent [facility] 300 DO Work Phone: 08-18-2022 10:45-0500 Body surface area Derived from formula 1.81 m2 Kayla Monroeeen Olena [facility] 300 DO Work Phone: 08-18-2022 10:45-0500 Body weight 83.92 kg Kayla Monroeeen Olena [facility] 300 DO Work Phone: 08-18-2022 10:45-0500 Diastolic blood pressure 80 mm[Hg] Kayla Dent [facility] 300 DO Work Phone: 08-18-2022 10:45-0500 Heart rate 50 /min Kayla Dent [facility] 300 DO Work Phone: 08-18-2022 10:45-0500 Systolic blood pressure 134 mm[Hg] Kayla Dent [facility] 300 DO Work Phone: 08-07-2022 09:06-0500 Blood Pressure Location Luna DICKINSON [facility] 08-07-2022 09:06-0500 Diastolic blood pressure 74 mm[Hg] Luna DICKINSON [facility] 08-07-2022 09:06-0500 Heart rate 66 /min Luna DICKINSON [facility] 08-07-2022 09:06-0500 SaO2% (BldA) [Mass fraction] 95 % Luna DICKINSON [facility] 08-07-2022 09:06-0500 Systolic blood pressure 118 mm[Hg] Luna DICKINSON [facility] 07-12-2022 15:48-0500 Blood Pressure Location Skip Carlos [facility] 07-12-2022 15:48-0500 Diastolic blood pressure 70 mm[Hg] Skip Galarzaofferson [facility] 07-12-2022 15:48-0500 Heart rate 69 /min Skip Christofferson [facility] 07-12-2022 15:48-0500 Respiratory rate 18 /min Skip Christofferson [facility] 07-12-2022 15:48-0500 SaO2% (BldA) [Mass fraction] 98 % Skip Galarzaofferson [facility] 07-12-2022 15:48-0500 Systolic blood pressure 112 mm[Hg] Skip Gonzalez [facility] 12-21-2021 10:04-0400 Body height 152.4 cm Salima Kodak Kalina Work Phone: [facility] 127 DO Work Phone: 12-21-2021 10:04-0400 Body mass index (BMI) [Ratio] 36.72 kg/m2 Salima Kodak Kalina Work Phone: [facility] 127 DO Work Phone: 12-21-2021 10:04-0400 Body surface area Derived from formula 1.82 m2 Salima Kodak YuenKalina Work Phone: [facility] 127 DO Work Phone: 12-21-2021 10:04-0400 Body weight 85.28 kg Salima Kodak Kalina Work Phone: [facility] 127 DO Work Phone: 12-21-2021 10:04-0400 Diastolic blood pressure 70 mm[Hg] Salima Kodak Kalina Work Phone: [facility] 127 DO Work Phone: 12-21-2021 10:04-0400 Heart rate 68 /min Salima Kodak Kalina Work Phone: [facility] 127 DO Work Phone: 12-21-2021 10:04-0400 Systolic blood pressure 112 mm[Hg] Salima Yuenabrese Work Phone: [facility] 127 DO Work Phone: 11-22-2021 15:34-0400 Body height 152.4 cm Salima Yuenabrese Work Phone: [facility] Work Phone: 11-22-2021 15:34-0400 Body mass index (BMI) [Ratio] 36.72 kg/m2 Salima Yuenabrese Work Phone: [facility] Work Phone: 11-22-2021 15:34-0400 Body surface area Derived from formula 1.82 m2 Salima Candelario Kalina Work Phone: [facility] Work Phone: 11-22-2021 15:34-0400 Body temperature 97 [degF] Salima Yuenabrese Work Phone: [facility] Work Phone: 11-22-2021 15:34-0400 Body weight 85.28 kg Salima Yuenabrese Work Phone: [facility] Work Phone: 11-22-2021 15:34-0400 Diastolic blood pressure 73 mm[Hg] Salima Yuenabrese Work Phone: [facility] Work Phone: 11-22-2021 15:34-0400 Heart rate 66 /min Salima Yuenabrese Work Phone: [facility] Work Phone: 11-22-2021 15:34-0400 SaO2% (BldA) [Mass fraction] 97 % Salima Spenceese Work Phone: [facility] Work Phone: 11-22-2021 15:34-0400 Systolic blood pressure 112 mm[Hg] Salima [facility]ese [facility] Work Phone: 07-12-2021 08:30-0500 Body height 152.4 cm Salima Spenceese Work Phone: [facility] Work Phone: 07-12-2021 08:30-0500 Body mass index (BMI) [Ratio] 36.33 kg/m2 Salima Spenceese Work Phone: [facility] Work Phone: 07-12-2021 08:30-0500 Body surface area Derived from formula 1.81 m2 Salima Spenceese Work Phone: [facility] Work Phone: 07-12-2021 08:30-0500 Body temperature 96.4 [degF] Salima Spenceese Work Phone: [facility] Work Phone: 07-12-2021 08:30-0500 Body weight 84.37 kg Salima Spenceese Work Phone: [facility] Work Phone: 07-12-2021 08:30-0500 Diastolic blood pressure 82 mm[Hg] Salima Spenceese Work Phone: [facility] Work Phone: 07-12-2021 08:30-0500 Heart rate 88 /min Salima Spenceese Work Phone: [facility] Work Phone: 07-12-2021 08:30-0500 Respiratory rate 16 /min Salima Spenceese Work Phone: [facility] Work Phone: 07-12-2021 08:30-0500 SaO2% (BldA) [Mass fraction] 98 % Salima Kodak Kalina Work Phone: [facility] Work Phone: 07-12-2021 08:30-0500 Systolic blood pressure 122 mm[Hg] Salima Candelario Kalina Work Phone: [facility] Work Phone: 06-23-2021 13:19-0500 Body height 152.4 cm Salima Kodak Kalina Work Phone: [facility] 127 DO Work Phone: 06-23-2021 13:19-0500 Body mass index (BMI) [Ratio] 35.54 kg/m2 Salima Kodak Kalina Work Phone: [facility] 127 DO Work Phone: 06-23-2021 13:19-0500 Body surface area Derived from formula 1.79 m2 Salima Kodak Kalina Work Phone: [facility] 127 DO Work Phone: 06-23-2021 13:19-0500 Body weight 82.56 kg Salima Kodak Kalina Work Phone: [facility] 127 DO Work Phone: 06-23-2021 13:19-0500 Diastolic blood pressure 78 mm[Hg] Salima Candelario Kalina Work Phone: [facility] 127 DO Work Phone: 06-23-2021 13:19-0500 Heart rate 66 /min Salima Yuenabrese Work Phone: [facility] 127 DO Work Phone: 06-23-2021 13:19-0500 Systolic blood pressure 120 mm[Hg] Salima Yuenabrese Work Phone: [facility] 127 DO Work Phone: 06-07-2021 09:45-0500 65 1 Salima Yuenabrese Work Phone: [facility] 127 DO Work Phone: Comment on above: [id number] 05-11-2021 10:30-0500 Diastolic blood pressure 68 mm[Hg] Salimawilmer Yuenabrese Work Phone: [facility] 127 DO Work Phone: 05-11-2021 10:30-0500 Systolic blood pressure 126 mm[Hg] Salima Candelario Kalina Work Phone: [facility] 127 DO Work Phone: 05-11-2021 09:53-0500 Body height 152.4 cm Salimasuresh Spenceese Work Phone: [facility] 127 DO Work Phone: 05-11-2021 09:53-0500 Body mass index (BMI) [Ratio] 35.94 kg/m2 Salima Kodak Kalina Work Phone: [facility] 127 DO Work Phone: 05-11-2021 09:53-0500 Body surface area Derived from formula 1.8 m2 Salima Kodak Kalina Work Phone: [facility] 127 DO Work Phone: 05-11-2021 09:53-0500 Body weight 83.46 kg Salima Kodak Kalina Work Phone: [facility] 127 DO Work Phone: 05-11-2021 09:53-0500 Diastolic blood pressure 82 mm[Hg] Salima Gilman Work Phone: [facility] 127 DO Work Phone: 05-11-2021 09:53-0500 Heart rate 81 /min Salima Gilman Work Phone: [facility] 127 DO Work Phone: 05-11-2021 09:53-0500 Systolic blood pressure 148 mm[Hg] Salima Gilman Work Phone: [facility] 127 DO Work Phone: 10-29-2020 18:09-0400 Body height 152.4 cm Lunadominic Zacarias PA-C [facility] Work Phone: 10-29-2020 18:09-0400 Body mass index (BMI) [Ratio] 34.76 kg/m2 Lunadominic Zacarias PA-C [facility] Work Phone: 10-29-2020 18:09-0400 Body surface area Derived from formula 1.78 m2 Luna Rell PA-C [facility] Work Phone: 10-29-2020 18:09-0400 Body temperature 97.5 [degF] Luna Rhondady PA-C [facility] Work Phone: 10-29-2020 18:09-0400 Body weight 80.74 kg Luna Rhondady PA-C [facility] Work Phone: 10-29-2020 18:09-0400 Diastolic blood pressure 58 mm[Hg] Luna Ellisdy PA-C [facility] Work Phone: 10-29-2020 18:09-0400 Heart rate 80 /min Lunadominic Zacarias PA-C [facility] Work Phone: 10-29-2020 18:09-0400 Respiratory rate 16 /min Luna Zacarias PA-C [facility] Work Phone: 10-29-2020 18:09-0400 SaO2% (BldA) [Mass fraction] 98 % Luna Zacarias PA-C [facility] Work Phone: 10-29-2020 18:09-0400 Systolic blood pressure 118 mm[Hg] Luna Zacarias PA-C [facility] Work Phone: 10-29-2020 18:09-0400 3 1 Luna Zacarias PA-C [facility] Work Phone: Comment on above: Para 10-29-2020 16:09-0400 Body height 152.4 cm Salima Spenceese Work Phone: [facility] Work Phone: 10-29-2020 16:09-0400 Body mass index (BMI) [Ratio] 34.76 kg/m2 Salima Spenceese Work Phone: [facility] Work Phone: 10-29-2020 16:09-0400 Body surface area Derived from formula 1.78 m2 Salima Spenceese Work Phone: [facility] Work Phone: 10-29-2020 16:09-0400 Body temperature 97.5 [degF] Salima Spenceese Work Phone: [facility] Work Phone: 10-29-2020 16:09-0400 Body weight 80.74 kg Salima Gilman Work Phone: [facility] Work Phone: 10-29-2020 16:09-0400 Diastolic blood pressure 58 mm[Hg] Salima Gilman Work Phone: [facility] Work Phone: 10-29-2020 16:09-0400 Heart rate 80 /min Salima Gilman Work Phone: [facility] Work Phone: 10-29-2020 16:09-0400 Respiratory rate 16 /min Salima Candelario Kalina Work Phone: [facility] Work Phone: 10-29-2020 16:09-0400 SaO2% (BldA) [Mass fraction] 98 % Salima Gilman Work Phone: [facility] Work Phone: 10-29-2020 16:09-0400 Systolic blood pressure 118 mm[Hg] Salima Gilman Work Phone: [facility] Work Phone: 10-29-2020 16:09-0400 3 1 Salima Gilman Work Phone: [facility] Work Phone: Comment on above: GRAV PARA 09-24-2020 11:19-0400 Body height 152.4 cm Simone Coulter DO [facility] [place] Work Phone: 09-24-2020 11:19-0400 Body mass index (BMI) [Ratio] 30.66 kg/m2 Simone Coulter DO [facility] Work Phone: 09-24-2020 11:19-0400 Body surface area Derived from formula 1.68 m2 Simone Coulter [facility] Work Phone: 09-24-2020 11:19-0400 Body temperature 96.8 [degF] Simone Coulter [facility] Work Phone: 09-24-2020 11:19-0400 Body weight 71.22 kg Simone Coulter [facility] Work Phone: 09-24-2020 11:19-0400 Diastolic blood pressure 64 mm[Hg] [facility] Work Phone: 09-24-2020 11:19-0400 Heart rate 60 /min Simone Coulter [facility] [place] Work Phone: 09-24-2020 11:19-0400 Respiratory rate 16 /min Simone Coulter [facility] Work Phone: 09-24-2020 11:19-0400 SaO2% (BldA) [Mass fraction] 97 % Simone Coulter [facility] Work Phone: 09-24-2020 11:19-0400 Systolic blood pressure 110 mm[Hg] Simone Coulter [facility] [place] Work Phone: 09-24-2020 11:19-0400 3 1 Simone Lozadaraj [facility] Work Phone: Comment on above: Para 01-12-2020 11:18-0400 BMI (Body Mass Index) 20.89 kg/m2 Priscilla Leahy [facility] [facility] DO Work Phone: 01-12-2020 11:18-0400 Body weight 69.85 kg Priscilla Leahy [facility] A2100 DO Work Phone: 01-12-2020 11:18-0400 BP Diastolic 78 mm[Hg] Priscilla Leahy [facility] A2100 DO Work Phone: 01-12-2020 11:18-0400 BP Systolic 124 mm[Hg] Priscilla Leahy LZ-Xtnxzosxif-Fd [place] A2100 DO Work Phone: 01-12-2020 11:18-0400 BSA (Body Surface Area) 1.91 m2 Priscilla Leahy DT-Dcpyxsdlnb-Ez [place] A2100 DO Work Phone: 01-12-2020 11:18-0400 Height 182.88 cm Priscilla Leahy JV-Zsziljikbg-Fm [place] A2100 DO Work Phone: 01-05-2020 15:57-0400 BMI (Body Mass Index) 28.35 kg/m2 Priscilla Leahy [facility] A2100 DO Work Phone: 01-05-2020 15:57-0400 Body Temperature 98.4 [degF] Priscilla Leahy [facility] [place] A2100 DO Work Phone: 01-05-2020 15:57-0400 Body weight 70.31 kg Priscilla Leahy [facility] A2100 DO Work Phone: 01-05-2020 15:57-0400 BP Diastolic 60 mm[Hg] Priscilla Leahy AR-Jgsbbwhbln-Pb [place] A2100 DO Work Phone: 01-05-2020 15:57-0400 BP Systolic 122 mm[Hg] Priscilla Leahy MB-Wmavhdjkxi-[place]t [place] A2100 DO Work Phone: 01-05-2020 15:57-0400 BSA (Body Surface Area) 1.72 m2 Priscilla Leahy [facility] A2100 DO Work Phone: 01-05-2020 15:57-0400 Height 157.48 cm Priscilla Leahy YH-Ehtcokmogf-Na [place] A2100 DO Work Phone: 01-05-2020 15:57-0400 Pulse (Heart Rate) 75 /min Priscilla Leahy [facility] A2100 DO Work Phone: 01-05-2020 15:57-0400 Pulse Oximetry 98 % Priscilla Leahy [facility] [place] A2100 DO Work Phone: 01-05-2020 15:57-0400 Respiratory Rate 16 /min Priscilla Leahy [facility] [place] A2100 DO Work Phone: 10-15-2019 17:37-0400 BMI (Body Mass Index) 27.34 kg/m2 Christian Tolbertlock [facility] Work Phone: 10-15-2019 17:37-0400 Body weight 67.81 kg Christian Tolbertlock [facility] Work Phone: 10-15-2019 17:37-0400 BP Diastolic 70 mm[Hg] Christian Sherlock [facility] Work Phone: 10-15-2019 17:37-0400 BP Systolic 102 mm[Hg] Christian Sherlock [facility] Work Phone: 10-15-2019 17:37-0400 BSA (Body Surface Area) 1.69 m2 Christian Sherlock [facility] Work Phone: 10-15-2019 17:37-0400 Height 157.48 cm Christian Tolbertlock [facility] Work Phone: Encounters Encounter Date Encounter Type Care Provider Facility Start: 02-15-2024 End: 02-17-2024 ambulatory [facility] Start: 02-08-2024 End: 02-08-2024 ambulatory Micah Diaz [place] Start: 02-08-2024 End: 02-08-2024 Patient encounter procedure Micah Diaz [facility] Start: 01-18-2024 End: 01-18-2024 ambulatory DO Micah Varghese Herisydnie Facility:[facility] Start: 01-18-2024 End: 01-18-2024 Patient encounter procedure Micah Diaz [facility] Start: 11-12-2023 End: 11-12-2023 Emergency department patient visit Atilio Beltran [facility] Start: 10-26-2023 End: 10-26-2023 ambulatory JUAN LUIS A PLEASNICK Not Available Start: 10-19-2023 End: 10-19-2023 ambulatory JUAN LUIS A PLEASNICK Not Available Start: 10-12-2023 End: 10-12-2023 ambulatory JUAN LUIS A PLEASNICK Not Available Start: 10-12-2023 End: 10-12-2023 ambulatory DO Micah Varghese Herisydnie [facility] Start: 10-12-2023 End: 10-12-2023 Patient encounter procedure Micah Diza [facility] Start: 10-10-2023 End: 10-10-2023 ambulatory JUAN LUIS A PLEASNICK Not Available Start: 10-05-2023 End: 10-05-2023 ambulatory JUAN LUIS A PLEASNICK Not Available Start: 10-03-2023 End: 10-03-2023 ambulatory JUAN LUIS A PLEASNICK Not Available Start: 2023 End: 2023 ambulatory DO Micah Varghese Herisydnie Facility:[facility] Start: 2023 End: 2023 Patient encounter procedure Micah Diaz [facility] Start: 09-28-2023 End: 09-28-2023 ambulatory JUAN LUIS A PLEASNICK Not Available Start: 09-26-2023 End: 09-26-2023 ambulatory JUAN LUIS A NICOLENICK Not Available Start: 09-21-2023 End: 09-21-2023 ambulatory JUAN LUIS A PLEASNICK Not Available Start: 09-13-2023 End: 09-13-2023 ambulatory JUAN LUIS A PLEASNICK Not Available Start: 07-27-2023 End: 07-27-2023 ambulatory [facility] Ambulatory Start: 06-29-2023 ambulatory DO Micah Ramirez ity:FM Jony Start: 06-29-2023 End: 07-14-2023 Pre-admission assessment Kayla Dent [facility] Start: 04-26-2023 End: 07-25-2023 ambulatory CYNDI CHEW [place] Start: 04-26-2023 End: 07-25-2023 Recurring CYNDI CHEW [facility] Start: 04-16-2023 End: 04-16-2023 Office outpatient visit 25 minutes [facility] SEPARATOR TENDER-[facility] Work Phone: [facility] Comment on above: High risk medication use (Primary Dx); Palpitations; Premature ventricular contractions (PVCs) (VPCs); Tachycardia Start: 04-16-2023 End: 04-16-2023 ambulatory [facility] Ambulatory Start: 04-10-2023 End: 04-11-2023 [facility] Start: 04-10-2023 End: 04-10-2023 Subsequent hospital visit by physician Marty James [facility] [place] Comment on above: Palpitations Start: 03-30-2023 End: 03-30-2023 ambulatory CYNDI CHEW [facility] Start: 03-30-2023 End: 03-30-2023 Patient encounter procedure CYNDI CHEW [facility] Start: 03-05-2023 Patient encounter procedure Kayla Dent -[place] [facility] 300 DO Work Phone: Start: 03-05-[address] Kayla Chavez acility:[id number] Start: 03-01-2023 AUDIT Kayla Dent [facility] [place] [facility] 320 DO Work Phone: Start: 11-08-2022 ambulatory MD FEDERICO WING Fa cility: Start: 10-13-2022 Chart Update Kayla Dent [facility] [place] [facility] Work Phone: Start: 10-10-[address] Kayla Chavez acility:[id number] Start: 09-23-2022 End: 09-24-2022 Emergency department patient visit Vicnent Pan [facility] Start: 09-22-[address] Kayla Chavez acility: Start: 09-22-2022 End: 09-22-2022 Patient encounter procedure Federico Wing [facility] Start: 09-21-[address] Kayla Chavez acility: Start: 09-21-2022 End: 09-21-2022 Patient encounter procedure Federico Wing [facility] Start: 09-20-2022 ambulatory MD FEDERICO WING Fa cility: Start: 09-20-2022 Office outpatient vi sit 40 minutes Kayla Dent MP-[facility] 305 DO Work Phone: Start: 09-01-2022 ambulatory Federico Wing Facility:[id number] Start: 08-29-2022 EKG, Provider: [facility] [id number] ICU SPECIALIST 1,[id number], Status: Pen, Time: 10:00 AM Kayla Dent MP-[facility]-[place] 300 DO Work Phone: Start: 08-29-2022 Patient encounter procedure Kayla Sonya Barrette -[facility] 300 DO Work Phone: Start: 08-29-2022 ambulatory MD FEDERICO WING Fa cility: Start: 08-28-2022 Patient encounter procedure Kayla Dent -[facility] 300 DO Work Phone: Start: 08-28-2022 ambulatory MD FEDERICO WING Fa cility: Start: 08-25-2022 AUDIT Kayla Sonya Dent [facility] [place] [facility] Work Phone: Start: 08-23-2022 End: 08-25-2022 Evaluation and management of inpatient Skip Platzbecker Facility:[id number] Start: 08-23-2022 [facility]UDIT [facility] [place] Work Phone: Start: 08-22-2022 End: 08-25-2022 Evaluation and management of inpatient Skip Platzbecker [place] 8 Cardio ICU 807 [id number] Start: 08-18-2022 Office consultation new/estab patient 80 min Kayla Sonya Barrette -[facility] 300 DO Work Phone: Start: 08-18-[address] Skip Gonzalez Facility: Start: 08-07-2022 End: 08-07-2022 Patient encounter procedure Luna DICKINSON [facility] Start: 07-12-2022 End: 07-12-2022 Patient encounter procedure Skip Gonzalez [facility] Start: 06-29-2022 End: 06-29-2022 ambulatory CAMPBELL HERNANDEZ Facility:[id number] Start: 06-27-2022 End: 06-27-2022 Patient encounter procedure Kayla Dent [facility] Start: 06-26-2022 End: 07-08-2022 Pre-admission assessment Kayla Dent [facility] Start: 03-28-2022 End: 03-28-2022 Patient encounter procedure Kayla Dent [facility] Start: 12-28-2021 Chart Update Salima garcia Work Phone: [facility] Work Phone: Start: 12-28-[address] Salima Gilman Facility:[id number] Start: 12-21-2021 Office outpatient vi sit 15 minutes Salima Gilman Work Phone: [facility]-[place] 250 DO Work Phone: Start: 12-21-2021 Patient encounter procedure Salima Gilman Work Phone: [facility] 127 DO Work Phone: Start: 11-30-[address] Salima Gilman Facility:[id number] Start: 11-22-2021 Office outpatient vi sit 10 minutes Salima Gilman Work Phone: [facility] Work Phone: Start: 11-22-2021 Patient encounter procedure [facility] Work Phone: Start: 08-18-2021 Rx Change Salima garcia Work Phone: [facility] Work Phone: Start: 07-12-2021 Office outpatient vi sit 15 minutes Salima Gilman Work Phone: [facility] Work Phone: Start: 06-23-2021 FUV, Provider: Samara Roe, Status: Pen, Time: 1:15 PM Salima Yuenabrese Work Phone: [facility] 127 DO Work Phone: Start: 06-23-2021 Patient encounter procedure Salima Kodak YuenKalina Work Phone: [facility] 127 DO Work Phone: Start: 06-22-2021 Chart Update Salima Yuen florindaese Work Phone: [facility] 127 DO Work Phone: Start: 06-17-2021 Chart Update Salima Yuen florindaese Work Phone: [facility] Work Phone: Start: 06-14-2021 End: 09-12-2021 Patient encounter procedure SALIMA Kodak YUENKALINA [facility] Start: 06-07-2021 Patient encounter procedure Salima A Kalina Work Phone: [facility] 127 DO Work Phone: Start: 05-23-2021 Chart Update Salima Yuen radha Work Phone: [facility] 127 DO Work Phone: Start: 05-11-2021 Office outpatient ne w 45 minutes Salima Spenceese Work Phone: [facility] 127 DO Work Phone: Start: 05-03-2021 Patient encounter procedure [facility]ese [facility] Work Phone: Start: 04-27-2021 AUDIT Salima garcia Work Phone: [facility] Work Phone: Start: 04-22-2021 [facility], Provider: Simone Coulter, Status: Pen, Time: 8:00 AM Salima Gilman Work Phone: [facility] Work Phone: Start: 04-21-2021 Chart Update Salima garcia Work Phone: [facility] Work Phone: Start: 12-09-2020 Patient encounter procedure Salima Gilman Work Phone: [facility] Work Phone: Start: 11-23-2020 AUDIT Salima garcia Work Phone: [facility] Work Phone: Start: 10-29-2020 Patient encounter procedure Luna Zacarias PA-C [facility] Work Phone: Start: 10-14-2020 Patient encounter procedure Simone Coulter DO [facility] Work Phone: Start: 09-24-2020 Patient encounter procedure Simone Coulter DO [facility] Work Phone: Start: 09-16-2020 Patient encounter procedure Simone Coulter DO [facility] Work Phone: Start: 08-17-2020 Patient encounter procedure Simone Coulter DO [facility] Work Phone: Start: 08-09-2020 Patient encounter procedure Simone Coulter DO [facility] Work Phone: Start: 06-28-2020 Patient encounter procedure Simone Coulter DO [facility] [facility] [place] Work Phone: Start: 06-15-2020 Patient encounter procedure Simone Coulter DO [facility] [place] Work Phone: Start: 05-05-2020 Patient encounter procedure Priscilla Leahy [facility] 6115 Work Phone: Start: 04-30-2020 Patient encounter procedure Priscilla Leahy [facility] 6115 Work Phone: Start: 04-26-2020 Patient encounter procedure Priscilla Leahy [facility] 6115 Work Phone: Start: 02-16-2020 Patient encounter procedure Priscilla Leahy [facility] 6115 Work Phone: Start: 01-21-2020 Patient encounter procedure Priscilla Leahy [facility] 6115 Work Phone: Start: 01-16-2020 Patient encounter procedure Priscilla Leahy [facility] 6115 Work Phone: Start: 01-12-2020 Patient encounter procedure Priscilla Leahy [facility] 6115 Work Phone: Start: 01-05-2020 Patient encounter procedure Priscilla Armond GV-[facility] A2100 DO Work Phone: Start: 10-27-2019 Patient encounter procedure Priscilla Armond NN-Xdnnsizbkd-Jrpqqv ke A2100 DO Work Phone: Start: 10-15-2019 [facility] Work Phone: Start: 08-25-2019 [facility] Start: 06-30-2019 Patient encounter procedure Salima Gilman [facility] Work Phone: Start: 05-24-2019 Patient encounter procedure Salima Gilman [facility] Work Phone: Cancer cervix - screening done Simone Coulter DO [facility] Work Phone: Comment on above: 05/24/19-WNL, HPV NEG ; Encounter for gynecological examination (general) (routine) without abnormal findings Salima Candelario Kalina Work Phone: [facility] Work Phone: Comment on above: 05/24/19-WNL, HPV NEG ; Mammography normal Salima perry Work Phone: [facility] Work Phone: Comment on above: 05/2020-cat 112/04/08 019-CAT 1; Procedures Date Procedure Procedure Detail Performing Clinician Start: 07-27-2023 ECG 12-LEAD EVIE Reyes Start: 07-27-2023 FOLLOW UP IN CARDIOLOGY EVIE AGUDELO Start: 04-16-2023 Ecg routine ecg w/le ast 12 lds w/i&r 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 SEPARATOR TENDER-DEBT MANAGEMENT COUNSELOR Work Phone: Start: 04-10-2023 LEGACY HOLTER OR ASHWIN NT HELPER METAL HANGING JOSELO HINSON Start: 04-10-2023 Xtrnl pt activtd ecg dwnld w/r&i 30 days Joselo Hinson SEPARATOR TENDER-DEBT MANAGEMENT COUNSELOR Work Phone: Start: 08-25-2022 End: 08-25-2022 EKG [...] Christian Tolbertlock Start: 06-30-2019 Scallop, IgE, IC Jennif er Kalina Start: 06-30-2019 Shrimp, IgE, IC Jendimasfe adolfo Gilman Start: 05-24-2019 Microscopic observat ion [Identifier] in Cervix by Cyto stain [facility] Arthrodesis of ankle Micah Saravianataliiasydnie Bilateral tubal ligation Mariposa Gilman Comment on [...] Author Start: 05-17-2026 Lipid panel Lipid Panel [facility] Start: 04-18-2024 ambulatory Ambulatory Facility:Kathy Borges Start: 07-16-2023 End: 07-16-2023 Patient encounter procedure 07/16/2023 11:00 AM EST Office Visit [facility] [address] [place] [id number] Federico Wing MD [address] [place] [address] [facility] Start: 05-14-2023 FUV, Provider: Federico Wing, Status: Pen, Time: 8:45 AM FUV, Provider: Federico Wing, Status: Pen, Time: 8:45 AM [facility] Work Phone: Start: 05-14-2023 End: 05-14-2023 Patient encounter procedure 05/14/2023 8:45 AM EST Office Visit [facility] [address] [place] [address] Federico Wing MD [address] [place] [address] [facility] Start: 04-16-2023 End: 04-16-2023 Patient encounter procedure 04/16/2023 1:00 PM EDT Office Visit [facility] [address] [place] [address] 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, SEPARATOR TENDER-DEBT MANAGEMENT COUNSELOR [address] [place] [address] [facility] Start: 03-05-2023 EVENT GRACY, Provider : [id number] ICU SPECIALIST 1,[id number], Status: Pen, Time: 3:00 PM EVENT GRACY, Provider: [id number] ICU SPECIALIST 1,[id number], Status: Pen, Time: 3:00 PM [facility] DO Work Phone: Start: 02-16-2023 Influenza vaccination Influenza Vacc ine (#1) [facility] Start: 12-28-2022 Screening for malignant neoplasm of breast Mammogram [facility] Start: 11-08-2022 FUVRESULTS, Provider : Federico Wing, Status: Pen, Time: 11:45 AM FUVRESULTS, Provider: Federico Wing, Status: Pen, Time: 11:45 AM [facility] Work Phone: Start: 09-20-2022 FUVHOSP, Provider: Federico Wing, Status: Pen, Time: 11:45 AM FUVHOSP, Provider: Federico Wing, Status: Pen, Time: 11:45 AM [facility] Work Phone: Start: 09-20-2022 Patient encounter procedure [facility] Cardiology [place] Start: 09-01-2022 [facility], Provider: Federico Wing, Status: Pen, Time: 9:00 AM [facility], Provider: Federico Wing, Status: Pen, Time: 9:00 AM [facility] DO Work Phone: Start: 08-29-2022 EKG, Provider: LOEN SCHMIDT ICU SPECIALIST 1,[id number], Status: Pen, Time: 10:00 AM EKG, Provider: LEON HENRIQUEZHC02 ICU SPECIALIST 1,[id number], Status: Pen, Time: 10:00 AM [facility] Work Phone: Start: 08-29-2022 Patient encounter procedure [facility] Cardiology [place] Start: 08-28-2022 EKG, Provider: LEON SCHMIDT ICU SPECIALIST 1,[id number], Status: Pen, Time: 10:00 AM EKG, Provider: LEON SCHMIDT ICU SPECIALIST 1,[id number], Status: Pen, Time: 10:00 AM [facility] Work Phone: Start: 08-28-2022 Patient encounter procedure [facility]iology [place] Start: 08-25-2022 Arrhythmia Arrhythmia Meek e: 25-Aug-2022 [facility] Start: 08-24-2022 Arrhythmia Arrhythmia Meek e: 24-Aug-2022 [facility] Start: 08-22-2022 Chest pain Chest pain Meek e: 22-Aug-2022 [facility] Start: 08-14-2022 Screening for malignant neoplasm of colon [facility] Start: 05-24-2022 Screening for malignant neoplasm of cervix [facility] Start: 12-21-2021 FUV, Provider: Samara Roe, Status: Pen, Time: 9:45 AM FUV, Provider: Samara Roe, Status: Pen, Time: 9:45 AM [facility] 127 DO Work Phone: Start: 09-30-2021 COVID-19 Vaccine (2 - Booster for Chioma series) COVID-19 Vaccine (2 - Booster for Chioma series) [facility] Start: 06-23-2021 FUV, Provider: Samara Roe, Status: Pen, Time: 1:15 PM FUV, Provider: Samara Roe, Status: Pen, Time: 1:15 PM [facility] 127 DO Work Phone: Start: 06-16-2021 FUV, Provider: Samara Roe, Status: Pen, Time: 1:00 PM FUV, Provider: Samara Roe, Status: Pen, Time: 1:00 PM [facility] 127 DO Work Phone: Start: 06-07-2021 HOLTER 48, Provider: LEON GREENWOOD ICU SPECIALIST 1,[id number], Status: Pen, Time: 11:00 AM HOLTER 48, Provider: LEON GREENWOOD ICU SPECIALIST 1,[id number], Status: Pen, Time: 11:00 AM [facility] 127 DO Work Phone: Start: 06-07-2021 STRESS ESTELLE, Provider : [facility] NUCLEAR 01,[id number], Status: Pen, Time: 10:30 AM STRESS ESTELLE, Provider: [facility] NUCLEAR 01,[id number], Status: Pen, Time: 10:30 AM [facility] 127 DO Work Phone: Start: 06-07-2021 ECHO, Provider: [facility] ULTRASOUND 01,[id number], Status: Pen, Time: 9:45 AM ECHO, Provider: [facility] ULTRASOUND 01,[id number], Status: Pen, Time: 9:45 AM -[facility] 127 DO Work Phone: Start: 05-11-2021 NPVRFRL, Provider: Samara Roe, Status: Pen, Time: 9:30 AM NPVRFRL, Provider: Samara Roe, Status: Pen, Time: 9:30 AM [facility] Work Phone: Start: 05-11-2021 NPVRFRL, Provider: Enrrique Porter, Status: Pen, Time: 9:15 AM NPVRFRL, Provider: Enrrique Porter, Status: Pen, Time: 9:15 AM [facility] Work Phone: Start: 05-10-2021 FUV, Provider: Salima Gilman, Status: Pen, Time: 8:45 AM FUV, Provider: Salima Gilman, Status: Pen, Time: 8:45 AM [facility] Work Phone: Start: 05-03-2021 POV, Provider: Simone Coulter, Status: Pen, Time: 10:15 AM POV, Provider: Simone Coulter, Status: Pen, Time: 10:15 AM [facility] Work Phone: Start: 04-12-2021 POV, Provider: Simone Coulter, Status: Pen, Time: 9:00 AM POV, Provider: Simone Coulter, Status: Pen, Time: 9:00 AM -[facility] Work Phone: Start: 04-01-2021 [facility], Provider: Simone Coulter, Status: Pen, Time: 7:30 AM [facility], Provider: Simone Coulter, Status: Pen, Time: 7:30 AM -[facility] [facility] [place] Work Phone: Start: 12-09-2020 FUV, Provider: Simone Coulter, Status: Pen, Time: 8:00 AM FUV, Provider: Simone Coulter, Status: Pen, Time: 8:00 AM [facility] Work Phone: Start: 2018 Zoster Vaccines (1 o f 2) Zoster Vaccines (1 of 2) [facility] Start: 1990 DTaP/Tdap/Td Vaccine s (1 - Tdap) DTaP/Tdap/Td Vaccines (1 - Tdap) [facility] Start: 1989 Screening for malignant neoplasm of cervix HPV/Cotest [facility] Start: 1986 Diabetes mellitus screening Diabetes Screening [facility] Start: 1986 Hepatitis C screening Hepatitis C [facility] Start: 1974 Pneumococcal Vaccine : Pediatrics (0 to 5 Years) and At-Risk Patients (6 to 64 Years) (1 - PCV) Pneumococcal Vaccine: Pediatrics (0 to 5 Years) and At-Risk Patients (6 to 64 Years) (1 - PCV) [facility] Start: 1969 MMR Vaccines (1 of 1 - Standard series) MMR Vaccines (1 of 1 - Standard series) [facility] Start: 1968 Hepatitis B Vaccines (1 of 3 - 3-dose series) Hepatitis B Vaccines (1 of 3 - 3-dose series) [facility] Start: 1968 HIV screening HIV Screening [facility] Start: 1968 Screening for malignant neoplasm of colon [facility] Start: 1968 Yearly Adult Physical Yearly Adult P hysical [facility] Chest pain Chest pain [facility] ECG 12 Lead ECG 12 Lead ECG Routine High risk medication use Palpitations Premature ventricular contractions (PVCs) (VPCs) 04/16/2023 3:53 PM EDT [facility] Service Area Work Phone: End: 04-10-2023 Holter monitor study [facility] Service Area Work Phone: Comment on above: Once for 1 Occurrenc es starting 04/10/2023 until 04/10/2023 [facility] Work Phone: NEGATED: Highlighted row has been ruled out! Planned Goals not documented [facility] Work Phone: Immunizations Immunization Date Immunization Notes Care Provider Wendy wei 08-05-2021 [place] COVID-19 Vaccine 0.5 ML Intramuscular Suspension Salima Kodak Gilman Work Phone: [facility] Work Phone: 06-29-2021 Covid-19 Non-us Vaccine, Product Unknown Evie Barriosel [facility] Work Phone: [facility] Work Phone: Payers Date Payer Category Payer Unknown [id number] 2022 Unknown 2022 Unknown [id number] 1968 Unknown [id number] 2.16.84 0.1.992551.3.579.2.593 1968 Unknown [id number] 2.16.8 40.1.850716.3.579.2.1067 1968 Unknown [id number] 2.16.8 40.1.421044.3.579.2.1067 1968 Unknown [id number] 2.16.8 40.1.799002.3.579.2.1067 1968 Unknown [id number] 2.16.8 40.1.385343.3.579.2.8 1968 Unknown [id number] 2.16.8 40.1.796431.3.579.2.1067 1968 Unknown [id number] 2.16. 840.1.397521.3.579.2.356 1968 Unknown [id number] 2.16. 840.1.565251.3.579.2.356 1968 Unknown [id number] 2.16. 840.1.388323.3.579.2.356 1968 Unknown [id number] 2.16. 840.1.818970.3.579.2.356 1968 Unknown [id number] 2.16. 840.1.903909.3.579.2.356 1968 Unknown [id number] 2.16. 840.1.676581.3.579.2.356 1968 Unknown [id number] 2.16. 840.1.340424.3.579.2.356 1968 Unknown [id number] 2.16. 840.1.805802.3.579.2.356 1968 Unknown [id number] 2.16.8 40.1.125310.3.579.2.1245 1968 Unknown [id number] 2.16.84 0.1.947260.3.579.2.1258 1968 Unknown [id number] 2.16.84 0.1.808219.3.579.2.1258 1968 Unknown [id number] 2.16.84 0.1.521995.3.579.2.1258 1968 Unknown [id number] 2.16.84 0.1.954112.3.579.2.1258 1968 Unknown [id number] 2.16.84 0.1.409138.3.579.2.1258 1968 Unknown [id number] 2.16.84 0.1.144193.3.579.2.1258 1968 Unknown [id number] 2.16.84 0.1.310909.3.579.2.1258 1968 Unknown [id number] 2.16.84 0.1.980090.3.579.2.1258 1968 Unknown [id number] 2.16.84 0.1.078714.3.579.2.1258 1968 Unknown [id number] 2.16.84 0.1.701508.3.579.2.1259 1968 Unknown [id number] 2.16.8 40.1.134794.3.579.2.727 1968 Unknown [id number] 2.16.8 40.1.585394.3.579.2.727 1968 Unknown [id number] 2.16.8 40.1.379394.3.579.2.727 1968 Unknown [id number] 2.16.8 40.1.001364.3.579.2.727 1968 Unknown [id number] 2.16.8 40.1.635910.3.579.2.727 1968 Unknown [id number] 2.16.8 40.1.142853.3.579.2.727 1968 Unknown [id number] 2.16.8 40.1.018186.3.579.2.727 1970 Unknown [id number] 2.16.8 [id number] 1970 Unknown [id number] 2.16.8 [id number] 1970 Unknown [id number] 2.16.8 [id number] 1970 Unknown [id number] 2.16.8 [id number] 1970 Unknown [id number] 2.16.8 [id number] 1970 Unknown [id number] 2.16.8 [id number] 1961 Unknown [id number] Private Health Insurance [id number] Unknown [id number] Social History Date Type Detail Facility Start: 04-10-2023 End: 04-13-2023 Never a smoker Never a smoker [facility] Work Phone: Comment on above: 3-4 cups coffee corky y, occasional tea/soda; Start: 04-10-2023 End: 04-13-2023 Sex Assigned At Female [facility] Tobacco smoking status No Smoking Status Entered [facility] Start: 07-12-2022 End: 01-18-2024 Tobacco smoking status Never smoked tobacco (finding) [facility] Tobacco smoking status Never [facility] Tobacco smoking consumption unknown [facility] Start: 04-10-2023 Tobacco use and exposure Smokeless tobacco non-user [facility] Work Phone: Start: 04-10-2023 End: 04-13-2023 Alcohol intake Lifetime non-drinker (finding) [facility] Work Phone: Start: 1970 Sex Assigned At Not on file [facility] Work Phone: Start: 04-06-2023 End: 04-16-2023 Exposure to SARS-CoV-2 (event) Not sure [facility] NEGATED: Highlighted row - - [facility] Work Phone: Functional Status Date Assessment Result Facility 01-18-2024 Functional Status N/A [facility] 11-12-2023 Functional Status N/A [facility] 2023 Functional Status N/A [facility] 09-23-2022 Functional Status N/A [facility] 08-07-2022 Functional Status No [facility] 07-12-2022 Functional Status No [facility] Functional observable [facility] NEGATED: Highlighted row Functional performance Functional status health issues are not documented Disease [facility] Work Phone: Mental Status Date Assessment Result Facility 08-24-2022 Cognitive functi ons :28 [facility] NEGATED: Highlighted row Cognitive function [Interpretation] Cognitive status health issues are not documented Disease [facility] Work Phone: Clinical Notes 06-17-2021 to 11-13-2023 [...] Follow these instructions at home: Medicines Take effq-hdq-virpolo and prescription medicines only as told by [...] provider. Document Revised: 08/18/2021 Document Reviewed: 08/18/2021 [facility] Patient Education 2022 Bloxr. Follow Up Care 11/12/2023 20:34:48 With:Skip Gonzalez Address:Unknown When:11/15/2023 With:Micah Diaz Address: [address] [place] [id number] When:11/15/2023 Comments:Call the office of your primary [...] legs, or any new or worsening symptoms. [facility] 11-12-2023 Evaluation + Plan note Extrac chantel [...] Date:01/11/2024 01:20:00 PM Scheduled Provider:Micah Diaz DO Location:[facility] Appointment Type: Open Future Scheduled Tests Radiology* MA Mamm Screen w/CAD if perf and 3D Ismael 10/02/23 [facility]04-17-2024 Hospital Discharge instructions Follow Up Care 10/03/2023 16:00:29 With:Micah Diaz DO, JAVID, PED Address: [facility] [address] [place] [address] [phone] When:3 months Comments:20 min slotTo go instructions:If you decide you want to start bupropion, let me know and I'll submit 150mg XLStop pop for a week, if that doesn't help your symptoms, I recommend that you see a ENT to discuss--------*When you see providers outside of [facility], please request that they send office [...] age 48Follow up 3 months [facility] [place] 04-16-2024 Hospital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
== END 2024-03-12 13:16 | disposition home or self-care (01) ==
LOC: EC 13:15
PROVIDERS: Visit Provider Podiatrist Foot & Ankle Surgery
DX: M79.671 Pain in right foot (principal); M24.674 Ankylosis, right foot
CPT/HCPCS: 73630

== ENCOUNTER 2024-04-04 07:43 | Outpatient (RCR) | payer OTHER, BC, SELFPAY | END 2024-04-19 15:27 | disposition home or self-care (01) | LOC: PT 07:43 | PROVIDERS: Visit Provider Podiatrist Foot & Ankle Surgery | DX: M76.811 Anterior tibial syndrome, right leg (principal); M79.661 Pain in right lower leg | CPT/HCPCS: 97033; 97035; 97110; 97140; 97161 ==

== ENCOUNTER 2024-04-23 08:15 | Outpatient (OUT) | payer OTHER, BC, SELFPAY ==
--- NOTE | 2024-04-23 | XR_ITS ---
[address] [address] Patient Name: NAN HANNA MRN: [id number] date: 1970 Sex: F Assigned Patient [facility] Current Patient Location: Accession/Order Number: [id number] Exam Date: 04/23/2024 08:16 Report Date: 04/28/2024 07:52 At the request of: CYNDI CHEW Procedure: XR foot RT min 3V PROCEDURE: XR foot RT min 3V COMPARISON: 03/12/2024 HISTORY: RIGHT FOOT PAIN FINDINGS: BONES:Stable subtalar fusion with 3 screws. No significant interval bone formation. Single surgical staple base of the first metatarsal SOFT TISSUES:Negative. No visible soft tissue swelling. EFFUSION:None visible. OTHER: Negative. XR/XR foot RT min 3V IMPRESSION: Stable postsurgical changes with no significant bone formation Electronically authenticated by: MARKO BOWDEN Date: 04/28/2024 07:52
--- OUTSIDE RECORDS SUMMARY | 2024-04-23 08:26 | XMS_ITS | CCD ---
Author Organization [facility] Care Team Providers Care Dry Roller Name Role Phone Salima Gilman Unavailable Unavailable Hien Gilmanfer A Unavailable UnavailChristian Kessler Unavailable Unavailable Salima Gilman A Unavailable UnavailPriscilla Rose Unavailable Unavailable Maday Schmitz Unavailable Unavailable Salima Gilman Unavailable Unava ilable Celi Barrett Unavailable Unavailable Priscilla Leahy Unavailable Unavailable Simone Coulter DO Unavailable Unavailable Rell WALL Luna Unavailable Unavailable Salima Gilman MD Unavailable Unavailab andree Schmitz SENIOR FINANCIAL CONSULTANT-PHYSICS AND ASTRONOMY PROFESSOR Maday Unavailable Unavaila ble Salima Gilman Unavailable UnavailCeli Kang Unavailable Unavailable Priscilla Leahy Unavailable Unavailable Celi Barrett Unavailable Unavailable Priscilla Leahy Unavailable Unavailable Salima Gilman Unavailable Unavailable Unavailable SALIMA GILMAN Primary Care Physician Kayla Dent Primary Care Physician [phone] CAMPBELL HERNANDEZ Consulting Unavailable KAYLA DENT Primary Care Unavailable CINTHIA ., MAGDA Admitting Unavailable CINTHIA ., MAGDA Attending Unavailable MARKO GARY Consulting Unavailable BONY SOLARES Consulting Unavailable CINTHIA ., MAGDA Consulting Unavailable Kayla Dent Unavailable Unavailable Unavailable Unavailable Kayla Dent Unavailable Federico Wing Unavailable Skip Kelly Unavailable Unavailable Federico Wing Referring Unavailable Federico Wing Attending Unavailable Olena, Dr. Kayla Hassan Primary Care Unavailab andree Gilman, Dr. Salima Myles Primary Care U navailable Kamryn, MsFaby Winn Attending Unavailable Kalina, Dr. Salima Myles Primary Care U navailable Kamryn, MsFaby Winn Attending Unavailable Olena, Dr. [...] Unavailab andree HINSON, LINDA HOUSTON Attending Unavailable SRAVAN, LINDA HOUSTON Referring Unavailable Carlos, Dr. Skip Smith Referring U navailable Kalina, Dr. Salima Myles Primary Care U navailable MECCA, MD FEDERICO MANSFIELD Attending Unavailabl e MD FEDERICO WING Referring Unavailprecious Dent, Dr. Kayla Hassan Primary Care Unavailab MD FEDERICO French Attending Unavailabl e MECCA, MD FEDERICO MANSFIELD Referring Unavailprecious Dent, Dr. Kayla Hassan Primary Care Unavailab andree WING, MD FEDERICO MANSFIELD Attending Unavailabl e MD FEDERICO WING Referring Unavailabl e MECCA, MD FEDERICO MANSFIELD Attending Unavailprecious Dent, Dr. Kayla Hassan Primary Care Unavailab andree Dent DO, Kayla Hassan Primary Care Provider [phone] Olena DIMAS, Kayla Hassan Primary Care Provider [phone] JOSELO HINSON Referring Unavaila lisandra DENT, KAYLA HASSAN Primary Care Unavailable Olena DIMAS, Kayla Hassan Primary Care Provider Unav Amanda Horner Primary Care Physician Unavail able JUAN [...] Attending Unavailab le TAVO, DEIRDRE Referring Unavailable DO Amanda Diaz Admitting Unavailable DO Amanda Diaz Attending Unavailable Atilio Beltran Attending Unavailable DO Amanda Diaz Attending Unavailable DO Amanda Diaz Attending Unavailable CYNDI CHEW Attending Unavailable CYNDI CHEW Referring Unavailable CYNDI CHEW Admitting Unavailable CYNDI CHEW Attending Unavailable CYNDI CHEW Referring Unavailable CYNDI CHEW Referring Unavailable AMANDA DIAZ Primary Care Unavailable CYNDI CHEW Referring Unavailable NO, PCP Primary Care Unavailable Federico Wing MD Unavailable Amanda Diaz DO Primary Care Provider EVIE AGUDELO Attending Unavailable KAYLA DENT Primary Care Unavailable FEDERICO WING Attending Unavailable EVIE AGUDELO Referring Unavailable KAYLA DENT Primary Care Unavailable FEDERICO WING Attending Unavailable FEDERICO WING Referring Unavailable AMANDA DIAZ Primary Care Unavailabl e Amanda Diaz Attending Unavailable Amanda Diaz Admitting Unavailable Atilio Beltran Attending Unavailable DO Amanda Diaz Attending Unavailable DO Amanda Diaz Attending Unavailable DO Amanda Diaz Admitting Unavailable DO Amanda Diaz Attending Unavailable DO Amanda Diaz Referring Unavailable DO Amanda Diaz Admitting Unavailable DO Amanda Diaz Attending Unavailable Allergies Allergy Classification Reported Allergen(s) Allergy Type Date of Onset Reaction(s) Facility Fish (7 sources) shellfish, unspecified Food Allergy Hives, Angioedema -[facility] Work Phone: (20 sources) shellfish, unspecified; Translations: [shellfish] food allergy Hives, Angioedema, Weal (disorder) [facility] (1 source) Shellfish Drug allergy (disorder) 3 [facility] (9 sources) Shellfish; Translations: [shellfish] Drug allergy 3 Weal (disorder), Angioedema, Hives [facility] (1 source) Shellfish Facial Swelling, Hives [facility] (2 sources) SHELLFISH CONTAINING PRODUCTS; Translations: [SHELLFISH CONTAINING PRODUCTS] Propensity to adverse reactions to food (disorder) 3 [facility] Medications Current Medications Medication Drug Class(es) Dates Sig (Normalized) Sig (Original) aspirin 81 mg delayed release oral tablet (20 sources) Platelet Aggregation Inhibitor, Nonsteroidal Anti-inflammatory Drug Start: 07-12-2022 take 1 tablet by mouth once daily aspirin 81 mg Oral EC Tab 81 mg = 1 tab(s), Oral, Daily, # 30 tab(s), Refills(s) 3, Pharmacy: [id number], 152, cm, 09/23/22 22:25:00 EDT, Height/Length Dosing, 86.5, kg, 09/23/22 22:25:00 EDT, Weight Dosing Start Date: 12/24/22 Status: Ordered Aspirin Low Dose ; 81 orally once a day Quantity: 0 Refills: 0 Ordered: 22-Aug-2022 Olga Reyes Generic Substitution Allowed B Complex 100 (4 sources) Start: 01-18-2024 B Complex 100 Refill(s) 0 Start Date: 01/18/24 Status: Ordered 24 hr buPROPion hydrochloride 150 mg extended release oral tablet (2 sources) Aminoketone Start: 04-18-2024 take 1 tablet by mouth every twenty-four hours buPROPion 150 mg/24 hours XL Tab 150 mg = 1 tab(s), Oral, q24hr, # 30 tab(s), Refills(s) 5, Pharmacy: [id number], 156, cm, 04/18/24 9:22:00 EDT, Height/Length Dosing, 91.8, kg, 04/18/24 9:22:00 EDT, Weight Dosing Start Date: 04/18/24 Status: Ordered 24 HR calcium carbonate 1500 MG / cholecalciferol 500 UNT Extended Release Oral Tablet (2 sources) Vitamin D Start: 04-18-2024 take 2 tablets by mouth once daily in the morning calcium-vitamin D 600 mg-500 intl units oral tablet, extended release 2 tab(s), Oral, qAM, 80 tab(s), Refill(s) 0 Start Date: 04/18/24 Status: Ordered Zyrtec (20 sources) Histamine-1 Receptor Antagonist Start: 01-18-2024 Zyrtec Refills(s) 0 Start Date: 01/18/24 Status: Ordered take 1 capsule by [facility] once daily at bedtime cetirizine (ZyrTEC) 10 mg capsule Take 1 capsule (10 mg) by mouth once daily at bedtime. Active 10 ml EPINEPHrine 0.1 mg/ml prefilled [...] 325 mg delay ed release oral tablet (14 sources) ferrous sulfate 325 (65 Fe) MG EC tablet Take 1 capsule twice daily Active take 1 tablet by mouth twice [...] Allowed flecainide acetate 100 mg oral tablet (19 sources) Antiarrhythmic Start: 2023 End: 04-03-2024 take 1 tablet by mouth every twelve [...] 100mg. Patient would like new script please Iron Chews (2 sources) Start: 04-18-2024 Iron Chews 65 mg, Refills(s) 0 Start Date: 04/18/24 Status: Ordered itraconazole 65 mg oral capsule (2 sources) Azole Antifungal Start: 01-18-2024 take 1 capsule by mouth twice daily itraconazole 65 mg oral capsule 1 cap, Oral, BID, Refills(s) 0 Start Date: 01/18/24 Status: Ordered magnesium oxide 400 mg oral tablet (20 sources) Start: 01-18-2024 magnesium oxid e 400 [...] Start: 06-23-2021 take 2 tablets by mo ut twice daily Magnesium Oxide 400 MG Oral [...] new order take 1 capsule by mo [facility] once daily magnesium oxide 400 mg magnesium capsule Take 1 capsule (400 mg) by mouth once daily. Active meloxicam 15 mg oral tablet (3 sources) Nonsteroidal Anti-inflammatory Drug Start: 2023 meloxicam 15 mg Tab 15 mg = 1 tab(s), Refills(s) 0 Start Date: 10/02/23 Status: Ordered 24 hr metoprolol succinate 25 mg extended release oral tablet (20 sources) beta-Adrenergic Claudia Start: 03-12-2023 End: 03-21-2025 take 1 tablet by mouth once daily metoprolol 25 mg ER Tab 25 mg = 1 tab(s), Oral, Daily, # 30 tab(s), Refills(s) 3, Pharmacy: [id number], 152, cm, 09/23/22 22:25:00 EDT, Height/Length Dosing, 86.5, kg, 09/23/22 22:25:00 EDT, Weight Dosing Start Date: 03/12/23 Status: Ordered Start: 06-23-2021 take 1 tablet by sydni th once daily metoprolol 25 mg ER Tab 25 mg = 1 tab(s), Oral, Daily, # 30 tab(s), Refills(s) 3, Pharmacy: [id number], 152, cm, 07/12/22 15:54:00 EST, Height/Length Dosing, 83.4, kg, 07/12/22 15:54:00 EST, Weight Dosing Start Date: 07/12/22 Status: Ordered Multi Vitamin+ (4 sources) Start: 01-18-2024 Multi Vitamin+ Refill(s) 0 [...] Olga Reyes Generic Substitution Allowed multivitamin tablet (4 sources) take 1 tablet by sydni th once daily multivitamin tablet Take 1 tablet by mouth once daily. Active take 1 tablet by mouth once corky y multivitamin tablet Take 1 tablet by mouth once daily. 0 Active omeprazole 40 mg delayed release oral capsule (20 sources) Proton Pump Inhibitor Start: 07-14-2022 take 1 capsule by mouth once daily omeprazole 40 mg Cap-DR 40 mg = 1 cap(s), Oral, Daily, Refills(s) 0 Start Date: 07/14/22 Status: Ordered sertraline 50 mg oral tablet (20 sources) Serotonin Reuptake Inhibitor Start: 08-25-2019 take 1 tablet by mouth once daily [...] tab(s), Oral, Daily, # 90 tab(s), Refills(s) 4, Pharmacy: [id number], 156, cm, 01/18/24 11:52:00 EDT, Height/Length Dosing, 90, kg, 01/18/24 11:52:00 EDT, Weight Dosing Start Date: 02/20/24 Status: Ordered Start: 07-04-2022 take 1 tablet by sydni th once daily Vesicare 5 mg Tab 5 mg = 1 tab(s), Oral, Daily, Refills(s) 0 Start Date: 07/14/22 Status: Ordered VITAMIN B COMPLEX ORAL (2 sources) take 1 tablet by sydni th once daily VITAMIN B COMPLEX ORAL Take 1 tablet by mouth once daily. Active take 1 tablet by mouth once corky y VITAMIN B COMPLEX ORAL Take 1 tablet by mouth once daily. 0 Active Vitamin D (4 sources) Start: 01-18-2024 Vitamin D Refi lls(s) 0 Start Date: 01/18/24 Status: Ordered Completed/Discontinued [...] : 05-Jan-2020 Active 15 GM Tube cholecalciferol 0.125 mg oral tablet (20 sources) Vitamin D End: 04-03-2024 take 1 tablet by mouth once daily cholecalciferol (Vitamin D3) 5,000 Units tablet Take 1 tablet (5,000 Units) by mouth once daily. 04/03/2024 Discontinued (Med List Cleanup) End: 04-16-2023 take 1 tablet by mouth once daily cholecalciferol (Vitamin D-3) 50 MCG (2000 UT) tablet Take 1 tablet (2,000 Units) by mouth once daily. 0 04/16/2023 Discontinued (Med List Cleanup) take 1 capsule by [facility] once daily Vitamin D3 125 MCG (5000 UT) Oral Capsule 1 capsule daily Quantity: 0 Refills: 0 Ordered: 18-Aug-2022 DO Active take 1 capsule by [facility] once daily Vitamin D3 1000 intl units (25 mcg) [...] ONLY. Quantity: 1 Refills: 3 Ordered: 23-Nov-2020 Salmia Gilman MD Start : 23-Nov-2020 Active fluticasone [...] 0 Refills: 0 Ordered: 11-May-2021 DO Active lysine 500 mg oral tablet (20 sources) End: 04-03-2024 lysine 500 mg tablet Take 1 tablet (500 mg) by mouth if needed. 04/03/2024 Discontinued (Med List Cleanup) take 1 tablet by mouth once corky y lysine 1,000 mg tablet Take 1 tablet (1,000 mg) by mouth once daily. 0 Active Magnesium (4 sources) take 1 tablet by mouth once daily Magnesium 400 MG Oral Tablet 1 tab qd Quantity: 30 Refills: 0 Ordered: 20-Sep-2022 DO Active methylPREDNISolone 4 mg oral tablet (2 sources) Corticosteroid Start : 04-26 methylPREDNISolone 4 MG Oral Tablet Therapy Pack Take as directed per pharmacy Quantity: 1 Refills: 1 JunMaday Matson Start : 26-Apr-2020 Active 21 Tablet Pack Multivitamin TABS (20 sources) Multivitamin TAB S TAKE 1 TABLET DAILY. Quantity: 0 Refills: 0 Ordered: 11-May-2021 DO Active pimecrolimus 10 mg/ml topical cream (2 sources) Calcineurin Inhibitor Immunosuppressant Start : 01-18 Pimecrolimus 1 % External Cream APPLY A THIN LAYER TO AFFECTED AREA(S) AND RUB IN WELL TWICE DAILY. Quantity: 1 Refills: 0 Priscilla Leahy MD Start : 19-Jan-2020 Active 30 GM Tube Probiotic CAPS (15 sources) Probiotic CAPS M ENOFIT PROBIOTIC 2 CAPSULES DAILY Quantity: 0 Refills: [...] Start: 08-27-2017 take 1 capsule by mo [facility] every twenty-four hours Tolterodine Tartrate ER 4 MG Oral Capsule Extended Release 24 Hour Quantity: 30 Refills: 0 Start : 27-Aug-2017 Active Vitamin B Complex Oral Tablet (20 sources) [facility] Vitamin B Complex Oral Tablet TAKE 1 TABLET DAILY. Quantity: 0 Refills: 0 Ordered: 11-May-2021 DO Active Problems Active Problems Problem Classification Problem Date Documented Date Episodic/Chronic Cardiac dysrhythmias (20 sources) Ventricular premature beats; Translations: [Other premature beats] Onset: 07-05-2022 08-22-2022 Chronic Conditions associated with dizziness or vertigo (2 sources) Lightheadedness; Translations: [Dizziness and giddiness] 08-22-2022 Episodic Diseases of mouth; excluding dental (6 sources) Glossopyrosis ; Translations: [Glossodynia] Onset: 01-18-2024 Episodic Esophageal disorders (8 sources) Gastroesophageal reflux disease without esophagitis; Translations: [Gastro-esophageal reflux disease without esophagitis] Onset: 2023 Chronic Fracture of lower limb (1 source) Closed fracture of lower leg; Translations: [Other fracture of unspecified lower leg, subsequent encounter for closed fracture with delayed healing] Onset: 04-18-2024 Episodic Genitourinary symptoms and ill-defined conditions (2 sources) Stress incontinence (female) (male); Translations: [Unspecified urinary incontinence] Onset: 07-05-2022 Chronic Immunizations and screening for infectious disease (20 sources) Patient encounter status; Translations: [Other specified vaccination] Onset: 2023 Episodic Menopausal disorders (20 sources) Menopausal symptom; Translations: [Symptomatic menopausal or female climacteric states] Onset: 04-10-2023 04-10-2023 Chronic Menstrual disorders (1 source) Missed period; Translations: [Missed menses] Chronic Mood disorders (14 sources) Mood swings; 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] Onset: 2023 Chronic Mood disorders (1 source) Mood disorders; Translations: [DEPRESSION UNSPECIFIED] Onset: 07-05-2022 Mycoses (6 sources) Candidal intertrigo; Translations: [Candidiasis of skin and nails] Episodic Nonspecific chest pain (9 sources) Chest pain, unspecified; Translations: [Chest pain] Onset: 06-29-2022 Episodic Comment on above: CHEST PAIN Osteoarthritis (7 sources) 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; Translations: [Post-traumatic osteoarthritis, right ankle and foot] Onset: 05-04-2023 01-16-2024 Chronic Comment on above: Outside Source Comme nt: Comment on above: w/ Varus foot deformity, displaced fx of calcaneus Other aftercare (7 sources) Drug therapy finding; Translations: [Long-term (current) use of other medications] Episodic Other aftercare (7 sources) Taking high risk medication; Translations: [Other supervisor intermediates (current) drug therapy] Onset: 04-13-2023 04-16-2023 Episodic Other bone disease and musculoskeletal deformities (1 source) Disorder of bone; Translations: [Other specified disorders of bone density and structure, unspecified site] Onset: 04-18-2024 Episodic Other bone disease and musculoskeletal deformities (2 sources) Osteopenia 04-18-2024 Episodic Other congenital anomalies (4 sources) 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 Other connective tissue disease (3 sources) Hand pain; Translations: [Pain in limb] Episodic Other connective tissue disease (3 sources) Disorder of muscle; Translations: [Other specified disorders of muscle] Onset: 2023 Episodic Other connective tissue disease (7 sources) Pelvic floor dysfunction 2023 Episodic Other connective tissue disease (1 source) H/O: arthrodesis; Translations: [Arthrodesis status] Onset: 04-18-2024 Episodic Other diseases of bladder and urethra (1 source) Detrusor overactivity; Translations: [Overactive bladder] Onset: 2023 Chronic Other diseases of bladder and urethra (7 sources) Overactive bladder 2023 Chronic Other female genital disorders (1 source) Postcoital bleeding; Translations: [PCB (post coital bleeding)] Chronic Other female genital disorders (1 source) Polyp of cervix; Translations: [Cervical polyp] Episodic Other female genital disorders (2 sources) History of recurrent vaginal discharge; Translations: [History of vaginal discharge] Episodic Other infections; including parasitic (18 sources) Late effects of other and unspecified infectious and parasitic diseases; 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 Other lower respiratory disease (1 source) Shortness of breath; Translations: [SHORTNESS OF BREATH] Onset: 07-05-2022 Episodic Other nervous system disorders (20 sources) Carpal tunnel syndrome; Translations: [Carpal tunnel syndrome] Chronic Other nervous system disorders (4 sources) Bilateral carpal tunnel syndrome; Translations: [Carpal tunnel syndrome, bilateral upper limbs] Onset: 04-10-2023 04-10-2023 Chronic Other nervous system disorders (1 source) Chronic pain; Translations: [Other chronic pain] Chronic Other nervous system disorders (7 sources) Intolerant of heat 2023 Episodic Other non-traumatic joint disorders (1 source) Ankle joint pain; Translations: [Pain in right ankle and joints of right foot] Episodic Other non-traumatic joint disorders (1 source) Other instability, right ankle; Translations: [Other instability, right ankle] Onset: 03-14-2024 Episodic Other non-traumatic joint disorders (1 source) Other instability, unspecified joint; Translations: [Other instability, unspecified joint] Onset: 02-15-2024 Episodic Other non-traumatic joint disorders (2 sources) Delayed union of ankle joint 04-18-2024 Episodic Other nutritional; endocrine; and metabolic disorders (20 sources) Body mass index 30+ - obesity; Translations: [Obesity, unspecified] Onset: 04-10-2023 04-10-2023 Chronic Other nutritional; endocrine; and metabolic disorders (12 sources) Obesity; Translations: [Obesity, unspecified] Onset: 04-13-2023 04-13-2023 Chronic Other nutritional; endocrine; and metabolic disorders (1 source) Obesity, unspecified; Translations: [Obesity, unspecified] Onset: 08-25-2022 Chronic Other nutritional; endocrine; and metabolic disorders (1 source) Body mass index (BMI) 35.0-35.9, adult; Translations: [Body mass index [BMI] 35.0-35.9, adult] Onset: 08-25-2022 Chronic Other nutritional; endocrine; and metabolic disorders (2 sources) Obese class II; Translations: [Body mass index (BMI) 36.0-36.9, adult] Onset: 01-18-2024 Chronic Other nutritional; endocrine; and metabolic disorders (2 sources) Body mass index (BMI) 39.0-39.9, adult; Translations: [Body mass index (BMI) 39.0-39.9, adult] Onset: 04-03-2024 Chronic Other nutritional; endocrine; and metabolic disorders (2 sources) Body mass index (BMI) 36.0-36.9, adult; Translations: [Body mass index (BMI) 36.0-36.9, adult] Onset: 07-27-2023 Chronic Other nutritional; endocrine; and metabolic disorders (5 sources) Weight gain; Translations: [Abnormal weight gain] Episodic Other upper respiratory disease (20 sources) Rhinitis; [...] encounter] Onset: 09-24-2022 Episodic Residual codes; unclassified (4 sources) Finding related to sleep; Translations: [Sleep apnea, unspecified] Onset: 04-10-2023 04-10-2023 Chronic Residual codes; unclassified (1 source) Acquired absence of other specified parts of digestive tract; Translations: [Acquired absence of other specified parts of digestive tract] Onset: 08-25-2022 Episodic Residual codes; unclassified (1 source) Past history of procedure; Translations: [Other specified postprocedural states] Onset: 2023 Episodic Residual codes; unclassified (1 source) Other general symptoms and signs; Translations: [Other general symptoms and signs] Onset: 2023 Episodic Residual codes; unclassified (4 sources) Menopause present 01-16-2024 Episodic Residual codes; unclassified (1 source) Never smoked tobacco; Translations: [Other specified health status] 04-03-2024 Episodic Screening and history of mental health and substance abuse codes (1 source) Personal history of nicotine dependence; Translations: [Personal history of nicotine dependence] Onset: 08-25-2022 Episodic Unclassified (16 sources) Patient encounter status; Translations: [Encounter for screening mammogram for breast cancer] 2023 Unclassified (20 sources) Never smoked tobacco; Translations: [Never a smoker] 04-03-2024 Unclassified (1 source) CONTACT W/AND (SUSP) EXPOS COVID-19; Translations: [CONTACT W/AND (SUSP) EXPOS COVID-19] Onset: 07-05-2022 Unclassified (1 source) [facility] 3/9 08-24-2022 Comment on above: [facility] 08/24 Unclassified (2 sources) AND-[facility] 08-25-2022 Comment [...] the right breast, overlapping quadrants] Onset: 12-28-2021 Unclassified (2 sources) History of arthrodesis of ankle 04-18-2024 Past or Other Problems Problem Classification Problem Date Documented Da te Episodic/Chronic Abdominal pain (20 sources) Pain in female pelvis; Translations: [Unspecified symptom associated with female genital organs] Onset: 04-10-2023 04-10-2023 Episodic Acute bronchitis (20 sources) Acute bronchitis; Translations: [Acute bronchitis] Onset: 04-10-2023 04-10-2023 Episodic Allergic reactions (20 sources) Shellfish allergy; Translations: [Food allergy] Onset: 04-13-2023 04-13-2023 Episodic Cardiac dysrhythmias (20 sources) Palpitations; Translations: [Palpitations] Onset: 04-10-2023 08-22-2022 Episodic Deficiency and other anemia (4 sources) Iron deficiency anemia; Translations: [Iron deficiency anemia, unspecified] Onset: 06-02-2015 04-10-2023 Episodic Lymphadenitis (20 sources) Lymphadenopathy; Translations: [Enlargement of lymph nodes] Onset: 04-10-2023 04-10-2023 Episodic Mood disorders (20 sources) Mood swings; Translations: [Emotional lability] Onset: 04-10-2023 04-10-2023 Episodic Nonmalignant breast conditions (18 sources) Breast lump; Translations: [Lump or mass in breast] Onset: 04-10-2023 04-10-2023 Episodic Other aftercare (2 sources) Other supervisor intermediates (current) drug therapy; Translations: [Other care home (current) drug therapy] Onset: 04-13-2023 Episodic Other and unspecified benign neoplasm (20 sources) Melanocytic nevus; Translations: [Benign neoplasm of skin, site unspecified] Onset: 04-10-2023 04-10-2023 Episodic Other female genital disorders (1 source) Vaginal discharge; Translations: [Vaginal discharge] Episodic Other gastrointestinal disorders (20 sources) Pelvic mass; Translations: [Abdominal or pelvic swelling, mass, or lump, unspecified site] Onset: 04-10-2023 04-10-2023 Episodic Other gastrointestinal disorders (2 sources) Heartburn Onset: 05-15-2023 01-16-2024 Episodic Other infections; including parasitic (20 sources) Personal history of other infectious and parasitic diseases; Translations: [Personal history of COVID-19] Onset: 04-10-2023 04-10-2023 Episodic Other lower respiratory disease (20 sources) Habitual snoring; Translations: [Other respiratory abnormalities] Onset: 04-10-2023 04-10-2023 Episodic Other lower respiratory disease (4 sources) Chronic cough; Translations: [Chronic cough] Onset: 04-10-2023 04-10-2023 Episodic Other lower respiratory disease (3 sources) Cough; 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] Onset: 04-13-2023 04-13-2023 Episodic Other nervous system disorders (20 sources) Postoperative pain ; Translations: [Other acute postoperative pain] Onset: 04-10-2023 04-10-2023 Episodic Other screening for suspected conditions (not mental disorders or infectious disease) (20 sources) Cancer cervix - screening done; Translations: [Patient encounter status] Onset: 04-10-2023 04-10-2023 Episodic Comment on above: cologuard 07/2019-neg atve; Residual codes; unclassified (2 sources) Other specified health status; Translations: [Other specified health status] Onset: 07-27-2023 Episodic Unclassified (1 source) Cancer cervix screening status; Translations: [Cervical cancer screening] Unclassified (12 sources) Mammography normal; Translations: [History of Mammogram normal] Comment on above: 05/2020-cat 112/17/2 019-CAT 1; Unclassified (20 sources) Patient status finding; Translations: [Patient new to provider] Unclassified (1 source) Exposure to 2019 novel coronavirus; Translations: [Contact with and (suspected) exposure to COVID19] Viral infection (20 sources) Other specified viral infection; Translations: [Disease caused by 2019-nCoV] Resolved: 09-24-2020 Episodic NEGATED: Highlighted row has not occurred!Residual codes; unclassified (20 sources) Disease Episodic Results Test Name Value Interpretation Reference Range Facility Family Medicine Office/Clini c Noteon 04-21-2024 Family Medicine Office/Clinic Note Family Medicine Office/Clinic Note Chief Complaint Chronic Condition follow up HPI Staff Patient here for 3 month F/U MDD,Weight FERNANDO 01/18/24 Labs 11/12/23 Follow up for Mental Status: Currently taking Sertraline, would like to discuss increase. She has seen Yannick Garcia, in the past (about a year ago). She doesn't think she needs to go back at this time, noting she is still using the coping skills she obtained during sessions and they are helpful. Medication adherence- Yes, takes medication as prescribed Medication refill needed: yes Epi Pen Suicidal thoughts-Not at this time Most recent JAMEY: 6 Most recent PHQ9: 9 GERD: Stable with Omeprazole Overactive Bladder: Patient still hasn't scheduled Pelvic Floor Therapy. Weight Management: Wt at LV: 90kg 198lbs Wt today: 91.8 kg 202lbs - patient does have a boot on Patient still hasn't started state of slim. - Tongue is doing better, not as painful. - Patient is in right boot, Dr. Chew was seen 02/04 and was advised fusion surgery wasn't healing. She did have a Dexa done that was ordered, 03/14. 03/10 saw again, dx with Anterior Tibia Tendinitis, is seeing [facility] PT twice a week. Next appointment with Dr. Chew is 04/23. - Patient would like to discuss Dexa Scan results and an increase in fatigue. Stevenson: cologuard 01/31/24, negative Alicia: 02/09/24 Dexa: 03/14/24 Pap: per pt 3 years ago, WNL Flu: declines History of Present Illness 53 Years old Female here for 3 mo f/u med review HPI staff / Chief Complaint confirmed with the patient Social: The patient is ; [place] since November 05, 2021 The patient is currently working; [employer] for 1 years The patient has 3 child(jose) and 2 step children 3 grandchild(jose) no great grandchild(jose) Screening: Colon Cancer screening: cologuard negative February 06, 2024; this patient does NOT have family history of colon cancer Breast cancer screening: Birads 1 - February 11, 2024; this patient does NOT have a family history of breast cancer Pap smear: 2019? (Dr. Kayla Dent) Labs: September 2022 Diabetes/ prediabetes: A1c: Hgb A1C %: 5.8 % (10/12/23 07:34:00) Smokers/ former smokers: Low dose lung CT: never a smoker List of Providers: Cardiology - Dr. 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 Cyndi Chew [facility] To do list: _ [facility] staff / Chief Complaint confirmed with the patient Interval history: _ last april had ankle fusion surgery and ligament repair as well as arthroscopic surgery (had a distant calcaneus fracture that never healed well; causing issues with ambulation and pain) March 19, 2024 bone density test reveals osteopenia February 11, 2024 -mammogram negative February 06, 2024 Cologuard negative January 18, 2024 -last appointment here Did not complete mammogram Did not pursue pelvic floor therapy Counted calories but did not make major changes in my diet Reporting a new burning sensation along the sides of her tongue Has seen a dentist who reported that her exam was normal *hasn't started state of slim discussed referral to bariatric surgery; declined MDD - i wonder if this complicates her progress towards weight loss painful tongue - referral to ENT pelvic floor dysfunction - declines PT again ok to call for referral see additional tagged info below f/u 3 months (anything tagged from the patients medical record will be at the bottom of this section) LABS Cr/eGFR: eGFR: 75 mL/min/1.73 m2 (11/12/23 20:55:00) Creatinine: 0.9 mg/dL (11/12/23 20:55:00) A1c: Hgb A1C %: 5.8 % (10/12/23 07:34:00) TSH: TSH: 1.73 mcIU/mL (10/12/23 07:34:00) Vit D: No qualifying data available. LDL: LDL Direct: 132 mg/dL High (10/12/23 07:34:00) Lipids: Chol: 209 mg/dL High (10/12/23 07:34:00) HDL: 54 mg/dL (10/12/23 07:34:00) LDL Direct: 132 mg/dL High (10/12/23 07:34:00) Tri mg/dL (10/12/23 07:34:00) VLDL: 24 mg/dL (10/12/23 07:34:00) INR: INR: 0.99 (11/12/23 20:55:00) From last note: To go instructions: If you decide you want to start bupropion, let me know and I'll submit 150mg XL Stop pop for a week, if that doesn't help your symptoms, I recommend that you see a ENT to discuss [1] Review of Systems PHQ Score Initial Depression Screen Score: 3 SCORE Physical Exam Vitals & Measurements HR: 69(Peripheral) BP: 112/62 SpO2: 97% HT: 61 in HT: 156 cm WT: 91.8 kg WT: 201.96 lb BMI: 37.72 PHYSICAL EXAM Constitutional: Vital signs reviewed; RASHEEDA HANNA is well nourished, no acute distress Head: Atraumatic, normocephalic Eye: EOMI, normal conjunctiva ENT: Moist oral mucosa, external inspection of ears and nose is unremarkable Neck: Trachea is midline, no tenderness Lungs: Clear to auscultation, non-labored respiration - expansion is symmetric Heart: Normal rate and rhythm, normal peripheral perfusion Lymph: Deferred Abd: Deferred : Deferred MSK: wearing a wal (more content not included)... Normal [facility] Comment on above: Result Comment: Elec tronically Signed By: Amanda Diaz DO\kathia\Date and Time Signed: 04/21/24 13:39 EST Ionized Calciumon 04-21-2024 Calcium.ionized ISE [Mass/Vol] 5.0 mg/dL Invalid Interpretation Code 4.5-5.6 [facility] Comment on above: Result Comment: Perf ormed at: [facility] [address] [id number] PhD Celestina Hein Performed By: #### 2 [id number] #### [facility] [address] [place] [address] PTH [place] 04-19-2024 Parathyrin.intact [Mass/Vol] 19 pg/mL Invalid Interpretation Code 15-65 [facility] Comment on above: Result Comment: Perf ormed at: [facility] [address] [id number] PhD Celestina Hein Performed By: #### 1 [id number] #### [facility] [address] [place] [address] Ambulatory Visit Summaryon 1 06-18-2023 Ambulatory Visit Summary Ambulatory Visit Summary RASHEEDA HANNA Varghese :1970 Visit Date:04/18/2024 Ambulatory Visit Instructions Your Diagnosis Mild recurrent major depression Osteopenia 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 Non-smoker Painful tongue Pelvic floor dysfunction BMI 37.0-37.9, adult History of ankle fusion Delayed union of fracture of ankle Your Care Team Attending Physician - Amanda Diaz DO Primary Care Physician - Amanda Diaz DO This Is Your Medications List buPROPion (buPROPion 150 mg/24 hours XL Tab) Contact prescribing physician if questions or concerns aspirin (aspirin 81 mg Oral EC Tab) calcium-vitamin D (calcium-vitamin D 600 mg-500 intl units oral tablet, extended release) carbonyl iron (Iron Chews) cetirizine (Zyrtec) epinephrine (Epinephrine 0.1 mg/mL Injection) ergocalciferol (Vitamin D) flecainide (flecainide 100 mg Tab) magnesium oxide (magnesium oxide 400 mg Tab) metoprolol (metoprolol 25 mg ER Tab) multivitamin (B Complex 100) multivitamin (Multi Vitamin+) omeprazole (omeprazole 40 mg Cap-DR) sertraline (sertraline 50 mg Tab) solifenacin (solifenacin 10 mg Tab) Procedures Performed Catheterization of left heart (07/14/2022), Ankle fusion, Carpal tunnel, section, Cholecystectomy, Tubal ligation, Hume tooth. 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 [facility] - dr omid sawant ----- To go instructions: I recommend the book: State of Slim to help with supporting your weight loss journey Read Driven to Distraction by Benjamín Adler to learn more about ADHD https://www.Apontador.Satellier /slideshows/myik-ipdbwtkt-a avmj-ntf-ssw-feet/ Begin bupropion 150mg; if you tolerate that but feel there's room for improvement, we should increase to 300mg If tongue continues to be an issue, I would recommend that we go to ENT I recommend labs soon - will call with results ------ *When you see providers outside of [facility], please request that they send office visit [...] months Where: [address] [place] [address] [id number] You Need to Complete the Following Calcium Level Ionized, Blood, Routine collect, 04/18/24, Order for future visit, Lab Collect, Osteopenia, Print Label By Order Location CBC w/ Auto Diff, Blood, Routine collect, 04/18/24, Order for future visit, Lab Collect, Osteopenia, Print Label By Order Location Comprehensive Metabolic Panel, Blood, Routine collect, 04/18/24, Order for future visit, Lab Collect, Osteopenia, Print Label By Order Location Phosphorus Level, Blood, Routine collect, 04/18/24, Order for future visit, Lab Collect, Osteopenia, Print Label By Order Location PTH Intact, Blood, Routine collect, 04/18/24, Order for future visit, Lab Collect, Osteopenia, Print Label By Order Location Vitamin D 25 Hydroxy, Blood, Routine collect, 04/18/24, Order for future visit, Lab Collect, Osteopenia, Print Label By Order Location Medications What How Much When Why Instructions New buPROPion (buPROPion 150 mg/ 24 hours XL Tab) 1 Tablets By Mouth Every 24 hours Mild recurrent major depression Refills: 5 Pickup at [facility]49 Unchanged aspirin (aspirin 81 mg Oral EC Tab) 1 Tablets By Mouth Every day Contact prescribing physician if questions or concerns Unchanged calcium-vitamin D (calcium-vitamin D 600 mg-500 intl units oral tablet, extended release) 2 Tablets By Mouth Once a day (in the morning) Contact prescribing physician if questions or concerns Unchanged carbonyl iron (Iron Chews) 65 Milligram Contact prescribing physician if questions or concerns Unchanged cetirizine (Zyrtec) Contact prescribing physician if questions or concerns Unchanged epinephrine (Epinephrine 0.1 mg/ mL Injection) Contact prescribing physician if questions (more content not included)... Normal [facility] CBC w/ Auto Diffon 4 Basophils/100 WBC (Bld) 0.6 % Normal 0.0-2.0 [facility] Comment on above: Performed By: #### 2 [id number] #### [facility] [address] [place] [address] Basophils/Leukocytes Auto (Bld) [Pure # fraction] 0.1 E9/L Normal 0.0-0.2 [facility] Comment on above: Performed By: #### 2 [id number] #### [facility] [address] [place] [address] Eosinophils (Bld) [#/Vol] 0.2 E9/L Normal 0.0-0.5 [facility] Comment on above: Performed By: #### 2 [id number] #### [facility] [address] [place] [address] Eosinophils/100 WBC (Bld) 2.4 % Normal 0.0-8.0 [facility] Comment on above: Performed By: #### 2 [id number] #### [facility] [address] [place] [address] Erythrocyte distribution width (RBC) [Ratio] 13.6 % Normal 10.9-14.2 [facility] Comment on above: Performed By: #### 2 [id number] #### [facility] [address] [place] [address] Hematocrit (Bld) [Volume fraction] 40.6 % Normal 34.0-46.0 [facility] Comment on above: Performed By: #### 2 [id number] #### [facility] [address] [place] [address] Hemoglobin (Bld) [Mass/Vol] 14.2 g/dL Normal 12.0-16.0 [facility] Comment on above: Performed By: #### 2 [id number] #### [facility] [address] [place] [address] Lymphocytes (Bld) [#/Vol] 1.9 E9/L Normal 1.0-4.0 [facility] Comment on above: Performed By: #### 2 [id number] #### [facility] [address] [place] [address] Lymphocytes/100 WBC (Bld) 20.7 % Normal 14.0-50.0 [facility] Comment on above: Performed By: #### 2 [id number] #### [facility] [address] [place] [address] MCH (RBC) [Entitic mass] 32.8 pg Normal 27.0-34.0 [facility] Comment on above: Performed By: #### 2 [id number] #### [facility] [address] [place] [address] MCHC (RBC) [Mass/Vol] 35.0 g/dL Normal 31.4-36.0 [facility] Comment on above: Performed By: #### 2 [id number] #### [facility] [address] [place] [address] [place] [address] MCV (RBC) [Entitic vol] 93.7 fL Normal 80.0-100.0 [facility] Comment on above: Performed By: #### 2 [id number] #### [facility] [address] [place] [address] Monocytes (Bld) [#/Vol] 0.6 E9/L Normal 0.2-1.0 [facility] Comment on above: Performed By: #### 2 [id number] #### [facility] [address] [place] [address] Neutrophils (Bld) [#/Vol] 6.6 E9/L Normal 2.0-7.5 [facility] Comment on above: Performed By: #### 2 [id number] #### [facility] [address] [place] [address] Neutrophils/100 WBC (Bld) 70.4 % Normal 36.0-75.0 [facility] Comment on above: Performed By: #### 2 [id number] #### [facility] [address] [place] [address] Platelet mean volume (Bld) [Entitic vol] 8.7 fL Normal 6.4-10.8 [facility] Comment on above: Performed By: #### 2 [id number] #### [facility] [address] [place] [address] Platelets (Bld) [#/Vol] 257.0 E9/L Normal 150.0-500.0 [facility] Comment on above: Performed By: #### 2 [id number] #### [facility] [address] [place] [address] RBC (Bld) [#/Vol] 4.3 E12/L Normal 4.3-5.9 [facility] Comment on above: Performed By: #### 2 [id number] #### [facility] [address] [place] [address] WBC corrected for nucl RBC Auto (Bld) [#/Vol] 9.4 E9/L Normal 4.0-11.0 [facility] Comment on above: Performed By: #### 2 [id number] #### [facility] [address] [place] [address] CHEMISTRYOrdered By: SYSTEM SYSTEM on 04-18-2024 25-hydroxyvitamin D3 [Mass/Vol] 54.0 ng/mL Normal 30.0 - 100.0 ng/mL Remisol Chem Albumin [Mass/Vol] 4.1 g/dL Normal 3.3 - 5.0 gm/dL [facility] Chem Albumin/Globulin [Mass ratio] 1.2 {ratio} Normal 1.1 - 2.2 [facility] Chem ALP [Catalytic activity/Vol] 93 [iU]/d Normal 21 - 98 Int._Unit/L [facility] Chem ALT No additional P-5'-P [Catalytic activity/Vol] 28 [iU]/d Normal 6 - 46 Int._Unit/L [facility] Anion gap [Moles/Vol] 9 mmol/L Normal 6 - 16 mEq/L [facility] AST [Catalytic activity/Vol] 21 [iU]/d Normal 5 - 43 Int._Unit/L [facility] Bilirubin [Mass/Vol] 0.4 mg/dL Normal 0.0 - 1 .1 mg/dL [facility] Calcium [Mass/Vol] 9.3 mg/dL Normal 8.9 - 11. 1 mg/dL [facility] Chloride [Moles/Vol] 104 mmol/L Normal 101 - 1 11 mmol/L [facility] CO2 [Moles/Vol] 29 mmol/L Normal 21 - 31 mmol/L [facility] Creatinine [Mass/Vol] 0.9 mg/dL Normal 0.5 - 1.3 mg/dL [facility] Chem eGFR 75 mL/min/1.73 m2 Normal >=59mL/min / 1.73 m2 [facility] Globulin (S) [Mass/Vol] 3.4 g/dL Normal 1.4 - 4.0 gm/dL [facility] Glucose [Mass/Vol] 86 mg/dL Normal 55 - 199 mg/dL [facility] Potassium [Moles/Vol] 4.1 mmol/L Normal 3.5 - 5.3 mmol/L [facility] Chem Protein [Mass/Vol] 7.5 g/dL Normal 6.0 - 7.8 gm/dL [facility] Sodium [Moles/Vol] 138 mmol/L Normal 135 - 145 mmol/L [facility] Urea nitrogen [Mass/Vol] 20 mg/dL Normal 5 - 21 mg/dL [facility] Urea nitrogen/Creatinine [Mass ratio] 22 mg/mg High 10 - 20 [facility] CHEMISTRYOrdered By: Juanjo Guo on 04-18-2024 Phosphate [Mass/Vol] 3.5 mg/dL Normal 1.9 - 4 .6 mg/dL Remisol Chem CMPon 04-18-2024 Albumin [Mass/Vol] 4.1 g/dL Normal 3.3-5.0 [facility] Comment on above: Performed By: #### 2 [id number] #### [facility] [address] [place] [address] Albumin/Globulin (S) [Mass conc ratio] 1.2 Normal 1.1-2.2 [facility] Comment on above: Performed By: #### 2 [id number] #### [facility] [address] [place] [address] ALP [Catalytic activity/Vol] 93 Int._Unit/L Normal 21-98 [facility] Comment on above: Performed By: #### 2 [id number] #### [facility] [address] [place] [address] ALT No additional P-5'-P [Catalytic activity/Vol] 28 Int._Unit/L Normal 6-46 [facility] Comment on above: Performed By: #### 2 [id number] #### [facility] [address] [place] [address] Anion gap [Moles/Vol] 9 mmol/L Normal 6-16 [facility] Comment on above: Performed By: #### 2 [id number] #### [facility] [address] [place] [address] AST [Catalytic activity/Vol] 21 Int._Unit/L Normal 5-43 [facility] Comment on above: Performed By: #### 2 [id number] #### [facility] [address] [place] [address] Bilirubin [Mass/Vol] 0.4 mg/dL Normal 0.0-1.1 [facility] Comment on above: Performed By: #### 2 [id number] #### [facility] [address] [place] [address] Calcium [Mass/Vol] 9.3 mg/dL Normal 8.9-11.1 [facility] Comment on above: Performed By: #### 2 [id number] #### [facility] [address] [place] [address] Chloride [Moles/Vol] 104 mmol/L Normal 101-111 [facility] Comment on above: Performed By: #### 2 [id number] #### [facility] [address] [place] [address] CO2 [Moles/Vol] 29 mmol/L Normal 21-31 [facility] Comment on above: Performed By: #### 2 [id number] #### [facility] [address] [place] [address] Creatinine [Mass/Vol] 0.9 mg/dL Normal 0.5-1.3 [facility] Comment on above: Performed By: #### 2 488802 #### [facility] [address] [place] [address] Globulin (S) [Mass/Vol] 3.4 g/dL Normal 1.4-4.0 [facility] Comment on above: Performed By: #### 2 544607 #### [facility] [address] [place] [address] Glucose [Mass/Vol] 86 mg/dL Normal 55-199 [facility] Comment on above: Performed By: #### 2 [id number] #### [facility] [address] [place] [address] Potassium [Moles/Vol] 4.1 mmol/L Normal 3.5-5.3 [facility] Comment on above: Performed By: #### 2 026977 #### [facility] [address] [place] [address] Protein [Mass/Vol] 7.5 g/dL Normal 6.0-7.8 [facility] Comment on above: Performed By: #### 2 594100 #### [facility] [address] [place] [address] Sodium [Moles/Vol] 138 mmol/L Normal 135-145 [facility] Comment on above: Performed By: #### 2 [id number] #### [facility] [address] [place] [address] Urea nitrogen [Mass/Vol] 20 mg/dL Normal 5-21 [facility] Comment on above: Performed By: #### 2 630459 #### [facility] [address] [place] [address] Urea nitrogen/Creatinine [Mass ratio] 22 No Units High 10-20 [facility] Comment on above: Performed By: #### 2 [id number] #### [facility] [address] [place] [address] HEMATOLOGYOrdered By: SYSTEM SYSTEM on 04-18-2024 Basophils/100 WBC (Bld) 0.6 % Normal 0.0 - 2.0 % Remisol Heme Basophils/Leukocytes Auto (Bld) [Pure # fraction] 0.1 E9/L Normal 0.0 - 0.2 E9/L [facility] Heme Eosinophils (Bld) [#/Vol] 0.2 E9/L Normal 0.0 - 0.5 E9/L Rem[facility] Heme Eosinophils/100 WBC (Bld) 2.4 % Normal 0.0 - 8.0 % Remisol Heme Erythrocyte distribution width (RBC) [Ratio] 13.6 % Normal 10.9 - 14.2 % [facility] Heme Hematocrit (Bld) [Volume fraction] 40.6 % Normal 34.0 - 46.0 % Remisol Heme Hemoglobin (Bld) [Mass/Vol] 14.2 g/dL Normal 12.0 - 16.0 gm/dL [facility]e Lymphocytes (Bld) [#/Vol] 1.9 E9/L Normal 1.0 - 4.0 E9/L [facility]e Lymphocytes/100 WBC (Bld) 20.7 % Normal 14.0 - 50.0 % Rem[facility] Heme MCH (RBC) [Entitic mass] 32.8 pg Normal 27.0 - 34.0 pg Remisol Heme MCHC (RBC) [Mass/Vol] 35.0 g/dL Normal 31.4 - 36.0 gm/dL [facility]e MCV (RBC) [Entitic vol] 93.7 fL Normal 80.0 - 100.0 fL [facility]e Monocytes (Bld) [#/Vol] 0.6 E9/L Normal 0.2 - 1.0 E9/L [facility] Monocytes/100 WBC (Bld) 5.9 % Normal 4.0 - 14.0 % [facility] Neutrophils (Bld) [#/Vol] 6.6 E9/L Normal 2.0 - 7.5 E9/L [facility]e Neutrophils/100 WBC (Bld) 70.4 % Normal 36.0 - 75.0 % [facility] Platelet mean volume (Bld) [Entitic vol] 8.7 fL Normal 6.4 - 10.8 fL [facility] Platelets (Bld) [#/Vol] 257.0 E9/L Normal 150.0 - 500.0 E9/L [facility]e RBC (Bld) [#/Vol] 4.3 E12/L Normal 4.3 - 5.9 E12/L [facility] WBC corrected for nucl RBC Auto (Bld) [#/Vol] 9.4 E9/L Normal 4.0 - 11.0 E9/L [facility]e Phosphoruson 04-18-2024 Phosphate [Mass/Vol] 3.5 mg/dL Normal 1.9-4.6 [facility] Comment on above: Performed By: #### 2 [id number] #### [facility] [address] [place] [address] Vitamin D 25 Hydroxyon 04-18 25-hydroxyvitamin D3 [Mass/Vol] 54.0 ng/mL Normal 30.0-100.0 [facility] Comment on above: Performed By: #### 5 [id number] #### [facility] [address] [place] [address] eGFRon 04-18-2024 eGFR 75 mL/min/1.73 m2 Normal >=59 [facility] Comment on above: Performed By: #### 1 [id number] #### [facility] [address] [place] [address] ECG 12 lead (Clinic Performe d)on 04-03-2024 EKG performed today shows sinus rhythm rate of 62 bpm QRS duration 94 ms QT corrected 424 ms. Rhythm strip shows the same pattern. [facility] Work Phone: [facility] Work Phone: DEXA BONE DENSITY AXIAL SKEL ETONon 03-14-2024 DEXA BONE DENSITY AXIAL SKELETON EXAMINATION: BONE DENSITOMETRY 03/14/2024 8:08 am TECHNIQUE: A bone density dual x-ray absorptiometry (DXA) scan was performed of the lumbar spine and bilateral hips on a [employer] DEXA system. COMPARISON: None. HISTORY: ORDERING SYSTEM PROVIDED HISTORY: Other instability, right ankle, Post-traumatic osteoarthritis, right ankle and foot Gender: F Age: 53 y/o FINDINGS: LUMBAR SPINE: L1-L4 BMD: 1.149 g/cm2 T-score: -0.3 Z-score: 0.6 LEFT TOTAL HIP: BMD: 0.961 g/cm2 T-score: -0.4 Z-score: 0.3 LEFT FEMORAL NECK: BMD: 0.842 g/cm2 T-score: -1.4 Z-score: -0.4 FRAX 10-YEAR PROBABILITY OF FRACTURE: Major osteoporotic fracture: 10.6% Hip fracture: 0.8% IMPRESSION: Osteopenia by WHO criteria. RECOMMENDATIONS: 1. All patients should optimize their calcium and vitamin D intake. 2. Consider FDA-approved medical therapies in postmenopausal women and men aged 50 years and older, based on the following: - A hip or vertebral (clinical or morphometric) fracture - T-score less than or equal to -2.5 at the femoral neck or spine after appropriate evaluation to exclude secondary causes - Low bone density (T-score between -1.0 and -2.5 at the femoral neck or spine) and a 10-year probability of a hip fracture greater than or equal to 3% or a 10-year probability of a major osteoporosis-related fracture greater than or equal to 20% based on FRAX calculation. - Clinician judgment and/or patient preferences may indicate treatment for people with 10-year fracture probabilities above or below these levels - Further guidance on treatment can be found at the National Osteoporosis Foundation's website bonesource.org. 3. Patients with diagnosis of osteoporosis or at high risk for fracture should have regular bone mineral density tests. For patients eligible for Medicare, routine testing is allowed once every 2 years. The testing frequency can be increased to one year for patients who have rapidly progressing disease, those who are receiving or discontinuing medical therapy to restore bone mass or have additional risk factors. Template code: [id number] Interpreted by: Ronald Espinoza DO Signed by: Ronald Espinoza DO 03/14/24 Final result Normal [facility] CT FOOT RIGHT WO CONTRASTon 02-15-2024 CT [...] Rene Stearns MD 02/19/24 Final result Normal [facility] [place] Mamm Screen w/CAD if perf and [...] VERY IMPORTANT TO YOUR HEALTH. THE CURRENT [employer] GUIDELINES RECOMMENDS ANNUAL MAMMOGRAPHY BEGINNING AT AGE 40. THIS FACILITY UTILIZES A REMINDER SYSTEM TO ENSURE ALL PATIENTS RECEIVE REMINDER NOTIFICATIONS AT THE APPROPRIATE TIME BASED ON THE RECOMMENDATIONS OF THIS EXAM. Report Ordering Provider: Amanda Diaz FINAL REPORT Dictated: 02/09/2024 10:10 am Abraham Murray MD Signed (Electronic Signature): 02/09/2024 10:10 am Signed by: Abraham Murray MD Transcribed by: BENITA Technologist: [facility] Assessment: BI-RADS Category 1-Negative Recommendation: Normal interval follow-up Normal [facility] Ambulatory Visit Summaryon 0 01-18-2024 Ambulatory Visit Summary Ambulatory Visit Summary RASHEEDA HANNA :1970 Visit Date:01/18/2024 Ambulatory Visit Instructions Your Diagnosis BMI 36.0-36.9,adult Non-smoker Mild recurrent major depression Painful tongue Pelvic floor dysfunction Your Care Team Attending Physician - Amanda Diaz DO Primary Care Physician - Amanda Diaz DO This Is Your Medications List [...] fusion, Carpal tunnel, section, Cholecystectomy, Tubal ligation, Hume tooth. Discharge Vitals Heart Rate (Peripheral) 61 Blood Pressure 118/66 Height 156 cm Height 61 in Weight 90 kg Weight 198 lb BMI 36.98 What to do next Scheduled Follow-Up Appointments Sunday 9:20 AM EDT With: Amanda Diaz DO Where: [facility] Medicine [address] [place] [address]- You Need to Schedule the Following Appointments Follow Up with Amanda Diaz DO, [facility], PED When: Within 3 months Comments: 20 min slot To go instructions: If you decide you want to start bupropion, let me know and I'll submit 150mg XL Stop pop for a week, if that doesn't help your symptoms, I recommend that you see a ENT to discuss -------- *When you see providers outside of [facility], please request that they send office visit [...] months Where: [address] [place] [phone] Medications What How Much When Instructions Unchanged [...] for choosing us for your care. Normal [facility] Family Medicine Office/Clini c Noteon 01-18-2024 [...] in April. - Patient was seen at [facility] 11/12/23 since last visit for chest pain radiating to neck/jaw/shoulder. Cardiac work up completed, which was negative. Advised to f/u with Cardiology. Labs: completed 10/12/23 [place]: Cologuard ordered today - Faxed to [employer] [facility]: ordered at last visit - Patient will call and schedule Pap: per pt about 3 years ago, WNL History of Present Illness 53 Years old Female here for 3 mo f/u cardiac review HPI staff / Chief Complaint confirmed with the patient Social: The patient is ; [place] since November 05, 2021 The patient is currently working; [employer] for 1 years The patient has 3 [...] - Dr. 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 Normal [facility] Comment on above: Result Comment: Elec tronically Signed By: Amanda Diaz DO\.br\Date and Time Signed: 01/18/24 19:59 [...] Beltran FINAL REPORT Dictated: 11/13/2023 9:55 am Amanda Frazier DO Signed (Electronic Signature): 11/13/2023 9:55 am Signed by: Amanda Frazier DO Transcribed by: BENITA Technologist: DONALD Technical Comments Radiation Dose: Ka,r in mGy = na DAP = na Normal [facility] BMPon 11-12-2023 Anion gap [Moles/Vol] 12 mmol/L Normal 6-16 [facility] Comment on above: Performed By: #### 2 [id number] #### [facility] [address] [place] [address] Calcium [Mass/Vol] 9.0 mg/dL Normal 8.9-11.1 [facility] Comment on above: Performed By: #### 2 507453 #### [facility] [address] [place] [address] Chloride [Moles/Vol] 104 mmol/L Normal 101-111 [facility] Comment on above: Performed By: #### 2 897057 #### [facility] [address] [place] [address] CO2 [Moles/Vol] 27 mmol/L Normal 21-31 [facility] Comment on above: Performed By: #### 2 826020 #### [facility] [address] [place] [address] Creatinine [Mass/Vol] 0.9 mg/dL Normal 0.5-1.3 [facility] Comment on above: Performed By: #### 2 344231 #### [facility] [address] [place] [address] Glucose [Mass/Vol] 100 mg/dL Normal 55-199 [facility] Comment on above: Performed By: #### 2 847052 #### [facility] [address] [place] [address] Potassium [Moles/Vol] 4.0 mmol/L Normal 3.5-5.3 [facility] Comment on above: Performed By: #### 2 176367 #### [facility] [address] [place] [address] Sodium [Moles/Vol] 139 mmol/L Normal 135-145 [facility] Comment on above: Performed By: #### 2 445190 #### [facility] [address] [place] [address] Urea nitrogen [Mass/Vol] 21 mg/dL Normal 5-21 [facility] Comment on above: Performed By: #### 2 214516 #### [facility] [address] [place] [address] Urea nitrogen/Creatinine [Mass ratio] 23 No Units High 10-20 [facility] Comment on above: Performed By: #### 2 609420 #### [facility] [address] [place] [address] CBC w/ Auto Diffon 4 Basophils/100 WBC (Bld) 0.5 % Normal 0.0-2.0 [facility] Comment on above: Performed By: #### 2 798048 #### [facility] [address] [place] [address] Basophils/Leukocytes Auto (Bld) [Pure # fraction] 0.1 E9/L Normal 0.0-0.2 [facility] Comment on above: Performed By: #### 2 301101 #### [facility] [address] [place] [address] Eosinophils (Bld) [#/Vol] 0.2 E9/L Normal 0.0-0.5 [facility] Comment on above: Performed By: #### 2 331183 #### [facility] [address] [place] [address] Eosinophils/100 WBC (Bld) 2.4 % Normal 0.0-8.0 [facility] Comment on above: Performed By: #### 2 664632 #### [facility] [address] [place] [address] Erythrocyte distribution width (RBC) [Ratio] 13.5 % Normal 10.9-14.2 [facility] Comment on above: Performed By: #### 2 661324 #### [facility] [address] [place] [address] Hematocrit (Bld) [Volume fraction] 38.7 % Normal 34.0-46.0 [facility] Comment on above: Performed By: #### 2 182060 #### [facility] [address] [place] [address] Hemoglobin (Bld) [Mass/Vol] 13.3 g/dL Normal 12.0-16.0 [facility] Comment on above: Performed By: #### 2 548284 #### [facility] [address] [place] [address] Lymphocytes (Bld) [#/Vol] 2.8 E9/L Normal 1.0-4.0 [facility] Comment on above: Performed By: #### 2 719912 #### [facility] [address] [place] [address] Lymphocytes/100 WBC (Bld) 28.5 % Normal 14.0-50.0 [facility] Comment on above: Performed By: #### 2 702274 #### [facility] [address] [place] [address] MCH (RBC) [Entitic mass] 31.7 pg Normal 27.0-34.0 [facility] Comment on above: Performed By: #### 2 715216 #### [facility] [address] [place] [address] MCHC (RBC) [Mass/Vol] 34.3 g/dL Normal 31.4-36.0 [facility] Comment on above: Performed By: #### 2 348049 #### [facility] [address] [place] [address] MCV (RBC) [Entitic vol] 92.4 fL Normal 80.0-100.0 [facility] Comment on above: Performed By: #### 2 505649 #### [facility] [address] [place] [address] Monocytes (Bld) [#/Vol] 0.8 E9/L Normal 0.2-1.0 [facility] Comment on above: Performed By: #### 2 267529 #### [facility] [address] [place] [address] Neutrophils (Bld) [#/Vol] 5.9 E9/L Normal 2.0-7.5 [facility] Comment on above: Performed By: #### 2 781079 #### [facility] [address] [place] [address] Neutrophils/100 WBC (Bld) 60.4 % Normal 36.0-75.0 [facility] Comment on above: Performed By: #### 2 800105 #### [facility] [address] [place] [address] Platelet mean volume (Bld) [Entitic vol] 8.8 fL Normal 6.4-10.8 [facility] Comment on above: Performed By: #### 2 331476 #### [facility] [address] [place] [address] Platelets (Bld) [#/Vol] 237.0 E9/L Normal 150.0-500.0 [facility] Comment on above: Performed By: #### 2 440289 #### [facility] [address] [place] [address] RBC (Bld) [#/Vol] 4.2 E12/L Low 4.3-5.9 [facility] Comment on above: Performed By: #### 2 818559 #### [facility] [address] [place] [address] WBC corrected for nucl RBC Auto (Bld) [#/Vol] 9.7 E9/L Normal 4.0-11.0 [facility] Comment on above: Performed By: #### 2 235622 #### [facility] [address] [place] [address] CHEMISTRYOrdered By: SYSTEM SYSTEM on 11-12-2023 Troponin [...] Instructions For Use, Lorenzo Boo, January 2018) Albumin [Mass/Vol] 4.2 g/dL Normal [...] Sensitivity Troponin I Instructions For Use, Lorenzo [place], January 2018) Urea nitrogen [Mass/Vol] 21 mg/dL Normal 5 - 21 mg/dL Rem[facility] Chem Urea nitrogen/Creatinine [Mass ratio] 23 mg/mg High 10 - 20 [facility] COAGULATIONOrdered By: Kiana jorje Bruno on 11-12-2023 aPTT Coag (PPP) [Time] 37.2 s High 25.1 - 36.5 second(s) [facility] Auto Coag Comment on above: Interpretive Data: Mary kumari 15 days - 4 weeks 1 - [...] the same coagulation reagent and instrumentation as [facility]. Currently there are no coagulation studies available worldwide for children to 14 days, and no normal ranges. Heparin therapeutic range (represented by Anti-Factor Xa activity of 0.2 - 0.4 U/mL) corresponds to PTT of 56.6 - 109.0 sec. INR Coag (PPP) [Relative time] 0.99 {INR} Invalid Interpretation Code [facility] Comment on above: Interpretive Data: I NR results are specifically intended to assess patients stabilized on long-term Anticoagulation therapy suggested INR s Less Intensive Anticoagulation 2.0 3.0 Conventional Range 3.0 4.5 PT Coag (PPP) [Time] 11.1 s Normal 9.4 - 1 2.5 second(s) [facility] Comment on above: Interpretive Data: [...] the same coagulation reagent and instrumentation as [facility]. Currently there are no coagulation studies available worldwide for children to 14 days, and no normal ranges. Consent for Treatmenton 10-17 Consent for Treatment [id number]#1.00TIFF Normal [facility] Discharge Instructionson Discharge Instructions [id number]#[id number] Normal [facility] ED Clinical Summaryon 2023 ED Clinical Summary (Inserted Image. Sarah ble to display) [place] [id number] ED Clinical Summary Person Information Name: CYNDI RASHEEDA J [facility] Age: 53 Years : 1970 Sex: Female Language: Kittitian PCP: Amanda Diaz DO Marital Status: Visit Id: Visit [...] 11/12/2023 23:47:15 11/12/2023 23:47:15 11/12/2023 23:47:15 ADDRESS: [address] [place] [phone] PHYS DOC NOTES: MEDICAL INFORMATION: Prescriptions Given: [...] In 3 days 11/15/2023 With: Address: When: Amanda Diaz [address] [facility] [place], [place] [phone] In 3 days 11/15/2023 Comments: Call the [...] or worsening symptoms. DIAGNOSIS: Chest pain Normal [facility] ED Note-Physicianon 11-12-19 ED Note-Physician Basic [...] precautions were discussed. She will call her digital marketing apprentice to follow-up. All questions were answered. Patient was discharged home. Assessment/Plan Chest pain (R07.9: Chest pain, unspecified) Orders: acetaminophen, 650 mg = 2 tab(s), Tab, Oral, Once, Stop date (more content not included)... Normal [facility] Comment on above: Result Comment: Elec [...] these instructions at home: Medicines ? Take qtig-mdh-kbhjjwn and prescription medicines only as told by [...] by your (more content not included)... Normal [facility] ED Patient Summaryon 024 ED Patient Summary (Inserted Image. Sarah ble to display) [place] [id number] Patient Discharge Instructions Person Information Name: RASHEEDA HANNA Age: 53 Years Arrival Date: 11/12/2023 20:33:38 Discharge Diagnosis: Chest pain Primary Care Physician: Amanda Diaz DO Provider Information Primary Provider: Atilio Beltran DO Advanced Manager Of Finance:None The exam and treatment you received in the Emergency Department were for an urgent problem and are not intended as complete care. It is important that you follow up with a doctor, nurse practitioner, or physician?s delinquent tax collection assistant for ongoing care. If your symptoms [...] In 3 days 11/15/2023 With: Address: When: Amnada Diaz [address] [facility] [place], [place] [id number] In 3 days 11/15/2023 Comments: Call the [...] opioids can be used to help relieve twdswefe-yu-fnouce pain and are often prescribed following a [...] pain yissel (more content not included)... Normal [facility] HEMATOLOGYOrdered By: SYSTEM SYSTEM on 11-12-2023 [...] 11-12-2023 Albumin [Mass/Vol] 4.2 g/dL Normal 3.3-5.0 [facility] Comment on above: Performed By: #### 2 248894 #### [facility] [address] [place] [address] Albumin/Globulin (S) [Mass conc ratio] 1.3 Normal 1.1-2.2 [facility] Comment on above: Performed By: #### 2 100792 #### [facility] [address] [place] [address] ALP [Catalytic activity/Vol] 81 Int._Unit/L Normal 21-98 [facility] Comment on above: Performed By: #### 2 854668 #### [facility] [address] [place] [address] ALT No additional P-5'-P [Catalytic activity/Vol] 26 Int._Unit/L Normal 6-46 [facility] Comment on above: Performed By: #### 2 492014 #### [facility] [address] [place] [address] AST [Catalytic activity/Vol] 20 Int._Unit/L Normal 5-43 [facility] Comment on above: Performed By: #### 2 361919 #### [facility] [address] [place] [address] Bilirubin [Mass/Vol] 0.3 mg/dL Normal 0.0-1.1 [facility] Comment on above: Performed By: #### 2 449901 #### [facility] [address] [place] [address] Bilirubin.direct [Mass/Vol] 0.1 mg/dL Normal 0.0-0.4 [facility] Comment on above: Performed By: #### 2 073474 #### [facility] [address] [place] [address] Bilirubin.indirect [Mass or moles/Vol] 0.2 mg/dL Normal 0.1-0.9 [facility] Comment on above: Performed By: #### 2 914445 #### [facility] [address] [place] [address] Globulin (S) [Mass/Vol] 3.2 g/dL Normal 1.4-4.0 [facility] Comment on above: Performed By: #### 2 313990 #### [facility] [address] [place] [address] Protein [Mass/Vol] 7.4 g/dL Normal 6.0-7.8 [facility] Comment on above: Performed By: #### 2 714012 #### [facility] [address] [place] [address] Lipase Levelon 11-12-2023 Lipase [Catalytic activity/Vol] 23 U/L Normal 13-58 [facility] Comment on above: Performed By: #### 2 677048 #### [facility] [address] [place] [address] Monitor Recordon 11-12-2023 Monitor Record [id number]#1.00TIFF Normal [facility] Monitor Record [id number]#1.00TIFF Normal [facility] PT & PTTon 11-12-2023 aPTT Coag (PPP) [Time] 37.2 second(s) High 25.1-36.5 [facility] Comment on above: Result Comment: Para [...] the same coagulation reagent and instrumentation as [facility]. Currently there are no coagulation studies available worldwide for children to 14 days, and no normal ranges. Heparin therapeutic range (represented by Anti-Factor Xa activity of 0.2 - 0.4 U/mL) corresponds to PTT of 56.6 - 109.0 sec. Performed By: #### 1 7943542 #### [facility] [address] [place] [address] INR Coag (PPP) [Relative time] 0.99 {INR} Invalid Interpretation Code [facility] Comment on above: Result Comment: INR results are specifically intended to assess patients stabilized on long-term Anticoagulation therapy suggested INR?s ?Less Intensive Anticoagulation? 2.0 ? 3.0 Conventional Range 3.0 ? 4.5 Performed By: #### 1 [id number] #### [facility] [address] [place] [address] PT Coag (PPP) [Time] 11.1 second(s) Normal 9.4-12.5 [facility] Comment on above: Result Comment: 15 [...] the same coagulation reagent and instrumentation as [facility]. Currently there are no coagulation studies available worldwide for children to 14 days, and no normal ranges. Performed By: #### 1 4583347 #### [facility] [address] [place] [address] Troponin 0 Hr.on 11-12-2023 Troponin 2.80 pg/mL Low 10.10-27.10 [facility] Comment on above: Result Comment: The 95% CI (Confidence Interval) PPV (Positive Predictive Value) for myocardial infarction in females is 38 pg/mL, in males 51 pg/mL. The results should be used in conjunction with clinical conditions of myocardial infarction. (Access High Sensitivity Troponin I Instructions For Use, [employer], January 2018) Performed By: #### 1 7062789 #### [facility] [address] [place] [address] Troponin 1 Hr.on 11-12-2023 Troponin 3.50 pg/mL Low 10.10-27.10 [facility] Comment on above: Result Comment: The 95% CI (Confidence Interval) PPV (Positive Predictive Value) for myocardial infarction in females is 38 pg/mL, in males 51 pg/mL. The results should be used in conjunction with clinical conditions of myocardial infarction. (Access High Sensitivity Troponin I Instructions For Use, [employer], January 2018) Performed By: #### 1 2117135 #### [facility] [address] [place] [address] eGFRon 11-12-2023 eGFR 75 mL/min/1.73 m2 Normal >=59 [facility] Comment on above: Order Comment: Order added by Discern Expert. Performed By: #### 1 5529579 #### [facility] [address] [place] [address] CBC w/ Auto Diffon 4 Basophils/100 WBC (Bld) 0.6 % Normal 0.0-2.0 [facility] Comment on above: Performed By: #### 1 6902364, 0838450, 8472592, 0279711, 04720530, 948324861 ####[facility] [address] [place] [address] Basophils/Leukocytes Auto (Bld) [Pure # fraction] 0.0 E9/L Normal 0.0-0.2 [facility] Comment on above: Performed By: #### 1 2847747, 7024402, 1095472, 3578007, 53447141, 998037725 ####[facility] [address] [place] [address] Eosinophils (Bld) [#/Vol] 0.3 E9/L Normal 0.0-0.5 [facility] Comment on above: Performed By: #### 1 1034537, 1100136, 5065918, 1205757, 50041007, 571785992 ####[address] [address] Eosinophils/100 WBC (Bld) 3.3 % Normal 0.0-8.0 [facility] Comment on above: Performed By: #### 1 4487312, 6516115, 4713149, 2690354, 81909085, 634210255 ####[address] [address] Erythrocyte distribution width (RBC) [Ratio] 13.9 % Normal 10.9-14.2 [facility] Comment on above: Performed By: #### 1 1716517, 4635198, 6658399, 6722021, 33133648, 713685374 ####[address] [address] Hematocrit (Bld) [Volume fraction] 40.7 % Normal 34.0-46.0 [facility] Comment on above: Performed By: #### 1 5358657, 6918677, 0525029, 1885496, 06124697, 995932593 ####[address] [address] Hemoglobin (Bld) [Mass/Vol] 13.5 g/dL Normal 12.0-16.0 [facility] Comment on above: Performed By: #### 1 8761214, 7527313, 3722668, 6768864, 98705928, 093926542 ####[address] [address] Lymphocytes (Bld) [#/Vol] 1.9 E9/L Normal 1.0-4.0 [facility] Comment on above: Performed By: #### 1 7882770, 3824761, 4028835, 9234324, 80084641, 334598455 ####[address] [address] Lymphocytes/100 WBC (Bld) 22.6 % Normal 14.0-50.0 [facility] Comment on above: Performed By: #### 1 3797468, 3848292, 7478062, 4097066, 16855271, 421974601 ####[address] [address] MCH (RBC) [Entitic mass] 30.8 pg Normal 27.0-34.0 [facility] Comment on above: Performed By: #### 1 6903445, 5755918, 8138233, 5347298, 74898205, 580408073 ####[address] [address] MCHC (RBC) [Mass/Vol] 33.3 g/dL Normal 31.4-36.0 [facility] Comment on above: Performed By: #### 1 5334311, 7041015, 8333125, 3393244, 20091597, 011536700 ####[address] [address] MCV (RBC) [Entitic vol] 92.7 fL Normal 80.0-100.0 [facility] Comment on above: Performed By: #### 1 8655675, 2824921, 1546000, 5767093, 65435494, 275986109 ####[address] [address] Monocytes (Bld) [#/Vol] 0.7 E9/L Normal 0.2-1.0 [facility] Comment on above: Performed By: #### 1 2127403, 7202191, 0865806, 6469076, 16437534, 162702767 ####[address] [address] Neutrophils (Bld) [#/Vol] 5.6 E9/L Normal 2.0-7.5 [facility] Comment on above: Performed By: #### 1 9268843, 7246090, 6957576, 1023142, 43860699, 393688336 ####[place] [address] [place] [address] Neutrophils/100 WBC (Bld) 65.6 % Normal 36.0-75.0 [facility] Comment on above: Performed By: #### 1 4675663, 5936876, 2629774, 0743963, 94665916, 558502828 ####[address] [address] Platelet 275.0 E9/L Normal 150.0-500.0 [facility] Comment on above: Performed By: #### 1 6111196, 2443659, 4329989, 8988383, 21076349, 705476612 ####[address] [address] Platelet mean volume (Bld) [Entitic vol] 9.0 fL Normal 6.4-10.8 [facility] Comment on above: Performed By: #### 1 0919732, 3721971, 5262611, 0083314, 63422067, 052240251 ####[address] [address] RBC (Bld) [#/Vol] 4.4 E12/L Normal 4.3-5.9 [facility] Comment on above: Performed By: #### 1 3812514, 7836235, 5088195, 7523111, 07957306, 325677595 ####[address] [address] WBC corrected for nucl RBC Auto (Bld) [#/Vol] 8.5 E9/L Normal 4.0-11.0 [facility] Comment on above: Performed By: #### 1 8283963, 6751931, 2175734, 9983592, 18866987, 563365179 ####[address] [address] CHEMISTRYOrdered By: SYSTEM SYSTEM on 10-12-2023 Albumin [...] (Bld) [Mass fraction] 5.8 % Normal <=5.9% [facility] ChemAutoSS CMPon 10-12-2023 Albumin [Mass/Vol] 4.1 g/dL Normal 3.3-5.0 [facility] Comment on above: Performed By: #### 1 4282231, 8913758, 6974333, 3482655, 07236503, 874990188 ####[facility] [address] [place] [address] Albumin/Globulin (S) [Mass conc ratio] 2.0 Normal 1.1-2.2 [facility] Comment on above: Performed By: #### 1 5981668, 3853701, 3546275, 9774856, 15920675, 320647857 ####[facility] [address] [place] [address] ALP [Catalytic activity/Vol] 75 Int._Unit/L Normal 21-98 [facility] Comment on above: Performed By: #### 1 7922549, 9987464, 7770376, 2055204, 76610688, 710556872 ####[facility] [address] [place] [address] ALT No additional P-5'-P [Catalytic activity/Vol] 32 Int._Unit/L Normal 6-46 [facility] Comment on above: Performed By: #### 1 2740331, 4257888, 0273432, 8255611, 87676003, 540390838 ####[facility] [address] [place] [address] Anion gap [Moles/Vol] 10 mmol/L Normal 6-16 [facility] Comment on above: Performed By: #### 1 5183608, 2633608, 3130101, 9482577, 59425407, 165096174 ####[facility] [address] [place] [address] AST [Catalytic activity/Vol] 22 Int._Unit/L Normal 5-43 [facility] Comment on above: Performed By: #### 1 1283561, 2179343, 1627549, 3146146, 20004942, 937327276 ####[address] [address] Bilirubin [Mass/Vol] 0.4 mg/dL Normal 0.0-1.1 [facility] Comment on above: Performed By: #### 1 1634342, 8611393, 6585485, 8749584, 43727165, 032750542 ####[facility] [address] [place] [address] Calcium [Mass/Vol] 9.0 mg/dL Normal 8.9-11.1 [facility] Comment on above: Performed By: #### 1 9081960, 3112689, 7061072, 1942136, 22396529, 575726656 ####[facility] [address] [place] [address] Chloride [Moles/Vol] 104 mmol/L Normal 101-111 [facility] Comment on above: Performed By: #### 1 7738098, 7220073, 7639518, 3276591, 31527583, 225926215 ####[facility] [address] [place] [address] CO2 [Moles/Vol] 29 mmol/L Normal 21-31 [facility] Comment on above: Performed By: #### 1 8532669, 6252680, 9991088, 6969940, 72624762, 438134066 ####[facility] [address] [place] [address] Creatinine [Mass/Vol] 0.8 mg/dL Normal 0.5-1.3 [facility] Comment on above: Performed By: #### 1 2109005, 8291056, 0513305, 5911093, 08771632, 086971751 ####[facility] [address] [place] [address] Globulin (S) [Mass/Vol] 2.0 g/dL Normal 1.4-4.0 [facility] Comment on above: Performed By: #### 1 0830992, 7231121, 3319686, 0797436, 22035016, 225578918 ####[facility] [address] [place] [address] Glucose [Mass/Vol] 125 mg/dL Normal 55-199 [facility] Comment on above: Performed By: #### 1 7270675, 6989390, 4698894, 3830588, 91520944, 927088961 ####[facility] [address] [place] [address] Potassium [Moles/Vol] 4.6 mmol/L Normal 3.5-5.3 [facility] Comment on above: Performed By: #### 1 [id number], 7644015, 7489280, 8164977, 88758580, [id number] ####[facility] [address] [place] [address] Protein [Mass/Vol] 6.1 g/dL Normal 6.0-7.8 [facility] Comment on above: Performed By: #### 1 6350110, 2248906, 6115372, 6242625, 09954043, 551068914 ####[facility] [address] [place] [address] Sodium [Moles/Vol] 138 mmol/L Normal 135-145 [facility] Comment on above: Performed By: #### 1 0678937, 9280125, 4577948, 4113640, 48434644, 621039294 ####[facility] [address] [place] [address] Urea nitrogen [Mass/Vol] 22 mg/dL High 5-21 [facility] Comment on above: Performed By: #### 1 7938761, 5263899, 0651413, 7918568, 27730226, 427329839 ####[facility] [address] [place] [address] Urea nitrogen/Creatinine [Mass ratio] 28 No Units High 10-20 [facility] Comment on above: Performed By: #### 1 2797125, 6326961, 6341657, 3201230, 90748333, 103378963 ####[facility] [address] [place] [address] Consent for Treatmenton 09-17 Consent for Treatment [id number]#1.00TIFF Normal [facility] HEMATOLOGYOrdered By: SYSTEM SYSTEM on 10-12-2023 [...] Normal 4.0 - 11.0 E9/L Remisol Heme RfwQ1abd 10-12-2023 HbA1c (Bld) [Mass fraction] 5.8 % Normal <=5.9 [facility] Comment on above: Performed By: #### 1 7921596, 0217455, 9268481, 2453879, 92763131, [id number] ####[facility] [address] [place] [address] Lipid Panelon 10-12-2023 Cholesterol [Mass/Vol] 209 mg/dL High 120-200 [facility] Comment on above: Performed By: #### 1 3511559, 3080103, 7298801, 4031066, 66162324, [id number] ####[facility] [address] [place] [address] Cholesterol in HDL [Mass/Vol] 54 mg/dL Invalid Interpretation Code [facility] Comment on above: Result Comment: '>= 60 LOW RISK' '<= 40 HIGH RISK' Performed By: #### 1 6968963, 1564195, 8014491, 3046290, 22924404, 985005739 ####[facility] [address] [place] [address] Cholesterol in LDL [Mass/Vol] 132 mg/dL High <=129 [facility] Comment on above: Performed By: #### 1 2826863, 8411446, 6008979, 0546639, 42359945, 421010182 ####[facility] [address] [place] [address] Cholesterol in VLDL [Mass/Vol] 24 mg/dL Normal 7-40 [facility] Comment on above: Performed By: #### 1 7359389, 6099773, 4893118, 3421135, 33970527, 728055221 ####[facility] [address] [place] [address] Triglyceride [Mass/Vol] 118 mg/dL Normal <=149 [facility] Comment on above: Performed By: #### 1 3035445, 1446307, 7161107, 5621460, 76173251, 789646685 ####[facility] [address] [place] [address] TSH With T4fr Reflexon 10-11 TSH Qn 1.73 m[IU]/L Normal 0.34-5.60 [facility] Comment on above: Performed By: #### 1 0529613, 3893865, 2906043, 7682490, 80530789, 896701039 ####[facility] [address] [place] [address] eGFRon 10-12-2023 eGFR 87 mL/min/1.73 m2 Normal >=59 [facility] Comment on above: Order Comment: Order added by Discern Expert. Performed By: #### 1 2930166, 7861933, 0160475, 4561560, 79266808, 532490942 ####[facility] [address] [place] [address] Ambulatory Visit Summaryon 0 10-03-2023 Ambulatory Visit Summary RASHEEDA HANNA :1970 Visit Date:2023 Ambulatory Visit Instructions Your Diagnosis Establishing care with new doctor, encounter for Sick sinus syndrome Overactive bladder GERD (gastroesophageal reflux disease) Mild recurrent major depression Heat intolerance Pelvic floor dysfunction Screening mammogram, encounter for History of ankle surgery Your Care Team Attending Physician - Amanda Diaz DO Primary Care Physician - Kayla [...] fusion, Carpal tunnel, section, Cholecystectomy, Tubal ligation, Hume tooth. Discharge Vitals Heart Rate (Peripheral) 64 Blood Pressure 116/60 Height 156 cm Height 61 in Weight 90.9 kg Weight 199.98 lb BMI 37.35 What to do next You Need to Schedule the Following Appointments Follow Up with Amanda Diaz DO, JAVID, PED When: Within 3 months Comments: 20 min slot To go instructions: Follow up with cardiology as planned Have labs drawn soon - I will call with the results I have placed a referral for pelvic floor therapy - the hospital will call in the next week or two to schedule When you see providers outside of [facility], please request that they send office visit notes every time you're seen there - this helps us take better care of you [place] - for weight loss f/u 3-6 months Where: [address] [place] [address] [phone] You Need to Complete the Following CBC [...] Screening, No, Screening mammogram, encounter for, pp_set_radiology_subspecial ty, [facility] Medications What How Much When Instructions Unchanged [...] a mix (more content not included)... Normal [facility] Family Medicine Office/Clini c Noteon 10-03-2023 Family Medicine Office/Clinic Note Chief Complaint EST CARE HPI Staff Establish Care: History: Last provider:Kayla Dent Any recent labs:NO Health Maintenance UTD: Colonoscopy: Due for cologuard PSA: N/A Mammogram: Due Pelvic/Pap: no Acute: Current issues/complaints: Discuss getting off Zoloft, Would like a Dr who will take care of all her issues. Cardio. Dr Federico Wing in [place] . History of Present Illness 52 Years old Female here for ESTABLISH CARE This patient is NEW TO ME Previous PCP was Kayla Dent DO Last appt with previous PCP was six weeks ago Social: The patient is ; [place] since November 05, 2021 The patient is currently working; [employer] for 1 years The patient has 3 [...] - Dr. 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 Normal [facility] Comment on above: Result Comment: Elec tronically Signed By: Amanda Diaz DO\.alya\Date and Time Signed: 10/03/23 19:51 EDT Patient Educationon 10-02-19 24 [facility] Major Depressive Disorder, Adult Major depressive [...] treated poorly because of race, sex, or cheondoism (discrimination). ? Health and mental problems that [...] Any drug use. General instructions ? Take sqzt-oxr-gsfbtqu and prescription medicines and herbal preparations only as told by your doctor. ? Eat a healthy diet. ? Get a lot of sleep. ? Think about joining a support group. Your doctor may be able to suggest one. ? Keep all follow-up visits as told by your doctor. This is important. Where to find more information: ? National [place]ie on Mental Illness: www.nhan.org ? U.S. National [place]man of Mental Health: www.nimh.nih.gov ? [place] [employer] Association: www.psychiatry.org/patients -families/ Contact a doctor [...] (911 i (more content not included)... Normal [facility] Physician Orderon 06-29-2023 Physician Order [id number]#1.00TIFF [facility] PT - Orderson 04-27-2023 PT - Orders [id number]#1.00TIFF [facility] Consent for Treatmenton Consent for Treatment [id number]#1.00TIFF Normal [facility] PT - Assessmentson PT - Assessments [id number]#1.00TIFF Normal [facility] PT - Consentson 04-26-2023 PT - Consents [id number]#1.00TIFF Normal [facility] PT - [place] 04-26-2023 PT - Orders [id number]#1.00TIFF Normal [facility] Holter monitor studyon 04-18 This is [...] transmissions. Clinical correlation needs to be made [facility] Holter monitor studyOrdered By: Federico Wing on 04-18-2023 [facility] Work Phone: Consent for Treatmenton 03-18 Consent for Treatment [id number]#1.00TIFF Normal [facility] MRI Ankle w/o Contrast Right on [...] BENITA Technologist: JENNI Technical Comments None Normal [facility] RAD - MRI Screening Formon 1 RAD - MRI Screening Form [id number]#1.00TIFF Normal [facility] Physician Orderon 03-21-2023 Physician Order [id number]#1.00CD:127 Normal [facility] MRI Cardiac w/wo contrast fo r Morph/Funct and Valve Dzon 10-10-2022 MRI Cardiac w/wo contrast for Morph/Funct and Valve Dz Normal [facility] [place] Work Phone: TH MRI CARDIAC RESONANCE MENG GING FOR VELOCITY FLOW MAPPINGon 10-10-2022 MRI CARDIAC RESONANCE IMAGING FOR VELOCITY FLOW MAPPING [facility] CMR Report Name: RASHEEDA HANNA : 1970 Scan Date: 2022-10-10 13:15:00 Electronically signed by OMID LEACH 15:48:14 GENERAL INFORMATION HEIGHT: 60.00 in (152.40 cm) WEIGHT: 186.00 lbs (84.37 kgs) BSA: 1.81 m^2 BASELINE HR: 0 BPM SCAN LOCATION: [facility] REFERRING PHYSICIAN: FEDERICO WING ATTENDING PHYSICIAN: FEDERICO WING TECHNOLOGIST: GENARO DELONG ACCESSION NUMBER: [id number] CPT CODES: 28833, [ , ]69427 ICD10 CODES: R00.2, [ , ]I49.3 SUMMARY [...] Normal (more content not included)... Normal [facility] MRI CARDIAC W/WO CONTRAST FOR MORPH/FUNCT AND VALVE [facility] 10-10-2022 MRI CARDIAC W/WO CONTRAST FOR MORPH/FUNCT AND VALVE [facility] CMR Report Name: RASHEEDA HANNA : 1970 Scan Date: 2022-10-10 13:15:00 Electronically signed by OMID LEACH 15:48:14 GENERAL INFORMATION HEIGHT: 60.00 in (152.40 cm) WEIGHT: 186.00 lbs (84.37 kgs) BSA: 1.81 m^2 BASELINE HR: 0 BPM SCAN LOCATION: [facility] REFERRING PHYSICIAN: FEDERICO WING ATTENDING PHYSICIAN: FEDERICO WING TECHNOLOGIST: GENARO DELONG ACCESSION NUMBER: [id number] CPT CODES: 47165, [ , ]53034 ICD10 CODES: R00.2, [ , ]I49.3 SUMMARY [...] . Normal (more content not included)... Normal [facility] CHEMISTRYOrdered By: SYSTEM SYSTEM on 09-23-2022 Albumin [...] mg/dL Normal 0.0 - 1 .1 mg/dL FT Remisol Calcium [Mass/Vol] 8.9 mg/dL Normal 8.9 - 11. 1 mg/dL FT Remisol Chloride [Moles/Vol] 103 mmol/L Normal 101 - 1 11 mmol/L FT Remisol CO2 [Moles/Vol] 26 mmol/L Normal 21 - 31 mmol/L FT Remisol Creatinine [Mass/Vol] 0.8 mg/dL Normal 0.5 - 1.3 mg/dL FT Remisol GFR/1.73 sq M.predicted among blacks MDRD (S/P/Bld) [Vol rate/Area] mL/min/1.73 m2 Normal >=59mL/min/ 1.73 m2 [facility] Chem S GFR/1.73 sq M.predicted among non-blacks MDRD (S/P/Bld) [Vol rate/Area] mL/min/1.73 m2 Normal >=59mL/min/ 1.73 m2 [facility] Chem S Globulin (S) [Mass/Vol] 3.5 g/dL Normal 1.4 - 4.0 gm/dL FT Remisol Glucose [Mass/Vol] 137 mg/dL Normal 55 - 199 mg/dL FT Remisol Potassium [Moles/Vol] 4.0 mmol/L Normal 3.5 - 5.3 mmol/L FT Remisol Protein [Mass/Vol] 7.3 g/dL Normal 6.0 - 7.8 gm/dL FT Remisol Sodium [Moles/Vol] 135 mmol/L Normal 135 [...] Normal 0.0 - 2.0 % FT HemeAutoSS Basophils/Leukocytes Auto (Bld) [Pure # fraction] [...] 291.0 E9/L Normal 150.0 - 500.0 E9/L [facility] HemeAutoSS RBC (Bld) [#/Vol] 4.4 E12/L Normal 4.3 - 5.9 E12/L [facility] HemeAutoSS WBC corrected for nucl RBC Auto (Bld) [#/Vol] 14.4 E9/L High 4.0 - 11.0 E9/L [facility] HemeAutoSS Office Visit (Cardiology)on 09-20-2022 Follow-up visit [...] contain caffeine.; Status:Complete - Retrospective Authorization; Done: [id number] Eat a normal well-balanced diet.; Status:Complete - [...] or Bone Graft Simulator, Implanted Breast Tissue Pawn Broker, Glucose Monitor, or Neulasta Device? : No Is the patient or breast feeding? : No What are the patient's signs and symptoms? : Tachycardia Patient Instructions Patient to follow up in 4-[address] Federico Wing MD Patient will INCREASE Flecainide to 100mg twice daily. Patient will need to complete an EKG on and Sunday of this week in [facility]- office will arrange for you. Patient [...] laboratory tests Chief Complaint Patient here for [facility] discharge follow up. Discharged 08/24. Palpitations, PVCs [...] no marcellus (more content not included)... Normal [place] Tobacco Screening.on 023 Adult depression screening assessment No [facility] [employer] [address] DO Work Phone: Fall risk assessment a) No falls within the last year [facility] [address] DO Work Phone: Tobacco use status CPHS b) No [facility] [address] DO Work Phone: BASIC METABOLIC PANELon 08-16 Anion gap [Moles/Vol] 11 mmol/L Normal 10 - 20 [facility] Comment on above: Performed By: #### T [facility] #### [address] [id number] Calcium [Mass/Vol] 8.9 mg/dL Normal 8.6 - 10.3 [facility] Comment on above: Performed By: #### T RP #### [address] [id number] Chloride [Moles/Vol] 104 mmol/L Normal 98 - 107 [facility] Comment on above: Performed By: #### T RP #### [address] [id number] Creatinine [Mass/Vol] 0.76 mg/dL Normal 0.50 - 1.05 [facility] Comment on above: Performed By: #### T RPH[facility] #### [address] [id number] eGFR FEMALE >90 Normal >90 [facility] Comment on above: Result Comment: CALC ULATIONS OF ESTIMATED GFR ARE PERFORMED USING THE 2020 CKD-EPI STUDY REFIT EQUATION WITHOUT THE RACE VARIABLE FOR THE IDMS-TRACEABLE CREATININE METHODS. https://jasn.asnjournals.org/content/early//ASN.2664020 988 Performed By: #### T [facility] #### [address] [id number] Glucose [Mass/Vol] 99 mg/dL Normal 74 - 99 [facility] Comment on above: Performed By: #### T RPH[facility] #### [address] [id number] HCO3 (Bld) [Moles/Vol] 26 mmol/L Normal 21 - 32 [facility] Comment on above: Performed By: #### T RPHS #### [address] [id number] Potassium [Moles/Vol] 3.8 mmol/L Normal 3.5 - 5.3 [facility] Comment on above: Performed By: #### T RPHS #### [address] [id number] Sodium [Moles/Vol] 137 mmol/L Normal 136 - 145 [facility] Comment on above: Performed By: #### T RPHS #### [address] [id number] Urea nitrogen [Mass/Vol] 16 mg/dL Normal 6 - 23 [facility] Comment on above: Performed By: #### T [facility] #### [address] [id number] CBCon 08-25-2022 Erythrocyte distribution width (RBC) [Ratio] 12.6 % Normal 11.5 - 14.5 [facility] Comment on above: Performed By: #### C BC #### [address] [id number] Hematocrit (Bld) [Volume fraction] 38.4 % Normal 36.0 - 46.0 [facility] Comment on above: Performed By: #### C BC #### [address] [id number] Hemoglobin (Bld) [Mass/Vol] 13.1 g/dL Normal 12.0 - 16.0 [facility] Comment on above: Performed By: #### C BC #### [address] [id number] MCHC (RBC) [Mass/Vol] 34.1 g/dL Normal 32.0 - 36.0 [facility] Comment on above: Performed By: #### C BC #### [address] [id number] MCV (RBC) [Entitic vol] 92 fL Normal 80 - 100 [facility] Comment on above: Performed By: #### C BC #### [address] [id number] Platelets (Bld) [#/Vol] 248 10*3/uL Normal 150 - 450 [facility] Comment on above: Performed By: #### C BC #### [address] [id number] RBC 4.18 x10E12/L Normal 4.00 - 5.20 [facility] Comment on above: Performed By: #### C BC #### [address] [id number] WBC (Bld) [#/Vol] 9.6 10*3/uL Normal 4.4 - 11.3 [facility] Comment on above: Performed By: #### C BC #### [address] [id number] Daily Progress Note-Electrop hysiologyon 08-25-2022 Daily Progress Note-Electrophysiolo gy Consult Type: subsequent visit/care Service: Electrophysiology Subjective Data: RASHEEDA HANNA is a 51 year old Female who is Hospital Day # 4. Additional Information: still with c/o palpitations/ chest pain approximately 1 hour prior to receiving dose of flecainide Up out of bed ambulating in room and bianchi Objective Data: Objective Information: T PRBPMAPSpO2 Value36.67019911/196328% Date/Time08/25 12: 12: 12: 12: 12: 12:17 [...] to better control of PVCs. EKG in [place] office on Monday 08/28 and Tuesday 08/29 [...] day Patien (more content not included)... Normal [facility] Electrocardiogram 12 Leadon 08-25-2022 Electrocardiogram 12 Lead Ventricular Rate 71 Atrial Rate 71 P-R Interval 166 QRS Duration 88 Q-T Interval 380 QTC Calculation(Bazett) 412 P Molino 59 R Molino 61 T Molino 56 QRS Count 12 Q Onset 219 P Onset 136 P Offset 195 T Offset 409 QTC Fredericia 402 Diagnosis Class Borderline Abnormal Diagnosis Normal sinus rhythm Normal ECG When compared with ECG of 24-AUG-2022 20:23, premature ventricular complexes is no longer present Confirmed by Omid Leach ([id number]) on 08/26/2022 1:34:29 PM Normal [facility] Laboratory - Chemistry and C hemistry - challengeon 08-25-2022 Anion gap [Moles/Vol] 11 mmol/L 10 - 20 -[facility] [place] Work Phone: Calcium [Mass/Vol] 8.9 mg/dL 8.6 - 10.3 [facility] [place] Work Phone: Chloride [Moles/Vol] 104 mmol/L 98 - 107 -[facility] [facility] [place] Work Phone: CO2 [Moles/Vol] 26 mmol/L 21 - 32 [facility] [place] Work Phone: Creatinine [Mass/Vol] 0.76 mg/dL See Below [facility] [place] Work Phone: Comment on above: Reference Range: 0.5 0 - 1.05 Glucose [Mass/Vol] 99 mg/dL 74 - 99 [facility] [place] Work Phone: Potassium [Moles/Vol] 3.8 mmol/L 3.5 - 5.3 [facility] [place] Work Phone: Sodium [Moles/Vol] 137 mmol/L 136 - 145 [facility] [place] Work Phone: Urea nitrogen [Mass/Vol] 16 mg/dL 6 - 23 [facility] [place] Work Phone: Laboratory - Hematology and Cell countson 08-25-2022 Erythrocyte distribution width (RBC) [Ratio] 12.6 % See Below [facility] [place] [place] Work Phone: Comment on above: Reference Range: 11. 5 - 14.5 Hematocrit (Bld) [Volume fraction] 38.4 % See Below [facility] [place] Work Phone: Comment on above: Reference Range: 36. 0 - 46.0 Hemoglobin (Bld) [Mass/Vol] 13.1 g/dL See Below [facility] [place] [place] Work Phone: Comment on above: Reference Range: 12. 0 - 16.0 MCHC (RBC) [Mass/Vol] 34.1 g/dL See Below [facility] [place] [place] Work Phone: Comment on above: Reference Range: 32. 0 - 36.0 MCV (RBC) [Entitic vol] 92 fL 80 - 100 [facility] [place] [place] Work Phone: Platelets (Bld) [#/Vol] 248 10*3/uL 150 - 450 [facility] [place] Work Phone: RBC (Bld) [#/Vol] 4.18 {x10E12/L} See Below [facility] [place] Work Phone: Comment on above: Reference Range: 4.0 0 - 5.20 WBC (Bld) [#/Vol] 9.6 10*3/uL 4.4 - 11.3 -[facility] [facility] [place] Work Phone: MAGNESIUMon 08-25-2022 Magnesium [Mass/Vol] 1.91 mg/dL Normal 1.60 - 2.40 [facility] Comment on above: Performed By: #### M G #### [address] [id number] Magnesium, Serumon Magnesium [Mass/Vol] 1.91 mg/dL See Below [facility] [place] Work Phone: Comment on above: Reference Range: 1.6 0 - 2.40 No Panel Informationon 08-25 [email or web address]?R etrieveTestByDateTime?Patie awUC=[id number]&Date= 023&Time=06%3a43%3a42%3a00& TestType=ECG&Site=11&Output Type=PDF&Ext=PDF [facility] [address] DO Work Phone: Normal sinus rhythm -[facility] DO Work Phone: [phone] Borderline Abnormal -No [facility] DO Work Phone: [phone] [facility] [address] DO Work Phone: [phone] [facility] [address] DO Work Phone: [phone] [facility] [address] DO Work Phone: [phone] [facility] DO Work Phone: [phone] 1 [facility] [address] DO Work Phone: [phone] [facility] [address] DO Work Phone: [phone] 1 -[facility] DO Work Phone: [phone] [facility] [address] DO Work Phone: [phone] [facility] [address] DO Work Phone: [phone] [facility] DO Work Phone: [phone] 1 -[facility] DO Work Phone: [phone] [facility] DO Work Phone: [phone] 1 [facility] DO Work Phone: [phone] [facility] DO Work Phone: [phone] >90 >90 [facility] [place] Work Phone: Comment on above: CALCULATIONS OF LINDSEY MATED GFR ARE PERFORMED USING THE 2020 CKD-EPI STUDY REFIT EQUATION WITHOUT THE RACE VARIABLE FOR THE IDMS-TRACEABLE CREATININE METHODS.https://jasn.asnjournals.org/content//ASN .7089802624 BASIC METABOLIC PANELon 03-0 GFR/1.73 sq M.predicted among non-blacks MDRD (S/P/Bld) [Vol rate/Area] 90 mL/min/{1.73_m2} Normal >90 [facility] Comment on above: Result Comment: CALC ULATIONS OF ESTIMATED GFR ARE PERFORMED USING THE 2020 CKD-EPI STUDY REFIT EQUATION WITHOUT THE RACE VARIABLE FOR THE IDMS-TRACEABLE CREATININE METHODS. https://jasn.asnjournals.org/content//ASN.7553436 988 Performed By: #### T [facility] #### [address] [id number] HCO3 (Bld) [Moles/Vol] 25 mmol/L Normal 21 - 32 [facility] Comment on above: Performed By: #### T RPHS #### [address] [id number] Anion gap [Moles/Vol] 12 mmol/L Normal 10 - 20 [facility] [place] Work Phone: Comment on above: Performed By: #### T RPH[facility] #### [address] [id number] Calcium [Mass/Vol] 8.9 mg/dL Normal 8.6 - 10.3 [facility] [place] Work Phone: Comment on above: Performed By: #### T RPHS #### [address] [id number] Chloride [Moles/Vol] 104 mmol/L Normal 98 - 107 [facility] [place] Work Phone: Comment on above: Performed By: #### T RPHS #### [address] [id number] Creatinine [Mass/Vol] 0.78 mg/dL Normal 0.50 - 1.05 [facility] [place] Work Phone: Comment on above: Reference Range: 0.5 0 - 1.05 Performed By: #### T RPHS #### [address] [id number] Glucose [Mass/Vol] 109 mg/dL High 74 - 99 [facility] [place] Work Phone: Comment on above: Performed By: #### T RPHS #### [address] [id number] Potassium [Moles/Vol] 4.0 mmol/L Normal 3.5 - 5.3 [facility] [place] Work Phone: Comment on above: Performed By: #### T RP #### [address] [id number] Sodium [Moles/Vol] 137 mmol/L Normal 136 - 145 [facility] [place] Work Phone: Comment on above: Performed By: #### T RP #### [address] [id number] Urea nitrogen [Mass/Vol] 17 mg/dL Normal 6 - 23 [facility] [place] Work Phone: Comment on above: Performed By: #### T TRINO #### [address] [id number] CBCon 08-24-2022 Erythrocyte distribution width (RBC) [Ratio] 12.6 % Normal 11.5 - 14.5 [facility] Comment on above: Performed By: #### C BC #### [address] [id number] Hematocrit (Bld) [Volume fraction] 39.8 % Normal 36.0 - 46.0 [facility] Comment on above: Performed By: #### C BC #### [address] [id number] Hemoglobin (Bld) [Mass/Vol] 13.5 g/dL Normal 12.0 - 16.0 [facility] Comment on above: Performed By: #### C BC #### [address] [id number] MCHC (RBC) [Mass/Vol] 33.9 g/dL Normal 32.0 - 36.0 [facility] Comment on above: Performed By: #### C BC #### [address] [id number] MCV (RBC) [Entitic vol] 92 fL Normal 80 - 100 [facility] Comment on above: Performed By: #### C BC #### [address] [id number] Platelets (Bld) [#/Vol] 264 10*3/uL Normal 150 - 450 [facility] Comment on above: Performed By: #### C BC #### [address] [id number] RBC 4.32 x10E12/L Normal 4.00 - 5.20 [facility] Comment on above: Performed By: #### C BC #### [address] [id number] WBC (Bld) [#/Vol] 9.3 10*3/uL Normal 4.4 - 11.3 [facility] Comment on above: Performed By: #### C BC #### [address] [id number] Daily Progress Note-Electrop hysiologyon 08-24-2022 Daily Progress [...] day Objective Data: Objective Information: T PRBPMAPSpO2 Value36.163447/213531% Date/Time08/24: 7: 7: 7: 7:20 Range(36.1C - 37C [...] Last Updated: 24-Aug-2022 13:51 by Federico Wing) [facility] Daily Progress Note-Medicine on 08-24-2022 Daily [...] resolved. Objective Data: Objective Information: T PRBPMAPSpO2 Value36.597501/842855% Date/Time08/24 15: 15: 15: 15: 15:18 Range(36.1C [...] Last Updated: 24-Aug-2022 16:43 by Skip Kelly) [facility] Discharge [id number] Discharge Profile2 Discharge Orders: Anticipated Discharge Date: Anticipated Discharge [id number] Hospital Providers: Provider RoleProvider Name AttendingSkip Kelly Alberto DNAR: Code Status at Discharge: Full Code Activity: activity as tolerated. Provider FINAL REVIEW of Orders: Final Review: Final Review of Medication Reconciliation and Orders Completedby Physician Reviewing Viki Kelly MD at 25-Aug-2022 13:14:58 Appointments: Follow-Up Appointment 01: Physician/Dept/ServiceDr. Wing Reason for ReferralElectrophysiology follow-up Scheduled Date/[id number] 11:45 [facility] office in [address] [address] Phone [phone] Other Clinician Instructions: Other Instructions: Other Clinician InstructionsPlease follow up in the [place] office as discussed with EP for repeat EKGs on monday 08/28 and tuesday 08/29. You will be increasing your flecainide to 75mg twice daily on Sunday. Please call the office or return to the hospital if you have worsening chest pain, shortness of breath, if you pass out, or have any other concerning symptoms. Electronic Signatures: Felicita Bhagat (SENIOR FINANCIAL CONSULTANT-PHYSICS AND ASTRONOMY PROFESSOR) (Signed 24-Aug-2022 14:30) Authored: Discharge Orders, Appointments, Gold Form - Group Care Worker Summary Skip Kelly) (Signed 25-Aug-2022 13:14) Authored: Discharge Orders, Provider FINAL REVIEW of Orders, Other Clinician Instructions Last Updated: 25-Aug-2022 13:14 by Skip Kelly) Normal [facility] Electrocardiogram 12 Leadon 08-24-2022 Electrocardiogram 12 Lead Ventricular Rate 69 Atrial Rate 69 P-R Interval 136 QRS Duration 82 Q-T Interval 398 QTC Calculation(Bazett) 426 P Molino 39 R Molino 48 T Molino 45 QRS Count 11 Q Onset 218 P Onset 150 P Offset 193 T Offset 417 QTC Fredericia 417 Diagnosis Class Borderline Abnormal Diagnosis Sinus rhythm with frequent premature ventricular complexes in a pattern of bigeminy Otherwise normal ECG When compared with ECG of 24-AUG-2022 06:30, No significant change was found Confirmed by Omid Leach ([id number]) on 08/26/2022 1:28:10 PM Normal [facility] Electrocardiogram 12 Lead Ventricular Rate 62 Atrial Rate 62 P-R Interval 162 QRS Duration 86 Q-T Interval 392 QTC Calculation(Bazett) 397 P Molino 28 R Molino 46 T Molino 42 QRS Count 10 Q Onset 219 [...] Wing ([id number]) on 08/24/2022 8:32:51 AM Normal [facility] Laboratory - Chemistry and C hemistry - challengeon 08-24-2022 CO2 [Moles/Vol] 25 mmol/L 21 - 32 [facility] [place] Work Phone: Laboratory - Hematology and Cell countson 08-24-2022 Erythrocyte distribution width (RBC) [Ratio] 12.6 % [facility] Below [facility] [place] Work Phone: Comment on above: Reference Range: 11. 5 - 14.5 Hematocrit (Bld) [Volume fraction] 39.8 % See Below [facility] Work Phone: Comment on above: Reference Range: 36. 0 - 46.0 Hemoglobin (Bld) [Mass/Vol] 13.5 g/dL See Below [facility] Work Phone: Comment on above: Reference Range: 12. 0 - 16.0 MCHC (RBC) [Mass/Vol] 33.9 g/dL See Below [facility] Work Phone: Comment on above: Reference Range: 32. 0 - 36.0 MCV (RBC) [Entitic vol] 92 fL 80 - 100 [facility] Work Phone: Platelets (Bld) [#/Vol] 264 10*3/uL 150 - 450 [facility] Work Phone: RBC (Bld) [#/Vol] 4.32 {x10E12/L} See Below [facility] Work Phone: Comment on above: Reference Range: 4.0 0 - 5.20 WBC (Bld) [#/Vol] 9.3 10*3/uL 4.4 - 11.3 [facility] Work Phone: Magnesium, Serumon 3 Magnesium [Mass/Vol] 2.00 mg/dL Normal 1.60 - 2.40 [facility] Work Phone: Comment on above: Reference Range: 1.6 0 - 2.40 Performed By: #### M G #### [address] [id number] No Panel Informationon 08-24 [email or web address]?R etrieveTestByDateTime?Sherice hbRS=[email or web address]&Date= 023&Time=20%3a23%3a14%3a00& TestType=ECG&Site=11&Output Type=PDF&Ext=PDF [facility] [address] DO Work Phone: [phone] Sinus rhythm with fr equent premature ventricular complexes in a pattern of bigeminy [facility] [address] DO Work Phone: [phone] [facility] [address] [facility] [address] DO Work Phone: [phone] [facility] [address] DO Work Phone: [phone] [facility] [address] DO Work Phone: [phone] [facility] [address] DO Work Phone: [phone] [facility] [address] DO Work Phone: [phone] [facility] [address] DO Work Phone: [phone] [facility] [address] DO Work Phone: [phone] [facility] [address] DO Work Phone: [phone] 1 [facility] [address] DO Work Phone: [phone] 1 [facility] [address] DO Work Phone: [phone] 1 [facility] [address] DO Work Phone: [phone] 1 [facility] [address] DO Work Phone: [phone] 1 [facility] [address] DO Work Phone: [phone] [facility] [address] DO Work Phone: [phone] [email or web address]?R etrieveTestByDateTime?Sherice kxWN=[email or web address]&Date= 023&Time=06%3a30%3a53%3a00& TestType=ECG&Site=11&Output Type=PDF&Ext=PDF [facility] [place] Work Phone: [phone] Sinus rhythm with occasional premature ventricular complexes [facility] [place] Work Phone: Borderline Abnormal [facility] [place] Work Phone: [phone] [facility] [place] Work Phone: [phone] [facility] [place] Work Phone: [phone] [facility] [place] Work Phone: [phone] [facility] [place] Work Phone: [phone] 1 [facility] [place] Work Phone: [phone] [facility] [place] Work Phone: [phone] [facility] [place] Work Phone: [phone] [facility] [place] Work Phone: [phone] [facility] [place] Work Phone: [phone] [facility] [place] Work Phone: [phone] [facility] [place] Work Phone: [phone] [facility] [place] Work Phone: [phone] [facility] [place] Work Phone: [phone] 1 [facility] [place] Work Phone: 90 {mL/min/1.73m2} >90 [facility] [place] Work Phone: Comment on above: CALCULATIONS OF LINDSEY MATED GFR ARE PERFORMED USING THE 2020 CKD-EPI STUDY REFIT EQUATION WITHOUT THE RACE VARIABLE FOR THE IDMS-TRACEABLE CREATININE METHODS.https://jasn.asnjournals.org/content//ASN .2192551484 Order Reconciliationon 08-24 Order Reconciliation Page 1 Discharge Reconciliation Document Reconciliation Type: Discharge requested on behalf of Skip Kelly (Physician) done by Skip Kelly) Discharge - Partial Reconciliation: 24-Aug-2022 09:08 by: Kayla Shaw ([facility]) Discharge - Partial Reconciliation: 25-Aug-2022 09:53 by: Kayla Shaw ([facility]) Discharge - Partial Reconciliation: 25-Aug-2022 12:31 by: Kayla Shaw ([facility]) Discharge - Reconciliation: 25-Aug-2022 13:15 by: [...] [employer] (more content not included)... Normal [facility] Admission Risk Screen - Adul [...] AlertFor Ebola-like Symptoms: Isolate Patient and Notify Provider/Roller Operator For Contact: Notify Provider/Roller Operator Advance Directive: Advance Directive/DNRno Advance Directive [...] Learning Preferencesskill demonstration Cultural Considerationsnone Developmental Considerationsnone Christianity Considerationsnone Learning Assessment (Other Learner): Other learner availableno Depression Screen: During the past month, have you often been bothered by feeling down, depressed or hopelessyes During the past month, have you often had little interest or pleasure in doing thingsno Have you had any thoughts of harming anyone elseno (1) [place] Suicide: Risk Screen Not Applicable/Able to Answerable to be screened In the Past Month: Have you wished you were or could go to sleep and not wake upno(1) In the Past Month: Have you had any actual thoughts of killing yourself no(1) Lifetime: Have you ever done, started to do, or prepared to do anything to end your lifeno [place] Suicide Risknegative Adult Nutrition Screen: Have you [...] Spiritual Screen: Are there any cultural, spiritual, cheondoism practices/values/needs that are important for us to knowno CAGE: Is this an injure (more content not included)... Normal [facility] BASIC METABOLIC PANELon Anion gap [Moles/Vol] 11 mmol/L Normal - 20 [facility] Comment on above: Performed By: #### B #### [address] [id number] Calcium [Mass/Vol] 8.9 mg/dL Normal 8.6 - 10.3 [facility] Comment on above: Performed By: #### B MP #### [address] [id number] Chloride [Moles/Vol] 102 mmol/L Normal 98 - 107 [facility] Comment on above: Performed By: #### B MP #### [address] [id number] Creatinine [Mass/Vol] 0.92 mg/dL Normal 0.50 - 1.05 [facility] Comment on above: Performed By: #### B MP #### [address] [id number] GFR/1.73 sq M.predicted among non-blacks MDRD (S/P/Bld) [Vol rate/Area] 74 mL/min/{1.73_m2} Normal >90 [facility] Comment on above: Result Comment: CALC ULATIONS OF ESTIMATED GFR ARE PERFORMED USING THE 2020 CKD-EPI STUDY REFIT EQUATION WITHOUT THE RACE VARIABLE FOR THE IDMS-TRACEABLE CREATININE METHODS. https://jasn.asnjournals.org/content/early/ASN.0750354 988 Performed By: #### B MP #### [address] [id number] Glucose [Mass/Vol] 103 mg/dL High 74 - 99 [facility] Comment on above: Performed By: #### B MP #### [address] [id number] HCO3 (Bld) [Moles/Vol] 26 mmol/L Normal 21 - 32 [facility] Comment on above: Performed By: #### B MP #### [address] [id number] Potassium [Moles/Vol] 3.8 mmol/L Normal 3.5 - 5.3 [facility] Comment on above: Performed By: #### B MP #### [address] [id number] Sodium [Moles/Vol] 135 mmol/L Low 136 - 145 [facility] Comment on above: Performed By: #### B MP #### [address] [id number] Urea nitrogen [Mass/Vol] 17 mg/dL Normal 6 - 23 [facility] Comment on above: Performed By: #### B MP #### [address] [id number] CBCon 08-23-2022 Erythrocyte distribution width (RBC) [Ratio] 12.5 % Normal 11.5 - 14.5 [facility] Comment on above: Performed By: #### C BC #### [address] [id number] Hematocrit (Bld) [Volume fraction] 39.7 % Normal 36.0 - 46.0 [facility] Comment on above: Performed By: #### C BC #### [address] [id number] Hemoglobin (Bld) [Mass/Vol] 13.6 g/dL Normal 12.0 - 16.0 [facility] Comment on above: Performed By: #### C BC #### [address] [id number] MCHC (RBC) [Mass/Vol] 34.3 g/dL Normal 32.0 - 36.0 [facility] Comment on above: Performed By: #### C BC #### [address] [id number] MCV (RBC) [Entitic vol] 93 fL Normal 80 - 100 [facility] Comment on above: Performed By: #### C BC #### [address] [id number] Platelets (Bld) [#/Vol] 256 10*3/uL Normal 150 - 450 [facility] Comment on above: Performed By: #### C BC #### [address] [id number] RBC 4.25 x10E12/L Normal 4.00 - 5.20 [facility] Comment on above: Performed By: #### C BC #### [address] [id number] WBC (Bld) [#/Vol] 9.2 10*3/uL Normal 4.4 - 11.3 [facility] Comment on above: Performed By: #### C BC #### [address] [id number] Consult-Electrophysiologyon 08-23-2022 Consult-Electrophysi ology Service: Service: Electrophysiology Consult: Consult requested by (Attending Name): Skip Kelly Reason: symptomatic bradycardia, bigeminy History of Present Illness: HPI: RASHEEDA HANNA is a 51 year old Female evaluated in [facility] emergency room on 08/22/2022 secondary to palpitations, [...] Swelling, Hives/Urticaria Objective: Objective Information: T PRBPMAPSpO2 [id number]/[id number]% Date/Time08/23 9: 9: 16:443 9: 0:113 9:05 Range(36.4C - 37C ) [...] 3:25:30 PM (more content not included)... Normal [facility] Daily Progress Note-Medicine on 08-23-2022 Daily Progress Note-Medicine Service: Medicine Subjective Data: RASHEEDA HANNA is a 51 year old Female who is Hospital Day # 2. Some bradycardia overnight. Feeling better today however, less dizziness. Still getting symptoms with positional changes however. No chest pain. No dyspnea. Objective Data: Objective Information: T PRBPMAPSpO2 Value36.90478691/038210% Date/Time08/23 14:0338 14:033 16:443/8 14:0338 0:113/8 14:03 Range(36.4C - 37C ) (38 [...] Updated: 23-Aug-2022 16:31 by Skip Kelly) Normal [facility] Discharge Planning [id number] 0 08-23-2022 Discharge Planning Note2 Discharge Planning: Discharge DestinationHome Anticipated Discharge [id number] Discharge Planning 08/23/2022 1422 Care Transitions Note Rasheeda Hanna is a 51 year old female who was admitted to [facility] 08/22/2022 with dx of chest pain. Chart reviewed, telegraphic typewriter operator chief spoke with patient- introduced self and explained role. Patient sitting up in bed. She is alert and oriented x3. Patient interacted well with telegraphic typewriter operator chief and answered assessment questions appropriately. Demographics confirmed. PCP Dr. Kayla Dent who she saw in June and have follow-up in October. Pharmacy preference is [facility]. Prior to admission, lives with spouse in a 1 story home. Prior level of functioning independent no assistive device. She completed own adls and iadls. She is still working 42-50 hours a week. International Editorial Producer discussed discharge needs/ concerns. She is currently denying any needs/ concerns. Her plan is home. Care Transitions to continue to monitor progression and address needs/ concerns as identified. ASHUTOSH Paulino Assessment: Discharge Planning Assessment [id number] Primary Contact Name and [phone] (spouse) He(1) Lives Withadult child(jose); dependent child(jose); spouse(1) Living Arrangementshouse(1) Stated Reason for AdmissionChest pain dizzy and SOB(1) [place]rived [place] (1) Resource/Environmental Concernsnone(1) Anticipated Transition Tootis(1) Services Anticipated at Transitionnone(1) Electronic Signatures: Lou Ferrer (HARRIET) (Signed 23-Aug-2022 14:34) Authored: Discharge Planning, Assessment Last Updated: 23-Aug-2022 14:34 by Lou Ferrer (HARRIET) References: 1. Data Referenced From Patient Profile - Adult v2 22-Aug-2022 22:19 Normal [facility] Laboratory - Chemistry and C hemistry - challengeon 08-23-2022 Anion gap [Moles/Vol] 11 mmol/L 10 - 20 [facility] [place] Work Phone: Calcium [Mass/Vol] 8.9 mg/dL 8.6 - 10.3 [facility] [place] Work Phone: Chloride [Moles/Vol] 102 mmol/L 98 - 107 [facility] [place] Work Phone: CO2 [Moles/Vol] 26 mmol/L 21 - 32 [facility] Work Phone: Creatinine [Mass/Vol] 0.92 mg/dL See Below [facility] Work Phone: Comment on above: Reference Range: 0.5 0 - 1.05 Glucose [Mass/Vol] 103 mg/dL above high threshold 74 - 99 [facility] [place] Work Phone: Potassium [Moles/Vol] 3.8 mmol/L 3.5 - 5.3 [facility] [place] Work Phone: Sodium [Moles/Vol] 135 mmol/L below low threshold 136 - 145 [facility] Work Phone: Urea nitrogen [Mass/Vol] 17 mg/dL 6 - 23 [facility] Work Phone: Laboratory - Hematology and Cell countson 08-23-2022 Erythrocyte distribution width (RBC) [Ratio] 12.5 % See Below [facility] [place] Work Phone: Comment on above: Reference Range: 11. 5 - 14.5 Hematocrit (Bld) [Volume fraction] 39.7 % See Below [facility] [place] Work Phone: Comment on above: Reference Range: 36. 0 - 46.0 Hemoglobin (Bld) [Mass/Vol] 13.6 g/dL See Below [facility] Work Phone: Comment on above: Reference Range: 12. 0 - 16.0 MCHC (RBC) [Mass/Vol] 34.3 g/dL See Below [facility] [place] Work Phone: Comment on above: Reference Range: 32. 0 - 36.0 MCV (RBC) [Entitic vol] 93 fL 80 - 100 [facility] Work Phone: Platelets (Bld) [#/Vol] 256 10*3/uL 150 - 450 [facility] Work Phone: RBC (Bld) [#/Vol] 4.25 {x10E12/L} See Below [facility] Work Phone: Comment on above: Reference Range: 4.0 0 - 5.20 WBC (Bld) [#/Vol] 9.2 10*3/uL 4.4 - 11.3 [facility] [place] Work Phone: No Panel Informationon 08-23 74 {mL/min/1.73m2} >90 [facility] Work Phone: Comment on above: CALCULATIONS OF LINDSEY MATED GFR ARE PERFORMED USING THE 2020 CKD-EPI STUDY REFIT EQUATION WITHOUT THE RACE VARIABLE FOR THE IDMS-TRACEABLE CREATININE METHODS.https://jasn.asnjournals.org/content/early//ASN .1646693740 Patient Profile - Adult v2on 08-23-2022 Patient Profile - Adult v2 Profile: Initial Info: How to be AddressedPaula(1) Spoken Language PreferredEnglish (1) Stated Reason for AdmissionChest pain dizzy and SOB Primary Contact Name and [phone] (spouse) He Wants Family/Rep Notified of Admissionn/a; family present Notify PCPdeferred, unable to answer Informed of Patient Visiting Rightsyes Arrived [place] Employment Statusemployed Patient Belongingsremains with patient Patient Belongings Remaining with Patientcell phone/electronics; vision aids Medications Brought to Hospitalno General Health: Blood Avoidance/Restrictionsnone( 1) Previous Transfusion Reactionno(1) Weight in kg82.8 kilogram(s) Weight in nle542.5 pound(s) Weight Methodactual (measured) Scale Typestanding Height [...] Arrangementshouse Services Anticipated at Transitionnone Anticipated Transition Tootis Significant IndicatorsComplete Information Review: Allergies, Home Meds [...] From History and Physical 22-Aug-2022 17:58 Normal [facility] BASIC METABOLIC PANELon 030 ANION GAP Canceled Normal [facility] Comment on above: Order Comment: TEST BASIC METABOLIC PANEL WAS CANCELLED, 08/22/2022 20:12 This order is Barbi draw. Retiming 08/22/2022 20:12. Performed By: #### T RPHS #### [address] [id number] BICARBONATE Canceled Normal [facility] Comment on above: Order Comment: TEST BASIC METABOLIC PANEL WAS CANCELLED, 08/22/2022 20:12 This order is Barbi draw. Retiming 08/22/2022 20:12. Performed By: #### T RPHS #### [address], [place] [id number] CALCIUM Canceled Normal [facility] Comment on above: Order Comment: TEST BASIC METABOLIC PANEL WAS CANCELLED, 08/22/2022 20:12 This order is Barbi draw. Retiming 08/22/2022 20:12. Performed By: #### T RPHS #### [address], [place] [id number] CHLORIDE Canceled Normal [facility] Comment on above: Order Comment: TEST BASIC METABOLIC PANEL WAS CANCELLED, 08/22/2022 20:12 This order is Barbi draw. Retiming 08/22/2022 20:12. Performed By: #### T RPHS #### [address] [id number] CREATININE Canceled Normal [facility] Comment on above: Order Comment: TEST BASIC METABOLIC PANEL WAS CANCELLED, 08/22/2022 20:12 This order is Barbi draw. Retiming 08/22/2022 20:12. Performed By: #### T RPHS #### [address], [place] [id number] eGFR FEMALE Canceled Normal [facility] Comment on above: Order Comment: TEST BASIC METABOLIC PANEL WAS CANCELLED, 08/22/2022 20:12 This order is Barbi draw. Retiming 08/22/2022 20:12. Result Comment: CALC ULATIONS OF ESTIMATED GFR ARE PERFORMED USING THE 2020 CKD-EPI STUDY REFIT EQUATION WITHOUT THE RACE VARIABLE FOR THE IDMS-TRACEABLE CREATININE METHODS. https://jasn.asnjournals.org/content/early/ASN.8071428 988 Performed By: #### T RPHS #### [address] [id number] eGFR MALE Canceled Normal [facility] Comment on above: Order Comment: TEST BASIC METABOLIC PANEL WAS CANCELLED, 08/22/2022 20:12 This order is Barbi draw. Retiming 08/22/2022 20:12. Result Comment: CALC ULATIONS OF ESTIMATED GFR ARE PERFORMED USING THE 2020 CKD-EPI STUDY REFIT EQUATION WITHOUT THE RACE VARIABLE FOR THE IDMS-TRACEABLE CREATININE METHODS. https://jasn.asnjournals.org/content/early/ASN.4055041 988 Performed By: #### T RPHS #### [address] [id number] GLUCOSE Canceled Normal [facility] Comment on above: Order Comment: TEST BASIC METABOLIC PANEL WAS CANCELLED, 08/22/2022 20:12 This order is Barbi draw. Retiming 08/22/2022 20:12. Performed By: #### T RPHS #### [address] [id number] POTASSIUM Canceled Normal [facility] Comment on above: Order Comment: TEST BASIC METABOLIC PANEL WAS CANCELLED, 08/22/2022 20:12 This order is Barbi draw. Retiming 08/22/2022 20:12. Performed By: #### T RPHS #### [address] [id number] SODIUM Canceled Normal [facility] Comment on above: Order Comment: TEST BASIC METABOLIC PANEL WAS CANCELLED, 08/22/2022 20:12 This order is Barbi draw. Retiming 08/22/2022 20:12. Performed By: #### T RP #### [address] [id number] UREA NITROGEN Canceled Normal [facility] Comment on above: Order Comment: TEST BASIC METABOLIC PANEL WAS CANCELLED, 08/22/2022 20:12 This order is Barbi draw. Retiming 08/22/2022 20:12. Performed By: #### T [facility] #### [address] [id number] CBCon 08-22-2022 HCT Canceled Normal [facility] Comment on above: Order Comment: TEST CBC WAS CANCELLED, 08/22/2022 20:12 This order is for AM draw. Cjaghpfe11/07/2023 20:12. Performed By: #### M G #### [address] [id number] HGB Canceled Normal [facility] Comment on above: Order Comment: TEST CBC WAS CANCELLED, 08/22/2022 20:12 This order is for AM draw. Hefzfjsn21/07/2023 20:12. Performed By: #### M G #### [address] [id number] MCHC Canceled Normal [facility] Comment on above: Order Comment: TEST CBC WAS CANCELLED, 08/22/2022 20:12 This order is for AM draw. Cbmgryuv42/07/2023 20:12. Performed By: #### M G #### [address] [id number] MCV Canceled Normal [facility] Comment on above: Order Comment: TEST CBC WAS CANCELLED, 08/22/2022 20:12 This order is for AM draw. Wrkhuphq38/07/2023 20:12. Performed By: #### M G #### [address] [id number] NUCLEATED RBC Canceled Normal [facility] Comment on above: Order Comment: TEST CBC WAS CANCELLED, 08/22/2022 20:12 This order is for AM draw. Hbkkxihm35/07/2023 20:12. Performed By: #### M G #### [address] [id number] PLT Canceled Normal [facility] Comment on above: Order Comment: TEST CBC WAS CANCELLED, 08/22/2022 20:12 This order is for AM draw. Fbfqrpnt62/07/2023 20:12. Performed By: #### M G #### [address] [id number] RBC Canceled Normal [facility] Comment on above: Order Comment: TEST CBC WAS CANCELLED, 08/22/2022 20:12 This order is for AM draw. Mhtyzasl70/07/2023 20:12. Performed By: #### M G #### [address] [id number] RDW-CV Canceled Normal [facility] Comment on above: Order Comment: TEST CBC WAS CANCELLED, 08/22/2022 20:12 This order is for AM draw. Otropmyl07/07/2023 20:12. Performed By: #### M G #### [address] [id number] WBC Canceled Normal [facility] Comment on above: Order Comment: TEST CBC WAS CANCELLED, 08/22/2022 20:12 This order is for AM draw. Uqqgwxuo89/07/2023 20:12. Performed By: #### M G #### [address] [id number] CBC AND DIFFERENTIALon 08-22 % AUTOMATED IMMATURE GRAN 0.4 % Normal 0.0 - 0.9 [facility] Comment on above: Result Comment: Patricia ture Granulocyte Count (IG) includes promyelocytes, myelocytes and metamyelocytes but does not include bands. Percent differential counts (%) should be interpreted in the context of the absolute cell counts (cells/L). Performed By: #### T RPHS #### [address] [id number] Basophils (Bld) [#/Vol] 0.07 10*3/uL Normal 0.00 - 0.10 [facility] Comment on above: Performed By: #### T RPHS #### [address] [id number] Basophils/100 WBC (Bld) 0.7 % Normal 0.0 - 2.0 [facility] Comment on above: Performed By: #### T RPHS #### [address] [id number] Eosinophils (Bld) [#/Vol] 0.12 10*3/uL Normal 0.00 - 0.70 [facility] Comment on above: Performed By: #### T RPHS #### [address] [id number] Eosinophils/100 WBC (Bld) 1.2 % Normal 0.0 - 6.0 [facility] Comment on above: Performed By: #### T RPHS #### [address] [id number] Erythrocyte distribution width (RBC) [Ratio] 12.4 % Normal 11.5 - 14.5 [facility] Comment on above: Performed By: #### T RPHS #### [address] [id number] Hematocrit (Bld) [Volume fraction] 42.8 % Normal 36.0 - 46.0 [facility] Comment on above: Performed By: #### T RPHS #### [address] [id number] Hemoglobin (Bld) [Mass/Vol] 14.6 g/dL Normal 12.0 - 16.0 [facility] Comment on above: Performed By: #### T RPHS #### [address] [id number] Lymphocytes (Bld) [#/Vol] 2.38 10*3/uL Normal 1.20 - 4.80 [facility] Comment on above: Performed By: #### T RPHS #### [address] [id number] Lymphocytes/100 WBC (Bld) 22.9 % Normal 13.0 - 44.0 [facility] Comment on above: Performed By: #### T RPHS #### [address] [id number] MCHC (RBC) [Mass/Vol] 34.1 g/dL Normal 32.0 - 36.0 [facility] Comment on above: Performed By: #### T RP #### [address] [id number] MCV (RBC) [Entitic vol] 93 fL Normal 80 - 100 [facility] Comment on above: Performed By: #### T RP #### [address] [id number] Monocytes (Bld) [#/Vol] 0.80 10*3/uL Normal 0.10 - 1.00 [facility] Comment on above: Performed By: #### T RP #### [address] [id number] Monocytes/100 WBC (Bld) 7.7 % Normal 2.0 - 10.0 [facility] Comment on above: Performed By: #### T RPHS #### [address] [id number] Neutrophils (Bld) [#/Vol] 7.00 10*3/uL Normal 1.20 - 7.70 [facility] Comment on above: Performed By: #### T RPHS #### [address] [id number] Neutrophils/100 WBC (Bld) 67.1 % Normal 40.0 - 80.0 [facility] Comment on above: Performed By: #### T RPHS #### [address] [id number] Platelets (Bld) [#/Vol] 285 10*3/uL Normal 150 - 450 [facility] Comment on above: Performed By: #### T RPHS #### [address] [id number] RBC 4.58 x10E12/L Normal 4.00 - 5.20 [facility] Comment on above: Performed By: #### T RPHS #### [address] [id number] WBC (Bld) [#/Vol] 10.4 10*3/uL Normal 4.4 - 11.3 [facility] Comment on above: Performed By: #### T RPHS #### [address] [id number] COMPREHENSIVE PANELon 2022 Albumin [Mass/Vol] 4.3 g/dL Normal 3.4 - 5.0 [facility] Comment on above: Performed By: #### T RPHS #### [address] [id number] ALP [Catalytic activity/Vol] 80 U/L Normal 33 - 110 [facility] Comment on above: Performed By: #### T RPHS #### [address] [id number] ALT [Catalytic activity/Vol] 29 U/L Normal 7 - 45 [facility] Comment on above: Result Comment: Selam ents treated with Sulfasalazine may generate falsely decreased results for ALT. Performed By: #### T RPHS #### [address] [id number] Anion gap [Moles/Vol] 13 mmol/L Normal 10 - 20 [facility] Comment on above: Performed By: #### T RPHS #### [address] [id number] AST [Catalytic activity/Vol] 22 U/L Normal 9 - 39 [facility] Comment on above: Performed By: #### T RPHS #### [address] [id number] Bilirubin [Mass/Vol] 0.4 mg/dL Normal 0.0 - 1.2 [facility] Comment on above: Performed By: #### T RPHS #### [address] [id number] Calcium [Mass/Vol] 9.4 mg/dL Normal 8.6 - 10.3 [facility] Comment on above: Performed By: #### T RPHS #### [address] [id number] Chloride [Moles/Vol] 102 mmol/L Normal 98 - 107 [facility] Comment on above: Performed By: #### T RPHS #### [address] [id number] Creatinine [Mass/Vol] 0.93 mg/dL Normal 0.50 - 1.05 [facility] Comment on above: Performed By: #### T RPHS #### [address] [id number] GFR/1.73 sq M.predicted among non-blacks MDRD (S/P/Bld) [Vol rate/Area] 73 mL/min/{1.73_m2} Normal >90 [facility] Comment on above: Result Comment: CALC ULATIONS OF ESTIMATED GFR ARE PERFORMED USING THE 2020 CKD-EPI STUDY REFIT EQUATION WITHOUT THE RACE VARIABLE FOR THE IDMS-TRACEABLE CREATININE METHODS. https://jasn.asnjournals.org/content/early//ASN.5744616 988 Performed By: #### T RPHS #### [address] [id number] Glucose [Mass/Vol] 92 mg/dL Normal 74 - 99 [facility] Comment on above: Performed By: #### T RPHS #### [address] [id number] HCO3 (Bld) [Moles/Vol] 28 mmol/L Normal 21 - 32 [facility] Comment on above: Performed By: #### T RP #### [address] [id number] Potassium [Moles/Vol] 3.8 mmol/L Normal 3.5 - 5.3 [facility] Comment on above: Performed By: #### T RPHS #### [address] [id number] Protein [Mass/Vol] 7.8 g/dL Normal 6.4 - 8.2 [facility] Comment on above: Performed By: #### T RP #### [address] [id number] Sodium [Moles/Vol] 139 mmol/L Normal 136 - 145 [facility] Comment on above: Performed By: #### T RP #### [address] [id number] Urea nitrogen [Mass/Vol] 16 mg/dL Normal 6 - 23 [facility] Comment on above: Performed By: #### T RPHS #### [address] [id number] Complete Blood Count + Diffe elaineon 08-22-2022 Basophils/100 WBC (Bld) 0.7 % 0.0 - 2.0 [facility] Work Phone: Erythrocyte distribution width (RBC) [Ratio] 12.4 % See Below [facility] Work Phone: Comment on above: Reference Range: 11. 5 - 14.5 Hematocrit (Bld) [Volume fraction] 42.8 % See Below [facility] Work Phone: Comment on above: Reference Range: 36. 0 - 46.0 Hemoglobin (Bld) [Mass/Vol] 14.6 g/dL See Below [facility] Work Phone: Comment on above: Reference Range: 12. 0 - 16.0 Lymphocytes/100 WBC (Bld) 22.9 % See Below [facility] [place] Work Phone: Comment on above: Reference Range: 13. 0 - 44.0 MCHC (RBC) [Mass/Vol] 34.1 g/dL See Below [facility] [place] [place] Work Phone: Comment on above: Reference Range: 32. 0 - 36.0 MCV (RBC) [Entitic vol] 93 fL 80 - 100 [facility] [place] Work Phone: Monocytes/100 WBC (Bld) 7.7 % 2.0 - 10.0 [facility] Work Phone: Neutrophils/100 WBC (Bld) 67.1 % See Below [facility] [place] Work Phone: Comment on above: Reference Range: 40. 0 - 80.0 Platelets (Bld) [#/Vol] 285 10*3/uL 150 - 450 [facility] [place] Work Phone: RBC (Bld) [#/Vol] 4.58 {x10E12/L} See Below [facility] [place] [place] Work Phone: Comment on above: Reference Range: 4.0 0 - 5.20 WBC (Bld) [#/Vol] 10.4 10*3/uL 4.4 - 11.3 [facility] [place] Work Phone: Complete Blood Count + Differential 0.07 {x10E9/L} See Below [facility] [place] Work Phone: Comment on above: Reference Range: 0.0 0 - 0.10 Complete Blood Count + Differential 0.12 {x10E9/L} See Below [facility] [place] Work Phone: Comment on above: Reference Range: 0.0 0 - 0.70 Complete Blood Count + Differential 0.80 {x10E9/L} See Below [facility] Work Phone: Comment on above: Reference Range: 0.1 0 - 1.00 Complete Blood Count + Differential 2.38 {x10E9/L} See Below [facility] Work Phone: Comment on above: Reference Range: 1.2 0 - 4.80 Complete Blood Count + Differential 7.00 {x10E9/L} See Below [facility] Work Phone: Comment on above: Reference Range: 1.2 0 - 7.70 Complete Blood Count + Differential 1.2 % 0.0 - 6.0 [facility] Work Phone: Complete Blood Count + Differential 0.4 % 0.0 - 0.9 [facility] Work Phone: Comment on above: Immature [...] You may also be contacted by the [facility] to see if any of your [...] or Naproxen (Aleve) can also be used. Mjxy-kxl-qplqysj cough and cold medicines can be used according to the instructions on the package. Some yvkn-uyg-xqiifbw medicines also contain acetaminophen. Make sure you [...] water are not available, use alcohol-based hand hotel reservationist. Avoid touching your eyes, nose, and mouth [...] 24 wan (more content not included)... Normal [facility] Electrocardiogram 12 Leadon 08-22-2022 Electrocardiogram 12 Lead Ventricular Rate 80 Atrial Rate 80 QRS Duration 132 Q-T Interval 400 QTC Calculation(Bazett) 461 R Molino 74 T Molino -9 QRS Count 14 Q Onset 207 T Offset 407 QTC Fredericia 440 Diagnosis Class Abnormal Diagnosis sinus rhythm with frequent PAC's in a pattern of atrial bigeminy Nonspecific intraventricular block Cannot rule out Anteroseptal infarct , age undetermined T wave abnormality, consider inferior ischemia Abnormal ECG Confirmed by Federico Wing ([id number]) on 08/22/2022 3:25:30 PM Normal [facility] INFLUENZA A/B, COVID 2019 PC R,SYMPTOMATICon 08-22-2022 INFLUENZA A, PCR Not detected Normal Not Detected [facility] Comment on above: Result Comment: Resp iratory virus testing is performed routinely by PCR for Influenza A/B and RSV. Not Detected results do not preclude Influenza A/B or RSV infections since the adequacy of sample collection or low viral burden may impact the clinical sensitivity of this test method. Performed By: #### T [facility] #### [address] [id number] INFLUENZA B, PCR Not detected Normal Not Detected [facility] Comment on above: Result Comment: Resp iratory virus testing is performed routinely by PCR for Influenza A/B and RSV. Not Detected results do not preclude Influenza A/B or RSV infections since the adequacy of sample collection or low viral burden may impact the clinical sensitivity of this test method. Performed By: #### T [facility] #### [address] [id number] SARS-CoV-2 (COVID-19) RNA REYNALDO+probe Ql (Unsp spec) Not detected Normal Not Detected [facility] Comment on above: Result Comment: . This test has received [facility] Emergency Use Authorization (EUA) and has been verified by [facility]. This test is only authorized for the duration of time that circumstances exist to justify the authorization of the emergency use of in vitro diagnostic tests for the detection of SARS-CoV-2 virus and/or diagnosis of COVID-19 infection under section 564(b)(1) of the Act, 21 U.S.C. 360bbb-3(b)(1), unless the authorization is terminated or revoked sooner. [facility] is certified under CLIA-88 as qualified to perform high complexity testing. Testing is performed in the [facility] laboratory located at [address] [place], [place] [address]. SARS-CoV-2/Flu/RSV Multiplex Test: Fact sheet for providers: https://www.fda.gov/media/524018/download Fact sheet for patients: https://www.fda.gov/media/799506/download Performed By: #### T [facility] #### [address] [id number] Lab Specimen Source Nasal, Nasopharyngeal Normal [facility] Comment on above: Performed By: #### T [facility] #### [address] [id number] INFLUENZA A/B, COVID 2019 PCR,SYMPTOMATIC Not detected See Below [facility] Work Phone: Comment on above: Reference Range: Not Detected.This test has received [facility] Emergency Use Authorization (EUA) and has been verified by [facility]. This test is only authorized for the duration of time that circumstances exist to justify the authorization of the emergency use of in vitro diagnostic tests for the detection of SARS-CoV-2 virus and/or diagnosis of COVID-19 infection under section 564(b)(1) of the Act, 21 U.S.C. 360bbb-3(b)(1), unless the authorization is terminated or revoked sooner. [facility] is certified under CLIA-88 as qualified to perform high complexity testing. Testing is performed in the [facility] laboratory located at [address] [place] [address].SARS-CoV-2/Flu/RSV Multiplex Test: Fact sheet for providers: https://www.fda.gov/media/825854/downloadFact sheet for patients: https://www.fda.gov/media/821668/download Reference Range: Not Detected Respiratory virus testing [...] dye [Mass/Vol] 4.3 g/dL 3.4 - 5.0 [facility] [place] Work Phone: ALP [Catalytic activity/Vol] 80 U/L 33 - 110 [facility] [place] Work Phone: ALT With P-5'-P [Catalytic activity/Vol] 29 U/L 7 - 45 [facility] [place] Work Phone: Comment on above: Patients treated wit h Sulfasalazine may generate falsely decreased results for ALT. Anion gap [Moles/Vol] 13 mmol/L 10 - 20 [facility] [place] Work Phone: AST With P-5'-P [Catalytic activity/Vol] 22 U/L 9 - 39 [facility] [place] Work Phone: Bilirubin [Mass/Vol] 0.4 mg/dL 0.0 - 1.2 [facility] [place] Work Phone: Calcium [Mass/Vol] 9.4 mg/dL 8.6 - 10.3 [facility] [place] Work Phone: Chloride [Moles/Vol] 102 mmol/L 98 - 107 [facility] [place] Work Phone: CO2 [Moles/Vol] 28 mmol/L 21 - 32 [facility] [place] Work Phone: Creatinine [Mass/Vol] 0.93 mg/dL See Below [facility] [place] Work Phone: Comment on above: Reference Range: 0.5 0 - 1.05 Glucose [Mass/Vol] 92 mg/dL 74 - 99 [facility] [place] Work Phone: Potassium [Moles/Vol] 3.8 mmol/L 3.5 - 5.3 [facility] [place] Work Phone: Protein [Mass/Vol] 7.8 g/dL 6.4 - 8.2 [facility] [place] Work Phone: Sodium [Moles/Vol] 139 mmol/L 136 - 145 [facility] [place] Work Phone: Urea nitrogen [Mass/Vol] 16 mg/dL 6 - 23 [facility] [place] Work Phone: Laboratory - Coagulationon 0 08-22-2022 INR Coag (PPP) [Relative time] 1.1 {INR} 0.9 - 1.1 [facility] [place] Work Phone: PT Coag (PPP) [Time] 12.6 s 9.8 - 13.4 [facility] [place] Work Phone: MAGNESIUMon 08-22-2022 Magnesium [Mass/Vol] 2.05 mg/dL Normal 1.60 - 2.40 [facility] Comment on above: Performed By: #### M G #### [address] [id number] Magnesium, Serumon Magnesium [Mass/Vol] 2.05 mg/dL See Below [facility] [place] Work Phone: Comment on above: Reference Range: 1.6 0 - 2.40 No Panel Informationon 08-22 73 {mL/min/1.73m2} >90 [facility] Work Phone: Comment on above: CALCULATIONS OF LINDSEY MATED GFR ARE PERFORMED USING THE 2020 CKD-EPI STUDY REFIT EQUATION WITHOUT THE RACE VARIABLE FOR THE IDMS-TRACEABLE CREATININE METHODS.https://jasn.asnjournals.org/content/early//ASN .7996386119 https://MUSEXPRDWE B01:808 0/musescripts/museweb.dll?R etrieveTestByDateTime?Sherice nbYZ=[id number]&Date= 023&Time=14%3a40%3a33%3a00& TestType=ECG&Site=11&Output Type=PDF&Ext=PDF [facility] [place] Work Phone: sinus rhythm with fr equent PAC's in a pattern of atrial bigeminy [facility] [place] Work Phone: Abnormal [facility] [place] Work Phone: [phone] [facility] [place] Work Phone: [phone] [facility] [place] Work Phone: [phone] [facility] [place] Work Phone: [phone] [facility] [place] Work Phone: [phone] [facility] [place] Work Phone: [phone] [facility] [place] Work Phone: [phone] [facility] [place] Work Phone: [phone] [facility] [place] Work Phone: [phone] [facility] [place] Work Phone: [phone] [facility] [place] Work Phone: Order Reconciliationon 08-22 Order Reconciliation Page 1 Admission Reconciliation Document Reconciliation Type: ED to Observation requested on behalf of Brian Curran (Physician) done by Brian Curran) ED to Observation - Partial Reconciliation: 22-Aug-2022 17:56 by: Skip Kelly) ED to Observation - AutoLinked: 22-Aug-2022 20:30 by: PSCMServruthie PSCLuana (ADMIN) ED to Observation - Reconciliation: 22-Aug-2022 20:44 by: Brian Curran) ED to Observation - Reset to Incomplete: 23-Aug-2022 19:31 by: Brian Curran) ED to Observation - Reconciliation: 23-Aug-2022 19:32 by: Brian Curran) Home MedicationsEnteredLast Dose TakenReconciled with current Order Reconciliation Comment/ Additional Information Aspirin Low Dose 81 orally once a [id number] Aspirin Chewable Tablet, ChewableDOSE = 81 mg [...] milliliter(s) injectable once a day, As Needed [id number] Reviewed and Held ferrous sulfate 200 mg (65 mg elemental iron) oral tablet 2 tab(s) orally once a [id number] Reviewed and Held metoprolol succinate 25 mg oral tablet, extended release 1 tab(s) orally once a [id number] Reviewed and Held Multiple Vitamins oral tablet 1 tab(s) orally once a [id number] Reviewed and Held omeprazole 40 mg oral delayed release capsule 1 cap(s) orally once a day 22-Aug-2022 Pantoprazole Enteric Coated Tablet (PROTONIX)DOSE = 40 mg Oral Dailyomeprazole 40 mg oral delayed release capsule continued as the inpatient order Pantoprazole sertraline 50 mg oral tablet 1 tab(s) orally once a [id number] Sertraline Tablet (ZOLOFT)DOSE = 50 mg Oral Dailysertraline 50 mg oral tablet continued as the inpatient order Sertraline solifenacin 5 mg oral tablet 1 tab(s) orally once a [id number] Reviewed and Held Vitamin D3 1000 intl [...] Every 8 Hours and as Needed Normal [facility] PT/INRon 08-22-2022 PT Coag (PPP) [Time] 12.6 s Normal 9.8 - 13.4 [facility] Comment on above: Performed By: #### T [facility] #### [address] [id number] PT, INR 1.1 Normal 0.9 - 1.1 [facility] Comment on above: Performed By: #### T [facility] #### [address] [id number] Provider Note - ED v3on Provider Note [...] results: Troponin I, High Sensitivity Trending View [id number] 16:27:00 22-Aug-2022 15:09:00 Troponin I, High Sensitivity3 [...] Authorization (EUA) and has been verified by [facility]. This test is only authorized for the duration of time that circumsta Complete Blood Count + Differential 22-Aug-2022 15:09:00 ResultValue White Blood Cell Count 10.4 Red Blood Cell Count 4.58 HGB 14.6 HCT 42.8 MCV 93 MCHC 34.1 PLT 285 RDW-CV 12.4 Neutrophil % 67.1 Immature Granulocytes % 0.4 Lymphocyt (more content not included)... Normal [facility] Radiologyon 08-22-2022 XR Chest Single view Normal MP-N [facility] Work Phone: TROPONIN I, HIGH SENSITIVITY on 08-22-2022 TROPONIN I, HIGH SENSITIVITY 3 ng/L Normal 0 - 13 [facility] Comment on above: Result Comment: . Less [...] performed using a different testing methodology at [facility] than at other [facility]. Direct result comparisons should only be made within the same method. Performed By: #### T [facility] #### [address] [id number] Tropinin I.cardiac panel High sensitivity method 3 ng/L 0 - 13 -[facility] Work Phone: Comment on above: .Less [...] performed using a different testing methodology at [facility] than at other [facility]. Direct result comparisons should only be made within the same method. TROPONIN I, HIGH SENSITIVITY 3 ng/L Normal 0 - 13 [facility] Comment on above: Result Comment: . Less [...] performed using a different testing methodology at [facility] than at other [facility]. Direct result comparisons should only be made within the same method. Performed By: #### M G #### [address] [id number] TROPONIN I, HIGH SENSITIVITY 3 ng/L Normal 0 - 13 [facility] Comment on above: Result Comment: . Less [...] performed using a different testing methodology at [facility] than at [facility]. Direct result comparisons should only be made within the same method. Performed By: #### T [facility] #### [address] [id number] Tropinin I.cardiac panel High sensitivity method 3 ng/L 0 - 13 [facility] Work Phone: Comment on above: .Less [...] performed using a different testing methodology at [facility] than at other [facility]. Direct result comparisons should only be made within the same method. Tropinin I.cardiac panel High sensitivity method 3 ng/L 0 - 13 -[facility] cand[place] Work Phone: Comment on above: .Less than [...] performed using a different testing methodology at [facility] than at other [facility]. Direct result comparisons should only be [...] Last Updated: 22-Aug-2022 14:49 by Michelle Herrera) [facility] Office Visit (Cardiology)on 08-18-2022 Follow-up [...] Use Screening; Status:Complete; Done: 18Aug2022 Patient Instructions [email or web address] PLEASE BRING ALL MEDICATIONS IN ORIGINAL BOTTLES [...] for the new patient portal platform through [facility]. If you have not [...] the decision made by me. 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 (more content not included)... Normal [place] Tobacco Screening.on 023 Adult depression screening assessment No [facility] [address] [facility] Work Phone: Fall risk assessment a) No falls within the last year [facility] [address] [facility] Work Phone: Tobacco use status CPHS b) No [facility] [address] DO Work Phone: CARDIAC ELIA 3-6on 3 CK [Catalytic activity/Vol] 110 U/L Normal 26-192 [facility] Comment on above: Performed By: #### B MP, MG #### [facility] [address] [place] [address] Dr. Betsy Velazquez CK.MB [Mass/Vol] 1.74 ng/mL Normal <=3.60 [facility] Comment on above: Performed By: #### B MP, MG #### [facility] [address] [place] [address] Dr. Betsy Velazquez HSTROP 6.3 pg/mL Normal 4.0-51.3 [facility] Comment on above: Result Comment: CUT- OFF POINTS HAVE BEEN ESTABLISHED BASED ON THE FOURTH UNIVERSAL DEFINITIONS OF MYOCARDIAL INFARCTION. THE UPPER REFERENCE LIMIT (URL) OF TROPONIN, DEFINED THE 99TH PERCENTILE OF cTnI DISTRIBUTION IN A REFERENCE POPULATION, HAS BEEN CONFIRMED THE DECISION THRESHOLD FOR [place] DIAGNOSIS. Performed By: #### B MP, MG #### [facility] [address] [place] [address] Dr. Betsy Velazquez CK [Catalytic activity/Vol] 123 U/L Normal 26-192 [facility] Comment on above: Performed By: #### C MREP #### [facility] [address] [address] [address] Betsy Velazquez CK.MB [Mass/Vol] 1.90 ng/mL Normal <=3.60 [facility] Comment on above: Performed By: #### C MREP #### [facility] [address] [address] [address] Betsy Velazquez HSTROP 5.9 pg/mL Normal 4.0-51.3 [facility] Comment on above: Result Comment: CUT- OFF POINTS HAVE BEEN ESTABLISHED BASED ON THE FOURTH UNIVERSAL DEFINITIONS OF MYOCARDIAL INFARCTION. THE UPPER REFERENCE LIMIT (URL) OF TROPONIN, DEFINED THE 99TH PERCENTILE OF cTnI DISTRIBUTION IN A REFERENCE POPULATION, HAS BEEN CONFIRMED THE DECISION THRESHOLD FOR [place] DIAGNOSIS. Performed By: #### C MREP #### [facility] [address] [place] [address] Dr. Betsy Velazquez CBC AUTO DIFFon 06-29-2022 BASO # 0.1 103/ul Normal 0.0-0.1 [facility] Comment on above: Performed By: #### C BC #### [facility] [address] [place] [address] Dr. Betsy Velazquez Basophils/100 WBC (Bld) 0.7 % Normal 0.2-2.0 [facility] Comment on above: Performed By: #### C BC #### [facility] [address] [place] [address] Dr. Betsy Velazquez EO # 0.1 103/ul Normal 0.0-0.7 [facility] Comment on above: Performed By: #### C BC #### [facility] [address] [place] [address] Dr. Betsy Velazquez Eosinophils/100 WBC (Bld) 1.4 % Normal 0.9-7.0 [facility] Comment on above: Performed By: #### C BC #### [facility] [address] [place] [address] Dr. Betsy Velazquez Erythrocyte distribution width (RBC) [Ratio] 12.8 % Normal 11.0-15.0 [facility] Comment on above: Performed By: #### C BC #### [facility] [address] [place] [address] Dr. Betsy Velazquez Hematocrit (Bld) [Volume fraction] 41.4 % Normal 36.0-48.0 [facility] Comment on above: Performed By: #### C BC #### [facility] [address] [place] [address] Dr. Betsy Velazquez Hemoglobin (Bld) [Mass/Vol] 13.4 g/dL Normal 12.0-16.0 [facility] Comment on above: Performed By: #### C BC #### [facility] [address] [place] [address] Dr. Betsy Velazquez IG # 0.04 10e3/ul Critically high 0.00-0.03 [facility] Comment on above: Performed By: #### C BC #### [facility] [address] [place] [address] Dr. Betsy Velazquez IG % 0.4 % Normal 0.0-0.5 [facility] Comment on above: Performed By: #### C BC #### [facility] [address] [place] [address] Dr. Betsy Velazquez LYMPH # 2.6 103/ul Normal 1.2-3.8 [facility] Comment on above: Performed By: #### C BC #### [facility] [address] [place] [address] Dr. Betsy Velazquez Lymphocytes/100 WBC (Bld) 26.5 % Normal 20.5-60.0 [facility] Comment on above: Performed By: #### C BC #### [facility] [address] [place] [address] Dr. Betsy Velazquez MANUAL DIFF REQ NO Normal [facility] Comment on above: Performed By: #### C BC #### [facility] [address] [place] [address] Dr. Betsy Velazquez MCH (RBC) [Entitic mass] 31.5 pg Normal 26.7-34.0 [facility] Comment on above: Performed By: #### C BC #### [facility] [address] [address] [address] Betsy Velazquez MCHC (RBC) [Mass/Vol] 32.4 g/dL Normal 29.9-35.2 [facility] Comment on above: Performed By: #### C BC #### [facility] [address] [address] [address] Betsy Velazquez MCV (RBC) [Entitic vol] 97.2 fL Normal 81.0-99.0 [facility] Comment on above: Performed By: #### C BC #### [facility] [address] [place] [address] Dr. Betsy Velazquez MONO # 0.8 103/ul Normal 0.3-0.8 [facility] Comment on above: Performed By: #### C BC #### [facility] [address] [place] [address] Dr. Betsy Velazquez Monocytes/100 WBC (Bld) 7.6 % Normal 1.7-12.0 [facility] Comment on above: Performed By: #### C BC #### [facility] [address] [place] [address] Dr. Betsy Velazquez NEUT # 6.3 103/ul Normal 1.4-6.5 [facility] Comment on above: Performed By: #### C BC #### [facility] [address] [place] [address] Dr. Betsy Velazquez Neutrophils/100 WBC (Bld) 63.4 % Normal 43.0-75.0 [facility] Comment on above: Performed By: #### C BC #### [facility] [address] [place] [address] Dr. Betsy Velazquez Platelet mean volume (Bld) [Entitic vol] 11.3 fL Normal 9.5-13.5 [facility] Comment on above: Performed By: #### C BC #### [facility] [address] [place] [address] Dr. Betsy Velazquez PLT 258 103/ul Normal 150-450 [facility] Comment on above: Performed By: #### C BC #### [facility] [address] [address] [address] Betsy Velazquez RBC 4.26 106/ul Normal 4.20-5.40 [facility] Comment on above: Performed By: #### C BC #### [facility] [id number] Betsy Velazquez WBC 10.0 103/ul Normal 4.0-11.0 [facility] Comment on above: Performed By: #### C BC #### [facility] [id number] Betsy Velazquez Covid-19 PCR (CVDTBH)on 06-18 SARS-CoV-2 (COVID-19) RNA REYNALDO+probe Ql (Unsp spec) Not detected Normal NOT DETECTED [facility] Comment on above: Result Comment: [...] for this test is supported by the [place] of Health and Human Service's declaration that [...] used). Performed By: #### C VDTBH #### [facility] [id number] Betsy Velazquez ECHO LIMITED STUDYon 023 ECHO LIMITED STUDY Patient: SARAH HANNA Exam Date: 06/29/2022 : 1970 Gender:F Ordering : BONY SOLARES Admission #: [id number] Family : KAYLA DENT Order #: [id number] CLICK HERE TO VIEW EXAM ECHOCARDIOGRAM REPORT [...] Martinez M.D. on 06/30/2022 at 13:52 Normal [facility] GLYCOHEMOGLOBIN A1Con 2022 ADA RECOMMENDATION SEE BELOW Normal [facility] Comment on above: Result Comment: ADA RECOMMENDED LIMIT 4.0 - 6.0 ADA THERAPEUTIC TARGET < 7.0 ACTION SUGGESTED > 7.0 Performed By: #### B MP, MG #### [facility] [address] [address] [address] Betsy Velazquez Glucose [Mass/Vol] 120 mg/dL Normal [facility] Comment on above: Performed By: #### B MP, MG #### [facility] [address] [address] [address] Betsy Velazquez HbA1c (Bld) [Mass fraction] 5.8 % Normal 4.5-6.2 [facility] Comment on above: Performed By: #### B MP, MG #### [facility] [address] [address] [address] Betsy Velazquez LIPID PROFILEon 06-29-2022 CHOL-HDL RATIO NORM SEE BELOW Normal [facility] Comment on above: Result Comment: 3.3 - 4.4 LOW RISK 4.4 - 7.1 AVERAGE RISK 7.1 - 11.0 MODERATE RISK >11.0 HIGH RISK Performed By: #### L IPID, TSH #### [facility] [address] [place] [address] Dr. Betsy Velazquez Cholesterol [Mass/Vol] 168 mg/dL Normal <=200 [facility] Comment on above: Performed By: #### L IPID, TSH #### [facility] [address] [place] [address] Dr. Betsy Velazquez Cholesterol in HDL [Mass/Vol] 55 mg/dL Normal 40-60 [facility] Comment on above: Performed By: #### L IPID, TSH #### [facility] [address] [place] [address] Dr. Betsy Velazquez Cholesterol in LDL [Mass/Vol] 97.0 mg/dL Normal [facility] Comment on above: Performed By: #### L IPID, TSH #### [facility] [address] [place] [address] Dr. Betsy Velazquez Cholesterol.total/Ch olesterol in HDL [Mass ratio] 3.1 {ratio} Normal [facility] Comment on above: Performed By: #### L IPID, TSH #### [facility] [address] [place] [address] Dr. Betsy Velazquez HDL NORMAL > or = 60 mg/dl - LO W CARDIOVASCULAR RISK <40 mg/dl - HIGH CARDIOVASCULAR RISK Normal [facility] Comment on above: Performed By: #### L IPID, TSH #### [facility] [address] [place] [address] Dr. Betsy Velazquez LDL CALC NORMAL SEE BELOW Normal [facility] Comment on above: Result Comment: <100 mg/dl OPTIMAL 100 - 129 mg/dl NEAR OR ABOVE OPTIMAL 130 - 159 mg/dl BORDERLINE HIGH 160 - 189 mg/dl HIGH >190 mg/dl VERY HIGH Performed By: #### L IPID, TSH #### [facility] [address] [place] [address] Dr. Betsy Velazquez Triglyceride [Mass/Vol] 80 mg/dL Normal <=150 [facility] Comment on above: Performed By: #### L IPID, TSH #### [facility] [address] [place] [address] Dr. Betsy Velazquez VLDL CALC 16.0 mg/dL Normal [facility] Comment on above: Performed By: #### L IPID, TSH #### [facility] [address] [place] [address] Dr. Betsy Velazquez MAGNESIUMon 06-29-2022 Magnesium [Mass/Vol] 2.1 mg/dL Normal 1.8-2.4 [facility] Comment on above: Performed By: #### B MP, MG #### [facility] [address] [place] [address] Dr. Betsy Velazquez PROF CHEM 8 (BAS METB)on Anion gap [Moles/Vol] 10.8 mmol/L Normal [facility] Comment on above: Performed By: #### B MP, MG #### [facility] [address] [place] [address] Dr. Betsy Velazquez Calcium [Mass/Vol] 9.0 mg/dL Normal 8.5-10.1 [facility] Comment on above: Performed By: #### B MP, MG #### [facility] [address] [place] [address] Dr. Betsy Velazquez Chloride [Moles/Vol] 104 mmol/L Normal 98-107 [facility] Comment on above: Performed By: #### B MP, MG #### [facility] [address] [place] [address] Dr. Betsy Velazquez CO2 [Moles/Vol] 28.1 mmol/L Normal 21.0-32.0 [facility] Comment on above: Performed By: #### B MP, MG #### [facility] [address] [place] [address] Dr. Betsy Velazquez Creatinine [Mass/Vol] 0.86 mg/dL Normal 0.55-1.02 [facility] Comment on above: Performed By: #### B MP, MG #### [facility] [address] [place] [address] Dr. Betsy Velazquez EGFR-AF DUTCH >60 Normal >=60 [facility] Comment on above: Performed By: #### B MP, MG #### [facility] [address] [place] [address] Dr. Betsy Velazquez EGFR-NON AF DUTCH >60 Normal >=60 [facility] Comment on above: Performed By: #### B MP, MG #### [facility] [address] [place] [address] Dr. Betsy Velazquez Glucose [Mass/Vol] 111 mg/dL Critically high 74-106 [facility] Comment on above: Performed By: #### B MP, MG #### [facility] [address] [place] [address] Dr. Betsy Velazquez Potassium [Moles/Vol] 3.9 mmol/L Normal 3.5-5.1 [facility] Comment on above: Performed By: #### B MP, MG #### [facility] [address] [place] [address] Dr. Betsy Velazquez Sodium [Moles/Vol] 139 mmol/L Normal 136-145 [facility] Comment on above: Performed By: #### B MP, MG #### [facility] [address] [place] [address] Dr. Betsy Velazquez Urea nitrogen [Mass/Vol] 18.0 mg/dL Normal 7.0-18.0 [facility] Comment on above: Performed By: #### B MP, MG #### [facility] [address] [place] [address] Dr. Betsy Velazquez Urea nitrogen/Creatinine [Mass ratio] 20.9 mg/mg Normal [facility] Comment on above: Performed By: #### B MP, MG #### [facility] [address] [address] [address] Betsy Velazquez TSHon 06-29-2022 TSH 1.981 uIU/mL Normal 0.358-3.740 [facility] Comment on above: Performed By: #### L IPID, TSH #### [facility] [address] [place] [address] Dr. Betsy Velazquez XR CHEST 1 Von [...] MARKO GARY Date: 2022-06-28 22:50 Normal [facility] CARDIAC ELIA ADMITon 023 CK [Catalytic activity/Vol] 149 U/L Normal 26-192 [facility] Comment on above: Performed By: #### B MP, MG #### [facility] [address] [place] [address] Dr. Betsy Velazquez CK.MB [Mass/Vol] 2.34 ng/mL Normal <=3.60 [facility] Comment on above: Performed By: #### B MP, MG #### [facility] [address] [place] [address] Dr. Betsy Velazquez HSTROP 5.5 pg/mL Normal 4.0-51.3 [facility] Comment on above: Result Comment: CUT- OFF POINTS HAVE BEEN ESTABLISHED BASED ON THE FOURTH UNIVERSAL DEFINITIONS OF MYOCARDIAL INFARCTION. THE UPPER REFERENCE LIMIT (URL) OF TROPONIN, DEFINED THE 99TH PERCENTILE OF cTnI DISTRIBUTION IN A REFERENCE POPULATION, HAS BEEN CONFIRMED THE DECISION THRESHOLD FOR [place] DIAGNOSIS. Performed By: #### B MP, MG #### [facility] [address] [place] [address] Dr. Betsy Velazquez CHRISTOPHER 50 ng/mL Normal 9-82 [facility] Comment on above: Performed By: #### B MP, MG #### [facility] [address] [place] [address] Dr. Betsy Velazquez CBC AUTO DIFFon 06-28-2022 BASO # 0.1 103/ul Normal 0.0-0.1 [facility] Comment on above: Performed By: #### C BC #### [facility] [address] [place] [address] Dr. Betsy Velazquez Basophils/100 WBC (Bld) 0.6 % Normal 0.2-2.0 [facility] Comment on above: Performed By: #### C BC #### [facility] [address] [place] [address] Dr. Betsy Velazquez EO # 0.2 103/ul Normal 0.0-0.7 [facility] Comment on above: Performed By: #### C BC #### [facility] [address] [place] [address] Dr. Betsy Velazquez Eosinophils/100 WBC (Bld) 2.0 % Normal 0.9-7.0 [facility] Comment on above: Performed By: #### C BC #### [facility] [address] [place] [address] Dr. Betsy Velazquez Erythrocyte distribution width (RBC) [Ratio] 12.8 % Normal 11.0-15.0 [facility] Comment on above: Performed By: #### C BC #### [facility] [address] [place] [address] Dr. Betsy Velazquez Hematocrit (Bld) [Volume fraction] 41.8 % Normal 36.0-48.0 [facility] Comment on above: Performed By: #### C BC #### [facility] [address] [place] [address] Dr. Betsy Velazquez Hemoglobin (Bld) [Mass/Vol] 13.8 g/dL Normal 12.0-16.0 [facility] Comment on above: Performed By: #### C BC #### [facility] [address] [place] [address] Dr. Betsy Velazquez IG # 0.04 10e3/ul Critically high 0.00-0.03 [facility] Comment on above: Performed By: #### C BC #### [facility] [address] [place] [address] Dr. Betsy Velazquez IG % 0.3 % Normal 0.0-0.5 [facility] Comment on above: Performed By: #### C BC #### [facility] [address] [place] [address] Dr. Betsy Velazquez LYMPH # 3.1 103/ul Normal 1.2-3.8 [facility] Comment on above: Performed By: #### C BC #### [facility] [address] [place] [address] Dr. Betsy Velazquez Lymphocytes/100 WBC (Bld) 26.9 % Normal 20.5-60.0 [facility] Comment on above: Performed By: #### C BC #### [facility] [address] [place] [address] Dr. Betsy Velazquez MANUAL DIFF REQ NO Normal [facility] Comment on above: Performed By: #### C BC #### [facility] [address] [place] [address] Dr. Betsy Velazquez MCH (RBC) [Entitic mass] 31.4 pg Normal 26.7-34.0 [facility] Comment on above: Performed By: #### C BC #### [facility] [address] [place] [address] Dr. Betsy Velazquez MCHC (RBC) [Mass/Vol] 33.0 g/dL Normal 29.9-35.2 [facility] Comment on above: Performed By: #### C BC #### [facility] [address] [place] [address] Dr. Betsy Velazquez MCV (RBC) [Entitic vol] 95.2 fL Normal 81.0-99.0 [facility] Comment on above: Performed By: #### C BC #### [facility] [address] [address] [address] Betsy Velazquez MONO # 0.9 103/ul Critically high 0.3-0.8 [facility] Comment on above: Performed By: #### C BC #### [facility] [address] [place] [address] Dr. Betsy Velazquez Monocytes/100 WBC (Bld) 7.8 % Normal 1.7-12.0 [facility] Comment on above: Performed By: #### C BC #### [facility] [address] [place] [address] Dr. Betsy Velazquez NEUT # 7.2 103/ul Critically high 1.4-6.5 [facility] Comment on above: Performed By: #### C BC #### [facility] [address] [place] [address] Dr. Betsy Velazquez Neutrophils/100 WBC (Bld) 62.4 % Normal 43.0-75.0 [facility] Comment on above: Performed By: #### C BC #### [facility] [address] [place] [address] Dr. Betsy Velazquez Platelet mean volume (Bld) [Entitic vol] 11.1 fL Normal 9.5-13.5 [facility] Comment on above: Performed By: #### C BC #### [facility] [address] [place] [address] Dr. Betsy Velazquez PLT 272 103/ul Normal 150-450 [facility] Comment on above: Performed By: #### C BC #### [facility] [address] [place] [address] Dr. Betsy Velazquez RBC 4.39 106/ul Normal 4.20-5.40 [facility] Comment on above: Performed By: #### C BC #### [facility] [address] [place] [address] Dr. Betsy Velazquez WBC 11.6 103/ul Critically high 4.0-11.0 [facility] Comment on above: Performed By: #### C BC #### [facility] [address] [address] [address] Betsy Velazquez PROF CHEM 8 (BAS METB)on Anion gap [Moles/Vol] 12.8 mmol/L Normal [facility] Comment on above: Performed By: #### B MP, MG #### [facility] [address] [place] [address] Dr. Betsy Velazquez Calcium [Mass/Vol] 9.4 mg/dL Normal 8.5-10.1 [facility] Comment on above: Performed By: #### B MP, MG #### [facility] [address] [place] [address] Dr. Betsy Velazquez Chloride [Moles/Vol] 102 mmol/L Normal 98-107 [facility] Comment on above: Performed By: #### B MP, MG #### [facility] [address] [place] [address] Dr. Betsy Velazquez CO2 [Moles/Vol] 25.7 mmol/L Normal 21.0-32.0 [facility] Comment on above: Performed By: #### B MP, MG #### [facility] [address] [place] [address] Dr. Betsy Velazquez Creatinine [Mass/Vol] 1.03 mg/dL Critically high 0.55-1.02 [facility] Comment on above: Performed By: #### B MP, MG #### [facility] [address] [place] [address] Dr. Betsy Velazquez EGFR-AF DUTCH >60 Normal >=60 [facility] Comment on above: Performed By: #### B MP, MG #### [facility] [address] [place] [address] Dr. Betsy Velazquez EGFR-NON AF DUTCH 56 mL/min/1.73m2 Critically low >=60 [facility] Comment on above: Performed By: #### B MP, MG #### [facility] [address] [place] [address] Dr. Betsy Velazquez Glucose [Mass/Vol] 93 mg/dL Normal 74-106 [facility] Comment on above: Performed By: #### B MP, MG #### [facility] [address] [address] [address] Betsy Velazquez Potassium [Moles/Vol] 3.5 mmol/L Normal 3.5-5.1 [facility] Comment on above: Performed By: #### B MP, MG #### [facility] [address] [address] [address] Betsy Velazquez Sodium [Moles/Vol] 137 mmol/L Normal 136-145 [facility] Comment on above: Performed By: #### B MP, MG #### [facility] [address] [address] [address] Betsy Velazquez Urea nitrogen [Mass/Vol] 21.0 mg/dL Critically high 7.0-18.0 [facility] Comment on above: Performed By: #### B MP, MG #### [facility] [address] [address] [address] Betsy Velazquez Urea nitrogen/Creatinine [Mass ratio] 20.4 mg/mg Normal [facility] Comment on above: Performed By: #### B MP, MG #### [facility] [address] [address] [address] Betsy Velazquez DIGITAL DIAG MAMM BILAT WITH TOMOon 12-28-2021 DIGITAL DIAG MAMM BILAT WITH MASON Patient Name: RASHEEDA NICHOLE STUDY: DIGITAL DIAG MAMM BILAT WITH MASON; BREAST ULTRASOUND; 12/28/2021 9:31 am; 12/28/2021 9:59 am ACCESSION NUMBER(S): [id number]; [id number] ORDERING CLINICIAN: BARBARA HARRY INDICATION: breast lump [...] any future breast imaging appointments, please call [phone] ([phone]). Electronically signed by: ELIA RON MD Normal [facility] Radiologyon 12-28-2021 MG Breast Diagnostic Normal MP[facility]st Work Phone: ULTRASOUND LIMITED BREASTon 12-28-2021 ULTRASOUND LIMITED BREAST Patient Name: RASHEEDA NICHOLE STUDY: DIGITAL DIAG MAMM BILAT WITH MASON; BREAST ULTRASOUND; 12/28/2021 9:31 am; 12/28/2021 9:59 am ACCESSION NUMBER(S): [id number]; [id number] ORDERING CLINICIAN: BARBARA HARRY INDICATION: breast lump [...] any future breast imaging appointments, please call [phone] ([phone]). Electronically signed by: ELIA RON MD Normal [facility] Ultrasound Limited Breaston 12-28-2021 MG Breast Screening Normal MP-Tr [facility] her[facility] Work Phone: Office Visit (Cardiology)on 12-21-2021 Follow-up visit Diagnoses/Problems Assessed Obesity (BMI 35.0-39.9 without comorbidity) (278.00) (E66.9) Orders Obesity (BMI 35.0-39.9 without comorbidity) Healthy Weight Tips; Status:Complete - Retrospective Authorization; Done: [id number] Some eating tips that can help you lose weight.; Status:Complete - Retrospective Authorization; Done: [id number] Patient Instructions FOLLOW UP NEEDED ONLY YOUR [...] further questions arise, Sincerely, Samara Roe MD [facility] Surgical History Problems History of Carpal tunnel surgery History of section 1990, 1992, 1995 History of Cholecystectomy 2017 History of Tubal ligation bilateral 1995 History of [place] tooth extraction Past Medical History Problems Colon [...] 1 TABLET DAILY. Vitamin D3 50 MCG (1999) O (more content not included)... Normal [place] Tobacco Screening.on 022 Adult depression screening assessment No [facility] Work Phone: Tobacco use status [facility] b) No [facility] n [facility] DO Work Phone: Office Visiton 11-22-2021 Follow-up visit Diagnoses/Problems Screening breast examination (V76.10) (Z12.39) Breast lump on right side at 12 o'clock position (611.72) (N63.15) Orders Breast lump on right side at 12 o'clock position Mamm Digital Diagnostic Mammography Unilateral Right; Status:Active; Requested for:30Nov2021; Patient is scheduled for 11-30-21 @ 1:30pm at [facility]. Thank you. Laterality : Right Radiologist to Determine Optimal Study : Y What are the patient's signs and symptoms? : breast lump Screening breast examination Mamm - Screening Mammogram; Status:Active; Requested for:22Nov2021; Patient is scheduled at [facility] on 11-30-21. Thank you. Indications for [...] of Tubal (more content not included)... Normal [facility] Tobacco Screening.on 022 Fall risk assessment a) [facility] the [facility]: Tobacco use status [facility] b) No [facility] Work Phone: PHQ-2 [facility]3] 07-12-2021 Adult depression screening assessment Negative [facility] Work Phone: Fall risk assessment a) No falls within the last year [facility] Work Phone: Tobacco use status [facility] b) No [facility] herst Work Phone: Tobacco Screening.on 022 Fall risk assessment a) No falls within the last year [facility] n 127 DO Work Phone: Tobacco use status [facility] b) No [facility] n 127 DO Work Phone: Laboratory - Microbiology an d Antimicrobial susceptibilityon 06-14-2021 SARS-CoV-2 (COVID-19) RNA REYNALDO+probe Ql (Unsp spec) Pass Normal Pass [facility] herst Work Phone: No Panel Informationon 06-14 NO Normal [facility] herst Work Phone: YES Normal [facility] herst Work Phone: Unknown Normal [facility] herst Work Phone: Not detected Normal Not Detected [facility] herst Work Phone: Comment on above: This test result jakob uld be correlated with clinical presentations and medical history by a healthcare provider to determine its clinical significance.This assay was performed by a reverse transcriptase real-time polymerase chain reaction (rt PCR) method on the [employer] system. This test has been authorized only [...] is terminated or revoked sooner. Nasal Normal [facility] Work Phone: Cardiac Stress Teston 2020 Cardiac Stress Test Please click on the link to view the study images Normal [facility] n [facility] DO Work Phone: Cardiac [facility] Work Phone: Echocardiogramon 06-07-2021 Echocardiography Please click on the link to view the study images Normal [facility] n [facility] DO Work Phone: Hepatic Function Panelon Albumin BCP dye [Mass/Vol] 3.9 g/dL 3.4 - 5.0 [facility] n 127 DO Work Phone: ALP [Catalytic activity/Vol] 71 U/L 33 - 110 [facility] n 127 DO Work Phone: ALT With P-5'-P [Catalytic activity/Vol] 26 U/L 7 - 45 [address] [place] [address] DO Work Phone: Comment on above: Patients treated wit h Sulfasalazine may generate falsely decreased results for ALT. AST With P-5'-P [Catalytic activity/Vol] 20 U/L 9 - 39 [facility] n 127 DO Work Phone: Bilirubin [Mass/Vol] 0.4 mg/dL 0.0 - 1.2 [facility] n 127 DO Work Phone: Bilirubin.direct [Mass/Vol] 0.1 mg/dL 0.0 - 0.3 [facility] n 127 DO Work Phone: Protein [Mass/Vol] 7.2 g/dL 6.4 - 8.2 [facility] n 127 DO Work Phone: Laboratory - Chemistry and C hemistry - challengeon 05-17-2021 Anion gap [Moles/Vol] 14 mmol/L 10 - 20 [facility] n 127 DO Work Phone: [phone] Calcium [Mass/Vol] 9.1 mg/dL 8.6 - 10.3 [facility] n 127 DO Work Phone: Chloride [Moles/Vol] 102 mmol/L 98 - 107 [facility] n 127 DO Work Phone: CO2 [Moles/Vol] 27 mmol/L 21 - 32 [facility] n 127 DO Work Phone: [phone] Creatinine [Mass/Vol] 0.81 mg/dL See Below [address] [place] [address] DO Work Phone: Comment on above: Reference Range: 0.5 0 - 1.05 Glucose [Mass/Vol] 93 mg/dL 74 - 99 [facility] n 127 DO Work Phone: [phone] Potassium [Moles/Vol] 4.2 mmol/L 3.5 - 5.3 [facility] n 127 DO Work Phone: Sodium [Moles/Vol] 139 mmol/L 136 - 145 [facility] n [facility] DO Work Phone: Urea nitrogen [Mass/Vol] 13 mg/dL 6 - 23 [facility] [place] [facility] [place] [address] [facility] Work Phone: [phone] Laboratory - Hematology and Cell countson 05-17-2021 Erythrocyte distribution width (RBC) [Ratio] 13.2 % See Below [facility] [address] [facility] Work Phone: Comment on above: Reference Range: 11. 5 - 14.5 Hematocrit (Bld) [Volume fraction] 39.5 % See Below [address] [place] [address] DO Work Phone: Comment on above: Reference Range: 36. 0 - 46.0 Hemoglobin (Bld) [Mass/Vol] 13.2 g/dL See Below [address] [address] DO Work Phone: Comment on above: Reference Range: 12. 0 - 16.0 MCHC (RBC) [Mass/Vol] 33.4 g/dL See Below [address] [place] [address] DO Work Phone: [phone] Comment on above: Reference Range: 32. 0 - 36.0 MCV (RBC) [Entitic vol] 97 fL 80 - 100 [address] [address] DO Work Phone: Platelets (Bld) [#/Vol] 247 10*3/uL 150 - 450 [address] [address] DO Work Phone: RBC (Bld) [#/Vol] 4.07 {x10E12/L} See Below [place] [address] DO Work Phone: Comment on above: Reference Range: 4.0 0 - 5.20 WBC (Bld) [#/Vol] 7.8 10*3/uL 4.4 - 11.3 [place] [address] DO Work Phone: Lipid Panelon 05-17-2021 Cholesterol [Mass/Vol] 176 mg/dL 0 - 199 [address] [address] DO Work Phone: Comment on above: . [...] dosing. Cholesterol in HDL [Mass/Vol] 63.0 mg/dL [facility] n 127 DO Work Phone: Comment on above: . AGE VERY LOW LOW N ORMAL HIGH 0-19 Y < 35 < 40 40-45 ---- 20- 24 Y ---- < 40 >45 ---- >24 Y ---- < 40 40-60 >60. Cholesterol in LDL [Mass/Vol] 96 mg/dL 0 - 99 [facility] [place] n 127 DO Work Phone: Comment on above: . NEAR BORD AGE LUIS RABLE OPTIMAL HIGH HIGH VERY HIGH 0-19 Y 0 - 109 --- 110-129 >/= 130 ---- 20-24 Y 0 - 119 --- 120-159 >/= 160 ---- >24 Y 0 - 99 100-129 130-159 160-189 >/=190. Cholesterol.total/Ch olesterol in HDL [Mass ratio] 2.8 {ratio} [facility] [place] n 127 DO Work Phone: Comment on above: REF VALUESDESIRABLE < 3.4HIGH RISK > 5.0 Triglyceride [Mass/Vol] 87 mg/dL 0 - 149 [email or web address] n 127 DO Work Phone: Comment on [...] Lipid Panel 17 mg/dL 0 - 40 [address] [address] DO Work Phone: Magnesium, Serumon Magnesium [Mass/Vol] 1.90 mg/dL See Below [place] [address] DO Work Phone: Comment on above: Reference Range: 1.6 0 - 2.40 No Panel Informationon 05-17 >60 >60 [address] [address] DO Work Phone: Comment on above: CALCULATIONS OF LINDSEY MATED GFR ARE PERFORMED USING THE MDRD STUDY EQUATION FOR THE IDMS-TRACEABLE CREATININE METHODS. CLIN CHEM 2007;53:766-72 T4 - Free Thyroxine, Serumon 05-17-2021 Free T4 [Mass/Vol] 0.90 ng/dL See Below [place] [address] DO Work Phone: Comment on above: Reference Range: 0.6 1 - 1.12 Thyroxine Free testing is performed using different testing methodology at [facility] than at other [facility]. Direct result comparisons should only be [...] 05-17-2021 TSH Qn 1.76 m[IU]/L See Below [address] [address] DO Work Phone: Comment on above: Reference Range: 0.4 4 - 3.98 TSH testing is performed using different testing methodology at [facility] than at other [facility]. Direct result comparisons should only be made within the same method. Tobacco Screening.on 021 Fall risk assessment a) No falls within the last year -[facility] n 127 DO Work Phone: Tobacco use status [facility] b) No -[facility] n 127 DO Work Phone: HCG, Serum - Qualitativeon 1 06-22-2020 HCG ( test) Ql Negative Negative -[facility] herst Work Phone: No Panel Informationon 04-22 [email or web address]:8080/ musescripts/[email or web address].dll?Ret rieveTestByDateTime?Patient ZH=[id number]&Date= 1&Time=06%3a23%3a29%3a00&Te stType=ECG&Site=11&OutputTy pe=PDF&Ext=PDF -[facility] herst Work Phone: Sinus rhythm with pr emature supraventricular complexes -[facility] herst Work Phone: Borderline Abnormal -[facility] herst Work Phone: [phone] -[facility] Work Phone: [phone] -[facility] Work Phone: [phone] -[facility] Work Phone: [phone] -[facility] Work Phone: [phone] -[facility] Work Phone: [phone] 1 -[facility] Work Phone: [phone] -[facility] Work Phone: [phone] 1 -[facility] Work Phone: 51 1 -[facility] Work Phone: [phone] [facility] herst Work Phone: [phone] [facility] Work Phone: [phone] [facility] Work Phone: [phone] [facility] Work Phone: [phone] [facility] Work Phone: Coronavirus 2019 RNA by PCR, Screening Asymptomticon 04-20-2021 Coronavirus 2019 RNA by PCR, Screening Asymptomtic Not detected Normal See Below -[facility] Work Phone: Comment on above: SOURCE: [...] make patient management decisions.Fact sheet for providers: https://www.fda.gov/media/178411/downloadFact sheet for patients: https://www.fda.gov/media/724510/downloadThis test has received FDA Emergency Use Authorization (EUA) and has been verified by [facility] ([facility]). This test is only authorized for the duration of time that circumstances exist to justify the authorization of the emergency use of in vitro diagnostic tests for the detection of SARS-CoV-2 virus and/or diagnosis of COVID-19 infection under section 564(b)(1) of the Act, 21 U.S.C. 360bbb-3(b)(1), unless the authorization is terminated or revoked sooner. [facility] is certified under CLIA-88 as qualified to perform high complexity testing. Testing is performed in the [facility] laboratories located at [address] [place] [address]. LMPon 10-29-2020 Last menstrual period start date 31Aug2020 -[facility] herst Work Phone: No Panel Informationon 10-29 Name RASHEEDA NICHOLE Pathologist: MAGDA LIMON MD Date of Procedure: 10/29/2020 Date Received: 10/29/2020 Date Reported 11/03/2020 Submitting Physician: SALIMA GILMAN M.D. Location: [facility] Other External # FINAL DIAGNOSIS A. SKIN, RIGHT [...] entirely submitted in one cassette. [facility] rcc/11/02/2020 [facility] Department of Pathology [address] [place] [address] Work Phone: [facility] Work Phone: Mamm - Screening Mammogram w / Tomosynthesison 06-09-2020 MG Breast screening Interpreted by: THERON KNOTTD108/10/19 09:10MRN: [id number] Name: DIONISIORASHEEDA NUNES STUDY:DIGITAL SCREENING BILATERAL MAMMOGRAM WITH BREAST TOMOSYNTHESIS [...] signed by: THERON VEE 06/09/20 09:10 Normal [facility] Work Phone: Comment on above: ORDER REVISED TO A D IGITAL MAMM SCREENING W/ MASON BY RADIOLOGIST; Original Order Number: [id number] GC + Chlamydia By Amplified Detectionon 01-05-2020 C. trachomatis rRNA REYNALDO+probe Ql (Unsp spec) Negative Negative [facility] A2100 DO Work Phone: N. gonorrhoeae rRNA REYNALDO+probe Ql (Unsp spec) Negative Negative [facility] A2100 DO Work Phone: Comment on above: SOURCE: Genital Otheron 01-05-2020 0 [facility] A2100 DO Work Phone: Comment on above: Interpretation of th e Bronwyn Score0-3.....Normal vaginal microbiota4-6.....Intermediate results7-10....Bacterial vaginosis ABSENT [facility] A2100 DO Work Phone: Negative Negative [facility] A2100 DO Work Phone: Comment on above: SOURCE: Genital Urinalysison 01-05-2020 Yeast LM Ql (Urine sed) ABSENT [facility] A2100 DO Work Phone: Otheron 07-25-2019 Clam IgE Qn (S) <0.35 <0.35 [facility] herst Work Phone: Comment on above: SEE IMMUNOCAP INTERP .IGE Codfish IgE Qn (S) <0.35 <0.35 [facility] Work Phone: Comment on above: SEE IMMUNOCAP INTERP .IGE Dorset IgE Qn (S) <0.35 <0.35 [facility] herst Work Phone: Comment on above: SEE IMMUNOCAP INTERP .IGE Egg white IgE Qn (S) <0.35 <0.35 [facility] herst Work Phone: Comment on above: SEE IMMUNOCAP INTERP .IGE Lobster IgE Qn (S) 0.56 {KU/L} Abnormal <0.35 [facility] herst Work Phone: Comment on above: SEE IMMUNOCAP INTERP .IGE Milk IgE Qn (S) <0.35 <0.35 [facility] Work Phone: Comment on above: SEE IMMUNOCAP INTERP .IGE Peanut IgE Qn (S) <0.35 <0.35 [facility] Work Phone: Comment on above: SEE IMMUNOCAP INTERP .IGE Derby IgE Qn (S) <0.35 <0.35 [facility] Work Phone: Comment on above: SEE IMMUNOCAP INTERP .IGE Scallop IgE Qn (S) <0.35 <0.35 [facility] Work Phone: Comment on above: SEE IMMUNOCAP INTERP .IGE Sesame Seed IgE Qn (S) <0.35 <0.35 [facility] Work Phone: Comment on above: SEE IMMUNOCAP INTERP .IGE Shrimp IgE Qn (S) 0.40 {KU/L} Abnormal <0.35 [facility] Work Phone: Comment on above: SEE IMMUNOCAP INTERP .IGE Soybean IgE Qn (S) <0.35 <0.35 [facility] Work Phone: Comment on above: SEE IMMUNOCAP INTERP .IGE Hugo IgE Qn (S) <0.35 <0.35 [facility] Work Phone: Comment on above: SEE IMMUNOCAP INTERP .IGE Wheat IgE Qn (S) <0.35 <0.35 [facility] Work Phone: Comment on above: SEE IMMUNOCAP INTERP .IGE SEE COMMENT [facility] Work Phone: Comment on above: REFERENCE RANGE (IMM UNOCAP) IGE KU/L CLASS INTERPRETATION < 0.35 0 BELOW DETECTION 0.35- 0.69 1 LOW POSITIVE 0.70- 3.49 2 MODERATE POSITIVE 3.50- 17.49 3 HIGH MPEABYGI51.50- 49 4 VERY HIGH IQCBWTNL64 - 99 5 VERY HIGH POSITIVE >100 6 VERY HIGH POSITIVE Culture, Throaton 10-30-2018 Culture, Throat OR DERED BY: SARKIS ROGERS SOURCE: Throat Throat COLLECTED: 10/30/18 15:03 ANTIBIOTICS AT KIP.: RECEIVED : 10/30/18 19:13 Culture, Throat FINAL 11/01/18 08:10 Usual respiratory jessica in 48 hours Normal [facility] Comment on above: Performed By: #### C XTHR #### [facility] [address] [place] [id number] Vital Signs Date Time Vital Sign Value Performing Clinician Yamile rojas 04-18-2024 09:15-0400 Blood Pressure Location [facility] 04-18-2024 09:15-0400 Diastolic blood pressure 62 mm[Hg] [facility] 04-18-2024 09:15-0400 Heart rate 69 /min [facility] 04-18-2024 09:15-0400 SaO2% (BldA) [Mass fraction] 97 % [facility] 04-18-2024 09:15-0400 Systolic blood pressure 112 mm[Hg] [facility] 04-03-2024 13:44-0400 Body height 152.4 cm Federico Wing MD Work Phone: [facility] 04-03-2024 13:44-0400 Body mass index (BMI) [Ratio] 39.45 kg/m2 Federico Wing MD Work Phone: [facility] 04-03-2024 13:44-0400 Body weight 91.63 kg Federico Wing MD Work Phone: [facility] Comment on above: wearing ortho boot 04-03-2024 13:44-0400 Diastolic blood pressure 60 mm[Hg] Federico Wing MD Work Phone: [facility] 04-03-2024 13:44-0400 Heart rate 66 /min Federico Wing MD Work Phone: [facility] 04-03-2024 13:44-0400 Systolic blood pressure 112 mm[Hg] Federico Wing MD Work Phone: [facility] 01-18-2024 11:42-0400 Blood Pressure Location [facility] 01-18-2024 11:42-0400 Diastolic blood pressure 66 mm[Hg] [facility] 01-18-2024 11:42-0400 Heart rate 61 /min [facility] 01-18-2024 11:42-0400 SaO2% (BldA) [Mass fraction] 97 % [facility] 01-18-2024 11:42-0400 Systolic blood pressure 118 mm[Hg] [facility] 11-12-2023 23:00-0400 Diastolic blood pressure 70 mm[Hg] Atilio Beltran [facility] 11-12-2023 23:00-0400 Heart rate 58 /min Atilio Beltran [facility] 11-12-2023 23:00-0400 Mean blood pressure 90 mm[Hg] Atilio Beltran [facility] 11-12-2023 23:00-0400 Respiratory rate 8 /min Atilio Beltran [facility] 11-12-2023 23:00-0400 SaO2% (BldA) [Mass fraction] 96 % Atilio Beltran [facility] 11-12-2023 23:00-0400 Systolic blood pressure 131 mm[Hg] Aitlio Beltran [facility] 11-12-2023 22:00-0400 Diastolic blood pressure 60 mm[Hg] Atilio Devin [facility] 11-12-2023 22:00-0400 Heart rate 64 /min Atilio Devin [facility] 11-12-2023 22:00-0400 Mean blood pressure 79 mm[Hg] Atilio Devin [facility] 11-12-2023 22:00-0400 Respiratory rate 25 /min Atilio Devin [facility] 11-12-2023 22:00-0400 SaO2% (BldA) [Mass fraction] 97 % Atilio Devin [facility] 11-12-2023 22:00-0400 Systolic blood pressure 117 mm[Hg] Atilio Devin [facility] 11-12-2023 21:00-0400 Diastolic blood pressure 72 mm[Hg] Atilio Devin [facility] 11-12-2023 21:00-0400 Mean blood pressure 87 mm[Hg] Atilio Devin [facility] 11-12-2023 21:00-0400 Respiratory rate 20 /min Atilio Devin [facility] 11-12-2023 21:00-0400 SaO2% (BldA) [Mass fraction] 99 % Atilio Devin [facility] 11-12-2023 21:00-0400 Systolic blood pressure 118 mm[Hg] Atilio Devin [facility] 11-12-2023 20:41-0400 Body temperature 97.7 [degF] Atilio Devin [facility] 11-12-2023 20:41-0400 Heart rate 63 /min Atilio Devin [facility] 11-12-2023 20:41-0400 Respiratory rate 16 /min Atilio Beltran [facility] 2023 16:45-0400 Blood Pressure Location [facility] 2023 16:45-0400 Diastolic blood pressure 60 mm[Hg] [facility] 2023 16:45-0400 Heart rate 64 /min [facility] 2023 16:45-0400 SaO2% (BldA) [Mass fraction] 96 % [facility] 2023 16:45-0400 Systolic blood pressure 116 mm[Hg] [facility] 09-24-2022 04:19-0400 Diastolic blood pressure 58 mm[Hg] Vincent Maxim [facility] 09-24-2022 04:19-0400 Heart rate 60 /min Vincent Maxim [facility] 09-24-2022 04:19-0400 Respiratory rate 18 /min Vincent Maxim [facility] 09-24-2022 04:19-0400 SaO2% (BldA) [Mass fraction] 96 % Vincent Maxim [facility] 09-24-2022 04:19-0400 Systolic blood pressure 114 mm[Hg] Vincent Maxim [facility] 09-24-2022 02:53-0400 Diastolic blood pressure 56 mm[Hg] Vincent Maxim [facility] 09-24-2022 02:53-0400 Heart rate 68 /min Vincent Maxim [facility] 09-24-2022 02:53-0400 Mean blood pressure 70 mm[Hg] Vincent Maxim [facility] 09-24-2022 02:53-0400 Respiratory rate 15 /min Vincent Maxim [facility] 09-24-2022 02:53-0400 SaO2% (BldA) [Mass fraction] 92 % Vincent Maxim [facility] 09-24-2022 02:53-0400 Systolic blood pressure 99 mm[Hg] Vincent Maxim [facility] 09-24-2022 02:19-0400 Blood Pressure Location Vincent Maxim [facility] 09-24-2022 02:19-0400 Diastolic blood pressure 52 mm[Hg] Vincent Maxim [facility] 09-24-2022 02:19-0400 Heart rate 75 /min Vincent Maxim [facility] 09-24-2022 02:19-0400 Mean blood pressure 68 mm[Hg] Vincent Maxim [facility] 09-24-2022 02:19-0400 Respiratory rate 18 /min Vincent Maxim [facility] 09-24-2022 02:19-0400 SaO2% (BldA) [Mass fraction] 95 % Vincent Maxim [facility] 09-24-2022 02:19-0400 Systolic blood pressure 101 mm[Hg] Vincent Maxim [facility] 09-24-2022 01:07-0400 Blood Pressure Location Vincent Maxim [facility] 09-24-2022 01:07-0400 Mean blood pressure 72 mm[Hg] Vincent Maxim [facility] 09-23-2022 22:20-0400 Respiratory rate 16 /min Vincent Maxim [facility] 09-20-2022 12:24-0400 Body mass index (BMI) [Ratio] 36.48 kg/m2 Kayla Sonya Dent [facility] 305 DO Work Phone: 09-20-2022 12:24-0400 Body surface area Derived from formula 1.81 m2 Kayla Sonya Dent [facility] 305 DO Work Phone: 09-20-2022 12:24-0400 Body weight 84.73 kg Kayla Dent [facility] 305 DO Work Phone: 09-20-2022 12:24-0400 Diastolic blood pressure 72 mm[Hg] Kayla Sonya [facility] 305 DO Work Phone: 09-20-2022 12:24-0400 Heart rate 61 /min Kayla Sonya Dent [facility] 305 DO Work Phone: 09-20-2022 12:24-0400 Systolic blood pressure 132 mm[Hg] Kayla Sonya Dent [facility] 305 DO Work Phone: 08-29-2022 10:03-0400 Heart rate 64 /min Kayla Sonya Dent [facility] 300 DO Work Phone: 08-25-2022 14:17-0500 Body temperature 97.88 [degF] Kayla Dent Other Phone: [facility] 08-25-2022 14:17-0500 Diastolic blood pressure 63 mm[Hg] Kayla Dent Other Phone: [facility] 08-25-2022 14:17-0500 Heart rate 69 /min Kayla Dent Other Phone: [facility] 08-25-2022 14:17-0500 Respiratory rate 16 /min Kayla Dent Other Phone: [facility] 08-25-2022 14:17-0500 SaO2% (BldA) [Mass fraction] 93 % Kayla Dent Other Phone: [facility] 08-25-2022 14:17-0500 Systolic blood pressure 120 mm[Hg] Kayla Dent Other Phone: [facility] 08-18-2022 10:45-0500 Body height 152.4 cm Kayla Dent [facility] 300 DO Work Phone: 08-18-2022 10:45-0500 Body mass index (BMI) [Ratio] 36.13 kg/m2 Kayla Dent [facility] 300 DO Work Phone: 08-18-2022 10:45-0500 Body surface area Derived from formula 1.81 m2 Kayla Dent [facility] 300 DO Work Phone: 08-18-2022 10:45-0500 Body weight 83.92 kg Kayla Dent [facility] 300 DO Work Phone: 08-18-2022 10:45-0500 Diastolic blood pressure 80 mm[Hg] Kayla Dent [facility] 300 DO Work Phone: 08-18-2022 10:45-0500 Heart rate 50 /min Kayla Dent [facility] 300 DO Work Phone: 08-18-2022 10:45-0500 Systolic blood pressure 134 mm[Hg] Kayla Dent [facility] 300 DO Work Phone: 08-07-2022 09:06-0500 Blood Pressure Location Luna DICKINSON [facility] 08-07-2022 09:06-0500 Diastolic blood pressure 74 mm[Hg] Luna DICKINSON [facility] 08-07-2022 09:06-0500 Heart rate 66 /min Luna DICKINSON [facility] 08-07-2022 09:06-0500 SaO2% (BldA) [Mass fraction] 95 % Luna DICKINSON [facility] 08-07-2022 09:06-0500 Systolic blood pressure 118 mm[Hg] Luna DICKINSON [facility] 07-12-2022 15:48-0500 Blood Pressure Location Skip Gonzalez [facility] 07-12-2022 15:48-0500 Diastolic blood pressure 70 mm[Hg] Skip Christofferson [facility] 07-12-2022 15:48-0500 Heart rate 69 /min Skip Christofferson [facility] 07-12-2022 15:48-0500 Respiratory rate 18 /min Skip Christofferson [facility] 07-12-2022 15:48-0500 SaO2% (BldA) [Mass fraction] 98 % Skip Christofferson [facility] 07-12-2022 15:48-0500 Systolic blood pressure 112 mm[Hg] Skip Christofferson [facility] 12-21-2021 10:04-0400 Body height 152.4 cm Salima Gilman Work Phone: [facility] 127 DO Work Phone: 12-21-2021 10:04-0400 Body mass index (BMI) [Ratio] 36.72 kg/m2 Salima Gilman Work Phone: [facility] 127 DO Work Phone: 12-21-2021 10:04-0400 Body surface area Derived from formula 1.82 m2 Salima Gilman Work Phone: [facility] 127 DO Work Phone: 12-21-2021 10:04-0400 Body weight 85.28 kg Salima Gilman Work Phone: [facility] 127 DO Work Phone: 12-21-2021 10:04-0400 Diastolic blood pressure 70 mm[Hg] Salima Spenceese Work Phone: [facility] 127 DO Work Phone: 12-21-2021 10:04-0400 Heart rate 68 /min Salima Spenceese Work Phone: [facility] 127 DO Work Phone: 12-21-2021 10:04-0400 Systolic blood pressure 112 mm[Hg] Salima Gilman Work Phone: [facility] 127 DO Work Phone: 11-22-2021 15:34-0400 Body height 152.4 cm Salima Gilman Work Phone: [facility] Work Phone: 11-22-2021 15:34-0400 Body mass index (BMI) [Ratio] 36.72 kg/m2 Salima Gilman Work Phone: [facility] Work Phone: 11-22-2021 15:34-0400 Body surface area Derived from formula 1.82 m2 Salima Spenceese Work Phone: [facility] Work Phone: 11-22-2021 15:34-0400 Body temperature 97 [degF] Salima Spenceese Work Phone: [facility] Work Phone: 11-22-2021 15:34-0400 Body weight 85.28 kg Salima Spenceese Work Phone: [facility] Work Phone: 11-22-2021 15:34-0400 Diastolic blood pressure 73 mm[Hg] Salima Spenceese Work Phone: [facility] Work Phone: 11-22-2021 15:34-0400 Heart rate 66 /min Salima Spenceese Work Phone: [facility] Work Phone: 11-22-2021 15:34-0400 SaO2% (BldA) [Mass fraction] 97 % Salima Spenceese Work Phone: [facility] Work Phone: 11-22-2021 15:34-0400 Systolic blood pressure 112 mm[Hg] Salima Spenceese Work Phone: [facility] Work Phone: 07-12-2021 08:30-0500 Body height 152.4 cm Salima Spenceese Work Phone: [facility] Work Phone: 07-12-2021 08:30-0500 Body mass index (BMI) [Ratio] 36.33 kg/m2 Salima [facility]ese [facility] Work Phone: 07-12-2021 08:30-0500 Body surface area Derived from formula 1.81 m2 Salima Gilman Work Phone: [facility] Work Phone: 07-12-2021 08:30-0500 Body temperature 96.4 [degF] Salima Spenceese Work Phone: [facility] Work Phone: 07-12-2021 08:30-0500 Body weight 84.37 kg Salima Spenceese Work Phone: [facility] Work Phone: 07-12-2021 08:30-0500 Diastolic blood pressure 82 mm[Hg] Salima Spenceese Work Phone: [facility] Work Phone: 07-12-2021 08:30-0500 Heart rate 88 /min Salima Spenceese Work Phone: [facility] Work Phone: 07-12-2021 08:30-0500 Respiratory rate 16 /min Salima Spenceese Work Phone: [facility] Work Phone: 07-12-2021 08:30-0500 SaO2% (BldA) [Mass fraction] 98 % Salima Spenceese Work Phone: [facility] Work Phone: 07-12-2021 08:30-0500 Systolic blood pressure 122 mm[Hg] Salima Spenceese Work Phone: [facility] Work Phone: 06-23-2021 13:19-0500 Body height 152.4 cm Salima Gilman Work Phone: [facility] 127 DO Work Phone: 06-23-2021 13:19-0500 Body mass index (BMI) [Ratio] 35.54 kg/m2 Salima Candelario Kalina Work Phone: [facility] 127 DO Work Phone: 06-23-2021 13:19-0500 Body surface area Derived from formula 1.79 m2 Salima Candelario Kalina Work Phone: [facility] 127 DO Work Phone: 06-23-2021 13:19-0500 Body weight 82.56 kg Salima Candelario Kalina Work Phone: [facility] 127 DO Work Phone: 06-23-2021 13:19-0500 Diastolic blood pressure 78 mm[Hg] Salima Candelario Kalina Work Phone: [facility] 127 DO Work Phone: 06-23-2021 13:19-0500 Heart rate 66 /min Salima Candelario Kalina Work Phone: [facility] 127 DO Work Phone: 06-23-2021 13:19-0500 Systolic blood pressure 120 mm[Hg] Salima Recinosabrese Work Phone: [facility] 127 DO Work Phone: 06-07-2021 09:45-0500 65 1 Salima Kodak Kalina Work Phone: [facility] 127 DO Work Phone: Comment on above: [id number] 05-11-2021 10:30-0500 Diastolic blood pressure 68 mm[Hg] Salima Recinosabrese Work Phone: [facility] 127 DO Work Phone: 05-11-2021 10:30-0500 Systolic blood pressure 126 mm[Hg] Salima Spenceese Work Phone: [facility] 127 DO Work Phone: 05-11-2021 09:53-0500 Body height 152.4 cm Salima Recinosabrese Work Phone: [facility] 127 DO Work Phone: 05-11-2021 09:53-0500 Body mass index (BMI) [Ratio] 35.94 kg/m2 Salima Recinosabrese Work Phone: [facility] 127 DO Work Phone: 05-11-2021 09:53-0500 Body surface area Derived from formula 1.8 m2 Salima Recinosabrese Work Phone: [facility] 127 DO Work Phone: 05-11-2021 09:53-0500 Body weight 83.46 kg Salima Recinosabrese Work Phone: [facility] 127 DO Work Phone: 05-11-2021 09:53-0500 Diastolic blood pressure 82 mm[Hg] Salima Recinosabrese Work Phone: [facility] 127 DO Work Phone: 05-11-2021 09:53-0500 Heart rate 81 /min Salima Recinosabrese Work Phone: [facility] 127 DO Work Phone: 05-11-2021 09:53-0500 Systolic blood pressure 148 mm[Hg] Salimasuresh Recinosabrese Work Phone: [facility] 127 DO Work Phone: 10-29-2020 18:09-0400 Body height 152.4 cm Luna Zacarias PA-C [facility] Work Phone: 10-29-2020 18:09-0400 Body mass index (BMI) [Ratio] 34.76 kg/m2 Lunadominic Ellisdy PA-C [facility] Work Phone: 10-29-2020 18:09-0400 Body surface area Derived from formula 1.78 m2 Lunadominic Ellisdy PA-C [facility] Work Phone: 10-29-2020 18:09-0400 Body temperature 97.5 [degF] Lunadominic Ellisdy PA-C [facility] Work Phone: 10-29-2020 18:09-0400 Body weight 80.74 kg Lunadominic Ellisdy PA-C [facility] Work Phone: 10-29-2020 18:09-0400 Diastolic blood pressure 58 mm[Hg] Lunadominic Ellisdy PA-C [facility] Work Phone: 10-29-2020 18:09-0400 Heart rate 80 /min Lunadominic Ellisdy PA-C [facility] Work Phone: 10-29-2020 18:09-0400 Respiratory rate 16 /min Lunadominic Ellisdy PA-C [facility] Work Phone: 10-29-2020 18:09-0400 SaO2% (BldA) [Mass fraction] 98 % Lunadominic Ellisdy PA-C [facility] Work Phone: 10-29-2020 18:09-0400 Systolic blood pressure 118 mm[Hg] Lunadominic Ellisdy PA-C [facility] Work Phone: 10-29-2020 18:09-0400 3 1 Lunadominic Ellisdy PA-C [facility] Work Phone: Comment on above: Para 10-29-2020 16:09-0400 Body height 152.4 cm Salima Spenceese Work Phone: [facility] Work Phone: 10-29-2020 16:09-0400 Body mass index (BMI) [Ratio] 34.76 kg/m2 Salima Spenceese Work Phone: [facility] Work Phone: 10-29-2020 16:09-0400 Body surface area Derived from formula 1.78 m2 Salima Spenceese Work Phone: [facility] Work Phone: 10-29-2020 16:09-0400 Body temperature 97.5 [degF] Salima Spenceese Work Phone: [facility] Work Phone: 10-29-2020 16:09-0400 Body weight 80.74 kg Salima Spenceese Work Phone: [facility] Work Phone: 10-29-2020 16:09-0400 Diastolic blood pressure 58 mm[Hg] Salima Spenceese Work Phone: [facility] Work Phone: 10-29-2020 16:09-0400 Heart rate 80 /min Salima Spenceese Work Phone: [facility] Work Phone: 10-29-2020 16:09-0400 Respiratory rate 16 /min Salima Gilman Work Phone: [facility] Work Phone: 10-29-2020 16:09-0400 SaO2% (BldA) [Mass fraction] 98 % Salima Gilman Work Phone: [facility] Work Phone: 10-29-2020 16:09-0400 Systolic blood pressure 118 mm[Hg] Salima Gilman Work Phone: [facility] Work Phone: 10-29-2020 16:09-0400 3 1 Salima Gilman Work Phone: [facility] Work Phone: Comment on above: GRAV PARA 09-24-2020 11:19-0400 Body height 152.4 cm Simone Coulter DO [facility] Work Phone: 09-24-2020 11:19-0400 Body mass index (BMI) [Ratio] 30.66 kg/m2 Simone Coulter DO [facility] Work Phone: 09-24-2020 11:19-0400 Body surface area Derived from formula 1.68 m2 Simone Coulter DO [facility] Work Phone: 09-24-2020 11:19-0400 Body temperature 96.8 [degF] Simone Coulter DO [facility] Work Phone: 09-24-2020 11:19-0400 Body weight 71.22 kg Simone Coulter DO [facility] Work Phone: 09-24-2020 11:19-0400 Diastolic blood pressure 64 mm[Hg] Simone Coulter DO [facility] Work Phone: 09-24-2020 11:19-0400 Heart rate 60 /min Simone Coulter DO [facility] Work Phone: 09-24-2020 11:19-0400 Respiratory rate 16 /min Simone Coulter DO [facility] Work Phone: 09-24-2020 11:19-0400 SaO2% (BldA) [Mass fraction] 97 % Simone Coulter DO [facility] Work Phone: 09-24-2020 11:19-0400 Systolic blood pressure 110 mm[Hg] Simone Coulter DO [facility] Work Phone: 09-24-2020 11:19-0400 3 1 Simone Coulter DO [facility] Work Phone: Comment on above: Para 01-12-2020 11:18-0400 BMI (Body Mass Index) 20.89 kg/m2 [facility] Work Phone: 01-12-2020 11:18-0400 Body weight 69.85 kg Priscilla Leahy [facility] DO Work Phone: 01-12-2020 11:18-0400 BP Diastolic 78 mm[Hg] Priscilla Leah[facility] DO Work Phone: 01-12-2020 11:18-0400 BP Systolic 124 mm[Hg] Priscilla Leah[facility] DO Work Phone: 01-12-2020 11:18-0400 BSA (Body Surface Area) 1.91 m2 [facility] DO Work Phone: 01-12-2020 11:18-0400 Height 182.88 cm Priscilla Armond [facility] A2100 DO Work Phone: 01-05-2020 15:57-0400 BMI (Body Mass Index) 28.35 kg/m2 Priscilla Leahy [facility] A[facility] DO Work Phone: 01-05-2020 15:57-0400 Body Temperature 98.4 [degF] Priscilla Leah[facility] DO Work Phone: 01-05-2020 15:57-0400 Body weight 70.31 kg Priscilla Leahy [facility] DO Work Phone: 01-05-2020 15:57-0400 BP Diastolic 60 mm[Hg] Priscilla Leahy [facility] DO Work Phone: 01-05-2020 15:57-0400 BP Systolic 122 mm[Hg] Priscilla Leah[facility] DO Work Phone: 01-05-2020 15:57-0400 BSA (Body Surface Area) 1.72 m2 Priscilla Leahy [facility] DO Work Phone: 01-05-2020 15:57-0400 Height 157.48 cm Priscilla Leahy [facility] DO Work Phone: 01-05-2020 15:57-0400 Pulse (Heart Rate) 75 /min Priscilla Leahy [facility] [facility] A[facility] DO Work Phone: 01-05-2020 15:57-0400 Pulse Oximetry 98 % Priscilla Leahy [facility] A[facility] DO Work Phone: 01-05-2020 15:57-0400 Respiratory Rate 16 /min Priscilla Leahy [facility] A2100 DO Work Phone: 10-15-2019 17:37-0400 BMI (Body Mass Index) 27.34 kg/m2 [facility] Work Phone: 10-15-2019 17:37-0400 Body weight 67.81 kg Christian Montilla [facility] Work Phone: 10-15-2019 17:37-0400 BP Diastolic 70 mm[Hg] [facility] Work Phone: 10-15-2019 17:37-0400 BP Systolic 102 mm[Hg] Christian [facility] Work Phone: 10-15-2019 17:37-0400 BSA (Body Surface Area) 1.69 m2 Christian MANUEL [facility] Work Phone: 10-15-2019 17:37-0400 Height 157.48 cm Christian MANUEL [facility] Work Phone: Encounters Encounter Date Encounter Type Care Provider Facility Start: 07-25-2024 ambulatory DO Amanda Diaz Fac ility:[facility] Start: 04-18-2024 End: 04-18-2024 ambulatory Amanda Diaz Facility[facility] Start: 04-18-2024 End: 04-18-2024 Patient encounter procedure Amanda Diaz [facility] Start: 04-18-2024 End: 04-18-2024 ambulatory DO Amanda Diaz Facility:[facility] Start: 04-18-2024 End: 04-18-2024 Patient encounter procedure Amanda Diaz [facility] [place] Start: 04-03-2024 End: 04-03-2024 Office outpatient visit 40 minutes Federico Wing MD Work Phone: [facility] Comment on above: BMI 39.0-39.9,adult (Primary Dx); High risk medication use; Palpitations; Premature ventricular contractions (PVCs) (VPCs); Tachycardia; Never smoked tobacco; BMI 36.0-36.9,adult Start: 04-03-2024 End: 04-03-2024 ambulatory [facility] Start: 03-14-2024 End: 03-16-2024 ambulatory [facility] Start: 02-15-2024 End: 02-17-2024 ambulatory [facility] Start: 02-08-2024 End: 02-08-2024 ambulatory DO Amanda Diaz Facility:[facility] Start: 02-08-2024 End: 02-08-2024 Patient encounter procedure Amanda Diaz [facility] Start: 01-18-2024 End: 01-18-2024 ambulatory DO Amanda Diaz Facility:[facility] Start: 01-18-2024 End: 01-18-2024 Patient encounter procedure Amanda Diaz [facility] [place] Start: 11-12-2023 End: 11-12-2023 Emergency department patient visit Atilio Beltran [facility] Start: 10-26-2023 End: 10-26-2023 ambulatory JUAN LUIS A PLEASNICK Not Available Start: 10-19-2023 End: 10-19-2023 ambulatory JUAN LUIS A PLEASNICK Not Available Start: 10-12-2023 End: 10-12-2023 ambulatory JUAN LUIS A PLEASNICK Not Available Start: 10-12-2023 End: 10-12-2023 ambulatory DO Amanda Diaz Facility:[facility] Start: 10-12-2023 End: 10-12-2023 Patient encounter procedure Amanda Diaz [facility] Start: 10-10-2023 End: 10-10-2023 ambulatory JUAN LUIS A PLEASNICK Not Available Start: 10-05-2023 End: 10-05-2023 ambulatory JUAN LUIS A PLEASNICK Not Available Start: 10-03-2023 End: 10-03-2023 ambulatory JUAN LUIS A PLEASNICK Not Available Start: 2023 End: 2023 ambulatory DO Amanda Diaz Facility:[facility] Start: 2023 End: 2023 Patient encounter procedure Amanda Diaz [facility] [place] Start: 09-28-2023 End: 09-28-2023 ambulatory JUAN LUIS A PLEASNICK Not Available Start: 09-26-2023 End: 09-26-2023 ambulatory JUAN LUIS A PLEASNICK Not Available Start: 09-21-2023 End: 09-21-2023 ambulatory JUAN LUIS A PLEASNICK Not Available Start: 09-13-2023 End: 09-13-2023 ambulatory JUAN LUIS A PLEASNICK Not Available Start: 07-27-2023 End: 07-27-2023 ambulatory [facility] Start: 06-29-2023 ambulatory DO Amanda Diaz [facility] ity:[facility] Start: 06-29-2023 End: 07-14-2023 Pre-admission assessment Kayla Dent [facility] Start: 04-26-2023 End: 07-25-2023 ambulatory CYNDI CHEW Facility:[facility] Start: 04-26-2023 End: 07-25-2023 Recurring CYNDI CHEW [facility] Start: 04-16-2023 End: 04-16-2023 Office outpatient visit 25 minutes 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 SENIOR FINANCIAL CONSULTANT-PHYSICS AND ASTRONOMY PROFESSOR Work Phone: [facility] Comment on above: High risk medication use (Primary Dx); Palpitations; Premature ventricular contractions (PVCs) (VPCs); Tachycardia Start: 04-16-2023 End: 04-16-2023 [facility]ulatory [facility] Start: 04-10-2023 End: 04-11-2023 ambulatory JOSELO CHRISTIANALEC [facility] Start: 04-10-2023 End: 04-10-2023 Subsequent hospital visit by physician Marty James [facility] [place] Comment on above: Palpitations Start: 03-30-2023 End: 03-30-2023 ambulatory CYNDI CHEW Facility:[facility] Start: 03-30-2023 End: 03-30-2023 Patient encounter procedure CYNDI CHEW [facility] Start: 03-05-2023 Patient encounter procedure Kayla Dent [facility] 300 DO Work Phone: Start: 03-05-[address] Kayla Chavez acility: Start: 03-01-2023 [facility]UDIT [facility] [facility] Work Phone: Start: 11-08-2022 ambulatory MD FEDERICO WING Fa cility: Start: 10-13-2022 Chart Update Kayla Dent [facility] [place] [facility] Work Phone: Start: 10-10-[address] Kayla Chavez acility:[id number] Start: 09-23-2022 End: 09-24-2022 Emergency department patient visit Vincent Pan [facility] Start: 09-22-[address] Kayla Chavez acility: Start: 09-22-2022 End: 09-22-2022 Patient encounter procedure Federico Wing [facility] Start: 09-21-[address] Kayla Chavez acility: Start: 09-21-2022 End: 09-21-2022 Patient encounter procedure Federico Wing [facility] Start: 09-20-2022 ambulatory MD FEDERICO WING Fa cility: Start: 09-20-2022 Office outpatient vi sit 40 minutes Kayla Dent [facility] 305 DO Work Phone: Start: 09-01-2022 ambulatory Federico Wing Facility:[id number] Start: 08-29-2022 EKG, Provider: [facility] ROXANA EMAIL ADMINISTRATOR 1,[id number], Status: Pen, Time: 10:00 AM Kayla Dent [facility] 300 DO Work Phone: Start: 08-29-2022 Patient encounter procedure Kayla [facility] 300 DO Work Phone: Start: 08-29-2022 ambulatory MD FEDERICO WING Fa cility: Start: 08-28-2022 Patient encounter procedure Kayla [facility] 300 DO Work Phone: Start: 08-28-2022 ambulatory MD FEDERICO WING Fa cility: Start: 08-25-2022 AUDIT Kayla Dent [facility] [place] [facility] [place] Work Phone: Start: 08-23-2022 End: 08-25-2022 Evaluation and management of inpatient Skip Bridgettbecker Facility:[id number] Start: 08-23-2022 AUDIT Kayla Dent [facility] [place] [facility] Work Phone: Start: 08-22-2022 End: 08-25-2022 Evaluation and management of inpatient Skip Platzbecker [place] [facility] Cardio ICU [id number] Start: 08-18-2022 Office consultation new/estab patient 80 min Kayla Dent [facility] 300 DO Work Phone: Start: 08-18-[address] Skip Gonzalez Facility:[id number] Start: 08-07-2022 End: 08-07-2022 Patient encounter procedure Luna DICKINSON [facility] Start: 07-12-2022 End: 07-12-2022 Patient encounter procedure Skip Gonzalez [facility] Start: 06-29-2022 End: 06-29-2022 ambulatory CAMPBELL HERNANDEZ Facility:[id number] Start: 06-27-2022 End: 06-27-2022 Patient encounter procedure Kayla Cheryl Olena [facility] Start: 06-26-2022 End: 07-08-2022 Pre-admission assessment Kayla Dent [facility] Start: 03-28-2022 End: 03-28-2022 Patient encounter procedure Kayla Cheryl Olena [facility] Start: 12-28-2021 Chart Update Salima garcia Work Phone: [facility] Work Phone: Start: 12-28-[address] Salima Gilman Facility:[id number] Start: 12-21-2021 Office outpatient vi sit 15 minutes Salima Gilman Work Phone: [facility] 250 DO Work Phone: Start: 12-21-2021 Patient encounter procedure Salima Gilman Work Phone: [facility] 127 DO Work Phone: Start: 11-30-[address] Salima Gilman Facility:[id number] Start: 11-22-2021 Office outpatient vi sit 10 minutes Salima Gilman Work Phone: [facility] Work Phone: Start: 11-22-2021 Patient encounter procedure [facility] Start: 08-18-2021 Rx Change [facility]ima garcia [facility] Start: 07-12-2021 Office outpatient vi sit 15 minutes Salima Gil[facility]: Start: 06-23-2021 FUV, Provider: Samara Roe, Status: Pen, Time: 1:15 PM Salima Gilman Work Phone: [facility] 127 DO Work Phone: Start: 06-23-2021 Patient encounter procedure Salima Gilman Work Phone: [facility] 127 DO Work Phone: Start: 06-22-2021 Chart Update Salima garcia Work Phone: [facility] 127 DO Work Phone: Start: 06-17-2021 Chart Update Salima garcia Work Phone: [facility] Work Phone: Start: 06-14-2021 End: 09-12-2021 Patient encounter procedure SALIMA GILMAN [facility] Start: 06-07-2021 Patient encounter procedure Salima Gilman Work Phone: [facility] 127 DO Work Phone: Start: 05-23-2021 Chart Update Salima garcai Work Phone: [facility] 127 DO Work Phone: Start: 05-11-2021 Office outpatient ne w 45 minutes Salima Gilman Work Phone: [facility] 127 DO Work Phone: Start: 05-03-2021 Patient encounter procedure Salima Gilman Work Phone: [facility] [place] Work Phone: Start: 04-27-2021 AUDIT Salima Recinos abrese Work Phone: [facility] Work Phone: Start: 04-22-2021 [facility], Provider: Simone Coulter, Status: Pen, Time: 8:00 AM Salima Gilman Work Phone: [facility] [place] Work Phone: Start: 04-21-2021 Chart Update Salima Recinos abrese Work Phone: [facility] [place] Work Phone: Start: 12-09-2020 Patient encounter procedure Salima Gilman Work Phone: [facility] [place] Work Phone: Start: 11-23-2020 AUDIT Salima Recinos abrese Work Phone: [facility] Work Phone: Start: 10-29-2020 Patient encounter procedure Luna Zacarias PA-C [facility] Work Phone: Start: 10-14-2020 Patient encounter procedure Simone Coulter DO [facility] [place] Work Phone: Start: 09-24-2020 Patient encounter procedure Simone Coulter DO [facility] [place] Work Phone: Start: 09-16-2020 Patient encounter procedure Simone Coulter DO [facility] [place] Work Phone: Start: 08-17-2020 Patient encounter procedure Simone Coulter DO [facility] [place] Work Phone: Start: 08-09-2020 Patient encounter procedure Simone Coulter DO [facility] [place] Work Phone: Start: 06-28-2020 Patient encounter procedure Simone Coulter DO [facility] [place] Work Phone: Start: 06-15-2020 Patient encounter procedure Simone Coulter DO [facility] [place] Work Phone: Start: 05-05-2020 Patient encounter procedure Priscilla Leahy [facility] 6115 Work Phone: Start: 04-30-2020 Patient encounter procedure Priscilla Leahy [facility] 6115 Work Phone: Start: 04-26-2020 Patient encounter procedure Priscilla Leahy [facility] 6195 Work Phone: Start: 02-16-2020 Patient encounter procedure Priscilla Leahy [facility] 6115 Work Phone: Start: 01-21-2020 Patient encounter procedure Priscilla Leahy [facility] 6115 Work Phone: Start: 01-16-2020 Patient encounter procedure Priscilla Leahy [facility] 3421 Work Phone: Start: 01-12-2020 Patient encounter procedure Priscilla Leahy [facility] 1434 Work Phone: Start: 01-05-2020 Patient encounter procedure Priscilla Leahy GE-Ejfnyocatf-Bxueoj ke A2100 DO Work Phone: Start: 10-27-2019 Patient encounter procedure Priscilla Leahy GI-Mdseofylac-Vgjyln ke A2100 DO Work Phone: Start: 10-15-2019 [facility] Work Phone: Start: 08-25-2019 Patient encounter procedure Christian Benito [facility] Work Phone: Start: 06-30-2019 Patient encounter procedure Salima Kalina [facility] Work Phone: Start: 05-24-2019 Patient encounter procedure Salima Kalina [facility] Work Phone: Cancer cervix - screening done [facility]one [facility]ter [facility] Work Phone: Comment on above: 05/24/19-WNL, HPV NEG ; Encounter for gynecological examination (general) (routine) without abnormal findings Salima Gilman Work Phone: [facility] [place] Phone: Comment on above: 05/24/19-WNL, HPV NEG ; Mammography normal Salima perry Work Phone: [facility] Work Phone: Comment on above: 05/2020-cat 112/04/08 019-CAT 1; Procedures Date Procedure Procedure Detail Performing Clinician Start: 04-03-2024 Ecg routine ecg w/le ast 12 lds w/i&r Federico Wing MD Work Phone: Start: 07-27-2023 ECG 12-LEAD EVIE Reyes Start: 07-27-2023 FOLLOW UP IN CARDIOLOGY EVIE AGUDELO Start: 04-16-2023 Ecg routine ecg w/le ast 12 lds w/i&r 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 SENIOR FINANCIAL CONSULTANT-PHYSICS AND ASTRONOMY PROFESSOR Work Phone: Start: 04-10-2023 LEGACY HOLTER OR ASHWIN NT ASSOCIATE VETERINARIAN JOSELO DEANECHRIS Start: 04-10-2023 Xtrnl pt activtd ecg dwnld w/r&i 30 days Joselo Diaz Sravan SENIOR FINANCIAL CONSULTANT-PHYSICS AND ASTRONOMY PROFESSOR Work Phone: Start: 08-25-2022 End: 08-25-2022 EKG [...] Assay of thyroid stimulating hormone tsh Christian Sherlock Start: 06-30-2019 Scallop, IgE, IC Hienf donaldo Gilman Start: 06-30-2019 Shrimp, IgE, IC Jake Gilman Start: 05-24-2019 Microscopic observat ion [Identifier] in Cervix by Cyto stain Holter Arthrodesis of ankle Amanda Diaz Bilateral tubal ligation Mariposa Gilman Comment [...] Author Start: 05-17-2026 Lipid panel Lipid Panel [facility] Start: 10-06-2024 End: 10-06-2024 Patient encounter procedure 10/06/2024 8:45 AM EDT Office Visit [facility] Medical Office Building [address] [phone] Fedreico Wing MD [address] [address] [facility] Office [facility] Start: 02-17-2024 COVID-19 Vaccine ( season) COVID-19 Vaccine ( season) [facility] Start: 02-17-2024 Influenza vaccination Influenza Vacc ine (#1) [facility] Start: 07-16-2023 End: 07-16-2023 Patient encounter procedure 07/16/2023 11:00 AM EST Office Visit [address] [id number] Federico Wing MD [address] [facility] [place] [address] [facility] Start: 05-14-2023 FUV, Provider: Federico Wing, Status: Pen, Time: 8:45 AM FUV, Provider: Federico Wing, Status: Pen, Time: 8:45 AM [facility] 320 DO Work Phone: Start: 05-14-2023 End: 05-14-2023 Patient encounter procedure 05/14/2023 8:45 AM EST Office Visit [address] [place] [id number] Federico Wing MD [address] [facility] Office [address], [address] [place] [address] [facility] Start: 04-16-2023 End: 04-16-2023 Patient encounter procedure 04/16/2023 1:00 PM EDT Office Visit [facility] [address] [facility] [place] [place] [address] 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, SENIOR FINANCIAL CONSULTANT-PHYSICS AND ASTRONOMY PROFESSOR [address] [facility] [address] [place] [address] [facility] Start: 03-05-2023 EVENT GRACY, Provider : LEON SCHMIDT EMAIL ADMINISTRATOR 1,[id number], Status: Pen, Time: 3:00 PM EVENT GRACY, Provider: LEON [id number] EMAIL ADMINISTRATOR 1,[id number], Status: Pen, Time: 3:00 PM [facility] 320 DO Work Phone: Start: 02-16-2023 Influenza vaccination Influenza Vacc ine (#1) [facility] Start: 12-28-2022 Screening for malignant neoplasm of breast Mammogram [facility] Start: 11-08-2022 KARAN, Provider : Federico Wing, Status: Pen, Time: 11:45 AM KARAN, Provider: Federico Wing, Status: Pen, Time: 11:[address] [facility] Work Phone: Start: 09-20-2022 FUVHOSP, Provider: Federico Wing, Status: Pen, Time: 11:45 AM [facility], Provider: Federico Wing, Status: Pen, Time: 11:[address] [facility] Work Phone: Start: 09-20-2022 Patient encounter procedure [facility] [place] Start: 09-01-2022 [facility], Provider: Federico Wing, Status: Pen, Time: 9:00 AM [facility], Provider: Federico Wing, Status: Pen, Time: 9:00 AM [facility] 300 DO Work Phone: Start: 08-29-2022 EKG, Provider: LEON SCHMIDT EMAIL ADMINISTRATOR 1,[id number], Status: Pen, Time: 10:00 AM EKG, Provider: LEON SCHMIDT EMAIL ADMINISTRATOR 1,[id number], Status: Pen, Time: 10:00 AM [facility] [place] Work [facility]: Start: 08-29-2022 Patient encounter procedure [facility] [place] Start: 08-28-2022 EKG, Provider: LEON SCHMIDT EMAIL ADMINISTRATOR 1,[id number], Status: Pen, Time: 10:00 AM EKG, Provider: LEON SCHMIDT EMAIL ADMINISTRATOR 1,[id number], Status: Pen, Time: 10:00 AM [facility] [place] Work Phone: Start: 08-28-2022 Patient encounter procedure [facility] [place] Start: 08-25-2022 Arrhythmia Arrhythmia Meek e: 25-Aug-2022 [facility] Start: 08-24-2022 Arrhythmia Arrhythmia Meek e: 24-Aug-2022 [facility] Start: 08-22-2022 Chest pain Chest pain Meek e: 22-Aug-2022 [facility] Start: 08-14-2022 Screening for malignant neoplasm of colon [facility] Start: 05-24-2022 Screening for malignant neoplasm of cervix [facility] Start: 12-21-2021 FUV, Provider: Samara Roe, Status: Pen, Time: 9:45 AM FUV, Provider: Samara Roe, Status: Pen, Time: 9:45 AM [facility] 127 DO Work Phone: Start: 09-30-2021 COVID-19 Vaccine (2 - Booster for Chioma series) COVID-19 Vaccine (2 - Booster for Chioma series) [facility] Start: 06-23-2021 FUV, Provider: Samara Roe, Status: Pen, Time: 1:15 PM FUV, Provider: Samara Roe, Status: Pen, Time: 1:15 PM [facility] 127 DO Work Phone: Start: 06-16-2021 FUV, Provider: Samara Roe, Status: Pen, Time: 1:00 PM FUV, Provider: Samara Roe, Status: Pen, Time: 1:00 PM [facility] 127 DO Work Phone: Start: 06-07-2021 [facility] 48, Provider: LEON GREENWOOD EMAIL ADMINISTRATOR 1,[id number], Status: Pen, Time: 11:00 AM [facility] 48, Provider: LEON GREENWOOD EMAIL ADMINISTRATOR 1,[id number], Status: Pen, Time: 11:00 AM [facility] 127 DO Work Phone: Start: 06-07-2021 STRESS ESTELLE, Provider : [facility] NUCLEAR 01,[id number], Status: Pen, Time: 10:30 AM [facility], Provider: [facility] NUCLEAR 01,[id number], Status: Pen, Time: 10:30 AM [facility] 127 DO Work Phone: Start: 06-07-2021 ECHO, Provider: [facility] ULTRASOUND 01,[id number], Status: Pen, Time: 9:45 AM ECHO, Provider: [facility] ULTRASOUND 01,[id number], Status: Pen, Time: 9:45 AM [facility] Work Phone: Start: 05-11-2021 NPVRFRL, Provider: Samara Roe, Status: Pen, Time: 9:30 AM NPV[facility]RL, Provider: Samara Roe, Status: Pen, Time: 9:30 AM [facility] [place] Work Phone: Start: 05-11-2021 NPVRFRL, Provider: Enrrique Porter, Status: Pen, Time: 9:15 AM N[facility]RL, Provider: Enrrique Porter, Status: Pen, Time: 9:15 AM [facility] Work Phone: Start: 05-10-2021 FUV, Provider: Salima Gilman, Status: Pen, Time: 8:45 AM FUV, Provider: Salima Gilman, Status: Pen, Time: 8:45 AM [facility] Work Phone: Start: 05-03-2021 POV, Provider: Simone Coulter, Status: Pen, Time: 10:15 AM POV, Provider: Simone Coulter, Status: Pen, Time: 10:15 AM [facility] [place] Work Phone: Start: 04-12-2021 POV, Provider: Simone Coulter, Status: Pen, Time: 9:00 AM POV, Provider: Simone Coulter, Status: Pen, Time: 9:00 AM [facility] [facility] [place] Work Phone: Start: 04-01-2021 [facility], Provider: Simone Coulter, Status: Pen, Time: 7:30 AM [facility], Provider: Simone Coulter, Status: Pen, Time: 7:30 AM [facility] [facility] [place] Work Phone: Start: 12-09-2020 FUV, Provider: Simone Coulter, Status: Pen, Time: 8:00 AM FUV, Provider: Simone Coulter, Status: Pen, Time: 8:00 AM [facility] Work Phone: Start: 2018 Zoster Vaccines (1 o f 2) Zoster Vaccines (1 of 2) [facility] Start: 1990 DTaP/Tdap/Td Vaccine s (1 - Tdap) DTaP/Tdap/Td Vaccines (1 - Tdap) [facility] Start: 1989 Screening for malignant neoplasm of cervix HPV/Cotest [facility] Start: 10-03-1987 Hepatitis B Vaccines (1 of 3 - 19+ 3-dose series) Hepatitis B Vaccines (1 of 3 - 19+ 3-dose series) [facility] Start: 1986 Diabetes mellitus screening Diabetes Screening [facility] Start: 1986 Hepatitis C screening Hepatitis C Sc reening [facility] Start: 1974 Pneumococcal Vaccine : Pediatrics (0 to 5 Years) and At-Risk Patients (6 to 64 Years) (1 - PCV) Pneumococcal Vaccine: Pediatrics (0 to 5 Years) and At-Risk Patients (6 to 64 Years) (1 - PCV) [facility] Start: 1969 MMR Vaccines (1 of 1 - Standard series) MMR Vaccines (1 of 1 - Standard series) [facility] Start: 1968 Hepatitis B Vaccines (1 of 3 - 3-dose series) Hepatitis B Vaccines (1 of 3 - 3-dose series) [facility] Start: 1968 HIV screening HIV Screening [facility] Start: 1968 Screening for malignant neoplasm of colon [facility] Start: 1968 Yearly Adult Physical Yearly Adult P [facility] Chest pain Chest pain [facility] ECG 12 Lead ECG 12 Lead ECG Routine High risk medication use Palpitations Premature ventricular contractions (PVCs) (VPCs) 04/16/2023 3:53 PM EDT [facility] Service Area Work Phone: End: 04-10-2023 Holter monitor study [facility] Area Work Phone: Comment on above: Once for 1 Occurrenc es starting 04/10/2023 until 04/10/2023 [facility] Work Phone: NEGATED: Highlighted row has been ruled out! Planned Goals not documented [facility] Work Phone: Immunizations Immunization Date Immunization Notes Care Provider Wendy wei 08-05-2021 Chioma COVID-19 Vaccine 0.5 ML Intramuscular Suspension Salima Gilman Work Phone: [facility] [place] 06-29-2021 Covid-19 Non-us Vaccine, Product Unknown 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 SENIOR FINANCIAL CONSULTANT-PHYSICS AND ASTRONOMY PROFESSOR Work Phone: [facility] Work Phone: NEGATED: Highlighted row has not occurred!04-18-2024 influenza virus vaccine, unspecified formulation [facility] [place] Payers Date Payer Category Payer Managed Care (Private) [facility] [id number] 2023 Unknown [id number] 2022 Blue Cross Blue Shie ld Managed Care [facility] [id number] 2022 Unknown 2022 Unknown [id number] 1968 Unknown [id number] 2..840.1.034364.3.579.2. 593 1968 Unknown [id number] 2840.1.025096.3.579.2. 1068 1968 Unknown [id number] 2.16.840.1.356543.3.579.2. 1067 1968 Unknown [id number] 2.16.840.1.888690.3.579.2. 1067 1968 Unknown [id number] 2.16.840.1.500229.3.579.2. 1067 1968 Unknown [id number] 2.16.840.1.473616.3.579.2. 1067 1968 Unknown [id number] 2.16.840.1.268723.3.579.2. 356 1968 Unknown [id number] 2..840.1.142239.3.579.2. 356 1968 Unknown [id number] 2.840.1.519851.3.579.2. 1968 Unknown [id number] 2.840.1.985739.3.579.2. 356 1968 Unknown [id number] 2..840.1.614418.3.579.2. 1968 Unknown [id number] 2.16.840.1.178606.3.579.2. 356 1968 Unknown [id number] 2..840.1.775512.3.579.2. 356 1968 Unknown [id number] 2.16840.1.710136.3.579.2. 356 1968 Unknown [id number] 2.16.840.1.653503.3.579.2. 1245 1968 Unknown [id number] 2.16.840.1.892554.3.579.2. 1259 1968 Unknown [id number] 2.16.840.1.150655.3.579.2. 1259 1968 Unknown [id number] 2.16.840.1.870878.3.579.2. 1259 1969 Unknown [id number] 2.16.840.1.362682.3.579.2. 1258 1968 Unknown [id number] 2.16.840.1.995451.3.579.2. 1258 1968 Unknown [id number] 2.16.840.1.275008.3.579.2. 1258 1968 Unknown [id number] 2.16.840.1.423823.3.579.2. 1258 1968 Unknown [id number] 2..840.1.751696.3.579.2. 1258 1968 Unknown [id number] 2..840.1.052198.3.579.2. 1258 1968 Unknown [id number] 2..840.1.585009.3.579.21258 1968 Unknown [id number] .840.1.279745.3.579.2 1968 Unknown [id number] 2..840.1.815867.3.579.2 1968 Unknown [id number] 2.840.1.432766.3.579.2 1968 Unknown [id number] ..840.1.712388.3.579.2 1968 Unknown [id number] ..840.1.072028.3.579.2 1968 Unknown [id number] .16.840.1.501615.3.579.2 1968 Unknown [id number] .16.840.1.501754.3.579.2 1968 Unknown [id number] 2.16.840.1.826421.3.579.2. 182 1968 Unknown [id number] 2.16.840.1.110040.3.579.2. 182 1968 Unknown [id number] 2.16.840.1.156955.3.579.2. 1244 1968 Unknown [id number] 2.16.840.1.746940.3.579.2. 1244 1968 Unknown [id number] 2.16.840.1.099025.3.579.2. 124 1968 Unknown [id number] 2.16.840.1.759547.3.579.2. 727 1968 Unknown [id number] 2.16.840.1.116660.3.579.2. 727 1968 Unknown [id number] 2.16.840.1.172416.3.579.2. 727 1968 Unknown [id number] 2.16.840.1.126603.3.579.2. 7 1968 Unknown [id number] 2.16.840.1.237162.3.579.2. 727 1959 Unknown [id number] Private Health Insurance [id number] Unknown [id number] Social History Date Type Detail Facility Start: 04-10-2023 End: 07-27-2023 Never a smoker Never a smoker [facility] Work Phone: Comment on above: 3-4 cups coffee corky y, occasional tea/soda; Start: 04-10-2023 End: 07-27-2023 Sex Assigned At Female [facility] Tobacco smoking status No Smoking Status Entered [facility] Start: 07-12-2022 End: 04-18-2024 Tobacco smoking status Never smoked tobacco (finding) [facility] Tobacco smoking status Never [facility] Tobacco smoking consumption unknown [facility] Start: 04-10-2023 Tobacco use and exposure Smokeless tobacco non-user [facility] Work Phone: Start: 04-10-2023 End: 07-27-2023 Alcohol intake Lifetime non-drinker (finding) [facility] Work Phone: Start: 1970 Sex Assigned At Not on file [facility] Work Phone: Start: 04-06-2023 End: 04-03-2024 Exposure to SARS-CoV-2 (event) Not sure [facility] NEGATED: Highlighted row - - [facility] Work Phone: Functional Status Date Assessment Result Facility 04-18-2024 Functional Status N/A [facility] 01-18-2024 Functional Status N/A [facility] 11-12-2023 Functional Status N/A [facility] 2023 Functional Status N/A [facility] 09-23-2022 Functional Status N/A [facility] 08-07-2022 Functional Status No [facility] 07-12-2022 Functional Status No [facility] Functional observable [facility] NEGATED: Highlighted row Functional performance Functional status health issues are not documented Disease [facility] Work Phone: Mental Status Date Assessment Result Facility 08-24-2022 Cognitive functi ons [id number] [facility] NEGATED: Highlighted row Cognitive function [Interpretation] Cognitive status health issues are not documented Disease [facility] Work Phone: Clinical Notes 06-17-2021 to 04-03-2024 Federico Wing MD - 04/03/2024 12:45 PM EDTPatient Instructions Note Date & Type Note Facility 04-03-2024 History of Present illness Narrative CARDIOLOGY OFFICE VISIT CHIEF COMPLAINT Chief Complaint Patient presents with Follow-up HISTORY OF PRESENT ILLNESS HPI 53-year-old female referred by Dr. Delgado for evaluation [...] 75 mg 1 tablet twice a day. During the last office visit, we increased the dose of flecainide to 100 mg 1 tablet twice a day due to persistent palpitations and PVCs. Cardiac MRI in September 2022 shows left ventricular ejection fraction 67% with delayed enhancement normal. Patient states that she continues having problems with her right ankle. She is develops osteopenia. She is on calcium supplement. Patient denies any chest pain or shortness of breath. Occasionally palpitations Rarely presenting. EKG performed today shows sinus rhythm rate of 62 bpm QRS duration 94 ms QT corrected 424 ms. Rhythm strip shows the same pattern. Past Medical History Past Medical History: Diagnosis Date COVID-19 05/05/2020 COVID-19 virus infection Encounter for gynecological examination (general) (routine) without abnormal findings Pap test, as part of routine gynecological examination Encounter for screening for malignant neoplasm of colon 05/24/2019 Colon cancer screening Other conditions influencing health status Mammogram normal Social History Social History Tobacco Use Smoking status: Never Smokeless tobacco: Never Substance Use Topics Alcohol use: Never Drug use: Never Family History Family History Problem Relation Name Age of Onset Lung cancer Mother Cancer Mother Allergies: Allergies Allergen Reactions Shellfish Containing Products Angioedema and Hives Outpatient Medications: Current Outpatient Medications Medication Instructions aspirin 81 mg, Daily cetirizine (ZyrTEC) 10 mg capsule 1 capsule, Nightly cholecalciferol (VITAMIN D3) 5,000 Units, oral, Daily EPINEPHrine 0.3 mg/0.3 mL injection syringe USE DIRECTED FOR ALLERGIC REACTION ferrous sulfate 325 (65 Fe) MG EC tablet Take 1 capsule twice daily flecainide (TAMBOCOR) 100 mg, oral, Every 12 hours lysine 500 mg tablet 1 tablet, As needed magnesium oxide 400 mg magnesium capsule 1 capsule, Daily metoprolol succinate XL (TOPROL-XL) 25 mg, oral, Daily multivitamin tablet 1 tablet, Daily omeprazole (PRILOSEC) 40 mg, Daily sertraline (ZOLOFT) 50 mg, oral, Daily solifenacin (VESICARE) 10 mg, Daily VITAMIN B COMPLEX ORAL 1 tablet, Daily REVIEW OF SYSTEMS Review of Systems All other systems reviewed and are negative. VITALS Vitals: 04/03/24 1344 BP: 112/60 Pulse: 66 PHYSICAL EXAM Constitutional: Appearance: Healthy appearance. Not in distress. Neck: Vascular: No JVR. JVD normal. Pulmonary: Effort: Pulmonary effort is normal. Breath sounds: Normal breath sounds. No wheezing. No rhonchi. No rales. Chest: Chest wall: Not tender to palpatation. Cardiovascular: PMI at left midclavicular line. Normal rate. Regular rhythm. Normal S1. Normal S2. Murmurs: There is no murmur. No gallop. No click. No rub. Pulses: Intact distal pulses. Edema: Peripheral edema absent. Abdominal: General: Bowel sounds are normal. Palpations: Abdomen is soft. Tenderness: There is no abdominal tenderness. Musculoskeletal: Normal range of motion. General: No tenderness. Skin: General: Skin is warm and dry. Neurological: General: No focal deficit present. Mental Status: Alert and oriented to person, place and time. ASSESSMENT AND PLAN Clinical impression 1. Dizziness 2. Significant bradycardia 3. Palpitations 4. PVCs/PACs recorded on Holter monitors and EKGs in the past. High risk medication (flecainide). 5. Normal left ventricular function per echogram described above. Cardiac MRI in September shows normal left ventricular function 6. No significant coronary artery disease per cardiac catheterization in 2022 7. History of COVID 19 infection Plan-recommendations Patient is doing well from the electrophysiology standpoint. Her symptoms of palpitations are rarely. Continue with flecainide 100 mg 1 tablet twice a day. Continue metoprolol therapy. If patient has significant increase of palpitations she may need to be reevaluated with a Holter or event monitor for possible ablation therapy or adjustment of antiarrhythmic therapy. follow my office every 6 months or sooner needed. Risk factor modification and lifestyle modification discussed with patient. Diet , exercise and hydration discussed with patient. I have personally review with patient during this office visit, laboratory data, echocardiogram results, stress test results, Holter-event monitor results prior and after the last electrophysiology visit. All questions has been answered. Please excuse any errors in grammar or translation related to this dictation. Voice recognition software was utilized to prepare this document. Scribe Attestation By signing my name below, I, Michelle Jackson LPN , Scribe attest that this documentation has been prepared under the direction and in the presence of Federico Wing MD. documented in this encounter [facility] Work Phone: 04-03-2024 Instructions Michelle Jackson LPN - 04/03/2024 12:45 PM EDT DID YOU KNOW We have a pharmacy here in the [facility]. They can fill all prescriptions, not just cardiac medications. Prescriptions from other pharmacies can easily be transferred to the pharmacy by the pharmacist on site. pharmacies offer FREE HOME DELIVERY on medications to anywhere in [place]. They can sync your medications. Typically prescriptions can be ready in 10 - 15 minutes. If pharmacy is unable to fill your prescription or if cost is more than your paying now the Pharmacist can easily transfer back to your Pharmacy of choice. Pharmacy phone # [phone]. Please bring all medicines, vitamins, and herbal supplements with you in original bottles to every appointment!!!! Prescriptions will not be filled unless you are compliant with your follow up appointments or have a follow up appointment scheduled as per instruction of your physician. Refills should be requested at the time of your visit. documented in this encounter [facility] Work Phone: 01-18-2024 Hospital Discharge instructions Follow Up Care 01/18/2024 13:14:20 With:Emily DIMAS, Amanda Kwong, JAVID, PED Address: [address] [place] [address] [phone] When:3 months Comments:20 [facility]roz[facility]-----To go instructions:I recommend the book: [place] to help with supporting your weight loss journeyRead Driven to Distraction by Benjamín Adler to learn more about ADHD https://www.Optics 1/slid eshows/yxyt-farzsjcj-wwhjj-off-o ur-feet/Begin bupropion 150mg; if you tolerate that but feel there's room for improvement, we should increase to 300mgIf tongue continues to be an issue, I would recommend that we go to ENTI recommend labs soon - will call with results------*When you see providers outside of [facility], please request that they send office visit [...] starting at age 50Follow up 3 months [facility] [place] 11-13-2023 Hospital Discharge instructions Patient Education 11/12/2023 23:28:15 Nonspecific Chest [...] Follow these instructions at home: Medicines Take ofka-ikb-mizpxbw and prescription medicines only as told by [...] provider. Document Revised: 08/18/2021 Document Reviewed: 08/18/2021 [employer] Patient Education 2022 Welcome Real-time. Follow Up Care 11/12/2023 20:34:48 With:Skip Gonzalez Address:Unknown When:11/15/2023 With:Amanda Diaz Address: [address] [place] [address] When:11/15/2023 Comments:Call the office of your primary [...] legs, or any new or worsening symptoms. [facility] 11-12-2023 Evaluation + Plan note Extrac chantel [...] Future Appointments Appointment Date:01/11/2024 01:20:00 PM Scheduled Provider:Amanda Diaz DO Location:[facility] Appointment Type: Open Future Scheduled Tests Radiology* MA Mamm Screen w/CAD if perf and 3D Ismael 10/02/23 [facility]04-17-2024 Hospital Discharge instructions Follow Up Care 10/03/2023 16:00:29 With:Amanda Diaz DO, JAVID, PED Address: [facility] [address] [place] [address] [phone] When:3 months Comments:20 min slotTo go instructions:If you decide you want to start bupropion, let me know and I'll submit 150mg XLStop pop for a week, if that doesn't help your symptoms, I recommend that you see a ENT to discuss--------*When you see providers outside of [facility], please request that they send office visit [...] starting at age 48Follow up 3 months [facility] [place] 04-16-2024 Hospital Discharge instructions Patient Education 2023 17:45:03 Major Depressive Disorder, Adult, Pkuu-gq-Fbwr Major Depressive Disorder, Adult Major depressive disorder [...] treated poorly because of race, sex, or cheondoism (discrimination). Health and mental problems that you [...] medicines. ?Any drug use. General instructions Take ivea-bpo-vjvfsrk and prescription medicines and herbal preparations only as told by your doctor. Eat a healthy diet. Get a lot of sleep. Think about joining a support group. Your doctor may be able to suggest one. Keep all follow-up visits as told by your doctor. This is important. Where to find more information: National [place] on Mental Illness: www.nhan.org [place]. National [place] of Mental Health: www.nimh.nih.gov [employer] Psychiatric Association: www.psychiatry.org/patients-families/ Contact a doctor if: [...] department or: Call your local emergency services (156 in the [place].S.). Call a suicide crisis helpline, such as the National Suicide Prevention Lifeline at or 158 in the [place]. This is open 24 hours a day in the [place]. Text the Crisis Text Line at 911124 (in the [place].S.). Summary Major depressive disorder [...] provider. Document Revised: 12/28/2021 Document Reviewed: 05/15/2020 [employer] Patient Education 2022 Welcome Real-time. Follow Up Care 06/29/2023 15:41:40 With:Amanda Diaz DO, FAM, PED Address: [address] [place] [address] [phone] When:3 months Comments:20 min slotTo go instructions:Follow up with cardiology as plannedHave labs drawn soon - I will call with the resultsI have placed a referral for pelvic floor therapy - the hospital will call in the next week or two to scheduleWhen you see providers outside of [facility], please request that they send office visit notes every time you're seen there - this helps us take better care of youState of Slim - for weight lossf/u 3-6 months [facility] [place] 04-16-2024 Evaluation + Plan note Future Scheduled Tests Laboratory* HgbA1c 10/02/23 * TSH With T4fr Reflex 10/02/23 * CBC w/ Auto Diff 10/02/23 * Comprehensive Metabolic Panel 10/02/23 * Lipid Panel 10/02/23 Radiology* MA Mamm Screen w/CAD if perf and 3D Ismael 10/02/23 [facility] [place] 10-30-2023 History of Present illness Narrative* 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, SENIOR FINANCIAL CONSULTANT-PHYSICS AND ASTRONOMY PROFESSOR - 04/16/2023 1:00 PM EDT Rasheeda Hanna [...] with planned fusion to be done at [facility] with Dr. Cyndi Bloom, operative [...] METS without cardiac symptoms. Testing Reviewed Recent [facility] Holter monitor preliminary report shows sinus [...] HISTORY 05/24/2019 Cholecystectomy OTHER SURGICAL HISTORY 05/24/2019 [place] tooth extraction OTHER SURGICAL HISTORY 05/24/2019 section [...] to prepare this document. [facility] Phone: 1(459) 146-386404-09-2023 Evaluation + Plan noteExtracted from: Title:ED Note Author:Vincent Pan MD Date: 3 1. Accidental overdose (T50. 901A: Poisoning by unspecified drugs, medicaments and biological substances, accidental (unintentional), initial encounter) Orders: ECG 12 Lead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
== END 2024-04-23 08:16 | disposition home or self-care (01) ==
LOC: RAD 08:15
PROVIDERS: Visit Provider Podiatrist Foot & Ankle Surgery
DX: M79.671 Pain in right foot (principal); M24.674 Ankylosis, right foot
CPT/HCPCS: 73630

== ENCOUNTER 2024-07-18 09:23 | Outpatient (OUT) | payer OTHER, BC, SELFPAY ==
--- NOTE | 2024-07-18 | XR_ITS ---
The [address] [address] Patient Name: NAN HANNA MRN: [id number] date: 1970 Sex: F Assigned Patient Location: Current Patient Location: Accession/Order Number: [id number] Exam Date: 07/18/2024 09:24 Report Date: 07/21/2024 11:18 At the request of: CYNDI CHEW Procedure: XR foot RT min 3V PROCEDURE: XR foot RT min 3V HISTORY: RIGHT FOOT PAIN COMPARISON: None. FINDINGS: BONES:Mechanical fusion of the talonavicular joint via 3 fusion screws. Bone staple within proximal first metatarsal. No hardware fracture or evidence of loosening. No bone fracture dislocation. Minimal degenerative joint disease of the midfoot and forefoot. SOFT TISSUES:No visible soft tissue swelling. EFFUSION:None visible. OTHER: Negative. XR/XR foot RT min 3V IMPRESSION: 1. Stable surgical changes without evidence of hardware failure or change in alignment. 2. No acute findings to account for patient's symptoms. Electronically authenticated by: GENARO MICHELLE Date: 07/21/2024 11:18
--- OUTSIDE RECORDS SUMMARY | 2024-07-18 09:34 | XMS_ITS | CCD ---
Author Organization [facility] Inform ion Partnership [facility] Care Team Providers Care Harp Regulator Name Role Phone Salima Gilman Unavailable Unavailable Salima Gilman Unavailable UnavailChristian Kessler Unavailable Unavailable Salima Gilman A Unavailable UnavailPriscilla Rose Unavailable Unavailable Maday Schmitz Unavailable Unavailable Salima Gilman Unavailable Unava ilable Celi Barrett Unavailable Unavailable Priscilla Leahy Unavailable Unavailable Simone Coulter DO Unavailable Unavailable Rell WALL Luna Unavailable Unavailable Salima Gilman MD Unavailable Unavailab andree Schmitz OVEN HEATER-CAR DESIGNERMariposana Unavailable Unavaila ble Salima Gilman Unavailable UnavailCeli Kang Unavailable Unavailable Priscilla Leahy Unavailable Unavailable Celi Barrett Unavailable Unavailable Priscilla Leahy Unavailable Unavailable Salima Gilman Unavailable [phone] Unavailable Unavailable SALIMA GILMAN Primary Care Physician Kayla Dent Primary Care Physician [phone] [employer] HERNA[employer] Consulting Unavailable KAYLA DENT Primary [...] Gilman, Dr. Salima Myles Primary Care U fosterailable Kamryn, MsFaby Winn Attending Unavailable Kalina, Dr. Salima Myles Primary Care U navailable Kamryn, MsFaby Winn Attending Unavailable Olena, Dr. Kayla Hassan Primary Care Unavailab le Federico Wing Attending Unavailable Skip Kelly Attending Unavailable Skip Kelly Admitting Unavailable Olena, Dr. Kayla Hassan Referring Unavailab andree Dent, Dr. Kayla Hassan Primary Care Unavailab MD FEDERICO Meza Referring Unavailprecious WING, MD FEDERICO MANSFIELD Attending Unavailprecious Dent, Dr. Kayla Hassan Primary Care Unavailab andree Dent, Dr. Kayla Hassan Primary Care Unavailab andree Dent, Dr. Kayla Hassan Primary Care Unavailab andree Dent, Dr. Kayla Hassan Primary Care Unavailab andree HINSON, LINDA HOUSTON Attending Unavailable SINCERE, LINDA JOSELO CELSO Referring Unavailable Dr. Skip Gonzalez Referring U judahable Kalina, Dr. Salima Myles Primary Care U judahable MD FEDERICO WING Attending UnavailMD FEDERICO James Referring Unavailprecious Dent, Dr. Kayla Hassan Primary Care Unavailab MD FEDERICO Meza Attending Unavailprecious WING, MD FEDERICO MANSFIELD Referring Unavailprecious Dent, Dr. Kayla Hassan Primary Care Unavailab MD FEDERICO Meza Attending Unavailabl e MD FEDERICO WING Referring Unavailabl e MD FEDERICO WING Attending Unavailprecious Dent, Dr. Kayla Hassan Primary Care Unavailab andree Dent DO, Kayla Hassan Primary Care Provider Olena DIMAS, Kayla Hassan Primary Care Provider JOSELO HINSON Referring Unavaila lisandra DENT, KAYLA HASSAN Primary Care Unavailable Olena DIMAS, Kayla Hassan Primary Care Provider Unav ailable Amanda Diaz Primary Care Physician Unavail able DO Amanda Diaz Admitting Unavailable DO Amanda Diaz Attending Unavailable Atilio Beltran Attending Unavailable DO Amanda Diaz Attending Unavailable DO Amanda Diaz Attending Unavailable CYNDI CHEW Attending Unavailable CYNDI CHEW Referring Unavailable CYNDI CHEW Admitting Unavailable CYNDI CHEW Attending Unavailable CYNDI CHEW Referring Unavailable Federico Wing MD Unavailable [phone] Amanda Diaz DO Primary Care Provider EVIE [...] Attending Unavailable DO Amanda Diaz Referring Unavailable Emily, DO Amanda Kwong Admitting Unavailable DO Amanda Diaz Attending Unavailable CYNDI CHEW Referring Unavailable AMANDA DIAZ Primary Care Unavailable CYNDI CHEW Referring Unavailable AMANDA DIAZ Primary Care Unavailable CYNDI CHEW Referring Unavailable NO, PCP Primary Care Unavailable Amanda Diaz DO Primary Care Provider Unallocated , [place] Provider Primary Care [facility] No, Pcp Primary Care Provider Unavailprecious e YANDY ADAMS Attending Unavailab CYNDI Ernandez Referring Unavailable NEYMAR FISHER Attending Unavailable CYNDI CHEW Referring Unavailable PLEYANDY GARCIA Attending Unavailab DEIRDRE Briseno Referring Unavailable PLEASNICK, YANDY Candelario Attending Unavailab le TAVO, DEIRDRE Referring Unavailable PLEASNICK, YANDY Candelario Attending Unavailab le TAVO, DEIRDRE Referring Unavailable PLEASNICK, YANDY Candelario Attending Unavailab le TAVO, DEIRDRE Referring Unavailable PLEASNICK, YANDY Candelario Attending Unavailab le TAVO, DEIRDRE Referring Unavailable PLEASNICK, YANDY Candelario Attending Unavailab le TAVO, DEIRDRE Referring Unavailable PLEASNICK, YANDY Candelario Attending Unavailab le TAVO, DEIRDRE Referring Unavailable YANDY ADAMS Attending Unavailab DEIRDRE Briseno Referring Unavailable PLEYANDY GARCIA Attending Unavailab DEIRDRE Briseno Referring Unavailable PLEASYANDY PERSAUD Attending Unavailab le TAVO, DEIRDRE Referring Unavailable PLEASYANDY PERSAUD Attending Unavailab le HIGHLANDER, CYNDI Luna Referring Unavailable IDALMIS CHRISTIAN Attending Unavailable HIGHLEMILY, CYNDI Luna Referring Unavailable HISNEYMAR TREJO Attending Unavailable HIGHLANDER, CYNDI Luna Referring Unavailable IDALMIS CHRISTIAN Attending Unavailable HIGHLANDER, CYNDI Luna Referring Unavailable HISEYNEYMAR Attending Unavailable HIGHLANDER, CYNDI Luna Referring Unavailable PLEASYANDY PERSAUD Attending Unavailab le HIGHLANDER, CYNDI Luna Referring Unavailable HISEYNEYMAR Attending Unavailable HIGHLANDER, CYNDI Luna Referring Unavailable Allergies Allergy Classification Reported Allergen(s) Allergy Type Date of Onset Reaction(s) Facility Fish (7 sources) shellfish, unspecified Food Allergy Hives, Angioedema -[facility] Work Phone: (20 sources) shellfish, unspecified; Translations: [shellfish] food allergy Hives, Angioedema, Weal (disorder) [facility] (1 source) Shellfish Drug allergy (disorder) 3 [facility] Repository (9 sources) Shellfish; Translations: [shellfish] Drug allergy 3 Weal (disorder), Angioedema, Hives [facility] (1 source) Shellfish Facial Swelling, Hives [facility] (2 sources) SHELLFISH CONTAINING PRODUCTS; Translations: [SHELLFISH CONTAINING PRODUCTS] Propensity to adverse reactions to food (disorder) 3 [facility] Repository Medications Current Medications Medication Drug Class(es) Dates Sig (Normalized) Sig (Original) aspirin 81 mg delayed release oral tablet (20 sources) Platelet Aggregation Inhibitor, Nonsteroidal Anti-inflammatory Drug Start: 07-12-2022 take 1 tablet by mouth once daily aspirin 81 mg Oral EC Tab 81 mg = 1 tab(s), Oral, Daily, # 30 tab(s), Refills(s) 3, Pharmacy: [id number], 152, cm, 09/23/22 [...] q24hr, # 30 tab(s), Refills(s) 5, Pharmacy: [id number], 156, cm, 04/18/24 9:22:00 EDT, [...] 01/18/24 Status: Ordered take 1 capsule by [facility] once daily at bedtime cetirizine (ZyrTEC) [...] Daily, # 30 tab(s), Refills(s) 3, Pharmacy: [id number], 152, cm, 09/23/22 22:25:00 EDT, Height/Length Dosing, 86.5, kg, 09/23/22 22:25:00 EDT, Weight Dosing Start Date: 03/12/23 Status: Ordered Start: 06-23-2021 take 1 tablet by sydni th once daily metoprolol 25 mg ER Tab 25 mg = 1 tab(s), Oral, Daily, # 30 tab(s), Refills(s) 3, Pharmacy: [id number], 152, cm, 07/12/22 [...] Daily, # 90 tab(s), Refills(s) 4, Pharmacy: [id number], 156, cm, 01/18/24 11:52:00 EDT, Height/Length Dosing, 90, kg, 01/18/24 11:52:00 EDT, Weight Dosing Start Date: 02/20/24 Status: Ordered Start: 07-04-2022 take 1 tablet by sydni th once daily Vesicare 5 mg Tab 5 mg = 1 tab(s), Oral, Daily, Refills(s) 0 Start Date: 07/14/22 Status: Ordered 24 hr tolterodine tartrate 4 mg extended release oral capsule (20 sources) Cholinergic Muscarinic Antagonist Start: 08-27-2017 take 1 capsule by mouth once daily tolterodine (DETROL LA) 4 MG extended release capsule Take 1 capsule by mouth daily 90 capsule 1 05/02/2019 Active Start: 08-27-2017 take 1 capsule by mo [facility] every twenty-four hours Tolterodine Tartrate ER 4 MG Oral Capsule Extended Release 24 Hour Quantity: 30 Refills: 0 Start : 27-Aug-2017 Active VITAMIN B COMPLEX ORAL (2 sources) take [...] oral tablet (13 sources) Opioid Agonist Start: 03-15-2021 take 1 tablet by mouth every eight [...] (Med List Cleanup) take 1 capsule by mo uth once daily Vitamin D3 125 MCG (5000 UT) Oral Capsule 1 capsule daily Quantity: 0 Refills: 0 Ordered: 18-Aug-2022 DO Active take 1 capsule by mo uth once daily Vitamin D3 1000 intl units [...] 0 Refills: 0 Ordered: 23-Jun-2021 DO Active Vitamin B Complex Oral Tablet (20 sources) take 1 tablet by sydni th once daily Vitamin B Complex Oral Tablet TAKE 1 TABLET DAILY. Quantity: 0 Refills: 0 Ordered: 11-May-2021 DO Active Problems Active Problems Problem Classification Problem Date Documented Date Episodic/Chronic Acquired foot deformities (20 sources) Ankle joint deformity; Translations: [Varus deformity, not elsewhere classified, right ankle] Onset: 06-15-2024 06-15-2024 Episodic Cardiac dysrhythmias (20 sources) Ventricular premature [...] Episodic Comment on above: CHEST PAIN Osteoarthritis (20 sources) 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; Translations: [Localized, primary osteoarthritis of the ankle and/or foot] Onset: 05-04-2023 01-16-2024 Chronic Comment on above: Outside Source Comme nt: Comment on above: w/ Varus foot deformity, displaced fx of calcaneus Other aftercare (7 sources) Drug therapy finding; Translations: [Long-term (current) use of other medications] Episodic Other aftercare (7 sources) Taking high risk medication; Translations: [Other correction (current) drug therapy] Onset: 04-13-2023 04-16-2023 Episodic [...] Translations: [Arthrodesis status] Onset: 04-18-2024 Episodic Other connective tissue disease (20 sources) History of arthrodesis of ankle; Translations: [Arthrodesis status] Onset: 09-13-2023 09-13-2023 Episodic Other diseases of bladder and urethra [...] right foot] Episodic Other non-traumatic joint disorders (2 sources) Delayed union of ankle joint 04-18-2024 Episodic Other non-traumatic joint disorders (1 source) Other instability, right ankle; Translations: [Other instability, right ankle] Onset: 03-14-2024 Episodic Other non-traumatic joint disorders (1 source) Other instability, unspecified joint; Translations: [Other instability, unspecified joint] Onset: 02-15-2024 Episodic Other non-traumatic joint disorders (20 sources) Stiffness of right ankle; Translations: [Stiffness of right ankle, not elsewhere classified] Onset: 09-13-2023 09-13-2023 Episodic Other nutritional; endocrine; and metabolic disorders [...] encounter] Onset: 09-24-2022 Episodic Residual codes; unclassified (6 sources) Finding related to sleep; Translations: [Sleep [...] history of nicotine dependence] Onset: 08-25-2022 Episodic Spondylosis; intervertebral disc disorders; other back problems (5 sources) Lumbar discogenic pain; Translations: [Discogenic lumbar pain] Onset: 07-11-2024 07-11-2024 Episodic Unclassified (16 sources) Patient encounter status; Translations: [Encounter for screening mammogram for breast cancer] 2023 Unclassified (20 sources) Never smoked tobacco; Translations: [Never a smoker] 04-03-2024 Unclassified (1 source) CONTACT W/AND (SUSP) EXPOS COVID-19; Translations: [CONTACT W/AND (SUSP) EXPOS COVID-19] Onset: 07-05-2022 Unclassified (1 source) UHEM 3/9 08-24-2022 Comment on above: EM 3/ Unclassified (2 sources) AND-AFIB 08-25-2022 Comment [...] 04-10-2023 08-22-2022 Episodic Deficiency and other anemia (6 sources) Iron deficiency anemia; Translations: [Iron deficiency anemia, unspecified] Onset: 06-02-2015 04-10-2023 Episodic Lymphadenitis (20 sources) Lymphadenopathy; Translations: [Enlargement of lymph nodes] Onset: 04-10-2023 04-10-2023 Episodic Mood disorders (20 sources) Mood swings; Translations: [Emotional lability] Onset: 04-10-2023 04-10-2023 Episodic Nonmalignant breast conditions (18 sources) Breast lump; Translations: [Lump or mass in breast] Onset: 04-10-2023 04-10-2023 Episodic Other aftercare (2 sources) Other correction (current) drug therapy; Translations: [Other crown attacher (current) drug therapy] Onset: 04-13-2023 Episodic Other [...] 04-10-2023 04-10-2023 Episodic Other non-traumatic joint disorders (18 sources) Chronic ankle pain; Translations: [Pain in right ankle and joints of right foot] Onset: 09-13-2023 09-13-2023 Episodic Other non-traumatic joint disorders (1 source) Instability of joint; Translations: [Other instability, unspecified joint] 02-15-2024 Episodic Other screening for suspected conditions (not mental disorders or infectious disease) (20 sources) Cancer cervix - screening done; Translations: [Patient encounter status] Onset: 04-10-2023 04-10-2023 Episodic Comment on above: bryan 07/2019-neg atve; Residual codes; unclassified (2 sources) Other specified health status; Translations: [Other specified health status] Onset: 07-27-2023 Episodic Unclassified (1 source) Cancer cervix screening status; Translations: [Cervical cancer screening] Unclassified (12 sources) Mammography normal; Translations: [History of Mammogram normal] Comment on above: 05/2020-cat 112// 019-CAT 1; Unclassified (20 sources) Patient status [...] Name Value Interpretation Reference Range Facility CT ANKLE RIGHT WO CONTRASTon 05-09-2024 CT ANKLE RIGHT WO CONTRAST EXAMINATION: CT OF THE RIGHT ANKLE WITHOUT CONTRAST 05/09/2024 8:46 am TECHNIQUE: CT of the right ankle was performed without the administration of intravenous contrast. Multiplanar reformatted images are provided for review. Automated exposure control, iterative reconstruction, and/or weight based adjustment of the mA/kV was utilized to reduce the radiation dose to as low as reasonably achievable. COMPARISON: February 14 HISTORY ORDERING SYSTEM PROVIDED HISTORY: Post-traumatic osteoarthritis, right ankle and foot TECHNOLOGIST PROVIDED HISTORY: What reading provider will be dictating this exam?->CRC FINDINGS: Bones: 3 screws traverse the posterior facet of the subtalar articulation, which demonstrates somewhat advanced narrowing, subchondral sclerosis, and mild osteophyte formation. Hardware alignment is normal. A large presumed ghost track is seen in the distal tibial metadiaphysis. There is mild generalized osteopenia Soft Tissue: No significant soft tissue edema or fluid collections. Joint: Mild tibiotalar narrowing with subchondral cysts in the talar dome. The ankle mortise is intact. IMPRESSION: 1. Postsurgical fusion of the posterior facet of the subtalar articulation, with bridging sclerosis which has slightly progressed since January 2024 2. Mild tibiotalar osteoarthrosis. Interpreted by: Rene Stearns MD Signed by: Rene Stearns MD 05/09/24 Final result Normal [facility] CT Ankle - right WO contrast on 05-09-2024 1. Postsurgical fusi on of the posterior facet of the subtalar articulation, with bridging sclerosis which has slightly progressed since January 2024 2. Mild tibiotalar osteoarthrosis. [facility] RADIOLOGY EXAMINATION: CT OF THE RIGHT ANKLE WITHOUT CONTRAST 05/09/2024 8:46 am TECHNIQUE: CT of the right ankle was performed without the administration of intravenous contrast. Multiplanar reformatted images are provided for review. Automated exposure control, iterative reconstruction, and/or weight based adjustment of the mA/kV was utilized to reduce the radiation dose to as low as reasonably achievable. COMPARISON: February 14 HISTORY ORDERING SYSTEM PROVIDED HISTORY: Post-traumatic osteoarthritis, right ankle and foot TECHNOLOGIST PROVIDED HISTORY: What reading provider will be dictating this exam?->CRC FINDINGS: Bones: 3 screws traverse the posterior facet of the subtalar articulation, which demonstrates somewhat advanced narrowing, subchondral sclerosis, and mild osteophyte formation. Hardware alignment is normal. A large presumed ghost track is seen in the distal tibial metadiaphysis. There is mild generalized osteopenia Soft Tissue: No significant soft tissue edema or fluid collections. Joint: Mild tibiotalar narrowing with subchondral cysts in the talar dome. The ankle mortise is intact. [facility] RADIOLOGY Rene Stearns MD - 05/09/2024 EXAMINATION: CT OF THE RIGHT ANKLE WITHOUT CONTRAST 05/09/2024 8:46 am TECHNIQUE: CT of the right ankle was performed without the administration of intravenous contrast. Multiplanar reformatted images are provided for review. Automated exposure control, iterative reconstruction, and/or weight based adjustment of the mA/kV was utilized to reduce the radiation dose to as low as reasonably achievable. COMPARISON: February 14 HISTORY ORDERING SYSTEM PROVIDED HISTORY: Post-traumatic osteoarthritis, right ankle and foot TECHNOLOGIST PROVIDED HISTORY: What reading provider will be dictating this exam?->CRC FINDINGS: Bones: 3 screws traverse the posterior facet of the subtalar articulation, which demonstrates somewhat advanced narrowing, subchondral sclerosis, and mild osteophyte formation. Hardware alignment is normal. A large presumed ghost track is seen in the distal tibial metadiaphysis. There is mild generalized osteopenia Soft Tissue: No significant soft tissue edema or fluid collections. Joint: Mild tibiotalar narrowing with subchondral cysts in the talar dome. The ankle mortise is intact. IMPRESSION: 1. Postsurgical fusion of the posterior facet of the subtalar articulation, with bridging sclerosis which has slightly progressed since January 2024 2. Mild tibiotalar osteoarthrosis. [facility] Radiology Study observation (narrative) [facility]le - right WO contrast Ordered By: Rene Stearns on 05-09-2024 [facility] Medicine Office/Clini c Noteon 04-21-2024 Family [...] Scan results and an increase in fatigue. Holden: cologuard 01/31/24, negative Alicia: 02/09/24 Dexa: 03/14/24 Pap: per pt 3 years ago, WNL Flu: declines History of Present Illness 53 Years old Female here for 3 mo f/u med review HPI staff / Chief Complaint confirmed with the patient Social: The patient is ; [place] since November 05, 2021 The patient is currently working; [employer] for 1 years The patient has 3 [...] List of Providers: Cardiology - Dr. Wing [facility] doesn't follow with QUANTITATIVE RESEARCH ANALYST Podiatry - Dr. Cyndi Chew - [facility] To do list: _ [facility] staff / Chief Complaint confirmed [...] a wal (more content not included)... Normal [facility] Comment on above: Result Comment: Elec tronically Signed By: Amanda Diaz DO\.ayla\Date and Time Signed: 04/21/24 13:39 EST Ionized Calciumon 04-21-2024 Calcium.ionized ISE [Mass/Vol] 5.0 mg/dL Invalid Interpretation Code 4.5-5.6 [facility] Comment on above: Result Comment: Perf ormed at: [facility] [address] [id number] PhD Celestina Hein Performed By: #### 2 [id number] #### [facility] [address] [place] [address] PTH [place] 04-19-2024 Parathyrin.intact [Mass/Vol] 19 pg/mL Invalid Interpretation Code 15 [facility] Comment on above: Result Comment: Perf ormed at: [facility] [id number] [place], [place] [id number] PhD Celestina Hein Performed By: #### 1 [id number] #### [facility] [address] [place] [address] Ambulatory Visit Summaryon 1 1-01-2024 Ambulatory Visit Summary Ambulatory Visit Summary RASHEEDA HANNA :1970 Visit Date:04/18/2024 Ambulatory Visit Instructions Your [...] multivitamin (Multi Vitamin+) omeprazole (omeprazole 40 mg Karlos-) sertraline (sertraline 50 mg Tab) solifenacin (solifenacin 10 mg Tab) Procedures Performed Catheterization of left heart (07/14/2022), Ankle fusion, Carpal tunnel, section, Cholecystectomy, Tubal ligation, Viola tooth. Discharge Vitals Heart Rate (Peripheral) 69 Blood Pressure 112/62 Height 156 cm Height 61 in Weight 91.8 kg Weight 201.96 lb BMI 37.72 What to do next Scheduled Follow-Up Appointments Sunday 9:20 AM EST With: Amanda Diaz DO Where: [facility] [address] [place] [address]- You Need to Schedule the Following Appointments Follow Up with Amanda Diaz DO, JAVID, PED When: Within 3 months Comments: 20 min slot [facility] omid sawant ----- To go instructions: I recommend the book: [place] of [place] to help with supporting your weight loss journey Read Driven to Distraction by Benjamín Adler to learn more about ADHD https://[email or web address].com /slideshows/oxro-iqguosjl-z yifr-usr-pjd-feet/ Begin bupropion 150mg; if you tolerate that but feel there's room for improvement, we should increase to 300mg If tongue continues to be an issue, I would recommend that we go to ENT I recommend labs soon - will call with results ------ *When you see providers outside of [facility], please request that they send office visit [...] 50 Follow up 3 months Where: [address] [place] [address] [id number] You Need to Complete the Following Calcium [...] recurrent major depression Refills: 5 Pickup at [facility] Unchanged aspirin (aspirin 81 mg Oral EC [...] if questions (more content not included)... Normal [facility] CBC w/ Auto Diffon 4 Basophils/100 WBC (Bld) 0.6 % Normal 0.0-2.0 [facility] Comment on above: Performed By: #### 2 [id number] #### [facility] [address] [place] [address] Basophils/Leukocytes Auto (Bld) [Pure # fraction] 0.1 E9/L Normal 0.0-0.2 [facility] Comment on above: Performed By: #### 2 [id number] #### [facility] [address] [place] [address] Eosinophils (Bld) [#/Vol] 0.2 E9/L Normal 0.0-0.5 [facility] Comment on above: Performed By: #### 2 [id number] #### [facility] [address] [place] [address] Eosinophils/100 WBC (Bld) 2.4 % Normal 0.0-8.0 [facility] Comment on above: Performed By: #### 2 [id number] #### [facility] [address] [place] [address] Erythrocyte distribution width (RBC) [Ratio] 13.6 % Normal 10.9-14.2 [facility] Comment on above: Performed By: #### 2 [id number] #### [facility] [address] [place] [address] Hematocrit (Bld) [Volume fraction] 40.6 % Normal 34.0-46.0 [facility] Comment on above: Performed By: #### 2 [id number] #### [facility] [address] [place] [address] Hemoglobin (Bld) [Mass/Vol] 14.2 g/dL Normal 12.0-16.0 [facility] Comment on above: Performed By: #### 2 [id number] #### [facility] [address] [place] [address] Lymphocytes (Bld) [#/Vol] 1.9 E9/L Normal 1.0-4.0 [facility] Comment on above: Performed By: #### 2 [id number] #### [facility] [address] [place] [address] Lymphocytes/100 WBC (Bld) 20.7 % Normal 14.0-50.0 [facility] Comment on above: Performed By: #### 2 [id number] #### [facility] [address] [place] [address] MCH (RBC) [Entitic mass] 32.8 pg Normal 27.0-34.0 [facility] Comment on above: Performed By: #### 2 [id number] #### [facility] [address] [place] [id number] MCHC (RBC) [Mass/Vol] 35.0 g/dL Normal 31.4-36.0 [facility] Comment on above: Performed By: #### 2 [id number] #### [facility] [address] [place] [address] MCV (RBC) [Entitic vol] 93.7 fL Normal 80.0-100.0 [facility] Comment on above: Performed By: #### 2 [id number] #### [facility] [address] [place] [address] Monocytes (Bld) [#/Vol] 0.6 E9/L Normal 0.2-1.0 [facility] Comment on above: Performed By: #### 2 [id number] #### [facility] [address] [place] [address] Neutrophils (Bld) [#/Vol] 6.6 E9/L Normal 2.0-7.5 [facility] Comment on above: Performed By: #### 2 [id number] #### [facility] [address] [place] [address] Neutrophils/100 WBC (Bld) 70.4 % Normal 36.0-75.0 [facility] Comment on above: Performed By: #### 2 [id number] #### [facility] [address] [place] [address] Platelet mean volume (Bld) [Entitic vol] 8.7 fL Normal 6.4-10.8 [facility] Comment on above: Performed By: #### 2 [id number] #### [facility] [address] [place] [address] Platelets (Bld) [#/Vol] 257.0 E9/L Normal 150.0-500.0 [facility] Comment on above: Performed By: #### 2 879587 #### [facility] [address] [place] [address] RBC (Bld) [#/Vol] 4.3 E12/L Normal 4.3-5.9 [facility] Comment on above: Performed By: #### 2 [id number] #### [facility] [address] [place] [address] WBC corrected for nucl RBC Auto (Bld) [#/Vol] 9.4 E9/L Normal 4.0-11.0 [facility] Comment on above: Performed By: #### 2 997985 #### [facility] [address] [place] [address] CHEMISTRYOrdered By: SYSTEM SYSTEM on 04-18-2024 25-hydroxyvitamin [...] 04-18-2024 Albumin [Mass/Vol] 4.1 g/dL Normal 3.3-5.0 [facility] Comment on above: Performed By: #### 2 282881 #### [facility] [address] [place] [address] Albumin/Globulin (S) [Mass conc ratio] 1.2 Normal 1.1-2.2 [facility] Comment on above: Performed By: #### 2 335252 #### [facility] [address] [place] [address] ALP [Catalytic activity/Vol] 93 Int._Unit/L Normal 21-98 [facility] Comment on above: Performed By: #### 2 252448 #### [facility] [address] [place] [address] ALT No additional P-5'-P [Catalytic activity/Vol] 28 Int._Unit/L Normal 6-46 [facility] Comment on above: Performed By: #### 2 007528 #### [facility] [address] [place] [address] Anion gap [Moles/Vol] 9 mmol/L Normal 6-16 [facility] Comment on above: Performed By: #### 2 053539 #### [facility] [address] [place] [address] AST [Catalytic activity/Vol] 21 Int._Unit/L Normal 5-43 [facility] Comment on above: Performed By: #### 2 654829 #### [facility] [address] [place] [address] Bilirubin [Mass/Vol] 0.4 mg/dL Normal 0.0-1.[address] [facility] Comment on above: Performed By: #### 2 600383 #### [facility] [address] [place] [address] Calcium [Mass/Vol] 9.3 mg/dL Normal 8.9-11.1 [facility] Comment on above: Performed By: #### 2 208829 #### [facility] [address] [place] [address] Chloride [Moles/Vol] 104 mmol/L Normal 101-[address] [facility] Comment on above: Performed By: #### 2 219358 #### [facility] [address] [place] [address] CO2 [Moles/Vol] 29 mmol/L Normal 21-31 [facility] Comment on above: Performed By: #### 2 107723 #### [facility] [address] [place] [address] Creatinine [Mass/Vol] 0.9 mg/dL Normal 0.5-1.3 [facility] Comment on above: Performed By: #### 2 569032 #### [facility] [address] [place] [address] Globulin (S) [Mass/Vol] 3.4 g/dL Normal 1.4-4.0 [facility] Comment on above: Performed By: #### 2 182101 #### [facility] [address] [place] [address] Glucose [Mass/Vol] 86 mg/dL Normal 55-199 [facility] Comment on above: Performed By: #### 2 183659 #### [facility] [address] [place] [address] Potassium [Moles/Vol] 4.1 mmol/L Normal 3.5-5.3 [facility] Comment on above: Performed By: #### 2 582383 #### [facility] [address] [place] [address] Protein [Mass/Vol] 7.5 g/dL Normal 6.0-7.8 [facility] Comment on above: Performed By: #### 2 085067 #### [facility] [address] [place] [address] Sodium [Moles/Vol] 138 mmol/L Normal 135-145 [facility] Comment on above: Performed By: #### 2 640633 #### [facility] [address] [place] [address] Urea nitrogen [Mass/Vol] 20 mg/dL Normal 5-21 [facility] Comment on above: Performed By: #### 2 523360 #### [facility] [address] [place] [address] Urea nitrogen/Creatinine [Mass ratio] 22 No Units High 10-20 [facility] Comment on above: Performed By: #### 2 397223 #### [facility] [address] [place] [address] HEMATOLOGYOrdered By: SYSTEM SYSTEM on 04-18-2024 Basophils/100 [...] 04-18-2024 Phosphate [Mass/Vol] 3.5 mg/dL Normal 1.9-4.6 [facility] Comment on above: Performed By: #### 2 360048 #### [facility] [address] [place] [address] Vitamin D 25 Hydroxyon 04-18 25-hydroxyvitamin D3 [Mass/Vol] 54.0 ng/mL Normal 30.0-100.0 [facility] Comment on above: Performed By: #### 5 [id number] #### [facility] [address] [place] [address] eGFRon 04-18-2024 eGFR 75 mL/min/1.73 m2 Normal >=59 [facility] Comment on above: Performed By: #### 1 [id number] #### [facility] [address] [place] [address] ECG 12 lead (Clinic Performe d)on 04-03-2024 EKG performed today shows sinus rhythm rate of 62 bpm QRS duration 94 ms QT corrected 424 ms. Rhythm strip shows the same pattern. [facility] Work Phone: [facility] Work Phone: DEXA BONE DENSITY AXIAL SKEL ETONon 03-14-2024 DEXA BONE DENSITY AXIAL SKELETON EXAMINATION: BONE DENSITOMETRY 03/14/2024 8:08 am TECHNIQUE: A bone density dual x-ray absorptiometry (DXA) scan was performed of the lumbar spine and bilateral hips on a [employer] DEXA system. COMPARISON: None. HISTORY: ORDERING SYSTEM [...] Ronald Espinoza DO 03/14/24 Final result Normal [facility] CT FOOT RIGHT WO CONTRASTon 02-15-2024 CT [...] Rene Stearns MD 02/19/24 Final result Normal [facility] [place] Mamm Screen w/CAD if perf [...] VERY IMPORTANT TO YOUR HEALTH. THE CURRENT [employer]IVE CANCER [...] Abraham Murray MD Transcribed by: BENITA Technologist: GIANA Assessment: BI-RADS Category 1-Negative Recommendation: Normal interval follow-up Normal [facility] Ambulatory Visit Summaryon 0 01-18-2024 Ambulatory Visit [...] fusion, Carpal tunnel, section, Cholecystectomy, Tubal ligation, Viola tooth. Discharge Vitals Heart Rate (Peripheral) 61 Blood Pressure 118/66 Height 156 cm Height 61 in Weight 90 kg Weight 198 lb BMI 36.98 What to do next Scheduled Follow-Up Appointments Sunday 9:20 AM EDT With: Amanda Diza DO Where: [facility] [address] [place] [address]- You Need to Schedule the Following Appointments [...] -------- *When you see providers outside of [facility], please request that they send office visit [...] months Where: [address] [place] [address] [phone] Medications What How Much When Instructions Unchanged [...] for choosing us for your care. Normal [facility] Family Medicine Office/Clini c Noteon 01-18-2024 Family [...] in April. - Patient was seen at [facility] 11/12/23 since last visit for chest pain radiating to neck/jaw/shoulder. Cardiac work up completed, which was negative. Advised to f/u with Cardiology. Labs: completed 10/12/23 Holden: Cologuard ordered today - Faxed to [employer] [facility]: ordered at last visit - Patient will call and schedule Pap: per pt about 3 years ago, WNL History of Present Illness 53 Years old Female here for 3 mo f/u cardiac review HPI staff / Chief Complaint confirmed with the patient Social: The patient is ; [place] since November 05, 2021 The patient is currently working; [employer] for 1 years The patient has 3 [...] - Dr. 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 Normal [facility] Comment on above: Result Comment: Elec tronically [...] mGy = na DAP = na Normal [facility] BMPon 11-12-2023 Anion gap [Moles/Vol] 12 mmol/L Normal 6-16 [facility] Comment on above: Performed By: #### 2 [id number] #### [facility] [address] [place] [address] Calcium [Mass/Vol] 9.0 mg/dL Normal 8.9-11.1 [facility] Comment on above: Performed By: #### 2 294072 #### [facility] [address] [place] [address] Chloride [Moles/Vol] 104 mmol/L Normal 101-[address] [facility] Comment on above: Performed By: #### 2 677519 #### [facility] [address] [place] [address] CO2 [Moles/Vol] 27 mmol/L Normal 21-31 [facility] Comment on above: Performed By: #### 2 269216 #### [facility] [address] [place] [address] Creatinine [Mass/Vol] 0.9 mg/dL Normal 0.5-1.3 [facility] Comment on above: Performed By: #### 2 108084 #### [facility] [address] [place] [address] Glucose [Mass/Vol] 100 mg/dL Normal 55-199 [facility] Comment on above: Performed By: #### 2 636497 #### [facility] [address] [place] [address] Potassium [Moles/Vol] 4.0 mmol/L Normal 3.5-5.3 [facility] Comment on above: Performed By: #### 2 667841 #### [facility] [address] [place] [address] Sodium [Moles/Vol] 139 mmol/L Normal 135-145 [facility] Comment on above: Performed By: #### 2 134991 #### [facility] [address] [place] [address] Urea nitrogen [Mass/Vol] 21 mg/dL Normal 5-21 [facility] Comment on above: Performed By: #### 2 876703 #### [facility] [address] [place] [address] Urea nitrogen/Creatinine [Mass ratio] 23 No Units High 10-20 [facility] Comment on above: Performed By: #### 2 849246 #### [facility] [address] [place] [address] CBC w/ Auto Diffon 4 Basophils/100 WBC (Bld) 0.5 % Normal 0.0-2.0 [facility] Comment on above: Performed By: #### 2 611937 #### [facility] [address] [place] [address] Basophils/Leukocytes Auto (Bld) [Pure # fraction] 0.1 E9/L Normal 0.0-0.2 [facility] Comment on above: Performed By: #### 2 575716 #### [facility] [address] [place] [address] Eosinophils (Bld) [#/Vol] 0.2 E9/L Normal 0.0-0.5 [facility] Comment on above: Performed By: #### 2 187749 #### [facility] [address] [place] [address] Eosinophils/100 WBC (Bld) 2.4 % Normal 0.0-8.0 [facility] Comment on above: Performed By: #### 2 128329 #### [facility] [address] [place] [address] Erythrocyte distribution width (RBC) [Ratio] 13.5 % Normal 10.9-14.2 [facility] Comment on above: Performed By: #### 2 858231 #### [facility] [address] [place] [address] Hematocrit (Bld) [Volume fraction] 38.7 % Normal 34.0-46.0 [facility] Comment on above: Performed By: #### 2 539515 #### [facility] [address] [place] [address] Hemoglobin (Bld) [Mass/Vol] 13.3 g/dL Normal 12.0-16.0 [facility] Comment on above: Performed By: #### 2 701004 #### [facility] [address] [place] [address] Lymphocytes (Bld) [#/Vol] 2.8 E9/L Normal 1.0-4.0 [facility] Comment on above: Performed By: #### 2 177556 #### [facility] [address] [place] [address] Lymphocytes/100 WBC (Bld) 28.5 % Normal 14.0-50.0 [facility] Comment on above: Performed By: #### 2 020938 #### [facility] [address] [place] [address] MCH (RBC) [Entitic mass] 31.7 pg Normal 27.0-34.0 [facility] Comment on above: Performed By: #### 2 965201 #### [facility] [address] [place] [address] MCHC (RBC) [Mass/Vol] 34.3 g/dL Normal 31.4-36.0 [facility] Comment on above: Performed By: #### 2 269009 #### [facility] [address] [place] [address] MCV (RBC) [Entitic vol] 92.4 fL Normal 80.0-100.0 [facility] Comment on above: Performed By: #### 2 825757 #### [facility] [address] [place] [address] Monocytes (Bld) [#/Vol] 0.8 E9/L Normal 0.2-1.0 [facility] Comment on above: Performed By: #### 2 691301 #### [facility] [address] [place] [address] Neutrophils (Bld) [#/Vol] 5.9 E9/L Normal 2.0-7.5 [facility] Comment on above: Performed By: #### 2 252529 #### [facility] [address] [place] [address] Neutrophils/100 WBC (Bld) 60.4 % Normal 36.0-75.0 [facility] Comment on above: Performed By: #### 2 596140 #### [facility] [address] [place] [address] Platelet mean volume (Bld) [Entitic vol] 8.8 fL Normal 6.4-10.8 [facility] Comment on above: Performed By: #### 2 765287 #### [facility] [address] [place] [address] Platelets (Bld) [#/Vol] 237.0 E9/L Normal 150.0-500.0 [facility] Comment on above: Performed By: #### 2 795686 #### [facility] [address] [place] [address] RBC (Bld) [#/Vol] 4.2 E12/L Low 4.3-5.9 [facility] Comment on above: Performed By: #### 2 314530 #### [facility] [address] [place] [address] WBC corrected for nucl RBC Auto (Bld) [#/Vol] 9.7 E9/L Normal 4.0-11.0 [facility] Comment on above: Performed By: #### 2 751401 #### [facility] [address] [place] [address] CHEMISTRYOrdered By: SYSTEM SYSTEM on 11-12-2023 Troponin [...] Sensitivity Troponin I Instructions For Use, [place], January 2018) Albumin [Mass/Vol] 4.2 g/dL Normal [...] 37.2 s High 25.1 - 36.5 second(s) [facility] Comment on above: Interpretive Data: [...] the same coagulation reagent and instrumentation as [facility]. Currently there are no coagulation studies available worldwide for children to 14 days, and no normal ranges. Heparin therapeutic range (represented by Anti-Factor Xa activity of 0.2 - 0.4 U/mL) corresponds to PTT of 56.6 - 109.0 sec. INR Coag (PPP) [Relative time] 0.99 {INR} Invalid Interpretation Code [facility] Comment on above: Interpretive Data: I NR results are specifically intended to assess patients stabilized on long-term Anticoagulation therapy suggested INR s Less Intensive Anticoagulation 2.0 3.0 Conventional Range 3.0 4.5 PT Coag (PPP) [Time] 11.1 s Normal 9.4 - 1 2.5 second(s) [facility] Comment on above: Interpretive Data: [...] obtained from a study by seymour Saenz alFaby prepared from 1437 samples obtained at 7 different centers using the same coagulation reagent and instrumentation as [facility]. Currently there are no coagulation studies available worldwide for children to 14 days, and no normal ranges. Consent for Treatmenton 10-17 Consent for Treatment [id number]#1.00TIFF Normal [facility] Discharge Instructionson Discharge Instructions [id number] Normal [facility] ED Clinical Summaryon 2023 ED Clinical Summary (Inserted Image. Sarah ble to display) [place] [id number] ED Clinical Summary Person Information Name: RASHEEDA HANNA [place] Age: 53 Years : 1970 Sex: Female Language: Azeri PCP: Amanda Diaz DO Marital Status: Visit [...] 11/12/2023 23:47:15 11/12/2023 23:47:15 11/12/2023 23:47:15 ADDRESS: [address] [place] [id number] PHYS DOC NOTES: MEDICAL INFORMATION: Prescriptions Given: [...] days 11/15/2023 With: Address: When: Amanda Diaz [address] [place], [place] [id number] In 3 days 11/15/2023 Comments: Call the [...] or worsening symptoms. DIAGNOSIS: Chest pain Normal [facility] ED Note-Physicianon 11-12-19 24 ED Note-Physician Basic Information Time Seen: Atilio [...] precautions were discussed. She will call her licensed master social worker to follow-up. All questions were answered. Patient was discharged home. Assessment/Plan Chest pain (R07.9: Chest pain, unspecified) Orders: acetaminophen, 650 mg = 2 tab(s), Tab, Oral, Once, Stop date (more content not included)... Normal [facility] Comment on above: Result Comment: Elec tronically [...] these instructions at home: Medicines ? Take snoj-rks-tqdqawh and prescription medicines only as told by [...] by your (more content not included)... Normal [facility] ED Patient Summaryon 024 ED Patient Summary (Inserted Image. Sarah ble to display) [place] [id number] Patient Discharge Instructions Person Information Name: RASHEEDA HANNA Age: 53 Years Arrival Date: 11/12/2023 20:33:38 Discharge Diagnosis: Chest pain Primary Care Physician: Amanda Diaz DO Provider Information Primary Provider: Atilio Beltran DO Advanced Manual Arts Therapy Teacher:None The exam and treatment you received in the Emergency Department were for an urgent problem and are not intended as complete care. It is important that you follow up with a doctor, nurse practitioner, or physician?s psychological assistant for ongoing care. If your symptoms [...] days 11/15/2023 With: Address: When: Amanda Diaz [address] [place], [place] [id number] In 3 days 11/15/2023 Comments: Call the [...] opioids can be used to help relieve yfttmfqn-em-omtwxj pain and are often prescribed following a [...] pain yissel (more content not included)... Normal [facility] HEMATOLOGYOrdered By: SYSTEM SYSTEM on 11-12-2023 Basophils/100 [...] 11-12-2023 Albumin [Mass/Vol] 4.2 g/dL Normal 3.3-5.0 [facility] Comment on above: Performed By: #### 2 [id number] #### [facility] [address] [place] [address] Albumin/Globulin (S) [Mass conc ratio] 1.3 Normal 1.1-2.2 [facility] Comment on above: Performed By: #### 2 133466 #### [facility] [address] [place] [address] ALP [Catalytic activity/Vol] 81 Int._Unit/L Normal 21-98 [facility] Comment on above: Performed By: #### 2 759179 #### [facility] [address] [place] [address] ALT No additional P-5'-P [Catalytic activity/Vol] 26 Int._Unit/L Normal 6-46 [facility] Comment on above: Performed By: #### 2 736155 #### [facility] [address] [place] [address] AST [Catalytic activity/Vol] 20 Int._Unit/L Normal 5-43 [facility] Comment on above: Performed By: #### 2 843688 #### [facility] [address] [place] [address] Bilirubin [Mass/Vol] 0.3 mg/dL Normal 0.0-1.[address] [facility] Comment on above: Performed By: #### 2 053131 #### [facility] [address] [place] [address] Bilirubin.direct [Mass/Vol] 0.1 mg/dL Normal 0.0-0.4 [facility] Comment on above: Performed By: #### 2 011392 #### [facility] [address] [place] [address] Bilirubin.indirect [Mass or moles/Vol] 0.2 mg/dL Normal 0.1-0.9 [facility] Comment on above: Performed By: #### 2 752034 #### [facility] [address] [place] [address] Globulin (S) [Mass/Vol] 3.2 g/dL Normal 1.4-4.0 [facility] Comment on above: Performed By: #### 2 257197 #### [facility] [address] [place] [address] Protein [Mass/Vol] 7.4 g/dL Normal 6.0-7.8 [facility] Comment on above: Performed By: #### 2 185568 #### [facility] [address] [place] [address] Lipase Levelon 11-12-2023 Lipase [Catalytic activity/Vol] 23 U/L Normal 13-58 [facility] Comment on above: Performed By: #### 2 675199 #### [facility] [address] [place] [address] Monitor Recordon 11-12-2023 Monitor Record [id number] Normal [facility] Monitor Record [id number]#1.00TIFF Normal [facility] PT & PTTon 11-12-2023 aPTT Coag (PPP) [Time] 37.2 second(s) High 25.1-36.5 [facility] Comment on above: Result Comment: Para meter [...] the same coagulation reagent and instrumentation as [facility]. Currently there are no coagulation studies available worldwide for children to 14 days, and no normal ranges. Heparin therapeutic range (represented by Anti-Factor Xa activity of 0.2 - 0.4 U/mL) corresponds to PTT of 56.6 - 109.0 sec. Performed By: #### 1 [id number] #### [facility] [address] [place] [address] INR Coag (PPP) [Relative time] 0.99 {INR} Invalid Interpretation Code [facility] Comment on above: Result Comment: INR results are specifically intended to assess patients stabilized on long-term Anticoagulation therapy suggested INR?s ?Less Intensive Anticoagulation? 2.0 ? 3.0 Conventional Range 3.0 ? 4.5 Performed By: #### 1 [id number] #### [facility] [address] [place] [address] PT Coag (PPP) [Time] 11.1 second(s) Normal 9.4-12.5 [facility] Comment on above: Result Comment: 15 d [...] the same coagulation reagent and instrumentation as [facility]. Currently there are no coagulation studies available worldwide for children to 14 days, and no normal ranges. Performed By: #### 1 [id number] #### [facility] [address] [place] [address] Troponin 0 Hr.on 11-12-2023 Troponin 2.80 pg/mL Low 10.10-27.10 [facility] Comment on above: Result Comment: The 95% CI (Confidence Interval) PPV (Positive Predictive Value) for myocardial infarction in females is 38 pg/mL, in males 51 pg/mL. The results should be used in conjunction with clinical conditions of myocardial infarction. (Access High Sensitivity Troponin I Instructions For Use, [place], January 2018) Performed By: #### 1 [id number] #### [facility] [address] [place] [address] Troponin 1 Hr.on 11-12-2023 Troponin 3.50 pg/mL Low 10.10-27.10 [facility] Comment on above: Result Comment: The 95% CI (Confidence Interval) PPV (Positive Predictive Value) for myocardial infarction in females is 38 pg/mL, in males 51 pg/mL. The results should be used in conjunction with clinical conditions of myocardial infarction. (Access High Sensitivity Troponin I Instructions For Use, [place], January 2018) Performed By: #### 1 [id number] #### [facility] [address] [place] [address] eGFRon 11-12-2023 eGFR 75 mL/min/1.73 m2 Normal >=59 [facility] Comment on above: Order Comment: Order added by Discern Expert. Performed By: #### 1 [id number] #### [facility] [address] [place] [address] CBC w/ Auto Diffon Basophils/100 WBC (Bld) 0.6 % Normal 0.0-2.0 [facility] Comment on above: Performed By: #### 1 [id number], [id number], [id number], [id number], [id number], [id number] ####[facility] [address] [place] [address] Basophils/Leukocytes Auto (Bld) [Pure # fraction] 0.0 E9/L Normal 0.0-0.2 [facility] Comment on above: Performed By: #### 1 2247385, 1701100, 8015690, 5190200, 35660300, 485404952 ####[facility] [address] [place] [address] Eosinophils (Bld) [#/Vol] 0.3 E9/L Normal 0.0-0.5 [facility] Comment on above: Performed By: #### 1 2418525, 5748744, 5374984, 7287918, 22866939, 461297217 ####[address] [place] [address] Eosinophils/100 WBC (Bld) 3.3 % Normal 0.0-8.0 [facility] Comment on above: Performed By: #### 1 4437807, 6971708, 2131324, 1385782, 88336202, 834818912 ####[address] [place] [address] Erythrocyte distribution width (RBC) [Ratio] 13.9 % Normal 10.9-14.2 [facility] Comment on above: Performed By: #### 1 5099554, 4342040, 0832435, 1216115, 40660489, 250892608 ####[address] [place] [address] Hematocrit (Bld) [Volume fraction] 40.7 % Normal 34.0-46.0 [facility] Comment on above: Performed By: #### 1 3002703, 4900827, 5878259, 0088332, 68716865, 524018464 ####[address] [address] Hemoglobin (Bld) [Mass/Vol] 13.5 g/dL Normal 12.0-16.0 [facility] Comment on above: Performed By: #### 1 0910022, 6538021, 2849958, 8886336, 11924913, 444796892 ####[address] [address] Lymphocytes (Bld) [#/Vol] 1.9 E9/L Normal 1.0-4.0 [facility] Comment on above: Performed By: #### 1 7896903, 7083800, 9166279, 2185393, 51692996, 766707597 ####[address] [address] Lymphocytes/100 WBC (Bld) 22.6 % Normal 14.0-50.0 [facility] Comment on above: Performed By: #### 1 7000812, 6356752, 7484901, 4854781, 51958121, 233910557 ####[address] [place] [address] MCH (RBC) [Entitic mass] 30.8 pg Normal 27.0-34.0 [facility] Comment on above: Performed By: #### 1 0492263, 6374163, 4156517, 9902434, 94813519, 411311940 ####[address] [address] MCHC (RBC) [Mass/Vol] 33.3 g/dL Normal 31.4-36.0 [facility] Comment on above: Performed By: #### 1 0613467, 7069660, 9858254, 1239821, 07667648, 624586585 ####[address] [address] MCV (RBC) [Entitic vol] 92.7 fL Normal 80.0-100.0 [facility] Comment on above: Performed By: #### 1 2020219, 6755111, 8476159, 7229062, 49217246, 926113755 ####[address] [address] Monocytes (Bld) [#/Vol] 0.7 E9/L Normal 0.2-1.0 [facility] Comment on above: Performed By: #### 1 7813300, 3492650, 8666385, 7838227, 11502936, 692621341 ####[address] [address] Neutrophils (Bld) [#/Vol] 5.6 E9/L Normal 2.0-7.5 [facility] Comment on above: Performed By: #### 1 7818197, 1955677, 5826119, 5221231, 76734095, 228857336 ####[address] [address] Neutrophils/100 WBC (Bld) 65.6 % Normal 36.0-75.0 [facility] Comment on above: Performed By: #### 1 9378778, 0167790, 8534792, 8289930, 08962012, 421451916 ####[address] [place] [address] Platelet 275.0 E9/L Normal 150.0-500.0 [facility] Comment on above: Performed By: #### 1 1148595, 8652361, 5551936, 2728861, 15320600, 570407955 ####[facility] [address] [place] [address] Platelet mean volume (Bld) [Entitic vol] 9.0 fL Normal 6.4-10.8 [facility] Comment on above: Performed By: #### 1 2541632, 9253973, 7163678, 5174952, 33451706, 151729533 ####[facility] [address] [place] [address] RBC (Bld) [#/Vol] 4.4 E12/L Normal 4.3-5.9 [facility] Comment on above: Performed By: #### 1 5162987, 6893446, 4679747, 6374235, 00150830, 869904149 ####[facility] [address] [place] [address] WBC corrected for nucl RBC Auto (Bld) [#/Vol] 8.5 E9/L Normal 4.0-11.0 [facility] Comment on above: Performed By: #### 1 8922585, 1478952, 8361576, 7039086, 88308479, 593535834 ####[facility] [address] [place] [address] CHEMISTRYOrdered By: SYSTEM SYSTEM on 10-12-2023 Albumin [...] ratio] 28 mg/mg High 10 - 20 [facility] Chem CHEMISTRYOrdered By: Patricia Bruno on 10-12-2023 HbA1c (Bld) [Mass fraction] 5.8 % Normal <=5.9% [facility] ChemAutoSS CMPon 10-12-2023 Albumin [Mass/Vol] 4.1 g/dL Normal 3.3-5.0 [facility] Comment on above: Performed By: #### 1 7901674, 4877340, 3413930, 1419221, 52914957, 467765018 ####[facility] [address] [place] [address] Albumin/Globulin (S) [Mass conc ratio] 2.0 Normal 1.1-2.2 [facility] Comment on above: Performed By: #### 1 0233650, 4113677, 8796381, 2680591, 49628177, 609118567 ####[facility] [address] [place] [address] ALP [Catalytic activity/Vol] 75 Int._Unit/L Normal 21-98 [facility] Comment on above: Performed By: #### 1 1595095, 6868310, 1801825, 4112311, 08869083, 450202940 ####[facility] [address] [place] [address] ALT No additional P-5'-P [Catalytic activity/Vol] 32 Int._Unit/L Normal 6-46 [facility] Comment on above: Performed By: #### 1 5777181, 8152350, 3247150, 8747328, 43945360, 192981018 ####[facility] [address] [place] [address] Anion gap [Moles/Vol] 10 mmol/L Normal 6-16 [facility] Comment on above: Performed By: #### 1 0465413, 8712149, 4678600, 9195843, 37416034, 771895342 ####[facility] [address] [place] [address] AST [Catalytic activity/Vol] 22 Int._Unit/L Normal 5-43 [facility] Comment on above: Performed By: #### 1 3617154, 4291164, 6882056, 6985135, 32992132, 258775240 ####[facility] [address] [place] [address] Bilirubin [Mass/Vol] 0.4 mg/dL Normal 0.0-1.[address] [facility] Comment on above: Performed By: #### 1 1967589, 0162384, 1360069, 7158240, 60018569, 603907900 ####[facility] [address] [place] [address] Calcium [Mass/Vol] 9.0 mg/dL Normal 8.9-11.1 [facility] Comment on above: Performed By: #### 1 3181601, 9340736, 4320908, 8709532, 07033902, 523725218 ####[facility] [address] [place] [address] Chloride [Moles/Vol] 104 mmol/L Normal 101-[address] [facility] Comment on above: Performed By: #### 1 5605474, 4310915, 0699525, 8117605, 66709506, 076533286 ####[facility] [address] [place] [address] CO2 [Moles/Vol] 29 mmol/L Normal 21-31 [facility] Comment on above: Performed By: #### 1 9650458, 7659954, 1655073, 0058177, 83360657, 773937663 ####[facility] [address] [place] [address] Creatinine [Mass/Vol] 0.8 mg/dL Normal 0.5-1.3 [facility] Comment on above: Performed By: #### 1 1182500, 7177100, 4116178, 4804738, 09096167, 481497337 ####[facility] [address] [place] [address] Globulin (S) [Mass/Vol] 2.0 g/dL Normal 1.4-4.0 [facility] Comment on above: Performed By: #### 1 8715226, 3054846, 0914010, 2808094, 06699834, 472540996 ####[facility] [address] [place] [address] Glucose [Mass/Vol] 125 mg/dL Normal 55-199 [facility] Comment on above: Performed By: #### 1 2088322, 4134032, 2274969, 9265768, 42323647, 760333497 ####[facility] [address] [place] [address] Potassium [Moles/Vol] 4.6 mmol/L Normal 3.5-5.3 [facility] Comment on above: Performed By: #### 1 3091744, 6792199, 8985884, 6171300, 07409997, 911809047 ####[facility] [address] [place] [address] Protein [Mass/Vol] 6.1 g/dL Normal 6.0-7.8 [facility] Comment on above: Performed By: #### 1 7460644, 3978775, 5014088, 6054357, 72552998, 961840351 ####[facility] [address] [place] [address] Sodium [Moles/Vol] 138 mmol/L Normal 135-145 [facility] Comment on above: Performed By: #### 1 5967723, 9927140, 8936408, 4746355, 28573085, 089483922 ####[facility] [address] [place] [address] Urea nitrogen [Mass/Vol] 22 mg/dL High 5-21 [facility] Comment on above: Performed By: #### 1 8145658, 4179746, 1926211, 6759797, 49309319, 074564021 ####[facility] [address] [place] [address] Urea nitrogen/Creatinine [Mass ratio] 28 No Units High 10-20 [facility] Comment on above: Performed By: #### 1 2890669, 6866033, 1992837, 8413426, 57769804, 598662140 ####[facility] [address] [place] [address] Consent for Treatmenton 09-17 Consent for Treatment [id number]#1.00TIFF Normal [facility] HEMATOLOGYOrdered By: SYSTEM SYSTEM on 10-12-2023 Basophils/100 [...] Normal 4.0 - 11.0 E9/L Remisol Heme [id number] 10-12-2023 HbA1c (Bld) [Mass fraction] 5.8 % Normal <=5.9 [facility] Comment on above: Performed By: #### 1 5969044, 8328557, 3491683, 8270886, 63922780, 983611869 ####[facility] [address] [place] [address] Lipid Panelon 10-12-2023 Cholesterol [Mass/Vol] 209 mg/dL High 120-200 [facility] Comment on above: Performed By: #### 1 9178040, 6492916, 2121371, 0729209, 99982737, 146952590 ####[facility] [address] [place] [address] Cholesterol in HDL [Mass/Vol] 54 mg/dL Invalid Interpretation Code [facility] Comment on above: Result Comment: '>= 60 LOW RISK' '<= 40 HIGH RISK' Performed By: #### 1 9334669, 0315093, 9166582, 1753692, 50013462, 939589330 ####[facility] [address] [place] [address] Cholesterol in LDL [Mass/Vol] 132 mg/dL High <=129 [facility] Comment on above: Performed By: #### 1 5109468, 8974118, 2956617, 1630040, 10468679, 726937596 ####[facility] [address] [place] [address] Cholesterol in VLDL [Mass/Vol] 24 mg/dL Normal 7-40 [facility] Comment on above: Performed By: #### 1 6122825, 3891498, 3564501, 2796654, 17419980, 733610639 ####[facility] [address] [place] [address] Triglyceride [Mass/Vol] 118 mg/dL Normal <=149 [facility] Comment on above: Performed By: #### 1 6563832, 3813282, 8802007, 9712207, 52481922, 571716791 ####[facility] [address] [place] [address] TSH With T4fr Reflexon 10-11 TSH Qn 1.73 m[IU]/L Normal 0.34-5.60 [facility] Comment on above: Performed By: #### 1 2904630, 3826130, 3128048, 7443821, 78786280, 302116476 ####[facility] [address] [place] [address] eGFRon 10-12-2023 eGFR 87 mL/min/1.73 m2 Normal >=59 [facility] Comment on above: Order Comment: Order added by Discern Expert. Performed By: #### 1 5147849, 1759624, 3548422, 6471154, 18789449, 395856357 ####[facility] [address] [place] [address] Ambulatory Visit Summaryon 0 10-03-2023 Ambulatory Visit [...] fusion, Carpal tunnel, section, Cholecystectomy, Tubal ligation, Viola tooth. Discharge Vitals Heart Rate (Peripheral) 64 [...] schedule When you see providers outside of [facility], please request that they send office visit notes every time you're seen there - this helps us take better care of you [place] - for weight loss f/u 3-6 months Where: [address] [place] [address] [phone] You Need to Complete the Following CBC [...] No, Screening mammogram, encounter for, pp_set_radiology_subspecial , [facility] Medications What How Much [...] a mix (more content not included)... Normal [facility] Family Medicine Office/Clini c Noteon 10-03-2023 Family Medicine Office/Clinic Note Chief Complaint EST CARE HPI Staff Establish Care: History: Last provider:Kayla Dent Any recent labs:NO Health Maintenance UTD: Colonoscopy: Due for cologuard PSA: N/A Mammogram: Due Pelvic/Pap: no Acute: Current issues/complaints: Discuss getting off Zoloft, Would like a Dr who will take care of all her issues. Cardio. Dr Federico Wing in [place] . History of Present Illness 52 Years old Female here for ESTABLISH CARE This patient is NEW TO [place] Previous PCP was Kayla Dent, Last appt with previous PCP was six weeks ago Social: The patient is ; [place] since November 05, 2021 The patient is currently working; [employer] for 1 years The patient has 3 child(jose) and 2 step children 3 grandchild(jose) no great grandchild(jose) Screening: Colon Cancer screening: cologuabogdan five years ago; this patient does NOT have family history of colon cancer Breast cancer screening: Birads 18 Jun 2022; this patient does NOT have a family history of breast cancer Pap smear: 2019? (Dr. Kayla Dent) Labs: September 2022 List of Providers: Cardiology - Dr. 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 Normal [facility] Comment on above: Result Comment: Elec tronically Signed By: Amanda Diaz DO.ayla\Date and Time Signed: 10/03/23 19:51 EDT Patient [...] needs of life, such as food and intermediate. ? Being treated poorly because of race, sex, or bahai (discrimination). ? Health and mental problems that [...] Any drug use. General instructions ? Take drri-ukh-gyvyhks and prescription medicines and herbal preparations only as told by your doctor. ? Eat a healthy diet. ? Get a lot of sleep. ? Think about joining a support group. Your doctor may be able to suggest one. ? Keep all follow-up visits as told by your doctor. This is important. Where to find more information: ? National [place] on Mental Illness: www.nhan.org ? U.[place] National [place] of Mental Health: www.nimh.nih.gov ? [place] [employer]: www.psychiatry.org/patients -families/ Contact a doctor [...] services (911 i (more content not included)... [facility] Physician Orderon 06-29-2023 Physician Order [id number]#1.00TIFF [facility] PT - Orderson 04-27-2023 PT - Orders [id number]#1.00TIFF [facility] Consent for Treatmenton Consent for Treatment [id number]#1.00TIFF [facility] PT - Assessmentson PT - Assessments [id number]#1.00TIFF [facility] PT - Consentson 04-26-2023 PT - Consents [id number]#1.00TIFF [facility] PT - Orderson 04-26-2023 PT - Orders [id number]#1.00TIFF Normal [facility] Holter monitor studyon 04-18 This is an [...] transmissions. Clinical correlation needs to be made [facility] Holter monitor studyOrdered By: Federico Wing on 04-18-2023 [facility] Work Phone: Consent for Treatmenton 03-18 Consent for Treatment [id number]#1.00TIFF Normal [facility] MRI Ankle w/o Contrast Right on 03-30-2023 [...] BENITA Technologist: JENNI Technical Comments None Normal [facility] RAD - MRI Screening Formon 1 RAD - MRI Screening Form [id number]#1.00TIFF Normal [facility] Physician Orderon 03-21-2023 Physician Order [id number]#1.00CD:127 Normal [facility] MRI Cardiac w/wo contrast fo r Morph/Funct and Valve Dzon 10-10-2022 MRI Cardiac w/wo contrast for Morph/Funct and Valve Dz Normal [facility]-[address] a [place] Work Phone: TH MRI CARDIAC RESONANCE MENG GING FOR VELOCITY FLOW MAPPINGon 10-10-2022 MRI CARDIAC RESONANCE IMAGING FOR VELOCITY FLOW MAPPING [facility] CMR Report Name: RASHEEDA HANNA : 1970 Scan Date: 2022-10-10 13:15:00 Electronically signed by OMID LEACH 15:48:14 GENERAL INFORMATION HEIGHT: 60.00 in (152.40 cm) WEIGHT: 186.00 lbs (84.37 kgs) BSA: 1.81 m^2 BASELINE HR: 0 BPM SCAN LOCATION: [facility] REFERRING PHYSICIAN: FEDERICO WING ATTENDING PHYSICIAN: FEDERICO WING TECHNOLOGIST: GENARO DELONG ACCESSION NUMBER: [id number] CPT CODES: 80796, [ , ]57398 ICD10 CODES: R00.2, [ , ]I49.3 SUMMARY [...] included)... Normal [facility] MRI CARDIAC W/WO CONTRAST FOR MORPH/FUNCT AND VALVE DZon 10-10-2022 MRI CARDIAC W/WO CONTRAST FOR MORPH/FUNCT AND VALVE [facility] CMR Report Name: RASHEEDA HANNA : 1970 Scan Date: 2022-10-10 13:15:00 Electronically signed by OMID LEACH 15:48:14 GENERAL INFORMATION HEIGHT: 60.00 in (152.40 cm) WEIGHT: 186.00 lbs (84.37 kgs) BSA: 1.81 m^2 BASELINE HR: 0 BPM SCAN LOCATION: [facility] REFERRING PHYSICIAN: FEDERICO WING ATTENDING PHYSICIAN: FEDERICO WING TECHNOLOGIST: GENARO DELONG ACCESSION NUMBER: [id number] CPT CODES: 12919, [ , ]51541 ICD10 CODES: R00.2, [ , ]I49.3 SUMMARY [...] Normal (more content not included)... Normal [facility] CHEMISTRYOrdered By: SYSTEM SYSTEM on 09-23-2022 Albumin [...] Normal >=59mL/min/ 1.73 m2 FT Chem S Globulin (S) [Mass/Vol] 3.5 g/dL [...] alcoholic beverages.; Status:Complete - Retrospective Authorization; Done: [id number] Avoid foods and beverages that contain caffeine.; [...] or Bone Graft Simulator, Implanted Breast Tissue Healthcare Economics Consultant, Glucose Monitor, or Neulasta Device? : No [...] laboratory tests Chief Complaint Patient here for [facility] discharge follow up. Discharged 08/24. Palpitations, [...] no marcellus (more content not included)... Normal [employer] Tobacco Screening.on 023 Adult depression screening assessment No [facility] DO Work Phone: Fall risk assessment a) No falls within the last year [facility] [address] DO Work Phone: Tobacco use status CPHS b) No [facility] [address] DO Work Phone: BASIC METABOLIC PANELon 08-16 Anion gap [Moles/Vol] 11 mmol/L Normal 10 - 20 [facility] Comment on above: Performed By: #### T RPHS #### [address] [id number] Calcium [Mass/Vol] 8.9 mg/dL Normal 8.6 - 10.3 [facility] Comment on above: Performed By: #### T RPHS #### [address] [id number] Chloride [Moles/Vol] 104 mmol/L Normal 98 - 107 [facility] Comment on above: Performed By: #### T RPHS #### [address] [id number] Creatinine [Mass/Vol] 0.76 mg/dL Normal 0.50 - 1.05 [facility] Comment on above: Performed By: #### T RPHS #### [address] [id number] eGFR FEMALE >90 Normal >90 [facility] Comment on above: Result Comment: CALC ULATIONS OF ESTIMATED GFR ARE PERFORMED USING THE 2020 CKD-EPI STUDY REFIT EQUATION WITHOUT THE RACE VARIABLE FOR THE IDMS-TRACEABLE CREATININE METHODS. https://jasn.asnjournals.org/content//ASN.8381353 988 Performed By: #### T RPHS #### [address] [id number] Glucose [Mass/Vol] 99 mg/dL Normal 74 - 99 [facility] Comment on above: Performed By: #### T RPHS #### [address] [id number] HCO3 (Bld) [Moles/Vol] 26 mmol/L Normal 21 - 32 [facility] Comment on above: Performed By: #### T RP #### [address] [id number] Potassium [Moles/Vol] 3.8 mmol/L Normal 3.5 - 5.3 [facility] Comment on above: Performed By: #### T RP #### [address] [id number] Sodium [Moles/Vol] 137 mmol/L Normal 136 - 145 [facility] Comment on above: Performed By: #### T RP #### [address] [id number] Urea nitrogen [Mass/Vol] 16 mg/dL Normal 6 - 23 [facility] Comment on above: Performed By: #### T RPHS #### [address] [id number] CBCon 08-25-2022 Erythrocyte distribution width (RBC) [Ratio] 12.6 % Normal 11.5 - 14.5 [facility] Comment on above: Performed By: #### C BC #### [address] [id number] Hematocrit (Bld) [Volume fraction] 38.4 % Normal 36.0 - 46.0 [facility] Comment on above: Performed By: #### C BC #### [address] [id number] Hemoglobin (Bld) [Mass/Vol] 13.1 g/dL Normal 12.0 - 16.0 [facility] Comment on above: Performed By: #### C BC #### [address] [id number] MCHC (RBC) [Mass/Vol] 34.1 g/dL Normal 32.0 - 36.0 [facility] Comment on above: Performed By: #### C BC #### [address] [id number] MCV (RBC) [Entitic vol] 92 fL Normal 80 - 100 [facility] Comment on above: Performed By: #### C BC #### [address] [id number] Platelets (Bld) [#/Vol] 248 10*3/uL Normal 150 - 450 [facility] Comment on above: Performed By: #### C BC #### [address] [id number] RBC 4.18 x10E12/L Normal 4.00 - 5.20 [facility] Comment on above: Performed By: #### C BC #### [address] [id number] WBC (Bld) [#/Vol] 9.6 10*3/uL Normal 4.4 - 11.3 [facility] Comment on above: Performed By: #### C BC #### [address] [id number] Daily Progress Note-Electrop hysiologyon 08-25-2022 Daily Progress Note-Electrophysiolo gy Consult Type: subsequent visit/care Service: Electrophysiology Subjective Data: RASHEEDA HANNA is a 51 year old Female who is Hospital Day # 4. Additional Information: still with c/o palpitations/ chest pain approximately 1 hour prior to receiving dose of flecainide Up out of bed ambulating in room and bianchi Objective Data: Objective Information: T PRBPMAPSpO2 [id number]/537171% Date/Time08/25 12: 12: 12: 12: 12: 12:17 [...] to better control of PVCs. EKG in [place] on Monday 08/28 and Tuesday 08/29 [...] Patien (more content not included)... Normal [facility] Electrocardiogram 12 Leadon 08-25-2022 Electrocardiogram 12 Lead Ventricular Rate 71 Atrial Rate 71 P-R Interval 166 QRS Duration 88 Q-T Interval 380 QTC Calculation(Bazett) 412 P [place] 59 R [place] 61 T [place] 56 QRS Count 12 Q Onset 219 P Onset 136 P Offset 195 T Offset 409 QTC Fredericia 402 Diagnosis Class Borderline Abnormal Diagnosis Normal sinus rhythm Normal ECG When compared with ECG of 24-AUG-2022 20:23, premature ventricular complexes is no longer present Confirmed by Omid Leach ([id number]) on 08/26/2022 1:34:29 PM Normal [facility] Laboratory - Chemistry and C hemistry - challengeon 08-25-2022 Anion gap [Moles/Vol] 11 mmol/L 10 - 20 [facility] [employer] Work Phone: Calcium [Mass/Vol] 8.9 mg/dL 8.6 - 10.3 [facility] Work Phone: Chloride [Moles/Vol] 104 mmol/L 98 - 107 [facility] [employer] Work Phone: CO2 [Moles/Vol] 26 mmol/L 21 - [facility] [place] Work Phone: Creatinine [Mass/Vol] 0.76 mg/dL See Below [facility] [place] Work Phone: Comment on above: Reference Range: 0.5 0 - 1.05 Glucose [Mass/Vol] 99 mg/dL 74 - 99 [facility] [employer] Work Phone: Potassium [Moles/Vol] 3.8 mmol/L 3.5 - 5.3 [facility] [employer] Work Phone: Sodium [Moles/Vol] 137 mmol/L 136 - 145 [facility] [employer] Work Phone: Urea nitrogen [Mass/Vol] 16 mg/dL 6 - 23 [facility] [place] Work Phone: Laboratory - Hematology and Cell countson 08-25-2022 Erythrocyte distribution width (RBC) [Ratio] 12.6 % See Below [facility] [place] Work Phone: Comment on above: Reference Range: 11. 5 - 14.5 Hematocrit (Bld) [Volume fraction] 38.4 % See Below [facility] [employer] Work Phone: Comment on above: Reference Range: 36. 0 - 46.0 Hemoglobin (Bld) [Mass/Vol] 13.1 g/dL See Below [facility] [place] Work Phone: Comment on above: Reference Range: 12. 0 - 16.0 MCHC (RBC) [Mass/Vol] 34.1 g/dL See Below [facility] [place] Work Phone: Comment on above: Reference Range: 32. 0 - 36.0 MCV (RBC) [Entitic vol] 92 fL 80 - 100 [facility] [place] Work Phone: Platelets (Bld) [#/Vol] 248 10*3/uL 150 - 450 [facility] [place] Work Phone: RBC (Bld) [#/Vol] 4.18 {x10E12/L} See Below [facility] [place] Work Phone: Comment on above: Reference Range: 4.0 0 - 5.20 WBC (Bld) [#/Vol] 9.6 10*3/uL 4.4 - 11.3 [facility] Work Phone: MAGNESIUMon 08-25-2022 Magnesium [Mass/Vol] 1.91 mg/dL Normal 1.60 - 2.40 [facility] Comment on above: Performed By: #### M G #### [address] [id number] Magnesium, Serumon 3 Magnesium [Mass/Vol] 1.91 mg/dL See Below -N [facility] Work Phone: Comment on above: Reference Range: 1.6 0 - 2.40 No Panel Informationon 08-25 https://[email or web address]/musescripts/museweb.dll?R etrieveTestByDateTime?Patie knHG=[id number]&Date= 023&Time=06%3a43%3a42%3a00& TestType=ECG&Site=11&Output Type=PDF&Ext=PDF [facility] DO Work Phone: Normal sinus rhythm [facility] DO Work Phone: Borderline Abnormal MP[facility] DO Work Phone: [phone] [facility] DO Work Phone: [phone] [facility] DO Work Phone: [phone] [facility] DO Work Phone: [phone] [facility] DO Work Phone: [phone] [facility] DO Work Phone: [phone] [facility] DO Work Phone: [phone] [facility] DO Work Phone: 61 [phone] [facility] DO Work Phone: 59 1 [facility] DO Work Phone: [phone] [facility] DO Work Phone: [phone] [facility] DO Work Phone: [phone] [facility] DO Work Phone: [phone] [facility] DO Work Phone: [phone] [facility] DO Work Phone: >90 >90 [facility] [place] Work Phone: Comment on above: CALCULATIONS OF LINDSEY MATED GFR ARE PERFORMED USING THE 2020 CKD-EPI STUDY REFIT EQUATION WITHOUT THE RACE VARIABLE FOR THE IDMS-TRACEABLE CREATININE METHODS.https://jasn.asnjournals.org/content/early/ASN .0342771815 BASIC METABOLIC PANELon 03-0 GFR/1.73 sq M.predicted among non-blacks MDRD (S/P/Bld) [Vol rate/Area] 90 mL/min/{1.73_m2} Normal >90 [facility] Comment on above: Result Comment: CALC ULATIONS OF ESTIMATED GFR ARE PERFORMED USING THE 2020 CKD-EPI STUDY REFIT EQUATION WITHOUT THE RACE VARIABLE FOR THE IDMS-TRACEABLE CREATININE METHODS. https://jasn.asnjournals.org/content//ASN.0121483 988 Performed By: #### T RP #### [address] [id number] HCO3 (Bld) [Moles/Vol] 25 mmol/L Normal 21 - 32 [facility] Comment on above: Performed By: #### T RP #### [address] [id number] Anion gap [Moles/Vol] 12 mmol/L Normal 10 - 20 [facility] Work Phone: Comment on above: Performed By: #### T RP #### [address] [id number] Calcium [Mass/Vol] 8.9 mg/dL Normal 8.6 - 10.3 [facility] Work Phone: Comment on above: Performed By: #### T RP #### [address] [id number] Chloride [Moles/Vol] 104 mmol/L Normal 98 - 107 [facility] Work Phone: Comment on above: Performed By: #### T [facility] #### [address] [id number] Creatinine [Mass/Vol] 0.78 mg/dL Normal 0.50 - 1.05 [facility] [place] Work Phone: Comment on above: Reference Range: 0.5 0 - 1.05 Performed By: #### T RP #### [address] [id number] Glucose [Mass/Vol] 109 mg/dL High 74 - 99 [facility] [place] Work Phone: Comment on above: Performed By: #### T RP #### [address] [id number] Potassium [Moles/Vol] 4.0 mmol/L Normal 3.5 - 5.3 [facility] [place] Work Phone: Comment on above: Performed By: #### T RP #### [address] [id number] Sodium [Moles/Vol] 137 mmol/L Normal 136 - 145 [facility] [facility] [place] Work Phone: Comment on above: Performed By: #### T RP #### [address] [id number] Urea nitrogen [Mass/Vol] 17 mg/dL Normal 6 - 23 [facility] [place] Work Phone: Comment on above: Performed By: #### T [facility] #### [address] [id number] CBCon 08-24-2022 Erythrocyte distribution width (RBC) [Ratio] 12.6 % Normal 11.5 - 14.5 [facility] Comment on above: Performed By: #### C BC #### [address] [id number] Hematocrit (Bld) [Volume fraction] 39.8 % Normal 36.0 - 46.0 [facility] Comment on above: Performed By: #### C BC #### [address] [id number] Hemoglobin (Bld) [Mass/Vol] 13.5 g/dL Normal 12.0 - 16.0 [facility] Comment on above: Performed By: #### C BC #### [address] [id number] MCHC (RBC) [Mass/Vol] 33.9 g/dL Normal 32.0 - 36.0 [facility] Comment on above: Performed By: #### C BC #### [address] [id number] MCV (RBC) [Entitic vol] 92 fL Normal 80 - 100 [facility] Comment on above: Performed By: #### C BC #### [address] [id number] Platelets (Bld) [#/Vol] 264 10*3/uL Normal 150 - 450 [facility] Comment on above: Performed By: #### C BC #### [address] [id number] RBC 4.32 x10E12/L Normal 4.00 - 5.20 [facility] Comment on above: Performed By: #### C BC #### [address] [id number] WBC (Bld) [#/Vol] 9.3 10*3/uL Normal 4.4 - 11.3 [facility] Comment on above: Performed By: #### C #### [address] [id number] Daily Progress Note-Electrop hysiologyon 08-24-2022 Daily Progress [...] day Objective Data: Objective Information: T PRBPMAPSpO2 Value36.811966/724577% Date/Time08/24 7: 7: 7: 7: 7:20 Range(36.1C [...] Last Updated: 24-Aug-2022 13:51 by Federico Wing) [facility] Daily Progress Note-Medicine on 08-24-2022 Daily Progress [...] resolved. Objective Data: Objective Information: T PRBPMAPSpO2 Value36.383897/621200% Date/Time08/24 15: 15: 15: 15: 15:18 Range(36.1C [...] Updated: 24-Aug-2022 16:43 by Skip Kelly) Normal [facility] Discharge [id number] 023 Discharge Profile2 Discharge Orders: Anticipated Discharge Date: Anticipated Discharge [id number] Hospital Providers: Provider RoleProvider Name AttendingSkip Kelly Alberto DNAR: Code Status at Discharge: Full Code Activity: activity as tolerated. Provider FINAL REVIEW of Orders: Final Review: Final Review of Medication Reconciliation and Orders Completedby Physician Reviewing Viki Kelly MD at 25-Aug-2022 13:14:58 Appointments: Follow-Up Appointment 01: Physician/Dept/ServiceDr. Wing Reason for ReferralElectrophysiology follow-up Scheduled Date/Mkbi66-Aeg-1451 11:45 [facility] office in [address] 320 Phone [phone] Other Clinician Instructions: Other Instructions: Other Clinician InstructionsPlease follow up in the [place] as discussed with EP for repeat EKGs on monday 08/28 and tuesday 08/29. You will be increasing your flecainide to 75mg twice daily on Sunday. Please call the office or return to the hospital if you have worsening chest pain, shortness of breath, if you pass out, or have any other concerning symptoms. Electronic Signatures: Felicita Bhagat (OVEN HEATER-CAR DESIGNER) (Signed 24-Aug-2022 14:30) Authored: Discharge Orders, Appointments, Gold Form - Real Estate Firm Manager Summary Skip Kelly) (Signed 25-Aug-2022 13:14) Authored: Discharge Orders, Provider FINAL REVIEW of Orders, Other Clinician Instructions Last Updated: 25-Aug-2022 13:14 by Skip Kelly) Normal [facility] Electrocardiogram 12 Leadon 08-24-2022 Electrocardiogram 12 Lead Ventricular Rate 69 Atrial Rate 69 P-R Interval 136 QRS Duration 82 Q-T Interval 398 QTC Calculation(Bazett) 426 P [place] 39 R [place] 48 T [place] 45 QRS Count 11 Q Onset 218 P Onset 150 P Offset 193 T Offset 417 QTC Fredericia 417 Diagnosis Class Borderline Abnormal Diagnosis Sinus rhythm with frequent premature ventricular complexes in a pattern of bigeminy Otherwise normal ECG When compared with ECG of 24-AUG-2022 06:30, No significant change was found Confirmed by Omid Leach ([id number]) on 08/26/2022 1:28:10 PM Normal [facility] Electrocardiogram 12 Lead Ventricular Rate 62 Atrial Rate 62 P-R Interval 162 QRS Duration 86 Q-T Interval 392 QTC Calculation(Bazett) 397 P [place] 28 R [place] 46 T [place] 42 QRS Count 10 Q Onset 219 [...] Wing ([id number]) on 08/24/2022 8:32:51 AM Normal [facility] Laboratory - Chemistry and C hemistry - challengeon 08-24-2022 CO2 [Moles/Vol] 25 mmol/L 21 - [facility]TechulonB[facility]own[facility]ice[facility] Work Phone: Laboratory - Hematology and Cell countson 08-24-2022 Erythrocyte distribution width (RBC) [Ratio] 12.6 % See Below [facility] Work Phone: Comment on above: Reference Range: 11. 5 - 14.5 Hematocrit (Bld) [Volume fraction] 39.8 % See Below [facility] [employer] Work Phone: Comment on above: Reference Range: 36. 0 - 46.0 Hemoglobin (Bld) [Mass/Vol] 13.5 g/dL See Below [facility] [employer] Work Phone: Comment on above: Reference Range: 12. 0 - 16.0 MCHC (RBC) [Mass/Vol] 33.9 g/dL See Below [facility] [place] Work Phone: Comment on above: Reference Range: 32. 0 - 36.0 MCV (RBC) [Entitic vol] 92 fL 80 - 100 [facility] [place] Work Phone: Platelets (Bld) [#/Vol] 264 10*3/uL 150 - 450 [facility] [place] Work Phone: RBC (Bld) [#/Vol] 4.32 {x10E12/L} See Below [employer] [place] Work Phone: Comment on above: Reference Range: 4.0 0 - 5.20 WBC (Bld) [#/Vol] 9.3 10*3/uL 4.4 - 11.3 [facility] [place] Work Phone: Magnesium, Serumon 3 Magnesium [Mass/Vol] 2.00 mg/dL Normal 1.60 - 2.40 [facility] Work Phone: Comment on above: Reference Range: 1.6 0 - 2.40 Performed By: #### M G #### [address] [id number] No Panel Informationon 08-24 https://[email or web address]/musescripts/museweb.dll?R etrieveTestByDateTime?Patie cwED=[id number]&Date= 023&Time=20%3a23%3a14%3a00& TestType=ECG&Site=11&Output Type=PDF&Ext=PDF [facility] DO Work Phone: Sinus rhythm with fr equent premature ventricular complexes in a pattern of bigeminy [facility] DO Work Phone: Borderline Abnormal [facility] DO Work Phone: [phone] [facility] DO Work Phone: [phone] [facility] DO Work Phone: [phone] [facility] DO Work Phone: [phone] [facility] DO Work Phone: 11 1 [facility] DO Work Phone: [phone] 1 [facility] DO Work Phone: [phone] 1 [facility] DO Work Phone: [phone] 1 [facility] DO Work Phone: [phone] [facility] DO Work Phone: [phone] 1 [facility] DO Work Phone: [phone] 1 [facility] DO Work Phone: [phone] 1 [facility] DO Work Phone: 69 1 [facility] DO Work Phone: [phone] [email or web address]/musescripts/museweb.dll?R etrieveTestByDateTime?Patie xbRL=[id number]&Date= 023&Time=06%3a30%3a53%3a00& TestType=ECG&Site=11&Output Type=PDF&Ext=PDF [facility] Work Phone: Sinus rhythm with occasional premature ventricular complexes [facility] Work Phone: Borderline Abnormal [facility] Work Phone: [phone] [facility] Work Phone: [phone] [facility] Work Phone: [phone] 1 [facility] Work Phone: [phone] 1 [facility] Work Phone: [phone] 1 [facility] Work Phone: [phone] 1 [facility] Work Phone: [phone] 1 [facility] Work Phone: [phone] 1 [facility] Work Phone: [phone] [facility] Work Phone: [phone] 1 [facility] Work Phone: [phone] 1 [facility] Work Phone: [phone] 1 [facility] Work Phone: [phone] 1 [facility] Work Phone: [phone] [facility] Work Phone: 90 {mL/min/1.73m2} >90 [facility] Work Phone: Comment on above: CALCULATIONS OF LINDSEY MATED GFR ARE PERFORMED USING THE 2020 CKD-EPI STUDY REFIT EQUATION WITHOUT THE RACE VARIABLE FOR THE IDMS-TRACEABLE CREATININE METHODS.https://jasn.asnjournals.org/content//ASN .7266136341 Order Reconciliationon 08-24 Order Reconciliation Page 1 Discharge Reconciliation Document Reconciliation Type: Discharge requested on behalf of Skip Kelly (Physician) done by Skip Kelly) Discharge - Partial Reconciliation: 24-Aug-2022 09:08 by: Kayla Shaw ([facility]) Discharge - Partial Reconciliation: 25-Aug-2022 09:53 by: Kayla Shaw ([facility]) Discharge - Partial Reconciliation: 25-Aug-2022 12:31 by: Kayla Shaw ([facility]) Discharge - Reconciliation: 25-Aug-2022 13:15 by: Skip [...] HoursClinician Notes: One now then 0900 and 23-Aug-2022 10:35 flecainide 50 mg oral [...] Enteric [facility] (more content not included)... Normal [facility] Admission Risk Screen - Adul [...] AlertFor Ebola-like Symptoms: Isolate Patient and Notify Provider/Behavioral Sciences Department Chair For Contact: Notify Provider/Behavioral Sciences Department Chair Advance Directive: Advance Directive/DNRno Advance Directive Information [...] Learning Preferencesskill demonstration Cultural Considerationsnone Developmental Considerationsnone Methodist Considerationsnone Learning Assessment (Other Learner): Other learner availableno Depression Screen: During the past month, have you often been bothered by feeling down, depressed or hopelessyes During the past month, have you often had little interest or pleasure in doing thingsno Have you had any thoughts of harming anyone elseno (1) [place] Suicide: Risk Screen Not Applicable/Able to Answerable to be screened In the Past Month: Have you wished you were or could go to sleep and not wake upno(1) In the Past Month: Have you had any actual thoughts of killing yourself no(1) Lifetime: Have you ever done, started to do, or prepared to do anything to end your lifeno [place] Suicide Risknegative Adult Nutrition Screen: Have you [...] Spiritual Screen: Are there any cultural, spiritual, mandaeism practices/values/needs that are important for us to knowno CAGE: Is this an injure (more content not included)... Normal [facility] BASIC METABOLIC PANELon Anion gap [Moles/Vol] 11 mmol/L Normal 10 - 20 [facility] Comment on above: Performed By: #### B MP #### [address] [id number] Calcium [Mass/Vol] 8.9 mg/dL Normal 8.6 - 10.3 [facility] Comment on above: Performed By: #### B MP #### [address] [id number] Chloride [Moles/Vol] 102 mmol/L Normal 98 - 107 [facility] Comment on above: Performed By: #### B MP #### [address] [id number] Creatinine [Mass/Vol] 0.92 mg/dL Normal 0.50 - 1.05 [facility] Comment on above: Performed By: #### B MP #### [address] [id number] GFR/1.73 sq M.predicted among non-blacks MDRD (S/P/Bld) [Vol rate/Area] 74 mL/min/{1.73_m2} Normal >90 [facility] Comment on above: Result Comment: CALC ULATIONS OF ESTIMATED GFR ARE PERFORMED USING THE 2020 CKD-EPI STUDY REFIT EQUATION WITHOUT THE RACE VARIABLE FOR THE IDMS-TRACEABLE CREATININE METHODS. https://jasn.asnjournals.org/content//ASN.3006879 988 Performed By: #### B MP #### [address] [id number] Glucose [Mass/Vol] 103 mg/dL High 74 - 99 [facility] Comment on above: Performed By: #### B MP #### [address] [id number] HCO3 (Bld) [Moles/Vol] 26 mmol/L Normal 21 - 32 [facility] Comment on above: Performed By: #### B MP #### [address] [id number] Potassium [Moles/Vol] 3.8 mmol/L Normal 3.5 - 5.3 [facility] Comment on above: Performed By: #### B MP #### [address] [id number] Sodium [Moles/Vol] 135 mmol/L Low 136 - 145 [facility] Comment on above: Performed By: #### B MP #### [address] [id number] Urea nitrogen [Mass/Vol] 17 mg/dL Normal 6 - 23 [facility] Comment on above: Performed By: #### B MP #### [address] [id number] CBCon 08-23-2022 Erythrocyte distribution width (RBC) [Ratio] 12.5 % Normal 11.5 - 14.5 [facility] Comment on above: Performed By: #### C BC #### [address] [id number] Hematocrit (Bld) [Volume fraction] 39.7 % Normal 36.0 - 46.0 [facility] Comment on above: Performed By: #### C BC #### [address] [id number] Hemoglobin (Bld) [Mass/Vol] 13.6 g/dL Normal 12.0 - 16.0 [facility] Comment on above: Performed By: #### C BC #### [address] [id number] MCHC (RBC) [Mass/Vol] 34.3 g/dL Normal 32.0 - 36.0 [facility] Comment on above: Performed By: #### C BC #### [address] [id number] MCV (RBC) [Entitic vol] 93 fL Normal 80 - 100 [facility] Comment on above: Performed By: #### C BC #### [address] [id number] Platelets (Bld) [#/Vol] 256 10*3/uL Normal 150 - 450 [facility] Comment on above: Performed By: #### C BC #### [address] [id number] RBC 4.25 x10E12/L Normal 4.00 - 5.20 [facility] Comment on above: Performed By: #### C BC #### [address] [id number] WBC (Bld) [#/Vol] 9.2 10*3/uL Normal 4.4 - 11.3 [facility] Comment on above: Performed By: #### C BC #### [address] [id number] Consult-Electrophysiologyon 08-23-2022 Consult-Electrophysi ology Service: Service: Electrophysiology Consult: Consult requested by (Attending Name): Skip Kelly Reason: symptomatic bradycardia, bigeminy History of Present Illness: HPI: RASHEEDA HANNA is a 51 year old Female evaluated in [facility] emergency room on 08/22/2022 secondary [...] Swelling, Hives/Urticaria Objective: Objective Information: T PRBPMAPSpO2 Value36.30682030/712638% Date/Time08/23 9: 9: 16:4408/23 9: 0:113/8 9:05 Range(36.4C - 37C ) [...] PM (more content not included)... Normal [facility] Daily Progress Note-Medicine on 08-23-2022 Daily Progress Note-Medicine Service: Medicine Subjective Data: RASHEEDA HANNA is a 51 year old Female who is Hospital Day # 2. Some bradycardia overnight. Feeling better today however, less dizziness. Still getting symptoms with positional changes however. No chest pain. No dyspnea. Objective Data: Objective Information: T PRBPMAPSpO2 Value36.63881162/600699% Date/Time08/23 14: 14: 16:443 14: 0:113/8 14:03 [...] 23-Aug-2022 16:31 by Skip Kelly) Normal [facility] Discharge Planning [id number] 0 08-23-2022 Discharge Planning Note2 Discharge Planning: Discharge DestinationHome Anticipated Discharge [id number] Discharge Planning 08/23/2022 1422 Care Transitions Note Rasheeda Hanna is a 51 year old female who was admitted to [facility] 08/22/2022 with dx of chest pain. Chart reviewed, justowriter operator spoke with patient- introduced self and explained role. Patient sitting up in bed. She is alert and oriented x3. Patient interacted well with justowriter operator and answered assessment questions appropriately. Demographics confirmed. PCP Dr. Kayla Dent who she saw in June and have follow-up in October. Pharmacy preference is [facility]. Prior to admission, lives with spouse in a 1 story home. Prior level of functioning independent no assistive device. She completed own adls and iadls. She is still working 42-50 hours a week. Securities Compliance Examiner discussed discharge needs/ concerns. She is currently denying any needs/ concerns. Her plan is home. Care Transitions to continue to monitor progression and address needs/ concerns as identified. ASHUTOSH Paulino Assessment: Discharge Planning Assessment [id number] Primary Contact Name and [phone] (spouse) He(1) Lives Withadult child(jose); dependent child(jose); spouse(1) Living Arrangementshouse(1) Stated Reason for AdmissionChest pain dizzy and SOB(1) [place] Resource/Environmental Concernsnone(1) [place] Services Anticipated at Transitionnon(1) Electronic Signatures: Lou Ferrer) (Signed 23-Aug-2022 14:34) Authored: Discharge Planning, Assessment Last Updated: 23-Aug-2022 14:34 by Lou Ferrer (HARRIET) References: 1. Data Referenced From Patient Profile - Adult v2 22-Aug-2022 22:[address] [facility] Laboratory - Chemistry and C hemistry - challengeon 08-23-2022 Anion gap [Moles/Vol] 11 mmol/L 10 - 20 [facility] Work Phone: Calcium [Mass/Vol] 8.9 mg/dL 8.6 - 10.3 [facility] Work Phone: Chloride [Moles/Vol] 102 mmol/L 98 - 107 [facility] Work Phone: CO2 [Moles/Vol] 26 mmol/L 21 - 32 [facility] [facility] [place] Work Phone: Creatinine [Mass/Vol] 0.92 mg/dL See Below [facility] [place] Work Phone: Comment on above: Reference Range: 0.5 0 - 1.05 Glucose [Mass/Vol] 103 mg/dL above high threshold 74 - 99 [facility] [place] Work Phone: Potassium [Moles/Vol] 3.8 mmol/L 3.5 - 5.3 [facility] [place] Work Phone: Sodium [Moles/Vol] 135 mmol/L below low threshold 136 - 145 [facility] [place] Work Phone: Urea nitrogen [Mass/Vol] 17 mg/dL 6 - 23 [facility] [place] Work Phone: Laboratory - Hematology and Cell countson 08-23-2022 Erythrocyte distribution width (RBC) [Ratio] 12.5 % See Below [facility] [place] Work Phone: Comment on above: Reference Range: 11. 5 - 14.5 Hematocrit (Bld) [Volume fraction] 39.7 % See Below [facility] [place] Work Phone: Comment on above: Reference Range: 36. 0 - 46.0 Hemoglobin (Bld) [Mass/Vol] 13.6 g/dL See Below [facility] [place] Work Phone: Comment on above: Reference Range: 12. 0 - 16.0 MCHC (RBC) [Mass/Vol] 34.3 g/dL See Below [facility] Work Phone: Comment on above: Reference Range: 32. 0 - 36.0 MCV (RBC) [Entitic vol] 93 fL 80 - 100 -[facility] Work Phone: Platelets (Bld) [#/Vol] 256 10*3/uL 150 - 450 -[facility] candel[facility] Work Phone: RBC (Bld) [#/Vol] 4.25 {x10E12/L} See Below -[facility] Work Phone: Comment on above: Reference Range: 4.0 0 - 5.20 WBC (Bld) [#/Vol] 9.2 10*3/uL 4.4 - 11.3 [facility] Work Phone: No Panel Informationon 08-23 74 {mL/min/1.73m2} >90 [facility] Work Phone: Comment on above: CALCULATIONS OF LINDSEY MATED GFR ARE PERFORMED USING THE 2020 CKD-EPI STUDY REFIT EQUATION WITHOUT THE RACE VARIABLE FOR THE IDMS-TRACEABLE CREATININE METHODS.https://jasn.asnjournals.org/content/early/ASN .0494004375 Patient Profile - Adult v2on 08-23-2022 Patient Profile - Adult v2 Profile: Initial Info: How to be AddressedPaula(1) Spoken Language PreferredEnglish (1) Stated Reason for AdmissionChest pain dizzy and SOB Primary Contact Name and [phone] (spouse) He Wants Family/Rep Notified of Admissionn/a; family present Notify PCPdeferred, unable to answer Informed of Patient Visiting [place]yes [place] Statusemployed Patient Belongingsremains with patient Patient Belongings Remaining with Patientcell phone/electronics; vision aids Medications Brought to Hospitalno General Health: Blood Avoidance/Restrictionsnone( 1) Previous Transfusion Reactionno(1) Weight in kg82.8 kilogram(s) Weight in uov964.5 pound(s) Weight Methodactual (measured) Scale Typestanding Height [...] From History and Physical 22-Aug-2022 17:[address] [facility] BASIC METABOLIC PANELon ANION GAP Canceled Normal [facility] Comment on above: Order Comment: TEST BASIC METABOLIC PANEL WAS CANCELLED, 08/22/2022 20:12 This order is Barbi draw. Retiming 08/22/2022 20:12. Performed By: #### T [facility] #### [address] [phone] BICARBONATE Canceled Normal [facility] Comment on above: Order Comment: TEST BASIC METABOLIC PANEL WAS CANCELLED, 08/22/2022 20:12 This order is Barbi draw. Retiming 08/22/2022 20:12. Performed By: #### T RPH[facility] #### [address] [id number] CALCIUM Canceled Normal [facility] Comment on above: Order Comment: TEST BASIC METABOLIC PANEL WAS CANCELLED, 08/22/2022 20:12 This order is Barbi draw. Retiming 08/22/2022 20:12. Performed By: #### T RPH[facility] #### [address] [id number] CHLORIDE Canceled Normal [facility] Comment on above: Order Comment: TEST BASIC METABOLIC PANEL WAS CANCELLED, 08/22/2022 20:12 This order is Barbi draw. Retiming 08/22/2022 20:12. Performed By: #### T RPH[facility] #### [address] [phone] CREATININE Canceled Normal [facility] Comment on above: Order Comment: TEST BASIC METABOLIC PANEL WAS CANCELLED, 08/22/2022 20:12 This order is Barbi draw. Retiming 08/22/2022 20:12. Performed By: #### T RPH[facility] #### [address] [id number] eGFR FEMALE Canceled Normal [facility] Comment on above: Order Comment: TEST BASIC METABOLIC PANEL WAS CANCELLED, 08/22/2022 20:12 This order is Barbi draw. Retiming 08/22/2022 20:12. Result Comment: CALC ULATIONS OF ESTIMATED GFR ARE PERFORMED USING THE 2020 CKD-EPI STUDY REFIT EQUATION WITHOUT THE RACE VARIABLE FOR THE IDMS-TRACEABLE CREATININE METHODS. https://jasn.asnjournals.org/content/early/ASN.9561575 988 Performed By: #### T RPH[facility] #### [address] [id number] eGFR MALE Canceled Normal [facility] Comment on above: Order Comment: TEST BASIC METABOLIC PANEL WAS CANCELLED, 08/22/2022 20:12 This order is Barbi draw. Retiming 08/22/2022 20:12. Result Comment: CALC ULATIONS OF ESTIMATED GFR ARE PERFORMED USING THE 2020 CKD-EPI STUDY REFIT EQUATION WITHOUT THE RACE VARIABLE FOR THE IDMS-TRACEABLE CREATININE METHODS. https://jasn.asnjournals.org/content/early//ASN.8729700 988 Performed By: #### T RPH[facility] #### [address] [id number] GLUCOSE Canceled Normal [facility] Comment on above: Order Comment: TEST BASIC METABOLIC PANEL WAS CANCELLED, 08/22/2022 20:12 This order is Barbi draw. Retiming 08/22/2022 20:12. Performed By: #### T RPH[facility] #### [address] [id number] POTASSIUM Canceled Normal [facility] Comment on above: Order Comment: TEST BASIC METABOLIC PANEL WAS CANCELLED, 08/22/2022 20:12 This order is Barbi draw. Retiming 08/22/2022 20:12. Performed By: #### T RPHS #### [address], [place] [phone] SODIUM Canceled Normal [facility] Comment on above: Order Comment: TEST BASIC METABOLIC PANEL WAS CANCELLED, 08/22/2022 20:12 This order is Barbi draw. Retiming 08/22/2022 20:12. Performed By: #### T RPH[facility] #### [address] [id number] UREA NITROGEN Canceled Normal [facility] Comment on above: Order Comment: TEST BASIC METABOLIC PANEL WAS CANCELLED, 08/22/2022 20:12 This order is Barbi draw. Retiming 08/22/2022 20:12. Performed By: #### T RPHS #### [address], [place] [phone] CBCon 08-22-[address] [facility] Comment on above: Order Comment: TEST CBC WAS CANCELLED, 08/22/2022 20:12 This order is for AM draw. Iavjjwjc25/07/2023 20:12. Performed By: #### M G #### [address] [id number] HGB Canceled Normal [facility] Comment on above: Order Comment: TEST CBC WAS CANCELLED, 08/22/2022 20:12 This order is for AM draw. Ldanjuay85/07/2023 20:12. Performed By: #### M G #### [address], [place] [phone] MCHC Canceled Normal [facility] Comment on above: Order Comment: TEST CBC WAS CANCELLED, 08/22/2022 20:12 This order is for AM draw. Peejnqix47/07/2023 20:12. Performed By: #### M G #### [address] [phone] MCV Canceled Normal [facility] Comment on above: Order Comment: TEST CBC WAS CANCELLED, 08/22/2022 20:12 This order is for AM draw. Bszallyq77/07/2023 20:12. Performed By: #### M G #### [address] [id number] NUCLEATED RBC Canceled Normal [facility] Comment on above: Order Comment: TEST CBC WAS CANCELLED, 08/22/2022 20:12 This order is for AM draw. Jhllhusm57/07/2023 20:12. Performed By: #### M G #### [address] [id number] PLT Canceled Normal [facility] Comment on above: Order Comment: TEST CBC WAS CANCELLED, 08/22/2022 20:12 This order is for AM draw. Wlchrigi71/07/2023 20:12. Performed By: #### M G #### [address] [phone] RBC Canceled Normal [facility] Comment on above: Order Comment: TEST CBC WAS CANCELLED, 08/22/2022 20:12 This order is for AM draw. Kczdknug44/07/2023 20:12. Performed By: #### M G #### [address] [id number] RDW-CV Canceled Normal [facility] Comment on above: Order Comment: TEST CBC WAS CANCELLED, 08/22/2022 20:12 This order is for AM draw. Cmfzwaof01/07/2023 20:12. Performed By: #### M G #### [address] [id number] WBC Canceled Normal [facility] Comment on above: Order Comment: TEST CBC WAS CANCELLED, 08/22/2022 20:12 This order is for AM draw. Gmxawrfx42/07/2023 20:12. Performed By: #### M G #### [address] [id number] CBC AND DIFFERENTIALon 08-22 % AUTOMATED IMMATURE GRAN 0.4 % Normal 0.0 - 0.9 [facility] Comment on above: Result Comment: Patricia ture Granulocyte Count (IG) includes promyelocytes, myelocytes and metamyelocytes but does not include bands. Percent differential counts (%) should be interpreted in the context of the absolute cell counts (cells/L). Performed By: #### T [facility] #### [address] [id number] Basophils (Bld) [#/Vol] 0.07 10*3/uL Normal 0.00 - 0.10 [facility] Comment on above: Performed By: #### T RP #### [address] [id number] Basophils/100 WBC (Bld) 0.7 % Normal 0.0 - 2.0 [facility] Comment on above: Performed By: #### T RPHS #### [address] [id number] Eosinophils (Bld) [#/Vol] 0.12 10*3/uL Normal 0.00 - 0.70 [facility] Comment on above: Performed By: #### T RPHS #### [address] [id number] Eosinophils/100 WBC (Bld) 1.2 % Normal 0.0 - 6.0 [facility] Comment on above: Performed By: #### T RPHS #### [address] [id number] Erythrocyte distribution width (RBC) [Ratio] 12.4 % Normal 11.5 - 14.5 [facility] Comment on above: Performed By: #### T RPHS #### [address] [id number] Hematocrit (Bld) [Volume fraction] 42.8 % Normal 36.0 - 46.0 [facility] Comment on above: Performed By: #### T RPHS #### [address] [id number] Hemoglobin (Bld) [Mass/Vol] 14.6 g/dL Normal 12.0 - 16.0 [facility] Comment on above: Performed By: #### T RPHS #### [address] [id number] Lymphocytes (Bld) [#/Vol] 2.38 10*3/uL Normal 1.20 - 4.80 [facility] Comment on above: Performed By: #### T RPHS #### [address] [id number] Lymphocytes/100 WBC (Bld) 22.9 % Normal 13.0 - 44.0 [facility] Comment on above: Performed By: #### T RPHS #### [address] [id number] MCHC (RBC) [Mass/Vol] 34.1 g/dL Normal 32.0 - 36.0 [facility] Comment on above: Performed By: #### T RPHS #### [address] [id number] MCV (RBC) [Entitic vol] 93 fL Normal 80 - 100 [facility] Comment on above: Performed By: #### T RPHS #### [address] [id number] Monocytes (Bld) [#/Vol] 0.80 10*3/uL Normal 0.10 - 1.00 [facility] Comment on above: Performed By: #### T RPHS #### [address] [id number] Monocytes/100 WBC (Bld) 7.7 % Normal 2.0 - 10.0 [facility] Comment on above: Performed By: #### T RPHS #### [address] [id number] Neutrophils (Bld) [#/Vol] 7.00 10*3/uL Normal 1.20 - 7.70 [facility] Comment on above: Performed By: #### T RP #### [address] [id number] Neutrophils/100 WBC (Bld) 67.1 % Normal 40.0 - 80.0 [facility] Comment on above: Performed By: #### T RPHS #### [address] [id number] Platelets (Bld) [#/Vol] 285 10*3/uL Normal 150 - 450 [facility] Comment on above: Performed By: #### T RPHS #### [address] [id number] RBC 4.58 x10E12/L Normal 4.00 - 5.20 [facility] Comment on above: Performed By: #### T RPHS #### [address] [id number] WBC (Bld) [#/Vol] 10.4 10*3/uL Normal 4.4 - 11.3 [facility] Comment on above: Performed By: #### T RPHS #### [address] [id number] COMPREHENSIVE PANELon 2022 Albumin [Mass/Vol] 4.3 g/dL Normal 3.4 - 5.0 [facility] Comment on above: Performed By: #### T RPHS #### [address] [id number] ALP [Catalytic activity/Vol] 80 U/L Normal 33 - 110 [facility] Comment on above: Performed By: #### T RPHS #### [address] [id number] ALT [Catalytic activity/Vol] 29 U/L Normal 7 - 45 [facility] Comment on above: Result Comment: Selam ents treated with Sulfasalazine may generate falsely decreased results for ALT. Performed By: #### T RPHS #### [address] [id number] Anion gap [Moles/Vol] 13 mmol/L Normal 10 - 20 [facility] Comment on above: Performed By: #### T RPHS #### [address] [id number] AST [Catalytic activity/Vol] 22 U/L Normal 9 - 39 [facility] Comment on above: Performed By: #### T RPHS #### [address] [id number] Bilirubin [Mass/Vol] 0.4 mg/dL Normal 0.0 - 1.2 [facility] Comment on above: Performed By: #### T RPHS #### [address] [id number] Calcium [Mass/Vol] 9.4 mg/dL Normal 8.6 - 10.3 [facility] Comment on above: Performed By: #### T RPHS #### [address] [id number] Chloride [Moles/Vol] 102 mmol/L Normal 98 - 107 [facility] Comment on above: Performed By: #### T RPHS #### [address] [id number] Creatinine [Mass/Vol] 0.93 mg/dL Normal 0.50 - 1.05 [facility] Comment on above: Performed By: #### T RPHS #### [address] [id number] GFR/1.73 sq M.predicted among non-blacks MDRD (S/P/Bld) [Vol rate/Area] 73 mL/min/{1.73_m2} Normal >90 [facility] Comment on above: Result Comment: CALC ULATIONS OF ESTIMATED GFR ARE PERFORMED USING THE 2020 CKD-EPI STUDY REFIT EQUATION WITHOUT THE RACE VARIABLE FOR THE IDMS-TRACEABLE CREATININE METHODS. https://jasn.asnjournals.org/content/early//ASN.2716024 988 Performed By: #### T RPHS #### [address] [id number] Glucose [Mass/Vol] 92 mg/dL Normal 74 - 99 [facility] Comment on above: Performed By: #### T RPHS #### [address] [id number] HCO3 (Bld) [Moles/Vol] 28 mmol/L Normal 21 - 32 [facility] Comment on above: Performed By: #### T RPHS #### [address] [id number] Potassium [Moles/Vol] 3.8 mmol/L Normal 3.5 - 5.3 [facility] Comment on above: Performed By: #### T RPHS #### [address] [id number] Protein [Mass/Vol] 7.8 g/dL Normal 6.4 - 8.2 [facility] Comment on above: Performed By: #### T RP #### [address] [id number] Sodium [Moles/Vol] 139 mmol/L Normal 136 - 145 [facility] Comment on above: Performed By: #### T RP #### [address] [id number] Urea nitrogen [Mass/Vol] 16 mg/dL Normal 6 - 23 [facility] Comment on above: Performed By: #### T RP #### [address] [id number] Complete Blood Count + Diffe rentialon 08-22-2022 Basophils/100 WBC (Bld) 0.7 % 0.0 - 2.0 [facility] Work Phone: Erythrocyte distribution width (RBC) [Ratio] 12.4 % See Below [facility] Work Phone: Comment on above: Reference Range: 11. 5 - 14.5 Hematocrit (Bld) [Volume fraction] 42.8 % See Below [facility] Work Phone: Comment on above: Reference Range: 36. 0 - 46.0 Hemoglobin (Bld) [Mass/Vol] 14.6 g/dL See Below [facility] Work Phone: Comment on above: Reference Range: 12. 0 - 16.0 Lymphocytes/100 WBC (Bld) 22.9 % See Below [facility] Work Phone: Comment on above: Reference Range: 13. 0 - 44.0 MCHC (RBC) [Mass/Vol] 34.1 g/dL See Below [facility] Work Phone: Comment on above: Reference Range: 32. 0 - 36.0 MCV (RBC) [Entitic vol] 93 fL 80 - 100 [facility] Work Phone: Monocytes/100 WBC (Bld) 7.7 % 2.0 - 10.0 [facility] [place] Work Phone: Neutrophils/100 WBC (Bld) 67.1 % See Below [facility] [place] [place] Work Phone: [phone] Comment on above: Reference Range: 40. 0 - 80.0 Platelets (Bld) [#/Vol] 285 10*3/uL 150 - 450 [facility] [place] Work Phone: RBC (Bld) [#/Vol] 4.58 {x10E12/L} See Below [facility] [place] Work Phone: Comment on above: Reference Range: 4.0 0 - 5.20 WBC (Bld) [#/Vol] 10.4 10*3/uL 4.4 - 11.3 [facility] [place] Work Phone: Complete Blood Count + Differential 0.07 {x10E9/L} See Below [facility] [place] Work Phone: Comment on above: Reference Range: 0.0 0 - 0.10 Complete Blood Count + Differential 0.12 {x10E9/L} See Below [facility] [place] Work Phone: Comment on above: Reference Range: 0.0 0 - 0.70 Complete Blood Count + Differential 0.80 {x10E9/L} See Below [facility] [place] Work Phone: Comment on above: Reference Range: 0.1 0 - 1.00 Complete Blood Count + Differential 2.38 {x10E9/L} See Below [facility] [place] Work Phone: Comment on above: Reference Range: 1.2 0 - 4.80 Complete Blood Count + Differential 7.00 {x10E9/L} See Below [facility] [place] Work Phone: Comment on above: Reference Range: 1.2 0 - 7.70 Complete Blood Count + Differential 1.2 % 0.0 - 6.0 [facility] [place] Work Phone: Complete Blood Count + Differential 0.4 % 0.0 - 0.9 [facility] Work Phone: Comment on above: Immature [...] You may also be contacted by the [facility] to see if any of [...] or Naproxen (Aleve) can also be used. Ymny-sfg-wpvmirm cough and cold medicines can be used according to the instructions on the package. Some zijp-kux-eqgakul medicines also contain acetaminophen. Make sure you [...] water are not available, use alcohol-based hand behavioral health rn. Avoid touching your eyes, nose, and mouth [...] wan (more content not included)... Normal [facility] Electrocardiogram 12 Leadon 08-22-2022 Electrocardiogram 12 Lead Ventricular Rate 80 Atrial Rate 80 QRS Duration 132 Q-T Interval 400 QTC Calculation(Bazett) 461 R [place] 74 T [place] -9 QRS Count 14 Q Onset 207 T Offset 407 QTC Fredericia 440 Diagnosis Class Abnormal Diagnosis sinus rhythm with frequent PAC's in a pattern of atrial bigeminy Nonspecific intraventricular block Cannot rule out Anteroseptal infarct , age undetermined T wave abnormality, consider inferior ischemia Abnormal ECG Confirmed by Federico Wing ([id number]) on 08/22/2022 3:25:30 PM Normal [facility] INFLUENZA A/B, COVID 2019 PC R,SYMPTOMATICon 08-22-2022 INFLUENZA A, PCR Not detected Normal Not Detected [facility] Comment on above: Result Comment: Resp iratory virus testing is performed routinely by PCR for Influenza A/B and RSV. Not Detected results do not preclude Influenza A/B or RSV infections since the adequacy of sample collection or low viral burden may impact the clinical sensitivity of this test method. Performed By: #### T [facility] #### [address] [id number] INFLUENZA B, PCR Not detected Normal Not Detected [facility] Comment on above: Result Comment: Resp iratory virus testing is performed routinely by PCR for Influenza A/B and RSV. Not Detected results do not preclude Influenza A/B or RSV infections since the adequacy of sample collection or low viral burden may impact the clinical sensitivity of this test method. Performed By: #### T [facility] #### [address] [id number] SARS-CoV-2 (COVID-19) RNA REYNALDO+probe Ql (Unsp spec) Not detected Normal Not Detected [facility] Comment on above: Result Comment: . This test has received [facility] Emergency Use Authorization (EUA) and has been verified by [facility]. This test is only authorized for the duration of time that circumstances exist to justify the authorization of the emergency use of in vitro diagnostic tests for the detection of SARS-CoV-2 virus and/or diagnosis of COVID-19 infection under section 564(b)(1) of the Act, 21 U.S.C. 360bbb-3(b)(1), unless the authorization is terminated or revoked sooner. [facility] is certified under CLIA-88 as qualified to perform high complexity testing. Testing is performed in the [facility] laboratory located at [address] [place] [address]. SARS-CoV-2/Flu/RSV Multiplex Test: Fact sheet for providers: https://www.fda.gov/media/088452/download Fact sheet for patients: https://www.fda.gov/media/479497/download Performed By: #### T [facility] #### [address] [id number] Lab Specimen Source Nasal, Nasopharyngeal Normal [facility] Comment on above: Performed By: #### T [facility] #### [address] [id number] INFLUENZA A/B, COVID 2019 PCR,SYMPTOMATIC Not detected See Below -[facility] Work Phone: Comment on above: Reference Range: Not Detected.This test has received [facility] Emergency Use Authorization (EUA) and has been verified by [facility]. This test is only authorized for the duration of time that circumstances exist to justify the authorization of the emergency use of in vitro diagnostic tests for the detection of SARS-CoV-2 virus and/or diagnosis of COVID-19 infection under section 564(b)(1) of the Act, 21 U.S.C. 360bbb-3(b)(1), unless the authorization is terminated or revoked sooner. [facility] is certified under CLIA-88 as qualified to perform high complexity testing. Testing is performed in the [facility] laboratory located at [address] [place] [address].SARS-CoV-2/Flu/RSV Multiplex Test: Fact sheet for providers: https://www.fda.gov/media/465572/downloadFact sheet for patients: https://www.fda.gov/media/151093/download Reference Range: Not Detected Respiratory virus testing [...] dye [Mass/Vol] 4.3 g/dL 3.4 - 5.0 [facility] Work Phone: ALP [Catalytic activity/Vol] 80 U/L 33 - 110 [facility] Work Phone: ALT With P-5'-P [Catalytic activity/Vol] 29 U/L 7 - 45 [facility] Work Phone: Comment on above: Patients treated wit h Sulfasalazine may generate falsely decreased results for ALT. Anion gap [Moles/Vol] 13 mmol/L 10 - 20 [facility] [place] Work Phone: AST With P-5'-P [Catalytic activity/Vol] 22 U/L 9 - 39 [facility] [place] Work Phone: Bilirubin [Mass/Vol] 0.4 mg/dL 0.0 - 1.2 [facility] [facility] [place] Work Phone: Calcium [Mass/Vol] 9.4 mg/dL 8.6 - 10.3 [facility] [facility] [place] Work Phone: Chloride [Moles/Vol] 102 mmol/L 98 - 107 [facility] [facility] [place] Work Phone: CO2 [Moles/Vol] 28 mmol/L 21 - 32 [facility] [place] Work Phone: Creatinine [Mass/Vol] 0.93 mg/dL See Below [facility] [place] Work Phone: Comment on above: Reference Range: 0.5 0 - 1.05 Glucose [Mass/Vol] 92 mg/dL 74 - 99 [facility] [place] Work Phone: Potassium [Moles/Vol] 3.8 mmol/L 3.5 - 5.3 [facility] [place] Work Phone: Protein [Mass/Vol] 7.8 g/dL 6.4 - 8.2 [facility] [facility] [place] Work Phone: Sodium [Moles/Vol] 139 mmol/L 136 - 145 [facility] [place] Work Phone: Urea nitrogen [Mass/Vol] 16 mg/dL 6 - 23 [facility] [place] Work Phone: Laboratory - Coagulationon 0 3- INR Coag (PPP) [Relative time] 1.1 {INR} 0.9 - 1.1 [facility] [place] Work Phone: PT Coag (PPP) [Time] 12.6 s 9.8 - 13.4 [place] [facility] [place] Work Phone: MAGNESIUMon 08-22-2022 Magnesium [Mass/Vol] 2.05 mg/dL Normal 1.60 - 2.40 [facility] Comment on above: Performed By: #### M G #### [address] [id number] Magnesium, Serumon 3 Magnesium [Mass/Vol] 2.05 mg/dL See Below [facility] [facility] [place] Work Phone: Comment on above: Reference Range: 1.6 0 - 2.40 No Panel Informationon 08-22 73 {mL/min/1.73m2} >90 [facility] [facility] [place] Work Phone: Comment on above: CALCULATIONS OF LINDSEY MATED GFR ARE PERFORMED USING THE 2020 CKD-EPI STUDY REFIT EQUATION WITHOUT THE RACE VARIABLE FOR THE IDMS-TRACEABLE CREATININE METHODS.https://jasn.asnjournals.org/content/early/ASN .1220771296 https://MUSEXPRDWE B01:808 0/musescripts/museweb.dll?R etrieveTestByDateTime?Patie vlIE=[id number]&Date= 023&Time=14%3a40%3a33%3a00& TestType=ECG&Site=11&Output Type=PDF&Ext=PDF [facility] [facility] [place] Work Phone: sinus rhythm with fr equent PAC's in a pattern of atrial bigeminy [facility] [facility] [place] Work Phone: Abnormal [facility] [facility] [place] Work Phone: [phone] [facility] [facility] [place] Work Phone: [phone] [facility] [facility] [place] Work Phone: [phone] -[facility] [facility] [place] Work Phone: [phone] 1 -[facility] Work Phone: [phone] [facility] Work Phone: [phone] [facility] Work Phone: [phone] [facility] Work Phone: [phone] [facility] Work Phone: [phone] [facility] Work Phone: [phone] [facility] Work Phone: Order Reconciliationon 08-22 Order Reconciliation Page 1 Admission Reconciliation Document Reconciliation Type: ED to Observation requested on behalf of Brian Curran (Physician) done by Brian Curran) ED to Observation - Partial Reconciliation: 22-Aug-2022 17:56 by: Skip Kelly) ED to Observation - AutoLinked: 22-Aug-2022 20:30 by: [employer], PSCAZervruthie (ADMIN) ED to Observation - Reconciliation: 22-Aug-2022 20:44 by: Brian Curran) ED to Observation - Reset to Incomplete: 23-Aug-2022 19:31 by: Brian Curran) ED to Observation - Reconciliation: 23-Aug-2022 19:32 by: Brian Curran) Home MedicationsEnteredLast Dose TakenReconciled with current Order Reconciliation Comment/ Additional Information Aspirin Low Dose 81 orally once a [id number] Aspirin Chewable Tablet, ChewableDOSE = 81 mg [...] milliliter(s) injectable once a day, As Needed [id number] Reviewed and Held ferrous sulfate 200 mg (65 mg elemental iron) oral tablet 2 tab(s) orally once a [id number] Reviewed and Held metoprolol succinate 25 mg oral tablet, extended release 1 tab(s) orally once a [id number] Reviewed and Held Multiple Vitamins oral tablet 1 tab(s) orally once a [id number] Reviewed and Held omeprazole 40 mg oral delayed release capsule 1 cap(s) orally once a day 22-Aug-2022 Pantoprazole Enteric Coated Tablet (PROTONIX)DOSE = 40 mg Oral Dailyomeprazole 40 mg oral delayed release capsule continued as the inpatient order Pantoprazole sertraline 50 mg oral tablet 1 tab(s) orally once a [id number] Sertraline Tablet (ZOLOFT)DOSE = 50 mg Oral Dailysertraline 50 mg oral tablet continued as the inpatient order Sertraline solifenacin 5 mg oral tablet 1 tab(s) orally once a [id number] Reviewed and Held Vitamin D3 1000 intl [...] 8 Hours and as Needed Normal [facility] PT/INRon 08-22-2022 PT Coag (PPP) [Time] 12.6 s Normal 9.8 - 13.4 [facility] Comment on above: Performed By: #### T [facility] #### [facility] [address] [place], [place] [id number] PT, INR 1.1 Normal 0.9 - 1.1 [facility] Comment on above: Performed By: #### T [facility] #### [facility] [address] [place], [place] [id number] Provider Note - ED v3on 03 Provider [...] results: Troponin I, High Sensitivity Trending View [id number] 16:27:00 22-Aug-2022 15:09:00 Troponin I, High Sensitivity3 [...] Authorization (EUA) and has been verified by [facility]. This test is only authorized for the duration of time that circumsta Complete Blood Count + Differential 22-Aug-2022 15:09:00 ResultValue White Blood Cell Count 10.4 Red Blood Cell Count 4.58 HGB 14.6 HCT 42.8 MCV 93 MCHC 34.1 PLT 285 RDW-CV 12.4 Neutrophil % 67.1 Immature Granulocytes % 0.4 Lymphocyt (more content not included)... Normal [facility] Radiologyon 08-22-2022 XR Chest Single view Normal MP-N orth [facility] [place] Work Phone: TROPONIN I, HIGH SENSITIVITY on 08-22-2022 TROPONIN I, HIGH SENSITIVITY 3 ng/L Normal 0 - 13 [facility] Comment on above: Result Comment: [...] methodology at [facility] than at other [facility]. Direct result comparisons should only be made within the same method. Performed By: #### T [facility] #### [address] [place], [place] [id number] Tropinin I.cardiac panel High sensitivity method 3 ng/L 0 - 13 -[facility] [place] Work Phone: Comment on above: .Less than [...] methodology at [facility] than at other [facility]. Direct result comparisons should only be made within the same method. TROPONIN I, HIGH SENSITIVITY 3 ng/L Normal 0 - 13 [facility] Comment on above: Result Comment: [...] methodology at [facility] than at other [facility]. Direct result comparisons should only be made within the same method. Performed By: #### M G #### [facility] [address] [place], [place] [id number] TROPONIN I, HIGH SENSITIVITY 3 ng/L Normal 0 - 13 [facility] Comment on above: Result Comment: [...] methodology at [facility] than at other [facility]. Direct result comparisons should only be made within the same method. Performed By: #### T [facility] #### [address] [id number] Tropinin I.cardiac panel High sensitivity method 3 ng/L 0 - 13 [facility] Work Phone: Comment on above: .Less than [...] methodology at [facility] than at other [facility]. Direct result comparisons should only be made within the same method. Tropinin I.cardiac panel High sensitivity method 3 ng/L 0 - 13 [facility] Work Phone: Comment on above: .Less than [...] methodology at [facility] than at other [facility]. Direct result comparisons should only be made [...] BMI (kg/m2): 35.736 Calculated BSA (m2) 1.87 [place] Coma Scale: Best Eye Response: (E4) spontaneous Best Motor Response: (M6) obeys commands Best Verbal Response: (V5) oriented [place] Score: 15 Allergies: yes Patient has homicidal [...] Last Updated: 22-Aug-2022 14:49 by Michelle Herrera) Normal [facility] Office Visit (Cardiology)on 08-18-2022 Follow-up [...] Use Screening; Status:Complete; Done: 18Aug2022 Patient Instructions [email or web address] PLEASE BRING ALL MEDICATIONS IN ORIGINAL BOTTLES [...] for the new patient portal platform through [facility]. If you have not received an [...] the decision made by me. 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 (more content not included)... Normal [facility] Tobacco Screening.on 023 Adult depression screening assessment No [facility] [address] [facility] Work Phone: Fall risk assessment a) No falls within the last year [facility] [address] DO Work Phone: Tobacco use status [facility] b) No [facility] [address] DO Work Phone: CARDIAC ELIA 3-6on 3 CK [Catalytic activity/Vol] 110 U/L Normal 26-192 [facility] Comment on above: Performed By: #### B MP, MG #### [facility] [address] [place] [address] Dr. Betsy Velazquez CK.MB [Mass/Vol] 1.74 ng/mL Normal <=3.60 [facility] Comment on above: Performed By: #### B MP, MG #### [facility] [address] [place] [address] Dr. Betsy Velazquez HSTROP 6.3 pg/mL Normal 4.0-51.3 [facility] Comment on above: Result Comment: CUT- OFF POINTS HAVE BEEN ESTABLISHED BASED ON THE FOURTH UNIVERSAL DEFINITIONS OF MYOCARDIAL INFARCTION. THE UPPER REFERENCE LIMIT (URL) OF TROPONIN, DEFINED THE 99TH PERCENTILE OF cTnI DISTRIBUTION IN A REFERENCE POPULATION, HAS BEEN CONFIRMED THE DECISION THRESHOLD FOR ME DIAGNOSIS. Performed By: #### B MP, MG #### [facility] [address] [place] [address] Dr. Betsy Velazquez CK [Catalytic activity/Vol] 123 U/L Normal 26-192 [facility] Comment on above: Performed By: #### C MREP #### [facility] [address] [address] [address] Betsy CALDWELL.MB [Mass/Vol] 1.90 ng/mL Normal <=3.60 [facility] Comment on above: Performed By: #### C MREP #### [facility] [address] [place] [address] Dr. Betsy Velazquez HSTROP 5.9 pg/mL Normal 4.0-51.3 [facility] Comment on above: Result Comment: CUT- OFF POINTS HAVE BEEN ESTABLISHED BASED ON THE FOURTH UNIVERSAL DEFINITIONS OF MYOCARDIAL INFARCTION. THE UPPER REFERENCE LIMIT (URL) OF TROPONIN, DEFINED THE 99TH PERCENTILE OF cTnI DISTRIBUTION IN A REFERENCE POPULATION, HAS BEEN CONFIRMED THE DECISION THRESHOLD FOR ME DIAGNOSIS. Performed By: #### C MREP #### [facility] [address] [place] [address] Dr. Betsy Velazquez CBC AUTO DIFFon 06-29-2022 BASO # 0.1 103/ul Normal 0.0-0.1 [facility] Comment on above: Performed By: #### C BC #### [facility] [address] [place] [address] Dr. Betsy Velazquez Basophils/100 WBC (Bld) 0.7 % Normal 0.2-2.0 [facility] Comment on above: Performed By: #### C BC #### [facility] [address] [place] [address] Dr. Betsy Velazquez EO # 0.1 103/ul Normal 0.0-0.7 [facility] Comment on above: Performed By: #### C BC #### [facility] [address] [place] [address] Dr. Betsy Velazquez Eosinophils/100 WBC (Bld) 1.4 % Normal 0.9-7.0 [facility] Comment on above: Performed By: #### C BC #### [facility] [address] [place] [address] Dr. Betsy Velazquez Erythrocyte distribution width (RBC) [Ratio] 12.8 % Normal 11.0-15.0 [facility] Comment on above: Performed By: #### C BC #### [facility] [address] [place] [address] Dr. Betsy Velazquez Hematocrit (Bld) [Volume fraction] 41.4 % Normal 36.0-48.0 [facility] Comment on above: Performed By: #### C BC #### [facility] [address] [place] [address] Dr. Betsy Velazquez Hemoglobin (Bld) [Mass/Vol] 13.4 g/dL Normal 12.0-16.0 [facility] Comment on above: Performed By: #### C BC #### [facility] [address] [place] [address] Dr. Betsy Velazquez IG # 0.04 10e3/ul Critically high 0.00-0.03 [facility] Comment on above: Performed By: #### C BC #### [facility] [address] [place] [address] Dr. Betys Velazquez IG % 0.4 % Normal 0.0-0.5 [facility] Comment on above: Performed By: #### C BC #### [facility] [address] [place] [address] Dr. Betsy Velazquez LYMPH # 2.6 103/ul Normal 1.2-3.8 [facility] Comment on above: Performed By: #### C BC #### [facility] [address] [place] [address] Dr. Betsy Velazquez Lymphocytes/100 WBC (Bld) 26.5 % Normal 20.5-60.0 [facility] Comment on above: Performed By: #### C BC #### [facility] [address] [place] [address] Dr. Betsy Velazquez MANUAL DIFF REQ NO Normal [facility] Comment on above: Performed By: #### C BC #### [facility] [address] [place] [address] Dr. Betsy Velazquez MCH (RBC) [Entitic mass] 31.5 pg Normal 26.7-34.0 [facility] Comment on above: Performed By: #### C BC #### [facility] [address] [place] [address] Dr. Betsy Velazquez MCHC (RBC) [Mass/Vol] 32.4 g/dL Normal 29.9-35.2 [facility] Comment on above: Performed By: #### C BC #### [facility] [address] [place] [address] Dr. Betsy Velazquez MCV (RBC) [Entitic vol] 97.2 fL Normal 81.0-99.0 [facility] Comment on above: Performed By: #### C BC #### [facility] [address] [place] [address] Dr. Betsy Velazquez MONO # 0.8 103/ul Normal 0.3-0.8 [facility] Comment on above: Performed By: #### C BC #### [facility] [address] [place] [address] Dr. Betsy Velazquez Monocytes/100 WBC (Bld) 7.6 % Normal 1.7-12.0 [facility] Comment on above: Performed By: #### C BC #### [facility] [address] [place] [address] Dr. Betsy Velazquez NEUT # 6.3 103/ul Normal 1.4-6.5 [facility] Comment on above: Performed By: #### C BC #### [facility] [address] [place] [address] Dr. Betsy Velazquez Neutrophils/100 WBC (Bld) 63.4 % Normal 43.0-75.0 [facility] Comment on above: Performed By: #### C BC #### [facility] [address] [place] [address] Dr. Betsy Velazquez Platelet mean volume (Bld) [Entitic vol] 11.3 fL Normal 9.5-13.5 [facility] Comment on above: Performed By: #### C BC #### [facility] [address] [place] [address] Dr. Betsy Velazquez PLT 258 103/ul Normal 150-450 [facility] Comment on above: Performed By: #### C BC #### [facility] [address] [place] [address] Dr. Betsy Velazquez RBC 4.26 106/ul Normal 4.20-5.40 [facility] Comment on above: Performed By: #### C BC #### [facility] [address] [place] [address] Dr. Betsy Velazquez WBC 10.0 103/ul Normal 4.0-11.0 [facility] Comment on above: Performed By: #### C BC #### [facility] [address] [place] [address] Dr. Betsy Velazquez Covid-19 PCR (CVDTB)on 06-18 SARS-CoV-2 (COVID-19) RNA REYNALDO+probe Ql (Unsp spec) Not detected Normal NOT DETECTED [facility] Comment on above: Result Comment: When diagnostic [...] for this test is supported by the Apartment Maintenance Technician of Health and Human Service's declaration that [...] longer be used). Performed By: #### [facility] #### [facility] [address] [address] [address] Betsy Velazquez ECHO LIMITED STUDYon 023 ECHO LIMITED STUDY Patient: SARAH HANNA Exam Date: 06/29/2022 : 1970 Gender:F Ordering : BONY SOLARES Admission #: [id number] Family : KAYLA DENT Order #: [id number] CLICK HERE TO VIEW EXAM ECHOCARDIOGRAM REPORT [...] Martinez M.D. on 06/30/2022 at 13:52 Normal [facility] GLYCOHEMOGLOBIN A1Con 2022 ADA RECOMMENDATION SEE BELOW Normal [facility] Comment on above: Result Comment: ADA RECOMMENDED LIMIT 4.0 - 6.0 ADA THERAPEUTIC TARGET < 7.0 ACTION SUGGESTED > 7.0 Performed By: #### B MP, MG #### [facility] [address] [place], [place] [address] Dr. Betsy Velazquez Glucose [Mass/Vol] 120 mg/dL Normal [facility] Comment on above: Performed By: #### B MP, MG #### [facility] [address] [place], [place] [address] Dr. Betsy Velazquez HbA1c (Bld) [Mass fraction] 5.8 % Normal 4.5-6.2 [facility] Comment on above: Performed By: #### B MP, MG #### [facility] [address] [address] [address] Betsy Velazquez LIPID PROFILEon 06-29-2022 CHOL-HDL RATIO NORM SEE BELOW Normal [facility] Comment on above: Result Comment: 3.3 - 4.4 LOW RISK 4.4 - 7.1 AVERAGE RISK 7.1 - 11.0 MODERATE RISK >11.0 HIGH RISK Performed By: #### L IPID, TSH #### [facility] [address] [address] [address] Betsy Velazquez Cholesterol [Mass/Vol] 168 mg/dL Normal <=200 [facility] Comment on above: Performed By: #### L IPID, TSH #### [facility] [address] [place] [address] Dr. Betsy Velazquez Cholesterol in HDL [Mass/Vol] 55 mg/dL Normal 40-60 [facility] Comment on above: Performed By: #### L IPID, TSH #### [facility] [address] [place] [address] Dr. Betsy Velazquez Cholesterol in LDL [Mass/Vol] 97.0 mg/dL Normal [facility] Comment on above: Performed By: #### L IPID, TSH #### [facility] [address] [place] [address] Dr. Betsy Velazquez Cholesterol.total/Ch olesterol in HDL [Mass ratio] 3.1 {ratio} Normal [facility] Comment on above: Performed By: #### L IPID, TSH #### [facility] [address] [place] [address] Dr. Betsy Velazquez HDL NORMAL > or = 60 mg/dl - LO W CARDIOVASCULAR RISK <40 mg/dl - HIGH CARDIOVASCULAR RISK Normal [facility] Comment on above: Performed By: #### L IPID, TSH #### [facility] [address] [place] [address] Dr. Betsy Velazquez LDL CALC NORMAL SEE BELOW Normal [facility] Comment on above: Result Comment: <100 mg/dl OPTIMAL 100 - 129 mg/dl NEAR OR ABOVE OPTIMAL 130 - 159 mg/dl BORDERLINE HIGH 160 - 189 mg/dl HIGH >190 mg/dl VERY HIGH Performed By: #### L IPID, TSH #### [facility] [address] [place] [address] Dr. Betsy Velazquez Triglyceride [Mass/Vol] 80 mg/dL Normal <=150 [facility] Comment on above: Performed By: #### L IPID, TSH #### [facility] [address] [place] [address] Dr. Betsy Velazquez VLDL CALC 16.0 mg/dL Normal [facility] Comment on above: Performed By: #### L IPID, TSH #### [facility] [address] [place] [address] Dr. Betsy Velazquez MAGNESIUMon 06-29-2022 Magnesium [Mass/Vol] 2.1 mg/dL Normal 1.8-2.4 [facility] Comment on above: Performed By: #### B MP, MG #### [facility] [address] [place] [address] Dr. Besty Velazquez PROF CHEM 8 (BAS METB)on Anion gap [Moles/Vol] 10.8 mmol/L Normal [facility] Comment on above: Performed By: #### B MP, MG #### [facility] [address] [place] [address] Dr. Betsy Velazquez Calcium [Mass/Vol] 9.0 mg/dL Normal 8.5-10.1 [facility] Comment on above: Performed By: #### B MP, MG #### [facility] [address] [place] [address] Dr. Betsy Velazquez Chloride [Moles/Vol] 104 mmol/L Normal 98-107 [facility] Comment on above: Performed By: #### B MP, MG #### [facility] [address] [place] [address] Dr. Betsy Velazquez CO2 [Moles/Vol] 28.1 mmol/L Normal 21.0-32.0 [facility] Comment on above: Performed By: #### B MP, MG #### [facility] [address] [place] [address] Dr. Betsy Velazquez Creatinine [Mass/Vol] 0.86 mg/dL Normal 0.55-1.02 [facility] Comment on above: Performed By: #### B MP, MG #### [facility] [address] [place] [address] Dr. Betsy Velazquez EGFR-AF [place] >60 Normal >=60 [facility] Comment on above: Performed By: #### B MP, MG #### [facility] [address] [place] [address] Dr. Betsy Velazquez EGFR-NON AF [place] >60 Normal >=60 [facility] Comment on above: Performed By: #### B MP, MG #### [facility] [address] [place] [address] Dr. Betsy Velazquez Glucose [Mass/Vol] 111 mg/dL Critically high 74-106 [facility] Comment on above: Performed By: #### B MP, MG #### [facility] [address] [place] [address] Dr. Betsy Velazquez Potassium [Moles/Vol] 3.9 mmol/L Normal 3.5-5.1 [facility] Comment on above: Performed By: #### B MP, MG #### [facility] [address] [place] [address] Dr. Betsy Velazquez Sodium [Moles/Vol] 139 mmol/L Normal 136-145 [facility] Comment on above: Performed By: #### B MP, MG #### [facility] [address] [place] [address] Dr. Betsy Velazquez Urea nitrogen [Mass/Vol] 18.0 mg/dL Normal 7.0-18.0 [facility] Comment on above: Performed By: #### B MP, MG #### [facility] [address] [place] [address] Dr. Betsy Velazquez Urea nitrogen/Creatinine [Mass ratio] 20.9 mg/mg Normal [facility] Comment on above: Performed By: #### B MP, MG #### [facility] [address] [place] [address] Dr. Betsy Velazquez TSHon 06-29-2022 TSH 1.981 uIU/mL Normal 0.358-3.740 [facility] Comment on above: Performed By: #### L IPID, TSH #### [facility] [address] [place] [address] Dr. Betsy Velazquez XR CHEST 1 Von [...] MARKO GARY Date: 2022-06-28 22:50 Normal [facility] CARDIAC ELIA ADMITon 023 CK [Catalytic activity/Vol] 149 U/L Normal 26-192 [facility] Comment on above: Performed By: #### B MP, MG #### [facility] [address] [place] [address] Dr. Betsy Velazquez CK.MB [Mass/Vol] 2.34 ng/mL Normal <=3.60 [facility] Comment on above: Performed By: #### B MP, MG #### [facility] [address] [place] [address] Dr. Betsy Velazquez HSTROP 5.5 pg/mL Normal 4.0-51.3 [facility] Comment on above: Result Comment: CUT- OFF POINTS HAVE BEEN ESTABLISHED BASED ON THE FOURTH UNIVERSAL DEFINITIONS OF MYOCARDIAL INFARCTION. THE UPPER REFERENCE LIMIT (URL) OF TROPONIN, DEFINED THE 99TH PERCENTILE OF cTnI DISTRIBUTION IN A REFERENCE POPULATION, HAS BEEN CONFIRMED THE DECISION THRESHOLD FOR ME DIAGNOSIS. Performed By: #### B MP, MG #### [facility] [address] [address] [address] Betsy Velazquez CHRISTOPHER 50 ng/mL Normal 9-82 [facility] Comment on above: Performed By: #### B MP, MG #### [facility] [address] [place] [address] Dr. Betsy Velazquez CBC AUTO DIFFon 06-28-2022 BASO # 0.1 103/ul Normal 0.0-0.1 [facility] Comment on above: Performed By: #### C BC #### [facility] [address] [address] [address] Betsy Velazquez Basophils/100 WBC (Bld) 0.6 % Normal 0.2-2.0 [facility] Comment on above: Performed By: #### C BC #### [facility] [address] [place] [address] Dr. Betsy Velazquez EO # 0.2 103/ul Normal 0.0-0.7 [facility] Comment on above: Performed By: #### C BC #### [facility] [address] [place] [address] Dr. Betsy Velazquez Eosinophils/100 WBC (Bld) 2.0 % Normal 0.9-7.0 [facility] Comment on above: Performed By: #### C BC #### [facility] [address] [place] [address] Dr. Betsy Velazquez Erythrocyte distribution width (RBC) [Ratio] 12.8 % Normal 11.0-15.0 [facility] Comment on above: Performed By: #### C BC #### [facility] [address] [place] [address] Dr. Betsy Velazquez Hematocrit (Bld) [Volume fraction] 41.8 % Normal 36.0-48.0 [facility] Comment on above: Performed By: #### C BC #### [facility] [address] [place] [address] Dr. Betsy Velazquez Hemoglobin (Bld) [Mass/Vol] 13.8 g/dL Normal 12.0-16.0 [facility] Comment on above: Performed By: #### C BC #### [facility] [address] [place] [address] Dr. Betsy Velazquez IG # 0.04 10e3/ul Critically high 0.00-0.03 [facility] Comment on above: Performed By: #### C BC #### [facility] [address] [place] [address] Dr. Betsy Velazquez IG % 0.3 % Normal 0.0-0.5 [facility] Comment on above: Performed By: #### C BC #### [facility] [address] [place] [address] Dr. Betsy Velazquez LYMPH # 3.1 103/ul Normal 1.2-3.8 [facility] Comment on above: Performed By: #### C BC #### [facility] [address] [place] [address] Dr. Betsy Velazquez Lymphocytes/100 WBC (Bld) 26.9 % Normal 20.5-60.0 [facility] Comment on above: Performed By: #### C BC #### [facility] [address] [place] [address] Dr. Betsy Velazquez MANUAL DIFF REQ NO Normal [facility] Comment on above: Performed By: #### C BC #### [facility] [address] [place] [address] Dr. Betsy Velazquez MCH (RBC) [Entitic mass] 31.4 pg Normal 26.7-34.0 [facility] Comment on above: Performed By: #### C BC #### [facility] [address] [place] [address] Dr. Betsy Velazquez MCHC (RBC) [Mass/Vol] 33.0 g/dL Normal 29.9-35.2 [facility] Comment on above: Performed By: #### C BC #### [facility] [address] [place] [address] Dr. Betsy Velazquez MCV (RBC) [Entitic vol] 95.2 fL Normal 81.0-99.0 [facility] Comment on above: Performed By: #### C BC #### [facility] [address] [place] [address] Dr. Betsy Velazquez MONO # 0.9 103/ul Critically high 0.3-0.8 [facility] Comment on above: Performed By: #### C BC #### [facility] [address] [place] [address] Dr. Betsy Velazquez Monocytes/100 WBC (Bld) 7.8 % Normal 1.7-12.0 [facility] Comment on above: Performed By: #### C BC #### [facility] [address] [place] [address] Dr. Betsy Velazquez NEUT # 7.2 103/ul Critically high 1.4-6.5 [facility] Comment on above: Performed By: #### C BC #### [facility] [address] [place] [address] Dr. Betsy Velazquez Neutrophils/100 WBC (Bld) 62.4 % Normal 43.0-75.0 [facility] Comment on above: Performed By: #### C BC #### [facility] [address] [place] [address] Dr. Betsy Velazquez Platelet mean volume (Bld) [Entitic vol] 11.1 fL Normal 9.5-13.5 [facility] Comment on above: Performed By: #### C BC #### [facility] [address] [place] [address] Dr. Betsy Velazquez PLT 272 103/ul Normal 150-450 [facility] Comment on above: Performed By: #### C BC #### [facility] [address] [place] [address] Dr. Betsy Velazquez RBC 4.39 106/ul Normal 4.20-5.40 [facility] Comment on above: Performed By: #### C BC #### [facility] [address] [place] [address] Dr. Betsy Velazquez WBC 11.6 103/ul Critically high 4.0-11.0 [facility] Comment on above: Performed By: #### C BC #### [facility] [address] [place] [address] Dr. Betsy Velazquez PROF CHEM 8 (BAS METB)on Anion gap [Moles/Vol] 12.8 mmol/L Normal [facility] Comment on above: Performed By: #### B MP, MG #### [facility] [address] [place] [address] Dr. Betsy Velazquez Calcium [Mass/Vol] 9.4 mg/dL Normal 8.5-10.1 [facility] Comment on above: Performed By: #### B MP, MG #### [facility] [address] [address] [address] Betsy Velazquez Chloride [Moles/Vol] 102 mmol/L Normal 98-107 [facility] Comment on above: Performed By: #### B MP, MG #### [facility] [address] [address] [address] Betsy Velazquez CO2 [Moles/Vol] 25.7 mmol/L Normal 21.0-32.0 [facility] Comment on above: Performed By: #### B MP, MG #### [facility] [address] [address] [address] Betsy Velazquez Creatinine [Mass/Vol] 1.03 mg/dL Critically high 0.55-1.02 [facility] Comment on above: Performed By: #### B MP, MG #### [facility] [address] [place] [address] Dr. Betsy Velazquez EGFR-AF [place] >60 Normal >=60 [facility] Comment on above: Performed By: #### B MP, MG #### [facility] [address] [place] [address] Dr. Betsy Velazquez EGFR-NON AF [place] 56 mL/min/1.73m2 Critically low >=60 [facility] Comment on above: Performed By: #### B MP, MG #### [facility] [address] [place] [address] Dr. Betsy Velazquez Glucose [Mass/Vol] 93 mg/dL Normal 74-106 [facility] Comment on above: Performed By: #### B MP, MG #### [facility] [address] [place] [address] Dr. Betsy Velazquez Potassium [Moles/Vol] 3.5 mmol/L Normal 3.5-5.1 [facility] Comment on above: Performed By: #### B MP, MG #### [facility] [address] [place] [address] Dr. Betsy Velazquez Sodium [Moles/Vol] 137 mmol/L Normal 136-145 [facility] Comment on above: Performed By: #### B MP, MG #### [facility] [address] [place], [place] [address] Dr. Betsy Velazquez Urea nitrogen [Mass/Vol] 21.0 mg/dL Critically high 7.0-18.0 [facility] Comment on above: Performed By: #### B MP, MG #### [facility] [address] [place], [place] [address] Dr. Betsy Velazquez Urea nitrogen/Creatinine [Mass ratio] 20.4 mg/mg Normal [facility] Comment on above: Performed By: #### B MP, MG #### [facility] [address] [place], [place] [address] Dr. Betsy Velazquez DIGITAL DIAG MAMM BILAT WITH TOMOon 12-28-2021 DIGITAL DIAG MAMM BILAT WITH MASON Patient Name: RASHEEDA NICHOLE STUDY: DIGITAL DIAG MAMM BILAT WITH MASON; BREAST ULTRASOUND; 12/28/2021 9:31 am; 12/28/2021 9:59 am ACCESSION NUMBER(S): [id number]; [id number] ORDERING CLINICIAN: BARBARA HARRY INDICATION: breast lump [...] any future breast imaging appointments, please call [phone] ([phone]). Electronically signed by: ELIA RON MD Normal [facility] Radiologyon 12-28-2021 MG Breast Diagnostic Normal MP[facility] herst Work Phone: ULTRASOUND LIMITED BREASTon 12-28-2021 ULTRASOUND LIMITED BREAST Patient Name: RASHEEDA NICHOLE STUDY: DIGITAL DIAG MAMM BILAT WITH MASON; BREAST ULTRASOUND; 12/28/2021 9:31 am; 12/28/2021 9:59 am ACCESSION NUMBER(S): [id number]; [id number] ORDERING CLINICIAN: BARBARA HARRY INDICATION: breast lump [...] any future breast imaging appointments, please call [phone]). Electronically signed by: ELIA RON MD Normal [facility] Ultrasound Limited [place] 12-28-2021 MG Breast Screening Normal MP-Tr [facility] herst Work Phone: Office Visit (Cardiology)on 12-21-2021 Follow-up visit Diagnoses/Problems Assessed Obesity (BMI 35.0-39.9 without comorbidity) (278.00) (E66.9) Orders Obesity (BMI 35.0-39.9 without comorbidity) Healthy Weight Tips; Status:Complete - Retrospective Authorization; Done: [id number] Some eating tips that can help you lose weight.; Status:Complete - Retrospective Authorization; Done: [id number] Patient Instructions FOLLOW UP NEEDED ONLY YOUR [...] further questions arise, Sincerely, Samara Roe MD [facility] Surgical History Problems History of Carpal tunnel surgery History of section 1990, 1992, 1995 History of Cholecystectomy 2017 History of Tubal ligation bilateral 1995 History of Viola tooth extraction Past Medical History Problems Colon [...] (1999) O (more content not included)... Normal [employer] Tobacco Screening.on 022 Adult depression screening assessment No [facility] [address] DO Work Phone: Tobacco use status [facility]S b) No -[facility] DO Work Phone: Office Visiton 11-22-2021 Follow-up visit Diagnoses/Problems Screening breast examination (V76.10) (Z12.39) Breast lump on right side at 12 o'clock position (611.72) (N63.15) Orders Breast lump on right side at 12 o'clock position Mamm Digital Diagnostic Mammography Unilateral Right; Status:Active; Requested for:30Nov2021; Patient is scheduled for 11-30-21 @ 1:30pm at [facility]. Thank you. Laterality : Right Radiologist to Determine Optimal Study : Y What are the patient's signs and symptoms? : breast lump Screening breast examination Mamm - Screening Mammogram; Status:Active; Requested for:22Nov2021; Patient is scheduled at [facility] on 11-30-21. Thank you. [...] No falls within the last year [facility] Work Phone: Tobacco use status [facility] b) [facility] Work [facility]: PHQ-2 VITALSon 07-12-2021 Adult depression screening assessment Negative -[facility] herst Work Phone: Fall risk assessment a) No falls within the last year [facility] Work Phone: Tobacco use status CP b) No -[facility] herst Work Phone: Tobacco Screening.on 022 Fall risk assessment a) No falls within the last year [facility] n 127 DO Work Phone: Tobacco use status [facility] b) No -[facility] n 127 DO Work Phone: Laboratory - Microbiology an d Antimicrobial susceptibilityon 06-14-2021 SARS-CoV-2 (COVID-19) RNA REYNALDO+probe Ql (Unsp spec) Pass Normal Pass -[facility] herst Work Phone: No Panel Informationon 06-14 NO Normal -[facility] herst Work Phone: YES Normal [facility] Work [facility]: Unknown Normal [facility] Work Phone: Not detected Normal Not Detected [facility] Work Phone: Comment on above: This test result jakob uld be correlated with clinical presentations and medical history by a healthcare provider to determine its clinical significance.This assay was performed by a reverse transcriptase real-time polymerase chain reaction (rt PCR) method on the [employer] system. This test has been authorized only [...] is terminated or revoked sooner. Nasal Normal [facility] herst Work Phone: Cardiac Stress Teston 2020 Cardiac Stress Test Please click on the link to view the study images Normal -[facility] n 127 DO Work Phone: Cardiac Stress Test -No rth [facility] n 127 DO Work Phone: Echocardiogramon 06-07-2021 Echocardiography Please click on the link to view the study images Normal [facility] DO Work Phone: Hepatic Function Panelon Albumin BCP dye [Mass/Vol] 3.9 g/dL 3.4 - 5.0 [facility] n 127 DO Work Phone: ALP [Catalytic activity/Vol] 71 U/L 33 - 110 [place] [address] DO Work Phone: ALT With P-5'-P [Catalytic activity/Vol] 26 U/L 7 - 45 [facility] DO Work Phone: Comment on above: Patients treated wit h Sulfasalazine may generate falsely decreased results for ALT. AST With P-5'-P [Catalytic activity/Vol] 20 U/L 9 - 39 [facility] n 127 DO Work Phone: Bilirubin [Mass/Vol] 0.4 mg/dL 0.0 - 1.2 [facility] n 127 DO Work Phone: Bilirubin.direct [Mass/Vol] 0.1 mg/dL 0.0 - 0.3 [facility] DO Work Phone: Protein [Mass/Vol] 7.2 g/dL 6.4 - 8.2 [facility] n 127 DO Work Phone: Laboratory - Chemistry and C hemistry - challengeon 05-17-2021 Anion gap [Moles/Vol] 14 mmol/L 10 - 20 [facility] DO Work Phone: Calcium [Mass/Vol] 9.1 mg/dL 8.6 - 10.3 [facility] n 127 DO Work Phone: Chloride [Moles/Vol] 102 mmol/L 98 - 107 [facility] n 127 DO Work Phone: CO2 [Moles/Vol] 27 mmol/L 21 - 32 [facility] DO Work Phone: Creatinine [Mass/Vol] 0.81 mg/dL See Below [place] [address] DO Work Phone: Comment on above: Reference Range: 0.5 0 - 1.05 Glucose [Mass/Vol] 93 mg/dL 74 - 99 [facility] DO Work Phone: Potassium [Moles/Vol] 4.2 mmol/L 3.5 - 5.3 [facility] DO Work Phone: Sodium [Moles/Vol] 139 mmol/L 136 - 145 [facility] n [facility] DO Work Phone: Urea nitrogen [Mass/Vol] 13 mg/dL 6 - 23 [facility] DO Work Phone: Laboratory - Hematology and Cell countson 05-17-2021 Erythrocyte distribution width (RBC) [Ratio] 13.2 % See Below [facility] n 127 DO Work Phone: Comment on above: Reference Range: 11. 5 - 14.5 Hematocrit (Bld) [Volume fraction] 39.5 % See Below [place] [address] DO Work Phone: Comment on above: Reference Range: 36. 0 - 46.0 Hemoglobin (Bld) [Mass/Vol] 13.2 g/dL See Below [place] [address] DO Work Phone: Comment on above: Reference Range: 12. 0 - 16.0 MCHC (RBC) [Mass/Vol] 33.4 g/dL See Below [place] [address] DO Work Phone: Comment on above: Reference Range: 32. 0 - 36.0 MCV (RBC) [Entitic vol] 97 fL 80 - 100 [place] [address] DO Work Phone: Platelets (Bld) [#/Vol] 247 10*3/uL 150 - 450 [place] [address] DO Work Phone: RBC (Bld) [#/Vol] 4.07 {x10E12/L} See Below [place] [address] DO Work Phone: Comment on above: Reference Range: 4.0 0 - 5.20 WBC (Bld) [#/Vol] 7.8 10*3/uL 4.4 - 11.3 [place] [address] DO Work Phone: Lipid Panelon 05-17-2021 Cholesterol [Mass/Vol] 176 mg/dL 0 - 199 [place] [address] DO Work Phone: Comment on above: . [...] dosing. Cholesterol in HDL [Mass/Vol] 63.0 mg/dL [facility] DO Work Phone: Comment on above: . AGE VERY LOW LOW N ORMAL HIGH 0-19 Y < 35 < 40 40-45 ---- 20- 24 Y ---- < 40 >45 ---- >24 Y ---- < 40 40-60 >60. Cholesterol in LDL [Mass/Vol] 96 mg/dL 0 - 99 [facility] 127 DO Work Phone: Comment on above: . NEAR BORD AGE LUIS RABLE OPTIMAL HIGH HIGH VERY HIGH 0-19 Y 0 - 109 --- 110-129 >/= 130 ---- 20-24 Y 0 - 119 --- 120-159 >/= 160 ---- >24 Y 0 - 99 100-129 130-159 160-189 >/=190. Cholesterol.total/Ch olesterol in HDL [Mass ratio] 2.8 {ratio} [place] [address] DO Work Phone: Comment on above: REF VALUESDESIRABLE < 3.4HIGH RISK > 5.0 Triglyceride [Mass/Vol] 87 mg/dL 0 - 149 [facility] 127 DO Work Phone: Comment on above: [...] Lipid Panel 17 mg/dL 0 - 40 [facility] DO Work Phone: Magnesium, Serumon 1 Magnesium [Mass/Vol] 1.90 mg/dL See Below [facility] 127 DO Work Phone: Comment on above: Reference Range: 1.6 0 - 2.40 No Panel Informationon 05-17 >60 >60 [facility] gillian Zapata DO Work Phone: Comment on above: CALCULATIONS OF LINDSEY MATED GFR ARE PERFORMED USING THE MDRD STUDY EQUATION FOR THE IDMS-TRACEABLE CREATININE METHODS. CLIN CHEM 2007;53:766-72 T4 - Free Thyroxine, Serumon 05-17-2021 Free T4 [Mass/Vol] 0.90 ng/dL See Below [facility] gillian 127 DO Work Phone: Comment on above: Reference Range: 0.6 1 - 1.12 Thyroxine Free testing is performed using different testing methodology at [facility] than at other [facility]. Direct result comparisons should only be made [...] 05-17-2021 TSH Qn 1.76 m[IU]/L See Below [facility] gillian Zapata DO Work Phone: Comment on above: Reference Range: 0.4 4 - 3.98 TSH testing is performed using different testing methodology at [facility] than at other [facility]. Direct result comparisons should only be made within the same method. Tobacco Screening.on 021 Fall risk assessment a) No falls within the last year [facility] gillian Zapata DO Work Phone: Tobacco use status CPHS b) No [facility] Benny DO Work Phone: HCG, Serum - Qualitativeon 1 06-22-2020 HCG ( test) Ql Negative Negative [facility] herst Work Phone: No Panel Informationon 04-22 [email or web address] 1:8080/ musescripts/[email or web address].dll?Ret rieveTestByDateTime?Patient [id number]&Date= 1&Time=06%3a23%3a29%3a00&Te stType=ECG&Site=11&OutputTy pe=PDF&Ext=PDF -[facility] herst Work Phone: Sinus rhythm with pr emature supraventricular complexes MP-[facility] her[facility] Work Phone: Borderline Abnormal MP- [facility] Work Phone: [phone] MP-[facility] her[facility] Work Phone: [phone] -[facility] Work Phone: [phone] -[facility] Work Phone: [phone] -[facility] Work Phone: [phone] -[facility] Work Phone: 14 1 -[facility] Work Phone: [phone] 1 -[facility] Work Phone: 68 1 -[facility] Work Phone: 51 1 -[facility] Work Phone: [phone] -[facility] Work Phone: [phone] -[facility] Work Phone: [phone] -[facility] Work Phone: [phone] -[facility] Work Phone: 80 1 -[facility] Work Phone: Coronavirus 2019 RNA by PCR, Screening Asymptomticon 04-20-2021 Coronavirus 2019 RNA by PCR, Screening Asymptomtic Not detected Normal See Below -[facility] Work Phone: Comment on above: [...] make patient management decisions.Fact sheet for providers: https://www.fda.gov/media/802936/downloadFact sheet for patients: https://www.fda.gov/media/499711/downloadThis test has received FDA Emergency Use Authorization (EUA) and has been verified by [facility] ([facility]). This test is only authorized for the duration of time that circumstances exist to justify the authorization of the emergency use of in vitro diagnostic tests for the detection of SARS-CoV-2 virus and/or diagnosis of COVID-19 infection under section 564(b)(1) of the Act, 21 U.S.C. 360bbb-3(b)(1), unless the authorization is terminated or revoked sooner. [facility] is certified under CLIA-88 as qualified to perform high complexity testing. Testing is performed in the [facility] laboratories located at [address] [place] [address]. LMPon 10-29-2020 Last menstrual period start date 31Aug2020 -[facility] Work Phone: No Panel Informationon 10-29 Name RASHEEDA NICHOLE Pathologist: MAGDA LIMON MD Date of Procedure: 10/29/2020 Date Received: 10/29/2020 Date Reported 11/03/2020 Submitting Physician: SALIMA GILMAN M.D. Location: [facility] Other External # FINAL DIAGNOSIS A. SKIN, [...] entirely submitted in one cassette. [facility] rcc/11/02/2020 [facility] Department of Pathology [address] [place] [address] [facility] herst Work Phone: [facility] Work Phone: Mamm - Screening Mammogram w / Tomosynthesison 06-09-2020 MG Breast screening Interpreted by: THERON KNOTTD108/10/19 09:10MRN: [id number] Name: RASHEEDA NICHOLE STUDY:DIGITAL SCREENING BILATERAL MAMMOGRAM [...] by: THERON VEE 06/09/20 09:[address] [facility] Work Phone: Comment on above: ORDER REVISED TO A D IGITAL MAMM SCREENING W/ MASON BY RADIOLOGIST; Original Order Number: [id number] GC + Chlamydia By Amplified Detectionon 01-05-2020 C. trachomatis rRNA REYNALDO+probe Ql (Unsp spec) Negative Negative [facility] A2100 DO Work Phone: N. gonorrhoeae rRNA REYNALDO+probe Ql (Unsp spec) Negative Negative [facility] A2100 DO Work Phone: Comment on above: SOURCE: Genital Otheron 01-05-2020 0 [facility] A2100 DO Work Phone: Comment on above: Interpretation of th e Bronwyn Score0-3.....Normal vaginal microbiota4-6.....Intermediate results7-10....Bacterial vaginosis ABSENT [facility] A2100 DO Work Phone: Negative Negative [facility] A2100 DO Work Phone: Comment on above: SOURCE: Genital Urinalysison 01-05-2020 Yeast LM Ql (Urine sed) ABSENT [facility] A2100 DO Work Phone: Otheron 07-25-2019 Clam IgE Qn (S) <0.35 <0.35 -[facility] herst Work Phone: Comment on above: SEE IMMUNOCAP INTERP .IGE Codfish IgE Qn (S) <0.35 <0.35 [facility] Work Phone: Comment on above: SEE IMMUNOCAP INTERP .IGE [place] IgE Qn (S) <0.35 <0.35 -[facility] herst Work Phone: Comment on above: SEE IMMUNOCAP INTERP .IGE Egg white IgE Qn (S) <0.[address] [facility] herst Work Phone: Comment on above: SEE IMMUNOCAP INTERP .IGE Lobster IgE Qn (S) 0.56 {KU/L} Abnormal <0.35 [facility] herst Work Phone: Comment on above: SEE IMMUNOCAP INTERP .IGE Milk IgE Qn (S) <0.35 <0.35 -[facility] herst Work Phone: Comment on above: SEE IMMUNOCAP INTERP .IGE Peanut IgE Qn (S) <0.35 <0.35 [facility] Work Phone: Comment on above: SEE IMMUNOCAP INTERP .IGE Doss IgE Qn (S) <0.35 <0.35 [facility] herst Work Phone: Comment on above: SEE IMMUNOCAP INTERP .IGE Scallop IgE Qn (S) <0.[address] [facility] Work Phone: Comment on above: SEE IMMUNOCAP INTERP .IGE Sesame Seed IgE Qn (S) <0.[address] [facility] Work Phone: Comment on above: SEE IMMUNOCAP INTERP .IGE Shrimp IgE Qn (S) 0.40 {KU/L} Abnormal <0.35 [facility] Work Phone: Comment on above: SEE IMMUNOCAP INTERP .IGE Soybean IgE Qn (S) <0.[address] [facility] Work Phone: Comment on above: SEE IMMUNOCAP INTERP .IGE [place] IgE Qn (S) <0.[address] [facility] Work Phone: Comment on above: SEE IMMUNOCAP INTERP .IGE Wheat IgE Qn (S) <0.35 <0.35 [facility] Work Phone: Comment on above: SEE IMMUNOCAP INTERP .IGE SEE COMMENT [facility] Work Phone: Comment on above: REFERENCE RANGE (IMM UNOCAP) IGE KU/L CLASS INTERPRETATION < 0.35 0 BELOW DETECTION 0.35- 0.69 1 LOW POSITIVE 0.70- 3.49 2 MODERATE POSITIVE 3.50- 17.49 3 HIGH NJQQEIWB85.50- 49 4 VERY HIGH [id number] - 99 5 VERY HIGH POSITIVE >100 6 VERY HIGH POSITIVE Culture, Throaton 10-30-2018 Culture, Throat OR DERED BY: SARKIS ROGERS SOURCE: Throat Throat COLLECTED: 10/30/18 15:03 ANTIBIOTICS AT KIP.: RECEIVED : 10/30/18 19:13 Culture, Throat FINAL 11/01/18 08:10 Usual respiratory jessica in 48 hours Normal [facility] Comment on above: Performed By: #### C XTHR #### [facility] [address] [place] [address] Vital Signs Date Time Vital Sign Value Performing Clinician Yamile rojas 04-18-2024 09:15-0400 Blood Pressure Location [facility] 04-18-2024 09:15-0400 Diastolic blood pressure 62 mm[Hg] [facility] 04-18-2024 09:15-0400 Heart rate 69 /min [facility] 04-18-2024 09:15-0400 SaO2% (BldA) [Mass fraction] 97 % [facility] 04-18-2024 09:15-0400 Systolic blood pressure 112 mm[Hg] [facility] 04-03-2024 13:44-0400 Body height 152.4 cm Federico Wing MD Work Phone: [facility] 04-03-2024 13:44-0400 Body mass index (BMI) [Ratio] 39.45 kg/m2 Federico Wing MD Work Phone: [facility] 04-03-2024 13:44-0400 Body weight 91.63 kg Federico Wing MD Work Phone: [facility] Comment on above: wearing ortho boot 04-03-2024 13:44-0400 Diastolic blood pressure 60 mm[Hg] Federico Wing MD Work Phone: [facility] 04-03-2024 13:44-0400 Heart rate 66 /min Federico Wing MD Work Phone: [facility] 04-03-2024 13:44-0400 Systolic blood pressure 112 mm[Hg] Federico Wing MD Work Phone: [facility] 01-18-2024 11:42-0400 Blood Pressure Location [facility] 01-18-2024 11:42-0400 Diastolic blood pressure 66 mm[Hg] [facility] 01-18-2024 11:42-0400 Heart rate 61 /min [facility] 01-18-2024 11:42-0400 SaO2% (BldA) [Mass fraction] 97 % [facility] 01-18-2024 11:42-0400 Systolic blood pressure 118 mm[Hg] [facility] 11-12-2023 23:00-0400 Diastolic blood pressure 70 mm[Hg] Atilio Beltran [facility] 11-12-2023 23:00-0400 Heart rate 58 /min Atilio Beltran [facility] 11-12-2023 23:00-0400 Mean blood pressure 90 mm[Hg] Atilio Beltran [facility] 11-12-2023 23:00-0400 Respiratory rate 8 /min Atilio Devin [facility] 11-12-2023 23:00-0400 SaO2% (BldA) [Mass fraction] 96 % Atilio Beltran [facility] 11-12-2023 23:00-0400 Systolic blood pressure 131 mm[Hg] Atilio Beltran [facility] 11-12-2023 22:00-0400 Diastolic blood pressure 60 mm[Hg] Atilio Beltran [facility] 11-12-2023 22:00-0400 Heart rate 64 /min Atilio Beltran [facility] 11-12-2023 22:00-0400 Mean blood pressure 79 mm[Hg] Atilio Beltran [facility] 11-12-2023 22:00-0400 Respiratory rate 25 /min Atilio Beltran [facility] 11-12-2023 22:00-0400 SaO2% (BldA) [Mass fraction] 97 % Atilio Beltran [facility] 11-12-2023 22:00-0400 Systolic blood pressure 117 mm[Hg] Atilio Beltran [facility] 11-12-2023 21:00-0400 Diastolic blood pressure 72 mm[Hg] Atilio Beltran [facility] 11-12-2023 21:00-0400 Mean blood pressure 87 mm[Hg] Atilio Beltran [facility] 11-12-2023 21:00-0400 Respiratory rate 20 /min Atilio Beltran [facility] 11-12-2023 21:00-0400 SaO2% (BldA) [Mass fraction] 99 % Atilio Beltran [facility] 11-12-2023 21:00-0400 Systolic blood pressure 118 mm[Hg] Atilio Beltran [facility] 11-12-2023 20:41-0400 Body temperature 97.7 [degF] Atilio Beltran [facility] 11-12-2023 20:41-0400 Heart rate 63 /min Atilio Beltran [facility] 11-12-2023 20:41-0400 Respiratory rate 16 /min Atilio Beltran [facility] 2023 16:45-0400 Blood Pressure Location [place] [facility] 2023 16:45-0400 Diastolic blood pressure 60 mm[Hg] Amanda Saraviasydnie [facility] 2023 16:45-0400 Heart rate 64 /min Amanda Saraviasydnie [facility] 2023 16:45-0400 SaO2% (BldA) [Mass fraction] 96 % [facility] 2023 16:45-0400 Systolic blood pressure 116 mm[Hg] [facility] 09-24-2022 04:19-0400 Diastolic blood pressure 58 mm[Hg] Vincent Maxim [facility] 09-24-2022 04:19-0400 Heart rate 60 /min Vincent Maxim [facility] 09-24-2022 04:19-0400 Respiratory rate 18 /min Vincent Maxim [facility] 09-24-2022 04:19-0400 SaO2% (BldA) [Mass fraction] 96 % Vincent Maxim [facility] 09-24-2022 04:19-0400 Systolic blood pressure 114 mm[Hg] Vincent Maxim [facility] 09-24-2022 02:53-0400 Diastolic blood pressure 56 mm[Hg] Vincent Maxim [facility] 09-24-2022 02:53-0400 Heart rate 68 /min Vincent Maxim [facility] 09-24-2022 02:53-0400 Mean blood pressure 70 mm[Hg] Vincent Maxim [facility] 09-24-2022 02:53-0400 Respiratory rate 15 /min Vincent Maxim [facility] 09-24-2022 02:53-0400 SaO2% (BldA) [Mass fraction] 92 % Vincent Maxim [facility] 09-24-2022 02:53-0400 Systolic blood pressure 99 mm[Hg] Vincent Maxim [facility] 09-24-2022 02:19-0400 Blood Pressure Location Vincent Pan [facility] 09-24-2022 02:19-0400 Diastolic blood pressure 52 mm[Hg] Vincent Pan [facility] 09-24-2022 02:19-0400 Heart rate 75 /min Vincent Pan [facility] 09-24-2022 02:19-0400 Mean blood pressure 68 mm[Hg] Vincent Pan [facility] 09-24-2022 02:19-0400 Respiratory rate 18 /min Vincent Pan [facility] 09-24-2022 02:19-0400 SaO2% (BldA) [Mass fraction] 95 % Vincent Pan [facility] 09-24-2022 02:19-0400 Systolic blood pressure 101 mm[Hg] Vincent Pan [facility] 09-24-2022 01:07-0400 Blood Pressure Location Vincent Pan [facility] 09-24-2022 01:07-0400 Mean blood pressure 72 mm[Hg] Vincent Pan [facility] 09-23-2022 22:20-0400 Respiratory rate 16 /min Vincent Pan [facility] 09-20-2022 12:24-0400 Body mass index (BMI) [Ratio] 36.48 kg/m2 Kayla Dent -[facility] [employer] 305 DO Work Phone: 09-20-2022 12:24-0400 Body surface area Derived from formula 1.81 m2 Kayla Dent -[facility] [employer] 305 DO Work Phone: 09-20-2022 12:24-0400 Body weight 84.73 kg Kayla Monroeeen Olena -[facility] 305 DO Work Phone: 09-20-2022 12:24-0400 Diastolic blood pressure 72 mm[Hg] Kayla Monroeeen Olena -[facility] 305 DO Work Phone: 09-20-2022 12:24-0400 Heart rate 61 /min Kayla Monroeeen Olena [facility] 305 DO Work Phone: 09-20-2022 12:24-0400 Systolic blood pressure 132 mm[Hg] Kayla Monroeeen Olena -[facility] 305 DO Work Phone: 08-29-2022 10:03-0400 Heart rate 64 /min Kayla Dent [facility] 300 DO Work Phone: 08-25-2022 14:17-0500 Body temperature 97.88 [degF] Kayla Dent Other Phone: [facility] 08-25-2022 14:17-0500 Diastolic blood pressure 63 mm[Hg] Kayla Dent Other Phone: [facility] 08-25-2022 14:17-0500 Heart rate 69 /min Kayla Dent Other Phone: [facility] 08-25-2022 14:17-0500 Respiratory rate 16 /min Kayla Dent Other Phone: [facility] 08-25-2022 14:17-0500 SaO2% (BldA) [Mass fraction] 93 % Kayla Dent Other Phone: [facility] 08-25-2022 14:17-0500 Systolic blood pressure 120 mm[Hg] Kayla Dent Other Phone: [facility] 08-18-2022 10:45-0500 Body height 152.4 cm Kayla Dent -[facility] 300 DO Work Phone: 08-18-2022 10:45-0500 Body mass index (BMI) [Ratio] 36.13 kg/m2 Kayla Dent -[facility] 300 DO Work Phone: 08-18-2022 10:45-0500 Body surface area Derived from formula 1.81 m2 Kayla Dent [facility] 300 DO Work Phone: 08-18-2022 10:45-0500 Body weight 83.92 kg Kayla Dent [facility] 300 DO Work Phone: 08-18-2022 10:45-0500 Diastolic blood pressure 80 mm[Hg] Kayla Dent [facility] 300 DO Work Phone: 08-18-2022 10:45-0500 Heart rate 50 /min Kayla Dent [facility] 300 DO Work Phone: 08-18-2022 10:45-0500 Systolic blood pressure 134 mm[Hg] Kayla Dent [facility] 300 DO Work Phone: 08-07-2022 09:06-0500 Blood Pressure Location Luna DICKINSON [facility] 08-07-2022 09:06-0500 Diastolic blood pressure 74 mm[Hg] Luna DICKINSON [facility] 08-07-2022 09:06-0500 Heart rate 66 /min Luna DICKINSON [facility] 08-07-2022 09:06-0500 SaO2% (BldA) [Mass fraction] 95 % Lunadominic DICKINSON [facility] 08-07-2022 09:06-0500 Systolic blood pressure 118 mm[Hg] Luna DICKINSON [facility] 07-12-2022 15:48-0500 Blood Pressure Location Skip Gonzalez [facility] 07-12-2022 15:48-0500 Diastolic blood pressure 70 mm[Hg] Skip Gonzalez [facility] 07-12-2022 15:48-0500 Heart rate 69 /min Skip Gonzalez [facility] 07-12-2022 15:48-0500 Respiratory rate 18 /min Skip Gonzalez [facility] 07-12-2022 15:48-0500 SaO2% (BldA) [Mass fraction] 98 % Skip Gonzalez [facility] 07-12-2022 15:48-0500 Systolic blood pressure 112 mm[Hg] Skip Gonzalez [facility] 12-21-2021 10:04-0400 Body height 152.4 cm Salima Gilman Work Phone: [facility] 127 DO Work Phone: 12-21-2021 10:04-0400 Body mass index (BMI) [Ratio] 36.72 kg/m2 Salima Kodak Kalina Work Phone: [facility] 127 DO Work Phone: 12-21-2021 10:04-0400 Body surface area Derived from formula 1.82 m2 Salima Kodak Kalina Work Phone: [facility] 127 DO Work Phone: 12-21-2021 10:04-0400 Body weight 85.28 kg Salima Kodak Kalina Work Phone: [facility] 127 DO Work Phone: 12-21-2021 10:04-0400 Diastolic blood pressure 70 mm[Hg] Salima Spenceese Work Phone: [facility] 127 DO Work Phone: 12-21-2021 10:04-0400 Heart rate 68 /min Salima Spenceese Work Phone: [facility] 127 DO Work Phone: 12-21-2021 10:04-0400 Systolic blood pressure 112 mm[Hg] Salima Spenceese Work Phone: [facility] 127 DO Work Phone: 11-22-2021 15:34-0400 Body height 152.4 cm Salima Spenceese Work Phone: [facility] Work Phone: 11-22-2021 15:34-0400 Body mass index (BMI) [Ratio] 36.72 kg/m2 Salima Spenceese Work Phone: [facility] Work Phone: 11-22-2021 15:34-0400 Body surface area Derived from formula 1.82 m2 Salima Spenceese Work Phone: [facility] Work Phone: 11-22-2021 15:34-0400 Body temperature 97 [degF] Salima Spenceese Work Phone: [facility] Work Phone: 11-22-2021 15:34-0400 Body weight 85.28 kg Salima Spenceese Work Phone: [facility] Work Phone: 11-22-2021 15:34-0400 Diastolic blood pressure 73 mm[Hg] Salima Spenceese Work Phone: [facility] Work Phone: 11-22-2021 15:34-0400 Heart rate 66 /min Salima Recinosabrese Work Phone: [facility] Work Phone: 11-22-2021 15:34-0400 SaO2% (BldA) [Mass fraction] 97 % Salima Spenceese Work Phone: [facility] Work Phone: 11-22-2021 15:34-0400 Systolic blood pressure 112 mm[Hg] Salima Spenceese Work Phone: [facility] Work Phone: 07-12-2021 08:30-0500 Body height 152.4 cm Salima Spenceese Work Phone: [facility] Work Phone: 07-12-2021 08:30-0500 Body mass index (BMI) [Ratio] 36.33 kg/m2 Salima Spenceese Work Phone: [facility] Work Phone: 07-12-2021 08:30-0500 Body surface area Derived from formula 1.81 m2 Salima Spenceese Work Phone: [facility] Work Phone: 07-12-2021 08:30-0500 Body temperature 96.4 [degF] Salima Specneese Work Phone: [facility] Work Phone: 07-12-2021 08:30-0500 Body weight 84.37 kg Salima Spenceese Work Phone: [facility] Work Phone: 07-12-2021 08:30-0500 Diastolic blood pressure 82 mm[Hg] Salima Recinosabrese Work Phone: [facility] Work Phone: 07-12-2021 08:30-0500 Heart rate 88 /min Salima Spenceese Work Phone: [facility] Work Phone: 07-12-2021 08:30-0500 Respiratory rate 16 /min Salima Spenceese Work Phone: [facility] Work Phone: 07-12-2021 08:30-0500 SaO2% (BldA) [Mass fraction] 98 % Salima Recinosabrese Work Phone: [facility] Work Phone: 07-12-2021 08:30-0500 Systolic blood pressure 122 mm[Hg] Salima Recinosabrese Work Phone: [facility] Work Phone: 06-23-2021 13:19-0500 Body height 152.4 cm Salima Spenceese Work Phone: [facility] 127 DO Work Phone: 06-23-2021 13:19-0500 Body mass index (BMI) [Ratio] 35.54 kg/m2 Salima Spenceese Work Phone: [facility] 127 DO Work Phone: 06-23-2021 13:19-0500 Body surface area Derived from formula 1.79 m2 Salima Spenceese Work Phone: [facility] 127 DO Work Phone: 06-23-2021 13:19-0500 Body weight 82.56 kg Salima Recinosabrese Work Phone: [facility] 127 DO Work Phone: 06-23-2021 13:19-0500 Diastolic blood pressure 78 mm[Hg] Salima Recinosabrese Work Phone: [facility] 127 DO Work Phone: 06-23-2021 13:19-0500 Heart rate 66 /min Salima Recinosabrese Work Phone: [facility] 127 DO Work Phone: 06-23-2021 13:19-0500 Systolic blood pressure 120 mm[Hg] Salima Recinosabrese Work Phone: [facility] 127 DO Work Phone: 06-07-2021 09:45-0500 65 1 Salima Recinosabrese Work Phone: [facility] 127 DO Work Phone: Comment on above: [id number] 05-11-2021 10:30-0500 Diastolic blood pressure 68 mm[Hg] Salima Recinosabrese Work Phone: [facility] 127 DO Work Phone: 05-11-2021 10:30-0500 Systolic blood pressure 126 mm[Hg] Salima Recinosabrese Work Phone: [facility] 127 DO Work Phone: 05-11-2021 09:53-0500 Body height 152.4 cm Salima Kodak Kalina Work Phone: [facility] 127 DO Work Phone: 05-11-2021 09:53-0500 Body mass index (BMI) [Ratio] 35.94 kg/m2 Salima Gilman Work Phone: [facility] 127 DO Work Phone: 05-11-2021 09:53-0500 Body surface area Derived from formula 1.8 m2 Salima Gilman Work Phone: [facility] 127 DO Work Phone: 05-11-2021 09:53-0500 Body weight 83.46 kg Salima Gilman Work Phone: [facility] 127 DO Work Phone: 05-11-2021 09:53-0500 Diastolic blood pressure 82 mm[Hg] Salima Gilman Work Phone: [facility] 127 DO Work Phone: 05-11-2021 09:53-0500 Heart rate 81 /min Salima Gilman Work Phone: [facility] 127 DO Work Phone: 05-11-2021 09:53-0500 Systolic blood pressure 148 mm[Hg] Salima Gilman Work Phone: [facility] 127 DO Work Phone: 10-29-2020 18:09-0400 Body height 152.4 cm Luna YOON-C [facility] Work Phone: 10-29-2020 18:09-0400 Body mass index (BMI) [Ratio] 34.76 kg/m2 Luna Zacarias PA-C [facility] Work Phone: 10-29-2020 18:09-0400 Body surface area Derived from formula 1.78 m2 Luna Zacarias PA-C [facility] Work Phone: 10-29-2020 18:09-0400 Body temperature 97.5 [degF] Luna Ellisdy PA-C [facility] Work Phone: 10-29-2020 18:09-0400 Body weight 80.74 kg Luna Ellisdy PA-C [facility] Work Phone: 10-29-2020 18:09-0400 Diastolic blood pressure 58 mm[Hg] Lunadominic Ellisdy PA-C [facility] Work Phone: 10-29-2020 18:09-0400 Heart rate 80 /min Lunadominic Ellisdy PA-C [facility] Work Phone: 10-29-2020 18:09-0400 Respiratory rate 16 /min Lunadominic Ellisdy PA-C [facility] Work Phone: 10-29-2020 18:09-0400 SaO2% (BldA) [Mass fraction] 98 % Luna Ellisdy PA-C [facility] Work Phone: 10-29-2020 18:09-0400 Systolic blood pressure 118 mm[Hg] Luna Ellisdy PA-C [facility] Work Phone: 10-29-2020 18:09-0400 3 1 Luna Ellisdy PA-C [facility] Work Phone: Comment on above: Para 10-29-2020 16:09-0400 Body height 152.4 cm Salima Gilman Work Phone: [facility] Work Phone: 10-29-2020 16:09-0400 Body mass index (BMI) [Ratio] 34.76 kg/m2 Salima Gilman Work Phone: [facility] Work Phone: 10-29-2020 16:09-0400 Body surface area Derived from formula 1.78 m2 Salima Recinosabrese Work Phone: [facility] Work Phone: 10-29-2020 16:09-0400 Body temperature 97.5 [degF] Salima Spenceese Work Phone: [facility] Work Phone: 10-29-2020 16:09-0400 Body weight 80.74 kg Salima Spenceese Work Phone: [facility] Work Phone: 10-29-2020 16:09-0400 Diastolic blood pressure 58 mm[Hg] Salima Spenceese Work Phone: [facility] Work Phone: 10-29-2020 16:09-0400 Heart rate 80 /min Salima Spenceese Work Phone: [facility] Work Phone: 10-29-2020 16:09-0400 Respiratory rate 16 /min Salima Spenceese Work Phone: [facility] Work Phone: 10-29-2020 16:09-0400 SaO2% (BldA) [Mass fraction] 98 % [facility]ese [facility] Phone: [facility] Work Phone: 10-29-2020 16:09-0400 Systolic blood pressure 118 mm[Hg] Salima Spenceese Work Phone: [facility] Work Phone: 10-29-2020 16:09-0400 3 1 Salima Gilman Work Phone: [facility] Work Phone: Comment on above: GRAV PARA 09-24-2020 11:19-0400 Body height 152.4 cm Simone Coulter DO [facility] [place] Work Phone: 09-24-2020 11:19-0400 Body mass index (BMI) [Ratio] 30.66 kg/m2 Simone Coulter DO [facility] [place] Work Phone: 09-24-2020 11:19-0400 Body surface area Derived from formula 1.68 m2 Simone Coulter DO [facility] [place] Work Phone: 09-24-2020 11:19-0400 Body temperature 96.8 [degF] Simone Coulter DO [facility] [place] Work Phone: 09-24-2020 11:19-0400 Body weight 71.22 kg Simone Coulter DO [facility] [place] Work Phone: 09-24-2020 11:19-0400 Diastolic blood pressure 64 mm[Hg] Simone Coulter DO [facility] [place] Work Phone: 09-24-2020 11:19-0400 Heart rate 60 /min Simone Coulter DO [facility] [place] Work Phone: 09-24-2020 11:19-0400 Respiratory rate 16 /min Simone Coulter [facility] [facility] Work Phone: 09-24-2020 11:19-0400 SaO2% (BldA) [Mass fraction] 97 % Simone Coulter DO [facility] [place] Work Phone: 09-24-2020 11:19-0400 Systolic blood pressure 110 mm[Hg] Simone Coulter DO -[place] [facility] [place] Work Phone: 09-24-2020 11:19-0400 3 1 Simone Coulter DO -[place] [facility] [place] Work Phone: Comment on above: Para 01-12-2020 11:18-0400 BMI (Body Mass Index) 20.89 kg/m2 [facility] Work Phone: 01-12-2020 11:18-0400 Body weight 69.85 kg Priscilla Leahy [facility] DO Work Phone: 01-12-2020 11:18-0400 BP Diastolic 78 mm[Hg] [facility] Work Phone: 01-12-2020 11:18-0400 BP Systolic 124 mm[Hg] Priscilla Leahy [facility] DO Work Phone: 01-12-2020 11:18-0400 BSA (Body Surface Area) 1.91 m2 [facility] Work Phone: 01-12-2020 11:18-0400 Height 182.88 cm [facility] DO Work Phone: 01-05-2020 15:57-0400 BMI (Body Mass Index) 28.35 kg/m2 [facility] DO Work Phone: 01-05-2020 15:57-0400 Body Temperature 98.4 [degF] [facility] DO Work Phone: 01-05-2020 15:57-0400 Body weight 70.31 kg Priscilla Leahy [facility] DO Work Phone: 01-05-2020 15:57-0400 BP Diastolic 60 mm[Hg] Priscilla Leahy [facility] A2100 DO Work Phone: 01-05-2020 [...] 01-05-2020 15:57-0400 Respiratory Rate 16 /min [facility] DO Work Phone: 10-15-2019 17:37-0400 BMI (Body Mass Index) 27.34 kg/m2 Christian Benito [facility] Work Phone: 10-15-2019 17:37-0400 Body weight 67.81 kg [facility] Work Phone: 10-15-2019 17:37-0400 BP Diastolic 70 mm[Hg] Christian Benito [facility] Work Phone: 10-15-2019 17:37-0400 BP Systolic 102 mm[Hg] Christian Benito [facility] Work Phone: 10-15-2019 17:37-0400 BSA (Body Surface Area) 1.69 m2 Christian Benito [facility] Work Phone: 10-15-2019 17:37-0400 Height 157.48 cm Christian Benito [facility] Work Phone: Encounters Encounter Date Encounter Type Care Provider Facility Start: 07-25-2024 ambulatory DO Amanda Diaz Fac ility:[facility] Start: 07-14-2024 End: 07-15-2024 ambulatory Neymar Fisher [facility] Comment on above: Ankle joint stiffnes s, right (Primary Dx); S/P ankle fusion; Varus deformity, not elsewhere classified, right ankle; Discogenic lumbar pain Start: 07-14-2024 End: 07-14-2024 Bamboo flowsheet Neymar sydnie [facility] Start: 07-14-2024 End: 07-14-2024 Bamboo flowsheet Neymar ey [facility] Start: 07-11-2024 End: 07-11-2024 ambulatory Yandy Adams PT Work Phone: [facility] Comment on above: Discogenic lumbar pa in (Primary Dx); Ankle joint stiffness, right; S/P ankle fusion; Varus deformity, not elsewhere classified, right ankle Start: 07-11-2024 End: 07-11-2024 Bamboo flowsheet Yandy Kodak Saundersnick PT Work Phone: [facility] Start: 07-11-2024 End: 07-11-2024 Bamboo flowsheet Yandy Kodak Saundersnick PT Work Phone: [facility] Start: 07-07-2024 End: 07-07-2024 ambulatory Neymar ey [facility] Comment on above: Ankle joint stiffnes s, right (Primary Dx); S/P ankle fusion; Varus deformity, not elsewhere classified, right ankle; Post-traumatic osteoarthritis, right ankle and foot; Chronic pain of right ankle Start: 07-04-2024 End: 07-04-2024 ambulatory Yandy Adams PT Work Phone: [facility] Comment on above: Ankle joint stiffnes s, right (Primary Dx); S/P ankle fusion; Varus deformity, not elsewhere classified, right ankle; Post-traumatic osteoarthritis, right ankle and foot; Chronic pain of right ankle Start: 07-04-2024 End: 07-04-2024 Bamboo flowsheet Yandy Adams PT Work Phone: [facility] Start: 07-04-2024 End: 07-04-2024 Bamboo flowsheet Yandy Adams PT Work Phone: [facility] Start: 06-30-2024 End: 07-01-2024 ambulatory Neymar sydnie [facility] Comment on above: Ankle joint stiffnes s, right (Primary Dx); S/P ankle fusion; Varus deformity, not elsewhere classified, right ankle; Post-traumatic osteoarthritis, right ankle and foot Start: 06-30-2024 End: 06-30-2024 Bamboo flowsheet Neymar sydnie [facility] Start: 06-30-2024 End: 06-30-2024 Bamboo flowsheet Neymar sydnie [facility] Start: 06-25-2024 End: 06-26-2024 ambulatory Idalmis Christian PT Work Phone: [facility] Comment on above: Ankle joint stiffnes s, right (Primary Dx); S/P ankle fusion; Varus deformity, not elsewhere classified, right ankle; Post-traumatic osteoarthritis, right ankle and foot Start: 06-25-2024 End: 06-25-2024 Bamboo flowsheet Idalmis Christian PT Work Phone: [facility] Start: 06-25-2024 End: 06-25-2024 Bamboo flowsheet Idalmis Christian PT Work Phone: [facility] Start: 06-23-2024 End: 06-23-2024 ambulatory Neymar Fisher [facility] Comment on above: Ankle joint stiffnes s, right (Primary Dx); S/P ankle fusion; Varus deformity, not elsewhere classified, right ankle; Post-traumatic osteoarthritis, right ankle and foot Start: 06-16-2024 End: 06-16-2024 ambulatory Idalmis Christian PT Work Phone: [facility] Comment on above: Ankle joint stiffnes s, right (Primary Dx); S/P ankle fusion; Varus deformity, not elsewhere classified, right ankle; Post-traumatic osteoarthritis, right ankle and foot Start: 06-16-2024 End: 06-16-2024 Bamboo flowsheet Idalmis Christian PT Work Phone: [facility] Start: 06-16-2024 End: 06-16-2024 Bamboo flowsheet Idalmis Christian PT Work Phone: [facility] Start: 06-12-2024 End: 06-13-2024 ambulatory Yandy Adams PT Work Phone: [facility] Comment on above: Ankle joint stiffnes s, right (Primary Dx); S/P ankle fusion; Varus deformity, not elsewhere classified, right ankle; Post-traumatic osteoarthritis, right ankle and foot Start: 06-12-2024 End: 06-12-2024 Bamboo flowsheet Yandy Adams PT Work Phone: [facility] Start: 06-12-2024 End: 06-12-2024 Bamboo flowsheet Yandy Adams PT Work Phone: [facility] Start: 05-09-2024 End: 05-11-2024 ambulatory [facility] Start: 05-09-2024 End: 05-11-2024 Subsequent hospital visit by physician [address] Room 1 [facility] CT Scan Comment on above: Post-traumatic osteo arthritis, right ankle and foot Start: 04-18-2024 End: 04-18-2024 ambulatory Amanda Diaz [place] Start: 04-18-2024 End: 04-18-2024 Patient encounter procedure Amanda Diaz [facility] Start: 04-18-2024 End: 04-18-2024 ambulatory DO Amanda Diaz Facility:[facility] Start: 04-18-2024 End: 04-18-2024 Patient encounter procedure Amanda Diaz [facility] Start: 04-03-2024 End: 04-03-2024 Office outpatient visit 40 minutes Federico Wing MD Work Phone: [facility] Comment on above: BMI 39.0-39.9,adult (Primary Dx); High risk medication use; Palpitations; Premature ventricular contractions (PVCs) (VPCs); Tachycardia; Never smoked tobacco; BMI 36.0-36.9,adult Start: 04-03-2024 End: 04-03-2024 ambulatory FEDERICO Armstrong [facility] Ambulatory Start: 03-14-2024 End: 03-16-2024 ambulatory [facility] Start: 02-15-2024 End: 02-17-2024 ambulatory [facility] Start: 02-15-2024 End: 02-17-2024 Subsequent hospital visit by physician [facility] Ct Room 1 [facility] CT Scan Comment on above: Instability of joint ; Osteoarthritis, unspecified osteoarthritis type, unspecified site Start: 02-08-2024 End: 02-08-2024 ambulatory DO Amanda Diaz [facility] Start: 02-08-2024 End: 02-08-2024 Patient encounter procedure Amanda Diaz [facility] Start: 01-18-2024 End: 01-18-2024 ambulatory DO Amanda Diaz Facility[facility] Start: 01-18-2024 End: 01-18-2024 Patient encounter procedure Amanda Diaz [facility] Start: 11-12-2023 End: 11-12-2023 Emergency department patient visit Atilio Beltran [facility] Start: 10-26-2023 End: 10-26-2023 ambulatory YANDY A PLEASNICK Not Available Start: 10-19-2023 End: 10-19-2023 ambulatory YANDY A PLEASNICK Not Available Start: 10-12-2023 End: 10-12-2023 ambulatory DO Amanda Diaz Facility[facility] Start: 10-12-2023 End: 10-12-2023 Patient encounter procedure Amanda Diaz [facility] Start: 10-10-2023 End: 10-10-2023 ambulatory YANDY A PLEASNICK Not Available Start: 10-05-2023 End: 10-05-2023 ambulatory YANDY A PLEASNICK Not Available Start: 10-03-2023 End: 10-03-2023 ambulatory YANDY A PLEASNICK Not Available Start: 2023 End: 2023 ambulatory DO Amanda Diaz Facility:[facility] Start: 2023 End: 2023 Patient encounter procedure Amanda Diaz [facility] [place] Start: 09-28-2023 End: 09-28-2023 ambulatory YANDY A PLEASNICK Not Available Start: 09-26-2023 End: 09-26-2023 ambulatory YANDY A PLEASNICK Not Available Start: 09-21-2023 End: 09-21-2023 ambulatory YANDY A PLEASNICK Not Available Start: 09-13-2023 End: 09-13-2023 ambulatory YANDY A PLEASNICK Not Available Start: 07-27-2023 End: 07-27-2023 ambulatory [facility] Ambulatory Start: 06-29-2023 ambulatory DO Amanda Diaz [facility] ity:[facility] Start: 06-29-2023 End: 07-14-2023 Pre-admission assessment Kayla Dent [facility] Start: 04-26-2023 End: 07-25-2023 ambulatory CYNDI CHEW Facility[facility] Start: 04-26-2023 End: 07-25-2023 Recurring [address] Cheryl DOVEEMILY [facility] Start: 04-16-2023 End: 04-16-2023 Office outpatient visit 25 minutes 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 [employer] Work Phone: [facility] Comment on above: High risk medication use (Primary Dx); Palpitations; Premature ventricular contractions (PVCs) (VPCs); Tachycardia Start: 04-16-2023 End: 04-16-[address] J[address]E [facility] Ambulatory Start: 04-10-2023 End: 04-11-2023 ambulatory JOSELO CHRISTIANALEC [facility] Start: 04-10-2023 End: 04-10-2023 Subsequent hospital visit by physician Marty James [facility] [place] Comment on above: Palpitations Start: 03-30-2023 End: 03-30-2023 ambulatory CYNDI CHEW Facility[facility] Start: 03-30-2023 End: 03-30-2023 Patient encounter procedure CYNDI CHEW [facility] Start: 03-05-2023 Patient encounter procedure Kayla Dent [facility] 300 DO Work Phone: Start: 03-05-[address] Kayla Chavez acility:[id number] Start: 03-01-2023 AUDIT Kayla Dent MP-[facility] 320 DO Work Phone: Start: 11-08-2022 ambulatory MD FEDERICO WING Fa cility: Start: 10-13-2022 Chart Update [facility] Work Phone: Start: 10-10-[address] Kayla Chavez acility:[id number] Start: 09-23-2022 End: 09-24-2022 Emergency department patient visit Vincent Pan [facility] Start: 09-22-[address] Kayla Chavez acility: Start: 09-22-2022 End: 09-22-2022 Patient encounter procedure Federico Wign [facility] Start: 09-21-[address] Kayla Chavez acility: Start: 09-21-2022 End: 09-21-2022 Patient encounter procedure Federico Wing [facility] Start: 09-20-2022 ambulatory MD FEDERICO WING Fa cility: Start: 09-20-2022 Office outpatient vi sit 40 minutes Kayla Dent MP-[facility] 305 DO Work Phone: Start: 09-01-2022 ambulatory eFderico Wing Facility:[id number] Start: 08-29-2022 EKG, Provider: STANTON [id number] PERSONAL INJURY PARALEGAL 1,[id number], Status: Pen, Time: 10:00 AM Kayla Dent -[facility] 300 DO Work Phone: Start: 08-29-2022 Patient encounter procedure Kayla Dent MP-[facility] 300 DO Work Phone: Start: 08-29-2022 ambulatory MD FEDERICO WING Fa cility: Start: 08-28-2022 Patient encounter procedure Kayla Dent MP-[facility] 300 DO Work Phone: Start: 08-28-2022 ambulatory MD FEDERICO WING Fa cility: Start: 08-25-2022 AUDIT Kayla Dent MP-[facility] Work Phone: Start: 08-23-2022 End: 08-25-2022 Evaluation and management of inpatient Skip Kelly Facility:[id number] Start: 08-23-2022 AUDIT Kayla Dent [facility] Work Phone: Start: 08-22-2022 End: 08-25-2022 Evaluation and management of inpatient Skip Vaca 8 Cardio ICU [id number] Start: 08-18-2022 Office consultation new/estab patient 80 min Kayla Dent -[facility] 300 DO Work Phone: Start: 08-18-[address] Skip Gonzalez Facility:[id number] Start: 08-07-2022 End: 08-07-2022 Patient encounter procedure Luna Eric MARIUSZFrancisco Javier [facility] Start: 07-12-2022 End: 07-12-2022 Patient encounter procedure Skip Gonzalez [facility] Start: 06-29-2022 End: 06-29-2022 ambulatory CAMPBELL MARY Facility:[id number] Start: 06-27-2022 End: 06-27-2022 Patient encounter procedure Kayla Dent [facility] Start: 06-26-2022 End: 07-08-2022 Pre-admission assessment Kayla Dent [facility] Start: 03-28-2022 End: 03-28-2022 Patient encounter procedure Kayla Dent [facility] Start: 12-28-2021 Chart Update Salima garcia Work Phone: -[facility] Work Phone: Start: 12-28-[address] Salima Gilman Facility:[id number] Start: 12-21-2021 Office outpatient vi sit 15 minutes Salima Gilman Work Phone: [facility] 250 DO Work Phone: Start: 12-21-2021 Patient encounter procedure Salima Recinosabrese Work Phone: [facility] 127 DO Work Phone: Start: 11-30-[address] Salima Gilman Facility:[id number] Start: 11-22-2021 Office outpatient vi sit 10 minutes Salima [facility]inosabrese [facility]: Start: 11-22-2021 Patient encounter procedure Salima [facility]inosabrese [facility]: Start: 08-18-2021 Rx Change Salima Recinos radha [facility]: Start: 07-12-2021 Office outpatient vi sit 15 minutes Salima Recinosabrese [facility]: Start: 06-23-2021 FUV, Provider: Samara Roe, Status: Pen, Time: 1:15 PM Salima Recinosabrese Work Phone: [facility] 127 DO Work Phone: Start: 06-23-2021 Patient encounter procedure Salima Recinosabrese Work Phone: [facility] 127 DO Work Phone: Start: 06-22-2021 Chart Update Salima Recinos radha Work Phone: [facility] 127 DO Work Phone: Start: 06-17-2021 Chart Update Salima garcia Work Phone: [facility] Work Phone: Start: 06-14-2021 End: 09-12-2021 Patient encounter procedure SALIMA GILMAN [facility] Start: 06-07-2021 Patient encounter procedure Salima Gilman Work Phone: [facility] 127 DO Work Phone: Start: 05-23-2021 Chart Update Salima garcia Work Phone: [facility] 127 DO Work Phone: Start: 05-11-2021 Office outpatient ne w 45 minutes Salimawilmer Gilman Work Phone: [facility] 127 DO Work Phone: Start: 05-03-2021 Patient encounter procedure Salima Candelario Kalina Work Phone: [facility] [place] Work Phone: Start: 04-27-2021 AUDIT Salima garcia Work Phone: [facility] Work Phone: Start: 04-22-2021 [facility], Provider: Simone Coulter, Status: Pen, Time: 8:00 AM Salima Kodak Kalina Work Phone: [facility] [place] Work Phone: Start: 04-21-2021 Chart Update Salima Candelario Jorje florindaese Work Phone: [facility] [place] Work Phone: Start: 12-09-2020 Patient encounter procedure Salima Recinosabrese [facility] Phone[facility] [place] Work Phone: Start: 11-23-2020 MARTHA Mongenifer Kodak Recinos abrronald Work Phone: [facility] Work Phone: Start: 10-29-2020 Patient encounter procedure Luna Zacarias PA-C [facility] Work Phone: Start: 10-14-2020 Patient encounter procedure Simone Coulter DO [facility] [place] Work Phone: Start: 09-24-2020 Patient encounter procedure Simone Coulter DO [facility] [place] Work Phone: Start: 09-16-2020 Patient encounter procedure Simone Coulter DO [facility] [place] Work Phone: Start: 08-17-2020 Patient encounter procedure Simone Coulter DO [facility] [place] Work Phone: Start: 08-09-2020 Patient encounter procedure Simone Coulter DO [facility] [place] Work Phone: Start: 06-28-2020 Patient encounter procedure Simone Coulter DO [facility] [place] Work Phone: Start: 06-15-2020 Patient encounter procedure Simone Coulter DO [facility] [place] Work Phone: Start: 05-05-2020 Patient encounter procedure Priscilla Leahy [facility] 9955 Work Phone: Start: 04-30-2020 Patient encounter procedure Priscilla Leahy [facility] 4278 Work Phone: Start: 04-26-2020 Patient encounter procedure Priscilla Leahy [facility] 4120 Work Phone: Start: 02-16-2020 Patient encounter procedure Priscilla Leahy [facility] 6115 Work Phone: Start: 01-21-2020 Patient encounter procedure Priscilla Leahy [facility] 6115 Work Phone: Start: 01-16-2020 Patient encounter procedure Priscilla Leahy [facility] 6115 Work Phone: Start: 01-12-2020 Patient encounter procedure Priscilla Leahy [facility] 6115 Work Phone: Start: 01-05-2020 Patient encounter procedure Priscilla Leahy MR-Eulglvpegz-Syfvy diomedes A2100 DO Work Phone: Start: 10-27-2019 Patient encounter procedure Priscilla Leahy TW-Egcvfsjnzd-Rutmf diomedes A2100 DO Work Phone: Start: 10-15-2019 Patient encounter procedure Christian Benito [facility] Work Phone: Start: 08-25-2019 Patient encounter procedure Christian Benito [facility] Work Phone: Start: 06-30-2019 Patient encounter procedure Salima Gilman [facility] Work Phone: Start: 05-24-2019 Patient encounter procedure Salima Gilman [facility] Work Phone: Cancer cervix - screening done Simone Coulter DO [facility] [place] Work Phone: Comment on above: 05/24/19-WNL, HPV NEG ; Encounter for gynecological examination (general) (routine) without abnormal findings Salima Gilman Work Phone: [facility] [place] Work Phone: Comment on above: 05/24/19-WNL, HPV NEG ; Mammography normal Salima perry Work Phone: [facility] [place] Work Phone: Comment on above: 05/2020-cat 019-CAT 1; Procedures Date Procedure Procedure Detail Performing Clinician Start: 05-09-2024 Ct lower extremity w /o contrast material Cyndi Chew DPM Work Phone: Start: 04-03-2024 Ecg routine ecg w/le ast 12 lds w/i&r Federico Wing MD Work Phone: Start: 07-27-2023 ECG 12-LEAD EVIE Reyes Start: 07-27-2023 FOLLOW UP IN CARDIOLOGY EVIE AGUDELO Start: 04-16-2023 Ecg routine ecg w/le ast 12 lds w/i&r 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 [employer] Work Phone: Start: 04-10-2023 [facility] JOSELO HINSON Start: 04-10-2023 Xtrnl pt activtd ecg dwnld w/r&i 30 days Joselo Hinson [employer] Work Phone: Start: 08-25-2022 End: 08-25-2022 EKG [...] stimulating hormone tsh Christian Benito Start: 06-30-2019 Scalloradha, IgE, IC Lynnette Gilman Start: 06-30-2019 Shrimp, IgE, IC Jake Gilman Start: 05-24-2019 Microscopic observat ion [Identifier] in Cervix by Cyto stain Erika Start: 05-19-2015 Microscopic observat ion [Identifier] in Cervix by Cyto stain Wallace 1 Arthrodesis of ankle Amanda Diaz Bilateral tubal [...] Author Start: 05-17-2026 Lipid panel Lipid Panel [facility] Start: 10-06-2024 End: 10-06-2024 Patient encounter procedure 10/06/2024 8:45 AM EDT Office Visit [facility] [address] [address] Federico Wing MD [address] [place] [address] [facility] Start: 07-18-2024 End: 07-18-2024 ambulatory 07/18/2024 1:30 PM EST Treatment [facility] [address] [place] [id number] Yandy Adams, PT [address] [place] [address] [facility] Start: 07-14-2024 End: 07-14-2024 ambulatory [facility] Comment on above: Ankle joint stiffnes s, right (Primary Dx); S/P ankle fusion; Varus deformity, not elsewhere classified, right ankle; Discogenic lumbar pain Start: 07-11-2024 End: 07-11-2024 ambulatory [facility] Comment on above: Arrived Start: 07-07-2024 End: 07-07-2024 ambulatory 07/07/2024 10:00 AM EST Treatment [facility] [address] [place] [address] Neymar Fisher PTA [facility] Start: 07-04-2024 End: 07-04-2024 ambulatory [facility] Comment on above: Arrived Start: 06-30-2024 End: 06-30-2024 ambulatory [facility] Comment on above: Ankle joint stiffnes s, right (Primary Dx); S/P ankle fusion; Varus deformity, not elsewhere classified, right ankle; Post-traumatic osteoarthritis, right ankle and foot Start: 06-25-2024 End: 06-25-2024 ambulatory [facility] Comment on above: Arrived Start: 06-23-2024 End: 06-23-2024 ambulatory 06/23/2024 5:00 PM EST Treatment [facility] [address] [place] [address] Neymar Fisher, [employer] [facility] Start: 06-16-2024 End: 06-16-2024 ambulatory [facility] Comment on above: Arrived Start: 06-12-2024 End: 06-12-2024 ambulatory 06/12/2024 4:30 PM EST Evaluation [facility] [address] [place] [address] Yandy Adams, PT [address] [place] [address] Arrived [facility] Comment on above: Arrived Start: 02-17-2024 COVID-19 Vaccine () COVID-19 Vaccine () [facility] Start: 02-17-2024 COVID-19 Vaccine ( season) COVID-19 Vaccine ( season) [facility] Start: 02-17-2024 Influenza vaccination Influenza Vacc ine (#1) [facility] Start: 01-17-2024 Influenza vaccination Flu vaccine (# 1) [facility] Start: 07-16-2023 End: 07-16-2023 Patient encounter procedure 07/16/2023 11:00 AM EST Office Visit [facility] [address] [facility] [address] [place] [address] Federico Wing MD [address] [facility] Medical Office [facility], [address] [place] [address] [facility] Start: 05-14-2023 FUV, Provider: Federico Wing, Status: Pen, Time: 8:45 AM FUV, Provider: Federico Wing, Status: Pen, Time: 8:45 AM -[facility] 320 DO Work Phone: Start: 05-14-2023 End: 05-14-2023 Patient encounter procedure 05/14/2023 8:45 AM EST Office Visit [facility] [address] [place] [address] Federico Wing MD [address] [facility] Medical Office [facility], [address] [place] [address] [facility] Start: 04-16-2023 End: 04-16-2023 Patient encounter procedure 04/16/2023 1:00 PM EDT Office Visit [facility] [address] [place] [address] 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, [employer]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 [address] [facility] [address] [place] [address] [facility] Start: 03-05-2023 EVENT GRACY, Provider : LEON SCHMIDT PERSONAL INJURY PARALEGAL 1,[id number], Status: Pen, Time: 3:00 PM EVENT GRACY, Provider: LEON SCHMIDT PERSONAL INJURY PARALEGAL 1,[id number], Status: Pen, Time: 3:00 PM -[facility] 320 DO Work Phone: Start: 02-16-2023 COVID-19 Vaccine ( season) COVID-19 Vaccine ( season) [facility] Start: 02-16-2023 Influenza vaccination Influenza Vacc ine (#1) [facility] Start: 12-28-2022 Screening for malignant neoplasm of breast Mammogram [facility] Start: 11-08-2022 FUVRESULTS, Provider : Federico Wing, Status: Pen, Time: 11:45 AM FUVRESULTS, Provider: Federico Wing, Status: Pen, Time: 11:45 AM -[facility] Work Phone: Start: 09-20-2022 FUVHOSP, Provider: Federico Wing, Status: Pen, Time: 11:45 AM [facility]UVHOSP, Provider: Federico Wing, Status: Pen, Time: 11:45 AM -[facility] Work Phone: Start: 09-20-2022 Patient encounter procedure [facility] [place] Start: 09-01-2022 [facility], Provider: Federico Wing, Status: Pen, Time: 9:00 AM [facility], Provider: Federico Wing, Status: Pen, Time: 9:00 AM -[facility] 300 DO Work Phone: Start: 08-29-2022 EKG, Provider: LEON SCHMIDT PERSONAL INJURY PARALEGAL 1,[id number], Status: Pen, Time: 10:00 AM EKG, Provider: LEON SCHMIDT PERSONAL INJURY PARALEGAL 1,[id number], Status: Pen, Time: 10:00 AM -[facility] Work Phone: Start: 08-29-2022 Patient encounter procedure [facility] [place] Start: 08-28-2022 EKG, Provider: LEON SCHMIDT PERSONAL INJURY PARALEGAL 1,[id number], Status: Pen, Time: 10:00 AM EKG, Provider: LEON SCHMIDT PERSONAL INJURY PARALEGAL 1,[id number], Status: Pen, Time: 10[facility] [facility] [place] [facility]: Start: 08-28-2022 Patient encounter procedure [facility] [place] Start: 08-25-2022 Arrhythmia Arrhythmia Meek e: 25-Aug-2022 [facility] Start: 08-24-2022 Arrhythmia Arrhythmia Meek e: 24-Aug-2022 [facility] Start: 08-22-2022 Chest pain Chest pain Meek e: 22-Aug-2022 [facility] Start: 08-14-2022 Screening for malignant neoplasm of colon [facility] Start: 06-09-2022 Screening for malignant neoplasm of breast Breast cancer screen [facility] Start: 05-24-2022 Screening for malignant neoplasm of cervix [facility] Start: 12-21-2021 FUV, Provider: Samara Roe, Status: Pen, Time: 9:45 AM FUV, Provider: Samara Roe, Status: Pen, Time: 9:45 AM [facility] 127 DO Work Phone: Start: 09-30-2021 COVID-19 Vaccine (2 - Booster for Chioma series) COVID-19 Vaccine (2 - Booster for Chioma series) [facility] Start: 06-23-2021 FUV, Provider: Samara Roe, Status: Pen, Time: 1:15 PM FUV, Provider: Samara Roe, Status: Pen, Time: 1:15 PM [facility] Work Phone: Start: 06-16-2021 FUV, Provider: Samara Roe, Status: Pen, Time: 1:00 PM FUV, Provider: Samara Roe, Status: Pen, Time: 1:00 PM [facility] 127 DO Work Phone: Start: 06-07-2021 [facility]OL[facility] 48, Provider: LEON GREENWOOD PERSONAL INJURY PARALEGAL 1,[id number], Status: Pen, Time: 11:00 AM HOLTER 48, Provider: LEON GREENWOOD PERSONAL INJURY PARALEGAL 1,[id number], Status: Pen, Time: 11:00 AM [facility] 127 DO Work Phone: Start: 06-07-2021 STRESS ESTELLE, Provider : [facility] NUCLEAR 01,[id number], Status: Pen, Time: 10:30 AM STRESS ESTELLE, Provider: [facility] NUCLEAR 01,[id number], Status: Pen, Time: 10:30 AM [facility] 127 DO Work Phone: Start: 06-07-2021 ECHO, Provider: [facility] ULTRASOUND 01,[id number], Status: Pen, Time: 9:45 AM ECHO, Provider: [facility] ULTRASOUND 01,[id number], Status: Pen, Time: 9:45 AM [facility] 127 DO Work Phone: Start: 05-22-2021 Lipid panel Lipids [facility] Start: 05-11-2021 NPVRFRL, Provider: Samara Roe, Status: Pen, Time: 9:30 AM NPVRFRL, Provider: Samara Roe, Status: Pen, Time: 9:30 AM [facility] Work Phone: Start: 05-11-2021 NPVRFRL, Provider: Enrrique Porter, Status: Pen, Time: 9:15 AM NPVRFRL, Provider: Enrrique Porter, Status: Pen, Time: 9:15 AM -[facility] Work Phone: Start: 05-10-2021 FUV, Provider: Salima Gilman, Status: Pen, Time: 8:45 AM FUV, Provider: Salima Gilman, Status: Pen, Time: 8:45 AM [facility] Work Phone: Start: 05-03-2021 POV, Provider: Simone Coulter, Status: Pen, Time: 10:15 AM POV, Provider: Simone Coulter, Status: Pen, Time: 10:15 AM [facility] Work Phone: Start: 04-12-2021 POV, Provider: Simone Coulter, Status: Pen, Time: 9:00 AM POV, Provider: Simone Coulter, Status: Pen, Time: 9:00 AM [facility] [place] Work Phone: Start: 04-01-2021 [facility], Provider: Simone Coulter, Status: Pen, Time: 7:30 AM [facility], Provider: Simone Coulter, Status: Pen, Time: 7:30 AM [facility] Work Phone: Start: 12-09-2020 FUV, Provider: Simone Coulter, Status: Pen, Time: 8:00 AM FUV, Provider: Simone Coulter, Status: Pen, Time: 8:00 AM [facility] Work Phone: Start: 2018 Shingles vaccine (1 of 2) Shingles vaccine (1 of 2) [facility] Start: 2018 Zoster Vaccines (1 o f 2) Zoster Vaccines (1 of 2) [facility] Start: 05-19-2018 Screening for malignant neoplasm of cervix [facility] Start: 2013 Screening for malignant neoplasm of colon [facility] Start: 1998 Screening for malignant neoplasm of cervix [facility] Start: 1990 DTaP/Tdap/Td Vaccine s (1 - Tdap) DTaP/Tdap/Td Vaccines (1 - Tdap) [facility] Start: 1989 Screening for malignant neoplasm of cervix [facility] Start: 10-03-1987 DTaP/Tdap/Td vaccine (1 - Tdap) DTaP/Tdap/Td vaccine (1 - Tdap) [facility] Start: 10-03-1987 Hepatitis B vaccine (1 of 3 - 19+ 3-dose series) Hepatitis B vaccine (1 of 3 - 19+ 3-dose series) [facility] Start: 10-03-1987 Hepatitis B Vaccines (1 of 3 - 19+ 3-dose series) Hepatitis B Vaccines (1 of 3 - 19+ 3-dose series) [facility] Start: 1986 Diabetes mellitus screening Diabetes Screening [facility] Start: 1986 Hepatitis C screening U [facility] Start: 10-03-1983 HIV screening HIV screen [facility] Start: 1980 Depression Screen Depression Screen [facility] Start: 1974 Pneumococcal Vaccine : Pediatrics (0 to 5 Years) and At-Risk Patients (6 to 64 Years) (1 - PCV) Pneumococcal Vaccine: Pediatrics (0 to 5 Years) and At-Risk Patients (6 to 64 Years) (1 - PCV) [facility] Start: 1969 MMR Vaccines (1 of 1 - Standard series) MMR Vaccines (1 of 1 - Standard series) [facility] Start: 1968 Hepatitis B Vaccines (1 of 3 - 3-dose series) Hepatitis B Vaccines (1 of 3 - 3-dose series) [facility] Start: 1968 HIV screening HIV Screening [facility] Start: 1968 Screening for malignant neoplasm of colon [facility] Start: 1968 Yearly Adult Physical Yearly Adult P hysical [facility] Hospital Chest pain Chest pain [facility] End: 02-15-2024 CT Foot - right WO contrast [facility] Work Phone: Comment on above: 1 Occurrences starti ng 02/15/2024 until 02/15/2024 ECG 12 Lead ECG 12 Lead ECG Routine High risk medication use Palpitations Premature ventricular contractions (PVCs) (VPCs) 04/16/2023 3:53 PM EDT [facility] Service Area Work Phone: End: 04-10-2023 Holter monitor study [facility] Service Area Work Phone: Comment on above: Once for 1 Occurrenc es starting 04/10/2023 until 04/10/2023 [facility] Work Phone: NEGATED: Highlighted row has been ruled out! Planned Goals not documented [facility] Work Phone: Immunizations Immunization Date Immunization Notes Care Provider Wendy wei 08-05-2021 [place] COVID-19 Vaccine 0.5 ML Intramuscular Suspension Salima [employer] Gilman Work Phone: [facility] 06-29-2021 Covid-19 Non-us Vaccine, Product Unknown Evie Barriosel [employer] Work Phone: [facility] Work Phone: NEGATED: Highlighted row has not occurred!04-18-2024 influenza virus vaccine, unspecified formulation Amanda Diaz [facility] Payers Date Payer Category [facility] [id number] 2023 Managed Care (Private) [facility] [id number]. [id number] 2023 Private Health Insurance [employer] [id number]. [id number] 2023 Unknown [id number] 2022 Blue Cross [facility] [id number]. [id number] 2022 Unknown 2022 Unknown [id number] 1968 Unknown [id number] 2.16.840.1.180527.3.579.2. 593 1968 Unknown [id number] 2.16.840.1.822632.3.579.2. 1068 1968 Unknown [id number] 2.16.840.1.005428.3.579.2. 1067 1968 Unknown [id number] 2.16.840.1.142517.3.579.2. 1068 1968 Unknown [id number] 2.16840.1.661258.3.579.2. 1067 1968 Unknown [id number] 2.16.840.1.475808.3.579.2. 1067 1968 Unknown [id number] 2.16840.1.284853.3.579.2. 356 1968 Unknown [id number] 2.840.1.892503.3.579.2. 1968 Unknown [id number] 2.840.1.788039.3.579.2. 1968 Unknown [id number] 2.840.1.870894.3.579.2. 356 1968 Unknown [id number] 2.840.1.890353.3.579.2. 1968 Unknown [id number] 2.840.1.041889.3.579.2. 356 1968 Unknown [id number] 2.840.1.920481.3.579.2. 356 1968 Unknown [id number] 2.840.1.736848.3.579.2. 356 1968 Unknown [id number] 2.16840.1.116249.3.579.2. 1245 1968 Unknown [id number] 2.16840.1.689252.3.579.2. 727 1968 Unknown [id number] 2.840.1.007591.3.579.2. 727 1968 Unknown [id number] 2.16.840.1.375779.3.579.2 1968 Unknown [id number] ..840.1.554186.3.579.2 1968 Unknown [id number] .16.840.1.101561.3.579.2 1968 Unknown [id number] ..840.1.698919.3.579.2 1968 Unknown [id number] ..840.1.141704.3.579.2 1968 Unknown [id number] 840.1.223402.3.579.21243 1968 Unknown [id number] 840.1.027635.3.579.21243 1968 Unknown [id number] 840.1.382887.3.579.21243 1968 Unknown [id number] ..840.1.692338.3.579.2 1968 Unknown [id number] 840.1.596500.3.579.2 1968 Unknown [id number] 840.1.995081.3.579.2 1968 Unknown [id number] 840.1.675736.3.579.2 1968 Unknown [id number] 08.03.840.1.817989.3.579.2 1968 Unknown [id number] ..840.1.044146.3.579.2. 1968 Unknown [id number] 08.03.840.1.289603.3.579.2. 182 1968 Unknown [id number] 840.1.474879.3.579.2. 182 1968 Unknown [id number] 2.16.840.1.135955.3.579.2. 1258 1968 Unknown [id number] ..840.1.869511.3.579.2. 1258 1968 Unknown [id number] ..840.1.346258.3.579.2. 1258 1968 Unknown [id number] .840.1.124964.3.579.2. 1258 1968 Unknown [id number] ..840.1.783349.3.579.2. 1258 1968 Unknown [id number] 840.1.150554.3.579.2. 1258 1968 Unknown [id number] 840.1.823282.3.579.2. 1258 1968 Unknown [id number] 840.1.637905.3.579.2. 1258 1968 Unknown [id number] .840.1.501794.3.579.2. 1258 1968 Unknown [id number] .840.1.259531.3.579.2. 1258 1968 Unknown [id number] 840.1.666730.3.579.2. 1258 1968 Unknown [id number] 840.1.446307.3.579.2. 1258 1968 Unknown [id number] .840.1.645899.3.579.2. 1258 1968 Unknown [id number] .840.1.511305.3.579.2. 1258 1968 Unknown [id number] 840.1.491203.3.579.2. 1258 1968 Unknown [id number] .840.1.419113.3.579.2. 1258 1968 Unknown [id number] 08.03.840.1.240073.3.579.2. 1259 1968 Unknown [id number] 2.16.840.1.750267.3.579.2. 1259 1968 Unknown [id number] 2.16.840.1.633833.3.579.2. 1259 1959 Unknown [id number] Private Health Insurance [id number] Unknown [id number] Social History Date Type Detail Facility Start: 11-04-2018 End: 04-10-2023 Never a smoker Never a smoker [facility] Work Phone: Comment on above: 3-4 cups coffee corky y, occasional tea/soda; Start: 11-04-2018 End: 04-10-[address] Sex [address] Female [facility] Tobacco smoking status No Smoking Status Entered [facility] Start: 10-29-2017 End: 07-12-2022 Tobacco smoking status Never smoked tobacco (finding) [facility] Tobacco smoking status Never [facility] Tobacco smoking consumption unknown [facility] Start: 10-29-2017 End: 04-10-2023 Tobacco use and exposure Smokeless tobacco non-user [facility] Work Phone: Start: 04-10-2023 End: 07-27-2023 Alcohol intake Lifetime non-drinker (finding) [facility] Work Phone: Start: 1970 Sex Assigned At Not on file [facility] Work Phone: Start: 04-06-2023 End: 04-03-2024 Exposure to SARS-CoV-2 (event) Not sure [facility] Start: 01-27-2019 Alcoholic beverage intake Current non-drinker of alcohol (finding) [place] Start: 1970 Sex assigned at Female [facility] [employer] Start: 02-15-2024 Gender identity Identifies as female gender (finding) [employer] NEGATED: Highlighted row - - [facility] Work Phone: Functional Status Date Assessment Result Facility 04-18-2024 Functional Status N/A [facility] 01-18-2024 Functional Status N/A [facility] 11-12-2023 Functional Status N/A [facility] 2023 Functional Status N/A [facility] 09-23-2022 Functional Status N/A [facility] 08-07-2022 Functional Status No [facility] 07-12-2022 Functional Status No [facility] Functional observable [facility] NEGATED: Highlighted row Functional performance Functional status health issues are not documented Disease [facility] Work Phone: Mental Status Date Assessment Result Facility 08-24-2022 Cognitive functi ons [id number] [facility] NEGATED: Highlighted row Cognitive function [Interpretation] Cognitive status health issues are not documented Disease [facility] Work Phone: Clinical Notes 06-17-2021 to 07-11-2024 Yandy Adams, PT - 07/11/2024 3:00 PM Luis Antonio Adams, PT - 07/04/2024 3:00 PM Martin Christian, PT - 06/25/2024 5:00 PM Martin Christian, PT - 06/16/2024 4:15 PM EST Note Date & Type Note Facility 07-11-2024 History of Present illness Narrative Time In: 3:10 PM Time Out: 4:05 PM Supervised Time: 40 min Total Time: 55 min Visit Number: 6, 40 visits per year (2 visits in 2023) Chief Complaint: M21.171 (ICD-10-CM) - Varus deformity, not elsewhere classified, right ankle M19.171 (ICD-10-CM) - Post-traumatic osteoarthritis, right ankle and foot 3. Doing better, pain intensity going down 1-2/10 more on L side. Precautions: S/p STJ fusion and delayed/non-union Subjective Mechanism of injury: Last seen here in October 2023. Fusion not complete, started bone stimulator 90 days ago. Starting to grow bone now and starting to bridge. Now has arthritis. Going to have stimulator for at least 6 more months. Pain levels minimal. Tightness present and stiff. Went back in boot from January to end of April. Wears lace up brace for yardwork, unlevel surfaces. Unable to squat. Cannot walk in bare feet. Order to return to PT for strength, balance, ROM for 6 weeks. Imaging: FINDINGS: 05/09/24 Bones: 3 screws traverse the posterior facet of the subtalar articulation, which demonstrates somewhat advanced narrowing, subchondral sclerosis, and mild osteophyte formation. Hardware alignment is normal. A large presumed ghost track is seen in the distal tibial metadiaphysis. There is mild generalized osteopenia Interventions: X 25 minutes of manual therapy lumbar PAs centrals and B unils gr 3s X 15 minutes therex per flowsheet X 15 min Estim/CP to lumbar PT Assessment: Continued with extension exercises today along with MT: STM, PA's central/unilateral. L lumbar more tender than the R with increased tone on L. STM with increased spasm and tone L buttock vs R. Continue with Part I principles. Sxs reducing gradually. Estim well tolerated, pt to report if she feels beneficial on next visit. documented in this encounter [facility] 07-04-2024 History of Present illness Narrative Time In: 3:00 pm Time Out: 4:00 pm Supervised Time: 45 min Total Time: 60 min Visit Number: 4, 40 visits per year (2 visits in 2023) Chief Complaint: M21.171 (ICD-10-CM) - Varus deformity, not elsewhere classified, right ankle M19.171 (ICD-10-CM) - Post-traumatic osteoarthritis, right ankle and foot 3. Sharp, pinching L low back pain goes across to buttock area. Approx 3 weeks now. Vacuum, sitting, stand +. Foot feels fantastic. Back and hip pain with walking. Has never had this before. Precautions: S/p STJ fusion and delayed/non-union Subjective Mechanism of injury: Last seen here in October 2023. Fusion not complete, started bone stimulator 90 days ago. Starting to grow bone now and starting to bridge. Now has arthritis. Going to have stimulator for at least 6 more months. Pain levels minimal. Tightness present and stiff. Went back in boot from January to end of April. Wears lace up brace for yardwork, unlevel surfaces. Unable to squat. Cannot walk in bare feet. Order to return to PT for strength, balance, ROM for 6 weeks. Imaging: FINDINGS: 05/09/24 Bones: 3 screws traverse the posterior facet of the subtalar articulation, which demonstrates somewhat advanced narrowing, subchondral sclerosis, and mild osteophyte formation. Hardware alignment is normal. A large presumed ghost track is seen in the distal tibial metadiaphysis. There is mild generalized osteopenia Interventions: X 30 minutes of manual therapy lumbar PAs centrals and B unils gr 3s X 15 minutes therex per flowsheet X 15 minutes of Estim/CP lumbar PT Assessment: Assessed for LBP today which is interfering with her function of ambulating, standing and walking. She reports no pain at her ankle at all. Trial of extension based regimen per flowsheet with HEP to perform over the weekend. She will perform and then reassess for effectiveness next session. She did not have reduction of pain with today's trial before leaving PT except for roadkill position which offered her relief. documented in this encounter [facility] 06-25-2024 History of Present illness Narrative Time In: 5:05 pm Time Out: 6:00 pm Supervised Time: 45 min Total Time: 55 min Visit Number: 2, 40 visits per year (2 visits in 2023) Chief Complaint: M21.171 (ICD-10-CM) - Varus deformity, not elsewhere classified, right ankle M19.171 (ICD-10-CM) - Post-traumatic osteoarthritis, right ankle and foot Precautions: S/p STJ fusion and delayed/non-union Subjective Mechanism of injury: Last seen here in October 2023. Fusion not complete, started bone stimulator 90 days ago. Starting to grow bone now and starting to bridge. Now has arthritis. Going to have stimulator for at least 6 more months. Pain levels minimal. Tightness present and stiff. Went back in boot from January to end april. Wears lace up brace for yardwork, unlevel surfaces. Unable to squat. Cannot walk in bare feet. Order to return to PT for strength, balance, ROM for 6 weeks. Imaging: FINDINGS: 05/09/24 Bones: 3 screws traverse the posterior facet of the subtalar articulation, which demonstrates somewhat advanced narrowing, subchondral sclerosis, and mild osteophyte formation. Hardware alignment is normal. A large presumed ghost track is seen in the distal tibial metadiaphysis. There is mild generalized osteopenia 2/10 pain again today. Patient notes significant decrease in pain, overall. Was tired after last work out but not sore. Interventions: X 30/10 min therapeutic exercise for stretching and LE strengthening X 10 min neuro-deborah for balance training. X 10 min manual therapy: soft tissue mobes, scar mobes PT Assessment: Continued with exercises per grid today. Single leg stance exercise are too difficult at this time. Added resistance to tandem stance. Ended session with the bike. Patient notes slight soreness post session. Assess patients response at next session. Plan: 2x per week x 6 weeks documented in this encounter [facility] 06-16-2024 History of Present illness Narrative Time In: 4:15 pm Time Out: 5:00 pm Supervised Time: 45 Total Time: 45 Visit Number: 2 Chief Complaint: M21.171 (ICD-10-CM) - Varus deformity, not elsewhere classified, right ankle M19.171 (ICD-10-CM) - Post-traumatic osteoarthritis, right ankle and foot Precautions: S/p STJ fusion and delayed/non-union Subjective Mechanism of injury: Last seen here in October 2023. Fusion not complete, started bone stimulator 90 days ago. Starting to grow bone now and starting to bridge. Now has arthritis. Going to have stimulator for at least 6 more months. Pain levels minimal. Tightness present and stiff. Went back in boot from January to end april. Wears lace up brace for yardwork, unlevel surfaces. Unable to squat. Cannot walk in bare feet. Order to return to PT for strength, balance, ROM for 6 weeks. Imaging: FINDINGS: 05/09/24 Bones: 3 screws traverse the posterior facet of the subtalar articulation, which demonstrates somewhat advanced narrowing, subchondral sclerosis, and mild osteophyte formation. Hardware alignment is normal. A large presumed ghost track is seen in the distal tibial metadiaphysis. There is mild generalized osteopenia Soft Tissue: No significant soft tissue edema or fluid collections. Joint: Mild tibiotalar narrowing with subchondral cysts in the talar dome. The ankle mortise is intact. 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 PT Assessment: Therapy Diagnosis: LE Weakness, lack of DF ROM and general de-conditioning s/p fusion R ankle with delayed/non-union STJ Functional Limitations: LEFS: 51/80 Playback Operator Goals: I HEP AROM R ankle DF +5* MMT RLE 4+/5 or better grossly 4. Squat at least 75% of normal range without compensation on R Rehab Potential: Excellent Plan: 2x per week x 6 weeks I hereby deem this POC medically necessary. Please sign below and fax back to the number below. Physician Signature: Date: documented in this encounter [facility] 06-12-2024 History of Present illness Narrative Images from the original note were not included. Time In: 4:30 pm Time Out: 5:35 pm Supervised Time: 65 Total Time: 65 Evaluation Time: 20 Therex: 20 Neuromuscular re-education: 25 Visit Number: 1 Chief Complaint: M21.171 (ICD-10-CM) - Varus deformity, not elsewhere classified, right ankle M19.171 (ICD-10-CM) - Post-traumatic osteoarthritis, right ankle and foot Precautions: S/p STJ fusion and delayed/non-union Subjective Mechanism of injury: Last seen here in October 2023. Fusion not complete, started bone stimulator 90 days ago. Starting to grow bone now and starting to bridge. Now has arthritis. Going to have stimulator for at least 6 more months. Pain levels minimal. Tightness present and stiff. Went back in boot from January to end april. Wears lace up brace for yardwork, unlevel surfaces. Unable to squat. Cannot walk in bare feet. Order to return to PT for strength, balance, ROM for 6 weeks. Imaging: FINDINGS: 05/09/24 Bones: 3 screws traverse the posterior facet of the subtalar articulation, which demonstrates somewhat advanced narrowing, subchondral sclerosis, and mild osteophyte formation. Hardware alignment is normal. A large presumed ghost track is seen in the distal tibial metadiaphysis. There is mild generalized osteopenia Soft Tissue: No significant soft tissue edema or fluid collections. Joint: Mild tibiotalar narrowing with subchondral cysts in the talar dome. The ankle mortise is intact. 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 Squat at least 75% of normal range without compensation on R Rehab Potential: Excellent Plan: 2x per week x 6 weeks Treatment: Today's session consisted of IE, therex, neuromuscular re-education of light stretching, strengthening and balance exercises per flowsheet. Education in the dx, px, POC, goals, expected treatment procedures, outcomes, timeframe for completion discussed. I hereby deem this POC medically necessary. Please sign below and fax back to the number below. Physician Signature: Date: documented in this encounter [facility] 04-03-2024 History of Present illness Narrative CARDIOLOGY [...] name below, I, Michelle Jackson LPN , Alejandrina attest that this documentation has been prepared under the direction and in the presence of Federico Wing MD. documented in this encounter [facility] Work Phone: 04-03-2024 Instructions Michelle Jackson LPN - 04/03/2024 12:45 PM EDT DID YOU KNOW We have a pharmacy here in the [facility]. They can fill all prescriptions, not just cardiac medications. Prescriptions from other pharmacies can easily be transferred to the pharmacy by the pharmacist on site. pharmacies offer FREE HOME DELIVERY on medications to anywhere in [place]. They can sync your medications. Typically prescriptions can be ready in 10 - 15 minutes. If pharmacy is unable to fill your prescription or if cost is more than your paying now the Pharmacist can easily transfer back to your Pharmacy of choice. Pharmacy phone # [phone]. Please bring all medicines, vitamins, and herbal supplements with you in original bottles to every appointment!!!! Prescriptions will not be filled unless you are compliant with your follow up appointments or have a follow up appointment scheduled as per instruction of your physician. Refills should be requested at the time of your visit. documented in this encounter [facility] Work Phone: 01-18-2024 Hospital Discharge instructions Follow Up Care 01/18/2024 13:14:20 With:Amanda Diaz DO, FAM, PED Address: [address] [place] [address] [phone] When:3 months Comments:20 [facility]-----To go instructions:I recommend the book: [place] to help with supporting your weight loss journeyRead Driven to Distraction by Benjamín Adler to learn more about ADHD https://www.[employer]/slid eshows/emna-xkmfjnut-gqiel-off-o ur-feet/Begin bupropion 150mg; if you tolerate that but feel there's room for improvement, we should increase to 300mgIf tongue continues to be an issue, I would recommend that we go to ENTI recommend labs soon - will call with results------*When you see providers outside of [facility], please request that they send office visit [...] starting at age 50Follow up 3 months [facility] [place] 11-13-2023 Hospital Discharge instructions Patient Education 11/12/2023 [...] Follow these instructions at home: Medicines Take nktq-iwv-gsufbiw and prescription medicines only as told by [...] provider. Document Revised: 08/18/2021 Document Reviewed: 08/18/2021 [employer] Patient Education 2022 [employer]spin[employer]. Follow Up Care 11/12/2023 20:34:48 With:Skip Gonzalez Address:Unknown When:11/15/2023 With:Amanda Diaz Address: [address] [place] [id number] When:11/15/2023 Comments:Call the office of your primary [...] legs, or any new or worsening symptoms. [facility] 11-12-2023 Evaluation + Plan note Extrac [...] Date:01/11/2024 01:20:00 PM Scheduled Provider:Amanda Diaz DO Location:[facility] Appointment Type: Open Future Scheduled Tests Radiology* MA Mamm Screen w/CAD if perf and 3D Ismael 10/02/23 [facility]04-17-2024 Hospital Discharge instructions Follow Up Care 10/03/2023 16:00:29 With:Amanda Diaz DO, FAM, PED Address: [address] [place] [address] [phone] When:3 months Comments:20 min slotTo go instructions:If you decide you want to start bupropion, let me know and I'll submit 150mg XLStop pop for a week, if that doesn't help your symptoms, I recommend that you see a ENT to discuss--------*When you see providers outside of [facility], please request that they send office visit [...] starting at age 48Follow up 3 months [facility] [place] 04-16-2024 Hospital Discharge instructions Patient Education 2023 17:45:03 Major Depressive Disorder, Adult, Mbkl-jc-Gjqb Major Depressive Disorder, Adult Major depressive disorder [...] needs of life, such as food and intermediate. ?Being treated poorly because of race, sex, or bahai (discrimination). Health and mental problems that you [...] medicines. ?Any drug use. General instructions Take opne-rvw-anilimc and prescription medicines and herbal preparations only as told by your doctor. Eat a healthy diet. Get a lot of sleep. Think about joining a support group. Your doctor may be able to suggest one. Keep all follow-up visits as told by your doctor. This is important. Where to find more information: National [place] on Mental Illness: www.nhan.org [place] National [place] of Mental Health: www.nimh.nih.gov [place] [employer]: www.psychiatry.org/patients-families/ Contact a doctor if: [...] department or: Call your local emergency services (320 in the [place] Call a suicide crisis helpline, such as the National Suicide Prevention Lifeline at or 762 in the [place] This is open 24 hours a day in the [place] Text the Crisis Text Line at 853431 (in the [place] Summary Major depressive disorder [...] provider. Document Revised: 12/28/2021 Document Reviewed: 05/15/2020 [employer] Patient Education 2022 Espinela. Follow Up Care 06/29/2023 15:41:40 With:Amanda Diaz DO, FAM, PED Address: [address] [place] [address] [phone] When:3 months Comments:20 min slotTo go instructions:Follow up with cardiology as plannedHave labs drawn soon - I will call with the resultsI have placed a referral for pelvic floor therapy - the hospital will call in the next week or two to scheduleWhen you see providers outside of [facility], please request that they send office visit notes every time you're seen there - this helps us take better care of youState of Slim - for weight lossf/u 3-6 months [facility] 04-16-2024 Evaluation + Plan note Future Scheduled Tests Laboratory* HgbA1c 10/02/23 * TSH With T4fr Reflex 10/02/23 * CBC w/ Auto Diff 10/02/23 * Comprehensive Metabolic Panel 10/02/23 * Lipid Panel 10/02/23 Radiology* MA Mamm Screen w/CAD if perf and 3D Ismael 10/02/23 [facility] 10-30-2023 History of Present illness Narrative* 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, DANIELA-LINDA - 04/16/2023 1:00 PM EDT Rasheeda Hanna [...] with planned fusion to be done at [facility] with Dr. Cyndi Bloom, operative date is [...] METS without cardiac symptoms. Testing Reviewed Recent [facility] Holter monitor preliminary report shows sinus [...] HISTORY 05/24/2019 Cholecystectomy OTHER SURGICAL HISTORY 05/24/2019 Viola tooth extraction OTHER SURGICAL HISTORY 05/24/2019 section [...] to prepare this document. [facility] Phone: 1(688) 148-998704-09-2023 Evaluation + Plan noteExtracted from: Title:ED Note Author:Vincent Pan MD Date: 3 1. Accidental overdose (T50. 901A: Poisoning by unspecified drugs, medicaments and biological substances, accidental (unintentional), initial encounter) Orders: ECG 12 Lead Adult ECG 12 Lead Adult ECG [address] [facility]04-09-2023 Hospital Discharge instructions Patient Education 09/24/2022 04:14:34 Accidental Drug Poisoning, Adult Accidental Drug Poisoning, Adult Accidental drug poisoning happens when a person accidentally takes too much of a substance, such asa prescription medicine, an rvyl-vjt-kbdrbny medicine, a vitamin, a supplement, or an [...] medicines. Cocaine. Heroin. Multivitamins that contain iron. Wsyr-ajp-eixmkdk cold and cough medicines. What increases the [...] Follow these instructions at home: Medicines Take dqpb-sso-ufhpulo and prescription medicines only as told by your health care provider. Before taking a new medicine, ask your health care provider whether the medicine: ?May cause side effects. ?Might react with other medicines. Keep a list of all the medicines that you take, including qaze-kmw-pvrfdvc medicines, vitamins, supplements, and herbs. Bring this [...] your cell phone. The hotline of the [employer] is . [...] a substance, such asa prescription medicine, an vhne-vcb-mmmnuka medicine, a vitamin, a supplement, or an [...] 08/18/2005 Document Revised: 05/17/2018 Document Reviewed: 05/06/2018 [employer] Patient Education 2020 Espinela. Follow Up Care 09/23/2022 22:10:17 With:Kayla Dent Address: [address] [place] [address]- Business (1) When:09/27/[address] [facility]03-10-2023 NoteSend Summary: Discharge Summary Providers: Provider RoleProvider Name Kayla Minaya AttendingSkip Kelly, Kayla Manning Note Recipients: Kayla Dent MD - [id number] [] Discharge: Summary: Admission Date: .22-Aug-2022 14:34:00 Discharge Date: 25-Aug-2022 Attending Physician at Discharge: Skip Kelly Admission Reason: Palpitations Final Discharge Diagnoses: PVC (premature ventricular contraction) Bigeminy Bradycardia Dizziness Procedures: none Condition at Discharge: Satisfactory Disposition at Discharge: .Home Vital Signs: T PRBPMAPSpO2 Value36.56355098/621200% Date/Time08/25 12: 12: 12: 12: 12: 12:17 [...] Electrophysiology follow-up Scheduled Date/Time: 20-Sep-2022 11:45 Location: [facility] office in [place] [address] Discharge Medications: Home Medication sertraline 50 mg [...] Last Updated: 25-Aug-2022 16:22 by Skip Kelly)[facility]03-10-2023 Hospital Discharge instructions* Activity:activity as tolerated. * Follow Up Appointment 1:Physician/Dept/Service: Dr. Gandhi for Referral: Electrophysiology follow-upScheduled Date/Time: 20-Sep-2022 11:45Location: [facility] office in [address] [address]Phone Number: [phone] * Gold Form - Other Clinicians:Other Clinician Instructions: Please follow up in the [place] office as discussed with EP for repeat EKGs on monday 08/28 and tuesday 08/29. You will be increasing your flecainide to 75mg twice daily on Sunday. Please call the office or return to the hospital if you have worsening chest pain, shortness of breath, if you pass out, or have any other concerning symptoms. [facility]03-07-2023 NoteHistory of Present Illness: /Lactating: [...] been reviewed. Objective: Objective Information: T PRBPMAPSpO2 Value36.65369078/8998% Date/Time08/22 14: 16: 16: 16: 16:44 Range(36.8C [...] Referenced From Triage - ED 22-Aug-2022 14:46[facility] 06-18-2021 History of Present illness [...] Cannot exclude biatrial enlargement on EKG [facility] [address] DO Work Phone: 1(183) 587-613401-01-2022 History of Present illness Narrative* Primary MD: [...] * Sincerely, * Samara Roe MD [facility] 250 DO Work Phone: 1(352) 836-518012-31-2021 Evaluation + Plan note Future Scheduled Tests Laboratory* [place] 06/17/21 [facility]12-31-2021 History of Present illness Narrative* COUGH: [...] cough drops * - Not a smoker -[facility] Work Phone: [phone]) 831-200912-31-2021 History of Present illness Narrative* COUGH: * [...] cough drops * - Not a smoker -[facility] [address] DO Work Phone: Evaluation + Plan note Future Appointments Appointment Date:06/27/2022 08:30:00 AM Scheduled Provider: [facility] Type:MA Screen () Future Scheduled Tests Laboratory* [place] 06/17/21 Radiology* MA Mamm Screen w/CAD if perf and 3D Ismael [facility]27/[facility] Future Appointments Appointment Date:07/07/2022 09:00:00 AM Scheduled Provider: [facility] Type:CV [facility]Event () [facility] Future Appointments Appointment Date:07/12/2022 04:00:00 PM Scheduled Provider:Carlos MCMAHON, Skip Katz [facility] Type:[facility]iology [facility] (FT[facility] Future Appointments Appointment Date:09/22/2022 09:30:00 AM Scheduled Provider: [facility] App[facility] Type:[facility] () [facility] Future Appointments Appointment Date:10/05/2023 08:40:00 AM Scheduled Provider:Amanda Diaz DO Location:[facility] Appointment Type:FM [facility] Future Appointments Appointment Date:2023 04:20:00 PM Scheduled Provider:Amanda Diaz DO Location:[facility] Appointment Type:FM [facility] Future Appointments Appointment Date:01/11/2024 01:20:00 PM Scheduled Provider:Amanda Diaz DO Location:[facility] Appointment Type: Open Future Scheduled Tests Radiology* MA Mamm Screen w/CAD if perf and 3D Ismael 10/02/23 [facility] Future Appointments Appointment Date:04/18/2024 09:20:00 AM Scheduled Provider:Amanda Diaz DO Location:[facility] Appointment Type: Open Future Scheduled Tests Radiology* MA Mamm Screen w/CAD if perf and 3D Ismael 10/02/23 [facility] Evaluation + Plan note Future Appointments Appointment Date:04/18/2024 09:20:00 AM Scheduled Provider:Amanda Diaz DO Location:[facility] Appointment Type: Open [facility] Evaluation + Plan note Future Appointments Appointment Date:07/25/2024 09:20:00 AM Scheduled Provider:Amanda Diaz DO Location:[facility] Appointment Type: Open [facility] Evaluation + Plan note Future Appointments Appointment Date:07/25/2024 09:20:00 AM Scheduled Provider:Amanda Diaz DO Location:[facility] Appointment Type: Open Diagnostic Tests Pending * PTH Intact 04/18/24 * Calcium Level Ionized 04/18/24 [facility] Evaluation note* Psychological: Appropriate mood and [...] x3, no distress, alert and cooperative [facility]* Diagnosis Palpitations documented in this encounter [facility] Work Phone: Evaluation note* Diagnosis High risk medication use- Primary Palpitations Premature ventricular contractions (PVCs) (VPCs) Other premature beats Tachycardia Unspecified tachycardia documented in this encounter [facility] Work Phone: Evaluation note* Diagnosis Palpitations documented in this encounter [facility] Work Phone: Evaluation note* Diagnosis BMI 39.0-39.9,adult- Primary High risk medication use Palpitations Premature ventricular contractions (PVCs) (VPCs) Other premature beats Tachycardia Unspecified tachycardia Never smoked tobacco BMI 36.0-36.9,adult documented in this encounter [facility] Work Phone: Evaluation note* Diagnosis Post-traumatic osteoarthritis, right ankle and foot [facility] Diagnosis Ankle joint stiffness, right- Primary S/P ankle fusion Other postprocedural status Varus deformity, not elsewhere classified, right ankle Post-traumatic osteoarthritis, right ankle and foot documented in this encounter [facility]* Diagnosis Ankle joint stiffness, right- Primary S/P ankle fusion Other postprocedural status Varus deformity, not elsewhere classified, right ankle Post-traumatic osteoarthritis, right ankle and foot documented in this encounter [facility] note* Diagnosis Ankle joint stiffness, right- Primary S/P ankle fusion Other postprocedural status Varus deformity, not elsewhere classified, right ankle Post-traumatic osteoarthritis, right ankle and foot documented in this encounter [facility] note* Diagnosis Ankle joint stiffness, right- Primary S/P ankle fusion Other postprocedural status Varus deformity, not elsewhere classified, right ankle Post-traumatic osteoarthritis, right ankle and foot Chronic pain of right ankle documented in this encounter [facility] HealthcareEvaluation note* Diagnosis Ankle joint stiffness, right- Primary S/P ankle fusion Other postprocedural status Varus deformity, not elsewhere classified, right ankle Post-traumatic osteoarthritis, right ankle and foot Chronic pain of right ankle documented in this encounter [facility] HealthcareEvaluation note* Diagnosis Instability of joint Other joint derangement, not elsewhere classified, unspecified site Osteoarthritis, unspecified osteoarthritis type, unspecified site [facility] Diagnosis Discogenic lumbar pain- Primary Ankle joint stiffness, right S/P ankle fusion Other postprocedural status Varus deformity, not elsewhere classified, right ankle documented in this encounter [facility] HealthcareEvaluation note* Diagnosis Ankle joint stiffness, right- Primary S/P ankle fusion Other postprocedural status Varus deformity, not elsewhere classified, right ankle Discogenic lumbar pain documented in this encounter [facility] HealthcareHistory of Present illness NarrativeThe patient comes in today. She is two weeks out right carpal tunnel release. She states numbness and tingling has completely resolved in the interim since surgery. Denies any fevers, chills, constitutional symptoms. She has been working on gentle motion recovery, keeping the incision clean and dry.-[facility] Work Phone: History of Present [...] arise, * Sincerely, * Samara Roe MD [place] [address] DO Work Phone: History of Present illness [...] arise, * Sincerely, * Samara Roe MD [facility] Work Phone: History of Present illness Narrative* [...] arise, *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
== END 2024-07-18 09:24 | disposition home or self-care (01) ==
LOC: EC 09:23
PROVIDERS: Visit Provider Podiatrist Foot & Ankle Surgery
DX: M79.671 Pain in right foot (principal); M24.674 Ankylosis, right foot
CPT/HCPCS: 73630

== ENCOUNTER 2025-01-09 08:47 | Outpatient (OUT) | payer BC, SELFPAY ==
--- OUTSIDE RECORDS SUMMARY | 2024-05-30 05:15 | XMS_ITS ---
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 Name Role Phone Micah Diaz II, DO Primary Care Provider Unav ailable Basil Correa Unavailable [phone] Allergies Allergen (clinical drug ingredient) Drug/Non Drug Allergy documented on EMR Reaction Allergy Type Onset Date Status Shellfish (FN) shell fish (uncoded) shortness of breath Allergy Active Reason For Referral Reason S/P subtalar joint f usion, delayed union Diagnosis 1 Varus deformity, not elsewhere classified, 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) Diagnosis 2 Post-traumatic osteo arthritis, right ankle and foot (M19.171) Referral Organization [facility] (PODIATRY) Referring Provider First Name Basil Referring Provider Last Name Sunny Referring Provider Speciality Podiatry Referred Provider Specialty Physical The rapist Referral Priority Routine REASON FOR VISIT CT scan review - we have images/report Medications Medication SIG (Take, Route, Frequency, Duration) Notes Start Date End Date Status Omeprazole 40 MG 1 capsule 30 minutes before morning meal Orally Once a day Active VESIcare 10 MG 1 tablet Orally Once a day Active Sertraline HCl 50 MG 1 tablet Orally Onc e a day Active ZyrTEC 10 MG 1 tablet Orally Once a day Active Vitamin D3 125 MCG (5000 UT) 1 capsule O rally Once a day Active Metoprolol Succinate 25 MG 1 capsule Ora lly Once a day Active Iron 325 (65 Fe) MG 1 tablet Orally Thre e times a Week Active Magnesium 400 MG as directed Orally Active Lysine 500 MG as directed Orally Active Flecainide Acetate 100 MG 0.5 tablet Ora lly every 12 hrs Active Aspirin 81 MG 1 tablet Orally Once a day Active Wellbutrin XL 300 MG 1 tablet in the mor pascale Orally Once a day 05/30/2024 Active Centrum Silver 50+Women - as directed Orally Active B Complex - as directed Orally Active dexAMETHasone Sodium Phosphate 4 MG/ML 1.5ml - 2.5ml topically up to 3 times weekly with physical therapy for 30 days 03/12/2024 Active Social History Tobacco Use: Social History Observation Description Date Details (start date - stop date) Never Smoker NA - NA Tobacco Use/Smoking Question Answer Notes Patient is a nonsmoker Vital Signs Weight 192 lbs 05/30/2024 Height 60 in 05/30/2024 Temperature 97.1 degrees Fahrenheit 05/30/20 24 Heart Rate 73 /min 05/30/2024 BMI 37.49 kg/m2 05/30/2024 Oximetry 98 % 05/30/2024 Encounters Encounter Location Date Provider Diagnosis [facility] (PODIATRY) [address] [place] [address] [place] [address] 05/30/2024 Basil Correa Pseudarthrosis after fusion or arthrodesis M96.0 ; Post-traumatic osteoarthritis, right ankle and foot M19.171 ; Other specified disorders of bone density and structure, right ankle and foot M85.871 and Displaced intraarticular fracture of right calcaneus, sequela S92.061S Assessments Encounter Date Diagnosis (ICD Code) Assessment Notes Treatment Notes Treatment Clinical Notes Section Notes 05/30/2024 Pseudarthrosis after fusion or arthrodesis (ICD-10 - M96.0) Patient presents for follow-up with her and is just over 1 year status post subtalar joint fusion with calcaneal ostomy secondary to previous calcaneal fracture. She has been using the bone stimulator and taking vitamin D and calcium.Her heel pain may in fact be secondary to prolonged weightbearing in the cam boot and the Achilles tendon pain that she has when she is out of the boot is also likely secondary to disuse and prolonged immobilization therefore I encouraged progression out of the boot as pain allows with or without OTC ankle brace. In addition an order was provided for physical therapy.Findings on her CT scan are favorable that her nonunion is showing signs of healing and so I recommended to continue using the bone stimulator and vitamin D/calcium supplementation. I am optimistic that she will not require revision surgery.Much encouragement was provided today and although it is likely that her transition to normal shoes will be slow and she will likely have good days and bad days she should listen to her foot but can increase activity as she tolerates out of the cam boot. Follow-up in 6 weeks with weightbearing foot x-rays 05/30/2024 Post-traumatic osteoarthritis, right ankle and foot (ICD-10 - M19.171) 05/30/2024 Other specified disorders of bone density and structure, right ankle and foot (ICD-10 - M85.871) 05/30/2024 Displaced intraarticular fracture of right calcaneus, sequela (ICD-10 - S92.061S) Plan Of Treatment Treatment Notes Assessment Notes Pseudarthrosis after fusion or arthrodes is Patient presents for follow-up with her and is just over 1 year status post subtalar joint fusion with calcaneal ostomy secondary to previous calcaneal fracture. She has been using the bone stimulator and taking vitamin D and calcium.Her heel pain may in fact be secondary to prolonged weightbearing in the cam boot and the Achilles tendon pain that she has when she is out of the boot is also likely secondary to disuse and prolonged immobilization therefore I encouraged progression out of the boot as pain allows with or without OTC ankle brace. In addition an order was provided for physical therapy.Findings on her CT scan are favorable that her nonunion is showing signs of healing and so I recommended to continue using the bone stimulator and vitamin D/calcium supplementation. I am optimistic that she will not require revision surgery.Much encouragement was provided today and although it is likely that her transition to normal shoes will be slow and she will likely have good days and bad days she should listen to her foot but can increase activity as she tolerates out of the cam boot. Follow-up in 6 weeks with weightbearing foot x-rays Referrals Referral Date Details 05/30/2024 05/30/2024, S/P subt alar joint fusion, delayed union Progress Notes * William HANNA:1970 (53 yo F)Acc No.[id number]:05/30/2024 Follow Up Patient: Rasheeda BAUGH Provider: Mary Correa DPM, MS :1970 A ge:53 Y S ex:Female Date:05/30/2024 Address:[place], [id number] Pcp:Micah Diaz II, DO Check In:08:55 AM ESTCheck O ut:10:15 AM EST Subjective: * Chief Complaints: * C T scan review - we have images/report * HPI: G eneral: CT review right ankle. S/P right sutalar joint fusion , ankle arthroscopy, lateral displacement calcaneal osteotomy, peroneal tendon transfer, modified brostrom gandhi lateral ankle stabilization DOS 05/14/23. Continues to wear cam boot most of the time. She relates that pain is similar in nature but seemingly less intense. The last 6 weeks have been the best they have been in a very long time. She has been using the bone stimulator for approximately 8 weeks. Her point of maximal tenderness is on her plantar proximal heel as well as having pain over her Achilles when out of the boot. * ROS: G eneral/Constitutional: Chills d enies. F ever d enies. W eight gain?denies. W eight loss d enies. S kin: Skin Ulcers d enies. S kin lesion(s) d enies. ? C ardiovascular: Difficulty breathing on exertion d enies. L eg cramps?denies. E benjamin d enies. C hest pain d enies. R espiratory: Difficulty breathing d enies. D yspnea d enies.?Cough d enies. G astrointestinal: Diarrhea d enies. N ausea d enies. V omiting?denies. M usculoskeletal: Bone/Joint Symptoms d enies. C long term Pain d enies.?Leg cramps d enies. N eurologic: Numbness d enies. T ingling d enies . G ait abnormality d enies. ? H ematology: Anemia D enies. E asy bruising d enies. ? A ll Other Systems: Review of Systems (ROS) S ee HPI for details,All others negative except those mentioned in HPI. * Active Problem List M19.171 Post-traumatic osteo arthritis, right ankle and foot Modified On:09/25/2023U Status:confirmed M21.171 Varus deformity, not elsewhere classified, right ankle Modified On:09/25/2023 Status:confirmed M79.671 Right foot pain Modified On:07/10/2023U Status:confirmed M76.71 Peroneal tendinitis, right leg Modified On:06/19/2023U Status:confirmed S92.061S Displaced intraartic ular fracture of right calcaneus, sequela Modified On:09/25/2023U Status:confirmed M25.371 Other instability, r ight ankle Modified On:04/06/2023U Status:confirmed M19.171 Post-traumatic arthr itis of right ankle Modified On:05/16/2023U Status:confirmed M19.071 Arthritis of ankle, right Modified On:05/16/2023U Status:confirmed M19.071 Osteoarthritis of ri ght ankle and foot Modified On:08/05/2023U Status:confirmed I49.9 Cardiac arrhythmia Modified On:08/05/2023U Status:confirmed N39.3 Stress incontinence Modified On:08/05/2023U Status:confirmed F32.9 Chronic depression Modified On:08/05/2023 Status:confirmed * Medical History: * Surgical History: C -sections 1990,1992,1996Gallbladder 2016Bilateral Carpal Tunnel 2020rt subtalar joint fusion, ankle arthroscopy, lateral displacement calcaneal osteotomy, peroneal tendon transfer, modified Brostrom Gandhi lateral ankle stabilization DOS 05/14/23 Dr Correa 05/14/2023 * Hospitalization/Major Diagno stic Procedure: S ee above * Family History: F ather: alive. M other: , diagnosed with Other malignant neoplasm of unspecified site. * Social History: T obacco Use: T obacco Use/Smoking P atient is a n onsmoker * Medications: T akingAspirin 81 MG Tablet Chewable 1 tablet Orally Once a day B Complex - Capsule as directed Orally Centrum Silver 50+Women(Multiple Vitamins-Minerals) - Tablet as directed Orally dexAMETHasone Sodium Phosphate 4 MG/ML Solution 1.5ml - 2.5ml topically up to 3 times weekly with physical therapy Flecainide Acetate 100 MG Tablet 0.5 tablet Orally every 12 hrs Iron 325 (65 Fe) MG Tablet 1 tablet Orally Three times a Week Lysine 500 MG Tablet as directed Orally Magnesium 400 MG Tablet as directed Orally Metoprolol Succinate 25 MG Capsule ER 24 Hour Sprinkle 1 capsule Orally Once a day Omeprazole 40 MG Capsule Delayed Release 1 capsule 30 minutes before morning meal Orally Once a day Sertraline HCl 50 MG Tablet 1 tablet Orally Once a day VESIcare(Solifenacin Succinate) 10 MG Tablet 1 tablet Orally Once a day Vitamin D3 125 MCG (5000 UT) Capsule 1 capsule Orally Once a day Wellbutrin XL(buPROPion HCl ER (XL)) 300 MG Tablet Extended Release 24 Hour 1 tablet in the morning Orally Once a day ZyrTEC(Cetirizine HCl) 10 MG Tablet Chewable 1 tablet Orally Once a day Medication List reviewed and reconciled with the patientTaking Aspirin 81 MG Tablet Chewable 1 tablet Orally Once a day Taking B Complex - Capsule as directed Orally Taking Centrum Silver 50+Women(Multiple Vitamins-Minerals) - Tablet as directed Orally Taking dexAMETHasone Sodium Phosphate 4 MG/ML Solution 1.5ml - 2.5ml topically up to 3 times weekly with physical therapy Taking Flecainide Acetate 100 MG Tablet 0.5 tablet Orally every 12 hrs Taking Iron 325 (65 Fe) MG Tablet 1 tablet Orally Three times a Week Taking Lysine 500 MG Tablet as directed Orally Taking Magnesium 400 MG Tablet as directed Orally Taking Metoprolol Succinate 25 MG Capsule ER 24 Hour Sprinkle 1 capsule Orally Once a day Taking Omeprazole 40 MG Capsule Delayed Release 1 capsule 30 minutes before morning meal Orally Once a day Taking Sertraline HCl 50 MG Tablet 1 tablet Orally Once a day Taking VESIcare(Solifenacin Succinate) 10 MG Tablet 1 tablet Orally Once a day Taking Vitamin D3 125 MCG (5000 UT) Capsule 1 capsule Orally Once a day Taking Wellbutrin XL(buPROPion HCl ER (XL)) 300 MG Tablet Extended Release 24 Hour 1 tablet in the morning Orally Once a day Taking ZyrTEC(Cetirizine HCl) 10 MG Tablet Chewable 1 tablet Orally Once a day Medication List reviewed and reconciled with the patient * Allergies: s hell fish: shortness of breathno[Allergies Verified] Objective: * Vitals: W t:192lbs, Ht: 60 in, Temp:97.1F, HR:73/min, BMI:37.49Index, Pain scale:21-10, Oxygen sat %:98%, Ht-cm: 152.4 cm, Wt-k.09 kg. * Examination: P odiatry Examination: SKIN: s kin intact, n o sign of infection. MUSCULOSKELETAL: T enderness to palpation to the proximal plantar aspect of the heel. Ankle joint dorsiflexion is to neutral but not past. Achilles tendon is intact and mildly tender with direct palpation as well. Hindfoot and ankle are in a rectus position and no range of motion from the subtalar joint. Attempted range of motion of the subtalar joint does not elicit pain. NEUROLOGICAL: l ight touch sensation intact, n egative tinel's sign. VASCULAR: P edal pulses palpable, C apillaryrefill is brisk to toe, D igitalhair intact. C T scan that was obtained a few weeks ago was compared to that obtained in January. I agree with the radiologist interpretation of progression in bone healing across the subtalar fusion site. Hardware remains stable. Assessment: * Assessment: 1. P seudarthrosis after fusion or arthrodesis - M96.0 (Primary) 2 . P ost-traumatic osteoarthritis, right ankle and foot - M19.171 3 . O ther specified disorders of bone density and structure, right ankle and foot - M85.871 S pecify :Osteopenia 4 . D isplaced intraarticular fracture of right calcaneus, sequela - S92.061S? Plan: * Treatment: 2. P ost-traumatic osteoarthritis, right ankle and foot Referral To:Physical Therapist Reason:S/P subtalar joint fusion, delayed union 3. O thers Referral To:Physical Therapist Reason:S/P subtalar joint fusion, delayed union * Procedure Codes: * * Sign off status: Completed Visit Status: C HK (Check Out) true * Provider: Mary Correa DPM, MS Date: 07/31/2023 Generated for Ross castro/Ector/Ednaitting on: 0 01/09/2025 08:52 AM EDT History and Physical Notes * HPI (History of Present Illness) Category Sub-Category Detail Notes Category Not es General CT review right ankle. S/P right sutalar joint fusion , ankle arthroscopy, lateral displacement calcaneal osteotomy, peroneal tendon transfer, modified brostrom gandhi lateral ankle stabilization DOS 05/14/23. Continues to wear cam boot most of the time. She relates that pain is similar in nature but seemingly less intense. The last 6 weeks have been the best they have been in a very long time. She has been using the bone stimulator for approximately 8 weeks. Her point of maximal tenderness is on her plantar proximal heel as well as having pain over her Achilles when out of the boot Examination Category Sub-Category Detail Notes Category Not es Podiatry Examination SKIN: skin intact, no sign of infection CT sc an that was obtained a few weeks ago was compared to that obtained in January. I agree with the radiologist interpretation of progression in bone healing across the subtalar fusion site. Hardware remains stable. MUSCULOSKELETAL: Tenderness to palpat ion to the proximal plantar aspect of the heel. Ankle joint dorsiflexion is to neutral but not past. Achilles tendon is intact and mildly tender with direct palpation as well. Hindfoot and ankle are in a rectus position and no range of motion from the subtalar joint. Attempted range of motion of the subtalar joint does not elicit pain NEUROLOGICAL: light touch sensatio n intact, negative tinel's sign VASCULAR: Pedal pulses palpable, Capillary refill is brisk to toe, Digital hair intact Consultation Request Notes Referral Date Referring Provider Referred Provider Not es 05/30/2024 Basil Correa , S/P subtal ar joint fusion, delayed union
--- OUTSIDE RECORDS SUMMARY | 2025-01-07 05:00 | XMS_ITS ---
Author Organization [facility] in [place] Address [address] [place] [address] Care Team Providers Care Superintendent [employer] Name Role Phone Micah Diaz II, DO Primary Care Provider Unav ailaBsil Morin [phone] REASON FOR VISIT 6 month f/u Encounters Encounter Location Date Provider Diagnosis [facility] (PODIATRY) [address] [place] [address] [place] [address] 01/07/2025 Basil Correa Plan Of Treatment No Information Progress Notes * JESSICAAdolfo DamasoGregoryB:1970 (54 yo F)Acc No.[id number]:01/07/2025 UNLOCKED PROGRESS NOTE Follow Up Patient: Rasheeda BAUGH Provider: Mary Correa DPM, MS :1970 A ge:54 Y S ex:Female Date:01/07/2025 Address:[address] [place], [place] [id number] Pcp:Micah Diaz II, DO Subjective: * Chief Complaints: * 1 . 6 month f/u. * Medical History: Objective: * Vitals: Assessment: Plan: * Treatment: * * Electronic signature of Kirk Correa DPM on 01/09/2025 at 08:53 AM EDT Sign off status: Pending Visit Status: O FF CANC (OFFICE CANCEL) * Provider: Mary Correa DPM MS Date: 0 01/07/2025 Generated for Printi ng/Faxing/eTransmitting on: 0 01/09/2025 08:53 AM EDT
--- OUTSIDE RECORDS SUMMARY | 2025-01-09 08:53 | XMS_ITS | Patient Health Record ---
Author Organization [facility] in [place] Address [address] [place] [address] Care Team Providers Care Tube Puller Name Role Phone Micah Diaz II, DO Primary Care Provider Unav ailable Cyndi Correa [facility] [phone] Allergies Allergen (clinical drug ingredient) Drug/Non Drug Allergy documented on EMR Reaction Allergy Type Onset Date Status Shellfish (FN) shell fish (uncoded) shortness of breath Allergy Active Results Component Value Reference Range Notes XR ankle RT min 3V (Not yet reviewed by provider) Interpretation: Performing Lab: Notes/Report: Source Facility: [place] [id number] XRay Report Signed Patient: RASHEEDA HANNA MR#: [id number] : 1970 Acct:[id number] Age/Sex: 53 / F ADM Date: 02/05/24 Loc: EC Attending Dr: Cyndi Correa D.P.M. Ordering Physician: Cyndi Correa D.P.M. Date of Service: 02/05/24 Procedure(s): XR ankle RT min 3V Accession Number(s): [id number] cc: RIKY DENT ; Cyndi Correa D.P.M. [place] [id number] Patient Name: RASHEEDA HANNA MRN: [id number] date: 1970 Sex: F Assigned Patient Location: EC Current Patient Location: EC Accession/Order Number: [id number] Exam Date: 02/05/2024 10:55 Report Date: 02/05/2024 14:14 At the request of: CYNDI CORREA Procedure: XR ankle RT min 3V PROCEDURE: XR ankle RT min 3V, XR foot RT min 3V COMPARISON: 05/14/2023, 11/06/2023 HISTORY: RIGHT ANKLE PAIN FINDINGS: BONES:Stable subtalar fusion with incomplete bony bridging. Single surgical staple dorsal base of the first metatarsal. No acute fracture, dislocation or mechanical failure.. Lucency in the distal tibia from bone graft harvesting SOFT TISSUES:Negative. No visible soft tissue swelling. EFFUSION:None visible. OTHER: Negative. XR/XR ankle RT min 3V IMPRESSION: Stable postsurgical changes Electronically authenticated by: MARKO BOWDEN Date: 02/05/2024 14:14 Dictated By: Marko Bowden M.D. Signed By: 02/05/247 DD/ 13 TD/TT: Food Service Technician: [place] [address] XRay Report Signed Patient: JOHANNA HANAN MR#: [id number] : 1970 Acct:[id number] Age/Sex: 53 / F ADM Date: 02/05/24 Loc: EC Attending Dr: Cyndi Correa D.P.M. Ordering Physician: Cyndi Correa D.P.M. Date of Service: 02/05/24 Procedure(s): XR ankle RT min 3V Accession Number(s): [id number] cc: RIKY DENT ; Cyndi Correa D.P.M. [place] [id number] Patient Name: RASHEEDA HANNA MRN: [id number] date: 1970 Sex: F Assigned Patient Location: Current Patient Location: Accession/Order Numb er: [id number] Exam Date: 02/05/2024 10:55 Report Date: 02/05/2024 14:14 At the request of: CYNDI CORREA Procedure: XR ankle RT min 3V PROCEDURE: XR ankle RT min 3V, XR foot RT min 3V COMPARISON: 05/14/20 23, 11/06/2023 HISTORY: RIGHT ANKLE PAIN FINDINGS: BONES:Stable subtala r fusion with incomplete bony bridging. Single surgical staple dorsal base o f the first metatarsal. No acute fracture, dislocation or mechanical failure.. Lucency in the distal tibia from bone graft harvesting SOFT TISSUES:Negativ e. No visible soft tissue swelling. EFFUSION:None visible. OTHER: Negative. X R/XR ankle RT min 3V IMPRESSION: Stable postsurgical changes Electronically authe nticated by: MARKO BOWDEN Date: 02/05/2024 14:14 Dictated By: Marko Bowden M.D. Signed By: 02/05/241416 DD/ 13 TD/TT: Food Service Technician: XR Foot RT (3 views) * Reviewed date:06/16/2024 02:12:20 PM Interpretation: Performing Lab: Notes/Report: XR Foot RT (3 views) * Reviewed date:06/16/2024 02:38:20 PM Interpretation: Performing Lab: Notes/Report: XR foot RT min 3V (Not yet r eviewed by provider) Interpretation: Performing Lab: Notes/Report: Source Facility: [place] [address] XRay Report Signed Patient: RASHEEDA HANNA MR#: [id number] : 1970 Acct:[id number] Age/Sex: 53 / F ADM Date: 07/18/24 Loc: EC Attending Dr: Cyndi Correa D.P.M. Ordering Physician: Cyndi Correa D.P.M. Date of Service: 07/18/24 Procedure(s): XR foot RT min 3V Accession Number(s): [id number] cc: RKIY DENT; Cyndi Correa D.P.M. [place] [address] Patient Name: RASHEEDA HANNA MRN: [id number] date: 1970 Sex: F Assigned Patient Location: EC Current Patient Location: Accession/Order Number: [id number] Exam Date: 07/18/2024 09:24 Report Date: 07/21/2024 11:18 At the request of: CYNDI CORREA Procedure: XR foot RT min 3V PROCEDURE: XR foot RT min 3V HISTORY: RIGHT FOOT PAIN COMPARISON: None. FINDINGS: BONES:Mechanical fusion of the talonavicular joint via 3 fusion screws. Bone staple within proximal first metatarsal. No hardware fracture or evidence of loosening. No bone fracture dislocation. Minimal degenerative joint disease of the midfoot and forefoot. SOFT TISSUES:No visible soft tissue swelling. EFFUSION:None visible. OTHER: Negative. XR/XR foot RT min 3V IMPRESSION: 1. Stable surgical changes without evidence of hardware failure or change in alignment. 2. No acute findings to account for patient's symptoms. Electronically authenticated by: MITESH ONTIVEROS Date: 07/21/2024 11:18 Dictated By: Mitesh Ontiveros M.D. Signed By: 07/21/24 1120 DD/ 1118 TD/TT: Food Service Technician: [place] [address] XRay Report Signed Patient: JOHANNA HANNA MR#: [id number] : 1970 Acct:[id number] Age/Sex: 53 / F ADM Date: 07/18/24 Loc: EC Attending Dr: Cyndi Correa D.P.M. Ordering Physician: Cyndi Correa D.P.M. Date of Service: 07/18/24 Procedure(s): XR foot RT min 3V Accession Number(s): [id number] cc: RIKY DENT; Cyndi Holloway D.P.M. [place] [address] Patient Name: RASHEEDA HANNA MRN: [id number] date: 1970 Sex: F Assigned Patient Location: Current Patient Location: Accession/Order Numb er: [id number] Exam Date: 07/18/2024 09:24 Report Date: 07/21/2024 11:18 At the request of: CYNDI CORREA Procedure: XR foot RT min 3V PROCEDURE: XR foot RT min 3V HISTORY: RIGHT FOOT PAIN COMPARISON: None. FINDINGS: BONES:Mechanical fus ion of the talonavicular joint via 3 fusion screws. Bone staple within proxim al first metatarsal. No hardware fracture or evidence of loosening. No bone f racture dislocation. Minimal degenerative joint disease of the midfoot and forefoot. SOFT TISSUES:No visi ble soft tissue swelling. EFFUSION:None visible. OTHER: Negative. X R/XR foot RT min 3V IMPRESSION: 1. Stable surgical c hanges without evidence of hardware failure or change in alignment. 2. No acute findings to account for patient's symptoms. Electronically authe nticated by: MITESH ONTIVEROS Date: 07/21/2024 11:18 Dictated By: Mitesh Ontiveros M.D. Signed By: 07/21/24 1120 DD/ 1118 TD/TT: Food Service Technician: XR foot RT min 3V (Not yet r eviewed by provider) Interpretation: Performing Lab: Notes/Report: Source Facility: [place] [address] XRay Report Signed Patient: RASHEEDA HANNA MR#: [id number] : 1970 Acct:[id number] Age/Sex: 53 / F ADM Date: 04/23/24 Loc: RAD Attending Dr: Cyndi Correa D.P.M. Ordering Physician: Cyndi Correa D.P.M. Date of Service: 04/23/24 Procedure(s): XR foot RT min 3V Accession Number(s): [id number] cc: RIKY DENT; Cyndi Correa D.P.M. [facility] [place] [address] Patient Name: RASHEEDA HANNA MRN: [id number] date: 1970 Sex: F Assigned Patient Location: [facility] Current Patient Location: Accession/Order Number: [id number] Exam Date: 04/23/2024 08:16 Report Date: 04/28/2024 07:52 At the request of: CYNDI CORREA Procedure: XR foot RT min 3V PROCEDURE: XR foot RT min 3V COMPARISON: 03/12/2024 HISTORY: RIGHT FOOT PAIN FINDINGS: BONES:Stable subtalar fusion with 3 screws. No significant interval bone formation. Single surgical staple base of the first metatarsal SOFT TISSUES:Negative. No visible soft tissue swelling. EFFUSION:None visible. OTHER: Negative. XR/XR foot RT min 3V IMPRESSION: Stable postsurgical changes with no significant bone formation Electronically authenticated by: MARKO BOWDEN Date: 04/28/2024 07:52 Dictated By: Marko Bowden M.D. Signed By: 04/28/24753 DD/ 1 TD/TT: Food Service Technician: [place] [address] XRay Report Signed Patient: JOHANNA HANNA MR#: [id number] : 1970 Acct:[id number] Age/Sex: 53 / F ADM Date: 04/23/24 Loc: RAD Attending Dr: Cyndi Correa D.P.M. Ordering Physician: Cyndi Correa D.P.M. Date of Service: 04/23/24 Procedure(s): XR foot RT min 3V Accession Number(s): [id number] cc: RIKY DENT; Cyndi Holloway D.P.M. [place] [id number] Patient Name: RASHEEDA HANNA MRN: [id number] date: 1970 Sex: F Assigned Patient Location: [facility] Current Patient Location: Accession/Order Numb er: [id number] Exam Date: 08:16 Report Date: 04/28/2024 07:52 At the request of: CYNDI CORREA Procedure: XR foot RT min 3V PROCEDURE: XR foot RT min 3V COMPARISON: 03/12/2024 HISTORY: RIGHT FOOT PAIN FINDINGS: BONES:Stable subtala r fusion with 3 screws. No significant interval bone formation. Single rivera rgical staple base of the first metatarsal SOFT TISSUES:Negativ e. No visible soft tissue swelling. EFFUSION:None visible. OTHER: Negative. X R/XR foot RT min 3V IMPRESSION: Stable postsurgical changes with no significant bone formation Electronically authe nticated by: MARKO BOWDEN Date: 04/28/2024 07:52 Dictated By: Marko Bowden M.D. Signed By: 04/28/244 DD/ 1 TD/TT: Food Service Technician: Reason For Referral Reason DEXA scan Diagnosis 1 Post-traumatic osteo arthritis, right ankle and foot (M19.171) Diagnosis 2 Other instability, r ight ankle (M25.371) Referral Organization [facility] Referring Provider First Name Cyndi Referring Provider Last Name [facility] Referring Provider Speciality Podiatry Referred Provider Specialty Other Medica l Care Referral Priority Routine Reason S/P subtalar joint f usion, delayed union Diagnosis 1 Varus deformity, not elsewhere classified, 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) Diagnosis 2 Post-traumatic osteo arthritis, right ankle and foot (M19.171) Referral Organization [facility] Referring Provider First Name Cyndi Referring Provider Last Name [facility] Referring Provider [facility] Referred Provider Specialty Physical The rapist Referral Priority Routine Medications Medication SIG (Take, Route, Frequency, Duration) Notes Start Date End Date Status dexAMETHasone Sodium Phosphate 4 MG/ML 1.5ml - 2.5ml topically up to 3 times weekly with physical therapy for 30 days 03/12/2024 Not-Taking ZyrTEC 10 MG 1 tablet Orally Once a day Active Centrum Silver 50+Women - as directed Orally Active Wellbutrin XL 300 MG 1 tablet in the morning Orally Once a day 05/30/2024 Active Iron 325 (65 Fe) MG 1 tablet Orally Thre e times a Week Active Flecainide Acetate 100 MG 0.5 tablet Ora lly every 12 hrs Active Lysine 500 MG as directed Orally Active Metoprolol Succinate 25 MG 1 capsule Ora lly Once a day Active Magnesium 400 MG as directed Orally Active Sertraline HCl 50 MG 1 tablet Orally Onc e a day Active Omeprazole 40 MG 1 capsule 30 minutes before morning meal Orally Once a day Active B Complex - as directed Orally Active Vitamin D3 125 MCG (5000 UT) 1 capsule Orally Once a day Active Aspirin 81 MG 1 tablet Orally Once a day Active VESIcare 10 MG 1 tablet Orally Once a day Active Social History Tobacco Use: Social History Observation Description Date Details (start date - stop date) Never Smoker NA - NA Tobacco Use/Smoking Question Answer Notes Patient is a nonsmoker Problems Problem Type SNOMED Code ICD Code Onset Dates Problem Status W/U Status Risk Notes Problem 2244517276831694 Post-traumatic osteoarthritis, right ankle and foot (M19.171) Active confirmed Problem 695670123 Varus deformity, not elsewhere classified, 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) Active confirmed Problem 7838224713525062 Other instability, right ankle (M25.371) Active confirmed Problem 189353879959657 Peroneal tendinitis, right leg (M76.71) Active confirmed Problem 136805299 Displaced intraarticular fracture of right calcaneus, sequela (S92.061S) Active confirmed Problem Pain in right foot (188363983184590) Right foot pain (M79.671) Active confirmed Problem Cardiac arrhythmia (454194633) Cardiac arrhythmia (I49.9) Active confirmed Problem Chronic depression (486519883) Chronic depression (F32.9) Active confirmed Problem SI - Stress incontinence (29017917) Stress incontinence (N39.3) Active confirmed Problem Localized, primary osteoarthritis of the ankle and/or foot (654872364) Osteoarthritis of right ankle and foot (M19.071) Active confirmed Problem Localized, primary osteoarthritis of the ankle and/or foot (805208988) Arthritis of ankle, right (M19.071) Active confirmed Problem Localized, secondary osteoarthritis of the ankle and/or foot (876363559) Post-traumatic arthritis of right ankle (M19.171) Active confirmed Vital Signs Heart Rate 80 /min 07/18/2024 Temperature 97.9 degrees Fahrenheit 07/18/2024 Oximetry 95 % 07/18/2024 Height 60 in 07/18/2024 Weight 192 lbs 05/30/2024 BMI 37.49 kg/m2 05/30/2024 Encounters Encounter Location Date Provider Diagnosis [facility] [address] [place] [place] [address] 03/19/2024 Cyndi Correa [facility] [address] [place] [address] 03/12/2024 Cyndi Correa Pseudarthrosis after fusion or arthrodesis M96.0 ; Post-traumatic osteoarthritis, right ankle and foot M19.171 ; Anterior tibial syndrome, 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 and Right foot pain M79.671 [facility] ([facility]OD[facility]) [address] [place] [address] [place] [address] 05/30/2024 Cyndi Correa Pseudarthrosis after fusion or arthrodesis M96.0 ; Post-traumatic osteoarthritis, right ankle and foot M19.171 ; Other specified disorders of bone density and structure, right ankle and foot M85.871 and Displaced intraarticular fracture of right calcaneus, sequela S92.061S [facility] ([facility]) [address] [place] [address] [place] [address] 07/18/2024 Cyndi Correa Post-traumatic osteoarthritis, right ankle and foot M19.171 ; Varus deformity, not elsewhere classified, right ankle M21.171 and Right foot pain M79.671 [facility] ([facility] [address] [place] [address] [place] [address] 02/05/2024 Cyndi Estesmary Displaced intraarticular fracture of right calcaneus, sequela S92.061S ; Post-traumatic osteoarthritis, right ankle and foot M19.171 ; Varus deformity, not elsewhere classified, right ankle M21.171 ; Peroneal tendinitis, right leg M76.71 ; Pain in right ankle and joints of right foot M25.571 and Other specified joint disorders, right ankle and foot M25.871 [facility] ([facility] [address] [place] [address] [place] [address] 02/19/2024 Cyndi Correa Pseudarthrosis after fusion or arthrodesis M96.0 ; Post-traumatic osteoarthritis, right ankle and foot M19.171 and Varus deformity, not elsewhere classified, right ankle M21.171 [facility] ([facility]) [address] [place] [address] [place] [address] 04/23/2024 Cyndi Correa Post-traumatic arthritis of right ankle M19.171 ; Pseudarthrosis after fusion or arthrodesis M96.0 ; Right foot pain M79.671 and Other specified disorders of bone density and structure, right ankle and foot M85.871 Assessments Encounter Date Diagnosis (ICD Code) Assessment Notes Treatment Notes Treatment Clinical Notes Section Notes 02/05/2024 Displaced intraarticular fracture of right calcaneus, sequela (ICD-10 - S92.061S) Patient presents 9 months status post cavus foot reconstruction with subtalar joint fusion and first metatarsal osteotomy, lateral ankle stabilization and peroneal tendon repair. At last visit she was doing better however throughout the summer her pain has only worsened and she is unable to stand or walk comfortably for 30 minutes or more. Her who is present today relates that she consistently walks with a limp and it has affected their activity to a great deal. I am concerned for nonunion given the degree of pain she is having so I recommend a CT scan which was ordered today. She also appears to be having ankle impingement which may respond to corticosteroid injection versus ankle arthroscopy but would like CT scan to be evaluated first. Follow-up after the CT scan is obtained no new x-rays are needed 02/05/2024 Post-traumatic osteoarthritis, right ankle and foot (ICD-10 - M19.171) 04/23/2024 Post-traumatic arthritis of right ankle (ICD-10 - M19.171) Patient presents for follow-up. She is still in cam boot and still having daily pain which is limiting activities of daily living and recreation. Her DEXA scan results with were reviewed with her which shows osteopenia and she is currently on vitamin D and calcium. My concern is that this is in fact contributing to the slow healing of her fusion therefore systemic management may be indicated but will defer to JET AIRCRA[employer] SERVICER/primary care.I recommended a CT scan to be obtained on or after 05/14 to better visualize degree of bone healing which is difficult to assess on plain x-ray.Given that her alignment is unchanged and there is no evidence of loosening of the hardware it appears that her fusion site may at least be stable and I would like to get her out of the boot as soon as possible. 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 She is to start the bone stimulator tomorrow and have a DEXA scan later this week. She will follow-up in 6 weeks with repeat weightbearing x-rays of the foot including calcaneal axial 03/12/2024 Post-traumatic osteoarthritis, right ankle and foot (ICD-10 - M19.171) 05/30/2024 Pseudarthrosis after fusion or arthrodesis (ICD-10 [...] right ankle and foot (ICD-10 - M19.171) 02/19/2024 Pseudarthrosis after fusion or arthrodesis (ICD-10 - M96.0) Patient is status post subtalar joint fusion and lateral ankle stabilization roughly 9 months ago performed in April 2023. She has had increased pain over the summer and CT scan was obtained and reviewed with her and her today. There is evidence of nonunion with less than 1 cm of gap. I recommended noninvasive bone stimulator which was ordered today. She is to be in either the cam boot or ASO ankle brace when weightbearing. She will follow-up in 2 months with weightbearing 2 views of the calcaneus She is taking vitamin D and has never had a DEXA scan therefore that was ordered today. 02/19/2024 Post-traumatic osteoarthritis, right ankle and foot (ICD-10 - M19.171) 07/18/2024 Post-traumatic osteoarthritis, right ankle and foot (ICD-10 - M19.171) Patient has seemingly turned a corner and now is doing very well. She does not have any limitations and relates only to be mild temporary pain with for steps in the morning. Recommended continue vitamin D and calcium as well as bone stimulator as prescribed. 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 If she does not see any improvement over the next 1 to 2 weeks I would like her to schedule an appointment with physical therapy specifically for modalities such as ultrasound, e-stim and iontophoresis. No frontal plane range of motion is to be performed during physical therapy 04/23/2024 Right foot pain (ICD-10 - M79.671) 02/05/2024 Varus deformity, not elsewhere classified, right ankle (ICD-10 - M21.171) 02/05/2024 Peroneal tendinitis, right leg (ICD-10 - M76.71) 04/23/2024 Other specified disorders of bone density and structure, right ankle and foot (ICD-10 - M85.871) 03/12/2024 Right foot pain (ICD-10 - M79.671) 05/30/2024 Displaced intraarticular fracture of right calcaneus, sequela (ICD-10 - S92.061S) 02/05/2024 Pain in right ankle and joints of right foot (ICD-10 - M25.571) 02/05/2024 Other specified joint disorders, right ankle and foot (ICD-10 - M25.871) Plan Of Treatment Pending Test Test Name Order Date XR Ankle RT (3 views) * (161) 02/05/2024 XR Foot RT (3 views) * 07/18/2024 XR Foot RT (3 views) * 02/05/2024 DEXA Axial Skeleton (hips, pelvis, spine )* 02/19/2024 CT Ankle RT w/o contrast * (Optional 3D Rendering) 04/23/2024 CT Foot RT w/o contrast * (Optional 3D R endering) 02/05/2024 XR ankle RT min 3V 02/05/2024 XR foot RT min 3V 04/28/2024 XR foot RT min 3V 07/21/2024 XR foot RT min 3V 03/21/2023 Insurance Providers Payer Name Payer Address Payer Phone Subscriber Number Group Number Insured Name Patient Relationship to Insured Coverage Start Date Coverage End Date [employer] OUT OF STATE [address] [place] [phone] [id number] Rasheeda Hanna Self - patient is the insured 2 3 [employer] [address] [place], [place] [id number] Rasheeda Hanna Self - patient is the insured 4 [employer] OUT OF STATE [address] [place] [phone] [id number] Rasheeda Hanna Self - patient is the insured Medical (General) History Medical History History ICD Code Cardiac arrhythmia, unspecified I49.9 Right Foot Pain Surgical History Surgery Date(Month/Year) C-sections 1990,1992,1995 rt subtalar joint fusion, an kle arthroscopy, lateral displacement calcaneal osteotomy, peroneal tendon transfer, modified Brostrom Gandhi lateral ankle stabilization DOS 05/14/23 Dr Correa 05/14/2023 Gallbladder 2016 Bilateral Carpal Tunnel 2020 Hospitalization History Reason Date(Month/Year) See above
--- OUTSIDE RECORDS SUMMARY | 2025-01-09 08:53 | XMS_ITS | Encounter Summary ---
Author Organization [facility] Address [address] [place] [address] Phone Care Team Providers Care Keno Writer Name Role Phone Salima Gilman MD Unavailable Kayla Hyatt DO Primary Care Provider Kayla Hyatt DO Primary Care Provider Federico Villatoro MD Unavailable [phone] Micah Diaz DO Primary Care Provider + Encounter Details Date Type Department Care Team (Late st Contact Info) Description 08/02/2021 Orders Only [facility] [address] [place] [address] Conversion, Onbase Social History Tobacco Use Types Packs/Day Years Used Date Smoking Tobacco: Never Assessed Comments Unknown Sex and Gender Information Value Date Recorded Sex Assigned at Not on file Legal Sex Female 9:40 AM EST Gender Identity Not on file Sexual Orientation Not on file Travel History Travel Start Travel End Lance 12/11/2024 12/21/2024 documented as of this encounter Plan of Treatment Upcoming Encounters Date Type Department Care Team (Late st Contact Info) Description 04/06/2025 9:15 AM EDT Office Visit [facility] [address] [phone] Federico Villatoro MD [address] [address] Scheduled Orders Name Type Priority Associated Diagnoses Orde r Schedule SLEEP STUDY ORDER - ONBASE SCAN Sleep Center Ordered: 022 documented as of this encounter Visit Diagnoses Not on filedocumented in this encounter Care Teams Keno Writer Relationship Specialty Start Date End Date Salima Gilman MD [address] [place] [address] [address] [place] [address] PCP - [facility] PCP 06/18/21 03/17/22 Kayla Hyatt DO [address] [place] [id number] PCP - General 08/18/22 04/02/24 Kayla Hyatt DO [address] [place] [address] PCP - General 09/03/20 08/17/22 Micah Diaz DO [address] [place] [address] [place] [address] PCP - General Family Medicine 04/03/24 Federico Villatoro MD [address] [place] [id number] [facility] 07/24/23 documented as of this encounter
--- OUTSIDE RECORDS SUMMARY | 2025-01-09 08:53 | XMS_ITS | Clinical Summary ---
Author Organization [facility] Address [address] [place] [address] Care Team Providers Care Videographer Name Role Phone Unallocated, Noms Provider MD Primary Care Provi kamar Allergies Active Allergy Reactions Criticality Noted Date Comments Shellfish-Derived Products Angioedema,Hives,Itch ing 05/14/2019 Other Reaction(s): Unknown Medications solifenacin (VESIcare) 10 MG tablet Take 10 mg by mouth Daily Active sertraline (Zoloft) 50 MG tablet Take 50 mg by mouth Daily Active omeprazole (PriLOSEC) [address] capsule Take 40 mg by mouth 025 Active metoprolol succinate XL (Toprol-XL) 25 MG 24 hr tablet Take 25 mg by mouth in the morning. 025 2025 Active Magnesium Oxide -Mg Supplement 400 MG capsule Take 400 mg by mouth in the morning. Active Flonase Allergy Relief 50 MCG/ACT nasal spray Administer into affected nostril(s) 025 Active flecainide (Tambocor) 100 MG tablet Take 100 mg by mouth every 12 (twelve) hours 023 2025 Active Ferrous Sulfate (iron) 325 (65 Fe) MG tablet 1 tablet Orally Three times a Week Active EPINEPHrine (Epipen) 0.3 MG/0.3ML injection syringe INJECT 1 DOSE INTRAMUSCULARLY DIRECTED NEEDED FOR ANAPHYLAXIS Active cholecalcifer ol (Vitamin D-3) 125 MCG (5000 UT) capsule 1 capsule 1 (one) time each day at the same time Active cetirizine (ZyrTEC) 10 MG chewable tablet 1 (one) time each day at the same time Active buPROPion XL (Wellbutrin XL) 300 MG 24 hr tablet Take 300 mg by mouth Daily Active aspirin 81 MG EC tablet Take 81 mg by mouth in the morning. 023 2025 Active Multiple Vitamins-Mine rals (CENTRUM SILVER 50+WOMEN PO) 2024 Discontinued L-lysine 500 MG tablet as directed Orally 2024 Discontinued B Complex-Folic Acid (vitamin-B complex) split tablet 2024 Discontinued Active Problems Problem Noted Date Diagnosed Date Discogenic lumbar pain 07/11/2024 Varus deformity, not elsewhere classified, right ankle 06/15/2024 Post-traumatic osteoarthritis, right ankle and f oot 06/15/2024 Chronic pain of right ankle 09/13/2023 Ankle joint stiffness, right 09/13/2023 S/P ankle fusion 09/13/2023 Encounters Date Type Department Care Team Description 12/31/2024 Results Follow-Up [facility] [address] [phone] Melissa Newman NP 12/25/2024 9:00 AM EDT Office Visit [facility] [address] [phone] Melissa Newman NP Encounter for gynecological examination without abnormal finding (Primary Dx); Other screening mammogram 12/25/2024 Bamboo flowsheet [facility] [address] [phone] Melissa Newman NP 12/25/2024 Travel from Last 3 Months Family History Medical History Relation Name Comments Aneurysm Brother Hypoplasty right ventrical Daughter Lung cancer Mother Simran Srinivasan Relation Name Status Comments Brother Daughter Mother Simran Srinivasan Social History Tobacco Use Types Packs/Day Years Used Date Smoking Tobacco: Never Smokeless Tobacco: Never Tobacco Cessation:Counseling Given: Not Answered Alcohol Use Standard Drinks/Week Comments Never 0 (1 standard drink = 0.6 oz pur e alcohol) AUDIT-C Answer Date Recorded Q1: How often do you have a drink containing alcohol? Never 12/25/2024 Q2: How many drinks containi ng alcohol do you have on a typical day when you are drinking? Patient does not drink Q3: How often do you have si x or more drinks on one occasion? Never 12/25/2024 PHQ-2 Answer Date Recorded Patient Health Questionnaire-2 Score 0 12/25/2024 Comments Unknown Sex and Gender Information Value Date Recorded Sex Assigned at Not on file Legal Sex Female 11:46 PM EDT Gender Identity Not on file Sexual Orientation Not on file Last Filed Vital Signs Vital Sign Reading Time Taken Comments Blood Pressure 126/84 12/25/2024 9:02 AM EDT Pulse - - Temperature - - Respiratory Rate - - Oxygen Saturation - - Inhaled Oxygen Concentration - - Weight 87.1 kg (192 lb) 12/25/2024 9:02 AM EDT Height 152.4 cm (5') 12/25/2024 9:02 AM EDT Body Mass Index 37.5 12/25/2024 9:02 AM EDT Plan of Treatment Upcoming Encounters Date Type Department Care Team (Late st Contact Info) Description 12/31/2025 8:00 AM EDT Office Visit [facility] [address] [phone] Melissa Newman [employer] [address] [place] [address] Health Maintenance Due Date Last Done Comments CT Colonography 1968 Colonoscopy 1968 FIT 1968 FOBT 1968 Sigmoidoscopy 1968 Pap Smear 1989 Mammogram 12/28/2022 12/28/2021, 12/16, 06/09/2020, Additional history exists Influenza Vaccine (#1) 2025 Colorectal Cancer Screening 01/30/2027 FIT-DNA 01/30/2027 01/31/2024 Cervical Cancer Screening 12/25/2029 HPV/Cotest 12/25/2029 12/25/2024 Procedures Procedure Name Priority Date/Time Associated Diagnosis Comments IGP, APT HPV,RFX 16/18,45 Routine 12/25/2024 12:00 AM EDT Encounter for gynecological examination without abnormal finding from Last 3 Months Results * IGP, APT HPV,RFX 16/18,45 (12/25/2024 12:00 AM EDT) Diagnosis: Comment [facility] Comment:UNSATISFACTORY FOR E VALUATION. Recommendation: Comment [facility] Comment:Suggest follow up as clinically appropriate. Specimen Adequacy: Comment [facility] Comment: Specimen processed and examined but unsatisfactory for evaluation of epithelial abnormality because of insufficient cellularity. Clinician Provided ICD10: Comment [facility] Comment:Z01.419 Performed By: Comment [facility] Comment:Drew Ryan tologist (ASCP) QC Reviewed By: Comment [facility] Comment:Carly Vasquez, Cyto logist Cyto Comments . [facility] Note: Comment [facility] Comment: The Pap smear is a screening test designed to aid in the detection of premalignant and malignant conditions of the uterine cervix. It is not a diagnostic procedure and should not be used as the sole means of detecting cervical cancer. Both false-positive and false-negative reports do occur. Test Methodology: CANCELED [facility] Comment: The [employer]) Base Engineer was unable to read this specimen. Therefore a manual review was performed. Result canceled by the ancillary. HPV Aptima Negative Negative [facility] Comment: This nucleic acid amplification test detects fourteen high-risk HPV types (16,18,31,33,35,39,45,51,52,56,58,59,66,68) without differentiation. 12/25/2024 12/26/2024 Narrative [facility] - 12/31/2024 8:35 AM EDT Performed at: - [facility] [id number] Certified Nurse: Delia Montiel MD, Phone: [phone] Performed at: - [facility] [id number] Certified Nurse: Delia Montiel MD, Phone: [phone] Specimen Comment: No. of containers..01 ThinPrep Vial Melissa F Newman [employer] LAB BLOOD ORDERABLES Edit ed Result - Final [facility] from Last 3 Months Insurance [employer] Care Teams Videographer Relationship Specialty Start Date End Date Unallocated, Noms MD [place] [address] [place] [address] PCP - General Family Medicine 09/13/23
--- OUTSIDE RECORDS SUMMARY | 2025-01-09 08:53 | XMS_ITS | Clinical Summary ---
Author Organization [facility] Address [address] [place] [address] Phone Care Team Providers Care Associate Director Data & Analytics Name Role Phone Federico Villatoro MD Unavailable [phone] Micah Diaz DO Primary Care Provider + Allergies Active Allergy Reactions Criticality Noted Date Comments Shellfish Containing Products Angioedema,Hives 04/10/2023 Medications sertraline (Zoloft) 50 mg tabletIndications :Labile mood Take 1 tablet (50 mg) by mouth once daily. 90 tablet 3 Active EPINEPHrine 0.3 mg/0.3 mL injection syringe USE DIRECTED FOR ALLERGIC REACTION Active multivitamin tablet Take 1 tablet by mouth once daily. Active omeprazole (PriLOSEC) [address] capsule Take 1 capsule (40 mg) by mouth once daily. Active cetirizine (ZyrTEC) 10 mg capsule Take 1 capsule (10 mg) by mouth once daily at bedtime. Active ferrous sulfate 325 (65 Fe) MG EC tablet once daily with breakfast. Active magnesium oxide 400 mg magnesium capsule Take 1 capsule (400 mg) by mouth once daily. Active solifenacin (VESIcare) 10 mg tablet Take 1 tablet (10 mg) by mouth once daily. Swallow tablet whole; do not crush, chew, or split. Active VITAMIN B COMPLEX ORAL Take 1 tablet by mouth once daily. Active buPROPion XL (Wellbutrin XL) 300 mg 24 hr tablet Take 1 tablet (300 mg) by mouth once daily in the morning. 4 Active CALCIUM CARBONATE-VITAMIN D3 ORAL Take 1 tablet by mouth once daily. 4 Active aspirin 81 mg EC tabletIndications :High risk medication use Take 1 tablet (81 mg) by mouth once daily. 90 tablet 3 5 10/07/19 26 Active flecainide (Tambocor) 100 mg tabletIndications :High risk medication use,Palpitations, Premature ventricular contractions (PVCs) (VPCs) Take 1 tablet (100 mg) by mouth every 12 hours. 180 tablet 3 5 10/07/19 26 Active metoprolol succinate XL (Toprol-XL) 25 mg 24 hr tabletIndications :High risk medication use,Palpitations, Premature ventricular contractions (PVCs) (VPCs),Tachycardi a,Never smoked tobacco,BMI 36.0-36.9,adult Take 1 tablet (25 mg) by mouth once daily. 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 Shellfish allergy 04/13/2023 Sinus node dysfunction (Multi) 04/13/2023 Tachycardia 04/13/2023 Abnormal mammogram 04/10/2023 Acute bronchitis 04/10/2023 Atypical mole 04/10/2023 Breast lump on right side at 12 o'clock position 04/10/2023 Carpal tunnel syndrome on both sides 04/10/2023 Chronic cough 04/10/2023 Enlarged lymph node in neck 04/10/2023 Habitual snoring 04/10/2023 Labile mood 04/10/2023 Menopausal symptoms 04/10/2023 Obesity (BMI 35.0-39.9 without comorbidity) 03/19 Palpitations 04/10/2023 Pelvic mass in female 04/10/2023 Pelvic pain in female 04/10/2023 Personal history of COVID-19 04/10/2023 Post-op pain 04/10/2023 Premature ventricular contractions (PVCs) (VPCs) 04/10/2023 Rhinitis 04/10/2023 Sleep-disordered breathing 04/10/2023 Iron deficiency anemia 06/02/2015 Encounters Date Type Department Care Team Description 12/23/2024 10:00 AM EDT Office Visit [facility] [address] [address] Evie Hemphill, CLERICAL CAR CHECKER-SOFTWARE ENGINEER WEB SERVICES High risk medication use (Primary Dx); Palpitations; Bruising 12/23/2024 Travel 12/16/2024 Telephone [facility] [address] [facility] [address] [place] [id number] Michelle Jackson LPN 11/26/2024 Orders Only [facility] [address] [place] [address] Micah Diaz, Screening for colorectal cancer from Last 3 Months Immunizations Immunization Administration Dates Next Due Covid-19 Non-us Vaccine, Product Unknown 022 Family History Medical History Relation Name Comments Cancer Mother Lung cancer Mother Relation Name Status Comments Mother Social History Tobacco Use Types Packs/Day Years Used Date Smoking Tobacco: Never Smokeless Tobacco: Never Tobacco Cessation:Counseling Given: Not Answered Alcohol Use Standard Drinks/Week Comments Never 0 (1 standard drink = 0.6 oz pur e alcohol) Comments Unknown Sex and Gender Information Value Date Recorded Sex Assigned at Not on file Legal Sex Female 9:40 AM EST Gender Identity Not on file Sexual Orientation Not on file Travel History Travel Start Travel End [facility] [address] 12/11/2024 12/21/2024 Last Filed Vital Signs Vital Sign Reading Time Taken Comments Blood Pressure 124/78 12/23/2024 10:12 AM EDT Pulse 62 12/23/2024 9:53 AM EDT Temperature 36.1 C (97 F) 11/22/2021 3:34 PM EDT Respiratory Rate 16 07/12/2021 8:30 AM EST Oxygen Saturation 97% 11/22/2021 3:34 PM EDT Inhaled Oxygen Concentration - - Weight 87.4 kg (192 lb 9.6 oz) 12/23/2024 9:53 A M EDT Height 152.4 cm (5') 12/23/2024 9:53 AM EDT Body Mass Index 37.61 12/23/2024 9:53 AM EDT Plan of Treatment Upcoming Encounters Date Type Department Care Team (Late st Contact Info) Description 04/06/2025 9:15 AM EDT Office Visit [facility] [address] [facility] [address] [place] [phone] Federico Villatoro MD [address] [facility] [address] [place] [address] Health Maintenance Due Date Last Done Comments CT Colonography 1968 Colonoscopy 1968 FIT 1968 HIV Screening 1968 Sigmoidoscopy 1968 MMR Vaccines (1 of 1 - Standard series) 1969 Hepatitis C Screening 1986 Hepatitis B Vaccines (1 of 3 - 19+ 3-dose series) 10/03/1987 HPV/Cotest 1989 Yearly Adult Physical 08/22/2017 08/21/2016, 015 Pneumococcal Vaccine (1 of 1 - PCV) 2018 Zoster Vaccines (1 of 2) 2018 Cervical Cancer Screening 05/24/2022 Pap Smear 05/24/2022 05/24/2019, 03/02/1998 Mammogram 12/28/2022 12/28/2021, 05/19, 06/03/2019 COVID-19 Vaccine (2 - season) 2024 08/05/2021 Influenza Vaccine (#1) 2025 Diabetes Screening 08/25/2025 08/25/2022, 0 08/24/2022, 08/23/2022, Additional history exists Lipid Panel 05/17/2026 05/17/2021, 01/18, 05/24/2019 Colorectal Cancer Screening 01/30/2027 FIT-DNA (Cologuard) 01/30/2027 01/31/2024, 08/14/2019, 08/13/2019, Additional history exists DTaP/Tdap/Td Vaccines (2 - Td or Tdap) 10/08/2034 10/08/2024 Hepatitis A Vaccines Aged Out 10/08/2024 No long er eligible based on patient's age to complete this topic HIB Vaccines Aged Out No longer eligi ble based on patient's age to complete this topic HPV Vaccines Aged Out No longer eligi ble based on patient's age to complete this topic IPV Vaccines Aged Out No longer eligi ble based on patient's age to complete this topic Meningococcal Vaccine Aged Out No young charles eligible based on patient's age to complete this topic Rotavirus Vaccines Aged Out No longer eligible based on patient's age to complete this topic Procedures Procedure Name Priority Date/Time Associated Diagnosis Comments CBC Routine 12/23/2024 10:33 AM EDT High risk medication use Palpitations Bruising COMPREHENSIVE METABOLIC PANEL Routine 12/23/2024 10:33 AM EDT High risk medication use Palpitations Bruising BASIC METABOLIC PANEL Today 08/25/2022 4:54 AM EST DIGITAL DIAG MAMM Routine 12/28/2021 9:3 1 AM EDT Unspecified lump in the right breast, overlapping quadrants LIPID PANEL Routine 05/17/2021 8:38 AM EST LAB COLOGUARD COLON CANCER SCREEN 08/14/2019 CONVERTED GRANTS DIRECTOR CYTOLOGY Routine 9 12:00 AM EST from Last 3 Months or Most Recently Relevant to Health Maintenance Results * CBC (12/23/2024 10:33 AM EDT) WHITE BLOOD CELL COUNT 7.8 3.8 - 10.8 Thousand/u L [facility] RED BLOOD CELL COUNT 4.50 3.80 - 5.10 Million/uL [facility] HEMOGLOBIN 14.2 11.7 - 15.5 g/dL [facility] HEMATOCRIT 43.6 35.0 - 45.0 % [facility] MCV 96.9 80.0 - 100.0 fL [facility] MCH 31.6 27.0 - 33.0 pg [facility] MCHC 32.6 32.0 - 36.0 g/dL [facility] Comment: For adults, a slight decrease in the calculated MCHC value (in the range of 30 to 32 g/dL) is most likely not clinically significant; however, it should be interpreted with caution in correlation with other red cell parameters and the patient's clinical condition. RDW 12.7 11.0 - 15.0 % [facility] PLATELET COUNT 278 140 - 400 Thousand/u L [facility] MPV 11.2 7.5 - 12.5 fL [facility] Blood Venous blood specimen / Unknown 12/23/2024 10:33 AM EDT 12/23/2024 10:[address] [facility] - 12/23/2024 11:49 PM EDT FASTING:NO FASTING: NO us Evie Hemphill CLERICAL CAR CHECKER-SOFTWARE ENGINEER WEB SERVICES LAB BLOOD ORDERABLES Diana harrell Result [facility] [address] [facility], [address] [place] [phone] * Comprehensive Metabolic Panel (12/23/2024 10:33 AM EDT) [facility] GLUCOSE 88 65 - 139 mg/dL [facility] Comment: Non-fasting reference interval UREA NITROGEN (BUN) 13 7 - 25 mg/dL [facility] CREATININE 0.96 0.50 - 1.03 mg/dL [facility] EGFR 69 > OR = 60 mL/min/1.7 3m2 [facility] SODIUM 139 135 - 146 mmol/L [facility] POTASSIUM 4.4 3.5 - 5.3 mmol/L [facility] CHLORIDE 102 98 - 110 mmol/L [facility] CARBON DIOXIDE 27 20 - 32 mmol/L [facility] ELECTROLYTE BALANCE 10 7 - 17 mmol/L (calc) [facility] CALCIUM 9.4 8.6 - 10.4 mg/dL [facility] PROTEIN, TOTAL 7.5 6.1 - 8.1 g/dL [facility] ALBUMIN 4.4 3.6 - 5.1 g/dL [facility] BILIRUBIN, TOTAL 0.5 0.2 - 1.2 mg/dL [facility] ALKALINE PHOSPHATASE 71 37 - 153 U/L [facility] AST 21 10 - 35 U/L [facility] ALT 22 6 - 29 U/L [facility] Blood Venous blood specimen / Unknown 12/23/2024 10:33 AM EDT 12/23/2024 10:[address] [facility] - 12/23/2024 11:49 PM EDT FASTING:NO FASTING: NO us Evie Hemphill CLERICAL CAR CHECKER-SOFTWARE ENGINEER WEB SERVICES LAB BLOOD ORDERABLES Diana harrell Result [facility] [address] [facility], [address] [place] [address] * Basic Metabolic Panel (08/25/2022 4:54 AM EST) Glucose 99 74 - 99 mg/dL [facility] Sodium 137 136 - 145 mmol/L [facility] Potassium 3.8 3.5 - 5.3 mmol/L [facility] Chloride 104 98 - 107 mmol/L [facility] Bicarbonate 26 21 - 32 mmol/L [facility] Anion Gap 11 10 - 20 mmol/L [facility] Urea Nitrogen 16 6 - 23 mg/dL [facility] Creatinine 0.76 0.50 - 1.05 mg/dL [facility] GFR Female >90 >90 mL/min/1.7 3m2 [facility] Comment: CALCULATIONS OF ESTIMATED GFR ARE PERFORMED USING THE 2020 CKD-EPI STUDY REFIT EQUATION WITHOUT THE RACE VARIABLE FOR THE IDMS-TRACEABLE CREATININE METHODS. https://jasn.asnjournals.org/content/early//ASN.0551458670 Calcium 8.9 8.6 - 10.3 mg/dL [facility] 08/25/2022 4:54 AM EST 08/25/2022 5:11 AM EST us Kayla Shaw CLERICAL CAR CHECKER-SOFTWARE ENGINEER WEB SERVICES LAB BLOOD ORDERABLES Final R esult [facility] [address] [place] [address] * BI digital DIAG mamm (12/28/2021 9:31 AM EDT) Anatomical Region Laterality Modality Mammography Narrative 12/28/2021 10:21 AM EDT Patient Name: RASHEEDA NICHOLE STUDY: DIGITAL DIAG MAMM BILAT WITH MASON; BREAST ULTRASOUND; 12/28/2021 9:31 am; 12/28/2021 9:59 am ACCESSION NUMBER(S): [id number]; [id number] ORDERING CLINICIAN: BARBARA GARCIA INDICATION: breast lump N63.15: Breast lump on [...] any future breast imaging appointments, please call [phone] ([phone]). Procedure Note Kenan Knight MD - 08/22/2022 Patient Name: RASHEEDA NICHOLE STUDY: DIGITAL DIAG MAMM BILAT WITH MASON; BREAST ULTRASOUND; 12/28/2021 9:31 am; 12/28/2021 9:59 am ACCESSION NUMBER(S): [id number]; [id number] ORDERING CLINICIAN: BARBARA GARCIA INDICATION: breast lump N63.15: Breast lump on [...] any future breast imaging appointments, please call [phone] ([phone]). us Barbara Garcia PA-C IMG BI PROCEDURES Final Resul t * Lipid Panel (05/17/2021 8:38 AM EST) Cholesterol 176 0 - 199 mg/dL [facility] Comment: . AGE DESIRABLE BORDERLINE HIGH HIGH 0-19 Y 0 - 169 170 - 199 >/= 200 20-24 Y 0 - 189 190 - 224 >/= 225 >24 Y 0 - 199 200 - 239 >/= 240 All ranges are based on fasting samples. Specific therapeutic targets will vary based on patient-specific cardiac risk. . Pediatric guidelines reference:Pediatrics 2011, 128(S5). Adult guidelines reference: NCEP ATPIII Guidelines, ARPAN 2001, 258:2486-97 . Venipuncture immediately after or during the administration of Metamizole may lead to falsely low results. Testing should be performed immediately prior to Metamizole dosing. HDL 63.0 mg/dL [facility] Comment: . AGE VERY LOW LOW NORMAL HIGH 0-19 Y < 35 < 40 40-45 ---- 20-24 Y ---- < 40 >45 ---- >24 Y ---- < 40 40-60 >60 . Cholesterol/HDL Ratio 2.8 [facility] Comment: REF VALUES DESIRABLE < 3.4 HIGH RISK > 5.0 LDL 96 0 - 99 mg/dL [facility] Comment: . NEAR BORD AGE DESIRABLE OPTIMAL HIGH HIGH VERY HIGH 0-19 Y 0 - 109 --- 110-129 >/= 130 ---- 20-24 Y 0 - 119 --- 120-159 >/= 160 ---- >24 Y 0 - 99 100-129 130-159 160-189 >/=190 . VLDL 17 0 - 40 mg/dL [facility] Triglycerides 87 0 - 149 mg/dL [facility] Comment: . AGE DESIRABLE BORDERLINE HIGH HIGH VERY HIGH 0 D-90 D 19 - 174 ---- ---- ---- 91 D- 9 Y 0 - 74 75 - 99 >/= 100 ---- 10-19 Y 0 - 89 90 - 129 >/= 130 ---- 20-24 Y 0 - 114 115 - 149 >/= 150 ---- >24 Y 0 - 149 150 - 199 200- 499 >/= 500 . Venipuncture immediately after or during the administration of Metamizole may lead to falsely low results. Testing should be performed immediately prior to Metamizole dosing. 05/17/2021 8:38 AM EST 05/17/2021 4:01 PM EST us Samara Roe MD LAB BLOOD ORDERABLES Final Resul t [facility] * LAB COLOGUARD?? COLON CANCER SCREEN (08/14/2019) Narrative 08/14/2019 Ordered by an unspecified provider. us Onbase Conversion LAB MOLECULAR DIAGNOSTICS CELESTINO BRANTLEY Final Result * CONVERTED GRANTS DIRECTOR CYTOLOGY (05/24/2019 12:00 AM EST) Pathology Report Date of Procedure: 05/24/2019 Pathologist: [facility], Cytology Date Reported: 05/30/2019 Date Received: 05/24/2019 Submitting Physician: SALIMA GILMAN M.D. FINAL CYTOLOGICAL INTERPRETATION A. THINPREP PAP CERVICAL: Specimen adequacy: SATISFACTORY FOR EVALUATION. Quality Indicator: Endocervical/transf ormation zone component is present. Quality Indicator: Partially obscuring inflammation. General Categorization: NEGATIVE FOR INTRAEPITHELIAL LESION OR MALIGNANCY. HIGH RISK HPV TEST RESULT: HPV GENOTYPE 16 NEGATIVE HPV GENOTYPE 18 NEGATIVE HPV GENOTYPE OTHER NEGATIVE Reference Range: Negative Testing for high-risk (HR) type of human papilloma virus (HPV) is performed by the Ashleigh christa HPV Test. The christa HPV Test is a qualitative polymerase chain reaction that amplifies DNA of HPV16, HPV18 and 12 other high-risk HPV types (31, 33, 35, 39, 45, 51, 52, 56, 58, 59, 66, and 68) associated with cervical cancer and its precursor lesions. A positive result indicates the presence of HPV DNA due to one or more of the 14 genotypes: 16, 18, 31, 33, 35, 39, 45, 51, 52, 56, 58, 59, 66, and 68. Negative results indicate HPV DNA concentrations are undetectable or below the pre-set threshold for detection. False negative results may be associated with unoptimized sampling. A negative HR HPV result does not exclude the possibility of future cytologic HSIL or underlying CIN2-3 or cancer. This test is approved for cervical specimens by the [place] Food and Drug Administration. Results of this test should be interpreted in conjunction with the patient's Pap test results. Please refer to ASCCP current guidelines for the use of HPV DNA testing, result interpretation, and patient management. The performance of this test was verified by the [facility] Laboratory at [facility]. The lab is certified under the Clinical Laboratory Amendments of 1988 (CLIA 88) as qualified to perform high complexity clinical laboratory testing. This specimen has been analyzed by the [employer] Imaging System ([employer] an automated imaging and review system, which assists the laboratory in evaluating cells on ThinPrep Pap tests. Following automated imaging, selected evangelista from every slide were reviewed by a abrasive wheel molder and/or pathologist. Electronically Signed Out By [facility], Cytology//NKM/SLD By the signature on this report, the individual or group listed as making the Final Interpretation/Diag nosis certifies that they have reviewed this case. Educational Note: Cervical cytology is a screening procedure primarily for squamous cancers and precursors and has associated false-negative and false-positive results as evidenced by published data. Your patient's test should be interpreted in this context, together with patient's history and clinical findings. Regular sampling and follow-up of unexplained clinical signs and symptoms are recommended to minimize false negative results. Clinical History Date of Last Menstrual Period: 03/21/2019 Other Clinical Conditions: HPV Test for All Interpretations - Include HPV Genotype Source of Specimen A: THINPREP PAP CERVICAL [facility] Department of Pathology [address] [place] [address] COPATH CONVERTED FINAL DIAGNOSIS A. THINPREP PAP CERVICAL: Specimen adequacy: SATISFACTORY FOR EVALUATION. Quality Indicator: Endocervical/transf ormation zone component is present. Quality Indicator: Partially obscuring inflammation. General Categorization: NEGATIVE FOR INTRAEPITHELIAL LESION OR MALIGNANCY. HIGH RISK HPV TEST RESULT: HPV GENOTYPE 16 NEGATIVE HPV GENOTYPE 18 NEGATIVE HPV GENOTYPE OTHER NEGATIVE Reference Range: Negative [facility] COPATH CONVERTED DIAGNOSIS COMMENT Testing for high-risk (HR) type of human papilloma virus (HPV) is performed by the Ashleigh christa HPV Test. The christa HPV Test is a qualitative polymerase chain reaction that amplifies DNA of HPV16, HPV18 and 12 other high-risk HPV types (31, 33, 35, 39, 45, 51, 52, 56, 58, 59, 66, and 68) associated with cervical cancer and its precursor lesions. A positive result indicates the presence of HPV DNA due to one or more of the 14 genotypes: 16, 18, 31, 33, 35, 39, 45, 51, 52, 56, 58, 59, 66, and 68. Negative results indicate HPV DNA concentrations are undetectable or below the pre-set threshold for detection. False negative results may be associated with unoptimized sampling. A negative HR HPV result does not exclude the possibility of future cytologic HSIL or underlying CIN2-3 or cancer. This test is approved for cervical specimens by the US Food and Drug Administration. Results of this test should be interpreted in conjunction with the patient's Pap test results. Please refer to ASCCP current guidelines for the use of HPV DNA testing, result interpretation, and patient management. The performance of this test was verified by the [facility] Laboratory at [facility]. The lab is certified under the Clinical Laboratory Amendments of 1988 (CLIA 88) as qualified to perform high complexity clinical laboratory testing. This specimen has been analyzed by the [employer] Imaging System ([employer] an automated imaging and review system, which assists the laboratory in evaluating cells on ThinPrep Pap tests. Following automated imaging, selected evangelista from every slide were reviewed by a abrasive wheel molder and/or pathologist. [facility] CONVERTED FINAL REPORT PDF LINK TO COPY AND PASTE [id number] [facility] TPP CERVICAL- Include Genotype 05/24/2019 05/24/2019 11:4 1 AM EST us Salima Gilman MD LAB CYTOLOGY ORDERABLES Final Result [facility] [address] [place] [address] from Last 3 Months or Most Recently Relevant to Health Maintenance [facility] Care Teams Associate Director Data & Analytics Relationship Specialty Start Date End Date Micah Diaz DO [address] [place] [address] [place] [address] [place] [address] PCP - General Family Medicine 04/03/24 Federico Villatoro MD [address] [place] [id number] [employer] [facility] 07/24/23
--- OUTSIDE RECORDS SUMMARY | 2025-01-09 08:53 | XMS_ITS | Clinical Summary ---
Author Organization [facility] Address [address] [facility], [address] [place] [address] Care Team Providers Care Pit Furnace Melter Name Role Phone Micah Diaz DO Primary Care Provider [phone] Medications tolterodine (DETROL LA) 4 MG extended release capsule Take 1 capsule by mouth daily 90 capsule 1 05/02/2019 Active Active Problems Problem Noted Date Diagnosed Date Iron deficiency anemia 06/02/2015 Sleep-disordered breathing Social History Tobacco Use Types Packs/Day Years Used Date Smoking Tobacco: Never Smokeless Tobacco: Never Tobacco Cessation:Counseling Given: Yes Alcohol Use Standard Drinks/Week Comments No 0 (1 standard drink = 0.6 oz pur e alcohol) PHQ-2 Answer Date Recorded PHQ-2 Score 0 11/04/2018 Comments No Sex and Gender Information Value Date Recorded Sex Assigned at Female 02/15/2024 1:12 PM EDT Legal Sex Female 11:07 PM EST Gender Identity Female 02/15/2024 1:12 PM EDT Sexual Orientation Not on file Last Filed Vital Signs Vital Sign Reading Time Taken Comments Blood Pressure 100/70 01/27/2019 9:29 AM EDT Pulse 83 01/27/2019 9:29 AM EDT Temperature 36.9 C (98.5 F) 01/27/2019 9:29 AM EDT Respiratory Rate 10 11/04/2018 8:48 AM EDT Oxygen Saturation 98% 01/27/2019 9:29 AM EDT Inhaled Oxygen Concentration - - Weight 66.2 kg (146 lb) 01/27/2019 9:29 AM EDT Height 152.4 cm (5') 01/27/2019 9:29 AM EDT Body Mass Index 28.51 01/27/2019 9:29 AM EDT Plan of Treatment Health Maintenance Due Date Last Done Comments Depression Screen 1980 HIV screen 10/03/1983 Hepatitis C screen 1986 DTaP/Tdap/Td vaccine (1 - Tdap) 10/03/1987 Hepatitis B vaccine (1 of 3 - 19+ 3-dose series) 10/03/1987 HPV (without or with Pap) 1998 Colonoscopy 2013 Colorectal Cancer Screen 2013 FIT/FOBT: Average risk 2013 Fecal-DNA (Cologuard): Average risk 2013 Sigmoidoscopy/CT colonography 2013 Cervical cancer screen 05/19/2018 Pap smear 05/19/2018 05/19/2015 Pneumococcal 50+ years Vaccine (1 of 1 - PCV) 2018 Shingles vaccine (1 of 2) 2018 Lipids 05/22/2021 05/22/2016, 05/19/2015 Breast cancer screen 06/09/2022 06/09/2020, 12/03/2017, 06/01/2015, Additional history exists COVID-19 Vaccine ( season) 2024 08/05/2021, 06/29/2021 Flu vaccine (#1) 01/16/2025 Hepatitis A vaccine Aged Out No longe r eligible based on patient's age to complete this topic Hib vaccine Aged Out No longer eligi ble based on patient's age to complete this topic Meningococcal (ACWY) vaccine Aged Out No longer eligible based on patient's age to complete this topic Meningococcal B vaccine Aged Out No l onger eligible based on patient's age to complete this topic Polio vaccine Aged Out No longer elig ible based on patient's age to complete this topic Procedures Procedure Name Priority Date/Time Associated Diagnosis Comments HM MAMMOGRAPHY Routine 06/09/2020 LIPID PANEL Routine 05/22/2016 4:06 PM EST Routine general medical examination at a health care facility PAP SMEAR Routine 05/19/2015 10:23 AM EST from Last 3 Months or Most Recently Relevant to Health Maintenance Results * HM MAMMOGRAPHY (06/09/2020) Mammography, External Anatomical Region Laterality Modality Other Historical Provider HEALTH MAINTENANCE Edited Result - Final * (ABNORMAL) Lipid Panel (05/22/2016 4:06 PM EST) Cholesterol, Total 178 0 - 199 mg/dL 05/22/2016 9:20 PM EST [facility] Comment:ATP III Cholesterol classification is Desirable. Triglycerides 98 0 - 200 mg/dL 05/22/2016 9:20 PM EST [facility] Comment:ATP III Triglyceride s Classification is Normal. HDL 66(H) 40 - 59 mg/dL 05/22/2016 9:20 PM EST [facility] Comment: ATP III HDL Cholesterol Classification is high. Expected Values: Males: >55 = No Risk 35-55 = Moderate Risk <35 = High Risk Females: >65 = No Risk 45-65 = Moderate Risk <45 = High Risk NCEP Guidelines: Third Report October 2000 >59 = negative risk factor for CHD <40 = major risk factor for CHD LDL Calculated 92 0 - 129 mg/dL 05/22/2016 9:20 PM EST [facility] Comment:ATP III LDL Classifi cation is Optimal. BLOOD SPECIMEN / Unknown 05/22/2016 4:06 PM EST 05/22/2016 8:55 PM EST Salima Gilman MD CHEMISTRY ORDERABLES Final Result [facility] * PAP SMEAR (05/19/2015 10:23 AM EST) 05/19/2015 10:2 3 AM EST 05/21/2015 8:42 AM EST Narrative [facility] - 06/02/2015 11:59 AM EST [place] [id number] FINAL CYTOLOGY PAP REPORT Patient RASHEEDA NICHOLE [id number] Name: No: 90 GENERAL CATEGORIZATION: Negative for Intraepithelial Lesion or Malignancy SPECIMEN ADEQUACY: Satisfactory for Evaluation. Endocervical cells/transformation zone component present. COMMENTS: Cytology specimen processing and diagnostic testing performed at [facility]. Lab Order#: [id number] Test Name Collected D&T Result HPV High Risk 05/19/2015 Negative Specimen: SUREPATH LIQUID BASE ROUTINE History: Source: SurePath Site: Cervical History: Previous abnormal smear? None given History of CA? None given HPV TESTING DISCLAIMER: The performance characteristics of HPV testing using the SUREPATH sample medium were validated by [facility]. The FDA has not approved SUREPATH medium for HPV testing as these may produce false-negative results under certain conditions, eq. when specimens exceed stability requirements. CPT: Technical: 53602 X1 Screened by: CLAY ACEVEDO(ASCP) CLAY SANCHES(ASCP) 06/02/2015 Electronically signed out by Page 1 of 1 Salima Gilman MD PATHOLOGY/CYTOLOGY ORDERAB LES Final Result [facility] from Last 3 Months or Most Recently Relevant to Health Maintenance Insurance [facility] OUT OF STATE [employer] BCBS OUT OF STATE Advance Directives * Full Code (Latest Code Status on File) Date Activated Date Inactivated Comments 12/06/2016 9:45 AM 12/06/2016 7:47 PM Care Teams Pit Furnace Melter Relationship Specialty Start Date End Date Micah Diaz DO [address] [place] [address] PCP - General Family Medicine 02/26/24
--- OUTSIDE RECORDS SUMMARY | 2025-01-09 08:53 | XMS_ITS | Encounter Summary ---
Author Organization [facility] Address [address] [facility], [address] [place] [address] Care Team Providers Care Production Mechanic Name Role Phone Micah Diaz DO Primary Care Provider [phone] Encounter Details Date Type Department Care Team (Late st Contact Info) Description 02/07/2024 Transcribe Orders [facility] [address] [place] [address] Basil Correa, JOSH [address] [facility] [address] [place], [place] [id number] Social History Tobacco Use Types Packs/Day Years Used Date Smoking Tobacco: Never Assessed PHQ-2 Answer Date Recorded PHQ-2 Score 0 11/04/2018 Comments No Sex and Gender Information Value Date Recorded Sex Assigned at Female 02/15/2024 1:12 PM EDT Legal Sex Female 11:07 PM EST Gender Identity Female 02/15/2024 1:12 PM EDT Sexual Orientation Not on file documented as of this encounter Plan of Treatment Not on file documented as of this encounter Visit Diagnoses Not on filedocumented in this encounter Care Teams Production Mechanic Relationship Specialty Start Date End Date Micah Diaz DO [address] [place] [address] PCP - General Family Medicine 02/26/24 documented as of this encounter
--- OUTSIDE RECORDS SUMMARY | 2025-01-09 08:53 | XMS_ITS | Encounter Summary ---
Author Organization [facility] Address [address] [place] [address] Phone Care Team Providers Care Mileage Clerk Name Role Phone Salima Gilman MD Unavailable [phone] Kayla Hyatt DO Primary Care Provider Kayla Hyatt DO Primary Care Provider [phone] Federico Villatoro MD Unavailable [phone] Micah Diaz DO Primary Care Provider + Encounter Details Date Type Department Care Team (Late st Contact Info) Description 07/26/2021 Orders Only [facility] [address] [place] [address] Conversion, Onbase Social History Tobacco Use Types [...] Description 04/06/2025 9:15 AM EDT Office Visit [facility] [address] [phone] Federico Villatoro MD [address] [address] Scheduled Orders Name Type Priority Associated Diagnoses Orde r Schedule SLEEP STUDY ORDER - ONBASE SCAN Sleep Center Ordered: 022 documented as of this encounter Visit Diagnoses Not on filedocumented in this encounter Care Teams Mileage Clerk Relationship Specialty Start Date End Date Salima Gilman MD [address] [place] [address] [address] [place] [address] PCP - [facility] PCP 06/18/21 03/17/22 Kayla Hyatt DO [address] [place] [address] PCP - General 08/18/22 04/02/24 Kayla Hyatt DO [address] [place] [address] PCP - General 09/03/20 08/17/22 Micah Diaz DO [address] [place] [address] [place] [address] PCP - General Family Medicine 04/03/24 Federico Villatoro MD [address] [place] [id number] Ironing Worker Cardiology 07/24/23 documented as of this encounter
--- OUTSIDE RECORDS SUMMARY | 2025-01-09 08:53 | XMS_ITS | Encounter Summary ---
Author Organization [facility] Address [address] [facility], [address] [place] [address] Care Team Providers Care Silverware Assembler Name Role Phone Micah Diaz DO Primary Care Provider [phone] Encounter Details Date Type Department Care Team (Late st Contact Info) Description 02/08/2024 Transcribe Orders [facility] Pre [facility] [address] [place] [address] Basil Correa, DPMary Ann [address] [facility] [address] [place] [address] Instability of joint (Primary Dx); Osteoarthritis, unspecified osteoarthritis type, unspecified site Social History Tobacco Use Types Packs/Day Years [...] documented as of this encounter Visit Diagnoses Diagnosis Instability of joint- Primary Other joint derangement, not elsewhere classified, unspecified site Osteoarthritis, unspecified osteoarthritis type, unspecified site documented in this encounter Care Teams Silverware Assembler Relationship Specialty Start Date End Date Micah Diaz DO [address] [place] [address] PCP - General Family Medicine 02/26/24 documented as of this encounter
--- OUTSIDE RECORDS SUMMARY | 2025-01-09 08:53 | XMS_ITS | Encounter Summary ---
Author Organization [facility] Address [address] [facility], [address] [place] [address] Care Team Providers Care Parts Runner Name Role Phone Micah Diaz DO Primary Care Provider [phone] Reason for Referral * Imaging (Routine) - Closed Specialty Diagnoses / Procedures Referred By Contbenja t Referred To Contact Radiology Diagnoses Post-traumatic osteoarthritis, right ankle and foot Procedures CT ANKLE RIGHT WO CONTRAST Basil Correa DPM [address] [facility] [address] [place] [address] Phone: tel: fax: Referral ID Status Reason Start Date Expiration Date Visits Re quested Visits Authorized [id number] Closed 04/23/2024 06/07/2024 1 1 Encounter Details Date Type Department Care Team (Late st Contact Info) Description 04/28/2024 Transcribe Orders Therese Messina Pre Access [address] [place] [id number] Basil Correa DPM [address] [facility] [address] [place] [address] Post-traumatic osteoarthritis, right ankle and foot (Primary Dx) Social History Tobacco Use Types Packs/Day Years Used Date Smoking Tobacco: Never Smokeless Tobacco: Never Alcohol Use Standard Drinks/Week Comments No 0 [...] on file documented as of this encounter Results * CT ANKLE RIGHT WO CONTRAST (05/09/2024 9:02 AM EST) Anatomical Region Laterality Modality Leg, Ankle, Foot Computed Tomogr aphy 05/09/2024 9:46 AM EST Impressions 05/09/2024 9:50 AM EST 1. Postsurgical fusion of the posterior facet of the subtalar articulation, with bridging sclerosis which has slightly progressed since January 2024 2. Mild tibiotalar osteoarthrosis. Narrative 05/09/2024 9:50 AM EST EXAMINATION: CT OF THE RIGHT ANKLE WITHOUT [...] talar dome. The ankle mortise is intact. Procedure Note Rene Stearns MD - 05/09/2024 EXAMINATION: CT OF THE RIGHT ANKLE WITHOUT CONTRAST 05/09/2024 8:46 am TECHNIQUE: CT of the right ankle was performed without the administration ofintravenous contrast. Multiplanar reformatted images are provided for review.Automated exposure control, iterative reconstruction, and/or weight based adjustmentof the mA/kV was utilized to reduce the radiation dose to as low asreasonably achievable. COMPARISON: February 14 HISTORY ORDERING SYSTEM PROVIDED HISTORY: Post-traumatic osteoarthritis, rightankle and foot TECHNOLOGIST PROVIDED HISTORY: What reading provider will be dictating this exam?->CRC FINDINGS: Bones: 3 screws traverse the posterior facet of the subtalararticulation, which demonstrates somewhat advanced narrowing, subchondral sclerosis,and mild osteophyte formation. Hardware alignment is normal. A largepresumed ghost track is seen in the distal tibial metadiaphysis. There is mild generalized osteopenia Soft Tissue: No significant soft tissue edema or fluid collections. Joint: Mild tibiotalar narrowing with subchondral cysts in the talardome. The ankle mortise is intact. IMPRESSION: 1. Postsurgical fusion of the posterior facet of the subtalararticulation, with bridging sclerosis which has slightly progressed since January 2024 2. Mild tibiotalar osteoarthrosis. us Basil Correa DPM IMG CT ORDERABLES Final R esult documented in this encounter Visit Diagnoses Diagnosis Post-traumatic osteoarthritis, right ankle and foot- Primary Post-traumatic osteoarthritis, right ankle and foot documented in this encounter Care Teams Parts Runner Relationship Specialty Start Date End Date Micah Diaz DO [address] [place] [address] PCP - General Family Medicine 02/26/24 documented as of this encounter
--- OUTSIDE RECORDS SUMMARY | 2025-01-09 08:53 | XMS_ITS | Encounter Summary ---
Author Organization [facility] Address [address] [facility], [address] [place] [address] Care Team Providers Care Speech Therapy Teacher Name Role Phone Micah Diaz DO Primary Care Provider [phone] Encounter Details Date Type Department Care Team (Late st Contact Info) Description 02/26/2024 Transcribe Orders [facility] [place] [address] [place] [address] Mitesh Murray MD [address] [place] [phone] Social History Tobacco Use Types Packs/Day Years [...] on filedocumented in this encounter Care Teams Speech Therapy Teacher Relationship Specialty Start Date End Date Micah Diaz DO [address] [place] [address] PCP - General Family Medicine 02/26/24 documented as of this encounter
--- OUTSIDE RECORDS SUMMARY | 2025-01-09 08:53 | XMS_ITS | Encounter Summary ---
Author Organization [facility] Address [address] [facility] [place] [address] Care Team Providers Care Audiometrist Name Role Phone Unallocated, Noms Provider Primary Care Provi kamar Encounter Details Date Type Department Care Team (Late st Contact Info) Description 12/31/2024 Results Follow-Up [facility] [address] [address] Melissa Newman, [employer] [address] [place] [address] Social History Tobacco Use Types Packs/Day Years Used Date Smoking Tobacco: Never Smokeless Tobacco: Never Alcohol Use Standard Drinks/Week Comments Never 0 [...] on file Sexual Orientation Not on file documented as of this encounter Miscellaneous Notes * Telephone Encounter - Michelle Cox LPN - 01/01/2025 9:21 AM EDT Patient notified. * Telephone Encounter - Michelle Cox LPN - 01/01/2025 9:21 AM EDT ----- Message from Melissa Newman sent at 12/31/2024 8:41 AM EDT ----- Please let pt know that her pap did not have enough cells to process the pap, but the HPV test was negative. We can repeat the pap in 1 year due to the negative HPV test. ----- Message ----- From: Education Everytime Lab Results In Sent: 12/31/2024 8:35 AM EDT To: Melissa Newman NP * Result Encounter Note - Melissa Newman NP - 12/31/2024 8:41 AM EDT Please let pt know that her pap did not have enough cells to process the pap, but the HPV test was negative. We can repeat the pap in 1 year due to the negative HPV test. documented in this encounter Plan of Treatment Upcoming Encounters Date Type Department Care Team (Late st Contact Info) Description 12/31/2025 8:00 AM EDT Office Visit [facility] [address] [phone] Melissa Newman NP [address] [place] [address] documented as of this encounter Visit Diagnoses Not on filedocumented in this encounter Care Teams Audiometrist Relationship Specialty Start Date End Date Unallocated, Noms MD [address] [address] PCP - General Family Medicine 09/13/23 documented as of this encounter
--- OUTSIDE RECORDS SUMMARY | 2025-01-09 08:53 | XMS_ITS | Encounter Summary ---
Author Organization [facility] Address [address] [facility], [address] [place] [address] Care Team Providers Care Dress Cap Maker Name Role Phone Micah Diaz DO Primary Care Provider [phone] Reason for Referral * Imaging (Routine) - Closed Specialty Diagnoses / Procedures Referred By Contac t Referred To Contact Radiology Diagnoses Instability of joint Osteoarthritis, unspecified osteoarthritis type, unspecified site Procedures CT FOOT RIGHT WO CONTRAST Basil Correa DPM [address] [facility] [address] [place] [address] Phone: tel: fax: Referral ID Status Reason Start Date Expiration Date Visits Re quested Visits Authorized [id number] Closed 02/05/2024 03/21/2024 1 1 Encounter Details Date Type Department Care Team (Late st Contact Info) Description 02/08/2024 Transcribe Orders Therese Messina Pre Access [address] [place], [place] [phone] Basil Correa DPM [address] [address] Instability of joint (Primary Dx); Osteoarthritis, unspecified [...] as of this encounter Results * CT FOOT RIGHT WO CONTRAST (02/15/2024 1:23 PM EDT) Anatomical Region Laterality Modality Hip, Thigh, Knee Computed Tomogr aphy 02/19/2024 9:09 AM EDT Impressions 02/19/2024 9:14 AM EDT 1. Postsurgical changes in the talocalcaneal joint, as described above. Undulation and chronic irregularity of the posterior facet of the subtalar articulation, with subchondral sclerosis and small osteophytes. 2. Mild medial tibiotalar osteoarthritic narrowing. 3. Somewhat advanced lateral soft tissue swelling, at the level of the ankle. Narrative 02/19/2024 9:14 AM EDT EXAMINATION: CT OF THE RIGHT FOOT WITHOUT [...] advanced lateral soft tissue swelling is seen. Procedure Note Rene Stearns MD - 02/19/2024 EXAMINATION: CT OF THE RIGHT FOOT WITHOUT CONTRAST 02/15/2024 1:22 pm TECHNIQUE: CT of the right foot was performed without the administration ofintravenous contrast. Multiplanar reformatted images are provided for review.Automated exposure control, iterative reconstruction, and/or weight based adjustmentof the mA/kV was utilized to reduce the radiation dose to as low asreasonably achievable. COMPARISON: None. HISTORY ORDERING SYSTEM PROVIDED HISTORY: Instability of joint, Osteoarthritis, unspecified osteoarthritis type, unspecified site TECHNOLOGIST PROVIDED HISTORY: What reading provider will be dictating this exam?->CRC FINDINGS: A screw is seen in the mid aspect of the talocalcaneal joint, traversingthe posterior aspect of the sinus tarsi. 2 more posterior screws traversethe posterior facet of the subtalar articulation, which demonstratesundulation and chronic irregularity, with subchondral sclerosis and smallosteophytes. No cystic changes observed. Slight osseous protuberance dorsal aspect ofthe new mid navicular. Mild medial tibiotalar osteoarthritic narrowing is observed. A large ghost tract is seen in the distal tibia. A clamp is seen at the dorsal aspect of the proximal 1st metatarsal. Tarsometatarsal alignment is normal. 1Valgus alignment of the 1stthrough 4th metatarsophalangeal articulations are seen, without significantsecondary arthritic change. Somewhat advanced lateral soft tissue swelling isseen. IMPRESSION: 1. Postsurgical changes in the talocalcaneal joint, as described above. Undulation and chronic irregularity of the posterior facet of thesubtalar articulation, with subchondral sclerosis and small osteophytes. 2. Mild medial tibiotalar osteoarthritic narrowing. 3. Somewhat advanced lateral soft tissue swelling, at the level of theankle. Basil Correa DPM IMG CT ORDERABLES Final R esult documented in this encounter Visit Diagnoses Diagnosis Instability of joint- Primary Other joint derangement, not elsewhere classified, unspecified site Osteoarthritis, unspecified osteoarthritis type, unspecified site Instability of joint Other joint derangement, not elsewhere classified, unspecified site Osteoarthritis, unspecified osteoarthritis type, unspecified site documented in this encounter Care Teams Dress Cap Maker Relationship Specialty Start Date End Date Micah Diaz DO [address] [place] [address] PCP - General Family Medicine 02/26/24 documented as of this encounter
--- OUTSIDE RECORDS SUMMARY | 2025-01-09 08:53 | XMS_ITS | Encounter Summary ---
Author Organization [facility] Address [address], [address] [place] [address] Care Team Providers Care Type Bar And Segment Assembler Name Role Phone Micah Diaz DO Primary Care Provider [phone] Reason for Referral * Imaging (Routine) - Pending Review Specialty Diagnoses / Procedures Referred By Contbenja t Referred To Contact Radiology Diagnoses Other instability, right ankle Post-traumatic osteoarthritis, right ankle and foot Procedures DEXA BONE DENSITY AXIAL SKELETON Basil Correa DPM [address] [address] Phone: tel: fax: Referral ID Status Reason Start Date Expiration Date V isits Requested Visits Authorized [id number] Pending Review 02/26/2024 02/25/2025 1 1 Encounter Details Date Type Department Care Team (Late st Contact Info) Description 02/26/2024 Transcribe Orders Therese Messina [facility] [address] [place] [address] Basil Correa DPM [address] [address] Other instability, right ankle (Primary Dx); Post-traumatic osteoarthritis, right ankle and foot Social History Tobacco Use Types Packs/Day Years [...] documented as of this encounter Results * DEXA BONE DENSITY AXIAL SKELETON (03/14/2024 8:25 AM EDT) Anatomical Region Laterality Modality Head, C-spine, T-spine, L-spine, Chest Other 03/14/2024 11:5 4 AM EDT Impressions 03/14/2024 11:56 AM EDT Osteopenia by WHO criteria. RECOMMENDATIONS: 1. All [...] have additional risk factors. Template code: [id number]_[id number] Narrative 03/14/2024 11:56 AM EDT EXAMINATION: BONE DENSITOMETRY 03/14/2024 8:08 am TECHNIQUE: A bone density dual x-ray absorptiometry (DXA) scan was performed of the lumbar spine and bilateral hips on a [employer] DEXA system. COMPARISON: None. HISTORY: ORDERING SYSTEM [...] Major osteoporotic fracture: 10.6% Hip fracture: 0.8% Procedure Note Ronald Espinoza DO - 03/14/2024 EXAMINATION: BONE DENSITOMETRY 03/14/2024 8:08 am TECHNIQUE: A bone density dual x-ray absorptiometry (DXA) scan was performed of the lumbar spine and bilateral hips on a [employer] DEXAsystem. COMPARISON: None. HISTORY: ORDERING SYSTEM PROVIDED HISTORY: [...] Consider FDA-approved medical therapies in postmenopausal women andmen aged 50 years and older, based on [...] of a hip fracture greater than or equalto 3% or a 10-year probability of a major osteoporosis-related fracturegreater than or equal to 20% based on FRAX calculation. - Clinician judgment and/or patient preferences may indicate treatmentfor people with 10-year fracture probabilities above or below these levels - Further guidance on treatment can be found at the NationalOsteoporosis Foundation's website bonesource.org. 3. Patients with diagnosis of osteoporosis or at high risk for fracture should have regular bone mineral density tests. For patients eligiblefor Medicare, routine testing is allowed once every 2 years. The testing frequency can be increased to one year for patients who have rapidly progressing disease, those who are receiving or discontinuing medicaltherapy to restore bone mass or have additional risk factors. Template code: RPnmNSD_DX_dxa Basil Correa DPM IMG DEXA ORDERABLES Final Result documented in this encounter Visit Diagnoses Diagnosis Other instability, right ankle- Primary Post-traumatic osteoarthritis, right ankle and foot Other instability, right ankle Post-traumatic osteoarthritis, right ankle and foot documented in this encounter Care Teams Type Bar And Segment Assembler Relationship Specialty Start Date End Date Micah Diaz DO [address] [place] [address] PCP - General Family Medicine 02/26/24 documented as of this encounter
--- NOTE | 2025-01-09 08:55 | XR_ITS ---
[facility] [id number] Patient Name: NAN HANNA MRN: [id number] date: 1970 Sex: F Assigned Patient Location: [facility] Current Patient Location: [facility] Accession/Order Number: [id number] Exam Date: 01/09/2025 10:13 Report Date: 01/09/2025 10:14 At the request of: CYNDI CHEW DPMary Ann Procedure: XR ankle RT min 3V RIGHT ANKLE - 3 views CLINICAL HISTORY: Postop imaging right ankle COMPARISON: Right foot 07/18/2024 FINDINGS: Mild degenerative changes involving the ankle mortise. Ankle mortise appears intact. Mild soft tissue swelling. No acute bony process is seen involving the ankle. Partially visualized hardware is seen involving the hindfoot and forefoot without definitive hardware complication. XR/XR ankle RT min 3V IMPRESSION: MILD SOFT TISSUE SWELLING AND DEGENERATIVE CHANGE INVOLVING THE ANKLE MORTISE. NO ACUTE BONY PROCESS. Impression dictated by: Sam Lozano Jr., D.O. 01/09/2025 10:14 AM Dictation Location: [employer] Electronically authenticated by: [id number] Y Date: 01/09/2025 10:14
== END 2025-01-09 08:48 | disposition home or self-care (01) ==
LOC: RAD 08:51
PROVIDERS: Visit Provider Podiatrist Foot & Ankle Surgery
DX: M25.571 Pain in right ankle and joints of right foot (principal); M25.471 Effusion, right ankle
CPT/HCPCS: 73610